=== PATIENT | male | born 1945 | race Caucasian/White ===

== ENCOUNTER 2017-04-23 20:57 | Inpatient (IN) | payer OTHER ==
[~2017-04-23] VITALS: Ht 177.8 cm; Wt 97.8 kg
[~2017-04-23 20:57] MED LIST: ASPI81TA28 PO; ATOR-26 PO; CALC500C70 PO; CITA40TA4 PO; CLOP1TAB15 PO; DILT240C48 PO; FERR1TAB23 PO; FRS/40 PO; GABA-113 PO; HYDR-4717 PO; ISOS60TA25 PO; LOSA1TAB PO; OXYC-57 PO; PANT40TA PO; TERB1CRE TD; TRIA0.1C20 TD
[2017-04-23] MEDS ORDERED: SODIUM CHLORIDE 0.9% 1000ML 1,000 ML IV STA (21:15)
[2017-04-23 21:44] LABS: BASO % 0.3 %; BASO ABS # 0.02 K/uL (0-0.2); EOS % 5.2 %; HEMATOCRIT 26.2 % (42-52); IG% 0.4 %; LYMPH % 6.5 %; LYMPH ABS # 0.47 K/uL (1.2-3.4); MEAN CELL VOLUME 89.7 fL (80-100); MEAN CORPUSCULAR HEMOGLOBIN 29.5 pg (25-34); MEAN CORPUSCULAR HGB CONC 32.8 g/dl (32-36); MEAN PLATELET VOLUME 8.7 fL (7.4-10.4); MONO % 8.1 %; NEUT % 79.5 %; PLATELET COUNT 332 K/uL (130-400); RED BLOOD COUNT 2.92 M/uL (4.7-6.1); WHITE BLOOD COUNT 7.26 K/uL (4.8-10.8)
--- NOTE | 2017-04-23 21:50 | DIAGNOSTIC IMAGING REPORT ---
CHEST ONE VIEW PORTABLE CLINICAL HISTORY: FATIGUE, DYSPNEA COMPARISON STUDY: No previous studies for comparison. FINDINGS: Lung volumes are at the lower limits of normal. There is right infrahilar fullness. Cardiac size is normal. There is no evidence of pulmonary edema. No pneumothorax or pleural effusion is present. IMPRESSION: Right hilar/infrahilar fullness. This is likely due to normal structures however PA and lateral chest radiographs are recommended to exclude airspace disease or a nodule. Electronically signed by: Virgil Pinzon M.D. 04/23/2017 9:49 PM Dictated Date/Time: 04/23/2017 9:47 PM
[2017-04-23] MEDS ORDERED: CHOL1TAB12 PO (21:59)
[2017-04-23 22:02] LABS: INR 1.1 (0.9-1.1); PARTIAL THROMBOPLASTIN RATIO 1.5; PROTHROMBIN TIME (PATIENT) 11.4 SECONDS (9.0-12.0)
[2017-04-23 22:05] LABS: BUN/CREATININE RATIO 14.7 (10-20); CALCIUM 8.4 mg/dl (8.5-10.1); CREATININE 3.7 mg/dl (0.60-1.40); MAGNESIUM 2.2 mg/dl (1.8-2.4)
--- NOTE | 2017-04-23 22:07 | EMERGENCY ROOM VISIT NOTE ---
History First contact with patient: 21:06 Chief Complaint: REFERRED BY DOCTOR Stated Complaint: KIDNEY FAILURE, TIREDNESS,ANEMIC History of Present Illness The patient is a 72 year old male who presents to the Emergency Room via private vehicle accompanied by family with complaints of "kidney failure, tiredness, anemic-referred by ". The patient states that For the past 2 weeks he has felt very tired, easily fatigued, easily winded with simple exercises, and shortness of breath. His family notes that he isn't falling asleep a lot. He also feels as though his legs are very heavy. There is decreased appetite. He denies any bleeding from orifices. He denies any chest pain. He is on Plavix. Patient also states that his family doctor states his heart was not beating right, and was to follow-up with Dr. Osullivan in the near future. He states that he also has a history of kidney failure. Review of Systems A complete 10-point Review of Systems was discussed with the patient, with pertinent positives and negatives listed in the History of Present Illness. All remaining Review of Systems questions can be considered negative unless otherwise specified. Past Medical/Surgical History Medical Problems: (1) Anemia (2) ARF (acute renal failure) Heart disease, high blood pressure, kidney disease, skin problems, ulcers, spine surgery, heart stent placement. Family History High blood pressure, cancer, lung disease, kidney disease or stones. Social History Smoking Status: Never Smoker Social History: Patient was at home with . Admits to tobacco use and denies alcohol use. Current/Historical Medications Scheduled Aspirin (Aspirin Ec), 81 MG PO NOON Atorvastatin (Lipitor), 80 MG PO HS Calcium/Vitamin D (Os-Naseem 500 Plus D), 1 TAB PO QAM Cholecalciferol (Vitamin D3), 3,000 UNITS PO DAILY Citalopram (Citalopram Hydrobromide), 40 MG PO QAM Clopidogrel (Plavix), 75 MG PO EVENING MEAL Diltiazem Hcl Coated Beads (Cartia Xt), 240 MG PO QAM Ferrous Sulfate (Iron), 325 MG PO QAM Furosemide (Lasix), 40 MG PO QAM Gabapentin (Neurontin), 300 MG PO BID Hydralazine Hcl (Apresoline), 50 MG PO TID Isosorbide Mononitrate Ext Rel (Imdur Ext Rel), 60 MG PO QAM Scheduled PRN Oxycodone/Acetaminophen 5MG/325MG (Percocet 5MG/325MG), 1-2 TABLETS PO Q4H PRN for Pain Pantoprazole (Protonix), 40 MG PO DAILY PRN for GI Upset Terbinafine Hcl (Topical) (Terbinafine Hcl), TD DAILY PRN for Itching Triamcinolone Acet 0.1% (Aristocort 0.1%), TD DAILY PRN for Itching Allergies Coded Allergies: No Known Drug Allergy (Verified Allergy, Unknown, NKDA, 12/13/16) Black Pepper (Verified Adverse Reaction, Unknown, SNEEZING, 12/13/16) Physical Exam Vital Signs Date Time Temp Pulse Resp B/P (MAP) Pulse Ox O2 Delivery O2 Flow Rate FiO2 04/24/17 00:35 78 20 143/76 97 Room Air 04/24/17 00:06 143/76 04/23/17 22:45 81 96 04/23/17 22:40 81 97 04/23/17 22:10 85 19 96 04/23/17 22:01 131/65 04/23/17 21:40 84 26 95 04/23/17 21:35 141/65 04/23/17 21:27 90 25 95 04/23/17 21:26 90 04/23/17 21:23 95 Room Air 04/23/17 21:00 36.9 99 22 138/77 95 Room Air Physical Exam VITAL SIGNS - Vital signs and nursing notes were reviewed. Patient is afebrile , blood pressure 138/77, heart rate of 99, and is saturating well on room air 95 %. GENERAL -72-year-old male appearing his stated age who is in no acute distress. Communicates well with provider and answers questions appropriately. SKIN - Without rashes. No petechial rashes. HEAD - NC/AT. EYES - PERRL with EOMI bilaterally. Sclera anicteric. Palpebral conjunctiva pink and moist with no injection noted. EARS - No deformities of external structures noted on gross examination bilaterally. No pain elicited with palpation of the tragus bilaterally. External auditory canals without discharge or otorrhea. Tympanic membranes pearly manzanares without retraction or bulging. No fluid or purulent material visualized behind the TM. Handle of malleus, umbo, cone of light, pars tensa/ flaccid all easily visualized. NOSE - Midline and without cyanosis. No epistaxis or purulent drainage noted. Septum midline without deviation or septal hematoma noted. MOUTH/OROPHARYNX - Without perioral cyanosis. Buccal mucosa pink and moist and without leukoplakia. Tongue midline with equal elevation of palate bilaterally. No tonsillar hypertrophy, erythema, or exudates noted. [] dentition noted. LUNGS - Chest wall symmetric without accessory muscle use, intercostals retractions, or central cyanosis. Normal vesicular breath sounds CTA B/L. No wheezes, rales, or rhonchi appreciated. CARDIAC - RRR with S1/S2. No murmur, rubs, or gallops appreciated. ABDOMEN - Abdominal contour without pulsations or visible masses. No tenderness , palpable masses, hepatosplenomegaly, or ascites noted. EXTREMITIES - No clubbing or peripheral cyanosis. No pretibial edema present. +5 /5 strength noted in UE/LE bilaterally. NEUROLOGIC - Cranial nerves II through XII grossly intact. Sensory intact to light touch throughout. Rectal examination was performed with patient consent. Normal examination but was found to be heme positive. Medical Decision & Procedures ER Provider Diagnostic Interpretation: CHEST ONE VIEW PORTABLE CLINICAL HISTORY: FATIGUE, DYSPNEA COMPARISON STUDY: No previous studies for comparison. FINDINGS: Lung volumes are at the lower limits of normal. There is right infrahilar fullness. Cardiac size is normal. There is no evidence of pulmonary edema. No pneumothorax or pleural effusion is present. IMPRESSION: Right hilar/infrahilar fullness. This is likely due to normal structures however PA and lateral chest radiographs are recommended to exclude airspace disease or a nodule. Electronically signed by: Virgil Pinzon M.D. 04/23/2017 9:49 PM Dictated Date/Time: 04/23/2017 9:47 PM CHEST 2 VIEWS ROUTINE CLINICAL HISTORY: Anemia, shortness of breath. COMPARISON STUDY: Portable chest radiograph performed earlier today. FINDINGS: Lung volumes are at the lower limits of normal. There is no pneumothorax or pleural effusion. Lateral view demonstrates opacity projecting over the mid thoracic spine. There is slight asymmetric right perihilar opacity. Mild cardiomegaly is noted without evidence of pulmonary edema. IMPRESSION: 1. Equivocal asymmetric right perihilar opacity and possible opacity projecting over the thoracic spine on lateral projection. The findings are low suspicion but a follow-up chest CT is recommended. 2. Mild cardiomegaly without evidence of pulmonary edema. Electronically signed by: Virigl Pinzon M.D. 04/23/2017 10:42 PM Dictated Date/Time: 04/23/2017 10:39 PM Laboratory Results 04/23/17 21:20 Red Blood Count 2.92, Mean Corpuscular Volume 89.7, Mean Corpuscular Hemoglobin 29.5, Mean Corpuscular Hemoglobin Concent 32.8, Mean Platelet Volume 8.7, Neutrophils (%) (Auto) 79.5, Lymphocytes (%) (Auto) 6.5, Monocytes (%) (Auto) 8.1, Eosinophils (%) (Auto) 5.2, Basophils (%) (Auto) 0.3, Neutrophils # (Auto) 5.77, Lymphocytes # (Auto) 0.47, Monocytes # (Auto) 0.59, Eosinophils # (Auto) 0.38, Basophils # (Auto) 0.02 04/23/17 21:20 Test 04/23/17 21:20 04/23/17 21:28 04/23/17 23:30 White Blood Count 7.26 K/uL (4.8-10.8) Red Blood Count 2.92 M/uL (4.7-6.1) Hemoglobin 8.6 g/dL (14.0-18.0) Hematocrit 26.2 % (42-52) Mean Corpuscular Volume 89.7 fL (80-100) Mean Corpuscular Hemoglobin 29.5 pg (25-34) Mean Corpuscular Hemoglobin Concent 32.8 g/dl (32-36) Platelet Count 332 K/uL (130-400) Mean Platelet Volume 8.7 fL (7.4-10.4) Neutrophils (%) (Auto) 79.5 % Lymphocytes (%) (Auto) 6.5 % Monocytes (%) (Auto) 8.1 % Eosinophils (%) (Auto) 5.2 % Basophils (%) (Auto) 0.3 % Neutrophils # (Auto) 5.77 K/uL (1.4-6.5) Lymphocytes # (Auto) 0.47 K/uL (1.2-3.4) Monocytes # (Auto) 0.59 K/uL (0.11-0.59) Eosinophils # (Auto) 0.38 K/uL (0-0.5) Basophils # (Auto) 0.02 K/uL (0-0.2) RDW Standard Deviation 49.4 fL (36.4-46.3) RDW Coefficient of Variation 14.9 % (11.5-14.5) Immature Granulocyte % (Auto) 0.4 % Immature Granulocyte # (Auto) 0.03 K/uL (0.00-0.02) Red Blood Cell Morphology Unremarkable Prothrombin Time 11.4 SECONDS (9.0-12.0) Prothromb Time International Ratio 1.1 (0.9-1.1) Activated Partial Thromboplast Time 38.5 SECONDS (21.0-31.0) Partial Thromboplastin Ratio 1.5 Anion Gap 10.0 mmol/L (3-11) Est Creatinine Clear Calc Drug Dose 21.6 ml/min Estimated GFR () 17.8 Estimated GFR (Non- 15.4 BUN/Creatinine Ratio 14.7 (10-20) Calcium Level 8.4 mg/dl (8.5-10.1) Magnesium Level 2.2 mg/dl (1.8-2.4) Total Bilirubin 0.3 mg/dl (0.2-1) Aspartate Amino Transf (AST/SGOT) 44 U/L (15-37) Alanine Aminotransferase (ALT/SGPT) 84 U/L (12-78) Alkaline Phosphatase 56 U/L (45-117) Total Protein 6.8 gm/dl (6.4-8.2) Albumin 2.6 gm/dl (3.4-5.0) Globulin 4.2 gm/dl (2.5-4.0) Albumin/Globulin Ratio 0.6 (0.9-2) Thyroid Stimulating Hormone (TSH) 0.583 uIu/ml (0.300-4.500) Bedside Troponin I < 0.030 ng/ml (0-0.045) Urine Color YELLOW Urine Appearance CLEAR (CLEAR) Urine pH 6.5 (4.5-7.5) Urine Specific [place] 1.010 (1.000-1.030) Urine Protein 1+ (NEG) Urine Glucose (UA) NEG (NEG) Urine Ketones NEG (NEG) Urine Occult Blood NEG (NEG) Urine Nitrite NEG (NEG) Urine Bilirubin NEG (NEG) Urine Urobilinogen NEG (NEG) Urine Leukocyte Esterase NEG (NEG) Urine WBC (Auto) 1-5 /hpf (0-5) Urine RBC (Auto) 0-4 /hpf (0-4) Urine Hyaline Casts (Auto) 0 /lpf (0-5) Urine Epithelial Cells (Auto) 0-5 /lpf (0-5) Urine Bacteria (Auto) NEG (NEG) Medications Administered Medications (Trade) Dose Ordered Sig/Jess Route Start Time Stop Time Status Last Admin Dose Admin Sodium Chloride 1,000 ml @ 999 mls/hr Q1H1M STAT IV 04/23/17 21:15 04/23/17 22:15 DC 04/23/17 21:32 999 MLS/HR Medical Decision Patient was seen and evaluated as above. After obtaining a thorough history and physical examination IV access was initiated and the above workup was performed. Patient presents to us today referred by his family doctor regarding his worsening anemia, symptoms associated with this as well as his elevated kidney function. Baseline labs were obtained, and bedside EKG was also obtained and revealed normal sinus rhythm. CBC reveals no leukocytosis, but hemoglobin of 8.6 is noted. Previous was found to be 9.1. Coags reveal a PTT slightly elevated. BUN high at 54, creatinine high at 3.7. Potassium within normal limits. Calcium low at 8.4. AST and ALTs are elevated. Urine unremarkable. Chest 1 view portable shows concerning equivocal area of abnormality which was suggested to be followed up with a chest 2 view which then recommended a CT. I discussed this with Dr. Lee, who was also consult for further evaluation and management for inpatient admission. I believe the patient will be benefited by staying. The patient was educated upon today's findings. In the evaluation and treatment of this patient the following differential diagnoses were entertained: Acute kidney failure, anemia, among others. Impression Primary Impression: ARF (acute renal failure) Additional Impressions: Anemia Chest x-ray abnormality Elevated AST (SGOT) Elevated ALT measurement Departure Information Dispostion Admitted as an inpatient Condition FAIR Referrals Vinod Pang D.O. (PCP) Patient Instructions My [facility] Problem Qualifiers
[2017-04-23 22:09] LABS: COMPLETE YES
[2017-04-23 22:16] LABS: ALB/GLOB RATIO 0.6 (0.9-2); THYROID STIMULATING HORMONE 0.583 uIu/ml (0.300-4.500)
--- NOTE | 2017-04-23 22:44 | DIAGNOSTIC IMAGING REPORT ---
CHEST 2 VIEWS ROUTINE CLINICAL HISTORY: Anemia, shortness of breath. COMPARISON STUDY: Portable chest radiograph performed earlier today. FINDINGS: Lung volumes are at the lower limits of normal. There is no pneumothorax or pleural effusion. Lateral view demonstrates opacity projecting over the mid thoracic spine. There is slight asymmetric right perihilar opacity. Mild cardiomegaly is noted without evidence of pulmonary edema. IMPRESSION: 1. Equivocal asymmetric right perihilar opacity and possible opacity projecting over the thoracic spine on lateral projection. The findings are low suspicion but a follow-up chest CT is recommended. 2. Mild cardiomegaly without evidence of pulmonary edema. Electronically signed by: Virgil Pinzon M.D. 04/23/2017 10:42 PM Dictated Date/Time: 04/23/2017 10:39 PM
--- NOTE | 2017-04-23 23:24 | EMERGENCY ROOM VISIT NOTE ---
ED Visit Note First contact with patient: 21:06 Staff note: I have reviewed the Patients chart and have discussed this case with my PA. I generally agree with the ED note and findings.
[2017-04-23] MEDS ORDERED: ACETAMINOPHEN 325 MG TAB PO PRN (23:30)
[2017-04-23] MEDS ORDERED: POLYETHYLENE (MIRALAX) 17 GM PACK PO PRN (23:30)
[2017-04-23] MEDS ORDERED: PANTOprazole SOD 40 MG TAB PO PRN (23:30)
[2017-04-23] MEDS ORDERED: OXYCODONE/ACETAMINOPHEN 5-325 TAB PO PRN (23:30)
[2017-04-23] MEDS ORDERED: ONDANSETRON INJ 2 MG/ML 2 ML VIAL IV PRN (23:30)
[2017-04-23] MEDS ORDERED: ALUMINUM/MAGNESIUM/SIMETH (MAALOX MAX) 30 ML UDC PO PRN (23:30)
[2017-04-23] MEDS ORDERED: MAGNESIUM HYDROXIDE SUSP 30 ML UDC PO PRN (23:30)
[2017-04-23] MEDS ORDERED: ZOLPIDEM TARTRATE 5 MG TAB PO PRN (23:30)
[2017-04-23 23:42] LABS: URINE APPEARANCE CLEAR (CLEAR); URINE BILIRUBIN NEG (NEG); URINE COLOR YELLOW; URINE EPITHELIAL CELL AUTO 0-5 /lpf (0-5); URINE NITRITE NEG (NEG); URINE PH 6.5 (4.5-7.5); UROBILINOGEN NEG (NEG); ZZUR CULT IF INDIC CLEAN CATCH NO
[2017-04-23 23:43] LABS: MANUAL MICROSCOPIC REQUIRED? NO; REVIEW REQ? NO
--- NOTE | 2017-04-24 00:56 | History and Physical ---
History & Physical Date & Time of Service: Apr 24, 2017 at 00:15 Chief Complaint: Kidney Failure, Tiredness,Anemic Primary Care Physician: Vinod Pang D.O. History of Present Illness Source: patient 72 y/o M Hx CKD 3, HTN, CAD, iron-deficient anemia. Pt has been complaining of fatigue and exertional dyspnea for at least 2 weeks. He visited his MD who obtained labs and then instructed him to attend the hospital due to worsening renal function and worsening anemia. He denies CP, denies dyspnea at rest, denies nausea, diarrhea, dysuria or fevers. It is noted that he was started on Losartan approximately 4-5 months ago. A CXR incidentally, may reveal a hilar opacity. 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 Smoking Status: Former Smoker Alcohol Use: occasionally Allergies Coded Allergies: No Known Drug Allergy (Verified Allergy, Unknown, NKDA, 12/13/16) Black Pepper (Verified Adverse Reaction, Unknown, SNEEZING, 12/13/16) Home Medications Scheduled Aspirin (Aspirin Ec), 81 MG PO NOON Atorvastatin (Lipitor), 80 MG PO HS Calcium/Vitamin D (Os-Naseem 500 Plus D), 1 TAB PO QAM Cholecalciferol (Vitamin D3), 3,000 UNITS PO DAILY Citalopram (Citalopram Hydrobromide), 40 MG PO QAM Clopidogrel (Plavix), 75 MG PO EVENING MEAL Diltiazem Hcl Coated Beads (Cartia Xt), 240 MG PO QAM Ferrous Sulfate (Iron), 325 MG PO QAM Furosemide (Lasix), 40 MG PO QAM Gabapentin (Neurontin), 300 MG PO BID Hydralazine Hcl (Apresoline), 50 MG PO TID Isosorbide Mononitrate Ext Rel (Imdur Ext Rel), 60 MG PO QAM Scheduled PRN Oxycodone/Acetaminophen 5MG/325MG (Percocet 5MG/325MG), 1-2 TABLETS PO Q4H PRN for Pain Pantoprazole (Protonix), 40 MG PO DAILY PRN for GI Upset Terbinafine Hcl (Topical) (Terbinafine Hcl), TD DAILY PRN for Itching Triamcinolone Acet 0.1% (Aristocort 0.1%), TD DAILY PRN for Itching Review of Systems Constitutional: + weakness, + fatigue, No fever, No chills, No sweats Eyes: No worsening of vision ENT: No hearing loss, No unusual epistaxis, No nasal symptoms Respiratory: + shortness of breath, + dyspnea at rest, No cough, No sputum, No wheezing, No dyspnea on exertion Cardiovascular: No chest pain, No orthopnea, No PND Abdomen: No nausea, No vomiting Musculoskeletal: No joint pain, No muscle pain Genitourinary - Male: No hematuria, No dysuria Neurologic: No memory loss, No paralysis, No weakness Psychiatric: No depression symptoms Endocrine: + fatigue Hematologic / Lymphatic: No abnormal bleeding/bruising Integumentary: No rash Allergic / Immunologic: No environmental allergies Physical Exam Vital Signs Date Time Temp Pulse Resp B/P (MAP) Pulse Ox O2 Delivery O2 Flow Rate FiO2 04/23/17 22:40 81 97 04/23/17 22:10 85 19 96 04/23/17 22:01 131/65 04/23/17 21:40 84 26 95 04/23/17 21:35 141/65 04/23/17 21:27 90 25 95 04/23/17 21:26 90 04/23/17 21:23 95 Room Air 04/23/17 21:00 36.9 99 22 138/77 95 Room Air General Appearance: WD/WN, no apparent distress Head: normocephalic Eyes: normal inspection ENT: normal ENT inspection, hearing grossly normal, TMs normal Neck: supple, no JVD Respiratory/Chest: chest non-tender, lungs clear, normal breath sounds Cardiovascular: regular rate, rhythm, no edema, no gallop Abdomen/GI: normal bowel sounds, non tender, soft Back: normal inspection, no CVA tenderness, no muscle spasm, normal range of motion Extremities/Musculoskelatal: normal inspection, no calf tenderness, normal range of motion Neurologic/Psych: coffee blender II-XII nml as tested, no motor/sensory deficits, alert, oriented x 3 Skin: normal color, warm/dry, no rash Diagnostics Laboratory Results Results Past 24 Hours Test 04/23/17 21:20 04/23/17 21:28 04/23/17 23:30 Range/Units White Blood Count 7.26 4.8-10.8 K/uL Red Blood Count 2.92 4.7-6.1 M/uL Hemoglobin 8.6 14.0-18.0 g/dL Hematocrit 26.2 42-52 % Mean Corpuscular Volume 89.7 80-100 fL Mean Corpuscular Hemoglobin 29.5 25-34 pg Mean Corpuscular Hemoglobin Concent 32.8 32-36 g/dl Platelet Count 332 130-400 K/uL Mean Platelet Volume 8.7 7.4-10.4 fL Neutrophils (%) (Auto) 79.5 % Lymphocytes (%) (Auto) 6.5 % Monocytes (%) (Auto) 8.1 % Eosinophils (%) (Auto) 5.2 % Basophils (%) (Auto) 0.3 % Neutrophils # (Auto) 5.77 1.4-6.5 K/uL Lymphocytes # (Auto) 0.47 1.2-3.4 K/uL Monocytes # (Auto) 0.59 0.11-0.59 K/uL Eosinophils # (Auto) 0.38 0-0.5 K/uL Basophils # (Auto) 0.02 0-0.2 K/uL RDW Standard Deviation 49.4 36.4-46.3 fL RDW Coefficient of Variation 14.9 11.5-14.5 % Immature Granulocyte % (Auto) 0.4 % Immature Granulocyte # (Auto) 0.03 0.00-0.02 K/uL Red Blood Cell Morphology Unremarkable Prothrombin Time 11.4 9.0-12.0 SECONDS Prothromb Time International Ratio 1.1 0.9-1.1 Activated Partial Thromboplast Time 38.5 21.0-31.0 SECONDS Partial Thromboplastin Ratio 1.5 Sodium Level 138 136-145 mmol/L Potassium Level 4.0 3.5-5.1 mmol/L Chloride Level 106 98-107 mmol/L Carbon Dioxide Level 22 21-32 mmol/L Anion Gap 10.0 3-11 mmol/L Blood Urea Nitrogen 54 7-18 mg/dl Creatinine 3.70 0.60-1.40 mg/dl Est Creatinine Clear Calc Drug Dose 21.6 ml/min Estimated GFR () 17.8 Estimated GFR (Non- 15.4 BUN/Creatinine Ratio 14.7 10-20 Random Glucose 120 70-99 mg/dl Calcium Level 8.4 8.5-10.1 mg/dl Magnesium Level 2.2 1.8-2.4 mg/dl Total Bilirubin 0.3 0.2-1 mg/dl Aspartate Amino Transf (AST/SGOT) 44 15-37 U/L Alanine Aminotransferase (ALT/SGPT) 84 12-78 U/L Alkaline Phosphatase 56 45-117 U/L Total Protein 6.8 6.4-8.2 gm/dl Albumin 2.6 3.4-5.0 gm/dl Globulin 4.2 2.5-4.0 gm/dl Albumin/Globulin Ratio 0.6 0.9-2 Thyroid Stimulating Hormone (TSH) 0.583 0.300-4.500 uIu/ml Bedside Troponin I < 0.030 0-0.045 ng/ml Urine Color YELLOW Urine Appearance CLEAR CLEAR Urine pH 6.5 4.5-7.5 Urine Specific [place] 1.010 1.000-1.030 Urine Protein 1+ NEG Urine Glucose (UA) NEG NEG Urine Ketones NEG NEG Urine Occult Blood NEG NEG Urine Nitrite NEG NEG Urine Bilirubin NEG NEG Urine Urobilinogen NEG NEG Urine Leukocyte Esterase NEG NEG Urine WBC (Auto) 1-5 0-5 /hpf Urine RBC (Auto) 0-4 0-4 /hpf Urine Hyaline Casts (Auto) 0 0-5 /lpf Urine Epithelial Cells (Auto) 0-5 0-5 /lpf Urine Bacteria (Auto) NEG NEG Diagnostic Radiology CXR 1. Equivocal asymmetric right perihilar opacity and possible opacity projecting over the thoracic spine on lateral projection. The findings are low suspicion but a follow-up chest CT is recommended. 2. Mild cardiomegaly without evidence of pulmonary edema. EKG NSR Normal EKG Impression Assessment and Plan 72 y/o M Hx CKD 3, HTN, CAD, iron-deficient anemia. Pt has been complaining of fatigue and exertional dyspnea for at least 2 weeks. He visited his MD who obtained labs and then instructed him to attend the hospital due to worsening renal function and worsening anemia. He denies CP, denies dyspnea at rest, denies nausea, diarrhea, dysuria or fevers. It is noted that he was started on Losartan approximately 4-5 months ago. A CXR incidentally, may reveal a hilar opacity. 1) Progressive renal failure - May be progression of CKD - less likely acute as his K is WNL. May be related to Losartan use or possibly overdiuresis with Lasix as well. 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 BMP will be trended AM and we will obtain urine lytes to help determine if there is a prerenal element. 2) Worsening anemia - There has not rashmi a significant decline sine 06/23 - this was diagnosed as iron-deficiency anemia previously and he has required infusions in addition to oral supplementation. He may now be suffering the effects of worsening renal function and require EPO. We will repeat iron studies and trend his Hb. He is weakly guiac +, however, he takes Plavix and ASA daily - the anemia is normocytic and less likely due to blood loss. ASA and Plavix held pending AM labs. 3) Weakness - exertional dyspnea - may be the effect of progressive anemia. We will obtain an echo and if there is no evidence of a reduced EF, would consider a transfusion prior to DC. 4) Opacity on CXR - Although this is not likely to be related, it should probably be investigated further due to complaints of SOB. We will obtain a CT chest as recommended 5) CAD - EKG is WNL and he has not reported CP - ASA and Plavix should be restarted when possible - cont Imdur and a Statin 6) HTN - cont Norvasc, Hydralazine Full code - SCDs pending AM labs Total time for this admit including review of labs, meds, EKG - discussion with pt and ER attending - 39 min Level of Care Med/Surg Resuscitation Status FULL RESUSCITATION VTE Prophylaxis VTE Risk Assessment Done? Y/N: Yes Risk Level: Moderate Given or contraindicated: Unfractionated heparin SQ
[2017-04-24 01:00] VITALS: BP 160/76; PULSE 79; TEMP 36.8; O2SAT 95; Ht 177.8 cm; Wt 97.8 kg
[2017-04-24] MEDS: SODIUM CHLORIDE 0.9% 1000ML 1,000 ML IV SCH ×2 (01:44→10:29)
[2017-04-24 06:47] LABS: HEMATOCRIT 26.8 % (42-52); MEAN CELL VOLUME 90.5 fL (80-100); MEAN CORPUSCULAR HEMOGLOBIN 29.1 pg (25-34); MEAN CORPUSCULAR HGB CONC 32.1 g/dl (32-36); MEAN PLATELET VOLUME 8.2 fL (7.4-10.4); PLATELET COUNT 320 K/uL (130-400); RED BLOOD COUNT 2.96 M/uL (4.7-6.1); WHITE BLOOD COUNT 5.02 K/uL (4.8-10.8)
[2017-04-24 07:12] LABS: TOTAL IRON BINDING CAPACITY 165 mcg/dl (250-450)
[2017-04-24 07:13] LABS: BUN/CREATININE RATIO 15.4 (10-20); CALCIUM 8.1 mg/dl (8.5-10.1); CREATININE 3.2 mg/dl (0.60-1.40); MAGNESIUM 2.2 mg/dl (1.8-2.4); POTASSIUM 4.3 mmol/L (3.5-5.1)
[2017-04-24 07:14] LABS: PHOSPHORUS 4.1 mg/dl (2.5-4.9)
[2017-04-24 07:21] VITALS: BP 127/62; PULSE 63; TEMP 36.6; O2SAT 96
--- NOTE | 2017-04-24 07:35 | DIAGNOSTIC IMAGING REPORT ---
(CHEST) THORAX WITHOUT CLINICAL HISTORY: 72 years-old Male presenting with mass. TECHNIQUE: Multidetector CT angiography was performed without the use of intravenous contrast. IV contrast: None. COMPARISON: Chest x-ray from 04/23/2017. CT DOSE: The estimated cumulative dose is 769.58 mGy.cm. FINDINGS: [employer] topogram: Unremarkable. On soft tissue windows, normal thyroid and thoracic inlet. Numerous prominent subcentimeter axillary lymph nodes. Additionally, enlarged mediastinal lymph nodes measuring up to 12 mm in short axis in the precarinal and right paratracheal regions (series 2 image 21 and image 8) disease. Minimal aortic atherosclerosis. Mild multichamber enlargement of the heart. The intraventricular blood flow is slightly less dense than the adjacent myocardium suggesting anemia. Coronary artery and aortic valve calcification. No pericardial effusion. Trace right pleural effusion. Upper abdomen unremarkable. On lung windows, diffuse predominantly peripheral and dependent consolidation in the right lower lobe with associated bronchial wall thickening and scattered intervening groundglass opacity. Overall volume of the right lower lobe is preserved. Numerous scattered nodules predominantly in the left lower lobe. Limited tree-in-bud opacities noted in the lingula. Calcified lesion in the lingula, which may contain soft tissue or fat (series 4 image 164), either hamartoma or calcified granuloma. Mild bronchial wall thickening also noted in the right upper lobe. On bone windows, mild degenerative changes of the thoracic spine. Subacute rib fracture of the right anterior seventh rib. IMPRESSION: 1. Bronchopneumonia primarily affecting the right lower lobe. Endobronchial spread of infection is suspected in the left lower lobe and to a lesser degree the lingula. 2. Prominent mediastinal lymph nodes are likely reactive. 3. Trace parapneumonic right effusion. 4. Mild cardiomegaly. 5. Subacute fracture of the right anterior seventh rib. Electronically signed by: Vasiliy Perdomo M.D. 04/24/2017 7:33 AM Dictated Date/Time: 04/24/2017 7:23 AM
[2017-04-24] MEDS: GABAPENTIN 300 MG CAP PO SCH ×2 (08:25→20:57)
[2017-04-24] MEDS: DILTIAZEM HCL 240 MG CAPCR PO SCH (08:25)
[2017-04-24] MEDS: ISOSORBIDE MONONITRATE 60 MG TABCR PO SCH (08:25)
[2017-04-24] MEDS: CITALOPRAM 40 MG TAB PO SCH (08:25)
[2017-04-24] MEDS: AMPICILLIN/SULBACTAM SOD INJ 3,000 MG in SODIUM CHLORIDE 0.9% 100ML 100 ML IV SCH ×3 (10:29→21:32)
--- NOTE | 2017-04-24 11:48 | Nephrology Consultation ---
Nephrology Consultation Date & Providers Date of Consultation: Apr 24, 2017. Primary Care Provider: Vinod Pang D.O. Referring Provider: Reason for Consultation Evaluation management for acute kidney injury with history of chronic kidney disease. History of Present Illness Manuel is a 72-year-old gentlemen with past medical history significant for stage IIIB/4 chronic kidney disease, hypertension, coronary artery disease, chronic anemia admit to the hospital with acute kidney injury and anemia. Nephrologic consult was requested for further evaluation management. Electronic medical records were reviewed in detail during patient's visit. Manuel has stage IIIB/4 chronic kidney disease, secondary to microvascular disease and prior heavy NSAID use, baseline creatinine has been around 2.2-2.4, over the year had several episodes of acute kidney injury. Has low grade proteinuria. Last few days at home he has not been feeling well, was having fatigue, getting short of breath easy, difficulty sleeping, poor appetite and overall unwell. He went to see his primary care physician and referred to hospital for admission and further management. On admission his creatinine was 3.7, which improved this morning to 3.2. At home he was on Lasix 40 daily and losartan 50 milligram daily which has been on hold since admission. He has been getting IV fluid since admission, currently getting normal saline at 100 mL/hour. No significant hypotensive episode. CT chest was concerning for right sided bronchopneumonia and he was started on IV Unasyn this morning. His hemoglobin was 8.6 which remained stable. He has history of chronic anemia previously had workup including EGD and colonoscopy and found to have hiatus hernia however there was no active bleeding. Previously had iron deficiency anemia and received Venofer. there was plan to go to [facility] and get capsule endoscopy which was not done. Has history of peripheral vascular disease has been following with [facility] vascular team and previously had bypass surgery. Currently he is overall feeling better, denied any shortness of breath or chest pain. No fever or chills overnight. Allergies Coded Allergies: No Known Drug Allergy (Verified Allergy, Unknown, NKDA, 12/13/16) Black Pepper (Verified Adverse Reaction, Unknown, SNEEZING, 12/13/16) Inpatient Medications Current Inpatient Medications Medications (Trade) Dose Ordered Sig/Jess Route Start Time Stop Time Status Last Admin Dose Admin Atorvastatin Calcium (Lipitor Tab) 80 mg HS PO 04/24/17 21:00 8/17/17 20:59 Citalopram Hydrobromide (celeXA TAB) 40 mg QAM PO 04/24/17 09:00 05/24/17 08:59 04/24/17 08:25 40 MG Diltiazem HCl (Cardizem Cd Cap) 240 mg QAM PO 04/24/17 09:00 05/24/17 08:59 04/24/17 08:25 240 MG Gabapentin (Neurontin Cap) 300 mg BID PO 04/24/17 09:00 05/24/17 08:59 04/24/17 08:25 300 MG Hydralazine HCl (Apresoline Tab) 50 mg TID PO 04/24/17 09:00 05/24/17 08:59 04/24/17 08:25 50 MG Isosorbide Mononitrate (Imdur Ext Rel Tab) 60 mg QAM PO 04/24/17 09:00 05/24/17 08:59 04/24/17 08:25 60 MG Oxycodone/ Acetaminophen (Percocet 5-325mg Tab) 1 tab Q4H PRN PO 04/23/17 23:30 05/07/17 23:29 Pantoprazole Sodium (Protonix Tab) 40 mg DAILY PRN PO 04/23/17 23:30 05/23/17 23:29 Acetaminophen (Tylenol Tab) 650 mg Q4H PRN PO 04/23/17 23:30 05/23/17 23:29 Al Hydrox/Mg Hydrox/Simethicone (Maalox Max Susp) 15 ml Q4H PRN PO 04/23/17 23:30 05/23/17 23:29 Magnesium Hydroxide (Milk Of Magnesia Susp) 30 ml Q6H PRN PO 04/23/17 23:30 05/23/17 23:29 Polyethylene (Miralax Powder Packet) 17 gm DAILY PRN PO 04/23/17 23:30 05/23/17 23:29 Zolpidem Tartrate (Ambien Tab) 5 mg HSZ PRN PO 04/23/17 23:30 05/23/17 23:29 Ondansetron HCl (Zofran Inj) 4 mg Q6H PRN IV 04/23/17 23:30 05/23/17 23:29 Sodium Chloride 1,000 ml @ 100 mls/hr Q10H IV 04/24/17 00:15 04/24/17 20:14 04/24/17 01:44 100 MLS/HR Ampicillin Sodium/ Sulbactam Sodium 3000 mg/Sodium Chloride 108 ml @ 200 mls/hr Q6H IV 04/24/17 09:00 05/01/17 08:59 UNV Social History Smoking Status: Never Smoker Alcohol Use: occasionally Review of Systems A complete review of systems was performed. Pertinent positives are noted above. All other systems are negative. Physical Exam Date Time Temp Pulse Resp B/P (MAP) Pulse Ox O2 Delivery O2 Flow Rate FiO2 04/24/17 07:21 36.6 63 16 127/62 (83) 96 Room Air 04/24/17 01:00 36.8 79 20 160/76 95 Room Air 04/24/17 00:35 78 20 143/76 97 Room Air 04/24/17 00:06 143/76 04/23/17 22:45 81 96 04/23/17 22:40 81 97 04/23/17 22:10 85 19 96 04/23/17 22:01 131/65 04/23/17 21:40 84 26 95 04/23/17 21:35 141/65 04/23/17 21:27 90 25 95 04/23/17 21:26 90 04/23/17 21:23 95 Room Air 04/23/17 21:00 36.9 99 22 138/77 95 Room Air GENERAL: Elderly male AAA x 3, pleasant, pale-appearing, not in any distress. HEENT: Atraumatic, normocephalic. NECK: Supple, no JVD, no carotid bruit appreciated. ENT: No sinus tenderness MOUTH and THROAT: Moist oral mucosa, no oral ulcer or pharyngeal erythema RESPIRATORY: Normal breathing efforts, no accessory muscle use, clear to auscultation bilaterally, no wheezes or rales. CARDIOVASCULAR: S1, S2 normal, rate rhythm regular. ABDOMEN: Soft, nontender, positive bowel sound. MUSCULOSKELETAL: No CVA tenderness. No joint swelling, erythema or tenderness. Normal range of motion. SKIN: No skin rash EXTREMITY: trace bilateral lower extremity edema NEURO: No gross focal neurological deficit, speech fluent. PSYCHIATRY: Normal mood and judgment Laboratory Results Last 24 Hours Test 04/23/17 21:20 04/23/17 21:28 04/23/17 23:30 04/24/17 06:00 White Blood Count 7.26 K/uL Red Blood Count 2.92 M/uL Hemoglobin 8.6 g/dL Hematocrit 26.2 % Mean Corpuscular Volume 89.7 fL Mean Corpuscular Hemoglobin 29.5 pg Mean Corpuscular Hemoglobin Concent 32.8 g/dl Platelet Count 332 K/uL Mean Platelet Volume 8.7 fL Neutrophils (%) (Auto) 79.5 % Lymphocytes (%) (Auto) 6.5 % Monocytes (%) (Auto) 8.1 % Eosinophils (%) (Auto) 5.2 % Basophils (%) (Auto) 0.3 % Neutrophils # (Auto) 5.77 K/uL Lymphocytes # (Auto) 0.47 K/uL Monocytes # (Auto) 0.59 K/uL Eosinophils # (Auto) 0.38 K/uL Basophils # (Auto) 0.02 K/uL RDW Standard Deviation 49.4 fL RDW Coefficient of Variation 14.9 % Immature Granulocyte % (Auto) 0.4 % Immature Granulocyte # (Auto) 0.03 K/uL Red Blood Cell Morphology Unremarkable Prothrombin Time 11.4 SECONDS Prothromb Time International Ratio 1.1 Activated Partial Thromboplast Time 38.5 SECONDS Partial Thromboplastin Ratio 1.5 Sodium Level 138 mmol/L Potassium Level 4.0 mmol/L Chloride Level 106 mmol/L Carbon Dioxide Level 22 mmol/L Anion Gap 10.0 mmol/L Blood Urea Nitrogen 54 mg/dl Creatinine 3.70 mg/dl Est Creatinine Clear Calc Drug Dose 21.6 ml/min Estimated GFR () 17.8 Estimated GFR (Non- 15.4 BUN/Creatinine Ratio 14.7 Random Glucose 120 mg/dl Calcium Level 8.4 mg/dl Magnesium Level 2.2 mg/dl Total Bilirubin 0.3 mg/dl Aspartate Amino Transf (AST/SGOT) 44 U/L Alanine Aminotransferase (ALT/SGPT) 84 U/L Alkaline Phosphatase 56 U/L Total Protein 6.8 gm/dl Albumin 2.6 gm/dl Globulin 4.2 gm/dl Albumin/Globulin Ratio 0.6 Thyroid Stimulating Hormone (TSH) 0.583 uIu/ml Bedside Troponin I < 0.030 ng/ml Urine Color YELLOW Urine Appearance CLEAR Urine pH 6.5 Urine Specific [place] 1.010 Urine Protein 1+ Urine Glucose (UA) NEG Urine Ketones NEG Urine Occult Blood NEG Urine Nitrite NEG Urine Bilirubin NEG Urine Urobilinogen NEG Urine Leukocyte Esterase NEG Urine WBC (Auto) 1-5 /hpf Urine RBC (Auto) 0-4 /hpf Urine Hyaline Casts (Auto) 0 /lpf Urine Epithelial Cells (Auto) 0-5 /lpf Urine Bacteria (Auto) NEG Urine Random Creatinine 37.0 mg/dl Urine Random Sodium 62 mEq/L Test 04/24/17 06:27 White Blood Count 5.02 K/uL Red Blood Count 2.96 M/uL Hemoglobin 8.6 g/dL Hematocrit 26.8 % Mean Corpuscular Volume 90.5 fL Mean Corpuscular Hemoglobin 29.1 pg Mean Corpuscular Hemoglobin Concent 32.1 g/dl RDW Standard Deviation 50.7 fL RDW Coefficient of Variation 15.2 % Platelet Count 320 K/uL Mean Platelet Volume 8.2 fL Sodium Level 141 mmol/L Potassium Level 4.3 mmol/L Chloride Level 113 mmol/L Carbon Dioxide Level 21 mmol/L Anion Gap 7.0 mmol/L Blood Urea Nitrogen 49 mg/dl Creatinine 3.20 mg/dl Est Creatinine Clear Calc Drug Dose 25.0 ml/min Estimated GFR () 21.3 Estimated GFR (Non- 18.3 BUN/Creatinine Ratio 15.4 Random Glucose 96 mg/dl Calcium Level 8.1 mg/dl Phosphorus Level 4.1 mg/dl Magnesium Level 2.2 mg/dl Iron Level 27 mcg/dl Total Iron Binding Capacity 165 mcg/dl Impression (1) ARF (acute renal failure) (2) Metabolic acidosis (3) Anemia (4) Chronic renal disease, stage IV (5) Hypertension Manuel is a 72-year-old gentlemen with stage IIIB/4 chronic kidney disease, hypertension, coronary artery disease, chronic anemia admitted to the hospital with at acute kidney injury and worsening anemia and overall feeling unwell for few days. Acute kidney injury could be hemodynamically mediated, creatinine started to improve, on admission was 3.7 which improved to 3.2 this morning, other electrolyte stable. Baseline creatinine has been around 2.2-2.4, has history of low grade proteinuria. Has been on losartan 50 milligram daily which has been on hold. He was on Lasix 40 milligram daily which has been on hold since admission. Has history of chronic anemia previously had GI workup including EGD and colonoscopy, found to have hiatus hernia and has been on Protonix. Previously was treated with Venofer for iron deficiency. Fatigue, shortness of breath and overall feeling unwell could be secondary to progressive renal impairment, AK I and anemia. Recommendations --continue on normal saline for now however need to monitor volume status closely. --check ferritin, will give 1 dose of Venofer and Epogen [id number] units --Previously had EGD and colonoscopy in 2016 and there was plan to have capsule endoscopy at [place] however he did not have it done. May need GI evaluation if hemoglobin continues to be low --will monitor renal function with daily renal panel, expect renal function to slowly improve however with patient's underlying advanced CKD creatinine may settle somewhere around 3. Discussed in detail with the patient's about future renal replacement therapy options and preparation for dialysis as patient may need dialysis in next few months if not sooner. -- Will repeat bicarb and check phosphate in a.m., if bicarb less than 22, will start on sodium bicarb Thank you for allowing me to participate in your patient's care. It was a pleasure to see Manuel This chart was completed utilizing [employer] Speech and voice recognition software. Grammatical errors, random word insertions, pronoun errors and incomplete sentences are occasional consequences of this system. Any questions or concerns about the content, text or information contained within the body of this dictation should be addressed directly to the physician for clarification.
[2017-04-24] MEDS: IRON SUCROSE INJ 200 MG in SODIUM CHLORIDE 0.9% 100ML 100 ML IV SCH (12:19)
[2017-04-24 12:27] VITALS: BP 119/42; PULSE 71
[2017-04-24] MEDS ORDERED: EPOETIN ALFA 20,000 UNITS/ML VIAL SQ ONE (12:30)
[2017-04-24 15:14] VITALS: BP 143/69; PULSE 71; TEMP 37; O2SAT 95
--- NOTE | 2017-04-24 15:50 | ECHOCARDIOGRAM REPORT ---
*NOTICE TO RECEIVING [employer] This information is strictly Confidential and protected under [place] law. [place] law prohibits you from making any further disclosure of this information unless further disclosure is expressly permitted by the written consent of the person to whom it pertains or is authorized by law. A general authorization for the release of medical or other information is not sufficient for this purpose. Hospital accepts no responsibility if the information is made available to any other person, INCLUDING THE PATIENT. Interpretation Summary * Name: MEG FINK Study Date: 04/24/2017 07:10 AM BP: 160/76 mmHg * Patient Location: .[id number]\W255\S\2 HR: 78 * : 1945 (M/d/yyy) Gender: Male Height: 70 in * Age: 72 yrs Ethnicity: [place] Weight: 225 lb * Ordering Physician: Prudencio Lee * Referring Physician: Self, Referred * Performed By: Naya Steven RCS * * Reason For Study: Exertional Dyspnea * BSA: 2.2 m2 * -- Conclusions -- * The left ventricle is borderline dilated. * Left ventricular systolic function is low normal. * Grade I diastolic dysfunction, (abnormal relaxation pattern). * There are regional wall motion abnormalities as specified. * There is mild to moderate mitral regurgitation. Procedure Details * Left Ventricle The left ventricle is borderline dilated. There is normal left ventricular wall thickness. Ejection Fraction = 50-55%. Left ventricular systolic function is low normal. Grade I diastolic dysfunction, (abnormal relaxation pattern). The anterior apex appears mildly hypokinetic There are regional wall motion abnormalities as specified. * Right Ventricle The right ventricle is not well visualized. * Atria The left atrial size is normal. Right atrial size is normal. * Mitral Valve The mitral valve is grossly normal. There is mild to moderate mitral regurgitation. * Tricuspid Valve The tricuspid valve is not well visualized. Significant tricuspid regurgitation is absent. * Aortic Valve The aortic valve is not well visualized. No hemodynamically significant valvular aortic stenosis. No aortic regurgitation is present. * Great Vessels The aortic root is normal size. * Pericardium/Pleural There is no pericardial effusion. * * MMode 2D Measurements and Calculations * IVSd 0.82 cm * * LVIDd 5.5 cm * LVIDs 3.4 cm * LVPWd 1.0 cm * * IVS/LVPW 0.81 * FS 38.2 % * EDV(Teich) 150.2 ml * ESV(Teich) 48.4 ml * EF(Teich) 67.8 % * * EDV(cubed) 170.5 ml * ESV(cubed) 40.3 ml * EF(cubed) 76.4 % * * LV mass(C)d 193.1 grams * LV mass(C)dI 88.0 grams/m\S\2 * * SV(Teich) 101.8 ml * SI(Teich) 46.4 ml/m\S\2 * SV(cubed) 130.2 ml * SI(cubed) 59.3 ml/m\S\2 * * Ao root diam 3.3 cm * Ao root area 8.4 cm\S\2 * * LVOT diam 2.4 cm * LVOT area 4.6 cm\S\2 * * LVAd ap4 39.4 cm\S\2 * LVLd ap4 9.4 cm * EDV(MOD-sp4) 136.0 ml * LVAs ap4 23.0 cm\S\2 * LVLs ap4 7.5 cm * ESV(MOD-sp4) 60.3 ml * EF(MOD-sp4) 55.7 % * * LVAd ap2 35.4 cm\S\2 * LVLd ap2 9.1 cm * EDV(MOD-sp2) 116.0 ml * LVAs ap2 21.3 cm\S\2 * LVLs ap2 7.7 cm * ESV(MOD-sp2) 52.4 ml * EF(MOD-sp2) 54.8 % * * SV(MOD-sp4) 75.7 ml * SI(MOD-sp4) 34.5 ml/m\S\2 * * SV(MOD-sp2) 63.6 ml * SI(MOD-sp2) 29.0 ml/m\S\2 * * * Doppler Measurements and Calculations * Ao V2 max 167.6 cm/sec * Ao max PG 11.2 mmHg * Ao max PG (full) 8.2 mmHg * DEWAYNE(V,A) 2.4 cm\S\2 * DEWAYNE(V,D) 2.4 cm\S\2 * * LV V1 max PG 3.0 mmHg * * LV V1 max 86.8 cm/sec * * *
[2017-04-24 16:10] VITALS: O2SAT 95
[2017-04-24] MEDS: ATORVASTATIN 40 MG TAB PO SCH (20:58)
--- NOTE | 2017-04-24 22:31 | Hospitalist Progress Note ---
Hospitalist Progress Note Date of Service Apr 24, 2017. Subjective Pt evaluation today including: conversation w/ patient Patient feeling better still weak All Other Systems: Reviewed and Negative Medications Medications (Trade) Dose Ordered Sig/Jess Route Start Time Stop Time Status Last Admin Dose Admin Atorvastatin Calcium (Lipitor Tab) 80 mg HS PO 04/24/17 21:00 05/24/17 20:59 04/24/17 20:58 80 MG Citalopram Hydrobromide (celeXA TAB) 40 mg QAM PO 04/24/17 09:00 05/24/17 08:59 04/24/17 08:25 40 MG Diltiazem HCl (Cardizem Cd Cap) 240 mg QAM PO 04/24/17 09:00 05/24/17 08:59 04/24/17 08:25 240 MG Gabapentin (Neurontin Cap) 300 mg BID PO 04/24/17 09:00 05/24/17 08:59 04/24/17 20:57 300 MG Hydralazine HCl (Apresoline Tab) 50 mg TID PO 04/24/17 09:00 05/24/17 08:59 04/24/17 20:58 50 MG Isosorbide Mononitrate (Imdur Ext Rel Tab) 60 mg QAM PO 04/24/17 09:00 05/24/17 08:59 04/24/17 08:25 60 MG Sodium Chloride 1,000 ml @ 100 mls/hr Q10H IV 04/24/17 00:15 04/24/17 20:14 DC 04/24/17 10:29 100 MLS/HR Ampicillin Sodium/ Sulbactam Sodium 3000 mg/Sodium Chloride 108 ml @ 200 mls/hr Q6H IV 04/24/17 10:00 05/01/17 09:59 04/24/17 21:32 200 MLS/HR Iron Sucrose 200 mg/Sodium Chloride 110 ml @ 420 mls/hr Q48H IV 04/24/17 13:00 05/02/17 13:16 04/24/17 12:19 420 MLS/HR Epoetin Prakash (Procrit Inj) 20,000 units ONE ONCE SQ 04/24/17 12:30 04/24/17 12:31 DC 04/24/17 12:23 20,000 UNITS Objective Vital Signs Date Time Temp Pulse Resp B/P (MAP) Pulse Ox O2 Delivery O2 Flow Rate FiO2 04/24/17 16:10 95 Room Air 04/24/17 15:14 37.0 71 20 143/69 (93) 95 Room Air 04/24/17 12:27 71 119/42 (67) 04/24/17 11:44 Room Air 04/24/17 07:21 36.6 63 16 127/62 (83) 96 Room Air 04/24/17 01:00 36.8 79 20 160/76 95 Room Air 04/24/17 00:35 78 20 143/76 97 Room Air 04/24/17 00:06 143/76 04/23/17 22:45 81 96 04/23/17 22:40 81 97 Physical Exam General Appearance: no apparent distress Eyes: normal inspection Neck: supple Respiratory/Chest: lungs clear Cardiovascular: regular rate, rhythm Abdomen: normal bowel sounds, non tender Extremities: normal range of motion Laboratory Results Last 24 Hours Test 04/23/17 23:30 04/24/17 06:00 04/24/17 06:27 Urine Color YELLOW Urine Appearance CLEAR Urine pH 6.5 Urine Specific [place] 1.010 Urine Protein 1+ Urine Glucose (UA) NEG Urine Ketones NEG Urine Occult Blood NEG Urine Nitrite NEG Urine Bilirubin NEG Urine Urobilinogen NEG Urine Leukocyte Esterase NEG Urine WBC (Auto) 1-5 /hpf Urine RBC (Auto) 0-4 /hpf Urine Hyaline Casts (Auto) 0 /lpf Urine Epithelial Cells (Auto) 0-5 /lpf Urine Bacteria (Auto) NEG Urine Random Creatinine 37.0 mg/dl Urine Random Sodium 62 mEq/L White Blood Count 5.02 K/uL Red Blood Count 2.96 M/uL Hemoglobin 8.6 g/dL Hematocrit 26.8 % Mean Corpuscular Volume 90.5 fL Mean Corpuscular Hemoglobin 29.1 pg Mean Corpuscular Hemoglobin Concent 32.1 g/dl RDW Standard Deviation 50.7 fL RDW Coefficient of Variation 15.2 % Platelet Count 320 K/uL Mean Platelet Volume 8.2 fL Sodium Level 141 mmol/L Potassium Level 4.3 mmol/L Chloride Level 113 mmol/L Carbon Dioxide Level 21 mmol/L Anion Gap 7.0 mmol/L Blood Urea Nitrogen 49 mg/dl Creatinine 3.20 mg/dl Est Creatinine Clear Calc Drug Dose 25.0 ml/min Estimated GFR () 21.3 Estimated GFR (Non- 18.3 BUN/Creatinine Ratio 15.4 Random Glucose 96 mg/dl Calcium Level 8.1 mg/dl Phosphorus Level 4.1 mg/dl Magnesium Level 2.2 mg/dl Iron Level 27 mcg/dl Total Iron Binding Capacity 165 mcg/dl Assessment and Plan (1) Anemia Assessment & Plan: Nephrology input appreciated IV iron started (2) Hypertension Assessment & Plan: Continue present medications (3) Chronic renal disease, stage IV Assessment & Plan: IV hydration
[2017-04-25 00:08] VITALS: BP 164/75; PULSE 89; TEMP 36.9; O2SAT 95
[2017-04-25] MEDS: AMPICILLIN/SULBACTAM SOD INJ 3,000 MG in SODIUM CHLORIDE 0.9% 100ML 100 ML IV SCH ×4 (03:37→21:47)
[2017-04-25 07:04] LABS: HEMATOCRIT 26.9 % (42-52); MEAN CORPUSCULAR HEMOGLOBIN 29.8 pg (25-34); MEAN CORPUSCULAR HGB CONC 33.1 g/dl (32-36); MEAN PLATELET VOLUME 8.2 fL (7.4-10.4); PLATELET COUNT 380 K/uL (130-400); RED BLOOD COUNT 2.99 M/uL (4.7-6.1)
[2017-04-25 07:35] LABS: BUN/CREATININE RATIO 16.8 (10-20); CALCIUM 8.5 mg/dl (8.5-10.1); CREATININE 2.6 mg/dl (0.60-1.40); POTASSIUM 4.3 mmol/L (3.5-5.1)
[2017-04-25 07:39] LABS: PHOSPHORUS 3.7 mg/dl (2.5-4.9)
[2017-04-25] MEDS: CITALOPRAM 40 MG TAB PO SCH (07:46)
[2017-04-25] MEDS: GABAPENTIN 300 MG CAP PO SCH ×2 (07:46→21:48)
[2017-04-25] MEDS: ISOSORBIDE MONONITRATE 60 MG TABCR PO SCH (07:46)
[2017-04-25] MEDS: DILTIAZEM HCL 240 MG CAPCR PO SCH (07:47)
[2017-04-25 07:50] VITALS: BP 150/72; PULSE 84; TEMP 36.5; O2SAT 94
--- NOTE | 2017-04-25 09:58 | Clinical Documentation Query ---
QUERY 1 OF [address] AZUL, In your clinical opinion is this patient being managed for: ( ) Bronchopneumonia ( ) Other explanation of clinical findings (Please Explain) ( ) Unable to determine (Please Define) ( ) Need to Discuss ( ) Not Agree The medical record reflects the following clinical findings, treatment, and risk factors. Clinical Indicators: 72 yo male presenting with feeling ill at home x several days. CXR showed Equivocal asymmetric right perihilar opacity and possible opacity projecting over the thoracic spine on lateral projection. CT chest showed Bronchopneumonia primarily affecting the right lower lobe. Endobronchial spread of infection is suspected in the left lower lobe and to a lesser degree the lingual, ST eval Treatment: IV fluids, IV unasyn, CT chest Risk Factors: age, CKD/KATHY QUERY 2 OF 2 In your clinical opinion is this patient being managed for: ( ) Acute kidney failure on CKD stage III-IV ( ) Other explanation of clinical findings (Please Explain) ( ) Unable to determine (Please Define) ( ) Need to Discuss ( ) Not Agree The medical record reflects the following clinical findings, treatment, and risk factors. Clinical Indicators: Pt presented with worsening kidney function. Documented as progressive renal failure which was attributed to progressive CKD, less likely acute. Nephrology consult indicates pt with Acute Kidney Injury. Initially BUN 54, Cr 3.70 which has trended down to BUN 44/Cr 2.60. Per nephrology baseline Cr for pt is 2-2.4. Treatment: IV fluids, serial renal profiles, nephrology consult Risk Factors: CAD, CKD, anemia, bronchopneumonia Please clarify and document your clinical opinion in the progress notes and discharge summary. Terms such as "probable", "suspected", "likely", "questionable", "possible", or "still to be ruled out" are acceptable. IF IN AGREEMENT, YOU MUST DOCUMENT ABOVE DIAGNOSTIC STATEMENT IN DAILY PROGRESS NOTES AND DISCHARGE SUMMARY. This document is not part of the patient's record. Thank You, Jess Pizarro, RN [phone]
--- NOTE | 2017-04-25 10:07 | Nephrology Progress Note ---
Nephrology Progress Note Date of Service Apr 25, 2017. Chief Complaint F/U for acute kidney injury with history of chronic kidney disease. Osman Jackson was seen and examined in his room this morning. He is overall feeling well denies any shortness of breath or chest pain. he has been walking around the hallway and tolerating well. Renal function improved to creatinine 2.6 this morning, pretty close to his baseline. Hemoglobin slightly improved to 8.9. Blood pressure has been stable. Has decent urine output. Review of Systems A complete review of systems was performed. Pertinent positives are noted above. All other systems are negative. Vital Signs Last 8 Hrs Date Time Temp Pulse Resp B/P (MAP) Pulse Ox O2 Delivery O2 Flow Rate FiO2 04/25/17 07:50 36.5 84 16 150/72 (98) 94 Room Air Last Recorded Weight Weight (Kilograms): 99.500 Physical Exam GENERAL: Elderly male, AAA x 3, pleasant, healthy-appearing, not in any distress. NECK: Supple, no JVD. RESPIRATORY: Normal breathing efforts, no accessory muscle use, clear to auscultation bilaterally, no wheezes or rales. CARDIOVASCULAR: S1, S2 normal, rate rhythm regular. EXTREMITY: trace B/L lower extremity edema NEURO: speech fluent. PSYCHIATRY: Normal mood and judgment Social History Alcohol Use: occasionally Laboratory Results Past 24 Hours 04/25/17 06:29 04/25/17 06:29 Test 04/25/17 06:29 Red Blood Count 2.99 M/uL (4.7-6.1) Mean Corpuscular Volume 90.0 fL (80-100) Mean Corpuscular Hemoglobin 29.8 pg (25-34) Mean Corpuscular Hemoglobin Concent 33.1 g/dl (32-36) RDW Standard Deviation 49.4 fL (36.4-46.3) RDW Coefficient of Variation 15.0 % (11.5-14.5) Mean Platelet Volume 8.2 fL (7.4-10.4) Anion Gap 7.0 mmol/L (3-11) Est Creatinine Clear Calc Drug Dose 30.4 ml/min Estimated GFR () 27.3 Estimated GFR (Non- 23.6 BUN/Creatinine Ratio 16.8 (10-20) Calcium Level 8.5 mg/dl (8.5-10.1) Phosphorus Level 3.7 mg/dl (2.5-4.9) Ferritin 689.0 ng/ml (8.0-388.0) Albumin 2.4 gm/dl (3.4-5.0) Allergies Coded Allergies: No Known Drug Allergy (Verified Allergy, Unknown, NKDA, 12/13/16) Medications Current Inpatient Medications Medications (Trade) Dose Ordered Sig/Jess Route Start Time Stop Time Status Last Admin Dose Admin Atorvastatin Calcium (Lipitor Tab) 80 mg HS PO 04/24/17 21:00 05/24/17 20:59 04/24/17 20:58 80 MG Citalopram Hydrobromide (celeXA TAB) 40 mg QAM PO 04/24/17 09:00 05/24/17 08:59 04/25/17 07:46 40 MG Diltiazem HCl (Cardizem Cd Cap) 240 mg QAM PO 04/24/17 09:00 05/24/17 08:59 04/25/17 07:47 240 MG Gabapentin (Neurontin Cap) 300 mg BID PO 04/24/17 09:00 05/24/17 08:59 04/25/17 07:46 300 MG Hydralazine HCl (Apresoline Tab) 50 mg TID PO 04/24/17 09:00 05/24/17 08:59 04/25/17 07:45 50 MG Isosorbide Mononitrate (Imdur Ext Rel Tab) 60 mg QAM PO 04/24/17 09:00 05/24/17 08:59 04/25/17 07:46 60 MG Oxycodone/ Acetaminophen (Percocet 5-325mg Tab) 1 tab Q4H PRN PO 04/23/17 23:30 05/07/17 23:29 Pantoprazole Sodium (Protonix Tab) 40 mg DAILY PRN PO 04/23/17 23:30 05/23/17 23:29 Acetaminophen (Tylenol Tab) 650 mg Q4H PRN PO 04/23/17 23:30 05/23/17 23:29 Al Hydrox/Mg Hydrox/Simethicone (Maalox Max Susp) 15 ml Q4H PRN PO 04/23/17 23:30 05/23/17 23:29 Magnesium Hydroxide (Milk Of Magnesia Susp) 30 ml Q6H PRN PO 04/23/17 23:30 05/23/17 23:29 Polyethylene (Miralax Powder Packet) 17 gm DAILY PRN PO 04/23/17 23:30 05/23/17 23:29 Zolpidem Tartrate (Ambien Tab) 5 mg HSZ PRN PO 04/23/17 23:30 05/23/17 23:29 Ondansetron HCl (Zofran Inj) 4 mg Q6H PRN IV 04/23/17 23:30 05/23/17 23:29 Ampicillin Sodium/ Sulbactam Sodium 3000 mg/Sodium Chloride 108 ml @ 200 mls/hr Q6H IV 04/24/17 10:00 05/01/17 09:59 04/25/17 03:37 200 MLS/HR Iron Sucrose 200 mg/Sodium Chloride 110 ml @ 420 mls/hr Q48H IV 04/24/17 13:00 05/02/17 13:16 04/24/17 12:19 420 MLS/HR Impression (1) ARF (acute renal failure) (2) Metabolic acidosis (3) Anemia (4) Chronic renal disease, stage IV (5) Hypertension Manuel is a 72-year-old gentlemen with stage IIIB/4 chronic kidney disease, hypertension, coronary artery disease, chronic anemia admitted to the hospital with acute kidney injury and worsening anemia and overall feeling unwell for few days. Acute kidney injury possibly hemodynamically mediated, creatinine started to improve, on admission was 3.7 which improved to 2.8 this morning, other electrolyte stable. Baseline creatinine has been around 2.2-2.4, has history of low grade proteinuria. Has been on losartan 50 milligram daily which has been on hold. He was on Lasix 40 milligram daily which has been on hold since admission. Has history of chronic anemia previously had GI workup including EGD and colonoscopy, found to have hiatus hernia and has been on Protonix. Previously was treated with Venofer for iron deficiency. Fatigue, shortness of breath and overall feeling unwell could be secondary to progressive renal impairment, AK I and anemia. Recommendations --renal function continues to improve, monitor renal function with daily renal panel. Hold further IV fluid, encourage po intake --phosphate normal. --continue to hold lasix and losartan --Okay to be discharged from Nephrology stand point. --pls schedule for F/U in 2 to 4 weeks --out pt lab in 2/3 days after discharge --Dose medications for GFR <30 Will follow This chart was completed utilizing [employer] Speech and voice recognition software. Grammatical errors, random word insertions, pronoun errors and incomplete sentences are occasional consequences of this system. Any questions or concerns about the content, text or information contained within the body of this dictation should be addressed directly to the physician for clarification.
[2017-04-25 16:10] VITALS: O2SAT 95
[2017-04-25 16:11] VITALS: BP 139/63; PULSE 80; TEMP 36.8; O2SAT 94
--- NOTE | 2017-04-25 18:42 | Hospitalist Progress Note ---
Hospitalist Progress Note Date of Service Apr 25, 2017. Subjective Pt evaluation today including: conversation w/ patient Voiding: no voiding problems Objective Vital Signs Date Time Temp Pulse Resp B/P (MAP) Pulse Ox O2 Delivery O2 Flow Rate FiO2 04/25/17 16:11 36.8 80 18 139/63 (88) 94 Room Air 04/25/17 10:04 Room Air 04/25/17 07:50 36.5 84 16 150/72 (98) 94 Room Air 04/25/17 00:08 36.9 89 20 164/75 (104) 95 Room Air 04/25/17 00:00 Room Air Physical Exam General Appearance: no apparent distress Neck: trachea midline Respiratory/Chest: lungs clear Cardiovascular: regular rate, rhythm Abdomen: normal bowel sounds Extremities: normal range of motion Neurologic/Psychiatric: alert Laboratory Results Last 24 Hours Test 04/25/17 06:29 White Blood Count 6.80 K/uL Red Blood Count 2.99 M/uL Hemoglobin 8.9 g/dL Hematocrit 26.9 % Mean Corpuscular Volume 90.0 fL Mean Corpuscular Hemoglobin 29.8 pg Mean Corpuscular Hemoglobin Concent 33.1 g/dl RDW Standard Deviation 49.4 fL RDW Coefficient of Variation 15.0 % Platelet Count 380 K/uL Mean Platelet Volume 8.2 fL Sodium Level 141 mmol/L Potassium Level 4.3 mmol/L Chloride Level 112 mmol/L Carbon Dioxide Level 22 mmol/L Anion Gap 7.0 mmol/L Blood Urea Nitrogen 44 mg/dl Creatinine 2.60 mg/dl Est Creatinine Clear Calc Drug Dose 30.4 ml/min Estimated GFR () 27.3 Estimated GFR (Non- 23.6 BUN/Creatinine Ratio 16.8 Random Glucose 105 mg/dl Calcium Level 8.5 mg/dl Phosphorus Level 3.7 mg/dl Ferritin 689.0 ng/ml Albumin 2.4 gm/dl Assessment and Plan (1) Pneumonia Assessment & Plan: Continue Unasyn changed to Augmentin tomorrow (2) Anemia Assessment & Plan: Nephrology input appreciated (3) Hypertension Assessment & Plan: Continue present antihypertensives hold off on arb (4) Chronic renal disease, stage IV
[2017-04-25] MEDS: ATORVASTATIN 40 MG TAB PO SCH (21:48)
[2017-04-26 00:02] VITALS: BP 149/77; PULSE 86; TEMP 36.8; O2SAT 95
[2017-04-26] MEDS: AMPICILLIN/SULBACTAM SOD INJ 3,000 MG in SODIUM CHLORIDE 0.9% 100ML 100 ML IV SCH ×2 (03:38→10:36)
[2017-04-26 07:11] LABS: CALCIUM 8.7 mg/dl (8.5-10.1); CREATININE 2.5 mg/dl (0.60-1.40); POTASSIUM 4.5 mmol/L (3.5-5.1)
[2017-04-26 07:12] LABS: PHOSPHORUS 4.2 mg/dl (2.5-4.9)
[2017-04-26 07:54] VITALS: BP 147/68; PULSE 82; TEMP 36.9; O2SAT 94
[2017-04-26] MEDS: DILTIAZEM HCL 240 MG CAPCR PO SCH (08:06)
[2017-04-26] MEDS: GABAPENTIN 300 MG CAP PO SCH (08:06)
[2017-04-26] MEDS: ISOSORBIDE MONONITRATE 60 MG TABCR PO SCH (08:06)
[2017-04-26] MEDS: CITALOPRAM 40 MG TAB PO SCH (08:06)
--- NOTE | 2017-04-26 09:57 | Discharge Instructions ---
Discharge Instructions Date of Service Apr 26, 2017. Admission Reason for Admission: Anemia, Arf Discharge Discharge Diagnosis / Problem: Pneumonia, ARF, Anemia Discharge Goals Goal(s): Improve function Activity Recommendations Activity Limitations: resume your previous activity . Instructions / Follow-Up Instructions / Follow-Up Primary Care Physician in [address] Pruitt in 2-4 weeks Current Hospital Diet Patient's current hospital diet: AHA Diet (Heart Healthy), Renal Diet Discharge Diet Recommended Diet: Low Sodium Diet (2gm Na), Renal Diet Pending Studies Studies pending at discharge: no Medical Emergencies . Who to Call and When: Medical Emergencies: If at any time you feel your situation is an emergency, please call 911 immediately. . Non-Emergent Contact Non-Emergency issues call your: Primary Care Provider . Past History Medical & Surgical History: (1) Anemia (2) Pneumonia (3) Hypertension (4) ARF (acute renal failure) (5) Chronic renal disease, stage IV . "Provider Documentation" section prepared by Julian Gonzalez. . VTE Core Measure Inpt VTE Proph given/why not?: Unfractionated heparin SQ
[2017-04-26] MEDS ORDERED: AMOX875T PO (09:59)
--- NOTE | 2017-04-26 10:41 | Nephrology Progress Note ---
Nephrology Progress Note Date of Service Apr 26, 2017. Chief Complaint F/U for acute kidney injury with history of chronic kidney disease. Osman Jackson was seen and examined in his room this morning. He is overall feeling well denies any shortness of breath or chest pain. he has been walking around the hallway and tolerating well. Renal function improved to creatinine 2.5 this morning, pretty close to his baseline. Blood pressure has been stable. Has decent urine output. Review of Systems A complete review of systems was performed. Pertinent positives are noted above. All other systems are negative. Vital Signs Last 8 Hrs Date Time Temp Pulse Resp B/P (MAP) Pulse Ox O2 Delivery O2 Flow Rate FiO2 04/26/17 07:54 36.9 82 16 147/68 (94) 94 Room Air Last Recorded Weight Weight (Kilograms): 97.800 Physical Exam GENERAL: Elderly male, AAA x 3, pleasant, healthy-appearing, not in any distress. NECK: Supple, no JVD. RESPIRATORY: Normal breathing efforts, no accessory muscle use, clear to auscultation bilaterally, no wheezes or rales. CARDIOVASCULAR: S1, S2 normal, rate rhythm regular. EXTREMITY: trace B/L lower extremity edema NEURO: speech fluent. PSYCHIATRY: Normal mood and judgment Social History Alcohol Use: occasionally Laboratory Results Past 24 Hours 04/26/17 06:16 Test 04/26/17 06:16 Anion Gap 7.0 mmol/L (3-11) Est Creatinine Clear Calc Drug Dose 31.3 ml/min Estimated GFR () 28.7 Estimated GFR (Non- 24.7 BUN/Creatinine Ratio 17.0 (10-20) Calcium Level 8.7 mg/dl (8.5-10.1) Phosphorus Level 4.2 mg/dl (2.5-4.9) Albumin 2.3 gm/dl (3.4-5.0) Allergies Coded Allergies: No Known Drug Allergy (Verified Allergy, Unknown, NKDA, 12/13/16) Medications Current Inpatient Medications Medications (Trade) Dose Ordered Sig/Jess Route Start Time Stop Time Status Last Admin Dose Admin Atorvastatin Calcium (Lipitor Tab) 80 mg HS PO 04/24/17 21:00 05/24/17 20:59 04/25/17 21:48 80 MG Citalopram Hydrobromide (celeXA TAB) 40 mg QAM PO 04/24/17 09:00 05/24/17 08:59 04/26/17 08:06 40 MG Diltiazem HCl (Cardizem Cd Cap) 240 mg QAM PO 04/24/17 09:00 05/24/17 08:59 04/26/17 08:06 240 MG Gabapentin (Neurontin Cap) 300 mg BID PO 04/24/17 09:00 05/24/17 08:59 04/26/17 08:06 300 MG Hydralazine HCl (Apresoline Tab) 50 mg TID PO 04/24/17 09:00 05/24/17 08:59 04/26/17 08:07 50 MG Isosorbide Mononitrate (Imdur Ext Rel Tab) 60 mg QAM PO 04/24/17 09:00 05/24/17 08:59 04/26/17 08:06 60 MG Oxycodone/ Acetaminophen (Percocet 5-325mg Tab) 1 tab Q4H PRN PO 04/23/17 23:30 05/07/17 23:29 Pantoprazole Sodium (Protonix Tab) 40 mg DAILY PRN PO 04/23/17 23:30 05/23/17 23:29 Acetaminophen (Tylenol Tab) 650 mg Q4H PRN PO 04/23/17 23:30 05/23/17 23:29 Al Hydrox/Mg Hydrox/Simethicone (Maalox Max Susp) 15 ml Q4H PRN PO 04/23/17 23:30 05/23/17 23:29 Magnesium Hydroxide (Milk Of Magnesia Susp) 30 ml Q6H PRN PO 04/23/17 23:30 05/23/17 23:29 Polyethylene (Miralax Powder Packet) 17 gm DAILY PRN PO 04/23/17 23:30 05/23/17 23:29 Zolpidem Tartrate (Ambien Tab) 5 mg HSZ PRN PO 04/23/17 23:30 05/23/17 23:29 Ondansetron HCl (Zofran Inj) 4 mg Q6H PRN IV 04/23/17 23:30 05/23/17 23:29 Ampicillin Sodium/ Sulbactam Sodium 3000 mg/Sodium Chloride 108 ml @ 200 mls/hr Q6H IV 04/24/17 10:00 05/01/17 09:59 04/26/17 03:38 200 MLS/HR Iron Sucrose 200 mg/Sodium Chloride 110 ml @ 420 mls/hr Q48H IV 04/24/17 13:00 05/02/17 13:16 04/24/17 12:19 420 MLS/HR Impression (1) ARF (acute renal failure) (2) Metabolic acidosis (3) Anemia (4) Chronic renal disease, stage IV (5) Hypertension Manuel is a 72-year-old gentlemen with stage IIIB/4 chronic kidney disease, hypertension, coronary artery disease, chronic anemia admitted to the hospital with acute kidney injury and worsening anemia and overall feeling unwell for few days. Acute kidney injury possibly hemodynamically mediated, creatinine started to improve, on admission was 3.7 which improved to 2.8 this morning, other electrolyte stable. Baseline creatinine has been around 2.2-2.4, has history of low grade proteinuria. Has been on losartan 50 milligram daily which has been on hold. He was on Lasix 40 milligram daily which has been on hold since admission. Has history of chronic anemia previously had GI workup including EGD and colonoscopy, found to have hiatus hernia and has been on Protonix. Previously was treated with Venofer for iron deficiency. Fatigue, shortness of breath and overall feeling unwell could be secondary to progressive renal impairment, AK I and anemia. Recommendations --renal function continues to improve, creatinine 2.5 this morning pretty close to baseline --phosphate normal. --continue to hold lasix and losartan on discharge --Okay to be discharged from Nephrology stand point. --pls schedule for F/U in 2 to 4 weeks --out pt lab in 2/3 days after discharge and before the visit. --Dose medications for GFR <30 -- discussed in detail with the hospitalist team, patient son-in-law Jamshid and patient regarding patient's current status of renal function and explained and answer all the questions. Will follow .
[2017-04-26] MEDS: IRON SUCROSE INJ 200 MG in SODIUM CHLORIDE 0.9% 100ML 100 ML IV SCH (12:42)
[2017-04-26 14:04] VITALS: BP 147/68; PULSE 82; TEMP 36.9; O2SAT 94
--- NOTE | 2017-05-10 05:41 | DISCHARGE SUMMARY ---
Please see dictated H and P for full details. HISTORY OF PRESENT ILLNESS: The patient is a 72-year-old with history of chronic kidney disease stage III, hypertension, coronary artery disease, and iron deficiency anemia who is complaining of fatigue and exertional dyspnea for the past 2 weeks. He saw his physician and was instructed to come to the hospital secondary to worsening renal functioning and worsening anemia. On admission, his hemoglobin was 8.6 and platelet count of 332, MCV was 89.7. Creatinine was 3.7. Chest x-ray showed an asymmetrical right hilar opacity and possible opacity projecting over the thoracic spine. EKG was normal sinus rhythm. He was admitted with progressive renal failure and nephrology was consulted. For his worsening anemia, aspirin and Plavix was held. The patient was seen by nephrology and Dr. Kearns, she recommended to continue normal saline and 1 dose of Venofer and Epogen. The patient had previously had an EGD and colonoscopy, capsule had been recommended at [facility]; however, the patient did not pursue his appointment there. The patient had a CT of the chest which revealed bronchopneumonia, primarily infecting the right lower lobe, endobronchial spasm infection is suspected in the left lower lobe to the lesser degree and the lingula, prominent mediastinal nodes are likely reactive, trace peripneumonic right effusion, subacute fracture of the right anterior 7th rib and mild cardiomegaly. The patient's anemia went from 8.6-8.9 and his creatinine went from 3.2 to 2.5. Based on his improvement and positive trends, he was deemed stable for discharge. His losartan was on hold and his Lasix was also on hold. The patient was instructed to follow up with his primary care doctor in 1 week. DISCHARGE MEDICATIONS: He was discharged on aspirin 81 mg daily, atorvastatin 80 at bedtime, calcium with vitamin D 1 tablet q.a.m., calcium with vitamin D3 3000 units daily, citalopram 40 mg daily, Plavix 75 mg daily, diltiazem 240 mg daily, iron sulfate 325 p.o. daily, Neurontin 300 mg twice a day, hydralazine 50 mg p.o. t.i.d., isosorbide mononitrate 60 mg daily, Percocet 1-2 tablets q. 4 p.r.n., Protonix 40 daily, terbinafine as needed for itching, Lasix has been discontinued as triamcinolone. CONDITION ON DISCHARGE: Discharged in stable condition on April 26. Follow up will be with Dr. Kearns in 2 to 4 weeks and if the patient chooses to pursue capsule endoscopy was also recommended.
== END 2017-04-26 16:10 | disposition home or self-care (01) | DRG 682 ==
LOC: C.EDB 20:58 → C.MS2W 23:34 → ENRESERV 23:46
PROVIDERS: ADMIT Internal Medicine; ATTEND Internal Medicine
DX: N17.9 Acute kidney failure, unspecified (principal); J18.0 Bronchopneumonia, unspecified organism; D50.9 Iron deficiency anemia, unspecified; R19.5 Other fecal abnormalities; R91.8 Other nonspecific abnormal finding of lung field; I12.9 Hypertensive chronic kidney disease with stage 1 through stage 4 chronic kidney disease, or unspecified chronic kidney disease; N18.4 Chronic kidney disease, stage 4 (severe); I25.10 Atherosclerotic heart disease of native coronary artery without angina pectoris; I73.9 Peripheral vascular disease, unspecified; K44.9 Diaphragmatic hernia without obstruction or gangrene; G47.33 Obstructive sleep apnea (adult) (pediatric); Z98.1 Arthrodesis status; Z91.19 Patient's noncompliance with other medical treatment and regimen; Z87.891 Personal history of nicotine dependence; Z95.5 Presence of coronary angioplasty implant and graft; Z79.02 Long term (current) use of antithrombotics/antiplatelets; Z79.82 Long term (current) use of aspirin; Z79.891 Long term (current) use of opiate analgesic; Z79.899 Other long term (current) drug therapy

== ENCOUNTER 2018-12-04 19:55 | Inpatient (IN) ==
[2018-12-04] MEDS ORDERED: MoRPHine SULFATE 4 MG/ML 1 ML CARP\\VIAL IV STA (20:43)
[2018-12-04] MEDS ORDERED: ONDANSETRON INJ 2 MG/ML 2 ML VIAL IV STA (20:43)
[2018-12-04 20:57] LABS: Basophils # (auto) 0.03 K/uL (0-0.2); Basophils % (auto) 0.3 %; Eosinophils # (auto) 0.56 K/uL (0-0.5); Eosinophils % (auto) 5.4 %; Hematocrit (blood only) 26.8 % (42-52); Hemoglobin 8.6 g/dL (14.0-18.0); Immature Granulocytes # (auto) 0.02 K/uL (0.00-0.02); Immature Granulocytes % (auto) 0.2 %; Lymphocytes # (auto) 0.71 K/uL (1.2-3.4); Lymphocytes % (auto) 6.8 %; Mean Corpuscular Hgb Conc 32.1 g/dL (32-36); Mean Corpuscular Volume 88.4 fL (80-100); Mean Platelet Volume 9.1 fL (7.4-10.4); Monocytes # (auto) 0.44 K/uL (0.11-0.59); Monocytes % (auto) 4.2 %; Neutrophils # (auto) 8.66 K/uL (1.4-6.5); Neutrophils % (auto) 83.1 %; Platelet Count 305 K/uL (130-400); RDW Coefficient of Variation 15.2 % (11.5-14.5); RDW Standard Deviation 49.4 fL (36.4-46.3); Red Blood Count 3.03 M/uL (4.7-6.1); White Blood Count 10.42 K/uL (4.8-10.8)
[2018-12-04 21:33] LABS: Acanthocytes 1+
[2018-12-04 21:36] LABS: Albumin Globulin Ratio 0.8 (0.9-2); BUN Creatinine Ratio 14.4 (10-20); Bilirubin,Total 0.3 mg/dl (0.2-1); Calcium 12.9 mg/dl (8.5-10.1); Creatinine Clr Calc Pharmacy 12.4 ml/min; Est GFR (Non-African American) 8.6; Globulin 3.8 gm/dl (2.5-4.0); Potassium 4.3 mmol/L (3.5-5.1); Total Protein 6.8 gm/dl (6.4-8.2)
--- NOTE | 2018-12-04 21:56 | Ultrasound Report ---
US gallbladder CLINICAL HISTORY: 73 years-old Male presenting with ruq pain eval for gallstones. TECHNIQUE: Real-time grayscale and limited color Doppler ultrasound imaging of the abdomen limited to the right upper quadrant was performed. COMPARISON: None. FINDINGS: Pancreas: Largely obscured due to overlying bowel gas. Liver: Mildly hyperechogenic parenchyma, although the right hemidiaphragm remains visible, likely ind icating mild steatosis. The liver measures 18.1 cm in maximal sagittal dimension. Heterogeneously hyp oechoic mass measuring 12.0 x 7.7 x 9.5 cm with internal vascular flow on color Doppler. An additiona l smaller similar-appearing 2.2 x 2.0 x 1.7 cm mass is also noted. Main portal vein patent with john l directional flow. Biliary: No intrahepatic biliary ductal dilatation. Common bile duct measures up to 3 mm in diameter. Gallbladder: Gallbladder sludge. No evidence of gallstones, gallbladder wall thickening, gallbladder distention, or pericholecystic fluid or inflammatory change. Sonographic Iyer's sign negative. Right kidney: Several simple and minimally complex cysts noted, the largest measuring 1.7 cm. No hydr onephrosis. Ascites: None. Other: None. IMPRESSION: 1. Indeterminant dominant 12 cm hepatic mass. Malignancy is not excluded. Additional similar-appeari ng 2.2 cm hepatic mass. Dedicated contrast-enhanced liver CT or MR is recommended for characterizatio n. 2. Gallbladder sludge. No cholelithiasis or evidence of cholecystitis. Electronically signed by: Vasiliy Perdomo M.D. 12/04/2018 9:54 PM
[2018-12-04] MEDS: SODIUM CHLORIDE 0.9% 1000ML 1,000 ML IV SCH (22:42)
--- NOTE | 2018-12-04 23:26 | History & Physical Report ---
Date of Service December 04, 2018 Assessment & Plan (1) Acute kidney injury: Mr. De La Cruz is a 73 year old male with a past medical history including chronic kidney disease stage IV, coronary artery disease s/p stent placement x1, hypertension, peripheral vascular disease s/p balloon angioplasty and stent placement, hypercholesterolemia, GERD, history of obstructive sleep apnea who presents to the emergency department with a 3-day history of right-sided abdominal pain. In the ED, patient found to have critical labs, including a creatinine level of 5.95 and a calcium level of 12.9. He was also found to have 12 cm and 2.2 cm hepatic masses. -admit to telemetry -creatinine level was 5.95 on admission - significantly worse than baseline (2.3) and from labs drawn in October (3.28) -Unsure of cause of sudden worsening in renal function. Patient was presumed to have chronic kidney disease related to microvascular disease, however unusual for this to progress so suddenly -Renal artery dopplers ordered -Nephrology consulted, patient will likely require dialysis in the near future. May require renal biopsy for further investigation Hypercalcemia -calcium level 12.9 on admission, asymptomatic -secondary to renal disease vs. paraneoplastic syndrome w/probable malignancy? -he was started on NS at 125 mls/hr in the ED, continue IVF -Calcitonin 4units/kg dose ordered SQ x1, will reassess BMP 6 hours from admission labs -parathyroid hormone related peptide ordered to further evaluate -home Vitamin D and calcium supplementation discontinued Liver Mass -more likely to be metastatic disease given 2 separate masses -MRI abdomen w/out contrast ordered to evaluate further -AFP and CEA ordered -heme/onc consulted Anemia -Hgb generally between 10 and 11, currently 8.6 on admission -Likely related to chronic kidney disease given slow progression (last Hgb in October was 9.4) and negative prior endoscopic workup. -continue home iron supplementation CAD/PVD -continue home aspirin and plavix Peripheral Neuropathy -hold home gabapentin in the setting of worsening kidney function Hypertension -continue home diltiazem, hydralazine and isosorbide mononitrate -hold home losartan given KATHY Hypercholesterolemia -continue home atorvastatin Depression -continue citalopram GERD -continue home protonix MAEGAN -CPAP ordered, however patient does not routinely wear it Code status: FULL DVT Prophylaxis: SCDs Disposition: admit to telemetry F/E/N: NPO for MRI abdomen tomorrow AM. Repeating BMP q6h to monitor creatinine and calcium. NS at 125 mls/hr. (2) Liver mass: (3) Hypercalcemia: (4) Anemia: (5) Hypertension: (6) Coronary artery disease: (7) Peripheral vascular disease: (8) Chronic renal disease, stage IV: (9) MAEGAN (obstructive sleep apnea): (10) Hypercholesteremia: History of Present Illness Primary Care Provider: Vinod Pang Mr. De La Cruz is a 73 year old male with a past medical history including chronic kidney disease stage IV, coronary artery disease s/p stent placement x1, hypertension, peripheral vascular disease s/p balloon angioplasty and stent placement, hypercholesterolemia, GERD, history of obstructive sleep apnea who presents to the emergency department with a 3-day history of right-sided abdominal pain. He states the pain is constant, however worse with taking a deep breath in or w/movement. He states the pain is unrelated to the consumption of food, however he has had decreased appetite of late. Currently, he rates his pain as a 2 out of 10. He states he has been moving his bowels normally, and denies diarrhea or the presence of blood in his stools. His family notes that his abdomen has been more bloated of late, and that he has also had a 24 pound unintentional weight loss. With regards to his chronic kidney disease, this is presumed to be secondary to microvascular disease and he follows with Dr. Kearns. His baseline creatinine is reportedly 2.3. He has had a renal ultrasound in the past which revealed normal-sized kidneys with small bilateral simple cysts. Of note, the family states that he has been more tired over the past 5-6 years. He has been persistently anemic, with his hemoglobin level ranging from 10-12, with a normal MCV. He has undergone extensive endoscopic evaluation to look for sources of GI bleeding, with none identified. He has been receiving iron injections and also saw Dr. Flores for his history of anemia, who felt that this was unrelated to low iron levels, but rather related to anemia of chronic kidney disease. Of note, Mr. Rojas is a prior smoker, and does chew tobacco. He denies use of alcohol or recreational drugs. Allergies Allergy/AdvReac Type Severity Reaction Status Date / Time No Known Drug Allergies Allergy Unknown NKDA Verified 12/04/18 23:30 Home Medications Home Medications Medication Instructions Recorded Confirmed Type aspirin 81 mg PO DAILY #0 12/21/14 12/04/18 History atorvastatin [Lipitor] 80 mg PO HS #0 tab 12/21/14 12/04/18 History calcium carbonate-vitamin D3 1 tab PO DAILY #0 tab 12/21/14 12/04/18 History [Os-Naseem 500 + D3] clopidogrel [Plavix] 75 mg PO DAILY #0 tab 12/21/14 12/04/18 History ferrous sulfate 325 mg PO DAILY #0 12/21/14 12/04/18 History pantoprazole [Protonix] 40 mg PO DAILY PRN #0 tab 12/21/14 12/04/18 History citalopram 20 mg PO DAILY #0 tab 07/12/16 12/04/18 History diltiazem HCl 240 mg PO DAILY #0 cap 07/12/16 12/04/18 History hydralazine 50 mg PO TID #0 tab 07/12/16 12/04/18 History isosorbide mononitrate 60 mg PO QAM #0 tab 07/12/16 12/04/18 History cholecalciferol (vitamin D3) 3,000 unit PO DAILY #0 04/23/17 12/04/18 History finasteride 5 mg PO DAILY 12/04/18 12/04/18 History gabapentin 300 mg PO BID 12/04/18 12/04/18 History losartan 50 mg PO DAILY 12/04/18 12/04/18 History Past Med/Surg History Medical History Anemia Metabolic acidosis ARF (acute renal failure) Chronic renal disease, stage IV Hypertension Surgical History History of lumbar discectomy (Acute) History of umbilical hernia repair (Acute) Social History Communication Ability: Effective 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 Beliefs That Will Affect Care: None Current Living Situation: Spouse Other Information That Helps Us Care for You: No Feels Safe at Home: Yes Safety Concerns: Feels Safe At This Time Smoking Status: Former smoker Hx Alcohol Use: Yes Hx Substance Use: No Review of Systems Constitutional: + chills, + fatigue, + anorexia and + weight loss; no fever Respiratory: no cough, no dyspnea and no wheezing Cardiovascular: no chest pain, no palpitations, no syncope, no edema and no calf pain Gastrointestinal: + abdominal pain and + bloating; no nausea, no vomiting, no change in bowel habits, no constipation and no blood in stools Genitourinary (Male): no dysuria and no urinary frequency Physical Exam Vital Signs (Past 24 Hours): Last Vital Signs Temp 36.4 C L 12/04/18 19:57 Pulse 69 12/04/18 23:19 Resp 20 12/04/18 23:19 BP 121/39 L 12/04/18 23:19 Pulse Ox 98 12/04/18 23:19 Constitutional: well developed, well nourished, + well hydrated, + obese, 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 Iyer's negative. ) and abdomen soft; no guarding and abdomen not rigid No flank tenderness Skin: no rashes, warm and dry Psychiatric: A+Ox3, euthymic affect Results & Data Laboratory Results Laboratory Results - last 24 hr 12/04/18 12/04/18 12/04/18 20:25 20:25 23:27 WBC 10.42 RBC 3.03 L Hgb 8.6 L Hct 26.8 L MCV 88.4 MCH 28.4 MCHC 32.1 RDW Std Deviation 49.4 H RDW Coeff of [place] 15.2 H Plt Count 305 MPV 9.1 Immature Gran % (Auto) 0.2 Neut % (Auto) 83.1 Lymph % (Auto) 6.8 [place] % (Auto) 4.2 Eos % (Auto) 5.4 Baso % (Auto) 0.3 Immature Gran # (Auto) 0.02 Neut # (Auto) 8.66 H Lymph # (Auto) 0.71 L [place] # (Auto) 0.44 Eos # (Auto) 0.56 H Baso # (Auto) 0.03 Acanthocytes (Spur) 1+ Sodium 137 Potassium 4.3 Chloride 103 Carbon Dioxide 24 Anion Gap 11.0 BUN 86 H Creatinine 5.95 H* Est Cr Clr Drug Dosing 12.4 Est GFR ( Amer) 10.0 Est GFR (Non-Af Amer) 8.6 BUN/Creatinine Ratio 14.4 Glucose 136 H Calcium 12.9 H* Total Bilirubin 0.3 AST 42 H ALT 28 Alkaline Phosphatase 87 Total Protein 6.8 Albumin 3.0 L Globulin 3.8 Albumin/Globulin Ratio 0.8 L Lipase 202 Urine Color Yellow Urine Appearance Clear Urine pH 6.5 Ur Specific [place] 1.015 Urine Protein Trace H Urine Glucose (UA) Negative Urine Ketones Negative Urine Blood Negative Urine Nitrite Negative Urine Bilirubin Negative Urine Urobilinogen Negative Ur Leukocyte Esterase Negative Urine WBC (Auto) 1-5 Urine RBC (Auto) 0-4 U Hyaline Cast (Auto) 1-5 U Epithel Cells (Auto) 5-10 H Urine Bacteria (Auto) Negative Medications Administered Current Inpatient Medications Sodium Chloride (Nss 1000ml) 1,000 mls @ 125 mls/hr IV .Q8H GAURI Stop: 01/03/19 22:44 Last Admin: 12/04/18 22:42 Dose: 125 mls/hr Documented by: Supervising Physician Co-Signing Physician Notes This interesting pt was seen and examined in the presence of resident MD Tyshawn Robledo. Orders and plan of admission were formulated with the resident. 73 y/o M Hx CKD IV - undetermined etiology - thought to be vascular, hypothyroidism, CAD, HTN, PVD, requiring angioplasty, HLD, GERD, MAEGAN. Pt is presenting with R sided abdominal/flank pain. Initial labs contained multiple abnormalities including RF which is more consistent with end-stage disease, worsening anemia and hypercalcemia which is new. An US of the abdomen revealed a 12cm hepatic mass. He is admitted primarily due to his lab abnormalities. He denies N/V diarrhea or constipation and in fact had detoured to [place] on route to the hospital to savor a [employer] Mac OE AAO x 3 S1.2 R CTAB Soft, distended abdomen without a Iyer's sign - tenderness seems more limited to the R flank No CCE - pulses are faint in the LEs P: Acutely, we need to lower the pt's calcium - as his RF is worsening and he does not display related symptoms, we would choose calcitonin and IVF at present. 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 doppler. His K has remained within normal limits - there is no evidence of dehydration so that he may be trending toward dialysis. Regarding his hepatic mass - we will obtain a noncontrast study due to his RF. What he would likely need is a biopsy although this is not likely to be urgent. Considering the finding of a mass, his hypercalcemia may be multifactorial owing to RF and a paraneoplastic contribution. We have ordered AFP and CEA for what they are worth. Resident Activity Tracking Resident Involvement: Resident Care Provided Care Provided: Adult [facility]
[2018-12-04 23:52] LABS: Appearance Urine Clear (Clear); Bacteria Urine Automated Negative (Negative); Bilirubin Urine Negative (Negative); Blood Urine Negative (Negative); Color Urine Yellow; Glucose Urine UA Negative (Negative); Ketones Urine Negative (Negative); Leukocyte Esterase Urine Negative (Negative); Nitrite Urine Negative (Negative); Protein Urine Trace (Negative); RBC Urine Automated 0-4 /hpf (0-4); Specific Gravity Urine 1.015 (1.000-1.030); Urobilinogen Urine Negative (Negative); pH Urine 6.5 (4.5-7.5)
[2018-12-05] MEDS ORDERED: CALCITONIN SALMON 400 UNITS/2 ML SQ ONE ×2 (00:15→13:30)
--- NOTE | 2018-12-05 00:17 | Emergency Department Note ---
Entered by Oralia Patterson acting as a scribe for Hari Naranjo MD History of Present Illness General Chief complaint: Abdominal Pain Stated complaint: ABDOMINAL PAIN, HURTS TO TAKE DEEP BREATHS Source: patient Mode of arrival: ambulatory Limitations: no limitations History of Present Illness Provider complaint: abdominal pain Onset (ago): day(s) 3 Location: abdomen and right Pain Consistency: + other (persistent) Maximum Pain Intensity: 10 Current Pain Intensity: 3 Quality: + sharp Exacerbated By: + movement and + other (coughing, deep breath) Associated symptoms: + denies other symptoms (diarrhea, melena, urinary symptoms); no fever/chills, no nausea/vomiting and no shortness of breath The patient is a 73 year old male who presents to the Emergency Room with complaints of a persistent abdominal pain that began 3 days ago. The patient reports that the pain is located on the right side of his abdomen and describes it as sharp. He states that moving, coughing and taking a deep breath worsens the pain, but not eating. He denies any fevers, vomiting, diarrhea, melena, urinary symptoms, or shortness of breath. He also denies ever having any abdominal surgeries. He notes that he was evaluated by his PCP earlier today and was referred him to the ER. The patient reports that he ate a Big Mac prior to arrival. Home Medications Home Medications Medication Instructions Recorded Confirmed Type aspirin 81 mg PO DAILY #0 12/21/14 12/04/18 History atorvastatin [Lipitor] 80 mg PO HS #0 tab 12/21/14 12/04/18 History calcium carbonate-vitamin D3 1 tab PO DAILY #0 tab 12/21/14 12/04/18 History [Os-Naseem 500 + D3] clopidogrel [Plavix] 75 mg PO DAILY #0 tab 12/21/14 12/04/18 History ferrous sulfate 325 mg PO DAILY #0 12/21/14 12/04/18 History pantoprazole [Protonix] 40 mg PO DAILY PRN #0 tab 12/21/14 12/04/18 History citalopram 20 mg PO DAILY #0 tab 07/12/16 12/04/18 History diltiazem HCl 240 mg PO DAILY #0 cap 07/12/16 12/04/18 History hydralazine 50 mg PO TID #0 tab 07/12/16 12/04/18 History isosorbide mononitrate 60 mg PO QAM #0 tab 07/12/16 12/04/18 History cholecalciferol (vitamin D3) 3,000 unit PO DAILY #0 04/23/17 12/04/18 History finasteride 5 mg PO DAILY 12/04/18 12/04/18 History gabapentin 300 mg PO BID 12/04/18 12/04/18 History losartan 50 mg PO DAILY 12/04/18 12/04/18 History Allergies Allergy/AdvReac Type Severity Reaction Status Date / Time No Known Drug Allergies Allergy Unknown NKDA Verified 12/04/18 23:30 Past Med/Surg History Medical History Anemia Metabolic acidosis ARF (acute renal failure) Chronic renal disease, stage IV Hypertension Surgical History History of lumbar discectomy (Acute) History of umbilical hernia repair (Acute) Social History Feels Safe at Home: Yes Smoking Status: Former smoker Review of Systems See HPI for pertinent positives & negatives. and A total of 10 systems reviewed and were otherwise negative Physical Exam Vital Signs Vital Signs - 24 hr 12/04/18 19:57 12/04/18 20:25 12/04/18 20:41 Temperature 36.4 C L Temperature Source Oral Sepsis Recent Fever Within 48 Hours No Sepsis Action Taken by Nursing No Action Required Pulse Rate 88 77 Pulse Rate [Left] Pulse Rate from SpO2 Sensor Respiratory Rate 18 Respiratory Effort / Characteristics Non-Labored Respiratory Depth Normal Blood Pressure 117/57 L Blood Pressure [Left Arm] Blood Pressure Mean 77 Blood Pressure Mean [Left Arm] Blood Pressure Position [Left Arm] Pulse Oximetry 92 94 Oxygen Delivery Method Room Air Room Air Room Air 12/04/18 20:42 12/04/18 22:43 12/04/18 23:19 Temperature Temperature Source Sepsis Recent Fever Within 48 Hours Sepsis Action Taken by Nursing Pulse Rate 65 Pulse Rate [Left] 76 69 Pulse Rate from SpO2 Sensor 66 Respiratory Rate 18 15 20 Respiratory Effort / Characteristics Non-Labored Spontaneous Respiratory Depth Normal Blood Pressure 120/53 L Blood Pressure [Left Arm] 114/48 L 121/39 L Blood Pressure Mean 75 Blood Pressure Mean [Left Arm] 70 66 Blood Pressure Position [Left Arm] Lying Pulse Oximetry 94 100 98 Oxygen Delivery Method Room Air Room Air Room Air Constitutional: Vital signs reviewed. Eyes: Pupils are equal round reactive to light. Conjunctiva are noninjected. ENT: Pharynx is clear without erythema or exudate. Mucous membranes are moist. Neck supple without meningeal signs. Respiratory: Clear to auscultation bilaterally. Breath sounds are equal bilaterally. Cardiovascular: Regular rate and rhythm. No rubs or gallops. GI: Soft, and nondistended. Epigastric right upper quadrant tenderness. No Iyer's sign. Bowel sounds are present. Musculoskeletal: No peripheral edema. No lower extremity tenderness. Integumentary: No cyanosis. Neurological: The patient is awake and alert. No focal deficits. Psychiatric: Normal affect. Course 2039: Past medical records reviewed. The patient was evaluated in room C10, and a complete history and physical examination were performed. 2227: I reviewed the patient's case with Dr. Rosa Avalos [facility] Hospitalist. He will evaluate the patient for further management. 2255: I reviewed the patient's case with Dr. José Luis Avalos [facility] Resident. She is evaluating the patient. Consultations Consultation #1: Dr. Rosa Avalos [facility] Hospitalist Time: 22:27 Time: 22:55 Consultation #3: Dr. José Luis Avalos [facility] Resident Administered Medications Sodium Chloride (Nss 1000ml) 1,000 mls @ 125 mls/hr IV .Q8H GAURI Stop: 01/03/19 22:44 Last Admin: 12/04/18 22:42 Dose: 125 mls/hr Documented by: [id number] Discontinued Medications Morphine Sulfate (Morphine Sulfate) 6 mg IV NOW STA Stop: 12/04/18 20:44 Last Admin: 12/04/18 21:07 Dose: 6 mg Documented by: [id number] Ondansetron HCl (Zofran) 4 mg IV NOW STA Stop: 12/04/18 20:44 Last Admin: 12/04/18 21:08 Dose: 4 mg Documented by: [id number] Medical Decision Making Differential Diagnosis Differential Diagnosis includes: cholelithiasis, cholecystitis, pancreatitis, PUD, kidney stone, and UTI. Medical Records Attestation: I reviewed the patient's medical records. Home Medications Current Medication List: was personally reviewed by me Laboratory Data Attestation: I reviewed the patient's lab results. Result diagrams: 12/04/18 20:25 12/04/18 20:25 Lab Results 12/04/18 12/04/18 12/04/18 Range/Units 20:25 20:25 23:27 WBC 10.42 (4.8-10.8) K/uL RBC 3.03 L (4.7-6.1) M/uL Hgb 8.6 L (14.0-18.0) g/dL Hct 26.8 L (42-52) % MCV 88.4 (80-100) fL MCH 28.4 (25-34) pg MCHC 32.1 (32-36) g/dL RDW Std Deviation 49.4 H (36.4-46.3) fL RDW Coeff of Xiomara 15.2 H (11.5-14.5) % Plt Count 305 (130-400) K/uL MPV 9.1 (7.4-10.4) fL Immature Gran % (Auto) 0.2 % Neut % (Auto) 83.1 % Lymph % (Auto) 6.8 % Shannon % (Auto) 4.2 % Eos % (Auto) 5.4 % Baso % (Auto) 0.3 % Immature Gran # (Auto) 0.02 (0.00-0.02) K/uL Neut # (Auto) 8.66 H (1.4-6.5) K/uL Lymph # (Auto) 0.71 L (1.2-3.4) K/uL Shannon # (Auto) 0.44 (0.11-0.59) K/uL Eos # (Auto) 0.56 H (0-0.5) K/uL Baso # (Auto) 0.03 (0-0.2) K/uL Acanthocytes (Spur) 1+ Sodium 137 (136-145) mmol/L Potassium 4.3 (3.5-5.1) mmol/L Chloride 103 (98-107) mmol/L Carbon Dioxide 24 (21-32) mmol/L Anion Gap 11.0 (3-11) BUN 86 H (7-18) mg/dl Creatinine 5.95 H* (0.6-1.4) mg/dl Est Cr Clr Drug Dosing 12.4 ml/min Est GFR ( Amer) 10.0 Est GFR (Non-Af Amer) 8.6 BUN/Creatinine Ratio 14.4 (10-20) Glucose 136 H (70-99) mg/dl Calcium 12.9 H* (8.5-10.1) mg/dl Total Bilirubin 0.3 (0.2-1) mg/dl AST 42 H (15-37) U/L ALT 28 (12-78) U/L Alkaline Phosphatase 87 (45-117) U/L Total Protein 6.8 (6.4-8.2) gm/dl Albumin 3.0 L (3.4-5.0) gm/dl Globulin 3.8 (2.5-4.0) gm/dl Albumin/Globulin Ratio 0.8 L (0.9-2) Lipase 202 (73-393) U/L Urine Color Yellow Urine Appearance Clear (Clear) Urine pH 6.5 (4.5-7.5) Ur Specific [place] 1.015 (1.000-1.030) Urine Protein Trace H (Negative) Urine Glucose (UA) Negative (Negative) Urine Ketones Negative (Negative) Urine Blood Negative (Negative) Urine Nitrite Negative (Negative) Urine Bilirubin Negative (Negative) Urine Urobilinogen Negative (Negative) Ur Leukocyte Esterase Negative (Negative) Urine WBC (Auto) 1-5 (0-5) /hpf Urine RBC (Auto) 0-4 (0-4) /hpf U Hyaline Cast (Auto) 1-5 (0-5) /lpf U Epithel Cells (Auto) 5-10 H (0-5) /lpf Urine Bacteria (Auto) Negative (Negative) Imaging Data Radiologist's Impression: Radiology results as stated below per my review and the radiologist's interpretation: US gallbladder CLINICAL HISTORY: 73 years-old Male presenting with ruq pain eval for gallstones. TECHNIQUE: Real-time grayscale and limited color Doppler ultrasound imaging of the abdomen limited to the right upper quadrant was performed. COMPARISON: None. FINDINGS: Pancreas: Largely obscured due to overlying bowel gas. Liver: Mildly hyperechogenic parenchyma, although the right hemidiaphragm remains visible, likely indicating mild steatosis. The liver measures 18.1 cm in maximal sagittal dimension. Heterogeneously hypoechoic mass measuring 12.0 x 7.7 x 9.5 cm with internal vascular flow on color Doppler. An additional smaller similar-appearing 2.2 x 2.0 x 1.7 cm mass is also noted. Main portal vein patent with normal directional flow. Biliary: No intrahepatic biliary ductal dilatation. Common bile duct measures up to 3 mm in diameter. Gallbladder: Gallbladder sludge. No evidence of gallstones, gallbladder wall thickening, gallbladder distention, or pericholecystic fluid or inflammatory change. Sonographic Iyer's sign negative. Right kidney: Several simple and minimally complex cysts noted, the largest measuring 1.7 cm. No hydronephrosis. Ascites: None. Other: None. IMPRESSION: 1. Indeterminant dominant 12 cm hepatic mass. Malignancy is not excluded. Additional similar-appearing 2.2 cm hepatic mass. Dedicated contrast-enhanced l iver CT or MR is recommended for characterization. 2. Gallbladder sludge. No cholelithiasis or evidence of cholecystitis. Electronically signed by: Vasiliy Perdomo M.D. 12/04/2018 9:54 PM ECG Data Attestation: I personally reviewed and interpreted this ECG as follows: Indication: abdominal pain Rate (beats per minute): 80 Rhythm: normal sinus Findings: + PVC; no ST elevation Blood Pressure Blood Pressure Findings: Normal blood pressure Blood Pressure Disposition: did not require urgent referral MDM Narrative I did perform a limited focused review of portions of the patient's old chart on the electronic medical record. The patient has had no prior visits to this hospital. I did evaluate the patient as noted above. Patient is presenting with 3 days of abdominal pain. He has no other associated symptoms. He does have tenderness in the right upper quadrant. IV access was established. The patient was placed on a continuous monitoring engineer. I did order and personally review the patient's 12-lead EKG as described above. There is no evidence of acute ischemia. I did order and review the patient's blood work as noted in the electronic medical record. He is anemic. His creatinine is elevated above his baseline. His potassium is normal. Calcium is almost 13. I did start him on IV fluids with normal saline. I did order an ultrasound of the right upper qu adrant. I did review the images myself as well as the radiology report as described above. He has a large hepatic mass and a smaller hepatic mass. I did discuss the test results with the patient. The case was discussed with the hospitalist service and senior case manager. Impression & Plan Acute kidney injury, Liver mass, Hypercalcemia Discharge Plan Visit Data Chief Complaint: Abdominal Pain Stated Complaint: ABDOMINAL PAIN, HURTS TO TAKE DEEP BREATHS ED Provider: Hari Naranjo Discharge Problem: Acute kidney injury, Liver mass, Hypercalcemia Patient Disposition: Being Evaluated by Hospitalist Discharge Instructions Interventions: ED Discharge Assessment Last Done: 12/05/18 00:10 Forms Stand Alone Forms: Call Back Authorization, [facility] Prescriptions Prescriptions: No Action atorvastatin [Lipitor] 80 mg Tablet 80 mg PO HS Qty: 0 RF: 0 aspirin 81 mg Tablet,Delayed Release (Dr/Ec) 81 mg PO DAILY Qty: 0 RF: 0 calcium carbonate-vitamin D3 [Os-Naseem 500 + D3] 500 mg(1,250mg) -200 unit Tablet 1 tab PO DAILY Qty: 0 RF: 0 ferrous sulfate 325 mg (65 mg iron) Tablet 325 mg PO DAILY Qty: 0 RF: 0 clopidogrel [Plavix] 75 mg Tablet 75 mg PO DAILY Qty: 0 RF: 0 pantoprazole [Protonix] 40 mg Tablet,Delayed Release (Dr/Ec) 40 mg PO DAILY PRN (Reason: Acid Reflux) Qty: 0 RF: 0 citalopram 40 mg Tablet 20 mg PO DAILY Qty: 0 RF: 3 isosorbide mononitrate 60 mg Tablet Extended Release 24 Hr 60 mg PO QAM Qty: 0 RF: 0 hydralazine 50 mg Tablet 50 mg PO TID Qty: 0 RF: 0 diltiazem HCl 240 mg Tablet Extended Release 24 Hr 240 mg PO DAILY Qty: 0 RF: 3 cholecalciferol (vitamin D3) 3,000 unit Tablet 3,000 unit PO DAILY Qty: 0 RF: 0 gabapentin 300 mg capsule 300 mg PO BID RF: 0 finasteride 5 mg tablet 5 mg PO DAILY RF: 0 losartan 50 mg tablet 50 mg PO DAILY RF: 0 Referrals Referrals: Vinod Pang [Primary Care Provider] - The scribe's documentation has been prepared under my direction and personally reviewed by me in its entirety. I confirm that the note above accurately reflects all work, treatment, procedures, and medical decision making performed by me.
[2018-12-05] MEDS ORDERED: PANTOprazole 40 MG TAB PO PRN (01:13)
[2018-12-05] MEDS: ATORVASTATIN 40 MG TAB PO SCH ×2 (01:44→20:52)
[2018-12-05] MEDS: FINASTERIDE 5 MG TAB PO SCH ×2 (01:44→08:03)
[2018-12-05 02:19] LABS: Basophils # (auto) 0.02 K/uL (0-0.2); Basophils % (auto) 0.3 %; Eosinophils # (auto) 0.66 K/uL (0-0.5); Eosinophils % (auto) 8.5 %; Hematocrit (blood only) 26.9 % (42-52); Hemoglobin 8.6 g/dL (14.0-18.0); Immature Granulocytes # (auto) 0.02 K/uL (0.00-0.02); Immature Granulocytes % (auto) 0.3 %; Lymphocytes % (auto) 6.4 %; Mean Corpuscular Volume 88.5 fL (80-100); Mean Platelet Volume 8.5 fL (7.4-10.4); Monocytes % (auto) 12.8 %; Neutrophils % (auto) 71.7 %; Platelet Count 277 K/uL (130-400); RDW Coefficient of Variation 15.4 % (11.5-14.5); RDW Standard Deviation 49.6 fL (36.4-46.3); Red Blood Count 3.04 M/uL (4.7-6.1)
[2018-12-05 02:42] LABS: Acanthocytes 1+
[2018-12-05 02:52] LABS: BUN Creatinine Ratio 13.7 (10-20); Creatinine Clr Calc Pharmacy 12.1 ml/min; Est GFR (African American) 9.8; Est GFR (Non-African American) 8.5; Potassium 4.6 mmol/L (3.5-5.1)
[2018-12-05 06:58] LABS: Basophils # (auto) 0.03 K/uL (0-0.2); Basophils % (auto) 0.4 %; Eosinophils # (auto) 0.54 K/uL (0-0.5); Eosinophils % (auto) 6.5 %; Hematocrit (blood only) 25.7 % (42-52); Hemoglobin 8.2 g/dL (14.0-18.0); Immature Granulocytes # (auto) 0.02 K/uL (0.00-0.02); Immature Granulocytes % (auto) 0.2 %; Lymphocytes # (auto) 0.61 K/uL (1.2-3.4); Lymphocytes % (auto) 7.4 %; Mean Corpuscular Hgb Conc 31.9 g/dL (32-36); Mean Corpuscular Volume 89.5 fL (80-100); Mean Platelet Volume 8.7 fL (7.4-10.4); Monocytes # (auto) 0.59 K/uL (0.11-0.59); Monocytes % (auto) 7.1 %; Neutrophils % (auto) 78.4 %; Platelet Count 253 K/uL (130-400); RDW Coefficient of Variation 15.4 % (11.5-14.5); RDW Standard Deviation 49.9 fL (36.4-46.3); Red Blood Count 2.87 M/uL (4.7-6.1); White Blood Count 8.29 K/uL (4.8-10.8)
[2018-12-05 07:24] LABS: Acanthocytes 1+; Ovalocytes 1+
[2018-12-05 07:37] LABS: BUN Creatinine Ratio 13.6 (10-20); Calcium 11.4 mg/dl (8.5-10.1); Creatinine Clr Calc Pharmacy 12.4 ml/min; Est GFR (African American) 10.1; Est GFR (Non-African American) 8.7; Potassium 4.9 mmol/L (3.5-5.1)
[2018-12-05] MEDS: CLOPIDOGREL BISULFATE 75 MG TAB PO SCH (08:10)
[2018-12-05] MEDS: ASPIRIN 81 MG ECTAB PO SCH (08:10)
[2018-12-05] MEDS: SODIUM CHLORIDE 0.9% 1000ML 1,000 ML IV SCH ×2 (08:10→16:23)
[2018-12-05] MEDS: FERROUS SULFATE 325 MG TAB PO SCH (08:10)
[2018-12-05] MEDS: CITALOPRAM 20 MG TAB PO SCH (08:10)
[2018-12-05] MEDS ORDERED: GABAPENTIN 300 MG CAP PO SCH (09:00)
--- NOTE | 2018-12-05 09:43 | Consultation Report ---
DATE OF CONSULTATION: 12/05/2018 REASON FOR CONSULTATION: 1. Chronic anemia. 2. Hepatic mass. HISTORY OF PRESENT ILLNESS: Mr. De La Cruz is a very pleasant 73-year-old gentleman with multiple comorbid issues admitted to [facility] yesterday with subacute onset right-sided flank pain. He states for approximately 3 days, he has experienced intermittent dull ache and sharp stabbing pain which worsens on inspiration. He believes pain is unrelated to consumption of food but notes a decrease in appetite. He presently denies diarrhea or constipation and relates no fevers, chills or sweats. Mr. De La Cruz was seen by Dr. Flores back in early October for normocytic normochromic anemia. At that time, Dr. Flores was not terribly impressed with his anemia profile and placed him on oral iron supplementation. There was no discussion of incorporation of Procrit. In the midst of his admission, ultrasound of the abdomen was performed revealing a relatively large heterogeneous hypoechoic mass measuring 12 x 7.7 x 9.5 with internal vascular flow on color Doppler. An additional smaller similar appearing lesion measuring 2.2 x 2.0 x 1.7 cm was also noted. According to Mr. De La Cruz, biopsy is currently planned. Current hemoglobin level 8.2 and creatinine 5.9. Primary service is asking for assistance regarding the patient's chronic anemia and possibly depending on biopsy results, evaluation for a newly discovered hepatic mass. PAST MEDICAL HISTORY: Positive for gastroesophageal reflux disease, obstructive sleep apnea, depression, hypercholesterolemia, hypertension, peripheral neuropathy, coronary artery disease, chronic normocytic normochromic anemia, hypercalcemia. He also suffers from peripheral vascular disease. PAST SURGICAL HISTORY: Includes lumbar discectomy and umbilical hernia repair. CURRENT HOME MEDICATIONS: Include aspirin 81 mg p.o. daily, Lipitor 80 mg p.o. at bedtime, calcium carbonate 1 tablet p.o. daily, Plavix 75 mg p.o. q. daily, ferrous sulfate 325 mg p.o. daily, Protonix 40 mg p.o. daily, citalopram 20 mg p.o. daily, diltiazem 240 mg p.o. daily, hydralazine 50 mg p.o. t.i.d., Imdur 60 mg p.o. daily, cholecalciferol 3000 units p.o. daily, finasteride 5 mg p.o. daily, gabapentin 300 mg p.o. b.i.d., losartan 50 mg p.o. daily. ALLERGIES: No known drug allergies. SOCIAL HISTORY: The patient is . He is retired. He is a reformed smoker, positive for social alcohol, negative for substance abuse. FAMILY HISTORY: Noncontributory. REVIEW OF SYSTEMS: As per HPI. GENERAL: The patient presents to our facility with right-sided flank pain, negative for fevers, chills or sweats. He has been a bit more anorexic, but no dramatic weight loss reported. SKIN: No rashes or lesions. No history of dermatoses. HEENT: Denies headaches, lightheadedness or dizziness. No acute visual or hearing deficits. No sinus symptoms, sore throat, or dysphagia. LYMPHATICS: No history of lymphoproliferative disease. CARDIAC: Negative for coronary artery disease. No angina or palpitations. PULMONARY: Negative for COPD. No shortness of breath, dyspnea or orthopnea. No cough or hemoptysis. GASTROINTESTINAL: Positive again for abdominal pain. Negative for nausea and vomiting. No diarrhea or constipation or hematochezia or melena stools reported. GENITOURINARY: No hematuria, dysuria, urinary incontinence. PSYCHIATRIC: Positive for depression. ENDOCRINE: Negative for diabetes mellitus or thyroid disease. NEUROLOGIC: Negative for seizure, stroke, or migraine headache. HEMATOLOGIC: Currently under Dr. Flores's care for normocytic normochromic anemia thought to be suggestive of chronic disease. PHYSICAL EXAMINATION: GENERAL: He is a very pleasant 73-year-old gentleman, awake, alert, and appropriate, in no acute distress at this time. VITAL SIGNS: Temperature 36.7, pulse 71, respiratory rate 16, blood pressure 111/61. SKIN: Warm, dry, noncyanotic without petechiae, rash or ecchymosis. HEENT: Head atraumatic, normocephalic. Eyes, PERRLA, EOMI. Sclerae nonicteric. No conjunctival injection. Nares are patent without rhinorrhea or discharge. Throat is clear. Tongue is midline. Mucous membranes are moist. NECK: Supple without JVD or thyromegaly. LYMPHATIC: No cervical, supraclavicular, axillary palpable nodes. HEART: Regular rate and rhythm. No clicks, rubs, murmurs, gallops. LUNGS: Clear to auscultation bilaterally. ABDOMEN: Obese, soft, nontender, nondistended, without palpable hepatosplenomegaly. EXTREMITIES: No clubbing, cyanosis, or edema. MUSCULOSKELETAL: Strength and pulses are equal in all 4 quadrants. NEUROLOGIC: He is awake, alert and oriented x3. Cranial nerves II-XII are grossly intact. LABORATORY DATA: Sodium 140, potassium 4.9, chloride 107, carbon dioxide 26, BUN 80, creatinine 5.9. WBC count 80-90, hemoglobin 8.2, platelet count 253,000. Alpha fetoprotein and CEA level is pending. IMPRESSION: 1. Large hepatic mass, suspect hepatocellular carcinoma. 2. Normocytic normochromic anemia consistent with chronic disease/renal insufficiency. 3. Right flank pain attributable to #1. PLAN: I was asked to see Mr. De La Cruz at bedside this morning. Reviewed his medical record and Dr. Flores's initial consultation, which took place back in early October 2018. First and foremost, agree with pursuing biopsy of the large hepatic mass. Alpha-fetoprotein may be revealing as well. Mass this large is definitely suspicious for underlying hepatocellular carcinoma. Will await confirmation before making further recommendations. In regards to this gentleman's anemia, I agree with Dr. Flores, I believe Mr. De La Cruz has a component of anemia of chronic disease as well as renal insufficiency. He is on supplemental iron. Perhaps the addition of Procrit 40,000 units subQ during his hospital stay and I will discuss further outpatient Procrit with Dr. Flores to be provided in our office. Agree with medical management otherwise and will continue to follow along with you. I will alert Dr. Flores to this gentleman's liver status. Thank you very much for allowing us to participate in his care.
--- NOTE | 2018-12-05 10:34 | Nephrology Consultation ---
Date of Consultation December 05, 2018 Assessment & Plan (1) Acute kidney injury: Manuel stage III/B 3B/4 chronic kidney disease with baseline creatinine 2.5 secondary to microvascular disease. Admitted to the hospital with 3 days history of right upper quadrant abdominal pain, found to have an hepatitic mass currently, getting further evaluation with MRI, ultrasound and plan for possible biopsy. On admission his was found to have acute kidney injury, creatinine was 6 with hypercalcemia. Acute kidney injury could be hemodynamically mediated in the setting of hypercalcemia , possibly causing hypercalcemia induced diuresis. He already received a dose of calcitonin, calcium started to improve. --conitnue on IV normal saline at 100 mL/hour , if pt become volume overloaded, give IV Lasix to improve volume status however continue IV fluid for hypercalcemia --discontinue calcium, vitamin-D and avoid all calcium and vitamin-D supplement --hold ACEI/ ARB --consider Zometa if calcium does not improve as expected while waiting for PTH and PTH RP. Check vitamin-D. --continue to monitor renal function closely, no indication for dialysis at this point however if renal function does not improve or patient develops critical electrolyte abnormality, may need to consider renal replacement therapy. With the new finding liver mass, we should wait for the MRI and biopsy for definitive diagnosis before we consider renal replacement therapy Will follow Thank you for allowing me to participate in your patient's care. It was a pleasure to see manuel (2) Hypercalcemia: (3) Liver mass: (4) Chronic renal disease, stage IV: (5) Hypertension: (6) Anemia: History of Present Illness Reason for Consultation: Acute kidney injury with history of CKD, hypercalcemia. Attending Physician: Eliseo Rivera, History of Present Illness Manuel Cardoso is a 73-year-old male with PMH of stage IIIB/4 kidney disease, hypertension diabetes, history of coronary artery disease admitted to the hospital with Acute kidney injury and hypercalcemia. Nephrology consult was requested to manage KATHY. EMR records werereviewed in detail during patient's visit. Manuel presented to the hospital yesterday with 3 days history of right upper quadrant abdominal pain, generalized weakness and weight loss. On admission he was found to acute kidney injury, creatinine was 6, hypercalcemia corrected calcium was above 13. GB USG showed large hepatic mass suspicious for questionable hepatocellular carcinoma versus metastatic disease. He reports almost 25 pound weight loss over last 6 months. Appetite has been poor. At home he was on calcium supplements, vitamin-D and multivitamin daily, which currently on hold. PTH, PTHrP pending. History of chronic anemia previously had extensive GI workup including EGD, colonoscopy and capsule endoscopy all has been unrevealing. Hemoglobin has been staying around 9.0. Previously received IV Venofer, has been on oral iron. He was evaluated by liquor store manager in October and continued on oral iron. Has history of stage IIIB/4 chronic kidney disease, secondary to microvascular disease, baseline creatinine has been around 2.5. Has been voiding normally. No history of significant proteinuria or hematuria. Was on losartan 50 milligram at home is currently on hold. Blood pressure has been relatively stable. Has been feeling lightheaded, however denies shortness breath or chest pain. Right upper quadrant abdominal pain slightly better. Allergies Allergy/AdvReac Type Severity Reaction Status Date / Time No Known Drug Allergies Allergy Unknown NKDA Verified 12/04/18 23:30 Home Medications Home Medications Medication Instructions Recorded Confirmed Type aspirin 81 mg PO DAILY #0 12/21/14 12/04/18 History atorvastatin [Lipitor] 80 mg PO HS #0 tab 12/21/14 12/04/18 History calcium carbonate-vitamin D3 1 tab PO DAILY #0 tab 12/21/14 12/04/18 History [Os-Naseem 500 + D3] clopidogrel [Plavix] 75 mg PO DAILY #0 tab 12/21/14 12/04/18 History ferrous sulfate 325 mg PO DAILY #0 12/21/14 12/04/18 History pantoprazole [Protonix] 40 mg PO DAILY PRN #0 tab 12/21/14 12/04/18 History citalopram 20 mg PO DAILY #0 tab 07/12/16 12/04/18 History diltiazem HCl 240 mg PO DAILY #0 cap 07/12/16 12/04/18 History hydralazine 50 mg PO TID #0 tab 07/12/16 12/04/18 History isosorbide mononitrate 60 mg PO QAM #0 tab 07/12/16 12/04/18 History cholecalciferol (vitamin D3) 3,000 unit PO DAILY #0 04/23/17 12/04/18 History finasteride 5 mg PO DAILY 12/04/18 12/04/18 History gabapentin 300 mg PO BID 12/04/18 12/04/18 History losartan 50 mg PO DAILY 12/04/18 12/04/18 History Patient History Medical History Anemia Metabolic acidosis ARF (acute renal failure) Chronic renal disease, stage IV Hypertension Surgical History History of lumbar discectomy (Acute) History of umbilical hernia repair (Acute) Social History Communication Ability: Effective 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 Physical Exam Vital Signs (Past 24 Hours): Last Vital Signs Temp 36.7 C 12/05/18 06:58 Pulse 71 12/05/18 06:58 Resp 16 12/05/18 06:58 BP 111/61 12/05/18 06:58 Pulse Ox 92 12/05/18 06:58 Physical Exam: GENERAL: elderly male, AAA x 3, not in any distress. pale HEENT: Atraumatic, normocephalic. NECK: Supple, no JVD, no carotid bruit appreciated. ENT: No sinus tenderness MOUTH and THROAT: Moist oral mucosa, RESPIRATORY: Normal breathing efforts, clear to auscultation bilaterally, no wheezes or rales. CARDIOVASCULAR: S1, S2 normal, rate rhythm regular. ABDOMEN: Soft, nontender, positive bowel sound. MUSCULOSKELETAL: No CVA tenderness. No joint swelling, erythema or tenderness. Normal range of motion. SKIN: No skin rash EXTREMITY: No lower extremity edema NEURO: No gross focal neurological deficit, speech fluent. PSYCHIATRY: Normal mood and judgment
--- NOTE | 2018-12-05 10:43 | Magnetic Resonance Report ---
MRI OF THE ABDOMEN WITHOUT CONTRAST CLINICAL HISTORY: Liver mass. Right-sided abdominal pain. Weight loss. TECHNIQUE: Utilizing a 1.5 Mena magnet and dedicated coil, multiplanar, multi echo imaging of the ab domen was performed. No intravenous contrast was administered given patient's renal insufficiency.. COMPARISON STUDY: Right upper quadrant ultrasound December 04, 2018. FINDINGS: The heart is moderately enlarged. There are trace bilateral pleural effusions. Liver morpho logy is normal. Fatty infiltration of the liver is noted with loss of signal on out of phase sequence . Note is made of an 11 x 8.4 x 9.2 cm segment 8/7 lobulated T2 hyperintense, T1 hypointense mass wit hin the liver which may extend through the liver capsule and is hyperintense on the diffusion-weighte d sequence. This corresponds to the lesion shown on ultrasound. This is suboptimally assessed on this unenhanced exam. Note is also made of a 2 cm inferior right hepatic lobe lesion and a 1.7 cm subcaps ular segment 7 lesion. These lesions are also hyperintense on the diffusion-weighted sequence for The re is no biliary or pancreatic ductal dilatation. No cholelithiasis or choledocholithiasis is noted. The course and caliber of the main pancreatic duct is normal. No abdominal lymphadenopathy is present . There may be trace perihepatic ascites. An indeterminate 1 cm hypodense focus within the spleen is noted. T2 hyperintense bilateral renal lesions are suboptimally assessed on this unenhanced exam but favor cysts. Adrenal glands are unremarkable. IMPRESSION: 1. 11 cm lobulated right hepatic lobe mass highly suggestive of malignancy. This mass favors a primar y liver tumor such as cholangiocarcinoma or less likely hepatocellular carcinoma. This would be osiel ble to ultrasound-guided fine-needle aspiration. 2. Two additional hepatic lesions which measure up to 2 cm which are suboptimally assessed on this un enhanced exam but worrisome for satellite lesions/metastases. 3. Fatty infiltration of the liver. 4. No abdominal lymphadenopathy. Electronically signed by: Virgil Pinzon M.D. 12/05/2018 10:42 AM
--- NOTE | 2018-12-05 11:35 | Ultrasound Report ---
DOPPLER ULTRASOUND RENAL ARTERIES CLINICAL HISTORY: Renal failure. COMPARISON STUDY: MRI of the abdomen November 27, 2018. Right upper quadrant ultrasound December 04, 2018. TECHNIQUE: Grayscale and color and duplex Doppler sonography of the abdominal aorta and renal arterie s was performed. FINDINGS: Right kidney measures 10.9 cm in maximal dimension and the left measures 11.7 cm. Both kidn eys are atrophic and echogenic. A few renal cysts are noted. Study is mildly compromised by suboptima l penetration. The peak systolic velocity within the abdominal aorta was 124 cm/s. Peak systolic [place] within visualized portions of the right renal artery was 83 cm/s. Peak systolic velocity within visualized portions of the left renal artery was 71 cm/s. Renal arteries were partially obscured. The bilateral renal arteries and veins were patent. Systolic up stroke within the segmental vessels of b oth kidneys were processed. IMPRESSION: 1. Portions of the bilateral renal arteries obscured. Therefore, this study is technically nondiagnos tic but no elevated velocities within visualized portions of the renal arteries. 2. Moderate bilateral renal atrophy and increased echogenicity. Electronically signed by: Virgil Pinzon M.D. 12/05/2018 11:34 AM
[2018-12-05 11:43] LABS: INR 1.1 (0.9-1.1); Prothrombin Time 10.9 Seconds (9.0-12.0)
--- NOTE | 2018-12-05 16:24 | Family Medicine Progress Note ---
Date of Service December 05, 2018 Assessment & Plan (1) Acute kidney injury: Mr. De La Cruz is a 73 year old male with a past medical history including chronic kidney disease stage IV, coronary artery disease s/p stent placement x1, hypertension, peripheral vascular disease s/p balloon angioplasty and stent placement, hypercholesterolemia, GERD, history of obstructive sleep apnea who presents to the emergency department with a 3-day history of right-sided abdominal pain. In the ED, patient found to have critical labs, including a creatinine level of 5.95 and a calcium level of 12.9. He was also found to have 12 cm and 2.2 cm hepatic masses. -admit to telemetry -creatinine level was 5.95 on admission - significantly worse than baseline (2.3) and from labs drawn in October (3.) -Today (12/05) 5.90 -Unsure of cause of sudden worsening in renal function. Patient was presumed to have chronic kidney disease related to microvascular disease -Renal artery dopplers = Portions of the bilateral renal arteries obscured. Therefore, this study is technically nondiagnostic but no elevated velocities within visualized portions of the renal arteries; Moderate bilateral renal atrophy and increased echogenicity -Nephrology consulted, and no indication for dialysis at this point. Will m onitor electrolyte for abnormalities. Hypercalcemia -calcium level 12.9 on admission -suspect secondary to possible underlying malignancy -he was started on NS at 125 mls/hr in the ED, continue IVF -Calcitonin 4units/kg dose ordered SQ x2, will follow with BMP -parathyroid hormone related peptide ordered to further evaluate -home Vitamin D and calcium supplementation discontinued -on 12/05 calcium trended down to 11.4 Liver Mass -suspicion is for hepatocellular carcinoma -MRI abdomen w/out contrast = 11 cm lobulated right hepatic lobe mass highly suggestive of malignancy; Two additional hepatic lesions which measure up to 2 cm which are suboptimally assessed on this unenhanced exam but worrisome for satellite lesions/metastases; Fatty infiltration of the liver; No abdominal lymphadenopathy. -AFP and CEA ordered; CEA negative, AFP pending -heme/onc consulted -PTH ordered and was normal -Radiology consulted for fine needle aspiration of mass for biopsy. -Morphine 6mg IV PRN ordered for right abdominal pain/flank pain. Anemia -Hgb generally between 10 and 11, currently 8.6 on admission; 12/05 8.2. -Likely related to chronic kidney disease given slow progression (last Hgb in October was 9.4) and negative prior endoscopic workup. -continue home iron supplementation CAD/PVD -continue home aspirin and plavix Peripheral Neuropathy -hold home gabapentin in the setting of worsening kidney function Hypertension -continue home diltiazem, hydralazine and isosorbide mononitrate -hold home losartan given KATHY Hypercholesterolemia -continue home atorvastatin Depression -continue citalopram GERD -continue home protonix MAEGAN -CPAP ordered, however patient does not routinely wear it Code status: FULL DVT Prophylaxis: SCDs Disposition: admit to telemetry F/E/N: NPO for MRI abdomen tomorrow AM. Repeating BMP q6h to monitor creatinine and calcium. NS at 125 mls/hr. (2) Liver mass: (3) Hypercalcemia: (4) Anemia: (5) Hypertension: (6) Coronary artery disease: (7) Peripheral vascular disease: (8) Chronic renal disease, stage IV: (9) MAEGAN (obstructive sleep apnea): (10) Hypercholesteremia: Supervising Physician Co-Signing Physician Notes I saw the patient with the resident physician and confirmed muniz portions of the history and physical exam. I agree with the impression and plan as noted in the resident documentation. IMPRESSION Acute on chronic renal failure Hypercalcemia, perhaps hypercalcemia malignancy Hepatic mass, suspect malignancy Anemia, chronic PLAN Nephrology and oncology consults Fine-needle aspiration with ultrasound guidance of hepatic mass Monitor calcium and renal function. Mechanical DVT prophylaxis in light of his anemia and pending fine-needle aspiration Subjective Mr. De La Cruz continues to have right flank/abdominal pain today. He denies chest pain, shortness of breath, black/bloody bowels, nausea, vomiting, diarrhea. He states last BM was yesterday and was normal. Physical Exam Vital Signs (Past 24 Hours): Last Vital Signs Temp 36.4 C L 12/05/18 15:50 Pulse 56 L 12/05/18 15:50 Resp 17 12/05/18 15:50 BP 144/57 H 12/05/18 15:50 Pulse Ox 96 12/05/18 15:50 Constitutional: WD/WN, vitals as above Eyes: + anicteric sclerae Neck: normal visual inspection and trachea midline Respiratory: normal respiratory effort, lungs clear to auscultation Cardiovascular: RRR, no murmur, no edema Gastrointestinal (Abdomen): Percussion/Palpation: + abdomen tender (right abdomen) and abdomen soft; no guarding Musculoskeletal: Head/Neck/Chest: normocephalic and head atraumatic Skin: no rashes, warm and dry Neurologic: moves all extremities and awake Psychiatric: A+Ox3, euthymic affect Results & Data Laboratory Results Laboratory Results - last 24 hr 12/04/18 12/04/18 12/04/18 20:25 20:25 23:27 WBC 10.42 RBC 3.03 L Hgb 8.6 L Hct 26.8 L MCV 88.4 MCH 28.4 MCHC 32.1 RDW Std Deviation 49.4 H RDW Coeff of Xiom[place] 15.2 H Plt Count 305 MPV 9.1 Immature Gran % (Auto) 0.2 Neut % (Auto) 83.1 Lymph % (Auto) 6.8 [place] % (Auto) 4.2 Eos % (Auto) 5.4 Baso % (Auto) 0.3 Immature Gran # (Auto) 0.02 Neut # (Auto) 8.66 H Lymph # (Auto) 0.71 L [place] # (Auto) 0.44 Eos # (Auto) 0.56 H Baso # (Auto) 0.03 Ovalocytes Acanthocytes (Spur) 1+ PT INR Sodium 137 Potassium 4.3 Chloride 103 Carbon Dioxide 24 Anion Gap 11.0 BUN 86 H Creatinine 5.95 H* Est Cr Clr Drug Dosing 12.4 Est GFR ( Amer) 10.0 Est GFR (Non-Af Amer) 8.6 BUN/Creatinine Ratio 14.4 Glucose 136 H Calcium 12.9 H* Phosphorus Total Bilirubin 0.3 AST 42 H ALT 28 Alkaline Phosphatase 87 Total Protein 6.8 Albumin 3.0 L Globulin 3.8 Albumin/Globulin Ratio 0.8 L Lipase 202 Carcinoembryonic Ag PTH Intact Urine Color Yellow Urine Appearance Clear Urine pH 6.5 Ur Specific [place] 1.015 Urine Protein Trace H Urine Glucose (UA) Negative Urine Ketones Negative Urine Blood Negative Urine Nitrite Negative Urine Bilirubin Negative Urine Urobilinogen Negative Ur Leukocyte Esterase Negative Urine WBC (Auto) 1-5 Urine RBC (Auto) 0-4 U Hyaline Cast (Auto) 1-5 U Epithel Cells (Auto) 5-10 H Urine Bacteria (Auto) Negative 12/05/18 12/05/18 12/05/18 02:07 02:07 06:36 WBC 7.80 8.29 RBC 3.04 L 2.87 L Hgb 8.6 L 8.2 L Hct 26.9 L 25.7 L MCV 88.5 89.5 MCH 28.3 28.6 MCHC 32.0 31.9 L RDW Std Deviation 49.6 H 49.9 H RDW Coeff of [place] 15.4 H 15.4 H Plt Count 277 253 MPV 8.5 8.7 Immature Gran % (Auto) 0.3 0.2 Neut % (Auto) 71.7 78.4 Lymph % (Auto) 6.4 7.4 [place] % (Auto) 12.8 7.1 Eos % (Auto) 8.5 6.5 Baso % (Auto) 0.3 0.4 Immature Gran # (Auto) 0.02 0.02 Neut # (Auto) 5.60 6.50 Lymph # (Auto) 0.50 L 0.61 L [place] # (Auto) 1.00 H 0.59 Eos # (Auto) 0.66 H 0.54 H Baso # (Auto) 0.02 0.03 Ovalocytes 1+ Acanthocytes (Spur) 1+ 1+ PT INR Sodium 138 Potassium 4.6 Chloride 104 Carbon Dioxide 26 Anion Gap 8.0 BUN 82 H Creatinine 6.03 H* Est Cr Clr Drug Dosing 12.1 Est GFR ( Amer) 9.8 Est GFR (Non-Af Amer) 8.5 BUN/Creatinine Ratio 13.7 Glucose 104 H Calcium 12.0 H Phosphorus Total Bilirubin AST ALT Alkaline Phosphatase Total Protein Albumin Globulin Albumin/Globulin Ratio Lipase Carcinoembryonic Ag PTH Intact Urine Color Urine Appearance Urine pH Ur Specific [place] Urine Protein Urine Glucose (UA) Urine Ketones Urine Blood Urine Nitrite Urine Bilirubin Urine Urobilinogen Ur Leukocyte Esterase Urine WBC (Auto) Urine RBC (Auto) U Hyaline Cast (Auto) U Epithel Cells (Auto) Urine Bacteria (Auto) 12/05/18 12/05/18 12/05/18 06:36 06:36 06:36 WBC RBC Hgb Hct MCV MCH MCHC RDW Std Deviation RDW Coeff of [place] Plt Count MPV Immature Gran % (Auto) Neut % (Auto) Lymph % (Auto) [place] % (Auto) Eos % (Auto) Baso % (Auto) Immature Gran # (Auto) Neut # (Auto) Lymph # (Auto) [place] # (Auto) Eos # (Auto) Baso # (Auto) Ovalocytes Acanthocytes (Spur) PT INR Sodium 140 Potassium 4.9 Chloride 107 Carbon Dioxide 26 Anion Gap 7.0 BUN 80 H Creatinine 5.90 H* Est Cr Clr Drug Dosing 12.4 Est GFR ( Amer) 10.1 Est GFR (Non-Af Amer) 8.7 BUN/Creatinine Ratio 13.6 Glucose 100 H Calcium 11.4 H Phosphorus 7.6 H Total Bilirubin AST ALT Alkaline Phosphatase Total Protein Albumin Globulin Albumin/Globulin Ratio Lipase Carcinoembryonic Ag < 0.5 PTH Intact Urine Color Urine Appearance Urine pH Ur Specific [place] Urine Protein Urine Glucose (UA) Urine Ketones Urine Blood Urine Nitrite Urine Bilirubin Urine Urobilinogen Ur Leukocyte Esterase Urine WBC (Auto) Urine RBC (Auto) U Hyaline Cast (Auto) U Epithel Cells (Auto) Urine Bacteria (Auto) 12/05/18 12/05/18 11:18 11:18 WBC RBC Hgb Hct MCV MCH MCHC RDW Std Deviation RDW Coeff of [place] Plt Count MPV Immature Gran % (Auto) Neut % (Auto) Lymph % (Auto) [place] % (Auto) Eos % (Auto) Baso % (Auto) Immature Gran # (Auto) Neut # (Auto) Lymph # (Auto) [place] # (Auto) Eos # (Auto) Baso # (Auto) Ovalocytes Acanthocytes (Spur) PT 10.9 INR 1.1 Sodium Potassium Chloride Carbon Dioxide Anion Gap BUN Creatinine Est Cr Clr Drug Dosing Est GFR ( Amer) Est GFR (Non-Af Amer) BUN/Creatinine Ratio Glucose Calcium Phosphorus Total Bilirubin AST ALT Alkaline Phosphatase Total Protein Albumin Globulin Albumin/Globulin Ratio Lipase Carcinoembryonic Ag PTH Intact 36.5 Urine Color Urine Appearance Urine pH Ur Specific [place] Urine Protein Urine Glucose (UA) Urine Ketones Urine Blood Urine Nitrite Urine Bilirubin Urine Urobilinogen Ur Leukocyte Esterase Urine WBC (Auto) Urine RBC (Auto) U Hyaline Cast (Auto) U Epithel Cells (Auto) Urine Bacteria (Auto) Medications Administered Aspirin (Ecotrin Ectab) 81 mg PO DAILY GAURI Stop: 01/04/19 08:59 Last Admin: 12/05/18 08:10 Dose: 81 mg Documented by: [id number] Atorvastatin Calcium (Lipitor) 80 mg PO HS [facility] Stop: 01/04/19 20:59 Last Admin: 12/05/18 01:44 Dose: 80 mg Documented by: [id number] Citalopram Hydrobromide (Celexa) 20 mg PO DAILY GAURI Stop: 01/04/19 08:59 Last Admin: 12/05/18 08:10 Dose: 20 mg Documented by: [id number] Clopidogrel Bisulfate (Plavix) 75 mg PO DAILY GAURI Stop: 01/04/19 08:59 Last Admin: 12/05/18 08:10 Dose: 75 mg Documented by: [id number] Ferrous Sulfate (Feosol) 325 mg PO DAILY GAURI Stop: 01/04/19 08:59 Last Admin: 12/05/18 08:10 Dose: 325 mg Documented by: [id number] Finasteride (Proscar) 5 mg PO DAILY GAURI Stop: 01/04/19 08:59 Last Admin: 12/05/18 08:03 Dose: Not Given Documented by: [id number] Admin: 12/05/18 01:44 Dose: 5 mg Documented by: [id number] Sodium Chloride (Nss 1000ml) 1,000 mls @ 125 mls/hr IV .Q8H GAURI Stop: 01/03/19 22:44 Last Admin: 12/05/18 16:23 Dose: 125 mls/hr Documented by: [id number] Infusion: 12/05/18 16:10 Dose: 125 mls/hr Documented by: [id number] Admin: 12/05/18 08:10 Dose: 125 mls/hr Documented by: [id number] Infusion: 12/05/18 06:42 Dose: 125 mls/hr Documented by: [id number] Admin: 12/04/18 22:42 Dose: 125 mls/hr Documented by: [id number]
[2018-12-05] MEDS ORDERED: MoRPHine SULFATE 4 MG/ML 1 ML CARP\\VIAL IV PRN (16:33)
[2018-12-05] MEDS ORDERED: ZOLEDRONIC ACID 4 MG in 0.9 % SODIUM CHLORIDE 100 ML IV ONE (18:45)
[2018-12-06] MEDS ORDERED: Nursing to Pharmacy Communication ONE (00:59)
[2018-12-06] MEDS: SODIUM CHLORIDE 0.9% 1000ML 1,000 ML IV SCH ×2 (05:11→16:07)
[2018-12-06 06:09] LABS: Basophils # (auto) 0.02 K/uL (0-0.2); Basophils % (auto) 0.3 %; Eosinophils # (auto) 0.41 K/uL (0-0.5); Eosinophils % (auto) 5.5 %; Hematocrit (blood only) 26.5 % (42-52); Hemoglobin 8.2 g/dL (14.0-18.0); Immature Granulocytes # (auto) 0.02 K/uL (0.00-0.02); Immature Granulocytes % (auto) 0.3 %; Lymphocytes # (auto) 0.25 K/uL (1.2-3.4); Lymphocytes % (auto) 3.4 %; Mean Corpuscular Hgb Conc 30.9 g/dL (32-36); Mean Corpuscular Volume 89.8 fL (80-100); Mean Platelet Volume 8.7 fL (7.4-10.4); Monocytes % (auto) 8.1 %; Neutrophils # (auto) 6.11 K/uL (1.4-6.5); Neutrophils % (auto) 82.4 %; Platelet Count 275 K/uL (130-400); RDW Standard Deviation 49.6 fL (36.4-46.3); Red Blood Count 2.95 M/uL (4.7-6.1); White Blood Count 7.41 K/uL (4.8-10.8)
[2018-12-06 06:41] LABS: RBC Morphology Unremarkable
[2018-12-06 06:46] LABS: Albumin Globulin Ratio 0.7 (0.9-2); Albumin Level 2.5 gm/dl (3.4-5.0); BUN Creatinine Ratio 13.3 (10-20); Bilirubin,Total 0.4 mg/dl (0.2-1); Creatinine Clr Calc Pharmacy 13.7 ml/min; Est GFR (African American) 11.3; Est GFR (Non-African American) 9.8; Globulin 3.7 gm/dl (2.5-4.0); Potassium 4.5 mmol/L (3.5-5.1); Total Protein 6.2 gm/dl (6.4-8.2)
--- NOTE | 2018-12-06 08:32 | Nephrology Progress Note ---
Date of Service December 06, 2018 Assessment & Plan (1) Acute kidney injury: Manuel stage III/B 3B/4 chronic kidney disease with baseline creatinine 2.5 secondary to microvascular disease. Admitted to the hospital with 3 days history of right upper quadrant abdominal pain, found to have an hepatitic mass currently, getting further evaluation with MRI, ultrasound and plan for possible biopsy. On admission his was found to have acute kidney injury, creatinine was 6 with hypercalcemia. Acute kidney injury could be hemodynamically mediated in the setting of hypercalcemia , possibly causing hypercalcemia induced diuresis. He already received a dose of calcitonin, calcium started to improve. Hypercalcemia improving, renal function better. K normal. Scheduled for IR guided biopsy of liver mass --conitnue on IV normal saline at 100 mL/hour , if pt become volume overloaded, give IV Lasix to improve volume status however continue IV fluid for now --continue to hold ACEI/ ARB, calcium, vitamin-D and avoid all calcium and vitamin-D supplement --consider Zometa if calcium does not improve as expected while waiting for PTH and PTH RP. Check vitamin-D. -- Testicular USG for further evaluation of scrotal swelling Will follow (2) Hypercalcemia: (3) Liver mass: (4) Chronic renal disease, stage IV: (5) Hypertension: (6) Anemia: Subjective Manuel was seen and examined in his room this am. Overall feelign about the same. has nausea and poor po intake and some RUQ abdominal pain. Noticed scrotal swelling for last 1 month Review of Systems Detail ROS negative. Physical Exam Vital Signs (Past 24 Hours): Last Vital Signs Temp 36.6 C 12/06/18 06:59 Pulse 78 12/06/18 06:59 Resp 18 12/06/18 06:59 BP 145/72 H 12/06/18 06:59 Pulse Ox 95 12/06/18 06:59 Constitutional: WD/WN, vitals as above + ill appearing pale Respiratory: normal respiratory effort, lungs clear to auscultation Cardiovascular: RRR, no murmur, no edema Neurologic: moves all extremities and awake Psychiatric: A+Ox3, euthymic affect Genitourinary: + scrotal swelling
[2018-12-06] MEDS: ASPIRIN 81 MG ECTAB PO SCH (08:45)
[2018-12-06] MEDS: CLOPIDOGREL BISULFATE 75 MG TAB PO SCH (08:45)
[2018-12-06] MEDS: CITALOPRAM 20 MG TAB PO SCH (08:45)
[2018-12-06] MEDS: FERROUS SULFATE 325 MG TAB PO SCH (08:45)
[2018-12-06] MEDS: FINASTERIDE 5 MG TAB PO SCH (08:45)
--- NOTE | 2018-12-06 09:50 | Ultrasound Report ---
US scrotum/testicle CLINICAL HISTORY: 73 years-old Male presenting with rt scrotal swelling, evaluate for testicular mass . TECHNIQUE: Real-time grayscale and color and spectral Doppler ultrasound imaging of the scrotum was p erformed. COMPARISON: None. FINDINGS: Right testis: Normal echogenicity and echotexture apart from ectasia of the rete testis. Testis measu res 5.4 x 2.3 x 2.5 cm. Normal color Doppler flow and arterial and venous waveforms in the testicular parenchyma. Epididymal head and compress by a complex largely anechoic collection with internal debr is measuring 9.3 x 7.1 x 4.9 cm (calculated volume 170 mL). Additional separate collection adjacent t o this measures 3.8 x 2.6 x 3.1 cm. No hydrocele. No varicocele. Left testis: Normal echogenicity and echotexture apart from a 0.9 x 0.8 x 0.6 cm complex partially cy stic partially solid lesion. The solid component measures 5 x 4 x 5 mm. No internal vascularity on co rubin Doppler is demonstrable. Testis measures 4.7 x 3.0 x 3.5 cm. Normal color Doppler flow and arteri al and venous waveforms in the testicular parenchyma. Epididymal head normal. Complex hydrocele prese nt. Varicocele present. Additionally, a 1 cm extratesticular cyst is noted posteriorly, possibly tuni ca albuginea cyst. This is avascular. Symmetric perfusion of the testes. Other: None. IMPRESSION: 1. Prominent collections in the right hemiscrotum, which are not consistent with hydroceles. Given t heir relation to the epididymal head and internal debris, these are suspected to represent spermatoce les. The larger of the two collections has a calculated volume of 170 mL. 2. Partially cystic partially solid subcentimeter lesion in the left testis. This is indeterminate. Neoplastic process is considered unlikely but difficult to exclude. Urologic consultation with follow -up ultrasound in one to 2 months recommended. 3. Left varicocele. 4. No testicular torsion. The report will be called/faxed according to standard departmental protocol. Electronically signed by: Vasiliy Perdomo M.D. 12/06/2018 9:49 AM
[2018-12-06] MEDS ORDERED: ONDANSETRON INJ 2 MG/ML 2 ML VIAL IV PRN (12:30)
[2018-12-06] MEDS ORDERED: OXYCODONE HCL IR 5 MG TAB (IMMEDIATE RELEASE) PO PRN (14:10)
[2018-12-06 14:27] LABS: Magnesium 2.3 mg/dl (1.8-2.4); Phosphorus 5.3 mg/dl (2.5-4.9)
--- NOTE | 2018-12-06 15:59 | Family Medicine Progress Note ---
Date of Service December 06, 2018 Assessment & Plan (1) Acute kidney injury: Mr. De La Cruz is a 73 year old male with a past medical history including chronic kidney disease stage IV, coronary artery disease s/p stent placement x1, hypertension, peripheral vascular disease s/p balloon angioplasty and stent placement, hypercholesterolemia, GERD, history of obstructive sleep apnea who presents to the emergency department with a 3-day history of right-sided abdominal pain. In the ED, patient found to have critical labs, including a creatinine level of 5.95 and a calcium level of 12.9. He was also found to have 12 cm and 2.2 cm hepatic masses. 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 -admit to telemetry -creatinine level was 5.95 on admission - significantly worse than baseline (2.3) and from labs drawn in October (3.) -Today 5.35, yesterday (12/05) 5.90 -Renal artery dopplers = Portions of the bilateral renal arteries obscured. Therefore, this study is technically nondiagnostic but no elevated velocities within visualized portions of the renal arteries; Moderate bilateral renal atrophy and increased echogenicity -Nephrology consulted, and no indication for dialysis at this point. Will monitor electrolyte for abnormalities. -repeat phos and mag ordered Code status: FULL DVT Prophylaxis: SCDs Disposition: admit to telemetry (2) Liver mass: -Likely hepatocellular carcinoma. MRI abdomen w/out contrast = 11 cm lobulated right hepatic lobe mass highly suggestive of malignancy; Two additional hepatic lesions which measure up to 2 cm which are suboptimally assessed on this unenh anced exam but worrisome for satellite lesions/metastases; Fatty infiltration of the liver; No abdominal lymphadenopathy. -CEA negative, AFP pending - liver biopsy will have to wait--needs to be off ASA and plavix x 5 days prior to biopsy; can be scheduled as an outpatient -heme/onc consulted -PTH normal - Pain control: oxycodone 5mg q4h prn (did not tolerate morphine) (3) Hypercalcemia: -calcium level 12.9 on admission -suspect secondary to possible underlying malignancy -Ca 12.9 on admission-->trending down. -on NS at 100 mls/hr -Calcitonin 4units/kg dose SQ x2 night of admission, and Zoledronic Acid 4mg IV x1 given last night -parathyroid hormone related peptide pending -home Vitamin D and calcium supplementation discontinued (4) Anemia: -Likely related to chronic kidney disease given slow progression (last Hgb in October was 9.4) and negative prior endoscopic workup. -Hgb baseline = 10 and 11 - 8.6 on admission-->8.7 today -continue home iron supplementation (5) Hypertension: -holding home losartan given KATHY and low diastolics (6) Coronary artery disease: -continue home aspirin and plavix (7) Peripheral vascular disease: -continue home aspirin and plavix (8) Chronic renal disease, stage IV: (9) MAEGAN (obstructive sleep apnea): -CPAP ordered, however patient does not routinely wear it (10) Hypercholesteremia: -continue home atorvastatin (11) Neuropathy: -hold home gabapentin in the setting of worsening kidney function (12) GERD (gastroesophageal reflux disease): Scheduled Protonix 40mg PO qday ordered (13) Nausea and vomiting: Zofran 4mg IV q6hr ordered No signs of acute abdomen or crepitus on exam Unsure of dark colored emesis Repeat Hgb 8.7--stable (14) Depression: -continue citalopram (15) Scrotal swelling: patient states is non-acute, maybe been present for 1 month, asymptomatic. U/S scroum this morning IMPRESSION: 1. Prominent collections in the right hemiscrotum, not consistent with hydroceles, suspected to represent spermatoceles. The larger of the two collections has a calculated volume of 170 mL. 2. Partially cystic partially solid subcentimeter lesion in the left testis. This is indeterminate. Neoplastic process is considered unlikely but difficult to exclude. Urologic consultation with follow-up ultrasound in one to 2 months recommended. 3. Left varicocele. 4. No testicular torsion. Nurse Navigator contacted for outpatient Urology follow up. Briefs for support, discuss not to wear boxers as lack of scrotal support could cause pain. Unsure of etiology Supervising Physician Co-Signing Physician Notes Patient seen and examined with Dr. Cornejo this morning. Agree with history, physical exam findings, assessment and plan of care as outlined. In brief, Mr. De La Cruz is a 73 year old male with hx of CKD, CAD and PVD, MAEGAN, admitted with KATHY on CKD and new hepatic mass. He is doing well. Did have some dark colored emesis today, but denies abdominal pain. VS reviewed. labs reviewed. Well appearing. Large abdominal mass on the right consistent with hepatic mass. Nontender. 1. KATHY on CKD. Cr slowly improving. appreciate nephrology recommendations. 2. hepatic mass, likely HCC. needs bx to confirm path, but needs to be off ASA and plavix x 5 days first. Can do this as an outpatient. Pain control with oxy 5mg. 3. hypercalcemia. IVFs s/p calcitonin and bisphos. normalized. monitor. 4. anemia. chronic and stable. 5. emesis. daily PPI. 6. protein calorie malnutrition. liberalize diet. nutrition consult. Dispo: awaiting improvement in renal function. Subjective Mr. De La Cruz had nausea and vomiting overnight. During afternoon, nursing staff reported dark colored emesis, patient states chocolate appearance. He states last BM two days ago and was normal without dark/black/bloody stool. He denies any new pain this morning. He states he is passing gas per rectum. Physical Exam Vital Signs (Past 24 Hours): Last Vital Signs Temp 37.0 C 12/06/18 15:15 Pulse 92 H 12/06/18 15:15 Resp 17 12/06/18 15:15 BP 152/71 H 12/06/18 15:15 Pulse Ox 94 12/06/18 15:15 Constitutional: WD/WN, vitals as above Eyes: + anicteric sclerae Neck: normal visual inspection and trachea midline Respiratory: normal respiratory effort, lungs clear to auscultation Cardiovascular: RRR, no murmur, no edema Gastrointestinal (Abdomen): Inspection/Auscultation: + abdomen distended Percussion/Palpation: + abdomen tender (right abdomen) and abdomen soft; no guarding and abdomen not rigid no rebound Musculoskeletal: Head/Neck/Chest: normocephalic and head atraumatic Skin: no rashes, warm and dry Neurologic: moves all extremities and awake Psychiatric: A+Ox3, euthymic affect Results & Data Laboratory Results Laboratory Results - last 24 hr 12/06/18 12/06/18 12/06/18 05:52 05:52 05:52 WBC 7.41 RBC 2.95 L Hgb 8.2 L Hct 26.5 L MCV 89.8 MCH 27.8 MCHC 30.9 L RDW Std Deviation 49.6 H RDW Coeff of [place] 15.0 H Plt Count 275 MPV 8.7 Immature Gran % (Auto) 0.3 Neut % (Auto) 82.4 Lymph % (Auto) 3.4 [place] % (Auto) 8.1 Eos % (Auto) 5.5 Baso % (Auto) 0.3 Immature Gran # (Auto) 0.02 Neut # (Auto) 6.11 Lymph # (Auto) 0.25 L [place] # (Auto) 0.60 H Eos # (Auto) 0.41 Baso # (Auto) 0.02 RBC Morphology Unremarkable Sodium 140 Potassium 4.5 Chloride 110 H Carbon Dioxide 22 Anion Gap 8.0 BUN 71 H Creatinine 5.35 H* D Est Cr Clr Drug Dosing 13.7 Est GFR ( Amer) 11.3 Est GFR (Non-Af Amer) 9.8 BUN/Creatinine Ratio 13.3 Glucose 90 Calcium 10.0 Phosphorus Magnesium Total Bilirubin 0.4 AST 40 H ALT 21 Alkaline Phosphatase 76 Total Protein 6.2 L Albumin 2.5 L Globulin 3.7 Albumin/Globulin Ratio 0.7 L 25-OH Vitamin D Total 21.2 L 12/06/18 12/06/18 13:45 13:45 WBC RBC Hgb 8.7 L Hct MCV MCH MCHC RDW Std Deviation RDW Coeff of [place] Plt Count MPV Immature Gran % (Auto) Neut % (Auto) Lymph % (Auto) [place] % (Auto) Eos % (Auto) Baso % (Auto) Immature Gran # (Auto) Neut # (Auto) Lymph # (Auto) [place] # (Auto) Eos # (Auto) Baso # (Auto) RBC Morphology Sodium Potassium Chloride Carbon Dioxide Anion Gap BUN Creatinine Est Cr Clr Drug Dosing Est GFR ( Amer) Est GFR (Non-Af Amer) BUN/Creatinine Ratio Glucose Calcium Phosphorus 5.3 H D Magnesium 2.3 Total Bilirubin AST ALT Alkaline Phosphatase Total Protein Albumin Globulin Albumin/Globulin Ratio 25-OH Vitamin D Total Medications Administered Aspirin (Ecotrin Ectab) 81 mg PO DAILY GAURI Stop: 01/04/19 08:59 Last Admin: 12/06/18 08:45 Dose: 81 mg Documented by: [id number] Admin: 12/05/18 08:10 Dose: 81 mg Documented by: [id number] Atorvastatin Calcium (Lipitor) 80 mg PO HS GAURI Stop: 01/04/19 20:59 Last Admin: 12/05/18 20:52 Dose: 80 mg Documented by: [id number] Admin: 12/05/18 01:44 Dose: 80 mg Documented by: [id number] Citalopram Hydrobromide (Celexa) 20 mg PO DAILY GAURI Stop: 01/04/19 08:59 Last Admin: 12/06/18 08:45 Dose: 20 mg Documented by: [id number] Admin: 12/05/18 08:10 Dose: 20 mg Documented by: [id number] Clopidogrel Bisulfate (Plavix) 75 mg PO DAILY GAURI Stop: 01/04/19 08:59 Last Admin: 12/06/18 08:45 Dose: 75 mg Documented by: [id number] Admin: 12/05/18 08:10 Dose: 75 mg Documented by: [id number] Ferrous Sulfate (Feosol) 325 mg PO DAILY GAURI Stop: 01/04/19 08:59 Last Admin: 12/06/18 08:45 Dose: 325 mg Documented by: [id number] Admin: 12/05/18 08:10 Dose: 325 mg Documented by: [id number] Finasteride (Proscar) 5 mg PO DAILY GAURI Stop: 01/04/19 08:59 Last Admin: 12/06/18 08:45 Dose: 5 mg Documented by: [id number] Admin: 12/05/18 08:03 Dose: Not Given Documented by: [id number] Admin: 12/05/18 01:44 Dose: 5 mg Documented by: [id number] Sodium Chloride (Nss 1000ml) 1,000 mls @ 100 mls/hr IV .Q10H GAURI Stop: 01/03/19 22:44 Last Infusion: 12/06/18 15:26 Dose: 0 mls/hr Documented by: [id number] Admin: 12/06/18 05:11 Dose: 100 mls/hr Documented by: [id number] Infusion: 12/06/18 00:23 Dose: 125 mls/hr Documented by: [id number] Admin: 12/05/18 16:23 Dose: 125 mls/hr Documented by: [id number] Infusion: 12/05/18 16:10 Dose: 125 mls/hr Documented by: [id number] Admin: 12/05/18 08:10 Dose: 125 mls/hr Documented by: [id number] Infusion: 12/05/18 06:42 Dose: 125 mls/hr Documented by: [id number] Admin: 12/04/18 22:42 Dose: 125 mls/hr Documented by: [id number] Ondansetron HCl (Zofran) 4 mg IV Q6H PRN PRN Reason: Nausea Stop: 12/11/18 12:29 Last Admin: 12/06/18 13:01 Dose: 4 mg Documented by: [id number]
[2018-12-06] MEDS: PANTOprazole 40 MG TAB PO SCH (16:07)
[2018-12-06] MEDS: ATORVASTATIN 40 MG TAB PO SCH (20:04)
[2018-12-07] MEDS: SODIUM CHLORIDE 0.9% 1000ML 1,000 ML IV SCH ×3 (02:23→21:22)
[2018-12-07 07:16] LABS: Basophils # (auto) 0.02 K/uL (0-0.2); Basophils % (auto) 0.2 %; Eosinophils % (auto) 1.1 %; Hematocrit (blood only) 25.7 % (42-52); Hemoglobin 8.2 g/dL (14.0-18.0); Immature Granulocytes # (auto) 0.02 K/uL (0.00-0.02); Immature Granulocytes % (auto) 0.2 %; Lymphocytes # (auto) 0.39 K/uL (1.2-3.4); Lymphocytes % (auto) 4.1 %; Mean Corpuscular Hgb Conc 31.9 g/dL (32-36); Mean Corpuscular Volume 89.9 fL (80-100); Mean Platelet Volume 8.7 fL (7.4-10.4); Monocytes # (auto) 0.35 K/uL (0.11-0.59); Monocytes % (auto) 3.7 %; Neutrophils # (auto) 8.53 K/uL (1.4-6.5); Neutrophils % (auto) 90.7 %; Platelet Count 250 K/uL (130-400); RDW Coefficient of Variation 15.3 % (11.5-14.5); RDW Standard Deviation 50.2 fL (36.4-46.3); Red Blood Count 2.86 M/uL (4.7-6.1); White Blood Count 9.41 K/uL (4.8-10.8)
[2018-12-07 07:40] LABS: Echinocytes 1+; Spherocytes 1+
[2018-12-07] MEDS: CLOPIDOGREL BISULFATE 75 MG TAB PO SCH (07:59)
[2018-12-07] MEDS: ASPIRIN 81 MG ECTAB PO SCH (07:59)
[2018-12-07] MEDS: PANTOprazole 40 MG TAB PO SCH (07:59)
[2018-12-07] MEDS: FERROUS SULFATE 325 MG TAB PO SCH (07:59)
[2018-12-07] MEDS: FINASTERIDE 5 MG TAB PO SCH (07:59)
[2018-12-07 08:10] LABS: Albumin Globulin Ratio 0.7 (0.9-2); Albumin Level 2.4 gm/dl (3.4-5.0); BUN Creatinine Ratio 14.1 (10-20); Bilirubin,Total 0.3 mg/dl (0.2-1); Calcium 9.6 mg/dl (8.5-10.1); Creatinine Clr Calc Pharmacy 14.8 ml/min; Est GFR (African American) 12.4; Est GFR (Non-African American) 10.7; Globulin 3.6 gm/dl (2.5-4.0); Magnesium 2.1 mg/dl (1.8-2.4); Phosphorus 4.6 mg/dl (2.5-4.9); Potassium 3.9 mmol/L (3.5-5.1)
[2018-12-07] MEDS ORDERED: POLYETHYLENE (MIRALAX) 17 GM PACK PO PRN (08:59)
--- NOTE | 2018-12-07 10:41 | Nephrology Progress Note ---
Date of Service December 07, 2018 Assessment & Plan (1) Acute kidney injury: Manuel stage III/B 3B/4 chronic kidney disease with baseline creatinine 2.5 secondary to microvascular disease. Admitted to the hospital with 3 days history of right upper quadrant abdominal pain, found to have an hepatitic mass currently, getting further evaluation with MRI, ultrasound and plan for possible biopsy. On admission his was found to have acute kidney injury, creatinine was 6 with hypercalcemia. Acute kidney injury could be hemodynamically mediated in the setting of hypercalcemia , possibly causing hypercalcemia induced diuresis. He already received a dose of calcitonin, calcium started to improve. Hypercalcemia resolved, renal function improving from recent AK I but very slowly. K normal. --conitnue on IV normal saline at 100 mL/hour , encourage p.o. intake, if p.o. intake improved, IV fluids can be discontinued --continue to hold ACEI/ ARB, calcium, vitamin-D and avoid all calcium and vitamin-D supplement --patient will be evaluated by Urology as an outpatient for scrotal swelling. --suggest holding aspirin for now as patient still seemed to be very weak and renal function improving very slowly. In case patient stays here for next few days, biopsy of the liver mass can be done inpatient in that case Will follow (2) Hypercalcemia: (3) Liver mass: (4) Chronic renal disease, stage IV: (5) Hypertension: (6) Anemia: Subjective Manuel was seen and examined in his room this am. Overall feeling about the same, feels tired and low energy. Continues to have occasional nausea and poor po intake and some RUQ abdominal pain. Denies shortness of breath. Blood pressure stable. No sign of volume overload. Physical Exam Vital Signs (Past 24 Hours): Last Vital Signs Temp 37.2 C 12/07/18 07:08 Pulse 91 H 12/07/18 07:08 Resp 16 12/07/18 07:08 BP 149/73 H 12/07/18 07:08 Pulse Ox 92 12/07/18 07:08 Constitutional: WD/WN, vitals as above + ill appearing Respiratory: normal respiratory effort, lungs clear to auscultation Cardiovascular: RRR, no murmur, no edema Neurologic: moves all extremities and awake Psychiatric: A+Ox3, euthymic affect Genitourinary: + scrotal swelling
[2018-12-07] MEDS: CITALOPRAM 20 MG TAB PO SCH (10:52)
[2018-12-07] MEDS ORDERED: EPOETIN ALFA 40,000 UNITS/ML VIAL IV SCH (11:00)
--- NOTE | 2018-12-07 15:22 | Family Medicine Progress Note ---
Date of Service December 07, 2018 Assessment & Plan (1) Acute kidney injury: Mr. De La Cruz is a 73 year old male with a past medical history including chronic kidney disease stage IV, coronary artery disease s/p stent placement x1, hypertension, peripheral vascular disease s/p balloon angioplasty and stent placement, hypercholesterolemia, GERD, history of obstructive sleep apnea who presents to the emergency department with a 3-day history of right-sided abdominal pain. In the ED, patient found to have critical labs, including a creatinine level of 5.95 and a calcium level of 12.9. He was also found to have 12 cm and 2.2 cm hepatic masses. 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 Therefore, this study is technically nondiagnostic but no elevated velocities within visualized portions of the renal arteries; Moderate bilateral renal atrophy and increased echogenicity -Nephrology consulted, and no indication for dialysis at this point. Monitor electrolytes--daily BMP, Mg, Phos --continue IV normal saline at 100 mL/hour , encourage p.o. intake, if p.o. intake improved, IV fluids can be discontinued --continue to hold ACEI/ ARB, calcium, vitamin-D and avoid all calcium and vitamin-D supplement Code status: FULL DVT Prophylaxis: SCDs Disposition: admit to telemetry (2) Liver mass: -Dc'd asprin/plavix day 10/12 -suspicion is for hepatocellular carcinoma -MRI abdomen w/out contrast = 11 cm lobulated right hepatic lobe mass highly suggestive of malignancy; Two additional hepatic lesions which measure up to 2 cm which are suboptimally assessed on this unenhanced exam but worrisome for satellite lesions/metastases; Fatty infiltration of the liver; No abdominal lymphadenopathy. -CEA negative, AFP pending -heme/onc consulted -PTH ordered and was normal -Pain control with oxy 5mg q4h PRN (3) Hypercalcemia: -calcium level 12.9 on admission-->9.6 today -suspect secondary to possible underlying malignancy -on NS at 100 mls/hr -Calcitonin 4units/kg dose SQ x2 night of admission, and Zoledronic Acid 4mg IV x1 given last night -parathyroid hormone related peptide pending (4) Anemia: -Hgb baseline: 10 and 11, - 8.6 on admission-->stable 8.2 today - monitor -Likely related to chronic kidney disease given slow progression (last Hgb in October was 9.4) and negative prior endoscopic workup. -continue home iron supplementation (5) Hypertension: -holding because of some low diastolic values -hold home losartan given KATHY (6) Coronary artery disease: -dc'd asprin and plavix for upcoming bx (7) Peripheral vascular disease: -dc'd asprin plavix for upcoming bx (8) Chronic renal disease, stage IV: (9) MAEGAN (obstructive sleep apnea): -CPAP ordered, however patient does not routinely wear it (10) Hypercholesteremia: -continue home atorvastatin (11) Neuropathy: -hold home gabapentin in the setting of worsening kidney function (12) GERD (gastroesophageal reflux disease): Scheduled Protonix 40mg PO qday ordered (13) Nausea and vomiting: Zofran 4mg IV q6hr ordered (14) Depression: -continue citalopram (15) Scrotal swelling: patient states is non-acute, maybe been present for 1 month, asymptomatic. U/S scroum this morning IMPRESSION: 1. Prominent collections in the right hemiscrotum, not consistent with hydroceles, suspected to represent spermatoceles. The larger of the two collections has a calculated volume of 170 mL. 2. Partially cystic partially solid subcentimeter lesion in the left testis. This is indeterminate. Neoplastic process is considered unlikely but difficult to exclude. Urologic consultation with follow-up ultrasound in one to 2 months recommended. 3. Left varicocele. 4. No testicular torsion. Nurse Navigator contacted for outpatient Urology follow up. Briefs for support, discuss not to wear boxers as lack of scrotal support could cause pain. Unsure of etiology Supervising Physician Co-Signing Physician Notes Patient seen and examined with Dr. Cornejo this morning. Agree with history, physical exam findings, assessment and plan of care as outlined. In brief, Mr. De La Cruz is a 73 year old male with hx of CKD, CAD and PVD, MAEGAN, admitted with KATHY on CKD and new hepatic mass. He is doing well. Did have some dark colored emesis today, but denies abdominal pain. VS reviewed. labs reviewed. Well appearing. Large abdominal mass on the right consistent with hepatic mass. Nontender. 1. KATHY on CKD. Cr slowly improving. appreciate nephrology recommendations. monitoring lytes. daily BMP, Mg, Phos. 2. hepatic mass, likely HCC. needs bx to confirm path, holding ASA and plavix x 5 days--if he is still in house at that time, can schedule IR to do needle bx. 3. hypercalcemia. IVFs s/p calcitonin and bisphos. normalized. monitor. 4. anemia. chronic and stable. 5. nausea/vomiting--improved. daily PPI. 6. protein calorie malnutrition. liberalize diet. nutrition consult. Dispo: awaiting improvement in renal function. Subjective Pt sleeping in bed this morning in no acute distress. He did well overnight, had episodes of asyx sinus tach, EKG demonstrated Qtc of 542, held zofran and celexa. AM ekg Yad=814 resumed meds. Pt reports voiding, and tolerating diet. Pt is concerned about his hepatic mass and inquired about it. Unfortunately we really need results of a bx for diagnosis and prognosis. Constitutional: + chills, + fatigue, + anorexia and + weight loss; no fever Gastrointestinal: + abdominal pain and + bloating; no nausea, no vomiting, no change in bowel habits, no constipation and no blood in stools Physical Exam Vital Signs (Past 24 Hours): Last Vital Signs Temp 36.9 C 12/07/18 11:59 Pulse 88 12/07/18 11:59 Resp 16 12/07/18 11:59 BP 162/69 H 12/07/18 11:59 Pulse Ox 97 12/07/18 11:59 Constitutional: WD/WN, vitals as above well developed, well nourished, + we ll hydrated, + obese, cooperative and comfortable Eyes: PERRL, conjunctivae normal, anicteric sclerae sclerae not anicteric Neck: normal visual inspection and trachea midline Respiratory: normal respiratory effort, lungs clear to auscultation Cardiovascular: RRR, no murmur, no edema Vessels: radial pulses present Extremities: normal capillary refill; no calf tenderness and no pedal edema Gastrointestinal (Abdomen): Inspection/Auscultation: + abdomen distended Percussion/Palpation: + abdomen tender (right abdomen) and abdomen soft; no guarding and abdomen not rigid Musculoskeletal: Head/Neck/Chest: normocephalic and head atraumatic Skin: no rashes, warm and dry Neurologic: moves all extremities and awake Psychiatric: A+Ox3, euthymic affect Results & Data Laboratory Results 12/07/18 12/07/18 Range/Units 06:51 06:51 WBC 9.41 (4.8-10.8) K/uL RBC 2.86 L (4.7-6.1) M/uL Hgb 8.2 L (14.0-18.0) g/dL Hct 25.7 L (42-52) % MCV 89.9 (80-100) fL MCH 28.7 (25-34) pg MCHC 31.9 L (32-36) g/dL RDW Std Deviation 50.2 H (36.4-46.3) fL RDW Coeff of Xiomara 15.3 H (11.5-14.5) % Plt Count 250 (130-400) K/uL MPV 8.7 (7.4-10.4) fL Immature Gran % (Auto) 0.2 % Neut % (Auto) 90.7 % Lymph % (Auto) 4.1 % [place] % (Auto) 3.7 % Eos % (Auto) 1.1 % Baso % (Auto) 0.2 % Immature Gran # (Auto) 0.02 (0.00-0.02) K/uL Neut # (Auto) 8.53 H (1.4-6.5) K/uL Lymph # (Auto) 0.39 L (1.2-3.4) K/uL [place] # (Auto) 0.35 (0.11-0.59) K/uL Eos # (Auto) 0.10 (0-0.5) K/uL Baso # (Auto) 0.02 (0-0.2) K/uL Spherocytes 1+ Echinocytes 1+ Sodium 141 (136-145) mmol/L Potassium 3.9 (3.5-5.1) mmol/L Chloride 113 H (98-107) mmol/L Carbon Dioxide 20 L (21-32) mmol/L Anion Gap 8.0 (3-11) BUN 70 H (7-18) mg/dl Creatinine 4.96 H* D (0.6-1.4) mg/dl Est Cr Clr Drug Dosing 14.8 ml/min Est GFR ( Amer) 12.4 Est GFR (Non-Af Amer) 10.7 BUN/Creatinine Ratio 14.1 (10-20) Glucose 99 (70-99) mg/dl Calcium 9.6 (8.5-10.1) mg/dl Phosphorus 4.6 (2.5-4.9) mg/dl Magnesium 2.1 (1.8-2.4) mg/dl Total Bilirubin 0.3 (0.2-1) mg/dl AST 37 (15-37) U/L ALT 18 (12-78) U/L Alkaline Phosphatase 74 (45-117) U/L Total Protein 6.0 L (6.4-8.2) gm/dl Albumin 2.4 L (3.4-5.0) gm/dl Globulin 3.6 (2.5-4.0) gm/dl Albumin/Globulin Ratio 0.7 L (0.9-2) Medications Administered Current Inpatient Medications Atorvastatin Calcium (Lipitor) 80 mg PO HS GAURI Stop: 01/04/19 20:59 Last Admin: 12/06/18 20:04 Dose: 80 mg Documented by: Citalopram Hydrobromide (Celexa) 20 mg PO DAILY GAURI Stop: 01/04/19 08:59 Last Admin: 12/07/18 10:52 Dose: 20 mg Documented by: Epoetin Prakash (Procrit) 40,000 units IV 1100 GAURI Stop: 12/07/18 16:00 Last Admin: 12/07/18 13:19 Dose: 40,000 units Documented by: Ferrous Sulfate (Feosol) 325 mg PO DAILY GAURI Stop: 01/04/19 08:59 Last Admin: 12/07/18 07:59 Dose: 325 mg Documented by: Finasteride (Proscar) 5 mg PO DAILY GAURI Stop: 01/04/19 08:59 Last Admin: 12/07/18 07:59 Dose: 5 mg Documented by: Sodium Chloride (Nss 1000ml) 1,000 mls @ 100 mls/hr IV .Q10H GAURI Stop: 01/03/19 22:44 Last Admin: 12/07/18 12:56 Dose: 100 mls/hr Documented by: Ondansetron HCl (Zofran) 4 mg IV Q6H PRN PRN Reason: Nausea Stop: 12/11/18 12:29 Last Admin: 12/06/18 13:01 Dose: 4 mg Documented by: Oxycodone HCl (Roxicodone Immediate Rel) 5 mg PO Q4H PRN PRN Reason: Pain Stop: 12/20/18 14:09 Last Admin: 12/06/18 19:59 Dose: 5 mg Documented by: Pantoprazole Sodium (Protonix) 40 mg PO DAILY PRN PRN Reason: Acid Reflux Stop: 01/04/19 01:12 Pantoprazole Sodium (Protonix) 40 mg PO QAM GAURI Stop: 01/05/19 13:29 Last Admin: 12/07/18 07:59 Dose: 40 mg Documented by: Polyethylene Glycol (Miralax Powder Packet) 17 gm PO BID PRN PRN Reason: Constipation Stop: 01/06/19 08:58 Resident Activity Tracking Resident Involvement: Resident Care Provided Care Provided: Adult Hospital Medicine
[2018-12-07] MEDS: ATORVASTATIN 40 MG TAB PO SCH (21:22)
[2018-12-08 07:08] LABS: Basophils # (auto) 0.02 K/uL (0-0.2); Basophils % (auto) 0.3 %; Eosinophils # (auto) 0.37 K/uL (0-0.5); Eosinophils % (auto) 5.6 %; Hematocrit (blood only) 25.3 % (42-52); Hemoglobin 7.9 g/dL (14.0-18.0); Immature Granulocytes # (auto) 0.02 K/uL (0.00-0.02); Immature Granulocytes % (auto) 0.3 %; Lymphocytes # (auto) 0.31 K/uL (1.2-3.4); Lymphocytes % (auto) 4.7 %; Mean Corpuscular Hgb Conc 31.2 g/dL (32-36); Mean Corpuscular Volume 89.7 fL (80-100); Mean Platelet Volume 8.6 fL (7.4-10.4); Monocytes # (auto) 0.25 K/uL (0.11-0.59); Monocytes % (auto) 3.8 %; Neutrophils # (auto) 5.59 K/uL (1.4-6.5); Neutrophils % (auto) 85.3 %; Platelet Count 227 K/uL (130-400); RDW Coefficient of Variation 15.5 % (11.5-14.5); RDW Standard Deviation 50.9 fL (36.4-46.3); Red Blood Count 2.82 M/uL (4.7-6.1); White Blood Count 6.56 K/uL (4.8-10.8)
--- NOTE | 2018-12-08 07:38 | Family Medicine Progress Note ---
Date of Service December 08, 2018 Assessment & Plan (1) Acute kidney injury: Mr. De La Cruz is a 73 year old male with a past medical history including chronic kidney disease stage IV, coronary artery disease s/p stent placement x1, hypertension, peripheral vascular disease s/p balloon angioplasty and stent placement, hypercholesterolemia, GERD, history of obstructive sleep apnea who presents to the emergency department with a 3-day history of right-sided abdominal pain. In the ED, patient found to have critical labs, including a creatinine level of 5.95 and a calcium level of 12.9. He was also found to have 12 cm and 2.2 cm hepatic masses. -on telemetry -creatinine level was 5.95 on admission - significantly worse than baseline (2.3) and from labs drawn in October (3.28) -5.95->5.90->5.35->4.96->4.64 today -Patient was presumed to have chronic kidney disease related to microvascular disease -Renal artery dopplers = Portions of the bilateral renal arteries obscured. Therefore, this study is technically nondiagnostic but no elevated velocities within visualized portions of the renal arteries; Moderate bilateral renal atrophy and increased echogenicity -Nephrology consulted, and no indication for dialysis at this point. Will monitor electrolyte for abnormalities. --conitnue on IV normal saline at 100 mL/hour , encourage p.o. intake, if p.o. intake improved, IV fluids can be discontinued --continue to hold ACEI/ ARB, calcium, vitamin-D and avoid all calcium and vitamin-D supplement -repeat phos and mag ordered Code status: FULL DVT Prophylaxis: SCDs Disposition: admit to telemetry (2) Liver mass: -Dc'd asprin/plavix day 2/5 -suspicion is for hepatocellular carcinoma -MRI abdomen w/out contrast = 11 cm lobulated right hepatic lobe mass highly suggestive of malignancy; Two additional hepatic lesions which measure up to 2 cm which are suboptimally assessed on this unenhanced exam but worrisome for satellite lesions/metastases; Fatty infiltration of the liver; No abdominal lymphadenopathy. -CEA negative, AFP pending -heme/onc consulted -PTH ordered and was normal -Did not tolerate Morphine, discontinued Morphine and ordered Oxycodone 5mg q4h PRN. (3) Hypercalcemia: -calcium level 12.9 on admission -suspect secondary to possible underlying malignancy -on NS at 100 mls/hr -Calcitonin 4units/kg dose SQ x2 night of admission, and Zoledronic Acid 4mg IV x1 given last night -parathyroid hormone related peptide pending -this morning calcium 9.6 corrected 11.0 (4) Anemia: -Hgb generally between 10 and 11, 8.6 on admission;7.9 today continue to trend -Likely related to chronic kidney disease given slow progression (last Hgb in October was 9.4) and negative prior endoscopic workup. -continue home iron supplementation (5) Hypertension: -holding because of some low diastolic values -hold home losartan given KATYH (6) Coronary artery disease: -dc'd asprin plavix for upcoming bx (7) Peripheral vascular disease: -dc'd asprin plavix for upcoming bx (8) Chronic renal disease, stage IV: (9) MAEGAN (obstructive sleep apnea): -CPAP ordered, however patient does not routinely wear it (10) Hypercholesteremia: -continue home atorvastatin (11) Neuropathy: -hold home gabapentin in the setting of worsening kidney function (12) GERD (gastroesophageal reflux disease): Scheduled Protonix 40mg PO qday ordered (13) Nausea and vomiting: Zofran 4mg IV q6hr ordered (14) Depression: -continue citalopram (15) Scrotal swelling: patient states is non-acute, maybe been present for 1 month, asymptomatic. U/S scroum this morning IMPRESSION: 1. Prominent collections in the right hemiscrotum, not consistent with hydroceles, suspected to represent spermatoceles. The larger of the two collections has a calculated volume of 170 mL. 2. Partially cystic partially solid subcentimeter lesion in the left testis. This is indeterminate. Neoplastic process is considered unlikely but difficult to exclude. Urologic consultation with follow-up ultrasound in one to 2 months recommended. 3. Left varicocele. 4. No testicular torsion. Nurse Navigator contacted for outpatient Urology follow up. Briefs for support, discuss not to wear boxers as lack of scrotal support could cause pain. Unsure of etiology Supervising Physician Co-Signing Physician Notes Patient seen and examined with Dr. Coon this morning. Agree with history, physical exam findings, assessment and plan of care as outlined. In brief, Mr. De La Cruz is a 73 year old male with hx of CKD, CAD and PVD, MAEGAN, admitted with KATHY on CKD and new hepatic mass. He is doing well. Yesterday had hard stool with lots of straining on the toilet. VS reviewed. labs reviewed. Well appearing. Large abdominal mass on the right consistent with hepatic mass. Nontender. 1. KATHY on CKD. Cr slowly improving. Encouraging PO intake. Stop IVFs now that PO intake is improving. appreciate nephrology recommendations. monitoring lytes. daily BMP, Mg, Phos. start bicarb. 2. hepatic mass, likely HCC. needs bx to confirm path, holding ASA and plavix x 5 days--if he is still in house at that time, can schedule IR to do needle bx. oxycodone for pain. 3. hypercalcemia. IVFs s/p calcitonin and bisphos. normalized. monitor. 4. anemia. chronic and stable. received epo yesterday. Starting venofer as well. 5. nausea/vomiting--improved. daily PPI. 6. protein calorie malnutrition. liberalize diet. nutrition consult. 7. constipation, secondary to opioid use. Start bowel regimen. Dispo: awaiting improvement in renal function. Subjective Pt sleeping in bed this morning in no acute distress. He did well overnight, still having episode of asyx sinus tach with pvc. Likely 2/2 to not using cpap plan to reorder for this evening. Pt reports voiding, stooling and tolerating diet. Has been off ASA/plavix in prep for upcoming BX. Physical Exam Vital Signs (Past 24 Hours): Last Vital Signs Temp 37 C 12/08/18 04:55 Pulse 84 12/08/18 04:55 Resp 20 12/08/18 04:55 BP 132/67 12/08/18 04:55 Pulse Ox 92 12/08/18 04:55 Constitutional: WD/WN, vitals as above well developed, well nourished, + well hydrated, + obese, cooperative and comfortable Eyes: PERRL, conjunctivae normal, anicteric sclerae sclerae not anicteric Neck: normal visual inspection and trachea midline Respiratory: normal respiratory effort, lungs clear to auscultation Cardiovascular: RRR, no murmur, no edema Vessels: radial pulses present Extremities: normal capillary refill; no calf tenderness and no pedal edema Gastrointestinal (Abdomen): Inspection/Auscultation: + abdomen distended Percussion/Palpation: + abdomen tender (right abdomen) and abdomen soft; no guarding and abdomen not rigid Musculoskeletal: Head/Neck/Chest: normocephalic and head atraumatic Skin: no rashes, warm and dry Neurologic: moves all extremities and awake Psychiatric: A+Ox3, euthymic affect Results & Data Laboratory Results 12/08/18 12/08/18 Range/Units 06:57 06:57 WBC 6.56 (4.8-10.8) K/uL RBC 2.82 L (4.7-6.1) M/uL Hgb 7.9 L (14.0-18.0) g/dL Hct 25.3 L (42-52) % MCV 89.7 (80-100) fL MCH 28.0 (25-34) pg MCHC 31.2 L (32-36) g/dL RDW Std Deviation 50.9 H (36.4-46.3) fL RDW Coeff of [place]om[place] 15.5 H (11.5-14.5) % Plt Count 227 (130-400) K/uL MPV 8.6 (7.4-10.4) fL Immature Gran % (Auto) 0.3 % Neut % (Auto) 85.3 % Lymph % (Auto) 4.7 % [place] % (Auto) 3.8 % Eos % (Auto) 5.6 % Baso % (Auto) 0.3 % Immature Gran # (Auto) 0.02 (0.00-0.02) K/uL Neut # (Auto) 5.59 (1.4-6.5) K/uL Lymph # (Auto) 0.31 L (1.2-3.4) K/uL [place] # (Auto) 0.25 (0.11-0.59) K/uL Eos # (Auto) 0.37 (0-0.5) K/uL Baso # (Auto) 0.02 (0-0.2) K/uL Echinocytes 1+ Sodium 140 (136-145) mmol/L Potassium 4.0 (3.5-5.1) mmol/L Chloride 112 H (98-107) mmol/L Carbon Dioxide 18 L (21-32) mmol/L Anion Gap 9.0 (3-11) BUN 64 H (7-18) mg/dl Creatinine 4.69 H* (0.6-1.4) mg/dl Est Cr Clr Drug Dosing 15.7 ml/min Est GFR ( Amer) 13.3 Est GFR (Non-Af Amer) 11.5 BUN/Creatinine Ratio 13.7 (10-20) Glucose 91 (70-99) mg/dl Calcium 9.6 (8.5-10.1) mg/dl Phosphorus 4.2 (2.5-4.9) mg/dl Magnesium 2.0 (1.8-2.4) mg/dl Total Bilirubin 0.3 (0.2-1) mg/dl AST 34 (15-37) U/L ALT 20 (12-78) U/L Alkaline Phosphatase 72 (45-117) U/L Total Protein 6.0 L (6.4-8.2) gm/dl Albumin 2.3 L (3.4-5.0) gm/dl Globulin 3.7 (2.5-4.0) gm/dl Albumin/Globulin Ratio 0.6 L (0.9-2) Medications Administered Current Inpatient Medications Atorvastatin Calcium (Lipitor) 80 mg PO HS GAURI Stop: 01/04/19 20:59 Last Admin: 12/07/18 21:22 Dose: 80 mg Documented by: Citalopram Hydrobromide (Celexa) 20 mg PO DAILY GAURI Stop: 01/04/19 08:59 Last Admin: 12/08/18 09:12 Dose: 20 mg Documented by: Ferrous Sulfate (Feosol) 325 mg PO DAILY GAURI Stop: 01/04/19 08:59 Last Admin: 12/08/18 09:12 Dose: 325 mg Documented by: Finasteride (Proscar) 5 mg PO DAILY GAURI Stop: 01/04/19 08:59 Last Admin: 12/08/18 09:12 Dose: 5 mg Documented by: Sodium Chloride (Nss 1000ml) 1,000 mls @ 100 mls/hr IV .Q10H GAURI Stop: 01/03/19 22:44 Last Admin: 12/08/18 09:11 Dose: 100 mls/hr Documented by: Iron Sucrose 200 mg/ Sodium (Chloride) 110 mls @ 220 mls/hr IV Q2D@1100 GAURI Stop: 12/16/18 11:29 Last Infusion: 12/08/18 11:53 Dose: Infused Documented by: Ondansetron HCl (Zofran) 4 mg IV Q6H PRN PRN Reason: Nausea Stop: 12/11/18 12:29 Last Admin: 12/06/18 13:01 Dose: 4 mg Documented by: Oxycodone HCl (Roxicodone Immediate Rel) 5 mg PO Q4H PRN PRN Reason: Pain Stop: 12/20/18 14:09 Last Admin: 12/06/18 19:59 Dose: 5 mg Documented by: Pantoprazole Sodium (Protonix) 40 mg PO DAILY PRN PRN Reason: Acid Reflux Stop: 01/04/19 01:12 Pantoprazole Sodium (Protonix) 40 mg PO QAM GAURI Stop: 01/05/19 13:29 Last Admin: 12/08/18 09:13 Dose: 40 mg Documented by: Polyethylene Glycol (Miralax Powder Packet) 17 gm PO BID PRN PRN Reason: Constipation Stop: 01/06/19 08:58 Sodium Bicarbonate (Sodium Bicarbonate) 650 mg PO BID GAURI Stop: 01/07/19 09:14 Last Admin: 12/08/18 11:53 Dose: 650 mg Documented by: Resident Activity Tracking Resident Involvement: Resident Care Provided Care Provided: Adult Hospital Medicine
[2018-12-08 07:40] LABS: Echinocytes 1+
[2018-12-08 07:48] LABS: Albumin Globulin Ratio 0.6 (0.9-2); Albumin Level 2.3 gm/dl (3.4-5.0); BUN Creatinine Ratio 13.7 (10-20); Bilirubin,Total 0.3 mg/dl (0.2-1); Calcium 9.6 mg/dl (8.5-10.1); Creatinine Clr Calc Pharmacy 15.7 ml/min; Est GFR (African American) 13.3; Est GFR (Non-African American) 11.5; Globulin 3.7 gm/dl (2.5-4.0); Phosphorus 4.2 mg/dl (2.5-4.9)
[2018-12-08] MEDS: SODIUM CHLORIDE 0.9% 1000ML 1,000 ML IV SCH (09:11)
[2018-12-08] MEDS: CITALOPRAM 20 MG TAB PO SCH (09:12)
[2018-12-08] MEDS: FERROUS SULFATE 325 MG TAB PO SCH (09:12)
[2018-12-08] MEDS: FINASTERIDE 5 MG TAB PO SCH (09:12)
[2018-12-08] MEDS: PANTOprazole 40 MG TAB PO SCH (09:13)
[2018-12-08] MEDS ORDERED: IRON SUCROSE (VENOFER) 100 MG/5 ML VIAL IV SCH (09:15)
--- NOTE | 2018-12-08 09:31 | Nephrology Progress Note ---
Date of Service December 08, 2018 Assessment & Plan (1) Acute kidney injury: Manuel stage III/B 3B/4 chronic kidney disease with baseline creatinine 2.5 secondary to microvascular disease. Admitted to the hospital with 3 days history of right upper quadrant abdominal pain, found to have an hepatitic mass, MRI is concerning for possible cholangiocarcinoma. Initially planned for biopsy however patient was on aspirin. Aspirin has been on hold for last 2 days then biopsy in near future as an inpatient or outpatient if renal function improve significantly for patient to be discharged in next few days.. On admission his was found to have acute kidney injury, creatinine was 6 with hypercalcemia. Acute kidney injury could be hemodynamically mediated in the setting of hypercalcemia and poor p.o. intake. Calcium improved with IV fluid and Calcitonin. PTH, PTH RP normal. Carcinoembryonic antigen was negative, alpha fetoprotein is currently pending. Has history iron deficiency anemia, previous GI workup including capsule endoscopy was negative. He also has scrotal swelling for last 1 month, ultrasound showed spina to say and recommended outpatient Urology follow-up in a month. Hypercalcemia resolved, renal function improving from recent AK I but very slowly. K normal. Hemoglobin the remained low but stable. Received Epogen 66714 units on 12/07/2018. --discontinue IV fluid as p.o. intake improved --continue to hold ACEI/ ARB, calcium, vitamin-D and avoid all calcium and v itamin-D supplement --start on Venofer --start NaBicarb at 650 BID --patient will be evaluated by Urology as an outpatient for scrotal swelling. -- In case patient stays here for next few days, biopsy of the liver mass can be done before DC Will follow (2) Hypercalcemia: (3) Liver mass: (4) Chronic renal disease, stage IV: (5) Hypertension: (6) Anemia: Subjective aMnuel was seen and examined in his room this am. Overall feeling about the same, feels tired and low energy. Continues to have occasional nausea, but no abdominal pain and po intake seems oK. Denies shortness of breath. Blood pressure stable. No sign of volume overload. Renal function improving very slowly. Has decent urine output Physical Exam Vital Signs (Past 24 Hours): Last Vital Signs Temp 36.8 C 12/08/18 08:34 Pulse 58 L 03/03/19 08:34 Resp 16 12/08/18 08:34 BP 126/71 12/08/18 08:34 Pulse Ox 95 12/08/18 08:34 Constitutional: WD/WN, vitals as above + ill appearing Respiratory: normal respiratory effort, lungs clear to auscultation Cardiovascular: RRR, no murmur, no edema Neurologic: moves all extremities and awake Psychiatric: A+Ox3, euthymic affect Genitourinary: + scrotal swelling
[2018-12-08] MEDS: IRON SUCROSE 200 MG in 0.9 % SODIUM CHLORIDE 100 ML IV SCH (11:12)
[2018-12-08] MEDS: SODIUM BICARBONATE 650 MG TAB PO SCH ×2 (11:53→21:23)
[2018-12-08] MEDS: DOCUSATE SODIUM/SENNA 50/8.6MG TAB PO SCH (17:18)
[2018-12-08] MEDS: ATORVASTATIN 40 MG TAB PO SCH (21:23)
[2018-12-09 05:45] LABS: Basophils # (auto) 0.01 K/uL (0-0.2); Basophils % (auto) 0.2 %; Eosinophils # (auto) 0.53 K/uL (0-0.5); Hematocrit (blood only) 25.2 % (42-52); Hemoglobin 7.9 g/dL (14.0-18.0); Immature Granulocytes # (auto) 0.03 K/uL (0.00-0.02); Immature Granulocytes % (auto) 0.5 %; Lymphocytes % (auto) 7.6 %; Mean Corpuscular Hgb Conc 31.3 g/dL (32-36); Mean Corpuscular Volume 88.1 fL (80-100); Mean Platelet Volume 9.1 fL (7.4-10.4); Monocytes # (auto) 0.42 K/uL (0.11-0.59); Monocytes % (auto) 6.4 %; Neutrophils # (auto) 5.11 K/uL (1.4-6.5); Neutrophils % (auto) 77.3 %; Platelet Count 234 K/uL (130-400); RDW Coefficient of Variation 15.5 % (11.5-14.5); RDW Standard Deviation 49.6 fL (36.4-46.3); Red Blood Count 2.86 M/uL (4.7-6.1)
[2018-12-09 06:14] LABS: Echinocytes 1+; Ovalocytes 1+
[2018-12-09 06:29] LABS: Albumin Globulin Ratio 0.6 (0.9-2); Albumin Level 2.3 gm/dl (3.4-5.0); BUN Creatinine Ratio 13.3 (10-20); Bilirubin,Total 0.4 mg/dl (0.2-1); Calcium 9.6 mg/dl (8.5-10.1); Creatinine Clr Calc Pharmacy 15.2 ml/min; Est GFR (Non-African American) 11.2; Globulin 3.6 gm/dl (2.5-4.0); Magnesium 1.9 mg/dl (1.8-2.4); Phosphorus 3.8 mg/dl (2.5-4.9); Potassium 4.1 mmol/L (3.5-5.1); Total Protein 5.9 gm/dl (6.4-8.2)
[2018-12-09] MEDS: FINASTERIDE 5 MG TAB PO SCH (08:45)
[2018-12-09] MEDS: CITALOPRAM 20 MG TAB PO SCH (08:45)
[2018-12-09] MEDS: SODIUM BICARBONATE 650 MG TAB PO SCH ×2 (08:45→20:25)
[2018-12-09] MEDS: DOCUSATE SODIUM/SENNA 50/8.6MG TAB PO SCH (08:45)
[2018-12-09] MEDS: PANTOprazole 40 MG TAB PO SCH (08:45)
[2018-12-09] MEDS: FERROUS SULFATE 325 MG TAB PO SCH (08:45)
[2018-12-09] MEDS ORDERED: TRAMADOL HCL 50 MG TABLET PO PRN ×2 (09:20→10:39)
--- NOTE | 2018-12-09 09:50 | Nephrology Progress Note ---
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 Admitted with 3 days history of right upper quadrant abdominal pain. Evaluation revealed a hepatic mass. MRI is concerning for possible cholangiocarcinoma. On admission, creatinine was 6 with hypercalcemia. KATHY hemodynamically mediated in the setting of hypercalcemia and poor p.o. intake. Calcium improved with IV fluid and Calcitonin. PTH, PTH RP normal. Carcinoembryonic antigen was negative, alpha fetoprotein is currently pending. Medical history includes iron deficiency anemia. Previous GI workup including capsule endoscopy was negative. Received Epogen 06542 units on 12/07/2018. Is currently receiving treatment with venofer. He also has scrotal swelling for last 1 month, ultrasound showed hydroceles as well as cystic lesion in testicle. Outpatient Urology follow-up in a month is suggested. Hypercalcemia resolved. KATHY improving. Creatinine plateaued. Suggest that we continue to hold IVF. Continue to hold ACEI/ ARB, calcium, vitamin-D and avoid all calcium and vitamin-D supplement Continue venofer as Rx. Increase NaHCO3 to 1300 mg BID. Suggest repeat metabolic profile tomorrow AM as inpatient. (2) Hypercalcemia: (3) Liver mass: (4) Chronic renal disease, stage IV: (5) Hypertension: (6) Anemia: Subjective No acute events overnight. Manuel was seen and examined in his room this AM with his son-in-law present. Manuel continues to experience intermittent right upper quadrant abdominal pain. Appetite is fair. He denies fevers or chills. He does not have any urinary symptoms. Denies shortness of breath. Blood pressure stable. No sign of volume overload. Review of Systems All systems reviewed & are unremarkable except as noted in HPI & below Physical Exam Vital Signs (Past 24 Hours): Last Vital Signs Temp 36.9 C 12/09/18 08:03 Pulse 81 12/09/18 08:03 Resp 18 12/09/18 08:03 BP 178/61 H 12/09/18 08:03 Pulse Ox 98 12/09/18 08:03 Constitutional: well developed; no acute distress and not edematous Eyes: no conjunctival abnormality and no scleral abnormality ENMT: Mouth: no oral mucosal abnormality and oral mucous membranes not dry Neck: normal visual inspection Thyroid: normal thyroid Respiratory: normal respiratory effort; no respiratory distress and no labored breathing Auscultation: lungs clear to auscultation bilaterally Cardiovascular: Rate/Rhythm: regular rate and regular rhythm Gastrointestinal (Abdomen): Inspection/Auscultation: + abdomen distended; no abdominal edema Percussion/Palpation: abdomen soft; abdomen nontender Musculoskeletal: Extremities: no cyanosis and no clubbing Skin: no rashes, warm and dry Neurologic: Motor/Sensory: no tremor and no asterixis Psychiatric: Orientation: alert Eye Contact: good eye contact Mood: no depressed mood Results & Data Laboratory Results Laboratory Results - last 24 hr 12/09/18 12/09/18 05:20 05:20 WBC 6.60 RBC 2.86 L Hgb 7.9 L Hct 25.2 L MCV 88.1 MCH 27.6 MCHC 31.3 L RDW Std Deviation 49.6 H RDW Coeff of Xiomara 15.5 H Plt Count 234 MPV 9.1 Immature Gran % (Auto) 0.5 Neut % (Auto) 77.3 Lymph % (Auto) 7.6 [place] % (Auto) 6.4 Eos % (Auto) 8.0 Baso % (Auto) 0.2 Immature Gran # (Auto) 0.03 H Neut # (Auto) 5.11 Lymph # (Auto) 0.50 L [place] # (Auto) 0.42 Eos # (Auto) 0.53 H Baso # (Auto) 0.01 Ovalocytes 1+ Echinocytes 1+ Sodium 139 Potassium 4.1 Chloride 111 H Carbon Dioxide 18 L Anion Gap 10.0 BUN 64 H Creatinine 4.78 H* Est Cr Clr Drug Dosing 15.2 Est GFR ( Amer) 13.0 Est GFR (Non-Af Amer) 11.2 BUN/Creatinine Ratio 13.3 Glucose 87 Calcium 9.6 Phosphorus 3.8 Magnesium 1.9 Total Bilirubin 0.4 AST 35 ALT 20 Alkaline Phosphatase 77 Total Protein 5.9 L Albumin 2.3 L Globulin 3.6 Albumin/Globulin Ratio 0.6 L
--- NOTE | 2018-12-09 14:34 | Family Medicine Progress Note ---
Date of Service December 09, 2018 Assessment & Plan (1) Acute kidney injury: Mr. De La Cruz is a 73 year old male with a past medical history including chronic kidney disease stage IV, coronary artery disease s/p stent placement x1, hypertension, peripheral vascular disease s/p balloon angioplasty and stent placement, hypercholesterolemia, GERD, history of obstructive sleep apnea who presents to the emergency department with a 3-day history of right-sided abdominal pain. In the ED, patient found to have critical labs, including a creatinine level of 5.95 and a calcium level of 12.9. He was also found to have 12 cm and 2.2 cm hepatic masses. -on telemetry -creatinine level was 5.95 on admission - significantly worse than baseline (2.3) and from labs drawn in October (3.28) -5.95->5.90->5.35->4.96->4.64 -> 4.78 today trended up. -Patient with history of chronic kidney disease stage IV presumed related to microvascular disease -KATHY felt to be pre-renal from diuretic effect from hypercalcemia. -Renal artery dopplers = Portions of the bilateral renal arteries obscured. Therefore, this study is technically nondiagnostic but no elevated velocities within visualized portions of the renal arteries; Moderate bilateral renal atrophy and increased echogenicity -Nephrology consulted, and no indication for dialysis. Will monitor electrolyte for abnormalities. - IV fluids discontinued. - continue to hold ACEI/ ARB, calcium, vitamin-D and avoid all calcium and vitamin-D supplement - Phos was elevated at admit 7.6 -> 5.3 -> 4.6 -> 4.2 -> 3.8 today - Mag 2.3 (12/06/18) -> 2.1 -> 2.0 -> 1.9 today, will continue to monitor - Nephro recs reviewed including holding IVF, ACEI/ARB, calcium and Vit D supplements. Continue venofer. Increase NaHCO3 to 1300mg BID. Code status: FULL DVT Prophylaxis: SCDs Disposition: admit to telemetry (2) Liver mass: -Dc'd asprin/plavix day 3 -suspicion is for hepatocellular carcinoma -MRI abdomen w/out contrast = 11 cm lobulated right hepatic lobe mass highly suggestive of malignancy; Two additional hepatic lesions which measure up to 2 cm which are suboptimally assessed on this unenhanced exam but worrisome for satellite lesions/metastases; Fatty infiltration of the liver; No abdominal lymphadenopathy. -CEA negative, AFP pending -heme/onc consulted previously -PTH ordered and was normal -Did not tolerate Morphine, discontinued Morphine and ordered Oxycodone 5mg q4h PRN which patient did not tolerate. Will order Tramadol but will need renal dosing of drug, Tramadol 50mg q12 ordered. (3) Hypercalcemia: -calcium level 12.9 on admission -suspect secondary to possible underlying malignancy -Calcitonin 4units/kg dose SQ x2 night of admission, and Zoledronic Acid 4mg IV x1 given 12/05 -parathyroid hormone related peptide pending - On admit 12.9 -> 12.0 -> 11.4 -> 10.0 -> 9.6 -> 9.6 -> 9.6 today. Stable. - Continue to monitor (4) Anemia: -Hgb generally between 10 and 11, 8.6 on admission -Likely related to chronic kidney disease given slow progression (last Hgb in October was 9.4) and negative prior endoscopic workup. -Currently on Venofir IV iron with plan for 5 total bags of treatment. -Also received Epogen 4000 units on 12/07 (2 days ago) - On admit 8.6 -> 8.6 -> 8.2-> 8.2 -> 8.7 -> 8.2 -> 7.9 -> 7.9 today. Stable without signs of acute bleed. Will continue to monitor. (5) Hypertension: -Has had some elevated systolic values with 24-hour range 126-178/53-72. -hold home losartan given KATHY (6) Coronary artery disease: -dc'd asprin plavix for upcoming bx (7) Peripheral vascular disease: -dc'd asprin plavix for upcoming bx (8) Chronic renal disease, stage IV: (9) MAEGAN (obstructive sleep apnea): -continue with CPAP, however patient does not routinely wear it (10) Hypercholesteremia: -continue home atorvastatin (11) Neuropathy: -hold home gabapentin in the setting of worsening kidney function (12) GERD (gastroesophageal reflux disease): Scheduled Protonix 40mg PO qAM (13) Nausea and vomiting: Zofran 4mg IV q6hr ordered (14) Depression: -continue citalopram (15) Scrotal swelling: patient states is non-acute, maybe been present for 1 month, asymptomatic. U/S scroum this morning IMPRESSION: 1. Prominent collections in the right hemiscrotum, not consistent with hydroceles, suspected to represent spermatoceles. The larger of the two collections has a calculated volume of 170 mL. 2. Partially cystic partially solid subcentimeter lesion in the left testis. This is indeterminate. Neoplastic process is considered unlikely but difficult to exclude. Urologic consultation with follow-up ultrasound in one to 2 months recommended. 3. Left varicocele. 4. No testicular torsion. Nurse Navigator contacted for outpatient Urology follow up. Briefs for support, discuss not to wear boxers as lack of scrotal support could cause pain. Unsure of etiology Supervising Physician Co-Signing Physician Notes Patient seen and examined with the resident. Agree with history, physical exam, assessment and plan with the following updates/corrections: 73yo with hx of CKD, CAD and PVD, MAEGAN who was admitted with KATHY on CKD and new hepatic mass. Today, he is stable. Still have pain in the right flank, with some improvement from the pain medication. 1) KATHY on CKD - - Cr slowly improving. - Encouraging PO intake. Stopped IVFs. - Increased BiCarb today per nephrology. - Trend Cr 2) Hepatic mass - Likely HCC. - Holding ASA/Plavix - Will need to discuss with radiology if they will do it in-house. - Oxy for pain 3) Anemia - Chronic and stable. Seen by oncology with thought that is is anemia of chronic disease and renal disease. - Received epo this admission. - On IV iron daily x 5 doses - Continue oral iron supplement - Trend hgb 4) Hypercalcemia - S/p calcitonin and bisphos. Normalized. Monitor. Subjective Mr. De La Cruz reports no acute events overnight. He does mention that he does not tolerate oxycodone and that it makes him "feel goofy." Last week he did not tolerate Morphine for same reasons. He reports that he still has right sided abdominal pain that is made better with laying still. He denies constipation and does not report recent BM, black/bloody stools. He denies current nausea or vomiting, fever or chills. Physical Exam Vital Signs (Past 24 Hours): Last Vital Signs Temp 37.1 C 12/09/18 11:33 Pulse 72 12/09/18 11:33 Resp 16 12/09/18 11:33 BP 143/72 H 12/09/18 11:33 Pulse Ox 96 12/09/18 11:33 Constitutional: WD/WN, vitals as above Eyes: + anicteric sclerae Neck: normal visual inspection and trachea midline Respiratory: normal respiratory effort, lungs clear to auscultation Cardiovascular: RRR, no murmur, no edema Gastrointestinal (Abdomen): Percussion/Palpation: + abdomen tender (right abdomen) and + abdominal mass (right abdomen); no guarding and abdomen not rigid Musculoskeletal: Head/Neck/Chest: normocephalic and head atraumatic Skin: no rashes, warm and dry Neurologic: moves all extremities and awake Psychiatric: A+Ox3, euthymic affect Results & Data Laboratory Results Laboratory Results - last 24 hr 12/09/18 12/09/18 05:20 05:20 WBC 6.60 RBC 2.86 L Hgb 7.9 L Hct 25.2 L MCV 88.1 MCH 27.6 MCHC 31.3 L RDW Std Deviation 49.6 H RDW Coeff of [place]om[place] 15.5 H Plt Count 234 MPV 9.1 Immature Gran % (Auto) 0.5 Neut % (Auto) 77.3 Lymph % (Auto) 7.6 [place] % (Auto) 6.4 Eos % (Auto) 8.0 Baso % (Auto) 0.2 Immature Gran # (Auto) 0.03 H Neut # (Auto) 5.11 Lymph # (Auto) 0.50 L [place] # (Auto) 0.42 Eos # (Auto) 0.53 H Baso # (Auto) 0.01 Ovalocytes 1+ Echinocytes 1+ Sodium 139 Potassium 4.1 Chloride 111 H Carbon Dioxide 18 L Anion Gap 10.0 BUN 64 H Creatinine 4.78 H* Est Cr Clr Drug Dosing 15.2 Est GFR ( Amer) 13.0 Est GFR (Non-Af Amer) 11.2 BUN/Creatinine Ratio 13.3 Glucose 87 Calcium 9.6 Phosphorus 3.8 Magnesium 1.9 Total Bilirubin 0.4 AST 35 ALT 20 Alkaline Phosphatase 77 Total Protein 5.9 L Albumin 2.3 L Globulin 3.6 Albumin/Globulin Ratio 0.6 L Medications Administered Atorvastatin Calcium (Lipitor) 80 mg PO HS GAURI Stop: 01/04/19 20:59 Last Admin: 12/08/18 21:23 Dose: 80 mg Documented by: [id number] Admin: 12/07/18 21:22 Dose: 80 mg Documented by: [id number] Admin: 12/06/18 20:04 Dose: 80 mg Documented by: [id number] Admin: 12/05/18 20:52 Dose: 80 mg Documented by: [id number] Admin: 12/05/18 01:44 Dose: 80 mg Documented by: [id number] Citalopram Hydrobromide (Celexa) 20 mg PO DAILY GAURI Stop: 01/04/19 08:59 Last Admin: 12/09/18 08:45 Dose: 20 mg Documented by: [id number] Admin: 12/08/18 09:12 Dose: 20 mg Documented by: [id number] Admin: 12/07/18 10:52 Dose: 20 mg Documented by: [id number] Admin: 12/06/18 08:45 Dose: 20 mg Documented by: [id number] Admin: 12/05/18 08:10 Dose: 20 mg Documented by: [id number] Ferrous Sulfate (Feosol) 325 mg PO DAILY GAURI Stop: 01/04/19 08:59 Last Admin: 12/09/18 08:45 Dose: 325 mg Documented by: [id number] Admin: 12/08/18 09:12 Dose: 325 mg Documented by: [id number] Admin: 12/07/18 07:59 Dose: 325 mg Documented by: [id number] Admin: 12/06/18 08:45 Dose: 325 mg Documented by: [id number] Admin: 12/05/18 08:10 Dose: 325 mg Documented by: [id number] Finasteride (Proscar) 5 mg PO DAILY GAURI Stop: 01/04/19 08:59 Last Admin: 12/09/18 08:45 Dose: 5 mg Documented by: [id number] Admin: 12/08/18 09:12 Dose: 5 mg Documented by: [id number] Admin: 12/07/18 07:59 Dose: 5 mg Documented by: [id number] Admin: 12/06/18 08:45 Dose: 5 mg Documented by: [id number] Admin: 12/05/18 08:03 Dose: Not Given Documented by: [id number] Admin: 12/05/18 01:44 Dose: 5 mg Documented by: [id number] Iron Sucrose 200 mg/ Sodium (Chloride) 110 mls @ 220 mls/hr IV Q2D@1100 [facility] Stop: 12/16/18 11:29 Last Infusion: 12/08/18 11:53 Dose: 0 mls/hr Documented by: [id number] Admin: 12/08/18 11:12 Dose: 220 mls/hr Documented by: [id number] Ondansetron HCl (Zofran) 4 mg IV Q6H PRN PRN Reason: Nausea Stop: 12/11/18 12:29 Last Admin: 12/06/18 13:01 Dose: 4 mg Documented by: [id number] [facility]oprazole S[facility]ix) [facility] [place] Stop: 01/05/19 13:29 Last Admin: 12/09/18 08:45 Dose: 40 mg Documented by: [id number] Admin: 12/08/18 09:13 Dose: 40 mg Documented by: [id number] Admin: 12/07/18 07:59 Dose: 40 mg Documented by: [id number] Admin: 12/06/18 16:07 Dose: 40 mg Documented by: [id number] Senna/Docusate Sodium (Senokot S) 1 tab PO [facility] Stop: 01/07/19 14:59 Last Admin: 12/09/18 08:45 Dose: 1 tab Documented by: [id number] Admin: 12/08/18 17:18 Dose: 1 tab Documented by: [id number]
[2018-12-09] MEDS: ATORVASTATIN 40 MG TAB PO SCH (20:24)
[2018-12-10 06:05] LABS: Basophils # (auto) 0.01 K/uL (0-0.2); Basophils % (auto) 0.1 %; Eosinophils # (auto) 0.55 K/uL (0-0.5); Eosinophils % (auto) 7.6 %; Hematocrit (blood only) 26.1 % (42-52); Hemoglobin 8.4 g/dL (14.0-18.0); Immature Granulocytes # (auto) 0.03 K/uL (0.00-0.02); Immature Granulocytes % (auto) 0.4 %; Lymphocytes # (auto) 0.58 K/uL (1.2-3.4); Mean Corpuscular Hgb Conc 32.2 g/dL (32-36); Mean Corpuscular Volume 87.3 fL (80-100); Monocytes # (auto) 0.46 K/uL (0.11-0.59); Monocytes % (auto) 6.4 %; Neutrophils # (auto) 5.61 K/uL (1.4-6.5); Neutrophils % (auto) 77.5 %; Platelet Count 253 K/uL (130-400); RDW Coefficient of Variation 15.4 % (11.5-14.5); RDW Standard Deviation 49.3 fL (36.4-46.3); Red Blood Count 2.99 M/uL (4.7-6.1); White Blood Count 7.24 K/uL (4.8-10.8)
[2018-12-10 06:28] LABS: Echinocytes 1+; Ovalocytes 1+
[2018-12-10 06:53] LABS: Albumin Globulin Ratio 0.6 (0.9-2); Albumin Level 2.4 gm/dl (3.4-5.0); BUN Creatinine Ratio 13.7 (10-20); Bilirubin,Total 0.4 mg/dl (0.2-1); Calcium 9.5 mg/dl (8.5-10.1); Creatinine Clr Calc Pharmacy 14.2 ml/min; Est GFR (African American) 11.9; Est GFR (Non-African American) 10.3; Globulin 3.7 gm/dl (2.5-4.0); Magnesium 1.8 mg/dl (1.8-2.4); Phosphorus 3.6 mg/dl (2.5-4.9); Potassium 3.9 mmol/L (3.5-5.1); Total Protein 6.1 gm/dl (6.4-8.2)
[2018-12-10] MEDS: CITALOPRAM 20 MG TAB PO SCH (08:09)
[2018-12-10] MEDS: SODIUM BICARBONATE 650 MG TAB PO SCH ×2 (08:09→20:33)
[2018-12-10] MEDS: DOCUSATE SODIUM/SENNA 50/8.6MG TAB PO SCH (08:09)
[2018-12-10] MEDS: PANTOprazole 40 MG TAB PO SCH (08:09)
[2018-12-10] MEDS: FINASTERIDE 5 MG TAB PO SCH (08:10)
[2018-12-10] MEDS: FERROUS SULFATE 325 MG TAB PO SCH (08:10)
--- NOTE | 2018-12-10 10:26 | Nephrology Progress Note ---
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 Admitted with 3 days history of right upper quadrant abdominal pain. Evaluation revealed a hepatic mass. MRI is concerning for possible cholangiocarcinoma. On admission, creatinine was 6 mg/dL with hypercalcemia. KATHY hemodynamically mediated in the setting of hypercalcemia and poor p.o. intake. Calcium improved with IV fluid and Calcitonin. PTH, PTH RP normal. Carcinoembryonic antigen was negative, alpha fetoprotein is currently pending. Medical history includes iron deficiency anemia. Previous GI workup including capsule endoscopy was negative. Received Epogen 58534 units on 12/07/2018. Is currently receiving treatment with venofer. He also has scrotal swelling for last 1 month, ultrasound showed hydroceles as well as cystic lesion in testicle. Outpatient Urology follow-up in a month is suggested. Hypercalcemia resolved. KATHY improving. Creatinine rising. Unclear the etiology of persistent KATHY. Repeat UA/micro has been requested. Medications appear appropriate for kidney function. This was discussed with Dr. Gallagher this morning. Consider possible spontaneous TLS. Will check UA and electrolytes with repeat BUN/creatinine. Suggest maintaining a slightly positive fluid balance. IV normosol or neurtral IVF when NPO. Continue to hold ACEI/ ARB, calcium, vitamin-D and avoid all calcium and vitamin-D supplement Continue venofer as Rx. Continue NaHCO3 to 1300 mg BID. (2) Hypercalcemia: (3) Liver mass: (4) Chronic renal disease, stage IV: (5) Hypertension: (6) Anemia: Subjective No acute events overnight. Manuel was seen and examined in his room this AM. He continues to experience intermittent right upper quadrant abdominal pain. Appetite is fair. He denies fevers or chills. He does not have any urinary symptoms. Denies shortness of breath. Blood pressure stable. No edema. Review of Systems All systems reviewed & are unremarkable except as noted in HPI & below Physical Exam Vital Signs (Past 24 Hours): Last Vital Signs Temp 36.4 C L 12/10/18 10:02 Pulse 41 L 12/10/18 10:02 Resp 18 12/10/18 10:02 BP 168/52 H 12/10/18 10:02 Pulse Ox 97 12/10/18 10:02 Constitutional: well developed; no acute distress and not edematous Eyes: no conjunctival abnormality and no scleral abnormality ENMT: Mouth: no oral mucosal abnormality and oral mucous membranes not dry Neck: normal visual inspection Thyroid: normal thyroid Respiratory: normal respiratory effort; no respiratory distress and no labored breathing Auscultation: lungs clear to auscultation bilaterally Cardiovascular: Rate/Rhythm: regular rate and regular rhythm Gastrointestinal (Abdomen): Inspection/Auscultation: + abdomen distended; no abdominal edema Percussion/Palpation: abdomen soft; abdomen nontender Musculoskeletal: Extremities: no cyanosis and no clubbing Skin: no rashes, warm and dry Neurologic: Motor/Sensory: no tremor and no asterixis Psychiatric: Orientation: alert Eye Contact: good eye contact Mood: no depressed mood Results & Data Laboratory Results Laboratory Results - last 24 hr 12/10/18 12/10/18 05:49 05:49 WBC 7.24 RBC 2.99 L Hgb 8.4 L Hct 26.1 L MCV 87.3 MCH 28.1 MCHC 32.2 RDW Std Deviation 49.3 H RDW Coeff of [place]om[place] 15.4 H Plt Count 253 MPV 9.0 Immature Gran % (Auto) 0.4 Neut % (Auto) 77.5 Lymph % (Auto) 8.0 [place] % (Auto) 6.4 Eos % (Auto) 7.6 Baso % (Auto) 0.1 Immature Gran # (Auto) 0.03 H Neut # (Auto) 5.61 Lymph # (Auto) 0.58 L [place] # (Auto) 0.46 Eos # (Auto) 0.55 H Baso # (Auto) 0.01 Ovalocytes 1+ Echinocytes 1+ Sodium 140 Potassium 3.9 Chloride 111 H Carbon Dioxide 19 L Anion Gap 10.0 BUN 70 H Creatinine 5.13 H* D Est Cr Clr Drug Dosing 14.2 Est GFR ( Amer) 11.9 Est GFR (Non-Af Amer) 10.3 BUN/Creatinine Ratio 13.7 Glucose 93 Calcium 9.5 Phosphorus 3.6 Magnesium 1.8 Total Bilirubin 0.4 AST 32 ALT 22 Alkaline Phosphatase 79 Total Protein 6.1 L Albumin 2.4 L Globulin 3.7 Albumin/Globulin Ratio 0.6 L
[2018-12-10] MEDS: IRON SUCROSE 200 MG in 0.9 % SODIUM CHLORIDE 100 ML IV SCH (11:35)
[2018-12-10 13:21] LABS: Appearance Urine Clear (Clear); Bacteria Urine Automated Negative (Negative); Bilirubin Urine Negative (Negative); Blood Urine Trace (Negative); Cast Urine Automated 0 /lpf (0-5); Color Urine Yellow; Epithelial Cell Urine Auto 0-5 /lpf (0-5); Glucose Urine UA Negative (Negative); Ketones Urine Negative (Negative); Leukocyte Esterase Urine Negative (Negative); Nitrite Urine Negative (Negative); Protein Urine 1+ (Negative); RBC Urine Automated 0-4 /hpf (0-4); Specific Gravity Urine 1.013 (1.000-1.030); Urobilinogen Urine Negative (Negative); pH Urine 5.5 (4.5-7.5)
[2018-12-10 13:33] LABS: BUN Creatinine Ratio 14.8 (10-20); Calcium 9.8 mg/dl (8.5-10.1); Creatinine Clr Calc Pharmacy 14.7 ml/min; Est GFR (African American) 12.4; Est GFR (Non-African American) 10.7; Magnesium 1.9 mg/dl (1.8-2.4); Potassium 3.7 mmol/L (3.5-5.1); Uric Acid 5.3 mg/dl (2.6-7.2)
--- NOTE | 2018-12-10 14:05 | Family Medicine Progress Note ---
Date of Service December 10, 2018 Assessment & Plan (1) Acute kidney injury: Mr. De La Cruz is a 73 year old male with a past medical history including chronic kidney disease stage IV, coronary artery disease s/p stent placement x1, hypertension, peripheral vascular disease s/p balloon angioplasty and stent placement, hypercholesterolemia, GERD, history of obstructive sleep apnea who presents to the emergency department with a 3-day history of right-sided abdominal pain. In the ED, patient found to have critical labs, including a creatinine level of 5.95 and a calcium level of 12.9. He was also found to have 12 cm and 2.2 cm hepatic masses. -on telemetry -creatinine level was 5.95 on admission - significantly worse than baseline (2.3) and from labs drawn in October (3.28) -5.95->5.90->5.35->4.96->4.64 -> 4.78 --> 5.13 today trended up. -Patient with history of chronic kidney disease stage IV presumed related to microvascular disease -KATHY felt to be pre-renal from diuretic effect from hypercalcemia. -Renal artery dopplers = Portions of the bilateral renal arteries obscured. The refore, this study is technically nondiagnostic but no elevated velocities within visualized portions of the renal arteries; Moderate bilateral renal atrophy and increased echogenicity -Nephrology consulted, and no indication for dialysis. Will monitor electrolyte for abnormalities. - IV fluids discontinued. - continue to hold ACEI/ ARB, calcium, vitamin-D and avoid all calcium and vitamin-D supplement - Phos was elevated at admit 7.6 -> 5.3 -> 4.6 -> 4.2 -> 3.8 -> 3.6today - Mag 2.3 (12/06/18) -> 2.1 -> 2.0 -> 1.9 -> 1.8 today, will continue to monitor - Nephro recs reviewed including holding IVF, ACEI/ARB, calcium and Vit D supplements. Continue venofer. Increase NaHCO3 to 1300mg BID. - Unsure of etiology of elevated Creatinine today to 5.13. His potassium is normal and he is urinating. Will check repeat BMP this afternoon with Uric acid to rule out Tumor Lysis Syndrome. Code status: FULL DVT Prophylaxis: SCDs Disposition: admit to telemetry (2) Liver mass: -Dc'd asprin/plavix day 4/ -suspicion is for hepatocellular carcinoma vs. choleangiocarcinoma -MRI abdomen w/out contrast = 11 cm lobulated right hepatic lobe mass highly sug gestive of malignancy; Two additional hepatic lesions which measure up to 2 cm which are suboptimally assessed on this unenhanced exam but worrisome for satellite lesions/metastases; Fatty infiltration of the liver; No abdominal lymphadenopathy. -CEA negative, AFP pending -heme/onc consulted previously -PTH ordered and was normal -Did not tolerate Morphine, discontinued Morphine and ordered Oxycodone 5mg q4h PRN which patient did not tolerate. Will order Tramadol but will need renal dosing of drug, Tramadol 50mg q12 ordered and tolerating it well. -Will contact Radiology today about setting up U/S guided liver biopsy. (3) Hypercalcemia: -calcium level 12.9 on admission -suspect secondary to possible underlying malignancy -Calcitonin 4units/kg dose SQ x2 night of admission, and Zoledronic Acid 4mg IV x1 given 12/05 -parathyroid hormone related peptide pending - On admit 12.9 -> 12.0 -> 11.4 -> 10.0 -> 9.6 -> 9.6 -> 9.5 today. Stable. - Continue to monitor (4) Anemia: -Hgb generally between 10 and 11, 8.6 on admission -Likely related to chronic kidney disease given slow progression (last Hgb in October was 9.4) and negative prior endoscopic workup. -Currently on Venofir IV iron with plan for 5 total bags of treatment. -Also received Epogen 4000 units on 12/07 (3 days ago) - On admit 8.6 -> 8.6 -> 8.2-> 8.2 -> 8.7 -> 8.2 -> 7.9 -> 7.9 -> 8.4(improved) today. Stable without signs of acute bleed. Will continue to monitor. (5) Hypertension: -Has had some elevated systolic values 133/58 this morning -hold home losartan given KATHY (6) Coronary artery disease: -dc'd asprin plavix for upcoming bx (day 4/5) (7) Peripheral vascular disease: -dc'd asprin plavix for upcoming bx (day 4/5) (8) Chronic renal disease, stage IV: (9) MAEGAN (obstructive sleep apnea): -continue with CPAP, however patient does not routinely wear it (10) Hypercholesteremia: -continue home atorvastatin (11) Neuropathy: -hold home gabapentin in the setting of worsening kidney function (12) GERD (gastroesophageal reflux disease): Scheduled Protonix 40mg PO qAM (13) Nausea and vomiting: Zofran 4mg IV q6hr ordered (14) Depression: -continue citalopram (15) Scrotal swelling: patient states is non-acute, maybe been present for 1 month, asymptomatic. U/S scroum this morning IMPRESSION: 1. Prominent collections in the right hemiscrotum, not consistent with hydroceles, suspected to represent spermatoceles. The larger of the two collections has a calculated volume of 170 mL. 2. Partially cystic partially solid subcentimeter lesion in the left testis. This is indeterminate. Neoplastic process is considered unlikely but difficult to exclude. Urologic consultation with follow-up ultrasound in one to 2 months recommended. 3. Left varicocele. 4. No testicular torsion. Nurse Navigator contacted for outpatient Urology follow up. Briefs for support, discuss not to wear boxers as lack of scrotal support could cause pain. Unsure of etiology Supervising Physician Co-Signing Physician Notes Patient seen and examined with the resident. Agree with history, physical exam, assessment and plan with the following updates/corrections: 73yo with hx of CKD, CAD and PVD, MAEGAN who was admitted with KATHY on CKD and new hepatic mass. Today, he is stable. Still have pain in the right flank, though the tramadol helps. No other major issues. 1) KATHY on CKD - - Cr not really improving today, back up to 5. - Encouraging PO intake. Stopped IVFs. - Discussed with nephrology on 12/10. Will check uric acid and repeat BMP, Mg, Phos in the afternoon. - Trend Cr 2) Hepatic mass - Likely HCC vs. cholangiocarcinoma. - Holding ASA/Plavix - Discussing with radiology if they will do it in-house. - Tramadol for pain 3) Anemia - Chronic and stable. Seen by oncology with thought that is is anemia of chronic disease and renal disease. - Received epo this admission. - On IV iron daily x 5 doses - Continue oral iron supplement - Trend hgb - As of 12/10 was 8.4 which is stable. 4) Hypercalcemia - S/p calcitonin and bisphos. Normalized. Monitor. Subjective No acute events overnight for Mr. De La Cruz. He states he had a BM this morning without bloody stools but it was dark. He notes tolerating Tramadol well. He states he is urinating without difficulty. He notes no more episodes of nausea or vomiting. Physical Exam Vital Signs (Past 24 Hours): Last Vital Signs Temp 36.7 C 12/10/18 11:27 Pulse 64 12/10/18 11:27 Resp 22 12/10/18 11:27 BP 113/60 12/10/18 11:27 Pulse Ox 98 12/10/18 11:27 Constitutional: WD/WN, vitals as above Eyes: + anicteric sclerae Neck: normal visual inspection and trachea midline Respiratory: normal respiratory effort, lungs clear to auscultation Cardiovascular: RRR, no murmur, no edema Gastrointestinal (Abdomen): Percussion/Palpation: + abdomen tender (right abdomen), abdomen soft and + abdominal mass (right abdomen); no guarding and abdomen not rigid Musculoskeletal: Head/Neck/Chest: normocephalic and head atraumatic Skin: no rashes, warm and dry Neurologic: moves all extremities and awake Psychiatric: A+Ox3, euthymic affect Results & Data Laboratory Results Laboratory Results - last 24 hr 12/10/18 12/10/18 12/10/18 05:49 05:49 12:30 WBC 7.24 RBC 2.99 L Hgb 8.4 L Hct 26.1 L MCV 87.3 MCH 28.1 MCHC 32.2 RDW Std Deviation 49.3 H RDW Coeff of [place]om[place] 15.4 H Plt Count 253 MPV 9.0 Immature Gran % (Auto) 0.4 Neut % (Auto) 77.5 Lymph % (Auto) 8.0 [place] % (Auto) 6.4 Eos % (Auto) 7.6 Baso % (Auto) 0.1 Immature Gran # (Auto) 0.03 H Neut # (Auto) 5.61 Lymph # (Auto) 0.58 L [place] # (Auto) 0.46 Eos # (Auto) 0.55 H Baso # (Auto) 0.01 Ovalocytes 1+ Echinocytes 1+ Sodium 140 Potassium 3.9 Chloride 111 H Carbon Dioxide 19 L Anion Gap 10.0 BUN 70 H Creatinine 5.13 H* D Est Cr Clr Drug Dosing 14.2 Est GFR ( Amer) 11.9 Est GFR (Non-Af Amer) 10.3 BUN/Creatinine Ratio 13.7 Glucose 93 Uric Acid Calcium 9.5 Phosphorus 3.6 Magnesium 1.8 Total Bilirubin 0.4 AST 32 ALT 22 Alkaline Phosphatase 79 Total Protein 6.1 L Albumin 2.4 L Globulin 3.7 Albumin/Globulin Ratio 0.6 L Urine Color Yellow Urine Appearance Clear Urine pH 5.5 Ur Specific [place] 1.013 Urine Protein 1+ H Urine Glucose (UA) Negative Urine Ketones Negative Urine Blood Trace H Urine Nitrite Negative Urine Bilirubin Negative Urine Urobilinogen Negative Ur Leukocyte Esterase Negative Urine WBC (Auto) 1-5 Urine RBC (Auto) 0-4 U Hyaline Cast (Auto) 0 U Epithel Cells (Auto) 0-5 Urine Bacteria (Auto) Negative 12/10/18 12:52 WBC RBC Hgb Hct MCV MCH MCHC RDW Std Deviation RDW Coeff of [place] Plt Count MPV Immature Gran % (Auto) Neut % (Auto) Lymph % (Auto) [place] % (Auto) Eos % (Auto) Baso % (Auto) Immature Gran # (Auto) Neut # (Auto) Lymph # (Auto) [place] # (Auto) Eos # (Auto) Baso # (Auto) Ovalocytes Echinocytes Sodium 139 Potassium 3.7 Chloride 109 H Carbon Dioxide 19 L Anion Gap 11.0 BUN 73 H Creatinine 4.97 H* Est Cr Clr Drug Dosing 14.7 Est GFR ( Amer) 12.4 Est GFR (Non-Af Amer) 10.7 BUN/Creatinine Ratio 14.8 Glucose 125 H Uric Acid 5.3 Calcium 9.8 Phosphorus Magnesium 1.9 Total Bilirubin AST ALT Alkaline Phosphatase Total Protein Albumin Globulin Albumin/Globulin Ratio Urine Color Urine Appearance Urine pH Ur Specific [place] Urine Protein Urine Glucose (UA) Urine Ketones Urine Blood Urine Nitrite Urine Bilirubin Urine Urobilinogen Ur Leukocyte Esterase Urine WBC (Auto) Urine RBC (Auto) U Hyaline Cast (Auto) U Epithel Cells (Auto) Urine Bacteria (Auto) Medications Administered Atorvastatin Calcium (Lipitor) 80 mg PO [facility] Stop: 01/04/19 20:59 Last Admin: 12/09/18 20:24 Dose: 80 mg Documented by: [id number] Admin: 12/08/18 21:23 Dose: 80 mg Documented by: [id number] Admin: 12/07/18 21:22 Dose: 80 mg Documented by: [id number] Admin: 12/06/18 20:04 Dose: 80 mg Documented by: [id number] Admin: 12/05/18 20:52 Dose: 80 mg Documented by: [id number] Admin: 12/05/18 01:44 Dose: 80 mg Documented by: [id number] Citalopram Hydrobromide (Celexa) 20 mg PO DAILY [facility] Stop: 01/04/19 08:59 Last Admin: 12/10/18 08:09 Dose: 20 mg Documented by: [id number] Admin: 12/09/18 08:45 Dose: 20 mg Documented by: [id number] Admin: 12/08/18 09:12 Dose: 20 mg Documented by: [id number] Admin: 12/07/18 10:52 Dose: 20 mg Documented by: [id number] Admin: 12/06/18 08:45 Dose: 20 mg Documented by: [id number] Admin: 12/05/18 08:10 Dose: 20 mg Documented by: [id number] Ferrous Sulfate (Feosol) 325 mg PO DAILY [facility] Stop: 01/04/19 08:59 Last Admin: 12/10/18 08:10 Dose: 325 mg Documented by: [id number] Admin: 12/09/18 08:45 Dose: 325 mg Documented by: [id number] Admin: 12/08/18 09:12 Dose: 325 mg Documented by: [id number] Admin: 12/07/18 07:59 Dose: 325 mg Documented by: [id number] Admin: 12/06/18 08:45 Dose: 325 mg Documented by: [id number] Admin: 12/05/18 08:10 Dose: 325 mg Documented by: [id number] Finasteride (Proscar) 5 mg PO DAILY [facility] Stop: 01/04/19 08:59 Last Admin: 12/10/18 08:10 Dose: 5 mg Documented by: [id number] Admin: 12/09/18 08:45 Dose: 5 mg Documented by: [id number] Admin: 12/08/18 09:12 Dose: 5 mg Documented by: [id number] Admin: 12/07/18 07:59 Dose: 5 mg Documented by: [id number] Admin: 12/06/18 08:45 Dose: 5 mg Documented by: [id number] Admin: 12/05/18 08:03 Dose: Not Given Documented by: [id number] Admin: 12/05/18 01:44 Dose: 5 mg Documented by: [id number] Iron Sucrose 200 mg/ Sodium (Chloride) 110 mls @ 220 mls/hr IV Q2D@1100 [facility] Stop: 12/16/18 11:29 Last Infusion: 12/10/18 12:19 Dose: 0 mls/hr Documented by: [id number] Admin: 12/10/18 11:35 Dose: 220 mls/hr Documented by: [id number] Infusion: 12/08/18 11:53 Dose: 0 mls/hr Documented by: [id number] Admin: 12/08/18 11:12 Dose: 220 mls/hr Documented by: [id number] Ondansetron HCl (Zofran) 4 mg IV Q6H PRN PRN Reason: Nausea Stop: 12/11/18 12:29 Last Admin: 12/06/18 13:01 Dose: 4 mg Documented by: [id number] [facility]oprazole S[facility]ix) [facility] [place] Stop: 01/05/19 13:29 Last Admin: 12/10/18 08:09 Dose: 40 mg Documented by: [id number] Admin: 12/09/18 08:45 Dose: 40 mg Documented by: [id number] Admin: 12/08/18 09:13 Dose: 40 mg Documented by: [id number] Admin: 12/07/18 07:59 Dose: 40 mg Documented by: [id number] Admin: 12/06/18 16:07 Dose: 40 mg Documented by: [id number] Polyethylene Glycol (Miralax Powder Packet) 17 gm PO BID PRN PRN Reason: Constipation Stop: 01/06/19 08:58 Last Admin: 12/09/18 19:15 Dose: 17 gm Documented by: [id number] Senna/Docusate Sodium (Senokot S) 1 [facility] [place] Stop: 01/07/19 14:59 Last Admin: 12/10/18 08:09 Dose: 1 tab Documented by: [id number] Admin: 12/09/18 08:45 Dose: 1 tab Documented by: [id number] Admin: 12/08/18 17:18 Dose: 1 tab Documented by: [id number] Sodium Bicarbonate (Sodium Bicarbonate) 1,300 mg PO BID [facility] Stop: 01/08/19 20:59 Last Admin: 12/10/18 08:09 Dose: 1,300 mg Documented by: [id number] Admin: 12/09/18 20:25 Dose: 1,300 mg Documented by: [id number] Tramadol HCl (Ultram) 50 mg PO Q12H PRN PRN Reason: Pain Stop: 01/08/19 09:19 Last Admin: 12/10/18 07:14 Dose: 50 mg Documented by: [id number]
[2018-12-10 18:16] LABS: AFP Tumor Marker Serum 1.7 NG/ML (<6.1)
[2018-12-10] MEDS: ATORVASTATIN 40 MG TAB PO SCH (20:32)
[2018-12-11 06:48] LABS: Basophils # (auto) 0.03 K/uL (0-0.2); Basophils % (auto) 0.4 %; Eosinophils # (auto) 0.49 K/uL (0-0.5); Eosinophils % (auto) 5.8 %; Hematocrit (blood only) 28.2 % (42-52); Hemoglobin 9.1 g/dL (14.0-18.0); Immature Granulocytes # (auto) 0.06 K/uL (0.00-0.02); Immature Granulocytes % (auto) 0.7 %; Lymphocytes # (auto) 0.42 K/uL (1.2-3.4); Lymphocytes % (auto) 4.9 %; Mean Corpuscular Hgb Conc 32.3 g/dL (32-36); Mean Platelet Volume 9.1 fL (7.4-10.4); Monocytes # (auto) 1.02 K/uL (0.11-0.59); Neutrophils % (auto) 76.2 %; Platelet Count 288 K/uL (130-400); RDW Coefficient of Variation 15.4 % (11.5-14.5); RDW Standard Deviation 49.1 fL (36.4-46.3); Red Blood Count 3.24 M/uL (4.7-6.1); White Blood Count 8.52 K/uL (4.8-10.8)
[2018-12-11 07:03] LABS: INR 1.1 (0.9-1.1); Prothrombin Time 11.3 Seconds (9.0-12.0)
[2018-12-11 07:33] LABS: Albumin Globulin Ratio 0.7 (0.9-2); Albumin Level 2.7 gm/dl (3.4-5.0); BUN Creatinine Ratio 13.7 (10-20); Bilirubin,Total 0.5 mg/dl (0.2-1); Calcium 9.7 mg/dl (8.5-10.1); Creatinine Clr Calc Pharmacy 14.8 ml/min; Est GFR (African American) 12.7; Est GFR (Non-African American) 10.9; Globulin 3.9 gm/dl (2.5-4.0); Magnesium 2.1 mg/dl (1.8-2.4); Total Protein 6.6 gm/dl (6.4-8.2)
--- NOTE | 2018-12-11 09:15 | Nephrology Progress Note ---
Date of Service December 11, 2018 Assessment & Plan (1) Acute kidney injury: Baseline stage IIIb-IV CKD (Cr ~2.5) attributed to microvascular disease. Admitted with 3 days history of right upper quadrant abdominal pain. Evaluation revealed a hepatic mass. MRI is concerning for possible cholangiocarcinoma. On admission, creatinine was 6 mg/dL with hypercalcemia. KATHY hemodynamically mediated in the setting of hypercalcemia and poor p.o. intake. Calcium improved with IV fluid and Calcitonin. PTH, PTH RP normal. Carcinoembryonic antigen was negative, alpha fetoprotein also negative. Medical history includes iron deficiency anemia. Previous GI workup including capsule endoscopy was negative. Received Epogen 05939 units on 12/07/2018. Is currently receiving treatment with venofer. He also has scrotal swelling for last 1 month, ultrasound showed hydroceles as well as cystic lesion in testicle. Outpatient Urology follow-up in a month is suggested. Hypercalcemia resolved. Creatinine stablized at 4.7-5.0 mg/dL. Repeat UA/micro remains acellular and unremarkable. Medications appear appropriate for kidney function. Serum UA and CPK not elevated. Electrolytes acceptable. Volume status appropriate. Good PO intake. Continue to hold ACEI/ ARB, calcium, vitamin-D and avoid all calcium and vitamin-D supplement Continue venofer as Rx. Continue NaHCO3 to 1300 mg BID. No emergent indication for [employer] at this time. The potential future need for dialysis was discussed in detain with Manuel and his family. (2) Hypercalcemia: (3) Liver mass: (4) Chronic renal disease, stage IV: (5) Hypertension: (6) Anemia: Subjective No acute events overnight. Manuel was taken for needle aspiration this morning. He remains afebrile. Appetite is good. He is drinking plenty of fluids. Review of Systems All systems reviewed & are unremarkable except as noted in HPI & below Physical Exam Vital Signs (Past 24 Hours): Last Vital Signs Temp 36.5 C 12/11/18 07:52 Pulse 57 L 12/11/18 07:52 Resp 18 12/11/18 07:52 BP 123/72 12/11/18 07:52 Pulse Ox 97 12/11/18 07:52 Constitutional: well developed; no acute distress and not edematous Eyes: no conjunctival abnormality and no scleral abnormality ENMT: Mouth: no oral mucosal abnormality and oral mucous membranes not dry Neck: normal visual inspection Thyroid: normal thyroid Respiratory: normal respiratory effort; no respiratory distress and no labored breathing Auscultation: lungs clear to auscultation bilaterally Cardiovascular: Rate/Rhythm: regular rate and regular rhythm Gastrointestinal (Abdomen): Inspection/Auscultation: + abdomen distended; no abdominal edema Percussion/Palpation: abdomen soft; abdomen nontender Musculoskeletal: Extremities: no cyanosis and no clubbing Skin: no rashes, warm and dry Neurologic: Motor/Sensory: no tremor and no asterixis Psychiatric: Orientation: alert Eye Contact: good eye contact Mood: no depressed mood Results & Data Laboratory Results Laboratory Results - last 24 hr 12/05/18 12/10/18 12/10/18 02:07 12:30 12:52 WBC RBC Hgb Hct MCV MCH MCHC RDW Std Deviation RDW Coeff of Xiomara Plt Count MPV Immature Gran % (Auto) Neut % (Auto) Lymph % (Auto) [place] % (Auto) Eos % (Auto) Baso % (Auto) Immature Gran # (Auto) Neut # (Auto) Lymph # (Auto) [place] # (Auto) Eos # (Auto) Baso # (Auto) PT INR Sodium 139 Potassium 3.7 Chloride 109 H Carbon Dioxide 19 L Anion Gap 11.0 BUN 73 H Creatinine 4.97 H* Est Cr Clr Drug Dosing 14.7 Est GFR ( Amer) 12.4 Est GFR (Non-Af Amer) 10.7 BUN/Creatinine Ratio 14.8 Glucose 125 H Uric Acid 5.3 Calcium 9.8 Phosphorus Magnesium 1.9 Total Bilirubin AST ALT Alkaline Phosphatase Total Creatine Kinase Total Protein Albumin Globulin Albumin/Globulin Ratio Tumor Marker AFP 1.7 PTH Related Protein 41 H Urine Color Yellow Urine Appearance Clear Urine pH 5.5 Ur Specific [place] 1.013 Urine Protein 1+ H Urine Glucose (UA) Negative Urine Ketones Negative Urine Blood Trace H Urine Nitrite Negative Urine Bilirubin Negative Urine Urobilinogen Negative Ur Leukocyte Esterase Negative Urine WBC (Auto) 1-5 Urine RBC (Auto) 0-4 U Hyaline Cast (Auto) 0 U Epithel Cells (Auto) 0-5 Urine Bacteria (Auto) Negative 12/11/18 12/11/18 12/11/18 06:32 06:32 06:32 WBC 8.52 RBC 3.24 L Hgb 9.1 L Hct 28.2 L MCV 87.0 MCH 28.1 MCHC 32.3 RDW Std Deviation 49.1 H RDW Coeff of [place]om[place] 15.4 H Plt Count 288 MPV 9.1 Immature Gran % (Auto) 0.7 Neut % (Auto) 76.2 Lymph % (Auto) 4.9 [place] % (Auto) 12.0 Eos % (Auto) 5.8 Baso % (Auto) 0.4 Immature Gran # (Auto) 0.06 H Neut # (Auto) 6.50 Lymph # (Auto) 0.42 L [place] # (Auto) 1.02 H Eos # (Auto) 0.49 Baso # (Auto) 0.03 PT 11.3 INR 1.1 Sodium 139 Potassium 4.0 Chloride 110 H Carbon Dioxide 19 L Anion Gap 10.0 BUN 67 H Creatinine 4.88 H* Est Cr Clr Drug Dosing 14.8 Est GFR ( Amer) 12.7 Est GFR (Non-Af Amer) 10.9 BUN/Creatinine Ratio 13.7 Glucose 95 Uric Acid Calcium 9.7 Phosphorus 4.0 Magnesium 2.1 Total Bilirubin 0.5 AST 40 H ALT 26 Alkaline Phosphatase 103 Total Creatine Kinase 69 Total Protein 6.6 Albumin 2.7 L Globulin 3.9 Albumin/Globulin Ratio 0.7 L Tumor Marker AFP PTH Related Protein Urine Color Urine Appearance Urine pH Ur Specific [place] Urine Protein Urine Glucose (UA) Urine Ketones Urine Blood Urine Nitrite Urine Bilirubin Urine Urobilinogen Ur Leukocyte Esterase Urine WBC (Auto) Urine RBC (Auto) U Hyaline Cast (Auto) U Epithel Cells (Auto) Urine Bacteria (Auto) 12/11/18 06:32 WBC RBC Hgb Hct MCV MCH MCHC RDW Std Deviation RDW Coeff of [place] Plt Count MPV Immature Gran % (Auto) Neut % (Auto) Lymph % (Auto) [place] % (Auto) Eos % (Auto) Baso % (Auto) Immature Gran # (Auto) Neut # (Auto) Lymph # (Auto) [place] # (Auto) Eos # (Auto) Baso # (Auto) PT INR Sodium Potassium Chloride Carbon Dioxide Anion Gap BUN Creatinine Est Cr Clr Drug Dosing Est GFR ( Amer) Est GFR (Non-Af Amer) BUN/Creatinine Ratio Glucose Uric Acid Calcium Phosphorus Magnesium Total Bilirubin AST ALT Alkaline Phosphatase Total Creatine Kinase Cancelled Total Protein Albumin Globulin Albumin/Globulin Ratio Tumor Marker AFP PTH Related Protein Urine Color Urine Appearance Urine pH Ur Specific [place] Urine Protein Urine Glucose (UA) Urine Ketones Urine Blood Urine Nitrite Urine Bilirubin Urine Urobilinogen Ur Leukocyte Esterase Urine WBC (Auto) Urine RBC (Auto) U Hyaline Cast (Auto) U Epithel Cells (Auto) Urine Bacteria (Auto)
[2018-12-11] MEDS ORDERED: ACETAMINOPHEN 500 MG TAB PO PRN (10:26)
--- NOTE | 2018-12-11 10:27 | Ultrasound Report ---
US FNA w/img 1st lesion CLINICAL HISTORY: 73 years-old Male presenting with LIVER MASS. TECHNIQUE: Real-time grayscale and limited color Doppler ultrasound imaging of the liver was performe d for targeted ultrasound-guided fine-needle aspiration and core needle biopsy. COMPARISON: MR from 12/05/2018. PROCEDURE: The risks, benefits, and alternatives of the procedure were discussed with the patient. Written infor med consent was obtained. A timeout was performed to confirm patient identity. The patient was placed right anterior oblique on the ultrasound table, and the 11 cm lesion in the ri ght lobe of the liver was localized by ultrasound and selected for biopsy. The right upper quadrant w as prepped and draped in the usual aseptic fashion. The lesion was first aspirated under ultrasound g uidance with 1 pass utilizing a 20-gauge spinal needle. Additionally, 1 pass through the lesion using an 18-gauge core needle was performed. Specimens were reviewed by the pathologist at the time of biopsy and were deemed adequate for diagnos is. The patient tolerated the procedure well. IMPRESSION: Successful fine-needle aspiration of the dominant right hepatic lobe lesion. Electronically signed by: Vasiliy Perdomo M.D. 12/11/2018 10:26 AM
--- NOTE | 2018-12-11 11:34 | Family Medicine Progress Note ---
Date of Service December 11, 2018 Assessment & Plan (1) Acute kidney injury: Mr. De La Cruz is a 73 year old male with a past medical history including chronic kidney disease stage IV, coronary artery disease s/p stent placement x1, hypertension, peripheral vascular disease s/p balloon angioplasty and stent placement, hypercholesterolemia, GERD, history of obstructive sleep apnea who presents to the emergency department with a 3-day history of right-sided abdominal pain. In the ED, patient found to have critical labs, including a creatinine level of 5.95 and a calcium level of 12.9. He was also found to have 12 cm and 2.2 cm hepatic masses. -on telemetry -creatinine level was 5.95 on admission - significantly worse than baseline (2.3) and from labs drawn in October (3.28) -5.95->5.90->5.35->4.96->4.64 -> 4.78 --> 5.13 --> 4.97 --> 4.889 today trended down. -Patient with history of chronic kidney disease stage IV presumed related to microvascular disease -KATHY felt to be pre-renal from diuretic effect from hypercalcemia. -Renal artery dopplers = Portions of the bilateral renal arteries obscured. Therefore, this study is technically nondiagnostic but no elevated velocities within visualized portions of the renal arteries; Moderate bilateral renal atrophy and increased echogenicity -Nephrology consulted, and no indication for dialysis. Will monitor electrolyte for abnormalities. - IV fluids discontinued. - continue to hold ACEI/ ARB, calcium, vitamin-D and avoid all calcium and vitamin-D supplement - Phos was elevated at admit 7.6 -> 5.3 -> 4.6 -> 4.2 -> 3.8 -> 3.6 --> 4.0 today - Mag 2.3 (12/06/18) -> 2.1 -> 2.0 -> 1.9 -> 1.8 -> 2.1 today, will continue to monitor - Nephro recs reviewed including holding IVF, ACEI/ARB, calcium and Vit D supplements. Continue venofer. Increase NaHCO3 to 1300mg BID. - Unsure of etiology of sustained elevated Creatinine from baseline. His potassium is normal and he is urinating. Yesterday checked repeat BMP this afternoon with Uric acid to rule out Tumor Lysis Syndrome, which was normal. - A U/A performed yesterday was positive for Protein +1 and Trace Blood - CK ordered this morning to rule out rhabdomyolysis from potential underlying cancer as urine had trace blood but no RBCs was normal. Code status: FULL DVT Prophylaxis: SCDs Disposition: admit to telemetry (2) Liver mass: -Dc'd asprin/plavix day 02/09 -suspicion is for hepatocellular carcinoma vs. choleangiocarcinoma - alpha protein resulted and was within normal limits 1.7, marker for Hepatolcellular carcinoma. -MRI abdomen w/out contrast = 11 cm lobulated right hepatic lobe mass highly suggestive of malignancy; Two additional hepatic lesions which measure up to 2 cm which are suboptimally assessed on this unenhanced exam but worrisome for satellite lesions/metastases; Fatty infiltration of the liver; No abdominal lymphadenopathy. -CEA negative -heme/onc consulted previously -PTH ordered and was normal -Did not tolerate Morphine, discontinued Morphine and ordered Oxycodone 5mg q4h PRN which patient did not tolerate. Currently on Tramadol but will need renal dosing of drug, Tramadol 50mg q12 ordered and tolerating it well. Radiology performed U/S guided liver biopsy this morning. Was NPO last night at midnight. - case discussed with nephro, and if tolerates lunch, can discharge home. Low risk for complications s/p biopsy and if there are complications, usually seen within first couple hours. (3) Hypercalcemia: -calcium level 12.9 on admission -suspect secondary to possible underlying malignancy -Calcitonin 4units/kg dose SQ x2 night of admission, and Zoledronic Acid 4mg IV x1 given 12/05 -parathyroid hormone related peptide pending - On admit 12.9 -> 12.0 -> 11.4 -> 10.0 -> 9.6 -> 9.6 -> 9.5 --> 9.7 today. Stable. - Continue to monitor (4) Anemia: -Hgb generally between 10 and 11, 8.6 on admission -Likely related to chronic kidney disease given slow progression (last Hgb in October was 9.4) and negative prior endoscopic workup. -Currently on Venofir IV iron with plan for 5 total bags of treatment. -Also received Epogen 4000 units on 12/07 (3 days ago) - On admit 8.6 -> 8.6 -> 8.2-> 8.2 -> 8.7 -> 8.2 -> 7.9 -> 7.9 -> 8.4 --> 8.52 (improved) today. Stable without signs of acute bleed. Will continue to monitor. (5) Hypertension: -Has had some elevated systolic values 137/65 this morning -hold home losartan given KATHY (6) Coronary artery disease: -dc'd asprin plavix for upcoming bx (day 02/09) (7) Peripheral vascular disease: -dc'd asprin plavix for bx (day 5) (8) Chronic renal disease, stage IV: (9) MAEGAN (obstructive sleep apnea): -continue with CPAP, however patient does not routinely wear it (10) Hypercholesteremia: -continue home atorvastatin (11) Neuropathy: -hold home gabapentin in the setting of worsening kidney function (12) GERD (gastroesophageal reflux disease): Scheduled Protonix 40mg PO qAM (13) Nausea and vomiting: Zofran 4mg IV q6hr ordered (14) Depression: -continue citalopram (15) Scrotal swelling: patient states is non-acute, maybe been present for 1 month, asymptomatic. U/S scroum this morning IMPRESSION: 1. Prominent collections in the right hemiscrotum, not consistent with hydroceles, suspected to represent spermatoceles. The larger of the two collections has a calculated volume of 170 mL. 2. Partially cystic partially solid subcentimeter lesion in the left testis. This is indeterminate. Neoplastic process is considered unlikely but difficult to exclude. Urologic consultation with follow-up ultrasound in one to 2 months recommended. 3. Left varicocele. 4. No testicular torsion. Nurse Navigator contacted for outpatient Urology follow up. Briefs for support, discuss not to wear boxers as lack of scrotal support could cause pain. Unsure of etiology (16) Runny nose: influenza swab ordered this morning and is pending. Supervising Physician Co-Signing Physician Notes Patient seen and examined with the resident. Agree with history, physical exam, assessment and plan with the following updates/corrections: 73yo with hx of CKD, CAD and PVD, MAEGAN who was admitted with KATHY on CKD and new hepatic mass. Today, he is stable. Mild pain in the right flank, though the tramadol helps. No other major issues. Seen after liver biopsy with no pain at the site. 1) KATHY on CKD - - Cr not really improving - Remained around 4.8-5.0. Checked uric acid yesterday which was normal, so tumor lysis syndrome doesn't fit. Discussed with nephrology who feel this might be his new baseline after hypercalcemia and dehydration. - Will follow up outpatient next week with nephrology. 2) Hepatic mass - Likely HCC vs. cholangiocarcinoma. - Holding ASA/Plavix until he is seen by a physician next week to avoid bleeding from biopsy site - Tramadol for pain 3) Anemia - Chronic and stable. Seen by oncology with thought that is is anemia of chronic disease and renal disease. - Received epo this admission. - On IV iron daily x 5 doses - Continue oral iron supplement - Hgb stable/increasing on discharge. Was 9.1 on discharge. 4) Hypercalcemia - S/p calcitonin and bisphos. Normalized. Monitor. Subjective No acute events overnight for Mr. De La Cruz. He states he is urinating without difficulty but had question if was urinating adequate amount. He notes no more episodes of nausea or vomiting. He did have upper respiratory complaints this morning of runny nose. No fevers, no chills. Physical Exam Vital Signs (Past 24 Hours): Last Vital Signs Temp 36.7 C 12/11/18 10:27 Pulse 74 12/11/18 10:27 Resp 18 12/11/18 10:27 BP 141/67 H 12/11/18 10:27 Pulse Ox 99 12/11/18 10:27 Constitutional: WD/WN, vitals as above Eyes: + anicteric sclerae Neck: normal visual inspection and trachea midline Respiratory: normal respiratory effort, lungs clear to auscultation Cardiovascular: RRR, no murmur, no edema Gastrointestinal (Abdomen): Percussion/Palpation: + abdomen tender (right abdomen), abdomen soft and + abdominal mass (right abdomen); no guarding and abdomen not rigid Musculoskeletal: Head/Neck/Chest: normocephalic and head atraumatic Skin: no rashes, warm and dry Neurologic: moves all extremities and awake Psychiatric: A+Ox3, euthymic affect Results & Data Laboratory Results Laboratory Results - last 24 hr 12/05/18 12/10/18 12/10/18 02:07 12:30 12:52 WBC RBC Hgb Hct MCV MCH MCHC RDW Std Deviation RDW Coeff of Xiomara Plt Count MPV Immature Gran % (Auto) Neut % (Auto) Lymph % (Auto) [place] % (Auto) Eos % (Auto) Baso % (Auto) Immature Gran # (Auto) Neut # (Auto) Lymph # (Auto) [place] # (Auto) Eos # (Auto) Baso # (Auto) PT INR Sodium 139 Potassium 3.7 Chloride 109 H Carbon Dioxide 19 L Anion Gap 11.0 BUN 73 H Creatinine 4.97 H* Est Cr Clr Drug Dosing 14.7 Est GFR ( Amer) 12.4 Est GFR (Non-Af Amer) 10.7 BUN/Creatinine Ratio 14.8 Glucose 125 H Uric Acid 5.3 Calcium 9.8 Phosphorus Magnesium 1.9 Total Bilirubin AST ALT Alkaline Phosphatase Total Creatine Kinase Total Protein Albumin Globulin Albumin/Globulin Ratio Tumor Marker AFP 1.7 PTH Related Protein 41 H Urine Color Yellow Urine Appearance Clear Urine pH 5.5 Ur Specific [place] 1.013 Urine Protein 1+ H Urine Glucose (UA) Negative Urine Ketones Negative Urine Blood Trace H Urine Nitrite Negative Urine Bilirubin Negative Urine Urobilinogen Negative Ur Leukocyte Esterase Negative Urine WBC (Auto) 1-5 Urine RBC (Auto) 0-4 U Hyaline Cast (Auto) 0 U Epithel Cells (Auto) 0-5 Urine Bacteria (Auto) Negative 12/11/18 12/11/18 12/11/18 06:32 06:32 06:32 WBC 8.52 RBC 3.24 L Hgb 9.1 L Hct 28.2 L MCV 87.0 MCH 28.1 MCHC 32.3 RDW Std Deviation 49.1 H RDW Coeff of [place] 15.4 H Plt Count 288 MPV 9.1 Immature Gran % (Auto) 0.7 Neut % (Auto) 76.2 Lymph % (Auto) 4.9 [place] % (Auto) 12.0 Eos % (Auto) 5.8 Baso % (Auto) 0.4 Immature Gran # (Auto) 0.06 H Neut # (Auto) 6.50 Lymph # (Auto) 0.42 L [place] # (Auto) 1.02 H Eos # (Auto) 0.49 Baso # (Auto) 0.03 PT 11.3 INR 1.1 Sodium 139 Potassium 4.0 Chloride 110 H Carbon Dioxide 19 L Anion Gap 10.0 BUN 67 H Creatinine 4.88 H* Est Cr Clr Drug Dosing 14.8 Est GFR ( Amer) 12.7 Est GFR (Non-Af Amer) 10.9 BUN/Creatinine Ratio 13.7 Glucose 95 Uric Acid Calcium 9.7 Phosphorus 4.0 Magnesium 2.1 Total Bilirubin 0.5 AST 40 H ALT 26 Alkaline Phosphatase 103 Total Creatine Kinase 69 Total Protein 6.6 Albumin 2.7 L Globulin 3.9 Albumin/Globulin Ratio 0.7 L Tumor Marker AFP PTH Related Protein Urine Color Urine Appearance Urine pH Ur Specific [place] Urine Protein Urine Glucose (UA) Urine Ketones Urine Blood Urine Nitrite Urine Bilirubin Urine Urobilinogen Ur Leukocyte Esterase Urine WBC (Auto) Urine RBC (Auto) U Hyaline Cast (Auto) U Epithel Cells (Auto) Urine Bacteria (Auto) 12/11/18 06:32 WBC RBC Hgb Hct MCV MCH MCHC RDW Std Deviation RDW Coeff of [place] Plt Count MPV Immature Gran % (Auto) Neut % (Auto) Lymph % (Auto) [place] % (Auto) Eos % (Auto) Baso % (Auto) Immature Gran # (Auto) Neut # (Auto) Lymph # (Auto) [place] # (Auto) Eos # (Auto) Baso # (Auto) PT INR Sodium Potassium Chloride Carbon Dioxide Anion Gap BUN Creatinine Est Cr Clr Drug Dosing Est GFR ( Amer) Est GFR (Non-Af Amer) BUN/Creatinine Ratio Glucose Uric Acid Calcium Phosphorus Magnesium Total Bilirubin AST ALT Alkaline Phosphatase Total Creatine Kinase Cancelled Total Protein Albumin Globulin Albumin/Globulin Ratio Tumor Marker AFP PTH Related Protein Urine Color Urine Appearance Urine pH Ur Specific [place] Urine Protein Urine Glucose (UA) Urine Ketones Urine Blood Urine Nitrite Urine Bilirubin Urine Urobilinogen Ur Leukocyte Esterase Urine WBC (Auto) Urine RBC (Auto) U Hyaline Cast (Auto) U Epithel Cells (Auto) Urine Bacteria (Auto) Medications Administered Atorvastatin Calcium (Lipitor) 80 mg PO HS [facility] Stop: 01/04/19 20:59 Last Admin: 12/10/18 20:32 Dose: 80 mg Documented by: [id number] Admin: 12/09/18 20:24 Dose: 80 mg Documented by: [id number] Admin: 12/08/18 21:23 Dose: 80 mg Documented by: [id number] Admin: 12/07/18 21:22 Dose: 80 mg Documented by: [id number] Admin: 12/06/18 20:04 Dose: 80 mg Documented by: [id number] Admin: 12/05/18 20:52 Dose: 80 mg Documented by: [id number] Admin: 12/05/18 01:44 Dose: 80 mg Documented by: [id number] Citalopram Hydrobromide (Celexa) 20 mg PO DAILY [facility] Stop: 01/04/19 08:59 Last Admin: 12/10/18 08:09 Dose: 20 mg Documented by: [id number] Admin: 12/09/18 08:45 Dose: 20 mg Documented by: [id number] Admin: 12/08/18 09:12 Dose: 20 mg Documented by: [id number] Admin: 12/07/18 10:52 Dose: 20 mg Documented by: [id number] Admin: 12/06/18 08:45 Dose: 20 mg Documented by: [id number] Admin: 12/05/18 08:10 Dose: 20 mg Documented by: [id number] Ferrous Sulfate (Feosol) 325 mg PO DAILY [facility] Stop: 01/04/19 08:59 Last Admin: 12/10/18 08:10 Dose: 325 mg Documented by: [id number] Admin: 12/09/18 08:45 Dose: 325 mg Documented by: [id number] Admin: 12/08/18 09:12 Dose: 325 mg Documented by: [id number] Admin: 12/07/18 07:59 Dose: 325 mg Documented by: [id number] Admin: 12/06/18 08:45 Dose: 325 mg Documented by: [id number] Admin: 12/05/18 08:10 Dose: 325 mg Documented by: [id number] Finasteride (Proscar) 5 mg PO DAILY [facility] Stop: 01/04/19 08:59 Last Admin: 12/10/18 08:10 Dose: 5 mg Documented by: [id number] Admin: 12/09/18 08:45 Dose: 5 mg Documented by: [id number] Admin: 12/08/18 09:12 Dose: 5 mg Documented by: [id number] Admin: 12/07/18 07:59 Dose: 5 mg Documented by: [id number] Admin: 12/06/18 08:45 Dose: 5 mg Documented by: [id number] Admin: 12/05/18 08:03 Dose: Not Given Documented by: [id number] Admin: 12/05/18 01:44 Dose: 5 mg Documented by: [id number] Iron Sucrose 200 mg/ Sodium (Chloride) 110 mls @ 220 mls/hr IV Q2D@1100 [facility] Stop: 12/16/18 11:29 Last Infusion: 12/10/18 12:19 Dose: 0 mls/hr Documented by: [id number] Admin: 12/10/18 11:35 Dose: 220 mls/hr Documented by: [id number] Infusion: 12/08/18 11:53 Dose: 0 mls/hr Documented by: [id number] Admin: 12/08/18 11:12 Dose: 220 mls/hr Documented by: [id number] Ondansetron HCl (Zofran) 4 mg IV Q6H PRN PRN Reason: Nausea Stop: 12/11/18 12:29 Last Admin: 12/06/18 13:01 Dose: 4 mg Documented by: [id number] Pantoprazole Sodium (Protonix) 40 mg PO QAM [facility] Stop: 01/05/19 13:29 Last Admin: 12/10/18 08:09 Dose: 40 mg Documented by: [id number] Admin: 12/09/18 08:45 Dose: 40 mg Documented by: [id number] Admin: 12/08/18 09:13 Dose: 40 mg Documented by: [id number] Admin: 12/07/18 07:59 Dose: 40 mg Documented by: [id number] Admin: 12/06/18 16:07 Dose: 40 mg Documented by: [id number] Polyethylene Glycol (Miralax Powder Packet) 17 gm PO BID PRN PRN Reason: Constipation Stop: 01/06/19 08:58 Last Admin: 12/09/18 19:15 Dose: 17 gm Documented by: [id number] Senna/Docusate Sodium ([facility]okot S) [facility] [place] Stop: 01/07/19 14:59 Last Admin: 12/10/18 08:09 Dose: 1 tab Documented by: [id number] Admin: 12/09/18 08:45 Dose: 1 tab Documented by: [id number] Admin: 12/08/18 17:18 Dose: 1 tab Documented by: [id number] Sodium Bicarbonate (Sodium Bicarbonate) 1,300 mg PO BID [facility] Stop: 01/08/19 20:59 Last Admin: 12/10/18 20:33 Dose: 1,300 mg Documented by: [id number] Admin: 12/10/18 08:09 Dose: 1,300 mg Documented by: [id number] Admin: 12/09/18 20:25 Dose: 1,300 mg Documented by: [id number] Tramadol HCl (Ultram) 50 mg PO Q12H PRN PRN Reason: Pain Stop: 01/08/19 09:19 Last Admin: 12/10/18 07:14 Dose: 50 mg Documented by: [id number]
[2018-12-11] MEDS: DOCUSATE SODIUM/SENNA 50/8.6MG TAB PO SCH (11:35)
[2018-12-11] MEDS: FERROUS SULFATE 325 MG TAB PO SCH (11:35)
[2018-12-11] MEDS: PANTOprazole 40 MG TAB PO SCH (11:35)
[2018-12-11] MEDS: SODIUM BICARBONATE 650 MG TAB PO SCH (11:35)
[2018-12-11] MEDS: CITALOPRAM 20 MG TAB PO SCH (11:35)
[2018-12-11] MEDS: FINASTERIDE 5 MG TAB PO SCH (11:36)
--- NOTE | 2018-12-12 16:15 | Discharge Summary ---
Date of Service December 11, 2018 Admission HPI Per Admitting Provider Mr. De La Cruz is a 73 year old male with a past medical history including chronic kidney disease stage IV, coronary artery disease s/p stent placement x1, hypertension, peripheral vascular disease s/p balloon angioplasty and stent placement, hypercholesterolemia, GERD, history of obstructive sleep apnea who presents to the emergency department with a 3-day history of right-sided abdominal pain. He states the pain is constant, however worse with taking a deep breath in or w/movement. He states the pain is unrelated to the consumption of food, however he has had decreased appetite of late. Currently, he rates his pain as a 2 out of 10. He states he has been moving his bowels normally, and denies diarrhea or the presence of blood in his stools. His family notes that his abdomen has been more bloated of late, and that he has also had a 24 pound unintentional weight loss. With regards to his chronic kidney disease, this is presumed to be secondary to microvascular disease and he follows with Dr. Kearns. His baseline creatinine is reportedly 2.3. He has had a renal ultrasound in the past which revealed normal-sized kidneys with small bilateral simple cysts. Of note, the family states that he has been more tired over the past 5-6 years. He has been persistently anemic, with his hemoglobin level ranging from 10-12, with a normal MCV. He has undergone extensive endoscopic evaluation to look for sources of GI bleeding, with none identified. He has been receiving iron injections and also saw Dr. Flores for his history of anemia, who felt that this was unrelated to low iron levels, but rather related to anemia of chronic kidney disease. Of note, Mr. Rojas is a prior smoker, and does chew tobacco. He denies use of alcohol or recreational drugs. Admission Exam Per Admitting Provider Constitutional: well developed, well nourished, + well hydrated, + obese, cooperative and comfortable Eyes: PERRL, conjunctivae normal, anicteric sclerae Respiratory: normal respiratory effort, lungs clear to auscultation Cardiovascular: RRR, no murmur, no edema Vessels: radial pulses present Extremities: normal capillary refill; no calf tenderness and no pedal edema longitudinal scar over medial aspect of right calf Gastrointestinal (Abdomen): Inspection/Auscultation: + abdomen distended Percussion/Palpation: + abdomen tender (tender over right side of abdomen. Iyer's negative. ) and abdomen soft; no guarding and abdomen not rigid No flank tenderness Skin: no rashes, warm and dry Psychiatric: A+Ox3, euthymic affect Principal Diagnosis Kidney injury; liver masses Discharge Exam Constitutional WD/WN, vitals as above Eyes + anicteric sclerae Neck normal visual inspection and trachea midline Respiratory normal respiratory effort, lungs clear to auscultation Cardiovascular RRR, no murmur, no edema Gastrointestinal (Abdomen) Percussion/Palpation: + abdomen tender (right abdomen), abdomen soft and + abdominal mass (right abdomen); no guarding and abdomen not rigid Musculoskeletal Head/Neck/Chest: normocephalic and head atraumatic Skin no rashes, warm and dry Neurologic moves all extremities and awake Psychiatric A+Ox3, euthymic affect Discharge Data Allergies Allergy/AdvReac Type Severity Reaction Status Date / Time No Known Drug Allergies Allergy Unknown NKDA Verified 12/04/18 23:30 Consultations 12/04/18 22:22 ED Decision to Admit Stat 12/05/18 01:13 Consult Hematology Routine Consult Nephrology Routine 12/10/18 14:26 Consult Radiology Routine Ordered Studies 12/04/18 20:43 US gallbladder Stat 12/05/18 01:13 MR abdomen wo con Routine US duplex renal artery Routine 12/06/18 08:32 US scrotum/testicle Routine 12/11/18 07:00 US FNA w/img 1st lesion Routine 12/11/18 10:18 US biopsy liver Routine US guide needle placement Routine Hospital Course (1) Acute kidney injury: Mr. De La Cruz is a 73 year old male with a past medical history including chronic kidney disease stage IV, coronary artery disease s/p stent placement x1, hypertension, peripheral vascular disease s/p balloon angioplasty and stent placement, hypercholesterolemia, GERD, history of obstructive sleep apnea who presents to the emergency department with a 3-day history of right-sided abdominal pain. In the ED, patient found to have critical labs, including a creatinine level of 5.95 and a calcium level of 12.9. He was also found to have 12 cm and 2.2 cm hepatic masses. -on med/surg from previous tele -creatinine level was 5.95 on admission - significantly worse than baseline (2.3) and from labs drawn in October (3.28) -5.95->5.90->5.35->4.96->4.64 -> 4.78 --> 5.13 --> 4.97 --> 4.89 today trended down. -Patient with history of chronic kidney disease stage IV presumed related to microvascular disease -KATHY felt to be pre-renal from diuretic effect from hypercalcemia. -Renal artery dopplers = Portions of the bilateral renal arteries obscured. Therefore, this study is technically nondiagnostic but no elevated velocities within visualized portions of the renal arteries; Moderate bilateral renal atrophy and increased echogenicity -Nephrology consulted, and no indication for dialysis. Will monitor electrolyte for abnormalities. - IV fluids discontinued. - continue to hold ACEI/ ARB, calcium, vitamin-D and avoid all calcium and vitamin-D supplement - Phos was elevated at admit 7.6 -> 5.3 -> 4.6 -> 4.2 -> 3.8 -> 3.6 --> 4.0 today - Mag 2.3 (12/06/18) -> 2.1 -> 2.0 -> 1.9 -> 1.8 -> 2.1 today, will continue to monitor - Nephro recs reviewed including holding IVF, ACEI/ARB, calcium and Vit D supplements. Continue venofer. Increase NaHCO3 to 1300mg BID. - Unsure of etiology of sustained elevated Creatinine from baseline. His potassium is normal and he is urinating. Yesterday checked repeat BMP this afternoon with Uric acid to rule out Tumor Lysis Syndrome, which was normal. - A U/A performed yesterday was positive for Protein +1 and Trace Blood - CK ordered this morning to rule out rhabdomyolysis from potential underlying cancer as urine had trace blood but no RBCs was normal. - resulted and was negative by time of discharge. Code status: FULL DVT Prophylaxis: SCDs Disposition: admit to telemetry (2) Liver mass: -Dc'd asprin/plavix day 02/09 -suspicion is for hepatocellular carcinoma vs. choleangiocarcinoma - alpha protein resulted and was within normal limits 1.7, marker for Hepatolcellular carcinoma. -MRI abdomen w/out contrast = 11 cm lobulated right hepatic lobe mass highly suggestive of malignancy; Two additional hepatic lesions which measure up to 2 cm which are suboptimally assessed on this unenhanced exam but worrisome for satellite lesions/metastases; Fatty infiltration of the liver; No abdominal lymphadenopathy. -CEA negative -heme/onc consulted previously -PTH ordered and was normal -Did not tolerate Morphine, discontinued Morphine and ordered Oxycodone 5mg q4h PRN which patient did not tolerate. Currently on Tramadol but will need renal dosing of drug, Tramadol 50mg q12 ordered and tolerating it well. Radiology performed U/S guided liver biopsy this morning. Was NPO last night at midnight. - case discussed with nephro, and if tolerates lunch, can discharge home. Low risk for complications s/p biopsy and if there are complications, usually seen within first couple hours. (3) Hypercalcemia: -calcium level 12.9 on admission -suspect secondary to possible underlying malignancy -Calcitonin 4units/kg dose SQ x2 night of admission, and Zoledronic Acid 4mg IV x1 given 12/05 -parathyroid hormone related peptide pending - On admit 12.9 -> 12.0 -> 11.4 -> 10.0 -> 9.6 -> 9.6 -> 9.5 --> 9.7 today. Stable. - will need outpatient monitoring (4) Anemia: -Hgb generally between 10 and 11, 8.6 on admission -Likely related to chronic kidney disease given slow progression (last Hgb in October was 9.4) and negative prior endoscopic workup. -Currently on Venofir IV iron with plan for 5 total bags of treatment. -Also received Epogen 4000 units on 12/07 (3 days ago) - On admit 8.6 -> 8.6 -> 8.2-> 8.2 -> 8.7 -> 8.2 -> 7.9 -> 7.9 -> 8.4 --> 8.52 (improved) today. Stable without signs of acute bleed. Will need outpatient monitoring (5) Hypertension: -Has had some elevated systolic values 137/65 this morning -held home losartan given KATHY (6) Coronary artery disease: -dc'd asprin plavix for bx (day 5/5) (7) Peripheral vascular disease: -dc'd asprin plavix for bx (day 5) (8) Chronic renal disease, stage IV: (9) MAEGAN (obstructive sleep apnea): -continue with CPAP, however patient does not routinely wear it (10) Hypercholesteremia: -continue home atorvastatin (11) Neuropathy: -hold home gabapentin in the setting of worsening kidney function (12) GERD (gastroesophageal reflux disease): Scheduled Protonix 40mg PO qAM (13) Nausea and vomiting: Zofran 4mg IV q6hr ordered. Has resolved by time of discharge. (14) Depression: -continue citalopram (15) Scrotal swelling: patient states is non-acute, maybe been present for 1 month, asymptomatic. U/S scroum this morning IMPRESSION: 1. Prominent collections in the right hemiscrotum, not consistent with hydroceles, suspected to represent spermatoceles. The larger of the two collections has a calculated volume of 170 mL. 2. Partially cystic partially solid subcentimeter lesion in the left testis. This is indeterminate. Neoplastic process is considered unlikely but difficult to exclude. Urologic consultation with follow-up ultrasound in one to 2 months recommended. 3. Left varicocele. 4. No testicular torsion. Nurse Navigator contacted for outpatient Urology follow up. Briefs for support, discuss not to wear boxers as lack of scrotal support could cause pain. Unsure of etiology (16) Runny nose: influenza swab ordered this morning and is pending. Total Time Total Time Spent Total Time Spent (In Minutes): 35 Total Time Includes: Examination of the Patient, Discharge Planning, Medication Reconciliation and Communication With Other Providers Discharge Plan Discharge Items Patient Disposition: Home - Self-Care Reason For Visit: RENAL FAILURE, HYPERCALCEMIA, LIVER MASS Discharge Diagnosis: Kidney injury, Liver masses Discharge Goals: Diagnostic testing Activity: Resume your previous activity Lifting: No more than 10 pounds Bathing: No limitations Exercise/Sports: Rest today Driving/Machine Use: No limitations Non-emergency contact: Primary Care Provider Call non-emergency contact if: your pain is concerning for you Follow-up/Referrals: Jasper Cox MD [Physician] - 01/15/19 10:30 am (Please, follow up at [facility] Office with Dr. Cox on SundayJanuary 15 at 10:30 am. *This office is located at [address] [place] [address] in [place]. If you need to change this appointment, call the office at [phone].) Ry Osullivan Jr, MD, FACC [Physician] - 12/20/18 11:45 am (Please, follow up with Dr. Osullivan (spray unit feeder) in the [facility] on SundayDecember 20 at 11:45 am. *If you need to change this appointment, call the office at [phone].) Reanna Kearns MD [Physician] - 12/20/18 12:30 pm (Please, follow up with Dr. Redmond (director outcomes) in the [facility] on SundayDecember 20 at 12:30 pm. *If you need to change this appointment, call the office at [phone].) Alireza Brunner DO [Physician] - (Please call Dr. Brunner's office next week for a follow up on the results of the liver biopsy that was done on 12/11/2018.) Chris Flores [Physician] - (Please, follow up with Dr. Chris Flores at [facility]. His nurse will call you with the appointment details. *This office is located at the rear of this [facility] in the [facility]. You will park behind the hospital in [address]. If you have any questions, call the office at [phone].) Vinod Pang [Primary Care Provider] - (Please, follow up with Dr. Vinod Pang. The nurse from this office will call you schedule this appointment. *If you have any questions, call the office at [phone].) Diet: Dialysis Renal Addtl Provider Instructions: Mr. De La Cruz, you were admitted for kidney problems and right-sided pain due to the liver mass. Your kidney function improved, but still has a ways to go before it would be back to baseline. Please follow up with the kidney doctors next week to have the kidney function checked and to determine what the next steps might be for your kidney care. Please hold your aspirin and Plavix until next week. Restart both medications on Sunday which should be plenty of time after your biopsy to avoid any bleeding issues. For your diet, please eat foods low in potassium. Avoid: * Melons such as cantaloupe and honeydew (watermelon is okay) * Bananas * Oranges and orange juice * Grapefruit juice * Prune juice * Tomatoes, tomato sauce, tomato juice * Dried beans all kinds * Pumpkin * Winter squash * Cooked greens, spinach, kale, collards, [place] Chard Dairy foods are the major source of phosphorus in the diet, so limit milk to 1 cup per day. If you use yogurt or cheese instead of liquid milk only one container OR 1 ounce a day! Please come back to the hospital with any increasing pain, shortness of breath, issues with urination, or other concerning symptoms. LIVER BIOPSY ACTIVITY RECOMMENDATIONS: * Rest today. * Resume regular activity in one day. MEDICATIONS: * May take Tylenol or Ibuprofen as needed for pain. DIET: * Resume previous diet. SPECIAL CARE INSTRUCTIONS: Call your doctor if: * Temperature above 101 degrees F. * Pain not relieved by pain medicine ordered. * Increased drainage or redness from incision. * Notify your doctor with any questions or concerns. Call your doctor or go to the nearest Emergency Department if you experience: * Increased chest pain or shortness of breath. FOLLOW UP VISIT: Follow-up with Referring Physician as scheduled. Prescriptions: New tramadol 50 mg Tablet 50 mg PO Q12H PRN (Reason: pain) Qty: 30 RF: 0 sodium bicarbonate 650 mg Tablet 1,300 mg PO BID Qty: 120 RF: 0 Continued atorvastatin [Lipitor] 80 mg Tablet 80 mg PO HS Qty: 0 RF: 0 ferrous sulfate 325 mg (65 mg iron) Tablet 325 mg PO DAILY Qty: 0 RF: 0 pantoprazole [Protonix] 40 mg Tablet,Delayed Release (Dr/Ec) 40 mg PO DAILY PRN (Reason: Acid Reflux) Qty: 0 RF: 0 citalopram 40 mg Tablet 20 mg PO DAILY Qty: 0 RF: 3 isosorbide mononitrate 60 mg Tablet Extended Release 24 Hr 60 mg PO QAM Qty: 0 RF: 0 diltiazem HCl 240 mg Tablet Extended Release 24 Hr 240 mg PO DAILY Qty: 0 RF: 3 gabapentin 300 mg capsule 300 mg PO BID RF: 0 finasteride 5 mg tablet 5 mg PO DAILY RF: 0 losartan 50 mg tablet 50 mg PO DAILY RF: 0 Discontinued aspirin 81 mg Tablet,Delayed Release (Dr/Ec) 81 mg PO DAILY Qty: 0 RF: 0 calcium carbonate-vitamin D3 [Os-Naseem 500 + D3] 500 mg(1,250mg) -200 unit Tablet 1 tab PO DAILY Qty: 0 RF: 0 clopidogrel [Plavix] 75 mg Tablet 75 mg PO DAILY Qty: 0 RF: 0 hydralazine 50 mg Tablet 50 mg PO TID Qty: 0 RF: 0 cholecalciferol (vitamin D3) 3,000 unit Tablet 3,000 unit PO DAILY Qty: 0 RF: 0 Stand-Alone Forms: Call Back Authorization, [facility] Discharge Orders: Discharge Order (Routine); Ordered 12/11/18 Ordered By: Vasiliy Perdomo Admission Data Admit Date/Time: 12/04/18 23:55 Attending Provider: Quique Gallagher Admit Provider: Aubrie Robledo Primary Care Provider: Vinod Pang Other Providers: Quique Gallagher ; Prudencio Lee ; Alireza Brunner V ; Fermín Quick ; Venkat Menjivar ; Nini Stone ; Reanna Kearns Kevin C. ; Debra Bautista ; Fely Espinoza ; Virgil Pinzon ; Usama Villarreal ; Hari Vance ; Ken Barney ; Parish Zelaya ; Nickolas Reid ; Vasiliy Perdomo ; Funmilayo James ; Cheo Bullard ; Martin Ibarra ; Lester Mathews ; Suleiman Adams ; Parish Kimbrough ; Dionte Rodriguez ; Marcel Falcon ; Andres Melvin ; Sam Gomez ; Parker Escudero ; Ant Hart ; Rob Siddiqi Service: Medical Other Interventions: Discharge Summary Assessment (RN) Last Done: 12/11/18 12:36 DC Date/Time DO NOT enter until pt leaves facility: 12/11/18 16:24 Supervising Physician Co-Signing Physician Notes Patient seen and examined with the resident. Agree with history, physical exam, assessment and plan with the following updates/corrections: 73yo with hx of CKD, CAD and PVD, MAEGAN who was admitted with KATHY on CKD and new hepatic mass. 1) KATHY on CKD - - Cr remained around 4.8-5.0. Checked uric acid which was normal, so tumor lysis syndrome doesn't fit. Discussed with nephrology who feel this might be his new baseline after hypercalcemia and dehydration. - Will follow up outpatient next week with nephrology and do dialysis training. 2) Hepatic mass - Likely HCC vs. cholangiocarcinoma. - Holding ASA/Plavix until he is seen by a physician next week to avoid bleeding from biopsy site - Tramadol for pain - Outpatient follow up with oncology 3) Anemia - Chronic and stable. Seen by oncology with thought that is is anemia of chronic disease and renal disease. - Received epo this admission. - On IV iron daily x 5 doses - Continued oral iron supplement - Hgb stable/increasing on discharge. Was 9.1 on discharge. 4) Hypercalcemia - S/p calcitonin and bisphos. Normalized. Monitor.
== END 2018-12-11 16:24 | disposition home or self-care (01) | DRG 674 ==
LOC: ED 19:55 → 2S 23:55 → SUATTDRO 23:55 → 2S 12-05 00:10 → 4E 12-10 09:57

== ENCOUNTER 2021-02-13 10:50 | Inpatient (IN) ==
[2021-02-13] MEDS ORDERED: SODIUM CHLORIDE 0.9% 500 ML IV ONE (11:24)
[2021-02-13] MEDS ORDERED: dexAMETHasone**PF** 10 MG/ML VIAL IV ONE (11:24)
[2021-02-13] MEDS ORDERED: IPRATROPIUM BROMIDE/ALBUTEROL respimat INH INH STA (11:27)
[2021-02-13] MEDS ORDERED: guaiFENesin 600 MG TABCR PO STA (11:28)
[2021-02-13] MEDS ORDERED: ACETAMINOPHEN 1,000 MG/100 ML VIAL IV STA (11:28)
--- NOTE | 2021-02-13 11:41 | Emergency Department Note ---
Impression & Plan Pneumonia due to COVID-19 virus, Hypoxia, CKD (chronic kidney disease), Gastroenteritis due to 2019-nCoV ED Provider Note NAME: MEG FINK AGE: 76 SEX: M ARRIVES VIA: Walk-In INFORMANT: Patient, ED PROVIDER(S): Guy Poon MD CHIEF COMPLAINT: Cough, sob, fever, diarrha PLAN: Disposition: Admit MEDICAL DECISION MAKING: The patient is a pleasant 76-year-old gentleman with a past medical history of sleep apnea, CKD, B-cell lymphoma in remission, hypertension who presents to the emergency department with cough, congestion, shortness of breath with minimal exertion with persistent diarrhea evolving over the past 4 days with fevers. The patient denies any known COVID-19 exposures. He has not been vaccinated. He denies chest pain or vomiting. On arrival the patient is uncomfortable, fatigued appearing but no acute di stress, afebrile, HR 100s and otherwise with stable vital signs. O2 saturation will go down to 89% on room air and so he was placed on 2 L nasal cannula. He appears clinically dry. He is mildly dyspneic but without significant work of breathing. Lungs with scant intermittent wheeze and is diminished at the bases. EKG without overt acute ischemia. CXR with bibasilar airspace opacities which likely represents Covd-19 PNA given Covid-19 PCR was positive. WBC with lymphopenia to 0.39. Platelets wnl. H/H improved from prior. Chemistry without acidosis. Cr. 2.98 similar to prior range of values in the setting of CKD. BUN/Cr > 20 c/w prerenal component. Electrolytes without significant abnormal ity. LFTs without significant abnormality. Troponin 0.029, wnl. BNP 4700 without prior for comparison in the setting of CKD. UA without convincing evidence of infection. Influenza and RSV PCR negative. Upon re-evaluation the patient did report mild improvement after gentle IVF hydration, apap, guaifenesin, dexamethasone, combivent. However, given hypoxia in the setting of comorbidities, agrees with plan for admission. Case was d/w Dr. Gagnon, [facility] [place] who will evaluate the patient for admission. Triage Nursing notes reviewed and agree them. Prior medical records reviewed Vital Signs: reviewed and remarkable for Hypoxia and tachycardia. Differential diagnosis: Reactive airway disease, pneumonia, pneumothorax, COPD, CHF, infections, cardiac ischemia, pulmonary embolism, musculoskeletal, gastrointestinal, as well as other pathologies. ER treatment provided: See below. Diagnostics interpreted by me: ECG: NSR, 91 bpm, no ectopy, nonspecific TWA, no overt ST elevation or depression. Cardiac Monitoring: An order for continuous cardiac monitoring was placed and demonstrated NSR, 91 bpm, no ectopy. Laboratory studies: See below Imaging studies: See below Consultation(s): Case was d/w Dr. Gagnon, [facility] [place] who will evaluate the patient for admission. HPI: The patient is a pleasant 76-year-old gentleman with a past medical history of sleep apnea, CKD, B-cell lymphoma in remission, hypertension who presents to the emergency department with cough, congestion, shortness of breath with minimal exertion with persistent diarrhea evolving over the past 4 days with fevers. The patient denies any known COVID-19 exposures. He has not been vaccinated. He denies chest pain or vomiting. ROS: See above HPI for pertinent positives & negatives. A total of 10 systems reviewed and were otherwise negative. PAST MEDICAL HISTORY:See Below PAST SURGICAL HISTORY:See Below FAMILY HISTORY:See Below SOCIAL HISTORY:See Below HOME MEDICATIONS:See Below ALLERGIES:See Below VITALS:See Below PHYSICAL EXAMINATION: GENERAL: Awake, alert, fatigued-appearing, in no distress HENT: Normocephalic, atraumatic. Oropharynx with dry mucous membranes and otherwise unremarkable. . EYES: Normal conjunctiva. Sclera non-icteric. NECK: Supple. No nuchal rigidity. FROM. No JVD. RESPIRATORY: Scant intermittent wheeze and is diminished at the bases. Mildly dyspneic but without significant work of breathing. CARDIAC: Regular rate, normal rhythm. Extremities warm and well perfused. Pulses equal. ABDOMEN: Soft, non-distended. No tenderness to palpation. No rebound or guarding. No masses. RECTAL: Deferred. MUSCULOSKELETAL: Chest examination reveals no tenderness. The back is symmetrical on inspection without obvious abnormality. There is no CVA tenderness to palpation. No joint edema. LOWER EXTREMITIES: Calves are equal size bilaterally and non-tender. No edema. No discoloration. NEURO: Normal sensorium. No sensory or motor deficits noted. SKIN: No rash or jaundice noted. 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 Chronic back pain Chronic renal disease, stage IV Coronary artery disease Deep vein thrombosis Deep vein thrombosis ~ Depression Hearing deficit Hemodialysis patient LAST DIAYLSIS FEBRUARY 11, 2019. NEPHROLOGY HAS STOPPED DIAYLSIS FOR THE TIME. Hyperkalemia Hypertension Liver mass Metabolic acidosis On anticoagulant therapy Osteoarthritis Peripheral neuropathy Peripheral vascular disease Pneumonia 3 YRS AGO Secondary hyperparathyroidism of renal origin Sleep apnea NON-COMPLIANT Surgical History H/O vascular surgery REMOVAL OF DVT History of cardiac cath X1. 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 And Media Required: No Beliefs That Will Affect Care: None Current Living Situation: Spouse Other Information That Helps Us Care for You: No Feels Safe at Home: Yes Safety Concerns: Feels Safe At This Time Assistive Devices: Glasses and Hearing Aid - Left Allergies Allergies Allergy/AdvReac Type Severity Reaction Status Date / Time No Known Drug Allergies Allergy Unknown NKDA Verified 02/13/21 13:06 Home Meds Home Medications Medication Instructions Recorded Confirmed atorvastatin [Lipitor] 80 mg PO HS #0 tab 12/21/14 02/13/21 finasteride 5 mg PO QAM 12/04/18 02/13/21 aspirin [Aspir-81] 81 mg PO QPM 12/26/18 02/13/21 clopidogrel 75 mg PO QPM 12/26/18 02/13/21 diltiazem HCl 180 mg capsule,24 180 mg PO DAILY 11/13/19 02/13/21 hr,extended release Previous Rx's Medication Instructions Recorded ferrous sulfate 325 mg (65 mg 325 mg PO BID #180 tab 03/18/20 iron) tablet calcitriol 0.5 mcg capsule 0.5 mcg PO UD #45 cap 07/22/20 epoetin neptali 20,000 unit/mL 20,000 unit SUBCUT MONTHLY #1 ml 01/21/21 injection solution Results & Data (ED) Vital Signs Vital Signs - 24 hr 02/13/21 10:57 02/13/21 11:08 02/13/21 11:10 Temperature 36.5 C Temperature Source Temporal Artery Scan Pulse Rate 102 H 95 H 91 H Pulse Rate from SpO2 Sensor 95 H 94 H Respiratory Rate 20 19 16 Blood Pressure 106/56 L Blood Pressure Mean 72 Pulse Oximetry 93 92 93 Oxygen Delivery Method Room Air Nasal Cannula Nasal Cannula Oxygen Flow Rate 2 2 Sepsis Recent Fever Within 48 Hours No Sepsis New/Unexplained Change in Mental Status N/A Sepsis Action Taken by Nursing No Action Required 02/13/21 11:20 02/13/21 11:30 02/13/21 11:32 Temperature Temperature Source Pulse Rate 91 H 91 H Pulse Rate from SpO2 Sensor 91 H 91 H Respiratory Rate 27 H 22 Blood Pressure Blood Pressure Mean Pulse Oximetry 91 96 Oxygen Delivery Method Nasal Cannula Nasal Cannula Nasal Cannula Oxygen Flow Rate 2 2 2 Sepsis Recent Fever Within 48 Hours Sepsis New/Unexplained Change in Mental Status Sepsis Action Taken by Nursing 02/13/21 11:33 02/13/21 11:40 02/13/21 11:50 Temperature Temperature Source Pulse Rate 92 H 89 Pulse Rate from SpO2 Sensor 91 H 89 Respiratory Rate 26 H 31 H Blood Pressure Blood Pressure Mean Pulse Oximetry 96 93 Oxygen Delivery Method Nasal Cannula Nasal Cannula Nasal Cannula Oxygen Flow Rate 2 2 2 Sepsis Recent Fever Within 48 Hours Sepsis New/Unexplained Change in Mental Status Sepsis Action Taken by Nursing 02/13/21 12:00 02/13/21 12:10 02/13/21 12:20 Temperature Temperature Source Pulse Rate 90 83 90 Pulse Rate from SpO2 Sensor 90 83 88 Respiratory Rate 29 H 18 20 Blood Pressure Blood Pressure Mean Pulse Oximetry 94 93 95 Oxygen Delivery Method Nasal Cannula Nasal Cannula Nasal Cannula Oxygen Flow Rate 2 2 2 Sepsis Recent Fever Within 48 Hours Sepsis New/Unexplained Change in Mental Status Sepsis Action Taken by Nursing 02/13/21 12:30 02/13/21 12:40 02/13/21 12:50 Temperature Temperature Source Pulse Rate 93 H 90 92 H Pulse Rate from SpO2 Sensor 93 H 91 H 84 Respiratory Rate 29 H 23 22 Blood Pressure Blood Pressure Mean Pulse Oximetry 90 93 94 Oxygen Delivery Method Nasal Cannula Nasal Cannula Nasal Cannula Oxygen Flow Rate 2 2 2 Sepsis Recent Fever Within 48 Hours Sepsis New/Unexplained Change in Mental Status Sepsis Action Taken by Nursing 02/13/21 13:00 02/13/21 13:10 02/13/21 13:26 Temperature Temperature Source Pulse Rate 92 H 88 91 H Pulse Rate from SpO2 Sensor 91 H 85 85 Respiratory Rate 30 H 30 H 32 H Blood Pressure 121/61 Blood Pressure Mean 81 Pulse Oximetry 93 92 Oxygen Delivery Method Nasal Cannula Nasal Cannula Nasal Cannula Oxygen Flow Rate 2 2 2 Sepsis Recent Fever Within 48 Hours Sepsis New/Unexplained Change in Mental Status Sepsis Action Taken by Nursing 02/13/21 13:30 02/13/21 13:40 02/13/21 13:50 Temperature Temperature Source Pulse Rate 86 94 H 99 H Pulse Rate from SpO2 Sensor 81 92 H 84 Respiratory Rate 34 H 21 19 Blood Pressure 123/64 Blood Pressure Mean 83 Pulse Oximetry 93 92 94 Oxygen Delivery Method Nasal Cannula Nasal Cannula Nasal Cannula Oxygen Flow Rate 2 2 2 Sepsis Recent Fever Within 48 Hours Sepsis New/Unexplained Change in Mental Status Sepsis Action Taken by Nursing 02/13/21 14:00 02/13/21 14:01 02/13/21 14:10 Temperature Temperature Source Pulse Rate 87 87 85 Pulse Rate from SpO2 Sensor 85 90 86 Respiratory Rate 25 H 23 28 H Blood Pressure 115/53 L Blood Pressure Mean 73 Pulse Oximetry 96 94 96 Oxygen Delivery Method Nasal Cannula Nasal Cannula Nasal Cannula Oxygen Flow Rate 2 2 2 Sepsis Recent Fever Within 48 Hours Sepsis New/Unexplained Change in Mental Status Sepsis Action Taken by Nursing 02/13/21 14:20 02/13/21 14:30 02/13/21 14:31 Temperature Temperature Source Pulse Rate 81 82 80 Pulse Rate from SpO2 Sensor 79 82 82 Respiratory Rate 27 H 24 25 H Blood Pressure 131/63 Blood Pressure Mean 85 Pulse Oximetry 95 94 92 Oxygen Delivery Method Nasal Cannula Nasal Cannula Nasal Cannula Oxygen Flow Rate 2 2 2 Sepsis Recent Fever Within 48 Hours Sepsis New/Unexplained Change in Mental Status Sepsis Action Taken by Nursing Laboratory Data Attestation: I reviewed the patient's lab results. Result diagrams: 02/13/21 12:04 02/13/21 12:04 Lab Results 02/13/21 02/13/21 02/13/21 Range/Units 11:33 11:33 12:04 WBC (4.8-10.8) K/uL RBC (4.7-6.1) M/uL Hgb (14.0-18.0) g/dL Hct (42-52) % MCV (80-100) fL MCH (25-34) pg MCHC (32-36) g/dL RDW Std Deviation (36.4-46.3) fL RDW Coeff of [place] (11.5-14.5) % Plt Count (130-400) K/uL MPV (7.4-10.4) fL Immature Gran % (Auto) % Neut % (Auto) % Lymph % (Auto) % [place] % (Auto) % Eos % (Auto) % Baso % (Auto) % Neut # (Auto) (1.4-6.5) K/uL Lymph # (Auto) (1.2-3.4) K/uL [place] # (Auto) (0.11-0.59) K/uL Eos # (Auto) (0-0.5) K/uL Baso # (Auto) (0-0.2) K/uL Immature Gran # (Auto) (0.00-0.02) K/uL PT 10.1 (9.0-12.0) Seconds INR 1.0 (0.9-1.1) Sodium (136-145) mmol/L Potassium (3.5-5.1) mmol/L Chloride (98-107) mmol/L Carbon Dioxide (21-32) mmol/L Anion Gap (3-11) BUN (7-18) mg/dl Creatinine (0.6-1.4) mg/dl Est Cr Clr Drug Dosing ml/min Est GFR ( Amer) Est GFR (Non-Af Amer) BUN/Creatinine Ratio (10-20) Glucose (70-99) mg/dl Calcium (8.5-10.1) mg/dl Phosphorus (2.5-4.9) mg/dl Magnesium (1.8-2.4) mg/dl Total Bilirubin (0.2-1) mg/dl Direct Bilirubin (0-0.2) mg/dl AST (15-37) U/L ALT (12-78) U/L Alkaline Phosphatase (45-117) U/L Troponin I (0-0.045) ng/ml NT-Pro-B Natriuret Pep (0-1800) pg/ml Total Protein (6.4-8.2) gm/dl Albumin (3.4-5.0) gm/dl Globulin (2.5-4.0) gm/dl Albumin/Globulin Ratio (0.9-2) Lipase (73-393) U/L TSH (0.300-4.500) uIu/ml Urine Color Urine Appearance (Clear) Urine pH (4.5-7.5) Ur Specific [place] (1.000-1.030) Urine Protein (Negative) Urine Glucose (UA) (Negative) Urine Ketones (Negative) Urine Blood (Negative) Urine Nitrite (Negative) Urine Bilirubin (Negative) Urine Urobilinogen (Negative) Ur Leukocyte Esterase (Negative) Urine WBC (Auto) (0-5) /hpf Urine RBC (Auto) (0-4) /hpf U Hyaline Cast (Auto) (0-5) /lpf U Epithel Cells (Auto) (0-5) /lpf Urine Bacteria (Auto) (Negative) COVID-19 Eval Order CovFluRsv at [facility] SARS-CoV-2 (PCR) POSITIVE A* (Negative) Influenza Type A (PCR) Negative (Neg) Influenza Type B (PCR) Negative (Neg) RSV (RT-PCR) Negative (Neg) 02/13/21 02/13/21 02/13/21 Range/Units 12:04 12:04 12:54 WBC 5.53 (4.8-10.8) K/uL RBC 3.95 L (4.7-6.1) M/uL Hgb 12.1 L (14.0-18.0) g/dL Hct 36.6 L (42-52) % MCV 92.7 (80-100) fL MCH 30.6 (25-34) pg MCHC 33.1 (32-36) g/dL RDW Std Deviation 51.5 H (36.4-46.3) fL RDW Coeff of [place] 15.1 H (11.5-14.5) % Plt Count 215 (130-400) K/uL MPV 9.2 (7.4-10.4) fL Immature Gran % (Auto) 0.4 % Neut % (Auto) 84.4 % Lymph % (Auto) 7.1 % [place] % (Auto) 7.2 % Eos % (Auto) 0.9 % Baso % (Auto) 0.0 % Neut # (Auto) 4.67 (1.4-6.5) K/uL Lymph # (Auto) 0.39 L (1.2-3.4) K/uL [place] # (Auto) 0.40 (0.11-0.59) K/uL Eos # (Auto) 0.05 (0-0.5) K/uL Baso # (Auto) 0.00 (0-0.2) K/uL Immature Gran # (Auto) 0.02 (0.00-0.02) K/uL PT (9.0-12.0) Seconds INR (0.9-1.1) Sodium 137 (136-145) mmol/L Potassium 3.5 (3.5-5.1) mmol/L Chloride 104 (98-107) mmol/L Carbon Dioxide 23 (21-32) mmol/L Anion Gap 11.0 (3-11) BUN 63 H (7-18) mg/dl Creatinine 2.98 H (0.6-1.4) mg/dl Est Cr Clr Drug Dosing 23.1 ml/min Est GFR ( Amer) 22.5 Est GFR (Non-Af Amer) 19.4 BUN/Creatinine Ratio 21.2 H (10-20) Glucose 95 (70-99) mg/dl Calcium 8.9 (8.5-10.1) mg/dl Phosphorus 3.1 (2.5-4.9) mg/dl Magnesium 2.4 (1.8-2.4) mg/dl Total Bilirubin 0.3 (0.2-1) mg/dl Direct Bilirubin < 0.1 (0-0.2) mg/dl AST 28 (15-37) U/L ALT 30 (12-78) U/L Alkaline Phosphatase 49 (45-117) U/L Troponin I 0.029 (0-0.045) ng/ml NT-Pro-B Natriuret Pep 4740 H (0-1800) pg/ml Total Protein 6.7 (6.4-8.2) gm/dl Albumin 3.0 L (3.4-5.0) gm/dl Globulin 3.7 (2.5-4.0) gm/dl Albumin/Globulin Ratio 0.8 L (0.9-2) Lipase 361 (73-393) U/L TSH 0.873 (0.300-4.500) uIu/ml Urine Color Yellow Urine Appearance Clear (Clear) Urine pH 5.5 (4.5-7.5) Ur Specific [place] 1.014 (1.000-1.030) Urine Protein 1+ H (Negative) Urine Glucose (UA) Negative (Negative) Urine Ketones Negative (Negative) Urine Blood Trace H (Negative) Urine Nitrite Negative (Negative) Urine Bilirubin Negative (Negative) Urine Urobilinogen Negative (Negative) Ur Leukocyte Esterase Negative (Negative) Urine WBC (Auto) 1-5 (0-5) /hpf Urine RBC (Auto) 0-4 (0-4) /hpf U Hyaline Cast (Auto) 1-5 (0-5) /lpf U Epithel Cells (Auto) 10-20 H (0-5) /lpf Urine Bacteria (Auto) Negative (Negative) COVID-19 Eval Order SARS-CoV-2 (PCR) (Negative) Influenza Type A (PCR) (Neg) Influenza Type B (PCR) (Neg) RSV (RT-PCR) (Neg) Administered Medications Albuterol (Albuterol Hfa 8 Gm Inhaler) 2 puffs INH Q6R GAURI Stop: 02/14/21 13:01 Last Admin: 02/13/21 19:16 Dose: 2 puffs Documented by: [id number] Discontinued Medications Albuterol (Ipratropium [place]/Albuterol Respimat Inh) 2 puffs INH NOW STA Stop: 02/13/21 11:28 Last Admin: 02/13/21 11:56 Dose: 2 puffs Documented by: [id number] Dexamethasone Sodium Phosphate (DexamethasonePf 10 Mg/Ml Vial) 10 mg IV NOW ONE Stop: 02/13/21 11:25 Last Admin: 02/13/21 11:56 Dose: 10 mg Documented by: [id number] Guaifenesin (Guaifenesin 600 Mg Tabcr) 600 mg PO NOW STA Stop: 02/13/21 11:29 Last Admin: 02/13/21 11:56 Dose: 600 mg Documented by: [id number] Sodium Chloride (Nss) 500 mls @ 999 mls/hr IV .Q31M ONE Stop: 02/13/21 11:54 Last Infusion: 02/13/21 12:49 Dose: 0 mls/hr Documented by: [id number] Admin: 02/13/21 11:56 Dose: 999 mls/hr Documented by: [id number] Acetaminophen (Ofirmev) 1,000 mg in 100 mls @ 400 mls/hr IV NOW STA Stop: 02/13/21 11:42 Last Infusion: 02/13/21 12:16 Dose: 0 mls/hr Documented by: [id number] Admin: 02/13/21 11:56 Dose: 400 mls/hr Documented by: [id number] Pantoprazole Sodium (Pantoprazole 40 Mg Tab) 40 mg PO NOW GAURI Stop: 03/15/21 15:14 Last Admin: 02/13/21 15:45 Dose: 40 mg Documented by: [id number] Imaging Data Radiologist's Impression: Chest X-Ray 02/13/21 11:25 SINGLE VIEW CHEST CLINICAL HISTORY: Atypical chest pain. FINDINGS: An AP, portable, upright chest radiograph is compared to study dated 01/01/2019. Correlation is made with chest CT dated 12/21/2020. A left internal jugular central venous infusion port is unchanged in position. The heart is top normal for projection noting atherosclerotic calcification of the thoracic aorta. There is prominence of the pulmonary vasculature. Chronic interstitial thickening is similar to previous. There are bibasilar airspace opacities. No large pleural effusion or pneumothorax is seen. The skeletal structures are osteopenic. The bony thorax is grossly intact. IMPRESSION: 1. Bibasilar airspace opacities likely represent scarring/atelectasis. Clinical correlation will be required. 2. There is prominence of the pulmonary vasculature. Correlate clinically for evidence of fluid overload. ACT 112: Negative or not required by law. Electronically signed by: Cheo Bullard M.D. 02/13/2021 1:48 PM Discharge Plan Visit Data Chief Complaint: Shortness of Breath/Dyspnea Stated Complaint: SOB ED Provider: Guy Poon Discharge Problem: Pneumonia due to COVID-19 virus, Hypoxia, CKD (chronic kidney disease), Gastroenteritis due to 2019-nCoV Patient Disposition: Admitted As Inpatient Discharge Instructions Interventions: ED Discharge Assessment Last Done: 02/13/21 15:38 Discharge Problem: CKD (chronic kidney disease) Qualifiers: Chronic kidney disease stage: unspecified stage Qualified Code(s): N18.9 - Chronic kidney disease, unspecified
--- NOTE | 2021-02-13 11:59 | Electrocardiogram Report ---
Test Reason : Blood Pressure : / mmHG Vent. Rate : 091 BPM Atrial Rate : 091 BPM P-R Int : 172 ms QRS Dur : 086 ms QT Int : 378 ms P-R-T Axes : 040 017 084 degrees QTc Int : 464 ms Normal sinus rhythm Nonspecific T wave abnormality Abnormal ECG When compared with ECG of 01-JAN-2019 09:59, Vent. rate has increased BY 51 BPM Nonspecific T wave abnormality now evident in Lateral leads QT has lengthened Confirmed by Earl Manuel ([id number]) on 02/13/2021 11:59:01 AM Referred By: Confirmed By:Earl Manuel
[2021-02-13 12:29] LABS: Influenza A virus by PCR Negative (Neg); Influenza B virus by PCR Negative (Neg); RSV by PCR Negative (Neg)
[2021-02-13 12:49] LABS: Hematocrit (blood only) 36.6 % (42-52); Hemoglobin 12.1 g/dL (14.0-18.0); Mean Corpuscular Hemoglobin 30.6 pg (25-34); Mean Corpuscular Hgb Conc 33.1 g/dL (32-36); Mean Corpuscular Volume 92.7 fL (80-100); Mean Platelet Volume 9.2 fL (7.4-10.4); Platelet Count 215 K/uL (130-400); RDW Coefficient of Variation 15.1 % (11.5-14.5); RDW Standard Deviation 51.5 fL (36.4-46.3); Red Blood Count 3.95 M/uL (4.7-6.1); White Blood Count 5.53 K/uL (4.8-10.8)
[2021-02-13 13:05] LABS: Appearance Urine Clear (Clear); Bacteria Urine Automated Negative (Negative); Bilirubin Urine Negative (Negative); Blood Urine Trace (Negative); Color Urine Yellow; Glucose Urine UA Negative (Negative); Ketones Urine Negative (Negative); Leukocyte Esterase Urine Negative (Negative); Nitrite Urine Negative (Negative); Protein Urine 1+ (Negative); RBC Urine Automated 0-4 /hpf (0-4); Specific Gravity Urine 1.014 (1.000-1.030); Urobilinogen Urine Negative (Negative); pH Urine 5.5 (4.5-7.5)
[2021-02-13 13:12] LABS: Prothrombin Time 10.1 Seconds (9.0-12.0)
[2021-02-13 13:13] LABS: SARS CoV2 RNA(COVID-19) InHosp POSITIVE (Negative)
[2021-02-13 13:14] LABS: Alanine Aminotransferase 30 U/L (12-78); Aspartate Aminotransferase 28 U/L (15-37); BUN Creatinine Ratio 21.2 (10-20); Bilirubin Direct < 0.1 mg/dl (0-0.2); Blood Urea Nitrogen 63 mg/dl (7-18); Calcium 8.9 mg/dl (8.5-10.1); Carbon Dioxide 23 mmol/L (21-32); Chloride 104 mmol/L (98-107); Creatinine Clr Calc Pharmacy 23.1 ml/min; Eosinophils # (auto) 0.05 K/uL (0-0.5); Eosinophils % (auto) 0.9 %; Est GFR (African American) 22.5; Est GFR (Non-African American) 19.4; Glucose 95 mg/dl (70-99); Immature Granulocytes # (auto) 0.02 K/uL (0.00-0.02); Immature Granulocytes % (auto) 0.4 %; Lipase 361 U/L (73-393); Lymphocytes # (auto) 0.39 K/uL (1.2-3.4); Lymphocytes % (auto) 7.1 %; Magnesium 2.4 mg/dl (1.8-2.4); Monocytes % (auto) 7.2 %; Neutrophils # (auto) 4.67 K/uL (1.4-6.5); Neutrophils % (auto) 84.4 %; Potassium 3.5 mmol/L (3.5-5.1); Sodium 137 mmol/L (136-145)
[2021-02-13 13:22] LABS: Albumin Globulin Ratio 0.8 (0.9-2); Alkaline Phosphatase 49 U/L (45-117); Bilirubin,Total 0.3 mg/dl (0.2-1); Globulin 3.7 gm/dl (2.5-4.0); NT Pro B Type Natriuretic Pept 4740 pg/ml (0-1800); Phosphorus 3.1 mg/dl (2.5-4.9); Thyroid Stimulating Hormone 0.873 uIu/ml (0.300-4.500); Total Protein 6.7 gm/dl (6.4-8.2); Troponin I 0.029 ng/ml (0-0.045)
--- NOTE | 2021-02-13 13:50 | XRay Report ---
SINGLE VIEW CHEST CLINICAL HISTORY: Atypical chest pain. FINDINGS: An AP, portable, upright chest radiograph is compared to study dated 01/01/2019. Correlation is made with chest CT dated 12/21/2020. A left internal jugular central venous infusion port is uncha nged in position. The heart is top normal for projection noting atherosclerotic calcification of the thoracic aorta. There is prominence of the pulmonary vasculature. Chronic interstitial thickening is similar to previous. There are bibasilar airspace opacities. No large pleural effusion or pneumothora x is seen. The skeletal structures are osteopenic. The bony thorax is grossly intact. IMPRESSION: 1. Bibasilar airspace opacities likely represent scarring/atelectasis. Clinical correlation will be r equired. 2. There is prominence of the pulmonary vasculature. Correlate clinically for evidence of fluid overl oad. ACT 112: Negative or not required by law. Electronically signed by: Cheo Bullard M.D. 02/13/2021 1:48 PM
--- NOTE | 2021-02-13 15:04 | History & Physical Report ---
Date of Service February 13, 2021 Assessment & Plan (1) COVID-19: COVID-19 with hypoxia - Diarrhea- continue with oral hydration - Continue Decadron 6 mg IV - With his renal function, he is not a candidate for other therapy at this time - Heparin 5000 IV sub q TID- renal function limits options - Fibrinogen pending- can adjust therapeutics for risk - Oxygen titrate for work of breathing and hypoxia- NC, HFNC, NIPPV, Intubation - Patient with history of MAEGAN but reports he has never had CPAP - Self rotation therapy side, side, prone every 2 hours - Ambulate in room (2) CKD (chronic kidney disease) stage 4, GFR 15-29 ml/min: CKD-4 with KATHY type II- Baseline 2.3-2.5 - 500 ml bolus of 0.9% saline in the EMD- avoid further crystalloid as able - Encourage PO hydration to protect pulmonary status - Avoid nephrotoxic agents, if needed minimize exposure time. Renal dose all medicaitons - Receives Epogen monthly (3) HTN (hypertension): Patient reports he stopped his Cardizem because his blood pressure is never high - He currently is <110 MAP 72 - Evidence of some pulmonary congestion and increase BNP - Consider diuresing when Euvolemic - ECHO 2018 with hfPef- grade I diastolic dysfunction (4) Hypercholesteremia: Continue Atorvastatin 80 mg - No acute needs (5) Coronary artery disease: Unknown vessel - As above, BP control, statin - Continue aspirin and Plavix (6) PAD (peripheral artery disease): As above, patient was being worked of for evaluation of his right femoral to posterior tibial bypass graft for stenosis evaluation. - Cleared from nephrology in regards to his contrast need - Continue statin, ASA, Plavix as above - Continue with walking plan - Continues to dip tobacco, does not smoke (7) Anemia: Previously was on Iron supplementation and received Venofir before - Recent labs was with normal iron- and AOCD - Is normocytic and chromic today likely related to his CKD- He is unsure when his last dose of Epogen was. (8) B-cell lymphoma: Completed his R-CHOP and 6 cycles, with complete metabolic response per chart review. - He has not had a PECT/CT scan, was being followed with [address]- scans- (9) Pulmonary nodule: Screening CT scan done 12/21/20- 1. There is a single new 5 mm nodule within the base of the right lower lobe. The remaining scattered subcentimeter pulmonary nodules remain stable. This bears watching on future examinations. 2. Stable 1.5 cm branching tubular density within the left upper lobe which favors an impacted terminal bronchus. 3. No lymphadenopathy within the chest. (10) MAEGAN (obstructive sleep apnea): Not on therapy at home and no ABG or pulmonary studies to review - Consider CPAP if needed at night for hypoxia (11) GERD (gastroesophageal reflux disease): Was not on therapy in the past and discontinued - With his DAPT and now Steroids - will place back on PPI History of Present Illness Primary Care Provider: Vinod Pang 76 YOM with past medical history of B cell lymphoma treated with R-CHOP chemotherapy, liver mass with biopsy large malignant B cells (2019), anemia, CKD that worsened as well as developing hypercalcemia with his R-CHOP chemo and was on dialysis as well. He has a right forearm AV fistula in place. He has not needed recent dialysis, anemia of chronic disease as well as low iron. HTN (he has stopped taking his Cardizem), Right common fem-post tib bypass graft 2013, CAD with heart stent in 1989. Patient comes in today for not feeling well since . He originally started with low grade fevers and a headache, with increasing in fatigue. On Sunday he started to experience increase in cough as well as diarrhea. His diarrhea is brown to liquid semi formed, with no blood, and reported no association with food. This has also caused him to decrease oral intake because it would make him go to the bathroom. He was brought into the hospital by his and daughter to the [facility]. Patient is unsure where he may have contracted the virus at. However, he was out to the [place] on and his son and grandson visit to help him on the farm. His other grandson has COVID, but he reports not seeing him for a couple of week s. In the ER he was noted to have a low SPO2 on room air to 89% was placed on 2LNC and started on Decadron. He has a CXR performed with atelectasis and pulmonary congestion, routine blood with slight increase in renal indices. he received 500ml of 0.9% Saline in the ER. He will be admitted for COVID, follow his pulmonary function, BP, and renal function. Allergies Allergy/AdvReac Type Severity Reaction Status Date / Time No Known Drug Allergies Allergy Unknown NKDA Verified 02/13/21 13:06 Home Medications Medication Instructions Recorded Confirmed Type atorvastatin [Lipitor] 80 mg PO HS #0 tab 12/21/14 02/13/21 History finasteride 5 mg PO QAM 12/04/18 02/13/21 History aspirin [Aspir-81] 81 mg PO QPM 12/26/18 02/13/21 History clopidogrel 75 mg PO QPM 12/26/18 02/13/21 History diltiazem HCl 180 mg capsule,24 180 mg PO DAILY 11/13/19 02/13/21 History hr,extended release ferrous sulfate 325 mg (65 mg 325 mg PO BID #180 tab 03/18/20 02/13/21 Rx iron) tablet calcitriol 0.5 mcg capsule 0.5 mcg PO UD #45 cap 07/22/20 02/13/21 Rx epoetin neptali 20,000 unit/mL 20,000 unit SUBCUT MONTHLY #1 ml 01/21/21 02/13/21 Rx injection solution Past Med/Surg History Medical History Anemia ARF (acute renal failure) 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 Chronic back pain Chronic renal disease, stage IV Coronary artery disease Deep vein thrombosis Deep vein thrombosis ~ Depression Hearing deficit Hemodialysis patient LAST DIAYLSIS FEBRUARY 11, 2019. NEPHROLOGY HAS STOPPED DIAYLSIS FOR THE TIME. Hyperkalemia Hypertension Liver mass Metabolic acidosis On anticoagulant therapy Osteoarthritis Peripheral neuropathy Peripheral vascular disease Pneumonia 3 YRS AGO Secondary hyperparathyroidism of renal origin Sleep apnea NON-COMPLIANT Surgical History H/O vascular surgery REMOVAL OF DVT History of cardiac cath X1. FOLLOWS WITH DR JOYNER History of colonoscopy History of esophagogastroduodenoscopy (EGD) History of heart artery stent History of lumbar discectomy History of umbilical hernia repair S/P femoral-femoral bypass surgery RIGHT LEG Family History Mother FHx: lung cancer FHx: uterine cancer Social History Smoking Status: Former smoker Tobacco Type: Cigarettes Second Hand Exposure: No; Hx Alcohol Use: Yes Alcohol type: beer Hx Substance Use: No Preferred Language: Hebrew Communication Ability: Effective Greens Planter Required: No Beliefs That Will Affect Care: None Current Living Situation: Spouse Feels Safe at Home: Yes Assistive Devices: Glasses Review of Systems Review of Systems: REVIEW OF SYSTEMS: Constitutional: No fever, sweats or chills Eyes: No diplopia, no worsening or blurred vision ENT: (+) difficulty hearing, no trouble swallowing Respiratory: (+) cough, sputum, dyspnea on exertion, increase in fatigue Cardiovascular: No chest pain, tightness or palpitations Abdomen: (+) diarrhea, No pain, nausea, vomiting, or constipation Musculoskeletal: No joint pain, calf pain, swelling Neurologic: No weakness, numbness/tingling, or balance problems Psychiatric: No anxiety or depression Skin: No rash or itch Physical Exam Physical Exam: PHYSICAL EXAM: General: awake, alert, no apparent distress Head: Normocephalic, atraumatic ENT: PERRL, EOMI, no pharyngeal exudate, mucous membranes dry Neuro: AAO x 3, speech clear and appropriate, strength intact bilaterally 5/5, sensation intact and equal all extremities and dermatomes, no pronator drift Chest: equal rise and fall of the chest, no accessory muscle use, no heaves or thrills, fine crackles throughout, on 2lNC, Cardiac: Regular rate and rhythm, telemetry reviewed, S1S2, skin warm dry, cap refill <3 seconds, peripheral pulses +2 no JVD, no murmur, trace bilateral lower extremity edema, Right forearm AV fistula with weak thrill but good bruit and pulse. GI: NABS x 4 quadrants, soft, nontender to palpation, no rebound, guarding or tenderness : Spontaneously voiding dark valeriano urine, no pain, no CVA tenderness, Extremities: Normal inspection, no peripheral edema or erythema, calfs nontender to palpation Psych: Normal mood and affect Skin: no rash or erythema Results & Data Results & Data ([facility]) Vital Signs (Past 12 Hours) Vital Signs Temp Pulse Resp BP Pulse Ox 02/13/21 13:10 88 30 H 92 02/13/21 13:00 92 H 30 H 93 02/13/21 12:50 92 H 22 94 02/13/21 12:40 90 23 93 02/13/21 12:30 93 H 29 H 90 02/13/21 12:20 90 20 95 02/13/21 12:10 83 18 93 02/13/21 12:00 90 29 H 94 02/13/21 11:50 89 31 H 93 02/13/21 11:40 92 H 26 H 96 02/13/21 11:30 91 H 22 96 02/13/21 11:20 91 H 27 H 91 02/13/21 11:10 91 H 16 93 02/13/21 11:08 95 H 19 92 02/13/21 10:57 36.5 C 102 H 20 106/56 L 93 Laboratory Results Abnormal lab results 02/13/21 02/13/21 02/13/21 Range/Units 11:33 12:04 12:04 RBC 3.95 L (4.7-6.1) M/uL Hgb 12.1 L (14.0-18.0) g/dL Hct 36.6 L (42-52) % RDW Std Deviation 51.5 H (36.4-46.3) fL RDW Coeff of Xiomara 15.1 H (11.5-14.5) % Lymph # (Auto) 0.39 L (1.2-3.4) K/uL BUN 63 H (7-18) mg/dl Creatinine 2.98 H (0.6-1.4) mg/dl BUN/Creatinine Ratio 21.2 H (10-20) NT-Pro-B Natriuret Pep 4740 H (0-1800) pg/ml Albumin 3.0 L (3.4-5.0) gm/dl Albumin/Globulin Ratio 0.8 L (0.9-2) Urine Protein (Negative) Urine Blood (Negative) U Epithel Cells (Auto) (0-5) /lpf SARS-CoV-2 (PCR) POSITIVE A* (Negative) 02/13/21 Range/Units 12:54 RBC (4.7-6.1) M/uL Hgb (14.0-18.0) g/dL Hct (42-52) % RDW Std Deviation (36.4-46.3) fL RDW Coeff of Xiomara (11.5-14.5) % Lymph # (Auto) (1.2-3.4) K/uL BUN (7-18) mg/dl Creatinine (0.6-1.4) mg/dl BUN/Creatinine Ratio (10-20) NT-Pro-B Natriuret Pep (0-1800) pg/ml Albumin (3.4-5.0) gm/dl Albumin/Globulin Ratio (0.9-2) Urine Protein 1+ H (Negative) Urine Blood Trace H (Negative) U Epithel Cells (Auto) 10-20 H (0-5) /lpf SARS-CoV-2 (PCR) (Negative) Diagnostic Findings Chest X-Ray 02/13/21 11:25 SINGLE VIEW CHEST CLINICAL HISTORY: Atypical chest pain. FINDINGS: An AP, portable, upright chest radiograph is compared to study dated 01/01/2019. Correlation is made with chest CT dated 12/21/2020. A left internal jugular central venous infusion port is unchanged in position. The heart is top normal for projection noting atherosclerotic calcification of the thoracic aorta. There is prominence of the pulmonary vasculature. Chronic interstitial thickening is similar to previous. There are bibasilar airspace opacities. No large pleural effusion or pneumothorax is seen. The skeletal structures are osteopenic. The bony thorax is grossly intact. IMPRESSION: 1. Bibasilar airspace opacities likely represent scarring/atelectasis. Clinical correlation will be required. 2. There is prominence of the pulmonary vasculature. Correlate clinically for evidence of fluid overload. Medications Administered Discontinued Medications Albuterol (Ipratropium Gilbert/Albuterol Respimat Inh) 2 puffs INH NOW STA Stop: 02/13/21 11:28 Last Admin: 02/13/21 11:56 Dose: 2 puffs Documented by: [id number] Dexamethasone Sodium Phosphate (DexamethasonePf 10 Mg/Ml Vial) 10 mg IV NOW ONE Stop: 02/13/21 11:25 Last Admin: 02/13/21 11:56 Dose: 10 mg Documented by: [id number] Guaifenesin (Guaifenesin 600 Mg Tabcr) 600 mg PO NOW STA Stop: 02/13/21 11:29 Last Admin: 02/13/21 11:56 Dose: 600 mg Documented by: [id number] Sodium Chloride (Nss) 500 mls @ 999 mls/hr IV .Q31M ONE Stop: 02/13/21 11:54 Last Infusion: 02/13/21 12:49 Dose: 0 mls/hr Documented by: [id number] Admin: 02/13/21 11:56 Dose: 999 mls/hr Documented by: [id number] Acetaminophen (Ofirmev) 1,000 mg in 100 mls @ 400 mls/hr IV NOW STA Stop: 02/13/21 11:42 Last Infusion: 02/13/21 12:16 Dose: 0 mls/hr Documented by: [id number] Admin: 02/13/21 11:56 Dose: 400 mls/hr Documented by: [id number] Home Medications atorvastatin [Lipitor] 80 mg PO HS #0 tab 12/21/14 [History Confirmed 02/13/21] finasteride 5 mg PO QAM 12/04/18 [History Confirmed 02/13/21] aspirin [Aspir-81] 81 mg PO QPM 12/26/18 [History Confirmed 02/13/21] clopidogrel 75 mg PO QPM 12/26/18 [History Confirmed 02/13/21] diltiazem HCl 180 mg capsule,24 hr,extended release 180 mg PO DAILY 11/13/19 [History Confirmed 02/13/21] ferrous sulfate 325 mg (65 mg iron) tablet 325 mg PO BID #180 tab 03/18/20 [Rx Confirmed 02/13/21] calcitriol 0.5 mcg capsule 0.5 mcg PO UD #45 cap 07/22/20 [Rx Confirmed 02/13/21] epoetin neptali 20,000 unit/mL injection solution 20,000 unit SUBCUT MONTHLY #1 ml 01/21/21 [Rx Confirmed 02/13/21] ECG Additional Comments: Normal sinus rhythm Nonspecific T wave abnormality Abnormal ECG When compared with ECG of 01-JAN-2019 09:59, Vent. rate has increased BY 51 BPM Nonspecific T wave abnormality now evident in Lateral leads QT has lengthened Confirmed by Earl Manuel ([id number]) on 02/13/2021 11:59:01 AM Code Status & VTE Plan Code Status CODE: FULL VTE: SCD's, Heparin 5000 TID sub q VTE Prophylaxis Plan VTE Prophylaxis will be ordered: Yes Supervising Physician Co-Signing Physician Notes Patient not seen and examined to minimize Covid exposure. I did discuss the case with the nurse practitioner. Patient is now being admitted for Covid pneumonia. He is on Decadron, renal function limits of further therapy. O2 support as able. DVT prophylaxis with heparin. Continue airborne precautions. PG Care Time/CCT Total # of Minutes Spent Total Time Spent with Patient: Total time spent is greater than 50% in coordination of care (as documented) at patient's floor/unit and/or counseling patient: Coding Level of Care Code 24415 Initial Inpt Care Lvl 3 Diagnoses COVID-19 U07.1 CKD (chronic kidney disease) stage 4, GFR 15-29 ml/min N18.4 HTN (hypertension) I10 Hypertension type: essential hypertension Hypercholesteremia E78.00 Coronary artery disease I25.10 Associated angina: without angina Coronary Disease-Associated Artery/Lesion type: [place] artery [place] vs. transplanted heart: [place] heart PAD (peripheral artery disease) I73.9 Anemia N18.4; D63.1 Anemia type: due to chronic kidney disease Chronic kidney disease stage: stage 4 (severe) B-cell lymphoma C83.38 B-cell lymphoma type: diffuse large B-cell Lymphoma site: multiple regions Pulmonary nodule R91.1 MAEGAN (obstructive sleep apnea) G47.33 GERD (gastroesophageal reflux disease) K21.9 Esophagitis presence: without esophagitis (1) Coronary artery disease Associated angina: without angina Coronary Disease-Associated Artery/Lesion type: [place] artery [place] vs. transplanted heart: [place] heart Qualified Code(s): I25.10 - Atherosclerotic heart disease of [place] coronary artery without angina pectoris (2) B-cell lymphoma 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 (3) Anemia Anemia type: due to chronic kidney disease Chronic kidney disease stage: stage 4 (severe) Qualified Code(s): N18.4 - Chronic kidney disease, stage 4 (severe); D63.1 - Anemia in chronic kidney disease (4) GERD (gastroesophageal reflux disease) Esophagitis presence: without esophagitis Qualified Code(s): K21.9 - Gastro- esophageal reflux disease without esophagitis (5) HTN (hypertension) Hypertension type: essential hypertension Qualified Code(s): I10 - Essential (primary) hypertension
[2021-02-13] MEDS ORDERED: PANTOprazole 40 MG TAB PO SCH (15:15)
[2021-02-13] MEDS ORDERED: ONDANSETRON INJ 2 MG/ML 2 ML VIAL IV PRN (16:33)
[2021-02-13] MEDS ORDERED: ACETAMINOPHEN 325 MG TAB PO PRN (16:33)
[2021-02-13] MEDS ORDERED: POLYETHYLENE (MIRALAX) 17 GM PACK PO PRN (16:33)
[2021-02-13] MEDS: ALBUTEROL HFA 8 GM INHALER INH SCH (19:16)
[2021-02-13] MEDS: HEPARIN SOD 5,000 UNIT/0.5 ML VIAL SQ SCH (21:02)
[2021-02-13] MEDS: FERROUS SULFATE 325 MG TAB PO SCH (21:02)
[2021-02-13 21:03] LABS: Fibrinogen 664 mg/dl (184-400)
[2021-02-13] MEDS: ATORVASTATIN 40 MG TAB PO SCH (21:03)
[2021-02-13] MEDS: CLOPIDOGREL BISULFATE 75 MG TAB PO SCH (21:03)
[2021-02-13] MEDS: ASPIRIN 81 MG ECTAB PO SCH (21:03)
[2021-02-14] MEDS: ALBUTEROL HFA 8 GM INHALER INH SCH ×2 (01:05→07:29)
[2021-02-14] MEDS: HEPARIN SOD 5,000 UNIT/0.5 ML VIAL SQ SCH ×3 (06:29→22:48)
[2021-02-14 06:42] LABS: Hematocrit (blood only) 35.8 % (42-52); Hemoglobin 11.4 g/dL (14.0-18.0); Immature Granulocytes # (auto) 0.02 K/uL (0.00-0.02); Immature Granulocytes % (auto) 0.5 %; Lymphocytes # (auto) 0.28 K/uL (1.2-3.4); Lymphocytes % (auto) 7.7 %; Mean Corpuscular Hemoglobin 30.5 pg (25-34); Mean Corpuscular Hgb Conc 31.8 g/dL (32-36); Mean Corpuscular Volume 95.7 fL (80-100); Mean Platelet Volume 8.9 fL (7.4-10.4); Monocytes # (auto) 0.27 K/uL (0.11-0.59); Monocytes % (auto) 7.4 %; Neutrophils # (auto) 3.08 K/uL (1.4-6.5); Neutrophils % (auto) 84.4 %; Platelet Count 214 K/uL (130-400); RDW Coefficient of Variation 15.1 % (11.5-14.5); RDW Standard Deviation 52.8 fL (36.4-46.3); Red Blood Count 3.74 M/uL (4.7-6.1); White Blood Count 3.65 K/uL (4.8-10.8)
[2021-02-14 07:34] LABS: BUN Creatinine Ratio 20.4 (10-20); C Reactive Protein 7.33 mg/dl (0-0.29); Creatinine Clr Calc Pharmacy 19.9 ml/min; Est GFR (African American) 19.3; Est GFR (Non-African American) 16.7; Magnesium 2.5 mg/dl (1.8-2.4); Potassium 4.3 mmol/L (3.5-5.1)
[2021-02-14] MEDS: dexAMETHasone 6 MG in SYRINGE 0 ML IV SCH (08:10)
[2021-02-14] MEDS: FERROUS SULFATE 325 MG TAB PO SCH ×2 (08:10→20:10)
[2021-02-14] MEDS: CALCITRIOL 0.25 MCG CAPSULE PO SCH (08:10)
[2021-02-14] MEDS: FINASTERIDE 5 MG TAB PO SCH (08:10)
[2021-02-14] MEDS ORDERED: dilTIAZem ER 180 MG CAPCR PO SCH (09:00)
[2021-02-14] MEDS ORDERED: ALBUTEROL HFA 8 GM INHALER INH PRN (09:36)
--- NOTE | 2021-02-14 14:00 | Hospitalist Progress Note ---
Date of Service February 14, 2021 Assessment & Plan (1) Pneumonia due to COVID-19 virus: stable on 2L NC today continue dexamethasone 6mg IV daily no fever/chills, no increased work of breathing titrate off oxygen as tolerated add Codeine q6 PRN for cough (2) ARF (acute renal failure): KATHY on CKD stage IV Cr up further today at 3.3, likely still dry, BUN/Cr ratio is 20/1 will resume NSS at 80cc/hr, repeat BMP in AM, electrolytes stable making urine, this is non-oliguric (3) COVID-19: COVID-19 with hypoxia no further diarrhea but he remains dehydrated supportive care with NSS and dexamethasone (4) CKD (chronic kidney disease) stage 4, GFR 15-29 ml/min: CKD-4 with KATHY type II- Baseline 2.3-2.5 - Cr up to 3.3 despite fluid bolus in ED, add back NSS at 80cc/hr - Avoid nephrotoxic agents, if needed minimize exposure time. Renal dose all medicaitons - Receives Epogen monthly (5) HTN (hypertension): Patient reports he stopped his Cardizem because his blood pressure is never high - He currently is normotensive - ECHO 2018 with hfPef- grade I diastolic dysfunction (6) Hypercholesteremia: Continue Atorvastatin 80 mg - No acute needs (7) Coronary artery disease: Unknown vessel - As above, BP control, statin - Continue aspirin and Plavix (8) PAD (peripheral artery disease): As above, patient was being worked of for evaluation of his right femoral to posterior tibial bypass graft for stenosis evaluation. - Cleared from nephrology in regards to his contrast need - Continue statin, ASA, Plavix as above - Continue with walking plan - Continues to dip tobacco, does not smoke (9) Anemia: Previously was on Iron supplementation and received Venofir before - Recent labs was with normal iron- and AOCD - Is normocytic and chromic today likely related to his CKD- He is unsure when his last dose of Epogen was. (10) B-cell lymphoma: Completed his R-CHOP and 6 cycles, with complete metabolic response per chart review. - He has not had a PECT/CT scan, was being followed with [address]- scans- (11) Pulmonary nodule: Screening CT scan done 12/21/20- 1. There is a single new 5 mm nodule within the base of the right lower lobe. The remaining scattered subcentimeter pulmonary nodules remain stable. This bears watching on future examinations. 2. Stable 1.5 cm branching tubular density within the left upper lobe which favors an impacted terminal bronchus. 3. No lymphadenopathy within the chest. (12) MAEGAN (obstructive sleep apnea): Not on therapy at home and no ABG or pulmonary studies to review - Consider CPAP if needed at night for hypoxia (13) GERD (gastroesophageal reflux disease): Was not on therapy in the past and discontinued - With his DAPT and now Steroids - will place back on PPI Admission and Anticipated Discharge Date Admission Date: February 13, 2021 Subjective patient feeling better, main issue is that he has a harsh cough whenever he exerts himself or takes a deep breath will try some Codeine for the cough he is drinking a little better but still not eating well reviewed chart, reviewed labs, Cr ger to 3.3 despite some fluids yesterday his MM are dry, increased skin turgor, will give more fluids his breathing is stable on only 2L NC, no distress at all, no chest pain, no fever/chills no diarrhea Review of Systems Review of Systems: All systems reviewed & are unremarkable except as noted in Subjective Physical Exam Constitutional: WD/WN, vitals as above ENMT: Nose: + dry nasal mucous membranes; no epistaxis Mouth: + dry oral mucous membranes Neck: trachea midline, no thyromegaly Respiratory: normal respiratory effort and + cough; no labored breathing Auscultation: lungs clear to auscultation bilaterally Cardiovascular: RRR, no murmur, no edema Gastrointestinal (Abdomen): normal bowel sounds, soft, nontender, no hepatosplenomegaly Musculoskeletal: no cyanosis or clubbing, extremities motor strength 5/5 Skin: no rashes, warm and dry Neurologic: patellar DTR's 2+ bilat, sensation intact and PERRL, EOMI, accommodation nl, no face palsy, no dysarthria Psychiatric: A+Ox3, euthymic affect Lymphatic: no cervical or axillary lymphadenopathy Results & Data Results & Data ([facility]) Vital Signs (Past 12 Hours) Vital Signs Temp Pulse Pulse Resp BP Pulse Ox 02/14/21 11:20 36.6 C 83 19 142/75 H 91 02/14/21 07:44 36.6 C 69 19 130/62 95 02/14/21 07:29 71 18 96 02/14/21 07:09 76 02/14/21 04:46 36.6 C 68 17 134/72 94 Laboratory Results Laboratory Results - last 24 hr 02/13/21 02/14/21 02/14/21 16:54 05:51 05:51 WBC 3.65 L RBC 3.74 L Hgb 11.4 L Hct 35.8 L MCV 95.7 MCH 30.5 MCHC 31.8 L RDW Std Deviation 52.8 H RDW Coeff of [place] 15.1 H Plt Count 214 MPV 8.9 Immature Gran % (Auto) 0.5 Neut % (Auto) 84.4 Lymph % (Auto) 7.7 [place] % (Auto) 7.4 Eos % (Auto) 0.0 Baso % (Auto) 0.0 Neut # (Auto) 3.08 Lymph # (Auto) 0.28 L [place] # (Auto) 0.27 Eos # (Auto) 0.00 Baso # (Auto) 0.00 Immature Gran # (Auto) 0.02 ESR 55 H Fibrinogen 664 H Sodium Potassium Chloride Carbon Dioxide Anion Gap BUN Creatinine Est Cr Clr Drug Dosing Est GFR ( Amer) Est GFR (Non-Af Amer) BUN/Creatinine Ratio Glucose Calcium Magnesium Iron Transferrin Transferrin % Sat C-Reactive Protein 02/14/21 05:51 WBC RBC Hgb Hct MCV MCH MCHC RDW Std Deviation RDW Coeff of [place] Plt Count MPV Immature Gran % (Auto) Neut % (Auto) Lymph % (Auto) [place] % (Auto) Eos % (Auto) Baso % (Auto) Neut # (Auto) Lymph # (Auto) [place] # (Auto) Eos # (Auto) Baso # (Auto) Immature Gran # (Auto) ESR Fibrinogen Sodium 138 Potassium 4.3 D Chloride 107 Carbon Dioxide 22 Anion Gap 9.0 BUN 69 H Creatinine 3.38 H D Est Cr Clr Drug Dosing 19.9 Est GFR ( Amer) 19.3 Est GFR (Non-Af Amer) 16.7 BUN/Creatinine Ratio 20.4 H Glucose 125 H Calcium 9.0 Magnesium 2.5 H Iron 47 Transferrin 152 L Transferrin % Sat 22 C-Reactive Protein 7.33 H Medications Administered Current Inpatient Medications Acetaminophen (Acetaminophen 325 Mg Tab) 650 mg PO Q4H PRN PRN Reason: Pain or Fever Stop: 03/15/21 16:32 Albuterol (Albuterol Hfa 8 Gm Inhaler) 2 puffs INH Q6R PRN PRN Reason: Shortness Of Breath Or Wheezing Stop: 03/16/21 09:35 Aspirin (Aspirin 81 Mg Ectab) 81 mg PO QPM [facility] Stop: 03/15/21 20:59 Last Admin: 02/13/21 21:03 Dose: 81 mg Documented by: Atorvastatin Calcium (Atorvastatin 40 Mg Tab) 80 mg PO HS [facility] Stop: 03/15/21 20:59 Last Admin: 02/13/21 21:03 Dose: 80 mg Documented by: Calcitriol (Calcitriol 0.25 Mcg Capsule) 0.5 mcg PO MoWeFr@0900 [facility] Stop: 03/16/21 08:59 Last Admin: 02/14/21 08:10 Dose: 0.5 mcg Documented by: Clopidogrel Bisulfate (Clopidogrel Bisulfate 75 Mg Tab) 75 mg PO QPM [facility] Stop: 03/15/21 20:59 Last Admin: 02/13/21 21:03 Dose: 75 mg Documented by: Ferrous Sulfate (Ferrous Sulfate 325 Mg Tab) 325 mg PO BID [facility] Stop: 03/15/21 20:59 Last Admin: 02/14/21 08:10 Dose: 325 mg Documented by: Finasteride (Finasteride 5 Mg Tab) 5 mg PO QAM [facility] Stop: 03/16/21 08:59 Last Admin: 02/14/21 08:10 Dose: 5 mg Documented by: Guaifenesin/Codeine Phosphate (Guaifenesin/Codeine 200mg/20mg 10ml Udc) 10 ml PO Q6H PRN PRN Reason: Cough Stop: 03/16/21 13:56 Heparin Sodium (Porcine) (Heparin Sod 5,000 Unit/0.5 Ml Vial) 5,000 units SQ Q8 [facility] Stop: 03/15/21 21:59 Last Admin: 02/14/21 13:41 Dose: 5,000 units Documented by: Dexamethasone 6 mg/ Syringe 1.5 mls @ 1 mls/min IV DAILY [facility] Stop: 02/24/21 08:59 Last Admin: 02/14/21 08:10 Dose: 1 mls/min Documented by: Ondansetron HCl (Ondansetron Inj 2 Mg/Ml 2 Ml Vial) 4 mg IV Q6H PRN PRN Reason: Nausea Stop: 03/15/21 16:32 Polyethylene Glycol (Polyethylene (Miralax) 17 Gm Pack) 17 gm PO DAILY PRN PRN Reason: Constipation Stop: 03/15/21 16:32 PG Care Time/CCT Total # of Minutes Spent Total Time Spent with Patient: Total time spent is greater than 50% in coordination of care (as documented) at patient's floor/unit and/or counseling patient: Coding Level of Care Code 67567 Subseq Hosp Care Lvl 3 Diagnoses Pneumonia due to COVID-19 virus U07.1; J12.82 ARF (acute renal failure) N17.9 COVID-19 U07.1 CKD (chronic kidney disease) stage 4, GFR 15-29 ml/min N18.4 HTN (hypertension) I10 Hypertension type: essential hypertension Hypercholesteremia E78.00 Coronary artery disease I25.10 Associated angina: without angina Coronary Disease-Associated Artery/Lesion type: [place] artery [place] vs. transplanted heart: [place] heart PAD (peripheral artery disease) I73.9 Anemia N18.4; D63.1 Anemia type: due to chronic kidney disease Chronic kidney disease stage: stage 4 (severe) B-cell lymphoma C83.38 B-cell lymphoma type: diffuse large B-cell Lymphoma site: multiple regions Pulmonary nodule R91.1 MAEGAN (obstructive sleep apnea) G47.33 GERD (gastroesophageal reflux disease) K21.9 Esophagitis presence: without esophagitis (1) Coronary artery disease Associated angina: without angina Coronary Disease-Associated Artery/Lesion type: [place] artery [place] vs. transplanted heart: [place] heart Qualified Code(s): I25.10 - Atherosclerotic heart disease of [place] coronary artery without angina pectoris (2) B-cell lymphoma 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 (3) Anemia Anemia type: due to chronic kidney disease Chronic kidney disease stage: stage 4 (severe) Qualified Code(s): N18.4 - Chronic kidney disease, stage 4 (severe); D63.1 - Anemia in chronic kidney disease (4) GERD (gastroesophageal reflux disease) Esophagitis presence: without esophagitis Qualified Code(s): K21.9 - Gastro- esophageal reflux disease without esophagitis (5) HTN (hypertension) Hypertension type: essential hypertension Qualified Code(s): I10 - Essential (primary) hypertension
[2021-02-14] MEDS: SODIUM CHLORIDE 0.9% 1000ML 1,000 ML IV SCH (14:12)
[2021-02-14] MEDS: CLOPIDOGREL BISULFATE 75 MG TAB PO SCH (20:10)
[2021-02-14] MEDS: ATORVASTATIN 40 MG TAB PO SCH (20:10)
[2021-02-14] MEDS: ASPIRIN 81 MG ECTAB PO SCH (20:10)
[2021-02-15] MEDS: SODIUM CHLORIDE 0.9% 1000ML 1,000 ML IV SCH ×2 (02:58→15:52)
[2021-02-15] MEDS: HEPARIN SOD 5,000 UNIT/0.5 ML VIAL SQ SCH ×3 (05:47→21:12)
[2021-02-15 06:40] LABS: Hemoglobin 11.7 g/dL (14.0-18.0); Immature Granulocytes # (auto) 0.03 K/uL (0.00-0.02); Immature Granulocytes % (auto) 0.3 %; Lymphocytes # (auto) 0.55 K/uL (1.2-3.4); Lymphocytes % (auto) 5.1 %; Mean Corpuscular Hemoglobin 30.2 pg (25-34); Mean Corpuscular Hgb Conc 32.5 g/dL (32-36); Mean Platelet Volume 9.3 fL (7.4-10.4); Monocytes # (auto) 0.38 K/uL (0.11-0.59); Monocytes % (auto) 3.5 %; Neutrophils % (auto) 91.1 %; Platelet Count 234 K/uL (130-400); RDW Coefficient of Variation 15.1 % (11.5-14.5); RDW Standard Deviation 50.7 fL (36.4-46.3); Red Blood Count 3.87 M/uL (4.7-6.1); White Blood Count 10.76 K/uL (4.8-10.8)
[2021-02-15 07:24] LABS: BUN Creatinine Ratio 22.9 (10-20); Calcium 8.5 mg/dl (8.5-10.1); Creatinine Clr Calc Pharmacy 21.4 ml/min; Est GFR (African American) 21.2; Est GFR (Non-African American) 18.2; Magnesium 2.4 mg/dl (1.8-2.4); Potassium 3.6 mmol/L (3.5-5.1)
[2021-02-15] MEDS: FERROUS SULFATE 325 MG TAB PO SCH ×2 (08:19→19:57)
[2021-02-15] MEDS: FINASTERIDE 5 MG TAB PO SCH (08:19)
[2021-02-15] MEDS: dexAMETHasone 6 MG in SYRINGE 0 ML IV SCH (08:19)
--- NOTE | 2021-02-15 11:38 | Hospitalist Progress Note ---
Date of Service February 15, 2021 Assessment & Plan (1) Pneumonia due to COVID-19 virus: stable on 2L NC, 97%, removed oxygen late this morning, will try to keep on room air continue dexamethasone 6mg IV daily no fever/chills, no increased work of breathing add Codeine q6 PRN for cough, helping a little (2) ARF (acute renal failure): KATHY on CKD stage IV Cr improved to 3.1 from 3.3, BUN is 70 continue NSS at 80cc/hr until 5pm then stop fluids overnight, repeat BMP in AM making urine, this is non-oliguric (3) COVID-19: COVID-19 with hypoxia no further diarrhea but he remains dehydrated supportive care with NSS and dexamethasone (4) CKD (chronic kidney disease) stage 4, GFR 15-29 ml/min: CKD-4 with KATHY type II- Baseline 2.3-2.5 - Cr up at 3.1, continue gentle hydration - Avoid nephrotoxic agents, if needed minimize exposure time. Renal dose all medicaitons - Receives Epogen monthly (5) HTN (hypertension): Patient reports he stopped his Cardizem because his blood pressure is never high - He currently is normotensive - ECHO 2018 with hfPef- grade I diastolic dysfunction (6) Hypercholesteremia: Continue Atorvastatin 80 mg - No acute needs (7) Coronary artery disease: Unknown vessel - As above, BP control, statin - Continue aspirin and Plavix (8) PAD (peripheral artery disease): As above, patient was being worked of for evaluation of his right femoral to posterior tibial bypass graft for stenosis evaluation. - Cleared from nephrology in regards to his contrast need - Continue statin, ASA, Plavix as above - Continue with walking plan - Continues to dip tobacco, does not smoke (9) Anemia: Previously was on Iron supplementation and received Venofir before - Recent labs was with normal iron- and AOCD - Is normocytic and chromic today likely related to his CKD- He is unsure when his last dose of Epogen was. (10) B-cell lymphoma: Completed his R-CHOP and 6 cycles, with complete metabolic response per chart review. - He has not had a PECT/CT scan, was being followed with [address]- scans- (11) Pulmonary nodule: Screening CT scan done 12/21/20- 1. There is a single new 5 mm nodule within the base of the right lower lobe. The remaining scattered subcentimeter pulmonary nodules remain stable. This bears watching on future examinations. 2. Stable 1.5 cm branching tubular density within the left upper lobe which favors an impacted terminal bronchus. 3. No lymphadenopathy within the chest. (12) MAEGAN (obstructive sleep apnea): Not on therapy at home and no ABG or pulmonary studies to review - Consider CPAP if needed at night for hypoxia he desaturated last night, will order a nocturnal desat study (13) GERD (gastroesophageal reflux disease): Was not on therapy in the past and discontinued - With his DAPT and now Steroids - will place back on PPI Admission and Anticipated Discharge Date Admission Date: February 13, 2021 Subjective patient says he is making a lot of urine, does feel that he is emptying his bladder he is drinking more fluids today, does not appear dry no diarrhea, no vomiting, no dyspnea, no chest pain, no fever he has a cough, a little better with the Robitussin reviewed labs, Cr slightly better at 3.1 but BUN up at 70, K normal discussed plan, will stop fluids at 5pm, repeat BMP in the morning I removed his oxygen, he was 97% on 2L, was 94% on room air notified RN to watch and make sure we don't need to place back on oxygen she said he desaturated last night, likely has some MAEGAN Review of Systems Review of Systems: All systems reviewed & are unremarkable except as noted in Subjective Physical Exam Constitutional: WD/WN, vitals as above ENMT: Nose: + dry nasal mucous membranes; no epistaxis Mouth: + dry oral mucous membranes Neck: trachea midline, no thyromegaly Respiratory: normal respiratory effort and + cough; no labored breathing Auscultation: lungs clear to auscultation bilaterally Cardiovascular: RRR, no murmur, no edema Gastrointestinal (Abdomen): normal bowel sounds, soft, nontender, no hepatosplenomegaly Musculoskeletal: no cyanosis or clubbing, extremities motor strength 5/5 Skin: no rashes, warm and dry Neurologic: patellar DTR's 2+ bilat, sensation intact and PERRL, EOMI, accommodation nl, no face palsy, no dysarthria Psychiatric: A+Ox3, euthymic affect Lymphatic: no cervical or axillary lymphadenopathy Results & Data Results & Data ([facility]) Vital Signs (Past 12 Hours) Vital Signs Temp Pulse Pulse Pulse Resp BP Pulse Ox 02/15/21 11:22 36.6 C 95 H 18 148/86 H 97 02/15/21 07:44 37.1 C 84 17 147/80 H 94 02/15/21 07:00 86 02/15/21 03:00 37.0 C 83 20 157/88 H 95 Laboratory Results Laboratory Results - last 24 hr 02/15/21 02/15/21 05:39 05:39 WBC 10.76 RBC 3.87 L Hgb 11.7 L Hct 36.0 L MCV 93.0 MCH 30.2 MCHC 32.5 RDW Std Deviation 50.7 H RDW Coeff of [place] 15.1 H Plt Count 234 MPV 9.3 Immature Gran % (Auto) 0.3 Neut % (Auto) 91.1 Lymph % (Auto) 5.1 [place] % (Auto) 3.5 Eos % (Auto) 0.0 Baso % (Auto) 0.0 Neut # (Auto) 9.80 H Lymph # (Auto) 0.55 L [place] # (Auto) 0.38 Eos # (Auto) 0.00 Baso # (Auto) 0.00 Immature Gran # (Auto) 0.03 H Sodium 140 Potassium 3.6 D Chloride 109 H Carbon Dioxide 21 Anion Gap 10.0 BUN 72 H Creatinine 3.14 H Est Cr Clr Drug Dosing 21.4 Est GFR ( Amer) 21.2 Est GFR (Non-Af Amer) 18.2 BUN/Creatinine Ratio 22.9 H Glucose 86 Calcium 8.5 Magnesium 2.4 Medications Administered Current Inpatient Medications Acetaminophen (Acetaminophen 325 Mg Tab) 650 mg PO Q4H PRN PRN Reason: Pain or Fever Stop: 03/15/21 16:32 Albuterol (Albuterol Hfa 8 Gm Inhaler) 2 puffs INH Q6R PRN PRN Reason: Shortness Of Breath Or Wheezing Stop: 03/16/21 09:35 Aspirin (Aspirin 81 Mg Ectab) 81 mg PO QPM [facility] Stop: 03/15/21 20:59 Last Admin: 02/14/21 20:10 Dose: 81 mg Documented by: Atorvastatin Calcium (Atorvastatin 40 Mg Tab) 80 mg PO HS [facility] Stop: 03/15/21 20:59 Last Admin: 02/14/21 20:10 Dose: 80 mg Documented by: Calcitriol (Calcitriol 0.25 Mcg Capsule) 0.5 mcg PO MoWeFr@0900 [facility] Stop: 03/16/21 08:59 Last Admin: 02/14/21 08:10 Dose: 0.5 mcg Documented by: Clopidogrel Bisulfate (Clopidogrel Bisulfate 75 Mg Tab) 75 mg PO QPM [facility] Stop: 03/15/21 20:59 Last Admin: 02/14/21 20:10 Dose: 75 mg Documented by: Ferrous Sulfate (Ferrous Sulfate 325 Mg Tab) 325 mg PO BID [facility] Stop: 03/15/21 20:59 Last Admin: 02/15/21 08:19 Dose: 325 mg Documented by: Finasteride (Finasteride 5 Mg Tab) 5 mg PO QAM [facility] Stop: 03/16/21 08:59 Last Admin: 02/15/21 08:19 Dose: 5 mg Documented by: Guaifenesin/Codeine Phosphate (Guaifenesin/Codeine 200mg/20mg 10ml Udc) 10 ml PO Q6H PRN PRN Reason: Cough Stop: 03/16/21 13:56 Last Admin: 02/15/21 03:02 Dose: 10 ml Documented by: Heparin Sodium (Porcine) (Heparin Sod 5,000 Unit/0.5 Ml Vial) 5,000 units SQ Q8 [facility] Stop: 03/15/21 21:59 Last Admin: 02/15/21 05:47 Dose: 5,000 units Documented by: Dexamethasone 6 mg/ Syringe 1.5 mls @ 1 mls/min IV DAILY [facility] Stop: 02/24/21 08:59 Last Admin: 02/15/21 08:19 Dose: 1 mls/min Documented by: Sodium Chloride (Nss 1000ml) 1,000 mls @ 80 mls/hr IV .[id number] [facility] Stop: 03/16/21 14:14 Last Admin: 02/15/21 02:58 Dose: 80 mls/hr Documented by: Ondansetron HCl (Ondansetron Inj 2 Mg/Ml 2 Ml Vial) 4 mg IV Q6H PRN PRN Reason: Nausea Stop: 03/15/21 16:32 Polyethylene Glycol (Polyethylene (Miralax) 17 Gm Pack) 17 gm PO DAILY PRN PRN Reason: Constipation Stop: 03/15/21 16:32 PG Care Time/CCT Total # of Minutes Spent Total Time Spent with Patient: Total time spent is greater than 50% in coordination of care (as documented) at patient's floor/unit and/or counseling patient: Coding Level of Care Code 99905 Subseq Hosp Care Lvl 3 Diagnoses Pneumonia due to COVID-19 virus U07.1; J12.82 ARF (acute renal failure) N17.9 COVID-19 U07.1 CKD (chronic kidney disease) stage 4, GFR 15-29 ml/min N18.4 HTN (hypertension) I10 Hypertension type: essential hypertension Hypercholesteremia E78.00 Coronary artery disease I25.10 Coronary Disease-Associated Artery/Lesion type: [place] artery [place] vs. transplanted heart: [place] heart Associated angina: without angina PAD (peripheral artery disease) I73.9 Anemia N18.4; D63.1 Anemia type: due to chronic kidney disease Chronic kidney disease stage: stage 4 (severe) B-cell lymphoma C83.38 B-cell lymphoma type: diffuse large B-cell Lymphoma site: multiple regions Pulmonary nodule R91.1 MAEGAN (obstructive sleep apnea) G47.33 GERD (gastroesophageal reflux disease) K21.9 Esophagitis presence: without esophagitis (1) HTN (hypertension) Hypertension type: essential hypertension Qualified Code(s): I10 - Essential (primary) hypertension (2) Coronary artery disease Coronary Disease-Associated Artery/Lesion type: [place] artery [place] vs. transplanted heart: [place] heart Associated angina: without angina Qualified Code(s): I25.10 - Atherosclerotic heart disease of [place] coronary artery without angina pectoris (3) Anemia Anemia type: due to chronic kidney disease Chronic kidney disease stage: stage 4 (severe) Qualified Code(s): N18.4 - Chronic kidney disease, stage 4 (s evere); D63.1 - Anemia in chronic kidney disease (4) B-cell lymphoma B-cell lymphoma type: diffuse large B-cell Lymphoma site: multiple regions Qualified Code(s): C83.38 - Diffuse large B-cell lymphoma, lymph nodes of multi ple sites (5) GERD (gastroesophageal reflux disease) Esophagitis presence: without esophagitis Qualified Code(s): K21.9 - Gastro- esophageal reflux disease without esophagitis
[2021-02-15] MEDS: ASPIRIN 81 MG ECTAB PO SCH (19:56)
[2021-02-15] MEDS: CLOPIDOGREL BISULFATE 75 MG TAB PO SCH (19:56)
[2021-02-15] MEDS: ATORVASTATIN 40 MG TAB PO SCH (19:56)
[2021-02-16] MEDS: HEPARIN SOD 5,000 UNIT/0.5 ML VIAL SQ SCH ×3 (05:22→21:20)
[2021-02-16 06:18] LABS: Hematocrit (blood only) 33.7 % (42-52); Hemoglobin 10.9 g/dL (14.0-18.0); Immature Granulocytes # (auto) 0.06 K/uL (0.00-0.02); Immature Granulocytes % (auto) 0.5 %; Lymphocytes # (auto) 0.31 K/uL (1.2-3.4); Lymphocytes % (auto) 2.8 %; Mean Corpuscular Hgb Conc 32.3 g/dL (32-36); Mean Corpuscular Volume 92.8 fL (80-100); Mean Platelet Volume 8.5 fL (7.4-10.4); Monocytes # (auto) 0.42 K/uL (0.11-0.59); Monocytes % (auto) 3.8 %; Neutrophils # (auto) 10.17 K/uL (1.4-6.5); Neutrophils % (auto) 92.9 %; Platelet Count 205 K/uL (130-400); RDW Coefficient of Variation 15.2 % (11.5-14.5); Red Blood Count 3.63 M/uL (4.7-6.1); White Blood Count 10.96 K/uL (4.8-10.8)
[2021-02-16 07:11] LABS: BUN Creatinine Ratio 22.2 (10-20); Calcium 8.2 mg/dl (8.5-10.1); Creatinine Clr Calc Pharmacy 23.4 ml/min; Est GFR (African American) 22.8; Est GFR (Non-African American) 19.7; Magnesium 2.3 mg/dl (1.8-2.4); Potassium 4.2 mmol/L (3.5-5.1)
[2021-02-16] MEDS: FERROUS SULFATE 325 MG TAB PO SCH ×2 (08:14→21:20)
[2021-02-16] MEDS: CALCITRIOL 0.25 MCG CAPSULE PO SCH (08:14)
[2021-02-16] MEDS: FINASTERIDE 5 MG TAB PO SCH (08:14)
[2021-02-16] MEDS: dexAMETHasone 6 MG in SYRINGE 0 ML IV SCH ×2 (08:14→10:33)
--- NOTE | 2021-02-16 11:06 | Hospitalist Progress Note ---
Date of Service February 16, 2021 Assessment & Plan (1) Pneumonia due to COVID-19 virus: stable on room air today, 95%, no distress, less coughing continue dexamethasone 6mg IV daily no fever/chills, no increased work of breathing add Codeine q6 PRN for cough, helping a little had nocturnal desaturation study last night, dropped to 70's, needs 2L NC HS (2) ARF (acute renal failure): KATHY on CKD stage IV Cr improved to 2.9 from 3.1, BUN is 65 no further IV fluids needed, drinking better repeat BMP in the morning making urine, this is non-oliguric (3) COVID-19: COVID-19 with hypoxia no further diarrhea, no longer dehydrated supportive care with dexamethasone (4) CKD (chronic kidney disease) stage 4, GFR 15-29 ml/min: CKD-4 with KATHY type II- Baseline 2.3-2.5 - Cr up at 2.9 but getting better - Avoid nephrotoxic agents - Receives Epogen monthly repeat BMP in the morning (5) HTN (hypertension): Patient reports he stopped his Cardizem because his blood pressure is never high - He currently is 137/58 - ECHO 2019 with hfPef- grade I diastolic dysfunction (6) Hypercholesteremia: Continue Atorvastatin 80 mg - No acute needs (7) Coronary artery disease: Unknown vessel - As above, BP control, statin - Continue aspirin and Plavix (8) PAD (peripheral artery disease): As above, patient was being worked of for evaluation of his right femoral to posterior tibial bypass graft for stenosis evaluation. - Cleared from nephrology in regards to his contrast need - Continue statin, ASA, Plavix as above - Continue with walking plan - Continues to dip tobacco, does not smoke (9) Anemia: Previously was on Iron supplementation and received Venofir before - Recent labs was with normal iron- and AOCD - Hb 10.9 today (10) B-cell lymphoma: Completed his R-CHOP and 6 cycles, with complete metabolic response per chart review. - He has not had a PECT/CT scan, was being followed with [address]- scans- (11) Pulmonary nodule: Screening CT scan done 12/21/20- 1. There is a single new 5 mm nodule within the base of the right lower lobe. The remaining scattered subcentimeter pulmonary nodules remain stable. This bears watching on future examinations. 2. Stable 1.5 cm branching tubular density within the left upper lobe which favors an impacted terminal bronchus. 3. No lymphadenopathy within the chest. (12) MAEGAN (obstructive sleep apnea): Not on therapy at home and no ABG or pulmonary studies to review - Consider CPAP if needed at night for hypoxia he desaturated last night, will order a nocturnal desat study (13) GERD (gastroesophageal reflux disease): Was not on therapy in the past and discontinued - With his DAPT and now Steroids - will place back on PPI Admission and Anticipated Discharge Date Admission Date: February 13, 2021 Subjective patient doing well today, breathing comfortably without oxygen, sitting at the edge of the bed Cr is coming down to 2.9 from 3.1, making urine, electrolytes stable, no need for further IV fluids drinking and eating better, no diarrhea discussed plans to go home tomorrow, he agrees had nocturnal desaturation study last night, dropped to 70's on room air, definitely needs 2L HS will get a two step tomorrow, ask RN to walk him in hallway today Review of Systems Review of Systems: All systems reviewed & are unremarkable except as noted in Subjective Physical Exam Constitutional: WD/WN, vitals as above ENMT: Nose: no epistaxis Neck: trachea midline, no thyromegaly Respiratory: normal respiratory effort and + cough; no labored breathing Auscultation: lungs clear to auscultation bilaterally Cardiovascular: RRR, no murmur, no edema Gastrointestinal (Abdomen): normal bowel sounds, soft, nontender, no hepatosplenomegaly Musculoskeletal: no cyanosis or clubbing, extremities motor strength 5/5 Skin: no rashes, warm and dry Neurologic: patellar DTR's 2+ bilat, sensation intact and PERRL, EOMI, accommodation nl, no face palsy, no dysarthria Psychiatric: A+Ox3, euthymic affect Lymphatic: no cervical or axillary lymphadenopathy Results & Data Results & Data ([facility]) Vital Signs (Past 12 Hours) Vital Signs Temp Pulse Pulse Pulse Resp BP Pulse Ox 02/16/21 07:46 37.4 C 92 H 21 137/58 L 96 02/16/21 04:56 88 02/16/21 03:17 73 02/16/21 03:14 85 02/15/21 23:27 68 02/15/21 23:20 71 Pulse Ox 02/16/21 07:46 02/16/21 04:56 85 L 02/16/21 03:17 02/16/21 03:14 90 02/15/21 23:27 95 02/15/21 23:20 83 L Laboratory Results Laboratory Results - last 24 hr 02/16/21 02/16/21 05:55 05:55 WBC 10.96 H RBC 3.63 L Hgb 10.9 L Hct 33.7 L MCV 92.8 MCH 30.0 MCHC 32.3 RDW Std Deviation 52.0 H RDW Coeff of [place] 15.2 H Plt Count 205 MPV 8.5 Immature Gran % (Auto) 0.5 Neut % (Auto) 92.9 Lymph % (Auto) 2.8 [place] % (Auto) 3.8 Eos % (Auto) 0.0 Baso % (Auto) 0.0 Neut # (Auto) 10.17 H Lymph # (Auto) 0.[address] [place] # (Auto) 0.42 Eos # (Auto) 0.00 Baso # (Auto) 0.00 Immature Gran # (Auto) 0.06 H Sodium 139 Potassium 4.2 D Chloride 110 H Carbon Dioxide 21 Anion Gap 8.0 BUN 65 H Creatinine 2.95 H Est Cr Clr Drug Dosing 23.4 Est GFR ( Amer) 22.8 Est GFR (Non-Af Amer) 19.7 BUN/Creatinine Ratio 22.2 H Glucose 106 H Calcium 8.2 L Magnesium 2.3 Medications Administered Current Inpatient Medications Acetaminophen (Acetaminophen 325 Mg Tab) 650 mg PO Q4H PRN PRN Reason: Pain or Fever Stop: 03/15/21 16:32 Albuterol (Albuterol Hfa 8 Gm Inhaler) 2 puffs INH Q6R PRN PRN Reason: Shortness Of Breath Or Wheezing Stop: 03/16/21 09:35 Aspirin (Aspirin 81 Mg Ectab) 81 mg PO QPM [facility] Stop: 03/15/21 20:59 Last Admin: 02/15/21 19:56 Dose: 81 mg Documented by: Atorvastatin Calcium (Atorvastatin 40 Mg Tab) 80 mg PO HS [facility] Stop: 03/15/21 20:59 Last Admin: 02/15/21 19:56 Dose: 80 mg Documented by: Calcitriol (Calcitriol 0.25 Mcg Capsule) 0.5 mcg PO MoWeFr@0900 [facility] Stop: 03/16/21 08:59 Last Admin: 02/16/21 08:14 Dose: 0.5 mcg Documented by: Clopidogrel Bisulfate (Clopidogrel Bisulfate 75 Mg Tab) 75 mg PO QPM [facility] Stop: 03/15/21 20:59 Last Admin: 02/15/21 19:56 Dose: 75 mg Documented by: Ferrous Sulfate (Ferrous Sulfate 325 Mg Tab) 325 mg PO BID [facility] Stop: 03/15/21 20:59 Last Admin: 02/16/21 08:14 Dose: 325 mg Documented by: Finasteride (Finasteride 5 Mg Tab) 5 mg PO QAM [facility] Stop: 03/16/21 08:59 Last Admin: 02/16/21 08:14 Dose: 5 mg Documented by: Guaifenesin/Codeine Phosphate (Guaifenesin/Codeine 200mg/20mg 10ml Udc) 10 ml PO Q6H PRN PRN Reason: Cough Stop: 03/16/21 13:56 Last Admin: 02/16/21 05:32 Dose: 10 ml Documented by: Heparin Sodium (Porcine) (Heparin Sod 5,000 Unit/0.5 Ml Vial) 5,000 units SQ Q8 [facility] Stop: 03/15/21 21:59 Last Admin: 02/16/21 05:22 Dose: 5,000 units Documented by: Dexamethasone 6 mg/ Syringe 1.5 mls @ 1 mls/min IV DAILY [facility] Stop: 02/24/21 08:59 Last Admin: 02/16/21 10:33 Dose: 1 mls/min Documented by: Ondansetron HCl (Ondansetron Inj 2 Mg/Ml 2 Ml Vial) 4 mg IV Q6H PRN PRN Reason: Nausea Stop: 03/15/21 16:32 Polyethylene Glycol (Polyethylene (Miralax) 17 Gm Pack) 17 gm PO DAILY PRN PRN Reason: Constipation Stop: 03/15/21 16:32 PG Care Time/CCT Total # of Minutes Spent Total Time Spent with Patient: Total time spent is greater than 50% in coordination of care (as documented) at patient's floor/unit and/or counseling patient: Coding Level of Care Code 98756 Subseq Hosp Care Lvl 3 Diagnoses Pneumonia due to COVID-19 virus U07.1; J12.82 ARF (acute renal failure) N17.9 COVID-19 U07.1 CKD (chronic kidney disease) stage 4, GFR 15-29 ml/min N18.4 HTN (hypertension) I10 Hypertension type: essential hypertension Hypercholesteremia E78.00 Coronary artery disease I25.10 Coronary Disease-Associated Artery/Lesion type: [place] artery [place] vs. transplanted heart: [place] heart Associated angina: without angina PAD (peripheral artery disease) I73.9 Anemia N18.4; D63.1 Anemia type: due to chronic kidney disease Chronic kidney disease stage: stage 4 (severe) B-cell lymphoma C83.38 B-cell lymphoma type: diffuse large B-cell Lymphoma site: multiple regions Pulmonary nodule R91.1 MAEGAN (obstructive sleep apnea) G47.33 GERD (gastroesophageal reflux disease) K21.9 Esophagitis presence: without esophagitis (1) HTN (hypertension) Hypertension type: essential hypertension Qualified Code(s): I10 - Essential (primary) hypertension (2) Coronary artery disease Coronary Disease-Associated Artery/Lesion type: [place] artery [place] vs. transplanted heart: [place] heart Associated angina: without angina Qualified Code(s): I25.10 - Atherosclerotic heart disease of [place] coronary artery without angina pectoris (3) Anemia Anemia type: due to chronic kidney disease Chronic kidney disease stage: stage 4 (severe) Qualified Code(s): N18.4 - Chronic kidney disease, stage 4 (severe); D63.1 - Anemia in chronic kidney disease (4) B-cell lymphoma 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 (5) GERD (gastroesophageal reflux disease) Esophagitis presence: without esophagitis Qualified Code(s): K21.9 - Gastro- esophageal reflux disease without esophagitis
--- NOTE | 2021-02-16 13:08 | Fluoroscopy Report ---
FL a-port check CLINICAL HISTORY: left A port, swelling into neck, flushes COMPARISON STUDY: Chest radiograph February 13, 2021. FLUOROSCOPY TIME: 0.5 minutes. FLUOROSCOPIC IMAGES: 5. PROCEDURE AND FINDINGS: The left internal jugular Uimczc-q-Ghxe was accessed. A environmental designer fluoroscopic im age of the left upper chest and lower neck was obtained and demonstrated the tip within the left brac hiocephalic vein. At this time, 5 cc of Optiray 300 was injected through the Hroeut-n-Rbgk. Contrast extravasation along the proximal aspect of the catheter was noted. In addition, contrast extended sona ng the catheter raising the possibility of a fibrin sheath. No opacification of the more distal left brachiocephalic vein or SVC was identified. Therefore, this Ugwlgl-n-Imez is not functional. IMPRESSION: Nonfunctional left internal jugular [id number]-g-Txif, as described above. Contrast extravasa tion suggests catheter disruption. Possible fibrin sheath. ACT 112: Negative or not required by law. Electronically signed by: Virgil Pinzon M.D. 02/16/2021 1:07 PM
[2021-02-16] MEDS: ASPIRIN 81 MG ECTAB PO SCH (21:20)
[2021-02-16] MEDS: CLOPIDOGREL BISULFATE 75 MG TAB PO SCH (21:20)
[2021-02-16] MEDS: ATORVASTATIN 40 MG TAB PO SCH (21:20)
[2021-02-17] MEDS: HEPARIN SOD 5,000 UNIT/0.5 ML VIAL SQ SCH ×3 (05:48→22:03)
[2021-02-17 06:59] LABS: Calcium 8.4 mg/dl (8.5-10.1); Creatinine Clr Calc Pharmacy 23.6 ml/min; Est GFR (African American) 23.1 ml/min; Est GFR (Non-African American) 19.9 ml/min; Magnesium 2.5 mg/dl (1.8-2.4); Potassium 4.2 mmol/L (3.5-5.1)
[2021-02-17] MEDS: FINASTERIDE 5 MG TAB PO SCH (07:30)
[2021-02-17] MEDS: FERROUS SULFATE 325 MG TAB PO SCH ×2 (07:30→22:03)
[2021-02-17] MEDS: dexAMETHasone 6 MG in SYRINGE 0 ML IV SCH (07:30)
--- NOTE | 2021-02-17 07:44 | Hospitalist Progress Note ---
Date of Service February 17, 2021 Assessment & Plan (1) Hypoxemia: up to 4L today from room air yesterday slightly dyspneic, no distress CXR with some evidence of pulmonary edema, will give Bumex 1mg IV and watch for response try to titrate off oxygen as tolerated (2) Pneumonia due to COVID-19 virus: was stable on room air for two days, no distress, less coughing continue dexamethasone 6mg IV daily no fever/chills, no increased work of breathing add Codeine q6 PRN for cough, helping a little sats dropped to 79% on room air this morning, placed on 4L give Bumex 1mg IV to keep lungs dry, CXR suggests more pulmonary edema as opposed to worsening infiltrates (3) ARF (acute renal failure): KATHY on CKD stage IV Cr stable at 2.92 today, close to baseline no further IV fluids needed, drinking better repeat BMP in the morning making urine, this is non-oliguric give Bumex 1mg IV x 1 to see if his output improves (4) COVID-19: COVID-19 with hypoxia no further diarrhea, no longer dehydrated supportive care with dexamethasone (5) CKD (chronic kidney disease) stage 4, GFR 15-29 ml/min: CKD-4 with KATHY type II- Baseline 2.3-2.5 - Cr stable at 2.9 - Avoid nephrotoxic agents - Receives Epogen monthly repeat BMP in the morning, give Bumex 1mg IV today (6) HTN (hypertension): Patient reports he stopped his Cardizem because his blood pressure is never high - He currently is 133/62 - ECHO 2019 with hfPef- grade I diastolic dysfunction (7) Hypercholesteremia: Continue Atorvastatin 80 mg - No acute needs (8) Coronary artery disease: Unknown vessel - As above, BP control, statin - Continue aspirin and Plavix (9) PAD (peripheral artery disease): As above, patient was being worked of for evaluation of his right femoral to posterior tibial bypass graft for stenosis evaluation. - Cleared from nephrology in regards to his contrast need - Continue statin, ASA, Plavix as above - Continue with walking plan - Continues to dip tobacco, does not smoke (10) Anemia: Previously was on Iron supplementation and received Venofir before - Recent labs was with normal iron- and AOCD - Hb 10.9 today (11) B-cell lymphoma: Completed his R-CHOP and 6 cycles, with complete metabolic response per chart review. - He has not had a PECT/CT scan, was being followed with [address]- scans- PORT is not functioning anymore, confirmed on port study with extravasation of contrast, can get removed as outpatient (12) Pulmonary nodule: Screening CT scan done 12/21/20- 1. There is a single new 5 mm nodule within the base of the right lower lobe. The remaining scattered subcentimeter pulmonary nodules remain stable. This bears watching on future examinations. 2. Stable 1.5 cm branching tubular density within the left upper lobe which favors an impacted terminal bronchus. 3. No lymphadenopathy within the chest. (13) MAEGAN (obstructive sleep apnea): Not on therapy at home and no ABG or pulmonary studies to review - Consider CPAP if needed at night for hypoxia he desaturated last night, will order a nocturnal desat study (14) GERD (gastroesophageal reflux disease): Was not on therapy in the past and discontinued - With his DAPT and now Steroids - will place back on PPI Admission and Anticipated Discharge Date Admission Date: February 13, 2021 Subjective patient admits he feels a little more short of breath today, now up to 4L, no distress sitting at the sink getting himself cleaned up today RN found him this morning eating cereal without oxygen, saturations were only 79% CXR today shows some pulmonary edema Cr is 2.9 again today, will give a single dose of Bumex 1mg IV and see how he re sponds he asked about discharge, told him we will need to get him off oxygen, cannot guarantee tomorrow for discharge, he is frustrated spoke with RN about the plan no fever/chills, had a solid BM, minimal cough, no chest pain Review of Systems Review of Systems: All systems reviewed & are unremarkable except as noted in Subjective Physical Exam Constitutional: WD/WN, vitals as above ENMT: Nose: no epistaxis Mouth: + dry oral mucous membranes Neck: trachea midline, no thyromegaly Respiratory: normal respiratory effort and + cough; no labored breathing Auscultation: + rales (bases) Cardiovascular: RRR, no murmur, no edema Gastrointestinal (Abdomen): normal bowel sounds, soft, nontender, no hepatosplenomegaly Musculoskeletal: no cyanosis or clubbing, extremities motor strength 5/5 Skin: no rashes, warm and dry Neurologic: patellar DTR's 2+ bilat, sensation intact and PERRL, EOMI, accommodation nl, no face palsy, no dysarthria Psychiatric: A+Ox3, euthymic affect Lymphatic: no cervical or axillary lymphadenopathy Results & Data Results & Data ([facility]) Vital Signs (Past 12 Hours) Vital Signs Temp Pulse Resp BP Pulse Ox 02/17/21 07:19 36.7 C 94 H 18 133/62 92 02/16/21 22:42 37.0 C 71 22 145/72 H 94 Laboratory Results Laboratory Results - last 24 hr 02/17/21 05:36 Sodium 140 Potassium 4.2 Chloride 112 H Carbon Dioxide 19 L Anion Gap 9.0 BUN 67 H Creatinine 2.92 H Est Cr Clr Drug Dosing 23.6 Est GFR ( Amer) 23.1 Est GFR (Non-Af Amer) 19.9 BUN/Creatinine Ratio 23.0 H Glucose 103 H Calcium 8.4 L Magnesium 2.5 H Medications Administered Current Inpatient Medications Acetaminophen (Acetaminophen 325 Mg Tab) 650 mg PO Q4H PRN PRN Reason: Pain or Fever Stop: 03/15/21 16:32 Albuterol (Albuterol Hfa 8 Gm Inhaler) 2 puffs INH Q6R PRN PRN Reason: Shortness Of Breath Or Wheezing Stop: 03/16/21 09:35 Aspirin (Aspirin 81 Mg Ectab) 81 mg PO QPM [facility] Stop: 03/15/21 20:59 Last Admin: 02/16/21 21:20 Dose: 81 mg Documented by: Atorvastatin Calcium (Atorvastatin 40 Mg Tab) 80 mg PO [facility] Stop: 03/15/21 20:59 Last Admin: 02/16/21 21:20 Dose: 80 mg Documented by: Calcitriol (Calcitriol 0.25 Mcg Capsule) 0.5 mcg PO MoWeFr@0900 [facility] Stop: 03/16/21 08:59 Last Admin: 02/16/21 08:14 Dose: 0.5 mcg Documented by: Clopidogrel Bisulfate (Clopidogrel Bisulfate 75 Mg Tab) 75 mg PO QPM [facility] Stop: 03/15/21 20:59 Last Admin: 02/16/21 21:20 Dose: 75 mg Documented by: Ferrous Sulfate (Ferrous Sulfate 325 Mg Tab) 325 mg PO BID [facility] Stop: 03/15/21 20:59 Last Admin: 02/17/21 07:30 Dose: 325 mg Documented by: Finasteride (Finasteride 5 Mg Tab) 5 mg PO QAM [facility] Stop: 03/16/21 08:59 Last Admin: 02/17/21 07:30 Dose: 5 mg Documented by: Guaifenesin/Codeine Phosphate (Guaifenesin/Codeine 200mg/20mg 10ml Udc) 10 ml PO Q6H PRN PRN Reason: Cough Stop: 03/16/21 13:56 Last Admin: 02/16/21 05:32 Dose: 10 ml Documented by: Heparin Sodium (Porcine) (Heparin Sod 5,000 Unit/0.5 Ml Vial) 5,000 units SQ Q8 [facility] Stop: 03/15/21 21:59 Last Admin: 02/17/21 05:48 Dose: 5,000 units Documented by: Dexamethasone 6 mg/ Syringe 1.5 mls @ 1 mls/min IV DAILY [facility] Stop: 02/24/21 08:59 Last Admin: 02/17/21 07:30 Dose: 1 mls/min Documented by: Ondansetron HCl (Ondansetron Inj 2 Mg/Ml 2 Ml Vial) 4 mg IV Q6H PRN PRN Reason: Nausea Stop: 03/15/21 16:32 Polyethylene Glycol (Polyethylene (Miralax) 17 Gm Pack) 17 gm PO DAILY PRN PRN Reason: Constipation Stop: 03/15/21 16:32 PG Care Time/CCT Total # of Minutes Spent Total Time Spent with Patient: Total time spent is greater than 50% in coordination of care (as documented) at patient's floor/unit and/or counseling patient: Coding Level of Care Code 30349 Subseq Hosp Care Lvl 3 Diagnoses Hypoxemia R09.02 Pneumonia due to COVID-19 virus U07.1; J12.82 ARF (acute renal failure) N17.9 COVID-19 U07.1 CKD (chronic kidney disease) stage 4, GFR 15-29 ml/min N18.4 HTN (hypertension) I10 Hypertension type: essential hypertension Hypercholesteremia E78.00 Coronary artery disease I25.10 Associated angina: without angina Coronary Disease-Associated Artery/Lesion type: [place] artery [place] vs. transplanted heart: [place] heart PAD (peripheral artery disease) I73.9 Anemia N18.4; D63.1 Anemia type: due to chronic kidney disease Chronic kidney disease stage: stage 4 (severe) B-cell lymphoma C83.38 B-cell lymphoma type: diffuse large B-cell Lymphoma site: multiple regions Pulmonary nodule R91.1 MAEGAN (obstructive sleep apnea) G47.33 GERD (gastroesophageal reflux disease) K21.9 Esophagitis presence: without esophagitis (1) Coronary artery disease Associated angina: without angina Coronary Disease-Associated Artery/Lesion type: [place] artery [place] vs. transplanted heart: [place] heart Qualified Code(s): I25.10 - Atherosclerotic heart disease of [place] coronary artery without angina pectoris (2) B-cell lymphoma 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 (3) Anemia Anemia type: due to chronic kidney disease Chronic kidney disease stage: stage 4 (severe) Qualified Code(s): N18.4 - Chronic kidney disease, stage 4 (severe); D63.1 - Anemia in chronic kidney disease (4) GERD (gastroesophageal reflux disease) Esophagitis presence: without esophagitis Qualified Code(s): K21.9 - Gastro- esophageal reflux disease without esophagitis (5) HTN (hypertension) Hypertension type: essential hypertension Qualified Code(s): I10 - Essential (primary) hypertension
--- NOTE | 2021-02-17 10:38 | XRay Report ---
XR chest 1V portable CLINICAL HISTORY: hypoxemia COMPARISON STUDY: Chest radiograph February 13, 2021. Chest CT December 21, 2020. FINDINGS: Left internal jugular Fmiwbf-s-Aqto is in place. There is no pneumothorax or pleural effusi on. Lung volumes are diminished. This is unchanged. Mild cardiomegaly is unchanged. Bilateral opaciti es and interstitial thickening have increased. IMPRESSION: Increase in bilateral opacities and interstitial thickening. The findings could reflect an infectious process or pulmonary edema. ACT 112: Negative or not required by law. Electronically signed by: Virgil Pinzon M.D. 02/17/2021 10:37 AM
[2021-02-17] MEDS ORDERED: BUMETANIDE 1 MG in SYRINGE 0 ML IV ONE (12:00)
[2021-02-17] MEDS: CLOPIDOGREL BISULFATE 75 MG TAB PO SCH (22:02)
[2021-02-17] MEDS: ASPIRIN 81 MG ECTAB PO SCH (22:03)
[2021-02-17] MEDS: ATORVASTATIN 40 MG TAB PO SCH (22:03)
[2021-02-18] MEDS: HEPARIN SOD 5,000 UNIT/0.5 ML VIAL SQ SCH ×3 (06:14→21:58)
[2021-02-18] MEDS: CALCIUM CARBONATE 500 MG CHEWABLE TAB PO PRN (06:14)
[2021-02-18 06:38] LABS: BUN Creatinine Ratio 21.7 (10-20); Calcium 9.1 mg/dl (8.5-10.1); Creatinine Clr Calc Pharmacy 19.7 ml/min; Est GFR (African American) 19.3 ml/min; Est GFR (Non-African American) 16.7 ml/min; Magnesium 2.6 mg/dl (1.8-2.4); Potassium 4.6 mmol/L (3.5-5.1)
[2021-02-18 06:48] LABS: C Reactive Protein 19.4 mg/dl (0-0.29)
[2021-02-18] MEDS: CALCITRIOL 0.25 MCG CAPSULE PO SCH (07:56)
[2021-02-18] MEDS: dexAMETHasone 6 MG in SYRINGE 0 ML IV SCH (07:56)
[2021-02-18] MEDS: FERROUS SULFATE 325 MG TAB PO SCH ×2 (07:56→21:58)
[2021-02-18] MEDS: FINASTERIDE 5 MG TAB PO SCH (07:57)
--- NOTE | 2021-02-18 09:42 | XRay Report ---
XR chest 1V portable HISTORY: 76 years-old Male hypoxia, COVID acute hypoxia. COVID Positive. COMPARISON: Chest radiograph 02/17/2021 TECHNIQUE: Portable AP view of the chest FINDINGS: Left IJ Zifkxz-j-Rddr catheter appears unchanged. The cardiac silhouette is enlarged. No pneumothorax or large pleural effusion. Bilateral mixed interstitial and alveolar opacities have slightly progres sed from comparison. Bones appear grossly intact. IMPRESSION: Slightly progressed mixed interstitial and alveolar opacities suggestive of multifocal pn eumonia. Pulmonary edema could appear similarly. ACT 112: Negative or not required by law. The above report was generated using voice recognition software. It may contain grammatical, syntax o r spelling errors. Electronically signed by: Usama Villarreal M.D. 02/18/2021 9:40 AM
--- NOTE | 2021-02-18 10:07 | Hospitalist Progress Note ---
Date of Service February 18, 2021 Assessment & Plan (1) Hypoxemia: rapid decline the past 48 hours, went from room air to 4L on 02/17 and now on 10L wall high flow last night he took off oxygen and ambulated to toilet, dropped to 70's saturations and needed 15L high flow to recover, told him to keep oxygen off and ring armendariz CXR today shows worsening infiltrates he responded well to Bumex 1mg IV yesterday but no improvement in oxygenation, feel that changes are all due to worsening COVID pneumonia CRP is up to 19 today I feel he is at high risk of further decline, BIPAP and possible intubation will ask pharmacy and pulmonology to consider Tocilizumab, unsure if it is safe with CKD stage IV and h/o B cell lymphoma (2) Pneumonia due to COVID-19 virus: was stable on room air for two days, no distress, less coughing, now he has gone to 10L wall high flow in past 48 hours continue dexamethasone 6mg IV daily, day 6 not a candidate for Remdesivir due to CKD stage IV, Cr is 3.3 today continue Codeine q6 PRN for cough, helping a little CXR 02/18 with worsening infiltrates bilaterally, CRP has jumped to 19 today as above, will ask pharmacy/pulm to assess for Tocilizumab guarded prognosis, he is at high risk of further decline (3) ARF (acute renal failure): KATHY on CKD stage IV Cr was down to 2.9 on 02/17 based on CXR with possible pulm edema and worsening hypoxia, gave Bumex 1mg IV on 02/17 good response with diuresis but made his Cr rise to 3.38 today hold on further Bumex fluid restric to 1800cc examines euvolemic at this time, K is stable repeat BMP in the morning (4) COVID-19: initially presented with primarily GI symptoms, had diarrhea and was dehydrated fluctuated between room air and 2L over past 48 hours he is up to 10L wall high flow and worsening infiltrates on CXR today continue dexamethasone diarrhea has completely resolved (5) CKD (chronic kidney disease) stage 4, GFR 15-29 ml/min: CKD-4 with KATHY type II- Baseline 2.3-2.5 - Cr ger to 3.3 from 2.9 after Bumex 1mg IV on 02/17, hold on further diuretics - Avoid nephrotoxic agents - Receives Epogen monthly repeat BMP in the morning (6) HTN (hypertension): Patient reports he stopped his Cardizem because his blood pressure is never high - He currently is 138/76 - ECHO 2019 with hfPef- grade I diastolic dysfunction (7) Hypercholesteremia: Continue Atorvastatin 80 mg - No acute needs (8) Coronary artery disease: Unknown vessel - As above, BP control, statin - Continue aspirin and Plavix (9) PAD (peripheral artery disease): As above, patient was being worked of for evaluation of his right femoral to posterior tibial bypass graft for stenosis evaluation. - Cleared from nephrology in regards to his contrast need - Continue statin, ASA, Plavix as above - Continue with walking plan - Continues to dip tobacco, does not smoke (10) Anemia: Previously was on Iron supplementation and received Venofir before - Recent labs was with normal iron- and AOCD - Hb 10.9 on 02/17 (11) B-cell lymphoma: Completed his R-CHOP and 6 cycles, with complete metabolic response per art review. - He has not had a PECT/CT scan, was being followed with [address]- scans- PORT is not functioning anymore, confirmed on port study with extravasation of contrast, can get removed as outpatient (12) Pulmonary nodule: Screening CT scan done 12/21/20- 1. There is a single new 5 mm nodule within the base of the right lower lobe. The remaining scattered subcentimeter pulmonary nodules remain stable. This bears watching on future examinations. 2. Stable 1.5 cm branching tubular density within the left upper lobe which favo rs an impacted terminal bronchus. 3. No lymphadenopathy within the chest. (13) MAEGAN (obstructive sleep apnea): Not on therapy at home and no ABG or pulmonary studies to review - Consider CPAP if needed at night for hypoxia he dropped to 70's with nocturnal desaturation study on 02/16, likely has MAEGAN (14) GERD (gastroesophageal reflux disease): Was not on therapy in the past and discontinued - With his DAPT and now Steroids - will place back on PPI Admission and Anticipated Discharge Date Admission Date: February 13, 2021 Subjective patient requiring more oxygen this morning, up to 10L wall high flow, using his belly a little but he says he feels fine he is not listening to nurses, last night he took off his oxygen to walk to the bathroom, dropped to 70's, required 15L NC repeated CXR this morning, worsening bilateral infiltrates Cr is up to 3.3 after a dose of Bumex 1mg IV yesterday, no further diuretics planned, although he admits he made a lot of urine after the Bumex CRP has jumped to 19 will ask pharmacy and pulmonology to consider Tocilizumab on him not sure with his CKD stage IV and Cr of 3.3 and his history of B cell lymphoma Review of Systems Review of Systems: All systems reviewed & are unremarkable except as noted in Subjective Constitutional: + fatigue and + weakness; no fever and no chills Respiratory: + cough, + dyspnea, + dyspnea on exertion and + sputum production; no hemoptysis, no pain with cough and no wheezing Cardiovascular: no chest pain, no palpitations and no edema Gastrointestinal: no abdominal pain, no nausea, no vomiting, no constipation and no diarrhea/loose stools Physical Exam Constitutional: WD/WN, vitals as above ENMT: Nose: no epistaxis Mouth: + dry oral mucous membranes Neck: trachea midline, no thyromegaly Respiratory: + uses accessory muscles (slight belly breathing), + cough and + tachypneic Auscultation: lungs clear to auscultation bilaterally and + diminished lung sounds Cardiovascular: RRR, no murmur, no edema Gastrointestinal (Abdomen): normal bowel sounds, soft, nontender, no hepatosplenomegaly Musculoskeletal: no cyanosis or clubbing, extremities motor strength 5/5 Skin: no rashes, warm and dry Neurologic: patellar DTR's 2+ bilat, sensation intact and PERRL, EOMI, accommodation nl, no face palsy, no dysarthria Psychiatric: A+Ox3, euthymic affect Lymphatic: no cervical or axillary lymphadenopathy Results & Data Results & [facility] Vital Signs (Past 12 Hours) Vital Signs Temp Pulse Resp BP Pulse Ox 02/18/21 07:30 36.8 C 85 20 138/76 95 02/17/21 23:38 37.2 C 67 24 140/73 88 L Laboratory Results Laboratory Results - last 24 hr 02/18/21 05:43 Sodium 139 Potassium 4.6 Chloride 111 H Carbon Dioxide 19 L Anion Gap 9.0 BUN 73 H Creatinine 3.38 H D Est Cr Clr Drug Dosing 19.7 Est GFR ( Amer) 19.3 Est GFR (Non-Af Amer) 16.7 BUN/Creatinine Ratio 21.7 H Glucose 119 H Calcium 9.1 Magnesium 2.6 H C-Reactive Protein 19.40 H Medications Administered Current Inpatient Medications Acetaminophen (Acetaminophen 325 Mg Tab) 650 mg PO Q4H PRN PRN Reason: Pain or Fever Stop: 03/15/21 16:32 Albuterol (Albuterol Hfa 8 Gm Inhaler) 2 puffs INH Q6R PRN PRN Reason: Shortness Of Breath Or Wheezing Stop: 03/16/21 09:35 Aspirin (Aspirin 81 Mg Ectab) 81 mg PO QPM [facility] Stop: 03/15/21 20:59 Last Admin: 02/17/21 22:03 Dose: 81 mg Documented by: Atorvastatin Calcium (Atorvastatin 40 Mg Tab) 80 mg PO HS [facility] Stop: 03/15/21 20:59 Last Admin: 02/17/21 22:03 Dose: 80 mg Documented by: Calcitriol (Calcitriol 0.25 Mcg Capsule) 0.5 mcg PO MoWeFr@0900 [facility] Stop: 03/16/21 08:59 Last Admin: 02/18/21 07:56 Dose: 0.5 mcg Documented by: Calcium Carbonate (Calcium Carbonate 500 Mg Chewable Tab) 500 mg PO Q8 PRN PRN Reason: Indigestion Stop: 03/20/21 03:44 Last Admin: 02/18/21 06:14 Dose: 500 mg Documented by: Clopidogrel Bisulfate (Clopidogrel Bisulfate 75 Mg Tab) 75 mg PO QPM [facility] Stop: 03/15/21 20:59 Last Admin: 02/17/21 22:02 Dose: 75 mg Documented by: Ferrous Sulfate (Ferrous Sulfate 325 Mg Tab) 325 mg PO BID [facility] Stop: 03/15/21 20:59 Last Admin: 02/18/21 07:56 Dose: 325 mg Documented by: Finasteride (Finasteride 5 Mg Tab) 5 mg PO QAM [facility] Stop: 03/16/21 08:59 Last Admin: 02/18/21 07:57 Dose: 5 mg Documented by: Guaifenesin/Codeine Phosphate (Guaifenesin/Codeine 200mg/20mg 10ml Udc) 10 ml PO Q6H PRN PRN Reason: Cough Stop: 03/16/21 13:56 Last Admin: 02/18/21 07:56 Dose: 10 ml Documented by: Heparin Sodium (Porcine) (Heparin Sod 5,000 Unit/0.5 Ml Vial) 5,000 units SQ Q8 [facility] Stop: 03/15/21 21:59 Last Admin: 02/18/21 06:14 Dose: 5,000 units Documented by: Dexamethasone 6 mg/ Syringe 1.5 mls @ 1 mls/min IV DAILY [facility] Stop: 02/24/21 08:59 Last Admin: 02/18/21 07:56 Dose: 1 mls/min Documented by: Ondansetron HCl (Ondansetron Inj 2 Mg/Ml 2 Ml Vial) 4 mg IV Q6H PRN PRN Reason: Nausea Stop: 03/15/21 16:32 Polyethylene Glycol (Polyethylene (Miralax) 17 Gm Pack) 17 gm PO DAILY PRN PRN Reason: Constipation Stop: 03/15/21 16:32 PG Care Time/CCT Total # of Minutes Spent Total Time Spent with Patient: Total time spent is greater than 50% in coordination of care (as documented) at patient's floor/unit and/or counseling patient: Coding Level of Care Code 57769 Subseq Hosp Care Lvl 3 Diagnoses Hypoxemia R09.02 Pneumonia due to COVID-19 virus U07.1; J12.82 ARF (acute renal failure) N17.9 COVID-19 U07.1 CKD (chronic kidney disease) stage 4, GFR 15-29 ml/min N18.4 HTN (hypertension) I10 Hypertension type: essential hypertension Hypercholesteremia E78.00 Coronary artery disease I25.10 Coronary Disease-Associated Artery/Lesion type: [place] artery [place] vs. 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 transplanted heart: [place] heart Associated angina: without angina Qualified Code(s): I25.10 - Atherosclerotic heart disease of [place] coronary artery without angina pectoris (3) Anemia Anemia type: due to chronic kidney disease Chronic kidney disease stage: stage 4 (severe) Qualified Code(s): N18.4 - Chronic kidney disease, stage 4 (severe); D63.1 - Anemia in chronic kidney disease (4) B-cell lymphoma 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 (5) GERD (gastroesophageal reflux disease) Esophagitis presence: without esophagitis Qualified Code(s): K21.9 - Gastro- esophageal reflux disease without esophagitis
[2021-02-18] MEDS ORDERED: DEXAMETHASONE SOD INJ 4 MG/ML VIAL IV STA (12:08)
[2021-02-18] MEDS ORDERED: dexAMETHasone 4 MG in SYRINGE 0 ML IV STA (12:13)
[2021-02-18] MEDS: ASPIRIN 81 MG ECTAB PO SCH (21:57)
[2021-02-18] MEDS: CLOPIDOGREL BISULFATE 75 MG TAB PO SCH (21:58)
[2021-02-18] MEDS: ATORVASTATIN 40 MG TAB PO SCH (21:58)
[2021-02-19] MEDS: HEPARIN SOD 5,000 UNIT/0.5 ML VIAL SQ SCH ×3 (05:50→21:02)
[2021-02-19 06:53] LABS: BUN Creatinine Ratio 24.5 (10-20); C Reactive Protein 16.6 mg/dl (0-0.29); Creatinine Clr Calc Pharmacy 20.2 ml/min; Est GFR (African American) 20.1 ml/min; Est GFR (Non-African American) 17.4 ml/min; Potassium 4.7 mmol/L (3.5-5.1)
[2021-02-19] MEDS: FERROUS SULFATE 325 MG TAB PO SCH ×2 (09:02→20:52)
[2021-02-19] MEDS: dexAMETHasone 10 MG in SYRINGE 0 ML IV SCH (09:02)
[2021-02-19] MEDS: FINASTERIDE 5 MG TAB PO SCH (09:02)
--- NOTE | 2021-02-19 18:55 | Hospitalist Progress Note ---
Date of Service February 19, 2021 Assessment & Plan (1) Acute respiratory failure with hypoxia: 2nd COVID-19 pneumonia. No known PE or complicating CHF. See below. (2) Pneumonia due to COVID-19 virus: Patient's first day of symptoms was about 10 days ago (~02/10/2021). He is day #7 of 10 of IV dexamethasone. Dexamethasone was increased to 10mg/day yesterdaydue to worsening respiratory status. He was felt NOT to be a candidate for Remdesivir at time of admission due to renal function. Was not given Convalescent plasma earlier this stay. Although his respiratory status worsened in the last few days he was not a Tocilizumab candidate based on current guidelines. Continue IV steroids. Continue aggressive pulmonary toilet and NC O2. Nursing performing chest PT. CXR yesterday with alveolar & interstitial opacities - most of which likely COVID rather than CHF. (3) ARF (acute renal failure): KATHY on CKD stage IV baseline Cr 2.4 to 2.8 peak 3.38 Cr today 3.2 repeat BMP in the morning (4) CKD (chronic kidney disease) stage 4, GFR 15-29 ml/min: CKD-4 at baseline repeat BMP in the morning (5) HTN (hypertension): BPs mildly high - due to steroid effect? follow for now (6) Hypercholesteremia: Continue Atorvastatin 80 mg Recheck ast/alt in light of COVID illness (7) Coronary artery disease: No ischemic symptoms at this time Continue statin, aspirin and Plavix (8) PAD (peripheral artery disease): right femoral to posterior tibial bypass graft, by report, has re-stenosis he denied any right leg pain today continue statin, ASA, Plavix (9) Anemia: H/H acceptable at this time (10) B-cell lymphoma: Completed his R-CHOP protocol for such in the past No evidence of any chest lymphadenopathy on CT chest earlier this spring (11) Pulmonary nodule: Screening CT scan done 12/21/20- 1. There is a single new 5 mm nodule within the base of the right lower lobe. The remaining scattered subcentimeter pulmonary nodules remain stable. This bears watching on future examinations. 2. Stable 1.5 cm branching tubular density within the left upper lobe which fav ors an impacted terminal bronchus. 3. No lymphadenopathy within the chest. would refer to [facility] Pulmonary nodule program post-d/c (12) MAEGAN (obstructive sleep apnea): not on NIPPV for such (13) GERD (gastroesophageal reflux disease): PPI especially in light of high-dose steroids (14) DVT prophylaxis: heparin 5000 TID updated pt's by phone updated pt's daughter by phone PT, OT Admission and Anticipated Discharge Date Admission Date: February 13, 2021 Subjective patient w/ ongoing fatigue, cough, feeling a little down/sad has COVID - he is worried about her status appetite fair at best no GI symptoms no loss of taste or smell cough is largely dry Review of Systems Constitutional: + fatigue, + weakness and + anorexia; no fever, no chills and no body aches Ear, Nose, Mouth, Throat: no nasal congestion and no sore throat Respiratory: + cough and + dyspnea on exertion Cardiovascular: no chest pain, no dyspnea at rest and no edema Gastrointestinal: no abdominal pain, no nausea and no vomiting Physical Exam Constitutional: no acute distress and no altered mental status ENMT: external ear and nose normal, oropharynx normal Respiratory: + cough; no respiratory distress Auscultation: + diminished lung sounds (bases) and + crackles (scattered b/l ) Cardiovascular: Rate/Rhythm: regular rate and regular rhythm Heart Sounds: normal S1 and normal S2; no murmur Vessels: posterior tibial pulses present and dorsalis pedis pulses present; no JVD Extremities: + edema (trace b/l ) Gastrointestinal (Abdomen): normal bowel sounds, soft, nontender, no hepatosplenomegaly Psychiatric: Orientation: alert and oriented x 3 Affect: + flat affect Results & Data Results & Data ([facility]) Vital Signs (Past 12 Hours) Vital Signs Temp Pulse Resp BP Pulse Ox Pulse Ox 02/19/21 18:00 92 02/19/21 16:45 94 02/19/21 15:48 92 02/19/21 15:30 36.7 C 71 20 142/76 H 95 02/19/21 13:35 95 02/19/21 11:47 36.5 C 77 22 144/76 H 93 02/19/21 07:47 36.6 C 72 24 124/70 95 Cr 3.27 procal 0.33 crp 16.6, down from 19 PG Care Time/CCT Total # of Minutes Spent Total Time Spent with Patient: Total time spent is greater than 50% in coordination of care (as documented) at patient's floor/unit and/or counseling patient: Coding Level of Care Code 18225 Subseq Hosp Care Lvl 3 Diagnoses Acute respiratory failure with hypoxia J96.01 Pneumonia due to COVID-19 virus U07.1; J12.82 ARF (acute renal failure) N17.9 Acute renal failure type: unspecified CKD (chronic kidney disease) stage 4, GFR 15-29 ml/min N18.4 HTN (hypertension) I10 Hypertension type: essential hypertension Hypercholesteremia E78.00 Coronary artery disease I25.10 Associated angina: without angina Coronary Disease-Associated Artery/Lesion type: [place] artery [place] vs. transplanted heart: [place] heart PAD (peripheral artery disease) I73.9 Anemia N18.4; D63.1 Anemia type: due to chronic kidney disease Chronic kidney disease stage: stage 4 (severe) B-cell lymphoma C83.38 B-cell lymphoma type: diffuse large B-cell Lymphoma site: multiple regions Pulmonary nodule R91.1 MAEGAN (obstructive sleep apnea) G47.33 GERD (gastroesophageal reflux disease) K21.9 Esophagitis presence: without esophagitis DVT prophylaxis Z29.9 (1) ARF (acute renal failure) Acute renal failure type: unspecified Qualified Code(s): N17.9 - Acute kidney failure, unspecified (2) Coronary artery disease Associated angina: without angina Coronary Disease-Associated Artery/Lesion type: [place] artery [place] vs. transplanted heart: [place] heart Qualified Code(s): I25.10 - Atherosclerotic heart disease of [place] coronary artery without angina pectoris (3) B-cell lymphoma 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 (4) Anemia Anemia type: due to chronic kidney disease Chronic kidney disease stage: stage 4 (severe) Qualified Code(s): N18.4 - Chronic kidney disease, stage 4 (severe); D63.1 - Anemia in chronic kidney disease (5) GERD (gastroesophageal reflux disease) Esophagitis presence: without esophagitis Qualified Code(s): K21.9 - Gastro- esophageal reflux disease without esophagitis (6) HTN (hypertension) Hypertension type: essential hypertension Qualified Code(s): I10 - Essential (primary) hypertension
[2021-02-19] MEDS: CLOPIDOGREL BISULFATE 75 MG TAB PO SCH (20:51)
[2021-02-19] MEDS: ASPIRIN 81 MG ECTAB PO SCH (20:51)
[2021-02-19] MEDS: ATORVASTATIN 40 MG TAB PO SCH (20:51)
[2021-02-19] MEDS: CALCIUM CARBONATE 500 MG CHEWABLE TAB PO PRN (22:48)
[2021-02-20] MEDS: HEPARIN SOD 5,000 UNIT/0.5 ML VIAL SQ SCH ×3 (06:05→22:09)
[2021-02-20 06:46] LABS: BUN Creatinine Ratio 26.2 (10-20); Calcium 9.7 mg/dl (8.5-10.1); Creatinine Clr Calc Pharmacy 20.7 ml/min; Est GFR (African American) 20.8 ml/min; Potassium 4.9 mmol/L (3.5-5.1)
[2021-02-20 06:50] LABS: Basophils # (auto) 0.02 K/uL (0-0.2); Basophils % (auto) 0.2 %; Hematocrit (blood only) 37.8 % (42-52); Hemoglobin 12.3 g/dL (14.0-18.0); Immature Granulocytes # (auto) 0.17 K/uL (0.00-0.02); Immature Granulocytes % (auto) 1.4 %; Lymphocytes % (auto) 7.4 %; Mean Corpuscular Hemoglobin 30.4 pg (25-34); Mean Corpuscular Hgb Conc 32.5 g/dL (32-36); Mean Corpuscular Volume 93.3 fL (80-100); Mean Platelet Volume 9.5 fL (7.4-10.4); Monocytes # (auto) 0.29 K/uL (0.11-0.59); Monocytes % (auto) 2.4 %; Neutrophils # (auto) 10.72 K/uL (1.4-6.5); Neutrophils % (auto) 88.6 %; Platelet Count 312 K/uL (130-400); RDW Coefficient of Variation 15.1 % (11.5-14.5); RDW Standard Deviation 51.1 fL (36.4-46.3); Red Blood Count 4.05 M/uL (4.7-6.1)
[2021-02-20] MEDS: FINASTERIDE 5 MG TAB PO SCH (08:04)
[2021-02-20] MEDS: FERROUS SULFATE 325 MG TAB PO SCH ×2 (08:04→20:36)
[2021-02-20] MEDS: dexAMETHasone 10 MG in SYRINGE 0 ML IV SCH (08:04)
[2021-02-20] MEDS ORDERED: BUMETANIDE 1 MG TAB PO ONE (17:48)
[2021-02-20] MEDS: CLOPIDOGREL BISULFATE 75 MG TAB PO SCH (20:36)
[2021-02-20] MEDS: ATORVASTATIN 40 MG TAB PO SCH (20:37)
[2021-02-20] MEDS: ASPIRIN 81 MG ECTAB PO SCH (20:37)
--- NOTE | 2021-02-20 22:52 | Hospitalist Progress Note ---
Date of Service February 20, 2021 Assessment & Plan (1) Acute respiratory failure with hypoxia: 2nd COVID-19 pneumonia. No known PE. No evidence of complicating bacterial superinfection. See below. (2) Pneumonia due to COVID-19 virus: Patient's first day of symptoms was about 11 days ago (~02/10/2021). He is day #8 of 10 of IV dexamethasone. Dexamethasone was increased to 10mg/day on Sunday due to worsening respiratory status. He was NOT to be a candidate for Remdesivir at time of admission due to renal function. Was not given Convalescent plasma earlier this stay. Although his respiratory status worsened in the last few days he was not a Tocilizumab candidate based on current guidelines. Continue IV steroids. Continue aggressive pulmonary toilet and NC O2. Nursing performing chest PT. Will give a dose of bumex orally to keep net negative fluid balance. (3) ARF (acute renal failure): KATHY on CKD stage IV baseline Cr 2.4 to 2.8 peak 3.38 Cr today 3.18 repeat BMP in the morning (4) CKD (chronic kidney disease) stage 4, GFR 15-29 ml/min: CKD-4 at baseline repeat BMP in the morning (5) HTN (hypertension): BPs were mildly high but now improved follow (6) Hypercholesteremia: Continue Atorvastatin 80 mg Recheck ast/alt in am in light of COVID illness (7) Coronary artery disease: No ischemic symptoms at this time Continue statin, aspirin and Plavix (8) PAD (peripheral artery disease): right femoral to posterior tibial bypass graft, by report, has re-stenosis no recent leg pains continue statin, ASA, Plavix (9) Anemia: H/H acceptable at this time (10) B-cell lymphoma: Completed his R-CHOP protocol for such in the past No evidence of any chest lymphadenopathy on CT chest earlier this spring (11) Pulmonary nodule: Screening CT scan done 12/21/20- 1. There is a single new 5 mm nodule within the base of the right lower lobe. The remaining scattered subcentimeter pulmonary nodules remain stable. This bears watching on future examinations. 2. Stable 1.5 cm branching tubular density within the left upper lobe which favors an impacted terminal bronchus. 3. No lymphadenopathy within the chest. would refer to [facility] Pulmonary nodule program post-d/c (12) MAEGAN (obstructive sleep apnea): not on NIPPV for such (13) GERD (gastroesophageal reflux disease): add PPI (14) Weight loss: 8-9kg of weight loss since admission I do not believe this represents fluid weight loss he is eating poorly due to COVID infection add nephrocaps add boost consider remeron steroids may help liberalize diet - he is not diabetic - d/c DM diet d/c fluid restriction change diet to LOW K since K is upper limits of normal in setting of CKD (15) DVT prophylaxis: heparin 5000 TID updated pt's and daughter by phone on 02/19/21 cont PT, OT Admission and Anticipated Discharge Date Admission Date: February 13, 2021 Subjective patient feeling about the same as yesterday - no better but not any worse. still with cough - dry. still with fatigue. spirits are "ok." he is worried about - she has COVID. apparently she helped deliver a cow last night [place] their [place] farm. he is uncertain if family got a pulse ox to check her sats at home. no new complaints. nursing continues with chest PT. Review of Systems Constitutional: + fatigue, + weakness and + anorexia; no body aches Respiratory: no hemoptysis and no wheezing Cardiovascular: no chest pain Gastrointestinal: no abdominal pain, no nausea and no vomiting Physical Exam Constitutional: no acute distress and no altered mental status ENMT: external ear and nose normal, oropharynx normal Respiratory: + cough; no respiratory distress Auscultation: + diminished lung sounds (bases) and + crackles (scattered b/l ) Cardiovascular: Rate/Rhythm: regular rate and regular rhythm Heart Sounds: normal S1 and normal S2; no murmur Vessels: posterior tibial pulses present a nd dorsalis pedis pulses present; no JVD Extremities: + edema (trace b/l ) Gastrointestinal (Abdomen): normal bowel sounds, soft, nontender, no hepatosplenomegaly Psychiatric: Orientation: alert and oriented x 3 Affect: + flat affect Results & Data Results & Data ([facility]) Vital Signs (Past 12 Hours) Vital Signs Temp Pulse Resp BP Pulse Ox 02/20/21 19:45 36.6 C 72 20 156/68 H 93 02/20/21 17:24 92 02/20/21 16:55 94 02/20/21 15:26 36.3 C L 88 26 H 152/85 H 94 02/20/21 15:17 69 21 93 02/20/21 12:27 36.7 C 68 22 161/85 H 91 Laboratory Results Laboratory Results - last 24 hr 02/20/21 02/20/21 06:00 06:01 WBC 12.10 H RBC 4.05 L Hgb 12.3 L Hct 37.8 L MCV 93.3 MCH 30.4 MCHC 32.5 RDW Std Deviation 51.1 H RDW Coeff of [place] 15.1 H Plt Count 312 MPV 9.5 Immature Gran % (Auto) 1.4 Neut % (Auto) 88.6 Lymph % (Auto) 7.4 [place] % (Auto) 2.4 Eos % (Auto) 0.0 Baso % (Auto) 0.2 Neut # (Auto) 10.72 H Lymph # (Auto) 0.90 L [place] # (Auto) 0.29 Eos # (Auto) 0.00 Baso # (Auto) 0.02 Immature Gran # (Auto) 0.17 H Sodium 141 Potassium 4.9 Chloride 111 H Carbon Dioxide 21 Anion Gap 9.0 BUN 83 H Creatinine 3.18 H Est Cr Clr Drug Dosing 20.7 Est GFR ( Amer) 20.8 Est GFR (Non-Af Amer) 18.0 BUN/Creatinine Ratio 26.2 H Glucose 103 H Calcium 9.7 PG Care Time/CCT Total # of Minutes Spent Total Time Spent with Patient: Total time spent is greater than 50% in cooling pipe inspector rdination of care (as documented) at patient's floor/unit and/or counseling patient: Coding Level of Care Code 43554 Subseq Hosp Care Lvl 2 Diagnoses Acute respiratory failure with hypoxia J96.01 Pneumonia due to COVID-19 virus U07.1; J12.82 ARF (acute renal failure) N17.9 Acute renal failure type: unspecified CKD (chronic kidney disease) stage 4, GFR 15-29 ml/min N18.4 HTN (hypertension) I10 Hypertension type: essential hypertension Hypercholesteremia E78.00 Coronary artery disease I25.10 Associated angina: without angina Coronary Disease-Associated Artery/Lesion type: [place] artery [place] vs. transplanted heart: [place] heart PAD (peripheral artery disease) I73.9 Anemia N18.4; D63.1 Anemia type: due to chronic kidney disease Chronic kidney disease stage: stage 4 (severe) B-cell lymphoma C83.38 B-cell lymphoma type: diffuse large B-cell Lymphoma site: multiple regions Pulmonary nodule R91.1 MAEGAN (obstructive sleep apnea) G47.33 GERD (gastroesophageal reflux disease) K21.9 Esophagitis presence: without esophagitis Weight loss R63.4 DVT prophylaxis Z29.9 (1) ARF (acute renal failure) Acute renal failure type: unspecified Qualified Code(s): N17.9 - Acute kidney failure, unspecified (2) Coronary artery disease Associated angina: without angina Coronary Disease-Associated Artery/Lesion type: [place] artery [place] vs. transplanted heart: [place] heart Qualified Code(s): I25.10 - Atherosclerotic heart disease of [place] coronary artery without angina pectoris (3) B-cell lymphoma 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 (4) Anemia Anemia type: due to chronic kidney disease Chronic kidney disease stage: stage 4 (severe) Qualified Code(s): N18.4 - Chronic kidney disease, stage 4 (s evere); D63.1 - Anemia in chronic kidney disease (5) GERD (gastroesophageal reflux disease) Esophagitis presence: without esophagitis Qualified Code(s): K21.9 - Gastro- esophageal reflux disease without esophagitis (6) HTN (hypertension) Hypertension type: essential hypertension Qualified Code(s): I10 - Essential (primary) hypertension
[2021-02-21] MEDS: HEPARIN SOD 5,000 UNIT/0.5 ML VIAL SQ SCH ×3 (06:10→21:53)
[2021-02-21] MEDS: FINASTERIDE 5 MG TAB PO SCH (07:48)
[2021-02-21] MEDS: CALCITRIOL 0.25 MCG CAPSULE PO SCH (07:48)
[2021-02-21] MEDS: dexAMETHasone 10 MG in SYRINGE 0 ML IV SCH (07:48)
[2021-02-21] MEDS: FERROUS SULFATE 325 MG TAB PO SCH ×2 (07:49→21:52)
[2021-02-21 08:19] LABS: D Dimer 1750 ug/L FEU (0-500)
[2021-02-21 08:32] LABS: BUN Creatinine Ratio 28.5 (10-20); Calcium 10.1 mg/dl (8.5-10.1); Est GFR (African American) 20.3 ml/min; Est GFR (Non-African American) 17.5 ml/min; Potassium 4.6 mmol/L (3.5-5.1)
[2021-02-21] MEDS: ZINC SULFATE 220 MG CAPSULE PO SCH (08:47)
[2021-02-21] MEDS: NEPHROCAPS PO SCH (08:47)
[2021-02-21] MEDS: PANTOprazole 40 MG TAB PO SCH (08:47)
--- NOTE | 2021-02-21 20:07 | Hospitalist Progress Note ---
Date of Service February 21, 2021 Assessment & Plan (1) Anorexia: 2nd to COVID. can't rule out other underlying issue contributing. has flat affect but denies depression. regardless could consider remeron at HS. added boost, nephrocaps, zinc to help with nutrition/appetite. told his family they could bring in outside food that he enjoys. impaired taste/smell likely contributing to this issue. can't leave hospital until this problem improves. (2) Acute respiratory failure with hypoxia: 2nd COVID-19 pneumonia. improved. down to 5 L NC O2. cont wean as tolerated. No known PE. No evidence of complicating bacterial superinfection. No complicating CHF at this time. See below. (3) Pneumonia due to COVID-19 virus: Patient's first day of symptoms was about 11 days ago (~02/10/2021). He is day 9 of 10 of IV dexamethasone. Dexamethasone was increased to 10mg/day on Sunday due to worsening respiratory status. Leave as is until 10-day course is complete. He was NOT a candidate for Remdesivir at time of admission due to renal function. Was not given Convalescent plasma earlier this stay. Although his respiratory status worsened in the last few days he was not a Tocilizumab candidate based on current guidelines. Continue IV steroids. Continue aggressive pulmonary toilet and NC O2. Nursing performing chest PT. Attempts at diuresis have not led to clinical improvement. He is not overtly volume overloaded. (4) ARF (acute renal failure): KATHY on CKD stage IV baseline Cr 2.4 to 2.8 peak 3.38 Cr today 3.2 repeat BMP in the morning may need touch of IV fluids due to very poor oral intake and he is starting to look volume contracted (5) CKD (chronic kidney disease) stage 4, GFR 15-29 ml/min: CKD-4 at baseline repeat BMP in the morning (6) HTN (hypertension): BPs were mildly high but now improved follow (7) Hypercholesteremia: Continue Atorvastatin 80 mg Ast/alt wnl (8) Coronary artery disease: No ischemic symptoms at this time Continue statin, aspirin and Plavix (9) PAD (peripheral artery disease): right femoral to posterior tibial bypass graft, by report, has re-stenosis no recent leg pains continue statin, ASA, Plavix (10) Anemia: H/H acceptable (11) B-cell lymphoma: Completed his R-CHOP protocol for such in the past No evidence of any chest lymphadenopathy on CT chest earlier this spring (12) Pulmonary nodule: Screening CT scan done 12/21/20- 1. There is a single new 5 mm nodule within the base of the right lower lobe. The remaining scattered subcentimeter pulmonary nodules remain stable. This bears watching on future examinations. 2. Stable 1.5 cm branching tubular density within the left upper lobe which favors an impacted terminal bronchus. 3. No lymphadenopathy within the chest. would refer to [facility] Pulmonary nodule program post-d/c (13) MAEGAN (obstructive sleep apnea): not on NIPPV for such (14) GERD (gastroesophageal reflux disease): PPI (15) Weight loss: 8-9kg of weight loss since admission I do not believe this represents fluid weight loss he is eating poorly due to COVID infection added nephrocaps added boost consider remeron steroids thus far not helping liberalize diet allow outside food (16) DVT prophylaxis: heparin 5000 TID updated pt's and daughter by phone on 02/19/21 and 02/21/21 cont PT, OT Admission and Anticipated Discharge Date Admission Date: February 13, 2021 Subjective patient still with severe anorexia also with impaired smell/taste no cp or abd pain mild cough mild TREVINO denies depression; just sick of being alone in hospital bored as well no new complaints Review of Systems Constitutional: + fatigue and + anorexia; no fever, no chills and no body aches Respiratory: no hemoptysis, no sputum production and no wheezing Cardiovascular: no chest pain Gastrointestinal: no abdominal pain, no nausea, no vomiting and no diarrhea/loose stools Physical Exam Constitutional: no acute distress and no altered mental status ENMT: Mouth: + dry oral mucous membranes; no oral mucosal abnormality (no thrush ) Respiratory: + cough; no respiratory distress Auscultation: + diminished lung sounds (bases) and + crackles (scattered b/l ) Cardiovascular: Rate/Rhythm: regular rate and regular rhythm Heart Sounds: normal S1 and normal S2; no murmur Vessels: posterior tibial pulses present and dorsalis pedis pulses present; no JVD Extremities: no edema Gastrointestinal (Abdomen): normal bowel sounds, soft, nontender, no hepatosplenomegaly Psychiatric: Orientation: alert and oriented x 3 Affect: + flat affect Results & Data Results & Data ([facility]) Vital Signs (Past 12 Hours) Vital Signs Temp Pulse Resp BP Pulse Ox 02/21/21 16:50 36.4 C L 88 22 145/83 H 95 02/21/21 11:52 36.3 C L 93 H 21 148/74 H 91 Laboratory Results Laboratory Results - last 24 hr 02/21/21 02/21/21 07:33 07:33 D-Dimer 1750 H* Sodium 139 Potassium 4.6 Chloride 109 H Carbon Dioxide 20 L Anion Gap 10.0 BUN 93 H Creatinine 3.25 H Est Cr Clr Drug Dosing 20.0 Est GFR ( Amer) 20.3 Est GFR (Non-Af Amer) 17.5 BUN/Creatinine Ratio 28.5 H Glucose 92 Calcium 10.1 AST 17 ALT 38 PG Care Time/CCT Total # of Minutes Spent Total Time Spent with Patient: Total time spent is greater than 50% in coordination of care (as documented) at patient's floor/unit and/or counseling patient: Coding Level of Care Code 48287 Subseq Hosp Care Lvl 3 Diagnoses Anorexia R63.0 Acute respiratory failure with hypoxia J96.01 Pneumonia due to COVID-19 virus U07.1; J12.82 ARF (acute renal failure) N17.9 Acute renal failure type: unspecified CKD (chronic kidney disease) stage 4, GFR 15-29 ml/min N18.4 HTN (hypertension) I10 Hypertension type: essential hypertension Hypercholesteremia E78.00 Coronary artery disease I25.10 Associated angina: without angina Coronary Disease-Associated Artery/Lesion type: [place] artery [place] vs. transplanted heart: [place] heart PAD (peripheral artery disease) I73.9 Anemia N18.4; D63.1 Anemia type: due to chronic kidney disease Chronic kidney disease stage: stage 4 (severe) B-cell lymphoma C83.38 B-cell lymphoma type: diffuse large B-cell Lymphoma site: multiple regions Pulmonary nodule R91.1 MAEGAN (obstructive sleep apnea) G47.33 GERD (gastroesophageal reflux disease) K21.9 Esophagitis presence: without esophagitis Weight loss R63.4 DVT prophylaxis Z29.9 (1) ARF (acute renal failure) Acute renal failure type: unspecified Qualified Code(s): N17.9 - Acute kidney failure, unspecified (2) Coronary artery disease Associated angina: without angina Coronary Disease-Associated Artery/Lesion type: [place] artery [place] vs. transplanted heart: [place] heart Qualified Code(s): I25.10 - Atherosclerotic heart disease of [place] coronary artery without angina pectoris (3) B-cell lymphoma 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 (4) Anemia Anemia type: due to chronic kidney disease Chronic kidney disease stage: stage 4 (severe) Qualified Code(s): N18.4 - Chronic kidney disease, stage 4 (s evere); D63.1 - Anemia in chronic kidney disease (5) GERD (gastroesophageal reflux disease) Esophagitis presence: without esophagitis Qualified Code(s): K21.9 - Gastro- esophageal reflux disease without esophagitis (6) HTN (hypertension) Hypertension type: essential hypertension Qualified Code(s): I10 - Essential (primary) hypertension
[2021-02-21] MEDS: ATORVASTATIN 40 MG TAB PO SCH (21:52)
[2021-02-21] MEDS: CLOPIDOGREL BISULFATE 75 MG TAB PO SCH (21:53)
[2021-02-21] MEDS: ASPIRIN 81 MG ECTAB PO SCH (21:53)
[2021-02-22 06:22] LABS: Creatinine Clr Calc Pharmacy 19.6 ml/min; Est GFR (African American) 19.8 ml/min; Est GFR (Non-African American) 17.1 ml/min; Potassium 4.7 mmol/L (3.5-5.1)
[2021-02-22] MEDS: HEPARIN SOD 5,000 UNIT/0.5 ML VIAL SQ SCH ×3 (06:25→22:20)
[2021-02-22] MEDS ORDERED: SODIUM CHLORIDE 0.9% 1000ML 1,000 ML IV SCH (08:00)
[2021-02-22] MEDS: dexAMETHasone 10 MG in SYRINGE 0 ML IV SCH (08:39)
[2021-02-22] MEDS: PANTOprazole 40 MG TAB PO SCH (08:39)
[2021-02-22] MEDS: FINASTERIDE 5 MG TAB PO SCH (08:39)
[2021-02-22] MEDS: ZINC SULFATE 220 MG CAPSULE PO SCH (08:39)
[2021-02-22] MEDS: NEPHROCAPS PO SCH (08:39)
[2021-02-22] MEDS: FERROUS SULFATE 325 MG TAB PO SCH ×2 (08:40→21:19)
[2021-02-22] MEDS: ATORVASTATIN 40 MG TAB PO SCH (21:19)
[2021-02-22] MEDS: ASPIRIN 81 MG ECTAB PO SCH (21:19)
[2021-02-22] MEDS: CLOPIDOGREL BISULFATE 75 MG TAB PO SCH (21:19)
--- NOTE | 2021-02-22 21:22 | Hospitalist Progress Note ---
Date of Service February 22, 2021 Assessment & Plan (1) Anorexia: Likely 2nd to COVID. can't rule out other underlying issue contributing. has flat affect but denies depression. added boost, nephrocaps, zinc to help with nutrition/appetite. impaired taste/smell likely contributing to this issue. He reports these are slowly improving. (2) Acute respiratory failure with hypoxia: 2nd COVID-19 pneumonia. improving slowly. Currently on 5 L NC O2 - cont to wean as tolerated. No known PE. No evidence of complicating bacterial superinfection. No complicating CHF at this time. See below. (3) Pneumonia due to COVID-19 virus: Patient's first day of symptoms was about 11 days ago (~02/10/2021). He is day 10 of 10 of IV dexamethasone. Can stop steroids today. Dexamethasone was increased to 10mg/day last Sunday due to worsening respiratory status. He was NOT a candidate for Remdesivir at time of admission due to renal function. Was not given Convalescent plasma earlier this stay. Was not a Tocilizumab candidate based on current guidelines. Continue aggressive pulmonary toilet and NC O2. Nursing performing chest PT. Appreciate their efforts on this. Previous attempts at diuresis have not led to clinical improvement and simply worsened his BUN & Cr. He is not overtly volume overloaded. (4) ARF (acute renal failure): KATHY on CKD stage IV baseline Cr 2.4 to 2.8 peak 3.3 Cr today 3.3 BUN markedly elevated - now >100 his oral intake since admission has been poor will cautiously given NS x 1 liter today repeat bmp in am (5) CKD (chronic kidney disease) stage 4, GFR 15-29 ml/min: CKD-4 at baseline repeat BMP in the morning (6) HTN (hypertension): controlled (7) Hypercholesteremia: Continue Atorvastatin 80 mg Ast/alt wnl (8) Coronary artery disease: No ischemic symptoms at this time Continue statin, aspirin and Plavix (9) PAD (peripheral artery disease): right femoral to posterior tibial bypass graft, by report, has re-stenosis no issues; no pain or symptoms continue statin, ASA, Plavix (10) Anemia: H/H acceptable (11) B-cell lymphoma: Completed his R-CHOP protocol for such in the past No evidence of any chest lymphadenopathy on CT chest earlier this spring (12) Pulmonary nodule: Screening CT scan done 12/21/20- 1. There is a single new 5 mm nodule within the base of the right lower lobe. The remaining scattered subcentimeter pulmonary nodules remain stable. This bears watching on future examinations. 2. Stable 1.5 cm branching tubular density within the left upper lobe which favors an impacted terminal bronchus. 3. No lymphadenopathy within the chest. would refer to [facility] Pulmonary nodule program post-d/c (13) MAEGAN (obstructive sleep apnea): not on NIPPV for such (14) GERD (gastroesophageal reflux disease): PPI (15) Weight loss: 8-9kg of weight loss since admission I do not believe this represents fluid weight loss he has eaten poorly since admission due to COVID infection continue nephrocaps and boost consider remeron liberalize diet allow outside food (16) DVT prophylaxis: heparin 5000 TID updated pt's and daughter by phone on 02/19/21, 02/21, and 02/23 cont PT, OT - needs rehab per their notes Admission and Anticipated Discharge Date Admission Date: February 13, 2021 Subjective patient ate 2 small slices of pizza brought by his son-in-law today appetite improved relative to yesterday he was in better spirits today he reported improved taste, smell, fatigue, and overall constitution scant cough mild TREVINO - no change ambulating to the bathroom to void asks about "when am I going home?" Review of Systems Constitutional: + fatigue; no fever and no chills Ear, Nose, Mouth, Throat: no nasal congestion and no sore throat Respiratory: + cough; no change in sputum and no sputum production Cardiovascular: no chest pain, no orthopnea and no edema Gastrointestinal: no abdominal pain, no nausea and no vomiting Physical Exam Constitutional: no acute distress and no altered mental status ENMT: external ear and nose normal, oropharynx normal Respiratory: no respiratory distress Auscultation: + diminished lung sounds (bases) and + crackles (scant b/l bases); no wheezes Cardiovascular: Rate/Rhythm: regular rate and regular rhythm Heart Sounds: normal S1 and normal S2; no murmur Vessels: posterior tibial pulses present and dorsalis pedis pulses present; no JVD Extremities: no edema Gastrointestinal (Abdomen): normal bowel sounds, soft, nontender, no hepatosplenomegaly Psychiatric: Orientation: alert and oriented x 3 Results & Data Results & Data ([facility]) Vital Signs (Past 12 Hours) Vital Signs Temp Pulse Resp BP Pulse Ox 02/22/21 15:22 36.3 C L 71 20 120/65 91 02/22/21 11:30 36.5 C 83 22 137/69 94 Laboratory Results Laboratory Results - last 24 hr 02/22/21 05:30 Sodium 141 Potassium 4.7 Chloride 111 H Carbon Dioxide 21 Anion Gap 9.0 BUN 106 H Creatinine 3.32 H Est Cr Clr Drug Dosing 19.6 Est GFR ( Amer) 19.8 Est GFR (Non-Af Amer) 17.1 BUN/Creatinine Ratio 32.0 H Glucose 93 Calcium 9.0 PG Care Time/CCT Total # of Minutes Spent Total Time Spent with Patient: Total time spent is greater than 50% in coordination of care (as documented) at patient's floor/unit and/or counseling patient: Coding Level of Care Code 90310 Subseq Hosp Care Lvl 2 Diagnoses Anorexia R63.0 Acute respiratory failure with hypoxia J96.01 Pneumonia due to COVID-19 virus U07.1; J12.82 ARF (acute renal failure) N17.9 Acute renal failure type: unspecified CKD (chronic kidney disease) stage 4, GFR 15-29 ml/min N18.4 HTN (hypertension) I10 Hypertension type: essential hypertension Hypercholesteremia E78.00 Coronary artery disease I25.10 Associated angina: without angina Coronary Disease-Associated Artery/Lesion type: [place] artery [place] vs. transplanted heart: [place] heart PAD (peripheral artery disease) I73.9 Anemia N18.4; D63.1 Anemia type: due to chronic kidney disease Chronic kidney disease stage: stage 4 (severe) B-cell lymphoma C83.38 B-cell lymphoma type: diffuse large B-cell Lymphoma site: multiple regions Pulmonary nodule R91.1 MAEGAN (obstructive sleep apnea) G47.33 GERD (gastroesophageal reflux disease) K21.9 Esophagitis presence: without esophagitis Weight loss R63.4 DVT prophylaxis Z29.9 (1) ARF (acute renal failure) Acute renal failure type: unspecified Qualified Code(s): N17.9 - Acute kidney failure, unspecified (2) Coronary artery disease Associated angina: without angina Coronary Disease-Associated Artery/Lesion type: [place] artery [place] vs. transplanted heart: [place] heart Qualified Code(s): I25.10 - Atherosclerotic heart disease of [place] coronary artery w ithout angina pectoris (3) B-cell lymphoma 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 (4) Anemia Anemia type: due to chronic kidney disease Chronic kidney disease stage: stage 4 (severe) Qualified Code(s): N18.4 - Chronic kidney disease, stage 4 (severe); D63.1 - Anemia in chronic kidney disease (5) GERD (gastroesophageal reflux disease) Esophagitis presence: without esophagitis Qualified Code(s): K21.9 - Gastro- esophageal reflux disease without esophagitis (6) HTN (hypertension) Hypertension type: essential hypertension Qualified Code(s): I10 - Essential (primary) hypertension
[2021-02-23] MEDS: HEPARIN SOD 5,000 UNIT/0.5 ML VIAL SQ SCH ×2 (06:21→17:09)
[2021-02-23 07:12] LABS: BUN Creatinine Ratio 30.6 (10-20); Calcium 8.8 mg/dl (8.5-10.1); Creatinine Clr Calc Pharmacy 20.2 ml/min; Est GFR (African American) 20.4 ml/min; Est GFR (Non-African American) 17.6 ml/min; Potassium 4.7 mmol/L (3.5-5.1)
[2021-02-23] MEDS: PANTOprazole 40 MG TAB PO SCH (08:24)
[2021-02-23] MEDS: FINASTERIDE 5 MG TAB PO SCH (08:24)
[2021-02-23] MEDS: CALCITRIOL 0.25 MCG CAPSULE PO SCH (08:24)
[2021-02-23] MEDS: FERROUS SULFATE 325 MG TAB PO SCH ×2 (08:24→21:19)
[2021-02-23] MEDS: NEPHROCAPS PO SCH (08:24)
[2021-02-23] MEDS: ZINC SULFATE 220 MG CAPSULE PO SCH (08:24)
[2021-02-23] MEDS: dexAMETHasone 10 MG in SYRINGE 0 ML IV SCH (08:24)
--- NOTE | 2021-02-23 13:30 | Ultrasound Report ---
BILATERAL LOWER EXTREMITY VENOUS DOPPLER CLINICAL HISTORY: elevated dimer, COVID, worsening hypoxia, eval DVT COMPARISON STUDY: No previous studies for comparison. TECHNIQUE: Sonography of the deep venous system of the bilateral lower extremities was performed. Co mpression and augmentation were evaluated. FINDINGS: There is no deep venous thrombus within the right lower extremity. The left common femoral, superficial femoral and popliteal veins are patent. Note is made of deep venous thrombus within the left posterior tibial and peroneal veins. IMPRESSION: 1. Deep venous thrombus within the left posterior tibial and peroneal veins. 2. No deep venous thrombus within the right lower extremity. ACT 112: Negative or not required by law. Electronically signed by: Virgil Pinzon M.D. 02/23/2021 1:28 PM
--- NOTE | 2021-02-23 14:02 | Hospitalist Progress Note ---
Date of Service February 23, 2021 Assessment & Plan (1) Left leg DVT: Acute LLE DVT. I suspect he likely has PEs and this may be the reason for escalating O2 requirements. He has no change in symptoms and no change in exam findings today. unfortunately heparin 5000 TID we were using for DVT prevention was not successful. stop SC heparin; change to standard heparin infusion with bolus. consider DOAC (eliquis) for oral therapy tomorrow. with respect to ruling in/out PEs - cannot obtain CTA chest due to renal function; would not perform VQ scan given his needing airborne isolation and the VQ scan is a long study. Additionally, trying to rule in/out PEs would not change our ultimate management. Thus, will simply assume he has PEs. plan 6 months of Rx. (2) Anorexia: Likely 2nd to COVID. can't rule out other underlying issue contributing. has flat affect - today he did openly admit he is falling into depression. start zoloft 25mg HS. added boost, nephrocaps, zinc to help with nutrition/appetite. impaired taste/smell likely contributing to this issue. He reports these are slowly improving. (3) Acute respiratory failure with hypoxia: 2nd COVID-19 pneumonia. Suspicion for PEs as well. Continue HFNC wall-mounted; maintain sats 90% or more. Still no evidence of complicating bacterial superinfection or CHF/pulm edema. Pulm toilet, etc. (4) Pneumonia due to COVID-19 virus: Patient's first day of symptoms was about 12 days ago (~02/10/2021). Has completed 10-day course of IV decadron. He was NOT a candidate for Remdesivir at time of admission due to renal function. Was not given Convalescent plasma earlier this stay. Was not a Tocilizumab candidate based on current guidelines. Continue aggressive pulmonary toilet and NC O2. Nursing performing chest PT. Appreciate their efforts on this. Previous attempts at diuresis have not led to clinical improvement and simply worsened his BUN & Cr. He is not overtly volume overloaded. Treat suspected PEs as above. (5) ARF (acute renal failure): KATHY on CKD stage IV baseline Cr 2.4 to 2.8 peak 3.3 Cr today 3.2 following gentle fluids yesterday BUN modestly improved with gentle fluids as well repeat bmp in am (6) CKD (chronic kidney disease) stage 4, GFR 15-29 ml/min: CKD-4 at baseline repeat BMP in the morning (7) HTN (hypertension): controlled (8) Hypercholesteremia: Continue Atorvastatin 80 mg Ast/alt wnl (9) Coronary artery disease: No ischemic symptoms at this time Continue statin, aspirin and Plavix (10) PAD (peripheral artery disease): right femoral to posterior tibial bypass graft, by report, has re-stenosis no issues; no pain or symptoms continue statin, ASA, Plavix (11) Anemia: H/H acceptable (12) B-cell lymphoma: Completed his R-CHOP protocol for such in the past No evidence of any chest lymphadenopathy on CT chest earlier this spring (13) Pulmonary nodule: Screening CT scan done 12/21/20- 1. There is a single new 5 mm nodule within the base of the right lower lobe. The remaining scattered subcentimeter pulmonary nodules remain stable. This bears watching on future examinations. 2. Stable 1.5 cm branching tubular density within the left upper lobe which favors an impacted terminal bronchus. 3. No lymphadenopathy within the chest. would refer to [facility] Pulmonary nodule program post-d/c (14) MAEGAN (obstructive sleep apnea): not on NIPPV for such (15) GERD (gastroesophageal reflux disease): PPI (16) Weight loss: significant weight loss since admission from COVID-induced anorexia -- 8- 9kg I do not believe this represents fluid weight loss he has eaten poorly since admission due to COVID infection continue nephrocaps and boost consider remeron diet liberalized allow outside food treat depression w/ zoloft (17) Severe protein-calorie malnutrition: as above in "weight loss" (18) Situational depression: start zoloft 25mg daily for about 1 week, then increase to 50mg (19) DVT prophylaxis: heparin infusion updated pt's and daughter by phone on 02/19/21, 02/21, 02/23 cont PT, OT - needs rehab per their notes family thinks he will not be agreeable Admission and Anticipated Discharge Date Admission Date: February 13, 2021 Subjective patient admits he is feeling depressed. he is a [employer], and he states "I'm not used to sitting around and not being able to do things." he is anxious to get home to his . he is ambulating to bathroom. despite change in O2 requirement overnight (increase from 5 to 13 liters) he denies any change in cough, dyspnea or TREVINO. no orthopnea. no pleuritic pain. denies any leg pain. I made him aware of DVT in left leg. eating modestly improved - family brought him [employer] pizza - ate 2-3 slices of it last pm. Review of Systems Constitutional: + fatigue and + anorexia; no fever, no chills and no body aches Ear, Nose, Mouth, Throat: no nasal congestion and no sore throat taste/smell gradually coming back Respiratory: + dyspnea on exertion; no hemoptysis and no pain on inspiration Cardiovascular: no chest pain, no dyspnea at rest and no edema Gastrointestinal: no abdominal pain, no nausea and no vomiting Physical Exam Constitutional: no acute distress and no altered mental status ENMT: external ear and nose normal, oropharynx normal Respiratory: no respiratory distress Auscultation: + diminished lung sounds (bases); no crackles and no wheezes Cardiovascular: Rate/Rhythm: regular rate and regular rhythm Heart Sounds: normal S1 and normal S2; no murmur Vessels: posterior tibial pulses present and dorsalis pedis pulses present; no JVD Extremities: no edema Gastrointestinal (Abdomen): normal bowel sounds, soft, nontender, no hepatosplenomegaly Psychiatric: Orientation: alert and oriented x 3 Affect: + flat affect Results & Data Results & Data ([facility]) Vital Signs (Past 12 Hours) Vital Signs Temp Pulse Resp BP Pulse Ox Pulse Ox 02/23/21 08:00 93 02/23/21 07:48 36.4 C L 76 113/54 L 98 02/23/21 03:00 37.0 C 60 16 144/73 H 98 98 Laboratory Results Laboratory Results - last 24 hr 02/23/21 06:38 Sodium 141 Potassium 4.7 Chloride 112 H Carbon Dioxide 22 Anion Gap 7.0 BUN 99 H Creatinine 3.24 H Est Cr Clr Drug Dosing 20.2 Est GFR ( Amer) 20.4 Est GFR (Non-Af Amer) 17.6 BUN/Creatinine Ratio 30.6 H Glucose 89 Calcium 8.8 Diagnostic Findings Venous Doppler Study 02/23/21 13:00 BILATERAL LOWER EXTREMITY VENOUS DOPPLER CLINICAL HISTORY: elevated dimer, COVID, worsening hypoxia, eval DVT COMPARISON STUDY: No previous studies for comparison. TECHNIQUE: Sonography of the deep venous system of the bilateral lower extremities was performed. Compression and augmentation were evaluated. FINDINGS: There is no deep venous thrombus within the right lower extremity. The left common femoral, superficial femoral and popliteal veins are patent. Note is made of deep venous thrombus within the left posterior tibial and peroneal veins. IMPRESSION: 1. Deep venous thrombus within the left posterior tibial and peroneal veins. 2. No deep venous thrombus within the right lower extremity. ACT 112: Negative or not required by law. Electronically signed by: Virgil Pinzon M.D. 02/23/2021 1:28 PM PG Care Time/CCT Total # of Minutes Spent Total Time Spent with Patient: Total time spent is greater than 50% in coordination of care (as documented) at patient's floor/unit and/or counseling patient: Coding Level of Care Code 38987 Subseq Hosp Care Lvl 3 Diagnoses Left leg DVT I82.402 Affected thrombotic vein of extremity: unspecified vein of extremity Chronicity: acute Anorexia R63.0 Acute respiratory failure with hypoxia J96.01 Pneumonia due to COVID-19 virus U07.1; J12.82 ARF (acute renal failure) N17.9 Acute renal failure type: unspecified CKD (chronic kidney disease) stage 4, GFR 15-29 ml/min N18.4 HTN (hypertension) I10 Hypertension type: essential hypertension Hypercholesteremia E78.00 Coronary artery disease I25.10 Associated angina: without angina Coronary Disease-Associated Artery/Lesion type: [place] artery [place] vs. transplanted heart: [place] heart PAD (peripheral artery disease) I73.9 Anemia N18.4; D63.1 Anemia type: due to chronic kidney disease Chronic kidney disease stage: stage 4 (severe) B-cell lymphoma C83.38 B-cell lymphoma type: diffuse large B-cell Lymphoma site: multiple regions Pulmonary nodule R91.1 MAEGAN (obstructive sleep apnea) G47.33 GERD (gastroesophageal reflux disease) K21.9 Esophagitis presence: without esophagitis Weight loss R63.4 Severe protein-calorie malnutrition E43 Situational depression F43.21 DVT prophylaxis Z29.9 (1) ARF (acute renal failure) Acute renal failure type: unspecified Qualified Code(s): N17.9 - Acute kidney failure, unspecified (2) Coronary artery disease Associated angina: without angina Coronary Disease-Associated Artery/Lesion type: [place] artery [place] vs. transplanted heart: [place] heart Qualified Code(s): I25.10 - Atherosclerotic heart disease of [place] coronary artery without angina pectoris (3) B-cell lymphoma 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 (4) Anemia Anemia type: due to chronic kidney disease Chronic kidney disease stage: stage 4 (severe) Qualified Code(s): N18.4 - Chronic kidney disease, stage 4 (severe); D63.1 - Anemia in chronic kidney disease (5) GERD (gastroesophageal reflux disease) Esophagitis presence: without esophagitis Qualified Code(s): K21.9 - Gastro- esophageal reflux disease without esophagitis (6) HTN (hypertension) Hypertension type: essential hypertension Qualified Code(s): I10 - Essential (primary) hypertension (7) Left leg DVT Affected thrombotic vein of extremity: unspecified vein of extremity Chronicity: acute Qualified Code(s): I82.402 - Acute embolism and thrombosis of unspecified deep veins of left lower extremity
[2021-02-23] MEDS ORDERED: Heparin IV Adult Wt-Based Standard WITH Bolus Protocol IV SCH (14:03)
[2021-02-23] MEDS ORDERED: HEPARIN SOD (PORCINE) 1000 UNIT/ML IV ONE (14:16)
[2021-02-23 16:23] LABS: Partial Thromboplastin Time 27.1 Seconds (21.0-31.0)
[2021-02-23] MEDS: HEPARIN SODIUM/DEXTROSE 25,000 UNITS/500 ML BAG IV SCH (16:47)
[2021-02-23] MEDS: SERTRALINE HCL 50 MG TABLET PO SCH (21:19)
[2021-02-23] MEDS: CLOPIDOGREL BISULFATE 75 MG TAB PO SCH (21:19)
[2021-02-23] MEDS: ATORVASTATIN 40 MG TAB PO SCH (21:19)
[2021-02-23] MEDS: ASPIRIN 81 MG ECTAB PO SCH (23:41)
[2021-02-23 23:46] LABS: Partial Thromboplastin Ratio > 5.3
[2021-02-23 23:57] LABS: Partial Thromboplastin Time > 139.0 Seconds (21.0-31.0)
[2021-02-24 02:31] LABS: Partial Thromboplastin Ratio 3.5
[2021-02-24 02:45] LABS: Partial Thromboplastin Time 91.1 Seconds (21.0-31.0)
[2021-02-24] MEDS: NEPHROCAPS PO SCH (08:43)
[2021-02-24] MEDS: FINASTERIDE 5 MG TAB PO SCH (08:43)
[2021-02-24] MEDS: FERROUS SULFATE 325 MG TAB PO SCH ×2 (08:43→21:02)
[2021-02-24] MEDS: PANTOprazole 40 MG TAB PO SCH (08:43)
[2021-02-24] MEDS: ZINC SULFATE 220 MG CAPSULE PO SCH (08:44)
[2021-02-24 09:16] LABS: Hemoglobin 11.1 g/dL (14.0-18.0); Mean Corpuscular Hemoglobin 30.2 pg (25-34); Mean Corpuscular Hgb Conc 32.6 g/dL (32-36); Mean Corpuscular Volume 92.4 fL (80-100); Mean Platelet Volume 9.2 fL (7.4-10.4); Platelet Count 332 K/uL (130-400); RDW Coefficient of Variation 15.1 % (11.5-14.5); RDW Standard Deviation 51.3 fL (36.4-46.3); Red Blood Count 3.68 M/uL (4.7-6.1); White Blood Count 17.49 K/uL (4.8-10.8)
[2021-02-24 09:29] LABS: D Dimer 1760 ug/L FEU (0-500)
[2021-02-24 09:41] LABS: BUN Creatinine Ratio 29.8 (10-20); C Reactive Protein 7.58 mg/dl (0-0.29); Calcium 8.1 mg/dl (8.5-10.1); Creatinine Clr Calc Pharmacy 20.9 ml/min; Est GFR (African American) 21.3 ml/min; Est GFR (Non-African American) 18.4 ml/min; Potassium 4.2 mmol/L (3.5-5.1)
[2021-02-24 10:27] LABS: Partial Thromboplastin Ratio 3.6
[2021-02-24 10:30] LABS: Partial Thromboplastin Time 95.6 Seconds (21.0-31.0)
[2021-02-24 18:33] LABS: Partial Thromboplastin Ratio 2.8
[2021-02-24 19:44] LABS: Partial Thromboplastin Time 72.8 Seconds (21.0-31.0)
--- NOTE | 2021-02-24 20:14 | XRay Report ---
XR chest 1V portable HISTORY: 76 years-old Male covid-19 pneumonia, worsening hypoxia acute hypoxia with shortness of gadiel ath COMPARISON: Chest radiograph 02/18/2021 TECHNIQUE: Portable AP view the chest FINDINGS: Left IJ Dlqpuu-m-[id number] catheter is unchanged. Cardiomegaly. Mixed interstitial and alveolar opacities are generally stable from comparison. No pneumothorax or large pleural effusion. Bones appear grossly intact. IMPRESSION: 1. Mixed interstitial and alveolar opacities appear generally stable from comparison. 2. Cardiomegaly. ACT 112: Negative or not required by law. The above report was generated using voice recognition software. It may contain grammatical, syntax o r spelling errors. Electronically signed by: Usama Villarreal M.D. 02/24/2021 8:13 PM
[2021-02-24] MEDS: SERTRALINE HCL 50 MG TABLET PO SCH (20:51)
[2021-02-24] MEDS: HEPARIN SODIUM/DEXTROSE 25,000 UNITS/500 ML BAG IV SCH (20:56)
[2021-02-24] MEDS: CLOPIDOGREL BISULFATE 75 MG TAB PO SCH (21:02)
[2021-02-24] MEDS: ASPIRIN 81 MG ECTAB PO SCH (21:02)
[2021-02-24] MEDS: ATORVASTATIN 40 MG TAB PO SCH (21:02)
--- NOTE | 2021-02-24 21:03 | Hospitalist Progress Note ---
Date of Service February 24, 2021 Assessment & Plan (1) Left leg DVT: Acute LLE DVT. I suspect he likely has PEs and this may be the reason for escalating O2 requirements over the last 48 hours despite no change in lung exam or his cxr unfortunately heparin 5000 TID we were using for DVT prevention was not successful. continue standard dose heparin infusion. consider DOAC (eliquis) for oral therapy. will need to investigate cost. dose would be 10mg BID x 1 week, then 5mg BID thereafter. with respect to ruling in/out PEs - cannot obtain CTA chest due to renal function; would not perform VQ scan given his needing airborne isolation and the VQ scan is a long study. Additionally, trying to rule in/out PEs would not change our ultimate management. Thus, will simply assume he has PEs. plan 6 months of Rx. (2) Anorexia: Likely 2nd to COVID. can't rule out other underlying issue contributing. depression suspected. added boost, nephrocaps, zinc to help with nutrition/appetite. impaired taste/smell likely contributing to this issue. He reports these are slowly improving. family bringing in food from home to help perk his appetite. (3) Acute respiratory failure with hypoxia: 2nd COVID-19 pneumonia. Suspicion for PEs as well. Continue HFNC wall-mounted; maintain sats 90% or more. Still no evidence of complicating bacterial superinfection or CHF/pulm edema. Repeat cxr today unchanged from prior imaging. Pulm toilet, etc. Patient states he cannot prone due to back pain. (4) Pneumonia due to COVID-19 virus: Patient's first day of symptoms was about 13 days ago (~02/10/2021). Has completed 10-day course of IV decadron. He was NOT a candidate for Remdesivir at time of admission due to renal function. Was not given Convalescent plasma earlier this stay. Was not a Tocilizumab candidate based on current guidelines. Continue aggressive pulmonary toilet and NC O2. Previous attempts at diuresis have not led to clinical improvement and simply worsened his BUN & Cr. He is not overtly volume overloaded. Treat suspected PEs as above. CXR today noted (no change from prior cxr). (5) ARF (acute renal failure): KATHY on CKD stage IV baseline Cr 2.4 to 2.8 peak 3.3 Cr today 3.1; BUN trending down as well repeat bmp in am (6) CKD (chronic kidney disease) stage 4, GFR 15-29 ml/min: CKD-4 at baseline repeat BMP in the morning (7) HTN (hypertension): controlled (8) Hypercholesteremia: Continue Atorvastatin 80 mg Ast/alt wnl (9) Coronary artery disease: No ischemic symptoms at this time Continue statin, aspirin and Plavix (10) PAD (peripheral artery disease): right femoral to posterior tibial bypass graft, by report, has re-stenosis no issues; no pain or symptoms continue statin, ASA, Plavix (11) Anemia: H/H acceptable (12) B-cell lymphoma: Completed his R-CHOP protocol for such in the past No evidence of any chest lymphadenopathy on CT chest earlier this spring (13) Pulmonary nodule: Screening CT scan done 12/21/20- 1. There is a single new 5 mm nodule within the base of the right lower lobe. The remaining scattered subcentimeter pulmonary nodules remain stable. This bears watching on future examinations. 2. Stable 1.5 cm branching tubular density within the left upper lobe which favors an impacted terminal bronchus. 3. No lymphadenopathy within the chest. would refer to [facility] Pulmonary nodule program post-d/c (14) MAEGAN (obstructive sleep apnea): not on NIPPV for such he has refused using BIPAP while here family reports he has CPAP (or BIPAP) at home but DOES NOT USE IT (15) GERD (gastroesophageal reflux disease): PPI (16) Weight loss: significant weight loss since admission from COVID-induced anorexia -- 8- 9kg if not more I do not believe this represents fluid weight loss he has eaten poorly since admission due to COVID infection continue nephrocaps and boost diet liberalized allow outside food treat depression w/ zoloft (17) Severe protein-calorie malnutrition: as above in "weight loss" (18) Situational depression: zoloft 25mg daily for about 1 week, then increase to 50mg initiated on 02/23/21 (19) DVT prophylaxis: heparin infusion updated pt's daughter by phone multiple times this week including tonight cont PT, OT - needs rehab per their notes family thinks he will not be agreeable Admission and Anticipated Discharge Date Admission Date: February 13, 2021 Subjective patient felt poorly this am when he tried to elaborate he couldn't really give me specifics however, the rest of the day has been uneventful during the visit his O2 sats were high 90s on 13 L wall-mounted HFNC I initially took him down to 10 L and his O2 sats stayed mid-90s at conclusion of my visit I took him down to 7 liters and sats stayed about 92/93% he denied any change in respiratory symptoms - TREVINO remains unchanged. minimal cough. no orthopnea. no pleuritic chest pain. appetite fair at best - no real change. spirits still down. no other new complaints Review of Systems Constitutional: + fatigue and + anorexia; no fever and no chills Ear, Nose, Mouth, Throat: taste/smell still impaired Respiratory: + cough; no sputum production and no wheezing Cardiovascular: no chest pain Gastrointestinal: no abdominal pain Physical Exam Constitutional: no acute distress and no altered mental status ENMT: external ear and nose normal, oropharynx normal Respiratory: no respiratory distress Auscultation: + diminished lung sounds (bases) and + crackles (Bases, scattered ); no wheezes Cardiovascular: Rate/Rhythm: regular rate and regular rhythm Heart Sounds: normal S1 and normal S2; no murmur Vessels: posterior tibial pulses present and dorsalis pedis pulses present; no JVD Extremities: + edema (1+ b/l ) Gastrointestinal (Abdomen): normal bowel sounds, soft, nontender, no hepatosp lenomegaly Psychiatric: Orientation: alert and oriented x 3 Affect: + flat affect Results & Data Results & Data ([facility]) Vital Signs (Past 12 Hours) Vital Signs Temp Pulse Resp BP Pulse Ox Pulse Ox 02/24/21 20:49 36.8 C 73 20 129/63 93 02/24/21 18:00 95 02/24/21 10:00 90 Laboratory Results Laboratory Results - last 24 hr 02/23/21 02/24/21 02/24/21 23:00 01:50 08:44 WBC RBC Hgb Hct MCV MCH MCHC RDW Std Deviation RDW Coeff of [place] Plt Count MPV APTT > 139.0 H* 91.1 H* 95.6 H* PTT Ratio > 5.3 3.5 3.6 D-Dimer Sodium Potassium Chloride Carbon Dioxide Anion Gap BUN Creatinine Est Cr Clr Drug Dosing Est GFR ( Amer) Est GFR (Non-Af Amer) BUN/Creatinine Ratio Glucose Calcium C-Reactive Protein 02/24/21 02/24/21 02/24/21 08:44 08:44 08:44 WBC 17.49 H RBC 3.68 L Hgb 11.1 L Hct 34.0 L MCV 92.4 MCH 30.2 MCHC 32.6 RDW Std Deviation 51.3 H RDW Coeff of [place] 15.1 H Plt Count 332 MPV 9.2 APTT PTT Ratio D-Dimer 1760 H* Sodium 139 Potassium 4.2 Chloride 110 H Carbon Dioxide 19 L Anion Gap 10.0 BUN 93 H Creatinine 3.12 H Est Cr Clr Drug Dosing 20.9 Est GFR ( Amer) 21.3 Est GFR (Non-Af Amer) 18.4 BUN/Creatinine Ratio 29.8 H Glucose 105 H Calcium 8.1 L C-Reactive Protein 7.58 H 02/24/21 18:03 WBC RBC Hgb Hct MCV MCH MCHC RDW Std Deviation RDW Coeff of [place] Plt Count MPV APTT 72.8 H* PTT Ratio 2.8 D-Dimer Sodium Potassium Chloride Carbon Dioxide Anion Gap BUN Creatinine Est Cr Clr Drug Dosing Est GFR ( Amer) Est GFR (Non-Af Amer) BUN/Creatinine Ratio Glucose Calcium C-Reactive Protein Diagnostic Findings Chest X-Ray 02/24/21 16:40 XR chest 1V portable HISTORY: 76 years-old Male covid-19 pneumonia, worsening hypoxia acute hypoxia with shortness of breath COMPARISON: Chest radiograph 02/18/2021 TECHNIQUE: Portable AP view the chest FINDINGS: Left IJ Iqfcup-y-Hxjg catheter is unchanged. Cardiomegaly. Mixed interstitial and alveolar opacities are generally stable from comparison. No pneumothorax or large pleural effusion. Bones appear grossly intact. IMPRESSION: 1. Mixed interstitial and alveolar opacities appear generally stable from comparison. 2. Cardiomegaly. ACT 112: Negative or not required by law. The above report was generated using voice recognition software. It may contain grammatical, syntax or spelling errors. Electronically signed by: Usama Villarreal M.D. 02/24/2021 8:13 PM PG Care Time/CCT Total # of Minutes Spent Total Time Spent with Patient: Total time spent is greater than 50% in coordination of care (as documented) at patient's floor/unit and/or counseling patient: Coding Level of Care Code 61090 Subseq Hosp Care Lvl 3 Diagnoses Left leg DVT I82.402 Affected thrombotic vein of extremity: unspecified vein of extremity Chronicity: acute Anorexia R63.0 Acute respiratory failure with hypoxia J96.01 Pneumonia due to COVID-19 virus U07.1; J12.82 ARF (acute renal failure) N17.9 Acute renal failure type: unspecified CKD (chronic kidney disease) stage 4, GFR 15-29 ml/min N18.4 HTN (hypertension) I10 Hypertension type: essential hypertension Hypercholesteremia E78.00 Coronary artery disease I25.10 Associated angina: without angina Coronary Disease-Associated Artery/Lesion type: [place] artery [place] vs. transplanted heart: [place] heart PAD (peripheral artery disease) I73.9 Anemia N18.4; D63.1 Anemia type: due to chronic kidney disease Chronic kidney disease stage: stage 4 (severe) B-cell lymphoma C83.38 B-cell lymphoma type: diffuse large B-cell Lymphoma site: multiple regions Pulmonary nodule R91.1 MAEGAN (obstructive sleep apnea) G47.33 GERD (gastroesophageal reflux disease) K21.9 Esophagitis presence: without esophagitis Weight loss R63.4 Severe protein-calorie malnutrition E43 Situational depression F43.21 DVT prophylaxis Z29.9 (1) ARF (acute renal failure) Acute renal failure type: unspecified Qualified Code(s): N17.9 - Acute kidney failure, unspecified (2) Coronary artery disease Associated angina: without angina Coronary Disease-Associated Artery/Lesion type: [place] artery [place] vs. transplanted heart: [place] heart Qualified Code(s): I25.10 - Atherosclerotic heart disease of [place] coronary artery without angina pectoris (3) B-cell lymphoma 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 (4) Anemia Anemia type: due to chronic kidney disease Chronic kidney disease stage: stage 4 (severe) Qualified Code(s): N18.4 - Chronic kidney disease, stage 4 (severe); D63.1 - Anemia in chronic kidney disease (5) Left leg DVT Affected thrombotic vein of extremity: unspecified vein of extremity Chronicity: acute Qualified Code(s): I82.402 - Acute embolism and thrombosis of unspecified deep veins of left lower extremity (6) GERD (gastroesophageal reflux disease) Esophagitis presence: without esophagitis Qualified Code(s): K21.9 - Gastro- esophageal reflux disease without esophagitis (7) HTN (hypertension) Hypertension type: essential hypertension Qualified Code(s): I10 - Essential (primary) hypertension
[2021-02-25 03:59] LABS: Partial Thromboplastin Ratio 2.4
[2021-02-25 04:26] LABS: Partial Thromboplastin Time 64.3 Seconds (21.0-31.0)
[2021-02-25 07:05] LABS: BUN Creatinine Ratio 28.2 (10-20); Calcium 8.6 mg/dl (8.5-10.1); Creatinine Clr Calc Pharmacy 21.6 ml/min; Est GFR (African American) 22.2 ml/min; Est GFR (Non-African American) 19.1 ml/min; Potassium 4.3 mmol/L (3.5-5.1)
[2021-02-25] MEDS: NEPHROCAPS PO SCH (08:02)
[2021-02-25] MEDS: ZINC SULFATE 220 MG CAPSULE PO SCH (08:02)
[2021-02-25] MEDS: FERROUS SULFATE 325 MG TAB PO SCH ×2 (08:02→20:49)
[2021-02-25] MEDS: PANTOprazole 40 MG TAB PO SCH (08:02)
[2021-02-25] MEDS: CALCITRIOL 0.25 MCG CAPSULE PO SCH (08:02)
[2021-02-25] MEDS: FINASTERIDE 5 MG TAB PO SCH (08:02)
[2021-02-25] MEDS: BUMETANIDE 1 MG TAB PO SCH (10:49)
--- NOTE | 2021-02-25 20:33 | Hospitalist Progress Note ---
Date of Service February 25, 2021 Assessment & Plan (1) Left leg DVT: Acute LLE DVT. I suspect he likely has PEs and this may been the reason for escalating O2 requirements he had in the middle of this week (was on 5 L, then suddenly was requiring 12-13 liters). unfortunately heparin 5000 TID we were using for DVT prevention was not successful. continue standard dose heparin infusion. consider DOAC (eliquis) for oral therapy. will need to investigate cost. dose would be 10mg BID x 1 week, then 5mg BID thereafter. would start tomorrow on Sunday. with respect to ruling in/out PEs - cannot obtain CTA chest due to renal function; would not perform VQ scan. Additionally, trying to rule in/out PEs would not change our ultimate management. Thus, will simply assume he has PEs. plan 6 months of Rx. (2) Anorexia: Likely 2nd to COVID. FINALLY improving. added boost, nephrocaps, zinc to help with nutrition/appetite. impaired taste/smell likely contributed to this issue. He reports these are slowly improving. (3) Acute respiratory failure with hypoxia: 2nd COVID-19 pneumonia. Suspicion for PEs as well - see above. IMPROVING. Continue HFNC wall-mounted; maintain sats 90% or more. I weaned him to 4 liters during the visit w/o difficulty. Still no evidence of complicating bacterial superinfection or CHF/pulm edema. Pulm toilet, etc. Patient states he cannot prone due to back pain. (4) Pneumonia due to COVID-19 virus: IMPROVING. Patient's first day of symptoms was about 14-15 days ago (~02/10/2021). Has completed 10-day course of IV decadron. He was NOT a candidate for Remdesivir at time of admission due to renal function. Was not given Convalescent plasma earlier this stay. Was not a Tocilizumab candidate based on current guidelines. Continue aggressive pulmonary toilet and NC O2; wean as tolerated. Treat suspected PEs as above. CXR yesterday noted (no change from prior cxr). Resume bumex 1mg po daily. BMP in am. (5) ARF (acute renal failure): KATHY on CKD stage IV baseline Cr 2.4 to 2.8 peak 3.3 Cr today 3.0; BUN trending down as well repeat bmp in am resume bumex 1mg po daily (6) CKD (chronic kidney disease) stage 4, GFR 15-29 ml/min: CKD-4 at baseline repeat BMP in the morning (7) HTN (hypertension): controlled (8) Hypercholesteremia: Continue Atorvastatin 80 mg Ast/alt wnl (9) Coronary artery disease: No ischemic symptoms at this time Continue statin, aspirin and Plavix (10) PAD (peripheral artery disease): right femoral to posterior tibial bypass graft, by report, has re-stenosis no issues; no pain or symptoms continue statin, ASA, Plavix (11) Anemia: H/H acceptable (12) B-cell lymphoma: Completed his R-CHOP protocol for such in the past No evidence of any chest lymphadenopathy on CT chest earlier this spring (13) Pulmonary nodule: Screening CT scan done 12/21/20- 1. There is a single new 5 mm nodule within the base of the right lower lobe. The remaining scattered subcentimeter pulmonary nodules remain stable. This bears watching on future examinations. 2. Stable 1.5 cm branching tubular density within the left upper lobe which favors an impacted terminal bronchus. 3. No lymphadenopathy within the chest. would refer to [facility] Pulmonary nodule program post-d/c (14) MAEGAN (obstructive sleep apnea): not on NIPPV for such he has refused using BIPAP while here family reports he has CPAP (or BIPAP) at home but DOES NOT USE IT (15) GERD (gastroesophageal reflux disease): PPI (16) Weight loss: significant weight loss since admission from COVID-induced anorexia -- 8- 9kg if not more I do not believe this represents fluid weight loss he has eaten poorly since admission due to COVID infection anorexia FINALLY resolved continue nephrocaps and boost continue liberalized hospital diet and outside food treat depression w/ zoloft (17) Severe protein-calorie malnutrition: as above in "weight loss" (18) Situational depression: zoloft 25mg daily for about 1 week, then increase to 50mg initiated on 02/23/21 tolerating thus far (19) DVT prophylaxis: heparin infusion; then eliquis therapeutic updated pt's daughter by phone multiple times this week left message for pt's this evening on voicemail cont PT, OT home w/ HH vs rehab?? spoke with infection fire control technician - can remove airborne isolation tomorrow on Sat Admission and Anticipated Discharge Date Admission Date: February 13, 2021 Subjective patient having a very good day today O2 requirement has been 5 liters; I took him down to 4 liters while in the room and 10 min later o2 sats stayed 92/93% he feels better his energy and appetite have improved he is ambulating to the bathroom without any assistance his cough is scant his TREVINO is improved staff report he has had "good pep" today asks about when he might discharge Review of Systems Constitutional: + fatigue; no fever, no chills and no anorexia Ear, Nose, Mouth, Throat: no nasal congestion and no sore throat Respiratory: + cough and + dyspnea on exertion; no sputum production Cardiovascular: no chest pain Gastrointestinal: no abdominal pain Physical Exam Constitutional: + well hydrated; no acute distress and no altered mental status best he has looked all week ENMT: external ear and nose normal, oropharynx normal Respiratory: no respiratory distress Auscultation: + diminished lung sounds (bases) and + crackles (Bases, scattered ); no wheezes Cardiovascular: Rate/Rhythm: regular rate and regular rhythm Heart Sounds: normal S1 and normal S2; no murmur Vessels: posterior tibial pulses present and dorsalis pedis pulses present; no JVD Extremities: no edema Gastrointestinal (Abdomen): normal bowel sounds, soft, nontender, no hepatosplenomegaly Psychiatric: Orientation: alert and oriented x 3 Results & Data Results & Data ([facility]) Vital Signs (Past 12 Hours) Vital Signs Vital Signs Temp Pulse Resp BP Pulse Ox Pulse Ox 02/25/21 14:00 95 02/25/21 08:00 36.6 C 78 22 134/64 93 02/25/21 07:46 93 02/25/21 04:00 36.6 C 76 20 109/56 L 97 02/25/21 00:19 36.6 C 69 18 121/52 L 97 02/24/21 20:49 36.8 C 73 20 129/63 93 Intake and Output 02/25/21 02/25/21 02/25/21 06:59 14:59 22:59 Intake Total 164 / 1610.05 400 / 500 100 / 500 Output Total 601 600 / 601 Balance 164 / 1309.05 399 / -101 -500 / -101 Intake: IV 114 / 410.05 Heparin Sodium/Dextrose 25,000 114 / 410.05 units In 500 ml @ 750 UNITS/HR 15 mls/hr IV .Q24H GAURI Rx#: [id number] Oral 50 / 1200 400 / 500 100 / 500 Output: Urine 600 / 600 # Bowel Movements Other: # Unmeasured Voids 4 Laboratory Results Laboratory Results - last 24 hr 02/25/21 02/25/21 03:15 06:11 APTT 64.3 H* PTT Ratio 2.4 Sodium 139 Potassium 4.3 Chloride 112 H Carbon Dioxide 19 L Anion Gap 8.0 BUN 85 H Creatinine 3.02 H Est Cr Clr Drug Dosing 21.6 Est GFR ( Amer) 22.2 Est GFR (Non-Af Amer) 19.1 BUN/Creatinine Ratio 28.2 H Glucose 108 H Calcium 8.6 PG Care Time/CCT Total # of Minutes Spent Total Time Spent with Patient: Total time spent is greater than 50% in coordination of care (as documented) at patient's floor/unit and/or counseling patient: Coding Level of Care Code 62080 Subseq Hosp Care Lvl 3 Diagnoses Left leg DVT I82.402 Affected thrombotic vein of extremity: unspecified vein of extremity Chronicity: acute Anorexia R63.0 Acute respiratory failure with hypoxia J96.01 Pneumonia due to COVID-19 virus U07.1; J12.82 ARF (acute renal failure) N17.9 Acute renal failure type: unspecified CKD (chronic kidney disease) stage 4, GFR 15-29 ml/min N18.4 HTN (hypertension) I10 Hypertension type: essential hypertension Hypercholesteremia E78.00 Coronary artery disease I25.10 Associated angina: without angina Coronary Disease-Associated Artery/Lesion type: [place] artery [place] vs. transplanted heart: [place] heart PAD (peripheral artery disease) I73.9 Anemia N18.4; D63.1 Anemia type: due to chronic kidney disease Chronic kidney disease stage: stage 4 (severe) B-cell lymphoma C83.38 B-cell lymphoma type: diffuse large B-cell Lymphoma site: multiple regions Pulmonary nodule R91.1 MAEGAN (obstructive sleep apnea) G47.33 GERD (gastroesophageal reflux disease) K21.9 Esophagitis presence: without esophagitis Weight loss R63.4 Severe protein-calorie malnutrition E43 Situational depression F43.21 DVT prophylaxis Z29.9 (1) ARF (acute renal failure) Acute renal failure type: unspecified Qualified Code(s): N17.9 - Acute kidney failure, unspecified (2) Coronary artery disease Associated angina: without angina Coronary Disease-Associated Artery/Lesion type: [place] artery [place] vs. transplanted heart: [place] heart Qualified Code(s): I25.10 - Atherosclerotic heart disease of [place] coronary artery without angina pectoris (3) B-cell lymphoma 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 (4) Anemia Anemia type: due to chronic kidney disease Chronic kidney disease stage: stage 4 (severe) Qualified Code(s): N18.4 - Chronic kidney disease, stage 4 (severe); D63.1 - Anemia in chronic kidney disease (5) Left leg DVT Affected thrombotic vein of extremity: unspecified vein of extremity Chronicity: acute Qualified Code(s): I82.402 - Acute embolism and thrombosis of unspecified deep veins of left lower extremity (6) GERD (gastroesophageal reflux disease) Esophagitis presence: without esophagitis Qualified Code(s): K21.9 - Gastro- esophageal reflux disease without esophagitis (7) HTN (hypertension) Hypertension type: essential hypertension Qualified Code(s): I10 - Essential (primary) hypertension
[2021-02-25] MEDS: CLOPIDOGREL BISULFATE 75 MG TAB PO SCH (20:49)
[2021-02-25] MEDS: SERTRALINE HCL 50 MG TABLET PO SCH (20:49)
[2021-02-25] MEDS: ATORVASTATIN 40 MG TAB PO SCH (20:49)
[2021-02-25] MEDS: ASPIRIN 81 MG ECTAB PO SCH (20:49)
[2021-02-26 06:19] LABS: BUN Creatinine Ratio 23.7 (10-20); Calcium 8.6 mg/dl (8.5-10.1); Creatinine Clr Calc Pharmacy 20.4 ml/min; Est GFR (African American) 20.7 ml/min; Est GFR (Non-African American) 17.8 ml/min; Potassium 4.3 mmol/L (3.5-5.1)
[2021-02-26 06:28] LABS: Partial Thromboplastin Ratio 1.7; Partial Thromboplastin Time 44.8 Seconds (21.0-31.0)
[2021-02-26] MEDS: HEPARIN SODIUM/DEXTROSE 25,000 UNITS/500 ML BAG IV SCH ×2 (07:14→17:15)
[2021-02-26] MEDS: PANTOprazole 40 MG TAB PO SCH (08:34)
[2021-02-26] MEDS: FERROUS SULFATE 325 MG TAB PO SCH ×2 (08:34→21:43)
[2021-02-26] MEDS: ZINC SULFATE 220 MG CAPSULE PO SCH (08:35)
[2021-02-26] MEDS: NEPHROCAPS PO SCH (08:35)
[2021-02-26] MEDS: BUMETANIDE 1 MG TAB PO SCH (08:35)
[2021-02-26] MEDS: FINASTERIDE 5 MG TAB PO SCH (08:35)
[2021-02-26 13:53] LABS: Partial Thromboplastin Ratio 1.8
[2021-02-26 14:27] LABS: Partial Thromboplastin Time 47.1 Seconds (21.0-31.0)
[2021-02-26] MEDS: APIXABAN 5 MG TABLET PO SCH (19:49)
[2021-02-26] MEDS: SERTRALINE HCL 50 MG TABLET PO SCH (19:50)
[2021-02-26] MEDS: ATORVASTATIN 40 MG TAB PO SCH (21:43)
[2021-02-26] MEDS: CLOPIDOGREL BISULFATE 75 MG TAB PO SCH (21:44)
--- NOTE | 2021-02-26 23:24 | Hospitalist Progress Note ---
Date of Service February 26, 2021 Assessment & Plan (1) Left leg DVT: Acute LLE DVT. I suspect he likely has PEs and this may have been the reason for escalating O2 requirements he had in the middle of this week (was on 5 L, then suddenly was requiring 12-13 liters). unfortunately heparin 5000 TID we were using for DVT prevention was not successful. pharmacy check for eliquis cost -- $47/month discussed this with patient - he can pay this doesn't want coumadin STOP heparin infusion start eliquis 10mg BID x 1 week, then 5mg BID thereafter. despite renal function he does not need dose adjustment per pharmacy with respect to ruling in/out PEs - cannot obtain CTA chest due to renal funct ion; would not perform VQ scan. Additionally, trying to rule in/out PEs would not change our ultimate management. Thus, will simply assume he has PEs. plan 6 months of Rx. (2) Anorexia: 2nd to COVID. finally resolved. taste/smell also resolved. cont boost, nephrocaps, zinc to help with nutrition/appetite. (3) Acute respiratory failure with hypoxia: 2nd COVID-19 pneumonia. Suspicion for PEs as well - see above. RESOLVED. Today he is satting low 90s in room air. Will need formal 2-step O2 test day of discharge (tomorrow hopefully). Still no evidence of complicating bacterial superinfection or CHF/pulm edema. (4) Pneumonia due to COVID-19 virus: IMPROVING/resolving. Patient's first day of symptoms was about 15 days ago (~02/10/2021). Has completed 10-day course of IV decadron. He was NOT a candidate for Remdesivir at time of admission due to renal function. Was not given Convalescent plasma earlier this stay. Was not a Tocilizumab candidate based on current guidelines. Treat suspected PEs as noted in "LLE DVT." Cont po bumex 1mg daily until discharge. Formal 2-step ambulatory O2 test on day of discharge. BMP in am. (5) ARF (acute renal failure): KATHY on CKD stage IV baseline Cr 2.4 to 2.8 peak 3.3 Cr today 3.2 BUN trending down albeit slowly repeat bmp in am (6) CKD (chronic kidney disease) stage 4, GFR 15-29 ml/min: CKD-4 at baseline repeat BMP in the morning (7) HTN (hypertension): controlled (8) Hypercholesteremia: Continue Atorvastatin 80 mg Ast/alt wnl (9) Coronary artery disease: No ischemic symptoms at this time Continue statin, aspirin and Plavix (10) PAD (peripheral artery disease): right femoral to posterior tibial bypass graft, by report, has re-stenosis no issues; no pain or symptoms continue statin, ASA, Plavix (11) Anemia: H/H acceptable (12) B-cell lymphoma: Completed his R-CHOP protocol for such in the past No evidence of any chest lymphadenopathy on CT chest earlier this spring (13) Pulmonary nodule: Screening CT scan done 12/21/20- 1. There is a single new 5 mm nodule within the base of the right lower lobe. The remaining scattered subcentimeter pulmonary nodules remain stable. This bears watching on future examinations. 2. Stable 1.5 cm branching tubular density within the left upper lobe which favo rs an impacted terminal bronchus. 3. No lymphadenopathy within the chest. would refer to [facility] Pulmonary nodule program post-d/c (14) MAEGAN (obstructive sleep apnea): not on NIPPV for such he has refused using BIPAP while here family reports he has CPAP (or BIPAP) at home but DOES NOT USE IT (15) GERD (gastroesophageal reflux disease): PPI (16) Weight loss: significant weight loss since admission from COVID-induced anorexia -- 8- 9kg if not more I do not believe this represents fluid weight loss anorexia FINALLY resolved continue nephrocaps and boost continue liberalized hospital diet and outside food treat depression w/ zoloft (17) Severe protein-calorie malnutrition: as above in "weight loss" (18) Situational depression: zoloft 25mg daily for about 1 week, then increase to 50mg initiated on 02/23/21 tolerating thus far spirits better last 1-2 days - simply from getting better on grand scale (19) DVT prophylaxis: transition to full-strength eliquis today updated pt's daughter by phone multiple times this week spoke with Mrs De La Cruz today - updated her, explained he potentially may be able to d/c home on SUNDAY she herself has COVID but is recovering well at home needs PT, OT on Sunday if does well then home w/ HH if he does not do well then rehab?? spoke with infection repairer controller tester yesterday -- we can remove airborne isolation today Admission and Anticipated Discharge Date Admission Date: February 13, 2021 Subjective patient voices he is "ready to get out of here" remains off of NC O2 he has minimal cough minimal TREVINO with walking to commode airborne isolation was d/c as of this am he is in good spirits he is eating much better taste/smell are back ! no new complaints explained to him that if he does well with PT/OT tomorrow he could get a 2-step O2 test and hopefully d/c home if cleared by therapy Review of Systems Constitutional: + fatigue; no fever, no chills, no body aches, no weakness and no anorexia Ear, Nose, Mouth, Throat: taste/smell have returned Respiratory: + cough and + dyspnea on exertion (Minimal ); no chest congestion and no sputum production Cardiovascular: no chest pain, no orthopnea and no edema Gastrointestinal: no nausea, no vomiting and no diarrhea/loose stools Physical Exam Constitutional: + well hydrated; no acute distress and no altered mental status ENMT: external ear and nose normal, oropharynx normal Respiratory: no respiratory distress Auscultation: + diminished lung sounds (bases - minimal) and + crackles (Bases, scattered ); no wheezes Cardiovascular: Rate/Rhythm: regular rate and regular rhythm Heart Sounds: normal S1 and normal S2; no murmur Vessels: posterior tibial pulses present and dorsalis pedis pulses present; no JVD Extremities: no edema Gastrointestinal (Abdomen): normal bowel sounds, soft, nontender, no hepatosplenomegaly Psychiatric: Orientation: alert and oriented x 3 Affect: + flat affect Results & Data Results & Data ([facility]) Vital Signs (Past 12 Hours) Vital Signs Temp Pulse Resp BP Pulse Ox Pulse Ox 02/26/21 22:41 37.0 C 79 18 106/65 90 02/26/21 21:51 36.6 C 90 16 133/72 90 02/26/21 15:03 36.4 C L 81 18 126/64 99 02/26/21 14:00 96 Laboratory Results Laboratory Results - last 24 hr 02/26/21 02/26/21 02/26/21 05:36 05:36 13:23 APTT 44.8 H 47.1 H* PTT Ratio 1.7 1.8 Sodium 141 Potassium 4.3 Chloride 112 H Carbon Dioxide 20 L Anion Gap 9.0 BUN 76 H Creatinine 3.20 H Est Cr Clr Drug Dosing 20.4 Est GFR ( Amer) 20.7 Est GFR (Non-Af Amer) 17.8 BUN/Creatinine Ratio 23.7 H Glucose 155 H POC Glucose Calcium 8.6 02/26/21 20:30 APTT PTT Ratio Sodium Potassium Chloride Carbon Dioxide Anion Gap BUN Creatinine Est Cr Clr Drug Dosing Est GFR ( Amer) Est GFR (Non-Af Amer) BUN/Creatinine Ratio Glucose POC Glucose 107 H Calcium PG Care Time/CCT Total # of Minutes Spent Total Time Spent with Patient: Total time spent is greater than 50% in coordination of care (as documented) at patient's floor/unit and/or counseling patient: Coding Level of Care Code 62494 Subseq Hosp Care Lvl 3 Diagnoses Left leg DVT I82.402 Affected thrombotic vein of extremity: unspecified vein of extremity Chronicity: acute Anorexia R63.0 Acute respiratory failure with hypoxia J96.01 Pneumonia due to COVID-19 virus U07.1; J12.82 ARF (acute renal failure) N17.9 Acute renal failure type: unspecified CKD (chronic kidney disease) stage 4, GFR 15-29 ml/min N18.4 HTN (hypertension) I10 Hypertension type: essential hypertension Hypercholesteremia E78.00 Coronary artery disease I25.10 Associated angina: without angina Coronary Disease-Associated Artery/Lesion type: [place] artery [place] vs. transplanted heart: [place] heart PAD (peripheral artery disease) I73.9 Anemia N18.4; D63.1 Anemia type: due to chronic kidney disease Chronic kidney disease stage: stage 4 (severe) B-cell lymphoma C83.38 B-cell lymphoma type: diffuse large B-cell Lymphoma site: multiple regions Pulmonary nodule R91.1 MAEGAN (obstructive sleep apnea) G47.33 GERD (gastroesophageal reflux disease) K21.9 Esophagitis presence: without esophagitis Weight loss R63.4 Severe protein-calorie malnutrition E43 Situational depression F43.21 DVT prophylaxis Z29.9 (1) ARF (acute renal failure) Acute renal failure type: unspecified Qualified Code(s): N17.9 - Acute kidney failure, unspecified (2) Coronary artery disease Associated angina: without angina Coronary Disease-Associated Artery/Lesion type: [place] artery [place] vs. transplanted heart: [place] heart Qualified Code(s): I25.10 - Atherosclerotic heart disease of [place] coronary artery without angina pectoris (3) B-cell lymphoma 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 (4) Anemia Anemia type: due to chronic kidney disease Chronic kidney disease stage: stage 4 (severe) Qualified Code(s): N18.4 - Chronic kidney disease, stage 4 (severe); D63.1 - Anemia in chronic kidney disease (5) Left leg DVT Affected thrombotic vein of extremity: unspecified vein of extremity Chronicity: acute Qualified Code(s): I82.402 - Acute embolism and thrombosis of unspecified deep veins of left lower extremity (6) GERD (gastroesophageal reflux disease) Esophagitis presence: without esophagitis Qualified Code(s): K21.9 - Gastro- esophageal reflux disease without esophagitis (7) HTN (hypertension) Hypertension type: essential hypertension Qualified Code(s): I10 - Essential (primary) hypertension
[2021-02-27 08:01] LABS: BUN Creatinine Ratio 24.7 (10-20); Calcium 8.3 mg/dl (8.5-10.1); Creatinine Clr Calc Pharmacy 21.1 ml/min; Est GFR (African American) 21.5 ml/min; Est GFR (Non-African American) 18.5 ml/min; Potassium 4.4 mmol/L (3.5-5.1)
[2021-02-27 08:33] LABS: Hematocrit (blood only) 34.7 % (42-52); Hemoglobin 11.4 g/dL (14.0-18.0); Mean Corpuscular Hemoglobin 30.1 pg (25-34); Mean Corpuscular Hgb Conc 32.9 g/dL (32-36); Mean Corpuscular Volume 91.6 fL (80-100); Mean Platelet Volume 9.7 fL (7.4-10.4); Platelet Count 310 K/uL (130-400); RDW Standard Deviation 50.8 fL (36.4-46.3); Red Blood Count 3.79 M/uL (4.7-6.1); White Blood Count 11.52 K/uL (4.8-10.8)
[2021-02-27 08:44] LABS: Albumin Globulin Ratio 0.5 (0.9-2); Albumin Level 2.1 gm/dl (3.4-5.0); Bilirubin,Total 0.4 mg/dl (0.2-1); Globulin 4.2 gm/dl (2.5-4.0); Magnesium 2.1 mg/dl (1.8-2.4); Total Protein 6.3 gm/dl (6.4-8.2)
[2021-02-27] MEDS: FINASTERIDE 5 MG TAB PO SCH (08:46)
[2021-02-27] MEDS: PANTOprazole 40 MG TAB PO SCH (08:46)
[2021-02-27] MEDS: ZINC SULFATE 220 MG CAPSULE PO SCH (08:47)
[2021-02-27] MEDS: NEPHROCAPS PO SCH (08:47)
[2021-02-27] MEDS: APIXABAN 5 MG TABLET PO SCH (08:47)
[2021-02-27] MEDS: FERROUS SULFATE 325 MG TAB PO SCH (08:48)
[2021-02-27] MEDS: BUMETANIDE 1 MG TAB PO SCH (08:48)
--- NOTE | 2021-02-27 17:54 | Discharge Summary ---
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 He has a right forearm AV fistula in place. He has not needed recent dialysis, anemia of chronic disease as well as low iron. HTN (he has stopped taking his Cardizem), Right common fem-post tib bypass graft 2013, CAD with heart stent in 1989. Patient comes in today for not feeling well since . He originally started with low grade fevers and a headache, with increasing in fatigue. On Sunday he started to experience increase in cough as well as diarrhea. His diarrhea is brown to liquid semi formed, with no blood, and reported no association with food. This has also caused him to decrease oral intake because it would make him go to the bathroom. He was brought into the hospital by his and daughter to the [facility]. Patient is unsure where he may have contracted the virus at. However, he was out to the [employer] on and his son and grandson visit to help [place] on the farm. His other grandson has COVID, but he reports not seeing him for a couple of weeks. In the ER he was noted to have a low SPO2 on room air to 89% was placed on 2LNC and started on Decadron. He has a CXR performed with atelectasis and pulmonary congestion, routine blood with slight increase in renal indices. he received 500ml of 0.9% Saline in the ER. He will be admitted for COVID, follow his pulmonary function, BP, and renal function. Principal Diagnosis Covid-19 Discharge Exam Constitutional WD/WN, vitals as above Eyes EOM intact bilaterally; no conjunctival abnormality ENMT external ear and nose normal, oropharynx normal Neck trachea midline, no thyromegaly normal visual inspection Respiratory normal respiratory effort, lungs clear to auscultation no respiratory distress Cardiovascular RRR, no murmur, no edema Gastrointestinal (Abdomen) Inspection/Auscultation: abdomen normal to inspection; abdomen not distended Musculoskeletal no cyanosis or clubbing, extremities motor strength 5/5 Skin no rashes, warm and dry Neurologic moves all extremities and awake Psychiatric Orientation: alert, oriented to person and cooperative Discharge Data Allergies Allergy/AdvReac Type Severity Reaction Status Date / Time No Known Drug Allergies Allergy Unknown NKDA Verified 02/13/21 13:06 Consultations 02/13/21 13:18 ED Decision to Admit Stat Ordered Studies 02/16/21 11:13 FL a-port check Routine 02/23/21 13:00 US venous doppler LE BI Routine Hospital Course (1) Left leg DVT: Acute LLE DVT. I suspect he likely has PEs and this may have been the reason for escalating O2 requirements he had in the middle of this week (was on 5 L, then suddenly was requiring 12-13 liters). pharmacy check for eliquis cost -- $47/month with respect to ruling in/out PEs - cannot obtain CTA chest due to renal function; would not perform VQ scan. Additionally, trying to rule in/out PEs would not change our ultimate management. Thus, will simply assume he has PEs. plan 6 months of Rx. (2) Anorexia: 2nd to COVID. finally resolved. taste/smell also resolved. cont boost, nephrocaps, zinc to help with nutrition/appetite. (3) Acute respiratory failure with hypoxia: 2nd COVID-19 pneumonia. Suspicion for PEs as well - see above. RESOLVED. Today he is satting low 90s in room air. Will need formal 2-step O2 test day of discharge (tomorrow hopefully). Still no evidence of complicating bacterial superinfection or CHF/pulm edema. (4) Pneumonia due to COVID-19 virus: IMPROVING/resolving. Patient's first day of symptoms was about 15 days ago (~02/10/2021). Has completed 10-day course of IV decadron. He was NOT a candidate for Remdesivir at time of admission due to renal function. Was not given Convalescent plasma earlier this stay. Was not a Tocilizumab candidate based on current guidelines. Treat suspected PEs as noted in "LLE DVT." Cont po bumex 1mg daily until discharge. Formal 2-step ambulatory O2 test on day of discharge. -> Went home with home O2. (5) ARF (acute renal failure): KATHY on CKD stage IV baseline Cr 2.4 to 2.8 peak 3.3 Cr today 3.1 (6) CKD (chronic kidney disease) stage 4, GFR 15-29 ml/min: CKD-4 at baseline repeat BMP in the morning (7) HTN (hypertension): controlled (8) Hypercholesteremia: Continue Atorvastatin 80 mg Ast/alt wnl (9) Coronary artery disease: No ischemic symptoms at this time Continue statin, aspirin - STOPPED Plavix to avoid triple therapy with Eliquis. (10) PAD (peripheral artery disease): right femoral to posterior tibial bypass graft, by report, has re-stenosis no issues; no pain or symptoms continue statin, ASA - STOPPED Plavix to avoid triple therapy with Eliquis. (11) Anemia: H/H acceptable (12) B-cell lymphoma: Completed his R-CHOP protocol for such in the past No evidence of any chest lymphadenopathy on CT chest earlier this spring (13) Pulmonary nodule: Screening CT scan done 12/21/20- 1. There is a single new 5 mm nodule within the base of the right lower lobe. The remaining scattered subcentimeter pulmonary nodules remain stable. This bears watching on future examinations. 2. Stable 1.5 cm branching tubular density within the left upper lobe which favors an impacted terminal bronchus. 3. No lymphadenopathy within the chest. would refer to [facility] Pulmonary nodule program post-d/c (14) MAEGAN (obstructive sleep apnea): not on NIPPV for such he has refused using BIPAP while here family reports he has CPAP (or BIPAP) at home but DOES NOT USE IT (15) GERD (gastroesophageal reflux disease): PPI (16) Weight loss: significant weight loss since admission from COVID-induced anorexia -- 8- 9kg if not more I do not believe this represents fluid weight loss anorexia FINALLY resolved continue nephrocaps and boost continue liberalized hospital diet and outside food treat depression w/ zoloft (17) Severe protein-calorie malnutrition: as above in "weight loss" (18) Situational depression: zoloft 25mg daily for about 1 week, then increase to 50mg initiated on 02/23/21 tolerating thus far I think this was probably not needed on discharge. His spirits were good as he was returning home. (19) DVT prophylaxis: transition to full-strength eliquis today Total Time Total Time Spent Total Time Spent (In Minutes): 35 Discharge Plan Discharge Items Patient Disposition: Home - Self-Care Reason For Visit: COVID Discharge Diagnosis: Covid-19 pneumonia Activity: Resume your previous activity Activity Comment: Gradually increase as tolerated Non-emergency contact: Primary Care Provider Call non-emergency contact if: your symptoms worsen Follow-up/Referrals: Reanna Kearns MD [Physician] - (Please see Dr. Kearns for a kidney check in 1-2 weeks.) Vinod Pang [Primary Care Provider] - Diet: Dialysis Renal and Heart Healthy Addtl Attending Provider Instructions: You were admitted to the hospital with Covid-19. You were quite ill and were awfully close to needing a breathing tube, but this was avoided. This is great news that you are recovering and breathing better! Covid can cause blood clots, and we found a blood clot in your leg. We are giving you a blood thinner called Eliquis to help dissolve this clot. You will probably need this blood thinner for at least 3 months, and possibly longer. For the Eliquis (apixaban) take two (2) tablets twice a day for 4 more days, then take one (1) tablet twice a day after that. You will switch to one tablet twice a day on Sunday, March 04. You are already on aspirin and Plavix (also called clopidogrel) for your heart health and health of the blood vessels in your legs. We are going to stop the Plavix because we wouldn't want your blood to be too thin. Finally, we stopped your diltiazem (also called Cardizem) because with everything you've been through in the hospital, your blood pressure and heart rate are stable without it. Your PCP may restart this eventually as you feel better and get back to normal. Please see Dr. Kearns for a kidney check in 1-2 weeks. Please see your PCP this week just to be sure you're doing well once you get home. Pending Studies at Discharge: No Stand-Alone Forms: My [employer], Smoking Cessation Medications and DC Order Prescriptions: New Eliquis 5 mg Tablet 10 mg PO BID Qty: 68 RF: 0 Continued atorvastatin [Lipitor] 80 mg Tablet 80 mg PO HS Qty: 0 RF: 0 Procrit 20,000 unit/mL solution 20,000 unit subcut MONTHLY Qty: 1 RF: 11 calcitriol 0.5 mcg capsule 0.5 mcg PO UD Qty: 45 RF: 3 ferrous sulfate 325 mg (65 mg iron) tablet 325 mg PO BID Qty: 180 RF: 3 finasteride 5 mg tablet 5 mg PO QAM RF: 0 aspirin [Aspir-81] 81 mg Tablet,Delayed Release (Dr/Ec) 81 mg PO QPM RF: 0 Discontinued diltiazem HCl 180 mg capsule,extended release 24 hr 180 mg PO DAILY RF: 0 clopidogrel 75 mg tablet 75 mg PO QPM RF: 0 Discharge Orders: Discharge Order (Routine); Ordered 02/27/21 Ordered By: Quique Lynn/Other Patient Handouts: COVID-19 Home Care, Low Potassium Diet Dc Admission Data Admit Date/Time: 02/13/21 14:34 Attending Provider: Quique Gallagher Admit Provider: Vinod Gagnon Primary Care Provider: Vinod Pang Other Providers: Quique Gallagher Other Interventions: Discharge Summary Assessment (RN) Last Done: 02/27/21 13:26 Coding Level of Care Code D/C Day Management >30 mins Diagnoses Left leg DVT I82.402 Affected thrombotic vein of extremity: unspecified vein of extremity Chronicity: acute Anorexia R63.0 Acute respiratory failure with hypoxia J96.01 Pneumonia due to COVID-19 virus U07.1; J12.82 ARF (acute renal failure) N17.9 Acute renal failure type: unspecified CKD (chronic kidney disease) stage 4, GFR 15-29 ml/min N18.4 HTN (hypertension) I10 Hypertension type: essential hypertension Hypercholesteremia E78.00 Coronary artery disease I25.10 Coronary Disease-Associated Artery/Lesion type: [place] artery [place] vs. transplanted heart: [place] heart Associated angina: without angina PAD (peripheral artery disease) I73.9 Anemia N18.4; D63.1 Anemia type: due to chronic kidney disease Chronic kidney disease stage: stage 4 (severe) B-cell lymphoma C83.38 B-cell lymphoma type: diffuse large B-cell Lymphoma site: multiple regions Pulmonary nodule R91.1 MAEGAN (obstructive sleep apnea) G47.33 GERD (gastroesophageal reflux disease) K21.9 Esophagitis presence: without esophagitis Weight loss R63.4 Severe protein-calorie malnutrition E43 Situational depression F43.21 DVT prophylaxis Z29.9
== END 2021-02-27 15:48 | disposition home or self-care (01) | DRG 177 ==
LOC: ED 10:50 → 2E 14:34 → SUATTDRO 14:34 → 2E 15:38 → 3N 02-26 18:57

== ENCOUNTER 2022-08-06 09:13 | Inpatient (IN) ==
--- NOTE | 2022-08-06 09:38 | Emergency Department Note ---
Impression & Plan Hypoxia DC ED Provider Note HPI: The patient is a 77-year-old male with history of interstitial lung disease, COPD, on home oxygen, presents emergency department with worsening shortness of breath over the past several days. Patient states he is also had a cough. Geraldo woodward is at the bedside, states that the patient has had severe shortness of breath that worsens with exertion. On arrival here to the ED the patient was noted to have hypoxia 78% with ambulation back to the room, he was placed on nasal cannula oxygen at rest with good improvement to oxygen saturations in the high 90s. Patient denies any chest pain. He states he does have some baseline shortness of breath. Denies any recent fever but he has had a slight cough. Patient is otherwise with stable blood pressure and heart rate within normal limits on arrival. ROS: -Pulmonary: Shortness of breath *10 point review systems was conducted and is otherwise negative unless stated above *Outpatient medications and allergy history reviewed PE: General: Alert HEENT: Normocephalic, trachea midline Eyes: Extraocular eye movement is intact, no scleral erythema Pulmonary: Clear to auscultation bilaterally, no wheezing Cardio: Regular rate and rhythm GI: Abdomen is soft, nontender : No suprapubic tenderness MSK: No evidence of trauma or malformation of the extremities, no edema Skin: No evidence of rash Neuro: Alert, no focal deficits Psychiatric: Cooperative conveyor monitor: - An order was placed for continuous cardiac monitoring - Patient was noted to be in normal sinus rhythm with a rate of 75 EKG: Rate: 76 Rhythm: Normal sinus rhythm Intervals: Within normal limits ST changes: No ST elevation Time: 0940 Interventions provided in ED: -IV Solu-Medrol, DuoNeb breathing treatment Medical Decision Making: Patient presented to the emergency department with worsening shortness of breath on exertion. Shortly after arrival IV was established, lab work obtained, latisha thurman was placed on conveyor monitor, maintained on nasal cannula oxygen with good improvement in his initially hypoxic oxygen saturations. Chest x-ray shows some interstitial thickening without evidence of pneumonia, lab work shows slight high-sensitivity troponin level at 30.4, worsening renal failure 3.54 (baseline around 2.8-2.9). EKG does not show any acute ischemic changes. Patient denies any active chest pain. Doubt ACS at this time BNP is mildly elevated at 259, chest x-ray does not show any obvious evidence of pulmonary edema, I am favoring interstitial lung disease at this time as the source of the patient's hypoxia as opposed to CHF exacerbation, this is consistent with his previous presentations for outpatient visit note to cardiology. Patient was given IV steroids and a DuoNeb breathing treatment here in the ED with good improvement in his symptoms. He remained stable on nasal cannula oxygen. I discussed all the above findings with the patient and his family members at the bedside, at this time I feel that he is appropriate for admission given his hypoxia with supplemental oxygen requirement and lab abnormalities. Case was discussed with the on-call midlevel provider for Chasidy LAY and the patient was admitted in stable condition for further care. -Critical care time: 33 minutes Stabilization of hypoxia with oxygen saturations less than 90% on room air requiring supplemental oxygen for improvement, time spent at the bedside, interpretation of EKG and diagnostic studies, discussion with family, discussion with other healthcare providers and arrangement of admission Diagnosis: 1. Hypoxia 2. COPD exacerbation with hypoxia, moderate 3. Elevated high-sensitivity troponin level 4. Acute on chronic kidney injury Disposition: Admission Nickolas Kirby DO Emergency Medicine Past Med/Surg History Medical History Anemia ARF (acute renal failure) 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 Chronic back pain Chronic renal disease, stage IV Coronary artery disease Deep vein thrombosis Deep vein thrombosis ~ Depression Hearing deficit Hemodialysis patient LAST DIAYLSIS FEBRUARY 11, 2019. NEPHROLOGY HAS STOPPED DIAYLSIS FOR THE TIME. Hyperkalemia Hypertension Liver mass Metabolic acidosis On anticoagulant therapy Osteoarthritis Peripheral neuropathy Peripheral vascular disease Pneumonia 3 YRS AGO Secondary hyperparathyroidism of renal origin Sleep apnea NON-COMPLIANT Vitamin D deficiency Surgical History H/O vascular surgery REMOVAL OF DVT History of cardiac cath X1. FOLLOWS WITH DR JOYNER History of colonoscopy History of esophagogastroduodenoscopy (EGD) History of heart artery stent History of lumbar discectomy History of umbilical hernia repair S/P femoral-femoral bypass surgery RIGHT LEG Family History Mother FHx: lung cancer FHx: uterine cancer Other Allergy Cancer Diabetes Heart disease Lung cancer Lung disease Denies family history of Tuberculosis Emphysema of lung Asthma Social History Smoking Status: Former smoker Tobacco Type: Cigarettes packs per day: 1; Number of Years Since Quit: 25; Second Hand Exposure: No; Hx Alcohol Use: No Hx Substance Use: No Preferred Language: Estonian Communication Ability: Effective Tile Classifier Required: No Beliefs That Will Affect Care: None Current Living Situation: Spouse Feels Safe at Home: Yes Assistive Devices: Glasses Allergies Allergies Allergy/AdvReac Type Severity Reaction Status Date / Time No Known Drug Allergies Allergy Unknown NKDA Verified 06/21/22 13:59 Home Meds Home Medications Medication Instructions Recorded Confirmed atorvastatin 80 mg tablet (Lipitor) 80 mg PO HS #0 tabs 12/21/14 08/06/22 finasteride 5 mg tablet 5 mg PO QAM 12/04/18 08/06/22 aspirin 81 mg tablet,delayed 81 mg PO QPM 12/26/18 08/06/22 release (Aspir-) clopidogrel 75 mg tablet 75 mg PO DAILY 09/15/21 08/06/22 ferrous sulfate 325 mg (65 mg 650 mg PO .COMPLEX 12/20/21 08/06/22 iron) tablet citalopram 20 mg tablet 20 mg PO DAILY 08/06/22 08/06/22 Previous Rx's Medication Instructions Recorded albuterol sulfate 90 mcg/actuation 2 puff inhalation Q6H PRN 06/21/22 aerosol inhaler Shortness Of Breath Or Wheezing #18 grams epoetin neptali 20,000 unit/mL 20,000 unit subcut MONTHLY #1 mL 06/29/22 injection solution (Procrit) fluticasone fur. 100 mcg-umeclid 1 inh inhalation DAILY #60 ea 07/10/22 62.5 mcg-vilant 25 mcg inhalat.powder (Trelegy Ellipta) Results & Data (ED) Vital Signs Vital Signs - 24 hr 08/06/22 09:34 08/06/22 09:34 08/06/22 09:34 Temperature 36.9 C Temperature Source Oral Pulse Rate 76 Pulse Rate [Apical] Pulse Rhythm Regular Pulse Strength Normal Respiratory Rate 20 Respiratory Effort / Characteristics Non-Labored Spontaneous Non-Labored Spontaneous Respiratory Depth Normal Normal Respiratory Pattern Regular Blood Pressure 134/71 Blood Pressure [Right Arm] Blood Pressure Mean 92 Blood Pressure Mean [Right Arm] Blood Pressure Position Sitting Pulse Oximetry 78 L 78 L Oxygen Delivery Method Room Air Room Air Oxygen Flow Rate Sepsis Recent Fever Within 48 Hours No Sepsis New/Unexplained Change in Mental Status N/A Sepsis Action Taken by Nursing No Action Required 08/06/22 09:40 08/06/22 11:26 Temperature Temperature Source Pulse Rate 76 Pulse Rate [Apical] 76 Pulse Rhythm Regular Pulse Strength Respiratory Rate 20 20 Respiratory Effort / Characteristics Respiratory Depth Respiratory Pattern Blood Pressure Blood Pressure [Right Arm] 144/69 H Blood Pressure Mean Blood Pressure Mean [Right Arm] 94 Blood Pressure Position Pulse Oximetry 96 97 Oxygen Delivery Method Nasal Cannula Nasal Cannula Oxygen Flow Rate 3 3 Sepsis Recent Fever Within 48 Hours Sepsis New/Unexplained Change in Mental Status Sepsis Action Taken by Nursing Laboratory Data Result diagrams: 08/06/22 09:40 08/06/22 09:40 Lab Results 08/06/22 08/06/22 08/06/22 Range/Units 09:40 09:40 09:40 WBC 9.69 (4.8-10.8) K/ul RBC 3.71 L (4.63-6.08) M/uL Hgb 11.6 L (14.0-18.0) g/dl Hct 35.7 L (40.1-51.0) % MCV 96.2 (80.0-100.0) fL MCH 31.3 (25.0-34.0) pg MCHC 32.5 (32.0-36.0) g/dL RDW Std Deviation 52.1 H (36.4-46.3) fL RDW Coeff of [place] 14.9 H (11.5-14.5) % Plt Count 239 (130-400) K/uL MPV 9.0 L (9.4-12.4) fL Immature Gran % (Auto) 0.5 % Neut % (Auto) 80.7 % Lymph % (Auto) 4.4 % [place] % (Auto) 11.0 % Eos % (Auto) 2.8 % Baso % (Auto) 0.6 % Neut # (Auto) 7.81 H (1.4-6.5) K/uL Lymph # (Auto) 0.43 L (1.2-3.4) K/uL [place] # (Auto) 1.07 H (0.24-0.82) K/uL Eos # (Auto) 0.27 (0-0.50) K/uL Baso # (Auto) 0.06 (0-0.2) K/uL Immature Gran # (Auto) 0.05 H (0.00-0.02) K/uL PT 11.2 (9.0-12.0) Seconds INR 1.1 (0.9-1.1) APTT 31.9 H (21.0-31.0) Seconds PTT Ratio 1.2 VBG pH (7.36-7.41) VBG pCO2 (38-50) mmHg VBG pO2 mmHg VBG HCO3 mmol/L VBG O2 Saturation % VBG Base Excess mEq/L Sodium 139 (136-145) mmol/L Potassium 4.2 (3.5-5.1) mmol/L Chloride 106 (98-107) mmol/L Carbon Dioxide 26 (21-32) mmol/L Anion Gap 7 (3-11) BUN 54 H (6-23) mg/dl Creatinine 3.54 H (0.6-1.4) mg/dl Est Cr Clr Drug Dosing 19.2 ml/min Est GFR ( Amer) 18.2 ml/min Est GFR (Non-Af Amer) 15.7 ml/min BUN/Creatinine Ratio 15.3 (10-20) Glucose 105 H (70-99(Fasting)) mg/dl Calcium 10.0 (8.5-10.1) mg/dl Total Bilirubin 0.6 (0.2-1.0) mg/dl AST 14 (13-39) U/L ALT 16 (7-52) U/L Alkaline Phosphatase 51 (34-104) U/L Troponin I High Sens 30.4 H (0-20) pg/ml B-Natriuretic Peptide (0-100) pg/ml Total Protein 6.5 (6.0-8.3) gm/dl Albumin 3.7 (3.4-5.0) gm/dl Globulin 2.8 (2.5-4.0) gm/dl Albumin/Globulin Ratio 1.3 (0.9-2) SARS-CoV-2 (PCR) (Negative) Influenza Type A (PCR) (Neg) Influenza Type B (PCR) (Neg) RSV (RT-PCR) (Neg) 08/06/22 08/06/22 08/06/22 Range/Units 09:40 09:46 12:08 WBC (4.8-10.8) K/ul RBC (4.63-6.08) M/uL Hgb (14.0-18.0) g/dl Hct (40.1-51.0) % MCV (80.0-100.0) fL MCH (25.0-34.0) pg MCHC (32.0-36.0) g/dL RDW Std Deviation (36.4-46.3) fL RDW Coeff of [place] (11.5-14.5) % Plt Count (130-400) K/uL MPV (9.4-12.4) fL Immature Gran % (Auto) % Neut % (Auto) % Lymph % (Auto) % [place] % (Auto) % Eos % (Auto) % Baso % (Auto) % Neut # (Auto) (1.4-6.5) K/uL Lymph # (Auto) (1.2-3.4) K/uL [place] # (Auto) (0.24-0.82) K/uL Eos # (Auto) (0-0.50) K/uL Baso # (Auto) (0-0.2) K/uL Immature Gran # (Auto) (0.00-0.02) K/uL PT (9.0-12.0) Seconds INR (0.9-1.1) APTT (21.0-31.0) Seconds PTT Ratio VBG pH 7.36 (7.36-7.41) VBG pCO2 47 (38-50) mmHg VBG pO2 26 mmHg VBG HCO3 27 mmol/L VBG O2 Saturation < 60.0 % VBG Base Excess 0.6 mEq/L Sodium (136-145) mmol/L Potassium (3.5-5.1) mmol/L Chloride (98-107) mmol/L Carbon Dioxide (21-32) mmol/L Anion Gap (3-11) BUN (6-23) mg/dl Creatinine (0.6-1.4) mg/dl Est Cr Clr Drug Dosing ml/min Est GFR ( Amer) ml/min Est GFR (Non-Af Amer) ml/min BUN/Creatinine Ratio (10-20) Glucose (70-99(Fasting)) mg/dl Calcium (8.5-10.1) mg/dl Total Bilirubin (0.2-1.0) mg/dl AST (13-39) U/L ALT (7-52) U/L Alkaline Phosphatase (34-104) U/L Troponin I High Sens (0-20) pg/ml B-Natriuretic Peptide 259 H (0-100) pg/ml Total Protein (6.0-8.3) gm/dl Albumin (3.4-5.0) gm/dl Globulin (2.5-4.0) gm/dl Albumin/Globulin Ratio (0.9-2) SARS-CoV-2 (PCR) NEGATIVE (Negative) Influenza Type A (PCR) Negative (Neg) Influenza Type B (PCR) Negative (Neg) RSV (RT-PCR) Negative (Neg) Administered Medications Discontinued Medications Albuterol (Albut/Ipratrop 3mg/0.5mg Neb 3 Ml Vial) 3 ml NEB NOW STA; Protocol Stop: 08/06/22 11:39 Last Admin: 08/06/22 12:01 Dose: 3 ml Documented By: ES Azithromycin 500 mg/ Dextrose 255 mls @ 127.5 mls/hr IV NOW STA Stop: 08/06/22 14:14 Last Admin: 08/06/22 12:43 Dose: 127.5 mls/hr Documented By: ES Methylprednisolone (Methylprednisolone 125 Mg/2 Ml Vial) 80 mg IV NOW STA Stop: 08/06/22 11:39 Last Admin: 08/06/22 12:01 Dose: 80 mg Documented By: ES Imaging Data Radiologist's Impression: Chest X-Ray 08/06/22 09:32 XR chest 1V portable CLINICAL HISTORY: Dyspnea. COMPARISON STUDY: Chest CT November 28, 2021. FINDINGS: Left internal jugular [id number] remains in place. Tip is unchanged in position, within the left brachiocephalic vein. There is no pneumothorax or pleural effusion. No consolidation is identified. Cardiomegaly is unchanged. Mild interstitial thickening is noted. Suspected slight increased since prior CT. IMPRESSION: Increase in mild nonspecific interstitial thickening. No consolidation. ACT 112: Negative or not required by law. Electronically signed by: Virgil Pinzon M.D. 08/06/2022 9:55 AM Discharge Plan Visit Data Chief Complaint: Shortness of Breath/Dyspnea Stated Complaint: SOB ED Provider: Nickolas Kirby Discharge Problem: Hypoxia Patient Disposition: Admitted As Inpatient Discharge Instructions Interventions: ED Discharge Assessment Last Done: 08/06/22 13:35
[2022-08-06 09:50] LABS: Base Excess VBG 0.6 mEq/L; HCO3 VBG 27 mmol/L; Oxygen Saturation VBG < 60.0 %; PCO2 VBG 47 mmHg (38-50); PO2 VBG 26 mmHg; pH VBG 7.36 (7.36-7.41)
[2022-08-06 09:51] LABS: Basophils # (auto) 0.06 K/uL (0-0.2); Basophils % (auto) 0.6 %; Eosinophils # (auto) 0.27 K/uL (0-0.50); Eosinophils % (auto) 2.8 %; Hematocrit (blood only) 35.7 % (40.1-51.0); Hemoglobin 11.6 g/dl (14.0-18.0); Immature Granulocytes # (auto) 0.05 K/uL (0.00-0.02); Immature Granulocytes % (auto) 0.5 %; Lymphocytes # (auto) 0.43 K/uL (1.2-3.4); Lymphocytes % (auto) 4.4 %; Mean Corpuscular Hemoglobin 31.3 pg (25.0-34.0); Mean Corpuscular Hgb Conc 32.5 g/dL (32.0-36.0); Mean Corpuscular Volume 96.2 fL (80.0-100.0); Monocytes # (auto) 1.07 K/uL (0.24-0.82); Neutrophils # (auto) 7.81 K/uL (1.4-6.5); Neutrophils % (auto) 80.7 %; Platelet Count 239 K/uL (130-400); RDW Coefficient of Variation 14.9 % (11.5-14.5); RDW Standard Deviation 52.1 fL (36.4-46.3); Red Blood Count 3.71 M/uL (4.63-6.08); White Blood Count 9.69 K/ul (4.8-10.8)
--- NOTE | 2022-08-06 09:57 | XRay Report ---
XR chest 1V portable CLINICAL HISTORY: Dyspnea. COMPARISON STUDY: Chest CT November 28, 2021. FINDINGS: Left internal jugular [id number]-[id number] remains in place. Tip is unchanged in position, within the left brachiocephalic vein. There is no pneumothorax or pleural effusion. No consolidation is iden tified. Cardiomegaly is unchanged. Mild interstitial thickening is noted. Suspected slight increased since prior CT. IMPRESSION: Increase in mild nonspecific interstitial thickening. No consolidation. ACT 112: Negative or not required by law. Electronically signed by: Virgil Pinzon M.D. 08/06/2022 9:55 AM
[2022-08-06 10:02] LABS: INR 1.1 (0.9-1.1); Partial Thromboplastin Ratio 1.2; Partial Thromboplastin Time 31.9 Seconds (21.0-31.0); Prothrombin Time 11.2 Seconds (9.0-12.0)
[2022-08-06 10:14] LABS: Albumin Globulin Ratio 1.3 (0.9-2); Albumin Level 3.7 gm/dl (3.4-5.0); BUN Creatinine Ratio 15.3 (10-20); Bilirubin,Total 0.6 mg/dl (0.2-1.0); Creatinine Clr Calc Pharmacy 19.2 ml/min; Est GFR (African American) 18.2 ml/min; Est GFR (Non-African American) 15.7 ml/min; Globulin 2.8 gm/dl (2.5-4.0); Potassium 4.2 mmol/L (3.5-5.1); Total Protein 6.5 gm/dl (6.0-8.3)
[2022-08-06 10:20] LABS: Troponin I High Sensitivity 30.4 pg/ml (0-20)
[2022-08-06 10:37] LABS: Influenza A virus by PCR Negative (Neg); Influenza B virus by PCR Negative (Neg); RSV by PCR Negative (Neg); SARS CoV2 RNA(COVID-19)Cepheid NEGATIVE (Negative)
[2022-08-06] MEDS ORDERED: methylPREDNISolone 125 MG/2 ML VIAL IV STA (11:38)
[2022-08-06] MEDS ORDERED: ALBUT/IPRATROP 3MG/0.5MG NEB 3 ML VIAL NEB STA (11:38)
--- NOTE | 2022-08-06 12:05 | History & Physical Report ---
Date of Service August 06, 2022 Assessment & Plan (1) Acute and chronic respiratory failure with hypoxia: Plan: - Patient with several days of shortness of breath, cough, 70% on room air, CO2 on VBG. - Now on 3 L nasal cannula with O2 saturations > 88% - CXR: Increase in mild nonspecific interstitial thickening. No consolidation. 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 - Also has history of B-cell lymphoma with R-CHOP, now in remission, may be contributing. - PFT 09/29/2021: Nonspecific spirometry, significant bronchodilator response, normal TLC, severe decrease in DLCO which does not correct for VA FVC 1.9 L 54%, FEV1 1.72 L 61%, FEV1/FVC 87%, ERV 18%, RV 89%, TLC 85%, RV/TLC 86%, DLCO 36%, DLCO/VA 56% - DuoNebs scheduled every 6 hours and every 2 hours as needed. - Flutter valve, incentive spirometry - Solu-Medrol 40 mg IV every 8 hours. - Mucinex twice daily - Azithromycin daily. - Inhalers, Trelegy daily and albuterol rescue inhaler as needed. - We will consult pulmonary see patient while he is admitted per patient request. (2) Coroi-eq-xlkepil kidney injury: Plan: - Baseline creatinine is around 3, today is 3.54. - He is not normally on a diuretic and does not appear volume overloaded, therefore seems appropriate to give gentle IV hydration. - Previously had dialysis after lymphoma diagnosis in 2019, however has not had dialysis since then. - Mature right radiocephalic AV fistula intact. - Continue oral iron supplementation for anemia of chronic disease. - Avoid NSAIDs/renal toxins, renally dose as able. (3) Elevated troponin: Plan: - Troponin mildly elevated at 30, EKG shows NSR with LVH, unchanged from previous EKGs. - He is short of breath and with a cough, however without any chest pain. - Suspect it is mildly, chronically elevated in the setting of CKD, acute on chronic respiratory failure, acute on chronic kidney injury, known CAD. - We will trend this while he is admitted and obtain echo. 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 - Has upcoming vascular procedure at [facility] next Tuesday 08/14. - Continue aspirin, Plavix, statin. (5) Coronary artery disease: Plan: - s/p PCI (details unknown) peripheral arterial disease s/p right femoral pop bypass and angioplasty. -Continue DAPT with aspirin and Plavix, statin. Previously on lisinopril and calcium channel ruby, however not on any antihypertensives now. Reasonable control BP without. (6) GERD (gastroesophageal reflux disease): Plan: - Previously on a PPI, no history of GI bleeds, however given he is on dual antiplatelet therapy and will be on steroids for COPD exacerbation, will resume Protonix daily. (7) Anemia: Plan: - Secondary to CKD, continue oral iron supplementation. Trend. (8) B-cell lymphoma: Plan: - In remission, still has a port in place. - S/p R-CHOP. (9) MAEGAN (obstructive sleep apnea): Plan: - Wears 5L NC at night. (10) Hypercholesteremia: Plan: - Continue atorvastatin. (11) Depression: Plan: - Continue citalopram. Plan - Admitted to PCU. - SCDs, Heparin for VTE ppx. - Full Code. 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 Actually been progressively getting worse over the last 3 weeks, however the past couple days his shortness of breath is so severe that he is not able to do usual household activities without becoming severely short of breath and coughing up thick yellow sputum. He has not had any fevers, chills, chest pain, palpitations, nausea, vomiting. He denies any lower extremity swelling or weight gain. His ability to lie flat is somewhat limited due to back pain, however he has been laying horizontally on his side without worsening shortness of breath, has not been waking up in the middle the night gasping for air. He has been using his home inhalers without significant relief. On presentation, he is 78% on room air, now 96% on 3 L nasal cannula. Mildly hypertensive, otherwise vital signs within normal limits and stable since arrival. Labs largely unrevealing, he has a chronic anemia, at baseline. VB.36/47/. BUN 54, creatinine slightly increased from prior labs in May, 3.54 today, was less than 3 then. His troponin is slightly elevated at 30.4. COVID/flu/RSV negative. CXR shows increase in mild nonspecific interstitial thickening without consolidation. ED course: Albuterol nebulized treatment, 80 mg IV Solu-Medrol. Allergies Allergy/AdvReac Type Severity Reaction Status Date / Time No Known Drug Allergies Allergy Unknown NKDA Verified 06/21/22 13:59 Home Medications Medication Instructions Recorded Confirmed Type atorvastatin 80 mg tablet (Lipitor) 80 mg PO HS #0 tabs 12/21/14 08/06/22 History finasteride 5 mg tablet 5 mg PO QAM 12/04/18 08/06/22 History aspirin 81 mg tablet,delayed 81 mg PO QPM 12/26/18 08/06/22 History release (Aspir-) clopidogrel 75 mg tablet 75 mg PO DAILY 09/15/21 08/06/22 History ferrous sulfate 325 mg (65 mg 650 mg PO .COMPLEX 12/20/21 08/06/22 History iron) tablet albuterol sulfate 90 mcg/actuation 2 puff inhalation Q6H PRN 06/21/22 08/06/22 Rx aerosol inhaler Shortness Of Breath Or Wheezing #18 grams epoetin neptali 20,000 unit/mL 20,000 unit subcut MONTHLY #1 mL 06/29/22 08/06/22 Rx injection solution (Procrit) fluticasone fur. 100 mcg-umeclid 1 inh inhalation DAILY #60 ea 07/10/22 08/06/22 Rx 62.5 mcg-vilant 25 mcg inhalat.powder (Trelegy Ellipta) citalopram 20 mg tablet 20 mg PO DAILY 08/06/22 08/06/22 History Past Med/Surg History Medical History Anemia ARF (acute renal failure) 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 Chronic back pain Chronic renal disease, stage IV Coronary artery disease Deep vein thrombosis Deep vein thrombosis ~ Depression Hearing deficit Hemodialysis patient LAST DIAYLSIS FEBRUARY 11, 2019. NEPHROLOGY HAS STOPPED DIAYLSIS FOR THE TIME. Hyperkalemia Hypertension Liver mass Metabolic acidosis On anticoagulant therapy Osteoarthritis Peripheral neuropathy Peripheral vascular disease Pneumonia 3 YRS AGO Secondary hyperparathyroidism of renal origin Sleep apnea NON-COMPLIANT Vitamin D deficiency Surgical History H/O vascular surgery REMOVAL OF DVT History of cardiac cath X1. FOLLOWS WITH DR JOYNER History of colonoscopy History of esophagogastroduodenoscopy (EGD) History of heart artery stent History of lumbar discectomy History of umbilical hernia repair S/P femoral-femoral bypass surgery RIGHT LEG Family History Mother FHx: lung cancer FHx: uterine cancer Other Allergy Cancer Diabetes Heart disease Lung cancer Lung disease Denies family history of Tuberculosis Emphysema of lung Asthma Social History Smoking Status: Former smoker Tobacco Type: Cigarettes packs per day: 1; Number of Years Since Quit: 25; Second Hand Exposure: No; Hx Alcohol Use: No Hx Substance Use: No Preferred Language: Wolof Communication Ability: Effective Swing Tender Required: No Beliefs That Will Affect Care: None Current Living Situation: Spouse Feels Safe at Home: Yes Assistive Devices: Glasses Review of Systems Review of Systems: Constitutional: No fever/chills, weakness, fatigue, myalgias, anorexia, night sweats Eyes: No diplopia, no worsening or blurred vision ENT: normal hearing, no trouble swallowing Respiratory: 2 weeks of worsening shortness of breath and productive cough with yellow sputum, significantly worse over the past 2-3 days Cardiovascular: No chest pain, tightness or palpitations Abdomen: No pain, nausea, vomiting, diarrhea or constipation : Denies dysuria, hematuria, increased urgency/frequency, urinary retention Musculoskeletal: No joint pain, calf pain, swelling Neurologic: No weakness, numbness/tingling, or balance problems Psychiatric: No anxiety or depression Skin: No rash or itch Physical Exam Physical Exam: General: awake, alert, no apparent distress Head: Normocephalic, atraumatic ENT: PERRL, EOMI, no pharyngeal exudate, mucous membranes moist Chest: Some expiratory wheezing appreciated throughout lung broussard Cardiac: Regular rate and rhythm, no murmur, no JVD, normal peripheral pulses, good capillary refill Abdominal: NABS x 4 quadrants, soft, nontender to palpation, no rebound, guarding or tenderness Extremities: Normal inspection, no peripheral edema or erythema, calfs nontender to palpation Psych: Normal mood and affect Neuro: AAO x 3, strength intact bilaterally and rated 5/5, no motor deficits, speech is clear, no peripheral sensory deficits Skin: no rash or erythema Results & Data Results & Data ([facility]) Vital Signs (Past 12 Hours) Vital Signs Temp Pulse Pulse Resp BP BP Pulse Ox 08/06/22 11:26 76 20 144/69 H 97 08/06/22 09:40 76 20 96 08/06/22 09:34 78 L 08/06/22 09:34 36.9 C 76 20 134/71 78 L O2 Del Method O2 Flow Rate 08/06/22 11:26 Nasal Cannula 3 08/06/22 09:40 Nasal Cannula 3 08/06/22 09:34 Room Air 08/06/22 09:34 Room Air Laboratory Results Abnormal lab results 08/06/22 08/06/22 08/06/22 Range/Units 09:40 09:40 09:40 RBC 3.71 L (4.63-6.08) M/uL Hgb 11.6 L (14.0-18.0) g/dl Hct 35.7 L (40.1-51.0) % RDW Std Deviation 52.1 H (36.4-46.3) fL RDW Coeff of [place] 14.9 H (11.5-14.5) % MPV 9.0 L (9.4-12.4) fL Neut # (Auto) 7.81 H (1.4-6.5) K/uL Lymph # (Auto) 0.43 L (1.2-3.4) K/uL Morton # (Auto) 1.07 H (0.24-0.82) K/uL Immature Gran # (Auto) 0.05 H (0.00-0.02) K/uL APTT 31.9 H (21.0-31.0) Seconds BUN 54 H (6-23) mg/dl Creatinine 3.54 H (0.6-1.4) mg/dl Glucose 105 H (70-99(Fasting)) mg/dl Troponin I High Sens 30.4 H (0-20) pg/ml B-Natriuretic Peptide (0-100) pg/ml 08/06/22 Range/Units 12:08 RBC (4.63-6.08) M/uL Hgb (14.0-18.0) g/dl Hct (40.1-51.0) % RDW Std Deviation (36.4-46.3) fL RDW Coeff of [place] (11.5-14.5) % MPV (9.4-12.4) fL Neut # (Auto) (1.4-6.5) K/uL Lymph # (Auto) (1.2-3.4) K/uL Morton # (Auto) (0.24-0.82) K/uL Immature Gran # (Auto) (0.00-0.02) K/uL APTT (21.0-31.0) Seconds BUN (6-23) mg/dl Creatinine (0.6-1.4) mg/dl Glucose (70-99(Fasting)) mg/dl Troponin I High Sens (0-20) pg/ml B-Natriuretic Peptide 259 H (0-100) pg/ml Diagnostic Findings Chest X-Ray 08/06/22 09:32 XR chest 1V portable CLINICAL HISTORY: Dyspnea. COMPARISON STUDY: Chest CT November 28, 2021. FINDINGS: Left internal jugular [id number] remains in place. Tip is unchanged in position, within the left brachiocephalic vein. There is no pneumothorax or pleural effusion. No consolidation is identified. Cardiomegaly is unchanged. Mild interstitial thickening is noted. Suspected slight increased since prior CT. IMPRESSION: Increase in mild nonspecific interstitial thickening. No consolidation. ACT 112: Negative or not required by law. Electronically signed by: Virgil Pinzon M.D. 08/06/2022 9:55 AM ECG Additional Comments: Normal sinus rhythm Left ventricular hypertrophy with repolarization abnormality Abnormal ECG When compared with ECG of 13-FEB-2021 11:11, No significant change was found. Code Status & VTE Plan Code Status Full code. Supervising Physician Co-Signing Physician Notes Patient seen and examined, chart reviewed, case discussed with Ann Royal PA-C and I agree with the assessment and plan as above except as otherwise noted Labs and images reviewed 77-year-old male with past medical history of B-cell lymphoma with lymph node involvement, COPD and interstitial lung disease followed by pulmonology, MAEGAN, hypertension, hyperlipidemia, CKD, and anemia who presents with several days of worsening shortness of breath and cough which is much worse in the last few days after gradual progression of worsening over the last 3 weeks. Change in sputum production to thick yellow. No fever/chills/sweats. CXR shows nonspecific diffuse findings without consolidation. Pulmonary was consulted for review at patient/family request and is known to Dr. Grande. Clinically patient is with trace ankle edema, JVD at angle of the clavicle which increases to the mandible with hepatojugular reflex, and lungs are diffusely coarse but with increased crackles at the bases. with elevated BNP clinical assessment suspect patient is likely volume positive but given failure to improve previously on Lasix and underlying CKD 4 with elevated creatinine neurology consult has been placed. Reasonable to wait for this and CT results to better assess chronic disease vs edema Acute on chronic respiratory failure: Background of pneumonitis, COPD, interstitial lung disease, and B-cell lymphoma with history of R-CHOP. Continue Trelegy/formulary equivalent, COPD treatment as above. Incentive spirometry, flutter valve. No leukocytosis, COVID is negative, Pro-Naseem pending. Prerenal azotemia versus KATHY on CKD: Increasing creatinine from baseline 3 up to 3.54 on admission, suspect this may actually be from diastolic dysfunction we will complete work-up as above and try Lasix 20 mg IV daily Demand ischemia: Troponin mildly elevated at 30, no ischemic change on EKG. May be consistent with LVH versus demand. No chest pain clinically. Trend, echo pending. Does have history of PCI, continue antiplatelets. PG Care Time/CCT Total # of Minutes Spent Total Time Spent with Patient: Total time spent is greater than 50% in coordination of care (as documented) at patient's floor/unit and/or counseling patient: Coding Level of Care Code 96681 Initial Inpt Care Lvl 3 Diagnoses Acute and chronic respiratory failure with hypoxia J96.21 [id number] kidney injury N17.9; N18.9 Elevated troponin R77.8 PAD (peripheral artery disease) I73.9 Coronary artery disease I25.10 Associated angina: without angina Coronary Disease-Associated Artery/Lesion type: [place] artery [place] vs. transplanted heart: [place] heart GERD (gastroesophageal reflux disease) K21.9 Esophagitis presence: without esophagitis Anemia N18.4; D63.1 Anemia type: due to chronic kidney disease Chronic kidney disease stage: stage 4 (severe) B-cell lymphoma C83.38 B-cell lymphoma type: diffuse large B-cell Lymphoma site: multiple regions MAEGAN (obstructive sleep apnea) G47.33 Hypercholesteremia E78.00 Depression F32.9 (1) Coronary artery disease Associated angina: without angina Coronary Disease-Associated Artery/Lesion type: [place] artery [place] vs. transplanted heart: [place] heart Qualified Code(s): I25.10 - Atherosclerotic heart disease of [place] coronary artery without angina pectoris (2) B-cell lymphoma B-cell lymphoma type: diffuse large B-cell Lymphoma site: multiple regions Qualified Code(s): C83.38 - Diffuse large B-cell lymphoma, lymph nodes of multi ple sites (3) Anemia Anemia type: due to chronic kidney disease Chronic kidney disease stage: stage 4 (severe) Qualified Code(s): N18.4 - Chronic kidney disease, stage 4 (severe); D63.1 - Anemia in chronic kidney disease (4) GERD (gastroesophageal reflux disease) Esophagitis presence: without esophagitis Qualified Code(s): K21.9 - Gastro- esophageal reflux disease without esophagitis
[2022-08-06] MEDS ORDERED: AZITHROMYCIN 500 MG in DEXTROSE 5% 250 ML IV STA (12:15)
[2022-08-06] MEDS ORDERED: ACETAMINOPHEN 325 MG TAB PO PRN (14:04)
[2022-08-06] MEDS ORDERED: POLYETHYLENE (MIRALAX) 17 GM PACK PO PRN (14:04)
[2022-08-06] MEDS ORDERED: ALBUTEROL HFA 8 GM INHALER INH PRN (14:04)
[2022-08-06] MEDS ORDERED: ONDANSETRON INJ 2 MG/ML 2 ML VIAL IV PRN (14:04)
[2022-08-06] MEDS ORDERED: ALBUT/IPRATROP 3MG/0.5MG NEB 3 ML VIAL NEB PRN (14:04)
[2022-08-06] MEDS ORDERED: ALUMINUM/MAGNESIUM SUSP 30 ML UDC PO PRN (14:04)
[2022-08-06] MEDS: ALBUT/IPRATROP 3MG/0.5MG NEB 3 ML VIAL INH SCH ×2 (15:28→19:44)
[2022-08-06] MEDS: ATORVASTATIN 40 MG TAB PO SCH (20:10)
[2022-08-06] MEDS: ASPIRIN 81 MG ECTAB PO SCH (20:10)
[2022-08-06] MEDS: FERROUS SULFATE 325 MG TAB PO SCH (20:11)
[2022-08-06] MEDS: methylPREDNISolone 40 MG in SYRINGE 0 ML IV SCH (20:11)
[2022-08-06] MEDS: HEPARIN SOD 5,000 UNIT/0.5 ML VIAL SQ SCH (20:11)
[2022-08-06] MEDS: guaiFENesin 600 MG TABCR PO SCH (20:12)
[2022-08-06] MEDS ORDERED: INFLUENZA VACCINE HIGH DOSE PF 65+ 0.7 ML SYR IM ONE (20:30)
[2022-08-06 23:32] LABS: Appearance Urine Cloudy (Clear); Bacteria Urine Automated 4+ (Negative); Bilirubin Urine Negative (Negative); Blood Urine 1+ (Negative); Color Urine Yellow; Epithelial Cell Urine Auto 0-5 /lpf (0-5); Glucose Urine UA Trace (Negative); Ketones Urine Negative (Negative); Leukocyte Esterase Urine 1+ (Negative); Nitrite Urine Positive (Negative); RBC Urine Automated 0-4 /hpf (0-4); Specific Gravity Urine 1.015 (1.000-1.030); Urobilinogen Urine Negative (Negative); WBC Urine Automated >30 /hpf (0-5); pH Urine >= 9.0 (4.5-7.5)
[2022-08-06 23:35] LABS: Protein Urine 2+ (Negative)
[2022-08-07] MEDS: ALBUT/IPRATROP 3MG/0.5MG NEB 3 ML VIAL INH SCH ×2 (00:08→06:59)
[2022-08-07 02:13] LABS: Hematocrit (blood only) 34.4 % (40.1-51.0); Hemoglobin 11.3 g/dl (14.0-18.0); Mean Corpuscular Hgb Conc 32.8 g/dL (32.0-36.0); Mean Corpuscular Volume 94.2 fL (80.0-100.0); Mean Platelet Volume 9.1 fL (9.4-12.4); Platelet Count 227 K/uL (130-400); RDW Coefficient of Variation 14.7 % (11.5-14.5); RDW Standard Deviation 51.3 fL (36.4-46.3); Red Blood Count 3.65 M/uL (4.63-6.08); White Blood Count 6.34 K/ul (4.8-10.8)
[2022-08-07 02:35] LABS: BUN Creatinine Ratio 18.1 (10-20); Calcium 9.3 mg/dl (8.5-10.1); Creatinine Clr Calc Pharmacy 18.8 ml/min; Est GFR (African American) 17.8 ml/min; Est GFR (Non-African American) 15.4 ml/min; Magnesium 2.1 mg/dl (1.7-2.4); Potassium 4.2 mmol/L (3.5-5.1)
[2022-08-07 03:06] LABS: Basophils # (auto) 0.02 K/uL (0-0.2); Basophils % (auto) 0.3 %; Echinocytes 2+; Immature Granulocytes # (auto) 0.11 K/uL (0.00-0.02); Immature Granulocytes % (auto) 1.7 %; Lymphocytes # (auto) 0.26 K/uL (1.2-3.4); Lymphocytes % (auto) 4.1 %; Monocytes # (auto) 0.15 K/uL (0.24-0.82); Monocytes % (auto) 2.4 %; Neutrophils % (auto) 91.5 %
[2022-08-07] MEDS: methylPREDNISolone 40 MG in SYRINGE 0 ML IV SCH (04:13)
--- NOTE | 2022-08-07 05:21 | Electrocardiogram Report ---
Test Reason : Blood Pressure : / mmHG Vent. Rate : 076 BPM Atrial Rate : 076 BPM P-R Int : 170 ms QRS Dur : 096 ms QT Int : 420 ms P-R-T Axes : 034 006 084 degrees QTc Int : 472 ms Normal sinus rhythm Left ventricular hypertrophy with repolarization abnormality Abnormal ECG When compared with ECG of 13-FEB-2021 11:11, No significant change was found Confirmed by Jeromy Gonzalez ([id number]) on 08/07/2022 5:21:10 AM Referred By: REFERRED SELF Confirmed By:Jeromy Gonzalez
--- NOTE | 2022-08-07 08:11 | Pulmonary Consultation ---
Date of Consultation August 07, 2022 Assessment & Plan (1) Hypoxia: (2) Elevated troponin: (3) Dsafv-kf-qmqwdxe kidney injury: (4) Acute and chronic respiratory failure with hypoxia: (5) ILD (interstitial lung disease): (6) Abnormal chest CT: Plan Impression: 77-year-old male with history of chronic kidney disease, prior B- cell lymphoma status post R-CHOP therapy, potential hypersensitivity pneumonitis admitted with increasing work of breathing and hypoxemia which is a new finding compared to 6 or 8 weeks ago. Differential would include fluid overload (BNP mildly elevated), progression of interstitial lung disease, with atypical infection felt to be less likely. Recommendations: 1. Hypoxemia: Continue supplemental oxygen titrated to keep saturations at or above 88%. Patient may require oxygen on a more regular basis moving forward. We will likely need to repeat pulmonary function tests in an outpatient setting. Would not recommend repeating them now as they are not likely to be reliable. 2. Potential hypersensitivity pneumonitis: Serological evaluation was unrevealing in the past. 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 Steroids may be reasonable. Bronchiolitis obliterans may have a similar picture of air trapping although his PFTs are not entirely consistent. Typically this is not a steroid responsive process. Transition to prednisone 40 mg a day for now to see if it o ffers him a clinical benefit. Given the robust bronchodilator response on his outpatient PFTs, will continue Anoro/Arnuity for now. Can use the nebulized bronchodilators on an as-needed basis but these do not need to be scheduled. 3. Sleep disordered breathing: The patient has declined therapy for sleep apnea in the past. His family reiterates that he has a very significant sleep disordered breathing. Reassessing in the outpatient setting may be appropriate. 4. Questionable pneumonia. The patient was placed on azithromycin on presentation. Discontinue IV formulation and transition to oral. Check procalcitonin. If this is negative, I think antibiotics can be safely withheld. 5. Chronic kidney disease: Elevated BNP. Unclear if there may be a component of hydrostatic pulmonary edema contributing. Nephrology consultation pending. Withhold diuresis until nephrology input. We will continue to follow with you. Feel free to contact us with questions or concerns History of Present Illness Attending Physician: Red Matthew History of Present Illness Asked by hospitalist service to evaluate this patient with interstitial lung disease and acute on chronic hypoxemic respiratory failure. History is obtained from review electronic medical record as well as discussion with the patient and his son-in-law at bedside. Patient is a 77-year-old male who follows with Dr. Grande in the outpatient setting for interstitial lung disease, chronic hypoxemic respiratory failure, and untreated sleep disordered breathing. The patient was last seen June 21, 2022 and at that point time was ambulated in clinic and demonstrated no significant exertional hypoxemia. He has oxygen at home which he uses at night. He has had a high-resolution CT scan which has demonstrated some mosaicism/air trapping as well as subpleural increased interstitial markings. 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 The patient was felt to be high risk for invasive procedures such as biopsy so he was elected to be followe d clinically. The patient states that over the last 6 to 8 weeks he has had progressive dyspnea on exertion and exercise intolerance. Eventually his symptoms became bad enough that he presented to the emergency room. He was found to be hypoxemic with oxygen saturations dipping into the 70% range with exertion. He was placed on supplemental oxygen and treated with steroids. He does not report any coughing or wheezing. The patient had been placed on a variety of inhalers, mostly recently Trelegy in the outpatient setting. He states he used it for about 3 weeks but noted no significant benefit from this medication and subsequently was discontinued. He has been receiving nebulized bronchodilators while here in the hospital but again notes that these are not particularly beneficial. He denies fevers chills night sweats or other constitutional symptoms. His appetite is good and his weight is stable. Patient does have chronic lower extremity edema. He has chronic kidney disease and follows with nephrology. He denies any chest pain palpitations. Allergies Allergy/AdvReac Type Severity Reaction Status Date / Time No Known Drug Allergies Allergy Unknown NKDA Verified 06/21/22 13:59 Home Medications Medication Instructions Recorded Confirmed Type atorvastatin 80 mg tablet (Lipitor) 80 mg PO HS #0 tabs 12/21/14 08/06/22 History finasteride 5 mg tablet 5 mg PO QAM 12/04/18 08/06/22 History aspirin 81 mg tablet,delayed 81 mg PO QPM 12/26/18 08/06/22 History release (Aspir-) clopidogrel 75 mg tablet 75 mg PO DAILY 09/15/21 08/06/22 History ferrous sulfate 325 mg (65 mg 650 mg PO .COMPLEX 12/20/21 08/06/22 History iron) tablet albuterol sulfate 90 mcg/actuation 2 puff inhalation Q6H PRN 06/21/22 08/06/22 Rx aerosol inhaler Shortness Of Breath Or Wheezing #18 grams epoetin neptali 20,000 unit/mL 20,000 unit subcut MONTHLY #1 mL 06/29/22 08/06/22 Rx injection solution (Procrit) fluticasone fur. 100 mcg-umeclid 1 inh inhalation DAILY #60 ea 07/10/22 08/06/22 Rx 62.5 mcg-vilant 25 mcg inhalat.powder (Trelegy Ellipta) citalopram 20 mg tablet 20 mg PO DAILY 08/06/22 08/06/22 History Patient History Medical History Anemia ARF (acute renal failure) 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 Chronic back pain Chronic renal disease, stage IV Coronary artery disease Deep vein thrombosis Deep vein thrombosis ~ Depression Hearing deficit Hemodialysis patient LAST DIAYLSIS FEBRUARY 11, 2019. NEPHROLOGY HAS STOPPED DIAYLSIS FOR THE TIME. Hyperkalemia Hypertension Liver mass Metabolic acidosis On anticoagulant therapy Osteoarthritis Peripheral neuropathy Peripheral vascular disease Pneumonia 3 YRS AGO Secondary hyperparathyroidism of renal origin Sleep apnea NON-COMPLIANT Vitamin D deficiency Surgical History H/O vascular surgery REMOVAL OF DVT History of cardiac cath X1. FOLLOWS WITH DR JOYNER History of colonoscopy History of esophagogastroduodenoscopy (EGD) History of heart artery stent History of lumbar discectomy History of umbilical hernia repair S/P femoral-femoral bypass surgery RIGHT LEG Family History Mother FHx: lung cancer FHx: uterine cancer Other Allergy Cancer Diabetes Heart disease Lung cancer Lung disease Denies family history of Tuberculosis Emphysema of lung Asthma Social History Smoking Status: Former smoker Tobacco Type: Cigarettes packs per day: 1; Number of Years Since Quit: 25; Second Hand Exposure: No; Do You Dip or Chew Tobacco: No; Tobacco Cessation Education Requested by Patient: No Hx Alcohol Use: No Hx Substance Use: No Preferred Language: Comoran Communication Ability: Effective 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 Beliefs That Will Affect Care: None Current Living Situation: Spouse Other Information That Helps Us Care for You: No Feels Safe at Home: Yes Safety Concerns: Feels Safe At This Time Assistive Devices: Glasses and Oxygen - Continuous Assistive Devices Comment: O2 HS Review of Systems Review of Systems: All systems reviewed & are unremarkable except as noted in Subjective Physical Exam Constitutional: WD/WN, vitals as above Neck: trachea midline, no thyromegaly Respiratory: + labored breathing; no respiratory distress and not tachypneic Auscultation: + crackles and + rhonchi; no wheezes Cardiovascular: Rate/Rhythm: regular rate Heart Sounds: normal S1 and normal S2; no murmur Extremities: + edema Gastrointestinal (Abdomen): normal bowel sounds, soft, nontender, no hepatosplenomegaly Musculoskeletal: Extremities: extremities normal to inspection Skin: no rashes, warm and dry Neurologic: Nonfocal exam Lymphatic: no cervical lymphadenopathy Results & Data Results & Data ([facility]) Vital Signs (Past 12 Hours) Vital Signs Temp Pulse Pulse Resp BP Pulse Ox O2 Del Method 08/07/22 08:03 36.4 C L 93 H 20 128/63 93 Nasal Cannula 08/07/22 07:30 69 08/07/22 07:30 Nasal Cannula 08/07/22 06:59 81 18 90 Room Air 08/07/22 03:35 36.4 C L 65 18 116/61 96 Nasal Cannula 08/06/22 22:46 36.3 C L 78 18 127/68 95 Nasal Cannula 08/06/22 23:06 85 O2 Flow Rate 08/07/22 08:03 2 08/07/22 07:30 08/07/22 07:30 2.5 08/07/22 06:59 08/07/22 03:35 2.0 08/06/22 22:46 2.0 08/06/22 23:06 Diagnostic Findings Pulmonary function testing performed 09/29/2021 showed an FEV1 of 1.72 L or 61% predicted with an FVC of 1.98 L or 54% predicted and a ratio of 87. Bronchodilators were administered with a 28% improvement in the FEV1 and a 32% improvement in the FVC. Lung volumes show total lung capacity of 85% predicted, FRC of 69% predicted and RV of 89% predicted. Diffusion capacity severely reduced at 36% predicted. High resolution CT of the chest from May 2022 was independently reviewed. It demonstrates some subpleural increased interstitial markings with significant evidence of mosaicism/air trapping. Critical Care Results & Data Vital Signs (Past 12 Hours) Vital Signs Temp Pulse Pulse Resp BP Pulse Ox O2 Del Method 08/07/22 08:03 36.4 C L 93 H 20 128/63 93 Nasal Cannula 08/07/22 07:30 69 08/07/22 07:30 Nasal Cannula 08/07/22 06:59 81 18 90 Room Air 08/07/22 03:35 36.4 C L 65 18 116/61 96 Nasal Cannula 08/06/22 22:46 36.3 C L 78 18 127/68 95 Nasal Cannula 08/06/22 23:06 85 O2 Flow Rate 08/07/22 08:03 2 08/07/22 07:30 08/07/22 07:30 2.5 08/07/22 06:59 08/07/22 03:35 2.0 08/06/22 22:46 2.0 08/06/22 23:06 Lab & Micro Results (Past 24 Hours) RBC 3.65 M/uL (4.63-6.08) L 08/07/22 WBC 6.34 K/ul (4.8-10.8) 08/07/22 Hgb 11.3 g/dl (14.0-18.0) L 08/07/22 Hct 34.4 % (40.1-51.0) L 08/07/22 MCV 94.2 fL (80.0-100.0) 08/07/22 MCH 31.0 pg (25.0-34.0) 08/07/22 MCHC 32.8 g/dL (32.0-36.0) 08/07/22 RDW Standard Deviation 51.3 fL (36.4-46.3) H 08/07/22 RDW Coefficient of Variation 14.7 % (11.5-14.5) H 08/07/22 Plt Count 227 K/uL (130-400) 08/07/22 MPV 9.1 fL (9.4-12.4) L 08/07/22 Neutrophils (%) (Auto) 91.5 % 08/07/22 Lymphocytes (%) (Auto) 4.1 % 08/07/22 Monocytes # (Auto) 0.15 K/uL (0.24-0.82) L 08/07/22 Eosinophils # (Auto) 0.00 K/uL (0-0.50) 08/07/22 Immature Granulocyte % (Auto) 1.7 % 08/07/22 Neutrophils # (Auto) 5.80 K/uL (1.4-6.5) 08/07/22 Lymphocytes # (Auto) 0.26 K/uL (1.2-3.4) L 08/07/22 Monocytes # (Auto) 0.15 K/uL (0.24-0.82) L 08/07/22 Eosinophils # (Auto) 0.00 K/uL (0-0.50) 08/07/22 Basophils # (Auto) 0.02 K/uL (0-0.2) 08/07/22 Immature Granulocyte # (Auto) 0.11 K/uL (0.00-0.02) H 08/07 Echinocytes 2+ 08/07/22 Na 138 mmol/L (136-145) 08/07/22 K 4.2 mmol/L (3.5-5.1) 08/07/22 Cl 105 mmol/L (98-107) 08/07/22 CO2 23 mmol/L (21-32) 08/07/22 Anion Gap 10 (3-11) 08/07/22 BUN 65 mg/dl (6-23) H 08/07/22 Creatinine 3.60 mg/dl (0.6-1.4) H 08/07/22 Estimated GFR ( Amer) 17.8 ml/min 08/07/22 Estimated GFR (Non-Af Amer) 15.4 ml/min 08/07/22 BUN/Creatinine Ratio 18.1 (10-20) 08/07/22 Glu 168 mg/dl (70-99(Fasting)) H 08/07/22 Ca 9.3 mg/dl (8.5-10.1) 08/07/22 Total Bilirubin 0.6 mg/dl (0.2-1.0) 08/06/22 AST 14 U/L (13-39) 08/06/22 ALT 16 U/L (7-52) 08/06/22 Alkaline Phosphatase 51 U/L (34-104) 08/06/22 TP 6.5 gm/dl (6.0-8.3) 08/06/22 Albumin 3.7 gm/dl (3.4-5.0) 08/06/22 Globulin 2.8 gm/dl (2.5-4.0) 08/06/22 Albumin/Globulin Ratio 1.3 (0.9-2) 08/06/22 Mg 2.1 mg/dl (1.7-2.4) 08/07/22 02:00 Calcium Level 9.3 mg/dl (8.5-10.1) 08/07/22 02:00 Prothromb Time International Ratio 1.1 (0.9-1.1) 08/06/22 09:4 0 Venous Blood pH 7.36 (7.36-7.41) 08/06/22 09:40 Venous Blood Partial Pressure CO2 47 mmHg (38-50) 08/06/22 09:4 0 Venous Blood Partial Pressure O2 26 mmHg 08/06/22 09:40 Venous Blood HCO3 27 mmol/L 08/06/22 09:40 Venous Blood Base Excess 0.6 mEq/L 08/06/22 09:40 Venous Blood Oxygen Saturation < 60.0 % 08/06/22 09:40 Diagnostic Findings (Past 24 Hours) Chest X-Ray 08/06/22 09:32 XR chest 1V portable CLINICAL HISTORY: Dyspnea. COMPARISON STUDY: Chest CT November 28, 2021. FINDINGS: Left internal jugular [place]emvfg-[place] remains in place. Tip is unchanged in position, within the left brachiocephalic vein. There is no pneumothorax or pleural effusion. No consolidation is identified. Cardiomegaly is unchanged. Mild interstitial thickening is noted. Suspected slight increased since prior CT. IMPRESSION: Increase in mild nonspecific interstitial thickening. No consolidation. ACT 112: Negative or not required by law. Electronically signed by: Virgil Pinzon M.D. 08/06/2022 9:55 AM I & O Totals 24 Hours 08/06/22 08/07/22 08/08/22 06:59 06:59 06:59 Intake Total 255 / 255 Output Total 100 / 100 Balance 155 / 155 Cumulative 08/06/22 09:13 thru 08/07/22 06:16 Intake Total 255 Output Total 100 Balance 155 RT Ventilator Mngmt (Last Documented) Ventilator Ordered Settings Respiratory Rate 20 08/07/22 08:03 Ventilator - PT Measurements Respiratory Rate 20 PG Care Time/CCT Total # of Minutes Spent Total Time Spent with Patient: Total time spent is greater than 50% in coordination of care (as documented) at patient's floor/unit and/or counseling patient: Coding Level of Care Code 32849 Initial Inpt Care Lvl 3 Diagnoses Hypoxia R09.02 Elevated troponin R77.8 Akjpm-fm-vutmcjb kidney injury N17.9; N18.9 Acute and chronic respiratory failure with hypoxia J96.21 ILD (interstitial lung disease) J84.[address] R93.89
[2022-08-07] MEDS: FINASTERIDE 5 MG TAB PO SCH ×3 (08:45→19:57)
[2022-08-07] MEDS: guaiFENesin 600 MG TABCR PO SCH ×2 (08:45→19:59)
[2022-08-07] MEDS: CITALOPRAM 20 MG TAB PO SCH ×3 (08:45→19:58)
[2022-08-07] MEDS: CLOPIDOGREL BISULFATE 75 MG TAB PO SCH ×3 (08:46→19:59)
[2022-08-07] MEDS: HEPARIN SOD 5,000 UNIT/0.5 ML VIAL SQ SCH ×2 (08:46→19:58)
[2022-08-07] MEDS: PANTOprazole 40 MG TAB PO SCH (08:46)
[2022-08-07] MEDS: FLUTICASONE FUROATE 100MCG 14 PUFFS/INHALER INH SCH (08:47)
[2022-08-07] MEDS: UMECLIDINIUM/VILANTEROL 62.5/25MCG 7 PUFFS/INHALER INH SCH ×2 (08:47→10:01)
[2022-08-07] MEDS ORDERED: NON-FORMULARY MEDICATION (Fluticasone-Umeclidin-Vilanter [Trelegy Ellipta] 100-62.5-25 mcg INH SCH (09:00)
--- NOTE | 2022-08-07 09:37 | Nephrology Consultation ---
Date of Consultation August 07, 2022 Assessment & Plan (1) Uwzmq-fo-khlhbmm kidney injury: (2) Acute and chronic respiratory failure with hypoxia: (3) Anemia: (4) HTN (hypertension): Plan 77-year-old gentlemen with stage IV CKD secondary to microvascular disease and prior dialysis requiring dense KATHY, history of B-cell lymphoma treated with R- CHOP, history of smoking, COPD with emphysema and interstitial lung disease, admitted with progressive worsening of shortness of breath and noted to be hypoxic on admission. Started on steroid, azithromycin and nebulizer without significant improvement in respiratory distress. Although clinically does not seem volume overloaded, exam and chest x-ray suggestive of some mild pulmonary vascular congestion and echo showed significant drop in EF to 30-35% compared to prior. Baseline creatinine has been around 3 with some variability, since admission creatinine has been 3.5-3.6, electrolyte acceptable. Has UTI with 4+ bacteria and recent repeated episodes of dysuria. Although there is slight worsening of renal function, has been voiding normally and electrolyte has been acceptable. Blood pressure well controlled. -- as no significant improvement in respiratory status with steroid, will give a trial of diuretic specially in the setting of mild pulmonary vascular congestion and decrease in UF. Measure accurate intake and output. Monitor electrolyte and renal function closely. -- recommend treating for UTI as he has been symptomatic recently, suggest Bactrim SS , 1 tab daily for 3 days -- NICOLASA for hemoglobin less than 10 -- dose medications for eGFR less than 15 Will follow Thank you for allowing me to participate in your patient's care. It was a pleasure to see Manuel. History of Present Illness Reason for Consultation: acute kidney injury with advanced CKD. Attending Physician: Red Matthew History of Present Illness Mr. Manuel De La Cruz is a 77-year-old gentlemen with past medical history significant for stage IV CKD with history of prior dialysis requiring AK I, COPD and interstitial lung disease admitted with progressive shortness of breath and hypoxia. Nephrology consult requested to manage AK I with underlying advanced CKD. EMR records are reviewed in detail during patient's visit. Manuel was admitted to hospital yesterday after he presented with progressive shortness of breath with minimum exertion over last few days. On admission he was noted to be hypoxic with oxygen saturation 78% on room air, has been on nasal cannula oxygen since then. Chest x-ray showed some pulmonary vascular congestion bt no significant pleural effusion. He was started on IV steroid, Azithromycin, continued on nebulizer. Blood pressure has been well controlled. He reports a few days of dysuria but voiding normally. No fever or chills. On admission lab showed creatinine 3.5-3.6 with baseline creatinine around 3. Electrolyte acceptable. Urinalysis with 4+ bacteria. He has been non- oliguric. BNP was to slightly elevated. Troponin was not significantly elevated, No acute EKG changes. 2D echo showed significant decrease in EF to 30-35% with global hypokinesis. Ex smoker, Zacarias. Stage IV CKD secondary to microvascular disease and prior dialysis requiring KATHY in December and January 2019 in the setting of new diagnosis of B-cell lymphoma, fall off has been off of dialysis since then and b/l cr has been around 3.0 with some variability. Has low grade proteinuria. Renal ultrasound revealed normal size kidneys with small bilateral simple cysts and stable b/l nephrolithiasis. Has mature right radiocephalic AV fistula. He has COPD, emphysema and interstitial lung disease, obstructive sleep apnea, refused CPAP, has been following with Pulmonary. Long-standing HTN, well controlled, off of ACEI/ARB. Has h/o CAD single artery angioplasty w/stenting previously, on Plavix and aspirin therapy. Has PVD, underwent right lower extremity bypass surgery by Dr. Pollard at [facility]. No history of diabetes, denies chronic NSAID use. Chronic right lower extremity with previous history of multiple surgery in right lower extremity and venous and arterial insufficiency requiring angioplasty and stent. 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 Now in remission.Has anemia of chronic disease, received IV Venofer, currently on oral iron, previously EGD, colonoscopy and capsule endoscopy was unremarkable except hiatus hernia, now on NICOLASA. Had COVID pneumonia in February requiring hospitalization for more than 10 days, recovered without needing intubation. He denied any specific symptoms this morning however no significant improvement in the shortness of breath and he was getting short of breath while just talking. Appetite decent. Has been voiding normally. Allergies Allergy/AdvReac Type Severity Reaction Status Date / Time No Known Drug Allergies Allergy Unknown NKDA Verified 06/21/22 13:59 Home Medications Medication Instructions Recorded Confirmed Type atorvastatin 80 mg tablet (Lipitor) 80 mg PO HS #0 tabs 12/21/14 08/06/22 History finasteride 5 mg tablet 5 mg PO QAM 12/04/18 08/06/22 History aspirin 81 mg tablet,delayed 81 mg PO QPM 12/26/18 08/06/22 History release (Aspir-) clopidogrel 75 mg tablet 75 mg PO DAILY 09/15/21 08/06/22 History ferrous sulfate 325 mg (65 mg 650 mg PO .COMPLEX 12/20/21 08/06/22 History iron) tablet albuterol sulfate 90 mcg/actuation 2 puff inhalation Q6H PRN 06/21/22 08/06/22 Rx aerosol inhaler Shortness Of Breath Or Wheezing #18 grams epoetin neptali 20,000 unit/mL 20,000 unit subcut MONTHLY #1 mL 06/29/22 08/06/22 Rx injection solution (Procrit) fluticasone fur. 100 mcg-umeclid 1 inh inhalation DAILY #60 ea 07/10/22 08/06/22 Rx 62.5 mcg-vilant 25 mcg inhalat.powder (Trelegy Ellipta) citalopram 20 mg tablet 20 mg PO DAILY 08/06/22 08/06/22 History Patient History Medical History Anemia ARF (acute renal failure) 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 Chronic back pain Chronic renal disease, stage IV Coronary artery disease Deep vein thrombosis Deep vein thrombosis ~ Depression Hearing deficit Hemodialysis patient LAST DIAYLSIS FEBRUARY 11, 2019. NEPHROLOGY HAS STOPPED DIAYLSIS FOR THE TIME. Hyperkalemia Hypertension Liver mass Metabolic acidosis On anticoagulant therapy Osteoarthritis Peripheral neuropathy Peripheral vascular disease Pneumonia 3 YRS AGO Secondary hyperparathyroidism of renal origin Sleep apnea NON-COMPLIANT Vitamin D deficiency Surgical History H/O vascular surgery REMOVAL OF DVT History of cardiac cath X1. FOLLOWS WITH DR JOYNER History of colonoscopy History of esophagogastroduodenoscopy (EGD) History of heart artery stent History of lumbar discectomy History of umbilical hernia repair S/P femoral-femoral bypass surgery RIGHT LEG Family History Mother FHx: lung cancer FHx: uterine cancer Other Allergy Cancer Diabetes Heart disease Lung cancer Lung disease Denies family history of Tuberculosis Emphysema of lung Asthma Social History Smoking Status: Former smoker Tobacco Type: Cigarettes packs per day: 1; Number of Years Since Quit: 25; Second Hand Exposure: No; Do You Dip or Chew Tobacco: No; Tobacco Cessation Education Requested by Patient: No Hx Alcohol Use: No Hx Substance Use: No Preferred Language: Turkish 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 Beliefs That Will Affect Care: None Current Living Situation: Spouse Other Information That Helps Us Care for You: No Feels Safe at Home: Yes Safety Concerns: Feels Safe At This Time Assistive Devices: Glasses and Oxygen - Continuous Assistive Devices Comment: O2 HS Review of Systems Review of Systems: All systems reviewed & are unremarkable except as noted in Subjective Physical Exam Constitutional: WD/WN, vitals as above Eyes: + anicteric sclerae Neck: normal visual inspection Respiratory: + respiratory distress Auscultation: + diminished lung sounds, + crackles and + rhonchi Cardiovascular: Rate/Rhythm: regular rate and regular rhythm Heart Sounds: normal S1 and normal S2 Extremities: + AV fistula (rt RC A allvf with thrill and brit.); no edema Gastrointestinal (Abdomen): Inspection/Auscultation: abdomen normal to inspection Percussion/Palpation: abdomen soft; abdomen nontender Musculoskeletal: Extremities: extremities normal to inspection Skin: no rashes Neurologic: no focal motor deficits and not confused Psychiatric: Orientation: alert and oriented x 3 Affect: euthymic affect Results & Data ([facility]) Vital Signs (Past 12 Hours) Vital Signs Temp Pulse Pulse Resp BP Pulse Ox O2 Del Method 08/07/22 08:03 36.4 C L 93 H 20 128/63 93 Nasal Cannula 08/07/22 07:30 69 08/07/22 07:30 Nasal Cannula 08/07/22 06:59 81 18 90 Room Air 08/07/22 03:35 36.4 C L 65 18 116/61 96 Nasal Cannula 08/06/22 22:46 36.3 C L 78 18 127/68 95 Nasal Cannula 08/06/22 23:06 85 O2 Flow Rate 08/07/22 08:03 2 08/07/22 07:30 08/07/22 07:30 2.5 08/07/22 06:59 08/07/22 03:35 2.0 08/06/22 22:46 2.0 08/06/22 23:06 PG Care Time/CCT Total # of Minutes Spent Total Time Spent with Patient: Total time spent is greater than 50% in coordination of care (as documented) at patient's floor/unit and/or counseling patient: Coding Level of Care Code 07668 Initial Inpt Care Lvl 3 Diagnoses Bavpx-tk-boxhwpl kidney injury N17.9; N18.9 Acute and chronic respiratory failure with hypoxia J96.21 Anemia N18.4; D63.1 Anemia type: due to chronic kidney disease Chronic kidney disease stage: stage 4 (severe) HTN (hypertension) I10 Hypertension type: essential hypertension (1) Anemia Anemia type: due to chronic kidney disease Chronic kidney disease stage: stage 4 (severe) Qualified Code(s): N18.4 - Chronic kidney disease, stage 4 (severe); D63.1 - Anemia in chronic kidney disease (2) HTN (hypertension) Hypertension type: essential hypertension Qualified Code(s): I10 - Essential (primary) hypertension
--- NOTE | 2022-08-07 09:52 | XCELERA ---
[id number]
[2022-08-07] MEDS: AZITHROMYCIN 250 MG TAB PO SCH (10:04)
[2022-08-07] MEDS: predniSONE 20 MG TAB PO SCH ×2 (10:05→19:57)
[2022-08-07] MEDS ORDERED: Nursing to Pharmacy Communication SCH (10:15)
[2022-08-07] MEDS ORDERED: FUROSEMIDE 40 MG/4 ML VIAL IV ONE (10:30)
[2022-08-07] MEDS ORDERED: cefTRIAXone SODIUM 2,000 MG in DEXTROSE 5% 50 ML IV SCH (11:30)
[2022-08-07] MEDS ORDERED: AZITHROMYCIN 500 MG in DEXTROSE 5% 250 ML IV SCH (12:00)
[2022-08-07] MEDS: FERROUS SULFATE 325 MG TAB PO SCH (19:56)
[2022-08-07] MEDS: ATORVASTATIN 40 MG TAB PO SCH (19:58)
[2022-08-07] MEDS: ASPIRIN 81 MG ECTAB PO SCH (19:59)
--- NOTE | 2022-08-08 05:55 | Hospitalist Progress Note ---
Date of Service August 07, 2022 Assessment & Plan (1) Acute respiratory failure with hypoxia: Plan: Presented with RR in the mid 20s and pulse ox readings in the 70s. Corrected with NC O2 - 2-3 L. Appreciate pulmonary evaluation by Dr Perdomo. 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 H/o COPD. Current clinical picture could be infectious vs inflammatory vs cardiac/renal (ie pulmonary edema) vs other. Echo findings noted with depressed EF. Renal function is worse relative to baseline. Check sed rate/crp in am. Agree with Dr Perdomo that pulmonary infection is unlikely cause of presentation but reasonable to complete 5-day course of azithromycin. Of note - QTc on EKG is top-normal. Agree with diuresis as provided by Dr Kearns from nephrology. Dr Perdomo has weaned steroids to PO prednisone in the event that hypoxia is due to hypersensitivity pneumonitis. Re-eval in am. (2) Vstay-ds-slmbwdu kidney injury: Plan: Baseline creatinine is around 3, today is 3.6. Baseline CrCl 20s c/w CKD stage 4. Follows with Dr Kearns in nephrology clinic. Previously had dialysis after lymphoma diagnosis in 2019, however has not had dialysis since then. Mature right radiocephalic AV fistula intact. I agree with Dr Kearns's plan to provide gentle diuresis and re-eval tomorrow. Between systolic CHF and poor renal function some of his hypoxia and lung findi ngs may be edema. BMP in am. 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 Has upcoming vascular procedure at [facility] next Tuesday 08/14 by report. Continue aspirin, Plavix, statin. 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 Stent was done in [place]. He has not had obvious ischemic symptoms recently. Continue DAPT with aspirin and Plavix Cont statin Of note - with newly discovered cardiomyopathy ideally he should have an ischemic evaluation with cardiac cath but this would likely lead to needing hemodialysis Consider consulting cardiology but hold off for now (7) GERD (gastroesophageal reflux disease): Plan: PPI while here (8) Anemia: Plan: Secondary to CKD stage 4 (9) B-cell lymphoma: Plan: In remission, still has a port in place. S/p R-CHOP in 2019. Did chemo lead to his cardiomyopathy?? (10) MAEGAN (obstructive sleep apnea): Plan: Wears 5L NC at night at baseline (11) Hypercholesteremia: Plan: Continue atorvastatin. (12) Depression: Plan: Continue citalopram. (13) Cardiomyopathy: Plan: echo with EF 30-35% echo in 2019 with preserved EF global hypokinesis seen on today's echo 2nd to prior chemo for lymphoma? ischemic due to established CAD? 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 #1 above Admission and Anticipated Discharge Date Admission Date: August 06, 2022 Subjective patient sitting in chair by window only complaint is a nagging cough that is worsened by moving and walking mild TREVINO as well cough is productive of white, milky sputum no hemoptysis no dyspnea at rest no chest pain fair appetite no fevers or chills confirms that Rx for NHL was in 2019 (R-CHOP) Review of Systems Review of Systems: gen - no recent weight loss cv - no chest pain, some orthopnea; no LE edema pulm - no wheezing GI - no nausea/emesis Physical Exam Physical Exam: gen - comfortable, pleasant, NAD neck - no obvious JVD sitting upright mouth - no thrush, MMM heart - RRR, s1 s2, 2/6 systolic murmur LSB lungs - fine bibasilar rales about 1[address] up back, no wheezes, no increased work of breathing abd - soft NT ND BS+; no hepatomegaly ext - no edema, pulses 2+ b/l psych - a/o x 3 Results & Data Results & Data ([facility]) Vital Signs (Past 12 Hours) Vital Signs Temp Pulse Pulse Resp BP Pulse Ox O2 Del Method 08/08/22 03:55 36.6 C 66 18 135/69 95 Nasal Cannula 08/07/22 23:47 80 08/07/22 23:34 36.4 C L 84 14 137/78 94 Nasal Cannula 08/07/22 20:50 36.7 C 82 16 143/76 H 94 Nasal Cannula 08/07/22 19:22 Nasal Cannula O2 Flow Rate 08/08/22 03:55 2.0 08/07/22 23:47 08/07/22 23:34 2.5 08/07/22 20:50 2.5 08/07/22 19:22 2.5 Laboratory Results Laboratory Results - last 24 hr 08/07/22 08/07/22 08/07/22 07:58 08:04 08:04 Troponin I High Sens 16.4 Procalcitonin 0.27 Hepatitis C Ab (EIA) Pending Hep C Ab Signal/Cutoff Pending Cr 3.6 this am procal normal Diagnostic Findings Chest X-Ray 08/06/22 09:32 XR chest 1V portable CLINICAL HISTORY: Dyspnea. COMPARISON STUDY: Chest CT November 28, 2021. FINDINGS: Left internal jugular Xpwufl-y-Kuih remains in place. Tip is unchanged in position, within the left brachiocephalic vein. There is no pneumothorax or pleural effusion. No consolidation is identified. Cardiomegaly is unchanged. Mild interstitial thickening is noted. Suspected slight increased since prior CT. IMPRESSION: Increase in mild nonspecific interstitial thickening. No consolidation. ACT 112: Negative or not required by law. Electronically signed by: Virgil Pinzon M.D. 08/06/2022 9:55 AM Echo - EF 30-35%; global hypokinesis PG Care Time/CCT Total # of Minutes Spent Total Time Spent with Patient: Total time spent is greater than 50% in coordination of care (as documented) at patient's floor/unit and/or counseling patient: Coding Level of Care Code 35304 Subseq Hosp Care Lvl 3 Diagnoses Acute respiratory failure with hypoxia J96.01 Yxbig-qi-ykjhxpu kidney injury N17.9; N18.9 Chronic kidney disease, stage IV (severe) N18.4 Elevated troponin R77.8 PAD (peripheral artery disease) I73.9 Coronary artery disease I25.10 Coronary Disease-Associated Artery/Lesion type: [place] artery [place] vs. transplanted heart: [place] heart Associated angina: without angina GERD (gastroesophageal reflux disease) K21.9 Esophagitis presence: without esophagitis Anemia N18.4; D63.1 Anemia type: due to chronic kidney disease Chronic kidney disease stage: stage 4 (severe) B-cell lymphoma C83.38 B-cell lymphoma type: diffuse large B-cell Lymphoma site: multiple regions MAEGAN (obstructive sleep apnea) G47.33 Hypercholesteremia E78.00 Depression F32.9 Cardiomyopathy I42.9 UTI (urinary tract infection) N39.0 Hypersensitivity pneumonitis J67.9 (1) Coronary artery disease Coronary Disease-Associated Artery/Lesion type: [place] artery [place] vs. transplanted heart: [place] heart Associated angina: without angina Qualified Code(s): I25.10 - Atherosclerotic heart disease of [place] coronary artery without angina pectoris (2) GERD (gastroesophageal reflux disease) Esophagitis presence: without esophagitis Qualified Code(s): K21.9 - Gastro- esophageal reflux disease without esophagitis (3) Anemia Anemia type: due to chronic kidney disease Chronic kidney disease stage: stage 4 (severe) Qualified Code(s): N18.4 - Chronic kidney disease, stage 4 (severe); D63.1 - Anemia in chronic kidney disease (4) B-cell lymphoma 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
[2022-08-08 06:32] LABS: Albumin Level 3.6 gm/dl (3.4-5.0); BUN Creatinine Ratio 22.9 (10-20); C Reactive Protein 5.4 mg/dl (0-0.5); Calcium 8.8 mg/dl (8.5-10.1); Creatinine Clr Calc Pharmacy 17.3 ml/min; Est GFR (African American) 16.3 ml/min; Phosphorus 5.4 mg/dl (2.5-4.9); Potassium 4.3 mmol/L (3.5-5.1)
[2022-08-08] MEDS: guaiFENesin 600 MG TABCR PO SCH ×2 (08:46→21:09)
[2022-08-08] MEDS: PANTOprazole 40 MG TAB PO SCH (08:46)
[2022-08-08] MEDS: FLUTICASONE FUROATE 100MCG 14 PUFFS/INHALER INH SCH (08:46)
[2022-08-08] MEDS: HEPARIN SOD 5,000 UNIT/0.5 ML VIAL SQ SCH ×2 (08:46→21:08)
[2022-08-08] MEDS: UMECLIDINIUM/VILANTEROL 62.5/25MCG 7 PUFFS/INHALER INH SCH (08:47)
[2022-08-08] MEDS: predniSONE 20 MG TAB PO SCH ×2 (08:47→21:07)
[2022-08-08] MEDS: AZITHROMYCIN 250 MG TAB PO SCH (08:47)
--- NOTE | 2022-08-08 09:20 | Pulmonology Progress Note ---
Date of Service August 08, 2022 Assessment & Plan (1) Hypoxia: (2) Elevated troponin: (3) Syifa-ih-kjajkxo kidney injury: (4) Acute and chronic respiratory failure with hypoxia: (5) ILD (interstitial lung disease): (6) Abnormal chest CT: Plan Impression: 77-year-old male with history of chronic kidney disease, prior B- cell lymphoma status post R-CHOP therapy, potential hypersensitivity pneumonitis admitted with increasing work of breathing and hypoxemia which is a new finding compared to 6 or 8 weeks ago. Differential would include fluid overload (BNP mildly elevated), progression of interstitial lung disease, with atypical infection felt to be less likely. He is markedly better this morning and its unclear if this is related to steroids or potentially the diuretic dose that he received yesterday. I would favor the latter. Recommendations: 1. Hypoxemia: Continue supplemental oxygen titrated to keep saturations at or above 88%. Recommend performing formal two-step prior to dismissal from the hospital. We will likely need to repeat pulmonary function tests in an outpatient setting. Patient can follow-up with Dr. Grande in pulmonary clinic 2. Potential hypersensitivity pneumonitis: Serological evaluation was unrevealing in the past. 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 Recommend prednisone 40 mg a day and taper over next 4 weeks. Given the robust bronchodilator response on his outpatient PFTs, will continue Anoro/Arnuity for now. Can use the nebulized bronchodilators on an as-needed basis but these do not need to be scheduled. 3. Sleep disordered breathing: The patient has declined therapy for sleep apnea in the past. His family reiterates that he has a very significant sleep disordered breathing. Reassessing in the outpatient setting may be appropriate. 4. Questionable pneumonia. The patient was placed on azithromycin on presentation. Procal negative, discontinue abx. 5. Chronic kidney disease: Diuretics per nephrology. This may be the result of the patient's improved clinical status Patient appears significantly better at this point time and is asking about potential discharge home. From a pulmonary standpoint, he appears to have achieved benefit from inpatient hospitalization and is appropriate for transition to the outpatient setting. Again he can follow-up as noted above. Pulmonary will sign off at this point time. Feel free to contact us with additional questions or concerns Admission and Anticipated Discharge Date Admission Date: August 06, 2022 Subjective Patient seen and examined. EMR reviewed. Patient is sitting up to chair. His breathing appears much less labored than yesterday. He states he has been walking the halls without oxygen and feels that his breathing is improved significantly from presentation. He was seen by nephrology and given a dose of diuretics yesterday. He is not coughing or expectorating any phlegm. No wheezing. Review of Systems Review of Systems: All systems reviewed & are unremarkable except as noted in Subjective Physical Exam Constitutional: WD/WN, vitals as above Neck: trachea midline, no thyromegaly Respiratory: no respiratory distress, no labored breathing and not tachypneic Auscultation: + crackles; no wheezes Cardiovascular: Rate/Rhythm: regular rate Heart Sounds: normal S1, normal S2 and + murmur Extremities: + edema Gastrointestinal (Abdomen): normal bowel sounds, soft, nontender, no hepatosplenomegaly Musculoskeletal: Extremities: extremities normal to inspection Skin: no rashes, warm and dry Lymphatic: no cervical lymphadenopathy Results & Data Results & Data ([facility]) Vital Signs (Past 12 Hours) Vital Signs Temp Pulse Pulse Resp BP Pulse Ox O2 Del Method 08/08/22 09:02 75 08/08/22 09:02 Room Air, Nasal Cannula 08/08/22 07:30 36.4 C L 74 18 144/62 H 94 Nasal Cannula 08/08/22 03:55 36.6 C 66 18 135/69 95 Nasal Cannula 08/07/22 23:47 80 08/07/22 23:34 36.4 C L 84 14 137/78 94 Nasal Cannula O2 Flow Rate 08/08/22 09:02 08/08/22 09:02 08/08/22 07:30 2 08/08/22 03:55 2.0 08/07/22 23:47 08/07/22 23:34 2.5 I/O: -490 Laboratory Results 08/07/22 02:00 08/08/22 05:49 PG Care Time/CCT Total # of Minutes Spent Total Time Spent with Patient: Total time spent is greater than 50% in coordination of care (as documented) at patient's floor/unit and/or counseling patient: Coding Level of Care Code 59678 Subseq Hosp Care Lvl 2 Diagnoses Hypoxia R09.02 Elevated troponin R77.8 Mphsk-kc-qbbpudq kidney injury N17.9; N18.9 Acute and chronic respiratory failure with hypoxia J96.21 ILD (interstitial lung disease) J84.[address] R93.89
--- NOTE | 2022-08-08 09:26 | Nephrology Progress Note ---
Date of Service August 08, 2022 Assessment & Plan (1) Xlxco-jy-pwoaybp kidney injury: (2) Acute and chronic respiratory failure with hypoxia: (3) Anemia: (4) HTN (hypertension): Plan 77-year-old gentlemen with stage IV CKD secondary to microvascular disease and prior dialysis requiring dense KATHY, history of B-cell lymphoma treated with R- CHOP, history of smoking, COPD with emphysema and interstitial lung disease, admitted with progressive worsening of shortness of breath and noted to be hypoxic on admission. Started on steroid, azithromycin and nebulizer without significant improvement in respiratory distress. Although clinically does not seem volume overloaded, exam and chest x-ray suggestive of some mild pulmonary vascular congestion and echo showed significant drop in EF to 30-35% compared to prior. Baseline creatinine has been around 3 with some variability, since admission creatinine has been 3.5-3.6, electrolyte acceptable. Has UTI with 4+ bacteria and recent repeated episodes of dysuria. Further worsening of renal function but has been voiding normally and electrolyte has been acceptable. Blood pressure well controlled. -- monitor intake and output, hold diuretics today and use as needed. -- repeat phos in am and check PTH, if remains elevated, consider binder -- dose medications for eGFR less than 15 Will follow. Admission and Anticipated Discharge Date Admission Date: August 06, 2022 Osman Jackson was seen and examined this morning. Overall he is feeling better, SOB improved and he was walking the hallway without significant SOB. Vital signs are otherwise stable. Received 1 dose of Lasix yesterday, had decent UO but BUN/cr worsened. Review of Systems Review of Systems: Detail ROS was otherwise unremarkable except mentioned above. Physical Exam Constitutional: WD/WN, vitals as above Eyes: + anicteric sclerae Neck: normal visual inspection Respiratory: Auscultation: + diminished lung sounds and + crackles Cardiovascular: Rate/Rhythm: regular rate and regular rhythm Heart Sounds: normal S1 and normal S2 Extremities: + AV fistula (rt RC A allvf with thrill and brit.); no edema Musculoskeletal: Extremities: extremities normal to inspection Skin: no rashes Neurologic: no focal motor deficits Psychiatric: Orientation: alert and oriented x 3 Affect: euthymic affect Results & Data ([facility]) Vital Signs (Past 12 Hours) Vital Signs Temp Pulse Pulse Resp BP Pulse Ox O2 Del Method 08/08/22 09:02 75 08/08/22 09:02 Room Air, Nasal Cannula 08/08/22 07:30 36.4 C L 74 18 144/62 H 94 Nasal Cannula 08/08/22 03:55 36.6 C 66 18 135/69 95 Nasal Cannula 08/07/22 23:47 80 08/07/22 23:34 36.4 C L 84 14 137/78 94 Nasal Cannula O2 Flow Rate 08/08/22 09:02 08/08/22 09:02 08/08/22 07:30 2 08/08/22 03:55 2.0 08/07/22 23:47 08/07/22 23:34 2.5 PG Care Time/CCT Total # of Minutes Spent Total Time Spent with Patient: Total time spent is greater than 50% in coordination of care (as documented) at patient's floor/unit and/or counseling patient: Coding Level of Care Code 49550 Subseq Hosp Care Lvl 3 Diagnoses Cqrwo-zo-pbonwis kidney injury N17.9; N18.9 Acute and chronic respiratory failure with hypoxia J96.21 Anemia N18.4; D63.1 Anemia type: due to chronic kidney disease Chronic kidney disease stage: stage 4 (severe) HTN (hypertension) I10 Hypertension type: essential hypertension (1) Anemia Anemia type: due to chronic kidney disease Chronic kidney disease stage: stage 4 (severe) Qualified Code(s): N18.4 - Chronic kidney disease, stage 4 (severe); D63.1 - Anemia in chronic kidney disease (2) HTN (hypertension) Hypertension type: essential hypertension Qualified Code(s): I10 - Essential (primary) hypertension
[2022-08-08] MEDS: CLOPIDOGREL BISULFATE 75 MG TAB PO SCH (21:08)
[2022-08-08] MEDS: FINASTERIDE 5 MG TAB PO SCH (21:08)
[2022-08-08] MEDS: CITALOPRAM 20 MG TAB PO SCH (21:09)
[2022-08-08] MEDS: ASPIRIN 81 MG ECTAB PO SCH (21:09)
[2022-08-08] MEDS: FERROUS SULFATE 325 MG TAB PO SCH (21:09)
[2022-08-08] MEDS: ATORVASTATIN 40 MG TAB PO SCH (21:10)
--- NOTE | 2022-08-08 21:13 | Hospitalist Progress Note ---
Date of Service August 08, 2022 Assessment & Plan (1) Acute respiratory failure with hypoxia: Plan: Presented with RR in the mid 20s and pulse ox readings in the 70s. Corrected with NC O2 - 2-3 L. Appreciate pulmonary evaluation by Dr Perdomo. 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 H/o COPD. Current clinical picture could be infectious vs inflammatory vs cardiac/renal (ie pulmonary edema) vs other. Echo findings noted with depressed EF. Renal function is worse relative to baseline. Now much improved with steroids and also received IV lasix x [address] Perdomo that pulmonary infection is unlikely cause of presentation- stopped all abx as per PULM -continue prednisone 20mg po bid on discharge and taper over 4 weeks and f/u with PULM for repeat PFTs -continue Anoro/Arnuity inhaler -2 step walk test in AM to see if needs O2 on discharge (2) Dlpsy-pc-puwwyil kidney injury: Plan: Baseline creatinine is around 3, today up further to 3.88 after receiving IV lasix Baseline CrCl 20s c/w CKD stage 4. Follows with Dr Kearns in nephrology clinic. Previously had dialysis after lymphoma diagnosis in 2019, however has not had dialysis since then. Mature right radiocephalic AV fistula intact. Between systolic CHF and poor renal function some of his hypoxia and lung findings may be edema. hold any further lasix at this time BMP, phos, Fe studies, iPTH in am. (3) Chronic kidney disease, stage IV (severe): Plan: baseline Cr about 3 baseline CrCl low 20s (4) Elevated troponin: Plan: no evidence of ACS likely myocardial demand ischemia in setting of #1 (5) PAD (peripheral artery disease): Plan: S/p [employer] of distal stenosis right femoral posterior tibial bypass graft in January 2021. Has upcoming vascular procedure at [facility] next Tuesday 08/14 by report which has now been pushed back Continue aspirin, Plavix, statin. -pt requests I call down to speak to Dr. 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 Stent was done in [place]. He has not had obvious ischemic symptoms recently. Continue DAPT with aspirin and Plavix Cont statin Of note - with newly discovered cardiomyopathy ideally he should have an ischemic evaluation with cardiac cath but this would likely lead to needing hemodialysis Consider consulting cardiology but hold off for now-f/u as outpt (7) GERD (gastroesophageal reflux disease): Plan: PPI while here (8) Anemia: Plan: Secondary to CKD stage 4 check Fe studies in AM (9) B-cell lymphoma: Plan: In remission, still has a port in place. S/p R-CHOP in 2019. Did chemo lead to his cardiomyopathy?? (10) MAEGAN (obstructive sleep apnea): Plan: Wears 5L NC at night at baseline declines CPAP (11) Hypercholesteremia: Plan: Continue atorvastatin. (12) Depression: Plan: Continue citalopram. (13) Cardiomyopathy: Plan: echo with EF 30-35% echo in 2019 with preserved EF global hypokinesis seen on echo here 2nd to prior chemo for lymphoma? ischemic due to established CAD? 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 Ambulated the halls several times today. Is down to 1LNC at rest but walked without O2 today also. Making urine. Tele with NSR rates 70-80s Review of Systems Review of Systems: All systems reviewed & are unremarkable except as noted in HPI & below Physical Exam Physical Exam: gen - comfortable, pleasant, NAD heart - RRR, s1 s2,no mgr lungs - fine bibasilar rales bilat,no wheezes, no increased work of breathing abd - soft NT ND BS+; no hepatomegaly ext - no edema, pulses 2+ b/l psych - a/o x 3 Results & Data Results & Data ([facility]) Vital Signs (Past 12 Hours) Vital Signs Temp Pulse Resp BP BP Pulse Ox Pulse Ox 08/08/22 19:32 36.3 C L 77 18 144/72 H 97 08/08/22 15:58 36.4 C L 75 20 145/79 H 97 08/08/22 14:00 95 08/08/22 11:02 36.5 C 77 18 155/77 H 95 O2 Del Method O2 Del Method O2 Flow Rate O2 Flow Rate 08/08/22 19:32 Nasal Cannula 1 08/08/22 15:58 Nasal Cannula 1 08/08/22 14:00 Nasal Cannula 1 08/08/22 11:02 Nasal Cannula 1 Laboratory Results 08/08/22 08/08/22 08/07/22 Range/Units 05:49 05:49 08:04 ESR 42 H (0-20) mm/hr Sodium 137 (136-145) mmol/L Potassium 4.3 (3.5-5.1) mmol/L Chloride 104 (98-107) mmol/L Carbon Dioxide 21 (21-32) mmol/L Anion Gap 12 H (3-11) BUN 89 H D (6-23) mg/dl Creatinine 3.88 H (0.6-1.4) mg/dl Est Cr Clr Drug Dosing 17.3 ml/min Est GFR ( Amer) 16.3 ml/min Est GFR (Non-Af Amer) 14.0 ml/min BUN/Creatinine Ratio 22.9 H (10-20) Glucose 121 H (70-99(Fasting)) mg/dl Calcium 8.8 (8.5-10.1) mg/dl Phosphorus 5.4 H (2.5-4.9) mg/dl C-Reactive Protein 5.40 H (0-0.5) mg/dl Albumin 3.6 (3.4-5.0) gm/dl Hepatitis C Ab (EIA) NON-REACTIVE (NON-REACTIVE) Hep C Ab Signal/Cutoff 0.03 (<1.00) PG Care Time/CCT Total # of Minutes Spent Total Time Spent with Patient: Total time spent is greater than 50% in coordination of care (as documented) at patient's floor/unit and/or counseling patient: Coding Level of Care Code 82442 Subseq Hosp Care Lvl 2 Diagnoses Acute respiratory failure with hypoxia J96.01 Xnlmq-pz-eliuwua kidney injury N17.9; N18.9 Chronic kidney disease, stage IV (severe) N18.4 Elevated troponin R77.8 PAD (peripheral artery disease) I73.9 Coronary artery disease I25.10 Coronary Disease-Associated Artery/Lesion type: [place] artery [place] vs. transplanted heart: [place] heart Associated angina: without angina GERD (gastroesophageal reflux disease) K21.9 Esophagitis presence: without esophagitis Anemia N18.4; D63.1 Anemia type: due to chronic kidney disease Chronic kidney disease stage: stage 4 (severe) B-cell lymphoma C83.38 B-cell lymphoma type: diffuse large B-cell Lymphoma site: multiple regions MAEGAN (obstructive sleep apnea) G47.33 Hypercholesteremia E78.00 Depression F32.9 Cardiomyopathy I42.9 UTI (urinary tract infection) N39.0 Hypersensitivity pneumonitis J67.9 (1) Coronary artery disease Coronary Disease-Associated Artery/Lesion type: [place] artery [place] vs. transplanted heart: [place] heart Associated angina: without angina Qualified Code(s): I25.10 - Atherosclerotic heart disease of [place] coronary artery without angina pectoris (2) GERD (gastroesophageal reflux disease) Esophagitis presence: without esophagitis Qualified Code(s): K21.9 - Gastro- esophageal reflux disease without esophagitis (3) Anemia Anemia type: due to chronic kidney disease Chronic kidney disease stage: stage 4 (severe) Qualified Code(s): N18.4 - Chronic kidney disease, stage 4 (severe); D63.1 - Anemia in chronic kidney disease (4) B-cell lymphoma 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
[2022-08-09] MEDS: predniSONE 20 MG TAB PO SCH ×2 (08:20→20:30)
[2022-08-09] MEDS: guaiFENesin 600 MG TABCR PO SCH ×2 (08:20→20:29)
[2022-08-09] MEDS: carvediloL 3.125 MG TAB PO SCH ×2 (08:20→20:30)
[2022-08-09] MEDS: PANTOprazole 40 MG TAB PO SCH (08:20)
[2022-08-09] MEDS: HEPARIN SOD 5,000 UNIT/0.5 ML VIAL SQ SCH ×2 (08:21→20:31)
[2022-08-09] MEDS: FLUTICASONE FUROATE 100MCG 14 PUFFS/INHALER INH SCH (08:21)
[2022-08-09] MEDS: UMECLIDINIUM/VILANTEROL 62.5/25MCG 7 PUFFS/INHALER INH SCH (08:21)
[2022-08-09 09:18] LABS: Hematocrit (blood only) 36.9 % (40.1-51.0); Hemoglobin 12.2 g/dl (14.0-18.0); Mean Corpuscular Hemoglobin 31.3 pg (25.0-34.0); Mean Corpuscular Hgb Conc 33.1 g/dL (32.0-36.0); Mean Corpuscular Volume 94.6 fL (80.0-100.0); Mean Platelet Volume 9.2 fL (9.4-12.4); Platelet Count 314 K/uL (130-400); RDW Coefficient of Variation 14.6 % (11.5-14.5); RDW Standard Deviation 50.6 fL (36.4-46.3); White Blood Count 11.36 K/ul (4.8-10.8)
[2022-08-09 10:23] LABS: Albumin Level 3.8 gm/dl (3.4-5.0); BUN Creatinine Ratio 24.7 (10-20); Calcium 9.4 mg/dl (8.5-10.1); Creatinine Clr Calc Pharmacy 17.4 ml/min; Est GFR (African American) 16.5 ml/min; Est GFR (Non-African American) 14.2 ml/min; Phosphorus 5.1 mg/dl (2.5-4.9); Potassium 4.3 mmol/L (3.5-5.1)
--- NOTE | 2022-08-09 10:40 | Nephrology Progress Note ---
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 Started on steroid, azithromycin and nebulizer without significant improvement in respiratory distress. Although clinically does not seem volume overloaded, exam and chest x-ray suggestive of some mild pulmonary vascular congestion and echo showed significant drop in EF to 30-35% compared to prior. Baseline creatinine has been around 3 with some variability, since admission creatinine has been 3.5-3.6, electrolyte acceptable. Has UTI with 4+ bacteria and recent repeated episodes of dysuria. Overall clinically doing better but no improvement in renal function. Blood pressure well controlled, volume status acceptable.. -- monitor intake and output, continue to hold diuretics -- dose medications for eGFR less than 15 -- Hold discharge until improvement in kidney function electrolyte Will follow. Admission and Anticipated Discharge Date Admission Date: August 06, 2022 Osman Jackson was seen and examined this morning. No overnight events, feeling better, SOB improved,walking the hallway without significant SOB. Vital signs are otherwise stable. Decent UO off of diuretics, BP acceptable but no improvement in renal function. Review of Systems Review of Systems: Detail ROS was otherwise unremarkable except mentioned above. Physical Exam 2 Constitutional: WD/WN, vitals as above Eyes: + anicteric sclerae Neck: normal visual inspection Respiratory: Auscultation: + diminished lung sounds; no crackles Cardiovascular: Rate/Rhythm: regular rate and regular rhythm Heart Sounds: normal S1 and normal S2 Extremities: + AV fistula (rt RC A allvf with thrill and brit.); no edema Musculoskeletal: Extremities: extremities normal to inspection Skin: no rashes Neurologic: no focal motor deficits Psychiatric: Orientation: alert and oriented x 3 Affect: euthymic affect Results & Data ([facility]) Vital Signs (Past 12 Hours) Vital Signs Temp Pulse Pulse Pulse Pulse Pulse Resp 08/09/22 08:31 36.6 C 85 14 08/09/22 07:28 82 90 79 08/09/22 03:20 36.3 C L 81 18 08/08/22 23:16 36.4 C L 77 18 08/08/22 22:49 78 Resp Resp Resp BP Pulse Ox Pulse Ox Pulse Ox 08/09/22 08:31 141/85 H 95 08/09/22 07:28 20 19 18 94 93 08/09/22 03:20 139/76 96 08/08/22 23:16 142/82 H 93 08/08/22 22:49 Pulse Ox O2 Del Method 08/09/22 08:31 Room Air 08/09/22 07:28 95 08/09/22 03:20 Room Air 08/08/22 23:16 Room Air 08/08/22 22:49 PG Care Time/CCT Total # of Minutes Spent Total Time Spent with Patient: Total time spent is greater than 50% in coordination of care (as documented) at patient's floor/unit and/or counseling patient: Coding Level of Care Code 03283 Subseq Hosp Care Lvl 3 Diagnoses Nfwzy-eu-voxnqgo kidney injury N17.9; N18.9 Acute and chronic respiratory failure with hypoxia J96.21 Anemia N18.4; D63.1 Anemia type: due to chronic kidney disease Chronic kidney disease stage: stage 4 (severe) HTN (hypertension) I10 Hypertension type: essential hypertension Metabolic acidosis E87.20 (1) Anemia Anemia type: due to chronic kidney disease Chronic kidney disease stage: stage 4 (severe) Qualified Code(s): N18.4 - Chronic kidney disease, stage 4 (severe); D63.1 - Anemia in chronic kidney disease (2) HTN (hypertension) Hypertension type: essential hypertension Qualified Code(s): I10 - Essential (primary) hypertension
[2022-08-09] MEDS ORDERED: CEFDINIR 300 MG CAP PO SCH (10:45)
--- NOTE | 2022-08-09 16:06 | Cardiology Consultation ---
Date of Consultation August 09, 2022 Assessment & Plan (1) Cardiomyopathy: (2) Acute respiratory failure with hypoxia: (3) Elevated troponin: (4) Coronary artery disease: Plan 1. Cardiomyopathy: This was not previously documented. He has severe global hypokinesis. He did not present with symptoms of angina. No significant elevation in the cardiac biomarkers suggested recent acute coronary event. It is very likely this represents a nonischemic cardiomyopathy. It is also unclear duration. Very possibly related to his chemotherapy which did include doxorubicin. Certainly the most likely etiology for the cardiomyopathy in his demographic would be coronary disease. It is possible to perform noninvasive imaging, but a definitive diagnosis or treatment of any coronary disease would involve angiography. This is relatively contraindicated given his severe renal dysfunction. At this point I think we could initiate medical therapy with metoprolol succinate 25 mg daily. Entresto and Harley/ARB seems relatively contraindicated given his renal dysfunction. I think spironolactone would also be an unattractive option currently. Unfortunately, he appears to be a poor candidate for Jardiance or Farxiga is unlikely to derive benefit given his degree of renal dysfunction. We did not discuss device therapy such as a prophylactic ICD at this is a new diagnosis he will need to monitor his response to treatment over time before recommending any device. 2. Dyspnea: He may have had an element of pulmonary vascular congestion at the time of admission. However, his lung exam seems fairly benign currently. BNP was only mildly elevated at the time of admission. I suspect his LV dysfunction is more chronic. He likely has been well compensated until recently. No think he requires a daily diuretic. I think he requires any additional diuretic, and efforts have been made not to give diuretics recently. 3. Elevated troponin: Very mild elevation. Likely related to his renal dysfunction and cardiomyopathy. No evidence of a recent acute coronary syndrome. 4. Coronary disease: Remote history of PCI to an unknown vessel. He has not recall any chest pain or symptoms leading up to that event. According to the patient he was simply being screened for an exposure event and eventually underwent angiography with the aforementioned findings and procedure. Maintained on Plavix, aspirin and high-dose atorvastatin History of Present Illness Reason for Consultation: Cardiomyopathy Requesting Physician: Aiden Attending Physician: Roslyn Wolfe MD History of Present Illness The patient is a 77-year-old gentleman with a history of coronary artery disease having previously undergone percutaneous intervention to an unknown vessel, peripheral vascular disease, renal insufficiency, COPD and non-Hodgkin's lymphoma status post chemotherapy. The patient reported progressively worsening dyspnea on exertion over several days prompting admission. He is noted to be hypoxic at the time of presentation. He was treated for COPD exacerbation and possible mild pulmonary vascular congestion. Routine echocardiogram was performed during his hospitalization in his left ventricular function was noted to be severely reduced. This is in contrast to a study performed in 2019. The patient states that normally he is very active individual. 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 He denies limiting dyspnea usually. He has not had recent symptoms of exertional chest pain or chest pain at rest. He generally sleeps well and did not report orthopnea although he has been sleeping in a chair for many years since a back surgery. He has not noticed any worsening lower extremity edema. Does have some chronic lower extremity edema primarily in the right lower extremity. He denies dizziness or lightheadedness. He has not been aware of any palpitations. He states that his breathing is improved since admission. Allergies Allergy/AdvReac Type Severity Reaction Status Date / Time No Known Drug Allergies Allergy Unknown NKDA Verified 06/21/22 13:59 Home Medications Medication Instructions Recorded Confirmed Type atorvastatin 80 mg tablet (Lipitor) 80 mg PO HS #0 tabs 12/21/14 08/06/22 History finasteride 5 mg tablet 5 mg PO QAM 12/04/18 08/06/22 History aspirin 81 mg tablet,delayed 81 mg PO QPM 12/26/18 08/06/22 History release (Aspir-) clopidogrel 75 mg tablet 75 mg PO DAILY 09/15/21 08/06/22 History ferrous sulfate 325 mg (65 mg 650 mg PO .COMPLEX 12/20/21 08/06/22 History iron) tablet albuterol sulfate 90 mcg/actuation 2 puff inhalation Q6H PRN 06/21/22 08/06/22 Rx aerosol inhaler Shortness Of Breath Or Wheezing #18 grams epoetin neptali 20,000 unit/mL 20,000 unit subcut MONTHLY #1 mL 06/29/22 08/06/22 Rx injection solution (Procrit) fluticasone fur. 100 mcg-umeclid 1 inh inhalation DAILY #60 ea 07/10/22 08/06/22 Rx 62.5 mcg-vilant 25 mcg inhalat.powder (Trelegy Ellipta) citalopram 20 mg tablet 20 mg PO DAILY 08/06/22 08/06/22 History Patient History Medical History (Updated 08/09/22 @ 16:02 by Kyree Davis MD) Anemia ARF (acute renal failure) 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 Chronic back pain Chronic renal disease, stage IV Coronary artery disease Deep vein thrombosis Deep vein thrombosis ~ Depression Hearing deficit Hemodialysis patient LAST DIAYLSIS FEBRUARY 11, 2019. NEPHROLOGY HAS STOPPED DIAYLSIS FOR THE TIME. Hyperkalemia Hypertension Liver mass Metabolic acidosis Metabolic acidosis On anticoagulant therapy Osteoarthritis Peripheral neuropathy Peripheral vascular disease Pneumonia 3 YRS AGO Secondary hyperparathyroidism of renal origin Sleep apnea NON-COMPLIANT Vitamin D deficiency Surgical History H/O vascular surgery REMOVAL OF DVT History of cardiac cath X1. FOLLOWS WITH DR JOYNER History of colonoscopy History of esophagogastroduodenoscopy (EGD) History of heart artery stent History of lumbar discectomy History of umbilical hernia repair S/P femoral-femoral bypass surgery RIGHT LEG Family History Mother FHx: lung cancer FHx: uterine cancer Other Allergy Cancer Diabetes Heart disease Lung cancer Lung disease Denies family history of Tuberculosis Emphysema of lung Asthma Social History Smoking Status: Former smoker Tobacco Type: Cigarettes packs per day: 1; Number of Years Since Quit: 25; Second Hand Exposure: No; Hx Alcohol Use: No Hx Substance Use: No Preferred Language: Lithuanian Communication Ability: Effective Psychological Tests Sales Agent Required: No Beliefs That Will Affect Care: None Current Living Situation: Spouse Feels Safe at Home: Yes Assistive Devices: None Review of Systems Review of Systems: Per HPI Physical Exam Physical Exam: The patient is alert and oriented. Mood and affect appeared normal. He answered all questions appropriately. HEENT: Pupils are equal and reactive to light and accommodation. Extraocular movements are intact. The sclerae are anicteric. Neuro: Cranial nerves intact Lungs: Clear to auscultation bilaterally. He has good air movement without use of accessory muscles. No rales wheezes or rhonchi. Cardiac: Heart demonstrates a regular rate and rhythm. Normal S1 and S2. No murmurs on examination. Pulses: The patient has palpable radial pulses bilaterally that are equal in intensity Extremities: There was no evidence of hypoperfusion. There is no cyanosis or clubbing. Mild lower extremity edema, right worse than left. Scar in the right tibial area Skin: I did not appreciate any rashes on examination today. Results & Data ([facility]) Vital Signs (Past 12 Hours) Vital Signs Temp Pulse Pulse Pulse Pulse Pulse Resp 08/09/22 15:34 80 08/09/22 15:28 36.7 C 78 95 H 08/09/22 11:51 36.4 C L 75 16 08/09/22 08:00 88 08/09/22 08:31 36.6 C 85 14 08/09/22 07:28 82 90 79 Resp Resp Resp BP Pulse Ox Pulse Ox Pulse Ox 08/09/22 15:34 08/09/22 15:28 131/72 95 08/09/22 11:51 149/79 H 96 08/09/22 08:00 08/09/22 08:31 141/85 H 95 08/09/22 07:28 20 19 18 94 93 Pulse Ox O2 Del Method 08/09/22 15:34 08/09/22 15:28 Room Air 08/09/22 11:51 Room Air 08/09/22 08:00 08/09/22 08:31 Room Air 08/09/22 07:28 95 Laboratory Results Abnormal Lab Results 08/09/22 08/09/22 08/09/22 08:50 08:50 08:50 WBC 11.36 H RBC 3.90 L Hgb 12.2 L Hct 36.9 L MCV 94.6 MCH 31.3 MCHC 33.1 RDW Std Deviation 50.6 H RDW Coeff of [place] 14.6 H Plt Count 314 MPV 9.2 L Sodium 137 Potassium 4.3 Chloride 106 Carbon Dioxide 18 L Anion Gap 13 H BUN 95 H Creatinine 3.84 H Est Cr Clr Drug Dosing 17.4 Est GFR ( Amer) 16.5 Est GFR (Non-Af Amer) 14.2 BUN/Creatinine Ratio 24.7 H Glucose 125 H Calcium 9.4 Phosphorus 5.1 H Iron 117 TIBC 275 Unsaturated IBC 158 Transferrin % Sat 43 Ferritin Albumin 3.8 PTH Intact 101.2 H 08/09/22 08:50 WBC RBC Hgb Hct MCV MCH MCHC RDW Std Deviation RDW Coeff of [place] Plt Count MPV Sodium Potassium Chloride Carbon Dioxide Anion Gap BUN Creatinine Est Cr Clr Drug Dosing Est GFR ( Amer) Est GFR (Non-Af Amer) BUN/Creatinine Ratio Glucose Calcium Phosphorus Iron Cancelled TIBC Cancelled Unsaturated IBC Cancelled Transferrin % Sat Cancelled Ferritin 522.1 H Albumin PTH Intact Diagnostic Findings Chest x-ray obtained the time admission revealed only nonspecific interstitial thickening. No consolidation. Echocardiogram dated 08/07/2022 revealed moderate to severely reduced LV systolic function with an ejection fraction of 30 35%. There is global hypokinesis. Mild LVH. Mild mitral regurgitation. PG Care Time/CCT Total # of Minutes Spent Total Time Spent with Patient: Total time spent is greater than 50% in coordination of care (as documented) at patient's floor/unit and/or counseling patient: Coding Level of Care Code 01844 Initial Inpt Care Lvl 3 Diagnoses Cardiomyopathy I42.9 Acute respiratory failure with hypoxia J96.01 Elevated troponin R77.8 Coronary artery disease I25.10 Associated angina: without angina Coronary Disease-Associated Artery/Lesion type: [place] artery [place] vs. transplanted heart: [place] heart (1) Coronary artery disease Associated angina: without angina Coronary Disease-Associated Artery/Lesion type: [place] artery [place] vs. transplanted heart: [place] heart Qualified Code(s): I25.10 - Atherosclerotic heart disease of [place] coronary artery without angina pectoris
--- NOTE | 2022-08-09 20:14 | Hospitalist Progress Note ---
Date of Service August 09, 2022 Assessment & Plan (1) Acute respiratory failure with hypoxia: Plan: Presented with RR in the mid 20s and pulse ox readings in the 70s. Corrected with NC O2 - 2-3 L. Appreciate pulmonary evaluation by Dr Perdomo. 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 H/o COPD. Current clinical picture could be infectious vs inflammatory vs cardiac/renal (ie pulmonary edema) vs other. Echo findings noted with depressed EF. Renal function is worse relative to baseline. Now much improved with steroids and also received IV lasix x [address] Perdomo that pulmonary infection is unlikely cause of presentation- stopped all abx as per PULM -continue prednisone 20mg po bid on discharge and taper over 4 weeks and f/u with PULM for repeat PFTs -continue Anoro/Arnuity inhaler -2 step walk test 08/09 shows no need for O2 but should continue his usual nocturnal O2 (2) Tzmrr-gc-xuxyttq kidney injury: Plan: Baseline creatinine is around 3, was up to 3.88 after receiving IV lasix on 08/07--? wireless watcher stable today but needs improvement Baseline CrCl 20s c/w CKD stage 4. Follows with Dr Kearns in nephrology clinic. Previously had dialysis after lymphoma diagnosis in 2019, however has not had dialysis since then. Mature right radiocephalic AV fistula intact. Between systolic CHF and poor renal function some of his hypoxia and lung findings may be edema. hold any further lasix at this time Is not oliguric, BPs controlled With metabolic acidosis -follow BMP -may need NaHCO3 tabs tomorrow if acidosis not improving -Appreciate Nephro consult (3) Chronic kidney disease, stage IV (severe): Plan: baseline Cr about 3 baseline CrCl low 20s (4) Cardiomyopathy: Plan: echo with EF 30-35% echo in 2019 with preserved EF global hypokinesis seen on echo here 2nd to prior chemo for lymphoma? ischemic due to established CAD? depressed EF in setting of CKD stage 4 certainly could be causing pulmonary e khurram and contributing to his clinical presentation as noted above Appreciate cardiology consult - ideally would have ischemic eval via L heart cath - but very, very poor candidate for such given his advanced kidney disease during this admission -started coreg 3.125mg po bid and will titrate up -cannot have ACEi/ARB, SGTL-2 due to renal failure -no diuretics at this time -may need ICD in future -f/u with Cardio after discharge (5) Elevated troponin: Plan: no evidence of ACS likely myocardial demand ischemia in setting of #1 (6) PAD (peripheral artery disease): Plan: S/p CHEMICAL DEPENDENCY NURSE of distal stenosis right femoral posterior tibial bypass graft in January 2021. Has upcoming vascular procedure at [facility] next Tuesday 08/14 by report which has now been pushed back Continue aspirin, Plavix, statin. Our nurse navigator contacted Dr. Nixon Aden;christina nurse (his Vascular Surgeon at [email or web address]) to see if he needs any vascular studies completed while hospitalized here and they said none needed. 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 Stent was done in [place]. He has not had obvious ischemic symptoms recently. Continue DAPT with aspirin and Plavix Cont statin Of note - with newly discovered cardiomyopathy ideally he should have an ischemic evaluation with cardiac cath but this would likely lead to needing hemodialysis Appreciate cardiology consult for new onset CM (8) B-cell lymphoma: Plan: In remission, still has a port in place. S/p R-CHOP in 2019. chemo may have lead to his cardiomyopathy (9) MAEGAN (obstructive sleep apnea): Plan: Wears 5L NC at night at baseline declines CPAP (10) Hypercholesteremia: Plan: Continue atorvastatin. (11) Depression: Plan: Continue citalopram. 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 Not SOB. Is ambulating the halls multiple times today. Discussed his care with Nephrology and Cardiology Tele with NSR , PVCs, rates 60-70s Review of Systems Review of Systems: All systems reviewed & are unremarkable except as noted in HPI & below Physical Exam Physical Exam: gen - comfortable, pleasant, NAD heart - RRR, s1 s2,no mgr lungs - fine bibasilar rales bilat,no wheezes, no increased work of breathing abd - soft NT ND BS+; no hepatomegaly ext - no edema, pulses 2+ b/l psych - a/o x 3 Results & Data Results & Data ([facility]) Vital Signs (Past 12 Hours) Vital Signs Temp Pulse Pulse Resp BP Pulse Ox O2 Del Method 08/09/22 20:00 Nasal Cannula 08/09/22 17:41 Nasal Cannula 08/09/22 15:34 80 08/09/22 15:28 36.7 C 78 95 H 131/72 95 Room Air 08/09/22 11:51 36.4 C L 75 16 149/79 H 96 Room Air 08/09/22 08:31 36.6 C 85 14 141/85 H 95 Room Air O2 Flow Rate 08/09/22 20:00 1 08/09/22 17:41 1 08/09/22 15:34 08/09/22 15:28 08/09/22 11:51 08/09/22 08:31 Laboratory Results 08/09/22 08:50 08/09/22 08:50 PG Care Time/CCT Total # of Minutes Spent Total Time Spent with Patient: Total time spent is greater than 50% in coordination of care (as documented) at patient's floor/unit and/or counseling patient: Coding Level of Care Code 70166 Subseq Hosp Care Lvl 3 Diagnoses Acute respiratory failure with hypoxia J96.01 Ynxer-ag-itveksy kidney injury N17.9; N18.9 Chronic kidney disease, stage IV (severe) N18.4 Cardiomyopathy I42.9 Elevated troponin R77.8 PAD (peripheral artery disease) I73.9 Coronary artery disease I25.10 Associated angina: without angina Coronary Disease-Associated Artery/Lesion type: [place] artery [place] vs. transplanted heart: [place] heart B-cell lymphoma C83.38 B-cell lymphoma type: diffuse large B-cell Lymphoma site: multiple regions MAEGAN (obstructive sleep apnea) G47.33 Hypercholesteremia E78.00 Depression F32.9 Anemia N18.4; D63.1 Anemia type: due to chronic kidney disease Chronic kidney disease stage: stage 4 (severe) UTI (urinary tract infection) N39.0 Hypersensitivity pneumonitis J67.9 GERD (gastroesophageal reflux disease) K21.9 Esophagitis presence: without esophagitis (1) Coronary artery disease Associated angina: without angina Coronary Disease-Associated Artery/Lesion type: [place] artery [place] vs. transplanted heart: [place] heart Qualified Code(s): I25.10 - Atherosclerotic heart disease of [place] coronary artery without angina pectoris (2) B-cell lymphoma 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 (3) Anemia Anemia type: due to chronic kidney disease Chronic kidney disease stage: stage 4 (severe) Qualified Code(s): N18.4 - Chronic kidney disease, stage 4 (severe); D63.1 - Anemia in chronic kidney disease (4) GERD (gastroesophageal reflux disease) Esophagitis presence: without esophagitis Qualified Code(s): K21.9 - Gastro-esophageal reflux disease without esophagitis
[2022-08-09] MEDS: ASPIRIN 81 MG ECTAB PO SCH (20:29)
[2022-08-09] MEDS: ATORVASTATIN 40 MG TAB PO SCH (20:30)
[2022-08-09] MEDS: CITALOPRAM 20 MG TAB PO SCH (20:31)
[2022-08-09] MEDS: FERROUS SULFATE 325 MG TAB PO SCH (20:31)
[2022-08-09] MEDS: CLOPIDOGREL BISULFATE 75 MG TAB PO SCH (20:31)
[2022-08-09] MEDS: FINASTERIDE 5 MG TAB PO SCH (20:32)
[2022-08-10 08:00] LABS: Albumin Level 3.7 gm/dl (3.4-5.0); BUN Creatinine Ratio 28.6 (10-20); Calcium 8.9 mg/dl (8.5-10.1); Creatinine Clr Calc Pharmacy 19.4 ml/min; Est GFR (African American) 18.7 ml/min; Est GFR (Non-African American) 16.1 ml/min; Phosphorus 5.7 mg/dl (2.5-4.9); Potassium 4.4 mmol/L (3.5-5.1)
[2022-08-10] MEDS ORDERED: CEFDINIR 300 MG CAP PO SCH (09:00)
[2022-08-10] MEDS ORDERED: SODIUM BICARBONATE 650 MG TAB PO SCH (09:00)
[2022-08-10] MEDS: carvediloL 3.125 MG TAB PO SCH (09:54)
[2022-08-10] MEDS: guaiFENesin 600 MG TABCR PO SCH (09:58)
[2022-08-10] MEDS: FLUTICASONE FUROATE 100MCG 14 PUFFS/INHALER INH SCH (09:58)
[2022-08-10] MEDS: HEPARIN SOD 5,000 UNIT/0.5 ML VIAL SQ SCH (09:59)
[2022-08-10] MEDS: PANTOprazole 40 MG TAB PO SCH (10:00)
[2022-08-10] MEDS: predniSONE 20 MG TAB PO SCH (10:00)
[2022-08-10] MEDS: UMECLIDINIUM/VILANTEROL 62.5/25MCG 7 PUFFS/INHALER INH SCH (10:01)
--- NOTE | 2022-08-10 10:30 | Nephrology Progress Note ---
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 Started on steroid, azithromycin and nebulizer without significant improvement in respiratory distress. Although clinically does not seem volume overloaded, exam and chest x-ray suggestive of some mild pulmonary vascular congestion and echo showed significant drop in EF to 30-35% compared to prior. Baseline creatinine has been around 3 with some variability, since admission creatinine has been 3.5-3.6. Has UTI with 4+ bacteria and recent repeated episodes of dysuria. Overall clinically doing better but no improvement in renal function. Blood pressure well controlled, volume status acceptable.. -- start on NaBicarb 650 mg bid -- monitor intake and output, continue to hold diuretics -- dose medications for eGFR less than 15 --out pt f/u in 2/3 weeks -- Ok to be discharged with close outpt lab monitoring , lab next Sunday and then in a week. If not improvement in renal function over next few weeks, may need to set up dialysis as an outpatient, he has mature AV fistula. Continue to avoid NSAIDs, keep well hydrated. Will follow. Admission and Anticipated Discharge Date Admission Date: August 06, 2022 Osman Jackson was seen and examined this morning, discussed with Son in Law Breen at bedside. No overnight events, feeling better, SOB improved,walking the hallway without significant SOB. Vital signs are otherwise stable. Decent UO off of diuretics, BP acceptable but no improvement in renal function. Review of Systems Review of Systems: Detail ROS was otherwise unremarkable except mentioned above. Physical Exam Constitutional: WD/WN, vitals as above Eyes: + anicteric sclerae Neck: normal visual inspection Respiratory: Auscultation: lungs clear to auscultation bilaterally; no crackles Cardiovascular: Rate/Rhythm: regular rate and regular rhythm Heart Sounds: normal S1 and normal S2 Extremities: + AV fistula (rt RC A allvf with thrill and brit.); no edema Musculoskeletal: Extremities: extremities normal to inspection Skin: no rashes Neurologic: no focal motor deficits Psychiatric: Orientation: alert and oriented x 3 Affect: euthymic affect Results & Data ([facility]) Vital Signs (Past 12 Hours) Vital Signs Temp Pulse Pulse Resp BP Pulse Ox O2 Del Method 08/10/22 09:13 81 150/70 H 08/10/22 07:26 36.4 C L 70 15 143/91 H 99 Nasal Cannula 08/10/22 04:22 36.3 C L 77 18 124/64 96 Room Air 08/09/22 23:59 36.5 C 73 18 133/71 96 Room Air 08/09/22 23:59 80 O2 Flow Rate 08/10/22 09:13 08/10/22 07:26 1 08/10/22 04:22 08/09/22 23:59 08/09/22 23:59 PG Care Time/CCT Total # of Minutes Spent Total Time Spent with Patient: Total time spent is greater than 50% in coordination of care (as documented) at patient's floor/unit and/or counseling patient: Coding Level of Care Code 64446 Subseq Hosp Care Lvl 3 Diagnoses Phfkz-jz-lwbhqbf kidney injury N17.9; N18.9 Acute and chronic respiratory failure with hypoxia J96.21 Anemia N18.4; D63.1 Anemia type: due to chronic kidney disease Chronic kidney disease stage: stage 4 (severe) HTN (hypertension) I10 Hypertension type: essential hypertension Metabolic acidosis E87.20 (1) Anemia Anemia type: due to chronic kidney disease Chronic kidney disease stage: stage 4 (severe) Qualified Code(s): N18.4 - Chronic kidney disease, stage 4 (severe); D63.1 - Anemia in chronic kidney disease (2) HTN (hypertension) Hypertension type: essential hypertension Qualified Code(s): I10 - Essential (primary) hypertension
--- NOTE | 2022-08-10 11:59 | Discharge Summary ---
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 Actually been progressively getting worse over the last 3 weeks, however the past couple days his shortness of breath is so severe that he is not able to do usual household activities without becoming severely short of breath and coughing up thick yellow sputum. He has not had any fevers, chills, chest pain, palpitations, nausea, vomiting. He denies any lower extremity swelling or weight gain. His ability to lie flat is somewhat limited due to back pain, however he has been laying horizontally on his side without worsening shortness of breath, has not been waking up in the middle the night gasping for air. He has been using his home inhalers without significant relief. On presentation, he is 78% on room air, now 96% on 3 L nasal cannula. Mildly hypertensive, otherwise vital signs within normal limits and stable since arrival. Labs largely unrevealing, he has a chronic anemia, at baseline. VB.36/47//. BUN 54, creatinine slightly increased from prior labs in May, 3.54 today, was less than 3 then. His troponin is slightly elevated at 30.4. COVID/flu/RSV negative. CXR shows increase in mild nonspecific interstitial thickening without consolidation. ED course: Albuterol nebulized treatment, 80 mg IV Solu-Medrol. Principal Diagnosis KATHY on CKD stage 4, Acute respiratory failure on chronic with hypoxia, suspected hypersensitivity pneumonitis, UTI Discharge Exam gen - comfortable, pleasant, NAD heart - RRR, s1 s2,no mgr lungs - fine bibasilar rales bilat,no wheezes, no increased work of breathing abd - soft NT ND BS+; no hepatomegaly ext - no edema, pulses 2+ b/l psych - a/o x 3 Discharge Data Allergies Allergy/AdvReac Type Severity Reaction Status Date / Time No Known Drug Allergies Allergy Unknown NKDA Verified 06/21/22 13:59 Consultations 08/06/22 12:01 ED Decision to Admit Stat 08/06/22 14:04 Consult Nephrology Routine Consult Pulmonology Routine 08/09/22 10:45 Consult Cardiology Routine Hospital Course (1) Acute respiratory failure with hypoxia: Presented with RR in the mid 20s and pulse ox readings in the 70s. Corrected with NC O2 - 2-3 L. Appreciate pulmonary evaluation by Dr Perdomo. 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 H/o COPD. Current clinical picture could be infectious vs inflammatory vs cardiac/renal (ie pulmonary edema) vs other. Echo findings noted with depressed EF. Renal function is worse relative to baseline. Now much improved with steroids and also received IV lasix x [address] Perdomo that pulmonary infection is unlikely cause of presentation- stopped all abx as per PULM -continue prednisone 40mg po daily on discharge and taper over 4 weeks and f/u with PULM for repeat PFTs--> go down by 10mg q1 week -continue Trelegy inhaler -2 step walk test 08/09 shows no need for O2 but should continue his usual nocturnal O2 (2) Qmezo-mn-axekpcn kidney injury: Baseline creatinine is around 3, was up to 3.88 after receiving IV lasix on 08/07--? 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 Follows with Dr Kearns in nephrology clinic. Previously had dialysis after lymphoma diagnosis in 2019, however has not had dialysis since then. Mature right radiocephalic AV fistula intact. Between systolic CHF and poor renal function some of his hypoxia and lung findings may be edema. hold any further lasix at this time Is not oliguric, BPs controlled With metabolic acidosis-started sodium bicarb bid tabs -follow BMP on Sunday and then again 1 week after that with results to Nephrology and f/u with Nephro in 2-3 weeks -Appreciate Nephro consult (3) Chronic kidney disease, stage IV (severe): baseline Cr about 3 baseline CrCl low 20s (4) Cardiomyopathy: echo with EF 30-35% echo in 2019 with preserved EF global hypokinesis seen on echo here 2nd to prior chemo for lymphoma? ischemic due to established CAD? depressed EF in setting of CKD stage 4 certainly could be causing pulmonary edema and contributing to his clinical presentation as noted above Appreciate cardiology consult - ideally would have ischemic eval via L heart cath - but very, very poor candidate for such given his advanced kidney disease during this admission -started coreg 3.125mg po bid and will titrate up to 6.25mg po bid on discharge -cannot have ACEi/ARB, SGTL-2 due to renal failure -no diuretics at this time -may need ICD in future -f/u with Cardio after discharge (5) Elevated troponin: no evidence of ACS likely myocardial demand ischemia in setting of #1 (6) PAD (peripheral artery disease): S/p CLOTH FINISHING RANGE BACK TENDER of distal stenosis right femoral posterior tibial bypass graft in January 2021. Has upcoming vascular procedure at [facility] next Tuesday 08/14 by report which has now been pushed back Continue aspirin, Plavix, statin. Our nurse navigator contacted Dr. Nixon Aden;christina nurse (his Vascular Surgeon at [facility]) to see if he needs any vascular studies completed while hospitalized here and they said none needed. Needs angiography with possible intervention but with renal function poor, will hold off for now pulse in right foot intact (7) Coronary artery disease: Unknown stenting procedure in the per documentation from Dr Osullivan, his primary agriculture science teacher. Stent was done in [place]. He has not had obvious ischemic symptoms recently. Continue DAPT with aspirin and Plavix Cont statin Of note - with newly discovered cardiomyopathy ideally he should have an ischemic evaluation with cardiac cath but this would likely lead to needing hemodialysis Appreciate cardiology consult for new onset CM (8) B-cell lymphoma: In remission, still has a port in place. S/p R-CHOP in 2019. chemo may have lead to his cardiomyopathy (9) MAEGAN (obstructive sleep apnea): Wears 5L NC at night at baseline declines CPAP (10) Hypercholesteremia: Continue atorvastatin. (11) Depression: Continue citalopram. 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 see #1 above (15) GERD (gastroesophageal reflux disease): PPI especially while on steroids Plan DVT proph- SQ heparin Dispo-possible dc to home today Total Time Total Time Spent Total Time Spent (In Minutes): 40 min Discharge Plan Discharge Items Patient Disposition: Home - Self-Care Reason For Visit: SOB Discharge Diagnosis: Suspected hypersensitivity pneumonitis, Hypoxia, Acute kidney injury in setting of CKD stage 4, Cardiomyopathy/Congestive Heart failure Activity: As commented below Bathing: No limitations Exercise/Sports: Gradually increase as tolerated Driving/Machine Use: No limitations Non-emergency contact: Primary Care Provider, Oracle Adf Developer, Probation Counselor and [employer] Follow-up/Referrals: Reanna Kearns MD [Physician] - (Follow up within 2-3 weeks.) Kyree Davis MD [Physician] - (Follow up within 2-3 weeks.) Frank Grande MD, [facility] [Physician] - 08/28/22 8:30 am (Follow up Pulmonology appointment is August 28 at 8:[address] Grande. Please arrive 15 minutes early, If this appointment needs rescheduled please call the office at [phone].) Vinod Pang [Primary Care Provider] - (Follow up within 1-2 weeks) Diet: Dialysis Renal and Low Sodium (2gm) Fluids: 1800ml (7 cups) Ambulatory Orders: Basic Metabolic Panel (Routine) Timeframe: 11 Day Location: Determined by Patient Ordered By: Roslyn Wolfe Basic Metabolic Panel (Routine) Timeframe: 4 Days Location: Determined by Patient Ordered By: Roslyn Wolfe Complete Blood Count with Diff (Routine) Timeframe: 4 Days Location: Determined by Patient Ordered By: Roslyn Wolfe Complete Blood Count with Diff (Routine) Timeframe: 11 Day Location: Determined by Patient Ordered By: Roslyn Wolfe Addtl Attending Provider Instructions: Please continue taking the prednisone 40mg daily for 4 more days, then decrease to 30mg daily x 1 week, then 20mg daily x 1 week, then 10mg daily. The [employer] will determine when you can stop taking the steroids. You do not need oxygen during the daytime, but should continue wearing it at nighttime. For your kidney failure, you need to get blood work done on SundayAug 14 and again on SundayAug 21 and the results should be sent to Dr. Kearns. You may end up needing kidney dialysis in the next month if your kidneys don't improve. You were started on sodium bicarbonate tablets to keep the pH of your blood at a good level due to your kidney failure. You were also found to have a reduced pumping function of the heart called cardiomyopathy or congestive heart failure. You were started on a medication for this called carvedilol and should follow up with the Oracle Adf Developer within the next few weeks. Addtl Data Recovery Planner Provider Instructions: Call your Primary Care doctor if any of the following symptoms or problems start or get worse: * Shortness of breath or difficulty breathing * Wake up at night short of breath * Chest pain * Cough * Swelling of your hands, feet, or legs * More fatigued or tired with your normal activity * Palpitations - sudden fast heart beats WEIGHT * Weigh yourself every morning after using the bathroom. * Use the same scale. * Wear the same amount of clothing. * Write your weight down on a chart. * Call your Primary Care doctor if you gain more than 2-3 pounds in 1-2 days. MEDICATIONS * Use this discharge instruction sheet for medication instructions. * Take your medications at the time your doctor ordered. * Do not skip a dose of your medicines. * If you miss a dose of medicine, take it as soon as possible, but DO NOT DOUBLE A DOSE. * Read your medicine information when you get home. * Know all of the side effects of your medicine. If in doubt, ask your pharmacist * Call your Primary Care doctor's office if you have any side effects. * Be sure all of your doctors know what medicine and herbs you take (including cold, flu, and herbal medicine). Take the following with you to your follow-up doctor appointments: * Weight Chart * Medication List * List of questions Do not drink excessive alcohol, beer or wine. Pending Studies at Discharge: No Stand-Alone Forms: [facility] Medications and DC Order Prescriptions: New cefdinir 300 mg Capsule 300 mg PO Q24H Qty: 4 0RF carvedilol 6.25 mg tablet 6.25 mg PO BID Qty: 60 0RF Rx Instructions: must administer with a meal/food pantoprazole 40 mg Tablet,Delayed Release (Dr/Ec) 40 mg PO DAILY Qty: 30 0RF sodium bicarbonate 650 mg Tablet 650 mg PO BID Qty: 60 0RF prednisone 10 mg tablet 40 mg PO DAILY Qty: 54 0RF Rx Instructions: x 4 days then decrease by 10mg every 7 days until 10mg daily and remain on that dose Continued atorvastatin [Lipitor] 80 mg Tablet 80 mg PO HS Qty: 0 Procrit 20,000 unit/mL solution 20,000 unit subcut MONTHLY Qty: 1 11RF Rx Instructions: Okay to hold for Hbg greater than 11. Approved till 10/19/2022. Approved as buy and bill. [place] Ellipta 100-62.5-25 mcg blister with device 1 inh inhalation DAILY Qty: 60 2RF ferrous sulfate 325 mg (65 mg iron) tablet 650 mg PO .COMPLEX Rx Instructions: 650 mg PO take 2 tablets in the evening.; clopidogrel 75 mg tablet 75 mg PO DAILY albuterol sulfate 90 mcg/actuation HFA aerosol inhaler 2 puff inhalation Q6H PRN (Reason: Shortness Of Breath Or Wheezing) Qty: 18 3RF finasteride 5 mg tablet 5 mg PO QAM aspirin [Aspir-81] 81 mg Tablet,Delayed Release (Dr/Ec) 81 mg PO QPM citalopram 20 mg tablet 20 mg PO DAILY Discharge Orders: Discharge Order (Routine); Ordered 08/10/22 Ordered By: Roslyn Wolfe Admission Data Admit Date/Time: 08/06/22 12:12 Attending Provider: Roslyn Wolfe Admit Provider: Ann Royal Primary Care Provider: Vinod Pang Other Providers: Vasiliy Chatman ; Fermín Quick ; Frank Grande ; Kyree Davis Coding Level of Care Code D/C DAY MANAGEMENT >30 MINS Diagnoses Acute respiratory failure with hypoxia J96.01 Opjyj-[id number]-geognqa kidney injury N17.9; N18.9 Chronic kidney disease, stage IV (severe) N18.4 Cardiomyopathy I42.9 Elevated troponin R77.8 PAD (peripheral artery disease) I73.9 Coronary artery disease I25.10 Coronary Disease-Associated Artery/Lesion type: [place] artery [place] vs. transplanted heart: [place] heart Associated angina: without angina B-cell lymphoma C83.38 B-cell lymphoma type: diffuse large B-cell Lymphoma site: multiple regions MAEGAN (obstructive sleep apnea) G47.33 Hypercholesteremia E78.00 Depression F32.9 Anemia N18.4; D63.1 Anemia type: due to chronic kidney disease Chronic kidney disease stage: stage 4 (severe) UTI (urinary tract infection) N39.0 Hypersensitivity pneumonitis J67.9 GERD (gastroesophageal reflux disease) K21.9 Esophagitis presence: without esophagitis
== END 2022-08-10 13:27 | disposition home or self-care (01) | DRG 196 ==
LOC: ED 09:13 → 2S 12:12 → SUATTDRO 12:12 → 2S 13:35
DX: C83.30 Diffuse large B-cell lymphoma, unspecified site; I50.22 Chronic systolic (congestive) heart failure; J44.1 Chronic obstructive pulmonary disease with (acute) exacerbation; Z79.02 Long term (current) use of antithrombotics/antiplatelets; N39.0 Urinary tract infection, site not specified; J96.21 Acute and chronic respiratory failure with hypoxia; I42.7 Cardiomyopathy due to drug and external agent; J84.9 Interstitial pulmonary disease, unspecified; I25.10 Atherosclerotic heart disease of native coronary artery without angina pectoris; N18.4 Chronic kidney disease, stage 4 (severe); G62.9 Polyneuropathy, unspecified; G47.33 Obstructive sleep apnea (adult) (pediatric); I24.8 Other forms of acute ischemic heart disease; J67.9 Hypersensitivity pneumonitis due to unspecified organic dust; D64.9 Anemia, unspecified; E87.20 Acidosis, unspecified; Z87.891 Personal history of nicotine dependence; Z99.81 Dependence on supplemental oxygen; N17.9 Acute kidney failure, unspecified

== ENCOUNTER 2023-01-08 09:14 | Inpatient (IN) ==
--- NOTE | 2023-01-08 09:54 | Emergency Department Note ---
Impression & Plan Acute left-sided back pain, Hematuria, CKD (chronic kidney disease) ED Provider Note ED Provider Note NAME: MEG FINK AGE:77 SEX: Male : 1945 ARRIVES VIA: Private vehicle INFORMANT: Patient and daughter ED PROVIDER(s): Yessica Ruiz DO CHIEF COMPLAINT: Hematuria, chills, left low back pain HPI: This is a 77-year-old male presents emergency department complaining of hematuria, chills, left low back pain. Patient states last night he had an episode approximately half an hour of significant chills where he could not get warm. He states he noticed small amount of blood with urination. He states thi s morning he had left low back pain which seem to wax and wane, although no change with position, and again had gross hematuria. Patient does have a history of chronic kidney disease and does follow with Dr. Valencia. Patient does use aspirin and Plavix daily. He denies any history of kidney stones or prostate problems. PAST MEDICAL HISTORY:See Below PAST SURGICAL HISTORY:See Below FAMILY HISTORY:See Below SOCIAL HISTORY:See Below HOME MEDICATIONS:See Below ALLERGIES:See Below VITALS:See Below PHYSICAL EXAMINATION: GENERAL: alert, well appearing, well nourished, no distress, non-toxic EYE EXAM: normal conjunctiva, PERRL and EOM's grossly intact OROPHARYNX: no exudate, no erythema, lips, buccal mucosa, and tongue normal and mucous membranes are moist NECK: supple, no nuchal rigidity, no adenopathy, non-tender LUNGS: Clear to auscultation. Normal chest wall mechanics, no w/r/r HEART: no murmurs, S1 normal and S2 normal ABDOMEN: abdomen soft, non-tender, normo-active bowel sounds, no masses, no rebound or guarding. BACK: Back is symmetrical on inspection and there is no deformity, no midline tenderness, no CVA tenderness. SKIN: no rashes, petechiae, orbruising UPPER EXTREMITIES: upper extremities are grossly normal. FROM, nml pulses b/l. LOWER EXTREMITIES: b/l LE 2+ pitting edema R>L. FROM, nml pulses b/l. Several well-healed surgical scars noted to distal left lower extremity. NEURO EXAM: Normal sensorium, cranial nerves II-XII grossly intact, normal speech, no facial droop,nogross weakness of arms, no gross weakness of legs. Gross sensation intact. No ataxia. Vital Signs: reviewed and remarkable Differential Diagnosis: Differential: UTI, Urethritis, Pyelonephritis, Renal colic, prostatitis, renal cell carcinoma, urothelial cancer, bladder tumor, Hyperglycemia, Hemorrhagic Cystitis, amongst other pathologies entertained. MEDICAL DECISION MAKING: This is a 77-year-old male presents emergency room due to concern for left low back pain and hematuria. Patient does have a history of CKD and follows with nephrology accurately. Labs drawn and sent, IV established, EKG and chest x-ray performed and reviewed by me at bedside, patient monitored on telemetry. Labs reassuring, UA did have blood and was also suggestive of possible infection, patient given IV antibiotics as a precaution. CT revealed dry nephrosis on the left as well as bilateral nephrolithiasis. Cultures, lactic acid, and procalcitonin had been added initially after patient described having chills at home last night. Due to concern for possible infection given elevated procalcit onin, as well as possible obstructive uropathy on top of his history of significant CKD, case discussed with hospitalist for additional evaluation and management. Due to patient's history of heart failure and CKD, he was only given a small amount of IV fluids in the emergency room. He was not given 30 mL/KG due to this concern. He did appear euvolemic at bedside. Patient's lactic acid reassuring however procalcitonin elevated. Consultation(s): 1225: Discussed with Dr. Chatman. ER Treatment Provided: See below Diagnostics Interpreted By Me: -ECG: Sinus bradycardia at 56, normal axis, normal intervals, nonspecific ST/T wave changes noted -Cardiac Monitoring: An order was placed for continuous cardiac monitoring. The monitor shows a rate of 58 with sinus bradycardia rhythm. -Laboratory studies: As stated above and show below. -Imaging studies: X-ray Chest: A single view study of the chest was reviewed and was negative for cardiomegaly, focal infiltrate, effusion, pulmonary edema, or wide mediastinum. 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 Chronic back pain Coronary artery disease COVID-19 Deep vein thrombosis Deep vein thrombosis ~1989' Depression Gastroenteritis due to 2019-nCoV Hearing deficit Hemodialysis patient LAST DIAYLSIS FEBRUARY 11, 2019. NEPHROLOGY HAS STOPPED DIAYLSIS FOR THE TIME. Hyperkalemia Hypersensitivity pneumonitis Left leg DVT Liver mass Metabolic acidosis Metabolic acidosis On anticoagulant therapy Osteoarthritis Peripheral neuropathy Peripheral vascular disease Pneumonia Pneumonia 3 YRS AGO Pneumonia due to COVID-19 virus Scrotal swelling Secondary hyperparathyroidism of renal origin Severe protein-calorie malnutrition Situational depression Sleep apnea NON-COMPLIANT UTI (urinary tract infection) Vitamin D deficiency Weight loss Surgical History H/O vascular surgery REMOVAL OF DVT History of cardiac cath X1. FOLLOWS WITH DR JOYNER History of colonoscopy History of esophagogastroduodenoscopy (EGD) History of heart artery stent History of lumbar discectomy History of umbilical hernia repair S/P femoral-femoral bypass surgery RIGHT LEG Family History Mother FHx: lung cancer FHx: uterine cancer Other Allergy Cancer Diabetes Heart disease Lung cancer Lung disease Denies family history of Tuberculosis Emphysema of lung Asthma Social History Smoking Status: Former smoker Tobacco Type: Cigarettes packs per day: 1; Second Hand Exposure: No; Hx Alcohol Use: No Hx Substance Use: No Preferred Language: Micronesian Communication Ability: Effective Lead Net Software Developer Required: No Beliefs That Will Affect Care: None Current Living Situation: Spouse Feels Safe at Home: Yes Assistive Devices: Oxygen - Continuous Allergies Allergies Allergy/AdvReac Type Severity Reaction Status Date / Time No Known Allergies Allergy Verified 01/08/23 11:52 Home Meds Home Medications Medication Instructions Recorded Confirmed atorvastatin 80 mg tablet (Lipitor) 80 mg PO HS #0 tabs 12/21/14 01/08/23 finasteride 5 mg tablet 5 mg PO QAM 12/04/18 01/08/23 clopidogrel 75 mg tablet 75 mg PO DAILY 09/15/21 01/08/23 citalopram 20 mg tablet 20 mg PO DAILY 08/06/22 01/08/23 aspirin 81 mg tablet,delayed 81 mg PO QPM 01/08/23 01/08/23 release carvedilol 12.5 mg tablet 25 mg PO BID 01/08/23 01/08/23 Previous Rx's Medication Instructions Recorded pantoprazole 40 mg tablet,delayed 40 mg PO DAILY #30 tabs 08/10/22 release Portable Oxygen #1 ea 08/28/22 fluticasone fur. 100 mcg-umeclid 1 inh inhalation DAILY #60 ea 08/28/22 62.5 mcg-vilant 25 mcg inhalat.powder (Trelegy Ellipta) epoetin neptali 20,000 unit/mL 20,000 unit subcut MONTHLY #1 mL 10/23/22 injection solution (Procrit) albuterol sulfate 90 mcg/actuation 2 puff inhalation Q6H PRN 01/01/23 aerosol inhaler Shortness Of Breath Or Wheezing #18 grams Results & Data (ED) Vital Signs Vital Signs - 24 hr 01/08/23 09:15 01/08/23 09:36 01/08/23 09:36 Temperature 36.3 C L Temperature Source Temporal Artery Scan Pulse Rate 65 Pulse Rate from SpO2 Sensor Respiratory Rate 18 Respiratory Depth Normal Blood Pressure 127/69 Blood Pressure Mean 88 Blood Pressure Position Sitting Pulse Oximetry 100 Oxygen Delivery Method Nasal Cannula Nasal Cannula Nasal Cannula Oxygen Flow Rate 4 4 4 Sepsis Recent Fever Within 48 Hours No Sepsis New/Unexplained Change in Mental Status No Sepsis Action Taken by Nursing No Action Required 01/08/23 10:01 01/08/23 09:58 01/08/23 10:00 Temperature Temperature Source Pulse Rate 62 62 61 Pulse Rate from SpO2 Sensor 61 62 Respiratory Rate 20 26 H Respiratory Depth Blood Pressure 125/55 L Blood Pressure Mean 78 Blood Pressure Position Pulse Oximetry 100 100 Oxygen Delivery Method Nasal Cannula Oxygen Flow Rate 3 Sepsis Recent Fever Within 48 Hours Sepsis New/Unexplained Change in Mental Status Sepsis Action Taken by Nursing 01/08/23 10:45 01/08/23 11:15 01/08/23 11:25 Temperature Temperature Source Pulse Rate 62 57 L 61 Pulse Rate from SpO2 Sensor 61 59 L Respiratory Rate 20 20 24 Respiratory Depth Blood Pressure 134/58 L Blood Pressure Mean 83 Blood Pressure Position Pulse Oximetry 97 88 L 100 Oxygen Delivery Method Oxygen Flow Rate 3 3 3 Sepsis Recent Fever Within 48 Hours Sepsis New/Unexplained Change in Mental Status Sepsis Action Taken by Nursing 01/08/23 12:19 Temperature Temperature Source Pulse Rate 63 Pulse Rate from SpO2 Sensor 65 Respiratory Rate 24 Respiratory Depth Blood Pressure 123/63 Blood Pressure Mean 83 Blood Pressure Position Pulse Oximetry 100 Oxygen Delivery Method Oxygen Flow Rate Sepsis Recent Fever Within 48 Hours Sepsis New/Unexplained Change in Mental Status Sepsis Action Taken by Nursing Laboratory Data 01/08/23 09:45 01/08/23 09:45 Lab Results 01/08/23 01/08/23 01/08/23 Range/Units 09:30 09:45 09:45 WBC 9.49 (4.8-10.8) K/ul RBC 3.21 L (4.70-6.10) M/uL Hgb 9.6 L (14.0-18.0) g/dl Hct 31.2 L (42.0-52.0) % MCV 97.2 (80.0-100.0) fL MCH 29.9 (25.0-34.0) pg MCHC 30.8 L (32.0-36.0) g/dL RDW Std Deviation 54.3 H (36.4-46.3) fL RDW Coeff of Xiomara 15.1 H (11.5-14.5) % Plt Count 187 (130-400) K/uL MPV 10.1 (9.4-12.4) fL Immature Gran % (Auto) 0.2 % Neut % (Auto) 82.5 % Lymph % (Auto) 2.5 % Brantley % (Auto) 11.3 % Eos % (Auto) 3.3 % Baso % (Auto) 0.2 % Neut # (Auto) 7.83 H (1.40-6.50) K/uL Lymph # (Auto) 0.24 L (1.2-3.4) K/uL Br[place]ley # (Auto) 1.07 H (0.11-0.59) K/uL Eos # (Auto) 0.31 (0-0.50) K/uL Baso # (Auto) 0.02 (0-0.2) K/uL Immature Gran # (Auto) 0.02 (0.01-0.20) K/uL Sodium 141 (136-145) mmol/L Potassium 4.5 (3.5-5.1) mmol/L Chloride 110 H (98-107) mmol/L Carbon Dioxide 26 (21-32) mmol/L Anion Gap 5 (3-11) BUN 62 H (6-23) mg/dl Creatinine 3.02 H (0.6-1.4) mg/dl Est Cr Clr Drug Dosing 22.8 ml/min Est GFR ( Amer) 22.0 ml/min Est GFR (Non-Af Amer) 19.0 ml/min BUN/Creatinine Ratio 20.5 H (10-20) Glucose 117 H (70-99(Fasting)) mg/dl Lactate (0.4-2.0) mmol/L Calcium 8.4 L (8.6-10.3) mg/dl Magnesium 2.3 (1.7-2.4) mg/dl Total Bilirubin 0.5 (0.2-1.0) mg/dl Direct Bilirubin 0.1 (0-0.2) mg/dl AST 9 L (13-39) U/L ALT 12 (7-52) U/L Alkaline Phosphatase 43 (34-104) U/L Troponin I High Sens 22.7 H (0-20) pg/ml Total Protein 6.1 (6.0-8.3) gm/dl Albumin 3.7 (3.4-5.0) gm/dl Procalcitonin (0-0.5) ng/ml Urine Color Red Urine Appearance Turbid A (Clear) Urine pH 5.5 (4.5-7.5) Ur Specific [place] 1.010 (1.000-1.030) Urine Protein 2+ H (Negative) Urine Glucose (UA) Negative (Negative) Urine Ketones Negative (Negative) Urine Blood 3+ H (Negative) Urine Nitrite Negative (Negative) Urine Bilirubin Negative (Negative) Urine Urobilinogen Negative (Negative) Ur Leukocyte Esterase 2+ H (Negative) Urine WBC (Auto) >30 H (0-5) /hpf Urine RBC (Auto) >30 H (0-4) /hpf U Hyaline Cast (Auto) 1-5 (0-5) /lpf U Epithel Cells (Auto) 0-5 (0-5) /lpf Urine Bacteria (Auto) 4+ H (Negative) Urine Yeast Not Reportable SARS-CoV-2, RNA, NAAT (NEGATIVE) 01/08/23 01/08/23 01/08/23 Range/Units 09:45 09:45 12:18 WBC (4.8-10.8) K/ul RBC (4.70-6.10) M/uL Hgb (14.0-18.0) g/dl Hct (42.0-52.0) % MCV (80.0-100.0) fL MCH (25.0-34.0) pg MCHC (32.0-36.0) g/dL RDW Std Deviation (36.4-46.3) fL RDW Coeff of Xiomara (11.5-14.5) % Plt Count (130-400) K/uL MPV (9.4-12.4) fL Immature Gran % (Auto) % Neut % (Auto) % Lymph % (Auto) % Br[place]ley % (Auto) % Eos % (Auto) % Baso % (Auto) % Neut # (Auto) (1.40-6.50) K/uL Lymph # (Auto) (1.2-3.4) K/uL [place]ley # (Auto) (0.11-0.59) K/uL Eos # (Auto) (0-0.50) K/uL Baso # (Auto) (0-0.2) K/uL Immature Gran # (Auto) (0.01-0.20) K/uL Sodium (136-145) mmol/L Potassium (3.5-5.1) mmol/L Chloride (98-107) mmol/L Carbon Dioxide (21-32) mmol/L Anion Gap (3-11) BUN (6-23) mg/dl Creatinine (0.6-1.4) mg/dl Est Cr Clr Drug Dosing ml/min Est GFR ( Amer) ml/min Est GFR (Non-Af Amer) ml/min BUN/Creatinine Ratio (10-20) Glucose (70-99(Fasting)) mg/dl Lactate 0.8 (0.4-2.0) mmol/L Calcium (8.6-10.3) mg/dl Magnesium (1.7-2.4) mg/dl Total Bilirubin (0.2-1.0) mg/dl Direct Bilirubin (0-0.2) mg/dl AST (13-39) U/L ALT (7-52) U/L Alkaline Phosphatase (34-104) U/L Troponin I High Sens (0-20) pg/ml Total Protein (6.0-8.3) gm/dl Albumin (3.4-5.0) gm/dl Procalcitonin 4.21 H (0-0.5) ng/ml Urine Color Urine Appearance (Clear) Urine pH (4.5-7.5) Ur Specific [place] (1.000-1.030) Urine Protein (Negative) Urine Glucose (UA) (Negative) Urine Ketones (Negative) Urine Blood (Negative) Urine Nitrite (Negative) Urine Bilirubin (Negative) Urine Urobilinogen (Negative) Ur Leukocyte Esterase (Negative) Urine WBC (Auto) (0-5) /hpf Urine RBC (Auto) (0-4) /hpf U Hyaline Cast (Auto) (0-5) /lpf U Epithel Cells (Auto) (0-5) /lpf Urine Bacteria (Auto) (Negative) Urine Yeast SARS-CoV-2, RNA, NAAT NEGATIVE (NEGATIVE) Administered Medications Parenteral Electrolytes (Normosol-R) 1,000 mls @ 80 mls/hr IV .[id number] GAURI Stop: 01/09/23 04:16 Last Admin: 01/08/23 16:08 Dose: 80 mls/hr Documented By: MG Discontinued Medications Ceftriaxone Sodium (Rocephin) 2,000 mg in 70 mls @ 140 mls/hr IV NOW STA Stop: 01/08/23 11:16 Last Infusion: 01/08/23 14:23 Dose: 0 mls/hr Documented By: Admin: 01/08/23 11:23 Dose: 140 mls/hr Documented By: MT Sodium Chloride (Nss) 250 mls @ 999 mls/hr IV .Q16M ONE Stop: 01/08/23 12:32 Last Infusion: 01/08/23 14:23 Dose: 0 mls/hr Documented By: Admin: 01/08/23 13:19 Dose: 999 mls/hr Documented By: KV Imaging Data Radiologist's Impression: Abdomen/Pelvis CT 01/08/23 09:45 CT SCAN OF THE ABDOMEN AND PELVIS WITHOUT IV CONTRAST CLINICAL HISTORY: Hematuria. Left-sided back pain. COMPARISON STUDY: Abdominal CT dated 04/26/2021. TECHNIQUE: CT scan of the abdomen and pelvis is performed from the lung bases to the proximal femora. Images are reviewed in the axial, sagittal, and coronal planes. IV contrast was not administered for this examination. A dose lowering technique was utilized adhering to the principles of ALARA. The examination is degraded by motion artifact. CT DOSE: 908.68 mGy.cm FINDINGS: Lung bases: The heart is enlarged and without pericardial effusion. The coronary arteries are densely calcified. There is diminished attenuation of the cardiac blood pool as compared to the myocardium suggesting anemia. There are trace pleural effusions with dependent atelectasis. Intralobular septal thickening could represent acute versus chronic congestive change. There is no airspace con solidation typical for pneumonia. A tiny hiatal hernia is observed. Liver: The unenhanced liver is normal in size, contour, and attenuation. There is no intrahepatic biliary ductal dilatation. A 4.5 cm subcapsular calcification of the right lobe is unchanged, as are additional calcified hepatic granulomas. Gallbladder: Unremarkable. Spleen: Normal in size and attenuation. Pancreas: Unremarkable. Adrenal glands: Unremarkable. Kidneys: The unenhanced kidneys demonstrate cortical atrophy. There is minimal left hydroureteronephrosis, with left-sided perinephric stranding and trace fluid. No obstructing stone or lesion is identified. There are at least 5 punctate nonobstructing left renal calculi. At least 2 punctate nonobstructing stones are seen in the right kidney. There is no right-sided hydronephrosis. Scattered subcentimeter simple and complex cortical hypodensities likely represent cysts. Abdominal vasculature: There is advanced atherosclerotic calcification and mild ectasia of the abdominal aorta. A right femoral artery stent is partially visualized. Bowel: There is moderate to advanced colonic diverticulosis. There is mild infiltration identified around a sigmoid diverticulum seen on image #[id number]. Minimal acute diverticulitis is not excluded. No bowel obstruction is seen. Mild fecal retention is noted throughout the colon. The appendix is well-visualized and normal. Peritoneum: There is no intraperitoneal free air or abdominal ascites. Lymphadenopathy: None. Pelvic viscera: The prostate gland is enlarged and heterogeneous noting median lobe hypertrophy. The bladder wall is thickened/trabeculated indicating chronic outlet obstruction. There are bilateral fat-containing groin hernias. Surgical changes noted in the right groin. Skeletal structures: The skeletal structures are osteopenic. There is moderate to advanced lumbosacral spondylosis and scoliosis. No lytic or blastic lesions are seen. There are subacute/healing left anterior rib fractures. IMPRESSION: 1. There is minimal left hydroureteronephrosis with asymmetric left-sided perinephric stranding. No obstructing stone or lesion is identified at this time. This is nonspecific and could represent the sequelae of a recently passed kidney stone. Correlate clinically. 2. Punctate nonobstructing calculi are noted in both kidneys. 3. Moderate to advanced colonic diverticulosis. Faint infiltration is seen around a sigmoid diverticulum and minimal acute diverticulitis is not excluded. Correlate clinically. 4. No intraperitoneal free air is identified and no abscess is seen. 5. There are subacute/healing left anterior rib fractures. 6. Cardiomegaly and trace pleural effusions. Mild intralobular septal thickening could represent acute versus chronic congestive change and clinical correlation will be required. 7. Additional findings as above. ACT 112: Negative or not required by law. Electronically signed by: Cheo Bullard M.D. 01/08/2023 11:20 AM Chest X-Ray 01/08/23 09:46 XR chest 1V portable CLINICAL HISTORY: Sepsis. COMPARISON STUDY: Chest CT December 01, 2021 and chest radiograph August 06, 2022 FINDINGS: Left subclavian [id number]-g-Mazo is unchanged in position. Tip is within the left brachiocephalic vein. No pneumothorax or pleural effusion is noted. Cardiomegaly is unchanged. Interstitial thickening is unchanged. There is no consolidation. IMPRESSION: No change in appearance of the chest. Stable nonspecific interstitial thickening. ACT 112: Negative or not required by law. Electronically signed by: Virgil Pinzon M.D. 01/08/2023 10:14 AM Discharge Plan Visit Data Chief Complaint: Flank Pain Stated Complaint: Agustina REARDON FLANK PAIN. PEEING BLOOD ED Provider: Yessica Ruiz Discharge Problem: Acute left-sided back pain, Hematuria, CKD (chronic kidney disease) Patient Disposition: Admitted As Inpatient Discharge Instructions Interventions: ED Discharge Assessment Last Done: 01/08/23 14:36
--- NOTE | 2023-01-08 10:16 | XRay Report ---
XR chest 1V portable CLINICAL HISTORY: Sepsis. COMPARISON STUDY: Chest CT December 01, 2021 and chest radiograph August 06, 2022 FINDINGS: Left subclavian [id number]-[id number] is unchanged in position. Tip is within the left brachiocepha lic vein. No pneumothorax or pleural effusion is noted. Cardiomegaly is unchanged. Interstitial thick ening is unchanged. There is no consolidation. IMPRESSION: No change in appearance of the chest. Stable nonspecific interstitial thickening. ACT 112: Negative or not required by law. Electronically signed by: Virgil Pinzon M.D. 01/08/2023 10:14 AM
[2023-01-08 10:29] LABS: Appearance Urine Turbid (Clear); Bilirubin Urine Negative (Negative); Blood Urine 3+ (Negative); Color Urine Red; Epithelial Cell Urine Auto 0-5 /lpf (0-5); Glucose Urine UA Negative (Negative); Ketones Urine Negative (Negative); Leukocyte Esterase Urine 2+ (Negative); Nitrite Urine Negative (Negative); Protein Urine 2+ (Negative); Urobilinogen Urine Negative (Negative); WBC Urine Automated >30 /hpf (0-5); pH Urine 5.5 (4.5-7.5)
[2023-01-08 10:32] LABS: Basophils # (auto) 0.02 K/uL (0-0.2); Basophils % (auto) 0.2 %; Eosinophils # (auto) 0.31 K/uL (0-0.50); Eosinophils % (auto) 3.3 %; Hematocrit (blood only) 31.2 % (42.0-52.0); Hemoglobin 9.6 g/dl (14.0-18.0); Immature Granulocytes # (auto) 0.02 K/uL (0.01-0.20); Immature Granulocytes % (auto) 0.2 %; Lymphocytes # (auto) 0.24 K/uL (1.2-3.4); Lymphocytes % (auto) 2.5 %; Mean Corpuscular Hemoglobin 29.9 pg (25.0-34.0); Mean Corpuscular Hgb Conc 30.8 g/dL (32.0-36.0); Mean Corpuscular Volume 97.2 fL (80.0-100.0); Mean Platelet Volume 10.1 fL (9.4-12.4); Monocytes # (auto) 1.07 K/uL (0.11-0.59); Monocytes % (auto) 11.3 %; Neutrophils # (auto) 7.83 K/uL (1.40-6.50); Neutrophils % (auto) 82.5 %; Platelet Count 187 K/uL (130-400); RDW Coefficient of Variation 15.1 % (11.5-14.5); RDW Standard Deviation 54.3 fL (36.4-46.3); Red Blood Count 3.21 M/uL (4.70-6.10); White Blood Count 9.49 K/ul (4.8-10.8)
[2023-01-08 10:44] LABS: Bacteria Urine Automated 4+ (Negative); RBC Urine Automated >30 /hpf (0-4)
[2023-01-08 10:46] LABS: Albumin Level 3.7 gm/dl (3.4-5.0); BUN Creatinine Ratio 20.5 (10-20); Bilirubin Direct 0.1 mg/dl (0-0.2); Bilirubin,Total 0.5 mg/dl (0.2-1.0); Calcium 8.4 mg/dl (8.6-10.3); Creatinine Clr Calc Pharmacy 22.8 ml/min; Magnesium 2.3 mg/dl (1.7-2.4); Potassium 4.5 mmol/L (3.5-5.1); Total Protein 6.1 gm/dl (6.0-8.3)
[2023-01-08] MEDS ORDERED: cefTRIAXone SODIUM 2,000 MG/70 ML BAG IV STA (10:47)
[2023-01-08 10:53] LABS: Troponin I High Sensitivity 22.7 pg/ml (0-20)
--- NOTE | 2023-01-08 11:22 | CT Scan Report ---
CT SCAN OF THE ABDOMEN AND PELVIS WITHOUT IV CONTRAST CLINICAL HISTORY: Hematuria. Left-sided back pain. COMPARISON STUDY: Abdominal CT dated 04/26/2021. TECHNIQUE: CT scan of the abdomen and pelvis is performed from the lung bases to the proximal femora. Images are reviewed in the axial, sagittal, and coronal planes. IV contrast was not administered for this examination. A dose lowering technique was utilized adhering to the principles of ALARA. The ex amination is degraded by motion artifact. CT DOSE: 908.68 mGy.cm FINDINGS: Lung bases: The heart is enlarged and without pericardial effusion. The coronary arteries are densely calcified. There is diminished attenuation of the cardiac blood pool as compared to the myocardium s uggesting anemia. There are trace pleural effusions with dependent atelectasis. Intralobular septal t hickening could represent acute versus chronic congestive change. There is no airspace consolidation typical for pneumonia. A tiny hiatal hernia is observed. Liver: The unenhanced liver is normal in size, contour, and attenuation. There is no intrahepatic hussain iary ductal dilatation. A 4.5 cm subcapsular calcification of the right lobe is unchanged, as are add itional calcified hepatic granulomas. Gallbladder: Unremarkable. Spleen: Normal in size and attenuation. Pancreas: Unremarkable. Adrenal glands: Unremarkable. Kidneys: The unenhanced kidneys demonstrate cortical atrophy. There is minimal left hydroureteronephr osis, with left-sided perinephric stranding and trace fluid. No obstructing stone or lesion is identi fied. There are at least 5 punctate nonobstructing left renal calculi. At least 2 punctate nonobstruc ting stones are seen in the right kidney. There is no right-sided hydronephrosis. Scattered subcentim eter simple and complex cortical hypodensities likely represent cysts. Abdominal vasculature: There is advanced atherosclerotic calcification and mild ectasia of the abdomi nal aorta. A right femoral artery stent is partially visualized. Bowel: There is moderate to advanced colonic diverticulosis. There is mild infiltration identified ar ound a sigmoid diverticulum seen on image #3-30. Minimal acute diverticulitis is not excluded. No bow el obstruction is seen. Mild fecal retention is noted throughout the colon. The appendix is well-vis ualized and normal. Peritoneum: There is no intraperitoneal free air or abdominal ascites. Lymphadenopathy: None. Pelvic viscera: The prostate gland is enlarged and heterogeneous noting median lobe hypertrophy. The bladder wall is thickened/trabeculated indicating chronic outlet obstruction. There are bilateral fat -containing groin hernias. Surgical changes noted in the right groin. Skeletal structures: The skeletal structures are osteopenic. There is moderate to advanced lumbosacra l spondylosis and scoliosis. No lytic or blastic lesions are seen. There are subacute/healing left an terior rib fractures. IMPRESSION: 1. There is minimal left hydroureteronephrosis with asymmetric left-sided perinephric stranding. No o bstructing stone or lesion is identified at this time. This is nonspecific and could represent the se quelae of a recently passed kidney stone. Correlate clinically. 2. Punctate nonobstructing calculi are noted in both kidneys. 3. Moderate to advanced colonic diverticulosis. Faint infiltration is seen around a sigmoid diverticu lum and minimal acute diverticulitis is not excluded. Correlate clinically. 4. No intraperitoneal free air is identified and no abscess is seen. 5. There are subacute/healing left anterior rib fractures. 6. Cardiomegaly and trace pleural effusions. Mild intralobular septal thickening could represent acut e versus chronic congestive change and clinical correlation will be required. 7. Additional findings as above. ACT 112: Negative or not required by law. Electronically signed by: Cheo Bullard M.D. 01/08/2023 11:20 AM
[2023-01-08] MEDS ORDERED: SODIUM CHLORIDE 0.9% 250 ML IV ONE (12:17)
--- NOTE | 2023-01-08 12:20 | History & Physical Report ---
Date of Service January 08, 2023 Assessment & Plan (1) Complicated UTI (urinary tract infection): Plan: Urosepsis,? passed left nephrolithiasis. Gross hematuria and left lower quadrant pain yesterday and today. Patient with chills, rigors, feeling fever the evening prior. Suspect infected stone which may have passed with transient gram-negative bacteremia. Blood cultures pending. Pro-Naseem is elevated. Patient is hemodynamically stable at hospitalist assessment, n.p.o. in case urology needs to see in-house and IV fluids with antibiotics for now. Bladder scan every shift. We will place for full admissions as patient history and clinical presentation is consistent with rigors from complicated UTI, was slightly hypotensive on admission, and has a significantly elevated Pro-Naseem suggesting he was likely bacteremic and is at increased risk of complications due to his borderline ESRD expected to but not yet requiring dialysis. Is on aspirin/Plavix DAPT Patient denies prostate problems, has had concerns on prior outpatient visits for BPH/LUTS Hemoglobin 9.6 with MCV 97, prior hemoglobin baseline approximately 10.812 Procalcitonin 4.21 Troponin mildly elevated suspicious for demand, trended with limited echo for wall motion as noted UA 4+ bacteria and 3+ blood, UC pending CTA/P: Unenhanced image due to CKD with recently elevated creatinine. left hydroureteronephrosis with asymmetric stranding, nonspecific code records sent to recently passed stone. Nonobstructing punctate calculi bilaterally. Faint infiltration around sigmoid diverticuli appreciated, minimal acute diverticulitis not excluded by imaging. No abscess, no intraperitoneal free air. Subacute/healing left rib fractures. Cardiomegaly with trace pleural effusions. On CT prostate and is noted to be enlarged with heterogenous/median lobe hypertrophy. Bladder wall is thickened indicative of chronic outlet obstruction which has been suspected based on renal function in the past. Flomax started, recommend urology follow-up. (2) Restrictive lung disease: Plan: Pulmonary fibrosis, ILD PFTs 12/30/2022: FVC 1.74 (52% predicted), FEV1 1.39 (58% predicted), FEV1/FVC 79.88 (110% predicted), DLCO 12.78 (60% predicted). Moderate restrictive lung disease, no obstructive physiology appreciated, mild decrease in DLCO which corrects for alveolar volume. ? Underlying cause. 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 Gold class C Continue Trelegy/formulary equivalent. 01/01/2023 patient trialed BrezTri and finds much better benefit from this. Convert to formulary equivalent, and resume as outpt with pulm followup. Home oxygen at night and 3 L with exertion. Titrate O2 to maintain SPO2 90- 94%. Do not hyperoxygenate. Former cigarette use, [id number] history in remission for approximately 25 years. Continues to history of tobacco, cessation encouraged (4) MAEGAN (obstructive sleep apnea): Plan: MAEGAN CPAP nightly with oxygen bleed as needed Noncompliant with CPAP at home (5) HFrEF (heart failure with reduced ejection fraction): Plan: Heart failure with reduced ejection fraction Echo 07/2022: EF 30-35%, moderate to severe global hypokinesis, mild LVH, normal LV size, mild tricuspid regurg, normal estimated right-sided pressures Follows with cardiology. No symptoms of angina/ACS Entresto/ARB/Aldactone contraindicated due to renal function Continue statin Carvedilol recently increased to 18.75 mg twice daily with instructions to decrease to 12.5 mg twice daily for hypotensive symptoms Repeat echo pending 01/16 for interval LV assessment Troponin 22.7,? Demand on admission. Troponins trended, limited wall motion Echo pending CXR: No acute change. [id number] present. Nonspecific stable interstitial thickening. No consolidation. Admitting EKG: Sinus bradycardia, borderline nonspecific T wave change in lead III/aVL. No ST segment changes. QTc 432. (6) Chronic kidney disease, stage IV (severe): Plan: CKD 4 Patient has right radiocephalic AV fistula, mature. Has not been used At last follow-up tolerating Cardizem/Imdur. Lisinopril/spironolactone/Entresto contraindicated as otherwise noted Not on diuretics at baseline Baseline creatinine around 2.83.0, admitting creatinine 3.0. Did have recent increase to 3.4 with consideration of urinary obstruction? BPH. Flomax started Admitting potassium 4.5, sodium normal, no volume overload History of Present Illness Primary Care Provider: Vinod Pang Manuel Rojas is a 77-year-old male with a past medical history of CKD 4/ESRD, COPD with emphysema and chronic respiratory failure on oxygen, permanent central venous catheter, obstructive sleep apnea, B-cell lymphoma, liver mass Last night fever, and shaking chills and couldn't get warm. PUt on blankets and heater but kept shaking and couldn't keep warm for 30 minutes. Wwent ot the bathroom last night and was having blood in the urine. Was having pain in his L lower back 'not real sharp but enough to get my attention' which improved by the time he got in the ER. No chest pain or chest pressure No shortness of breath, feels his breathing is normal. BrezTri works better than Trelegy per pt Denies difficulty voiding. No urinary frequency or hestinancy. Normally gets up 1-2 times at night. No change in frequency lately. No burning Has CPAP at home, but doesn't tolerate. Only uses nighttime oxygen at home. Medical History: Reviewed Medications: Reviewed Surgical History: Reviewed Family history: Reviewed Allergies: Reviewed Social History: Current chew 1 pouch lasts a few days. Rare social etoh. Code Status: DNI/DNR. Allergies Allergy/AdvReac Type Severity Reaction Status Date / Time No Known Allergies Allergy Verified 01/08/23 11:52 Home Medications Medication Instructions Recorded Confirmed Type atorvastatin 80 mg tablet (Lipitor) 80 mg PO HS #0 tabs 12/21/14 01/08/23 History finasteride 5 mg tablet 5 mg PO QAM 12/04/18 01/08/23 History clopidogrel 75 mg tablet 75 mg PO DAILY 09/15/21 01/08/23 History citalopram 20 mg tablet 20 mg PO DAILY 08/06/22 01/08/23 History pantoprazole 40 mg tablet,delayed 40 mg PO DAILY #30 tabs 08/10/22 01/08/23 Rx release Portable Oxygen #1 ea 08/28/22 12/19/22 Rx fluticasone fur. 100 mcg-umeclid 1 inh inhalation DAILY #60 ea 08/28/22 01/08/23 Rx 62.5 mcg-vilant 25 mcg inhalat.powder (Trelegy Ellipta) epoetin neptali 20,000 unit/mL 20,000 unit subcut MONTHLY #1 mL 10/23/22 01/08/23 Rx injection solution (Procrit) albuterol sulfate 90 mcg/actuation 2 puff inhalation Q6H PRN 01/01/23 01/08/23 Rx aerosol inhaler Shortness Of Breath Or Wheezing #18 grams aspirin 81 mg tablet,delayed 81 mg PO QPM 01/08/23 01/08/23 History release carvedilol 12.5 mg tablet 25 mg PO BID 01/08/23 01/08/23 History Past Med/Surg History Medical History Acute kidney injury Acute kidney injury Acute respiratory failure with hypoxia [id number] kidney injury Anorexia ARF (acute renal failure) 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 Chronic back pain Coronary artery disease COVID-19 Deep vein thrombosis Deep vein thrombosis ~ Depression Gastroenteritis due to 2019-nCoV Hearing deficit Hemodialysis patient LAST DIAYLSIS FEBRUARY 11, 2019. NEPHROLOGY HAS STOPPED DIAYLSIS FOR THE TIME. Hyperkalemia Hypersensitivity pneumonitis Left leg DVT Liver mass Metabolic acidosis Metabolic acidosis On anticoagulant therapy Osteoarthritis Peripheral neuropathy Peripheral vascular disease Pneumonia Pneumonia 3 YRS AGO Pneumonia due to COVID-19 virus Scrotal swelling Secondary hyperparathyroidism of renal origin Severe protein-calorie malnutrition Situational depression Sleep apnea NON-COMPLIANT UTI (urinary tract infection) Vitamin D deficiency Weight loss Surgical History H/O vascular surgery REMOVAL OF DVT History of cardiac cath X1. FOLLOWS WITH DR JOYNER History of colonoscopy History of esophagogastroduodenoscopy (EGD) History of heart artery stent History of lumbar discectomy History of umbilical hernia repair S/P femoral-femoral bypass surgery RIGHT LEG Family History Mother FHx: lung cancer FHx: uterine cancer Other Allergy Cancer Diabetes Heart disease Lung cancer Lung disease Denies family history of Tuberculosis Emphysema of lung Asthma Social History Smoking Status: Former smoker Tobacco Type: Cigarettes packs per day: 1; Second Hand Exposure: No; Hx Alcohol Use: No Hx Substance Use: No Preferred Language: Taiwanese Communication Ability: Effective Parts Salesman Required: No Beliefs That Will Affect Care: None Current Living Situation: Spouse Feels Safe at Home: Yes Assistive Devices: None Review of Systems Review of Systems: All systems reviewed & are unremarkable except as noted in HPI & below Physical Exam Physical Exam: General: A&Ox3. NAD. Cooperative. HEENT: Atraumatic, normocephalic. Vision and hearing grossly intact, slightly hard of hearing Pulm: CTAB A&P. -wheezes, -rales, -rhonchi. Symmetrical chest rise. No increased work of breathing. No respiratory distress. Cardiac: RRR, -mrg. Radial pulses intact and symmetrical. Abdominal: Nontender, nondistended, soft. BS present. No CVA tenderness at admitting exam Extremities: Warm, dry. Moves all extremities equally. No pedal edema. Right radiocephalic fistula in place with good thrill and no overlying pain/warmth/tenderness. Results & Data Results & Data Vital Signs (Past 12 Hours) Vital Signs Temp Pulse Resp BP Pulse Ox O2 Del Method O2 Flow Rate 01/08/23 11:25 61 24 134/58 L 100 3 01/08/23 11:15 57 L 20 88 L 3 01/08/23 10:45 62 20 97 3 01/08/23 10:00 61 26 H 100 01/08/23 09:58 62 20 125/55 L 100 Nasal Cannula 3 01/08/23 10:01 62 01/08/23 09:36 Nasal Cannula 4 01/08/23 09:36 Nasal Cannula 4 01/08/23 09:15 36.3 C L 65 18 127/69 100 Nasal Cannula 4 PG Care Time/CCT Total # of Minutes Spent Total Time Spent with Patient: Total time spent is greater than 50% in coordination of care (as documented) at patient's floor/unit and/or counseling patient: Coding Level of Care Code 99761 INT INP/OBS CARE 75MIN Diagnoses Complicated UTI (urinary tract infection) N39.0 Restrictive lung disease J98.4 COPD with emphysema J43.9 MAEGAN (obstructive sleep apnea) G47.33 HFrEF (heart failure with reduced ejection fraction) I50.20 Chronic kidney disease, stage IV (severe) N18.4
--- NOTE | 2023-01-08 13:39 | Electrocardiogram Report ---
Test Reason : Blood Pressure : / mmHG Vent. Rate : 056 BPM Atrial Rate : 056 BPM P-R Int : 184 ms QRS Dur : 086 ms QT Int : 448 ms P-R-T Axes : 045 011 072 degrees QTc Int : 432 ms Poor data quality, interpretation may be adversely affected Sinus bradycardia with Premature supraventricular complexes Left ventricular hypertrophy with repolarization abnormality Abnormal ECG When compared with ECG of 06-AUG-2022 09:40, Premature supraventricular complexes are now Present Confirmed by Ramón Shelby ([id number]) on 01/08/2023 1:39:34 PM Referred By: REFERRED SELF Confirmed By:Ramón Shelby
[2023-01-08] MEDS ORDERED: ALBUTEROL HFA 8 GM INHALER INH PRN (15:47)
[2023-01-08] MEDS ORDERED: ACETAMINOPHEN 325 MG TAB PO PRN (15:47)
[2023-01-08] MEDS ORDERED: PLASMA-LYTE A 1,000 ML IV SCH (15:47)
[2023-01-08] MEDS: TAMSULOSIN HCL 0.4 MG CAP PO SCH (16:30)
[2023-01-08] MEDS: carvediloL 25 MG TAB PO SCH (16:30)
[2023-01-08] MEDS: ATORVASTATIN 40 MG TAB PO SCH (21:16)
[2023-01-08] MEDS: ASPIRIN 81 MG ECTAB PO SCH (21:16)
[2023-01-09 02:10] LABS: A calco-baum cmplx NotReported Not Detected (NotDetected); Bact fragilis Not Reported Not Detected (NotDetected); C auris Not Reported Not Detected (NotDetected); CTX-M Resistant Gene Not Detected (NotDetected); Calbicans Not Reported Not Detected (NotDetected); Candida glabrata Not Reported Not Detected (NotDetected); Candida krusei Not Reported Not Detected (NotDetected); Cneoformans/gatti Not Reported Not Detected (NotDetected); Cparapsilosis Not Reported Not Detected (NotDetected); Ctropicalis Not Reported Not Detected (NotDetected); E cloacae compx Not Reported Not Detected (NotDetected); Efaecalis Not Reported Not Detected (NotDetected); Efaecium Not Reported Not Detected (NotDetected); Enterobacterales DETECTED (NotDetected); Enterobacterales Not Reported DETECTED (NotDetected); Escherichia coli Not Reported DETECTED (NotDetected); H influenzae Not Reported Not Detected (NotDetected); IMP Resistant Gene Not Detected (NotDetected); K aerogenes Not Reported Not Detected (NotDetected); KPC Resistant Gene Not Detected (NotDetected); Koxytoca Not Reported Not Detected (NotDetected); Kpneumoniae grp Not Reported Not Detected (NotDetected); Lmonocyt Not Reported Not Detected (NotDetected); N meningitidis Not Reported Not Detected (NotDetected); NDM Resistant Gene Not Detected (NotDetected); OXA 48 Like Resistant Gene Not Detected (NotDetected); P aeruginosa Not Reported Not Detected (NotDetected); Proteus spp Not Reported Not Detected (NotDetected); Salmonella spp Not Reported Not Detected (NotDetected); Smarcescens Not Reported Not Detected (NotDetected); Staph lugdunensis Not Reported Not Detected (NotDetected); Staph spp. Not Reported Not Detected (NotDetected); Staphaureus Not Reported Not Detected (NotDetected); Staphepi Not Reported Not Detected (NotDetected); Stenmaltophilia Not Reported Not Detected (NotDetected); Strep agal(GrpB) Not Reported Not Detected (NotDetected); Strep pneum Not Reported Not Detected (NotDetected); Strep pyog (GrpA) Not Reported Not Detected (NotDetected); Strep spp Not Reported Not Detected (NotDetected); VIM Resistant Gene Not Detected (NotDetected); mcr-1 Colistin Resistant Gene Not Detected (NotDetected)
[2023-01-09 07:18] LABS: Basophils # (auto) 0.03 K/uL (0-0.2); Basophils % (auto) 0.5 %; Eosinophils # (auto) 0.28 K/uL (0-0.50); Eosinophils % (auto) 4.4 %; Hematocrit (blood only) 27.8 % (42.0-52.0); Hemoglobin 8.6 g/dl (14.0-18.0); Immature Granulocytes # (auto) 0.02 K/uL (0.01-0.20); Immature Granulocytes % (auto) 0.3 %; Lymphocytes # (auto) 0.35 K/uL (1.2-3.4); Lymphocytes % (auto) 5.5 %; Mean Corpuscular Hgb Conc 30.9 g/dL (32.0-36.0); Mean Corpuscular Volume 96.9 fL (80.0-100.0); Mean Platelet Volume 10.1 fL (9.4-12.4); Monocytes # (auto) 0.91 K/uL (0.11-0.59); Monocytes % (auto) 14.3 %; Neutrophils # (auto) 4.77 K/uL (1.40-6.50); Platelet Count 146 K/uL (130-400); RDW Coefficient of Variation 15.3 % (11.5-14.5); RDW Standard Deviation 54.4 fL (36.4-46.3); Red Blood Count 2.87 M/uL (4.70-6.10); White Blood Count 6.36 K/ul (4.8-10.8)
[2023-01-09 07:47] LABS: BUN Creatinine Ratio 18.1 (10-20); Calcium 8.1 mg/dl (8.6-10.3); Creatinine Clr Calc Pharmacy 18.9 ml/min; Est GFR (African American) 19.6 ml/min; Est GFR (Non-African American) 16.9 ml/min
[2023-01-09] MEDS: UMECLIDINIUM BROMIDE 62.5MCG/BLISTER 7 PUFFS/INHALER INH SCH (08:19)
[2023-01-09] MEDS: PANTOprazole 40 MG TAB PO SCH (08:20)
[2023-01-09] MEDS: carvediloL 25 MG TAB PO SCH ×2 (08:20→17:06)
[2023-01-09] MEDS: CLOPIDOGREL BISULFATE 75 MG TAB PO SCH (08:20)
[2023-01-09] MEDS: CITALOPRAM 20 MG TAB PO SCH (08:20)
[2023-01-09] MEDS: FLUTICASONE/VILANTEROL 100/25MCG 14 PUFFS/INHALER INH SCH (08:20)
[2023-01-09] MEDS: FINASTERIDE 5 MG TAB PO SCH (08:21)
[2023-01-09] MEDS: TAMSULOSIN HCL 0.4 MG CAP PO SCH (08:21)
--- NOTE | 2023-01-09 08:36 | Hospitalist Progress Note ---
Date of Service January 09, 2023 Assessment & Plan (1) Complicated UTI (urinary tract infection): Plan: acute sepsis from urinary source, possible passed left nephrolithiasis. Consider acute prostatitis high risk Blood cultures show gram-negative bacilli urine culture also shows gram- negative bacilli.. Pro-Naseem is elevated 4.21 With gram-negative bacteremia would likely need 2 weeks of antibiotics. Concern for prostatitis also would at least require this duration of treatment ESRD expected to but not yet requiring dialysis. on proscar flomax for bph acute blood loss anemia from hematuria, acute moderate risk treat infection and follow we will check iron studies in the morning nephrology recommends additional dose of EPO Troponin elevated suspicious for demand ischemia from lower blood pressure CTA/P: 01/08/23 . left hydroureteronephrosis with asymmetric stranding, prostate and is noted to be enlarged with heterogenous/median lobe hypertrophy. (2) HFrEF (heart failure with reduced ejection fraction): Plan: chronic Heart failure with reduced ejection fraction, unclear if stable in setting of phsiologic stressors -DAPT, carvedilol, atorvastatin follow for volume status . 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 Former cigarette use, [id number] history in remission for approximately 25 years. Continues to history of tobacco, cessation encouraged (4) MAEGAN (obstructive sleep apnea): Plan: MAEGAN chronic, unclear if stable due to non compliance CPAP nightly with oxygen bleed as needed Noncompliant with CPAP at home (5) Chronic kidney disease, stage IV (severe): Plan: CKD 4 chronic and stable Patient has right radiocephalic AV fistula, mature. Has not been used Not on diuretics at baseline Plan dvt prevention is scd due to worsened anemia making chemoprophylaxis contraindic ated Admission and Anticipated Discharge Date Admission Date: January 08, 2023 Subjective Patient is stable feels back to his baseline with exception of continuing having hematuria, patient is a finding of gram-negative bacilli in his blood and gram- negative bacilli in his urine previous culture of Morganella morganii in July 2022 Physical Exam Physical Exam: Patient awake alert no distress return to 4 L baseline oxygen Lungs are clear with good air movement Heart exam is regular with a systolic murmur Abdomen NABS soft nontender Remedies are with trace edema Results & Data Results & Data Vital Signs (Past 12 Hours) Vital Signs Temp Pulse Pulse Resp BP Pulse Ox O2 Del Method 01/09/23 07:50 97.3 F L 61 18 121/57 L 98 Nasal Cannula 01/09/23 06:05 81 01/09/23 03:54 98.1 F 63 18 96/60 L 98 Nasal Cannula 01/08/23 21:59 70 01/09/23 00:16 97.9 F 96 H 20 120/58 L 94 Nasal Cannula 01/08/23 22:00 Nasal Cannula O2 Flow Rate 01/09/23 07:50 4 01/09/23 06:05 01/09/23 03:54 3 01/08/23 21:59 01/09/23 00:16 2 01/08/23 22:00 4 Laboratory Results Reviewed urine and blood culture showing gram-negative bacilli Reviewed CBC Reviewed chemistry PG Care Time/CCT Total # of Minutes Spent Total Time Spent with Patient: Total time spent is greater than 50% in coordination of care (as documented) at patient's floor/unit and/or counseling patient: Coding Level of Care Code 74323 SUB INP/OBS CARE 3/50MIN Diagnoses Complicated UTI (urinary tract infection) N39.0 HFrEF (heart failure with reduced ejection fraction) I50.20 Chronic respiratory failure J96.10 MAEGAN (obstructive sleep apnea) G47.33 Chronic kidney disease, stage IV (severe) N18.4
[2023-01-09] MEDS: cefTRIAXone SODIUM 2,000 MG in DEXTROSE 5% 50 ML IV SCH (09:13)
[2023-01-09] MEDS: NICOTINE 14 MG/24 HR PATCH TD SCH (13:11)
[2023-01-09] MEDS ORDERED: EPOETIN ALFA 40,000 UNITS/ML VIAL SQ ONE (15:56)
[2023-01-09] MEDS: ASPIRIN 81 MG ECTAB PO SCH (21:05)
[2023-01-09] MEDS: ATORVASTATIN 40 MG TAB PO SCH (21:06)
[2023-01-10] MEDS: UMECLIDINIUM BROMIDE 62.5MCG/BLISTER 7 PUFFS/INHALER INH SCH (08:20)
[2023-01-10] MEDS: FLUTICASONE/VILANTEROL 100/25MCG 14 PUFFS/INHALER INH SCH (08:20)
[2023-01-10] MEDS: TAMSULOSIN HCL 0.4 MG CAP PO SCH (08:21)
[2023-01-10] MEDS: CITALOPRAM 20 MG TAB PO SCH (08:21)
[2023-01-10] MEDS: carvediloL 25 MG TAB PO SCH (08:21)
[2023-01-10] MEDS: PANTOprazole 40 MG TAB PO SCH (08:21)
[2023-01-10] MEDS: CLOPIDOGREL BISULFATE 75 MG TAB PO SCH (08:21)
[2023-01-10] MEDS: FINASTERIDE 5 MG TAB PO SCH (08:22)
[2023-01-10 08:42] LABS: Iron 21 mcg/dl (35-175); Unsaturated Iron Binding Cap 249 mcg/dl (155-355)
[2023-01-10] MEDS: NICOTINE 14 MG/24 HR PATCH TD SCH (08:57)
[2023-01-10] MEDS: cefTRIAXone SODIUM 2,000 MG in DEXTROSE 5% 50 ML IV SCH (09:48)
[2023-01-10 11:45] LABS: BUN Creatinine Ratio 17.3 (10-20); Calcium 8.1 mg/dl (8.6-10.3); Creatinine Clr Calc Pharmacy 19.1 ml/min; Est GFR (African American) 19.4 ml/min; Est GFR (Non-African American) 16.8 ml/min; Potassium 4.5 mmol/L (3.5-5.1)
[2023-01-10] MEDS ORDERED: IRON SUCROSE 200 MG in 0.9 % SODIUM CHLORIDE 100 ML IV ONE (11:45)
[2023-01-10 11:59] LABS: Hematocrit (blood only) 29.1 % (42.0-52.0); Hemoglobin 9.1 g/dl (14.0-18.0); Mean Corpuscular Hemoglobin 29.4 pg (25.0-34.0); Mean Corpuscular Hgb Conc 31.3 g/dL (32.0-36.0); Mean Corpuscular Volume 94.2 fL (80.0-100.0); Mean Platelet Volume 10.6 fL (9.4-12.4); Platelet Count 166 K/uL (130-400); RDW Coefficient of Variation 14.8 % (11.5-14.5); RDW Standard Deviation 51.6 fL (36.4-46.3); Red Blood Count 3.09 M/uL (4.70-6.10); White Blood Count 4.88 K/ul (4.8-10.8)
--- NOTE | 2023-01-10 15:24 | Discharge Summary ---
Date of Service January 10, 2023 Admission HPI Per Admitting Provider Manuel Rojas is a 77-year-old male with a past medical history of CKD 4/ESRD, COPD with emphysema and chronic respiratory failure on oxygen, permanent central venous catheter, obstructive sleep apnea, B-cell lymphoma, liver mass Last night fever, and shaking chills and couldn't get warm. PUt on blankets and heater but kept shaking and couldn't keep warm for 30 minutes. Wwent ot the bathroom last night and was having blood in the urine. Was having pain in his L lower back 'not real sharp but enough to get my attention' which improved by the time he got in the ER. No chest pain or chest pressure No shortness of breath, feels his breathing is normal. BrezTri works better than Trelegy per pt Denies difficulty voiding. No urinary frequency or hestinancy. Normally gets up 1-2 times at night. No change in frequency lately. No burning Has CPAP at home, but doesn't tolerate. Only uses nighttime oxygen at home. Medical History: Reviewed Medications: Reviewed Surgical History: Reviewed Family history: Reviewed Allergies: Reviewed Social History: Current chew 1 pouch lasts a few days. Rare social etoh. Code Status: DNI/DNR. Principal Diagnosis E COLI bacteremia from urinary source possible prostatis ckd 4 Discharge Exam Patient awake alert and stable he is chronically on oxygen is back to his baseline. However does not wear his oxygen all the time and was winded when coming back from the bathroom without having it on. Otherwise he states that his normal self his heart is regular with a systolic mu rmur his lungs are clear Discharge Data Allergies Allergy/AdvReac Type Severity Reaction Status Date / Time No Known Allergies Allergy Verified 01/08/23 11:52 Consultations 01/08/23 12:25 ED Decision to Admit Stat Ordered Studies 01/08/23 09:45 CT abd pelvis wo con Stat Hospital Course (1) Complicated UTI (urinary tract infection): acute sepsis from urinary source, possible passed left nephrolithiasis. Consider acute prostatitis high risk Blood cultures show gram-negative bacilli urine culture also shows gram-negative bacilli.. Pro-Naseem is elevated 4.21 With gram-negative bacteremia would likely need 2 weeks of antibiotics. Concern for prostatitis also would at least require this duration of treatment that may be extended ESRD expected to but not yet requiring dialysis. on proscar flomax for bph Spoke to the patient's son-in-law who was updated on his case acute blood loss anemia from hematuria, acute moderate risk treat infection and with lower iron level dose of Nate airfare was given, nephrology recommends additional dose of EPO ministered 01/09/2023 Troponin elevated suspicious for demand ischemia from lower blood pressure CTA/P: 01/08/23 . left hydroureteronephrosis with asymmetric stranding, prostate and is noted to be enlarged with heterogenous/median lobe hypertrophy. (2) HFrEF (heart failure with reduced ejection fraction): chronic Heart failure with reduced ejection fraction, unclear if stable in setting of physiologic stressors -DAPT, carvedilol, atorvastatin Patient euvolemic while in hospital . 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 Former cigarette use, [id number] history in remission for approximately 25 years. Continues to history of tobacco, cessation encouraged (4) MAEGAN (obstructive sleep apnea): MAEGAN chronic, unclear if stable due to non compliance CPAP nightly with oxygen bleed as needed Noncompliant with CPAP at home (5) Chronic kidney disease, stage IV (severe): CKD 4 chronic and stable Patient has right radiocephalic AV fistula, mature. Has not been used Not on diuretics at baseline Total Time Total Time Spent Total Time Spent (In Minutes): It required greater than 30 minutes to prepare this patient for discharge Discharge Plan Discharge Items Patient Disposition: Home - Self-Care Reason For Visit: COMPLICATED UTI, RIGORS Discharge Diagnosis: bacteria in blood stream urinary infection possible prostate infection Activity: Resume your previous activity Non-emergency contact: Primary Care Provider and Urologist Call non-emergency contact if: your symptoms worsen Follow-up/Referrals: Vinod Pang [Primary Care Provider] - (Dr. Pang's office will call you and arrange a hospital follow up appointment) Diet: Regular Ambulatory Orders: Basic Metabolic Panel (Routine) Timeframe: 2 Days Location: Determined by Patient Ordered By: Hari Hamilton Attending Provider Instructions: You may have a prostate infection but at the least did have bacteria in your blood stream you will need to be on an antibiotic for 2-4 weeks and have follow up with urology as an outpt please drink plenty of liquids and also follow up with your family doctor Pending Studies at Discharge: Yes Studies:: additional blood testing will be monitored after discharge Stand-Alone Forms: My [facility] [employer], Smoking Cessation Medications and DC Order Prescriptions: New cephalexin 250 mg capsule 250 mg PO BID 14 Days Qty: 28 0RF Continued atorvastatin [Lipitor] 80 mg Tablet 80 mg PO HS Qty: 0 Procrit 20,000 unit/mL solution 20,000 unit subcut MONTHLY Qty: 1 11RF Rx Instructions: Okay to hold for Hbg greater than 11. Approved till 02/09/2023. Approved as buy and bill. [place] Ellipta 100-62.5-25 mcg blister with device 1 inh inhalation DAILY Qty: 60 4RF (DME) Portable Oxygen Misc See Rx Instructions .MEDSUPPLY Qty: 1 0RF Rx Instructions: Oxygen 3 liters continuous via nasal cannula on exertion with portable concentrator. ZENOBIA 99 clopidogrel 75 mg tablet 75 mg PO DAILY albuterol sulfate 90 mcg/actuation HFA aerosol inhaler 2 puff inhalation Q6H PRN (Reason: Shortness Of Breath Or Wheezing) Qty: 18 3RF finasteride 5 mg tablet 5 mg PO QAM citalopram 20 mg tablet 20 mg PO DAILY pantoprazole 40 mg Tablet,Delayed Release (Dr/Ec) 40 mg PO DAILY Qty: 30 0RF aspirin 81 mg Tablet,Delayed Release (Dr/Ec) 81 mg PO QPM carvedilol 12.5 mg tablet 25 mg PO BID Rx Instructions: PER PT "INCREASED TO 25 MG BID, TODAY, 01/08/23. must administer with a meal/food Discharge Orders: Discharge Order (Routine); Ordered 01/10/23 Ordered By: Hari Hanson Admission Data Admit Date/Time: 01/08/23 13:02 Attending Provider: Hari Hanson Admit Provider: Vasiliy Chatman Primary Care Provider: Vinod Pang Other Providers: Vasiliy Chatman Other Interventions: Discharge Summary Assessment (RN) Last Done: 01/10/23 12:51 Coding Level of Care Code 63486 INP/OBS DISCH >30 MIN Diagnoses Complicated UTI (urinary tract infection) N39.0 HFrEF (heart failure with reduced ejection fraction) I50.20 Chronic respiratory failure J96.10 MAEGAN (obstructive sleep apnea) G47.33 Chronic kidney disease, stage IV (severe) N18.4
== END 2023-01-10 15:52 | disposition home or self-care (01) | DRG 872 ==
LOC: ED 09:14 → SUATTDRO 13:02 → 2N 13:02

== ENCOUNTER 2023-02-05 15:52 | Inpatient (IN) ==
[2023-02-05] MEDS ORDERED: ALBUT/IPRATROP 3MG/0.5MG NEB 3 ML VIAL INH STA (16:33)
--- NOTE | 2023-02-05 16:41 | Emergency Department Note ---
Impression & Plan SOB (shortness of breath), Anemia, CHF (congestive heart failure), Pedal edema, Renal failure ED Provider Note NAME: MEG FINK AGE: 77 SEX: M : 1945 ARRIVES VIA: Walk-In INFORMANT: [Patient][family] ED PROVIDER(S): [Cheo Benoit MD] CHIEF COMPLAINT: Short of breath HISTORY OF PRESENT ILLNESS: The patient is a 77-year-old male presents with about 3 weeks of increasing dyspnea. He typically wears anywhere from 4 to 6 L of oxygen depending on his activity level. He has been turning his oxygen level up to maintain his O2 saturation. Any exertion makes him very short of breath. He has noticed increasing leg edema. No chest pain. No increased cough, no congestion. No nausea vomiting or diarrhea. The patient does have a nebulizer to use at home although he has not taken a treatment today. He does not know if he takes any type of diuretic. The patient was in the hospital last month, he was discharged on 10 January, just under a month ago. He was in for bacteremia. PMHx/PSHx: See Below SOCIAL HISTORY: See Below. PHYSICAL EXAM: GENERAL: Patient is in no acute distress. HEENT: No acute trauma, normocephalic atraumatic, mucous membranes moist, no nasal congestion. NECK: No stridor, no adenopathy, no meningismus, trachea is midline. LUNGS: Markedly diminished breath sounds bilaterally, crackles bilaterally. No respiratory distress HEART: Heart tones are distant, no obvious murmurs, rhythm seems regular. ABDOMEN: Soft, nontender, bowel sounds positive, no peritonitis. EXTREMITIES: No cyanosis, significant bilateral pedal edema, full range of motion of all the joints without pain or difficulty, no signs for acute trauma. NEUROLOGIC: Oriented x 3, no acute motor or sensory deficits, no focal weakness. SKIN: No rash, no jaundice, no diaphoresis. DIFFERENTIAL DIAGNOSIS: CHF, fluid overload, pleural effusion, viral bronchitis, pneumonia, cardiac ischemia, anemia, renal failure, DVT or PE, among others. EMERGENCY DEPARTMENT COURSE/PROCEDURES: Prior/Outside records reviewed: Recent discharge summary. ECG per my interpretation: Indication was shortness of breath. The ECG shows significant baseline artifact. The rhythm appears to be sinus with PVCs. There is some nonspecific ST change. There is no ST elevation, QTc is 438. Continuous Cardiac Monitoring per my interpretation: An order was placed for continuous cardiac monitoring. The monitor shows a rate of 70 with normal sinus rhythm. Critical Care Note: I have personally spent 42 minutes of critical care time in the direct management of this patient. This includes bedside care, interpretation of diagnostic studies, and testing, discussion with consultants, patient, and family members, and other required patient management activities. This 42 minutes is in excess of all separately billable procedures. MEDICAL DECISION MAKING: There is leukocytosis. Patient is anemic but this is baseline looking back at previous testing. There is a normal platelet count. Creatinine is elevated however, the patient does have a history of renal failure. His creatinine values today are improved compared to recent testing. There is no worrisome liver enzyme elevation. ECG shows a sinus rhythm, no ischemia. Cardiac enzyme testing x1 is not consistent with acute cardiac injury. BNP is elevated consistent with CHF and fluid overload. Chest x-ray per my review does show CHF. No pneumonia or pneumothorax. Urinalysis is pending, bilateral lower extremity ultrasound is pending. The patient appears to be fluid overloaded. The excess fluid was noted by exam as well as laboratory testing. The patient was given IV Lasix 40 mg. He was given a DuoNeb, he was given 1 inch of nitroglycerin paste. The patient is currently resting comfortably. Given his past history and current findings, I do think he requires a hospital stay for diuresis. I spoke with the patient and his family, I spoke with case management, the on- call hospitalist was consulted. DISPOSITION: Patient's presentation and findings warrant a hospital stay. 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 Chronic back pain Coronary artery disease COVID-19 Deep vein thrombosis Deep vein thrombosis ~1989'S Depression Gastroenteritis due to 2019-nCoV Hearing deficit Hemodialysis patient LAST DIAYLSIS FEBRUARY 11, 2019. NEPHROLOGY HAS STOPPED DIAYLSIS FOR THE TIME. Hyperkalemia Hypersensitivity pneumonitis Left leg DVT Liver mass Metabolic acidosis Metabolic acidosis On anticoagulant therapy Osteoarthritis Peripheral neuropathy Peripheral vascular disease Pneumonia Pneumonia 3 YRS AGO Pneumonia due to COVID-19 virus Scrotal swelling Secondary hyperparathyroidism of renal origin Severe protein-calorie malnutrition Situational depression Sleep apnea NON-COMPLIANT UTI (urinary tract infection) Vitamin D deficiency Weight loss Surgical History H/O vascular surgery REMOVAL OF DVT History of cardiac cath X1. FOLLOWS WITH DR JOYNER History of colonoscopy History of esophagogastroduodenoscopy (EGD) History of heart artery stent History of lumbar discectomy History of umbilical hernia repair S/P femoral-femoral bypass surgery RIGHT LEG Family History Mother FHx: lung cancer FHx: uterine cancer Other Allergy Cancer Diabetes Heart disease Lung cancer Lung disease Denies family history of Tuberculosis Emphysema of lung Asthma Social History Smoking Status: Never smoker Tobacco Type: Cigarettes packs per day: 1; Second Hand Exposure: No; Do You Dip or Chew Tobacco: No; Hx Alcohol Use: No Hx Substance Use: No Preferred Language: Armenian Communication Ability: Effective Enterprise Application 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 Required: No Beliefs That Will Affect Care: None Current Living Situation: Spouse Feels Safe at Home: Yes Assistive Devices: Glasses and Oxygen - Continuous Allergies Allergies Allergy/AdvReac Type Severity Reaction Status Date / Time No Known Allergies Allergy Verified 01/16/23 10:17 Home Meds Home Medications Medication Instructions Recorded Confirmed atorvastatin 80 mg tablet (Lipitor) 80 mg PO HS #0 tabs 12/21/14 01/16/23 finasteride 5 mg tablet 5 mg PO QAM 12/04/18 01/16/23 clopidogrel 75 mg tablet 75 mg PO DAILY 09/15/21 01/16/23 citalopram 20 mg tablet 20 mg PO DAILY 08/06/22 01/16/23 aspirin 81 mg tablet,delayed 81 mg PO QPM 01/08/23 01/16/23 release Portable Oxygen 01/16/23 Previous Rx's Medication Instructions Recorded pantoprazole 40 mg tablet,delayed 40 mg PO DAILY #30 tabs 08/10/22 release epoetin neptali 20,000 unit/mL 20,000 unit subcut MONTHLY #1 mL 10/23/22 injection solution (Procrit) albuterol sulfate 90 mcg/actuation 2 puff inhalation Q6H PRN 01/01/23 aerosol inhaler Shortness Of Breath Or Wheezing #18 grams carvedilol 25 mg tablet 25 mg PO BID #180 tabs 01/16/23 Results & Data (ED) Vital Signs Vital Signs - 24 hr 02/05/23 15:59 02/05/23 16:37 02/05/23 17:07 Temperature 36.6 C Temperature Source Temporal Artery Scan Pulse Rate 70 64 Respiratory Rate 16 Respiratory Effort / Characteristics Non-Labored Short of Breath SOB on Exertion Respiratory Depth Normal Normal Respiratory Pattern Regular Blood Pressure 169/78 H Blood Pressure [Left Arm] Blood Pressure Mean 108 Blood Pressure Mean [Left Arm] Blood Pressure Position [Left Arm] Pulse Oximetry 99 Oxygen Delivery Method Room Air Room Air Oxygen Flow Rate Sepsis Recent Fever Within 48 Hours No Sepsis New/Unexplained Change in Mental Status No Sepsis Action Taken by Nursing No Action Required 02/05/23 17:14 02/05/23 17:16 Temperature Temperature Source Pulse Rate 63 Respiratory Rate 21 Respiratory Effort / Characteristics Respiratory Depth Respiratory Pattern Blood Pressure Blood Pressure [Left Arm] 160/72 H Blood Pressure Mean Blood Pressure Mean [Left Arm] 101 Blood Pressure Position [Left Arm] Lying Pulse Oximetry 100 Oxygen Delivery Method Nasal Cannula Oxygen Flow Rate 6 Sepsis Recent Fever Within 48 Hours Sepsis New/Unexplained Change in Mental Status Sepsis Action Taken by [facility] Medications Current Medication List: was personally reviewed by me Laboratory Data Attestation: I reviewed the patient's lab results. 02/05/23 16:12 02/05/23 16:12 Lab Results 02/05/23 02/05/23 02/05/23 Range/Units 16:12 16:12 16:12 WBC 4.79 L (4.8-10.8) K/ul RBC 3.13 L (4.70-6.10) M/uL Hgb 9.2 L (14.0-18.0) g/dl Hct 31.3 L (42.0-52.0) % MCV 100.0 (80.0-100.0) fL MCH 29.4 (25.0-34.0) pg MCHC 29.4 L (32.0-36.0) g/dL RDW Std Deviation 59.4 H (36.4-46.3) fL RDW Coeff of Xiomara 16.3 H (11.5-14.5) % Plt Count 198 (130-400) K/uL MPV 9.8 (9.4-12.4) fL Immature Gran % (Auto) 0.4 % Neut % (Auto) 66.9 % Lymph % (Auto) 7.9 % [place] % (Auto) 12.5 % Eos % (Auto) 11.7 % Baso % (Auto) 0.6 % Neut # (Auto) 3.20 (1.40-6.50) K/uL Lymph # (Auto) 0.38 L (1.2-3.4) K/uL [place] # (Auto) 0.60 H (0.11-0.59) K/uL Eos # (Auto) 0.56 H (0-0.50) K/uL Baso # (Auto) 0.03 (0-0.2) K/uL Immature Gran # (Auto) 0.02 (0.01-0.20) K/uL PT Cancelled INR Cancelled APTT Cancelled PTT Ratio Cancelled Sodium 144 (136-145) mmol/L Potassium 4.1 (3.5-5.1) mmol/L Chloride 113 H (98-107) mmol/L Carbon Dioxide 27 (21-32) mmol/L Anion Gap 4 (3-11) BUN 42 H (6-23) mg/dl Creatinine 2.92 H (0.6-1.4) mg/dl Est Cr Clr Drug Dosing Not Reportable Est GFR ( Amer) 22.9 ml/min Est GFR (Non-Af Amer) 19.8 ml/min BUN/Creatinine Ratio 14.4 (10-20) Glucose 89 (70-99(Fasting)) mg/dl Calcium 8.4 L (8.6-10.3) mg/dl Magnesium 2.1 (1.7-2.4) mg/dl Total Bilirubin 0.4 (0.2-1.0) mg/dl AST 13 (13-39) U/L ALT 15 (7-52) U/L Alkaline Phosphatase 54 (34-104) U/L Troponin I High Sens 16.7 (0-20) pg/ml B-Natriuretic Peptide (0-100) pg/ml Total Protein 5.8 L (6.0-8.3) gm/dl Albumin 3.8 (3.4-5.0) gm/dl Globulin 2.0 L (2.5-4.0) gm/dl Albumin/Globulin Ratio 1.9 (0.9-2) 02/05/23 Range/Units 16:12 WBC (4.8-10.8) K/ul RBC (4.70-6.10) M/uL Hgb (14.0-18.0) g/dl Hct (42.0-52.0) % MCV (80.0-100.0) fL MCH (25.0-34.0) pg MCHC (32.0-36.0) g/dL RDW Std Deviation (36.4-46.3) fL RDW Coeff of Xiomara (11.5-14.5) % Plt Count (130-400) K/uL MPV (9.4-12.4) fL Immature Gran % (Auto) % Neut % (Auto) % Lymph % (Auto) % [place] % (Auto) % Eos % (Auto) % Baso % (Auto) % Neut # (Auto) (1.40-6.50) K/uL Lymph # (Auto) (1.2-3.4) K/uL [place] # (Auto) (0.11-0.59) K/uL Eos # (Auto) (0-0.50) K/uL Baso # (Auto) (0-0.2) K/uL Immature Gran # (Auto) (0.01-0.20) K/uL PT INR APTT PTT Ratio Sodium (136-145) mmol/L Potassium (3.5-5.1) mmol/L Chloride (98-107) mmol/L Carbon Dioxide (21-32) mmol/L Anion Gap (3-11) BUN (6-23) mg/dl Creatinine (0.6-1.4) mg/dl Est Cr Clr Drug Dosing Est GFR ( Amer) ml/min Est GFR (Non-Af Amer) ml/min BUN/Creatinine Ratio (10-20) Glucose (70-99(Fasting)) mg/dl Calcium (8.6-10.3) mg/dl Magnesium (1.7-2.4) mg/dl Total Bilirubin (0.2-1.0) mg/dl AST (13-39) U/L ALT (7-52) U/L Alkaline Phosphatase (34-104) U/L Troponin I High Sens (0-20) pg/ml B-Natriuretic Peptide 986 H (0-100) pg/ml Total Protein (6.0-8.3) gm/dl Albumin (3.4-5.0) gm/dl Globulin (2.5-4.0) gm/dl Albumin/Globulin Ratio (0.9-2) Administered Medications Discontinued Medications Albuterol (Albut/Ipratrop 3mg/0.5mg Neb 3 Ml Vial) 3 ml INH NOW STA Stop: 02/05/23 16:34 Last Admin: 02/05/23 16:43 Dose: 3 ml Documented By: FATOUMATA Furosemide (Furosemide 40 Mg/4 Ml Vial) 40 mg IV ONE ONE Stop: 02/05/23 16:45 Last Admin: 02/05/23 16:57 Dose: 40 mg Documented By: FATOUMATA Nitroglycerin (Nitroglycerin 2% Ointment 30gm Tube) 1 inch EXT NOW STA Stop: 02/05/23 16:46 Last Admin: 02/05/23 16:56 Dose: 1 inch Documented By: FATOUMATA Imaging Data Radiologist's Impression: Chest X-Ray 02/05/23 16:33 XR chest 1V portable HISTORY: 77 years-old Male Dyspnea acute shortness of breath COMPARISON: Chest radiograph 01/08/2023 TECHNIQUE: AP view the chest FINDINGS: Cardiac silhouette is enlarged. Unchanged positioning of the left IJ Xkzglk-o-Xraz catheter. No pneumothorax or large pleural effusion. Pulmonary vascular congestion with interstitial coarsening, right greater than left. Degenerative changes of the shoulders and spine. IMPRESSION: Cardiomegaly with pulmonary vascular congestion and progressive interstitial coarsening which may represent mild developing pulmonary edema. ACT 112: Negative or not required by law. The above report was generated using voice recognition software. It may contain grammatical, syntax or spelling errors. Electronically signed by: Usama Villarreal M.D. 02/05/2023 5:02 PM Discharge Plan Visit Data Chief Complaint: Respiratory Problems Stated Complaint: LEGS SWELLING,JOINT PAIN 6,DIFFICULT BREATHING ED Provider: Cheo Benoit Discharge Problem: SOB (shortness of breath), Anemia, CHF (congestive heart failure), Pedal edema, Renal failure Patient Disposition: Admitted As Inpatient Condition: Fair Forms Stand Alone Forms: [facility] Prescriptions Prescriptions: No Action atorvastatin [Lipitor] 80 mg Tablet 80 mg PO HS Qty: 0 Procrit 20,000 unit/mL solution 20,000 unit subcut MONTHLY Qty: 1 11RF Rx Instructions: Okay to hold for Hbg greater than 11. Approved till 02/09/2023. Approved as buy and bill. clopidogrel 75 mg tablet 75 mg PO DAILY albuterol sulfate 90 mcg/actuation HFA aerosol inhaler 2 puff inhalation Q6H PRN (Reason: Shortness Of Breath Or Wheezing) Qty: 18 3RF (DME) Portable Oxygen Misc See Rx Instructions .MEDSUPPLY Rx Instructions: Oxygen 3 liters continuous via nasal cannula on exertion with portable concentrator. ZENOBIA 99 Qpm and on exertion. carvedilol 25 mg tablet 25 mg PO BID Qty: 180 3RF Rx Instructions: must administer with a meal/food finasteride 5 mg tablet 5 mg PO QAM citalopram 20 mg tablet 20 mg PO DAILY pantoprazole 40 mg Tablet,Delayed Release (Dr/Ec) 40 mg PO DAILY Qty: 30 0RF aspirin 81 mg Tablet,Delayed Release (Dr/Ec) 81 mg PO QPM Referrals Referrals: Vinod Pang [Primary Care Provider] -
[2023-02-05] MEDS ORDERED: FUROSEMIDE 40 MG/4 ML VIAL IV ONE (16:44)
[2023-02-05] MEDS ORDERED: NITROGLYCERIN 2% OINTMENT 30GM TUBE EXT STA (16:45)
[2023-02-05 16:53] LABS: Basophils # (auto) 0.03 K/uL (0-0.2); Basophils % (auto) 0.6 %; Eosinophils # (auto) 0.56 K/uL (0-0.50); Eosinophils % (auto) 11.7 %; Hematocrit (blood only) 31.3 % (42.0-52.0); Hemoglobin 9.2 g/dl (14.0-18.0); Immature Granulocytes # (auto) 0.02 K/uL (0.01-0.20); Immature Granulocytes % (auto) 0.4 %; Lymphocytes # (auto) 0.38 K/uL (1.2-3.4); Lymphocytes % (auto) 7.9 %; Mean Corpuscular Hemoglobin 29.4 pg (25.0-34.0); Mean Corpuscular Hgb Conc 29.4 g/dL (32.0-36.0); Mean Platelet Volume 9.8 fL (9.4-12.4); Monocytes % (auto) 12.5 %; Neutrophils % (auto) 66.9 %; Platelet Count 198 K/uL (130-400); RDW Coefficient of Variation 16.3 % (11.5-14.5); RDW Standard Deviation 59.4 fL (36.4-46.3); Red Blood Count 3.13 M/uL (4.70-6.10); White Blood Count 4.79 K/ul (4.8-10.8)
--- NOTE | 2023-02-05 17:03 | XRay Report ---
XR chest 1V portable HISTORY: 77 years-old Male Dyspnea acute shortness of breath COMPARISON: Chest radiograph 01/08/2023 TECHNIQUE: AP view the chest FINDINGS: Cardiac silhouette is enlarged. Unchanged positioning of the left IJ Mcrjap-y-Vfcc catheter. No pneum othorax or large pleural effusion. Pulmonary vascular congestion with interstitial coarsening, right greater than left. Degenerative changes of the shoulders and spine. IMPRESSION: Cardiomegaly with pulmonary vascular congestion and progressive interstitial coarsening w hich may represent mild developing pulmonary edema. ACT 112: Negative or not required by law. The above report was generated using voice recognition software. It may contain grammatical, syntax o r spelling errors. Electronically signed by: Usama Villarreal M.D. 02/05/2023 5:02 PM
[2023-02-05 17:10] LABS: Alanine Aminotransferase 15 U/L (7-52); Albumin Globulin Ratio 1.9 (0.9-2); Albumin Level 3.8 gm/dl (3.4-5.0); Alkaline Phosphatase 54 U/L (34-104); Anion Gap 4 (3-11); Aspartate Aminotransferase 13 U/L (13-39); BUN Creatinine Ratio 14.4 (10-20); Bilirubin,Total 0.4 mg/dl (0.2-1.0); Blood Urea Nitrogen 42 mg/dl (6-23); Calcium 8.4 mg/dl (8.6-10.3); Carbon Dioxide 27 mmol/L (21-32); Chloride 113 mmol/L (98-107); Est GFR (African American) 22.9 ml/min; Est GFR (Non-African American) 19.8 ml/min; Glucose 89 mg/dl (70-99(Fasting)); Magnesium 2.1 mg/dl (1.7-2.4); Potassium 4.1 mmol/L (3.5-5.1); Sodium 144 mmol/L (136-145); Total Protein 5.8 gm/dl (6.0-8.3)
[2023-02-05 17:16] LABS: Troponin I High Sensitivity 16.7 pg/ml (0-20)
--- NOTE | 2023-02-05 17:41 | History & Physical Report ---
Date of Service February 05, 2023 Assessment & Plan (1) HFrEF (heart failure with reduced ejection fraction): Plan: [facility] HFrEF, acute, unstable - BNP elevated - CXR consistent with HF - Symptomatic improvement with nitro paste and lasix - Baseline creatinine around 33 0.5, admitting creatinine 2.92 BNP 986 CXR: Pulmonary vascular congestion, progressive interstitial coarsening consistent with developing pulmonary edema Clinically with bilateral increased lower extremity edema Echo 01/2023: Moderate to severe LV dysfunction, mild , mild to moderate MR, mild MN, EF 30-35% Patient is not on Entresto/ARB/Aldactone due to renal function No chest pain prior to admission or at admission. High-sensitivity troponin is normal We will treat clinically as acute on chronic CHF, continue Lasix twice daily Target net output around 1 L/day Had a cardiology follow-up 01/16/2023, at that time carvedilol was increased to 25 mg p.o. twice daily DDx does include COVID/viral illness, COVID is pending at time of admission MAEGAN CPAP nightly with oxygen bleed as needed DDx suspected to include PE at ER presentation, CTA deferred due to CKD and clinical presentation consistent with acute on chronic heart failure Dopplers are pending CKD Right mature AV fistula, has not needed dialysis Continue to follow UOP Admitting potassium 4.1 Restrictive lung disease With history of pulmonary fibrosis/ILD PFTs 12/30/2022: FVC 1.74 (52% predicted), FEV1 1.39 (58% predicted), FEV1/FVC 79.88 (110% predicted), DLCO 12.78 (60% predicted). Moderate restrictive lung disease, no obstructive physiology appreciated, mild decrease in DLCO which corrects for alveolar volume. Noted, unclear underlying cause for this. 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 COPD with emphysema PFTs as noted Continue inhalers Continue oxygen to maintain sat greater than 90%, do not hyper oxygenate due to COPD physiology DVT prophylaxis: Heparin Diet: Low-salt Disposition: Medical telemetry for acute CHF CODE STATUS: DNR/DNI (2) CKD (chronic kidney disease): (3) Chronic respiratory failure: (4) Restrictive lung disease: (5) Chronic kidney disease, stage IV (severe): (6) Cardiomyopathy: (7) ILD (interstitial lung disease): (8) COPD with emphysema: (9) GERD (gastroesophageal reflux disease): History of Present Illness Primary Care Provider: Vinod Poly Jackson is a 77-year-old male with a past medical history of heart failure with reduced ejection fraction, CKD, cardiomyopathy, ILD, COPD with emphysema on chronic 4 to 6 L oxygen, MAEGAN, B-cell lymphoma who was recently admitted from 01/08/2023/02/27 for an episode of complicated UTI who presents with worsening shortness of breath, hypoxia on exertion and increased hypoxia at rest, and evidence of acute on chronic heart failure recently discharged after episode of bacteremia. On 4-6L chronic O2 requirement. Requirements increased at home and cannot maintain >90%. Patient increasing shortness of breath over the last several day joints seem to hurt, neck, knees, legs. Seems genearlly fatigued and achy with nowhere in particular. No redness or joint pain to palpation +bilatearl leg swelling L>R, L is often more swollen than the R due to a prior injury but both sides are worsened No chest pain or chest pressure . Initially denies salty food/salt loads, some discrepancy between patient and family. Says he is having a very strict diet, but does note Some ritz crackers and some sea salt use, per daughter strict diet 2-3 weeks. Minimal sugar. Speltz flower used to try to be held Sleeps in a recliner, often does not sleep flat so not sure if he has orthopnea. He he has no leg pain or calf pain No fever, chills, sweats. No lightheadedness or dizziness. Has a dry cough, no sputum production Medical History: Reviewed Medications: Reviewed Surgical History: Reviewed Family history: Reviewed Allergies: Reviewed Social History: Former cigarette, current chew use. Cessation recommended. Code Status:. DNR/DNI confirmed with Allergies Allergy/AdvReac Type Severity Reaction Status Date / Time No Known Allergies Allergy Verified 01/16/23 10:17 Home Medications Medication Instructions Recorded Confirmed Type atorvastatin 80 mg tablet (Lipitor) 80 mg PO HS #0 tabs 12/21/14 01/16/23 History finasteride 5 mg tablet 5 mg PO QAM 12/04/18 01/16/23 History clopidogrel 75 mg tablet 75 mg PO DAILY 09/15/21 01/16/23 History citalopram 20 mg tablet 20 mg PO DAILY 08/06/22 01/16/23 History pantoprazole 40 mg tablet,delayed 40 mg PO DAILY #30 tabs 08/10/22 01/16/23 Rx release epoetin neptali 20,000 unit/mL 20,000 unit subcut MONTHLY #1 mL 10/23/22 01/16/23 Rx injection solution (Procrit) albuterol sulfate 90 mcg/actuation 2 puff inhalation Q6H PRN 01/01/23 01/16/23 Rx aerosol inhaler Shortness Of Breath Or Wheezing #18 grams aspirin 81 mg tablet,delayed 81 mg PO QPM 01/08/23 01/16/23 History release Portable Oxygen 01/16/23 History carvedilol 25 mg tablet 25 mg PO BID #180 tabs 01/16/23 01/16/23 Rx Past Med/Surg History Medical History Acute kidney injury Acute kidney injury Acute respiratory failure with hypoxia Uclxl-[id number]-kfyvbel kidney injury Anorexia ARF (acute renal failure) 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 Chronic back pain Coronary artery disease COVID-19 Deep vein thrombosis Deep vein thrombosis ~ Depression Gastroenteritis due to 2019-nCoV Hearing deficit Hemodialysis patient LAST DIAYLSIS FEBRUARY 11, 2019. NEPHROLOGY HAS STOPPED DIAYLSIS FOR THE TIME. Hyperkalemia Hypersensitivity pneumonitis Left leg DVT Liver mass Metabolic acidosis Metabolic acidosis On anticoagulant therapy Osteoarthritis Peripheral neuropathy Peripheral vascular disease Pneumonia Pneumonia 3 YRS AGO Pneumonia due to COVID-19 virus Scrotal swelling Secondary hyperparathyroidism of renal origin Severe protein-calorie malnutrition Situational depression Sleep apnea NON-COMPLIANT UTI (urinary tract infection) Vitamin D deficiency Weight loss Surgical History H/O vascular surgery REMOVAL OF DVT History of cardiac cath X1. FOLLOWS WITH DR JOYNER History of colonoscopy History of esophagogastroduodenoscopy (EGD) History of heart artery stent History of lumbar discectomy History of umbilical hernia repair S/P femoral-femoral bypass surgery RIGHT LEG Family History Mother FHx: lung cancer FHx: uterine cancer Other Allergy Cancer Diabetes Heart disease Lung cancer Lung disease Denies family history of Tuberculosis Emphysema of lung Asthma Social History Smoking Status: Never smoker Tobacco Type: Cigarettes packs per day: 1; Second Hand Exposure: No; Do You Dip or Chew Tobacco: No; Hx Alcohol Use: No Hx Substance Use: No Preferred Language: Frisian Communication Ability: Effective Nursing Unit Coordinator Required: No Beliefs That Will Affect Care: None Current Living Situation: Spouse Feels Safe at Home: Yes Assistive Devices: Glasses and Oxygen - Continuous Results & Data Results & Data Vital Signs (Past 12 Hours) Vital Signs Temp Pulse Resp BP BP Pulse Ox O2 Del Method 02/05/23 17:16 160/72 H 02/05/23 17:14 63 21 100 Nasal Cannula 02/05/23 17:07 64 02/05/23 16:37 Room Air 02/05/23 15:59 36.6 C 70 16 169/78 H 99 Room Air O2 Flow Rate 02/05/23 17:16 02/05/23 17:14 6 02/05/23 17:07 02/05/23 16:37 02/05/23 15:59 PG Care Time/CCT Total # of Minutes Spent Total Time Spent with Patient: Total time spent is greater than 50% in coordination of care (as documented) at patient's floor/unit and/or counseling patient: Coding Level of Care Code 10641 INT INP/OBS CARE 3/75MIN Diagnoses HFrEF (heart failure with reduced ejection fraction) I50.20 CKD (chronic kidney disease) N18.9 Chronic respiratory failure J96.10 Restrictive lung disease J98.4 Chronic kidney disease, stage IV (severe) N18.4 Cardiomyopathy I42.9 ILD (interstitial lung disease) J84.9 COPD with emphysema J43.9 GERD (gastroesophageal reflux disease) K21.9 Esophagitis presence: without esophagitis (9) GERD (gastroesophageal reflux disease) Esophagitis presence: without esophagitis Qualified Code(s): K21.9 - Gastro- esophageal reflux disease without esophagitis
[2023-02-05 17:46] LABS: Partial Thromboplastin Ratio 1.1; Partial Thromboplastin Time 29.8 Seconds (21.0-31.0); Prothrombin Time 11.2 Seconds (9.0-12.0)
[2023-02-05 18:07] LABS: Appearance Urine Cloudy (Clear); Bacteria Urine Automated 2+ (Negative); Bilirubin Urine Negative (Negative); Blood Urine 1+ (Negative); Cast Urine Automated 0 /lpf (0-5); Color Urine Yellow; Epithelial Cell Urine Auto 0-5 /lpf (0-5); Glucose Urine UA Negative (Negative); Ketones Urine Negative (Negative); Leukocyte Esterase Urine 3+ (Negative); Nitrite Urine Negative (Negative); Protein Urine Trace (Negative); RBC Urine Automated 0-4 /hpf (0-4); Specific Gravity Urine 1.009 (1.000-1.030); Urobilinogen Urine Negative (Negative); WBC Urine Automated >30 /hpf (0-5)
[2023-02-05] MEDS ORDERED: ALBUTEROL HFA 8 GM INHALER INH PRN (21:58)
[2023-02-05] MEDS ORDERED: ACETAMINOPHEN 325 MG TAB PO PRN (21:58)
--- NOTE | 2023-02-05 22:16 | Ultrasound Report ---
Exam(s): US VENOUS BILATERAL LOWER EXTREMITIES EXAM: US Duplex Bilateral Lower Extremities Veins CLINICAL HISTORY: Reason for exam: Dyspnea. TECHNIQUE: Real-time duplex ultrasound scan of the bilateral lower extremity veins integrating B-mode two-dimensional vascular structure, Doppler spectral analysis, color flow Doppler imaging and compression. COMPARISON: No relevant prior studies available. FINDINGS: Right deep veins: Unremarkable. No DVT in the right common femoral, femoral, proximal deep femoral or popliteal veins. The veins demonstrate normal color flow, are normally compressible, with normal phasic flow and/or augmentation response. Right superficial veins: Unremarkable. No thrombus in the visualized right great saphenous vein. Left deep veins: Unremarkable. No DVT in the left common femoral, femoral, proximal deep femoral or popliteal veins. The veins demonstrate normal color flow, are normally compressible, with normal phasic flow and/or augmentation response. Left superficial veins: Unremarkable. No thrombus in the visualized left great saphenous vein. Soft tissues: Soft tissue edema. IMPRESSION: 1. Bilateral soft tissue edema. No evidence of acute DVT. Electronically signed by: Lester Mathews M.D. 02/05/23 22:14 PM
[2023-02-05] MEDS: HEPARIN SOD 5,000 UNIT/0.5 ML VIAL SQ SCH (22:41)
[2023-02-05] MEDS: ASPIRIN 81 MG ECTAB PO SCH (22:42)
[2023-02-05] MEDS: carvediloL 25 MG TAB PO SCH (22:43)
[2023-02-05] MEDS: ATORVASTATIN 40 MG TAB PO SCH (22:43)
[2023-02-06] MEDS: HEPARIN SOD 5,000 UNIT/0.5 ML VIAL SQ SCH ×3 (05:45→20:45)
[2023-02-06 06:42] LABS: Basophils # (auto) 0.03 K/uL (0-0.2); Basophils % (auto) 0.6 %; Eosinophils # (auto) 0.61 K/uL (0-0.50); Eosinophils % (auto) 12.5 %; Hematocrit (blood only) 30.8 % (42.0-52.0); Hemoglobin 9.3 g/dl (14.0-18.0); Immature Granulocytes # (auto) 0.02 K/uL (0.01-0.20); Immature Granulocytes % (auto) 0.4 %; Lymphocytes % (auto) 8.2 %; Mean Corpuscular Hemoglobin 29.5 pg (25.0-34.0); Mean Corpuscular Hgb Conc 30.2 g/dL (32.0-36.0); Mean Corpuscular Volume 97.8 fL (80.0-100.0); Mean Platelet Volume 10.1 fL (9.4-12.4); Monocytes # (auto) 0.67 K/uL (0.11-0.59); Monocytes % (auto) 13.8 %; Neutrophils # (auto) 3.14 K/uL (1.40-6.50); Neutrophils % (auto) 64.5 %; Platelet Count 185 K/uL (130-400); RDW Coefficient of Variation 16.1 % (11.5-14.5); RDW Standard Deviation 57.3 fL (36.4-46.3); Red Blood Count 3.15 M/uL (4.70-6.10); White Blood Count 4.87 K/ul (4.8-10.8)
[2023-02-06 06:54] LABS: BUN Creatinine Ratio 14.7 (10-20); Calcium 8.2 mg/dl (8.6-10.3); Creatinine Clr Calc Pharmacy 23.9 ml/min; Est GFR (African American) 23.4 ml/min; Est GFR (Non-African American) 20.2 ml/min; Potassium 4.4 mmol/L (3.5-5.1)
[2023-02-06] MEDS: CITALOPRAM 20 MG TAB PO SCH (09:27)
[2023-02-06] MEDS: PANTOprazole 40 MG TAB PO SCH (09:27)
[2023-02-06] MEDS: carvediloL 25 MG TAB PO SCH ×2 (09:27→20:46)
[2023-02-06] MEDS: CLOPIDOGREL BISULFATE 75 MG TAB PO SCH (09:28)
[2023-02-06] MEDS: FINASTERIDE 5 MG TAB PO SCH (09:28)
[2023-02-06] MEDS: FUROSEMIDE 40 MG/4 ML VIAL IV SCH ×2 (09:28→16:57)
--- NOTE | 2023-02-06 19:06 | Electrocardiogram Report ---
Test Reason : Blood Pressure : / mmHG Vent. Rate : 072 BPM Atrial Rate : 000 BPM P-R Int : 000 ms QRS Dur : 092 ms QT Int : 400 ms P-R-T Axes : 000 018 119 degrees QTc Int : 438 ms Sinus rhythm with occasional Premature ventricular complexes Nonspecific ST and T wave abnormality Abnormal ECG When compared with ECG of 08-JAN-2023 10:10, No significant change Confirmed by Jasper Zavala ([id number]) on 02/06/2023 7:05:48 PM Referred By: REFERRED SELF Confirmed By:Jasper Zavala
[2023-02-06] MEDS: ASPIRIN 81 MG ECTAB PO SCH (20:46)
[2023-02-06] MEDS: ATORVASTATIN 40 MG TAB PO SCH (20:46)
--- NOTE | 2023-02-06 20:47 | Urology Consultation ---
Date of Consultation February 06, 2023 Assessment & Plan (1) Complicated UTI (urinary tract infection): The patient has currently been admitted to the hospital service and is being treated for exacerbation of congestive heart failure. From a urologic perspective we recommend the following: The patient is currently receiving antibiotics in the form of Bactrim. Review of patient's past cultures show the E. coli that grew in his blood cultures and urine culture are sensitive this to this antibiotic so we will continue this for the present time. The patient has had a repeat urine culture obtained this admission which grew gram-negative bacilli. We will follow for the results of this culture and once further bacteria identification is available a determination can be made if patient's antibiotic should be switched. I discussed with the nursing staff that a postvoid residual via bladder scan should be checked after the patient's next void to ensure that he is adequately draining his bladder in the setting of a urinary tract infection. If the patient has significant postvoid residual straight catheterization or Mccall catheter placement may need to be considered. Additional recommendations will be forthcoming based on the patient's clinical course as it unfolds History of Present Illness Reason for Consultation: Urinary tract infection with concern for prostatitis Attending Physician: Hakeem Navarro History of Present Illness This is a 78-year-old male who was admitted to [facility] from 01/08/2023 through 01/10/2023. During this admission the patient was noted to have a complicated urinary tract infection and was admitted secondary to acute sepsis from urinary source and concern for prostatitis. During this admission the patient had blood cultures sent on 01/08/2023. 1 blood culture came back positive for E. coli which was pansensitive. Patient also had a urine culture on the same day which also grew E. coli that was pansensitive the patient did have repeat blood cultures drawn on 01/10/2023 which were negative for growth. Imaging performed during this admission included a CT scan of the abdomen pelvis. On this study the patient was noted to have minimal left hydroureteronephrosis with some left-sided perinephric stranding. There were no obstructing stones or lesions identified on this study. The interpreting radiologist did raise the possibility that this finding could represent the sequelae of a recently passed kidney stone. The patient was noted to have punctate nonobstructing calculi in both kidneys. Also on this study the patient was noted to have an enlarged and heterogeneous prostate gland. The bladder was noted to be thickened which was suggestive of a chronic outlet obstruction. Patient was treated with antibiotics and ultimately discharged home on Bactrim. The patient notes that he has been taking his Bactrim as prescribed since discharge home. The patient was instructed that he would likely need to follow-up with urology but this has not yet been undertaken. The patient has been readmitted to [facility] on 02/05/2023. Prior to admission the patient noted that he has been having worsening shortness of breath and hypoxia and dyspnea on exertion. Since the patient has been admitted he has had imaging and labs which I independent reviewed. He did have a lower extremity venous Doppler which was negative for DVT and he had a chest x-ray that showed concern for pulmonary edema. Labs include a CBC were white blood cell count was 4.7. His hemoglobin and hematocrit were 9.2 and 31.3. His platelet count was noted to be normal. Chemistry profile showed sodium and potassium are both normal. The patient's BUN and creatinine were 42 and 2.9 (this level of creatinine was near the patient's baseline). The patient had an elevated BNP at 986. A urinalysis was performed this admission that showed cloudy urine. The specimen was negative for nitrites but did have 3+ leukocyte Estrace and greater than 30 white blood cells per high-power field. 2+ bacteria were noted on the study. There is no yeast noted on the study. The patient has had a repeat urine culture obtained which did grow out gram-negative bacilli with further identification pending. I question the patient about urologic symptoms and he specifically denies any fevers, shakes, or chills. He denies any back or flank pain. The patient denies any hematuria. He denies any dysuria. The patient notes that because of his shortness of breath and pulmonary edema he has been given Lasix so he does report urinary frequency but he does feel as though he can empty his bladder completely and feels his urine stream is strong. He denies any pain in his perineal area. I did discuss with the nursing staff and the patient has been voiding without difficulty and his urine has been clear. At the time of my interview he was resting comfortably in bed and he was in no distress. Allergies Allergy/AdvReac Type Severity Reaction Status Date / Time No Known Allergies Allergy Verified 02/05/23 20:23 Home Medications Medication Instructions Recorded Confirmed Type atorvastatin 80 mg tablet (Lipitor) 80 mg PO HS #0 tabs 12/21/14 02/05/23 History finasteride 5 mg tablet 5 mg PO QAM 12/04/18 02/05/23 History clopidogrel 75 mg tablet 75 mg PO DAILY 09/15/21 02/05/23 History citalopram 20 mg tablet 20 mg PO DAILY 08/06/22 02/05/23 History pantoprazole 40 mg tablet,delayed 40 mg PO DAILY #30 tabs 08/10/22 02/05/23 Rx release epoetin neptali 20,000 unit/mL 20,000 unit subcut MONTHLY #1 mL 10/23/22 02/05/23 Rx injection solution (Procrit) albuterol sulfate 90 mcg/actuation 2 puff inhalation Q6H PRN 01/01/23 02/05/23 Rx aerosol inhaler Shortness Of Breath Or Wheezing #18 grams aspirin 81 mg tablet,delayed 81 mg PO QPM 01/08/23 02/05/23 History release Portable Oxygen 01/16/23 History carvedilol 25 mg tablet 25 mg PO BID #180 tabs 01/16/23 02/05/23 Rx Patient History Medical History Acute kidney injury Acute kidney injury Acute respiratory failure with hypoxia [id number] kidney injury Anorexia ARF (acute renal failure) 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 Chronic back pain Coronary artery disease COVID-19 Deep vein thrombosis Deep vein thrombosis ~1989' Depression Gastroenteritis due to 2019-nCoV Hearing deficit Hemodialysis patient LAST DIAYLSIS FEBRUARY 11, 2019. NEPHROLOGY HAS STOPPED DIAYLSIS FOR THE TIME. Hyperkalemia Hypersensitivity pneumonitis Left leg DVT Liver mass Metabolic acidosis Metabolic acidosis On anticoagulant therapy Osteoarthritis Peripheral neuropathy Peripheral vascular disease Pneumonia Pneumonia 3 YRS AGO Pneumonia due to COVID-19 virus Scrotal swelling Secondary hyperparathyroidism of renal origin Severe protein-calorie malnutrition Situational depression Sleep apnea NON-COMPLIANT UTI (urinary tract infection) Vitamin D deficiency Weight loss Surgical History H/O vascular surgery REMOVAL OF DVT History of cardiac cath X1. FOLLOWS WITH DR JOYNER History of colonoscopy History of esophagogastroduodenoscopy (EGD) History of heart artery stent History of lumbar discectomy History of umbilical hernia repair S/P femoral-femoral bypass surgery RIGHT LEG Family History Mother FHx: lung cancer FHx: uterine cancer Other Allergy Cancer Diabetes Heart disease Lung cancer Lung disease Denies family history of Tuberculosis Emphysema of lung Asthma Social History Smoking Status: Never smoker Tobacco Type: Cigarettes packs per day: 1; Second Hand Exposure: No; Do You Dip or Chew Tobacco: No; Tobacco Cessation Education Requested by Patient: No Hx Alcohol Use: Yes Alcohol type: beer Hx Substance Use: No Preferred Language: Hebrew Communication Ability: Effective Administrative Services Assistant Required: No Beliefs That Will Affect Care: None Current Living Situation: Spouse Other Information That Helps Us Care for You: No Feels Safe at Home: Yes Safety Concerns: Feels Safe At This Time Assistive Devices: Oxygen - Continuous Review of Systems Constitutional: no fever and no chills Eyes: + corrective lenses Ear, Nose, Mouth, Throat: + hearing loss Respiratory: + dyspnea on exertion (Improved since admission) Cardiovascular: no chest pain Gastrointestinal: no abdominal pain, no nausea and no vomiting Genitourinary: + as per Subjective / HPI Musculoskeletal: no back pain Integumentary: no rash Neurologic: no localized weakness Physical Exam Constitutional: WD/WN, vitals as above Eyes: Wears glasses ENMT: Ears: + hearing impairment (Patient can hear adequately when spoken to with loud phonation); no external ear abnormality Mouth: no oropharynx abnormality Neck: trachea midline Respiratory: normal respiratory effort; no respiratory distress and no labored breathing Cardiovascular: Rate/Rhythm: regular rate and regular rhythm Gastrointestinal (Abdomen): Abdomen is soft, nonrigid, nondistended, and nontender to palpation Musculoskeletal: Bilateral lower extremity edema noted Skin: no rashes Neurologic: moves all extremities Psychiatric: A+Ox3, euthymic affect Genitourinary: no CVA tenderness Results & Data Vital Signs (Past 12 Hours) Vital Signs Temp Pulse Pulse Resp BP Pulse Ox O2 Del Method 02/06/23 19:00 36.9 C 60 20 145/65 H 100 Nasal Cannula 05/02/23 15:25 36.9 C 57 L 18 126/69 100 Nasal Cannula 02/06/23 14:55 57 L 02/06/23 12:00 36.5 C 61 18 120/66 100 Nasal Cannula 02/06/23 09:15 64 02/06/23 11:17 Nasal Cannula O2 Flow Rate 02/06/23 19:00 2 02/06/23 15:25 4 02/06/23 14:55 02/06/23 12:00 6 02/06/23 09:15 02/06/23 11:17 6 PG Care Time/CCT Total # of Minutes Spent Total Time Spent with Patient: Total time spent is greater than 50% in coordination of care (as documented) at patient's floor/unit and/or counseling patient: Coding Level of Care Code 12136 INT INP/OBS CARE MIN Diagnoses Complicated UTI (urinary tract infection) N39.0
[2023-02-06] MEDS ORDERED: SULFAMETHOXAZOLE/TRIMETHOPRIM DS 800/160MG TAB PO SCH (21:00)
--- NOTE | 2023-02-06 22:49 | Hospitalist Progress Note ---
Date of Service February 06, 2023 Assessment & Plan (1) HFrEF (heart failure with reduced ejection fraction): Plan: C HFrEF, acute, unstable - BNP elevated - CXR consistent with HF - Symptomatic improvement with nitro paste and lasix - Baseline creatinine around 33 0.5, admitting creatinine 2.92 BNP 986 CXR: Pulmonary vascular congestion, progressive interstitial coarsening consistent with developing pulmonary edema Clinically with bilateral increased lower extremity edema Echo 01/2023: Moderate to severe LV dysfunction, mild , mild to moderate MR, mild CO, EF 30-35% Patient is not on Entresto/ARB/Aldactone due to renal function No chest pain prior to admission or at admission. High-sensitivity troponin is normal We will treat clinically as acute on chronic CHF, continue Lasix twice daily Target net output around 1 L/day Had a cardiology follow-up 01/16/2023, at that time carvedilol was increased to 25 mg p.o. twice daily DDx does include COVID/viral illness, COVID is pending at time of admission -will continue IV diuretics BID -creatinine is stable, family requesting cardiology and nephrology consult. reviewed blood work: PRP MAEGAN CPAP nightly with oxygen bleed as needed DDx suspected to include PE at ER presentation, CTA deferred due to CKD and clinical presentation consistent with acute on chronic heart failure Dopplers are pending (2) Complicated UTI (urinary tract infection): Plan: Given that patient was treated for 2 weeks with correct antibiotic, had hematuria in last visit, as well as bactermeia. There was a strong suspicion that this was acute prostatitis. Given the failed treratment with cephalexin, seems doubtful a male had a recurrent uti, more likely original infection was not fully treated. Will obtain blood cultures, urine cultures pending, will place on bactrim to treat acute prostatitis as this penetrates prostate capsule. will likely need at least 4 weeks of treatment. currently placed on renal dosing. (3) CKD (chronic kidney disease): (4) Chronic respiratory failure: Plan: COPD with emphysema PFTs as noted Continue inhalers Continue oxygen to maintain sat greater than 90%, do not hyper oxygenate due to COPD physiology (5) Restrictive lung disease: Plan: Restrictive lung disease With history of pulmonary fibrosis/ILD PFTs 12/30/2022: FVC 1.74 (52% predicted), FEV1 1.39 (58% predicted), FEV1/FVC 79.88 (110% predicted), DLCO 12.78 (60% predicted). Moderate restrictive lung disease, no obstructive physiology appreciated, mild decrease in DLCO which corrects for alveolar volume. Noted, unclear underlying cause for this. 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 (6) Chronic kidney disease, stage IV (severe): Plan: CKD Right mature AV fistula, has not needed dialysis Continue to follow UOP Admitting potassium 4.1 (7) Cardiomyopathy: Plan: as above. (8) ILD (interstitial lung disease): (9) COPD with emphysema: (10) GERD (gastroesophageal reflux disease): Plan DVT prophylaxis: Heparin Diet: Low-salt Disposition: Medical telemetry for acute CHF CODE STATUS: DNR/DNI Admission and Anticipated Discharge Date Admission Date: February 05, 2023 Subjective 78 yo male is hard of hearing. Family is at bedside He reports he had dysuria a day prior to coming to the hospital. He was treated about 1 month ago for a complicated UTI with cephalexin. Concern that patient may have prostatitis. He states he has been SOB as of late, and did not see Cardiology as an outpatient. Review of Systems Review of Systems: All systems reviewed & are unremarkable except as noted in HPI & below Physical Exam Constitutional: WD/WN, vitals as above Eyes: PERRL, conjunctivae normal, anicteric sclerae ENMT: external ear and nose normal, oropharynx normal Neck: trachea midline, no thyromegaly Respiratory: does not use accessory muscles Auscultation: + rales Cardiovascular: RRR, no murmur, no edema Gastrointestinal (Abdomen): normal bowel sounds, soft, nontender, no hepatosplenomegaly Musculoskeletal: no cyanosis or clubbing, extremities motor strength 5/5 Neurologic: PERRL, EOMI, accommodation nl, no face palsy, no dysarthria Psychiatric: A+Ox3, euthymic affect Lymphatic: no cervical or axillary lymphadenopathy Results & Data Results & Data Vital Signs (Past 12 Hours) Vital Signs Temp Pulse Pulse Resp BP Pulse Ox O2 Del Method 02/06/23 19:00 36.9 C 60 20 145/65 H 100 Nasal Cannula 02/06/23 15:25 36.9 C 57 L 18 126/69 100 Nasal Cannula 02/06/23 14:55 57 L 02/06/23 12:00 36.5 C 61 18 120/66 100 Nasal Cannula 02/06/23 11:17 Nasal Cannula O2 Flow Rate 02/06/23 19:00 2 02/06/23 15:25 4 02/06/23 14:55 02/06/23 12:00 6 02/06/23 11:17 6 PG Care Time/CCT Total # of Minutes Spent Total Time Spent with Patient: Total time spent is greater than 50% in coordination of care (as documented) at patient's floor/unit and/or counseling patient: Coding Level of Care Code 65429 SUB INP/OBS CARE 350MIN Diagnoses HFrEF (heart failure with reduced ejection fraction) I50.20 Complicated UTI (urinary tract infection) N39.0 CKD (chronic kidney disease) N18.9 Chronic respiratory failure J96.10 Restrictive lung disease J98.4 Chronic kidney disease, stage IV (severe) N18.4 Cardiomyopathy I42.9 ILD (interstitial lung disease) J84.9 COPD with emphysema J43.9 GERD (gastroesophageal reflux disease) K21.9 Esophagitis presence: without esophagitis (10) GERD (gastroesophageal reflux disease) Esophagitis presence: without esophagitis Qualified Code(s): K21.9 - Gastro- esophageal reflux disease without esophagitis
[2023-02-07] MEDS: HEPARIN SOD 5,000 UNIT/0.5 ML VIAL SQ SCH ×2 (05:19→13:12)
[2023-02-07 06:13] LABS: Hematocrit (blood only) 31.9 % (42.0-52.0); Mean Corpuscular Hgb Conc 31.3 g/dL (32.0-36.0); Mean Corpuscular Volume 95.8 fL (80.0-100.0); Platelet Count 208 K/uL (130-400); RDW Standard Deviation 56.5 fL (36.4-46.3); Red Blood Count 3.33 M/uL (4.70-6.10); White Blood Count 5.14 K/ul (4.8-10.8)
[2023-02-07 06:31] LABS: BUN Creatinine Ratio 15.1 (10-20); C Reactive Protein 1.03 mg/dl (0-0.5); Calcium 8.7 mg/dl (8.6-10.3); Creatinine Clr Calc Pharmacy 20.7 ml/min; Est GFR (Non-African American) 17.3 ml/min; Potassium 4.3 mmol/L (3.5-5.1)
[2023-02-07] MEDS: PANTOprazole 40 MG TAB PO SCH (09:22)
[2023-02-07] MEDS: CLOPIDOGREL BISULFATE 75 MG TAB PO SCH (09:22)
[2023-02-07] MEDS: FINASTERIDE 5 MG TAB PO SCH (09:22)
[2023-02-07] MEDS: carvediloL 25 MG TAB PO SCH ×3 (09:22→22:35)
[2023-02-07] MEDS: CITALOPRAM 20 MG TAB PO SCH (09:22)
[2023-02-07] MEDS: FUROSEMIDE 40 MG/4 ML VIAL IV SCH (09:23)
--- NOTE | 2023-02-07 09:26 | XRay Report ---
TWO VIEW CHEST CLINICAL HISTORY: Hypoxia. Congestive heart failure. FINDINGS: PA and lateral chest radiograph are compared to study dated 02/05/2023. Correlation is made w [facility] chest CT dated 11/28/2021. A left internal jugular central venous infusion port is unchanged in po sition. The heart is enlarged noting atherosclerotic calcification of the thoracic aorta. Pulmonary v ascular congestion has significantly improved from previous. Chronic interstitial thickening is uncha nged. There is bibasilar scarring/atelectasis. No airspace consolidation or pleural effusion is ident ified. The left upper lobe nodule seen on the 11/28/[address] is not visualized on chest x-ray. No pneumothorax is seen. The skeletal structures are osteopenic. The bony thorax is grossly intact. A c ompression deformity is noted in the lumbar spine. A large calcification is again seen in the liver. IMPRESSION: 1. Cardiomegaly with mild pulmonary vascular congestion. This has significantly improved as compared to 02/05/2023. 2. No airspace consolidation or pleural effusion is identified. ACT 112: Negative or not required by law. Electronically signed by: Cheo Bullard M.D. 02/07/2023 9:25 AM
--- NOTE | 2023-02-07 09:27 | Nephrology Consultation ---
Date of Consultation February 07, 2023 Assessment & Plan (1) Congestive heart failure: * Was not on diuretic as outpatient * Responding well to IV Furosemide - net 2300 cc UO since admission, breathing and LE swelling subjectively improved. CXR improved * Consider transitioning to Bumex 0.5 mg po daily in am * Needs low Na diet at home (2) CKD (chronic kidney disease): * CKD stage G4/A3 (advanced renal impairment). Baseline Cr ~ 3.0 w/ EGFR 19 cc/min * Kidney function is stable at this time. Monitor PRP * Venous limb of AVF does not appear to have matured. Will need outpatient vascular surgery follow up (3) Anemia: * Mild anemia. Hgb 10.0. Will order iron saturation and ferritin (4) Complicated UTI (urinary tract infection): * Urology has evaluated patient and will arrange outpatient follow up History of Present Illness Reason for Consultation: CKD, CHF Attending Physician: Roslyn Wolfe MD History of Present Illness Mr. De La Cruz is a 78 year old white male who is seen at the request of Dr. Navarro for evaluation of CKD, CHF. Medical records in the EMR were reviewed today and are summarized as follows: Mr. De La Cruz has CKD stage G4/A3 (advanced renal impairment). Baseline Cr ~ 3.0 w/ EGFR 19 cc/min. His primary Nephrolo gist is Dr. Kearns. He underwent R RC AVF creation by Dr. Sadler 04/02/19. Outpatient Nephrology evaluation revealed acellular urine sediment, UPCR 0.2. 11/26 renal US - R 10.9cm, L 11.7cm. Cortical atrophy noted. No hydronephrosis. His renal insufficiency is attributed to microvasular disease. Mr. De La Cruz's medical history is also significant for B-cell lymphoma diagnosed 11/26 s/p CHOP, KATHY requiring brief course of HD via TCC 11/26, HTN, MAEGAN, COPD requiring O2 at 4 L/min, PVD s/[place] [facility] [place], COVID pneumonia. Mr. De La Cruz presented to [facility] last evening for evaluation of progressive dyspnea and leg edema. Evaluation revealed preserved kidney function w/ Cr 3.2, BNP 986, normal troponin, ECG - NSR without ischemic change, CXR c/w CHF (Note - 01/28 echocardiogram LVEF 30-35%, mild to moderate MR). IV Furosemide has been started. Patient has diuresed 2100 cc since admission. His breathing is already subjectively improved. Allergies Allergy/AdvReac Type Severity Reaction Status Date / Time No Known Allergies Allergy Verified 02/05/23 20: Home Medications Medication Instructions Recorded Confirmed Type atorvastatin 80 mg tablet (Lipitor) 80 mg PO HS #0 tabs 12/21/14 02/05/23 History finasteride 5 mg tablet 5 mg PO QAM 12/04/18 02/05/23 History clopidogrel 75 mg tablet 75 mg PO DAILY 09/15/21 02/05/23 History citalopram 20 mg tablet 20 mg PO DAILY 08/06/22 02/05/23 History pantoprazole 40 mg tablet,delayed 40 mg PO DAILY #30 tabs 08/10/22 02/05/23 Rx release epoetin neptali 20,000 unit/mL 20,000 unit subcut MONTHLY #1 mL 10/23/22 02/05/23 Rx injection solution (Procrit) albuterol sulfate 90 mcg/actuation 2 puff inhalation Q6H PRN 01/01/23 02/05/23 Rx aerosol inhaler Shortness Of Breath Or Wheezing #18 grams aspirin 81 mg tablet,delayed 81 mg PO QPM 01/08/23 02/05/23 History release Portable Oxygen 01/16/23 History carvedilol 25 mg tablet 25 mg PO BID #180 tabs 01/16/23 02/05/23 Rx Patient History Medical History Acute kidney injury Acute kidney injury Acute respiratory failure with hypoxia Aipqp-ks-sucxtlv kidney injury Anorexia ARF (acute renal failure) 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 Chronic back pain Coronary artery disease COVID-19 Deep vein thrombosis Deep vein thrombosis ~1989'S Depression Gastroenteritis due to 2019-nCoV Hearing deficit Hemodialysis patient LAST DIAYLSIS FEBRUARY 11, 2019. NEPHROLOGY HAS STOPPED DIAYLSIS FOR THE TIME. Hyperkalemia Hypersensitivity pneumonitis Left leg DVT Liver mass Metabolic acidosis Metabolic acidosis On anticoagulant therapy Osteoarthritis Peripheral neuropathy Peripheral vascular disease Pneumonia Pneumonia 3 YRS AGO Pneumonia due to COVID-19 virus Scrotal swelling Secondary hyperparathyroidism of renal origin Severe protein-calorie malnutrition Situational depression Sleep apnea NON-COMPLIANT UTI (urinary tract infection) Vitamin D deficiency Weight loss Surgical History H/O vascular surgery REMOVAL OF DVT History of cardiac cath X1. FOLLOWS WITH DR JOYNER History of colonoscopy History of esophagogastroduodenoscopy (EGD) History of heart artery stent History of lumbar discectomy History of umbilical hernia repair S/P femoral-femoral bypass surgery RIGHT LEG Family History Mother FHx: lung cancer FHx: uterine cancer Other Allergy Cancer Diabetes Heart disease Lung cancer Lung disease Denies family history of Tuberculosis Emphysema of lung Asthma Social History Smoking Status: Never smoker Tobacco Type: Cigarettes packs per day: 1; Second Hand Exposure: No; Do You Dip or Chew Tobacco: No; Hx Alcohol Use: Yes Alcohol type: beer Hx Substance Use: No Preferred Language: Portuguese Communication Ability: Effective Rn Clinical Documentation Required: No Beliefs That Will Affect Care: None Current Living Situation: Spouse Feels Safe at Home: Yes Assistive Devices: Oxygen - Continuous Review of Systems Constitutional: no fever Eyes: no problem reported Ear, Nose, Mouth, Throat: no problem reported Respiratory: + dyspnea Cardiovascular: no chest pain Gastrointestinal: no abdominal pain, no nausea, no vomiting and no diarrhea/loose stools Genitourinary: no dysuria or no hematuria Physical Exam Constitutional: + frail appearing; not in distress Eyes: PERRL, conjunctivae normal, anicteric sclerae ENMT: external ear and nose normal, oropharynx normal Neck: trachea midline, no thyromegaly Respiratory: Auscultation: + rales Cardiovascular: Rate/Rhythm: regular rate and regular rhythm Extremities: + edema (1+ pretibial pitting edema) and + AV fistula (+ bruit but venous limb has not developed) Gastrointestinal (Abdomen): normal bowel sounds, soft, nontender, no hepatosplenomegaly Neurologic: Speech / Cognition: normal speech and normal cognition Results & Data Vital Signs (Past 12 Hours) Vital Signs Temp Pulse Pulse Resp BP Pulse Ox O2 Del Method 02/07/23 08:26 36.7 C 58 L 16 145/68 H 90 Room Air 02/07/23 07:12 63 02/07/23 03:00 36.4 C L 65 20 131/64 99 Nasal Cannula 02/07/23 03:00 36.4 C L 65 20 131/64 99 Nasal Cannula 02/07/23 01:27 81 02/06/23 23:05 Room Air 02/06/23 22:00 Room Air 02/06/23 22:00 36.9 C 59 L 20 143/69 H 98 Nasal Cannula O2 Flow Rate 02/07/23 08:26 02/07/23 07:12 02/07/23 03:00 2 02/07/23 03:00 2 02/07/23 01:27 02/06/23 23:05 02/06/23 22:00 02/06/23 22:00 2 Laboratory Results Laboratory Tests 11/23/20 02/05/23 02/05/23 11:41 16:12 16:12 WBC Hgb Hct Plt Count Sodium Potassium Chloride Carbon Dioxide BUN Creatinine B-Natriuretic Peptide 986 H Albumin 3.8 Ur Specific [place] Urine Protein Urine Blood Urine WBC (Auto) Urine RBC (Auto) Protein/Creatinin Ratio 0.5 H 02/05/23 02/07/23 02/07/23 17:32 05:47 05:47 WBC 5.14 Hgb 10.0 L Hct 31.9 L Plt Count 208 Sodium 142 Potassium 4.3 Chloride 104 Carbon Dioxide 31 BUN 49 H Creatinine 3.25 H D B-Natriuretic Peptide Albumin Ur Specific [place] 1.009 Urine Protein Trace H Urine Blood 1+ H Urine WBC (Auto) >30 H Urine RBC (Auto) 0-4 Protein/Creatinin Ratio Diagnostic Findings 02/05/23 CXR: Cardiomegaly with pulmonary vascular congestion and progressive interstitial coarsening which may represent mild developing pulmonary edema. 02/07/23 CXR: Cardiomegaly with mild pulmonary vascular congestion. This has significantly improved as compared to 02/05/2023. No airspace consolidation or pleural effusion is identified. PG Care Time/CCT Total # of Minutes Spent Total Time Spent with Patient: Total time spent is greater than 50% in coordination of care (as documented) at patient's floor/unit and/or counseling patient: Coding Level of Care Code 07600 IN/OBS CONSULT LVL 5,80M Diagnoses Congestive heart failure I50.9 CKD (chronic kidney disease) N18.9 Anemia N18.4; D63.1 Anemia type: due to chronic kidney disease Chronic kidney disease stage: stage 4 (severe) Complicated UTI (urinary tract infection) N39.0 (3) Anemia Anemia type: due to chronic kidney disease Chronic kidney disease stage: stage 4 (severe) Qualified Code(s): N18.4 - Chronic kidney disease, stage 4 (severe); D63.1 - Anemia in chronic kidney disease
--- NOTE | 2023-02-07 10:51 | Urology Progress Note ---
Date of Service February 07, 2023 Assessment & Plan (1) Complicated UTI (urinary tract infection): Plan 78-year-old male who was treated about 1 month ago for a complicated UTI with cephalexin now admitted with acute on chronic heart failure, UTI, possible prostatitis. - Afebrile. - Labs reviewed-no leukocytosis and creatinine 3.25. Hx CKD, Nephrology following. - Urine culture prelim with proteus vulgaris, blood cultures pending. On PO Bactrim. - Voiding spontaneously, output appears adequate. Continue to monitor, bladder scan prn. - Discussed with patient/family recommendation for outpatient cystoscopy for further evaluation of anatomy. They are agreeable. - We will arrange outpatient follow-up with our service for cystoscopy and continued care. - Continue finasteride, can consider addition of tamsulosin. - Continue supportive care and antibiotics, likely 10-14 day course of Bactrim or Cipro. - Urology will sign-off. Please contact us with any further questions, concerns, or changes in patient status. Admission and Anticipated Discharge Date Admission Date: February 05, 2023 Supervising Physician Co-Signing Physician Notes Discussed patient with YOUNG. Agree with plan. Subjective Patient examined at bedside this AM. Awake, resting in bed on arrival. No acute distress. Family at bedside. He denies abdominal and flank pain. No fevers. Voiding without issue. Denies hematuria and dysuria. Feels he is emptying his bladder well. He does report dysuria prior to coming into the hospital. Review of Systems Constitutional: as per Subjective / HPI Gastrointestinal: as per Subjective / HPI Genitourinary: + as per Subjective / HPI Physical Exam Constitutional: no acute distress ENMT: Ears: + hearing impairment Respiratory: no respiratory distress and no labored breathing Gastrointestinal (Abdomen): Percussion/Palpation: abdomen soft; abdomen nontender Skin: No visible rashes or lesions to exposed skin areas Neurologic: awake Psychiatric: A+Ox3, euthymic affect Results & Data Vital Signs (Past 12 Hours) Vital Signs Temp Pulse Pulse Resp BP Pulse Ox O2 Del Method 02/07/23 08:26 36.7 C 58 L 16 145/68 H 90 Room Air 02/07/23 07:12 63 02/07/23 03:00 36.4 C L 65 20 131/64 99 Nasal Cannula 02/07/23 03:00 36.4 C L 65 20 131/64 99 Nasal Cannula 02/07/23 01:27 81 02/06/23 23:05 Room Air 02/06/23 22:00 Room Air 02/06/23 22:00 36.9 C 59 L 20 143/69 H 98 Nasal Cannula O2 Flow Rate 02/07/23 08:26 02/07/23 07:12 02/07/23 03:00 2 02/07/23 03:00 2 02/07/23 01:27 02/06/23 23:05 02/06/23 22:00 02/06/23 22:00 2 PG Care Time/CCT Total # of Minutes Spent Total Time Spent with Patient: Total time spent is greater than 50% in coordination of care (as documented) at patient's floor/unit and/or counseling patient: Coding Level of Care Code 13875 SUB INP/OBS CARE 2MIN Diagnoses Complicated UTI (urinary tract infection) N39.0
[2023-02-07] MEDS: TAMSULOSIN HCL 0.4 MG CAP PO SCH (11:23)
--- NOTE | 2023-02-07 11:59 | Cardiology Consultation ---
Date of Consultation February 07, 2023 Assessment & Plan (1) HFrEF (heart failure with reduced ejection fraction): (2) Valvular heart disease: (3) Cardiomyopathy: (4) PAD (peripheral artery disease): (5) Coronary artery disease: Plan 1. Decompensated systolic heart failure: His presentation is consistent with pulmonary edema. He had some notable peripheral edema as well. He appears to have responded well to diuretics. Renal function appears stable. He may need to be discharged on a low dose of diuretic in order prevent additional problems. Perhaps 20 mg daily with monitoring his renal function electrolytes. No clear etiology for his decompensation. Perhaps some dietary indiscretion. At this point I would simply continue his b.i.d. diuretics. For evidence of worsening renal function this could be reduced. Symptoms appear to be improving. 2. Cardiomyopathy: Unclear etiology. Likely ischemic given his known peripheral and coronary disease. However, no evaluation has been performed due to his renal dysfunction. He was on dialysis previously, and repeat catheterization would likely result in significant renal injury. He has been maintained on beta-blockade. Other agents appear relatively contraindicated. 3. Valvular heart disease: He has an element of mitral regurgitation and aortic stenosis. Not causing symptoms. 4. coronary artery disease: He has a history of a very remote intervention to an unspecified artery. It is very likely has significant coronary disease based on his other risk factors. No symptoms of angina. Again, continued on beta- blockade. Also on high-dose atorvastatin and aspirin. 5. Bradycardia: He has a element of mild bradycardia. No symptoms. I do not think there is an indication for pacemaker. He was evaluated previously for an ICD as primary prevention against sudden cardiac in the setting of his reduced LV systolic function. Unclear if he is a good candidate based on the remainder of his comorbidities. This can be addressed in the outpatient setting. History of Present Illness Reason for Consultation: Congestive heart failure Requesting Physician: Ramon Attending Physician: Roslyn Wolfe MD History of Present Illness the patient is a 78-year-old gentleman with an extensive past medical history to include peripheral vascular disease, coronary artery disease, oxygen- dependent COPD, restrictive lung disease with pulmonary fibrosis, history of B- cell lymphoma, chronic renal failure and more recently reduced LV systolic function. Patient was recently admitted to the hospital with a urinary tract infection. He states that at the time of discharge she was feeling relatively well. Overall his activities are limited by his chronic medical problems but he is able to perform routine work around the house with supplemental oxygen. Patient states that for few days leading up to his admission his breathing was more troublesome, his oxygen saturations were worse, he required more supplemental oxygen and was very fatigued. He also noted some increasing lower extremity edema. He did not report orthopnea or paroxysmal nocturnal dyspnea, but does sleep in a recliner primarily for orthopedic reasons. He denies dizziness or lightheadedness. He has not been aware of any palpitations. He has not had chest pains. His hospital evaluations suggested an element of pulmonary vascular congestion. He has undergone diuresis over the past 2 days with improvement in his symptoms. Patient states that today he was ambulatory to the bathroom with minimal shortness of breath. He did not report orthostatic type symptoms. He is anxious to do more walking. He thinks the lower extremity edema has also improved. Allergies Allergy/AdvReac Type Severity Reaction Status Date / Time No Known Allergies Allergy Verified 02/05/23 20:23 Home Medications Medication Instructions Recorded Confirmed Type atorvastatin 80 mg tablet (Lipitor) 80 mg PO HS #0 tabs 12/21/14 02/05/23 History finasteride 5 mg tablet 5 mg PO QAM 12/04/18 02/05/23 History clopidogrel 75 mg tablet 75 mg PO DAILY 09/15/21 02/05/23 History citalopram 20 mg tablet 20 mg PO DAILY 08/06/22 02/05/23 History pantoprazole 40 mg tablet,delayed 40 mg PO DAILY #30 tabs 08/10/22 02/05/23 Rx release epoetin neptali 20,000 unit/mL 20,000 unit subcut MONTHLY #1 mL 10/23/22 02/05/23 Rx injection solution (Procrit) albuterol sulfate 90 mcg/actuation 2 puff inhalation Q6H PRN 01/01/23 02/05/23 Rx aerosol inhaler Shortness Of Breath Or Wheezing #18 grams aspirin 81 mg tablet,delayed 81 mg PO QPM 01/08/23 02/05/23 History release Portable Oxygen 01/16/23 History carvedilol 25 mg tablet 25 mg PO BID #180 tabs 01/16/23 02/05/23 Rx apixaban 5 mg tablet (Eliquis) 5 mg PO BID #60 tabs 02/08/23 Rx bumetanide 0.5 mg tablet 0.5 mg PO DAILY PRN weight gain or 02/08/23 Rx leg swelling #30 tabs ciprofloxacin HCl 500 mg tablet 500 mg PO QPM #9 tabs 02/08/23 Rx tamsulosin 0.4 mg capsule 0.4 mg PO QAM #30 caps 02/08/23 Rx Patient History Medical History (Updated 02/07/23 @ 18:12 by Roslyn Wolfe MD) Acute kidney injury Acute kidney injury Acute respiratory failure with hypoxia [id number] kidney injury Anorexia ARF (acute renal failure) 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 Chronic back pain Coronary artery disease COVID-19 Deep vein thrombosis Deep vein thrombosis ~ Depression Gastroenteritis due to 2019-nCoV Hearing deficit Hemodialysis patient LAST DIAYLSIS FEBRUARY 11, 2019. NEPHROLOGY HAS STOPPED DIAYLSIS FOR THE TIME. Hyperkalemia Hypersensitivity pneumonitis Left leg DVT Liver mass Metabolic acidosis Metabolic acidosis On anticoagulant therapy Osteoarthritis Paroxysmal atrial fibrillation Peripheral neuropathy Peripheral vascular disease Pneumonia Pneumonia 3 YRS AGO Pneumonia due to COVID-19 virus Scrotal swelling Secondary hyperparathyroidism of renal origin Severe protein-calorie malnutrition Situational depression Sleep apnea NON-COMPLIANT UTI (urinary tract infection) Vitamin D deficiency Weight loss Surgical History H/O vascular surgery REMOVAL OF DVT History of cardiac cath X1. FOLLOWS WITH DR JOYNER History of colonoscopy History of esophagogastroduodenoscopy (EGD) History of heart artery stent History of lumbar discectomy History of umbilical hernia repair S/P femoral-femoral bypass surgery RIGHT LEG Family History Mother FHx: lung cancer FHx: uterine cancer Other Allergy Cancer Diabetes Heart disease Lung cancer Lung disease Denies family history of Tuberculosis Emphysema of lung Asthma Social History Smoking Status: Never smoker Tobacco Type: Cigarettes packs per day: 1; Second Hand Exposure: No; Do You Dip or Chew Tobacco: No; Hx Alcohol Use: Yes Alcohol type: beer Hx Substance Use: No Preferred Language: Khmer Communication Ability: Effective Salvage Engineer Required: No Beliefs That Will Affect Care: None Current Living Situation: Spouse Feels Safe at Home: Yes Assistive Devices: Oxygen - Continuous Review of Systems Review of Systems: Per HPI. No recent fevers or chills. Physical Exam Physical Exam: The patient is alert and oriented. Mood and affect appeared normal. He answered all questions appropriately. HEENT: Pupils are equal and reactive to light and accommodation. Extraocular movements are intact. The sclerae are anicteric. Neuro: Cranial nerves intact Chest: Left pectoral infusion port. Lungs: Clear to auscultation bilaterally. He has good air movement without use of accessory muscles. No rales wheezes or rhonchi. Cardiac: Heart demonstrates a regular rate and rhythm. Normal S1 and S2. Holosystolic murmur of variable intensity. Pulses: The patient has palpable radial pulses bilaterally that are equal in intensity Extremities: There was no evidence of hypoperfusion. History of fasciotomy involving the right lower extremity. Scars noted. Moderate edema. Mild left lower extremity edema trophic changes. Skin: I did not appreciate any rashes on examination today. Results & Data Vital Signs (Past 12 Hours) Vital Signs Temp Pulse Pulse Resp BP Pulse Ox O2 Del Method 02/07/23 11:27 37.0 C 114 H 16 132/66 100 Room Air 02/07/23 10:28 Nasal Cannula 02/07/23 08:26 36.7 C 58 L 16 145/68 H 90 Room Air 02/07/23 07:12 63 02/07/23 03:00 36.4 C L 65 20 131/64 99 Nasal Cannula 02/07/23 03:00 36.4 C L 65 20 131/64 99 Nasal Cannula 02/07/23 01:27 81 O2 Flow Rate 02/07/23 11:27 02/07/23 10:28 4 02/07/23 08:26 02/07/23 07:12 02/07/23 03:00 2 02/07/23 03:00 2 02/07/23 01:27 Laboratory Results Abnormal Lab Results 02/07/23 02/07/23 02/07/23 05:47 05:47 05:47 WBC 5.14 RBC 3.33 L Hgb 10.0 L Hct 31.9 L MCV 95.8 MCH 30.0 MCHC 31.3 L RDW Std Deviation 56.5 H RDW Coeff of [place] 16.0 H Plt Count 208 MPV 10.0 Sodium 142 Potassium 4.3 Chloride 104 Carbon Dioxide 31 Anion Gap 7 BUN 49 H Creatinine 3.25 H D Est Cr Clr Drug Dosing 20.7 Est GFR ( Amer) 20.0 Est GFR (Non-Af Amer) 17.3 BUN/Creatinine Ratio 15.1 Glucose 97 Calcium 8.7 C-Reactive Protein 1.03 H Prostate Specific Ag 0.077 Diagnostic Findings Echocardiogram dated 01/16/2023: Ejection fraction 30 35%. Mild LVH. Mild left atrial dilation. Mild aortic stenosis. Mild to moderate mitral regurgitation. PG Care Time/CCT Total # of Minutes Spent Total Time Spent with Patient: Total time spent is greater than 50% in coordination of care (as documented) at patient's floor/unit and/or counseling patient: Coding Level of Care Code 17495 INT INP/OBS CARE 3/75MIN Diagnoses HFrEF (heart failure with reduced ejection fraction) I50.20 Valvular heart disease I38 Cardiomyopathy I42.9 PAD (peripheral artery disease) I73.9 Coronary artery disease I25.10 Associated angina: without angina Coronary Disease-Associated Artery/Lesion type: [place] artery [place] vs. transplanted heart: [place] heart (5) Coronary artery disease Associated angina: without angina Coronary Disease-Associated Artery/Lesion type: [place] artery [place] vs. transplanted heart: [place] heart Qualified Code(s): I25.10 - Atherosclerotic heart disease of [place] coronary artery without angina pectoris
--- NOTE | 2023-02-07 17:46 | Hospitalist Progress Note ---
Date of Service February 07, 2023 Assessment & Plan (1) HFrEF (heart failure with reduced ejection fraction): Plan: P/w acute on chronic HFrEF - BNP elevated, CXR consistent with HF, Clinically with bilateral increased lower extremity edema Echo 01/2023: Moderate to severe LV dysfunction, mild , mild to moderate MR, mild FL, EF 30-35% Patient is not on ACEi/Entresto/ARB/Aldactone due to renal function No chest pain prior to admission or at admission. High-sensitivity troponin is normal -diuresing nicely with IV lasix--> comptometer operator bumped--> convert to bumex 0.5mg po qAM tomorrow as per Nephrology recommendation Had a cardiology follow-up 01/16/2023, at that time carvedilol was increased to 25 mg p.o. twice daily -low Na+ diet, daily weights, I/Os (2) Paroxysmal atrial fibrillation: Plan: developed new onset rate controlled Afib that is asymptomatic on 02/07 continue Coreg continue tele monitoring add Eliquis 5mg po bid dc ASA to avoid DAPT with Eliquis Discussed with Cardiology and patient who is agreeable to anticoagulation (3) Complicated UTI (urinary tract infection): Plan: Recently treated for 2 weeks with keflex for previous prostatitis/UTI and bacteremia (E. coli) Ur cx now here with Proteus vulgaris with CKD stage 4, dc Bactrim and start po Cipro 500mg daily x 10 day course Urology recommends outpt cystoscopy BCxs remain NGTD (4) CKD (chronic kidney disease): Plan: Appreciate Nephrology consult comptometer operator baseline 3.0 today slightly uo to 3.2 given IV lasix has non mature AVF in place dc IV lasix and convert to po bumex -Avoid nephrotoxins -renally dose meds when appropriate -follow BMP (5) Chronic respiratory failure: Plan: COPD with emphysema, on 4-6LNC at home PFTs as noted Continue inhalers Continue oxygen to maintain sat greater than 90% (6) Restrictive lung disease: Plan: Restrictive lung disease With history of pulmonary fibrosis/ILD PFTs 12/30/2022: FVC 1.74 (52% predicted), FEV1 1.39 (58% predicted), FEV1/FVC 79.88 (110% predicted), DLCO 12.78 (60% predicted). Moderate restrictive lung disease, no obstructive physiology appreciated, mild decrease in DLCO which corrects for alveolar volume. Noted, unclear underlying cause for this. 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 (7) GERD (gastroesophageal reflux disease): Plan: continue PPI (8) PAD (peripheral artery disease): Plan: with h/o RLE bypass graft and revision continue Plavix and adding Eliquis for Afib, dc ASA continue statin Plan Dispo-continued stay on tele, likely dc to home tomorrow if renal function stable Admission and Anticipated Discharge Date Admission Date: February 05, 2023 Subjective Pt feels better, less SOB, is ambulating around the room. No other complaints. As I was speaking to him, he went into rate controlled afib. Denies feeling any different, no palpitations, no CP. Discussed his care with Cardiology Physical Exam Constitutional: WD/WN, vitals as above Respiratory: normal respiratory effort; no cough and not tachypneic Auscultation: + crackles (mild at bases); no rhonchi and no wheezes Cardiovascular: Rate/Rhythm: regular rate and + irregularly irregular Heart Sounds: no murmur Extremities: + edema (2+ edema right leg,1+ left leg) Gastrointestinal (Abdomen): normal bowel sounds, soft, nontender, no hepatosplenomegaly Psychiatric: A+Ox3, euthymic affect Results & Data Results & Data Vital Signs (Past 12 Hours) Vital Signs Temp Pulse Pulse Resp BP Pulse Ox O2 Del Method 02/07/23 15:38 59 L 02/07/23 15:04 37.1 C 62 16 126/66 94 Nasal Cannula 02/07/23 11:27 37.0 C 114 H 16 132/66 100 Room Air 02/07/23 10:28 Nasal Cannula 02/07/23 08:26 36.7 C 58 L 16 145/68 H 90 Room Air 02/07/23 07:12 63 O2 Flow Rate 02/07/23 15:38 02/07/23 15:04 4 02/07/23 11:27 02/07/23 10:28 4 02/07/23 08:26 02/07/23 07:12 Laboratory Results CBC, BMP reviewed PG Care Time/CCT Total # of Minutes Spent Total Time Spent with Patient: Total time spent is greater than 50% in coordination of care (as documented) at patient's floor/unit and/or counseling patient: Coding Level of Care Code 01073 SUB INP/OBS CARE 3/50MIN Diagnoses HFrEF (heart failure with reduced ejection fraction) I50.20 Paroxysmal atrial fibrillation I48.0 Complicated UTI (urinary tract infection) N39.0 CKD (chronic kidney disease) N18.9 Chronic respiratory failure J96.10 Restrictive lung disease J98.4 GERD (gastroesophageal reflux disease) K21.9 Esophagitis presence: without esophagitis PAD (peripheral artery disease) I73.9 (7) GERD (gastroesophageal reflux disease) Esophagitis presence: without esophagitis Qualified Code(s): K21.9 - Gastro- esophageal reflux disease without esophagitis
[2023-02-07] MEDS ORDERED: CIPROFLOXACIN 500 MG TAB PO SCH (21:00)
[2023-02-07] MEDS: ATORVASTATIN 40 MG TAB PO SCH (22:34)
[2023-02-07] MEDS: APIXABAN 5 MG TABLET PO SCH (22:34)
[2023-02-08 07:15] LABS: Basophils # (auto) 0.04 K/uL (0-0.2); Basophils % (auto) 0.8 %; Eosinophils % (auto) 11.9 %; Hematocrit (blood only) 31.8 % (42.0-52.0); Hemoglobin 9.7 g/dl (14.0-18.0); Immature Granulocytes # (auto) 0.01 K/uL (0.01-0.20); Immature Granulocytes % (auto) 0.2 %; Lymphocytes # (auto) 0.54 K/uL (1.2-3.4); Lymphocytes % (auto) 10.7 %; Mean Corpuscular Hemoglobin 29.1 pg (25.0-34.0); Mean Corpuscular Hgb Conc 30.5 g/dL (32.0-36.0); Mean Corpuscular Volume 95.5 fL (80.0-100.0); Mean Platelet Volume 10.3 fL (9.4-12.4); Monocytes # (auto) 0.65 K/uL (0.11-0.59); Monocytes % (auto) 12.8 %; Neutrophils # (auto) 3.22 K/uL (1.40-6.50); Neutrophils % (auto) 63.6 %; Platelet Count 200 K/uL (130-400); RDW Coefficient of Variation 15.9 % (11.5-14.5); RDW Standard Deviation 56.1 fL (36.4-46.3); Red Blood Count 3.33 M/uL (4.70-6.10); White Blood Count 5.06 K/ul (4.8-10.8)
[2023-02-08 07:32] LABS: BUN Creatinine Ratio 14.4 (10-20); Calcium 8.5 mg/dl (8.6-10.3); Creatinine Clr Calc Pharmacy 17.3 ml/min; Est GFR (African American) 16.8 ml/min; Est GFR (Non-African American) 14.5 ml/min; Magnesium 1.9 mg/dl (1.7-2.4); Potassium 4.2 mmol/L (3.5-5.1)
[2023-02-08 07:52] LABS: Ferritin 48.6 ng/ml (8-388)
[2023-02-08] MEDS: APIXABAN 5 MG TABLET PO SCH (08:52)
[2023-02-08] MEDS: carvediloL 25 MG TAB PO SCH (08:53)
[2023-02-08] MEDS: FINASTERIDE 5 MG TAB PO SCH (08:53)
[2023-02-08] MEDS: TAMSULOSIN HCL 0.4 MG CAP PO SCH (08:53)
[2023-02-08] MEDS: PANTOprazole 40 MG TAB PO SCH (08:53)
[2023-02-08] MEDS: CITALOPRAM 20 MG TAB PO SCH (08:53)
[2023-02-08] MEDS: CLOPIDOGREL BISULFATE 75 MG TAB PO SCH (08:54)
[2023-02-08] MEDS ORDERED: BUMETANIDE 1 MG TAB PO SCH (09:00)
--- NOTE | 2023-02-08 10:32 | Electrocardiogram Report ---
Test Reason : Blood Pressure : / mmHG Vent. Rate : 079 BPM Atrial Rate : 087 BPM P-R Int : 000 ms QRS Dur : 108 ms QT Int : 384 ms P-R-T Axes : 000 009 147 degrees QTc Int : 440 ms Atrial fibrillation Minimal voltage criteria for LVH, may be normal variant Abnormal ECG When compared with ECG of 05-FEB-2023 16:12, Atrial fibrillation has replaced Sinus rhythm Confirmed by Jasper Zavala ([id number]) on 02/08/2023 10:31:59 AM Referred By: REFERRED SELF Confirmed By:Jasper Zavala
--- NOTE | 2023-02-08 11:37 | Nephrology Progress Note ---
Date of Service February 08, 2023 Assessment & Plan (1) Congestive heart failure: Plan: * Was not on diuretic as outpatient * Responded well to IV diuretic therapy. Net 3.6 L diuresis since admission * Now on Bumex 0.5 mg po daily in am * Recommend changing to Bumex 0.5 mg po daily PRN dyspnea/LE swelling at the time of discharge * Recommend 1500 mg NaCl restricted diet at the time of discharge (2) CKD (chronic kidney disease): Plan: * CKD stage G4/A3 (advanced renal impairment). Baseline Cr ~ 3.0 w/ EGFR 19 cc/min * Creatinine has risen to 3.7 following IV diuretic therapy. May need to accept Cr 3.7 w/ EGFR 15 cc/min in order to correct CHF * Electrolyte balance is acceptable. Patient has no uremic symptoms. No acute indication for HD at this time * Venous limb of AVF does not appear to have matured. Will need outpatient vascular surgery follow up * If discharge is anticipated, please have patient follow up w/ Dr. Kearns within 7-14 days (3) Anemia: Plan: * Iron saturation 17% w/ ferritin 48 * Patient likely will not tolerate oral iron due to constipation. Will prescribe IV Venofer 300 mg daily (4) Complicated UTI (urinary tract infection): Plan: * Urology has evaluated patient and will arrange outpatient follow up Admission and Anticipated Discharge Date Admission Date: February 05, 2023 Subjective Mr. De La Cruz was evaluated in his hospital room this morning. He reports brisk UO and notes that his breathing and LE swelling are subjectively improved Review of Systems Constitutional: no fever Eyes: no problem reported Ear, Nose, Mouth, Throat: no problem reported Respiratory: no dyspnea Cardiovascular: no chest pain Gastrointestinal: no abdominal pain, no nausea, no vomiting and no diarrhea/loose stools Genitourinary: no dysuria or no hematuria Physical Exam Constitutional: + frail appearing; not in distress Eyes: PERRL, conjunctivae normal, anicteric sclerae ENMT: external ear and nose normal, oropharynx normal Neck: trachea midline, no thyromegaly Respiratory: Auscultation: + rales Cardiovascular: Rate/Rhythm: regular rate and regular rhythm Extremities: + edema (trace edema) and + AV fistula (+ bruit but venous limb has not developed) Gastrointestinal (Abdomen): normal bowel sounds, soft, nontender, no hepatosplenomegaly Neurologic: Speech / Cognition: normal speech and normal cognition Results & Data Vital Signs (Past 12 Hours) Vital Signs Temp Pulse Pulse Resp BP Pulse Ox O2 Del Method 02/08/23 11:12 37.0 C 67 18 130/64 100 Nasal Cannula 02/08/23 08:00 37.0 C 66 20 120/63 92 Nasal Cannula 02/08/23 07:59 56 L 02/08/23 04:00 36.3 C L 62 18 126/71 Room Air 02/08/23 01:00 66 02/08/23 01:00 Nasal Cannula O2 Flow Rate 02/08/23 11:12 02/08/23 08:00 02/08/23 07:59 02/08/23 04:00 02/08/23 01:00 02/08/23 01:00 4 Laboratory Results Laboratory Tests 02/08/23 02/08/23 06:10 06:10 WBC 5.06 Hgb 9.7 L Hct 31.8 L Plt Count 200 Sodium 140 Potassium 4.2 Chloride 103 Carbon Dioxide 30 BUN 54 H Creatinine 3.75 H D Glucose 93 PG Care Time/CCT Total # of Minutes Spent Total Time Spent with Patient: Total time spent is greater than 50% in coordination of care (as documented) at patient's floor/unit and/or counseling patient: Coding Level of Care Code 52457 SUB INP/OBS CARE 3/50MIN Diagnoses Congestive heart failure I50.9 CKD (chronic kidney disease) N18.9 Anemia N18.4; D63.1 Anemia type: due to chronic kidney disease Chronic kidney disease stage: stage 4 (severe) Complicated UTI (urinary tract infection) N39.0 (3) Anemia Anemia type: due to chronic kidney disease Chronic kidney disease stage: stage 4 (severe) Qualified Code(s): N18.4 - Chronic kidney disease, stage 4 (severe); D63.1 - Anemia in chronic kidney disease
[2023-02-08] MEDS ORDERED: IRON SUCROSE 300 MG in SODIUM CHLORIDE 0.9% 250 ML IV SCH (11:45)
--- NOTE | 2023-02-08 15:58 | Discharge Summary ---
Date of Service February 08, 2023 Admission HPI Per Admitting Provider Manuel is a 77-year-old male with a past medical history of heart failure with reduced ejection fraction, CKD, cardiomyopathy, ILD, COPD with emphysema on chronic 4 to 6 L oxygen, MAEGAN, B-cell lymphoma who was recently admitted from 01/08/2023/02/27 for an episode of complicated UTI who presents with worsening shortness of breath, hypoxia on exertion and increased hypoxia at rest, and evidence of acute on chronic heart failure recently discharged after episode of bacteremia. On 4-6L chronic O2 requirement. Requirements increased at home and cannot maintain >90%. Patient increasing shortness of breath over the last several day joints seem to hurt, neck, knees, legs. Seems genearlly fatigued and achy with nowhere in particular. No redness or joint pain to palpation +bilatearl leg swelling L>R, L is often more swollen than the R due to a prior injury but both sides are worsened No chest pain or chest pressure . Initially denies salty food/salt loads, some discrepancy between patient and family. Says he is having a very strict diet, but does note Some ritz crackers and some sea salt use, per daughter strict diet 2-3 weeks. Minimal sugar. Speltz flower used to try to be held Sleeps in a recliner, often does not sleep flat so not sure if he has orthopnea. He he has no leg pain or calf pain No fever, chills, sweats. No lightheadedness or dizziness. Has a dry cough, no sputum production Medical History: Reviewed Medications: Reviewed Surgical History: Reviewed Family history: Reviewed Allergies: Reviewed Social History: Former cigarette, current chew use. Cessation recommended. Code Status:. DNR/DNI confirmed with Principal Diagnosis Acute on chronic HFrEF Acute on chronic respiratory failure with hypoxia New onset atrial fibrillation Complicated UTI Discharge Exam Constitutional WD/WN, vitals as above Eyes + scleral abnormality (OD with significant subconj hemorrhage), PERRL and EOM intact bilaterally; no anisocoria and no nystagmus Respiratory normal respiratory effort; no cough and not tachypneic Auscultation: + crackles (mild at bases); no rhonchi and no wheezes Cardiovascular Rate/Rhythm: regular rate and regular rhythm Heart Sounds: no murmur Extremities: + edema (2+ edema right leg,trace+ left leg) Gastrointestinal (Abdomen) normal bowel sounds, soft, nontender, no hepatosplenomegaly Psychiatric A+Ox3, euthymic affect Discharge Data Allergies Allergy/AdvReac Type Severity Reaction Status Date / Time No Known Allergies Allergy Verified 02/05/23 20:23 Consultations 02/05/23 17:22 ED Decision to Admit Stat 02/06/23 19:49 Consult Nephrology Routine 02/06/23 19:50 Consult Cardiology Routine 02/06/23 20:17 Consult Urology Routine 02/08/23 15:55 [facility] CHF Program Referral Routine Ordered Studies 02/05/23 16:33 US venous doppler LE Stat Hospital Course (1) HFrEF (heart failure with reduced ejection fraction): P/w acute on chronic HFrEF - BNP elevated, CXR consistent with HF, Clinically with bilateral increased lower extremity edema Echo 01/2023: Moderate to severe LV dysfunction, mild , mild to moderate MR, mild MI, EF 30-35% Patient is not on ACEi/Entresto/ARB/Aldactone due to renal function being poor No chest pain prior to admission or at admission. High-sensitivity troponin is normal -diuresed nicely with IV lasix--> lens cementer bumped--> converted to bumex 0.5mg po qAM prn leg swelling or weight gain as per Nephrology recommendation-have to accpet increased lens cementer to keep volume status in check Had a cardiology follow-up 01/16/2023, at that time carvedilol was increased to 25 mg p.o. twice daily -low Na+ diet, daily weights, I/Os on discharge -f/u with CHF clinic, Cardiology, Nephrology after discharge (2) Paroxysmal atrial fibrillation: developed new onset rate controlled Afib that is asymptomatic on 02/07-lasted ab out 10 hours and then converted to NSR continue Coreg added Eliquis 5mg po bid dc ASA to avoid DAPT with Eliquis Discussed with Cardiology and patient who is agreeable to anticoagulation f/u Cardiology as outpt (3) Complicated UTI (urinary tract infection): Recently treated for 2 weeks with keflex for previous prostatitis/UTI and bacteremia (E. coli) Ur cx now here with Proteus vulgaris with CKD stage 4, dc Bactrim and started po Cipro 500mg daily x 10 day course Urology recommends outpt cystoscopy planned for next week BCxs remain NGTD (4) CKD (chronic kidney disease): Appreciate Nephrology consult lens cementer baseline 3.0 today slightly uo to 3.7 after IV lasix has AVF in place that has not matured-needs f/u with Vascular Surgery as outpt continue prn po bumex on discharge -Avoid nephrotoxins -renally dose meds when appropriate -follow BMP with Nephro f/u Nephro in 1-2 weeks after discharge (5) Chronic respiratory failure: acute on chronic resp failure with hypoxia--Had increased work of breathing on admission, now improved COPD with emphysema, on 4-6LNC at home PFTs as noted Continue inhalers Continue oxygen to maintain sat greater than 90% (6) Restrictive lung disease: Restrictive lung disease With history of pulmonary fibrosis/ILD PFTs 12/30/2022: FVC 1.74 (52% predicted), FEV1 1.39 (58% predicted), FEV1/FVC 79.88 (110% predicted), DLCO 12.78 (60% predicted). Moderate restrictive lung disease, no obstructive physiology appreciated, mild decrease in DLCO which corrects for alveolar volume. Noted, unclear underlying cause for this. 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 (7) GERD (gastroesophageal reflux disease): continue PPI (8) PAD (peripheral artery disease): with h/o RLE bypass graft and revision continue Plavix and added Eliquis for Afib, dc ASA to avoid triple therapy continue statin Plan Dispo-dc to home today, discussed care with Cardiology Total Time Total Time Spent Total Time Spent (In Minutes): 40 min Discharge Plan Discharge Items Patient Disposition: Home - Self-Care Reason For Visit: AOC CHR, HYPOXIA Discharge Diagnosis: CHF, Acute on chronic respiratory failure with hypoxia UTI Atrial fibrillation Condition on Discharge: Fair Activity: Resume your previous activity Non-emergency contact: Primary Care Provider, Crib Tender and Bake Room Worker Call non-emergency contact if: you have any medication questions and your symptoms worsen Follow-up/Referrals: Reanna Kearns MD [Physician] - (Follow up within 1-2 weeks-please call to schedule your own appointment) Kyree Davis MD [Physician] - (Please follow up within 2 weeks.) Vinod Pang [Primary Care Provider] - (Follow up within 1-2 weeks.) Agustín Henley MD [Physician] - 02/15/23 2:30 pm Diet: Other - See Diet Comment Fluids: 1500ml (6 cups) Diet Comment: Low sodium < 1500mg daily Addtl Attending Provider Instructions: You were admitted with excessive fluid from heart failure. You were given diuretics through the IV and had improvement. Please take the water pill called Bumex (bumetanide) 0.5mg once daily as needed for leg swelling, weight gain > 2 lbs from one day to the next, or for increasing shortness of breath. You should follow up with the Crib Tender and with the Bake Room Worker within 1-2 weeks. You were also found to have another UTI with a different bacteria from the last one. Please continue taking the Cipro 500mg once daily for 9 more days and follow up with the Urologist as scheduled next week for the cystoscopy. You were started on a medication called Flomax (tamsulosin) for enlarged prostate as per Urology's recommendations. While you were here, your heart went into an abnormal heart rhythm called atrial fibrillation. Because of this, you were started on a blood thinner called Eliquis to help prevent you from having a stroke. If you have any problems with bleeding, please let your doctor know right away. If you have a fall and hit your head, you should also get checked out at the hospital as you could develop bleeding inside your head. Call your Primary Care doctor if any of the following symptoms or problems start or get worse: * Shortness of breath or difficulty breathing * Wake up at night short of breath * Chest pain * Cough * Swelling of your hands, feet, or legs * More fatigued or tired with your normal activity * Palpitations - sudden fast heart beats WEIGHT * Weigh yourself every morning after using the bathroom. * Use the same scale. * Wear the same amount of clothing. * Write your weight down on a chart. * Call your Primary Care doctor if you gain more than 2-3 pounds in 1-2 days. MEDICATIONS * Use this discharge instruction sheet for medication instructions. * Take your medications at the time your doctor ordered. * Do not skip a dose of your medicines. * If you miss a dose of medicine, take it as soon as possible, but DO NOT DOUBLE A DOSE. * Read your medicine information when you get home. * Know all of the side effects of your medicine. If in doubt, ask your pharmacist * Call your Primary Care doctor's office if you have any side effects. * Be sure all of your doctors know what medicine and herbs you take (including cold, flu, and herbal medicine). Take the following with you to your follow-up doctor appointments: * Weight Chart * Medication List * List of questions Do not drink excessive alcohol, beer or wine. Addtl Rn Obgyn Provider Instructions: You are scheduled for a cystoscopy with Dr. Henley in the Urology office on 02/15/23 at 2:30PM. Please call the urology office at [phone] with any questions, concerns or need to reschedule appointments for any reason. Pending Studies at Discharge: Yes (Blood cultures-no growth to date) Stand-Alone Forms: My [employer], Smoking Cessation Medications and DC Order Prescriptions: New ciprofloxacin HCl 500 mg Tablet 500 mg PO QPM Qty: 9 0RF tamsulosin 0.4 mg Capsule 0.4 mg PO QAM Qty: 30 0RF Eliquis 5 mg Tablet 5 mg PO BID Qty: 60 0RF bumetanide 0.5 mg tablet 0.5 mg PO DAILY PRN (Reason: weight gain or leg swelling) Qty: 30 0RF Continued atorvastatin [Lipitor] 80 mg Tablet 80 mg PO HS Qty: 0 Procrit 20,000 unit/mL solution 20,000 unit subcut MONTHLY Qty: 1 11RF Rx Instructions: Okay to hold for Hbg greater than 11. Approved till 02/09/2023. Approved as buy and bill. clopidogrel 75 mg tablet 75 mg PO DAILY albuterol sulfate 90 mcg/actuation HFA aerosol inhaler 2 puff inhalation Q6H PRN (Reason: Shortness Of Breath Or Wheezing) Qty: 18 3RF (DME) Portable Oxygen Misc See Rx Instructions .MEDSUPPLY Rx Instructions: Oxygen 3 liters continuous via nasal cannula on exertion with portable concentrator. ZENOBIA 99 Qpm and on exertion. carvedilol 25 mg tablet 25 mg PO BID Qty: 180 3RF Rx Instructions: must administer with a meal/food finasteride 5 mg tablet 5 mg PO QAM citalopram 20 mg tablet 20 mg PO DAILY pantoprazole 40 mg Tablet,Delayed Release (Dr/Ec) 40 mg PO DAILY Qty: 30 0RF Discontinued aspirin 81 mg Tablet,Delayed Release (Dr/Ec) 81 mg PO QPM Discharge Orders: Discharge Order- CHF (Routine); Ordered 02/08/23 Ordered By: Roslyn Wolfe Admission Data Admit Date/Time: 02/05/23 17:47 Attending Provider: Roslyn Wolfe Admit Provider: Vasiliy Chatman Primary Care Provider: Vinod Pang Other Providers: Vasiliy Chatman ; Fermín Quick ; Kyree Davis ; Jasper Cox ; Marcel Arenas ; Kyree Bautista ; Anu Peterson ; Fermín Jewell ; Debra Wagoner ; Radha Elaine ; Sergei Carr ; Mirta Louis ; Tracy Cobb ; Hari Tong ; Agustín Henley ; Litzy Baez Coding Level of Care Code 83237 INP/OBS DISCH >30 MIN Diagnoses HFrEF (heart failure with reduced ejection fraction) I50.20 Paroxysmal atrial fibrillation I48.0 Complicated UTI (urinary tract infection) N39.0 CKD (chronic kidney disease) N18.9 Chronic respiratory failure J96.10 Restrictive lung disease J98.4 GERD (gastroesophageal reflux disease) K21.9 Esophagitis presence: without esophagitis PAD (peripheral artery disease) I73.9
--- NOTE | 2023-02-08 16:04 | Cardiology Progress Note ---
Date of Service February 08, 2023 Assessment & Plan (1) HFrEF (heart failure with reduced ejection fraction): (2) Valvular heart disease: (3) Cardiomyopathy: (4) PAD (peripheral artery disease): (5) Coronary artery disease: Plan 1. Decompensated systolic heart failure: much improved. He affected a good diuresis. Renal function did suffer slightly. In attempt to prevent further decline in renal function would be reasonable to use p.r.n. diuretics as recommended by his transportation analyst. He does not have a history of decompensation leading up to this event. We discussed monitoring his weight and edema at home. I think he would benefit from an evaluation in our Heart failure Clinic in attempt to prevent additional admission. I will make these arrangements. 2. Cardiomyopathy: Unclear etiology. Likely ischemic given his known peripheral and coronary disease. However, no evaluation has been performed due to his renal dysfunction. He was on dialysis previously, and repeat catheterization would likely result in significant renal injury. He has been maintained on beta-blockade. Other agents appear relatively contraindicated. 3. Valvular heart disease: He has an element of mitral regurgitation and aortic stenosis. Not causing symptoms. 4. coronary artery disease: He has a history of a very remote intervention to an unspecified artery. It is very likely has significant coronary disease based on his other risk factors. No symptoms of angina. Again, continued on beta- blockade. Also on high-dose atorvastatin and aspirin. 5. Bradycardia: No symptoms. No indication for permanent pacing. 6. Atrial fibrillation: He developed atrial fibrillation yesterday evening. He spontaneously converted several hours later. No symptoms. Adequate rate control likely due to his baseline conduction disease. Also on carvedilol. I think at this point the only pertinent issue is systemic anticoagulation. Eliquis has been started. Aspirin has been stopped. He can continue Plavix. Admission and Anticipated Discharge Date Admission Date: February 05, 2023 Subjective this afternoon the patient claimed he feeling well. He reported ambulating around the [place] last night and again this morning. He states that while not quite back to his baseline this is much improved since admission. Lower extremity edema also improved. He did not report dizziness or lightheadedness. No sense of palpitation yesterday. Review of Systems Review of Systems: Per HPI Physical Exam Physical Exam: The patient is alert and oriented. Mood and affect appeared normal. He answered all questions appropriately. HEENT: Pupils are equal and reactive to light and accommodation. Extraocular movements are intact. The sclerae are anicteric. Neuro: Cranial nerves intact Chest: Left pectoral infusion port. Lungs: normal respiratory effort Cardiac: Heart demonstrates a regular rate and rhythm. Normal S1 and S2. Holosystolic murmur of variable intensity. Pulses: The patient has palpable radial pulses bilaterally that are equal in intensity Extremities: There was no evidence of hypoperfusion. History of fasciotomy involving the right lower extremity. Scars noted. minimal edema Mild left lower extremity edema trophic changes. Skin: I did not appreciate any rashes on examination today. Results & Data Vital Signs (Past 12 Hours) Vital Signs Temp Pulse Pulse Resp BP Pulse Ox O2 Del Method 02/08/23 14:24 36.8 C 66 20 146/75 H 96 Nasal Cannula 02/08/23 11:12 37.0 C 67 18 130/64 100 Nasal Cannula 02/08/23 08:00 37.0 C 66 20 120/63 92 Nasal Cannula 02/08/23 07:59 56 L Laboratory Results Abnormal Lab Results 02/08/23 02/08/23 02/08/23 06:10 06:10 06:10 WBC 5.06 RBC 3.33 L Hgb 9.7 L Hct 31.8 L MCV 95.5 MCH 29.1 MCHC 30.5 L RDW Std Deviation 56.1 H RDW Coeff of [place] 15.9 H Plt Count 200 MPV 10.3 Immature Gran % (Auto) 0.2 Neut % (Auto) 63.6 Lymph % (Auto) 10.7 [place] % (Auto) 12.8 Eos % (Auto) 11.9 Baso % (Auto) 0.8 Neut # (Auto) 3.22 Lymph # (Auto) 0.54 L [place] # (Auto) 0.65 H Eos # (Auto) 0.60 H Baso # (Auto) 0.04 Immature Gran # (Auto) 0.01 Sodium 140 Potassium 4.2 Chloride 103 Carbon Dioxide 30 Anion Gap 7 BUN 54 H Creatinine 3.75 H D Est Cr Clr Drug Dosing 17.3 Est GFR ( Amer) 16.8 Est GFR (Non-Af Amer) 14.5 BUN/Creatinine Ratio 14.4 Glucose 93 Calcium 8.5 L Magnesium 1.9 Iron 47 TIBC 270 Unsaturated IBC 223 Transferrin % Sat 17 L Ferritin 48.6 Vitamin B12 449 Folate 10.60 PG Care Time/CCT Total # of Minutes Spent Total Time Spent with Patient: Total time spent is greater than 50% in coordination of care (as documented) at patient's floor/unit and/or counseling patient: Coding Level of Care Code 39552 SUB INP/OBS CARE 2/35MIN Diagnoses HFrEF (heart failure with reduced ejection fraction) I50.20 Valvular heart disease I38 Cardiomyopathy I42.9 PAD (peripheral artery disease) I73.9 Coronary artery disease I25.10 Coronary Disease-Associated Artery/Lesion type: [place] artery [place] vs. transplanted heart: [place] heart Associated angina: without angina (5) Coronary artery disease Coronary Disease-Associated Artery/Lesion type: [place] artery [place] vs. transplanted heart: [place] heart Associated angina: without angina Qualified Code(s): I25.10 - Atherosclerotic heart disease of [place] coronary artery without angina pectoris
== END 2023-02-08 16:37 | disposition home or self-care (01) | DRG 291 ==
LOC: ED 15:52 → SUATTDRO 17:47 → 2N 17:47

== ENCOUNTER 2023-08-19 17:40 | Observation (INO) ==
[2023-08-19 18:22] LABS: Basophils # (auto) 0.04 K/uL (0.00-0.20); Basophils % (auto) 0.4 %; Eosinophils # (auto) 0.41 K/uL (0.00-0.50); Eosinophils % (auto) 4.4 %; Hematocrit (blood only) 37.4 % (42.0-52.0); Hemoglobin 11.6 g/dl (14.0-18.0); Immature Granulocytes # (auto) 0.05 K/uL (0.01-0.20); Immature Granulocytes % (auto) 0.5 %; Lymphocytes # (auto) 0.59 K/uL (1.20-3.40); Lymphocytes % (auto) 6.4 %; Monocytes # (auto) 1.03 K/uL (0.11-0.59); Monocytes % (auto) 11.2 %; Neutrophils % (auto) 77.1 %; Platelet Count 299 K/uL (130-400); RDW Coefficient of Variation 17.7 % (11.5-14.5); RDW Standard Deviation 65.5 fL (36.4-46.3); Red Blood Count 3.74 M/uL (4.70-6.10); White Blood Count 9.22 K/ul (4.8-10.8)
[2023-08-19 18:36] LABS: Alanine Aminotransferase 14 U/L (7-52); Albumin Globulin Ratio 1.2 (0.9-2); Albumin Level 3.7 gm/dl (3.4-5.0); Alkaline Phosphatase 49 U/L (34-104); Anion Gap 6 (3-11); Aspartate Aminotransferase 16 U/L (13-39); BUN Creatinine Ratio 16.7 (10-20); Bilirubin,Total 0.4 mg/dl (0.2-1.0); Blood Urea Nitrogen 56 mg/dl (6-23); Calcium 9.8 mg/dl (8.6-10.3); Carbon Dioxide 28 mmol/L (21-32); Chloride 106 mmol/L (98-107); Est GFR (African American) 19.2 ml/min; Est GFR (Non-African American) 16.6 ml/min; Glucose 101 mg/dl (70-99(Fasting)); Potassium 4.5 mmol/L (3.5-5.1); Sodium 140 mmol/L (136-145); Total Protein 6.7 gm/dl (6.0-8.3)
[2023-08-19 19:15] LABS: Adenovirus PCR Not Detected (NotDetected); Bordetella parapertussis PCR Not Detected (NotDetected); Bordetella pertussis PCR Not Detected (NotDetected); Chlamydia pneumoniae PCR Not Detected (NotDetected); Coronavirus 229E PCR Not Detected (NotDetected); Coronavirus CoV-2 (COVID19)PCR Not Detected (NotDetected); Coronavirus HKU1 PCR Not Detected (NotDetected); Coronavirus NL63 PCR Not Detected (NotDetected); Coronavirus OC43PCR Not Detected (NotDetected); Human Metapneumovirus PCR Not Detected (NotDetected); Influenza A PCR Not Detected (NotDetected); Influenza B PCR Not Detected (NotDetected); Mycoplasma pneumoniae PCR Not Detected (NotDetected); Parainfluenza Virus 1 PCR Not Detected (NotDetected); Parainfluenza Virus 2 PCR Not Detected (NotDetected); Parainfluenza Virus 3 PCR Not Detected (NotDetected); Parainfluenza Virus 4 PCR Not Detected (NotDetected); Respiratory Syncytial VirusPCR Not Detected (NotDetected)
[2023-08-19 19:20] LABS: Rhinovirus/Enterovirus PCR DETECTED (NotDetected)
[2023-08-19 19:35] LABS: Troponin I High Sensitivity 17.5 pg/ml (0-20)
--- NOTE | 2023-08-19 20:09 | XRay Report ---
XR chest 1V portable HISTORY: Dyspnea COMPARISON: Chest 02/07/2023. FINDINGS: No pneumothorax. No pleural effusions. The cardiac silhouette is mildly enlarged. There is progressive interstitial/vascular thickening consistent with mild pulmonary edema. A left jugular Por t-A-Cath is unchanged in position and likely terminates within the proximal left brachiocephalic vein . No acute fractures. IMPRESSION: Progressive interstitial/vascular thickening consistent with mild pulmonary edema. ACT 112: Negative or not required by law. Electronically signed by: Parish Zelaya M.D. 08/19/2023 8:08 PM
[2023-08-19] MEDS ORDERED: ACETAMINOPHEN 325 MG TAB PO STA (21:24)
[2023-08-19] MEDS ORDERED: ALBUT/IPRATROP 3MG/0.5MG NEB 3 ML VIAL NEB STA (22:16)
[2023-08-19] MEDS ORDERED: FUROSEMIDE 40 MG/4 ML VIAL IV ONE (23:50)
[2023-08-19] MEDS ORDERED: methylPREDNISolone 125 MG/2 ML VIAL IV STA (23:51)
--- NOTE | 2023-08-19 23:58 | History & Physical Report ---
Date of Service August 19, 2023 Assessment & Plan (1) Enterovirus infection: (2) CHF exacerbation: (3) Acute on chronic respiratory failure with hypoxia: (4) COPD exacerbation: (5) URI (upper respiratory infection): (6) Paroxysmal atrial fibrillation: (7) Cardiomyopathy: (8) B-cell lymphoma: (9) HTN (hypertension): (10) Coronary artery disease: (11) Chronic anticoagulation: Plan Acute on chronic respiratory failure with hypoxia/CHF exacerbation/COPD exacerbation/URI/enterovirus infection- Nasal cannula oxygen, titrate to keep pulse ox 92-94% Patient is on portable oxygen at home, but unknown amount Presently 96% on 6 L nasal cannula, taper downward as clinical condition improves CHF exacerbation/CAD/hypertension/mild aortic stenosis- The patient will be admitted to telemetry for serial cardiac enzymes, serial EKG's, cardiac rhythm monitoring Most recent echocardiogram on 07/23/2023 with ejection fraction 40-45% Give furosemide 40 mg IV x1 now, and then every morning Continue apixaban, carvedilol, clopidogrel. Follow serial CBC with differential, renal function panel and magnesium levels COPD exacerbation/URI/enterovirus infection- Duonebs every 4 hours while awake and every 2 hours when necessary. Ceftriaxone 2 g IV daily Azithromycin 500 mg IV daily Methylprednisolone 60 mg IV now, then 40 mg IV every 12 hours BioFire positive for enterovirus/rhinovirus CKD stage IV- Creatinine 3.36 on admission, with range 2.7-3.6 Follow serial laboratories while being actively diuresed History of Present Illness Chief Complaint: The patient presents to the emergency department with primary complaint of shortness of breath over the past few days. He had been undergoing treatment for a respiratory infection with a course of 10 days of antibiotics, which had somewhat improved breathing but has persisted and worsened since completion Primary Care Provider: Vinod Pang The patient is a 78-year-old male with a past medical history including moderate mitral regurgitation, mild aortic stenosis, paroxysmal atrial fibrillation, CHF, CKD stage IV, chronic respiratory failure, restrictive lung disease, depression, COPD, PAD, MAEGAN, CAD. The patient presents to the emergency department with history of having completed a 10-day course of antibiotics for respiratory infection, with progressive shortness of breath and lower extremity edema. Allergies Allergy/AdvReac Type Severity Reaction Status Date / Time No Known Allergies Allergy Verified 08/19/23 22:34 Home Medications Medication Instructions Recorded Confirmed Type atorvastatin 80 mg tablet (Lipitor) 80 mg PO HS #0 tabs 12/21/14 08/19/23 History finasteride 5 mg tablet 5 mg PO QAM 12/04/18 08/19/23 History clopidogrel 75 mg tablet 75 mg PO DAILY 09/15/21 08/19/23 History carvedilol 25 mg tablet 25 mg PO BID #180 tabs 01/16/23 08/19/23 Rx epoetin neptali 40,000 unit/mL 40,000 unit subcut .COMPLEX #1 mL 03/20/23 08/19/23 Rx injection solution (Procrit) apixaban 5 mg tablet (Eliquis) 5 mg PO BID #180 tabs 04/20/23 08/19/23 Rx Portable Oxygen 06/05/23 07/27/23 History bumetanide 0.5 mg tablet 0.5 mg PO DAILY PRN Edema or 07/11/23 08/19/23 Rx weight increase of 2 lbs. in 1 day #90 tabs citalopram 20 mg tablet 30 mg PO DAILY 07/27/23 08/19/23 History oxycodone 5 mg capsule 5 mg PO BID PRN Pain 07/27/23 08/19/23 History Past Med/Surg History Medical History Acute kidney injury Acute kidney injury Acute respiratory failure with hypoxia [id number] kidney injury Anorexia ARF (acute renal failure) B-cell lymphoma Chronic back pain Coronary artery disease COVID-19 Deep vein thrombosis Deep vein thrombosis Depression Gastroenteritis due to 2018-[place] Hearing deficit Hemodialysis patient Hyperkalemia Hypersensitivity pneumonitis Left leg DVT Liver mass Metabolic acidosis Metabolic acidosis On anticoagulant therapy Osteoarthritis Paroxysmal atrial fibrillation Peripheral neuropathy Peripheral vascular disease Pneumonia Pneumonia Pneumonia due to COVID-19 virus Scrotal swelling Secondary hyperparathyroidism of renal origin Severe protein-calorie malnutrition Situational depression Sleep apnea UTI (urinary tract infection) Vitamin D deficiency Weight loss Surgical History H/O vascular surgery History of cardiac cath History of colonoscopy History of esophagogastroduodenoscopy (EGD) History of heart artery stent History of lumbar discectomy History of umbilical hernia repair S/P femoral-femoral bypass surgery Family History Mother FHx: lung cancer FHx: uterine cancer Other Allergy Cancer Diabetes Heart disease Lung cancer Lung disease Denies family history of Tuberculosis Emphysema of lung Asthma Social History Smoking Status: Never smoker Tobacco Type: Cigarettes packs per day: 1; Second Hand Exposure: No; Do You Dip or Chew Tobacco: No; Hx Alcohol Use: Yes Alcohol type: beer Hx Substance Use: No Preferred Language: Croatian Communication Ability: Effective Ob Tech Required: No Beliefs That Will Affect Care: None Current Living Situation: Spouse Feels Safe at Home: Yes Assistive Devices: Oxygen - Continuous Review of Systems Review of Systems: The patient denies chest pain, palpitations, sore throat, fevers, chills, sweats, nausea, vomiting, diarrhea , constipation, abdominal pain, pelvic pain, blood in urine or stool, dysuria, urinary frequency or urgency, lightheadedness, dizziness, headache, loss of consciousness, rash, abnormal bruising or bleeding, focal weakness, numbness or tingling in arms or legs, generalized arthralgias or myalgias, back or neck pain, or night sweats. The review of systems is otherwise negative other than for that already noted above, and at least 10 systems have been reviewed. Physical Exam Physical Exam: The patient is awake, alert and oriented 3, well developed and well nourished, normocephalic and atraumatic, lying in bed and in no acute distress. HEENT--PERRL, EOMI, mucous membranes and oropharynx normal Neck--supple. No JVD. No bruits. Thyroid normal, trachea midline, no adenopathy. Heart--normal S1 and S2. No murmurs, rubs or gallops. Lungs--coarse breath sounds bilaterally. No respiratory distress, no accessory muscle use. Abdomen--normal bowel sounds and soft. Nontender. Nondistended Extremities--no cyanosis or clubbing. 1+ bilateral pretibial pitting edema. Dermatologic--normal skin turgor, normal color, no abnormal lymph nodes, no rash. Neurologic--cranial nerves II through XII grossly intact. Rheumatologic--limited exam Psychiatric--normal affect. Results & Data Results & Data Vital Signs (Past 12 Hours) Vital Signs Temp Pulse Pulse Resp BP BP Pulse Ox 08/19/23 22:21 105 H 18 96 08/19/23 22:14 38.0 C H 93 H 135/82 96 08/19/23 21:58 77 08/19/23 21:23 37.7 C H 76 20 173/73 H 98 08/19/23 17:52 94 08/19/23 17:52 36.6 C 74 18 164/68 H 94 O2 Del Method O2 Flow Rate 08/19/23 22:21 Nasal Cannula 6 08/19/23 22:14 Room Air 08/19/23 21:58 08/19/23 21:23 Room Air 08/19/23 17:52 Nasal Cannula 08/19/23 17:52 Nasal Cannula 6 Laboratory Results Laboratory Results WBC 9.22 K/ul (4.8-10.8) 08/19/23 18:06 RBC 3.74 M/uL (4.70-6.10) L 08/19/23 18:06 Hgb 11.6 g/dl (14.0-18.0) L 08/19/23 18:06 Hct 37.4 % (42.0-52.0) L 08/19/23 18:06 MCV 100.0 fL (80.0-100.0) 08/19/23 18:06 MCH 31.0 pg (25.0-34.0) 08/19/23 18:06 MCHC 31.0 g/dL (32.0-36.0) L 08/19/23 18:06 RDW Std Deviation 65.5 fL (36.4-46.3) H 08/19/23 18:06 RDW Coeff of [place] 17.7 % (11.5-14.5) H 08/19/23 18:06 Plt Count 299 K/uL (130-400) 08/19/23 18:06 MPV 9.0 fL (9.4-12.4) L 08/19/23 18:06 Immature Gran % (Auto) 0.5 % 08/19/23 18:06 Neut % (Auto) 77.1 % 08/19/23 18:06 Lymph % (Auto) 6.4 % 08/19/23 18:06 [place] % (Auto) 11.2 % 08/19/23 18:06 Eos % (Auto) 4.4 % 08/19/23 18:06 Baso % (Auto) 0.4 % 08/19/23 18:06 Neut # (Auto) 7.10 K/uL (1.40-6.50) H 08/19/23 18:06 Lymph # (Auto) 0.59 K/uL (1.20-3.40) L 08/19/23 18:06 [place] # (Auto) 1.03 K/uL (0.11-0.59) H 08/19/23 18:06 Eos # (Auto) 0.41 K/uL (0.00-0.50) 08/19/23 18:06 Baso # (Auto) 0.04 K/uL (0.00-0.20) 08/19/23 18:06 Immature Gran # (Auto) 0.05 K/uL (0.01-0.20) 08/19/23 18:06 Sodium 140 mmol/L (136-145) 08/19/23 18:06 Potassium 4.5 mmol/L (3.5-5.1) 08/19/23 18:06 Chloride 106 mmol/L (98-107) 08/19/23 18:06 Carbon Dioxide 28 mmol/L (21-32) 08/19/23 18:06 Anion Gap 6 (3-11) 08/19/23 18:06 BUN 56 mg/dl (6-23) H 08/19/23 18:06 Creatinine 3.36 mg/dl (0.6-1.4) H 08/19/23 18:06 Est Cr Clr Drug Dosing Not Reportable 08/19/23 18:06 Est GFR ( Amer) 19.2 ml/min 08/19/23 18:06 Est GFR (Non-Af Amer) 16.6 ml/min 08/19/23 18:06 BUN/Creatinine Ratio 16.7 (10-20) 08/19/23 18:06 Glucose 101 mg/dl (70-99(Fasting)) H 08/19/23 18:06 Calcium 9.8 mg/dl (8.6-10.3) 08/19/23 18:06 Total Bilirubin 0.4 mg/dl (0.2-1.0) 08/19/23 18:06 AST 16 U/L (13-39) 08/19/23 18:06 ALT 14 U/L (7-52) 08/19/23 18:06 Alkaline Phosphatase 49 U/L (34-104) 08/19/23 18:06 Troponin I High Sens 17.5 pg/ml (0-20) 08/19/23 18:06 B-Natriuretic Peptide 573 pg/ml (0-100) H 08/19/23 18:07 Total Protein 6.7 gm/dl (6.0-8.3) 08/19/23 18:06 Albumin 3.7 gm/dl (3.4-5.0) 08/19/23 18:06 Globulin 3.0 gm/dl (2.5-4.0) 08/19/23 18:06 Albumin/Globulin Ratio 1.2 (0.9-2) 08/19/23 18:06 Adenovirus (PCR) Not Detected (NotDetected) 08/19/23 18:07 B. pertussis DNA (PCR) Not Detected (NotDetected) 08/19/23 18:07 B.parapertussis DNA PCR Not Detected (NotDetected) 08/19/23 18:07 C. pneumoniae DNA (PCR) Not Detected (NotDetected) 08/19/23 18:07 Coronavirus OC43 (PCR) Not Detected (NotDetected) 08/19/23 18:07 Coronavirus HKU1 (PCR) Not Detected (NotDetected) 08/19/23 18:07 Coronavirus 229E (PCR) Not Detected (NotDetected) 08/19/23 18:07 SARS-CoV-2 (PCR) Not Detected (NotDetected) 08/19/23 18:07 Coronavirus NL63 (PCR) Not Detected (NotDetected) 08/19/23 18:07 Human Metapneumovir PCR Not Detected (NotDetected) 08/19/23 18:07 Influenza Type A (PCR) Not Detected (NotDetected) 08/19/23 18:07 Influenza Type B (PCR) Not Detected (NotDetected) 08/19/23 18:07 M. pneumoniae (PCR) Not Detected (NotDetected) 08/19/23 18:07 Parainfluenza 1 (PCR) Not Detected (NotDetected) 08/19/23 18:07 Parainfluenza 2 (PCR) Not Detected (NotDetected) 08/19/23 18:07 Parainfluenza 3 (PCR) Not Detected (NotDetected) 08/19/23 18:07 Parainfluenza 4 (PCR) Not Detected (NotDetected) 08/19/23 18:07 RSV (PCR) Not Detected (NotDetected) 08/19/23 18:07 Entero/Rhino (PCR) DETECTED (NotDetected) A* 08/19/23 18:07 Impressions Chest X-Ray 08/19/23 18:04 XR chest 1V portable HISTORY: Dyspnea COMPARISON: Chest 02/07/2023. FINDINGS: No pneumothorax. No pleural effusions. The cardiac silhouette is mildly enlarged. There is progressive interstitial/vascular thickening consistent with mild pulmonary edema. A left jugular Port-A-Cath is unchanged in position and likely terminates within the proximal left brachiocephalic vein. No acute fractures. IMPRESSION: Progressive interstitial/vascular thickening consistent with mild pulmonary edema. ACT 112: Negative or not required by law. Electronically signed by: Parish Zelaya M.D. 08/19/2023 8:08 PM Code Status & VTE Plan Code Status Full code VTE Prophylaxis Plan VTE Prophylaxis will be ordered: Yes PG Care Time/CCT Total # of Minutes Spent Total Time Spent with Patient: Total time spent is greater than 50% in coordination of care (as documented) at patient's floor/unit and/or counseling patient: Coding Level of Care Code 56390 INT INP/OBS CARE 375MIN Diagnoses Enterovirus infection B34.1 CHF exacerbation I50.9 Acute on chronic respiratory failure with hypoxia J96.21 COPD exacerbation J44.1 URI (upper respiratory infection) J06.9 Paroxysmal atrial fibrillation I48.0 Cardiomyopathy I42.9 Diffuse large B-cell lymphoma of lymph nodes of multiple regions C83.38 B-cell lymphoma type: diffuse large B-cell Lymphoma site: multiple regions Essential hypertension I10 Hypertension type: essential hypertension Coronary artery disease involving [place] coronary artery of [place] heart without angina pectoris I25.10 Coronary Disease-Associated Artery/Lesion type: [place] artery [place] vs. transplanted heart: [place] heart Associated angina: without angina Chronic anticoagulation Z79.01 (8) B-cell lymphoma 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 (9) HTN (hypertension) Hypertension type: essential hypertension Qualified Code(s): I10 - Essential (primary) hypertension (10) Coronary artery disease Coronary Disease-Associated Artery/Lesion type: [place] artery [place] vs. transplanted heart: [place] heart Associated angina: without angina Qualified Code(s): I25.10 - Atherosclerotic heart disease of [place] coronary artery without angina pectoris
[2023-08-20] MEDS ORDERED: cefTRIAXone SODIUM 2,000 MG in DEXTROSE 5 % MINI-B 50 ML IV STA (00:10)
[2023-08-20] MEDS ORDERED: AZITHROMYCIN 500 MG in DEXTROSE 5% 250 ML IV ONE (00:15)
--- NOTE | 2023-08-20 00:23 | Emergency Department Note ---
Impression & Plan Enterovirus infection, SOB (shortness of breath), Congestive heart failure ED Provider Note NAME: MEG FINK AGE: 78 SEX: Male INFORMANT: Patient and ED PROVIDER(S): Rory Fernandez MD CHIEF COMPLAINT: Shortness of breath PLAN: Disposition: Admitted Outpatient prescription management: none Referral: None MEDICAL DECISION MAKING: Patient presented because of shortness of breath. He was borderline febrile. Chest imaging was performed and revealed no evidence of pneumonia. He does have some mild congestive change. Patient does carry history of CHF. He does have some mild ankle swelling. The patient was given Tylenol here. Bio fire testing was performed and revealed presence of enterovirus/rhinovirus. Patient was given a nebulizer treatment. Patient does have a mildly elevated BNP but normal troponin. ECG did not reveal ischemia. He does have a mild anemia and chronic renal insufficiency and chemistry panel. Given the patient's current illness and inability to get around without significant dyspnea further management in the hospital was felt to be appropriate. Consultation was made with Dr. William Colunga of the [facility] service. Patient was evaluated in the ER for further management. Care/management discussed with: none Level of care consideration(s): After review of the information above and other included data, I feel the patient requires escalation of care to admission. Triage Nursing notes: reviewed and agree them. Vital Signs: reviewed and remarkable for fever Additional History obtained from: Patient's . Patient is doing poorly at home over the last 24 hours. Chronic Medical/Social Conditions affecting care: CHF Prior/ Outside/ External records reviewed: none Differential Diagnosis: Reactive airway disease, pneumonia, pneumothorax, COPD, CHF, infections, cardiac ischemia, pulmonary embolism, musculoskeletal, gastrointestinal, as well as other pathologies. Diagnostics, independently interpreted by me: ECG: Twelve-lead ECG reveals normal sinus rhythm at 70 bpm. Poor R wave progression nonspecific ST abnormality. No ST elevation. Cardiac Monitoring: Cardiac monitoring ordered by me: The patient was placed on continuous cardiac monitoring and observed. It revealed a normal sinus rhythm at 95 beats per minute without ectopy or evidence of dysrhythmia. Medical decision rules: none Imaging studies: Chest x-ray as above. Mild congestive change. No infiltrate HPI: 78 year old Male arrives for evaluation of patient presented because of shortness of breath. Patient has had symptoms for about a week and have been progressive. He also notes developing a fever. He has a mild cough. states he is not doing very well and had to increase his oxygen up to 6 L at home. He notes severe dyspnea with ambulating about 10 to 15 feet. Patient denies any increased peripheral edema. He does have a history of CHF. He has been taking his medications regularly. Patient denies any sick contacts. Pt denies LOC, headache, diaphoresis, visual changes, neck pain, chest pain, nausea, vomiting, abdominal pain, back pain, melena, hematochezia, urinary symptoms, numbness, lymphadenopathy, rash, or other complaints. PAST MEDICAL HISTORY: See Below, CHF, UTI PAST SURGICAL HISTORY: See Below, SOCIAL HISTORY: See Below, HOME MEDICATIONS: See Below ALLERGIES: See Below VITALS: See Below PHYSICAL EXAMINATION: GENERAL: Awake, alert, dyspneic-appearing, in no distress HENT: Normocephalic, atraumatic. Oropharynx unremarkable. EYES: Normal conjunctiva. Sclera non-icteric. NECK: Inspection normal. Non-tender. Supple. No nuchal rigidity. FROM. No masses. RESPIRATORY: Few scattered crackles. Mildly increased respiratory effort. CARDIAC: Normal rate. Normal rhythm. No murmurs. No rubs. Extremities warm and well perfused. Pulses equal. No JVD. GI: Soft, non-distended. No tenderness to palpation. No rebound or guarding. No masses. RECTAL: Deferred. MUSCULOSKELETAL: Atraumatic. Chest examination reveals no tenderness. The back is symmetrical on inspection without obvious abnormality. There is no CVA tenderness to palpation. No joint edema. LOWER EXTREMITIES: Calves are equal size bilaterally and non-tender. 1 to edema. No discoloration. NEURO: Normal sensorium. No sensory or motor deficits noted. SKIN: No rash or jaundice noted. PROCEDURES: none CRITICAL CARE: none OBSERVATION NOTE: none Past Med/Surg History Medical History Acute kidney injury Acute kidney injury Acute respiratory failure with hypoxia [id number] kidney injury Anorexia ARF (acute renal failure) B-cell lymphoma Chronic back pain Coronary artery disease COVID-19 Deep vein thrombosis Deep vein thrombosis Depression Gastroenteritis due to 2019-nCo Hearing deficit Hemodialysis patient Hyperkalemia Hypersensitivity pneumonitis Left leg DVT Liver mass Metabolic acidosis Metabolic acidosis On anticoagulant therapy Osteoarthritis Paroxysmal atrial fibrillation Peripheral neuropathy Peripheral vascular disease Pneumonia Pneumonia Pneumonia due to COVID-19 virus Scrotal swelling Secondary hyperparathyroidism of renal origin Severe protein-calorie malnutrition Situational depression Sleep apnea UTI (urinary tract infection) Vitamin D deficiency Weight loss Surgical History H/O vascular surgery History of cardiac cath History of colonoscopy History of esophagogastroduodenoscopy (EGD) History of heart artery stent History of lumbar discectomy History of umbilical hernia repair S/P femoral-femoral bypass surgery Family History Mother FHx: lung cancer FHx: uterine cancer Other Allergy Cancer Diabetes Heart disease Lung cancer Lung disease Denies family history of Tuberculosis Emphysema of lung Asthma Social History Smoking Status: Never smoker Tobacco Type: Cigarettes packs per day: 1; Second Hand Exposure: No; Do You Dip or Chew Tobacco: No; Hx Alcohol Use: Yes Alcohol type: beer Hx Substance Use: No Preferred Language: Malay Communication Ability: Effective Exercise Equipment Specialist Required: No Beliefs That Will Affect Care: None Current Living Situation: Spouse Feels Safe at Home: Yes Assistive Devices: Oxygen - Continuous Allergies Allergies Allergy/AdvReac Type Severity Reaction Status Date / Time No Known Allergies Allergy Verified 08/19/23 22:34 Home Meds Home Medications Medication Instructions Recorded Confirmed atorvastatin 80 mg tablet (Lipitor) 80 mg PO HS #0 tabs 12/21/14 08/19/23 finasteride 5 mg tablet 5 mg PO QAM 12/04/18 08/19/23 clopidogrel 75 mg tablet 75 mg PO DAILY 09/15/21 08/19/23 Portable Oxygen 06/05/23 07/27/23 citalopram 20 mg tablet 30 mg PO DAILY 07/27/23 08/19/23 oxycodone 5 mg capsule 5 mg PO BID PRN Pain 07/27/23 08/19/23 Previous Rx's Medication Instructions Recorded carvedilol 25 mg tablet 25 mg PO BID #180 tabs 01/16/23 epoetin neptali 40,000 unit/mL 40,000 unit subcut .COMPLEX #1 mL 03/20/23 injection solution (Procrit) apixaban 5 mg tablet (Eliquis) 5 mg PO BID #180 tabs 04/20/23 bumetanide 0.5 mg tablet 0.5 mg PO DAILY PRN Edema or 07/11/23 weight increase of 2 lbs. in 1 day #90 tabs Results & Data (ED) Vital Signs Vital Signs - 24 hr 08/19/23 17:52 08/19/23 17:52 08/19/23 21:23 Temperature 36.6 C 37.7 C H Temperature Source Temporal Artery Scan Temporal Artery Scan Pulse Rate 74 Pulse Rate [Finger] 76 Pulse Rhythm [Finger] Regular Pulse Strength [Finger] Normal Respiratory Rate 18 20 Respiratory Effort / Characteristics Non-Labored Spontaneous Respiratory Depth Normal Blood Pressure 164/68 H Blood Pressure [Left Arm] 173/73 H Blood Pressure Mean 100 Blood Pressure Mean [Left Arm] 106 Blood Pressure Position Sitting Blood Pressure Position [Left Arm] Sitting Pulse Oximetry 94 94 98 Oxygen Delivery Method Nasal Cannula Nasal Cannula Room Air Oxygen Flow Rate 6 Sepsis Recent Fever Within 48 Hours No Sepsis New/Unexplained Change in Mental Status N/A Sepsis Action Taken by Nursing No Action Required Oxygen Flow Rate - Titration 6 08/19/23 21:58 08/19/23 22:14 08/19/23 22:21 Temperature 38.0 C H Temperature Source Oral Pulse Rate 77 105 H Pulse Rate [Finger] 93 H Pulse Rhythm [Finger] Regular Pulse Strength [Finger] Normal Respiratory Rate 18 Respiratory Effort / Characteristics Respiratory Depth Blood Pressure Blood Pressure [Left Arm] 135/82 Blood Pressure Mean Blood Pressure Mean [Left Arm] 99 Blood Pressure Position Blood Pressure Position [Left Arm] Sitting Pulse Oximetry 96 96 Oxygen Delivery Method Room Air Nasal Cannula Oxygen Flow Rate 6 Sepsis Recent Fever Within 48 Hours Sepsis New/Unexplained Change in Mental Status Sepsis Action Taken by Nursing Oxygen Flow Rate - Titration Laboratory Data 08/19/23 18:06 08/19/23 18:06 Lab Results 08/19/23 08/19/23 Range/Units 18:06 18:07 WBC 9.22 (4.8-10.8) K/ul RBC 3.74 L (4.70-6.10) M/uL Hgb 11.6 L (14.0-18.0) g/dl Hct 37.4 L (42.0-52.0) % MCV 100.0 (80.0-100.0) fL MCH 31.0 (25.0-34.0) pg MCHC 31.0 L (32.0-36.0) g/dL RDW Std Deviation 65.5 H (36.4-46.3) fL RDW Coeff of [place] 17.7 H (11.5-14.5) % Plt Count 299 (130-400) K/uL MPV 9.0 L (9.4-12.4) fL Immature Gran % (Auto) 0.5 % Neut % (Auto) 77.1 % Lymph % (Auto) 6.4 % [place] % (Auto) 11.2 % Eos % (Auto) 4.4 % Baso % (Auto) 0.4 % Neut # (Auto) 7.10 H (1.40-6.50) K/uL Lymph # (Auto) 0.59 L (1.20-3.40) K/uL [place] # (Auto) 1.03 H (0.11-0.59) K/uL Eos # (Auto) 0.41 (0.00-0.50) K/uL Baso # (Auto) 0.04 (0.00-0.20) K/uL Immature Gran # (Auto) 0.05 (0.01-0.20) K/uL Sodium 140 (136-145) mmol/L Potassium 4.5 (3.5-5.1) mmol/L Chloride 106 (98-107) mmol/L Carbon Dioxide 28 (21-32) mmol/L Anion Gap 6 (3-11) BUN 56 H (6-23) mg/dl Creatinine 3.36 H (0.6-1.4) mg/dl Est Cr Clr Drug Dosing Not Reportable Est GFR ( Amer) 19.2 ml/min Est GFR (Non-Af Amer) 16.6 ml/min BUN/Creatinine Ratio 16.7 (10-20) Glucose 101 H (70-99(Fasting)) mg/dl Calcium 9.8 (8.6-10.3) mg/dl Total Bilirubin 0.4 (0.2-1.0) mg/dl AST 16 (13-39) U/L ALT 14 (7-52) U/L Alkaline Phosphatase 49 (34-104) U/L Troponin I High Sens 17.5 (0-20) pg/ml B-Natriuretic Peptide 573 H (0-100) pg/ml Total Protein 6.7 (6.0-8.3) gm/dl Albumin 3.7 (3.4-5.0) gm/dl Globulin 3.0 (2.5-4.0) gm/dl Albumin/Globulin Ratio 1.2 (0.9-2) Adenovirus (PCR) Not Detected (NotDetected) B. pertussis DNA (PCR) Not Detected (NotDetected) B.parapertussis DNA PCR Not Detected (NotDetected) C. pneumoniae DNA (PCR) Not Detected (NotDetected) Coronavirus OC43 (PCR) Not Detected (NotDetected) Coronavirus HKU1 (PCR) Not Detected (NotDetected) Coronavirus 229E (PCR) Not Detected (NotDetected) SARS-CoV-2 (PCR) Not Detected (NotDetected) Coronavirus NL63 (PCR) Not Detected (NotDetected) Human Metapneumovir PCR Not Detected (NotDetected) Influenza Type A (PCR) Not Detected (NotDetected) Influenza Type B (PCR) Not Detected (NotDetected) M. pneumoniae (PCR) Not Detected (NotDetected) Parainfluenza 1 (PCR) Not Detected (NotDetected) Parainfluenza 2 (PCR) Not Detected (NotDetected) Parainfluenza 3 (PCR) Not Detected (NotDetected) Parainfluenza 4 (PCR) Not Detected (NotDetected) RSV (PCR) Not Detected (NotDetected) Entero/Rhino (PCR) DETECTED A* (NotDetected) Administered Medications Discontinued Medications Acetaminophen (Acetaminophen 325 Mg Tab) 650 mg PO NOW STA Stop: 08/19/23 21:25 Last Admin: 08/19/23 21:30 Dose: 650 mg Documented By: JUN Albuterol (Albut/Ipratrop 3mg/0.5mg Neb 3 Ml Vial) 3 ml NEB NOW STA; Protocol Stop: 08/19/23 22:17 Last Admin: 08/19/23 22:39 Dose: 3 ml Documented By: CAPRI Imaging Data Radiologist's Impression: Chest X-Ray 08/19/23 18:04 XR chest 1V portable HISTORY: Dyspnea COMPARISON: Chest 02/07/2023. FINDINGS: No pneumothorax. No pleural effusions. The cardiac silhouette is mildly enlarged. There is progressive interstitial/vascular thickening consistent with mild pulmonary edema. A left jugular Port-A-Cath is unchanged in position and likely terminates within the proximal left brachiocephalic vein. No acute fractures. IMPRESSION: Progressive interstitial/vascular thickening consistent with mild pulmonary edema. ACT 112: Negative or not required by law. Electronically signed by: Parish Zelaya M.D. 08/19/2023 8:08 PM Discharge Plan Visit Data Chief Complaint: Shortness of Breath/Dyspnea Stated Complaint: SOB, DIFFICULTY BREATHING ED Provider: Rory Fernandez Discharge Problem: Enterovirus infection, SOB (shortness of breath), Congestive heart failure Forms Stand Alone Forms: [facility] Prescriptions Prescriptions: No Action atorvastatin [Lipitor] 80 mg Tablet 80 mg PO HS Qty: 0 Procrit 40,000 unit/mL solution 40,000 unit subcut .COMPLEX Qty: 1 0RF Rx Instructions: 40,000 units subcutaneously Monthly; bumetanide 0.5 mg tablet 0.5 mg PO DAILY PRN (Reason: Edema or weight increase of 2 lbs. in 1 day) Qty: 90 3RF clopidogrel 75 mg tablet 75 mg PO DAILY carvedilol 25 mg tablet 25 mg PO BID Qty: 180 3RF Rx Instructions: must administer with a meal/food (DME) Portable Oxygen Misc See Rx Instructions .MEDSUPPLY Rx Instructions: Oxygen 4 liters continuous via nasal cannula at bedtime with portable concentrator. ZENOBIA 99 oxycodone 5 mg capsule 5 mg PO BID PRN (Reason: Pain) Eliquis 5 mg tablet 5 mg PO BID Qty: 180 3RF finasteride 5 mg tablet 5 mg PO QAM citalopram 20 mg tablet 30 mg PO DAILY Referrals Referrals: Vinod Pang [Primary Care Provider] -
[2023-08-20 03:02] LABS: Appearance Urine Clear (Clear); Bacteria Urine Automated Negative (Negative); Bilirubin Urine Negative (Negative); Blood Urine Negative (Negative); Cast Urine Automated 0 /lpf (0-5); Color Urine Yellow; Epithelial Cell Urine Auto 0-5 /lpf (0-5); Glucose Urine UA Negative (Negative); Ketones Urine Negative (Negative); Leukocyte Esterase Urine Negative (Negative); Nitrite Urine Negative (Negative); Protein Urine Trace (Negative); RBC Urine Automated 0-4 /hpf (0-4); Urobilinogen Urine Negative (Negative); WBC Urine Automated 0 /hpf (0-5); pH Urine 5.5 (4.5-7.5)
[2023-08-20] MEDS ORDERED: ONDANSETRON INJ 2 MG/ML 2 ML VIAL IV PRN (06:02)
[2023-08-20] MEDS ORDERED: ACETAMINOPHEN 325 MG TAB PO PRN (06:02)
[2023-08-20] MEDS ORDERED: oxyCODONE HCL IR 5 MG TAB (IMMEDIATE RELEASE) PO PRN (06:08)
[2023-08-20] MEDS: ALBUT/IPRATROP 3MG/0.5MG NEB 3 ML VIAL NEB SCH ×4 (07:32→19:58)
[2023-08-20] MEDS: CITALOPRAM 20 MG TAB PO SCH (08:02)
[2023-08-20] MEDS: CLOPIDOGREL BISULFATE 75 MG TAB PO SCH (08:02)
[2023-08-20] MEDS: FINASTERIDE 5 MG TAB PO SCH (08:02)
[2023-08-20] MEDS: methylPREDNISolone 40 MG in SYRINGE 0 ML IV SCH ×2 (08:02→20:30)
[2023-08-20] MEDS: carvediloL 25 MG TAB PO SCH ×2 (08:02→20:31)
[2023-08-20] MEDS ORDERED: FUROSEMIDE INJ 20 MG/2 ML VIAL IV ONE (08:30)
--- NOTE | 2023-08-20 08:32 | Electrocardiogram Report ---
Test Reason : Blood Pressure : / mmHG Vent. Rate : 070 BPM Atrial Rate : 070 BPM P-R Int : 182 ms QRS Dur : 094 ms QT Int : 400 ms P-R-T Axes : 053 024 100 degrees QTc Int : 432 ms Poor data quality, interpretation may be adversely affected Normal sinus rhythm Left ventricular hypertrophy with repolarization abnormality Abnormal ECG When compared with ECG of 07-FEB-2023 17:58, Sinus rhythm has replaced Atrial fibrillation Confirmed by Ramón Shelby ([id number]) on 08/20/2023 8:32:00 AM Referred By: REFERRED SELF Confirmed By:Ramón Shelby
[2023-08-20] MEDS ORDERED: APIXABAN 2.5 MG TAB PO SCH (09:00)
[2023-08-20] MEDS ORDERED: FUROSEMIDE 40 MG/4 ML VIAL IV SCH ×2 (09:00)
[2023-08-20] MEDS ORDERED: APIXABAN 5 MG TABLET PO SCH (09:00)
--- NOTE | 2023-08-20 15:28 | Hospitalist Progress Note ---
Date of Service August 20, 2023 Assessment & Plan (1) Enterovirus infection: Plan: Positivity noted on bio fire. No symptoms of viral gastroenteritis at this time. (2) CHF exacerbation: Plan: Acute on chronic systolic CHF. Most recent cardiac echo reveals ejection fraction of 40%. Continue Lasix diuresis along with other medications. Repeat chest x-ray tomorrow, August 21 (3) Acute on chronic respiratory failure with hypoxia: Plan: Oxygen per nasal cannula to maintain saturation greater than 90%. Wean to his usual levels hopefully prior to discharge (4) COPD exacerbation: Plan: Improved. Continue to treat CHF (5) Paroxysmal atrial fibrillation: (6) B-cell lymphoma: Plan: Stable. Supportive care (7) HTN (hypertension): Plan: Stable. Continue current medical manage (8) Coronary artery disease: Plan: Stable. Continue current medical manage (9) Chronic anticoagulation: Plan: Continue Eliquis therapy. However, due to advanced age and chronic kidney disease, the dosage has been decreased Plan Hopefully home tomorrow, August 21 Admission and Anticipated Discharge Date Admission Date: August 19, 2023 Subjective Alert and oriented. No acute distress. This morning he was requiring more oxygen than his usual. He appears to have acute on chronic systolic CHF. Known ejection fraction 40%. Parenteral Lasix dosage increased. He has stage IV kidney disease and Eliquis dosage has been down titrated. We will repeat portable chest x-ray again tomorrow, August 21. Hopefully he can go home tomorrow. Review of Systems 2 Review of Systems: Constitutional-no fever or chills ENT-no blurred vision, no double vision, no epistaxis, no sore throat Respiratory-no cough, no wheezing. Dyspnea on exertion present on admission Cardiac-no palpitations, no chest pain, no syncope GI-no nausea, vomiting, diarrhea, melena, hematochezia -no urinary retention, no urinary incontinence, no dysuria, no hematuria Musculoskeletal-no joint pain, no muscle tenderness Skin-no bruising, no rashes, no pruritus Neuro-no isolated weakness, no paresthesia, no weakness Psych-no depression, no anxiety Physical Exam 2 Physical Exam: General-alert and oriented x3, no fevers, no chills HEENT-head atraumatic and normocephalic, pupils equal and reactive to light, extraocular muscles intact Neck-no lymphadenopathy or thyromegaly, trachea midline Chest-faint bibasilar inspiratory rales. No wheezing. No dullness to percussion. No rhonchi. Cardiac-regular rate and rhythm, normal S1 and S2 Abdomen-normal bowel sounds, nontender, no hepatosplenomegaly Extremities-no cyanosis, clubbing. 1+ pitting edema both feet noted Neuro-cranial nerves II through XII intact, motor and sensory function within normal limits, strength symmetrical , no focal deficits Psych-normal affect, normal mood Results & Data Results & Data Vital Signs (Past 12 Hours) Vital Signs Temp Pulse Pulse Resp BP BP Pulse Ox 08/20/23 15:02 68 18 98 08/20/23 11:08 36.6 C 62 18 119/54 L 93 08/20/23 10:39 57 L 22 92 08/20/23 09:28 96 08/20/23 08:00 08/20/23 08:00 64 08/20/23 07:32 63 18 98 08/20/23 07:00 36.5 C 62 18 127/69 100 08/20/23 06:32 08/20/23 05:38 36.4 C L 62 18 130/60 95 08/20/23 04:30 64 18 124/91 98 08/20/23 04:00 67 18 116/68 97 08/20/23 03:30 73 18 134/73 97 O2 Del Method O2 Flow Rate 08/20/23 15:02 Nasal Cannula 4 08/20/23 11:08 Nasal Cannula 4 08/20/23 10:39 Nasal Cannula 4 08/20/23 09:28 Nasal Cannula 5 08/20/23 08:00 Nasal Cannula 5 08/20/23 08:00 08/20/23 07:32 Nasal Cannula 6 08/20/23 07:00 Nasal Cannula 6 08/20/23 06:32 Nasal Cannula 6 08/20/23 05:38 Nasal Cannula 6 08/20/23 04:30 Nasal Cannula 6 08/20/23 04:00 Nasal Cannula 6 08/20/23 03:30 Nasal Cannula 6 Laboratory Results 08/19/23 18:06 08/19/23 18:06 PG Care Time/CCT Total # of Minutes Spent Total Time Spent with Patient: Total time spent is greater than 50% in coordination of care (as documented) at patient's floor/unit and/or counseling patient: Coding Level of Care Code 56994 SUB INP/OBS CARE 50MIN Diagnoses Enterovirus infection B34.1 CHF exacerbation I50.9 Acute on chronic respiratory failure with hypoxia J96.21 COPD exacerbation J44.1 Paroxysmal atrial fibrillation I48.0 Diffuse large B-cell lymphoma of lymph nodes of multiple regions 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 transplanted heart: [place] heart Associated angina: without angina Chronic anticoagulation Z79.01 (6) B-cell lymphoma 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 (7) HTN (hypertension) Hypertension type: essential hypertension Qualified Code(s): I10 - Essential (primary) hypertension (8) Coronary artery disease Coronary Disease-Associated Artery/Lesion type: [place] artery [place] vs. transplanted heart: [place] heart Associated angina: without angina Qualified Code(s): I25.10 - Atherosclerotic heart disease of [place] coronary artery without angina pectoris
[2023-08-20] MEDS ORDERED: AZITHROMYCIN 500 MG in DEXTROSE 5% 250 ML IV SCH (20:00)
[2023-08-20] MEDS: APIXABAN 2.5 MG TAB PO SCH (20:30)
[2023-08-20] MEDS: FUROSEMIDE 40 MG/4 ML VIAL IV SCH (20:32)
[2023-08-20] MEDS ORDERED: ATORVASTATIN 40 MG TAB PO SCH (21:00)
[2023-08-20] MEDS ORDERED: cefTRIAXone SODIUM 2,000 MG in DEXTROSE 5 % MINI-B 50 ML IV SCH (22:00)
[2023-08-21 06:46] LABS: Hematocrit (blood only) 36.8 % (42.0-52.0); Hemoglobin 11.8 g/dl (14.0-18.0); Mean Corpuscular Hemoglobin 31.2 pg (25.0-34.0); Mean Corpuscular Hgb Conc 32.1 g/dL (32.0-36.0); Mean Corpuscular Volume 97.4 fL (80.0-100.0); Mean Platelet Volume 9.8 fL (9.4-12.4); Platelet Count 293 K/uL (130-400); RDW Coefficient of Variation 17.1 % (11.5-14.5); RDW Standard Deviation 61.6 fL (36.4-46.3); Red Blood Count 3.78 M/uL (4.70-6.10); White Blood Count 11.42 K/ul (4.8-10.8)
[2023-08-21 07:03] LABS: BUN Creatinine Ratio 20.4 (10-20); Calcium 9.2 mg/dl (8.6-10.3); Creatinine Clr Calc Pharmacy 17.4 ml/min; Est GFR (African American) 17.9 ml/min; Est GFR (Non-African American) 15.4 ml/min
[2023-08-21] MEDS: ALBUT/IPRATROP 3MG/0.5MG NEB 3 ML VIAL NEB SCH ×3 (07:04→15:06)
--- NOTE | 2023-08-21 07:07 | XRay Report ---
XR chest 1V portable HISTORY: 78 years-old Male CHF acute shortness of breath COMPARISON: 08/19/2023 TECHNIQUE: AP view of the chest FINDINGS: Cardiac silhouette is enlarged. Pulmonary vascular congestion with mildly improved interstitial coars ening. No pneumothorax, pleural effusion or airspace consolidation. Unchanged left IJ [id number] c atheter. IMPRESSION: Cardiomegaly with mildly improved pulmonary edema. ACT 112: Negative or not required by law. The above report was generated using voice recognition software. It may contain grammatical, syntax o r spelling errors. Electronically signed by: Usama Villarreal M.D. 08/21/2023 7:05 AM
[2023-08-21 07:12] LABS: Basophils # (auto) 0.02 K/uL (0.00-0.20); Basophils % (auto) 0.2 %; Immature Granulocytes # (auto) 0.05 K/uL (0.01-0.20); Immature Granulocytes % (auto) 0.4 %; Lymphocytes # (auto) 0.42 K/uL (1.20-3.40); Lymphocytes % (auto) 3.7 %; Monocytes # (auto) 0.56 K/uL (0.11-0.59); Monocytes % (auto) 4.9 %; Neutrophils # (auto) 10.37 K/uL (1.40-6.50); Neutrophils % (auto) 90.8 %
[2023-08-21] MEDS: APIXABAN 2.5 MG TAB PO SCH (08:13)
[2023-08-21] MEDS: CLOPIDOGREL BISULFATE 75 MG TAB PO SCH (08:13)
[2023-08-21] MEDS: carvediloL 25 MG TAB PO SCH (08:13)
[2023-08-21] MEDS: FUROSEMIDE 40 MG/4 ML VIAL IV SCH (08:14)
[2023-08-21] MEDS: CITALOPRAM 20 MG TAB PO SCH (08:14)
[2023-08-21] MEDS: FINASTERIDE 5 MG TAB PO SCH (08:14)
[2023-08-21] MEDS: methylPREDNISolone 40 MG in SYRINGE 0 ML IV SCH (08:20)
[2023-08-21 08:32] VITALS: TEMP 97.7
--- NOTE | 2023-08-21 10:54 | Nephrology Consultation ---
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 Started on methylprednisolone, azithromycin and Rocephin empirically and overall clinically doing better. Started on Lasix 60 mg IV twice a day with significant drop in weight and improvement in pulmonary congestion. Slight change in creatinine noted although not clearly far from baseline, electrolyte acceptable. Hemoglobin above 11. -- Discontinue Lasix and resume home dose of Bumex 1 mg daily and continue to follow with heart failure clinic as scheduled as an outpatient. -- no need for NICOLASA at this time, hemoglobin >11 -- dose medications for eGFR less than 15 Will follow It was a pleasure to see Manuel. History of Present Illness Reason for Consultation: Stage 4 CKD, KATHY, respiratory distress. Attending Physician: Suleiman Juares MD History of Present Illness Mr. Manuel De La Cruz is a 78 year old Male with PMH of stage 4 CKD, HTN, COPD, ILD, chronic anemia admitted to hospital with progressive shortness of breath over last 1 week and positive for enterovirus. Nephrology consult was requested as per past family wish to see him from CKD standpoint. EMR records are reviewed in detail during patient's visit. Manuel presented to the hospital yesterday with progressive shortness of breath for about a week. She reports having some shortness of breath as an outpatient and a week ago when he was seen by his PCP he was given some injection and he felt better for few days. However over the last few days he became more short of breath to the point that he was not even able to walk 10 to 15 feet without oxygen. Generally he uses 4L NC oxygen at night but not during daytime. He has history of CHF, has been taking Bumex 1 mg daily and did not notice any significant change in his weight or worsening lower extremity edema. He was empirically started on ceftriaxone, azithromycin and methylprednisolone. since admission he has been on Lasix 60 mg IV twice a day. Initially chest x-ray showed mild pulmonary vascular congestion without overt pulmonary edema which seems to have improved slightly on chest x-ray this morning. Did not have any chest pain or EKG changes. Urine output is unmeasured but urine output is unmeasured but he reports voiding normally and his weight initially on admission was 87 kg which went down to 84 yesterday and 81kg today. On admission creatinine was 3.4 mg/dl, just his baseline which slightly worsened to 3.6 mg/dl today. Hemoglobin staying above 11. Stage IV/V CKD secondary to microvascular disease b/l cr has been around 3.0 to 3.5 with some variability, low grade proteinuria. Renal ultrasound revealed normal size kidneys with small bilateral simple cysts and stable b/l nephrolithiasis. Was on dialysis briefly in December and January 2019 after worsening of renal function in the setting of new diagnosis of B-cell lymphoma. Eventually kidney function improved and has been off of dialysis since. Has mature right radiocephalic AV fistula. Long-standing HTN, well controlled, on diltiazem 240, hydralazine 50 t.i.d. Imdur 60 mg and hydralazine 50 mg TID. h/o CAD single artery angioplasty w/stenting previously, on Plavix and aspirin therapy. Has peripheral vascular disease, underwent right lower extremity bypass surgery by Dr. Pollard [place] [facility] [place] No history of diabetes, denies chronic NSAID use. He has lower extremity edema mainly in right lower extremity with previous history of multiple surgery in right lower extremity and venous and arterial insufficiency requiring angioplasty and stent. Has been on Eliquis for P A fib. h/o anemia of chronic disease, iron deficiency on oral iron, previously EGD, colonoscopy and capsule endoscopy was unremarkable except hiatus hernia, on Protonix 40 milligrams p.o. daily. On NICOLASA as an outpt. h/o diffuse large B-cell lymphoma Dx in November 2018, he completed chemotherapy with R-CHOP. Now in remission. . Denies any active bleeding. Had COVID pneumonia in February 2022 requiring hospitalization for more than 10 days, recovered without needing intubation. Manuel is feeling better this morning, SOB improved. Reports decent UO. Allergies Allergy/AdvReac Type Severity Reaction Status Date / Time No Known Allergies Allergy Verified 08/19/23 22:34 Home Medications Medication Instructions Recorded Confirmed Type atorvastatin 80 mg tablet (Lipitor) 80 mg PO HS #0 tabs 12/21/14 08/19/23 History finasteride 5 mg tablet 5 mg PO QAM 12/04/18 08/19/23 History clopidogrel 75 mg tablet 75 mg PO DAILY 09/15/21 08/19/23 History carvedilol 25 mg tablet 25 mg PO BID #180 tabs 01/16/23 08/19/23 Rx epoetin neptali 40,000 unit/mL 40,000 unit subcut .COMPLEX #1 mL 03/20/23 08/19/23 Rx injection solution (Procrit) apixaban 5 mg tablet (Eliquis) 5 mg PO BID #180 tabs 04/20/23 08/19/23 Rx Portable Oxygen 06/05/23 07/27/23 History bumetanide 0.5 mg tablet 0.5 mg PO DAILY PRN Edema or 07/11/23 08/19/23 Rx weight increase of 2 lbs. in 1 day #90 tabs citalopram 20 mg tablet 30 mg PO DAILY 07/27/23 08/19/23 History oxycodone 5 mg capsule 5 mg PO BID PRN Pain 07/27/23 08/19/23 History Patient History Medical History Acute kidney injury Acute kidney injury Acute respiratory failure with hypoxia Uzdgl-gg-jwdsncc kidney injury Anorexia ARF (acute renal failure) B-cell lymphoma Chronic back pain Coronary artery disease COVID-19 Deep vein thrombosis Deep vein thrombosis Depression Gastroenteritis due to Hearing deficit Hemodialysis patient Hyperkalemia Hypersensitivity pneumonitis Left leg DVT Liver mass Metabolic acidosis Metabolic acidosis On anticoagulant therapy Osteoarthritis Paroxysmal atrial fibrillation Peripheral neuropathy Peripheral vascular disease Pneumonia Pneumonia Pneumonia due to COVID-19 virus Scrotal swelling Secondary hyperparathyroidism of renal origin Severe protein-calorie malnutrition Situational depression Sleep apnea UTI (urinary tract infection) Vitamin D deficiency Weight loss Surgical History H/O vascular surgery History of cardiac cath History of colonoscopy History of esophagogastroduodenoscopy (EGD) History of heart artery stent History of lumbar discectomy History of umbilical hernia repair S/P femoral-femoral bypass surgery Family History Mother FHx: lung cancer FHx: uterine cancer Other Allergy Cancer Diabetes Heart disease Lung cancer Lung disease Denies family history of Tuberculosis Emphysema of lung Asthma Social History Smoking Status: Never smoker Tobacco Type: Cigarettes packs per day: 1; Second Hand Exposure: No; Do You Dip or Chew Tobacco: No; Hx Alcohol Use: Yes Alcohol type: beer Hx Substance Use: No Preferred Language: Faroese Communication Ability: Effective Computer Security Coordinator Required: No Beliefs That Will Affect Care: None Current Living Situation: Spouse Current Living Situation Comment: -Sandra Feels Safe at Home: Yes Assistive Devices: Cane and Oxygen - Continuous Review of Systems Review of Systems: Detailed review of system was done and pertinent positives and negatives are mentioned above. Physical Exam Constitutional: WD/WN, vitals as above no acute distress Eyes: + anicteric sclerae Neck: normal visual inspection Respiratory: no respiratory distress and no cough Auscultation: lungs clear to auscultation bilaterally Cardiovascular: RRR, no murmur, no edema Gastrointestinal (Abdomen): Inspection/Auscultation: abdomen normal to inspection and normal bowel sounds Percussion/Palpation: abdomen soft; abdomen nontender Musculoskeletal: Extremities: extremities normal to inspection Skin: no rashes, warm and dry Neurologic: no focal motor deficits Psychiatric: Orientation: alert and oriented x 3 Affect: euthymic affect Results & Data Vital Signs (Past 12 Hours) Vital Signs Temp Pulse Pulse Resp BP Pulse Ox O2 Del Method 08/21/23 10:32 66 20 98 Nasal Cannula 08/21/23 08:00 Nasal Cannula 08/21/23 08:00 67 08/21/23 07:47 36.5 C 66 19 142/66 H 97 Nasal Cannula 08/21/23 07:11 64 20 96 Nasal Cannula 08/21/23 02:28 36.4 C L 92 H 18 123/70 93 Nasal Cannula 08/20/23 23:07 36.5 C 58 L 18 124/76 96 Nasal Cannula O2 Flow Rate 08/21/23 10:32 4 08/21/23 08:00 4 08/21/23 08:00 08/21/23 07:47 4 08/21/23 07:11 4 08/21/23 02:28 4 08/20/23 23:07 4 PG Care Time/CCT Total # of Minutes Spent Total Time Spent with Patient: Total time spent is greater than 50% in coordination of care (as documented) at patient's floor/unit and/or counseling patient: Coding Level of Care Code 75134 INT INP/OBS CARE 3/75MIN Diagnoses Yvpqx-vh-wnewojk kidney injury N17.9; N18.9 Acute and chronic respiratory failure with hypoxia J96.21 Anemia due to stage 4 chronic kidney disease N18.4; D63.1 Anemia type: due to chronic kidney disease Chronic kidney disease stage: stage 4 (severe) Essential hypertension I10 Hypertension type: essential hypertension (3) Anemia Anemia type: due to chronic kidney disease Chronic kidney disease stage: stage 4 (severe) Qualified Code(s): N18.4 - Chronic kidney disease, stage 4 (severe); D63.1 - Anemia in chronic kidney disease (4) HTN (hypertension) Hypertension type: essential hypertension Qualified Code(s): I10 - Essential (primary) hypertension
[2023-08-21 12:15] VITALS: BP 130/77
--- NOTE | 2023-08-21 12:54 | Discharge Summary ---
Date of Service August 21, 2023 Admission HPI Per Admitting Provider The patient is a 78-year-old male with a past medical history including moderate mitral regurgitation, mild aortic stenosis, paroxysmal atrial fibrillation, CHF, CKD stage IV, chronic respiratory failure, restrictive lung disease, depression, COPD, PAD, MAEGAN, CAD. The patient presents to the emergency department with history of having completed a 10-day course of antibiotics for respiratory infection, with progressive shortness of breath and lower extremity edema. Principal Diagnosis Acute on chronic systolic congestive heart failure, acute on chronic respiratory failure, acute exacerbation COPD Discharge Exam General-alert and oriented x3, no fevers, no chills HEENT-head atraumatic and normocephalic, pupils equal and reactive to light, extraocular muscles intact Neck-no lymphadenopathy or thyromegaly, trachea midline Chest-faint bibasilar inspiratory rales. No wheezing. No dullness to percussion. No rhonchi. Cardiac-regular rate and rhythm, normal S1 and S2 Abdomen-normal bowel sounds, nontender, no hepatosplenomegaly Extremities-no cyanosis, clubbing. 1+ pitting edema both feet noted Neuro-cranial nerves II through XII intact, motor and sensory function within normal limits, strength symmetrical , no focal deficits Psych-normal affect, normal mood Discharge Data Allergies Allergy/AdvReac Type Severity Reaction Status Date / Time No Known Allergies Allergy Verified 08/19/23 22:34 Consultations 08/19/23 22:17 ED Decision to Admit Stat 08/21/23 09:59 Consult Nephrology Routine Hospital Course (1) Enterovirus infection: Positivity noted on bio fire. No symptoms of viral gastroenteritis at this time. (2) CHF exacerbation: Acute on chronic systolic CHF. Most recent cardiac echo reveals ejection fraction of 40%. Treated while hospitalized with Lasix diuresis along with other medications. Repeat chest x-ray today, August 21, looks better. Oral Bumex dosage will be increased at discharge (3) Acute on chronic respiratory failure with hypoxia: He is now back to his usual oxygen usage. (4) COPD exacerbation: Resolved with resolution of CHF. (5) Paroxysmal atrial fibrillation: Stable. Continue current medical management (6) B-cell lymphoma: Stable. Supportive care (7) HTN (hypertension): Stable. Continue current medical manage (8) Coronary artery disease: Stable. Continue current medical manage (9) Chronic anticoagulation: Continue Eliquis therapy. However, due to advanced age and chronic kidney disease, the dosage has been decreased (10) Chronic kidney disease, stage IV (severe): Creatinine is elevated and has crept up slightly with diuresis. He has been seen by nephrology per family request. Oral Bumex dosage has been uptitrated at the time of discharge. Renal function will need to be monitored as an outpatient by the PCP or ear flap binder Plan Home today, August 21 Total Time Total Time Spent Total Time Spent (In Minutes): 45 minutes Discharge Plan Discharge Items Patient Disposition: Home - Self-Care Reason For Visit: CHF EXACERBATION, URI Discharge Diagnosis: Acute on chronic systolic congestive heart failure, acute on chronic respiratory failure, acute exacerbation COPD Activity: Resume your previous activity Non-emergency contact: Primary Care Provider and Drying Tumbler Operator Call non-emergency contact if: you have any medication questions and your symptoms worsen Follow-up/Referrals: Vinod Pang [Primary Care Provider] - Diet: Regular and Heart Healthy Addtl Attending Provider Instructions: Eliquis dosage has been decreased. Bumex dosage has been increased. Pending Studies at Discharge: No Stand-Alone Forms: My [facility] [place], Smoking Cessation Medications and DC Order Prescriptions: New Eliquis 2.5 mg Tablet 2.5 mg PO BID Qty: 60 0RF bumetanide 1 mg Tablet 1 mg PO QAM Qty: 30 0RF Continued atorvastatin [Lipitor] 80 mg Tablet 80 mg PO HS Qty: 0 Procrit 40,000 unit/mL solution 40,000 unit subcut .COMPLEX Qty: 1 0RF Rx Instructions: 40,000 units subcutaneously Monthly; clopidogrel 75 mg tablet 75 mg PO DAILY carvedilol 25 mg tablet 25 mg PO BID Qty: 180 3RF Rx Instructions: must administer with a meal/food (DME) Portable Oxygen Misc See Rx Instructions .MEDSUPPLY Rx Instructions: Oxygen 4 liters continuous via nasal cannula at bedtime with portable concentrator. ZENOBIA 99 oxycodone 5 mg capsule 5 mg PO BID PRN (Reason: Pain) finasteride 5 mg tablet 5 mg PO QAM citalopram 20 mg tablet 30 mg PO DAILY Discontinued bumetanide 0.5 mg tablet 0.5 mg PO DAILY PRN (Reason: Edema or weight increase of 2 lbs. in 1 day) Qty: 90 3RF Eliquis 5 mg tablet 5 mg PO BID Qty: 180 3RF Discharge Orders: Discharge Order- CHF (Routine); Ordered 08/21/23 Ordered By: Suleiman Juares Admission Data Admit Date/Time: 08/19/23 23:57 Attending Provider: Suleiman Juares Admit Provider: William Colunga Primary Care Provider: Vinod Pang Other Providers: William Colunga; Reanna Kearns Coding Level of Care Code 57555 INP/OBS DISCH >30 MIN Diagnoses Enterovirus infection B34.1 CHF exacerbation I50.9 Acute on chronic respiratory failure with hypoxia J96.21 COPD exacerbation J44.1 Paroxysmal atrial fibrillation I48.0 Diffuse large B-cell lymphoma of lymph nodes of multiple regions C83.38 B-cell lymphoma type: diffuse large B-cell Lymphoma site: multiple regions Essential hypertension I10 Hypertension type: essential hypertension Coronary artery disease involving seminole coronary artery of seminole heart without angina pectoris I25.10 Coronary Disease-Associated Artery/Lesion type: seminole artery [place] vs. transplanted heart: seminole heart Associated angina: without angina Chronic anticoagulation Z79.01 Chronic kidney disease, stage IV (severe) N18.4
[2023-08-21 15:16] VITALS: PULSE 74; RESP 20; O2SAT 92
--- OUTSIDE RECORDS SUMMARY | 2023-08-21 23:49 | External Medical Summary ---
Author Name Unknown Address Unknown Organization [facility]:[address] [place] [address] Laboratory Report Ordering Provider Test Date Status DEMETRIO GREY 07/11/2023 06:34 Final Observation Date Value Abnormality Reference (Units ) Status Glucose 07/11/2023 11:27 103 70-110 (MG/DL) Final BUN 07/11/2023 11:27 40 Above high normal 6-25 (MG/DL) Final Creatinine 07/11/2023 11:27 3.0 Above high normal 0.7-1.3 (MG/DL) Final Sodium 07/11/2023 11:27 144 135-145 (MEQ/L) Final Potassium 07/11/2023 11:27 4.9 3.5-5.0 (MEQ/L) Final Cl 07/11/2023 11:27 107 95-107 (MEQ/L) Final CO2 07/11/2023 11:27 27 24-31 (MEQ/L) Final Alk Phos 07/11/2023 11:27 48 43-122 (IU/L) Final ALT (Alanine aminotransferase) 07/11/2023 11:27 10 10-40 (IU/L) Final AST (Aspartate aminotransferase) 07/11/2023 11:27 9 3-42 (IU/L) Final Bilirubin, Total 07/11/2023 11:27 0.5 0.1-1.3 (MG/DL) Final Calcium 07/11/2023 11:27 8.9 8.5-10.6 (MG/DL) Final Protein 07/11/2023 11:27 6.1 5.8-8.0 (G/DL) Final Albumin 07/11/2023 11:27 3.5 3.0-5.2 (G/DL) Final GLOBULIN 07/11/2023 11:27 2.6 2.0-3.4 (G/DL) Final GFR (estimated) 07/11/2023 11:27 22 Below low normal >60 (ML/MIN/1.73 SQM) Final Performing Location [facility] [address] [place] [address]
--- OUTSIDE RECORDS SUMMARY | 2023-08-21 23:49 | External Medical Summary ---
Author Name Unknown Address Unknown Organization [id number] [address] [place] [id number] Laboratory Report Ordering Provider Test Date Status DEMETRIO GREY 07/11/2023 06:34 Final Observation Date Value Abnormality Reference (Units ) Status ANISO 07/11/2023 10:15 2+ Fin al OVALOCYTES 07/11/2023 10:15 1+ Fi nal Performing Location [facility] [address] [place] [id number]
--- OUTSIDE RECORDS SUMMARY | 2023-08-21 23:49 | External Medical Summary | Summary of Care ---
Author Name Unknown Organization [facility] Address [address] [place] [address] Phone [phone] Care Team Providers Care Engine Head Repairer Name Role Phone Poly Basilio DO, Kenneth Primary Care Provider [phone] Reason for Visit * Reason Onset Date Comments Appointment 05/19/2023 Encounter Details Date Type Department Care Team (Late st Contact Info) Description 05/19/2023 Telephone Access Center, [place] [address] [facility] *DO NOT REMOVE THIS DEPARTMENT* [place] [address] Services, Scheduling [address] [place] [address] Appointment Allergies No known active allergiesdocumented as of this encounter (statuses as of 08/18/2023) Medications Medication Sig Dispensed Refills Start Date End Date Status PLAVIX 75 MG PO TABS 1 tablet daily 0 Active Vitron-C 65-125 MG Oral Tablet (Iron-Vitamin C) Take 2 Tablets by mouth in the morning. 0 Active Bumetanide 1 MG Oral Tablet (Bumex) Take 1 Tablet by mouth in the morning. Do not start before May 03, 2023. 60 Tablet 3 05/03/2023 Active Apixaban 5 MG Oral Tablet (Eliquis) Take 1 Tablet by mouth in the morning and 1 Tablet before bedtime. 60 Tablet 3 05/02/2023 Active Atorvastatin Calcium 80 MG Oral Tablet (Lipitor) Take 1 Tablet by mouth in the morning. 30 Tablet 0 05/02/2023 Active Calcium Carbonate-Vitamin D 600-5 MG-MCG Oral Tablet Take 1 Tablet by mouth in the morning. 0 05/02/2023 Active Citalopram Hydrobromide 40 MG Oral Tablet (CeleXA) Take 1 Tablet by mouth in the morning. 0 05/02/2023 Active Finasteride 5 MG Oral Tablet (Proscar) Take 1 Tablet by mouth in the morning. 0 05/02/2023 Active documented as of this encounter (statuses as of 08/18/2023) Active Problems Problem Noted Date Diagnosed Date Acute on chronic respiratory failure with hypoxi a 04/29/2023 Pneumonia 04/29/2023 Heart failure with acute decompensation, type un known 04/29/2023 Cardiomyopathy 04/29/[address] venous catheter in place, permanent 04/08 HFrEF (heart failure with reduced ejection fract ion) 04/29/2023 COPD (chronic obstructive pulmonary disease) Interstitial lung disease 04/29/2023 Paroxysmal atrial fibrillation 04/29/2023 Anemia 06/20/2022 Type 2 diabetes mellitus 02/08/2022 Moderate malnutrition 04/11/2019 Febrile neutropenia 04/10/2019 Sepsis 04/10/2019 Atherosclerosis of coronary artery 04/10/2019 CKD (chronic kidney disease) 04/10/2019 Lymphoma 04/10/2019 PVD (peripheral vascular disease) 04/10/2019 HTN (hypertension) 04/10/2019 HLD (hyperlipidemia) 04/10/2019 ADVANCE DIRECTIVE INFORMATION 06/07/2009 Overview: No, Advance Directive brochure offered , patient declined. documented as of this encounter (statuses as of 08/18/2023) Immunizations Name Administration Dates Next Due Pneumococcal Polysaccharide PPV23 (Pneumovax) Seasonal Influenza, Split, IIV3, With Preserve, Inj 07/22/2008 documented as of this encounter Social History Tobacco Use Types Packs/Day Years Used Date Smoking Tobacco: Former Cigarettes 1 35 Smokeless Tobacco: Current Snuff Alcohol Use Standard Drinks/Week Comments Yes 0 (1 standard drink = 0.6 oz pur e alcohol) Infrequent Sex and Gender Information Value Date Recorded Sex Assigned at Not on file Gender Identity Not on file Sexual Orientation Not on file Job Start Date Occupation Industry Not on file Not on file Not on file documented as of this encounter Functional Status Functional Status Response Date of Assess ment Are you deaf or do you have serious difficulty h earing? Yes-[employer] 04/29/2023 Are you blind or do you have serious difficulty seeing, even when wearing glasses? No 04/29/2023 Do you have serious difficul ty walking or climbing stairs? (5 years old or older) No 04/29/2023 Do you have difficulty dress ing or bathing? (5 years old or older) No 04/29/2023 Because of a physical, menta l, or emotional condition, do you have difficulty doing errands alone such as visiting a doctor s office or shopping? (15 years old or older) No 04/29/20 Cognitive Status Response Date of Assessm ent Because of a physical, menta l, or emotional condition, do you have serious difficulty concentrating, remembering, or making decisions? (5 years old or older Yes 04/29/2023 documented as of this encounter Miscellaneous Notes * Telephone Encounter - Katie Lomas OSA - 05/22/2023 2:48 PM EDT Pt rescheduled for 05/23. Pt aware of date, time, & location. * Telephone Encounter - Abby Feliciano OSA - 05/19/2023 2:45 PM EDT Pt's has called to let us know that pt is unable to have his treatment. As she stated he has other appoitments he has to keep for Sunday. She has requested a call back to help him get rescheduled. Did feel comfortable cancelling the apptin case they changed their minds. @ [phone] ZRS documented in this encounter Plan of Treatment Health Maintenance Due Date Last Done Comments COVID-19 Vaccine (#1) 1950 Depression Screening 1957 Alpha-1 Antitrypsin 1963 Diabetic Foot Exam 1963 Hepatitis C Screening 1963 DTaP,Tdap,and Td Vaccines (1 - Tdap) 02/07/1964 Zoster Vaccines (1 of 2) 02/07/1964 Hepatitis B (1 of 3 - Risk 3-dose series) 2005 Pneumococcal Vaccine: 65+ Years (2 - PCV) 07/22/2005 07/22/2004 *COPD SEVERITY VERIFIED BY PFT 05/02/2023 Influenza Vaccine (FLU shot) (#1) 2023 10/04/2022, 07/11/2018, 10/02/2017, Additional history exists HbA1c 01/10/2024 07/11/2023, 100 01/2023, 04/29/2023, Additional history exists Albumin/Creatinine Ratio 04/11/2024 04/11/2023, 0 01/2022 Diabetic Eye Exam 04/11/2024 04/11/2023 O2 ASSESSMENT COMPLETED IN PAST YEAR FOR COPD 05/23/2024 05/23/2023 GFR 07/11/2024 07/11/2023, 0 12/2022, 05/02/2023, Additional history exists GARDASIL-HPV IMMUNIZATION SERIES Aged Out No longer eligible based on patient's age to complete this topic MENINGOCOCCAL (MENACTRA/MENVEO) Aged Out No longer eligible based on patient's age to complete this topic documented as of this encounter Medical Devices Not on filedocumented as of this encounter Advance Directives Latest Code Status on File Code Status Date Activated Date Inactivated Comments Full Code 04/30/2023 10:11 AM 05/02/2023 6:39 PM This order reflects the patients wishes and were consensually agreed upon. Question Answer Comments Discussion of Advance Directives occurred with: Patient Code Status History Code Status Date Activated Date Inactivated Comments Limited Code 04/29/2023 3:37 PM 04/30/2023 10:11 AM This order reflects the patients wishes and were consensually agreed upon. Question Answer Comments Discussion of Advance Directives occurred with: Patient Does the patient have a Living Will? No Does the patient have Health Care Power of Equine Science Instructor? No Bag Valve Device? No Intubation? No Cardiac Compressions? Yes Defibrillation? Yes Synchronized Cardioversion? Yes External Pacemaker? Yes Cardiac Drugs? Yes Full Code 04/10/2019 5:17 PM 04/12/2019 4:18 PM This or noemi reflects the patients wishes and were consensually agreed upon. Question Answer Comments Discussion of Advance Directives occurred with: Not Discussed Does the patient have a Living Will? No Does the patient have Health Care Power of Equine Science Instructor? No Care Teams Engine Head Repairer Relationship Specialty Start Date End Date Vinod Pang Jr., DO [address] [facility] [place] [address] PCP - General 04/26/09 documented as of this encounter
--- OUTSIDE RECORDS SUMMARY | 2023-08-21 23:49 | External Medical Summary ---
Author Name Unknown Address Unknown Organization K1C:[facility] [address] [place] [address] Laboratory Report Ordering Provider Test Date Status MATILDADEMETRIO 07/11/2023 06:34 Final Observation Date Value Abnormality Reference (Units ) Status HbA1C 07/11/2023 11:22 5.90 4.70-6.50 (%) Final MEAN GLUCOSE IN mg/dL/A1c%<b r/> POOR CONTROL FAIR CONTROL GOOD CONTROL EXCELLENT CONTROL
360-14 210-9 180-8 120-6
330-13 150-7 90-5
300-12
270-11
240-10 Performing Location [facility] [address] [place] [address]
--- OUTSIDE RECORDS SUMMARY | 2023-08-21 23:49 | External Medical Summary ---
Author Name Unknown Address Unknown Organization K1C:[facility] [address] [place] [address] Laboratory Report Ordering Provider Test Date Status DEMETRIO GREY 07/11/2023 06:34 Final Observation Date Value Abnormality Reference (Units ) Status HbA1C 07/11/2023 11:22 5.90 4.70-6.50 (%) Final MEAN GLUCOSE IN mg/dL/A1c%<b r/> POOR CONTROL FAIR CONTROL GOOD CONTROL EXCELLENT CONTROL
360-14 210-9 180-8 120-6
330-13 150-7 90-5
300-12
270-11
240-10 Performing Location [facility] [address] [place] [address]
--- OUTSIDE RECORDS SUMMARY | 2023-08-21 23:49 | External Medical Summary ---
Author Name Unknown Address Unknown Organization K1C:[facility] [address] [place] [address] Laboratory Report Ordering Provider Test Date Status DEMETRIO GREY 07/11/2023 06:34 Final Observation Date Value Abnormality Reference (Units ) Status T4, Free 07/11/2023 10:25 0.94 0.75-1.54 (ng /dL) Final Performing Location [facility] [address] [place] [address]
--- OUTSIDE RECORDS SUMMARY | 2023-08-21 23:49 | External Medical Summary ---
Author Name Unknown Address Unknown Organization K1C:[facility] [address] [place] [address] Laboratory Report Ordering Provider Test Date Status MATILDADEMETRIO 07/11/2023 06:34 Final Observation Date Value Abnormality Reference (Units ) Status HbA1C 07/11/2023 11:22 5.90 4.70-6.50 (%) Final MEAN GLUCOSE IN mg/dL/A1c%<b r/> POOR CONTROL FAIR CONTROL GOOD CONTROL EXCELLENT CONTROL
360-14 210-9 180-8 120-6
330-13 150-7 90-5
300-12
270-11
240-10 Performing Location [facility] [address] [place] [address]
--- OUTSIDE RECORDS SUMMARY | 2023-08-21 23:49 | External Medical Summary ---
Author Name Unknown Address Unknown Organization K1C:[facility] [address] [place] [address] Laboratory Report Ordering Provider Test Date Status DEMETRIO GREY 07/11/2023 06:34 Final Observation Date Value Abnormality Reference (Units ) Status TSH 07/11/2023 10:23 2.12 0.50-6.00 (uI U/mL) Final Performing Location [facility] [address] [place] [address]
--- OUTSIDE RECORDS SUMMARY | 2023-08-21 23:49 | External Medical Summary ---
Author Name Unknown Address Unknown Organization [facility]:[address] [place] [address] Laboratory Report Ordering Provider Test Date Status DEMETRIO GREY 07/11/2023 06:34 Final Observation Date Value Abnormality Reference (Units ) Status WBC 07/11/2023 09:51 5.5 3.1-9.2 (10^3/M3) Final RBC 07/11/2023 09:51 3.68 Below low normal 4.00-5.80 (10^6/M3) Final Hemoglobin 07/11/2023 09:51 11.1 Below low normal 12.5-17.5 (GR/DL) Final HCT 07/11/2023 09:51 33.6 Below low normal 37.5-52.5 (%) Final MCV 07/11/2023 09:51 91.4 82.6-95.8 (CU MICR) Final MCH 07/11/2023 09:51 30.2 27.9-32.9 (AJ GR) Final MCHC 07/11/2023 09:51 33.1 32.6-35.4 (%) Final RDW 07/11/2023 09:51 23.2 Above high normal 11.4-14.6 (%) Final PLT 07/11/2023 09:51 217 140-350 (10^3/M3) Final MPV 07/11/2023 09:51 7.5 7.0-10.6 (CU MICR) Final Neutrophils/100 leukocytes in Blood 07/11/2023 10:15 66.3 40.0-75.0 (%) Final Lymphs % 07/11/2023 10:15 9.6 Below low normal 17.0-45.0 (%) Final Monos 07/11/2023 10:15 14.6 Above high normal 1.0-11.0 (%) Final %EOS 07/11/2023 10:15 8.8 Above high normal 0.0-6.0 (%) Final Basos 07/11/2023 10:15 0.7 0.0-2.0 (%) Final Neutrophils [#/volume] in Semen by Manual count 07/11/2023 10:15 3.6 1.5-8.0 (10^3/M3) Final Lymphs % 07/11/2023 10:15 0.5 Below low normal 0.8-3.2 (10^3/M3) Final Monos 07/11/2023 10:15 0.8 0.0-0.8 (10^3/M3) Final #EOS 07/11/2023 10:15 0.5 Above high normal 0.0-0.4 (10^3/m3) Final #BASO 07/11/2023 10:15 0.0 0.0-0.2 (10^3/m3) Final Performing Location [facility] [address] [place] [address]
--- OUTSIDE RECORDS SUMMARY | 2023-08-21 23:49 | External Medical Summary ---
Author Name Unknown Address Unknown Organization [facility]:[address] [place] [address] Laboratory Report Ordering Provider Test Date Status DEMETRIO GREY 07/11/2023 06:34 Final Observation Date Value Abnormality Reference (Units ) Status Cholesterol 07/11/2023 11:27 123 0-200 (MG/D L) Final CHOLESTEROL
Less than 2 00mg/dl Low risk
201-239 mg/dl Borderline risk
Equal to or greater 240mg/dl High risk Triglyceride 07/11/2023 11:27 66 0-150 (MG/ DL) Final TRIGLYCERIDES
Less than 150mg/dl Normal
150-199mg/dl Borderline
200-499mg/dl High
Greater than 500mg/dl Very High HDL 07/11/2023 11:27 41 SEE COMMENT ( MG/DL) Final HDL
<40mg/dl Elevated R isk
41-59mg/dl Risk
>=60mg/dl Least Risk Cholesterol in LDL [Mass/vol ume] in Serum or Plasma 07/11/2023 11:27 66 0-130 (MG/DL) Final LDL
<100mg/dl Optimal<b r/> 100-129mg/dl Near Optimal
130-159mg/dl Borderline High
160-189mg/dl High
>=190 Very High Cholesterol in VLDL [Mass/vo lume] in Serum or Plasma 07/11/2023 11:27 13.2 SEE COMMENT (MG/DL ) Final VLDL
Less than 30mg/dl Normal HDL 07/11/2023 11:27 3.0 SEE COMMENT ( RATIO) Final CHOL/HDL
<4.0 Optimal<b r/> 4.0-5.0 Borderline
>6.0 High Risk NON-HDL 07/11/2023 11:27 82 SEE COMMENT ( MG/DL) Final NON-HDL
30mg/dl higher than LDL Target Performing Location [facility] [address] [place] [address]
--- OUTSIDE RECORDS SUMMARY | 2023-08-21 23:50 | External Medical Summary | Continuity of Care Document ---
Author Name [facility] Address [address] [place] [address] Phone [phone] Organization [facility], Address [address] [place] [address] Phone [phone] Care Team Providers Care Nutritionist Name Role Phone Gastroenterology - Gastroenterology Care Team In formation Professional Nursing Assistant Unavailable Fermín Quick MD Care Team Information Receiv er [phone] Rory Hodge Care Team Information Professional Nursing Assistant [phone] Nixon Aden MD Care Team Information Professional Nursing Assistant [phone] Abran Eugene JR - Interven tional Pain Medicine Care Team Information Professional Nursing Assistant [phone] Medardo Trinidad MD Care Team Information Receive r [phone] Sinan Marks MD Care Team Information Receive r [phone] Problems Active Problems Provider Date Chronic kidney disease stage 4 O nset: Note: Document: 02/14/19 - N ephrology Consult Essential hypertension Vinod Pang JR, DO Onset: 09/01/2015 Anemia Vinod Pang JR, DO Onset: 02/23/2009 Peripheral vascular disease Vinod Pang JR , DO Onset: 06/24/2009 Mixed hyperlipidemia Vinod Pang JR, DO On set: 09/01/2015 Pure hypercholesterolemia Vinod Pang JR DO Onset: 02/23/2009 Hypothyroidism Vinod Pang JR, DO Onset: 09/01/2015 Deep venous thrombosis of lower extremity Becki Pang JR, DO Onset: 09/01/2015 Metabolic syndrome X Vinod Pang JR DO On set: 06/03/2012 Osteoarthritis Vinod Pang JR DO Onset: 09/01/2015 Vitamin D deficiency Vinod Pang JR DO On set: 09/01/2015 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 Vinod Pang JR DO Onset: 02/23/2009 Moderate recurrent major depression Vinod william JR DO Onset: 08/16/2010 Obstructive sleep apnea syndrome Vinod hammond JR DO Onset: 09/17/2012 Liver mass Vinod Pang JR DO Onset: 12/06/2018 Lymphoma Onset: 0 Note: Large B Cell Lymphoma Document: 12/19/18 - Oncology Consultation Diffuse large B-cell lymphom a, extranodal and solid organ sites Vinod Pang JR DO Onset: 03/24/2020 History of SARS-CoV-2 Pierre Costa PA-C Onset: 03/04/2021 Type 2 diabetes mellitus Patel Reis JR O Onset: 02/08/2022 Peripheral vascular disorder due to diabetes mellitus Vinod Pang JR DO Onset: 04/11/2023 Peripheral angiopathy due to diabetes mellitus Vinod Pang JR DO Onset: 04/11/2023 Extrinsic allergic alveolitis Vinod Pang JR, DO Onset: 04/11/2023 Hyperparathyroidism due to r enal insufficiency Vinod Pang JR DO Onset: 04/11/2023 Social History Type Date Description Comments Sex Unknown Tobacco Use Reviewed: 05/10/23 Never Smoked Cigarette s Tobacco Use Reviewed: 05/10/23 Never Smoked Cigars Tobacco Use Reviewed: 05/10/23 Never Smoked A Pipe Smoking Status Reviewed: 05/10/23 Never Smoked A Pipe Smokeless Tobacco 05/10/2023 Current Smokel ess Tobacco User, Uses 9 Times Daily ETOH Use Denies alcohol use Recreational Drug Use Denies Drug Use Allergies and adverse reactions Description No Known Drug Allergies Medications Active Medications SIG Qnty Indications Ordering Provider Date Clopidogrel Dxnyjseqg02ek Tablets Take One (1) Tablet By Mouth Every Day 30tabs I73.9 Vinod Pang JR DO 08/24/2021 Citalopram Whgfotsdxydx47yo Tablets take one 1/2 tablets by mouth every day 135tabs F33.1 Vinod Pang JR, DO 06/23/2019 Vqxiutyltny3vb Tablets Take One Tablet By Mouth Once Daily 30tabs Vinod Pang JR, DO 11/12/2017 Oxycodone-Acetaminoph en7.5-325mg Tablets take one tablet every 6 h as needed pain--ongoing therapy 60tabs Vinod Pang JR, DO 01/22/2014 Atorvastatin Oqpwdyp22px Tablets Take One Tablet By Mouth AT Bedtime 90tabs E78.0 Vinod Pang JR, DO E78.00 Fagvka21514Ftsm/ML Solution 40,000 units monthly Unknown Mkeyxnqvco07da Tablets 1 by mouth twice a day 180tabs Unknown Pantoprazole Qpaeaz22go Tablets DR 1 by mouth every day Unknown Mvseogm9pi Tablets 1 by mouth twice a day Unknown Tamsulosin HCL0.4mg Capsules 1 by mouth every day Unknown Edjyknrtxf6dp Tablets 1 tab daily Unknow n History Medications Nitrofurantoin Monohyd Hssxc768lr Capsules take 1 capsule twice daily for 10 days 20caps Gisella Lisa MD, PhD 03/23/2023 - 04/10/2023 Swdugcerpf205fe Tablets take 1 tab by mouth twice a day x 14 days 28tabs Vinod Pang JR, DO 01/10/2023 - 01/29/2023 Medications Administered in Office Medication SIG Qnty Indications Ordering Provider Date Rocephin Inj 250 MGInjection E pilar Mcbride MD 09/01/2020 Injection Methylprednisolone Acetate 20 MGInjection Jordan Tao 11/16/2017 Rocephin Inj 250 MGInjection Vinod Pang JR, DO 02/15/2010 Influ A (H1N1) VaccineInjection Vinod Pang JR, DO 10/21/2009 Immunizations CPT Code Status Date Vaccine Lot # [id number] Given 10/04/2022 Influenza Vaccine High Do se 0.5ML Age 65 & > [id number] U-FLU Given 10/04/2022 Influenza,Unspecified 55064 Given 08/11/2020 Influenza Vacci ne-Administered at another facility U-FLU Given 08/11/2020 Influenza,Unspecified U-FLU Given 08/23/2019 Influenza,Unspecified 60532 Given 08/23/2019 Influenza Vacci ne-Administered at another facility 02565 Given 07/11/2018 Influenza Vac, Split, Preservative Free High Dose Age 65 & > [id number] 74455 Given 10/02/2017 Pneumococcal Conjugate-Pr evnar 13 34168 Given 10/02/2017 Influenza Vac, Split, Preservative Free High Dose Age 65 & > [id number] Given 08/14/2016 Influenza Virus Vaccine, Quadrivalent, Im Use [id number] 79782 Given 09/01/2015 Influenza Vac, Split, Preservative Free High Dose Age 65 & > [id number] 23047 Given 09/01/2015 Pneumococcal Conjugate-Pr evnar 13 [id number] 99858 Given 07/21/2014 Influenza Vac, Split, Preservative Free High Dose Age 65 & > [id number] U-FLU Given 07/21/2014 Influenza,Unspecified 18082 Given 01/31/2014 Pneumococcal Vaccine/Pneu movax 23 06827 Given 07/17/2013 Influenza Vac, Split, Preservative Free High Dose Age 65 & > [id number] 89793 Given 07/24/2012 Influenza Vac, Split, Preservative Free High Dose Age 65 & > [id number] 12172 Given 07/04/2011 Influenza Vac, Split, Preservative Free High Dose Age 65 & > [id number] 84607 Given 08/16/2010 Pneumococcal Vaccine/Pneu movax 23 [id number] 06075 Given 10/21/2009 Influenza Vac, Split 3 Yr s And Up [id number] 02031 Given 07/24/2008 Influenza Vac, Split 3 Yr s And Up U-FLU Given 07/22/2008 Influenza,Unspecified 60426 Given 10/27/2004 Influenza Vac, Split 3 Yr s And Up 87414 Given 07/22/2004 Pneumococcal Vaccine/Pneu movax 23 [id number] Refused 04/11/2023 Moderna Sars-Co v-2 (Cov-19) vacc,100 mcg/ 0.5 mL 12Y+EMR Doc Only [id number] Refused 04/11/2023 Shingrix 65718 Refused 07/26/2021 Moderna Sars-Co v-2 (Cov-19) vacc,100 mcg/ 0.5 mL 12Y+EMR Doc Only [id number] Refused 09/28/2020 Tdap (Tetanus, diphtheria & acel. pertussis) Adacel or Boostrix 88392 Refused 09/28/2020 Shingrix 97464 Refused 08/19/2020 Influenza Virus Vaccine, Quadrivalent, Im Use Refused 07/11/2016 Influenza Vac, Split, Preservative Free High Dose Age 65 & > Vital Signs Date Vital Result Comment 05/10/2023 9:06am BP Systolic 128 mmHg BP Diastolic 76 mmHg Heart Rate 60 /min Respiratory Rate 18 /min Weight 190.00 lb Weight 86.184 kg 04/16/2023 9:29am BP Systolic 130 mmHg BP Diastolic 68 mmHg Body Temperature 97.8 F Heart Rate 76 /min Respiratory Rate 20 /min Weight 196.00 lb Weight 88.906 kg O2 % BldC Oximetry 99 % Results Test Acquired Date Facility Test Result H/L Range N ote Laboratory test finding 07/06/2023 [facility] [address] [place] [address] [phone] HGB <pending> HCT <pending> CBC No Diff 05/10/2023 [facility] [address] [place], [place] [id number] [phone] WBC 9.1 10^3/M3 3.1-9.2 RBC 3.86 10^6/M3 Low 4.00-5.80 HGB 10.9 GR/DL Low 12.5-17.5 HCT 34.5 % Low 37.5-52.5 MCV 89.2 CUMICR 82.6-95.8 MCH 28.1 PICOGR 27.9-32.9 MCHC 31.6 % Low 32.6-35.4 RDW 18.8 % High 11.4-14.6 PLT 284 10^3/M3 140-350 MPV 7.7 CUMICR 7.0-10.6 BMP 05/10/2023 [facility] [address] [place], [place] [id number] [phone] Glucose 98 mg/dL 70-110 BUN 45 mg/dL High 6-25 Creatinine 3.0 mg/dL High 0.7-1.3 Sodium 141 mEq/L 135-145 Potassium 4.5 mEq/L 3.5-5.0 Chloride 105 mEq/L 95-107 Co-2 23 mEq/L Low 24-31 Calcium 8.5 mg/dL 8.5-10.6 GFR 22 ML/MIN/1.73SQM Low >60 CBC W/Diff 04/16/2023 [facility] [address] [place] [address] [phone] WBC 6.5 10^3/M3 3.1-9.2 RBC 3.57 10^6/M3 Low 4.00-5.80 HGB 10.0 GR/DL Low 12.5-17.5 HCT 31.3 % Low 37.5-52.5 MCV 87.7 CUMICR 82.6-95.8 MCH 27.9 PICOGR 27.9-32.9 MCHC 31.9 % Low 32.6-35.4 RDW 17.5 % High 11.4-14.6 PLT 263 10^3/M3 140-350 MPV 7.5 CUMICR 7.0-10.6 %Neut 71.5 % 40.0-75.0 %Lymph 6.1 % Low 17.0-45.0 %Beltrami 11.1 % High 1.0-11.0 %Eos 10.6 % High 0.0-6.0 %Baso 0.7 % 0.0-2.0 #Neut 4.7 10^3/M3 1.5-8.0 #Lymph 0.4 10^3/M3 Low 0.8-3.2 #Beltrami 0.7 10^3/M3 0.0-0.8 #Eos 0.7 10^3/m3 High 0.0-0.4 #Baso 0.0 10^3/m3 0.0-0.2 Laboratory test finding 04/16/2023 [facility] [address] [place] [address] [phone] Uric Acid 5.3 mg/dL 2.5-7.5 R.A. Factor <10.0 IU/mL 0.0-20.0 Raina NEGATIVE Sed Rate 37 High 0-15 Lyme Disease AB W/RFX To Blot (Igg,Igm) 04/16/[address] [place] [address] [phone] Lyme AB Screen <0.90 index Normal 1 Laboratory test finding 04/16/[address] [place] [address] [phone] Clinical PDF Report [id number] SEE IMAGE Microalbumin Urine 04/11/2023 [facility] [address] [place] [address] [phone] Urine Creat 74 mg/dL Comment Microalbumin 7.8 mg/dL High 0.0-1.8 2 ug/mgCREATININE 105 ug/mg High 0-29 CBC W/Diff 04/04/2023 [facility] [address] [place] [address] [phone] WBC 6.1 10^3/M3 3.1-9.2 RBC 3.34 10^6/M3 Low 4.00-5.80 HGB 9.4 GR/DL Low 12.5-17.5 HCT 29.3 % Low 37.5-52.5 MCV 88.0 CUMICR 82.6-95.8 MCH 28.3 PICOGR 27.9-32.9 MCHC 32.2 % Low 32.6-35.4 RDW 16.5 % High 11.4-14.6 PLT 285 10^3/M3 140-350 MPV 7.9 CUMICR 7.0-10.6 %Neut 68.7 % 40.0-75.0 %Lymph 7.8 % Low 17.0-45.0 %Beltrami 9.3 % 1.0-11.0 %Eos 13.1 % High 0.0-6.0 %Baso 1.1 % 0.0-2.0 #Neut 4.2 10^3/M3 1.5-8.0 #Lymph 0.5 10^3/M3 Low 0.8-3.2 #Beltrami 0.6 10^3/M3 0.0-0.8 #Eos 0.8 10^3/m3 High 0.0-0.4 #Baso 0.1 10^3/m3 0.0-0.2 Comp. Met 04/04/2023 [facility] [address] [place] [address] [phone] Glucose 116 mg/dL High 70-110 BUN 45 mg/dL High 6-25 Creatinine 2.7 mg/dL High 0.7-1.3 Sodium 144 mEq/L 135-145 Potassium 4.4 mEq/L 3.5-5.0 Chloride 109 mEq/L High 95-107 Co-2 24 mEq/L 24-31 Alk Phos 53 IU/L 43-122 Alt(SGPT) 9 IU/L Low 10-40 Ast(Sgot) 11 IU/L 3-42 T.Bilirubin 0.4 mg/dL 0.1-1.3 Calcium 8.8 mg/dL 8.5-10.6 Tot.Protein 5.8 g/dL 5.8-8.0 Albumin 3.7 g/dL 3.0-5.2 Globulin 2.1 g/dL 2.0-3.4 GFR 24 ML/MIN/1.73SQM Low >60 Hba1c 04/04/2023 [facility] [address] [place] [address] [phone] A1c 5.70 % 4.70-6.50 3 Laboratory test finding 04/04/2023 [facility] [address] [place], [place] [phone] Ferritin 50.30 ng/mL 22.00-415.0 Iron Panel([employer]) 04/04/2023 [facility] [address] [place] [address] [phone] Iron 33 g /dL Low 45-140 % Saturation 11 % Low 30-35 Lipid 04/04/2023 [facility] [address] [place] [address] [phone] Cholesterol 121 mg/dL 0-200 4 Triglyceride 71 mg/dL 0-150 5 HDLD 38 mg/dL See Comment 6 Measured LDL 70 mg/dL 0-130 7 Calc VLDL 14.2 mg/dL See Comment 8 Chol/HDL 3.2 RATIO See Comment 9 Non-HDL 83 mg/dL See Comment 10 Laboratory test finding 04/04/2023 [facility] [address] [place] [address] [phone] TSH 2.51 uIU/mL 0.50-6.00 FRT4 0.79 ng/dL 0.75-1.54 Tibc 04/04/2023 [facility] [address] [place] [address] [phone] Tibc 297 g /dL 260-400 Transferrin 212 mg/dL 200-400 Urine Isolate#1 03/19/2023 [facility] [address] [place] [address] [phone] Isolate #1 Enterococcus mar <SEE NOTE> 11 Ampicillin >8 R Ciprofloxacin >2 R Levofloxacin >4 R Linezolid <=2 S Nitrofurantoin <=32 S Penicillin >8 R Rifampim >2 R Tetracycline >8 R Vancomycin >16 R Urinalysis 03/19/2023 [facility] [address] [place] [address] [phone] Color LIGHT-YELLOW Appearance CLEAR Clear Spec.Grav. 1.010 1.005-1.025 Leukocytes LARGE Abnormal Negative Nitrite NEGATIVE Negative PH 6.0 6.0-7.5 Protein TRACE Abnormal Negative Urine Glucose NEGATIVE Negative Ketone NEGATIVE Negative Urobilinogen NORMAL E.U./DL Normal Bilirubin NEGATIVE Negative Blood NEGATIVE Negative WBC-U TNTC /HPF Abnormal 0-5/HPF RBC-U 3-5 /HPF 0-5/HPF Bacteria 1+ Abnormal None Seen Squamous 0-2 /HPF 0-5/HPF Laboratory test finding 03/19/2023 [facility] [address] [place] [address] [phone] BNP 904.0 pg/mL Critical high 0.0-100.0 BMP 03/19/2023 [facility] [address] [place], [place] [address] [phone] Glucose 132 mg/dL High 70-110 BUN 43 mg/dL High 6-25 Creatinine 3.1 mg/dL Critical high 0.7-1.3 12 Sodium 141 mEq/L 135-145 Potassium 4.0 mEq/L 3.5-5.0 Chloride 105 mEq/L 95-107 Co-2 22 mEq/L Low 24-31 Calcium 9.1 mg/dL 8.5-10.6 GFR 21 ML/MIN/1.73SQM Low >60 CBC W/Diff 03/19/2023 [facility] [address] [place], [place] [phone] WBC 6.3 10^3/M3 3.1-9.2 RBC 3.06 10^6/M3 Low 4.00-5.80 HGB 9.0 GR/DL Low 12.5-17.5 HCT 29.4 % Low 37.5-52.5 MCV 95.8 CUMICR 82.6-95.8 MCH 29.4 PICOGR 27.9-32.9 MCHC 30.7 % Low 32.6-35.4 RDW 17.6 % High 11.4-14.6 PLT 266 10^3/M3 140-350 MPV 8.2 CUMICR 7.0-10.6 %Neut 76.3 % High 40.0-75.0 %Lymph 7.3 % Low 17.0-45.0 %Beltrami 8.7 % 1.0-11.0 %Eos 7.0 % High 0.0-6.0 %Baso 0.7 % 0.0-2.0 #Neut 4.8 10^3/M3 1.5-8.0 #Lymph 0.5 10^3/M3 Low 0.8-3.2 #Beltrami 0.5 10^3/M3 0.0-0.8 #Eos 0.4 10^3/m3 0.0-0.4 #Baso 0.0 10^3/m3 0.0-0.2 Laboratory test finding 03/19/2023 [facility] ([facility] Test) Sars Rna QL PCR - In Office Not Detected. Urine Culture 03/19/2023 [facility] [address] [place], [place] [address] [phone] Urine Source URINE Total Col Count >100,000 COL/CC Renal Panel 02/28/2023 [facility] [address] [place], [place] [address] [phone] Glucose 96 mg/dL 70-110 13 BUN 56 mg/dL High 6-25 Creatinine 2.9 mg/dL High 0.7-1.3 Sodium 142 mEq/L 135-145 Potassium 4.4 mEq/L 3.5-5.0 Chloride 109 mEq/L High 95-107 Co-2 23 mEq/L Low 24-31 Calcium 8.4 mg/dL Low 8.5-10.6 Phosphorus 3.3 mg/dL 2.5-4.8 Albumin 3.5 g/dL 3.0-5.2 GFR 22 Low >60 CBC No Diff 02/28/2023 [facility] [address] [place] [address] [phone] WBC 5.9 10^3/M3 3.1-9.2 RBC 2.90 10^6/M3 Low 4.00-5.80 HGB 8.6 GR/DL Low 12.5-17.5 HCT 27.9 % Low 37.5-52.5 MCV 96.3 CUMICR High 82.6-95.8 MCH 29.6 PICOGR 27.9-32.9 MCHC 30.8 % Low 32.6-35.4 RDW 18.5 % High 11.4-14.6 PLT 238 10^3/M3 140-350 MPV 8.0 CUMICR 7.0-10.6 Laboratory test finding 02/28/2023 [facility] [address] [place] [address] [phone] Vitd-25Oh 46 ng/mL 30-100 Laboratory test finding 02/13/2023 [facility] [address] [place] [address] [phone] Magnesium 2.1 mg/dL 1.7-2.8 14 BMP 02/13/2023 [facility] [address] [place] [address] [phone] Glucose 99 mg/dL 70-110 15 BUN 59 mg/dL High 6-25 Creatinine 3.0 mg/dL High 0.7-1.3 Sodium 142 mEq/L 135-145 Potassium 3.8 mEq/L 3.5-5.0 Chloride 106 mEq/L 95-107 Co-2 27 mEq/L 24-31 Calcium 9.0 mg/dL 8.5-10.6 GFR 22 Low >60 Laboratory test finding 02/13/2023 [facility] [address] [place] [address] [phone] BNP 490.0 pg/mL Critical high 0.0-100.0 16 H & H 02/13/2023 [facility] [address] [place] [address] [phone] HGB 9.9 GR/DL Low 12.5-17.5 HCT 30.6 % Low 37.5-52.5 Renal Panel 02/05/2023 [facility] [address] [place] [address] [phone] Glucose 104 mg/dL 70-110 17 BUN 42 mg/dL High 6-25 Creatinine 3.0 mg/dL High 0.7-1.3 Sodium 150 mEq/L High 135-145 Potassium 4.9 mEq/L 3.5-5.0 Chloride 114 mEq/L High 95-107 Co-2 25 mEq/L 24-31 Calcium 8.9 mg/dL 8.5-10.6 Phosphorus 3.7 mg/dL 2.5-4.8 Albumin 3.8 g/dL 3.0-5.2 GFR 22 Low >60 CBC No Diff 02/05/2023 [facility] [address] [place] [address] [phone] WBC 5.1 10 3.1-9.2 RBC 3.28 10 Low 4.00-5.80 HGB 9.6 GR/DL Low 12.5-17.5 HCT 30.9 % Low 37.5-52.5 MCV 94.4 CUMICR 82.6-95.8 MCH 29.3 PICOGR 27.9-32.9 MCHC 31.1 % Low 32.6-35.4 RDW 17.8 % High 11.4-14.6 PLT 195 10 140-350 MPV 8.2 CUMICR 7.0-10.6 Laboratory test finding 02/05/2023 [facility] [address] [place] [address] [phone] Vitd-25Oh 38 ng/mL 30-100 1 Index Interpretation ----- < 0.90 Negative 0.90-1.09 Equivocal > 1.09 Positive As recommended by the Food and Drug Administration (FDA), all samples with positive or equivocal results in a Borrelia burgdorferi antibody screen will be tested using a blot method. Positive or equivocal screening test results should not be interpreted as truly positive until verified as such using a supplemental assay (e.g., B. burgdorferi blot). The screening test and/or blot for B. burgdorferi antibodies may be falsely negative in early stages of Lyme disease, including the period when erythema migrans is apparent. 2 *[facility] USES MICROALBUMIN/CREATINE RATIO : *<30 ug/mg CREATININE IS CLASSIFIED NORMAL *30-300 ug/mg CREATININE IS CLASSIFIED CLINICAL MICROALBUMINURIA *>300 ug/mg CREATININE IS CLASSIFIED CLINICAL ALBUMINURIA CLASSIFICATION OF A PATIENT SHOULD BE BASED ON TWO OF THREE ABNORMAL RESULTS COLLECTED WITHIN A 3 TO 6 MONTH TIME FRAME* 3 MEAN GLUCOSE IN mg/d L/A1c% POOR CONTROL FAIR CONTROL GOOD CONTROL EXCELLENT CONTROL 360-14 210-9 180-8 120-6 330-13 150-7 90-5 300-12 270-11 240-10 4 CHOLESTEROL Less than 200mg/dl Low risk 201-239 mg/dl Borderline risk Equal to or greater 240mg/dl High risk CHOLESTEROL COMMENTS REPORT FAXED TO DOCTOR, REQUESTED ON REQUISITION. 04.04.23 ESEQUIEL 5 TRIGLYCERIDES Less than 150mg/dl Normal 150-199mg/dl Borderline 200-499mg/dl High Greater than 500mg/dl Very High 6 HDL <40mg/dl Elevated Risk 41-59mg/dl Risk >=60mg/dl Least Risk 7 LDL <100mg/dl Optimal 100-129mg/dl Near Optimal 130-159mg/dl Borderline High 160-189mg/dl High >=190 Very High 8 VLDL Less than 30mg/dl Normal 9 CHOL/HDL <4.0 Optimal 4.0-5.0 Borderline >6.0 High Risk 10 NON-HDL 30mg/dl higher than LDL Target 11 Enterococcus faecium VRE 12 CRITICAL RESULTS LUCI IFIED, FAXED, AND CALLED TO TANK JACKSON @ 12:10. 03/20/23 13 REPORT FAXED TO DOCT OR, REQUESTED ON REQUISITION.5/25/23 LM 14 Please fax results t chandrika Baez PA-C [phone] F- [phone] 15 REPORT FAXED TO DOCT OR, REQUESTED ON REQUISITION.02/14/23 LM 16 CRITICAL RESULTS LUCI IFIED, FAXED, AND CALLED TO LASHON HENRY @ 4:09. 02/13/23 17 REPORT FAXED TO DOCT OR, REQUESTED ON REQUISITION. 02.06.23 ESEQUIEL Procedures Date Code Description Status 07/06/2023 82405 Venipuncture Routine Complet ed 05/10/2023 14757 Venipuncture Routine Complet ed 05/10/2023 1111F D/C Medications Reconciled W/Current Medications In Outpt MR Completed 05/04/2023 1111F D/C Medications Reconciled W/Current Medications In Outpt MR Completed 04/16/2023 63003 Pulse Oximetry Single Determ ination Completed 04/16/2023 44173 Venipuncture Routine Complet ed 04/11/2023 3078F PVRP Diastolic BP <80 mmHg C ompleted 04/11/2023 1100F PT Screened Futu re Fall Risk >/=2 Falls In Past Yr/1 W/Injury Completed 04/11/2023 3074F PVRP Systolic BP <130 mmHg C ompleted 04/11/2023 3288F Fall Risk Assessment Documen awais Completed 04/11/2023 3725F Screening Depression Perform ed Completed 04/11/2023 19601 Fundus Eye Exam Completed 04/04/2023 73682 Venipuncture Routine Complet ed 03/19/2023 30644 Venipuncture Routine Complet ed 02/28/2023 21362 Venipuncture Routine Complet ed 02/13/2023 72407 Venipuncture Routine Complet ed 01/15/2023 1111F D/C Medications Reconciled W/Current Medications In Outpt MR Completed 01/12/2023 1111F D/C Medications Reconciled W/Current Medications In Outpt MR Completed Medical Devices Description No Information Available Encounters Type Date Location Provider Dx Diagnosis Office Visit 05/10/2023 9:00a [place] Vinod Pang JR, DO J96.01 Acute respiratory failure with hypoxia J18.9 Pneumonia, unspecifi ed organism F33.1 Major depressive dis order, recurrent, moderate Office Visit 04/16/2023 9:15a [place] Vinod Pang JR, DO M15.9 Polyosteoarthritis, unspecified R05.9 Cough, unspecified Office Visit 04/11/2023 [place], DO Z00.01 Encounter for general adult medical exam w abnormal findings 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 E11.51 Type 2 diabetes w di abetic peripheral angiopath w/o gangrene E11.59 Type 2 diabetes guido itus with oth circulatory complications I73.9 Peripheral vascular disease, unspecified N18.4 Chronic kidney disea se, stage 4 (severe) I10 Essential (primary) hypertension E03.9 Hypothyroidism, unsp ecified E78.00 Pure hypercholestero lemia, unspecified J67.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 N25.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arat hyroidism of renal origin C83.39 Diffuse large B-cell lymphoma, extrnod and solid organ sites 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 Office Visit 03/19/2023 1:00p [place] Adam R Ohnm acht, DO R06.02 Shortness of breath Office Visit 01/15/2023 11:00a [place] Pierre Watkins op, PA-C N40.1 Benign prostatic hyperplasia with lower urinary tract symp A41.50 Gram-negative sepsis , unspecified Assessments Date Code Description Provider 07/06/2023 N18.9 Chronic kidney disease, unsp ecified Lab - [place] 05/10/2023 J96.01 Acute respiratory failure wi th hypoxia Vinod Pang JR, DO 05/10/2023 J18.9 Pneumonia, unspecified organ ism Vinod Pang JR, DO 05/10/2023 F33.1 Major depressive disorder, recurrent, moderate Vinod Pang JR, DO 04/16/2023 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 Vinod Pang JR, DO 04/16/2023 R05.9 Cough, unspecified Vinod Pang JR, DO 04/11/2023 Z00.01 Encounter for [facility] adult medical examination with abnormal findings Vinod Pang JR, DO 04/11/2023 E11.22 Type 2 diabetes mellitus with diabetic chronic kidney disease Vinod Pang JR, DO 04/11/2023 E11.51 Type 2 diabetes mellitus with diabetic peripheral angiopathy without gangrene Vinod Pang JR, DO 04/11/2023 E11.59 Type 2 diabetes mellitus with other circulatory complications Vinod Pang JR, DO 04/11/2023 I73.9 Peripheral vascular disease, unspecified Vinod Pang JR, DO 04/11/2023 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, stag e 4 (severe) Vinod Pang JR, DO 04/11/2023 I10 Essential (primary) hyperten lindy Vinod Pang JR, DO 04/11/2023 E03.9 Hypothyroidism, unspecified Vinod Pang JR, DO 04/11/2023 E78.00 Pure hypercholesterolemia, u nspecified Vinod Pang JR, DO 04/11/2023 J67.8 Hypersensitivity pneumonitis due to other organic dusts Vinod Pang JR, DO 04/11/2023 N25.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 arathyroidism of renal origin Vinod Pang JR, DO 04/11/2023 C83.39 Diffuse large B- cell lymphoma, extranodal and solid organ sites Vinod Pang JR, DO 04/11/2023 E11.21 Type 2 diabetes mellitus with diabetic nephropathy Vinod Pang JR, DO 04/04/2023 N25.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 arathyroidism of renal origin Vinod Pang JR, DO 04/04/2023 N25.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 arathyroidism of renal origin [facility] - [place] 04/04/2023 E78.00 Pure hypercholesterolemia, u nspecified Vinod Pang JR, DO 04/04/2023 E78.00 Pure hypercholesterolemia, u nspecified [facility] - [place] 04/04/2023 E88.81 Metabolic syndrome Vinod Pang JR, DO 04/04/2023 E88.81 Metabolic syndrome [facility] [place] 04/04/2023 D64.9 Anemia, unspecified Vinod Pang JR, DO 04/04/2023 E11.21 Type 2 diabetes mellitus with diabetic nephropathy Vinod Pang JR, DO 03/19/2023 R06.02 Shortness of breath Migel hagen, DO 02/28/2023 N17.9 Acute kidney failure, unspec ified Vinod Pang JR, DO 02/28/2023 N17.9 Acute kidney failure, unspec ified [facility] - [place] 02/28/2023 E55.9 Vitamin D deficiency, unspec ified Vinod Pang JR, DO 02/28/2023 E55.9 Vitamin D deficiency, unspec ified [facility] - [place] 02/28/2023 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, stag e 4 (severe) Vinod Pang JR, DO 02/28/2023 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, stag e 4 (severe) [facility] - [place] 02/13/2023 I50.9 Heart failure, unspecified K dusty Pang JR, DO 02/13/2023 I50.9 Heart failure, unspecified L [facility] - [place] 02/13/2023 E11.21 Type 2 diabetes mellitus with diabetic nephropathy Vinod Pang JR, DO 02/05/2023 N17.9 Acute kidney failure, unspec ified Vinod Pang JR, DO 02/05/2023 N17.9 Acute kidney failure, unspec ified [facility] - [place] 02/05/2023 E55.9 Vitamin D deficiency, unspec ified Vinod Pang JR, DO 02/05/2023 E55.9 Vitamin D deficiency, unspec ified [facility] - [place] 02/05/2023 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, stag e 4 (severe) Vinod Pang JR, DO 02/05/2023 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 Functional Status Description No Information Available Mental Status Description No Information Available Referrals Refer to Reason for Referral Status Appt Timothy e Rheumatology - [facility] Created [facility] [place] [address] [phone] Kenny Silva [address] [place] [address] Dr Hunter [phone]
--- OUTSIDE RECORDS SUMMARY | 2023-08-21 23:50 | External Medical Summary ---
Author Name Unknown Address Unknown Organization K1C:[facility] [address] [place] [id number] Laboratory Report Ordering Provider Test Date Status null,[facility] 07/06/2023 09:35 Final Observation Date Value Abnormality Reference (Units ) Status Hemoglobin 07/06/2023 15:22 11.1 Below low normal 12.5- 17.5 (GR/DL) Final Performing Location [facility] [address] [place] [id number]
--- OUTSIDE RECORDS SUMMARY | 2023-08-21 23:50 | External Medical Summary | Continuity of Care Document ---
Author Name MATILDA ATKINSON DO Address [address] [place] [address] [place] [address] Phone [phone] Organization [place] Address [address] [place] [address] RD, [place] [address] Phone [phone] Care Team Providers Care Field Sales Executive Name Role Phone GI - Gastroenterology Care Team Information Rece Fermín Harrell MD Care Team Information Receiv er [phone] Rory Hodge Care Team Information Vocational School Teacher + [phone] Nixon Aden MD Care Team Information Vocational School Teacher + [phone] Abran Eugene JR - Interven tional Pain Medicine Care Team Information Vocational School Teacher [phone] Medardo Trinidad MD Care Team Information Receive r [phone] Sinan Marks MD Care Team Information Receive r [phone] Problems Active Problems Provider Date Chronic kidney disease stage 4 O nset: Note: Document: 02/14/19 - N ephrology Consult Essential hypertension Matilda Atkinson JR, DO Onset: 09/01/2015 Anemia Matilda Atkinson JR, DO Onset: 02/23/2009 Peripheral vascular disease Matilda Atkinson JR , DO Onset: 06/24/2009 Mixed hyperlipidemia Matilda Atkinson JR, DO On set: 09/01/2015 Pure hypercholesterolemia Matilda Atkinson JR, DO Onset: 02/23/2009 Hypothyroidism Matilda Atkinson JR, DO Onset: 09/01/2015 Deep venous thrombosis of lower extremity Becki Atkinson JR, DO Onset: 09/01/2015 Metabolic syndrome X Matilda Atkinson JR, DO On set: 06/03/2012 Osteoarthritis Matilda Atkinson JR DO Onset: 09/01/2015 Vitamin D deficiency Matilda Atkinson JR, DO On set: 09/01/2015 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 Matilda Atkinson JR DO Onset: 02/23/2009 Moderate recurrent major depression Matilda william JR, DO Onset: 08/16/2010 Obstructive sleep apnea syndrome Matilda hammond JR DO Onset: 09/17/2012 Liver mass Matilda Atkinson JR, DO Onset: 12/06/2018 Lymphoma Onset: 0 Note: Large B Cell Lymphoma Document: 12/19/18 - Oncology Consultation Diffuse large B-cell lymphom a, extranodal and solid organ sites Matilda Atkinson JR, DO Onset: 03/24/2020 History of SARS-CoV-2 Pierre Costa PA-C Onset: 03/04/2021 Type 2 diabetes mellitus Patel Reis JR O Onset: 02/08/2022 Peripheral vascular disorder due to diabetes mellitus Matilda Atkinson JR DO Onset: 04/11/2023 Peripheral angiopathy due to diabetes mellitus Matilda Atkinson JR DO Onset: 04/11/2023 Extrinsic allergic alveolitis Matilda Atkinson JR DO Onset: 04/11/2023 Hyperparathyroidism due to r enal insufficiency Matilda Atkinson JR DO Onset: 04/11/2023 Social History Type [...] SIG Qnty Indications Ordering Provider Date Clopidogrel Smegiaryo03ry Tablets Take One (1) Tablet By Mouth Every Day 30tabs I73.9 Matilda L. Poly JR, DO 08/24/2021 Citalopram Umgqngbimbsb03jn Tablets take one 1/2 tablets by mouth every day 135tabs F33.1 Matilda Atkinson JR, DO 06/23/2019 Ijygxuzqqlc4dg Tablets Take One Tablet By Mouth Once Daily 30tabs Matilda Atkinson JR, DO 11/12/2017 Oxycodone-Acetaminoph en7.5-325mg Tablets take one tablet every 6 h as needed pain--ongoing therapy 60tabs Matilda Atkinson JR, DO 01/22/2014 Atorvastatin Wsdluhk55zc Tablets Take One Tablet By Mouth AT Bedtime 90tabs E78.0 Matilda Atkinson JR, DO E78.00 Nbfqmo69380Eqyp/ML Solution 40,000 units monthly Unknown Lxwkrhbfom76ig Tablets 1 by mouth twice a day 180tabs Unknown Pantoprazole Pzghqe54yo Tablets DR 1 by mouth every day Unknown Cclkynh2bt Tablets 1 by mouth twice a day Unknown Tamsulosin HCL0.4mg Capsules 1 by mouth every day Unknown Tazixmylfa0es Tablets 1 tab daily Unknow n History Medications Nitrofurantoin Monohyd Wpjsh627nt Capsules take 1 capsule twice daily for 10 days 20caps Gisella Lisa MD, PhD 03/23/2023 - 04/10/2023 Uqkexdhbfj457rr Tablets take 1 tab by mouth twice a day x 14 days 28tabs Matilda Atkinson JR, DO 01/10/2023 - 01/29/2023 Medications Administered in Office Medication SIG Qnty Indications Ordering Provider Date Rocephin Inj 250 MGInjection Chata Mcbride MD 09/01/2020 Injection Methylprednisolone Acetate 20 MGInjection Jordan Tao 11/16/2017 Rocephin Inj 250 MGInjection Matilda Atkinson JR, DO 02/15/2010 Influ A (H1N1) VaccineInjection Matilda Atkinson JR, DO 10/21/2009 Immunizations CPT Code Status Date Vaccine Lot # [id number] Given 10/04/2022 Influenza Vaccine High Do se 0.5ML [id number] U-FLU Given 10/04/2022 Influenza,Unspecified 74306 Given 08/11/2020 Influenza Vacci ne-Administered at another facility U-FLU Given 08/11/2020 Influenza,Unspecified U-FLU Given 08/23/2019 Influenza,Unspecified 87271 Given 08/23/2019 Influenza Vacci ne-Administered at another facility 22354 Given 07/11/2018 Influenza Vac, Split, Preservative Free High Dose Age 65 & > [id number] 49871 Given 10/02/2017 Pneumococcal Conjugate-Pr evnar 13 67038 Given 10/02/2017 Influenza Vac, Split, Preservative Free High Dose Age 65 & > [id number] Given 08/14/2016 Influenza Virus Vaccine, Quadrivalent, Im Use [id number] 29113 Given 09/01/2015 Influenza Vac, Split, Preservative Free High Dose Age 65 & > [id number] 56934 Given 09/01/2015 Pneumococcal Conjugate-Pr evnar 13 [id number] 88809 Given 07/21/2014 Influenza Vac, Split, Preservative Free High Dose Age 65 & > [id number] U-FLU Given 07/21/2014 Influenza,Unspecified 74492 Given 01/31/2014 Pneumococcal Vaccine/Pneu movax 23 61805 Given 07/17/2013 Influenza Vac, Split, Preservative Free High Dose Age 65 & > [id number] 08845 Given 07/24/2012 Influenza Vac, Split, Preservative Free High Dose Age 65 & > [id number] 83073 Given 07/04/2011 Influenza Vac, Split, Preservative Free High Dose Age 65 & > [id number] 63857 Given 08/16/2010 Pneumococcal Vaccine/Pneu movax 23 [id number] 34258 Given 10/21/2009 Influenza Vac, Split 3 Yr s And Up [id number] 20086 Given 07/24/2008 Influenza Vac, Split 3 Yr s And Up U-FLU Given 07/22/2008 Influenza,Unspecified 47945 Given 10/27/2004 Influenza Vac, Split 3 Yr s And Up 87106 Given 07/22/2004 Pneumococcal Vaccine/Pneu movax 23 44699 Refused 04/11/2023 Moderna Sars-Co v-2 (Covid-19) vaccine, 100 mcg/ 0.5 mL 12Y+ 39244 Refused 04/11/2023 Shingrix 85350 Refused 07/26/2021 Moderna Sars-Co v-2 (Covid-19) vaccine, 100 mcg/ 0.5 mL 12Y+ 18360 Refused 09/28/2020 Tdap (Tetanus, diphtheria & acel. pertussis) Adacel or Boostrix 48625 Refused 09/28/2020 Shingrix 80420 Refused 08/19/2020 Influenza Virus Vaccine, Quadrivalent, Im Use 36937 Refused 07/11/2016 Influenza Vac, Split, Preservative Free [...] Facility Test Result H/L Range N ote BMP 05/10/2023 [facility] [address] [place] [address] [phone] Glucose 98 mg/dL 70-110 BUN 45 mg/dL High 6-25 Creatinine 3.0 mg/dL High 0.7-1.3 Sodium 141 mEq/L 135-145 Potassium 4.5 mEq/L 3.5-5.0 Chloride 105 mEq/L 95-107 Co-2 23 mEq/L Low 24-31 Calcium 8.5 mg/dL 8.5-10.6 GFR 22 ML/MIN/1.73SQM Low >60 CBC No Diff 05/10/2023 [facility] 1 [place] [address] [phone] WBC 9.1 10^3/M3 3.1-9.2 RBC 3.86 10^6/M3 Low 4.00-5.80 HGB 10.9 GR/DL Low 12.5-17.5 HCT 34.5 % Low 37.5-52.5 MCV 89.2 CUMICR 82.6-95.8 MCH 28.1 PICOGR 27.9-32.9 MCHC 31.6 % Low 32.6-35.4 RDW 18.8 % High 11.4-14.6 PLT 284 10^3/M3 140-350 MPV 7.7 CUMICR 7.0-10.6 CBC W/Diff 04/16/2023 [facility] 1 [place] [address] [phone] WBC 6.5 10^3/M3 3.1-9.2 RBC 3.57 10^6/M3 Low 4.00-5.80 HGB 10.0 GR/DL Low 12.5-17.5 HCT 31.3 % Low 37.5-52.5 MCV 87.7 CUMICR 82.6-95.8 MCH 27.9 PICOGR 27.9-32.9 MCHC 31.9 % Low 32.6-35.4 RDW 17.5 % High 11.4-14.6 PLT 263 10^3/M3 140-350 MPV 7.5 CUMICR 7.0-10.6 %Neut 71.5 % 40.0-75.0 %Lymph 6.1 % Low 17.0-45.0 %Humphreys 11.1 % High 1.0-11.0 %Eos 10.6 % High 0.0-6.0 %Baso 0.7 % 0.0-2.0 #Neut 4.7 10^3/M3 1.5-8.0 #Lymph 0.4 10^3/M3 Low 0.8-3.2 #Humphreys 0.7 10^3/M3 0.0-0.8 #Eos 0.7 10^3/m3 High 0.0-0.4 #Baso 0.0 10^3/m3 0.0-0.2 Laboratory test finding 04/16/2023 [facility] [address] [place] [address] [phone] Uric Acid 5.3 mg/dL 2.5-7.5 R.A. Factor <10.0 IU/mL 0.0-20.0 Raina NEGATIVE Sed Rate 37 High 0-15 Lyme Disease AB W/RFX To Blot (Igg,Igm) 04/16/[address] [place] [address] [phone] Lyme AB Screen <0.90 index Normal 1 Laboratory test finding 04/16/2023 [facility] [address] [place] [address] [place] [address] [phone] Clinical PDF Report [id number] SEE IMAGE Microalbumin Urine 04/11/2023 [facility] [address] [place] [address] [phone] Urine Creat 74 mg/dL Comment Microalbumin 7.8 mg/dL High 0.0-1.8 2 ug/mgCREATININE 105 ug/mg High 0-29 CBC W/Diff 04/04/2023 [facility] [address] [place] [address] [phone] WBC 6.1 10^3/M3 3.1-9.2 RBC 3.34 10^6/M3 Low 4.00-5.80 HGB 9.4 GR/DL Low 12.5-17.5 HCT 29.3 % Low 37.5-52.5 MCV 88.0 CUMICR 82.6-95.8 MCH 28.3 PICOGR 27.9-32.9 MCHC 32.2 % Low 32.6-35.4 RDW 16.5 % High 11.4-14.6 PLT 285 10^3/M3 140-350 MPV 7.9 CUMICR 7.0-10.6 %Neut 68.7 % 40.0-75.0 %Lymph 7.8 % Low 17.0-45.0 %Humphreys 9.3 % 1.0-11.0 %Eos 13.1 % High 0.0-6.0 %Baso 1.1 % 0.0-2.0 #Neut 4.2 10^3/M3 1.5-8.0 #Lymph 0.5 10^3/M3 Low 0.8-3.2 #Humphreys 0.6 10^3/M3 0.0-0.8 #Eos 0.8 10^3/m3 High 0.0-0.4 #Baso 0.1 10^3/m3 0.0-0.2 Comp. Met 04/04/2023 [facility] [address] [place] [address] [phone] Glucose 116 mg/dL High 70-110 BUN 45 [...] GFR 24 ML/MIN/1.73SQM Low >60 Hba1c 04/04/2023 [facility] 1 [place], [place] [phone] A1c 5.70 % 4.70-6.50 3 Laboratory test finding 04/04/2023 [facility] [address] [place] [address] [phone] Ferritin 50.30 ng/mL 22.00-415.0 Iron Panel([facility]) 04/04/2023 [facility] 1 [place], [place] [phone] Iron 33 g /dL Low 45-140 % Saturation 11 % Low 30-35 Lipid 04/04/2023 [facility] [address] [place], [place] 9[address]88 [phone] Cholesterol 121 mg/dL 0-200 4 Triglyceride 71 mg/dL 0-150 5 HDLD 38 mg/dL See Comment 6 Measured LDL 70 mg/dL 0-130 7 Calc VLDL 14.2 mg/dL See Comment 8 Chol/HDL 3.2 RATIO See Comment 9 Non-HDL 83 mg/dL See Comment 10 Laboratory test finding 04/04/2023 [facility] [address] [place], [place] [phone] TSH 2.51 uIU/mL 0.50-6.00 FRT4 0.79 ng/dL 0.75-1.54 Tibc 04/04/2023 [facility] [address] [place] [address] [phone] Tibc 297 g /dL 260-400 Transferrin 212 mg/dL 200-400 Urine Isolate#1 03/19/2023 [facility] [address] [place] [address] [phone] Isolate #1 Enterococcus mar <SEE NOTE> 11 Ampicillin >8 R Ciprofloxacin >2 R Levofloxacin >4 R Linezolid <=2 S Nitrofurantoin <=32 S Penicillin >8 R Rifampim >2 R Tetracycline >8 R Vancomycin >16 R Urinalysis 03/19/2023 [facility] [address] [place] [address] [phone] Color LIGHT-YELLOW Appearance CLEAR Clear Spec.Grav. 1.010 1.005-1.025 Leukocytes LARGE Abnormal Negative Nitrite NEGATIVE Negative PH 6.0 6.0-7.5 Protein TRACE Abnormal Negative Urine Glucose NEGATIVE Negative Ketone NEGATIVE Negative Urobilinogen NORMAL E.U./DL Normal Bilirubin NEGATIVE Negative Blood NEGATIVE Negative WBC-U TNTC /HPF Abnormal 0-5/HPF RBC-U 3-5 /HPF 0-5/HPF Bacteria 1+ Abnormal None Seen Squamous 0-2 /HPF 0-5/HPF Laboratory test finding 03/19/2023 [facility] 1 [place], [place] 7[address]702 [phone] BNP 904.0 pg/mL Critical high 0.0-100.0 BMP 03/19/2023 [facility] [address] [place] [address] [phone] Glucose 132 mg/dL High 70-110 BUN 43 mg/dL High 6-25 Creatinine 3.1 mg/dL Critical high 0.7-1.3 12 Sodium 141 mEq/L 135-145 Potassium 4.0 mEq/L 3.5-5.0 Chloride 105 mEq/L 95-107 Co-2 22 mEq/L Low 24-31 Calcium 9.1 mg/dL 8.5-10.6 GFR 21 ML/MIN/1.73SQM Low >60 CBC W/Diff 03/19/2023 [facility] [address] [place] [address] [phone] WBC 6.3 10^3/M3 3.1-9.2 RBC 3.06 10^6/M3 Low 4.00-5.80 HGB 9.0 GR/DL Low 12.5-17.5 HCT 29.4 % Low 37.5-52.5 MCV 95.8 CUMICR 82.6-95.8 MCH 29.4 PICOGR 27.9-32.9 MCHC 30.7 % Low 32.6-35.4 RDW 17.6 % High 11.4-14.6 PLT 266 10^3/M3 140-350 MPV 8.2 CUMICR 7.0-10.6 %Neut 76.3 % High 40.0-75.0 %Lymph 7.3 % Low 17.0-45.0 %Humphreys 8.7 % 1.0-11.0 %Eos 7.0 % High 0.0-6.0 %Baso 0.7 % 0.0-2.0 #Neut 4.8 10^3/M3 1.5-8.0 #Lymph 0.5 10^3/M3 Low 0.8-3.2 #Humphreys 0.5 10^3/M3 0.0-0.8 #Eos 0.4 10^3/m3 0.0-0.4 #Baso 0.0 10^3/m3 0.0-0.2 Laboratory test finding 03/19/2023 [facility] (In Office Test) Sars Rna QL PCR - In Office Not Detected. Urine Culture 03/19/2023 [facility] [address] [place], [place] [address] [phone] Urine Source URINE Total Col Count >100,000 COL/CC Renal Panel 02/28/2023 [facility] [address] [place] [address] [phone] Glucose 96 mg/dL 70-110 13 BUN 56 mg/dL High 6-25 Creatinine 2.9 mg/dL High 0.7-1.3 Sodium 142 mEq/L 135-145 Potassium 4.4 mEq/L 3.5-5.0 Chloride 109 mEq/L High 95-107 Co-2 23 mEq/L Low 24-31 Calcium 8.4 mg/dL Low 8.5-10.6 Phosphorus 3.3 mg/dL 2.5-4.8 Albumin 3.5 g/dL 3.0-5.2 GFR 22 Low >60 CBC No Diff 02/28/2023 [facility] [address] [place] [address] [phone] WBC 5.9 10^3/M3 3.1-9.2 RBC 2.90 10^6/M3 Low 4.00-5.80 HGB 8.6 GR/DL Low 12.5-17.5 HCT 27.9 % Low 37.5-52.5 MCV 96.3 CUMICR High 82.6-95.8 MCH 29.6 PICOGR 27.9-32.9 MCHC 30.8 % Low 32.6-35.4 RDW 18.5 % High 11.4-14.6 PLT 238 10^3/M3 140-350 MPV 8.0 CUMICR 7.0-10.6 Laboratory test finding 02/28/2023 [facility] [address] [place] [address] [phone] Vitd-25Oh 46 ng/mL 30-100 Laboratory test finding 02/13/2023 [facility] [address] [place] [address] [phone] Magnesium 2.1 mg/dL 1.7-2.8 14 BMP 02/13/2023 [facility] [address] [place] [address] [phone] Glucose 99 mg/dL 70-110 15 BUN 59 mg/dL High 6-25 Creatinine 3.0 mg/dL High 0.7-1.3 Sodium 142 mEq/L 135-145 Potassium 3.8 mEq/L 3.5-5.0 Chloride 106 mEq/L 95-107 Co-2 27 mEq/L 24-31 Calcium 9.0 mg/dL 8.5-10.6 GFR 22 Low >60 Laboratory test finding 02/13/2023 [facility] [address] [place] [address] [phone] BNP 490.0 pg/mL Critical high 0.0-100.0 16 H & H 02/13/2023 [facility] [address] [place] [address] [phone] HGB 9.9 GR/DL Low 12.5-17.5 HCT 30.6 % Low 37.5-52.5 Renal Panel 02/05/2023 [facility] [address] [place] [address] [phone] Glucose 104 mg/dL 70-110 17 BUN 42 mg/dL High 6-25 Creatinine 3.0 mg/dL High 0.7-1.3 Sodium 150 mEq/L High 135-145 Potassium 4.9 mEq/L 3.5-5.0 Chloride 114 mEq/L High 95-107 Co-2 25 mEq/L 24-31 Calcium 8.9 mg/dL 8.5-10.6 Phosphorus 3.7 mg/dL 2.5-4.8 Albumin 3.8 g/dL 3.0-5.2 GFR 22 Low >60 CBC No Diff 02/05/2023 [facility] 1 [place], [place] 8[address]118 [phone] WBC 5.1 10 3.1-9.2 RBC 3.28 10 Low 4.00-5.80 HGB 9.6 GR/DL Low 12.5-17.5 HCT 30.9 % Low 37.5-52.5 MCV 94.4 CUMICR 82.6-95.8 MCH 29.3 PICOGR 27.9-32.9 MCHC 31.1 % Low 32.6-35.4 RDW 17.8 % High 11.4-14.6 PLT 195 10 140-350 MPV 8.2 CUMICR 7.0-10.6 Laboratory test finding 02/05/2023 [facility] [address] [place], [place] [address] [phone] Vitd-25Oh 38 ng/mL 30-100 1 Index Interpretation [...] when erythema migrans is apparent. 2 *[facility] USES MICROALBUMIN/CREATINE RATIO : [...] REPORT FAXED TO DOCTOR, REQUESTED ON REQUISITION. 23 ESEQUIEL 5 TRIGLYCERIDES Less than 150mg/dl Normal [...] REPORT FAXED TO DOCT OR, REQUESTED ON REQUISITION.03/01/23 LM 14 Please fax results agatha Baez PA-C [phone] F- [phone] 15 REPORT FAXED TO DOCT OR, REQUESTED ON REQUISITION.02/14/23 LM 16 CRITICAL RESULTS LUCI IFIED, FAXED, AND CALLED TO LASHON HENRY @ 4:09. 02/13/23 17 REPORT FAXED TO DOCT OR, REQUESTED ON REQUISITION. 02.06.23 ESEQUIEL Procedures Date Code Description Status 05/10/2023 1111F D/C Medications Reconciled W/Current Medications In Outpt MR Completed 05/10/2023 22055 Venipuncture Routine Complet ed 05/04/2023 1111F D/C Medications Reconciled W/Current Medications In Outpt MR Completed 04/16/2023 65770 Pulse Oximetry Single Determ ination Completed 04/16/2023 80336 Venipuncture Routine Complet ed 04/11/2023 3078F PVRP Diastolic BP <80 mmHg C ompleted 04/11/2023 1100F PT Screened Futu re Fall Risk >/=2 Falls In Past Yr/1 W/Injury Completed 04/11/2023 3074F PVRP Systolic BP <130 mmHg C ompleted 04/11/2023 3288F Fall Risk Assessment Documen awais Completed 04/11/2023 3725F Screening Depression Perform ed Completed 04/11/2023 93180 Fundus Eye Exam Completed 04/04/2023 38459 Venipuncture Routine Complet ed 03/19/2023 68707 Venipuncture Routine Complet ed 02/28/2023 68555 Venipuncture Routine Complet ed 02/13/2023 54398 Venipuncture Routine Complet ed 01/15/2023 1111F D/C Medications Reconciled W/Current Medications In Outpt MR Completed 01/12/2023 1111F D/C Medications Reconciled W/Current Medications In Outpt MR Completed Medical Devices Description No Information Available Encounters Type Date Location Provider Dx Diagnosis Office Visit 05/10/2023 9:00a Kylie Atkinson JR, DO J96.01 Acute respiratory failure with hypoxia J18.9 Pneumonia, unspecifi ed organism F33.1 Major depressive dis order, recurrent, moderate Office Visit 04/16/2023 9:15a Kylie Atkinson JR, DO M15.9 Polyosteoarthritis, unspecified R05.9 Cough, unspecified Office Visit 04/11/2023 9:00a [place] Matilda Atkinson JR, DO Z00.01 Encounter for general adult [...] with diabetic nephropathy Office Visit 03/19/2023 1:00p [place] Adam R Ohal acht, DO R06.02 Shortness of breath Office Visit 01/15/2023 11:00a [place]ren[place] cortes, PARobbieC N40.1 Benign prostatic hyperplasia with lower urinary tract symp A41.50 Gram-negative sepsis , unspecified Assessments Date Code Description Provider 05/10/2023 J96.01 Acute respiratory failure wi th hypoxia Matilda Atkinson JR, DO 05/10/2023 J18.9 Pneumonia, unspecified organ ism Matilda Atkinson JR, DO 05/10/2023 F33.1 Major depressive disorder, recurrent, moderate Matilda Atkinson JR, DO 04/16/2023 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 Matilda Atkinson JR, DO 04/16/2023 R05.9 Cough, unspecified Matilda Atkinson JR, DO 04/11/2023 Z00.01 [facility]counter for [facility] examination with abnormal findings Matilda Atkinson JR, DO 04/11/2023 E11.22 Type 2 diabetes mellitus with diabetic chronic kidney disease Matilda Atkinson JR, DO 04/11/2023 E11.51 Type 2 diabetes mellitus with diabetic peripheral angiopathy without gangrene Matilda Atkinson JR, DO 04/11/2023 E11.59 Type 2 diabetes mellitus with other circulatory complications Matilda Atkinson JR, DO 04/11/2023 I73.9 Peripheral vascular disease, unspecified Matlida Atkinson JR, DO 04/11/2023 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, stag e 4 (severe) Matilda Atkinson JR, DO 04/11/2023 I10 Essential (primary) hyperten lindy Matilda Atkinson JR, DO 04/11/2023 E03.9 Hypothyroidism, unspecified Matilda Atkinson JR, DO 04/11/2023 E78.00 Pure hypercholesterolemia, u nspecified Matilda Atkinson JR, DO 04/11/2023 J67.8 Hypersensitivity pneumonitis due to other organic dusts Matilda Atkinson JR, DO 04/11/2023 N25.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 arathyroidism of renal origin Matilda Atkinson JR, DO 04/11/2023 C83.39 Diffuse large B- cell lymphoma, extranodal and solid organ sites Matilda Atkinson JR, DO 04/11/2023 E11.21 Type 2 diabetes mellitus with diabetic nephropathy Matilda Atkinson JR, DO 04/04/2023 N25.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 arathyroidism of renal origin Matilda Atkinson JR, DO 04/04/2023 N25.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 arathyroidism of renal origin Lab - [place] 04/04/2023 E78.00 Pure hypercholesterolemia, u nspecified Matilda Atkinson JR, DO 04/04/2023 E78.00 Pure hypercholesterolemia, u nspecified Lab - [place] 04/04/2023 E88.81 Metabolic syndrome Matilda Atkinson JR, DO 04/04/2023 E88.81 Metabolic syndrome Lab - [place] 04/04/2023 D64.9 Anemia, unspecified Matilda Atkinson JR, DO 04/04/2023 E11.21 Type 2 diabetes mellitus with diabetic nephropathy Matilda Atkinson JR, DO 03/19/2023 R06.02 Shortness of breath Migel R O hnmacht, DO 02/28/2023 N17.9 Acute kidney failure, unspec ified Matildariya Atkinson JR, DO 02/28/2023 N17.9 Acute kidney failure, unspec ified Lab - [place] 02/28/2023 E55.9 Vitamin D deficiency, unspec ified Matilda Atkinson JR, DO 02/28/2023 E55.9 Vitamin D deficiency, unspec ified Lab - [place] 02/28/2023 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, stag e 4 (severe) Matilda Atkinson JR, DO 02/28/2023 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, stag e 4 (severe) Lab - [place] 02/13/2023 I50.9 Heart failure, unspecified K dusty Atkinson JR, DO 02/13/2023 I50.9 Heart failure, unspecified L ab - [place] 02/13/2023 E11.21 Type 2 diabetes mellitus with diabetic nephropathy Matilda Atkinson JR, DO 02/05/2023 N17.9 Acute kidney failure, unspec ified Matilda Atkinson JR, DO 02/05/2023 N17.9 Acute kidney failure, unspec ified Lab - [place] 02/05/2023 E55.9 Vitamin D deficiency, unspec ified Matilda Atkinson JR, DO 02/05/2023 E55.9 Vitamin D deficiency, unspec ified Lab - [place] 02/05/2023 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, stag e 4 (severe) Matilda Atkinson JR, DO 02/05/2023 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, stag e 4 (severe) Lab - [place] 01/15/2023 N40.1 Benign prostatic hyperplasia with lower urinary tract symptoms Pierre Costa PA-C 01/15/2023 A41.50 Gram-negative sepsis, unspec ified Pierre Costa PA-C Plan of Treatment Future Appointment(s):* 06/13/2023 11:15 am - Matilda Atkinson JR, DO at [place] * 07/11/2023 6:30 am - [facility] - [place] [facility] [place] * 07/17/2023 11:00 am - Matilda Atkinson JR, DO at [place] 05/10/2023 - Matilda Atkinson JR, DO* J96.01 Acute respiratory failure with hypoxia * J18.9 Pneumonia, unspecified organism * F33.1 Major depressive disorder, recurrent, moderate * All* Follow up:* Follow up in 1 month or sooner as needed. Functional Status Description No Information Available Mental Status Description No Information Available Referrals Refer to Reason for Referral Status Appt Didi Silva [address] [place] [address] Dr Hunter 4 [phone]
--- OUTSIDE RECORDS SUMMARY | 2023-08-21 23:50 | External Medical Summary | Continuity of Care Document ---
Author Name Unknown Organization [facility] [address] Address [address] [place], [place] [id number] Care Team Providers Care Banking Services Advisor Name Role Phone Vinod Pang Jr. Primary Care Physician [phone] [id number] Date(s): 05/21/23 - 05/21/23 [facility] [address], [address] [place] [address] [phone] Discharge Disposition: Home or Self Care Attending Physician: ANN Monterroso Lynn Referring Physician: ANN Monterroso Lynn Allergies, Adverse Reactions, Alerts No Known Allergies Immunizations Given and Recorded Vaccine Date Status Refusal Reason pneumococcal 23-valent vaccine 01/31/14 Given Medications atorvastatin Start: 01/11/21 15:59:00 EDT, 80 mg =, PO, Daily Start Date: 01/11/21 Status: Ordered bumetanide 1 mg oral tablet Start: 05/21/23 14:17:00 EDT, 1 tab, PO, Daily Start Date: 05/21/23 Status: Ordered citalopram 20 mg oral tablet Start: 01/03/21 12:32:00 EDT, 1 tab, PO, qhs Start Date: 01/03/21 Status: Ordered clopidogrel 75 mg oral tablet Start: 11/21/21 13:39:00 EST, 1 tab, PO, Daily Start Date: 11/21/21 Status: Ordered Eliquis 5 mg oral tablet Start: 05/21/23 14:17:00 EDT, 1 tab, PO, bid Start Date: 05/21/23 Status: Ordered ferrous sulfate Start: 07/11/21 14:24:00 EDT, See Instructions, infusions at [facility] Start Date: 07/11/21 Status: Ordered finasteride 5 mg oral tablet Start: 01/03/21 12:31:00 EDT, 1 tab, PO, Daily Start Date: 01/03/21 Status: Ordered Procrit 10,000 units/mL injectable solution Start: 05/21/23 13:06:00 EDT Start Date: 05/21/23 Status: Ordered Problem List Condition Confirmation Course Effective Dates Status Health St atus Informant Arthritis Confirmed Active DVT (deep venous thrombosis) Confirmed Active Depression Confirmed Active End stage renal disease Confirmed Active Stomach ulcer Confirmed Active Acid reflux Confirmed Active High cholesterol Confirmed Active Hypertension Confirmed Active Erectile dysfunction Confirmed Active Frequent urination Confirmed Active Intermittent claudication Confirmed Active Leg pain Confirmed Active Preop testing Confirmed Active Peripheral arterial disease Confirmed Active PAD (peripheral artery disease) Confirmed Active Retention of urine Confirmed Active Tobacco user Confirmed Active Weight disorder Confirmed Active Procedures Procedure Date Related Diagnosis Body Site Status Right wrist avf creation 04/02/19 Completed Removal of tunneled permcath 03/21/19 Completed Vascular Angioplasty 03/21/18 Comp leted Duplex scan of lower extremi ty arteries or arterial bypass grafts; complete bilateral study 05/25/15 Completed Abdominal aortogram 2013 Compl eted Bypass graft, with vein; femoral-anterior tibial, posterior tibial, peroneal artery or other distal vessels 2013 Completed Colonoscopy 2012 Completed Vascular surgery multiple 2012 Completed Cardiac Cath Cardiac Stented artery 2007 Completed Foot joint operations From A ccident @ Work 1994 Completed Procedure on back, L4 L5 Surgery 1991 Completed 1R Results Radiology Reports * Exam Date Time Procedure Performing Provider Status 05/21/23 11:29 AM VL AV Fistula or Dialysis Duplex Dalee Sindy smith; Final Notes: (VL AV Fistula or Dialysis Duplex) Reason For Exam: size, depth, flow VL AV Fistula or Dialysis Duplex [facility] FINAL REPORT Name: MEG FINK : 1945 Visit: [id number] Date: 21 May 2023 TYPE OF TEST: Dialysis Access Duplex REASON FOR TEST ESRD INTERPRETATION/FINDINGS Arterial duplex imaging performed of the RIGHT wrist radiocephalic dialysis access: 1. Patent subclavian, axillary and radial inflow arteries without stenosis or obstruction. 2. Patent arteriovenous fistula anastomosis without evidence of stenosis. 3. Antegrade flow in the radial artery distal to the AV fistula anastomosis; no evidence of steal phenomenon. 4. Patent venous outflow with no evidence of stenosis or thrombosis in the cephalic or subclavian veins. 5. Inadequate mean flow volume of 524 mL/min. 6. Cephalic vein diameter is 4.9 mm at the wrist, 6.0 mm in the distal forearm, 5.8 mm in the mid forearm, 6.6 mm in the proximal forearm, 6.0 mm at the antecubital fossa, 5.3 mm in the distal upper arm and 5.4 mm in the proximal upper arm. 7. Cephalic vein depth is 3.5 mm at the wrist, 3.3 mm in the distal forearm, 5.3 mm in the mid forearm, 4.7 mm in the proximal forearm and 3.0 mm at the antecubital fossa. Compared to the previous study performed 05/29/2019, the mean flow volume has increased slightly from 425 ml/min to 524 mL/min and cephalic vein diameter is larger throughout. IMPRESSION/COMMENTS I have personally reviewed the data relevant to the interpretation of this study. TECHNOLOGIST: Sindy MACHUCA, [facility], RVT PHYSICIAN: Willy Sadler M.D. Signed: 05/21/2023 12:27 PM Final Dictated by:MD Sadler Eugene J Dictated DT/TM:05/21/2023 12:27 Signed by:MD Sadler Eugene J Signed (Electronic Signature):05/21/2023 12:27 Transcribed by:SALVADOR Social History Social History Type Response Tobacco Former smoker Smoking Status Former Smoker, quit > 1 yr Sex Male Radiology * MD Sadler Eugene J: VERIFY, PERFORM, VERIFY, TRANSCRIBE Event Display: Report Authored Date: [id number] [facility] FINAL REPORT Name: MEG FINK : 1945 Visit: [id number] Date: 21 May 2023 TYPE OF TEST: Dialysis Access Duplex REASON FOR TEST ESRD INTERPRETATION/FINDINGS Arterial duplex imaging performed of the RIGHT wrist radiocephalic dialysis access: 1. Patent subclavian, axillary and radial inflow arteries without stenosis or obstruction. 2. Patent arteriovenous fistula anastomosis without evidence of stenosis. 3. Antegrade flow in the radial artery distal to the AV fistula anastomosis; no evidence of steal phenomenon. 4. Patent venous outflow with no evidence of stenosis or thrombosis in the cephalic or subclavian veins. 5. Inadequate mean flow volume of 524 mL/min. 6. Cephalic vein diameter is 4.9 mm at the wrist, 6.0 mm in the distal forearm, 5.8 mm in the mid forearm, 6.6 mm in the proximal forearm, 6.0 mm at the antecubital fossa, 5.3 mm in the distal upper arm and 5.4 mm in the proximal upper arm. 7. Cephalic vein depth is 3.5 mm at the wrist, 3.3 mm in the distal forearm, 5.3 mm in the mid forearm, 4.7 mm in the proximal forearm and 3.0 mm at the antecubital fossa. Compared to the previous study performed 05/29/2019, the mean flow volume has increased slightly from 425 ml/min to 524 mL/min and cephalic vein diameter is larger throughout. IMPRESSION/COMMENTS I have personally reviewed the data relevant to the interpretation of this study. TECHNOLOGIST: Sindy MACHUCA, RD, RVT PHYSICIAN: Willy Sadler M.D. Signed: 05/21/2023 12:27 PM Final Dictated by:MD Sadler Eugene J Dictated DT/TM:05/21/2023 12:27 Signed by:MD Sadler Eugene J Signed (Electronic Signature):05/21/2023 12:27 Transcribed by:Char Patient Care team information Care Team Personnel Name: MD Aden Faisal Position: Physician - Vascular Surg Member Role: Lifetime Relationship Address: Address: [address] [place] [address] [place] Name: SARA Dietz Terra L Position: Nurse Pract - Vascular Surg Member Role: Lifetime Relationship Address: Address: [address] [place] [address] [place] [address] [place] Name: Poly Basilio DO, Kenneth L Position: Referring DIRECT Member Role: Primary Care Provider Address: Address: [address] [address] [place] Name: ANN Epperson Bridget M Position: Physician Donor Technician - Vascular Surg Member Role: Lifetime Relationship Address: Address: [address] [place] [address] [place] Name: ANN Monterroso Lynn Position: Physician Donor Technician Exempt - Vasc Surg Member Role: Lifetime Relationship Address: Address: [address] [place] [address], [place] [address] Name: MD Ninfa, Casper Position: Physician - Anesthesiologist Member Role: Lifetime Relationship Address: Address: [address] [facility] [place] [address] Care Team Related Persons Name: MARLEY TAYLOR Name: MARLEY TAYLOR Address: [address] [place] [address] Name: MARLEY PRINCE Address: home [address] [place] Name: REGINA FINK Address: home [address] [facility], [id number]
--- OUTSIDE RECORDS SUMMARY | 2023-08-21 23:50 | External Medical Summary | Summary of Care ---
Author Name Unknown Organization [facility] Address [address] [place] [address] Phone [phone] Care Team Providers Care Synthetic Soil Blocks Pulper Name Role Phone Poly Basilio DO, Kenneth Primary Care Provider [phone] Reason for Visit * Reason Comments IV Therapy Venofer Encounter Details Date Type Department Care Team Description 05/23/2023 Hem/Onc Treatment Hematology/Oncology Treatment, [facility] [address] [place] [address] [facility], Chair1 Hem Onc [address] [place] [address] Anemia, unspecified type* Allergies No known active allergiesdocumented as of this encounter (statuses as of 05/23/2023) Medications Medication Sig Dispensed Refills Start Date [...] as of this encounter (statuses as of 05/23/2023) Active Problems Problem Noted Date Acute on chronic respiratory failure wit h hypoxia 04/29/2023 Pneumonia 04/29/2023 Heart failure with acute decompensation, type unknown 04/29/2023 Cardiomyopathy 04/29/2023 Central venous catheter in place, perman ent 04/29/2023 HFrEF (heart failure with reduced ejecti on fraction) 04/29/2023 COPD (chronic obstructive pulmonary dise ase) 04/29/2023 Interstitial lung disease 04/29/2023 Paroxysmal atrial fibrillation Anemia 06/20/2022 Type 2 diabetes mellitus 02/08/2022 Moderate malnutrition 04/11/2019 Febrile neutropenia 04/10/2019 Sepsis 04/10/2019 Atherosclerosis of coronary artery 04/10 CKD (chronic kidney disease) 04/10/2019 Lymphoma 04/10/2019 PVD (peripheral vascular disease) 2018 HTN (hypertension) 04/10/2019 HLD (hyperlipidemia) 04/10/2019 ADVANCE DIRECTIVE INFORMATION 06/07/2009 Overview: No, Advance Directive brochure offered , patient declined. documented as of this encounter (statuses as of 05/23/2023) Immunizations Name Administration Dates Next Due Pneumococcal Polysaccharide PPV23 (Pneumovax) Seasonal Influenza, Split, IIV3, With Preserve, Inj 07/22/2008 documented as of this encounter Social History Tobacco Use Types Packs/Day Years Used Date Smoking Tobacco: Former Cigarettes 1 35 Smokeless Tobacco: Current Snuff Alcohol Use Standard Drinks/Week Comments Yes 0 (1 standard drink = 0.6 oz pur e alcohol) Infrequent Sex Assigned at Date Recorded Not on file Job Start Date Occupation Industry Not on file Not on file Not on file documented as of this encounter Last Filed Vital Signs Vital Sign Reading Time Taken Comments Blood Pressure 127/53 05/23/2023 11:14 AM EDT Pulse 62 05/23/2023 11:14 AM EDT Temperature 36.1 C (97 F) 05/23/2023 8:56 AM EDT Respiratory Rate 16 05/23/2023 11:14 AM EDT Oxygen Saturation 98% 05/23/2023 8:56 AM EDT Inhaled Oxygen Concentration - - Weight - - Height - - Body Mass Index - - documented in this encounter Functional Status Functional Status Response Date of Assess ment Are you deaf or do you have serious difficulty h earing? Yes-[place] 04/29/2023 Are you blind or do you [...] Yes 04/29/2023 documented as of this encounter Nursing Notes * Belinda Juares LPN - 05/23/2023 11:35 AM EDT Patient left IVC by ambulating. Unaccompanied. Voiced no complaints. Belinda Juares LPN 05/23/2023 11:35 AM * Belinda Juares LPN - 05/23/2023 8:56 AM EDT Patient here in IV clinic in Chair 3 for Juan. documented in this encounter Plan of Treatment Health Maintenance Due Date Last Done Comments COVID-19 Vaccine (#1) 1950 Depression Screening, Annual for Pts 12 and Over 1957 Alpha-1 Antitrypsin 1963 DIABETES-EYE EXAM 1963 DIABETES-FOOT EXAM 1963 Hepatitis C Screening 1963 DTaP,Tdap,and Td Vaccines (1 - Tdap) 02/07/1964 Zoster Vaccines (1 of 2) 02/07/1964 Pneumococcal Vaccine: 65+ Years (2 - PCV) 07/22/2005 07/22/2004 *COPD SEVERITY VERIFIED BY PFT 05/02/2023 Influenza Vaccine (FLU shot) (#1) 2023 10/04/2022, 07/11/2018, 10/02/2017, Additional history exists HbA1c 10/30/2023 04/29/2023, 03/09, 10/03/2022, Additional history exists Albumin/Creatinine Ratio 04/11/2024 04/11/2023, 05/0 01/2022 GFR 05/10/2024 05/10/2023, 04/08, 05/01/2023, Additional history exists O2 ASSESSMENT COMPLETED IN PAST YEAR FOR COPD 05/14/2024 05/14/2023 GARDASIL-HPV IMMUNIZATION SERIES Aged Out No longer eligible based on patient's age to complete this topic Hepatitis B Aged Out No longer eligi ble based on patient's age to complete this topic MENINGOCOCCAL (MENACTRA/MENVEO) Aged Out No longer eligible based on patient's age to complete this topic documented as of this encounter Medical Devices Not on filedocumented as of this encounter Visit Diagnoses Diagnosis Anemia, unspecified type- Primary documented in this encounter Administered Medications Active Administered Medications - up to 3 most recent administrations Medication Order MAR Action Action Date Dose Rate Site diphenhydrAMINE (Benadryl) inj 50 mg 50 mg, IV Push, ONCE PRN Other, Hypersensitivity Reaction, Starting on Sun05/23/23 at 0857, Until Lora 05/24/23 at 0856, For 24 hours EPINEPHrine 1 MG/ML inj 0.3 mg 0.3 mg, Intramuscular, ONCE PRN Other, Hypersensitivity Reaction or Anaphylaxis, Starting on Sun05/23/23 at 0857, Until Lora 05/24/23 at 0856, For 24 hours hEParin 100 UNIT/ML Lock Flush inj 500 Units 500 Units (5 mL), IV Lock, PRN Other, IV Flush, Starting on Sun05/23/23 at 0857, Until Sun05/24/23 at 0856, For 24 hours, Do not flush if lock, PICC, or central line not in place; IV infusing or unable to flush. Hydrocortisone Sod Suc (PF) (Solu-Cortef) inj 100 mg 100 mg, IV Push, ONCE PRN Other, Hypersensitivity Reaction, Starting on Sun05/23/23 at 0857, Until Lora 05/24/23 at 0856, For 24 hours NSS infusion 500 mL, Intravenous, at 50 mL/hr, CONTINUOUS, Starting on Sun05/23/23 at 1000, Until Sun05/23/23 at 1959 Start Infusion 05/23/2023 9:06 AM EDT 500 mL 50 mL/hr sodium chloride 0.9 % flush central line 10 mL 10 mL, IV Push, PRN Other, IV Flush, Starting on Sun05/23/23 at 0857, Until Lora 05/24/23 at 0856, For 24 hours, Do not flush if lock, PICC, or central line not in place; IV infusing or unable to flush. Inactive Administered Medications - up to 3 most recent administrations Medication Order MAR Action Action Date Dose Rate Site Iron Sucrose (Venofer) 300 mg in NSS 250 mL ivpb 300 mg, IV Piggyback, ONCE, 1 dose, On Sun05/23/23 at 1030, Administer over 90 Minutes Start Infusion 05/23/2023 9:27 AM EDT 300 mg 166.67 mL/hr documented in this encounter Advance Directives Latest Code Status [...] the patient have Health Care Power of Plasma Specialist? No Bag Valve Device? No Intubation? No [...] the patient have Health Care Power of Plasma Specialist? No Care Teams Synthetic Soil Blocks Pulper Relationship Specialty Start Date End Date Vinod Pang Jr., DO [address] [facility] [place] [address] PCP - General 04/26/09 documented as of this encounter
--- OUTSIDE RECORDS SUMMARY | 2023-08-21 23:50 | External Medical Summary | Summary of Care ---
Author Name Unknown Organization [facility] Address [address] [place] [address] Phone [phone] Care Team Providers Care Limerock Tower Loader Name Role Phone Poly Basilio DO, Kenneth Primary Care Provider [phone] Encounter Details Date Type Department Care Team Description 07/06/2023 Orders Only Unspecified Department Allergies No known active allergiesdocumented as of this encounter (statuses as of 07/06/2023) Medications Medication Sig Dispensed Refills Start Date [...] as of this encounter (statuses as of 07/06/2023) Active Problems Problem Noted Date Acute on [...] as of this encounter (statuses as of 07/06/2023) Immunizations Name Administration Dates Next Due Pneumococcal [...] do you have serious difficulty h earing? Yes-[place] 04/29/2023 Are you blind or do you [...] Yes 04/29/2023 documented as of this encounter Plan of Treatment Health Maintenance Due Date Last Done Comments COVID-19 Vaccine (#1) 1950 Depression Screening 1957 Alpha-1 Antitrypsin 1963 DIABETES-EYE EXAM 1963 Diabetic Foot Exam 1963 Hepatitis C [...] IN PAST YEAR FOR COPD 05/23/2024 05/23/2023 GARDASIL-HPV IMMUNIZATION SERIES Aged Out No longer eligible based on patient's age to complete this topic Hepatitis B Aged Out No longer eligi ble based on patient's age to complete this topic MENINGOCOCCAL (MENACTRA/MENVEO) Aged Out No longer eligible based on patient's age to complete this topic documented as of this encounter Medical Devices Not on filedocumented as of this encounter Procedures Procedure Name Priority Date/Time Associated Diagnosis Comments HGB Routine 07/06/2023 9:35 AM EDT HCT Routine 07/06/2023 9:35 AM EDT documented in this encounter Results * (ABNORMAL) HGB (07/06/2023 9:35 AM EDT) HGB - OUTSIDE LAB 11.1(L) 12.5 - 17.5 GR/DL [facility] Comment:Document delivery by [place] on behalf of [facility] 07/06/2023 9:35 AM EDT No Physician Data Unknown LAB BLOOD ORDE MARY Performing Organization Address City/[facility]/ZIP Co de Phone Number [facility] 1 [facility] [address] [place] [phone] * (ABNORMAL) HCT (07/06/2023 9:35 AM EDT) HCT-OUTSIDE LAB 34.2(L) 37.5 - 52.5 % [facility] Comment:Document delivery by [place] on behalf of [facility] 07/06/2023 9:35 AM EDT No Physician Data Unknown LAB BLOOD ORDE MARY Performing Organization Address [facility] Co de Phone Number [facility] 1 [facility] [address] [place] [phone] documented in this encounter Advance Directives Latest [...] the patient have Health Care Power of Consulting Solution Manager? No Bag Valve Device? No Intubation? No [...] the patient have Health Care Power of Consulting Solution Manager? No Care Teams Limerock Tower Loader Relationship Specialty Start Date End Date Vinod Pang Jr., DO [address] [facility] [place] [address] PCP - General 04/26/09 documented as of this encounter
--- OUTSIDE RECORDS SUMMARY | 2023-08-21 23:50 | External Medical Summary | Summary of Care ---
Author Name Unknown Organization [facility] Address [address] [place] [place] [address] Phone [phone] Care Team Providers Care Order Takers Supervisor Name Role Phone Poly Basilio DO, Kenneth Primary Care Provider [phone] Reason for Visit * Reason Comments IV Therapy Venofer Encounter Details Date Type Department Care Team Description 04/25/2023 Hem/Onc Treatment Hematology/Oncology Treatment, [facility] [address] [place] [address] [facility], Chair5 Hem Onc [address] [place] [address] Anemia, unspecified type* Allergies No known active allergiesdocumented as of this encounter (statuses as of 06/21/2023) Medications Medication Sig Dispensed Refills Start Date End Date Status PLAVIX 75 MG PO TABS 1 tablet daily 0 Active Vitron-C 65-125 MG Oral Tablet (Iron-Vitamin C) Take 2 Tablets by mouth in the morning. 0 Active ASPIRIN 81 MG PO TABS 1 tablet daily 0 3 Discontinued CALCIUM + D 600-200 MG-UNIT PO TABS 1 tablet daily 0 3 Discontinued(Refi ll) NEURONTIN 300 MG PO CAPS 1 daily 0 3 Discontinued atorvaSTATin (LIPITOR) 80 MG Tablet 1 Tablet. 0 3 Discontinued(Refi ll) traMADol (ULTRAM) 50 MG Tablet 50 mg. 0 3 Discontinued sodium bicarbonate 650 MG Tablet 650 mg. 0 3 Discontinued Vitamin D, Ergocalciferol, 03558 units Capsule 50,000 Units. 0 3 Discontinued Ondansetron HCl 4 MG Oral Tablet 4 mg. 0 3 Discontinued finasteride (PROSCAR) 5 MG Tablet 1 Tablet. 0 3 Discontinued(Refi ll) citalopram (CELEXA) 40 MG Tablet 1 Tablet. 0 3 Discontinued(Refi ll) oxyCODONE-Acetami nophen 7.5-325 MG Oral Tablet 0 3 Discontinued pantoprazole (PROTONIX) 40 MG TBEC 40 mg. 0 3 Discontinued dilTIAZem CD (CARDIZEM CD) 180 MG CP24 extended release capsule Take 1 Cap by mouth daily. 30 Cap 0 04/12/2019 3 Discontinued documented as of this encounter (statuses as of 06/21/2023) Active Problems Problem Noted Date Anemia 06/20/2022 Type 2 diabetes mellitus 02/08/2022 Moderate malnutrition 04/11/2019 Febrile neutropenia 04/10/2019 Sepsis 04/10/2019 Atherosclerosis of coronary artery 04/10 CKD (chronic kidney disease) 04/10/2019 Lymphoma 04/10/2019 PVD (peripheral vascular disease) 2018 HTN (hypertension) 04/10/2019 HLD (hyperlipidemia) 04/10/2019 ADVANCE DIRECTIVE INFORMATION 06/07/2009 Overview: No, Advance Directive brochure offered , patient declined. documented as of this encounter (statuses as of 06/21/2023) Immunizations Name Administration Dates Next Due Pneumococcal [...] Sign Reading Time Taken Comments Blood Pressure 122/68 04/25/2023 11:44 AM EDT Pulse 67 04/25/2023 11:44 AM EDT Temperature 37.3 C (99.1 F) 04/25/2023 11:44 AM E DT Respiratory Rate 16 04/25/2023 11:44 AM EDT Oxygen Saturation - - Inhaled Oxygen Concentration - - Weight - - Height - - Body Mass Index - - documented in this encounter Functional Status Functional Status Response Date of Assess ment Are you deaf or do you have serious difficulty h earing? No 04/10/2019 Are you blind or do you have serious difficulty seeing, even when wearing glasses? No 04/10/2019 Do you have serious difficul ty walking or climbing stairs? (5 years old or older) No 04/10/2019 Do you have difficulty dress ing or bathing? (5 years old or older) No 04/10/2019 Because of a physical, menta l, or emotional condition, do you have difficulty doing errands alone such as visiting a doctor s office or shopping? (15 years old or older) No 04/10/20 Cognitive Status Response Date of Assessm ent Because of a physical, menta l, or emotional condition, do you have serious difficulty concentrating, remembering, or making decisions? (5 years old or older No 04/10/2019 documented as of this encounter Nursing Notes * Dede Anderson RN - 04/25/2023 1:51 PM EDT Patient left IVC by ambulating. Unaccompanied. Voiced no complaints. Dede Anderson RN 04/25/2023 1:51 PM * Belinda Juares LPN - 04/25/2023 11:44 AM EDT Patient here in IV clinic [...] Primary documented in this encounter Administered Medications Inactive Administered Medications - up to 3 most recent administrations Medication Order MAR Action Action Date Dose Rate Site Iron Sucrose (Venofer) 300 mg in NSS 250 mL ivpb 300 mg, IV Piggyback, ONCE, 1 dose, On Sun04/25/23 at 1330, Administer over 90 Minutes Start Infusion 04/25/2023 11:59 AM EDT 300 mg 166.67 mL/hr NSS infusion 500 mL, Intravenous, at 50 mL/hr, CONTINUOUS, Starting on Sun04/25/23 at 1300, Until Sun04/25/23 at 1751 Start Infusion 04/25/2023 11:57 AM EDT 500 mL 50 mL/hr documented in this encounter Advance Directives [...] the patient have Health Care Power of Dump Motor Operator? No Bag Valve Device? No Intubation? No [...] the patient have Health Care Power of Dump Motor Operator? No Care Teams Order Takers Supervisor Relationship Specialty Start Date End Date Vinod Pang Jr., DO [address] [facility] [place] [address] PCP - General 04/26/09 documented as of this encounter
--- OUTSIDE RECORDS SUMMARY | 2023-08-21 23:50 | External Medical Summary | Summary of Care ---
Author Name Unknown Organization [facility] Address [address] [facility] [address] Phone [phone] Care Team Providers Care Engineer Internship Name Role Phone Poly Basilio DO, Kenneth Primary Care Provider [phone] Reason for Visit * Reason Comments IV Therapy Venofer Encounter Details Date Type Department Care Team Description 05/14/2023 Hem/Onc Treatment Hematology/Oncology Treatment, [facility] [address] [place] [address] [facility], Chair8 Hem Onc [address] [place] [address] Anemia, unspecified type* Allergies No known active allergiesdocumented as of this encounter (statuses as of 05/14/2023) Medications Medication Sig Dispensed Refills Start Date [...] as of this encounter (statuses as of 05/14/2023) Active Problems Problem Noted Date Acute on [...] as of this encounter (statuses as of 05/14/2023) Immunizations Name Administration Dates Next Due Pneumococcal [...] Sign Reading Time Taken Comments Blood Pressure 128/50 05/14/2023 10:42 AM EDT Pulse 61 05/14/2023 10:42 AM EDT Temperature 36.1 C (97 F) 05/14/2023 8:42 AM EDT Respiratory Rate 16 05/14/2023 10:42 AM EDT Oxygen Saturation 97% 05/14/2023 10:42 AM EDT Inhaled Oxygen Concentration - - Weight - - Height - - Body Mass Index - - documented in this encounter Functional Status Functional Status Response Date of Assess ment Are you deaf or do you have serious difficulty h earing? Yes-[id number] 04/29/2023 Are you blind or do you [...] Nursing Notes * Belinda Juares LPN - 05/14/2023 10:50 AM EDT Patient left IVC by ambulating. Unaccompanied. Voiced no complaints. Belinda Juares LPN 05/14/2023 10:50 AM * Belinda Juares LPN - 05/14/2023 8:44 AM EDT Patient here in IV clinic in Chair 4 for Juan. documented in this encounter Plan of Treatment Upcoming Encounters Date Type Specialty Care Team Description 05/21/2023 Hem/Onc Treatment Hematology Oncology [facility], Chair3 Hem Onc [address] [place] [address] Health Maintenance Due Date Last Done Comments COVID-19 Vaccine (#1) 1950 Depression Screening, Annual for Pts 12 and Over 1957 Alpha-1 Antitrypsin 1963 Hepatitis C Screening 1963 DTaP,Tdap,and Td Vaccines (1 - Tdap) 02/07/1964 Zoster Vaccines (1 of 2) 02/07/1964 Pneumococcal Vaccine: 65+ Years (2 - PCV) 07/22/2005 07/22/2004 *COPD SEVERITY VERIFIED BY PFT 05/02/2023 Influenza Vaccine (FLU shot) (#1) 2023 10/04/2022, 07/11/2018, 10/02/2017, Additional history exists HbA1c 10/30/2023 04/29/2023, 03/09, 10/03/2022, Additional history exists Albumin/Creatinine Ratio 04/11/2024 04/11/2023, 05/0 01/2022 O2 ASSESSMENT COMPLETED IN PAST YEAR FOR COPD 05/02/2024 05/02/2023 GFR 05/10/2024 05/10/2023, 04/08, 05/01/2023, Additional history exists GARDASIL-HPV IMMUNIZATION SERIES Aged [...] ONCE PRN Other, Hypersensitivity Reaction, Starting on Sun05/14/23 at 0852, Until Sun05/15/23 at 0851, For 24 hours EPINEPHrine 1 MG/ML inj 0.3 mg 0.3 mg, Intramuscular, ONCE PRN Other, Hypersensitivity Reaction or Anaphylaxis, Starting on Sun05/14/23 at 0852, Until Sun05/15/23 at 0851, For 24 hours hEParin 100 UNIT/ML Lock Flush inj 500 Units 500 Units (5 mL), IV Lock, PRN Other, IV Flush, Starting on Sun05/14/23 at 0852, Until Sun05/15/23 at 08, For 24 hours, Do not flush if lock, PICC, or central line not in place; IV infusing or unable to flush. Hydrocortisone Sod Suc (PF) (Solu-Cortef) inj 100 mg 100 mg, IV Push, ONCE PRN Other, Hypersensitivity Reaction, Starting on Sun05/14/23 at 0852, Until Sun05/15/23 at 0851, For 24 hours NSS infusion 500 mL, Intravenous, at 50 mL/hr, CONTINUOUS, Starting on Sun05/14/23 at 1000, Until Sun05/14/23 at 1959 Start Infusion 05/14/2023 8:55 AM EDT 500 mL 50 mL/hr oxygen GAS Inhalation, OXYGEN, First dose on Sun05/14/23 at 0930, Until Discontinued, Device/Managed by: Low Flow Device, Goal SPO2 (%): 91-95, Starting Device: Nasal Cannula, Inital Flow Rate (LPM): 2, Lowest Support: Nasal Cannula: Flow 0-6 LPM. Titrate up/down by 1 LPM., Higher Support: Non-Rebreather (NRB) Mask: Minimum of 10 LPM. Titrate to maintain bag inflation., Titration Interval: Q2 minutes and as needed., Notify Provider: For sudden DECREASE in resting SPO2 to less than 85% and when escalating delivery device. sodium chloride 0.9 % flush central line 10 mL 10 mL, IV Push, PRN Other, IV Flush, Starting on Sun05/14/23 at 0852, Until Sun05/15/23 at 0851, For 24 hours, Do not flush if lock, PICC, or central line not in place; IV infusing or unable to flush. Inactive Administered Medications - up to 3 most recent administrations Medication Order MAR Action Action Date Dose Rate Site Iron Sucrose (Venofer) 300 mg in NSS 250 mL ivpb 300 mg, IV Piggyback, ONCE, 1 dose, On 05/14/23 at 1030, Administer over 90 Minutes Start Infusion 05/14/2023 8:57 AM EDT 300 mg 166.67 mL/hr documented [...] the patient have Health Care Power of Director Internal Control? No Bag Valve Device? No Intubation? No [...] the patient have Health Care Power of Director Internal Control? No Care Teams Engineer Internship Relationship Specialty Start Date End Date Vinod Pang Jr., DO [address] [facility] [place] [address] PCP - General 04/26/09 documented as of this encounter
--- OUTSIDE RECORDS SUMMARY | 2023-08-21 23:50 | External Medical Summary ---
Author Name Unknown Address Unknown Organization K1C:[facility] [address] [place] [address] Laboratory Report Ordering Provider Test Date Status null,[facility]QU[facility] TESTER 07/06/2023 09:35 Final Observation Date Value Abnormality Reference (Units ) Status HCT 07/06/2023 15:22 34.2 Below low normal 37.5-5 2.5 (%) Final Performing Location [facility] [address] [place] [address]
--- OUTSIDE RECORDS SUMMARY | 2023-08-21 23:50 | External Medical Summary | Continuity of Care Document ---
Author Name MATILDA ATKINSON DO Address [address] [place] [address] [place] [address] Phone [phone] Organization [place] Address [address] [place] [address] RD, [address] [place] [address] Phone [phone] Care Team Providers Care Four Slide Machine Operator Name Role Phone GI - Gastroenterology Care Team Information Rece Fermín Harrell MD Care Team Information Receiv er [phone] Rory Hodge Care Team Information Stringer Machine Tender [phone] Nixon Aden MD Care Team Information Stringer Machine Tender + [phone] Abran Eugene JR - Interven tional Pain Medicine Care Team Information Stringer Machine Tender [phone] Medardo Trinidad MD Care Team Information Receive r [phone] Sinan Marks MD Care Team Information Receive r [phone] Problems Active Problems Provider Date Chronic kidney [...] Atkinson JR, DO On set: 09/01/2015 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 Charge Operator (Cu rrent) Use Encounter Matilda Atkinson JR [...] SIG Qnty Indications Ordering Provider Date Clopidogrel Lkznhgidw18yu Tablets Take One (1) Tablet By Mouth Every Day 30tabs I73.9 Matilda L. Poly JR, DO 08/24/2021 Citalopram Gdchwlanosdd23id Tablets take one 1/2 tablets by mouth every day 135tabs F33.1 Matilda Atkinson JR, DO 06/23/2019 Qklvyuqstog3vo Tablets Take One Tablet By Mouth Once Daily 30tabs Matilda Atkinson JR, DO 11/12/2017 Oxycodone-Acetaminoph en7.5-325mg Tablets take one tablet every 6 h as needed pain--ongoing therapy 60tabs Matilda Atkinson JR, DO 01/22/2014 Atorvastatin Umfxrzr03am Tablets Take One Tablet By Mouth AT Bedtime 90tabs E78.0 Matilda Atkinson JR, DO E78.00 Jrwqqv66272Rsxc/ML Solution 40,000 units monthly Unknown Chjiechwaa90sp Tablets 1 by mouth twice a day 180tabs Unknown Pantoprazole Tqegkx69cs Tablets DR 1 by mouth every day Unknown Ggkpxpi0bm Tablets 1 by mouth twice a day Unknown Tamsulosin HCL0.4mg Capsules 1 by mouth every day Unknown Paalofffjv8fx Tablets 1 tab daily Unknow n History Medications Nitrofurantoin Monohyd Peyzk942zq Capsules take 1 capsule twice daily for 10 days 20caps Gisella Lisa MD, PhD 03/23/2023 - 04/10/2023 Rvmtzvwcfr609yz Tablets take 1 tab by mouth twice [...] CPT Code Status Date Vaccine Lot # [id number] Given 10/04/2022 Influenza Vaccine High Do se 0.5ML [id number] U-FLU Given 10/04/2022 Influenza,Unspecified 22450 Given 08/11/2020 Influenza Vacci ne-Administered at another facility U-FLU Given 08/11/2020 Influenza,Unspecified U-FLU Given 08/23/2019 Influenza,Unspecified 80981 Given 08/23/2019 Influenza Vacci ne-Administered at another facility 27121 Given 07/11/2018 Influenza Vac, Split, Preservative Free High Dose Age 65 & > [id number] 18219 Given 10/02/2017 Pneumococcal Conjugate-Pr evnar 13 85958 Given 10/02/2017 Influenza Vac, Split, Preservative Free High Dose Age 65 & > [id number] Given 08/14/2016 Influenza Virus Vaccine, Quadrivalent, Im Use [id number] 14588 Given 09/01/2015 Influenza Vac, Split, Preservative Free High Dose Age 65 & > [id number] 99017 Given 09/01/2015 Pneumococcal Conjugate-Pr evnar 13 [id number] 16588 Given 07/21/2014 Influenza Vac, Split, Preservative Free High Dose Age 65 & > [id number] U-FLU Given 07/21/2014 Influenza,Unspecified 27299 Given 01/31/2014 Pneumococcal Vaccine/Pneu movax 23 29854 Given 07/17/2013 Influenza Vac, Split, Preservative Free High Dose Age 65 & > [id number] 96359 Given 07/24/2012 Influenza Vac, Split, Preservative Free High Dose Age 65 & > [id number] 49631 Given 07/04/2011 Influenza Vac, Split, Preservative Free High Dose Age 65 & > [id number] 12057 Given 08/16/2010 Pneumococcal Vaccine/Pneu movax 23 [id number] 37872 Given 10/21/2009 Influenza Vac, Split 3 Yr s And Up [id number] 27894 Given 07/24/2008 Influenza Vac, Split 3 Yr s And Up U-FLU Given 07/22/2008 Influenza,Unspecified 21465 Given 10/27/2004 Influenza Vac, Split 3 Yr s And Up 94482 Given 07/22/2004 Pneumococcal Vaccine/Pneu movax 23 86605 Refused 04/11/2023 Moderna Sars-Co v-2 (Covid-19) vaccine, 100 mcg/ 0.5 mL 12Y+ 81177 Refused 04/11/2023 Shingrix 63983 Refused 07/26/2021 Moderna Sars-Co v-2 (Covid-19) vaccine, 100 mcg/ 0.5 mL 12Y+ 76925 Refused 09/28/2020 Tdap (Tetanus, diphtheria & acel. pertussis) Adacel or Boostrix 53086 Refused 09/28/2020 Shingrix 17066 Refused 08/19/2020 Influenza Virus Vaccine, Quadrivalent, Im Use 13747 Refused 07/11/2016 Influenza Vac, Split, Preservative Free [...] Result H/L Range N ote BMP 05/10/2023 [facility] [address] [place] [address] [phone] Glucose 98 mg/dL 70-110 BUN 45 mg/dL High 6-25 Creatinine 3.0 mg/dL High 0.7-1.3 Sodium 141 mEq/L 135-145 Potassium 4.5 mEq/L 3.5-5.0 Chloride 105 mEq/L 95-107 Co-2 23 mEq/L Low 24-31 Calcium 8.5 mg/dL 8.5-10.6 GFR 22 ML/MIN/1.73SQM Low >60 CBC No Diff 05/10/2023 [facility] [address] [place] [address] [phone] WBC 9.1 10^3/M3 3.1-9.2 RBC 3.86 10^6/M3 Low 4.00-5.80 HGB 10.9 GR/DL Low 12.5-17.5 HCT 34.5 % Low 37.5-52.5 MCV 89.2 CUMICR 82.6-95.8 MCH 28.1 PICOGR 27.9-32.9 MCHC 31.6 % Low 32.6-35.4 RDW 18.8 % High 11.4-14.6 PLT 284 10^3/M3 140-350 MPV 7.7 CUMICR 7.0-10.6 CBC W/Diff 04/16/2023 [facility] [address] [place] [address] [phone] WBC 6.5 10^3/M3 3.1-9.2 RBC 3.57 10^6/M3 Low 4.00-5.80 HGB 10.0 GR/DL Low 12.5-17.5 HCT 31.3 % Low 37.5-52.5 MCV 87.7 CUMICR 82.6-95.8 MCH 27.9 PICOGR 27.9-32.9 MCHC 31.9 % Low 32.6-35.4 RDW 17.5 % High 11.4-14.6 PLT 263 10^3/M3 140-350 MPV 7.5 CUMICR 7.0-10.6 %Neut 71.5 % 40.0-75.0 %Lymph 6.1 % Low 17.0-45.0 %Lynn 11.1 % High 1.0-11.0 %Eos 10.6 % High 0.0-6.0 %Baso 0.7 % 0.0-2.0 #Neut 4.7 10^3/M3 1.5-8.0 #Lymph 0.4 10^3/M3 Low 0.8-3.2 #Lynn 0.7 10^3/M3 0.0-0.8 #Eos 0.7 10^3/m3 High 0.0-0.4 #Baso 0.0 10^3/m3 0.0-0.2 Laboratory test finding 04/16/2023 [facility] [address] [place] [address] [phone] Uric Acid 5.3 mg/dL 2.5-7.5 R.A. Factor <10.0 IU/mL 0.0-20.0 Raina NEGATIVE Sed Rate 37 High 0-15 Lyme Disease AB W/RFX To Blot (Igg,Igm) 04/16/[address] [facility] [place] [address] [phone] Lyme AB Screen <0.90 index Normal 1 Laboratory test finding 04/16/2023 [facility] [address] [place] [address] [place] [address] [phone] Clinical PDF Report [id number] SEE IMAGE Microalbumin Urine 04/11/2023 [facility] [address] [place] [address] [phone] Urine Creat 74 mg/dL Comment Microalbumin 7.8 mg/dL High 0.0-1.8 2 ug/mgCREATININE 105 ug/mg High 0-29 CBC W/Diff 04/04/2023 [facility] [address] [place] [address] [phone] WBC 6.1 10^3/M3 3.1-9.2 RBC 3.34 10^6/M3 Low 4.00-5.80 HGB 9.4 GR/DL Low 12.5-17.5 HCT 29.3 % Low 37.5-52.5 MCV 88.0 CUMICR 82.6-95.8 MCH 28.3 PICOGR 27.9-32.9 MCHC 32.2 % Low 32.6-35.4 RDW 16.5 % High 11.4-14.6 PLT 285 10^3/M3 140-350 MPV 7.9 CUMICR 7.0-10.6 %Neut 68.7 % 40.0-75.0 %Lymph 7.8 % Low 17.0-45.0 %Lynn 9.3 % 1.0-11.0 %Eos 13.1 % High 0.0-6.0 %Baso 1.1 % 0.0-2.0 #Neut 4.2 10^3/M3 1.5-8.0 #Lymph 0.5 10^3/M3 Low 0.8-3.2 #Lynn 0.6 10^3/M3 0.0-0.8 #Eos 0.8 10^3/m3 High 0.0-0.4 #Baso 0.1 10^3/m3 0.0-0.2 Comp. Met 04/04/2023 [facility] [address] [place] [address] [phone] Glucose 116 mg/dL High 70-110 BUN 45 [...] GFR 24 ML/MIN/1.73SQM Low >60 Hba1c 04/04/2023 [facility] [address] [place], [place] [phone] A1c 5.70 % 4.70-6.50 3 Laboratory test finding 04/04/2023 [facility] [address] [place] [address] [phone] Ferritin 50.30 ng/mL 22.00-415.0 Iron Panel([facility]) 04/04/2023 [facility] [address] [place], [place] 6[address] [phone] Iron 33 g /dL Low 45-140 % Saturation 11 % Low 30-35 Lipid 04/04/2023 [facility] [address] [place], [place] 29[address]51 [phone] Cholesterol 121 mg/dL 0-200 4 Triglyceride 71 mg/dL 0-150 5 HDLD 38 mg/dL See Comment 6 Measured LDL 70 mg/dL 0-130 7 Calc VLDL 14.2 mg/dL See Comment 8 Chol/HDL 3.2 RATIO See Comment 9 Non-HDL 83 mg/dL See Comment 10 Laboratory test finding 04/04/2023 [facility] [address] [place], [place] 8[address]33 [phone] TSH 2.51 uIU/mL 0.50-6.00 FRT4 0.79 ng/dL 0.75-1.54 Tibc 04/04/2023 [facility] [address] [place] [address] [phone] Tibc 297 g /dL 260-400 Transferrin 212 mg/dL 200-400 Urine Isolate#1 03/19/2023 [facility] [address] [place] [address] [phone] Isolate #1 Enterococcus mar <SEE NOTE> 11 Ampicillin >8 R Ciprofloxacin >2 R Levofloxacin >4 R Linezolid <=2 S Nitrofurantoin <=32 S Penicillin >8 R Rifampim >2 R Tetracycline >8 R Vancomycin >16 R Urinalysis 03/19/2023 [facility] [address] [place] [address] [phone] Color LIGHT-YELLOW Appearance CLEAR Clear Spec.Grav. 1.010 1.005-1.025 Leukocytes LARGE Abnormal Negative Nitrite NEGATIVE Negative PH 6.0 6.0-7.5 Protein TRACE Abnormal Negative Urine Glucose NEGATIVE Negative Ketone NEGATIVE Negative Urobilinogen NORMAL E.U./DL Normal Bilirubin NEGATIVE Negative Blood NEGATIVE Negative WBC-U TNTC /HPF Abnormal 0-5/HPF RBC-U 3-5 /HPF 0-5/HPF Bacteria 1+ Abnormal None Seen Squamous 0-2 /HPF 0-5/HPF Laboratory test finding 03/19/2023 [facility] [address] [place], [place] [phone] BNP 904.0 pg/mL Critical high 0.0-100.0 BMP 03/19/2023 [facility] [address] [place] [address] [phone] Glucose 132 mg/dL High 70-110 BUN 43 mg/dL High 6-25 Creatinine 3.1 mg/dL Critical high 0.7-1.3 12 Sodium 141 mEq/L 135-145 Potassium 4.0 mEq/L 3.5-5.0 Chloride 105 mEq/L 95-107 Co-2 22 mEq/L Low 24-31 Calcium 9.1 mg/dL 8.5-10.6 GFR 21 ML/MIN/1.73SQM Low >60 CBC W/Diff 03/19/2023 [facility] [address] [place] [address] [phone] WBC 6.3 10^3/M3 3.1-9.2 RBC 3.06 10^6/M3 Low 4.00-5.80 HGB 9.0 GR/DL Low 12.5-17.5 HCT 29.4 % Low 37.5-52.5 MCV 95.8 CUMICR 82.6-95.8 MCH 29.4 PICOGR 27.9-32.9 MCHC 30.7 % Low 32.6-35.4 RDW 17.6 % High 11.4-14.6 PLT 266 10^3/M3 140-350 MPV 8.2 CUMICR 7.0-10.6 %Neut 76.3 % High 40.0-75.0 %Lymph 7.3 % Low 17.0-45.0 %Lynn 8.7 % 1.0-11.0 %Eos 7.0 % High 0.0-6.0 %Baso 0.7 % 0.0-2.0 #Neut 4.8 10^3/M3 1.5-8.0 #Lymph 0.5 10^3/M3 Low 0.8-3.2 #Lynn 0.5 10^3/M3 0.0-0.8 #Eos 0.4 10^3/m3 0.0-0.4 #Baso 0.0 10^3/m3 0.0-0.2 Laboratory test finding 03/19/2023 [facility] (In Office Test) Sars Rna QL PCR - In Office Not Detected. Urine Culture 03/19/2023 [facility] [address] [place], [place] [phone] Urine Source URINE Total Col Count >100,000 COL/CC Renal Panel 02/28/2023 [facility] [address] [place] [address] [phone] Glucose 96 mg/dL 70-110 13 BUN 56 mg/dL High 6-25 Creatinine 2.9 mg/dL High 0.7-1.3 Sodium 142 mEq/L 135-145 Potassium 4.4 mEq/L 3.5-5.0 Chloride 109 mEq/L High 95-107 Co-2 23 mEq/L Low 24-31 Calcium 8.4 mg/dL Low 8.5-10.6 Phosphorus 3.3 mg/dL 2.5-4.8 Albumin 3.5 g/dL 3.0-5.2 GFR 22 Low >60 CBC No Diff 02/28/2023 [facility] [address] [place] [address] [phone] WBC 5.9 10^3/M3 3.1-9.2 RBC 2.90 10^6/M3 Low 4.00-5.80 HGB 8.6 GR/DL Low 12.5-17.5 HCT 27.9 % Low 37.5-52.5 MCV 96.3 CUMICR High 82.6-95.8 MCH 29.6 PICOGR 27.9-32.9 MCHC 30.8 % Low 32.6-35.4 RDW 18.5 % High 11.4-14.6 PLT 238 10^3/M3 140-350 MPV 8.0 CUMICR 7.0-10.6 Laboratory test finding 02/28/2023 [facility] [address] [place] [address] [phone] Vitd-25Oh 46 ng/mL 30-100 Laboratory test finding 02/13/2023 [facility] [address] [place] [address] [phone] Magnesium 2.1 mg/dL 1.7-2.8 14 BMP 02/13/2023 [facility] [address] [place] [address] [phone] Glucose 99 mg/dL 70-110 15 BUN 59 mg/dL High 6-25 Creatinine 3.0 mg/dL High 0.7-1.3 Sodium 142 mEq/L 135-145 Potassium 3.8 mEq/L 3.5-5.0 Chloride 106 mEq/L 95-107 Co-2 27 mEq/L 24-31 Calcium 9.0 mg/dL 8.5-10.6 GFR 22 Low >60 Laboratory test finding 02/13/2023 [facility] [address] [place] [address] [phone] BNP 490.0 pg/mL Critical high 0.0-100.0 16 H & H 02/13/2023 [facility] [address] [place] [address] [phone] HGB 9.9 GR/DL Low 12.5-17.5 HCT 30.6 % Low 37.5-52.5 Renal Panel 02/05/2023 [facility] [address] [place] [address] [phone] Glucose 104 mg/dL 70-110 17 BUN 42 mg/dL High 6-25 Creatinine 3.0 mg/dL High 0.7-1.3 Sodium 150 mEq/L High 135-145 Potassium 4.9 mEq/L 3.5-5.0 Chloride 114 mEq/L High 95-107 Co-2 25 mEq/L 24-31 Calcium 8.9 mg/dL 8.5-10.6 Phosphorus 3.7 mg/dL 2.5-4.8 Albumin 3.8 g/dL 3.0-5.2 GFR 22 Low >60 CBC No Diff 02/05/2023 [facility] [address] [place], [place] 4625933 [phone] WBC 5.1 10 3.1-9.2 RBC 3.28 10 Low 4.00-5.80 HGB 9.6 GR/DL Low 12.5-17.5 HCT 30.9 % Low 37.5-52.5 MCV 94.4 CUMICR 82.6-95.8 MCH 29.3 PICOGR 27.9-32.9 MCHC 31.1 % Low 32.6-35.4 RDW 17.8 % High 11.4-14.6 PLT 195 10 140-350 MPV 8.2 CUMICR 7.0-10.6 Laboratory test finding 02/05/2023 [facility] [address] [place], [place] 7383577 [phone] Vitd-25Oh 38 ng/mL 30-100 1 Index Interpretation [...] when erythema migrans is apparent. 2 *[facility] USES MICROALBUMIN/CREATINE RATIO : [...] 14 Please fax results agatha Baez PA-C [phone] F- [phone] 15 REPORT FAXED TO [facility], REQUESTED ON REQUISITION.02/14/23 LM 16 CRITICAL RESULTS LUCI IFIED, FAXED, AND CALLED TO LASHON HENRY @ 4:09. 02/13/23 17 REPORT FAXED TO [facility], REQUESTED ON REQUISITION. 02.06.23 ESEQUIEL Procedures Date Code Description Status 05/10/2023 1111F D/C Medications Reconciled W/Current Medications In Outpt MR Completed 05/10/2023 49712 Venipuncture Routine Complet ed 05/04/2023 1111F D/C Medications Reconciled W/Current Medications In Outpt MR Completed 04/16/2023 84022 Pulse Oximetry Single Determ ination Completed 04/16/2023 97107 Venipuncture Routine Complet ed 04/11/2023 3078F PVRP Diastolic BP <80 mmHg C ompleted 04/11/2023 1100F PT Screened Futu re Fall Risk >/=2 Falls In Past Yr/1 W/Injury Completed 04/11/2023 3074F PVRP Systolic BP <130 mmHg C ompleted 04/11/2023 3288F Fall Risk Assessment Documen awais Completed 04/11/2023 3725F Screening Depression Perform ed Completed 04/11/2023 59555 Fundus Eye Exam Completed 04/04/2023 28608 Venipuncture Routine Complet ed 03/19/2023 97040 Venipuncture Routine Complet ed 02/28/2023 08547 Venipuncture Routine Complet ed 02/13/2023 04616 Venipuncture Routine Complet ed 01/15/2023 1111F D/C [...] R05.9 Cough, unspecified Office Visit 04/11/2023 9:00a [place] Matilda Atkinson JR, DO Z00.01 Encounter for [...] with diabetic nephropathy Office Visit 03/19/2023 1:00p [place] Adam R Ohwa acht, DO R06.02 Shortness of breath Office Visit 01/15/2023 11:00a [place] cortes, PARobbieC N40.1 Benign prostatic hyperplasia with [...] Atkinson JR, DO 04/11/2023 Z00.01 Encounter for [facility] adult medical examination with abnormal findings Matilda Atkinson JR, DO 04/11/2023 E11.22 Type 2 diabetes mellitus with diabetic chronic kidney disease Matilda Atkinson JR, DO 04/11/2023 E11.51 Type 2 diabetes mellitus with diabetic peripheral angiopathy without gangrene Matilda Atkinson JR, DO 04/11/2023 E11.59 Type 2 diabetes mellitus with other circulatory complications Matilda Atkinson JR, DO 04/11/2023 I73.9 Peripheral vascular disease, unspecified Matilda Atkinson JR, DO 04/11/2023 N18.4 Chronic kidney [...] hyperp arathyroidism of renal origin Lab - [place] 04/04/2023 E78.00 Pure hypercholesterolemia, u nspecified Matilda Atkinson JR, DO 04/04/2023 E78.00 Pure hypercholesterolemia, u nspecified Lab - [place] 04/04/2023 E88.81 Metabolic syndrome Matilda Atkinson JR, [...] Acute kidney failure, unspec ified Lab - [place] 02/28/2023 E55.9 Vitamin D deficiency, unspec ified Matilda Atkinson JR, DO 02/28/2023 E55.9 Vitamin D deficiency, unspec ified Lab - [place] 02/28/2023 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, stag e 4 (severe) Matilda Atkinson JR, DO 02/28/2023 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, stag e 4 (severe) Lab - [place] 02/13/2023 I50.9 Heart failure, unspecified K dusty Atkinson JR, DO 02/13/2023 I50.9 Heart failure, unspecified L ab - [place] 02/13/2023 E11.21 Type 2 diabetes mellitus with diabetic nephropathy Matilda Atkinson JR, DO 02/05/2023 N17.9 Acute kidney failure, unspec ified Matilda Atkinson JR, DO 02/05/2023 N17.9 Acute kidney failure, unspec ified Lab - [place] 02/05/2023 E55.9 Vitamin D deficiency, unspec ified Matilda Atkinson JR, DO 02/05/2023 E55.9 Vitamin D deficiency, unspec ified Lab - [place] 02/05/2023 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, stag e 4 (severe) Matilda Atkinson JR, DO 02/05/2023 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, stag e 4 (severe) Lab - [place] 01/15/2023 N40.1 Benign prostatic hyperplasia with lower urinary tract symptoms Pierre Costa PA-C 01/15/2023 A41.50 Gram-negative sepsis, unspec ified Pierre Costa PA-C Plan of Treatment Future Appointment(s):* 06/13/2023 11:15 am - Matilda Atkinson JR, DO at [place] * 07/11/2023 6:30 am - [facility] [place] * 07/17/2023 11:00 am - Matilda Atkinson JR, DO at [place] 05/10/2023 - Matilda Atkinson JR, DO* J96.01 Acute respiratory failure with hypoxia * J18.9 Pneumonia, unspecified organism * F33.1 Major depressive disorder, recurrent, moderate * All* Follow up:* Follow up in 1 month or sooner as needed. Functional Status Description No Information Available Mental Status Description No Information Available Referrals Refer to Reason for Referral Status Appt Didi Silva [address] [place] [address] Dr Hunter 1 [phone]
--- OUTSIDE RECORDS SUMMARY | 2023-08-21 23:50 | External Medical Summary | Continuity of Care Document ---
Author Name [facility] [place] Address [address] [place] [address] Phone [phone] Organization [facility] er, Address [address] [place] [address] Phone [phone] Care Team Providers Care Technical Instructor Course Developer Name Role Phone Gastroenterology - Gastroenterology Care Team In formation Director Medical Economics Unavailable Fermín Quick MD Care Team Information Receiv er [phone] Rory Hodge Care Team Information Director Medical Economics [phone] Nixon Aden MD Care Team Information Director Medical Economics + [phone] Abran Eugene JR - Interven tional Pain Medicine Care Team Information Director Medical Economics [phone] Medardo Trinidad MD Care Team Information Receive r [phone] Sinan Marks MD Care Team Information Receive r [phone] Problems Active Problems Provider Date Chronic kidney [...] Pang JR DO On set: 09/01/2015 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 Vinod Pang JR [...] SIG Qnty Indications Ordering Provider Date Clopidogrel Jyuoyhgwi36kf Tablets Take One (1) Tablet By Mouth Every Day 30tabs I73.9 Vinod Pang JR DO 08/24/2021 Citalopram Qznsfixlppeq25fq Tablets take one 1/2 tablets by mouth every day 135tabs F33.1 Vinod Pang JR, DO 06/23/2019 Kofxqafckgw6jb Tablets Take One Tablet By Mouth Once Daily 30tabs Vinod Pang JR, DO 11/12/2017 Oxycodone-Acetaminoph en7.5-325mg Tablets take one tablet every 6 h as needed pain--ongoing therapy 60tabs Vinod Pang JR, DO 01/22/2014 Atorvastatin Jwarroq65uo Tablets Take One Tablet By Mouth AT Bedtime 90tabs E78.0 Vinod Pang JR, DO E78.00 Erxpny10546Eivt/ML Solution 40,000 units monthly Unknown Sdmtxfumma71df Tablets 1 by mouth twice a day 180tabs Unknown Pantoprazole Dmjrqe24fa Tablets DR 1 by mouth every day Unknown Ksqwrsj7oh Tablets 1 by mouth twice a day Unknown Tamsulosin HCL0.4mg Capsules 1 by mouth every day Unknown Wpodijappu5xq Tablets 1 tab daily Unknow n History Medications Nitrofurantoin Monohyd Sykku793lm Capsules take 1 capsule twice daily for 10 days 20caps Gisella Lisa MD, PhD 03/23/2023 - 04/10/2023 Qofeymafbc175pm Tablets take 1 tab by mouth twice [...] CPT Code Status Date Vaccine Lot # 85031 Given 10/04/2022 Influenza Vaccine High Do se 0.5ML Age 65 & > [id number] U-FLU Given 10/04/2022 Influenza,Unspecified 11913 Given 08/11/2020 Influenza Vacci ne-Administered at another facility U-FLU Given 08/11/2020 Influenza,Unspecified U-FLU Given 08/23/2019 Influenza,Unspecified 99800 Given 08/23/2019 Influenza Vacci ne-Administered at another facility 03920 Given 07/11/2018 Influenza Vac, Split, Preservative Free High Dose Age 65 & > [id number] 01883 Given 10/02/2017 Pneumococcal Conjugate-Pr evnar 13 27785 Given 10/02/2017 Influenza Vac, Split, Preservative Free High Dose Age 65 & > 72036 Given 08/14/2016 Influenza Virus Vaccine, Quadrivalent, Im Use [id number] 05825 Given 09/01/2015 Influenza Vac, Split, Preservative Free High Dose Age 65 & > [id number] 38365 Given 09/01/2015 Pneumococcal Conjugate-Pr evnar 13 [id number] 45384 Given 07/21/2014 Influenza Vac, Split, Preservative Free High Dose Age 65 & > [id number] U-FLU Given 07/21/2014 Influenza,Unspecified 71258 Given 01/31/2014 Pneumococcal Vaccine/Pneu movax 23 08606 Given 07/17/2013 Influenza Vac, Split, Preservative Free High Dose Age 65 & > [id number] 40131 Given 07/24/2012 Influenza Vac, Split, Preservative Free High Dose Age 65 & > [id number] 41212 Given 07/04/2011 Influenza Vac, Split, Preservative Free High Dose Age 65 & > [id number] 17876 Given 08/16/2010 Pneumococcal Vaccine/Pneu movax 23 [id number] 23124 Given 10/21/2009 Influenza Vac, Split 3 Yr s And Up [id number] 53305 Given 07/24/2008 Influenza Vac, Split 3 Yr s And Up U-FLU Given 07/22/2008 Influenza,Unspecified 55320 Given 10/27/2004 Influenza Vac, Split 3 Yr s And Up 08959 Given 07/22/2004 Pneumococcal Vaccine/Pneu movax 23 24999 Refused 04/11/2023 Moderna Sars-Co v-2 (Cov-19) vacc,100 mcg/ 0.5 mL 12Y+EMR Doc Only [id number] Refused 04/11/2023 Shingrix 11976 Refused 07/26/2021 Moderna Sars-Co v-2 (Cov-19) vacc,100 mcg/ 0.5 mL 12Y+EMR Doc Only 53115 Refused 09/28/2020 Tdap (Tetanus, diphtheria & acel. pertussis) Adacel or Boostrix 05850 Refused 09/28/2020 Shingrix 90835 Refused 08/19/2020 Influenza Virus Vaccine, Quadrivalent, Im Use 74848 Refused 07/11/2016 Influenza Vac, Split, Preservative Free [...] Range N ote Laboratory test finding 07/06/2023 [facility] [address] [place] [address] [phone] HGB 11.1 GR/DL Low 12.5-17.5 1 HCT 34.2 % Low 37.5-52.5 CBC No Diff 05/10/2023 [facility] [address] [place], [place] [phone] WBC 9.1 10^3/M3 3.1-9.2 RBC 3.86 10^6/M3 Low 4.00-5.80 HGB 10.9 GR/DL Low 12.5-17.5 HCT 34.5 % Low 37.5-52.5 MCV 89.2 CUMICR 82.6-95.8 MCH 28.1 PICOGR 27.9-32.9 MCHC 31.6 % Low 32.6-35.4 RDW 18.8 % High 11.4-14.6 PLT 284 10^3/M3 140-350 MPV 7.7 CUMICR 7.0-10.6 BMP 05/10/2023 [facility] [address] [place] [address] [phone] Glucose 98 mg/dL 70-110 BUN 45 mg/dL High 6-25 Creatinine 3.0 mg/dL High 0.7-1.3 Sodium 141 mEq/L 135-145 Potassium 4.5 mEq/L 3.5-5.0 Chloride 105 mEq/L 95-107 Co-2 23 mEq/L Low 24-31 Calcium 8.5 mg/dL 8.5-10.6 GFR 22 ML/MIN/1.73SQM Low >60 CBC W/Diff 04/16/2023 [facility] [address] [place] [address] [phone] WBC 6.5 10^3/M3 3.1-9.2 RBC 3.57 10^6/M3 Low 4.00-5.80 HGB 10.0 GR/DL Low 12.5-17.5 HCT 31.3 % Low 37.5-52.5 MCV 87.7 CUMICR 82.6-95.8 MCH 27.9 PICOGR 27.9-32.9 MCHC 31.9 % Low 32.6-35.4 RDW 17.5 % High 11.4-14.6 PLT 263 10^3/M3 140-350 MPV 7.5 CUMICR 7.0-10.6 %Neut 71.5 % 40.0-75.0 %Lymph 6.1 % Low 17.0-45.0 %[place] 11.1 % High 1.0-11.0 %Eos 10.6 % High 0.0-6.0 %Baso 0.7 % 0.0-2.0 #Neut 4.7 10^3/M3 1.5-8.0 #Lymph 0.4 10^3/M3 Low 0.8-3.2 #[place] 0.7 10^3/M3 0.0-0.8 #Eos 0.7 10^3/m3 High 0.0-0.4 #Baso 0.0 10^3/m3 0.0-0.2 Laboratory test finding 04/16/2023 [facility] [address] [place], [place] [id number] [phone] Uric Acid 5.3 mg/dL 2.5-7.5 R.A. Factor <10.0 IU/mL 0.0-20.0 Raina NEGATIVE Sed Rate 37 High 0-15 Lyme Disease AB W/RFX To Blot (Igg,Igm) 04/16/[address] [place] [address] [phone] Lyme AB Screen <0.90 index Normal 2 Laboratory test finding 04/16/[address] [place] [address] [phone] Clinical PDF Report [id number] SEE IMAGE Microalbumin Urine 04/11/2023 [facility] [address] [place] [address] [phone] Urine Creat 74 mg/dL Comment Microalbumin 7.8 mg/dL High 0.0-1.8 3 ug/mgCREATININE 105 ug/mg High 0-29 CBC W/Diff 04/04/2023 [facility] [address] [place] [address] [phone] WBC 6.1 10^3/M3 3.1-9.2 RBC 3.34 10^6/M3 Low 4.00-5.80 HGB 9.4 GR/DL Low 12.5-17.5 HCT 29.3 % Low 37.5-52.5 MCV 88.0 CUMICR 82.6-95.8 MCH 28.3 PICOGR 27.9-32.9 MCHC 32.2 % Low 32.6-35.4 RDW 16.5 % High 11.4-14.6 PLT 285 10^3/M3 140-350 MPV 7.9 CUMICR 7.0-10.6 %Neut 68.7 % 40.0-75.0 %Lymph 7.8 % Low 17.0-45.0 %[place] 9.3 % 1.0-11.0 %Eos 13.1 % High 0.0-6.0 %Baso 1.1 % 0.0-2.0 #Neut 4.2 10^3/M3 1.5-8.0 #Lymph 0.5 10^3/M3 Low 0.8-3.2 #[place] 0.6 10^3/M3 0.0-0.8 #Eos 0.8 10^3/m3 High 0.0-0.4 #Baso 0.1 10^3/m3 0.0-0.2 Comp. Met 04/04/2023 [facility] [address] [place] [address] [phone] Glucose 116 mg/dL High 70-110 BUN 45 [...] GFR 24 ML/MIN/1.73SQM Low >60 Hba1c 04/04/2023 [facility] [address] [place], [place] [address] [phone] A1c 5.70 % 4.70-6.50 4 Laboratory test finding 04/04/2023 [facility] [address] [place] [address] [phone] Ferritin 50.30 ng/mL 22.00-415.0 Iron Panel([employer]) 04/04/2023 [facility] [address] [place], [place] [id number] [phone] Iron 33 g /dL Low 45-140 % Saturation 11 % Low 30-35 Lipid 04/04/2023 [facility] [address] [place] [address] [phone] Cholesterol 121 mg/dL 0-200 5 Triglyceride 71 mg/dL 0-150 6 HDLD 38 mg/dL See Comment 7 Measured LDL 70 mg/dL 0-130 8 Calc VLDL 14.2 mg/dL See Comment 9 Chol/HDL 3.2 RATIO See Comment 10 Non-HDL 83 mg/dL See Comment 11 Laboratory test finding 04/04/2023 [facility] [address] [place] [address] [phone] TSH 2.51 uIU/mL 0.50-6.00 FRT4 0.79 ng/dL 0.75-1.54 Tibc 04/04/2023 [facility] [address] [place] [address] [phone] Tibc 297 g /dL 260-400 Transferrin 212 mg/dL 200-400 Urine Isolate#1 03/19/2023 [facility] [address] [place] [address] [phone] Isolate #1 Enterococcus mar <SEE NOTE> 12 Ampicillin >8 R Ciprofloxacin >2 R Levofloxacin >4 R Linezolid <=2 S Nitrofurantoin <=32 S Penicillin >8 R Rifampim >2 R Tetracycline >8 R Vancomycin >16 R Urinalysis 03/19/2023 [facility] [address] [place], [place] [phone] Color LIGHT-YELLOW Appearance CLEAR Clear Spec.Grav. 1.010 1.005-1.025 Leukocytes LARGE Abnormal Negative Nitrite NEGATIVE Negative PH 6.0 6.0-7.5 Protein TRACE Abnormal Negative Urine Glucose NEGATIVE Negative Ketone NEGATIVE Negative Urobilinogen NORMAL E.U./DL Normal Bilirubin NEGATIVE Negative Blood NEGATIVE Negative WBC-U TNTC /HPF Abnormal 0-5/HPF RBC-U 3-5 /HPF 0-5/HPF Bacteria 1+ Abnormal None Seen Squamous 0-2 /HPF 0-5/HPF Laboratory test finding 03/19/2023 [facility] [address] [place] [address] [phone] BNP 904.0 pg/mL Critical high 0.0-100.0 BMP 03/19/2023 [facility] [address] [place], [place] [phone] Glucose 132 mg/dL High 70-110 BUN 43 mg/dL High 6-25 Creatinine 3.1 mg/dL Critical high 0.7-1.3 13 Sodium 141 mEq/L 135-145 Potassium 4.0 mEq/L 3.5-5.0 Chloride 105 mEq/L 95-107 Co-2 22 mEq/L Low 24-31 Calcium 9.1 mg/dL 8.5-10.6 GFR 21 ML/MIN/1.73SQM Low >60 CBC W/Diff 03/19/2023 [facility] [address] [place] [address] [phone] WBC 6.3 10^3/M3 3.1-9.2 RBC 3.06 10^6/M3 Low 4.00-5.80 HGB 9.0 GR/DL Low 12.5-17.5 HCT 29.4 % Low 37.5-52.5 MCV 95.8 CUMICR 82.6-95.8 MCH 29.4 PICOGR 27.9-32.9 MCHC 30.7 % Low 32.6-35.4 RDW 17.6 % High 11.4-14.6 PLT 266 10^3/M3 140-350 MPV 8.2 CUMICR 7.0-10.6 %Neut 76.3 % High 40.0-75.0 %Lymph 7.3 % Low 17.0-45.0 %[place] 8.7 % 1.0-11.0 %Eos 7.0 % High 0.0-6.0 %Baso 0.7 % 0.0-2.0 #Neut 4.8 10^3/M3 1.5-8.0 #Lymph 0.5 10^3/M3 Low 0.8-3.2 #[place] 0.5 10^3/M3 0.0-0.8 #Eos 0.4 10^3/m3 0.0-0.4 #Baso 0.0 10^3/m3 0.0-0.2 Laboratory test finding 03/19/2023 [facility] (In Office Test) Sars Rna QL PCR - In Office Not Detected. Urine Culture 03/19/2023 [facility] [address] [place], [place] [address] [phone] Urine Source URINE Total Col Count >100,000 COL/CC Renal Panel 02/28/2023 [facility] [address] [place], [place] 6[address] [phone] Glucose 96 mg/dL 70-110 14 BUN 56 mg/dL High 6-25 Creatinine 2.9 mg/dL High 0.7-1.3 Sodium 142 mEq/L 135-145 Potassium 4.4 mEq/L 3.5-5.0 Chloride 109 mEq/L High 95-107 Co-2 23 mEq/L Low 24-31 Calcium 8.4 mg/dL Low 8.5-10.6 Phosphorus 3.3 mg/dL 2.5-4.8 Albumin 3.5 g/dL 3.0-5.2 GFR 22 Low >60 CBC No Diff 02/28/2023 [facility] [address] [place] [address] [phone] WBC 5.9 10^3/M3 3.1-9.2 RBC 2.90 10^6/M3 Low 4.00-5.80 HGB 8.6 GR/DL Low 12.5-17.5 HCT 27.9 % Low 37.5-52.5 MCV 96.3 CUMICR High 82.6-95.8 MCH 29.6 PICOGR 27.9-32.9 MCHC 30.8 % Low 32.6-35.4 RDW 18.5 % High 11.4-14.6 PLT 238 10^3/M3 140-350 MPV 8.0 CUMICR 7.0-10.6 Laboratory test finding 02/28/2023 [facility] [address] [place] [address] [phone] Vitd-25Oh 46 ng/mL 30-100 Laboratory test finding 02/13/2023 [facility] [address] [place] [address] [phone] Magnesium 2.1 mg/dL 1.7-2.8 15 BMP 02/13/2023 [facility] [address] [place] [address] [phone] Glucose 99 mg/dL 70-110 16 BUN 59 mg/dL High 6-25 Creatinine 3.0 mg/dL High 0.7-1.3 Sodium 142 mEq/L 135-145 Potassium 3.8 mEq/L 3.5-5.0 Chloride 106 mEq/L 95-107 Co-2 27 mEq/L 24-31 Calcium 9.0 mg/dL 8.5-10.6 GFR 22 Low >60 Laboratory test finding 02/13/2023 [facility] [address] [place] [address] [phone] BNP 490.0 pg/mL Critical high 0.0-100.0 17 H & H 02/13/2023 [facility] [address] [place], [place] [address] [phone] HGB 9.9 GR/DL Low 12.5-17.5 HCT 30.6 % Low 37.5-52.5 Renal Panel 02/05/2023 [facility] [address] [place] [address] [phone] Glucose 104 mg/dL 70-110 18 BUN 42 mg/dL High 6-25 Creatinine 3.0 mg/dL High 0.7-1.3 Sodium 150 mEq/L High 135-145 Potassium 4.9 mEq/L 3.5-5.0 Chloride 114 mEq/L High 95-107 Co-2 25 mEq/L 24-31 Calcium 8.9 mg/dL 8.5-10.6 Phosphorus 3.7 mg/dL 2.5-4.8 Albumin 3.8 g/dL 3.0-5.2 GFR 22 Low >60 CBC No Diff 02/05/2023 [facility] [address] [place] [address] [phone] WBC 5.1 10 3.1-9.2 RBC 3.28 10 Low 4.00-5.80 HGB 9.6 GR/DL Low 12.5-17.5 HCT 30.9 % Low 37.5-52.5 MCV 94.4 CUMICR 82.6-95.8 MCH 29.3 PICOGR 27.9-32.9 MCHC 31.1 % Low 32.6-35.4 RDW 17.8 % High 11.4-14.6 PLT 195 10 140-350 MPV 8.2 CUMICR 7.0-10.6 Laboratory test finding 02/05/2023 [facility] [address] [place] [address] [phone] Vitd-25Oh 38 ng/mL 30-100 1 please fax results t o: Dr. Kearns number: [phone] 2 Index Interpretation ----- < 0.90 Negative 0.90-1.09 [...] the period when erythema migrans is apparent. 3 *[employer] USES MICROALBUMIN/CREATINE RATIO : *<30 ug/mg CREATININE IS CLASSIFIED NORMAL *30-300 ug/mg CREATININE IS CLASSIFIED CLINICAL MICROALBUMINURIA *>300 ug/mg CREATININE IS CLASSIFIED CLINICAL ALBUMINURIA CLASSIFICATION OF A PATIENT SHOULD BE BASED ON TWO OF THREE ABNORMAL RESULTS COLLECTED WITHIN A 3 TO 6 MONTH TIME FRAME* 4 MEAN GLUCOSE IN mg/d L/A1c% POOR CONTROL FAIR CONTROL GOOD CONTROL EXCELLENT CONTROL 360-14 210-9 180-8 120-6 330-13 150-7 90-5 300-12 270-11 240-10 5 CHOLESTEROL Less than 200mg/dl Low risk 201-239 mg/dl Borderline risk Equal to or greater 240mg/dl High risk CHOLESTEROL COMMENTS REPORT FAXED TO DOCTOR, REQUESTED ON REQUISITION. 6.28.23 ESEQUIEL 6 TRIGLYCERIDES Less than 150mg/dl Normal 150-199mg/dl Borderline 200-499mg/dl High Greater than 500mg/dl Very High 7 HDL <40mg/dl Elevated Risk 41-59mg/dl Risk >=60mg/dl Least Risk 8 LDL <100mg/dl Optimal 100-129mg/dl Near Optimal 130-159mg/dl Borderline High 160-189mg/dl High >=190 Very High 9 VLDL Less than 30mg/dl Normal 10 CHOL/HDL <4.0 Optimal 4.0-5.0 Borderline >6.0 High Risk 11 NON-HDL 30mg/dl higher than LDL Target 12 Enterococcus faecium VRE 13 CRITICAL RESULTS LUCI IFIED, FAXED, AND CALLED TO TANK JACKSON @ 12:1003/20/23 MH 14 REPORT FAXED TO DOCT OR, REQUESTED ON REQUISITION.03/01/23 LM 15 Please fax results t chandrika Baez PA-C [phone] 16 REPORT FAXED TO DOCT OR, REQUESTED ON REQUISITION.02/14/23 LM 17 CRITICAL RESULTS LUCI IFIED, FAXED, AND CALLED TO LASHON HENRY @ 4:09. 02/13/23 MH 18 REPORT FAXED TO DOCT OR, REQUESTED ON REQUISITION. 02.06.23 ESEQUIEL Procedures Date Code Description Status 07/06/2023 80326 Venipuncture Routine Complet ed 05/10/2023 95079 Venipuncture Routine Complet ed 05/10/2023 1111F D/C Medications Reconciled W/Current Medications In Outpt MR Completed 05/04/2023 1111F D/C Medications Reconciled W/Current Medications In Outpt MR Completed 04/16/2023 03698 Pulse Oximetry Single Determ ination Completed 04/16/2023 56593 Venipuncture Routine Complet ed 04/11/2023 3078F PVRP Diastolic BP <80 mmHg C ompleted 04/11/2023 1100F PT Screened Futu re Fall Risk >/=2 Falls In Past Yr/1 W/Injury Completed 04/11/2023 3074F PVRP Systolic BP <130 mmHg C ompleted 04/11/2023 3288F Fall Risk Assessment Documen awais Completed 04/11/2023 3725F Screening Depression Perform ed Completed 04/11/2023 08773 Fundus Eye Exam Completed 04/04/2023 35951 Venipuncture Routine Complet ed 03/19/2023 53683 Venipuncture Routine Complet ed 02/28/2023 79552 Venipuncture Routine Complet ed 02/13/2023 62520 Venipuncture Routine Complet ed 01/15/2023 1111F D/C Medications Reconciled W/Current Medications In Outpt MR Completed 01/12/2023 1111F D/C Medications Reconciled W/Current Medications In Outpt MR Completed Medical Devices Description No Information Available Encounters Type Date Location Provider Dx Diagnosis Office Visit 05/10/2023 9[facility] [place] [facility] [place], DO J96.01 Acute respiratory failure with hypoxia J18.9 Pneumonia, unspecifi ed organism F33.1 Major depressive dis order, recurrent, moderate Office Visit 04/16/2023 9[facility]a [place], DO M15.9 Polyosteoarthritis, unspecified R05.9 Cough, unspecified Office Visit 04/11/2023 9:00a [place] Vinod Pang JR, DO Z00.01 Encounter for general [...] with diabetic nephropathy Office Visit 03/19/2023 1:00p [place] Adam R Ohnm acht, DO R06.02 Shortness of breath Office Visit 01/15/2023 11:00a [place] Pierre cortes, PA-C N40.1 Benign prostatic hyperplasia with lower urinary tract symp A41.50 Gram-negative sepsis , unspecified Assessments Date Code Description Provider 07/06/2023 N18.9 Chronic kidney disease, unsp ecified [facility] - [place] 05/10/2023 J96.01 Acute respiratory failure wi th hypoxia Vinod Pang JR, DO 05/10/2023 J18.9 Pneumonia, unspecified organ ism Vinod Pang JR, DO 05/10/2023 F33.1 Major depressive disorder, recurrent, moderate Vinod Pang JR, DO 04/16/2023 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 Vinod Pang JR, DO 04/16/2023 R05.9 Cough, unspecified Vinod Pang JR, DO 04/11/2023 Z00.01 Encounter for [facility] adult medical examination with abnormal findings Vinod [...] hyperp arathyroidism of renal origin Lab - [place] 04/04/2023 E78.00 Pure hypercholesterolemia, u nspecified Vinod Pnag JR, DO 04/04/2023 E78.00 Pure hypercholesterolemia, u nspecified Lab - [place] 04/04/2023 E88.81 Metabolic syndrome Vinod Pang JR, DO 04/04/2023 E88.81 Metabolic syndrome Lab - [place] 04/04/2023 D64.9 Anemia, unspecified Vinod Pang JR, DO 04/04/2023 E11.21 Type 2 diabetes mellitus with diabetic nephropathy Vinod Pang JR, DO 03/19/2023 R06.02 Shortness of breath Migel menchacamacht, DO 02/28/2023 N17.9 Acute kidney failure, unspec ified Vinod Pang JR, DO 02/28/2023 N17.9 Acute kidney failure, unspec ified Lab - [place] 02/28/2023 E55.9 Vitamin D deficiency, unspec ified Vinod Pang JR, DO 02/28/2023 E55.9 Vitamin D deficiency, unspec ified Lab - [place] 02/28/2023 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, stag e 4 (severe) Vinod Pang JR, DO 02/28/2023 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, stag e 4 (severe) Lab - [place] 02/13/2023 I50.9 Heart failure, unspecified K dusty Pang JR, DO 02/13/2023 I50.9 Heart failure, unspecified L ab - [place] 02/13/2023 E11.21 Type 2 diabetes mellitus with diabetic nephropathy Vinod Pang JR, DO 02/05/2023 N17.9 Acute kidney failure, unspec ified Vinod Pang JR, DO 02/05/2023 N17.9 Acute kidney failure, unspec ified Lab - [place] 02/05/2023 E55.9 Vitamin D deficiency, unspec ified Vinod Pang JR, DO 02/05/2023 E55.9 Vitamin D deficiency, unspec ified Lab - [place] 02/05/2023 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, stag e 4 (severe) Vinod Pang JR, DO 02/05/2023 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, stag e 4 (severe) Lab - [place] 01/15/2023 N40.1 Benign prostatic hyperplasia with lower urinary tract symptoms Pierre Costa PA-C 01/15/2023 A41.50 Gram-negative sepsis, unspec ified Pierre Costa PA-C Plan of Treatment Future Appointment(s):* 07/11/2023 6:30 am - [facility] [place] [facility] [place] * 07/17/2023 11:00 am - Vinod Pang JR, DO at [place] 05/10/2023 - Vinod Pang JR, DO* J96.01 Acute respiratory failure with hypoxia * J18.9 Pneumonia, unspecified organism * F33.1 Major depressive disorder, recurrent, moderate * All* Follow up:* Follow up in 1 month or sooner as needed. Functional Status Description No Information Available Mental Status Description No Information Available Referrals Refer to Dr Reason for Referral Status Appt Timothy e Rheumatology - [facility] Created [address] [place] [phone] Kenny Silva [address] [place] [address] Dr Hunter 4 [phone]
--- OUTSIDE RECORDS SUMMARY | 2023-08-21 23:50 | External Medical Summary | Summary of Care ---
Author Name Unknown Organization [facility] Address [address] [place] [address] Phone [phone] Care Team Providers Care Hoop Puncher Name Role Phone Poly Basilio DO, Kenneth Primary Care Provider [phone] Reason for Visit * Reason Comments IV Therapy Venofer Encounter Details Date Type Department Care Team Description 05/23/2023 Hem/Onc Treatment Hematology/Oncology Treatment, [facility] [address] [place] [address] [facility], Chair1 Hem Onc [address] [place] [address] Anemia, unspecified type* Allergies No known active allergiesdocumented as of this encounter (statuses as of 07/01/2023) Medications Medication Sig Dispensed Refills Start Date [...] as of this encounter (statuses as of 07/01/2023) Active Problems Problem Noted Date Acute on [...] as of this encounter (statuses as of 07/01/2023) Immunizations Name Administration Dates Next Due Pneumococcal [...] do you have serious difficulty h earing? Yes-[place] 04/29/2023 Are you blind or do you [...] 9:27 AM EDT 300 mg 166.67 mL/hr NSS infusion 500 mL, Intravenous, at 50 mL/hr, CONTINUOUS, Starting on Sun05/23/23 at 1000, Until Sun05/23/23 at 1535 Start Infusion 05/23/2023 9:06 AM EDT 500 mL 50 mL/hr documented [...] the patient have Health Care Power of Box Sealing Inspector? No Bag Valve Device? No Intubation? No [...] the patient have Health Care Power of Box Sealing Inspector? No Care Teams Hoop Puncher Relationship Specialty Start Date End Date Vinod Pang Jr., DO [address] [facility] [place] [address] PCP - General 04/26/09 documented as of this encounter
--- OUTSIDE RECORDS SUMMARY | 2023-08-21 23:50 | External Medical Summary | Continuity of Care Document ---
Author Name Unknown Organization [facility] [address] [facility] Address [address] [place], [place] [id number] Care Team Providers Care Jewelry Facer Name Role Phone Vinod Pang Jr. Primary Care Physician [phone] Encounter [facility] ACEVERÓNICAR [id number] Date(s): 05/21/23 - 05/21/23 [facility] [address], [address] [place] [address] [phone] Encounter Diagnosis End stage renal disease(Discharge Diagnosis) - 05/21/23 PAD (peripheral artery disease)(Discharge Diagnosis) - 05/21/23 Discharge Disposition: Home or Self Care Attending Physician: MD Sadler Eugene J Referring Physician: MD Urmila, Reanna Allergies, Adverse Reactions, Alerts No Known Allergies Assessment and Plan Extracted from: Title:Clinical Document Author:ANN Monterroso Lynn Date:05/21/23 [facility] OUTPATIENT NOTE Name: MEG FINK Patient Number: [id number] : 1945 Date of Service: 05/21/2023 Chief Complaint: _Follow-up to discuss AV fistula HPI: _Mr. Rojas is an elderly male who presents to Dr. Sadler's vascular surgery clinic today to reevaluate his right radiocephalic AV fistula. This was initially placed by Dr. Sadler back in 2019 due to him likely needing to go on dialysis at some point in the future. He is not yet on hemodialysis, however, his rad technologist has asked that we reevaluate his fistula to see if it has reached appropriate maturity for dialysis use. Patient denies any pain problems related to his right arm or hand. In addition to his fistula, he is followed at [facility] vascular surgery department for a right leg femoral to distal posterior tibial artery nonreversed saphenous vein bypass which was performed in [address] Suleiman Pollard. [place] [facility] [place], and he had unfortunately no-show to his appointment since that time. He did undergo an ultrasound evaluation of his bypass and October 2022, which had demonstrated no significant changes compared to previous. Initially patient had undergone 2 failed prosthetic bypasses in the right leg at an outside facility, and required fasciotomies after his second bypass. He then presented [place] [facility] and underwent his successful vein bypass with Dr. Pollard. Patient admits some chronic tingling and foot discomfort bilaterally, worse in the right foot than the left. He states he does not walk as far as he used to, but denies significant claudication symptoms in the right leg. He denies any rest pain or nonhealing wounds or ulcerations or discoloration of the foot. He does state to having some chronic swelling in the right leg ever since having multiple surgeries in the leg including fasciotomies in the past. Imaging: Ultrasound of his right arm AV fistula done on 05/21/2023 demonstrates a patent fistula throughout without evidence of stenosis, but with an inadequate flow volume of 524 mL/min. This is a slight increase in the flow volume in comparison to his postop ultrasound from 3 years ago. Current Home Meds: (Last Updated 05/21 14:17) apixaban (Eliquis 5 mg oral tablet) 5 mg PO bid atorvastatin 80 mg PO Daily bumetanide (bumetanide 1 mg oral tablet) 1 mg PO Daily citalopram (citalopram 20 mg oral tablet) 20 mg PO qhs clopidogrel (clopidogrel 75 mg oral tablet) 75 mg PO Daily epoetin neptali (Procrit 10,000 units/mL injectable solution) ferrous sulfate infusions at [facility] finasteride (finasteride 5 mg oral tablet) 5 mg PO Daily Women of childbearing age should not touch or handle broken tablets. - Thania Lebron 01/03 12:32 Allergies and Sensitivities: NKA Past Medical History: Problems: PAD (peripheral artery disease) End stage renal disease Preop testing Weight disorder Peripheral arterial disease Retention of urine Tobacco user Intermittent claudication Frequent urination Erectile dysfunction Arthritis Depression Acid reflux Stomach ulcer Leg pain DVT (deep venous thrombosis) High cholesterol Hypertension OBJECTIVE Vitals: Last Updated 05/21/23 13:12 Date Temp BP Location Pulse RR SpO2 Pain 05/21/23 0 05/21/23 106/62 Left Arm 69 95 07/31/22 37.1 130/60 Left Arm 87 16 96 Vital Signs are the last 3 documented. No Orthostatic Data Available Height and Weight: Last Updated 07/31/22 08:39 Date BMI Wt(kg) Wt(lb) Method Ht(cm) (ft-in) Method 07/31/22 31.78 89.7 197 Standing Scale 168 5-6 Standing 04/25/22 31.75 89.6 197 Standing Scale 168 5-6 Standing 02/21/22 32.56 91.9 202 Standing Scale 168 5-6 Standing Heights and Weights are the last 3 documented. Physical Exam Constitutional: In general patient is a mildly chronically appearing elderly male no distress. Is alert and oriented without any focal deficits. His right forearm AV fistula demonstrates a thrill throughout, but this does appear to have some branches. His hand demonstrates brisk capillary refill and full strength. His bilateral lower extremities demonstrate palpable distal pulses and brisk capillary refill to the feet. He does have +3 pitting edema of the right lower leg and many old surgical scars in the right leg as well. ASSESSMENT: _ PLAN: _ 1 ) _end-stage renal disease Patient is not yet on hemodialysis, but may need to start in the near future according to his rad technologist. His fistula appears to be not yet matured for hemodialysis, despite having been placed over 3 years ago. At this point we recommended that the patient consider undergoing a fistulogram with balloon assisted maturation in order to ready his fistula for hemodialysis. The procedure, risks, benefits and alternatives were discussed with the patient by myself at Dr. Sadler's request. Patient expressed understanding and agreement to proceed. His was also present with him today as well. 2 ) _peripheral arterial disease Patient does have rather extensive history of revascularization of the right leg, and his most recent ultrasound in October did not demonstrate any significant changes in comparison to previous ultrasounds. He does not have any new concerning symptoms, and his foot appears well-perfused. We would like to reevaluate this after his fistulogram. We did offer to have the patient return here for follow-ups and as it is more convenient for him, and patient will consider this. He will call with any other questions. Thank you for letting us participate in the care of this patient. Immunizations Given and Recorded Vaccine Date Status Refusal Reason pneumococcal 23-valent vaccine 4/26/14 Given Medications atorvastatin Start: 01/11/21 15:59:00 EDT, [...] 07/11/21 14:24:00 EDT, See Instructions, infusions at [facility] Start Date: 07/11/21 Status: Ordered finasteride 5 mg oral tablet Start: 01/03/21 12:31:00 EDT, 1 tab, PO, Daily Start Date: 01/03/21 Status: Ordered Procrit 10,000 units/mL injectable solution Start: 05/21/23 13:06:00 EDT Start Date: 05/21/23 Status: Ordered Mental Status 05/21/23 Barriers to Learning one year Hearing de ficit Mandatory Health Literacy Documentation Yes Health Literacy Communication Barriers N ever Primary Language Sudanese Problem List Condition Confirmation Course Effective Dates [...] user Confirmed Active Weight disorder Confirmed Active Diagnosis Diagnosis Type Effective Dates Health Status Cl inical Service Informant PAD (peripheral artery disease) Discharge Diagnosis 05/21/23 End stage renal disease Discharge Diagnosis 05/21/23 Procedures Procedure Date Related Diagnosis Body Site Status Right wrist avf creation 04/02/19 Completed Removal of tunneled permcath 03/21/19 Completed Vascular Angioplasty 03/21/18 Comp leted Duplex scan of lower extremi ty arteries or arterial bypass grafts; complete bilateral study 05/25/15 Completed Abdominal aortogram 2013 Compl eted Bypass graft, with vein; femoral-anterior tibial, posterior tibial, peroneal artery or other distal vessels 1 2013 Completed Colonoscopy 2012 Completed Vascular surgery multiple 2013 Completed Cardiac Cath Cardiac Stented artery 2007 Completed Foot joint operations From A ccident @ Work 1994 Completed Procedure on back, L4 L5 Surgery 1991 Completed 1R Vital Signs Most recent to oldest [Reference Range]: 1 Heart Rate 69 bpm (05/21/23 1:10 PM) Blood Pressure 106/62mmHg (05/21/23 1:10 PM) Cuff Pulse Pressure 44 mmHg (05/21/23 1:10 PM) BP Location # 1 Left Arm (05/21/23 1:10 PM) Social History Social History Type Response Tobacco Former smoker Smoking Status Former Smoker, quit > 1 yr Sex Male HVI Outpt Note * ANN Monterroso, Tanja: PERFORM Event Display: HVI Outpt Note Authored Date: [id number] [facility] OUTPATIENT NOTE Name: MEG FINK Patient Number: [id number] : 1945 Date of Service: 05/21/2023 Chief Complaint: _Follow-up to discuss AV fistula HPI: _Mr. Rojas is an elderly male who presents to Dr. Sadler's vascular surgery clinic today to reevaluate his right radiocephalic AV fistula. This was initially placed by Dr. Sadler back in 2018 due to him likely needing to go on dialysis at some point in the future. He is not yet on hemodialysis, however, his rad technologist has asked that we reevaluate his fistula to see if it has reached appropriate maturity for dialysis use. Patient denies any pain problems related to his right arm or hand. In addition to his fistula, he is followed at [facility] vascular surgery department for a right leg femoral to distal posterior tibial artery nonreversed saphenous vein [facility] [address] [facility] [place] [facility] [place], and he had unfortunately no-show to his appointment since that time. He did undergo an ultrasound evaluation ofhis bypass and October 2022, which had demonstrated no significant changes compared to previous. Initially patient had undergone 2 failed prosthetic bypasses in the right leg at an outside facility, and required fasciotomies after his second bypass. He then presented [place] [facility] and underwent his successful vein bypass with Dr. Pollard. Patient admits some chronic tingling and foot discomfort bilaterally, worse in the right foot than the left. He states he does not walk as far as he used to, but denies significant claudication symptoms in the right leg. He denies any rest pain or nonhealing wounds or ulcerations or discoloration of the foot. He does state to having some chronic swelling in the right leg ever since having multiple surgeries in the leg including fasciotomies in the past. Imaging: Ultrasound of his right arm AV fistula done on 05/21/2023 demonstrates a patent fistula throughout without evidence of stenosis, but with an inadequate flow volume of 524 mL/min. This is a slight increase in the flow volume in comparison to his postop ultrasound from 3 years ago. Current Home Meds: (Last Updated 05/21 14:17) apixaban (Eliquis 5 mg oral tablet) 5 mg PO bid atorvastatin 80 mg PO Daily bumetanide (bumetanide 1 mg oral tablet) 1 mg PO Daily citalopram (citalopram 20 mg oral tablet) 20 mg PO qhs clopidogrel (clopidogrel 75 mg oral tablet) 75 mg PO Daily epoetin neptali (Procrit 10,000 units/mL injectable solution) ferrous sulfate infusions at [facility] finasteride (finasteride 5 mg oral tablet) 5 mg PO Daily Women of childbearing age should not touchor handle broken tablets. Robbie Lebron 01/03 12:32 Allergies and Sensitivities: NKA Past Medical History: Problems: PAD (peripheral artery disease) End stage renal disease Preop testing Weight disorder Peripheral arterial disease Retention of urine Tobacco user Intermittent claudication Frequent urination Erectile dysfunction Arthritis Depression Acid reflux Stomach ulcer Leg pain DVT (deep venous thrombosis) High cholesterol Hypertension OBJECTIVE Vitals: Last Updated 05/21/23 13:12 Date Temp BP Location Pulse RR SpO2 Pain 05/21/23 0 05/21/23 106/62 Left Arm 69 95 07/31/22 37.1 130/60 Left Arm 87 16 96 Vital Signs are the last 3 documented. No Orthostatic Data Available Height and Weight: Last Updated 07/31/22 08:39 Date BMI Wt(kg) Wt(lb) Method Ht(cm) (ft-in) Method 07/31/22 31.78 89.7 197 Standing Scale 168 5-6 Standing 04/25/22 31.75 89.6 197 Standing Scale 168 5-6 Standing 02/21/22 32.56 91.9 202 Standing Scale 168 5-6 Standing Heights and Weights are the last 3 documented. Physical Exam Constitutional: In general patient is a mildly chronically appearing elderly male no distress. Is alert and oriented without any focal deficits. His right forearm AV fistula demonstrates a thrill throughout, but this does appear to have some branches. His hand demonstrates brisk capillary refill and full strength. His bilateral lower extremities demonstrate palpable distal pulses and brisk capillary refill to the feet. He does have +3 pitting edema of the right lower leg and many old surgical scars in the right leg as well. ASSESSMENT: _ PLAN: _ 1 ) _end-stage renal disease Patient is not yet on hemodialysis, but may need to start in the near future according to his rad technologist. His fistula appears to be not yet matured for hemodialysis, despite having been placed over3 years ago. At this point we recommended that the patient consider undergoing a fistulogram with balloon assisted maturation in order to ready his fistula for hemodialysis. The procedure, risks, benefits and alternatives were discussed with the patient by myself at Dr. Sadler's request. Patient expressed understanding and agreement to proceed. His was also present with him today as well. 2 ) _peripheral arterial disease Patient does have rather extensive history of revascularization of the right leg, and his most recent ultrasound in October did not demonstrate any significant changes in comparison to previous ultrasounds. He does not have any new concerning symptoms, and his foot appears well-perfused. We would like to reevaluate this after his fistulogram. We did offer to have the patient return here for follow-ups and as it is more convenient for him, and patient will consider this. He will call with any other questions. Thank you for letting us participate in the care of this patient. Electronic Signature on File CC: Reanna Kearns MD [address] [facility] [address] [facility] [address] * CC: Ry Osullivan MD [address] [facility] [id number] * CC: Vinod Pang DO [place] [address] * Electronically Reviewed/Signed by: Tanja Monterroso PA-C Author Signature Dt/Tm:05/21/2023 03:50 PM [facility] [place] [address] [place] Patient Care team information Care Team Personnel Name: MD Aden Faisal Position: Physician - Vascular Surg Member Role: Lifetime Relationship Address: Address: [address] [place] [address] [place] Name: SARA Dietz Terra L Position: Nurse Pract - Vascular Surg Member Role: Lifetime Relationship Address: Address: [address] [place] [address] [place] Name: Poly Basilio DO, Kenneth L Position: Referring DIRECT Member Role: Primary Care Provider Address: Address: [place] [address] [place] Name: ANN Epperson Bridget M Position: Physician Paper Final Inspector - Vascular Surg Member Role: Lifetime Relationship Address: Address: [address] [place] [address] [place] Name: ANN Monterroso Lynn Position: Physician Paper Final Inspector Exempt - Vasc Surg Member Role: Lifetime Relationship Address: Address: [address] [place] [address] [place] Name: MD Ocasio Jansie Position: Physician - Anesthesiologist Member Role: Lifetime Relationship Address: Address: [address] [place] [address] [place] Care Team Related Persons Name: MARLEY TAYLOR Name: MARLEY TAYLOR Address: [address] [address] Name: MARLEY PRINCE Address: home [address] Name: REGINA FINK Address: [address] [facility], [id number]
--- OUTSIDE RECORDS SUMMARY | 2023-08-21 23:51 | External Medical Summary ---
Author Name Unknown Address Unknown Organization K1F:LABORATORY [facility] - [address] [place] [address] Laboratory Report Ordering Provider Test Date Status MEDARDO ADAMSON 05/02/2023 05:06:00 Final Observation Date Value Abnormality Reference (Units ) Status BUN 05/02/2023 05:06:00 65 Above high normal 6-20 (mg/dL) Final Creatinine 05/02/2023 05:06:00 3.6 Above high normal 0.6-1.2 (mg/dL) Final Glomerular filtration rate/1.73 sq M.predicted [Volume Rate/Area] in Serum, Plasma or Blood by Creatinine-based formula (CKD-EPI) 05/02/2023 05:06:00 17 Below low normal >=60 (mL/min) Final eGFR is calculated based on the CKD-EPI 2020 equation SODIUM 05/02/2023 05:06:00 142 135-146 (m mol/L) Final Potassium 05/02/2023 05:06:00 4.1 3.5-5.1 (m mol/L) Final Cl 05/02/2023 05:06:00 104 98-107 (mm ol/L) Final CO2 05/02/2023 05:06:00 27 22-32 (mmo l/L) Final Anion gap 05/02/2023 05:06:00 11 7-15 (mmol /L) Final Glucose 05/02/2023 05:06:00 99 70-120 (mg /dL) Final Calcium 05/02/2023 05:06:00 9.1 8.4-10.2 ( mg/dL) Final Performing Location [facility]ATORY [facility] - [address] [place] [address]
--- OUTSIDE RECORDS SUMMARY | 2023-08-21 23:51 | External Medical Summary | Continuity of Care Document ---
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 Name Role Phone GI - Gastroenterology Care Team Information Rece Fermín Harrell MD Care Team Information Receiv er [phone] Rory Hodge Care Team Information It Lead [phone] Nixon Aden MD Care Team Information It Lead [phone] Abran Eugene JR - Interven tional Pain Medicine Care Team Information It Lead [phone] Medardo Trinidad MD Care Team Information Receive r [phone] Sinan Marks MD Care Team Information Receive r [phone] Problems Active Problems Provider Date Chronic kidney [...] Atkinson JR, DO On set: 09/01/2015 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 Poly JR, DO 08/24/2021 Citalopram Wsysxegumbge42oe Tablets take one 1/2 tablets by mouth every day 135tabs F33.1 Matilda Atkinson JR, DO 06/23/2019 Gvphhsdohyx6sq Tablets Take One Tablet By Mouth Once Daily 30tabs Matilda Atkinson JR, DO 11/12/2017 Oxycodone-Acetaminoph en7.5-325mg Tablets take one tablet every 6 h as needed pain--ongoing therapy 60tabs Matilda Atkinson JR, DO 01/22/2014 Atorvastatin Achvrer47jr Tablets Take One Tablet By Mouth AT Bedtime 90tabs E78.0 Matilda Atkinson JR, DO E78.00 Yryyua06791Quzx/ML Solution 40,000 units monthly Unknown Vfejrrkkzn63dh Tablets 1 by mouth twice a day 180tabs Unknown Pantoprazole Bopmkv88ux Tablets DR 1 by mouth every day Unknown Ebffkfn5mr Tablets 1 by mouth twice a day Unknown Tamsulosin HCL0.4mg Capsules 1 by mouth every day Unknown Xxkacqnlui8ji Tablets 1 tab daily Unknow n History Medications Nitrofurantoin Monohyd Plonm820vk Capsules take 1 capsule twice daily for 10 days 20caps Gisella Lisa MD, PhD 03/23/2023 - 04/10/2023 Qotptwdshf019su Tablets take 1 tab by mouth twice [...] CPT Code Status Date Vaccine Lot # 09001 Given 10/04/2022 Influenza Vaccine High Do se 0.5ML [id number] U-FLU Given 10/04/2022 Influenza,Unspecified 26015 Given 08/11/2020 Influenza Vacci ne-Administered at another facility U-FLU Given 08/11/2020 Influenza,Unspecified U-FLU Given 08/23/2019 Influenza,Unspecified 93178 Given 08/23/2019 Influenza Vacci ne-Administered at another facility 88599 Given 07/11/2018 Influenza Vac, Split, Preservative Free High Dose Age 65 & > [id number] 36552 Given 10/02/2017 Pneumococcal Conjugate-Pr evnar 13 96744 Given 10/02/2017 Influenza Vac, Split, Preservative Free High Dose Age 65 & > 94340 Given 08/14/2016 Influenza Virus Vaccine, Quadrivalent, Im Use [id number] 77062 Given 09/01/2015 Influenza Vac, Split, Preservative Free High Dose Age 65 & > [id number] 28758 Given 09/01/2015 Pneumococcal Conjugate-Pr evnar 13 [id number] 68897 Given 07/21/2014 Influenza Vac, Split, Preservative Free High Dose Age 65 & > [id number] U-FLU Given 07/21/2014 Influenza,Unspecified 85297 Given 01/31/2014 Pneumococcal Vaccine/Pneu movax 23 90567 Given 07/17/2013 Influenza Vac, Split, Preservative Free High Dose Age 65 & > [id number] 15022 Given 07/24/2012 Influenza Vac, Split, Preservative Free High Dose Age 65 & > [id number] 79996 Given 07/04/2011 Influenza Vac, Split, Preservative Free High Dose Age 65 & > [id number] 08656 Given 08/16/2010 Pneumococcal Vaccine/Pneu movax 23 [id number] 12466 Given 10/21/2009 Influenza Vac, Split 3 Yr s And Up [id number] 69062 Given 07/24/2008 Influenza Vac, Split 3 Yr s And Up U-FLU Given 07/22/2008 Influenza,Unspecified 21541 Given 10/27/2004 Influenza Vac, Split 3 Yr s And Up 37566 Given 07/22/2004 Pneumococcal Vaccine/Pneu movax 23 [id number] Refused 04/11/2023 Moderna Sars-Co v-2 (Covid-19) vaccine, 100 mcg/ 0.5 mL 12Y+ 54516 Refused 04/11/2023 Shingrix 60011 Refused 07/26/2021 Moderna Sars-Co v-2 (Covid-19) vaccine, 100 mcg/ 0.5 mL 12Y+ 42480 Refused 09/28/2020 Tdap (Tetanus, diphtheria & acel. pertussis) Adacel or Boostrix 10102 Refused 09/28/2020 Shingrix 32430 Refused 08/19/2020 Influenza Virus Vaccine, Quadrivalent, Im Use 12481 Refused 07/11/2016 Influenza Vac, Split, Preservative Free [...] Facility Test Result H/L Range N ote CBC W/Diff 04/16/2023 [facility] [address] [place] [address] [phone] WBC 6.5 10^3/M3 3.1-9.2 RBC 3.57 10^6/M3 Low 4.00-5.80 HGB 10.0 GR/DL Low 12.5-17.5 HCT 31.3 % Low 37.5-52.5 MCV 87.7 CUMICR 82.6-95.8 MCH 27.9 PICOGR 27.9-32.9 MCHC 31.9 % Low 32.6-35.4 RDW 17.5 % High 11.4-14.6 PLT 263 10^3/M3 140-350 MPV 7.5 CUMICR 7.0-10.6 %Neut 71.5 % 40.0-75.0 %Lymph 6.1 % Low 17.0-45.0 %Bourbon 11.1 % High 1.0-11.0 %Eos 10.6 % High 0.0-6.0 %Baso 0.7 % 0.0-2.0 #Neut 4.7 10^3/M3 1.5-8.0 #Lymph 0.4 10^3/M3 Low 0.8-3.2 #Bourbon 0.7 10^3/M3 0.0-0.8 #Eos 0.7 10^3/m3 High 0.0-0.4 #Baso 0.0 10^3/m3 0.0-0.2 Laboratory test finding 04/16/2023 [facility] [address] [place], [place] [id number] [phone] Uric Acid 5.3 mg/dL 2.5-7.5 R.A. Factor <10.0 IU/mL 0.0-20.0 Raina NEGATIVE Sed Rate 37 High 0-15 Lyme Disease AB W/RFX To Blot (Igg,Igm) 04/16/[address] [email or web address] [place] [address] [phone] Lyme AB Screen <0.90 index Normal 1 Laboratory test finding 04/16/[address] [email or web address] [place] [address] [phone] Clinical PDF Report [id number] SEE IMAGE Microalbumin Urine 04/11/2023 [facility] [address] [place] [address] [phone] Urine Creat 74 mg/dL Comment Microalbumin 7.8 mg/dL High 0.0-1.8 2 ug/mgCREATININE 105 ug/mg High 0-29 CBC W/Diff 04/04/2023 [facility] [address] [place] [address] [phone] WBC 6.1 10^3/M3 3.1-9.2 RBC 3.34 10^6/M3 Low 4.00-5.80 HGB 9.4 GR/DL Low 12.5-17.5 HCT 29.3 % Low 37.5-52.5 MCV 88.0 CUMICR 82.6-95.8 MCH 28.3 PICOGR 27.9-32.9 MCHC 32.2 % Low 32.6-35.4 RDW 16.5 % High 11.4-14.6 PLT 285 10^3/M3 140-350 MPV 7.9 CUMICR 7.0-10.6 %Neut 68.7 % 40.0-75.0 %Lymph 7.8 % Low 17.0-45.0 %Bourbon 9.3 % 1.0-11.0 %Eos 13.1 % High 0.0-6.0 %Baso 1.1 % 0.0-2.0 #Neut 4.2 10^3/M3 1.5-8.0 #Lymph 0.5 10^3/M3 Low 0.8-3.2 #Bourbon 0.6 10^3/M3 0.0-0.8 #Eos 0.8 10^3/m3 High 0.0-0.4 #Baso 0.1 10^3/m3 0.0-0.2 Comp. Met 04/04/2023 [facility] [address] [place] [address] [phone] Glucose 116 mg/dL High 70-110 BUN 45 [...] GFR 24 ML/MIN/1.73SQM Low >60 Hba1c 04/04/2023 [facility] [address] [place] [address] [phone] A1c 5.70 % 4.70-6.50 3 Laboratory test finding 04/04/2023 [facility] [address] [place] [address] [phone] Ferritin 50.30 ng/mL 22.00-415.0 Iron Panel([employer]) 04/04/2023 [facility] [address] [place] [address] [phone] Iron 33 g /dL Low 45-140 % Saturation 11 % Low 30-35 Lipid 04/04/2023 [facility] [address] [place] [address] [phone] Cholesterol 121 mg/dL 0-200 4 Triglyceride 71 mg/dL 0-150 5 HDLD 38 mg/dL See Comment 6 Measured LDL 70 mg/dL 0-130 7 Calc VLDL 14.2 mg/dL See Comment 8 Chol/HDL 3.2 RATIO See Comment 9 Non-HDL 83 mg/dL See Comment 10 Laboratory test finding 04/04/2023 [facility] [address] [place] [address] [phone] TSH 2.51 uIU/mL 0.50-6.00 FRT4 0.79 ng/dL 0.75-1.54 Tibc 04/04/2023 [facility] [address] [place] [address] [phone] Tibc 297 g /dL 260-400 Transferrin 212 mg/dL 200-400 Urine Isolate#1 03/19/2023 [facility] [address] [place] [address] [phone] Isolate #1 Enterococcus mar <SEE NOTE> 11 Ampicillin >8 R Ciprofloxacin >2 R Levofloxacin >4 R Linezolid <=2 S Nitrofurantoin <=32 S Penicillin >8 R Rifampim >2 R Tetracycline >8 R Vancomycin >16 R Urinalysis 03/19/2023 [facility] [address] [place] [address] [phone] Color LIGHT-YELLOW Appearance CLEAR Clear Spec.Grav. 1.010 1.005-1.025 Leukocytes LARGE Abnormal Negative Nitrite NEGATIVE Negative PH 6.0 6.0-7.5 Protein TRACE Abnormal Negative Urine Glucose NEGATIVE Negative Ketone NEGATIVE Negative Urobilinogen NORMAL E.U./DL Normal Bilirubin NEGATIVE Negative Blood NEGATIVE Negative WBC-U TNTC /HPF Abnormal 0-5/HPF RBC-U 3-5 /HPF 0-5/HPF Bacteria 1+ Abnormal None Seen Squamous 0-2 /HPF 0-5/HPF Laboratory test finding 03/19/2023 [facility] [address] [place] [address] [phone] BNP 904.0 pg/mL Critical high 0.0-100.0 BMP 03/19/2023 [facility] [address] [place], [place] [address] [phone] Glucose 132 mg/dL High 70-110 BUN 43 mg/dL High 6-25 Creatinine 3.1 mg/dL Critical high 0.7-1.3 12 Sodium 141 mEq/L 135-145 Potassium 4.0 mEq/L 3.5-5.0 Chloride 105 mEq/L 95-107 Co-2 22 mEq/L Low 24-31 Calcium 9.1 mg/dL 8.5-10.6 GFR 21 ML/MIN/1.73SQM Low >60 CBC W/Diff 03/19/2023 [facility] [address] [place], [place] [phone] WBC 6.3 10^3/M3 3.1-9.2 RBC 3.06 10^6/M3 Low 4.00-5.80 HGB 9.0 GR/DL Low 12.5-17.5 HCT 29.4 % Low 37.5-52.5 MCV 95.8 CUMICR 82.6-95.8 MCH 29.4 PICOGR 27.9-32.9 MCHC 30.7 % Low 32.6-35.4 RDW 17.6 % High 11.4-14.6 PLT 266 10^3/M3 140-350 MPV 8.2 CUMICR 7.0-10.6 %Neut 76.3 % High 40.0-75.0 %Lymph 7.3 % Low 17.0-45.0 %Bourbon 8.7 % 1.0-11.0 %Eos 7.0 % High 0.0-6.0 %Baso 0.7 % 0.0-2.0 #Neut 4.8 10^3/M3 1.5-8.0 #Lymph 0.5 10^3/M3 Low 0.8-3.2 #Bourbon 0.5 10^3/M3 0.0-0.8 #Eos 0.4 10^3/m3 0.0-0.4 #Baso 0.0 10^3/m3 0.0-0.2 Laboratory test finding 03/19/2023 [facility] (In Office Test) Sars Rna QL PCR - In Office Not Detected. Urine Culture 03/19/2023 [facility] [address] [place] [address] [phone] Urine Source URINE Total Col Count >100,000 COL/CC Renal Panel 02/28/2023 [facility] [address] [place], [place] [phone] Glucose 96 mg/dL 70-110 13 BUN 56 mg/dL High 6-25 Creatinine 2.9 mg/dL High 0.7-1.3 Sodium 142 mEq/L 135-145 Potassium 4.4 mEq/L 3.5-5.0 Chloride 109 mEq/L High 95-107 Co-2 23 mEq/L Low 24-31 Calcium 8.4 mg/dL Low 8.5-10.6 Phosphorus 3.3 mg/dL 2.5-4.8 Albumin 3.5 g/dL 3.0-5.2 GFR 22 Low >60 CBC No Diff 02/28/2023 [facility] [address] [place], [place] [phone] [phone] WBC 5.9 10^3/M3 3.1-9.2 RBC 2.90 10^6/M3 Low 4.00-5.80 HGB 8.6 GR/DL Low 12.5-17.5 HCT 27.9 % Low 37.5-52.5 MCV 96.3 CUMICR High 82.6-95.8 MCH 29.6 PICOGR 27.9-32.9 MCHC 30.8 % Low 32.6-35.4 RDW 18.5 % High 11.4-14.6 PLT 238 10^3/M3 140-350 MPV 8.0 CUMICR 7.0-10.6 Laboratory test finding 02/28/2023 [facility] [address] [place] [address] [phone] Vitd-25Oh 46 ng/mL 30-100 Laboratory test finding 02/13/2023 [facility] [address] [place], [place] [phone] Magnesium 2.1 mg/dL 1.7-2.8 14 BMP 02/13/2023 [facility] [address] [place] [address] [phone] Glucose 99 mg/dL 70-110 15 BUN 59 mg/dL High 6-25 Creatinine 3.0 mg/dL High 0.7-1.3 Sodium 142 mEq/L 135-145 Potassium 3.8 mEq/L 3.5-5.0 Chloride 106 mEq/L 95-107 Co-2 27 mEq/L 24-31 Calcium 9.0 mg/dL 8.5-10.6 GFR 22 Low >60 Laboratory test finding 02/13/2023 [facility] [address] [place] [address] [phone] BNP 490.0 pg/mL Critical high 0.0-100.0 16 H & H 02/13/2023 [facility] [address] [place] [address] [phone] HGB 9.9 GR/DL Low 12.5-17.5 HCT 30.6 % Low 37.5-52.5 Renal Panel 02/05/2023 [facility] [address] [place] [address] [phone] Glucose 104 mg/dL 70-110 17 BUN 42 mg/dL High 6-25 Creatinine 3.0 mg/dL High 0.7-1.3 Sodium 150 mEq/L High 135-145 Potassium 4.9 mEq/L 3.5-5.0 Chloride 114 mEq/L High 95-107 Co-2 25 mEq/L 24-31 Calcium 8.9 mg/dL 8.5-10.6 Phosphorus 3.7 mg/dL 2.5-4.8 Albumin 3.8 g/dL 3.0-5.2 GFR 22 Low >60 CBC No Diff 02/05/2023 [facility] [address] [place], [place] [phone] WBC 5.1 10 3.1-9.2 RBC 3.28 10 Low 4.00-5.80 HGB 9.6 GR/DL Low 12.5-17.5 HCT 30.9 % Low 37.5-52.5 MCV 94.4 CUMICR 82.6-95.8 MCH 29.3 PICOGR 27.9-32.9 MCHC 31.1 % Low 32.6-35.4 RDW 17.8 % High 11.4-14.6 PLT 195 10 140-350 MPV 8.2 CUMICR 7.0-10.6 Laboratory test finding 02/05/2023 [facility] [address] [place] [address] [phone] Vitd-25Oh 38 ng/mL 30-100 1 Index Interpretation [...] when erythema migrans is apparent. 2 *[facility] [employer] [facility] [employer] USES MICROALBUMIN/CREATINE RATIO : [...] TO DOCTOR, REQUESTED ON REQUISITION. 6.28.23 ESEQUIEL 5 TRIGLYCERIDES Less than 150mg/dl Normal [...] ON REQUISITION.03/01/23 LM 14 Please fax results t o Litzy Baez PA-C [phone] F- [phone] REPORT FAXED TO DOCT [facility], REQUESTED ON REQUISITION.02/14/23 LM 16 CRITICAL RESULTS LUCI IFIED, FAXED, AND CALLED TO LASHON HENRY @ 4:09. 02/13/23 17 REPORT FAXED TO DOCT [facility], REQUESTED ON REQUISITION. 02.06.23 [facility] Procedures Date Code Description Status 05/10/2023 1111F D/C Medications Reconciled W/Current Medications In Outpt MR Completed 05/10/2023 23944 Venipuncture Routine Complet ed 05/04/2023 1111F D/C Medications Reconciled W/Current Medications In Outpt MR Completed 04/16/2023 50319 Pulse Oximetry Single Determ ination Completed 04/16/2023 30561 Venipuncture Routine Complet ed 04/11/2023 3078F PVRP Diastolic BP <80 mmHg C ompleted 04/11/2023 1100F PT Screened Futu re Fall Risk >/=2 Falls In Past Yr/1 W/Injury Completed 04/11/2023 3074F PVRP Systolic BP <130 mmHg C ompleted 04/11/2023 3288F Fall Risk Assessment Documen awais Completed 04/11/2023 3725F Screening Depression Perform ed Completed 04/11/2023 09732 Fundus Eye Exam Completed 04/04/2023 57811 Venipuncture Routine Complet ed 03/19/2023 87800 Venipuncture Routine Complet ed 02/28/2023 06698 Venipuncture Routine Complet ed 02/13/2023 51761 Venipuncture Routine Complet ed 01/15/2023 1111F D/C [...] moderate Office Visit 04/16/2023 9:15a Kylie Atkinson JR DO M15.9 Polyosteoarthritis, unspecified R05.9 Cough, unspecified Office Visit 04/11/2023 9:00a Kylie Atkinson JR, DO Z00.01 Encounter for general [...] with diabetic nephropathy Office Visit 03/19/2023 1:00p Kylie Ovalle Ohbere acht, DO R06.02 Shortness of breath Office Visit 01/15/2023 11:00a Kylie Watkins op, PA-C N40.1 Benign prostatic hyperplasia with lower urinary tract symp A41.50 Gram-negative sepsis , unspecified Assessments Date Code Description Provider 05/10/2023 J96.01 Acute respiratory failure wi th hypoxia Matilda Atkinson JR DO 05/10/2023 J18.9 Pneumonia, unspecified organ ism Matilda Atkinson JR, DO 05/10/2023 F33.1 Major depressive disorder, recurrent, moderate Matilda Atkinson JR, DO 04/16/2023 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 Matilda Atkinson JR, DO 04/16/2023 R05.9 Cough, unspecified Matilda Atkinson JR, DO 04/11/2023 Z00.01 Encounter for [facility] adult medical examination with abnormal findings [...] hyperp arathyroidism of renal origin Lab - [place] 04/04/2023 E78.00 Pure hypercholesterolemia, u nspecified Matilda Atkinson JR, DO 04/04/2023 E78.00 Pure hypercholesterolemia, u nspecified Lab - [place] 04/04/2023 E88.81 Metabolic syndrome Matilda Atkinson JR, DO 04/04/2023 E88.81 Metabolic syndrome Lab - [place] 04/04/2023 D64.9 Anemia, unspecified Matilda Atkinson JR, DO 04/04/2023 E11.21 Type 2 diabetes mellitus with diabetic nephropathy Matilda Atkinson JR, DO 03/19/2023 R06.02 Shortness of breath Migel hagen, DO 02/28/2023 N17.9 Acute kidney failure, unspec ified Matilda Atkinson JR, DO 02/28/2023 N17.9 Acute kidney failure, unspec ified Lab - [place] 02/28/2023 E55.9 Vitamin D deficiency, unspec ified Matilda Atkinson JR, DO 02/28/2023 E55.9 Vitamin D deficiency, unspec ified Lab - [place] 02/28/2023 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, stag e 4 (severe) Matilda Atkinson JR, DO 02/28/2023 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, stag e 4 (severe) Lab - [place] 02/13/2023 I50.9 Heart failure, unspecified K dusty Atkinson JR, DO 02/13/2023 I50.9 Heart failure, unspecified L ab - [place] 02/13/2023 E11.21 Type 2 diabetes mellitus with diabetic nephropathy Matilda Atkinson JR, DO 02/05/2023 N17.9 Acute kidney failure, unspec ified Matilda Atkinson JR, DO 02/05/2023 N17.9 Acute kidney failure, unspec ified Lab - [place] 02/05/2023 E55.9 Vitamin D deficiency, unspec ified Matilda Atkinson JR, DO 02/05/2023 E55.9 Vitamin D deficiency, unspec ified Lab - [place] 02/05/2023 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, stag e 4 (severe) Matilda Atkinson JR, DO 02/05/2023 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, stag e 4 (severe) Lab - [place] 01/15/2023 N40.1 Benign prostatic hyperplasia with lower urinary tract symptoms Pierre Costa PA-C 01/15/2023 A41.50 Gram-negative sepsis, unspec ified Pierre Costa PA-C Plan of Treatment Future Appointment(s):* 06/13/2023 11:15 am - Matilda Atkinson JR DO at [place] * 07/11/2023 6:30 am - [facility] [place] * 07/17/2023 11:00 am - Matilda Atkinson JR DO at [place] 05/10/2023 - Matilda Atkinson JR DO* J96.01 Acute respiratory failure with hypoxia * J18.9 Pneumonia, unspecified organism * F33.1 Major depressive disorder, recurrent, moderate * All* Follow up:* Follow up in 1 month or sooner as needed. Functional Status Description No Information Available Mental Status Description No Information Available Referrals Refer to Reason for Referral Status Appt Didi Silva [address] [place] [address] Dr Hunter 2 [phone]
--- OUTSIDE RECORDS SUMMARY | 2023-08-21 23:51 | External Medical Summary | Summary of Care ---
Author Name Unknown Organization [facility] Address [address] [place] [address] Phone [phone] Care Team Providers Care Wildfire Prevention Specialist Name Role Phone Poly Basilio DO, Kenneth Primary Care Provider [phone] Reason for Visit * Reason Comments Short of Breath * Auth/Cert Specialty Diagnoses / Procedures Referred By Contac t Referred To Contact Referral ID Status Reason Start Date Expiration Date Visits Re quested Visits Authorized [id number] Encounter Details Date Type Department Care Team Description 04/29/2023 - 05/02/2023 Hospital Encounter 4B [facility] 4th Floor [address] [place], [place] [id number] Thalia Silvestre MD [address] [place], [place] [id number] Maurice Andrews MD [address] [place] [id number] Ede Woodard MD [address] [place] [address] Ryan Gloria MD [address] [place] [address] [id number] Various: EKG,CDIQDC,KRAVS Allergies No known active allergiesdocumented as of this encounter (statuses as of 05/03/2023) Medications Medication Sig Dispensed Refills Start Date End Date Status PLAVIX 75 MG PO TABS 1 tablet daily 0 Active Vitron-C 65-125 MG Oral Tablet (Iron-Vitamin C) Take 2 Tablets by mouth in the morning. 0 Active Bumetanide 1 MG Oral Tablet (Bumex) Take 1 Tablet by mouth in the morning. Do not start before May 03, 2023. 60 Tablet 3 05/03/2023 Active Doxycycline Hyclate 100 MG Oral Tablet Take 1 Tablet by mouth in the morning and 1 Tablet before bedtime. Do all this for 3 days. 6 Tablet 0 05/02/2023 3 Active Apixaban 5 MG Oral Tablet (Eliquis) Take 1 Tablet by mouth in the morning and 1 Tablet before bedtime. 60 Tablet 3 05/02/2023 Active Cefdinir 300 MG Oral Capsule (Omnicef) Take 1 Capsule by mouth in the morning for 3 days. 3 Capsule 0 05/02/2023 3 Active Atorvastatin Calcium 80 MG Oral Tablet [...] mouth in the morning. 0 05/02/2023 Active ASPIRIN 81 MG PO TABS 1 [...] mg. 0 3 Discontinued Vitamin D, Ergocalciferol, 99020 units Capsule 50,000 Units. 0 3 Discontinued [...] as of this encounter (statuses as of 05/03/2023) Active Problems Problem Noted Date Acute on chronic respiratory failure wit h hypoxia 04/29/2023 Pneumonia 04/29/2023 Heart failure with acute decompensation, type unknown 04/29/2023 Cardiomyopathy 04/29/[address] Central venous catheter in place, perman ent 04/29/2023 HFrEF (heart failure with reduced ejecti on fraction) 04/29/2023 COPD (chronic obstructive pulmonary dise ase) 04/29/2023 Interstitial lung disease 04/29/2023 Paroxysmal atrial fibrillation 3 Anemia 06/20/2022 Type 2 diabetes mellitus 02/08/2022 Moderate malnutrition 04/11/2019 Febrile neutropenia 04/10/2019 Sepsis 04/10/2019 Atherosclerosis of coronary artery 04/10 CKD (chronic kidney disease) 04/10/2019 Lymphoma 04/10/2019 PVD (peripheral vascular disease) 2018 HTN (hypertension) 04/10/2019 HLD (hyperlipidemia) 04/10/2019 ADVANCE DIRECTIVE INFORMATION 06/07/2009 Overview: No, Advance Directive brochure offered , patient declined. documented as of this encounter (statuses as of 05/03/2023) Immunizations Name Administration Dates Next Due Pneumococcal [...] Sign Reading Time Taken Comments Blood Pressure 118/53 05/02/2023 7:38 AM EDT Pulse 73 05/02/2023 7:38 AM EDT Temperature 36.6 C (97.9 F) 05/02/2023 7:38 AM ED T Respiratory Rate 18 05/02/2023 7:38 AM EDT Oxygen Saturation 96% 05/02/2023 7:38 AM EDT Inhaled Oxygen Concentration - - Weight 82 kg (180 lb 12.4 oz) 05/02/2023 5:42 AM EDT Height 172.7 cm (5' 8") 04/29/2023 3:18 PM EDT Body Mass Index 27.49 04/29/2023 3:18 PM EDT documented in this encounter Functional Status Functional Status Response Date of Assess ment Are you deaf or do you have serious difficulty h earing? 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 RECOMMENDED TO DO FOR NEXT PROVIDER(S): BMP , CBC in 1 week REASON(S) FOR MEDICATION CHANGE(S): Pneumonia -Continue Cefdinir 300 mg twice a day and doxycycline 100 mg twice a day for 3 more days Paroxysmal atrial fibrillation , bradycardia Stop Cardizem Start Eliquis 5 mg bid Acute on chronic diastolic HF -bumex 1 mg daily DISPOSITION ON DISCHARGE: home Active Hospital Problems Diagnosis *Principal Diagnosis - Acute on chronic respiratory failure with hypoxia (HCC) Pneumonia Heart failure with acute decompensation, type unknown (HCC) Paroxysmal atrial fibrillation (HCC) Interstitial lung disease (HCC) HFrEF (heart failure with reduced ejection fraction) (HCC) Cardiomyopathy (HCC) COPD (chronic obstructive pulmonary disease) ([facility]) Central venous catheter in place, permanent Anemia Type 2 diabetes mellitus (HCC) Atherosclerosis of coronary artery CKD (chronic kidney disease) HTN (hypertension) HLD (hyperlipidemia) PVD (peripheral vascular disease) ([facility]) Resolved Hospital Problems No resolved problems to display. ADMISSION HISTORY & PHYSICAL EXAM (focused): HPI: 78-year-old with past medical history CAD, MAEGAN, chronic resp failure 4L at baseline, CKD, w/fistula but has not started HD, paroxysmal atrial fibrillation on Eliquis, COPD, interstitial lung disease, hypertension, hyperlipidemia, peripheral vascular disease, anemia on venofer and h/o lymphoma who presented to the ED for increasing shortness of breath. History limited Present and no family atbedside. Patient reports a fever with was at home that started around for today. He started getting more short of breath that started Sunday. He also reports wheezing as well. He reports that his right leg isat baseline edema. He is on chronic oxygen at home. Per chart review, patient reports chronic lung d ifficulties since COVID about 3 years ago. EMS was called due to severity of symptoms. Patient was placed on 6 L of oxygen but remained cyanotic. He was replaced on CPAP with rapid improvement. No other meds were given prior to arrival and patient was transported to the ED. his SpO2 was in the 90s prior to arrival. EMS reports 100 0.5 F temperature at home. Patient received acetaminophen, DuoNeb,60 mg Lasix, 125 mg Solu-Medrol, Zosyn and vanc while in the ED. sepsis dose fluids deferred due toconcerned about congestive heart failure. Patient's work of breathing improved when switched from CPAP to BiPAP. Patient has an AV fistula in his right forearm but has not started hemodialysis. Per chart review [facility] has recommended a defibrillator but this has not been placed due tofrequent infections. Patient reports that he is not currently on chemo for lymphoma. He reports that he is at baseline right lower extremity swelling due to prior leg surgeries. Prior echo in 2019 was unremarkable. I reviewed medications with pharmacy who had access to outpatient refill records. I updated the patient's medication list. He is not on maintenance inhalers nor is he on a beta-ruby. He is on Bumex and Eliquis. Outside med records report COPD, interstitial lung disease, cardiomyopathy and diabetes. ED workup significant for a BUN of 46 and creatinine of 2.9 and a potassium of 5.2. Lactate was normal. Troponin of 51. BNP 71839. ABG showed a normal pH with low CO2 of 28.3. PO2 was normal. INR 1.3. PT is 16.2. White blood cell count was normal with some mild anemia on hemoglobin hematocrit. Platelets were normal. LFTs are unremarkable. Chest x-ray showed increased bilateral interstitial infiltrates or edema. Resp pathogen negative. Blood cultures are pending. Patient referred to Hospital Medicine for acute on chronic respiratory failure with hypoxia due to pneumonia versus CHF exacerbation. Vitals on admission: BP: 128 mmHg/42 mmHg (04/29/23 1528) Pulse: 73 (04/29/23 1521) Temp: 36.72 C (04/29/23 1518) Resp: 24 (04/29/23 1518) SpO2: 97 % (04/29/23 1518) Physical Exam Vitals and nursing note reviewed. Exam conducted with a farm equipment engineer present. Constitutional: General: He is in acute distress. Appearance: Normal appearance. He is ill-appearing. HENT: Head: Normocephalic and atraumatic. Right Ear: Tympanic membrane, ear canal and external ear normal. Left Ear: Tympanic membrane, ear canal and external ear normal. Nose: Nose normal. Mouth/Throat: Pharynx: No oropharyngeal exudate or posterior oropharyngeal erythema. Eyes: Extraocular Movements: Extraocular movements intact. Conjunctiva/sclera: Conjunctivae normal. Pupils: Pupils are equal, round, and reactive to light. Cardiovascular: Rate and Rhythm: Normal rate and regular rhythm. Pulses: Normal pulses. Heart sounds: Normal heart sounds. No murmur heard. No friction rub. No gallop. Pulmonary: Effort: Tachypnea present. Breath sounds: No stridor. No wheezing, rhonchi or rales. Comments: Diffuse rales, distant breath sounds Abdominal: General: Abdomen is flat. Bowel sounds are normal. Palpations: Abdomen is soft. Musculoskeletal: Cervical back: No rigidity. Right lower le+ Pitting Edema present. Left lower le+ Pitting Edema present. Comments: AV fistula with bruit on rt forearm Skin: General: Skin is warm and dry. Capillary Refill: Capillary refill takes less than 2 seconds. Neurological: General: No focal deficit present. Mental Status: He is alert and oriented to person, place, and time. Psychiatric: Mood and Affect: Mood normal. Behavior: Behavior normal. HOSPITAL COURSE (focused): Manuel De La Cruz was admitted on 04/29 for acute hypoxic respiratory failure due to pneumonia with sepsis vs CHF exacerbation. At admission, labs were significant for acute kidney injury on chronic kidney disease 4, moderately elevated troponin and significantly elevated BNP, and bilateral lung infiltrates on chest X-ray. Pt reported using 4L nasal cannule at home at rest and 6L with activity, and came to the ED on BiPAP to reduce work of breathing. The first night of his stay, ventilation settings were changed to AVAPS to provide minimum respiratory rate and set inspiratory volume because of severe apnea. On suspicion of over-oxygenation, the team weaned his supplemental oxygen the next day. By the end of his third day he was breathing room air and able to maintain oxygen saturation in the 90s at rest, with ambulation, and while asleep. He was diuresed with IV furosemide and then transitioned to oral bumetanide at home dose. He is agreeable to continuing dailybumetanide at home. As of morning of discharge, he weighed about 12 pounds less than at admission. P t has remained afebrile with appropriate blood pressure and no evidence of sepsis. He will discharge on doxycycline + Cefdinir for empiric treatment of community-acquired pneumonia.His creatinines and electrolytes are stable .He had negative urine output. No indications for dialysis at this moment.For anemia, he was receiving iron in the outpatient setting. No need to give IV iron while the patient is being treated for possible infection. Operations & Procedures: none Complications: none applicable Significant Lab and Imaging Results: STUDIES: Labs and other studies reviewed with pertinent findings noted below: Imaging results XR CHEST 1 VIEW Result Date: 04/29/2023 IMPRESSION: Increased bilateral interstitial infiltrates or edema. THIS DOCUMENT HAS BEEN ELECTRONICALLY SIGNED BY VIDAL ESTES MD Results for orders placed or performed during the hospital encounter of 04/29/23 BLOOD GAS, ARTERIAL Result Value Ref Range Temperature 37.0 C pH, Arterial 7.431 7.350 - 7.450 units pCO2, Arterial 28.3 (L) 35.0 - 45.0 mmHg pO2, Arterial 90.6 75.0 - 100.0 mmHg Base Excess, Arterial -4.6 (L) -2.0 - 2.0 mmol/L Hemoglobin, Whole Blood 9.3 (L) 14.0 - 16.8 g/dL Oxyhemoglobin, Arterial 95.3 94.0 - 99.0 % total Hgb Carboxyhemoglobin, Whole Blood 1.8 (H) <=1.5 % total Hgb Methemoglobin, Whole Blood 0.6 <=1.5 % total Hgb Reduced Hemoglobin, Arterial 2.3 0.0 - 5.0 % total Hgb O2 Content, Arterial 12.5 (L) 15.0 - 24.0 %vol FiO2 35 % O2 Flow, Arterial Not Provided L/min Bicarbonate, Whole Blood 18.5 (L) 23.0 - 31.0 mmol/L RESPIRATORY PATHOGEN PANEL, PCR Result Value Ref Range Adenovirus by PCR Negative Negative Coronavirus 229E by PCR Negative Negative Coronavirus HKU1 by PCR Negative Negative Coronavirus NL63 by PCR Negative Negative Coronavirus OC43 by PCR Negative Negative Coronavirus SARS-CoV-2 by PCR Negative Negative Human Metapneumovirus by PCR Negative Negative Rhinovirus/Enterovirus by PCR Negative Negative Influenza A Virus by PCR Negative Negative Influenza B Virus by PCR Negative Negative Parainfluenza Virus 1 by PCR Negative Negative Parainfluenza Virus 2 by PCR Negative Negative Parainfluenza Virus 3 by PCR Negative Negative Parainfluenza Virus 4 by PCR Negative Negative Respiratory Syncytial Virus by PCR Negative Negative Bordetella pertussis by PCR Negative Negative Chlamydia pneumoniae by PCR Negative Negative Mycoplasma pneumoniae by PCR Negative Negative Bordetella parapertussis by PCR Negative Negative BASIC METABOLIC PANEL Result Value Ref Range BUN 46 (H) 6 - 20 mg/dL Creatinine 2.9 (H) 0.6 - 1.2 mg/dL Estimated Glomerular Filtration Rate 21 (L) >=60 mL/min Sodium 135 135 - 146 mmol/L Potassium 5.2 (H) 3.5 - 5.1 mmol/L Chloride 105 98 - 107 mmol/L CO2 19 (L) 22 - 32 mmol/L Anion Gap 11 7 - 15 mmol/L Glucose 163 (H) 70 - 120 mg/dL Calcium 8.6 8.4 - 10.2 mg/dL BNP, NT-PRO Result Value Ref Range BNP, NT-Pro 10,734 (H) <300 pg/mL HEPATIC FUNCTION PANEL Result Value Ref Range Albumin 3.1 (L) 3.8 - 5.0 g/dL AST 11 10 - 50 U/L Alkaline Phosphatase 54 35 - 130 U/L ALT 11 10 - 50 U/L Bilirubin, Total 0.5 <=1.2 mg/dL Bilirubin, Direct <0.2 0.0 - 0.3 mg/dL Protein 6.3 6.0 - 8.3 g/dL LACTATE WITH REFLEX IF ABNORMAL Result Value Ref Range Lactate 1.4 0.4 - 2.0 mmol/L MAGNESIUM Result Value Ref Range Magnesium 1.9 1.5 - 2.6 mg/dL PT INR Result Value Ref Range Prothrombin Time 16.2 (H) 11.6 - 15.2 seconds INR 1.3 (H) 0.8 - 1.2 TROPONIN T, HIGH SENSITIVITY Result Value Ref Range Troponin T, High Sensitivity 51 (H) <=22 ng/L CBC Result Value Ref Range WBC 9.56 4.00 - 10.80 K/uL RBC 3.46 4.50 - 5.25 M/uL HGB 9.8 (L) 14.0 - 16.8 g/dL HCT 31.4 (L) 40.0 - 48.4 % MCV 90.8 82.0 - 99.5 fL MCH 28.3 27.0 - 34.0 pg MCHC 31.2 32.0 - 36.0 g/dL RDW 16.3 11.5 - 15.5 % PLT 241 140 - 400 K/uL MPV 9.3 6.6 - 11.1 fL nRBCs 0 <=0 /100 WBCs DIFFERENTIAL, AUTOMATED Result Value Ref Range WBC 9.56 4.00 - 10.80 K/uL Neutrophils % 91.6 (H) 40.0 - 75.0 % Lymphocytes % 2.5 (L) 18.0 - 42.0 % Monocytes % 4.6 1.0 - 11.0 % Eosinophils % 0.6 0.0 - 6.0 % Basophils % 0.3 0.0 - 2.0 % Immature Granulocytes % 0.4 0.0 - 2.0 % Absolute Neutrophils 8.75 (H) 1.80 - 7.70 K/uL Absolute Lymphocytes 0.24 (L) 1.00 - 4.80 K/ul Absolute Monocytes 0.44 0.00 - 1.10 K/uL Absolute Eosinophils 0.06 0.00 - 0.70 K/uL Absolute Basophils 0.03 0.00 - 0.20 K/uL Absolute Immature Granulocytes 0.04 0.00 - 0.20 K/uL URINALYSIS, REFLEX TO MICROSCOPIC Result Value Ref Range Color, Urine Brown (A) Light Yellow, Yellow, Dark Yellow Clarity, Urine Slightly Cloudy (A) Clear Glucose, Urine Negative Negative mg/dL Bilirubin, Urine Negative Negative Ketone, Urine Negative Negative mg/dL Specific Spencer, Urine 1.008 1.003 - 1.030 Blood, Urine Large (A) Negative pH, Urine 5.5 5.0 - 7.5 Units Protein, Urine 100 (A) Negative mg/dL Urobilinogen, Urine 0.2 0.2, 1.0 mg/dL Nitrite, Urine Negative Negative Esterase, Urine Large (A) Negative PROCALCITONIN Result Value Ref Range Procalcitonin 0.75 (H) <0.10 ng/mL MICROSCOPIC EXAM, URINE Result Value Ref Range RBC, Urine 50+ (A) 0 - 2 /HPF WBC, Urine 50+ (A) 0 - 2 /HPF Bacteria, Urine >200 (A) 0 - 25 /HPF Results Pending at Discharge: Lab Results Pending at Discharge: CBC WITH WBC DIFFERENTIAL Routine BASIC METABOLIC PANEL Routine STREPTOCOCCUS PNEUMONIAE ANTIGENS, URINE Add-on MEDICATION UPDATES AT DISCHARGE START taking these medications INSTRUCTIONS Apixaban 5 MG Tablet Commonly known as: Eliquis Take 1 Tablet by mouth in the morning and 1 Tablet before bedtime. Bumetanide 1 MG Tablet Commonly known as: Bumex Start taking on: May 03, 2023 Take 1 Tablet by mouth in the morning. Do not start before May 03, 2023. Cefdinir 300 MG Capsule Commonly known as: Omnicef Take 1 Capsule by mouth in the morning for 3 days. doxycycline 100 MG Tablet Take 1 Tablet by mouth in the morning and 1 Tablet before bedtime. Do all this for 3 days. CHANGE how you take these medications INSTRUCTIONS atorvaSTATin 80 MG Tablet Commonly known as: Lipitor What changed: how to take this when to take this Take 1 Tablet by mouth in the morning. Calcium + D 600-5 MG-MCG Tabs Generic drug: Calcium Carbonate-Vitamin D What changed: medication strength Take 1 Tablet by mouth in the morning. citalopram 40 MG Tablet Commonly known as: CeleXA What changed: how to take this when to take this Take 1 Tablet by mouth in the morning. Finasteride 5 MG Tablet Commonly known as: Proscar What changed: how to take this when to take this Take 1 Tablet by mouth in the morning. CONTINUE taking these medications INSTRUCTIONS Plavix 75 MG Tablet Generic drug: clopidogrel 1 tablet daily Vitron-C 65-125 MG Tablet Generic drug: Iron-Vitamin C 65-125 mg per tab Take 2 Tablets by mouth in the morning. STOP taking these medications Aspirin 81 MG Tablet dilTIAZem CD 180 MG Cp24 extended release capsule Commonly known as: dilTIAZem CD Ergocalciferol (Vitamin D2) 1.25 MG (99176 UT) Capsule Commonly known as: Drisdol Neurontin 300 MG Capsule Generic drug: Gabapentin ondansetron 4 MG Tablet Commonly known as: Zofran oxyCODONE-Acetaminophen 7.5-325 MG per tablet pantoprazole 40 MG Tbec Commonly known as: Protonix sodium bicarbonate 650 MG Tablet traMADol 50 MG Tablet Commonly known as: Ultram SCHEDULED FOLLOW-UP: Future Appointments Appt Date/Time Provider Department 05/09/2023 11:00 AM Chair3 Hem Onc Gl Hematology/Oncology Treatment, [facility] 05/10/2023 1:00 PM SARA Molina Cardiology [facility] 07/10/2023 12:45 PM SARA Molina Outpatient Follow Up Basic Metabolic Panel Other Information Indwelling Devices: LINES ALL Duration Peripheral Line Anterior;Left;Upper Arm 22 Gauge 2 days Hemodialysis Arteriovenous Fistula Right Wrist 1 day Vital Signs (last recorded): Most Recent Systolic BP: 118 mmHg (05/02/23737) Most Recent Diastolic BP: 53 mmHg (05/02/23737) Pulse: 73 (05/02/23737) Resp: 18 (05/02/23737) Most Recent Temperature: 36.61 C (05/02/23737) Weight: 82 kg (180 lb 12.4 oz) (05/02/23 0542) SpO2: 96 % (05/02/23737) O2 flow rate: 2 L/MIN (05/01/23743) Allergies: Patient has no known allergies. Activity: as tolerated Diet: cardiac diet and diabetic diet Code status (this admission): Full Code Discussion of adv directives occurred with - adult: Patient Condition on Discharge: stable Isolation status: None Cognition: normal HOSPITAL CONSULTS ORDERED: CARDIOLOGY CONSULT IP NEPHROLOGY CONSULT IP CRITICAL CARE MEDICINE CONSULT IP THORACIC MEDICINE / PULMONOLOGY CONSULT IP REFERRING PHYSICIAN: Ref: SELF[[id number]] NO STREET ADDRESS AVAILABLE None (office) None (fax) PRIMARY CARE PROVIDER: PCP: Vinod Pang Jr, DO [address] [facility] / [facility] [address] (office) [phone] (fax) Note: To contact a physician responsible for this patients hospital care, please call [email or web address] [phone]. I spent a total of 45 minutes coordinating, documenting, and providing care for this patient excluding time spent in the performance of separately billed services. documented in this encounter Discharge Instructions * Discharge Instr - AVS* Ryan Gloria MD - 05/02/2023 1:07 PM EDT Discharge Date: 05/02/23 The information below provides you with the instructions and the list of medications you need to betaking following discharge from the hospital. If you have any questions, please ask before leaving. If you have questions after leaving, you can reach us at the numbers below. YOUR HOSPITAL PROVIDERS: Discharging Provider: Ryan Gloria MD Provider Department: Hospital Medicine To reach this Provider Sunday through Sunday (8:00 AM to 4:30 PM) for any questions or test results: Call [phone] For after-hours concerns: Call [phone] and have your provider paged, or the provider director content marketing for the Department of Hospital Medicine paged. Please note, the discharging provider will not be able to provide you with any medications refills.Please discuss these with your primary care provider. Worsening Symptoms: If you have new symptoms, or your symptoms get worse, please contact your Discharge Provider or Primary Care Provider (PCP). If these providers are not available, you can go to your local [facility] or [facility] Care Clinic during their business hours. In an EMERGENCY situation: Call [phone] or go to the nearest emergency room. A BRIEF SUMMARY OF YOUR HOSPITAL STAY: You came to the hospital with: complaint of shortness of breath Your main diagnosis at discharge was: Sepsis due to pneumonia Acute on chronic diastolic HF Paroxysmal atrial fibrillation, bradycardia Acute respiratory failure with hypoxia -resolved KATHY on CKD 4 Operations & Procedures performed: none Complications: none applicable Inpatient test results that are pending at discharge: none Advance Directive Documented: Advance Directive Does the Patient have an Advance Directive? Yes YOUR FOLLOW UP APPOINTMENTS: Primary Care Provider Information: PCP: Vinod Pang Jr, DO [address] [place] [address] / [facility] [address] (office) [phone] (fax) An appointment was requested with your PCP (Vinod Pang Jr, DO) within 7 days. Follow up iron infusion next week (Please take this form to this visit with your primary care physician.) You need the following studies in the future: BMP: date - in 1 week and CBC: date - in 1 week INSTRUCTIONS: Diet: Carbohydrate-controlled diet, Heart healthy diet Activity: As tolerated HEART FAILURE DISCHARGE INSTRUCTIONS Diagnosis: Congestive heart failure due to diastolic HF Fluid Restrictions: 2 L per day Weight Monitoring: Weigh yourself every morning before you eat, using the same scale, and write it in your weight diary. Pneumonia vaccine: defer to PCP Influenza vaccine: defer to PCP Last EF: 50-54% Follow Up: See your primary care provider regularly and keep all scheduled appointments. CALL YOUR DOCTOR IF YOU: ? Have a weight gain of 5 pounds ? Notice your feet, legs, or hands are swollen ? Notice a fast heart beat or palpitations ? Have increased cough especially at night ? Notice fullness in abdomen ? Have a loss of appetite ? Become easily dizzy or lightheaded ? Feel more short of breath than usual ? Have dry mouth (sign of dehydration) ? Have muscle cramps (sign of dehydration) Additional Instructions: - Call your primary care physician or seek medical attention if recurrent worsening shortness of breath. Discontinue Cardizem due to bradycardia Start Eliquis 5 mg twice a day for stroke prevention in view of paroxysmal atrial fibrillation Continue Bumex 1 mg daily for diuresis Increase atorvastatin to 80 mg daily Continue Cefdinir 300 mg twice a day and doxycycline 100 mg twice a day for 3 more days to cover pneumonia documented in this encounter Progress Notes * Daron Mayorga MD - 05/02/2023 12:31 PM EDT PROGRESS NOTE - Nephrology [facility] [address] Name: Manuel De La Cruz Location: [place] [id number]/W Date: 05/02/2023 SUBJECTIVE: Seen for CKD and CHF. He is diuresing well. He feels better today. No shortness of breath. Patient is off oxygen. Review of systems: All systems were reviewed and negative except as noted in above CURRENT HOSPITAL MEDICATIONS: Current Facility-Administered Medications Medication Dose Route Frequency Provider Bumetanide (Bumex) tab 1 mg 1 mg Oral Daily(AM) Daron Mayorga MD doxycycline tab 100 mg 100 mg Oral Q12H Ede Woodard MD piperacillin-tazobactam in D5W (Zosyn) (HALF hour infusion) ivpb 4.5 g 4.5 g IV Piggyback Q12H NOW Ede Woodard MD Acetaminophen (Tylenol) supp 650 mg 650 mg Rectal Q6H PRN Maurice Andrews MD Acetaminophen (Tylenol) tab 650 mg 650 mg Oral Q6H PRN Maurice Andrews MD Apixaban (Eliquis) tab 5 mg 5 mg Oral BID(AM/PM) Maurice Andrews MD atorvaSTATin (Lipitor) tab 80 mg 80 mg Oral Q 1700 Maurice Andrews MD calcium CARBonate (Tums E-X) tab CHEW 750 mg 750 mg Oral BID PRN Maurice Andrews MD Calcium Carbonate 500 mg + Vitamin D 5 mcg (200 units) per tab 1 Tablet Oral Daily Noon Yuli Andrews MD citalopram (CeleXA) tab 40 mg 40 mg Oral Daily(AM) Maurice Andrews MD clopidogrel (pLAVix) tab 75 mg 75 mg Oral Daily(AM) Maurice Andrews MD Docusate Sodium (Colace) cap 100 mg 100 mg Oral Daily PRN Maurice Andrews MD Finasteride (Proscar) tab 5 mg 5 mg Oral Daily(AM) Maurice Andrews MD guaiFENesin-dm (Robitussin DM) oral syrup 10 mL 10 mL Oral Q4H PRN Maurice Andrews MD house antacid (Mi-Acid II) oral susp 15 mL 15 mL Oral Q4H PRN Maurice Andrews MD melatonin tab 3 mg 3 mg Oral HS PRN Maurice Andrews MD Menthol (Lane) cough drop 1 Lozenge 1 Lozenge Oral Q2H PRN Maurice Andrews MD ondansetron (Zofran) inj 4 mg 4 mg IV Push Q6H PRN Maurice Andrews MD oxyCODONE (Oxy IR) tab 5 mg 5 mg Oral Q4H PRN Maurice Andrews MD oxygen GAS Inhalation Oxygen Thalia Silvestre MD Polyethylene Glycol 3350 (Miralax) oral powder 17 g 1 Packet Oral Daily PRN Maurice Andrews MD senna (Senokot) 1 Tablet 1 Tablet Oral Daily PRN Maurice Andrews MD sodium chloride 0.9 % flush peripheral ishmael 3 mL 3 mL IV Push Q Shift Maurice Andrews MD sodium chloride 0.9 % flush/inj 3 mL 3 mL IV Push PRN Maurice Andrews MD OBJECTIVE: Most Recent Vital Signs: Intake/Output Summary (Last 24 hours) at 05/02/2023 1231 Last data filed at 05/02/2023 1041 Gross per 24 hour Intake 816.64 ml Output 3675 ml Net -2858.36 ml Vital Signs last 24 Hours: Systolic BP: Most Recent Systolic BP Av.3 mmHg Min: 118 mmHg Max: 152 mmHg Temperature: Most Recent Temperature Av.5 C Min: 36 C Max: 36.78 C Pulse: Pulse Av Min: 50 Max: 109 Respirations: Resp Av.3 Min: 16 Max: 18 SpO2: SpO2 Av.7 % Min: 94 % Max: 100 % PHYSICAL EXAM: GENERAL: Alert, in no acute distress. EYES: PERRL, conjunctivae anicteric. ENT: Mucous membranes moist, oropharynx clear. NECK: Supple, no JVD. LYMPH: No cervical or supraclavicular lymphadenopathy. LUNGS: Clear to auscultation bilaterally, no respiratory distress. CARDIAC: Regular rate and rhythm, normal S1/S2, no murmurs, rubs, or gallops. ABDOMEN: Soft, non-tender, non-distended, bowel sounds present. EXT/MSK: No clubbing, cyanosis, or edema. SKIN: No rash, no jaundice. NEURO: No tremor, no asterixis. LABS: Lab Results Component Value Date/Time BUN - [facility] 65 (H) 05/02/2023 05:06 AM BUN - [facility] 65 (H) 05/01/2023 05:51 PM BUN - [facility] 64 (H) 05/01/2023 05:29 AM BUN - [facility] 62 (H) 04/30/2023 05:33 PM BUN - [facility] 55 (H) 04/30/2023 07:02 AM BUN - [facility] 29 (H) 04/12/2019 06:29 AM BUN - [facility] 31 (H) 04/11/2019 06:06 AM BUN - [facility] 30 (H) 04/10/2019 07:05 PM BUN - [facility] 30 (H) 04/10/2019 03:07 PM BUN - [facility] 30 (H) 05/05/2009 10:43 AM BUN-OUTSIDE LAB 45 (H) 04/04/2023 06:46 AM BUN-OUTSIDE LAB 43 (H) 03/19/2023 01:39 PM BUN-OUTSIDE LAB 56 (H) 02/28/2023 01:08 PM BUN-OUTSIDE LAB 59 (H) 02/13/2023 10:32 AM BUN-OUTSIDE LAB 42 (H) 02/05/2023 11:57 AM Lab Results Component Value Date/Time CREATININE - [facility] 3.6 (H) 05/02/2023 05:06 AM CREATININE - [facility] 3.5 (H) 05/01/2023 05:51 PM CREATININE - [facility] 3.6 (H) 05/01/2023 05:29 AM CREATININE - [facility] 3.5 (H) 04/30/2023 05:33 PM CREATININE - [facility] 3.4 (H) 04/30/2023 07:02 AM CREATININE - [facility] 2.3 (H) 04/12/2019 06:29 AM CREATININE - [facility] 2.4 (H) 04/11/2019 06:06 AM CREATININE - [facility] 2.3 (H) 04/10/2019 07:05 PM CREATININE - [facility] 2.4 (H) 04/10/2019 03:07 PM CREATININE - [facility] 2.2 (H) 01/29/2017 07:41 AM CREATININE - [facility] 1.4 05/05/2009 10:43 AM CREATININE CLEARANCE - [facility] 39 (L) 01/29/2017 07:41 AM CREATININE, 24 HOUR URINE - [facility] 1.542 01/29/2017 07:41 AM CREATININE, RANDOM URINE - [facility] 59 01/29/2017 07:41 AM CREATININE, RANDOM URINE - [facility] 89 05/11/2009 01:10 PM CREATININE-OUTSIDE LAB 2.7 (H) 04/04/2023 06:46 AM CREATININE-OUTSIDE LAB 3.1 (HH) 03/19/2023 01:39 PM CREATININE-OUTSIDE LAB 2.9 (H) 02/28/2023 01:08 PM CREATININE-OUTSIDE LAB 3.0 (H) 02/13/2023 10:32 AM CREATININE-OUTSIDE LAB 3.0 (H) 02/05/2023 11:57 AM No components found for: E GLOM FILT RATE Lab Results Component Value Date/Time POTASSIUM - [facility] 4.1 05/02/2023 05:06 AM POTASSIUM - [facility] 4.1 05/01/2023 05:51 PM POTASSIUM - [facility] 4.2 05/01/2023 05:29 AM POTASSIUM - [facility] 4.2 04/12/2019 06:29 AM POTASSIUM - [facility] 4.2 04/11/2019 06:06 AM POTASSIUM - [facility] 4.4 04/10/2019 07:05 PM POTASSIUM-OUTSIDE LAB 4.4 04/04/2023 06:46 AM POTASSIUM-OUTSIDE LAB 4.0 03/19/2023 01:39 PM POTASSIUM-OUTSIDE LAB 4.4 02/28/2023 01:08 PM Lab Results Component Value Date/Time HGB - [facility] 10.7 (L) 05/02/2023 05:06 AM HGB - [facility] 8.9 (L) 05/01/2023 05:29 AM HGB - [facility] 9.2 (L) 04/30/2023 07:02 AM HGB - [facility] 9.8 (L) 04/29/2023 11:56 AM HGB - [facility] 10.4 (L) 09/01/2020 04:53 PM HGB - [facility] 8.4 (L) 04/14/2019 01:39 PM HGB - [facility] 8.2 (L) 04/12/2019 06:29 AM HGB - [facility] 8.2 (L) 04/11/2019 06:20 PM HGB - [facility] 7.8 (L) 04/11/2019 06:06 AM HGB - OUTSIDE LAB 10.0 (L) 04/16/2023 09:52 AM HGB - OUT[facility]IDE LAB 9.4 (L) 04/04/2023 06:46 AM HGB - OUTSIDE LAB 9.0 (L) 03/19/2023 01:39 PM HGB - OUTSIDE LAB 8.6 (L) 02/28/2023 01:08 PM HGB - OUTSIDE LAB 9.9 (L) 02/13/2023 10:32 AM MICROALBUMIN - OUTSIDE LAB Date/Time Value Ref Range Status 04/11/2023 09:59 AM 7.8 (H) 0.0 - 1.8 MG/DL Final Comment: Document delivery by [place] on behalf of [facility] *[employer] USES MICROALBUMIN/CREATINE RATIO : *<30 ug/mg CREATININE IS CLASSIFIED NORMAL *30-300 ug/mg CREATININE IS CLASSIFIED CLINICAL MICROALBUMINURIA *>300 ug/mg CREATININE IS CLASSIFIED CLINICAL ALBUMINURIA CLASSIFICATION OF A PATIENT SHOULD BE BASED ON TWO OF THREE ABNORMAL RESULTS COLLECTED WITHIN A 3 TO 6 MONTH TIME FRAME* 02/08/2022 10:42 AM 15.3 (H) 0.0 - 1.8 MG/DL Final Comment: Document delivery by [place] on behalf of [facility] *[employer] USES MICROALBUMIN/CREATINE RATIO : *<30 ug/mg CREATININE IS CLASSIFIED NORMAL *30-300 ug/mg CREATININE IS CLASSIFIED CLINICAL MICROALBUMINURIA *>300 ug/mg CREATININE IS CLASSIFIED CLINICAL ALBUMINURIA CLASSIFICATION OF A PATIENT SHOULD BE BASED ON TWO OF THREE ABNORMAL RESULTS COLLECTED WITHIN A 3 TO 6 MONTH TIME FRAME* MICROALBUMIN RATIO-OUTSIDE LAB Date/Time Value Ref Range Status 04/11/2023 09:59 AM 105 (H) 0 - 29 ug/mg Final Comment: Document delivery by [place] on behalf of [facility] 02/08/2022 10:42 AM 255 (H) 0 - 29 ug/mg Final Comment: Document delivery by [place] on behalf of [facility] No components found for: PROTCREATRAT Lab Results Component Value Date/Time PTH - [facility] 55 05/05/2009 10:43 AM Lab Results Component Value Date/Time PHOSPHORUS - [facility] 3.4 05/05/2009 10:43 AM PHOSPHORUS-OUTSIDE LAB 3.3 02/28/2023 01:08 PM IMPRESSION: This 78-year-old male with history of CKD stage [place] [facility] [place],CAD,MAEGAN,chronic resp failureon [id number] at baseline,right forearm AV fistula placed about 3 years ago, paroxysmal atrial fibrillation on Eliquis, COPD, interstitial lung disease,hypertension, hyperlipidemia, peripheral vascular diseaseand anemia on venoferwho was admitted with shortness of breath found have CHF exacerbation and possible pneumonia. Plan: 1. Acute kidney injury on CKD: Etiology likely ischemic ATN in setting of pneumonia. Creatinineis 3.6 today. Unclear baseline but likely in the 2s. Electrolytes are stable. Volume status has improved with diuresis. -from renal standpoint patient can be discharged. He will need a BMP early next week and follow-up with his outpatient watch train assembler from [facility] 2. Acute CHF exacerbation: This is the likely due to recent decrease in his diuretics. -continue bumex 1mg daily. Can be discharged today on that dose -daily standing weight at home and notify his outpatient PCP if weight gain over 4 lb in 2 days 3. Anemia: Due to renal disease. Patient was receiving iron in the outpatient setting. No need to give IV iron while patient is the being treated for possible infection. The iron can be givenafter discharge. Appreciate consult; will follow with you. This note was generated with the help of voice recognition software. Please excuse for errors. * Tre Love RP - 05/02/2023 10:19 AM EDT PHARMACY DISCHARGE MEDICATION RECONCILIATION REVIEW [address] [address] Name: Manuel De La Cruz Location: [address] Date: 05/02/2023 Time: 10:19 AM This discharge medication reconciliation was reviewed by a pharmacist and no corrections or interventions were required. * Tamica Jean-Baptiste RN - 05/02/2023 12:40 AM EDT Nursing Critical Care Response Note [address] [address] Name: Manuel De La Cruz Date: 05/02/2023 Time: 12:40 AM Event Location: [facility], Unit Area: 4B In the role of the Critical Response Nurse I was involved in the care of this patient. Method of notification to the critical care response nurse: Rounding on this unit Reason for notification or follow up: Chart Review Observations/Interventions/Assessment: Discussed pt. w/ charge master coordinator and primary RN. Pt. had previously been in respiratory distress. Got significantly better throughout last two days. Today pt. passed ambulatory pulse ox on RA. Outcome/Plan Will discontinue follow ups at this time. Please contact us if any concerns arise. * Daron Mayorga MD - 05/01/2023 3:57 PM EDT PROGRESS NOTE - Nephrology [address] [address] Name: Manuel De La Cruz Location: [facility]/W Date: 05/01/2023 SUBJECTIVE: Seen for KATHY and CHF. No sob. Cr up to 3.6 Review of systems: All systems were reviewed and negative except as noted in above CURRENT HOSPITAL MEDICATIONS: Current Facility-Administered Medications Medication Dose Route Frequency Provider [START ON 05/02/2023] Bumetanide (Bumex) tab 1 mg 1 mg Oral Daily(AM) Daron Mayorga MD doxycycline tab 100 mg 100 mg Oral Q12H Ede Woodard MD piperacillin-tazobactam in D5W (Zosyn) (HALF hour infusion) ivpb 4.5 g 4.5 g IV Piggyback Q12H NOW Ede Woodard MD Acetaminophen (Tylenol) supp 650 mg 650 mg Rectal Q6H PRN Maurice Andrews MD Acetaminophen (Tylenol) tab 650 mg 650 mg Oral Q6H PRN Maurice Andrews MD Apixaban (Eliquis) tab 5 mg 5 mg Oral BID(AM/PM) Maurice Andrews MD atorvaSTATin (Lipitor) tab 80 mg 80 mg Oral Q 1700 Maurice Andrews MD calcium CARBonate (Tums E-X) tab CHEW 750 mg 750 mg Oral BID PRN Maurice Andrews MD Calcium Carbonate 500 mg + Vitamin D 5 mcg (200 units) per tab 1 Tablet Oral Daily Noon Yuli Andrews MD citalopram (CeleXA) tab 40 mg 40 mg Oral Daily(AM) Maurice Andrews MD clopidogrel (pLAVix) tab 75 mg 75 mg Oral Daily(AM) Maurice Andrews MD Docusate Sodium (Colace) cap 100 mg 100 mg Oral Daily PRN Maurice Andrews MD Finasteride (Proscar) tab 5 mg 5 mg Oral Daily(AM) Maurice Andrews MD guaiFENesin-dm (Robitussin DM) oral syrup 10 mL 10 mL Oral Q4H PRN Maurice Andrews MD house antacid (Mi-Acid II) oral susp 15 mL 15 mL Oral Q4H PRN Maurice Andrews MD melatonin tab 3 mg 3 mg Oral HS PRN Maurice Andrews MD Menthol (Lane) cough drop 1 Lozenge 1 Lozenge Oral Q2H PRN Maurice Andrews MD ondansetron (Zofran) inj 4 mg 4 mg IV Push Q6H PRN Maurice Andrews MD oxyCODONE (Oxy IR) tab 5 mg 5 mg Oral Q4H PRN Maurice Andrews MD oxygen GAS Inhalation Oxygen Thalia Silvestre MD Polyethylene Glycol 3350 (Miralax) oral powder 17 g 1 Packet Oral Daily PRN Maurice Andrews MD senna (Senokot) 1 Tablet 1 Tablet Oral Daily PRN Maurice Andrews MD sodium chloride 0.9 % flush peripheral ishmael 3 mL 3 mL IV Push Q Shift Maurice Andrews MD sodium chloride 0.9 % flush/inj 3 mL 3 mL IV Push PRN Maurice Andrews MD OBJECTIVE: Most Recent Vital Signs: Intake/Output Summary (Last 24 hours) at 05/01/2023 1557 Last data filed at 05/01/2023 1245 Gross per 24 hour Intake 659.7 ml Output 2700 ml Net -2040.3 ml Vital Signs last 24 Hours: Systolic BP: Most Recent Systolic BP Av.5 mmHg Min: 111 mmHg Max: 152 mmHg Temperature: Most Recent Temperature Av.2 C Min: 35.83 C Max: 36.78 C Pulse: Pulse Av.2 Min: 60 Max: 68 Respirations: Resp Av Min: 16 Max: 16 SpO2: SpO2 Av % Min: 96 % Max: 100 % PHYSICAL EXAM: GENERAL: Alert, in no acute distress. EYES: PERRL, conjunctivae anicteric. ENT: Mucous membranes moist, oropharynx clear. NECK: Supple, no JVD. LYMPH: No cervical or supraclavicular lymphadenopathy. LUNGS: Clear to auscultation bilaterally, no respiratory distress. CARDIAC: Regular rate and rhythm, normal S1/S2, no murmurs, rubs, or gallops. ABDOMEN: Soft, non-tender, non-distended, bowel sounds present. EXT/MSK: No clubbing, cyanosis, or edema. SKIN: No rash, no jaundice. NEURO: No tremor, no asterixis. LABS: Lab Results Component Value Date/Time BUN - [facility] 64 (H) 05/01/2023 05:29 AM BUN - [facility] 62 (H) 04/30/2023 05:33 PM BUN - [facility] 55 (H) 04/30/2023 07:02 AM BUN - [facility] 46 (H) 04/29/2023 05:27 PM BUN - [facility] 46 (H) 04/29/2023 11:56 AM BUN - [facility] 29 (H) 04/12/2019 06:29 AM BUN - [facility] 31 (H) 04/11/2019 06:06 AM BUN - [facility] 30 (H) 04/10/2019 07:05 PM BUN - [facility] 30 (H) 04/10/2019 03:07 PM BUN - [facility] 30 (H) 05/05/2009 10:43 AM BUN-OUTSIDE LAB 45 (H) 04/04/2023 06:46 AM BUN-OUTSIDE LAB 43 (H) 03/19/2023 01:39 PM BUN-OUTSIDE LAB 56 (H) 02/28/2023 01:08 PM BUN-OUTSIDE LAB 59 (H) 02/13/2023 10:32 AM BUN-OUTSIDE LAB 42 (H) 02/05/2023 11:57 AM Lab Results Component Value Date/Time CREATININE - [facility] 3.6 (H) 05/01/2023 05:29 AM CREATININE - [facility] 3.5 (H) 04/30/2023 05:33 PM CREATININE - [facility] 3.4 (H) 04/30/2023 07:02 AM CREATININE - [facility] 3.1 (H) 04/29/2023 05:27 PM CREATININE - [facility] 2.9 (H) 04/29/2023 11:56 AM CREATININE - [facility] 2.3 (H) 04/12/2019 06:29 AM CREATININE - [facility] 2.4 (H) 04/11/2019 06:06 AM CREATININE - [facility] 2.3 (H) 04/10/2019 07:05 PM CREATININE - [facility] 2.4 (H) 04/10/2019 03:07 PM CREATININE - [facility] 2.2 (H) 01/29/2017 07:41 AM CREATININE - [facility] 1.4 05/05/2009 10:43 AM CREATININE CLEARANCE - [facility] 39 (L) 01/29/2017 07:41 AM CREATININE, 24 HOUR URINE - [facility] 1.542 01/29/2017 07:41 AM CREATININE, RANDOM URINE - [facility] 59 01/29/2017 07:41 AM CREATININE, RANDOM URINE - [facility] 89 05/11/2009 01:10 PM CREATININE-OUTSIDE LAB 2.7 (H) 04/04/2023 06:46 AM CREATININE-OUTSIDE LAB 3.1 (HH) 03/19/2023 01:39 PM CREATININE-OUTSIDE LAB 2.9 (H) 02/28/2023 01:08 PM CREATININE-OUTSIDE LAB 3.0 (H) 02/13/2023 10:32 AM CREATININE-OUTSIDE LAB 3.0 (H) 02/05/2023 11:57 AM No components found for: E GLOM FILT RATE Lab Results Component Value Date/Time POTASSIUM - [facility] 4.2 05/01/2023 05:29 AM POTASSIUM - [facility] 4.3 04/30/2023 05:33 PM POTASSIUM - [facility] 4.6 04/30/2023 07:02 AM POTASSIUM - [facility] 4.2 04/12/2019 06:29 AM POTASSIUM - [facility] 4.2 04/11/2019 06:06 AM POTASSIUM - [facility] 4.4 04/10/2019 07:05 PM POTASSIUM-OUTSIDE LAB 4.4 04/04/2023 06:46 AM POTASSIUM-OUTSIDE LAB 4.0 03/19/2023 01:39 PM POTASSIUM-OUTSIDE LAB 4.4 02/28/2023 01:08 PM Lab Results Component Value Date/Time HGB - [facility] 8.9 (L) 05/01/2023 05:29 AM HGB - [facility] 9.2 (L) 04/30/2023 07:02 AM HGB - [facility] 9.8 (L) 04/29/2023 11:56 AM HGB - [facility] 10.4 (L) 09/01/2020 04:53 PM HGB - [facility] 8.4 (L) 04/14/2019 01:39 PM HGB - [facility] 8.2 (L) 04/12/2019 06:29 AM HGB - [facility] 8.2 (L) 04/11/2019 06:20 PM HGB - [facility] 7.8 (L) 04/11/2019 06:06 AM HGB - OUTSIDE LAB 10.0 (L) 04/16/2023 09:52 AM HGB - OUTSIDE LAB 9.4 (L) 04/04/2023 06:46 AM HGB - OUTSIDE LAB 9.0 (L) 03/19/2023 01:39 PM HGB - OUTSIDE LAB 8.6 (L) 02/28/2023 01:08 PM HGB - OUTSIDE LAB 9.9 (L) 02/13/2023 10:32 AM MICROALBUMIN - OUTSIDE LAB Date/Time Value Ref Range Status 04/11/2023 09:59 AM 7.8 (H) 0.0 - 1.8 MG/DL Final Comment: Document delivery by [place] on behalf of [facility] *[employer] USES MICROALBUMIN/CREATINE RATIO : *<30 ug/mg CREATININE IS CLASSIFIED NORMAL *30-300 ug/mg CREATININE IS CLASSIFIED CLINICAL MICROALBUMINURIA *>300 ug/mg CREATININE IS CLASSIFIED CLINICAL ALBUMINURIA CLASSIFICATION OF A PATIENT SHOULD BE BASED ON TWO OF THREE ABNORMAL RESULTS COLLECTED WITHIN A 3 TO 6 MONTH TIME FRAME* 02/08/2022 10:42 AM 15.3 (H) 0.0 - 1.8 MG/DL Final Comment: Document delivery by [place] on behalf of [facility] *[employer] USES MICROALBUMIN/CREATINE RATIO : *<30 ug/mg CREATININE IS CLASSIFIED NORMAL *30-300 ug/mg CREATININE IS CLASSIFIED CLINICAL MICROALBUMINURIA *>300 ug/mg CREATININE IS CLASSIFIED CLINICAL ALBUMINURIA CLASSIFICATION OF A PATIENT SHOULD BE BASED ON TWO OF THREE ABNORMAL RESULTS COLLECTED WITHIN A 3 TO 6 MONTH TIME FRAME* MICROALBUMIN RATIO-OUTSIDE LAB Date/Time Value Ref Range Status 04/11/2023 09:59 AM 105 (H) 0 - 29 ug/mg Final Comment: Document delivery by [place] on behalf of [facility] 02/08/2022 10:42 AM 255 (H) 0 - 29 ug/mg Final Comment: Document delivery by [place] on behalf of [facility] No components found for: PROTCREATRAT Lab Results Component Value Date/Time PTH - [facility] 55 05/05/2009 10:43 AM Lab Results Component Value Date/Time PHOSPHORUS - [facility] 3.4 05/05/2009 10:43 AM PHOSPHORUS-OUTSIDE LAB 3.3 02/28/2023 01:08 PM IMPRESSION: This 78-year-old male with history of CKD stage IV followed by [facility], CAD,MAEGAN,chronic resp failure on oxygen 4L at baseline, right forearm AV fistula placed about 3 years ago, paroxysmal atrial fibrillation on Eliquis, COPD, interstitial lung disease,hypertension, hyperlipidemia, peripheral vascular disease and anemia on venoferwho was admitted with shortness of breath found have CHF exacerbation and possible pneumonia. Plan: 1. Acute kidney injury on CKD: Etiology likely ischemic ATN in setting of pneumonia. Creatinine is 3.6 today. Unclear baseline but likely in the 2s. Electrolytes are stable. Patient has volume overload. No indication for dialysis at the moment. -daily BMP -avoid vancomycin levels above 25 which can be nephrotoxic -input output 2. Acute CHF exacerbation: This is the likely due to recent decrease in his diuretics. -Stop iv Lasix -Start bumex 1mg daily in AM. Can be discharged on that dose -daily standing weight if able 3. Anemia: Due to renal disease. Patient was receiving iron in the outpatient setting. No need to give IV iron while patient is the being treated for possible infection. The iron can be given after discharge. Appreciate consult; will follow with you. This note was generated with the help of voice recognition software. Please excuse for errors. * Nadine Char Álvarez, Medical Student - 05/01/2023 11:01 AM EDT Images from the original note were not included. [facility] 4B-[id number]/W Unless the attending has added an attestation supporting use of this note to document a billable service, the signature of the Licensed Professional on this note only acknowledges the presence of thestudent's note within the patient record and the Licensed Professional's note should be referred tofor clinical information and recommendations. INTERVAL HISTORY: Pt's minimum HR recorded overnight was 52. He has been afebrile and has mild leukocytosis on morning labs. He maintained high spO2 on NC last night with highest O2 flow rate of 4L, lowest 2L. This isless than what he uses at home (4L at rest and 6L with exertion.) We would like to decrease his supplemental O2 going forward. Pt feels well this morning and asks to go home. He is aware of Nephro's recommendation to go back on a daily water pill and agreeable to this. His leg swelling and work of breathing have both significantly improved. Creatinine is slowly increasing on labs, which may be due to the IV diuresis and/or antibiotics. Per Nephro, he does not need dialysis at this time. Objective Physical Exam Most Recent Vital Signs: BP: 111 mmHg/53 mmHg (05/01/23743) Pulse: 60 (05/01/23743) Temp: 36.11 C (05/01/23743) Resp: 16 (05/01/23743) SpO2: 99 % (05/01/23743) Weight change since admission: -3.2 kg (6 lbs) Intake/Output Summary (Last 24 hours) at 05/01/2023 1318 Last data filed at 05/01/2023 1245 Gross per 24 hour Intake 709.7 ml Output 3600 ml Net -2890.3 ml Net IO Since Admission: -5,120.48 mL [05/01/23 1318] Constitutional: elderly male appearing stated age in no distress, resting comfortably in bed, able to sit up unassisted CV: heart sounds distant with RRR, no murmurs or gallops appreciated Chest: scattered crackles throughout both lungs, greatly improved from yesterday's exam Abdomen: soft, nondistended, nontender, bowel sounds heard Extremities: 1+ pitting edema in RLE, minimal pitting in LLE. Skin less shiny than yesterday. Skin: warm, dry, intact, well-healed scars on right leg as noted previously Neuro: awake, alert, conversational and fluent, mildly hard of hearing Psych: pleasant, cooperative, normal mood and affect Urethral Catheter Coude (Active) Number of days: 2 Peripheral Line Anterior;Left;Upper Arm 22 Gauge (Active) Number of days: 1 Hemodialysis Arteriovenous Fistula Right Wrist (Active) Number of days: 0 STUDIES: Labs and other studies reviewed with pertinent findings noted below: Chemistry 04/30/23 07:02 04/30/23 17:33 05/01/23 05:29 Sodium 141 141 141 Potassium 4.6 4.3 4.2 Chloride 107 106 106 CO2 22 24 25 BUN 55 (H) 62 (H) 64 (H) Creatinine 3.4 (H) 3.5 (H) 3.6 (H) Anion Gap 12 11 10 Glucose 160 (H) 153 (H) 103 Calcium 8.5 8.7 8.6 CBC 04/29/23 11:56 04/30/23 07:02 05/01/23 05:29 WBC 9.56 14.28 (H) 12.66 (H) HGB 9.8 (L) 9.2 (L) 8.9 (L) HCT 31.4 (L) 30.8 (L) 29.8 (L) MCV 90.8 92.2 90.0 PLT 241 204 231 Infectious Disease Studies: - Blood culture x2 in process, day 3 - Urine culture finalized with no growth - Legionella and S pneumoniae antigen tests in process - MRSA PCR negative CT Chest without contrast 04/30/23 IMPRESSION: Pulmonary nodules as described including a 10 mm spiculated nodule in the anterior aspect of the left upper lobe for which PET-CT is recommended to further assess based on Fleischner society guidelines. 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 * DIFFERENTIAL AND PLAN: 78yo male with PMH significant for parox a-fib on Eliquis, systolic CHF, CAD, PAD, chronic respiratory failure on 4L, CKD4 with fistula not yet doing HD, COPD, ILD, recurrent infections precluding defibrillator implantation, who was admitted with acute respiratory failure now resolved. Pt receivingempiric antibiotics for sepsis secondary to pneumonia. He subjectively feels close to his baseline as of this morning. Sepsis secondary to pneumonia - Continue empiric Zosyn - Vanco discontinued because MRSA neg - Doxycycline added to cover atypicals - Follow blood cultures (day 3) and antigen tests - Urine culture negative Acute on chronic respiratory failure with hypoxia - Resolved. Pt currently on less supplemental oxygen than at home. - Ambulatory pulse ox to determine minimum O2 need Chronic systolic heart failure (HFrEF) - IV Lasix 60 mg BID for this admission - Transition to old home dose of bumetanide (0.5 mg daily) - Echocardiogram showed normal LVEF. New left ventricular wall hypokinesis since 2019. - Sodium-restricted diet - Telemetry - Trend I/Os and daily weights Paroxysmal atrial fibrillation - On telemetry - IMPORT EXPORT COORDINATOR apixaban Severe CKD, stage 4 - Trend creatinine - No HD at this time Other - IMPORT EXPORT COORDINATOR atorvastatin, citalopram, clopidogrel, finasteride, calcium supplements continued PHARMACOLOGIC VTE PROPHYLAXIS: Apixaban CODE STATUS: Full Code EXPECTED DISCHARGE DATE: 05/02/2023 Nadine Álvarez, Medical Student Associated attestation - Ede Woodard MD - 05/01/2023 4:32 PM EDT I attest that I have reviewed the student note and that the components of the history, the physicalexam, and the assessment and plan documented were performed in my presence with the student where Iverified the documentation and performed (or re-performed) the exam and medical decision making. I spent a total of 50 minutes coordinating, documenting, and providing care for this patient excluding time spent in the performance of separately billed services. * Nadine Álvarez, Medical Student - 04/30/2023 11:09 AM EDT Images from the original note were not included. [facility] [id number] Unless the attending has added an attestation supporting use of this note to document a billable service, the signature of the Licensed Professional on this note only acknowledges the presence of thestudent's note within the patient record and the Licensed Professional's note should be referred tofor clinical information and recommendations. PATIENT DESCRIPTION: 78yo male with hx of chronic systolic HF, CAD & PAD, MAEGAN, chronic respiratory failure on 4L at home, CKD stage 4 w fistula but hasn't yet started HD, parox a-fib on Eliquis, COPD on no maintenance inhalers, ILD, HTN, HLD, anemia on Venofer, hx lymphoma, and recurrent UTIs. Pt presented for wheezing & increased SOB since Sunday and fever on day of admission. Required CP AP in ambulance (still blue on 6L NC.) Fever to 100.5 en route. In the ED he was put on BiPAP and work of breathing improved further. ED labs: creatinine 2.9 (baseline ~3 per recent outpatient records) High-sensitivity troponin 51, BNP 10,734. CXR showed b/l infiltrates. Pt received acetaminophen, DuoNeb, 60 mg Lasix, 125 mg Solu-Medrol, empiric Zosyn and vancomycin. Of note, pt has been recommended to get a defibrillator, but this has been delayed because of recurrent infections. INTERVAL HISTORY: Pt was off BiPAP for a while after coming to the floor, but became lethargic. ABG showed pH droppedto 7.255. He was put back on BiPAP. Later in the evening, the machine alarmed for apnea. Settings were changed to AVAPS and pt was made NPO for somnolence. Overnight, telemetry showed sinus bradycardia to the 30s with 1st deg AV block & PVCs. Ventilator still on AVAPS setting. This morning, pt is awake and spontaneously taking breaths again. He reports feeling like there is mucus in his mouth. He would prefer not to wear the mask, but is willing to keep it on for now. He is currently afebrile. Morning labs show new leukocytosis. Pt expresses that he would want CPR and intubation but not be on life support more than 2 weeks. Objective Physical Exam Most Recent Vital Signs: BP: 113 mmHg/66 mmHg (04/30/23 0758) Pulse: 56 (04/30/23 0916) Temp: 35.22 C (04/30/23 0758) Resp: 18 (04/30/23 0758) SpO2: 98 % (04/30/23 1028) Weight change since admission: -2.4 kg Intake/Output Summary (Last 24 hours) at 04/30/2023 1219 Last data filed at 04/30/2023 1059 Gross per 24 hour Intake 299.82 ml Output 2530 ml Net -2230.18 ml Net IO Since Admission: -2,230.18 mL [04/30/23 1219] Constitutional: elderly male appearing stated age, wearing ventilator mask, in no acute distress. CV: heart sounds distant with RRR, no murmurs or gallops appreciated Chest: diffuse crackles and rhonchi on auscultation of both lungs Abdomen: soft, nondistended, nontender, few bowel sounds Extremities: 2+ pitting edema on right, old well-healed scar on right lateral lower leg, 1+ pittingedema on left Skin: warm, dry, intact Neuro: awake, alert, conversational and fluent, mildly hard of hearing Psych: pleasant, cooperative, normal mood and range of affect Urethral Catheter Coude (Active) Number of days: 1 Peripheral Line Anterior;Left 22 Gauge (Active) Number of days: 0 STUDIES: Labs and other studies reviewed with pertinent findings noted below: Arterial Blood Gas 04/29/23 11:56 04/29/23 17:05 04/30/23 11:14 pH, Arterial 7.431 7.255 (L) 7.468 (H) pCO2, Arterial 28.3 (L) 46.4 (H) 26.0 (L) pO2, Arterial 90.6 124.0 (H) 151.0 (H) O2 Content, Arterial 12.5 (L) 13.3 (L) 12.9 (L) Base Excess, Arterial -4.6 (L) -6.5 (L) -3.8 (L) Reduced Hemoglobin, Arterial 2.3 1.8 0.3 Temperature 37.0 37.0 37.0 Oxyhemoglobin, Arterial 95.3 96.0 97.4 FiO2 35 30 30% Carboxyhemoglobin, Whole Blood 1.8 (H) 1.6 (H) 1.8 (H) Methemoglobin, Whole Blood 0.6 0.6 0.5 Cardiac Biomarkers 04/29/23 11:56 Troponin T, High Sensitivity 51 (H) BNP, NT-Pro 10,734 (H) Chemistry 04/29/23 11:56 04/29/23 17:27 04/30/23 07:02 Sodium 135 137 141 Potassium 5.2 (H) 4.9 4.6 Chloride 105 106 107 CO2 19 (L) 19 (L) 22 BUN 46 (H) 46 (H) 55 (H) Creatinine 2.9 (H) 3.1 (H) 3.4 (H) Anion Gap 11 12 12 Glucose 163 (H) 175 (H) 160 (H) Calcium 8.6 8.5 8.5 Calcium, Ionized Magnesium 1.9 Lactate: 1.4 CBC 04/29/23 11:56 04/29/23 17:05 04/30/23 07:02 WBC 9.56 14.28 (H) HGB 9.8 (L) 9.2 (L) HCT 31.4 (L) 30.8 (L) MCV 90.8 92.2 PLT 241 204 Coagulation 04/29/23 12:20 INR 1.3 (H) Prothrombin Time 16.2 (H) Infectious Disease Studies - Blood culture x2 in process, day 2 - Urine culture in process, day 2 - Respiratory viral panel and COVID negative - Legionella, S pneumoniae antigen tests in process CXR 04/29/23 FINDINGS: Tubes, catheters and devices: Left IJ [id number]. Catheter tip just above the aortic arch unchanged. Lungs: Lungs show slightly increased prominence of interstitial markings bilaterally compared to previous exam. No focal airspace consolidation. Pleural spaces: Unremarkable. No pleural effusion. No pneumothorax. Heart/Mediastinum: Cardiomediastinal silhouette is normal. Bones/joints: Unremarkable. EKG 04/29/23 11:45 - Suggestive of left ventricular hypertrophy. Sinus rhythm with PVCs. 04/29/23 16:38 - Atrial fibrillation 04/30/23 04:14 - "Marked sinus bradycardia with 1st degree AV block with PVCs" HR 43 bpm Echocardiogram 04/30/23 Interpretation Summary The left ventricular endocardium is adequately assessed using ultrasonic contrast. The qualitative LV ejection fraction is 50-54% (normal). The left ventricular cavity size is normal. The LV wall thickness is normal. There is no left ventricular mural thrombus. Distal inferolateral hypokinesis. The left atrium is mildly enlarged. Assessment and Plan IMPRESSION : Principal Problem: Acute on chronic respiratory failure with hypoxia (HCC) Active Problems: Atherosclerosis of coronary artery CKD (chronic kidney disease) PVD (peripheral vascular disease) ([facility]) HTN (hypertension) HLD (hyperlipidemia) Anemia Pneumonia Heart failure with acute decompensation, type unknown ([facility]) Cardiomyopathy ([facility]) Central venous catheter in place, permanent HFrEF (heart failure with reduced ejection fraction) ([facility]) COPD (chronic obstructive pulmonary disease) ([facility]) Interstitial lung disease ([facility]) Paroxysmal atrial fibrillation ([facility]) Type 2 diabetes mellitus ([facility]) Resolved Problems: * No resolved hospital problems. * DIFFERENTIAL AND PLAN: 78yo male with PMH significant for parox a-fib on Eliquis, systolic CHF, CAD, PAD, chronic respiratory failure on 4L, CKD4 with fistula not yet doing HD, COPD, ILD, recurrent infections precluding defibrillator implantation, who is admitted with acute respiratory failure with nocturnal apnea requiring AVAPS for ventilatory support. Pt undergoing workup for sepsis secondary to pneumonia. Sepsis fluids were deferred for concern about heart failure. Cardiology and Pulmonology consulted. Sepsis secondary to pneumonia - Follow cultures (day 2) and antigen tests - Empiric vancomycin and Zosyn Acute on chronic respiratory failure with hypoxia - Ventilator support to be adjusted as needed. Currently on AVAPS because BiPAP insufficient overnight. - Pt okay with intubation if he deteriorates Chronic systolic heart failure (HFrEF) - Diuresis with IV Lasix 60 mg BID per Cardio recs - Echocardiogram showed normal LVEF. New left ventricular wall hypokinesis noted compared to the last available report in 2019. - Pt currently NPO. When able to eat again, order sodium-restricted diet - Telemetry - Trend I/Os and daily weights Paroxysmal atrial fibrillation - On telemetry - IMPORT EXPORT COORDINATOR apixaban ordered, not given while NPO Severe CKD, stage 4 - Arrange hemodialysis in hospital Other - IMPORT EXPORT COORDINATOR atorvastatin, citalopram, clopidogrel, finasteride, calcium supplements continued (oral meds held while NPO) Current medications: Furosemide (Lasix) inj 60 mg piperacillin-tazobactam in D5W (Zosyn) (HALF hour infusion) ivpb 4.5 g Acetaminophen (Tylenol) supp 650 mg Acetaminophen (Tylenol) tab 650 mg Apixaban (Eliquis) tab 5 mg atorvaSTATin (Lipitor) tab 80 mg calcium CARBonate (Tums E-X) tab CHEW 750 mg Calcium Carbonate 500 mg + Vitamin D 5 mcg (200 units) per tab citalopram (CeleXA) tab 40 mg clopidogrel (pLAVix) tab 75 mg Docusate Sodium (Colace) cap 100 mg [START ON 05/01/2023] Drug Level Check - Vancomycin Random Finasteride (Proscar) tab 5 mg guaiFENesin-dm (Robitussin DM) oral syrup 10 mL house antacid (Mi-Acid II) oral susp 15 mL melatonin tab 3 mg Menthol (Lane) cough drop 1 Lozenge ondansetron (Zofran) inj 4 mg oxyCODONE (Oxy IR) tab 5 mg Ventilation Method: Acute Non-Invasive --- PEEP/EPAP/CPAP: 5 --- Changes Per Adult Protocol: Yes AND oxygen GAS Polyethylene Glycol 3350 (Miralax) oral powder 17 g senna (Senokot) 1 Tablet sodium chloride 0.9 % flush peripheral ishmael 3 mL sodium chloride 0.9 % flush/inj 3 mL vancomycin (Vancocin) 500 mg in NSS 100 mL ivpb vancomycin per pharmacy order PHARMACOLOGIC VTE PROPHYLAXIS: Apixaban CODE STATUS: Full Code EXPECTED DISCHARGE DATE: No information available Nadine Álvarez, Medical Student Associated attestation - Ede Woodard MD - 04/30/2023 5:26 PM EDT I attest that I have reviewed the student note and that the components of the history, the physicalexam, and the assessment and plan documented were performed in my presence with the student where Iverified the documentation and performed (or re-performed) the exam and medical decision making. I spent a total of 50 minutes coordinating, documenting, and providing care for this patient excluding time spent in the performance of separately billed services. * Annette Beard RN - 04/30/2023 10:33 AM EDT Nursing Critical Care Response Note [address] [id number] Name: Manuel De La Cruz Date: 04/30/2023 Time: 10:33 AM Event Location: [facility], Unit Area: [facility] In the role of the Critical Response Nurse I was involved in the care of this patient. Method of notification to the critical care response nurse: Follow up previous notification Rounding on this unit Reason for notification or follow up: Chart Review Observations/Interventions/Assessment: Pt alert and answering questions appropriately. Pt states SOB is improving while on the bipap machine. Edema noted to BLE. Lungs diminished hussain. Pt on vanc, zosyn, and lasix. Vitals stable at this time. Outcome/Plan Pulm to see pt today. Continue abx and lasix. Will continue to follow pt d/t acuity. Please reach out with any questions or concerns. * Diandra Gandhi RN - 04/29/2023 6:07 PM EDT Nursing Critical Care Response Note [address] [id number] Name: Manuel De La Cruz Date: 04/29/2023 Time: 6:08 PM Event Location: [facility], Unit Area: 4B In the role of the Critical Response Nurse I was involved in the care of this patient. Method of notification to the critical care response nurse: Other: RT contacted CRN to assess due to increased lethargy Reason for notification or follow up: Change in Mental Status Observations/Interventions/Assessment: answers questions appropriately and follows commands. MARGARITO. Bipap in place. Ph decreased. Poor resp effort. Labs obtained. CXR shows increased infiltrates. IV antibiotics and fluids given. Outcome/Plan Will continue to monitor by CRN documented in this encounter H&P Notes * Maurice Andrews MD - 04/29/2023 2:30 PM EDT Images from the original note were not included. [facility] 4B-4010/W PRESENTING PROBLEM: Shortness of breath HPI: 78-year-old with past medical history CAD, MAEGAN, chronic resp failure 4L at baseline, CKD, w/fistula but has not started HD, paroxysmal atrial fibrillation on Eliquis, COPD, interstitial lung disease, hypertension, hyperlipidemia, peripheral vascular disease, anemia on venofer and h/o lymphoma who presented to the ED for increasing shortness of breath. History limited Present and no family atbedside. Patient reports a fever with was at home that started around for today. He started getting more short of breath that started Sunday. He also reports wheezing as well. He reports that his right leg isat baseline edema. He is on chronic oxygen at home. Per chart review, patient reports chronic lung d ifficulties since COVID about 3 years ago. EMS was called due to severity of symptoms. Patient was placed on 6 L of oxygen but remained cyanotic. He was replaced on CPAP with rapid improvement. No other meds were given prior to arrival and patient was transported to the ED. his SpO2 was in the 90s prior to arrival. EMS reports 100 0.5 F temperature at home. Patient received acetaminophen, DuoNeb,60 mg Lasix, 125 mg Solu-Medrol, Zosyn and vanc while in the ED. sepsis dose fluids deferred due toconcerned about congestive heart failure. Patient's work of breathing improved when switched from CPAP to BiPAP. Patient has an AV fistula in his right forearm but has not started hemodialysis. Per chart review [facility] has recommended a defibrillator but this has not been placed due tofrequent infections. Patient reports that he is not currently on chemo for lymphoma. He reports that he is at baseline right lower extremity swelling due to prior leg surgeries. Prior echo in 2019 was unremarkable. I reviewed medications with pharmacy who had access to outpatient refill records. I updated the patient's medication list. He is not on maintenance inhalers nor is he on a beta-ruby. He is on Bumex and Eliquis. Outside med records report COPD, interstitial lung disease, cardiomyopathy and diabetes. ED workup significant for a BUN of 46 and creatinine of 2.9 and a potassium of 5.2. Lactate was normal. Troponin of 51. BNP 69356. ABG showed a normal pH with low CO2 of 28.3. PO2 was normal. INR 1.3. PT is 16.2. White blood cell count was normal with some mild anemia on hemoglobin hematocrit. Platelets were normal. LFTs are unremarkable. Chest x-ray showed increased bilateral interstitial infiltrates or edema. Resp pathogen negative. Blood cultures are pending. Patient referred to Hospital Medicine for acute on chronic respiratory failure with hypoxia due to pneumonia versus CHF exacerbation. Subjective Past Medical History: Diagnosis Date BPH without obstruction/lower urinary tract symptoms Coronary atherosclerosis Dyslipidemia, goal to be determined HTN, goal to be determined Peripheral vascular disease (HCC) Venous thrombosis Past Surgical History: Procedure Laterality Date DECOMPRESSION OF LEG FASCIA No family history on file. As above otherwise non-contributory Social History Tobacco Use Smoking status: Former Packs/day: 1.00 Years: 35.00 Pack years: 35.00 Types: Cigarettes Smokeless tobacco: Current Types: Snuff Substance Use Topics Alcohol use: Yes Alcohol/week: 0.0 standard drinks Comment: Infrequent Drug use: Not on file MEDICATIONS: Prior to admission medications have been reviewed. ALLERGIES: Patient has no known allergies. ROS: Review of Systems Unable to perform ROS: Acuity of condition Objective Physical Exam Most Recent Vital Signs: BP: 128 mmHg/42 mmHg (04/29/23 1528) Pulse: 73 (04/29/23 1521) Temp: 36.72 C (04/29/23 1518) Resp: 24 (04/29/23 151) SpO2: 97 % (04/29/23 151) Physical Exam Vitals and nursing note reviewed. Exam conducted with a farm equipment engineer present. Constitutional: General: He is in acute distress. Appearance: Normal appearance. He is ill-appearing. HENT: Head: Normocephalic and atraumatic. Right Ear: Tympanic membrane, ear canal and external ear normal. Left Ear: Tympanic membrane, ear canal and external ear normal. Nose: Nose normal. Mouth/Throat: Pharynx: No oropharyngeal exudate or posterior oropharyngeal erythema. Eyes: Extraocular Movements: Extraocular movements intact. Conjunctiva/sclera: Conjunctivae normal. Pupils: Pupils are equal, round, and reactive to light. Cardiovascular: Rate and Rhythm: Normal rate and regular rhythm. Pulses: Normal pulses. Heart sounds: Normal heart sounds. No murmur heard. No friction rub. No gallop. Pulmonary: Effort: Tachypnea present. Breath sounds: No stridor. No wheezing, rhonchi or rales. Comments: Diffuse rales, distant breath sounds Abdominal: General: Abdomen is flat. Bowel sounds are normal. Palpations: Abdomen is soft. Musculoskeletal: Cervical back: No rigidity. Right lower le+ Pitting Edema present. Left lower le+ Pitting Edema present. Comments: AV fistula with bruit on rt forearm Skin: General: Skin is warm and dry. Capillary Refill: Capillary refill takes less than 2 seconds. Neurological: General: No focal deficit present. Mental Status: He is alert and oriented to person, place, and time. Psychiatric: Mood and Affect: Mood normal. Behavior: Behavior normal. Peripheral Line Left;Lower 20 Gauge (Active) Number of days: 0 Peripheral Line Left Antecubital 20 Gauge (Active) Number of days: 0 STUDIES: Labs and other studies reviewed with pertinent findings noted below: XR CHEST 1 VIEW Result Date: 04/29/2023 IMPRESSION: Increased bilateral interstitial infiltrates or edema. THIS DOCUMENT HAS BEEN ELECTRONICALLY SIGNED BY VIDAL ESTES MD Results for orders placed or performed during the hospital encounter of 04/29/23 BLOOD GAS, ARTERIAL Result Value Ref Range Temperature 37.0 C pH, Arterial 7.431 7.350 - 7.450 units pCO2, Arterial 28.3 (L) 35.0 - 45.0 mmHg pO2, Arterial 90.6 75.0 - 100.0 mmHg Base Excess, Arterial -4.6 (L) -2.0 - 2.0 mmol/L Hemoglobin, Whole Blood 9.3 (L) 14.0 - 16.8 g/dL Oxyhemoglobin, Arterial 95.3 94.0 - 99.0 % total Hgb Carboxyhemoglobin, Whole Blood 1.8 (H) <=1.5 % total Hgb Methemoglobin, Whole Blood 0.6 <=1.5 % total Hgb Reduced Hemoglobin, Arterial 2.3 0.0 - 5.0 % total Hgb O2 Content, Arterial 12.5 (L) 15.0 - 24.0 %vol FiO2 35 % O2 Flow, Arterial Not Provided L/min Bicarbonate, Whole Blood 18.5 (L) 23.0 - 31.0 mmol/L RESPIRATORY PATHOGEN PANEL, PCR Result Value Ref Range Adenovirus by PCR Negative Negative Coronavirus 229E by PCR Negative Negative Coronavirus HKU1 by PCR Negative Negative Coronavirus NL63 by PCR Negative Negative Coronavirus OC43 by PCR Negative Negative Coronavirus SARS-CoV-2 by PCR Negative Negative Human Metapneumovirus by PCR Negative Negative Rhinovirus/Enterovirus by PCR Negative Negative Influenza A Virus by PCR Negative Negative Influenza B Virus by PCR Negative Negative Parainfluenza Virus 1 by PCR Negative Negative Parainfluenza Virus 2 by PCR Negative Negative Parainfluenza Virus 3 by PCR Negative Negative Parainfluenza Virus 4 by PCR Negative Negative Respiratory Syncytial Virus by PCR Negative Negative Bordetella pertussis by PCR Negative Negative Chlamydia pneumoniae by PCR Negative Negative Mycoplasma pneumoniae by PCR Negative Negative Bordetella parapertussis by PCR Negative Negative BASIC METABOLIC PANEL Result Value Ref Range BUN 46 (H) 6 - 20 mg/dL Creatinine 2.9 (H) 0.6 - 1.2 mg/dL Estimated Glomerular Filtration Rate 21 (L) >=60 mL/min Sodium 135 135 - 146 mmol/L Potassium 5.2 (H) 3.5 - 5.1 mmol/L Chloride 105 98 - 107 mmol/L CO2 19 (L) 22 - 32 mmol/L Anion Gap 11 7 - 15 mmol/L Glucose 163 (H) 70 - 120 mg/dL Calcium 8.6 8.4 - 10.2 mg/dL BNP, NT-PRO Result Value Ref Range BNP, NT-Pro 10,734 (H) <300 pg/mL HEPATIC FUNCTION PANEL Result Value Ref Range Albumin 3.1 (L) 3.8 - 5.0 g/dL AST 11 10 - 50 U/L Alkaline Phosphatase 54 35 - 130 U/L ALT 11 10 - 50 U/L Bilirubin, Total 0.5 <=1.2 mg/dL Bilirubin, Direct <0.2 0.0 - 0.3 mg/dL Protein 6.3 6.0 - 8.3 g/dL LACTATE WITH REFLEX IF ABNORMAL Result Value Ref Range Lactate 1.4 0.4 - 2.0 mmol/L MAGNESIUM Result Value Ref Range Magnesium 1.9 1.5 - 2.6 mg/dL PT INR Result Value Ref Range Prothrombin Time 16.2 (H) 11.6 - 15.2 seconds INR 1.3 (H) 0.8 - 1.2 TROPONIN T, HIGH SENSITIVITY Result Value Ref Range Troponin T, High Sensitivity 51 (H) <=22 ng/L CBC Result Value Ref Range WBC 9.56 4.00 - 10.80 K/uL RBC 3.46 4.50 - 5.25 M/uL HGB 9.8 (L) 14.0 - 16.8 g/dL HCT 31.4 (L) 40.0 - 48.4 % MCV 90.8 82.0 - 99.5 fL MCH 28.3 27.0 - 34.0 pg MCHC 31.2 32.0 - 36.0 g/dL RDW 16.3 11.5 - 15.5 % PLT 241 140 - 400 K/uL MPV 9.3 6.6 - 11.1 fL nRBCs 0 <=0 /100 WBCs DIFFERENTIAL, AUTOMATED Result Value Ref Range WBC 9.56 4.00 - 10.80 K/uL Neutrophils % 91.6 (H) 40.0 - 75.0 % Lymphocytes % 2.5 (L) 18.0 - 42.0 % Monocytes % 4.6 1.0 - 11.0 % Eosinophils % 0.6 0.0 - 6.0 % Basophils % 0.3 0.0 - 2.0 % Immature Granulocytes % 0.4 0.0 - 2.0 % Absolute Neutrophils 8.75 (H) 1.80 - 7.70 K/uL Absolute Lymphocytes 0.24 (L) 1.00 - 4.80 K/ul Absolute Monocytes 0.44 0.00 - 1.10 K/uL Absolute Eosinophils 0.06 0.00 - 0.70 K/uL Absolute Basophils 0.03 0.00 - 0.20 K/uL Absolute Immature Granulocytes 0.04 0.00 - 0.20 K/uL URINALYSIS, REFLEX TO MICROSCOPIC Result Value Ref Range Color, Urine Brown (A) Light Yellow, Yellow, Dark Yellow Clarity, Urine Slightly Cloudy (A) Clear Glucose, Urine Negative Negative mg/dL Bilirubin, Urine Negative Negative Ketone, Urine Negative Negative mg/dL Specific Spencer, Urine 1.008 1.003 - 1.030 Blood, Urine Large (A) Negative pH, Urine 5.5 5.0 - 7.5 Units Protein, Urine 100 (A) Negative mg/dL Urobilinogen, Urine 0.2 0.2, 1.0 mg/dL Nitrite, Urine Negative Negative Esterase, Urine Large (A) Negative PROCALCITONIN Result Value Ref Range Procalcitonin 0.75 (H) <0.10 ng/mL MICROSCOPIC EXAM, URINE Result Value Ref Range RBC, Urine 50+ (A) 0 - 2 /HPF WBC, Urine 50+ (A) 0 - 2 /HPF Bacteria, Urine >200 (A) 0 - 25 /HPF Assessment and Plan IMPRESSION: Principal Problem: Acute on chronic respiratory failure with hypoxia (HCC) Active Problems: Atherosclerosis of coronary artery CKD (chronic kidney disease) PVD (peripheral vascular disease) (HCC) HTN (hypertension) HLD (hyperlipidemia) Anemia Pneumonia Heart failure with acute decompensation, type unknown (HCC) Cardiomyopathy (HCC) Central venous catheter in place, permanent HFrEF (heart failure with reduced ejection fraction) (HCC) COPD (chronic obstructive pulmonary disease) (HCC) Interstitial lung disease (HCC) Paroxysmal atrial fibrillation (HCC) Type 2 diabetes mellitus (HCC) Resolved Problems: * No resolved hospital problems. * DIFFERENTIAL AND PLAN: 78-year-old with past medical history CAD, MAEGAN, chronic resp failure 4L at baseline, CKD w/fistula but has not started HD, hypertension, hyperlipidemia, peripheral vascular disease, anemia on venoferand h/o lymphoma admitted for acute on chronic respiratory failure with hypoxia due to pneumonia versus acute CHF exacerbation admit tele Cont bipap pulm evaluation. Case discussed with dr long. He is aware of consult Mrsa screen Strep/legionella antigen Cards evaluation nephro eval Check echo Cont vanc and zosyn Bid IV lasix Check a1c prior to starting correctional insulin IMPORT EXPORT COORDINATOR meds reviewed with pharmacy and ordered. We discussed code status. Patient adamantly refuses mechanical intubation. PHARMACOLOGIC VTE PROPHYLAXIS: Apixaban CODE STATUS: Limited Code EXPECTED DISCHARGE DATE: No information available A total of 80 minutes was spent providing care for this patient on the unit/floor. More than half of the time was spent counseling and coordinating care for the patient. Maya elements of the counseling and coordination of care included medical management and coordination of care. This patient has sepsis and likely source of infection is respiratory. Clinical exam of the patient after fluid resuscitation showed: improvement This assessment was based on the following exam: Mental Status: alert, oriented to person, place, and time Cardiovascular: regular rate and rhythm Pulmonary: rales Capillary Refill: normal Peripheral Pulses: normal Skin: pale Vitals after Crystalloids Focused Exam documented in this encounter Procedure Notes * Jesse Ernandez DO - 04/30/2023 4:14 AM EDTAssociated Order(s): EKG REASON FOR STUDY: low HR CONCLUSIONS: Marked sinus bradycardia with 1st degree AV block with Premature supraventricular complexes Abnormal ECG When compared with ECG of 29-APR-2023 16:38, Sinus rhythm has replaced Atrial fibrillation Vent. rate has decreased BY 53 BPM Ventricular Rate: 43 Atrial Rate: 43 MT Interval: 240 QRS Duration: 106 QT/QTc: 520/439 ms P-R-T [place]: 46 : 16 : 54 degrees * Jesse Ernandez DO - 04/29/2023 4:38 PM EDTAssociated Order(s): EKG REASON FOR STUDY: afib CONCLUSIONS: Atrial fibrillation Nonspecific ST and T wave abnormality Left ventricular hypertrophy Abnormal ECG When compared with ECG of 29-APR-2023 11:45, Atrial fibrillation has replaced Normal sinus rhythm Ventricular Rate: 96 QRS Duration: 98 QT/QTc: 398/502 ms P-R-T [place]: 0 : 8 : 131 degrees * Jesse Ernandez DO - 04/29/2023 11:45 AM EDTAssociated Order(s): EKG REASON FOR STUDY: SOB CONCLUSIONS: Artifact Normal sinus rhythm Left ventricular hypertrophy Premature ventricular complexes ST & T wave abnormality, consider lateral ischemia Abnormal ECG When compared with ECG of 12-APR-2019 07:43, Lateral T-wave inversion is now present PVC's now present Ventricular Rate: 97 Atrial Rate: 98 QRS Duration: 82 QT/QTc: 316/401 ms P-R-T [place]: 0 : 10 : 153 degrees documented in this encounter Consult Notes * Daron Mayorga MD - 04/30/2023 2:47 PM EDTAssociated Order(s): NEPHROLOGY CONSULT IP Reason for Consult: CKD and CHF History of Present Illness: This 78-year-old male with history of CKD stage IV followed by [facility], CAD,MAEGAN,chronic resp failure on oxygen 4L at baseline, right forearm AV fistula placed about 3 years ago, paroxysmal atrial fibrillation on Eliquis, COPD, interstitial lung disease,hypertension, hyperlipidemia, peripheral vascular disease and anemia on venoferwho was admitted with shortness of breath found have CHF exacerbation and possible pneumonia. He is getting Zosyn and vancomycin. He is also getting Lasix 60 mg IV twice daily. Patient is the normal on Bumex 0.5 mg p.r.n.. Patient used take the Bumex on a daily basis but this was the stopped about 2 weeks ago and changed to p.r.n. basis. Patient has not taken Bumex for about 4 days prior toadmission. Spoke with the daughters and the will give additional history. Patient feels bettertoday. Breathing has improved. He has chronic right leg swelling. He is making urine and net negative about 2 L since admission. Review of Systems General ROS: negative for - chills or fever Psychological ROS: negative for - mood swings ENT ROS: negative for - nasal congestion or nasal discharge Endocrine ROS: negative Respiratory ROS: no cough, shortness of breath, or wheezing Cardiovascular ROS: no chest pain or dyspnea on exertion Gastrointestinal ROS: no abdominal pain, change in bowel habits, or black or bloody stools Genito-Urinary ROS: no dysuria, trouble voiding, or hematuria Musculoskeletal ROS: negative for - muscle pain Neurological ROS: no TIA or stroke symptoms Dermatological ROS: negative for rash Past Medical History Past Medical History: Diagnosis Date BPH without obstruction/lower urinary tract symptoms Cardiomyopathy (HCC) COPD (chronic obstructive pulmonary disease) (HCC) Coronary atherosclerosis Dyslipidemia, goal to be determined HTN, goal to be determined Interstitial lung disease (HCC) Lymphoma (HCC) Paroxysmal atrial fibrillation (HCC) Peripheral vascular disease (HCC) Type 2 diabetes mellitus (HCC) Venous thrombosis Past Surgical History Past Surgical History: Procedure Laterality Date DECOMPRESSION OF LEG FASCIA Current Medications Current Facility-Administered Medications Medication Dose Route Frequency Provider Furosemide (Lasix) inj 60 mg 60 mg IV Push BID (0900,1600) Florinda Mobley PA-C piperacillin-tazobactam in D5W (Zosyn) (HALF hour infusion) ivpb 4.5 g 4.5 g IV Piggyback Q12H NOW Ede Woodard MD Acetaminophen (Tylenol) supp 650 mg 650 mg Rectal Q6H PRN Maurice Andrews MD Acetaminophen (Tylenol) tab 650 mg 650 mg Oral Q6H PRN Maurice Andrews MD Apixaban (Eliquis) tab 5 mg 5 mg Oral BID(AM/PM) Maurice Andrews MD atorvaSTATin (Lipitor) tab 80 mg 80 mg Oral Q 1700 Maurice Andrews MD calcium CARBonate (Tums E-X) tab CHEW 750 mg 750 mg Oral BID PRN Maurice Andrews MD Calcium Carbonate 500 mg + Vitamin D 5 mcg (200 units) per tab 1 Tablet Oral Daily Noon Yuli Andrews MD citalopram (CeleXA) tab 40 mg 40 mg Oral Daily(AM) Maurice Andrews MD clopidogrel (pLAVix) tab 75 mg 75 mg Oral Daily(AM) Maurice Andrews MD Docusate Sodium (Colace) cap 100 mg 100 mg Oral Daily PRN Mauriec Andrews MD [START ON 05/01/2023] Drug Level Check - Vancomycin Random Does Not Apply Once Timed Lab 2hrs Maurice Andrews MD Finasteride (Proscar) tab 5 mg 5 mg Oral Daily(AM) Maurice Andrews MD guaiFENesin-dm (Robitussin DM) oral syrup 10 mL 10 mL Oral Q4H PRN Maurice Andrews MD house antacid (Mi-Acid II) oral susp 15 mL 15 mL Oral Q4H PRN Maurice Andrews MD melatonin tab 3 mg 3 mg Oral HS PRN Maurice Andrews MD Menthol (Lane) cough drop 1 Lozenge 1 Lozenge Oral Q2H PRN Maurice Andrews MD ondansetron (Zofran) inj 4 mg 4 mg IV Push Q6H PRN Maurice Andrews MD oxyCODONE (Oxy IR) tab 5 mg 5 mg Oral Q4H PRN Maurice Andrews MD oxygen GAS Inhalation Oxygen Thalia Silvestre MD Polyethylene Glycol 3350 (Miralax) oral powder 17 g 1 Packet Oral Daily PRN Maurice Andrews MD senna (Senokot) 1 Tablet 1 Tablet Oral Daily PRN Maurice Andrews MD sodium chloride 0.9 % flush peripheral ishmael 3 mL 3 mL IV Push Q Shift Maurice Andrews MD sodium chloride 0.9 % flush/inj 3 mL 3 mL IV Push PRN Maurice Andrews MD vancomycin (Vancocin) 500 mg in NSS 100 mL ivpb 500 mg IV Piggyback Q18 hours Maurice Andrews MD vancomycin per pharmacy order Does Not Apply Per Pharmacy Maurice Andrews MD Allergies Review of patient's allergies indicates: No Known Allergies Family History No family history on file. Social Hisotry Social History Socioeconomic History Marital status: Spouse name: Not on file Number of children: Not on file Years of education: Not on file Highest education level: Not on file Occupational History Not on file Tobacco Use Smoking status: Former Packs/day: 1.00 Years: 35.00 Pack years: 35.00 Types: Cigarettes Smokeless tobacco: Current Types: Snuff Substance and Sexual Activity Alcohol use: Yes Alcohol/week: 0.0 standard drinks Comment: Infrequent Drug use: Not on file Sexual activity: Not on file Other Topics Concern Not on file Social History Narrative Not on file Social Determinants of Health Financial Resource Strain: Not on file Food Insecurity: Not on file Transportation Needs: Not on file Physical Activity: Not on file Stress: Not on file Social Connections: Not on file Intimate Partner Violence: Not on file Housing Stability: Not on file PHYSICAL EXAM BP: 105 mmHg/43 mmHg (04/30/23 1150) Pulse: 77 (04/30/23 1150) Temp: 35.5 C (04/30/23 1150) Resp: 16 (04/30/23 1150) SpO2: 97 % (04/30/23 1300) GENERAL: Awake, alert, in no acute distress. EYES: PERRL, conjunctivae anicteric. ENT: Mucous membranes moist, oropharynx clear. NECK: Supple, no JVD. LYMPH: No cervical or supraclavicular lymphadenopathy. LUNGS: Clear to auscultation bilaterally, no respiratory distress. CARDIAC: Regular rate and rhythm, normal S1/S2, no murmurs, rubs, or gallops. ABDOMEN: Soft, non-tender, non-distended, bowel sounds present. EXT/MSK: No clubbing, cyanosis, or edema. SKIN: No rash, no jaundice. NEURO: Oriented x3, no tremor, no asterixis. Right forearm AV fistula with good bruit. Intake/Output Summary (Last 24 hours) at 04/30/2023 1447 Last data filed at 04/30/2023 1059 Gross per 24 hour Intake 200.08 ml Output 2530 ml Net -2329.92 ml LABS/STUDIES: Lab Results Component Value Date/Time BUN - [facility] 55 (H) 04/30/2023 07:02 AM BUN - [facility] 46 (H) 04/29/2023 05:27 PM BUN - [facility] 46 (H) 04/29/2023 11:56 AM BUN - [facility] 29 (H) 04/12/2019 06:29 AM BUN - [facility] 31 (H) 04/11/2019 06:06 AM BUN - [facility] 30 (H) 04/10/2019 07:05 PM BUN - [facility] 30 (H) 04/10/2019 03:07 PM BUN - [facility] 30 (H) 05/05/2009 10:43 AM BUN-[facility] 45 (H) 04/04/2023 06:46 AM BUN-[facility] 43 (H) 03/19/2023 01:39 PM BUN-[facility] 56 (H) 02/28/2023 01:08 PM BUN-[facility] 59 (H) 02/13/2023 10:32 AM BUN-OU[facility] LAB 42 (H) 02/05/2023 11:57 AM Lab Results Component Value Date/Time CREATININE - [facility] 3.4 (H) 04/30/2023 07:02 AM CREATININE - [facility] 3.1 (H) 04/29/2023 05:27 PM CREATININE - [facility] 2.9 (H) 04/29/2023 11:56 AM CREATININE - [facility] 2.3 (H) 04/12/2019 06:29 AM CREATININE - [facility] 2.4 (H) 04/11/2019 06:06 AM CREATININE - [facility] 2.3 (H) 04/10/2019 07:05 PM CREATININE - [facility] 2.4 (H) 04/10/2019 03:07 PM CREATININE - [facility] 2.2 (H) 01/29/2017 07:41 AM CREATININE - [facility] 1.4 05/05/2009 10:43 AM CREATININE CLEARANCE - [facility] 39 (L) 01/29/2017 07:41 AM CREATININE, 24 HOUR URINE - [facility] 1.542 01/29/2017 07:41 AM CREATININE, RANDOM URINE - [facility] 59 01/29/2017 07:41 AM CREATININE, RANDOM URINE - [facility] 89 05/11/2009 01:10 PM CREATININE-OUTSIDE LAB 2.7 (H) 04/04/2023 06:46 AM CREATININE-OU[facility] LAB 3.1 (HH) 03/19/2023 01:39 PM CREATININE-OUTSIDE LAB 2.9 (H) 02/28/2023 01:08 PM CREATININE-OUTSIDE LAB 3.0 (H) 02/13/2023 10:32 AM CREATININE-OUTSIDE LAB 3.0 (H) 02/05/2023 11:57 AM No components found for: E GLOM FILT RATE Lab Results Component Value Date/Time POTASSIUM - [facility] 4.6 04/30/2023 07:02 AM POTASSIUM - [facility] 4.9 04/29/2023 05:27 PM POTASSIUM - [facility] 5.2 (H) 04/29/2023 11:56 AM POTASSIUM - [facility] 4.2 04/12/2019 06:29 AM POTASSIUM - [facility] 4.2 04/11/2019 06:06 AM POTASSIUM - [facility] 4.4 04/10/2019 07:05 PM POTASSIUM-OUTSIDE LAB 4.4 04/04/2023 06:46 AM POTASSIUM-OUTSIDE LAB 4.0 03/19/2023 01:39 PM POTASSIUM-OUTSIDE LAB 4.4 02/28/2023 01:08 PM Lab Results Component Value Date/Time HGB - [facility] 9.2 (L) 04/30/2023 07:02 AM HGB - [facility] 9.8 (L) 04/29/2023 11:56 AM HGB - [facility] 10.4 (L) 09/01/2020 04:53 PM HGB - [facility] 8.4 (L) 04/14/2019 01:39 PM HGB - [facility] 8.2 (L) 04/12/2019 06:29 AM HGB - [facility] 8.2 (L) 04/11/2019 06:20 PM HGB - [facility] 7.8 (L) 04/11/2019 06:06 AM HGB - OUTSIDE LAB 10.0 (L) 04/16/2023 09:52 AM HGB - OUT[facility]IDE LAB 9.4 (L) 04/04/2023 06:46 AM HGB - OUTSIDE LAB 9.0 (L) 03/19/2023 01:39 PM HGB - OUTSIDE LAB 8.6 (L) 02/28/2023 01:08 PM HGB - OUTSIDE LAB 9.9 (L) 02/13/2023 10:32 AM MICROALBUMIN - OUTSIDE LAB Date/Time Value Ref Range Status 04/11/2023 09:59 AM 7.8 (H) 0.0 - 1.8 MG/DL Final Comment: Document delivery by [place] on behalf of [facility] *THE [employer] USES MICROALBUMIN/CREATINE RATIO : *<30 ug/mg CREATININE IS CLASSIFIED NORMAL *30-300 ug/mg CREATININE IS CLASSIFIED CLINICAL MICROALBUMINURIA *>300 ug/mg CREATININE IS CLASSIFIED CLINICAL ALBUMINURIA CLASSIFICATION OF A PATIENT SHOULD BE BASED ON TWO OF THREE ABNORMAL RESULTS COLLECTED WITHIN A 3 TO 6 MONTH TIME FRAME* 02/08/2022 10:42 AM 15.3 (H) 0.0 - 1.8 MG/DL Final Comment: Document delivery by [place] on behalf of [facility] *[employer] USES MICROALBUMIN/CREATINE RATIO : *<30 ug/mg CREATININE IS CLASSIFIED NORMAL *30-300 ug/mg CREATININE IS CLASSIFIED CLINICAL MICROALBUMINURIA *>300 ug/mg CREATININE IS CLASSIFIED CLINICAL ALBUMINURIA CLASSIFICATION OF A PATIENT SHOULD BE BASED ON TWO OF THREE ABNORMAL RESULTS COLLECTED WITHIN A 3 TO 6 MONTH TIME FRAME* MICROALBUMIN RATIO-OUTSIDE LAB Date/Time Value Ref Range Status 04/11/2023 09:59 AM 105 (H) 0 - 29 ug/mg Final Comment: Document delivery by [place] on behalf of [facility] 02/08/2022 10:42 AM 255 (H) 0 - 29 ug/mg Final Comment: Document delivery by [place] on behalf of [facility] No components found for: PROTCREATRAT Lab Results Component Value Date/Time PTH - [facility] 55 05/05/2009 10:43 AM Lab Results Component Value Date/Time PHOSPHORUS - [facility] 3.4 05/05/2009 10:43 AM PHOSPHORUS-OUTSIDE LAB 3.3 02/28/2023 01:08 PM ASSESSMENT/PLAN: This 78-year-old male with history of CKD stage IV followed by [facility], CAD,MAEGAN,chronic resp failure on oxygen 4L at baseline, right forearm AV fistula placed about 3 years ago, paroxysmal atrial fibrillation on Eliquis, COPD, interstitial lung disease,hypertension, hyperlipidemia, peripheral vascular disease and anemia on venoferwho was admitted with shortness of breath found have CHF exacerbation and possible pneumonia. Plan: 1. Acute kidney injury on CKD: Etiology likely ischemic ATN in setting of pneumonia. Creatinine is 3.4 today. Unclear baseline but likely in the 2s. Electrolytes are stable. Patient has the volume overload. No indication for dialysis at the moment. -daily BMP -avoid vancomycin levels above 25 which can be nephrotoxic -input output 2. Acute CHF exacerbation: This is the likely due to recent decrease in his diuretics. -continue Lasix 60 mg twice daily IV. -daily standing weight if able -patient will need daily oral diuretic on discharge 3. Anemia: Due to renal disease. Patient was receiving iron in the outpatient setting. No need to give IV iron while patient is the being treated for possible infection. The iron can be given after discharge. Daron Mayorga MD This note was generated with the help of voice recognition software. Please excuse for errors. * Red Umaña, JOSIE-Jordan - 04/30/2023 10:20 AM EDTAssociated Order(s): THORACIC MEDICINE / PULMONOLOGY CONSULT IP Images from the original note were not included. CONSULT - Thoracic / Pulmonary Medicine [facility] [id number] Name: Manuel De La Cruz Location: [facility] [id number] Date: 04/30/2023 Time: 10:20 AM REQUESTING SERVICE: Dr. Woodard Hospitalist REASON FOR CONSULT: AoC resp faliure(ILD), PNA HISTORY OF PRESENT ILLNESS: 78 year old WM with pmh significant for MAEGAN, CAD, chronic resp failure with hypoxia on 4L, CKD, paroxysmal afib on eliquis, here for "hypoxia and pna". The patient presents with increased SOB with wheezing and increased swelling in the RLE. He reportshx of COVID 3 years ago. He was placed on Bipap here int he ED. He was seen with attending when resp noted that he was having apnea like events on AVAPS with low tidal volumes when he was sleeping. When he was awake tidal volumes were fine and he was AOx 3. He is a poor historian, reports hx of OSAthough does not use CPAP QHS and uses O2 QHS daily. He reports that after he had covid his breathing has not been the same, he was hospitalized for 2 weeks with covid and was without vaccination for covid. He reports that he does not use O2 during the day. He denies any fever, chills, chest pain, palpitations, abd pain, NVD. He reports some swelling in the LE though not more then he is used to with swelling. PAST MEDICAL HISTORY: Past Medical History: Diagnosis Date BPH without obstruction/lower urinary tract symptoms Cardiomyopathy (HCC) COPD (chronic obstructive pulmonary disease) (HCC) Coronary atherosclerosis Dyslipidemia, goal to be determined HTN, goal to be determined Interstitial lung disease (HCC) Lymphoma (HCC) Paroxysmal atrial fibrillation (HCC) Peripheral vascular disease (HCC) Type 2 diabetes mellitus (HCC) Venous thrombosis PAST SURGICAL HISTORY: Past Surgical History: Procedure Laterality Date DECOMPRESSION OF LEG FASCIA FAMILY HISTORY: No family history on file. SOCIAL HISTORY: Social History Tobacco Use Smoking status: Former Packs/day: 1.00 Years: 35.00 Pack years: 35.00 Types: Cigarettes Smokeless tobacco: Current Types: Snuff Substance Use Topics Alcohol use: Yes Alcohol/week: 0.0 standard drinks Comment: Infrequent Drug use: Not on file ALLERGIES: Patient has no known allergies. ROS: Constitutional: (+) weakness and (+) fatigue ENT: (-) sinus trouble Cardiovascular: (+) lower extremity edema Pulmonary: (+) dyspnea with exertion Abdominal/GI: (-) abdominal pain Musculoskeletal: (+) joint pain Hematology/oncology: (-) night sweats Skin: (-) negative: no rash or new or changing moles PHYSICAL EXAMINATION: Most Recent Vital Signs: BP: 113 mmHg/66 mmHg (04/30/23 0758) Pulse: 56 (04/30/23 0916) Temp: 35.22 C (04/30/23 075) Resp: 18 (04/30/23 075) SpO2: 100 % (04/30/23 075) O2 Mode: O2 %: O2 %: 30 % (04/30/23 075) O2 Flow Rate: O2 flow rate: 4 L/MIN (04/29/23 1518) IPAP: IPAP: 16 cmH2O (04/30/23 0306) CPAP/EPAP: CPAP/EPAP Settings: 8 CMH2O (04/30/23 0700) Vital Signs Last 24 Hours: Systolic BP: Most Recent Systolic BP Av mmHg Min: 94 mmHg Max: 128 mmHg Temperature: Most Recent Temperature Av.7 C Min: 35.22 C Max: 39 C Pulse: Pulse Av.2 Min: 52 Max: 101 Respirations: Resp Av.5 Min: 14 Max: 33 SpO2: SpO2 Av.7 % Min: 92 % Max: 100 % Constitutional: no acute distress, (+) chronically ill HEENT: normal: normocephalic, atraumatic; no masses, tenderness, or adenopathy Neck: supple, normal range of motion CV: S1 and S2 noted. Chest: diminished bilaterally. Abdomen: soft, no rebound or guarding Musculoskeletal: (-) negative Extremities: +1 edema in the LE bilaterally. Skin: warm, dry, intact Neuro: alert, Glascow Coma Score 15 LABS: Labs reviewed as indicated below: Latest Reference Range & Units 04/29/23 11:56 04/29/23 17:05 pH, Arterial 7.350 - 7.450 units 7.431 7.255 (L) pCO2, Arterial 35.0 - 45.0 mmHg 28.3 (L) 46.4 (H) pO2, Arterial 75.0 - 100.0 mmHg 90.6 124.0 (H) O2 Content, Arterial 15.0 - 24.0 %vol 12.5 (L) 13.3 (L) O2 Flow, Arterial L/min Not Provided Not Provided Base Excess, Arterial -2.0 - 2.0 mmol/L -4.6 (L) -6.5 (L) Reduced Hemoglobin, Arterial 0.0 - 5.0 % total Hgb 2.3 1.8 Temperature C 37.0 37.0 Oxyhemoglobin, Arterial 94.0 - 99.0 % total Hgb 95.3 96.0 FiO2 % 35 30 Bicarbonate, Whole Blood 23.0 - 31.0 mmol/L 19.9Low Latest Reference Range & Units 04/29/23 11:56 Troponin T, High Sensitivity <=22 ng/L 51 (H) BNP, NT-Pro <300 pg/mL 10,734 (H) Latest Reference Range & Units 04/29/23 17:27 04/30/23 07:02 Sodium 135 - 146 mmol/L 137 141 Potassium 3.5 - 5.1 mmol/L 4.9 4.6 Chloride 98 - 107 mmol/L 106 107 CO2 22 - 32 mmol/L 19 (L) 22 BUN 6 - 20 mg/dL 46 (H) 55 (H) Creatinine 0.6 - 1.2 mg/dL 3.1 (H) 3.4 (H) Estimated Glomerular Filtration Rate >=60 mL/min 20 (L) 18 (L) Anion Gap 7 - 15 mmol/L 12 12 Glucose 70 - 120 mg/dL 175 (H) 160 (H) Calcium 8.4 - 10.2 mg/dL 8.5 8.5 Latest Reference Range & Units 04/29/23 11:56 04/29/23 17:05 04/30/23 07:02 WBC 4.00 - 10.80 K/uL 9.56 14.28 (H) HGB 14.0 - 16.8 g/dL 9.8 (L) 9.2 (L) Hemoglobin, Whole Blood 14.0 - 16.8 g/dL 9.3 (L) 9.7 (L) HCT 40.0 - 48.4 % 31.4 (L) 30.8 (L) MCV 82.0 - 99.5 fL 90.8 92.2 PLT 140 - 400 K/uL 241 204 Component Ref Range & Units 1 d ago Procalcitonin <0.10 ng/mL 0.75High Component Ref Range & Units Adenovirus by PCR Negative Negative Coronavirus 229E by PCR Negative Negative Coronavirus HKU1 by PCR Negative Negative Coronavirus NL63 by PCR Negative Negative Coronavirus OC43 by PCR Negative Negative Coronavirus SARS-CoV-2 by PCR Negative Negative Human Metapneumovirus by PCR Negative Negative Rhinovirus/Enterovirus by PCR Negative Negative Influenza A Virus by PCR Negative Negative Influenza B Virus by PCR Negative Negative Parainfluenza Virus 1 by PCR Negative Negative Parainfluenza Virus 2 by PCR Negative Negative Parainfluenza Virus 3 by PCR Negative Negative Parainfluenza Virus 4 by PCR Negative Negative Respiratory Syncytial Virus by PCR Negative Negative Bordetella pertussis by PCR Negative Negative Chlamydia pneumoniae by PCR Negative Negative Mycoplasma pneumoniae by PCR Negative Negative Bordetella parapertussis by PCR Negative Negative Per CXR: 04/29/23 Tubes, catheters and devices: Left IJ [id number]. Catheter tip just above the aortic arch unchanged. Lungs: Lungs show slightly increased prominence of interstitial markings bilaterally compared to previous exam. No focal airspace consolidation. Pleural spaces: Unremarkable. No pleural effusion. No pneumothorax. Heart/Mediastinum: Cardiomediastinal silhouette is normal. Bones/joints: Unremarkable. IMPRESSION IMPRESSION: Increased bilateral interstitial infiltrates or edema. IMPRESSION: 78 year old WM with pmh significant for MAEGAN, CAD, chronic resp failure with hypoxia on 4L, CKD, paroxysmal afib on eliquis, here for "hypoxia and pna". ABG shows PO2 of 124 on 30% FIO2, Bicarb of 19 and PCO2 of 46.4. BNP 10.7k, poor kidney function, WBC trending up, procal 0.75, RVP WNL, CXR read and reviewed by me via pacs which shows poor lung volumes, ekg strips intact, no blunting of costophrenic angle, port seen, opacities bilaterally. Pt is on 30% FIO2 and 100% SPO2. Pt was on inhalers in the past though taken off by [facility] who is following him. He reports that he normally just uses 4L O2 QHS daily and does not use O2 duringthe daytime. CT chest shows pulmonary nodules, largest being 1 cm in the KISHAN medially. Will need to have repeat CT chest OP to document resolution. Will need PFT as well. Pt followed by [facility] pulmonary Acute CHpEF Pulmonary edema Acute on chronic resp failure with hypoxia and hypercapnia Past use of tobacco MAEGAN Atelectasis Small Pulmonary nodules ILD Bilateral pleural effusions Patient was admitted for a primary diagnosis of COPD Exacerbation: no Patient has a diagnosis of COPD: no Does this patient have hypercarbic respiratory failure (pCO2 greater than 52)? No Patient is being followed by a New Business Clerk: yes, non-S PULMONARY CONSULTATION SUGGESTION(S): 1. Follow echo. 2. CT chest. 3. ABG. 4. Continue diuresis. 5. I and O. 6. Goals of care discussion. 7. Break off of Bipap. 8. OOB to chair as tolerated. 9. Continue O2, titrate down > 90% SPo2, < 96%. 10. Continue on 40 mg lasix BID daily. 11. Continue with Eliquis. 12. Abx per primary team. 13. F/U wit [facility] pulmonary. Patient seen and discussed with Dr. Wang, Pulmonary / Thoracic Medicine Attending. STAFF NOTE: Associated attestation - Ava Wang DO - 04/30/2023 3:37 PM EDT I have reviewed the advanced practitioner documentation and agree. I saw and evaluated the patient on date of service referenced in note and have performed the following medically appropriate historyand/or exam: 78 y/o obese (BMI 30) M with pmh MAEGAN non compliant with CPAP, CAD, chronic hypoxemic resp failure (4L at night), paroxysmal afib on eliquis, HFpEF, prior covid 19 pneumonia, CKD with fistula not yet on HD, ? COPD, HTN, HLD, chronic amenia, hx lymphoma admitted 04/29/23 with acute resp failure, BNP 10,734. procal 0.75, WBC 9.56. Cxr showed pulm edema. CT chest showed fiant mosaic attenuation, 10mm spiculated KISHAN nodule. Some mild dependent atelectasis TTE showed LVEF 50-54%, distal inferolat hypokinesis, LA mildly elarged. - no indication for transfer to ICU - needs to wear bipap WITH ALL SLEEP. F/u with sleep medicine as outpatient - needs outpatient f/u regarding lung nodule - rec continued goals of care discussions - deescalate antibiotics as appropriate - cont diuresis - he states he was taken off all inhalers. We do not have any PFTs for review - rest per ANN note * Jesse Ernandez, - 04/30/2023 9:05 AM EDTAssociated Order(s): Cardiology Consult IP Cardiology CONSULT [facility] [id number] Name: Manuel De La Cruz Location: [facility] [id number] Date: 04/30/2023 Time: 9:05 AM Cardiology Consult IP Consult performed by: Florinda Mobley PA-C Consult ordered by: Maurice Andrews MD REQUESTING SERVICE: Hospitalist REASON FOR CONSULT: CHF, bradycardia HPI: 78-year-old with past medical history CAD, MAEGAN, chronic resp failure 4L at baseline, CKD, w/fistula but has not started HD, paroxysmal atrial fibrillation on Eliquis, COPD, interstitial lung disease, hypertension, hyperlipidemia, peripheral vascular disease, anemia on venofer and h/o lymphoma who presented to the ED yesterday for increasing shortness of breath. Patient reports a fever with was at home that started around for today. He started getting more short of breath that started Sunday. He also reports wheezing as well. He reports that his right leg is at baseline edema. He is on chronic oxygen at home. Patient's work of breathing improved when switched from CPAP to BiPAP. Patient reports he has been following with cardiology at [facility]. Limited records per EMR. Patient is alimited historian and no family present at bedside. Patient reports breathing has improved. He remains on Bipap. PAST MEDICAL HISTORY: Past Medical History: Diagnosis Date BPH without obstruction/lower urinary tract symptoms Cardiomyopathy (HCC) COPD (chronic obstructive pulmonary disease) (HCC) Coronary atherosclerosis Dyslipidemia, goal to be determined HTN, goal to be determined Interstitial lung disease (HCC) Lymphoma (HCC) Paroxysmal atrial fibrillation (HCC) Peripheral vascular disease (HCC) Type 2 diabetes mellitus (HCC) Venous thrombosis PAST SURGICAL HISTORY: Past Surgical History: Procedure Laterality Date DECOMPRESSION OF LEG FASCIA FAMILY HISTORY: No family history on file. SOCIAL HISTORY: Social History Tobacco Use Smoking status: Former Packs/day: 1.00 Years: 35.00 Pack years: 35.00 Types: Cigarettes Smokeless tobacco: Current Types: Snuff Substance Use Topics Alcohol use: Yes Alcohol/week: 0.0 standard drinks Comment: Infrequent Drug use: Not on file ALLERGIES: Patient has no known allergies. ROS: Review of Systems Constitutional: Positive for activity change and fever. Negative for appetite change, fatigue and unexpected weight change. HENT: Negative for tinnitus, trouble swallowing and voice change. Eyes: Negative for visual disturbance. Respiratory: Positive for shortness of breath. Negative for cough. Cardiovascular: Positive for leg swelling. Negative for chest pain and palpitations. Gastrointestinal: Negative for abdominal distention and blood in stool. Genitourinary: Negative for difficulty urinating and hematuria. Musculoskeletal: Negative for myalgias. Skin: Negative for pallor. Neurological: Negative for dizziness, syncope, weakness, light-headedness, numbness and headaches. Psychiatric/Behavioral: Negative for confusion and sleep disturbance. PHYSICAL EXAMINATION: Most Recent Vital Signs: BP: 113 mmHg/66 mmHg (04/30/23757) Pulse: 52 (04/30/23757) Temp: 35.22 C (04/30/23757) Resp: 18 (04/30/23757) SpO2: 100 % (04/30/23757) Physical Exam Constitutional: General: He is not in acute distress. Appearance: Normal appearance. He is normal weight. He is not ill-appearing. HENT: Head: Normocephalic. Eyes: Pupils: Pupils are equal, round, and reactive to light. Cardiovascular: Rate and Rhythm: Normal rate and regular rhythm. Pulses: Normal pulses. Heart sounds: Normal heart sounds. No murmur heard. No friction rub. No gallop. Pulmonary: Effort: Pulmonary effort is normal. Breath sounds: Normal breath sounds. No wheezing, rhonchi or rales. Comments: On bipap Abdominal: General: Bowel sounds are normal. There is no distension. Palpations: Abdomen is soft. Musculoskeletal: General: Normal range of motion. Right lower leg: No edema. Left lower leg: No edema. Skin: General: Skin is warm and dry. Coloration: Skin is not pale. Neurological: General: No focal deficit present. Mental Status: He is alert and oriented to person, place, and time. Psychiatric: Mood and Affect: Mood normal. Judgment: Judgment normal. LABS: Labs reviewed as indicated below: IMAGING: EKG 04/30/2023 SB with first degree AV block 43bpm ECHO 2019 LV systolic function is at the lower limits of normal. Calculated LV ejection Fraction = 52% (bi-plane method of discs). The right ventricular systolic function is qualitatively normal. Mild aortic valve sclerosis is present. Mitral and tricuspid valves are unremarkable. Normal Doppler study. RV and PA systolic pressure cannot be estimated on the study. Mean right atrial pressure is estimated at 3 mm of mercury, which is normal. IMPRESSION and PLAN: 1. Acute on chronic respiratory failure -4L at baseline 2. HFrEF 3. Paroxysmal AFIB 4. ? Cardiomyopathy 5. T2 DM 6. CAD 7. 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 MAEGAN 9. COPD 10. Interstitial lung disease 11. HTN 12. HLD 13. PVD -right common femoral to mid posterior tibial artery bypass graft 14. ISAIAH -IV venofer 15. Hx of lymphoma 16. HX of DVT -Patient appears to be responding to IV diuresis with -2L out -Still appears volume overloaded -Baseline CKD with fistula, not yet received HD -Increase IV lasix to 60mg BID -Respiratory failure multifactorial with pneumonia and volume overload -Echocardiogram pending -CT chest pending -Continue to monitor on telemetry -Please record accurate I/O's and daily weights -CHF education reinforced Florinda Mobley PA-C Patient care discussed and coordinated with Dr. Ernandez. Please refer to Dr. Ernandez's notes for further recommendations. I have seen and evaluated this patient. He has chronic lung disease requires 4 L nasal cannula for oxygen at home. This morning when I entered the room he was on BiPAP. He states he has been having afever and a productive cough. He has been getting antibiotics, steroids, and IV diuretics. He states he is feeling somewhat improved. I agree with remainder the above history of present illness. I agree with the above past medical history, social history, family history, surgical history, and review of systems. Medications and allergies reviewed. General: Chronically ill-appearing man on BiPAP Eyes: conjunctiva are pink and non-injected, sclera clear Neck: normal jugular venous pulse, no hepatojugular reflux Chest: normal shape and normal respiratory effort Lungs: Scattered rales Cardiac Exam: - regular heart sounds, no murmurs, rubs, or gallops Abdomen: abdomen soft, non-tender, no abnormal masses and no hepatosplenomegaly Musculoskeletal: no gait disturbance, no weakness Extremities: 1 to 2+ right lower extremity edema, trace to +1 left lower extremity edema edema and no cyanosis Neuro: grossly normal exam Psych: appropriate affect and insight. 1. Acute on chronic diastolic heart failure: I suspect the reason for her shortness of breath is multifactorial. He has underlying lung disease requiring 4 L nasal cannula oxygen at home. He also washaving a fever and productive cough. He is getting intravenous diuretics which I think is very appropriate. 2. Presumed coronary artery disease: His echo had hypokinesis involving his distal inferolateral wall. 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 3. Paroxysmal atrial fibrillation: He is currently in sinus rhythm and has sinus bradycardia. Jesse Ernandez DO * Akanksha Kuo [facility] - 04/29/2023 3:54 PM EDT PHARMACY PHARMACOKINETIC CONSULT [address] [address] Name: Manuel De La Cruz Location: [facility] [id number] Date: 04/29/2023 Time: 3:54 PM Requesting service: Hospitalists Bacteria being treated: empiric Source of infection: Sepsis/respiratory Medication(s) being managed: Vancomycin Pharmacokinetic calculations will be performed utilizing [employer] software. Lab information: Lab Results Component Value Date/Time WBC 9.56 04/29/2023 11:56 AM WBC 6.5 04/16/2023 09:52 AM WBC 6.1 04/04/2023 06:46 AM WBC 6.3 03/19/2023 01:39 PM WBC 5.9 02/28/2023 01:08 PM WBC 5.1 02/05/2023 11:57 AM WBC 7.65 09/01/2020 04:53 PM WBC 4.44 04/14/2019 01:39 PM WBC 1.95 (L) 04/12/2019 06:29 AM WBC 1.68 (L) 04/11/2019 06:20 PM WBC 1.19 (L) 04/11/2019 06:06 AM Lab Results Component Value Date/Time BUN 46 (H) 04/29/2023 11:56 AM BUN 45 (H) 04/04/2023 06:46 AM BUN 43 (H) 03/19/2023 01:39 PM BUN 56 (H) 02/28/2023 01:08 PM BUN 59 (H) 02/13/2023 10:32 AM BUN 42 (H) 02/05/2023 11:57 AM BUN 29 (H) 04/12/2019 06:29 AM BUN 31 (H) 04/11/2019 06:06 AM BUN 30 (H) 04/10/2019 07:05 PM BUN 30 (H) 04/10/2019 03:07 PM BUN 30 (H) 05/05/2009 10:43 AM Lab Results Component Value Date/Time CREAT 2.9 (H) 04/29/2023 11:56 AM CREAT 2.7 (H) 04/04/2023 06:46 AM CREAT 3.1 (HH) 03/19/2023 01:39 PM CREAT 2.9 (H) 02/28/2023 01:08 PM CREAT 3.0 (H) 02/13/2023 10:32 AM CREAT 3.0 (H) 02/05/2023 11:57 AM CREAT 2.3 (H) 04/12/2019 06:29 AM CREAT 2.4 (H) 04/11/2019 06:06 AM CREAT 2.3 (H) 04/10/2019 07:05 PM CREAT 2.4 (H) 04/10/2019 03:07 PM CREAT 2.2 (H) 01/29/2017 07:41 AM CREAT 1.4 05/05/2009 10:43 AM ANTIMICROBIALS GIVEN (last 28 hours) Date/Time Action Medication Dose Rate 04/29/23 1333 New Bag Vancomycin (Vancocin) 2000 mg in NSS 500 mL ivpb 2,000 mg 275 mL/hr 04/29/23 1233 New Bag piperacillin-tazobactam in D5W (Zosyn) (HALF hour infusion) ivpb 4.5 g 4.5 g 200 mL/hr Wt Readings from Last 1 Encounters: 04/29/23 89.2 kg (196 lb 10.4 oz) Levels to date: Lab Results Component Value Date/Time VANCORANDOM 21.6 04/11/2019 06:06 AM Impression: Manuel De La Cruz is a/an 78 year old male receiving vancomycin therapy. The pharmacokinetic target for therapy is AUC24,SS (range) 400-600mg/L.hr Assessment and Plan: Recent measured serum creatinine values: 04/29/2023 11:56 2.9 mg/dL Assessment: Analysis using Rad gives the following patient-specific pharmacokinetic parameters: CL: 1.33 L/hr V: 74 L T1/2: 39.8 hours At this time we recommend a regimen of 500 mg IV every 18 hours, which is predicted to result in a steady-state trough of 18.1 mg/L and AUC24 of 493 mg/L.hr. Recommendations: - Vancomycin 500 mg IV every 18 hours - Obtain Vancomycin level 05/01 at 0600 - Continue to monitor serum creatinine Pharmacy will continue to follow and dose as appropriate by renal function, culture results, infectious disease input, and overall clinical status. Contact the Pharmacy at extension [phone] if there are any questions. Akanksha Kuo RPh documented in this encounter Nursing Notes * Delfina Hernandez RN - 05/02/2023 2:34 PM EDT VIRTUAL RN [address] [address] Name: Manuel De La Cruz Location: [address]/ Date: 05/02/2023 Time: 2:34 PM I completed the Discharge Navigator. The patient was in the hospital. I was in a private office space at a [facility] location. After connecting through [employer], the patient was identified by name and date of and / or wristband checked. Patient (or authorized legal delivery representative) was then in formed that this was a Virtual Nurse visit and was being conducted confidentially over secure lines. I used a headset and other methods to ensure confidentiality for the patient. Patient acknowledgedconsent and understanding of privacy and security of the Virtual Nurse visit. I presented the opportunity for the patient or authorized legal delivery representative to ask any questions regarding the visit today. The patient or authorized legal delivery representative agreed to participate. * Delfina Hernandez RN - 05/02/2023 2:31 PM EDT NURSING DISCHARGE PROGRESS NOTE [address] [address] Name: Manuel De La Cruz Location: [facility] 0/W Date: 05/02/2023 Time: 2:31 PM FUNCTIONAL INDEPENDENCE MEASURE (must be completed for all patients on discharge): Feedin = Complete independence Locomotion: 4 = Complete independence Expression: 4 = Complete independence Transfer Mobility: 4 = Complete independence Social Interaction: 4 = Complete independence Destination: Home OXYGENATION: Discharged with O2: No PATIENT DEVICES: None Reviewed discharge including meds START taking: Apixaban(Eliquis) Bumetanide(Bumex) Start taking on: May 03, 2023 Cefdinir(Omnicef) doxycycline Icon medications to change how you take CHANGE how you take: atorvaSTATin(Lipitor)-- how to take this, when to take this Calcium + D(Calcium Carbonate-Vitamin D)-- medication strength citalopram(CeleXA)-- how to take this, when to take this Finasteride(Proscar)-- how to take this, when to take this Icon medications to stop taking STOP taking: [id number] MG Tablet dilTIAZem CD180 MG Cp24 extended release capsule(dilTIAZem CD) Ergocalciferol (Vitamin D2)1.25 MG (62953 UT) Capsule(Drisdol) Pyfwyigpc688 MG Capsule(Gabapentin) ondansetron4 MG Tablet(Zofran) oxyCODONE-Acetaminophen7.5-325 MG per tablet fngctcizzdnd40 MG Tbec(Protonix) sodium lltdchouqtb296 MG Tablet jolBJPqn22 MG Tablet(Ultram) Review your ACTIVE MEDICATION LIST below for a complete list of your medications. Your Next Steps Icon do Do Icon Location Go DISCHARGE INSTRUCTIONS By Ryan Gloria MD at 05/02/23 7300 Discharge Date: 05/02/23 The information below provides you with the instructions and the list of medications you need to betaking following discharge from the hospital. If you have any questions, please ask before leaving. If you have questions after leaving, you can reach us at the numbers below. YOUR HOSPITAL PROVIDERS: Discharging Provider: Ryan Gloria MD Provider Department: Hospital Medicine To reach this Provider Sunday through Sunday (8:00 AM to 4:30 PM) for any questions or test results: Call [phone] For after-hours concerns: Call [phone] and have your provider paged, or the provider director content marketing for the Department of Hospital Medicine paged. Please note, the discharging provider will not be able to provide you with any medications refills.Please discuss these with your primary care provider. Worsening Symptoms: If you have new symptoms, or your symptoms get worse, please contact your Discharge Provider or Primary Care Provider (PCP). If these providers are not available, you can go to your local [facility] or Urgent Care Clinic during their business hours. In an EMERGENCY situation: Call [phone] or go to the nearest emergency room. A BRIEF SUMMARY OF YOUR HOSPITAL STAY: You came to the hospital with: complaint of shortness of breath Your main diagnosis at discharge was: Sepsis due to pneumonia Acute on chronic diastolic HF Paroxysmal atrial fibrillation, bradycardia Acute respiratory failure with hypoxia -resolved KATHY on CKD 4 Operations & Procedures performed: none Complications: none applicable Inpatient test results that are pending at discharge: none Advance Directive Documented: Advance Directive YOUR FOLLOW UP APPOINTMENTS: Primary Care Provider Information: PCP: Vinod Pang Jr, DO An appointment was requested with your PCP (Vinod Pang Jr, DO) within 7 days. Follow up iron infusion next week (Please take this form to this visit with your primary care physician.) You need the following studies in the future: BMP: date - in 1 week and CBC: date - in 1 week INSTRUCTIONS: Diet: Carbohydrate-controlled diet, Heart healthy diet Activity: As tolerated HEART FAILURE DISCHARGE INSTRUCTIONS Diagnosis: Congestive heart failure due to diastolic HF Fluid Restrictions: 2 L per day Weight Monitoring: Weigh yourself every morning before you eat, using the same scale, and write it in your weight diary. Pneumonia vaccine: defer to PCP Influenza vaccine: defer to PCP Last EF: 50-54% Follow Up: See your primary care provider regularly and keep all scheduled appointments. CALL YOUR DOCTOR IF YOU: ? Have a weight gain of 5 pounds ? Notice your feet, legs, or hands are swollen ? Notice a fast heart beat or palpitations ? Have increased cough especially at night ? Notice fullness in abdomen ? Have a loss of appetite ? Become easily dizzy or lightheaded ? Feel more short of breath than usual ? Have dry mouth (sign of dehydration) ? Have muscle cramps (sign of dehydration) * Yani Montgomery RN - 05/01/2023 4:10 PM EDT Assessment completed. AOX4. No c/o pain at this time. Call armendariz within reach Pt passed ambulatory pulse ox on RA. Pt remains on RA. SpO2 remains >95% * Marva Jackson RN - 04/30/2023 1:54 PM EDT 0800: Assessment completed by this RN. Pt is AOx4 laying in bed. Pt denies pain and nausea. Pt is using his abdominal muscles to breath, but stated that he "was feeling better compared to last night". Bipap on, mask adjusted for comfort. New IV site inserted by this RN. student life vice president at bedside. Pt's daughter, emergency contact #[phone], updated on the phone by this RN per her request. Call armendariz within reach. Bed at low level. 0900: This RN called pharmacy to clarify if pt should have another zosyn due to 0100 dose of zosyn just now finishing because of the previous IV site. Pharmacy confirmed to hold dose and they will adjust dosing scheduled. PO meds held due to NPO status. 1120: Pt's family notified by this RN due to a status change. Respiratory, Pulm, and Critical care at bedside evaluating pt. Pt's HR continuously drops into the 30s at times and pt is more lethargic.Pt has an increased WOB. Bipap remains on. See new orders. 1130: Pt transported to CT by this RN accompanied by the Respiratory Therapist. Bipap remains on. 1150: Pt transitioned from Bipap to 4L NC per critical care and Pulm's recommendations. Pt is AOx4 and denies feeling an increase in SOB while on 4L NC. 1300: Pt is AOx4 and denies feeling SOB. Pt is more awake and talkative at this time. Family at bedside. Mouth swabs provided to pt. Call armendariz within reach. Bed at low level. 1455: Provider Vance notified via TT to see if the pt would be able to have a diet order now that he is off continuous Bipap. Pt denies feeling SOB. No nausea. 1500: Bedside swallow passed. Provider made aware and replied that the pt can eat. * SN Aaron - 04/30/2023 8:30 AM EDT See the Licensed Professional's note for clinical information and recommendations. The signature ofthe Licensed Professional on this note acknowledges only the presence of the student's note within the patient record. By regulation, students' notes are for training and educational purposes only and play no part in the documentation of care or clinical treatment of patients. 0800: Patient is more alert and oriented this morning compared to yesterday according to primary RN. Patient switched from BiPAP to AVAP last evening. Lungs diminished bilaterally, pt breaths are deep but regular. Pt reporting no dyspnea at this time. Mask causing some breakdown on bridge of nose, Marva Raymundo RN., made aware. Pt has +3 edema noted in RLE and +2 edema noted in LLE. Pulses palpable and strong. Pt has no reports of pain, reports some discomfort from BiPAP causing very dry mouth. Patient left to rest in room with call armendariz within reach. 1200: Patient on a breathing trial per critical care physician recommendation to determine if patient will need upgraded to a higher level of care. Patient ABG's to be evaluated. Patient currently placed on 4 L/min via NC by respiratory. Will continue to monitor for SOB or decline. 1312: Patient states he feels no SOB or dyspnea. Patient still on NC oxygen delivery. Patient left to rest with call armendariz within reach, family present at bedside. 1402: Report given to Marva Raymundo RN. * Sulema Jackson RN - 04/29/2023 8:36 PM EDT 1919: this RN at bedside with KORIN MERCADO receiving report. Pt on BIPAP at this time. Machine alarming low respiratory rate and low tidal volume. Respiratory aware and at bedside. Respiratory placed pt from BIPAP to AVAPS. Pt tolerating. 1999: this RN spoke with Letty (daughter) and Sandra () over the phone to answer questions and update them on pt status. 2042: pt on continuous AVAPS with diet ordered. Per respiratory and Dr. Contreras pt changed to NPOand PO medications held at this time. 2100: when assessing pt's orientation status, pt is falling asleep in between questions. AAO x4 at this time. 0400: HR in the 30's BP 123/52. Dr. Contreras aware. Cardio consult placed, EKG resulted bradycardia w/ 1st degree AV block w/ PVCs, will continue to monitor via nuclear monitoring technician. * Donya Baptiste LPN - 04/29/2023 6:25 PM EDT 1530: Patient arrived to floor via wheelchair. BiPAP in place. Ambulated to bed with 1 assist. Vital signs obtained. Dual skin and assessment completed along side China Bonner RN. Admission questions completed. Care plan discussed and call armendariz placed within reach and reinforced use. 1611: Patient converted into A.Fib. EKG obtained. 1658: Patient more lethargic. Respiratory at bedside placing patient back on Bipap, poor resp effort noted. TT sent to Dr. Long and Dr. Andrews. Critical response nurse to bedside for assessment. Labsdrawn. Mccall placed at this time. IVP Lasix administered. IV antibiotics given. * Donya Baptiste LPN - 04/29/2023 6:16 PM EDT Dual Licensed Skin Assessment completed by China Bonner RN and Donya Baptiste LPN. The patient is/has a N/A Skin Breakdown (includes non blanchable erythema): No Scattered bruising and scratches with scabs Old scars on RLE from previous surgery. documented in this encounter ED Notes * Ruthie Ramírez RN - 04/29/2023 11:44 AM EDT Pt comes from home, chronic lung difficulty since COVID 3 years ago, chronically wears 4L at home, found to be 97% on 6L with cyanosis noted to nailbed. Placed on CPAP with rapid improvement. No medsPTA, 20G L forearm. * Thalia Silvestre MD - 04/29/2023 11:43 AM EDTAssociated Order(s): ECG Interpret HISTORY OF PRESENT ILLNESS Manuel De La Cruz is a 78 year old male who presents to the ED for evaluation of Short of Breath. The patient was seen at 04/29/23 1139. Shortness of breath. No chest pain. Nausea. Some coughing. His right leg always swells status post surgery on his leg x3. Symptoms started 2 days ago. Sleep apnea. Wears 4 L of oxygen at home at baseline. Per EMS the patient's pulse ox on 6 L of oxygen was 97% but he had central cyanosis including blue lips, had poor air movement, respiratory rate was up in the 30s, and he had rales 1 senior living up in both lung bases. He was placed on pre- hospital CPAP EN route. Per EMS the patient has had ongoing lungissues since COVID infection 3 years ago History provided by: patient and EMS History limited by: Speech difficult to understand as patient is wearing BiPAP which was placed on arrival. Review of Systems Unable to perform ROS: Acuity of condition (And difficulty understanding the patient's speech as heis currently on BiPAP) Respiratory: Positive for cough and shortness of breath. Cardiovascular: Positive for leg swelling. Negative for chest pain. Gastrointestinal: Positive for nausea. The patient's allergies, past history, and medications were reviewed. PHYSICAL EXAM Initial Vitals (see all): BP 116/74 | Pulse 101 | Resp 29 | Temp 102.2 | O2 95 %, Non-Invasive CPAP/BiPAP | Weight 89.2 kg | Height 172.7 cm | BMI 29.9 kg/m2 Initial Pain Assessment (see all): 0 (no pain)/10 ([facility] Adult Scale 0-10) Physical Exam Vitals and nursing note reviewed. Constitutional: General: He is in acute distress (Moderate. Somewhat dyspneic. Changed from pre- hospital CPAP to in-hospital BiPAP. Speech therefore a little difficult to understand). HENT: Head: Normocephalic and atraumatic. Eyes: Comments: Pale conjunctivae Neck: Thyroid: No thyromegaly. Trachea: No tracheal deviation. Cardiovascular: Rate and Rhythm: Normal rate and regular rhythm. Heart sounds: No murmur heard. No gallop. Pulmonary: Effort: Respiratory distress present. Breath sounds: Decreased air movement (Poor air movement) present. Examination of the left-lower field reveals rales. Rales present. Abdominal: General: Bowel sounds are normal. There is no distension. Palpations: Abdomen is soft. Tenderness: There is no abdominal tenderness. There is no guarding or rebound. Musculoskeletal: General: No swelling, tenderness or deformity. Normal range of motion. Cervical back: Normal range of motion and neck supple. No muscular tenderness. Right lower le+ Edema present. Left lower le+ Edema present. Lymphadenopathy: Cervical: No cervical adenopathy. Skin: General: Skin is warm and dry. Coloration: Skin is sallow. Skin is not cyanotic. Findings: No rash. Nails: There is no clubbing. Neurological: General: No focal deficit present. Mental Status: He is alert and oriented to person, place, and time. GCS: GCS eye subscore is 4. GCS verbal subscore is 5. GCS motor subscore is 6. Psychiatric: Mood and Affect: Mood normal. Behavior: Behavior normal. Behavior is cooperative. Comments: Speech somewhat difficult to understand due to BiPAP PROCEDURES AND TREATMENTS ED Orders | ED Results ECG Interpret Date/Time: 04/29/2023 12:02 PM Performed by: Thalia Silvestre MD Authorized by: Thalia Silvestre MD Previous ECG: Previous ECG: Compared to current Comments: Done at 11:45 shows baseline artifact. Appears to be normal sinus rhythm with frequent PVCs, rate 97. Normal axis. Inferior infarct. T inversions laterally. Nonspecific ST-T changes lateral precordial leads. Compared to prior EKG of 04/12/2019 done at 07:43, occasional premature supraventricular complexes are not currently evident. Frequent PVCs are not evident. T inversions laterally and nonspecific ST-T changes in the lateral precordial leads are new MEDICAL DECISION MAKING Nursing notes and vital signs were reviewed. ED consults were placed. ED Course as of 04/30/23 0039 Sun Apr 29, 2023 1200 Per ED nursing staff temperature is 39 C. Sepsis antibiotics ordered, deferring IV fluid bolus pending pro BNP results [DH] 1330 BP: 107/53 [DH] 1330 Pulse: 78 [DH] 1400 Marked elevation of proBNP, will therefore defer sepsis IV fluids at this time. [DH] 1401 No prior recent proBNP available for comparison. Patient did have a BNP of 900, which is an elevated BNP, in March of this year [DH] 1402 Chronic kidney disease but slight increase in creatinine, was 2.3 on prior results [DH] 1402 Somewhat elevated troponin but markedly improved compared to several years ago [DH] 1415 Reassessment: Patient appears comfortable. Family member at bedside says the patient is followed at [facility] by cardiology. Defibrillator was recommended but patient has frequently been getting infection so that has been deferred. ED nursing staff also notes the patient has a little bit of erythema proximal to left forearm IV where vancomycin is infusing. Patient without any other reaction including itching or dyspnea. ED nursing staff will monitor. Approximately 2 cm area of pink erythema proximal to left forearm IV is noted, no urticaria noted [DH] 1441 Per discussion with hospitalist Dr. Andrews, it is noted that the patient has been followed by Dr. Marks ED physician Will contact Dr. Marks [] ED Course User Index [DH] Thalia Silvestre MD Differential Diagnoses Based on my history, physical exam, and evaluation, the differential includes, but is not limited, to the following diagnoses: Congestive heart failure, pneumonia, doubt pulmonary embolism. Upper respiratory infection, viral syndrome. Clinical Impressions Acute on chronic respiratory failure with hypoxia (HCC) Congestive heart failure, unspecified HF chronicity, unspecified heart failure type (HCC) Acute febrile illness Disposition Admitted. I discussed the management of this patient with the admitting provider and I made a decision to admit the patient. Admission Order Ordered Status . 04/29/23 1453 Admit for Inpatient Services (incl ZPO) ONCE Completed Thalia Silvestre This chart was completed in part utilizing [employer] Voice Recognition Software. Grammatical errors, random word insertions, prounoun errors, and incomplete sentences are an occasional consequence of this system due to software limitations, ambient noise, and hardware issues. Any formal questions or concerns about the content, text, or information contained within the body of this dictation should be directly addressed to the provider for clarification. Thalia Silvestre MD 04/30/2023 12:39 AM documented in this encounter Miscellaneous Notes * Pt Handout (on AVS) - Dagmar Anderson RN - 05/02/2023 2:04 PM EDT Images from the original note were not included. [id number] Apixaban Oral Tablet Brands: Fabienne Uses This medicine is used for the following purposes: blood disorder prevent blood clots treatment of blood clots blood clot Instructions This medicine may be taken with or without food. This medicine will work best if you take it at about the same time every day. Store at room temperature away from heat, light, and moisture. Do not keep in the bathroom. It is important that you keep taking each dose of this medicine on time even if you are feeling well. If you forget to take a dose on time, take it as soon as you remember. If it is almost time for thenext dose, do not take the missed dose. Return to your normal schedule. Do not take 2 doses at one time. Drug interactions can change how medicines work or increase risk for side effects. Tell your healthcare providers about all medicines taken. Include prescription and pklh-map-gfwilqb medicines, vitamins, and herbal medicines. Speak with your doctor or pharmacist before starting or stopping any medicine. Talk to your doctor before taking other medicines, including aspirins and ibuprofen containing products. Speak to your doctor about which medicines are safe to use while you are on this medicine. It is very important that you follow your doctor's instructions for all blood tests. Cautions This medicine may cause serious bleeding problems in patients taking blood thinner medications. Follow your doctor's instructions carefully to monitor your blood lab tests if you are on blood thinners. Tell your doctor and pharmacist if you ever had an allergic reaction to a medicine. This medicine may cause serious bleeding from the stomach or bowels. Stop this medicine and call your doctor immediately if you see any signs of bleeding. Bleeding can cause pain in the stomach, vomiting up liquid that looks like coffee grounds, and red or dark tarry stools. There is an increased risk of bleeding while on this medicine, please tell your doctor or nurse if you notice any excessive bleeding or bruising. Do not use the medication any more than instructed. Please check with your doctor before drinking alcohol while on this medicine. Do not breastfeed while on this medicine. This medicine can hurt a new baby in the womb. If you become while on this medicine, tell your doctor immediately. Your doctor may switch you to a different medicine. Do not take Katya's wort while on this medicine. Do not share this medicine with anyone who has not been prescribed this medicine. Some patients have serious side effects from this medicine. Ask your pharmacist to show you the information from the Food and Drug Administration (FDA) and discuss it with you. Always refill this medicine before it runs out. Side Effects The following is a list of some common side effects from this medicine. Please speak with your doctor about what you should do if you experience these or other side effects. nosebleeds Call your doctor or get medical help right away if you notice any of these more serious side effects: bleeding or bruising coughing up blood or vomit that looks like coffee grounds fainting numbness or tingling in hands and feet severe or persistent headache sudden leg pain, swelling, warmth or redness loss of movement anywhere on the body shortness of breath bloody or dark, tarry stools symptoms of stroke (such as one-sided weakness, slurred speech, confusion) difficulty swallowing unusual or unexplained tiredness or weakness blood in urine blurring or changes of vision A few people may have an allergic reaction to this medicine. Symptoms can include difficulty breathing, skin rash, itching, swelling, or severe dizziness. If you notice any of these symptoms, seek medical help quickly. Extra Please speak with your doctor, nurse, or pharmacist if you have any questions about this medicine. [email or web address] IMPORTANT NOTE: This document tells you briefly how to take your medicine, but it does not tell youall there is to know about it. Your doctor or pharmacist may give you other documents about your medicine. Please talk to them if you have any questions. Always follow their advice. There is a more complete description of this medicine available in Beninese. Scan this code on your smartphone or tablet or use the web address below. You can also ask your pharmacist for a printout. If you have any questions, please ask your pharmacist. The display and use of this drug information is subject to Terms of Use. Copyright(c) 2022 [employer]. 9138-2123 [employer]. All rights reserved. This information is not intended as a substitute for professional medical care. Always follow your healthcare professional's instructions. * Pt Handout (on AVS) - Dagmar Anderson RN - 05/02/2023 2:04 PM EDT Images from the original note were not included. [id number] Bumetanide Oral Tablet Brands: Bumex Uses This medicine is used for the following purposes: high blood pressure swelling Instructions This medicine may be taken with or without food. This medicine will work best if you take it at about the same time every day. Keep the medicine at room temperature. Avoid heat and direct light. This medicine will make you urinate more. If you have difficulty passing urine, please tell your doctor. It is important that you keep taking each dose of this medicine on time even if you are feeling well. If you forget to take a dose on time, take it as soon as you remember. If it is almost time for thenext dose, do not take the missed dose. Return to your normal schedule. Do not take 2 doses at one time. Tell your doctor and pharmacist about all your medicines. Include prescription and gako-uhk-pasdeuitverbetpn, vitamins, and herbal medicines. Do not suddenly stop taking this medicine. Check with your doctor before stopping. This medicine may affect your blood sugar levels. If you have diabetes, talk to your doctor before changing the dose of your diabetes medicine. It is very important that you follow your doctor's instructions for all blood tests. Cautions Tell your doctor and pharmacist if you ever had an allergic reaction to a medicine. Do not use the medication any more than instructed. This medicine may cause dizziness or fainting, especially after exercising or in hot weather. Be very careful when standing or sitting up quickly. Your ability to stay alert or to react quickly may be impaired by this medicine. Do not drive or operate machinery until you know how this medicine will affect you. It is unknown if this medicine passes into breast milk. Ask your doctor before . During , this medicine should be used only when clearly needed. Talk to your doctor about the risks and benefits. Do not start or stop any other medicines without first speaking to your doctor or pharmacist. Do not share this medicine with anyone who has not been prescribed this medicine. Side Effects The following is a list of some common side effects from this medicine. Please speak with your doctor about what you should do if you experience these or other side effects. constipation dizziness headaches low blood pressure increased urinary frequency Call your doctor or get medical help right away if you notice any of these more serious side effects: confusion ear problems (ringing in the ears, hearing loss) fainting numbness or tingling in hands and feet fast or irregular heart beats muscle cramps or weakness nausea unusual or unexplained tiredness or weakness urinating less often A few people may have an allergic reaction to this medicine. Symptoms can include difficulty breathing, skin rash, itching, swelling, or severe dizziness. If you notice any of these symptoms, seek medical help quickly. Extra Please speak with your doctor, nurse, or pharmacist if you have any questions about this medicine. [email or web address] IMPORTANT NOTE: This document tells you briefly how to take your medicine, but it does not tell youall there is to know about it. Your doctor or pharmacist may give you other documents about your medicine. Please talk to them if you have any questions. Always follow their advice. There is a more complete description of this medicine available in Beninese. Scan this code on your smartphone or tablet or use the web address below. You can also ask your pharmacist for a printout. If you have any questions, please ask your pharmacist. The display and use of this drug information is subject to Terms of Use. Copyright(c) 2022 [employer] 5887-9509 [employer]. All rights reserved. This information is not intended as a substitute for professional medical care. Always follow your healthcare professional's instructions. * Pt Handout (on AVS) - Dagmar Anderson RN - 05/02/2023 2:04 PM EDT Images from the original note were not included. [id number] Cefdinir Oral Capsule Uses For treating bacterial infection. Instructions This medicine may be taken with or without food. Keep the medicine at room temperature. Avoid heat and direct light. Do not take this medicine with antacids. Do not take any antacid or vitamins with magnesium, calcium, aluminum, or iron for 2 hours before and 2 hours after taking this medicine. If you forget to take a dose on time, take it as soon as you remember. If it is almost time for thenext dose, do not take the missed dose. Return to your normal schedule. Do not take 2 doses at one time. Tell your doctor and pharmacist about all your medicines. Include prescription and nyko-hsa-xyzvtspzzzkauxbp, vitamins, and herbal medicines. Keep using this medicine for the full number of days that it is prescribed. Do not stop the medicine even if you start to feel better. If you have diabetes and use urine glucose tests, this medicine may cause incorrect results. Pleasecheck with your doctor before making any changes to your diabetes treatment plan. Keep all appointments for medical exams and tests while on this medicine. Cautions Tell your doctor and pharmacist if you ever had an allergic reaction to a medicine. Do not use the medication any more than instructed. Contact your doctor if you notice a change in the amount or darkening of your urine. Speak with your health care provider before receiving any vaccinations. Please tell your doctor if you have moderate to severe diarrhea while on this medicine. Do not treat the diarrhea with hseg-chs-temyvjw diarrhea medicine. Tell the doctor or pharmacist if you are , planning to be , or . Do not start or stop any other medicines without first speaking to your doctor or pharmacist. Do not share this medicine with anyone who has not been prescribed this medicine. Side Effects The following is a list of some common side effects from this medicine. Please speak with your doctor about what you should do if you experience these or other side effects. diarrhea changes in the color of the urine or stool headaches nausea and vomiting stomach upset or abdominal pain yeast infection of mouth vaginal itching or yeast infection Call your doctor or get medical help right away if you notice any of these more serious side effects: confusion severe, watery or bloody diarrhea signs of liver damage (such as yellowing of eye or skin, dark urine, or unusual tiredness) red, burning, or itchy skin increased urinary frequency urinating less often A few people may have an allergic reaction to this medicine. Symptoms can include difficulty breathing, skin rash, itching, swelling, or severe dizziness. If you notice any of these symptoms, seek medical help quickly. Extra Please speak with your doctor, nurse, or pharmacist if you have any questions about this medicine. [email or web address] IMPORTANT NOTE: This document tells you briefly how to take your medicine, but it does not tell youall there is to know about it. Your doctor or pharmacist may give you other documents about your medicine. Please talk to them if you have any questions. Always follow their advice. There is a more complete description of this medicine available in Beninese. Scan this code on your smartphone or tablet or use the web address below. You can also ask your pharmacist for a printout. If you have any questions, please ask your pharmacist. The display and use of this drug information is subject to Terms of Use. Copyright(c) 2022 [employer]. [employer]. All rights reserved. This information is not intended as a substitute for professional medical care. Always follow your healthcare professional's instructions. * Pt Handout (on AVS) - Dagmar Anderson RN - 05/02/2023 2:04 PM EDT Images from the original note were not included. [id number] Doxycycline Oral Tablet Brands: Acticlate, Adoxa, Avidoxy, Targadox Uses For treating bacterial infection. Instructions Take the medicine with 250 mL (1 cup) of water. Take on empty stomach - 1 hour before or 2 hours after eating. Sit or stand upright for 30 minutes after taking the medicine. Do not lie down. Keep the medicine at room temperature. Avoid heat and direct light. Do not take any antacid or vitamins with magnesium, calcium, aluminum, or iron for 2 hours before and 2 hours after taking this medicine. This medicine can make you sensitive to the sun. Use sunscreen or protective clothing when in sun. If you forget to take a dose on time, take it as soon as you remember. If it is almost time for thenext dose, do not take the missed dose. Return to your normal schedule. Do not take 2 doses at one time. Drug interactions can change how medicines work or increase risk for side effects. Tell your healthcare providers about all medicines taken. Include prescription and hrek-rri-njpvlsm medicines, vitamins, and herbal medicines. Speak with your doctor or pharmacist before starting or stopping any medicine. Keep using this medicine for the full number of days that it is prescribed. Do not stop the medicine even if you start to feel better. This medicine can cause permanent change in teeth color in children. Cautions Tell your doctor and pharmacist if you ever had an allergic reaction to a medicine. Do not use the medication any more than instructed. Contact your doctor if you notice a change in the amount or darkening of your urine. Please tell your doctor if you have moderate to severe diarrhea while on this medicine. Do not treat the diarrhea with estq-feb-obvoara diarrhea medicine. This medicine passes into breast milk. Ask your doctor before . This medicine can hurt a new baby in the womb. If you become while on this medicine, tell your doctor immediately. Your doctor may switch you to a different medicine. Do not share this medicine with anyone who has not been prescribed this medicine. Side Effects The following is a list of some common side effects from this medicine. Please speak with your doctor about what you should do if you experience these or other side effects. diarrhea nausea and vomiting stomach upset or abdominal pain yeast infection of mouth vaginal itching or yeast infection Call your doctor or get medical help right away if you notice any of these more serious side effects: swelling in the neck or throat difficulty swallowing blurring or changes of vision A few people may have an allergic reaction to this medicine. Symptoms can include difficulty breathing, skin rash, itching, swelling, or severe dizziness. If you notice any of these symptoms, seek medical help quickly. Extra Please speak with your doctor, nurse, or pharmacist if you have any questions about this medicine. [email or web address] IMPORTANT NOTE: This document tells you briefly how to take your medicine, but it does not tell youall there is to know about it. Your doctor or pharmacist may give you other documents about your medicine. Please talk to them if you have any questions. Always follow their advice. There is a more complete description of this medicine available in Beninese. Scan this code on your smartphone or tablet or use the web address below. You can also ask your pharmacist for a printout. If you have any questions, please ask your pharmacist. The display and use of this drug information is subject to Terms of Use. Copyright(c) 2022 [employer]. [employer]. All rights reserved. This information is not intended as a substitute for professional medical care. Always follow your healthcare professional's instructions. * Hospital Course - Nadine Álvarez, Medical Student - 05/02/2023 12:57 PM EDT Manuel De La Cruz was admitted on 04/29 for acute hypoxic respiratory failure, worked up for pneumonia with sepsis vs congestive heart failure exacerbation vs respiratory exacerbation in the context of underlying COPD and interstitial lung disease. At admission, labs were significant for acute kidney injury on chronic kidney disease, moderately elevated troponin and significantly elevated BNP, and bilateral lung infiltrates on chest X-ray. Pt reported using 4L nasal cannule at home at rest and 6L with activity, and came to the ED on BiPAP to reduce work of breathing. The first night of his stay, ventilation settings were changed to AVAPS to provide minimum respiratory rate and set inspiratory volume because of severe apnea. On suspicion of over-oxygenation, the team weaned his supplemental oxygen the next day. By the end of his third day he was breathing room air and able to maintain oxygensaturation in the 90s at rest, with ambulation, and while asleep. He was diuresed with IV furosemide and then transitioned to oral bumetanide at home dose. He is agreeable to continuing daily bumetanide at home. As of morning of discharge, he weighed about 16 pounds less than at admission. Pt has remained afebrile with appropriate blood pressure and no evidence of sepsis. He will discharge on for empiric treatment of community-acquired pneumonia. * Diagnostic Clarification - Ede Woodard MD - 05/01/2023 5:58 PM EDT After study, sepsis has been ruled out. * Ancillary Progress Note - Antoinette Perkins, PATIENT CARE - 05/01/2023 11:20 AM EDT HOME OXYGEN / EQUIPMENT QUALIFICATION- Respiratory Care Services [facility] [id number] Name: Manuel De La Cruz Location: [facility] [id number] Date: 05/01/2023 Time: 11:20 AM Date and Time performed: 05/01/2023 at 11:20 AM 1. Lab Results (On Room Air): Inpatient- Testing must be performed within 48 hours prior to discharge. Rest: SpO2 97 % Date: 05/01/23 2. Is SpO2 on room air at rest greater than 88%? yes If greater than 88% 3. Exercise Only: SpO2(Exercise-Room Air): 92 % Date: 05/01/23 * Ancillary Progress Note - Rosalinda Winters RRT - 04/29/2023 7:55 PM EDT Went to patient bedside after nurse asked if there is anything else to do with the patient having alow tidal volume and rate. When looking at the patient, I observed poor respiratory effort with periods of apnea. Patient was placed on AVAPS to help with poor respiratory effort. Little improvement noted with AVAPS. Nurse aware. * Medical Necessity - Clotilde Santos RN - 04/29/2023 3:35 PM EDT AdmissionCare Guideline: Respiratory Failure, Inpatient Based on the indications selected for the patient, the bed status of Admit to Inpatient was determined to be MET The following indications were selected as present at the time of evaluation of the patient: - New (acute) need for mechanical invasive or noninvasive (eg, bilevel positive airway pressure (BPAP), volume-assured pressure support (VAPS), or volume control) ventilation Severe respiratory distress, as indicated by 1 or more of the following: - - Severe tachypnea (respiratory rate greater than 30 breaths per minute, greater than 45 for child 6 months of age, greater than 60 for ) Additional Information: Acute on chronic respiratory failure with hypoxia SPO2 96 bipap (Wears 4 L of oxygen at home at baseline) RR 33, T 39, 38.4, Pulse 101 IV vanco, IV solumedrol, IV zosyn, duoneb, iv lasix AdmissionCare documentation entered by: Clotilde Santos [facility] [employer], 26th edition, Copyright 2021 [facility] [employer], [facility] [facility] All Rights Reserved. [id number] Solely for purpose of utilization review and payment; not a diagnostic tool. Associated attestation - Maurice Andrews MD - 04/29/2023 3:51 PM EDT Maurice Andrews MD * Communication - Katie Broderick RN - 04/29/2023 2:58 PM EDT Hand-Off - Nurse Communication Note Name: Manuel De La Cruz Location: Date: 04/29/2023 Time: 2:58 PM Sending to: [facility] Safety Concerns: Fall Risk Allergies: Patient has no known allergies. Code Status: No code status on file Isolation: None Isolation flowsheet: Special Needs: Special Needs comments: Attention to: 4B RN Report from: Katie Broderick RN Phone extension: [phone] Patient arriving via: Bed Reason for SBAR handoff: Admission Situation/Background Admission date: 04/29/2023 Patient Service: Hospitalists [[id number]] Attending Provider: Maurice Andrews MD Admitting diagnosis: Acute on chronic respiratory failure with hypoxia (HCC) Chief Complaint: Short of Breath Problem list: Active Problems: * No active hospital problems. * Resolved Problems: * No resolved hospital problems. * Level of Care: Med Surg [3] Assessment Vital Signs: BP: 119/58 (04/29/23 1430) Temp: (!) 38.4 C (101.2 F) (04/29/23 1330) Pulse: 70 (04/29/23 1430) Resp: 27 (04/29/23 1430) SpO2: 98 % (04/29/23 1430) Weight: 87.1 kg (192 lb) (04/29/23 1140) Height: 175.3 cm (5' 9") (04/29/23 1140) Fall Scale: Fall Score: 70 (04/29/23 1241) Fall Interventions: Bed at low level;Floor free of clutter;Walk path free of obstacles (04/29/23 1241) Neurological: [place] Coma Scale Eyes Open: Spontaneous (04/29/23 1142) Best Verbal Response: Verbally appropriate for age (04/29/23 1142) Best Motor Response: Obeys commands appropriate for age (04/29/23 1142) Coma Score: 15 (04/29/23 1142) Additional Neurological Information: Respiratory: Respiratory WNL: X- Exceptions to WNL (04/29/23 124) Cough: Occasional;Productive (04/29/23 124) Depth/Rhythm: Regular (04/29/23 124) Dyspnea Occurance: At Rest (04/29/23 124) Effort: Labored (04/29/23 124) Effort Characteristics: Abdominal Muscle Use;Accessory Muscle Use;Gasping (04/29/23 124) Oxygen therapy/ Mechanical vent O2 %: 30 % (04/29/23 1330) Supplemental O2 Delivery: Non-Invasive CPAP/BiPAP (04/29/23 1330) NIV/CPAP Mask/Prongs: Mask (04/29/23 1330) O2 Device Skin Integrity : Skin unaffected (04/29/23 1200) Additional Respiratory Information: Cardiac: Rhythm: Regular (04/29/23 124) Extremities: +Sensation;Right;Left;Lower;Upper;Warm (04/29/23 1242) Pulses Right: Radial +;Palpable;Dorsalis Pedis + (04/29/23 1242) Pulses Left: Dorsalis Pedis +;Palpable;Radial + (04/29/23 1242) Edema: Yes (04/29/23 124) Edema Location: Lower extremities;Both (04/29/23 124) Edema Assessment: +3 - Description (see note) (04/29/23 124) Additional Cardiac Information: HD fistula R wrist GI/: Abdomen: Non-distended;Rounded;Firm;Non-tender (04/29/23 124) Bowel Sounds: All Quadrants;Present;Regular (04/29/23 124) Additional GI/ Information: continent of bowel/bladder Integumentary: Skin Description: Dry;Warm (04/29/23 124) Skin Color: Flesh Tone;Mucus Membranes [place];Nail beds pink (04/29/23 124) Additional Integumentary Information: mild erythema L forearm proximal to forearm IV Restraints: No orders of the defined types were placed in this encounter. Lines: Peripheral Line Left;Lower 20 Gauge (Active) Status Flushes easily;Capped/Locked 04/29/23 1146 Tubing Changed N/A 04/29/23 114 Phlebitis Scale 0 04/29/23 114 Infiltration Scale 0 04/29/23 114 Site Description (Other) Without redness, swelling or drainage 04/29/23 114 Site Intervention Flushed 04/29/23 114 Dressing Assessment Dressing clean, dry, and intact;Transparent dressing 04/29/23 114 Dressing Intervention None required 04/29/231145 Number of days: 0 Peripheral Line Left Antecubital 20 Gauge (Active) Status Flushes easily;Positive blood return 04/29/23 115 Tubing Changed N/A 04/29/231155 Phlebitis Scale 0 04/29/23 1156 Infiltration Scale 0 04/29/23 115 Site Description (Other) Without redness, swelling or drainage 04/29/23 115 Site Intervention Flushed 04/29/231155 Dressing Assessment Dressing clean, dry, and intact;Transparent dressing 04/29/231155 Dressing Intervention Applied 04/29/23 115 Number of days: 0 Labs: Labs This Encounter BLOOD GAS, ARTERIAL - Abnormal; Notable for the following components: Result Value Ref Range pCO2, Arterial 28.3 35.0 - 45.0 mmHg Base Excess, Arterial -4.6 -2.0 - 2.0 mmol/L Hemoglobin, Whole Blood 9.3 14.0 - 16.8 g/dL Carboxyhemoglobin, Whole Blood 1.8 <=1.5 % total Hgb O2 Content, Arterial 12.5 15.0 - 24.0 %vol Bicarbonate, Whole Blood 18.5 23.0 - 31.0 mmol/L All other components within normal limits BASIC METABOLIC PANEL - Abnormal; Notable for the following components: BUN 46 6 - 20 mg/dL Creatinine 2.9 0.6 - 1.2 mg/dL Estimated Glomerular Filtration Rate 21 >=60 mL/min Potassium 5.2 3.5 - 5.1 mmol/L CO2 19 22 - 32 mmol/L Glucose 163 70 - 120 mg/dL All other components within normal limits BNP, NT-PRO - Abnormal; Notable for the following components: BNP, NT-Pro 10,734 <300 pg/mL All other components within normal limits Narrative: Exclude Heart Failure: <300 pg/mL Diagnose Heart Failure: Age <50 yr: >450 pg/mL 50-75 yr: >900 pg/mL >75 yr: >1800 pg/mL GFR is 30-59 mL/min: >1200 pg/mL or Age-adjusted values GFR <30 mL/min: do not use, not reliable Prognostic threshold: 1000 pg/mL HEPATIC FUNCTION PANEL - Abnormal; Notable for the following components: Albumin 3.1 3.8 - 5.0 g/dL All other components within normal limits PT INR - Abnormal; Notable for the following components: Prothrombin Time 16.2 11.6 - 15.2 seconds INR 1.3 0.8 - 1.2 All other components within normal limits Narrative: Warfarin Therapy INR: 2.0-3.0 conventional anticoagulation INR: 2.5-3.5 high intensity anticoagulation TROPONIN T, HIGH SENSITIVITY - Abnormal; Notable for the following components: Troponin T, High Sensitivity 51 <=22 ng/L All other components within normal limits CBC - Abnormal; Notable for the following components: HGB 9.8 14.0 - 16.8 g/dL HCT 31.4 40.0 - 48.4 % All other components within normal limits DIFFERENTIAL, AUTOMATED - Abnormal; Notable for the following components: Neutrophils % 91.6 40.0 - 75.0 % Lymphocytes % 2.5 18.0 - 42.0 % Absolute Neutrophils 8.75 1.80 - 7.70 K/uL Absolute Lymphocytes 0.24 1.00 - 4.80 K/ul All other components within normal limits RESPIRATORY PATHOGEN PANEL, PCR - Normal LACTATE WITH REFLEX IF ABNORMAL - Normal MAGNESIUM - Normal CBC WITH WBC DIFFERENTIAL Narrative: The following orders were created for panel order CBC WITH WBC DIFFERENTIAL. Procedure Abnormality Status --------- ------ CBC[[id number]] Abnormal Final result DIFFERENTIAL, AUTOMATED[[id number]] Abnormal Final result Please view results for these tests on the individual orders. CULTURE, BLOOD CULTURE, BLOOD URINALYSIS, REFLEX TO MICROSCOPIC PROCALCITONIN CULTURE, URINE, QUANTITATIVE Diet: No orders of the defined types were placed in this encounter. Additional Diet Information: Intake and Output: Intake/Output Summary (Last 24 hours) at 04/29/2023 1458 Last data filed at 04/29/2023 1332 Gross per 24 hour Intake 99.74 ml Output -- Net 99.74 ml Patient Belongings and Home Medications Patient Belongings at Bedside Belongings at Bedside: Clothing (04/29/23 1241) Clothing: Shirt;Footwear;Socks (04/29/23 1241) Patient Belongings Sent to Safe/Locker Belongings Sent to Safe: None (04/29/231240) Recommendations/Follow up Goals/Plan of Care: diuresis, monitor BNP Consults not completed: Anticipated tests/studies/procedures: Medication Reconcilliation completed for this Admission? Yes * ED Tube Station Attendant Note - Katie Broderick RN - 04/29/2023 12:35 PM EDT Pt here via ALS on CPAP for chief complaint SOB since Sunday. Reports he has been getting progressively worse. He reports temp 100.5F at home this AM. Pt has hx CA and has port to L chest for chemo. He has fistula to R wrist for HD which he has not yet started. +bruit, +thrill, with limb alert bracelet placed to RUE. Pt has tachypnea and occasionally grunting with expiration. Lungs clear and diminished upon auscultation to all lobes. Equal rise of chest bilaterally. Abd firm, rounded, and non-tender, with normoactive bowel sounds all quadrants. +5 strengths. +2RP and +2DP. +3 pitting edema RLE (he says this is baseline d/t hx surgery to RLE) and +2 pitting edema LLE. Pale. Febrile upon arrival. EMS reports he was cyanotic when they arrived to his house with SpO2 90s. Chronically on 4L/min viaNC. Arrives with 20G PIV L wrist. 2nd PIV access established per sepsis protocol. Pt on CCM and NiBP. EKG obtained. Medicated per eMAR prior to obtaining UA per Dr. Silvestre. Pt resting on stretcher with eyes closed and arouses easily to voice. Family at bedside and call armendariz within reach. 1415 Mild erythema noted proximal to IV connected to IV Vancomycin. He denies itching or pain to area. Pt aware that he should alert staff if area worsens or becomes uncomfortable. Dr. Silvestre aware.Medicated per eMAR. Pt resting on stretcher with eyes closed, arousing easily to voice. Aware of plan for admission. Education provided to daughter who verbalized understanding. She is leaving bedside at this time. documented in this encounter Plan of Treatment Upcoming Encounters Date Type Specialty Care Team Description 05/09/2023 Hem/Onc Treatment Hematology Oncology [facility], Chair3 Hem Onc [address] [phone] 05/10/2023 Office Visit Cardiology Elvira Deleon CRNP [address] [phone] Pending Results Name Type Priority Associated Diagnoses Date /Time CULTURE, BLOOD Lab STAT 04/29/2023 12:20 PM EDT CULTURE, BLOOD Lab STAT 04/29/2023 11:56 AM EDT STREPTOCOCCUS PNEUMONIAE ANTIGENS, URINE Lab Add-on 04/29/2023 3:27 PM EDT Scheduled Orders Name Type Priority Associated Diagnoses Orde r Schedule STREPTOCOCCUS PNEUMONIAE ANTIGENS, URINE Lab Add-on One Time for 1 Occurrences starting 04/29/2023 until 04/29/2023 BASIC METABOLIC PANEL Lab Routine Stage 3 chronic kidney disease, unspecified whether stage 3a or 3b CKD (HCC) Expected: 05/09/2023, Expires: 05/02/2024 Health Maintenance Due Date Last Done Comments [...] 10/02/2017, Additional history exists HbA1c 10/30/2023 04/29/2023, 06/2 05/2023, 10/03/2022, Additional history exists Albumin/Creatinine Ratio 04/11/2024 04/11/2023, 05/0 01/2022 O2 ASSESSMENT COMPLETED IN PAST YEAR FOR COPD 05/01/2024 05/02/2023 GFR 05/02/2024 05/02/2023, 04/08, 05/01/2023, Additional history exists GARDASIL-HPV IMMUNIZATION [...] Procedure Name Priority Date/Time Associated Diagnosis Comments BASIC METABOLIC PANEL Routine 05/02/2023 5:06 AM EDT CBC Routine 05/02/2023 5:06 AM EDT BASIC METABOLIC PANEL Routine 05/01/2023 5:51 PM EDT VANCOMYCIN RANDOM Timed 05/01/2023 5:2 9 AM EDT BASIC METABOLIC PANEL Routine 05/01/2023 5:29 AM EDT CBC Routine 05/01/2023 5:29 AM EDT BASIC METABOLIC PANEL Routine 04/30/2023 5:33 PM EDT BLOOD GAS, ARTERIAL Routine 04/30/2023 1 2:51 PM EDT MRSA SCREEN, PCR Routine 04/30/2023 12:2 1 PM EDT GLUCOSE METER, POINT OF CARE HORACIO 04/30/2023 11:[address] CHEST WO CONTRAST STAT 04/30/2023 11:39 AM EDT BLOOD GAS, ARTERIAL STAT 04/30/2023 1 1:14 AM EDT ECHO, COMPLETE (2D), TRANS-THORACIC Routine 04/30/2023 8:52 AM EDT Heart failure (HCC) GLUCOSE METER, POINT OF CARE HORACIO 04/30/2023 8:04 AM EDT BASIC METABOLIC PANEL Routine 04/30/2023 7:02 AM EDT CBC Routine 04/30/2023 7:02 AM EDT EXTRA LIGHT BLUE TOP Routine 04/30/2023 7:01 AM EDT EXTRA GOLD TOP Routine 04/30/2023 7:01 AM EDT EXTRA TUBES Routine 04/30/2023 7:01 AM EDT HC ECG TRACING ONLY STAT 04/30/2023 4 :14 AM EDT Chest pain EXTRA SYRINGE Routine 04/29/2023 5:28 PM EDT EXTRA LAVENDER TOP Routine 04/29/2023 5: 28 PM EDT EXTRA TUBES Routine 04/29/2023 5:28 PM EDT LACTATE STAT 04/29/2023 5:28 PM EDT CALCIUM, IONIZED STAT 04/29/2023 5:28 PM EDT MAGNESIUM STAT 04/29/2023 5:28 PM EDT BASIC METABOLIC PANEL Routine 04/29/2023 5:27 PM EDT BLOOD GAS, ARTERIAL Routine 04/29/2023 5 :05 PM EDT HC ECG TRACING ONLY STAT 04/29/2023 4 :38 PM EDT LEGIONELLA ANTIGEN, URINE Add-on 04/29/2023 3:27 PM EDT CULTURE, URINE, QUANTITATIVE Routine 04/29/2023 3:27 PM EDT MICROSCOPIC EXAM, URINE Routine 04/29/2023 3:27 PM EDT URINALYSIS, REFLEX TO MICROSCOPIC Routine 04/29/2023 3:27 PM EDT PT INR STAT 04/29/2023 12:20 PM EDT CULTURE, BLOOD STAT 04/29/2023 12:20 PM EDT ECG INTERPRET Routine 04/29/2023 12:02 PM EDT LACTATE WITH REFLEX IF ABNORMAL Routine 04/29/2023 11:56 AM EDT DIFFERENTIAL, AUTOMATED STAT 04/29/2023 11:56 AM EDT TROPONIN T, HIGH SENSITIVITY STAT 04/29/2023 11:56 AM EDT PROCALCITONIN Add-on 04/29/2023 11:56 AM EDT BLOOD GAS, ARTERIAL Routine 04/29/2023 1 1:56 AM EDT HEMOGLOBIN A1C Add-on 04/29/2023 11:56 AM EDT BNP (NT-PROBNP) STAT 04/29/2023 11:56 AM EDT HEPATIC FUNCTION PANEL STAT 11:56 AM EDT BASIC METABOLIC PANEL STAT 04/29/2023 11:56 AM EDT CBC WITH WBC DIFFERENTIAL STAT 04/29/2023 11:56 AM EDT CULTURE, BLOOD STAT 04/29/2023 11:56 AM EDT CBC STAT 04/29/2023 11:56 AM EDT MAGNESIUM STAT 04/29/2023 11:56 AM EDT XR CHEST 1 VIEW STAT 04/29/2023 11:55 AM EDT RESPIRATORY PATHOGEN PANEL, PCR STAT 04/29/2023 11:55 AM EDT HC ECG TRACING ONLY STAT 04/29/2023 1 1:45 AM EDT Chest pain documented in this encounter Results * (ABNORMAL) BASIC METABOLIC PANEL (05/02/2023 5:06 AM EDT) BUN 65(H) 6 - 20 mg/dL 05/02/2023 6:16 AM EDT LABORATORY [facility] Creatinine 3.6(H) 0.6 - 1.2 mg/dL 05/02/2023 6:16 AM EDT LAB[facility] Estimated Glomerular Filtration Rate 17(L) >=60 mL/min 05/02/2023 6:16 AM EDT [facility] Comment:eGFR is calculated b ased on the CKD-EPI 2020 equation Sodium 142 135 - 146 mmol/L 05/02/2023 6:16 AM EDT [facility] Potassium 4.1 3.5 - 5.1 mmol/L 05/02/2023 6:16 AM EDT [facility] Chloride 104 98 - 107 mmol/L 05/02/2023 6:16 AM EDT [facility] CO2 27 22 - 32 mmol/L 05/02/2023 6:16 AM EDT [facility] Anion Gap 11 7 - 15 mmol/L 05/02/2023 6:16 AM EDT LAB[facility] Glucose 99 70 - 120 mg/dL 05/02/2023 6:16 AM EDT LAB[facility] Calcium 9.1 8.4 - 10.2 mg/dL 05/02/2023 6:16 AM EDT LABORATORY [facility] Blood Venous blood specimen / Unknown Venipuncture / Unknown 05/02/2023 5:06 AM EDT 05/02/2023 5:51 AM EDT Maurice Andrews MD LAB BLOOD ORD ERABLES LABORATORY [address] [address] * (ABNORMAL) CBC (05/02/2023 5:06 AM EDT) Pathologist [facility] [place] WBC 7.21 4.00 - 10.80 K/uL 05/02/2023 5:54 AM EDT LABORATORY [facility] RBC 3.75 4.50 - 5.25 M/uL 05/02/2023 5:54 AM EDT LABORATORY [facility] HGB 10.7(L) 14.0 - 16.8 g/dL 05/02/2023 5:54 AM EDT LABORATORY [facility] HCT 33.9(L) 40.0 - 48.4 % 05/02/2023 5:54 AM EDT LABORATORY [facility] MCV 90.4 82.0 - 99.5 fL 05/02/2023 5:54 AM EDT LABORATORY [facility] MCH 28.5 27.0 - 34.0 pg 05/02/2023 5:54 AM EDT LABORATORY [facility] MCHC 31.6 32.0 - 36.0 g/dL 05/02/2023 5:54 AM EDT LABORATORY [facility] RDW 16.5 11.5 - 15.5 % 05/02/2023 5:54 AM EDT LABORATORY [facility] PLT 282 140 - 400 K/uL 05/02/2023 5:54 AM EDT LABORATORY [facility] MPV 10.0 6.6 - 11.1 fL 05/02/2023 5:54 AM EDT LABORATORY [facility] nRBCs 0 <=0 /100 WBCs 05/02/2023 5:54 AM EDT LABORATORY [facility] Blood Venous blood specimen / Unknown Venipuncture / Unknown 05/02/2023 5:06 AM EDT 05/02/2023 5:51 AM EDT Maurice Andrews MD LAB BLOOD ORD ERABLES LABORATORY [facility] [address] [place] [address] * (ABNORMAL) BASIC METABOLIC PANEL (05/01/2023 5:51 PM EDT) BUN 65(H) 6 - 20 mg/dL 05/01/2023 6:14 PM EDT LABORATORY [facility] Creatinine 3.5(H) 0.6 - 1.2 mg/dL 05/01/2023 6:14 PM EDT LAB[facility]ATORY [facility] Estimated Glomerular Filtration Rate 17(L) >=60 mL/min 05/01/2023 6:14 PM EDT LAB[facility] Comment:eGFR is calculated b ased on the CKD-EPI 2020 equation Sodium 142 135 - 146 mmol/L 05/01/2023 6:14 PM EDT LAB[facility] Potassium 4.1 3.5 - 5.1 mmol/L 05/01/2023 6:14 PM EDT [facility] Chloride 104 98 - 107 mmol/L 05/01/2023 6:14 PM EDT [facility] CO2 28 22 - 32 mmol/L 05/01/2023 6:14 PM EDT LAB[facility] Anion Gap 10 7 - 15 mmol/L 05/01/2023 6:14 PM EDT LAB[facility] Glucose 95 70 - 120 mg/dL 05/01/2023 6:14 PM EDT [facility] Calcium 9.2 8.4 - 10.2 mg/dL 05/01/2023 6:14 PM EDT [facility] Blood Venous blood specimen / Unknown Venipuncture / Unknown 05/01/2023 5:51 PM EDT 05/01/2023 5:58 PM EDT Maurice Andrews MD LAB BLOOD ORD ERABLES LABORATORY [address] [id number] * VANCOMYCIN RANDOM (05/01/2023 5:29 AM EDT) Vancomycin Random 31.1 10.0 - 40.0 ug/mL 05/01/2023 6:04 AM EDT LAB[facility] Blood Venous blood specimen / Unknown Venipuncture / Unknown 05/01/2023 5:29 AM EDT 05/01/2023 5:45 AM EDT Maurice Andrews MD LAB BLOOD ORD ERABLES LABORATORY [address] [address] * (ABNORMAL) BASIC METABOLIC PANEL (05/01/2023 5:29 AM EDT) BUN 64(H) 6 - 20 mg/dL 05/01/2023 6:04 AM EDT LAB[facility]ATORY [facility] Creatinine 3.6(H) 0.6 - 1.2 mg/dL 05/01/2023 6:04 AM EDT LAB[facility]ATORY [facility] Estimated Glomerular Filtration Rate 17(L) >=60 mL/min 05/01/2023 6:04 AM EDT LAB[facility] Comment:eGFR is calculated b ased on the CKD-EPI 2020 equation Sodium 141 135 - 146 mmol/L 05/01/2023 6:04 AM EDT LAB[facility] Potassium 4.2 3.5 - 5.1 mmol/L 05/01/2023 6:04 AM EDT LAB[facility] Chloride 106 98 - 107 mmol/L 05/01/2023 6:04 AM EDT [facility] CO2 25 22 - 32 mmol/L 05/01/2023 6:04 AM EDT [facility] Anion Gap 10 7 - 15 mmol/L 05/01/2023 6:04 AM EDT [facility] Glucose 103 70 - 120 mg/dL 05/01/2023 6:04 AM EDT LAB[facility] Calcium 8.6 8.4 - 10.2 mg/dL 05/01/2023 6:04 AM EDT [facility] Blood Venous blood specimen / Unknown Venipuncture / Unknown 05/01/2023 5:29 AM EDT 05/01/2023 5:45 AM EDT Maurice Andrews MD LAB BLOOD ORD ERABLES LABORATORY [address] [place] [address] * (ABNORMAL) CBC (05/01/2023 5:29 AM EDT) WBC 12.66(H) 4.00 - 10.80 K/uL 05/01/2023 5:51 AM EDT LABORATORY [facility] RBC 3.31 4.50 - 5.25 M/uL 05/01/2023 5:51 AM EDT LABORATORY [facility] HGB 8.9(L) 14.0 - 16.8 g/dL 05/01/2023 5:51 AM EDT LABORATORY [facility] HCT 29.8(L) 40.0 - 48.4 % 05/01/2023 5:51 AM EDT LABORATORY [facility] MCV 90.0 82.0 - 99.5 fL 05/01/2023 5:51 AM EDT LABORATORY [facility] MCH 26.9 27.0 - 34.0 pg 05/01/2023 5:51 AM EDT LABORATORY [facility] MCHC 29.9 32.0 - 36.0 g/dL 05/01/2023 5:51 AM EDT LABORATORY [facility] RDW 16.5 11.5 - 15.5 % 05/01/2023 5:51 AM EDT LABORATORY [facility] PLT 231 140 - 400 K/uL 05/01/2023 5:51 AM EDT LABORATORY [facility] MPV 9.6 6.6 - 11.1 fL 05/01/2023 5:51 AM EDT LABORATORY [facility] nRBCs 0 <=0 /100 WBCs 05/01/2023 5:51 AM EDT LABORATORY [facility] Blood Venous blood specimen / Unknown Venipuncture / Unknown 05/01/2023 5:29 AM EDT 05/01/2023 5:45 AM EDT Maurice Andrews MD LAB BLOOD ORD ERABLES LABORATORY [address] [place] [address] * (ABNORMAL) BASIC METABOLIC PANEL (04/30/2023 5:33 PM EDT) BUN 62(H) 6 - 20 mg/dL 04/30/2023 6:05 PM EDT LAB[facility]ORY [facility] Creatinine 3.5(H) 0.6 - 1.2 mg/dL 04/30/2023 6:05 PM EDT LAB[facility]ORY [facility] Estimated Glomerular Filtration Rate 17(L) >=60 mL/min 04/30/2023 6:05 PM EDT LAB[facility] Comment:eGFR is calculated b ased on the CKD-EPI 2020 equation Sodium 141 135 - 146 mmol/L 04/30/2023 6:05 PM EDT LAB[facility] Potassium 4.3 3.5 - 5.1 mmol/L 04/30/2023 6:05 PM EDT LAB[facility] Chloride 106 98 - 107 mmol/L 04/30/2023 6:05 PM EDT LAB[facility] CO2 24 22 - 32 mmol/L 04/30/2023 6:05 PM EDT LAB[facility] Anion Gap 11 7 - 15 mmol/L 04/30/2023 6:05 PM EDT LAB[facility] Glucose 153(H) 70 - 120 mg/dL 04/30/2023 6:05 PM EDT LAB[facility] Calcium 8.7 8.4 - 10.2 mg/dL 04/30/2023 6:05 PM EDT LABORATORY GL Blood Venous blood specimen / Unknown Venipuncture / Unknown 04/30/2023 5:33 PM EDT 04/30/2023 5:49 PM EDT Maurice Andrews MD LAB BLOOD ORD ERABLES LABORATORY [address] [place] [address] * (ABNORMAL) BLOOD GAS, ARTERIAL (04/30/2023 12:51 PM EDT) Temperature 37.0 C 04/30/2023 12:59 PM EDT LAB[facility]ATORY [facility] pH, Arterial 7.336(L) 7.350 - 7.450 units 04/30/2023 12:59 PM EDT LAB[facility] pCO2, Arterial 39.4 35.0 - 45.0 mmHg 04/30/2023 12:59 PM EDT LAB[facility] pO2, Arterial 93.1 75.0 - 100.0 mmHg 04/30/2023 12:59 PM EDT LAB[facility] Base Excess, Arterial -4.4(L) -2.0 - 2.0 mmol/L 04/30/2023 12:59 PM EDT LAB[facility] Hemoglobin, Whole Blood 9.0(L) 14.0 - 16.8 g/dL 04/30/2023 12:59 PM EDT LAB[facility] Oxyhemoglobin, Arterial 95.4 94.0 - 99.0 % total Hgb 04/30/2023 12:59 PM EDT LAB[facility] Carboxyhemoglob in, Whole Blood 1.5 <=1.5 % total Hgb 04/30/2023 12:59 PM EDT LAB[facility] Comment:Smokers: 0-9.0 % Methemoglobin, Whole Blood 0.5 <=1.5 % total Hgb 04/30/2023 12:59 PM EDT LAB[facility] Reduced Hemoglobin, Arterial 2.6 0.0 - 5.0 % total Hgb 04/30/2023 12:59 PM EDT LAB[facility] O2 Content, Arterial 12.2(L) 15.0 - 24.0 %vol 04/30/2023 12:59 PM EDT LAB[facility] FiO2 Not Provided % 04/30/2023 12:59 PM EDT LAB[facility] O2 Flow, Arterial 4 L/min 04/30/2023 12:59 PM EDT LAB[facility] Bicarbonate, Whole Blood 20.5(L) 23.0 - 31.0 mmol/L 04/30/2023 12:59 PM EDT LAB[facility] Blood Arterial blood specimen / Unknown Arterial Puncture / Unknown 04/30/2023 12:51 PM EDT 04/30/2023 12:55 PM EDT Ede Woodard MD LAB BLOOD ORDERABLES LABORATORY [facility] [address] [place] [address] * MRSA SCREEN, PCR (04/30/2023 12:21 PM EDT) MRSA PCR Result Negative Negative 8:28 PM EDT [facility]:No Methicillin resis tant Staphylococcus aureus detected by PCR (amplified probe). Upper Respiratory (Nares, Bilateral) Non-blood Collection / Unknown 04/30/2023 12:21 PM EDT 04/30/2023 12:25 PM EDT aMurice Andrews MD LAB MICRO - G ENERAL ORDERABLES [facility] [address] [place] [address] * GLUCOSE METER, POINT OF CARE (04/30/2023 11:50 AM EDT) [facility] Glucose Meter 114 70 - 120 mg/dL 04/30/2023 12:20 PM EDT [facility] Blood Whole blood specimen / Unknown 04/30/2023 11:50 AM EDT 04/30/2023 12:20 PM EDT Ede Woodard MD LAB POINT OF CARE TE ST DOCKED DEVICE UNSOLICITED RESULTS Performing Organization Address [facility] Co de Phone Number [facility] [address] [place] [address] * CT CHEST WO CONTRAST (04/30/2023 11:39 AM EDT) Anatomical Region Laterality Modality Chest, Body, Cardio Computed Issac ography 04/30/2023 11:3 4 AM EDT Impressions 04/30/2023 12:13 PM EDT IMPRESSION: Pulmonary nodules as described including a 10 mm spiculated nodule in the anterior aspect of the left upper lobe for which PET-CT is recommended to further assess based on Fleischner society guidelines. 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 Tiny bilateral pleural effusions. 4.7 cm calcified lesion in the right hepatic dome likely representing a granuloma. THIS DOCUMENT HAS BEEN ELECTRONICALLY SIGNED BY MD Yesica CÁRDENAS 04/30/2023 12:13 PM EDT PROCEDURE INFORMATION: Exam: CT Chest Without Contrast; Diagnostic Exam date and time: 04/30/2023 11:34 AM Age: 78 years old Clinical indication: Pain; Chest pressure; Additional info: Bilateral opacities resp failure TECHNIQUE: Imaging protocol: Diagnostic computed tomography of the chest without contrast. 3D rendering (Not supervised by radiologist): MIP and/or 3D reconstructed images were created by the technologist. Radiation optimization: All CT scans at this facility use at least one of these dose optimization techniques: automated exposure control; mA and/or kV adjustment per patient size (includes targeted exams where dose is matched to clinical indication); or iterative reconstruction. REPORTING DATA: Count of CT and Cardiac NM exams in prior 12 months: This patient has received 0 known CTs and 0 known cardiac nuclear medicine studies in the 12 months prior to the current study. COMPARISON: DX (CXR AP X-CARTWRIGHT GRID, CHEST, CXR AP GRID [facility]) 04/29/2023 11:46 AM FINDINGS: Tubes, catheters and devices: A Port-A-Cath is implanted in the subcutaneous tissues of the anterior left upper chest with the catheter tip in the proximal left brachiocephalic vein. Lungs: There is subpleural interstitial thickening which may be gravity dependent in the posterior aspect of the lower lobes. Subpleural interstitial thickening is noted along the upper convexities as well. Subpleural pulmonary nodules are noted including a 7 mm calcified granuloma in the anterior aspect of the left upper lobe on series 3, image 113 a 4.5 mm subpleural nodule along the left lower lobe convexity on series 3, image 153 4 mm nodule in the posterior aspect of the left lower lobe on series 3, image 156, a 3 mm subpleural nodule in the left lower lobe on series 3, image 163, 4-5 mm nodules in the right lower lobe on series 3, images 160, 162 and 170. In the anteromedial aspect of the left upper lobe there is a 9 x 10 mm spiculated subpleural nodule. Recommend PET-CT to further assess. Pleural spaces: There are tiny bilateral pleural effusions. Heart: Unremarkable. No cardiomegaly. No pericardial effusion. Coronary arteries: Coronary artery calcification is present. Lymph nodes: Unremarkable. No enlarged lymph nodes. Vasculature: Unremarkable. No aortic aneurysm. Liver: There is a calcified subcapsular mass of the left hepatic dome measuring 4.7 x 3.4 cm. Bones/joints: Degenerative changes are noted in the spine. Soft tissues: Unremarkable. Procedure Note Spike Brewster MD - 04/30/2023 PROCEDURE INFORMATION: Exam: CT Chest Without Contrast; Diagnostic Exam date and time: 04/30/2023 11:34 AM Age: 78 years old Clinical indication: Pain; Chest pressure; Additional info: Bilateralopacities resp failure TECHNIQUE: Imaging protocol: Diagnostic computed tomography of the chest withoutcontrast. 3D rendering (Not supervised by radiologist): MIP and/or 3D reconstructed images were created by the technologist. Radiation optimization: All CT scans at this facility use at least one ofthese dose optimization techniques: automated exposure control; mA and/or kV adjustment per patient size (includes targeted exams where dose is matchedto clinical indication); or iterative reconstruction. REPORTING DATA: Count of CT and Cardiac NM exams in prior 12 months: This patient hasreceived 0 known CTs and 0 known cardiac nuclear medicine studies in the 12 monthsprior to the current study. COMPARISON: DX (CXR AP X-CARTWRIGHT GRID, CHEST, CXR AP GRID [facility]) 04/29/2023 11:46 AM FINDINGS: Tubes, catheters and devices: A Port-A-Cath is implanted in thesubcutaneous tissues of the anterior left upper chest with the catheter tip in theproximal left brachiocephalic vein. Lungs: There is subpleural interstitial thickening which may be gravity dependent in the posterior aspect of the lower lobes. Subpleuralinterstitial thickening is noted along the upper convexities as well. Subpleuralpulmonary nodules are noted including a 7 mm calcified granuloma in the anterioraspect of the left upper lobe on series 3, image 113 a 4.5 mm subpleural nodulealong the left lower lobe convexity on series 3, image 153 4 mm nodule in the posterior aspect of the left lower lobe on series 3, image 156, a 3 mm subpleural nodule in the left lower lobe on series 3, image 163, 4-5 mmnodules in the right lower lobe on series 3, images 160, 162 and 170. In the anteromedial aspect of the left upper lobe there is a 9 x 10 mm spiculated subpleural nodule. Recommend PET-CT to further assess. Pleural spaces: There are tiny bilateral pleural effusions. Heart: Unremarkable. No cardiomegaly. No pericardial effusion. Coronary arteries: Coronary artery calcification is present. Lymph nodes: Unremarkable. No enlarged lymph nodes. Vasculature: Unremarkable. No aortic aneurysm. Liver: There is a calcified subcapsular mass of the left hepatic domemeasuring 4.7 x 3.4 cm. Bones/joints: Degenerative changes are noted in the spine. Soft tissues: Unremarkable. IMPRESSION IMPRESSION: Pulmonary nodules as described including a 10 mm spiculated nodule in the anterior aspect of the left upper lobe for which PET-CT is recommended to further assess based on Fleischner society guidelines. 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 Tiny bilateral pleural effusions. 4.7 cm calcified lesion in the right hepatic dome likely representing a granuloma. THIS DOCUMENT HAS BEEN ELECTRONICALLY SIGNED BY SPIKE BREWSTER MD Red Umaña PA-C RAD CT * (ABNORMAL) BLOOD GAS, ARTERIAL (04/30/2023 11:14 AM EDT) Temperature 37.0 C 04/30/2023 11:20 AM EDT LABORATORY [facility] pH, Arterial 7.468(H) 7.350 - 7.450 units 04/30/2023 11:20 AM EDT LAB[facility]ATORY [facility] pCO2, Arterial 26.0(L) 35.0 - 45.0 mmHg 04/30/2023 11:20 AM EDT LAB[facility]ORY [facility] pO2, Arterial 151.0(H) 75.0 - 100.0 mmHg 04/30/2023 11:20 AM EDT LAB[facility]ATORY [facility] Base Excess, Arterial -3.8(L) -2.0 - 2.0 mmol/L 04/30/2023 11:20 AM EDT LAB[facility]ATORY [facility] Hemoglobin, Whole Blood 9.2(L) 14.0 - 16.8 g/dL 04/30/2023 11:20 AM EDT LAB[facility]ATORY [facility] Oxyhemoglobin, Arterial 97.4 94.0 - 99.0 % total Hgb 04/30/2023 11:20 AM EDT LAB[facility]ATORY [facility] Carboxyhemoglob in, Whole Blood 1.8(H) <=1.5 % total Hgb 04/30/2023 11:20 AM EDT LAB[facility]ATORY [facility] Comment:Smokers: 0-9.0 % Methemoglobin, Whole Blood 0.5 <=1.5 % total Hgb 04/30/2023 11:20 AM EDT LAB[facility]ATORY [facility] Reduced Hemoglobin, Arterial 0.3 0.0 - 5.0 % total Hgb 04/30/2023 11:20 AM EDT LAB[facility]ATORY [facility] O2 Content, Arterial 12.9(L) 15.0 - 24.0 %vol 04/30/2023 11:20 AM EDT LAB[facility]ATORY [facility] FiO2 30% % 04/30/2023 11:20 AM EDT LAB[facility]ATORY [facility] Comment:avaps O2 Flow, Arterial Not Provided L/min 04/30/2023 11:20 AM EDT LAB[facility]ATORY [facility] Bicarbonate, Whole Blood 18.6(L) 23.0 - 31.0 mmol/L 04/30/2023 11:20 AM EDT LAB[facility]ATORY [facility] Blood Arterial blood specimen / Unknown Arterial Puncture / Unknown 04/30/2023 11:14 AM EDT 04/30/2023 11:17 AM EDT Ava Wang DO LAB BLOOD OR DERABLES LAB[facility]ATORY [facility] [address] [place] [address] * ECHO, COMPLETE (2D), TRANS-THORACIC (04/30/2023 8:52 AM EDT) Pathologist [facility] [place] LEFT VENTRICULAR EJECTION FRACTION 50 % [facility] 04/30/2023 8:17 AM EDT Maurice Andrews MD ECHOCARDIOLOG Y [facility] * (ABNORMAL) GLUCOSE METER, POINT OF CARE (04/30/2023 8:04 AM EDT) Glucose Meter 133(H) 70 - 120 mg/dL 04/30/2023 8:09 AM EDT [facility] Blood Whole blood specimen / Unknown 04/30/2023 8:04 AM EDT 04/30/2023 8:09 AM EDT Ede Woodard MD LAB POINT OF CARE TE ST DOCKED DEVICE UNSOLICITED RESULTS [facility] [address] [facility] [place] [address] * (ABNORMAL) BASIC METABOLIC PANEL (04/30/2023 7:02 AM EDT) BUN 55(H) 6 - 20 mg/dL 04/30/2023 8:07 AM EDT LABORATORY GL Creatinine 3.4(H) 0.6 - 1.2 mg/dL 04/30/2023 8:07 AM EDT LAB[facility]ATORY [facility] Estimated Glomerular Filtration Rate 18(L) >=60 mL/min 04/30/2023 8:07 AM EDT LAB[facility]ATORY [facility] Comment:eGFR is calculated b ased on the CKD-EPI 2020 equation Sodium 141 135 - 146 mmol/L 04/30/2023 8:07 AM EDT LABORATORY [facility] Potassium 4.6 3.5 - 5.1 mmol/L 04/30/2023 8:07 AM EDT LAB[facility]ATORY [facility] Chloride 107 98 - 107 mmol/L 04/30/2023 8:07 AM EDT LAB[facility]ORY [facility] CO2 22 22 - 32 mmol/L 04/30/2023 8:07 AM EDT LAB[facility]ATORY [facility] Anion Gap 12 7 - 15 mmol/L 04/30/2023 8:07 AM EDT LAB[facility]ATORY [facility] Glucose 160(H) 70 - 120 mg/dL 04/30/2023 8:07 AM EDT LAB[facility]ATORY [facility] Calcium 8.5 8.4 - 10.2 mg/dL 04/30/2023 8:07 AM EDT LABORATORY GL Blood Venous blood specimen / Unknown Venipuncture / Unknown 04/30/2023 7:02 AM EDT 04/30/2023 7:20 AM EDT Maurice Andrews MD LAB BLOOD ORD ERABLES LABORATORY [facility] [address] [place] [address] * (ABNORMAL) CBC (04/30/2023 7:02 AM EDT) WBC 14.28(H) 4.00 - 10.80 K/uL 04/30/2023 7:45 AM EDT LAB[facility]ATORY [facility] RBC 3.34 4.50 - 5.25 M/uL 04/30/2023 7:45 AM EDT LAB[facility]ATORY [facility] HGB 9.2(L) 14.0 - 16.8 g/dL 04/30/2023 7:45 AM EDT LAB[facility]ATORY [facility] HCT 30.8(L) 40.0 - 48.4 % 04/30/2023 7:45 AM EDT LAB[facility]ATORY [facility] MCV 92.2 82.0 - 99.5 fL 04/30/2023 7:45 AM EDT LAB[facility]ATORY [facility] MCH 27.5 27.0 - 34.0 pg 04/30/2023 7:45 AM EDT LABORATORY GL MCHC 29.9 32.0 - 36.0 g/dL 04/30/2023 7:45 AM EDT LABORATORY GL RDW 16.0 11.5 - 15.5 % 04/30/2023 7:45 AM EDT LABORATORY GL PLT 204 140 - 400 K/uL 04/30/2023 7:45 AM EDT LABORATORY [facility] MPV 10.1 6.6 - 11.1 fL 04/30/2023 7:45 AM EDT LABORATORY GL nRBCs 0 <=0 /100 WBCs 04/30/2023 7:45 AM EDT LABORATORY GL Blood Venous blood specimen / Unknown Venipuncture / Unknown 04/30/2023 7:02 AM EDT 04/30/2023 7:20 AM EDT Maurice Andrews MD LAB BLOOD ORD ERABLES Performing Organization Address City/[facility]/ZIP Co de Phone Number LABORATORY [address] [phone] * EXTRA GOLD TOP (04/30/2023 7:01 AM EDT) Blood Venous blood specimen / Unknown Venipuncture / Unknown 04/30/2023 7:01 AM EDT 04/30/2023 7:21 AM EDT Ede Woodard MD LAB BLOOD ORDERABLES LABORATORY [address] [address] * EXTRA LIGHT BLUE TOP (04/30/2023 7:01 AM EDT) Blood Venous blood specimen / Unknown Venipuncture / Unknown 04/30/2023 7:01 AM EDT 04/30/2023 7:21 AM EDT Ede Woodard MD LAB BLOOD ORDERABLES Performing Organization Address [facility] de Phone Number LABORATORY [address] [address] * EKG (04/30/2023 4:14 AM EDT) 04/30/2023 4:14 AM EDT Procedure Note Jesse Ernandez, DO - 04/30/2023 4:14 AM EDT REASON FOR STUDY: low HR CONCLUSIONS: Marked sinus bradycardia with 1st degree AV block with Prematuresupraventricular complexes Abnormal ECG When compared with ECG of 29-APR-2023 16:38, Sinus rhythm has replaced Atrial fibrillation Vent. rate has decreased BY 53 BPM Ventricular Rate: 43 Atrial Rate: 43 MT Interval: 240 QRS Duration: 106 QT/QTc: 520/439 ms P-R-T [place]: 46 : 16 : 54 degrees Maurice Andrews MD EKG Performing Organization Address [facility] de Phone Number [facility] * EXTRA SYRINGE (04/29/2023 5:28 PM EDT) Blood Blood specimen / Unknown Venipuncture / Unknown 04/29/2023 5:28 PM EDT 04/29/2023 5:35 PM EDT Maurice Andrews MD LAB BLOOD ORD ERABLES Performing Organization Address [facility] Co de Phone Number LABORATORY [address] [address] * EXTRA LAVENDER TOP (04/29/2023 5:28 PM EDT) Blood Venous blood specimen / Unknown Venipuncture / Unknown 04/29/2023 5:28 PM EDT 04/29/2023 5:35 PM EDT Maurice Andrews MD LAB BLOOD ORD ERABLES Performing Organization Address City/[facility]/ZIP Co de Phone Number LABORATORY [address] [address] * LACTATE (04/29/2023 5:28 PM EDT) Lactate 0.8 0.4 - 2.0 mmol/L 04/29/2023 5:50 PM EDT LABORATORY [facility] Blood Venous blood specimen / Unknown Venipuncture / Unknown 04/29/2023 5:28 PM EDT 04/29/2023 5:32 PM EDT Orville Long MD LAB BLOOD ORDERABLES Performing Organization Address [facility] de Phone Number LABORATORY [address] [address] * CALCIUM, IONIZED (04/29/2023 5:28 PM EDT) Calcium, Ionized 1.23 1.13 - 1.32 mmol/L 04/29/2023 6:24 PM EDT LABORATORY [facility] Comment:This test was develo ped and its performance characteristics dtermined by [employer]. It has not been cleared or approved by the [place] Food and Drug Administration Blood Venous blood specimen / Unknown Venipuncture / Unknown 04/29/2023 5:28 PM EDT 04/29/2023 5:32 PM EDT Orville Long MD LAB BLOOD ORDERABLES Performing Organization Address City/[facility] Co de Phone Number LABORATORY [address] [address] * MAGNESIUM (04/29/2023 5:28 PM EDT) Magnesium 2.1 1.5 - 2.6 mg/dL 04/29/2023 5:47 PM EDT LABORATORY [facility] Blood Venous blood specimen / Unknown Venipuncture / Unknown 04/29/2023 5:28 PM EDT 04/29/2023 5:32 PM EDT Orville Long MD LAB BLOOD ORDERABLES Performing Organization Address City/[facility]/ZIP Co de Phone Number LABORATORY [address] [address] * (ABNORMAL) BASIC METABOLIC PANEL (04/29/2023 5:27 PM EDT) BUN 46(H) 6 - 20 mg/dL 04/29/2023 5:52 PM EDT LABORATORY [facility] Creatinine 3.1(H) 0.6 - 1.2 mg/dL 04/29/2023 5:52 PM EDT LAB[facility]ATORY [facility] Estimated Glomerular Filtration Rate 20(L) >=60 mL/min 04/29/2023 5:52 PM EDT LAB[facility]ATORY [facility] Comment:eGFR is calculated b ased on the CKD-EPI 2020 equation Sodium 137 135 - 146 mmol/L 04/29/2023 5:52 PM EDT LAB[facility]ATORY [facility] Potassium 4.9 3.5 - 5.1 mmol/L 04/29/2023 5:52 PM EDT LAB[facility]ATORY [facility] Chloride 106 98 - 107 mmol/L 04/29/2023 5:52 PM EDT LAB[facility]ATORY [facility] CO2 19(L) 22 - 32 mmol/L 04/29/2023 5:52 PM EDT LAB[facility]ATORY [facility] Anion Gap 12 7 - 15 mmol/L 04/29/2023 5:52 PM EDT LAB[facility]ATORY [facility] Glucose 175(H) 70 - 120 mg/dL 04/29/2023 5:52 PM EDT LAB[facility]ATORY [facility] Calcium 8.5 8.4 - 10.2 mg/dL 04/29/2023 5:52 PM EDT LAB[facility]ATORY [facility] Blood Venous blood specimen / Unknown Venipuncture / Unknown 04/29/2023 5:27 PM EDT 04/29/2023 5:32 PM EDT Maurice Andrews MD LAB BLOOD ORD ERABLES LABORATORY [address] [address] * (ABNORMAL) BLOOD GAS, ARTERIAL (04/29/2023 5:05 PM EDT) Temperature 37.0 C 04/29/2023 5:10 PM EDT LAB[facility]ATORY [facility] pH, Arterial 7.255(L) 7.350 - 7.450 units 04/29/2023 5:10 PM EDT LAB[facility]ATORY [facility] pCO2, Arterial 46.4(H) 35.0 - 45.0 mmHg 04/29/2023 5:10 PM EDT LAB[facility]ORY [facility] pO2, Arterial 124.0(H) 75.0 - 100.0 mmHg 04/29/2023 5:10 PM EDT LAB[facility]ATORY [facility] Base Excess, Arterial -6.5(L) -2.0 - 2.0 mmol/L 04/29/2023 5:10 PM EDT LAB[facility]ATORY [facility] Hemoglobin, Whole Blood 9.7(L) 14.0 - 16.8 g/dL 04/29/2023 5:10 PM EDT LAB[facility]ATORY [facility] Oxyhemoglobin, Arterial 96.0 94.0 - 99.0 % total Hgb 04/29/2023 5:10 PM EDT LAB[facility]ATORY [facility] Carboxyhemoglob in, Whole Blood 1.6(H) <=1.5 % total Hgb 04/29/2023 5:10 PM EDT LAB[facility]ATORY [facility] Comment:Smokers: 0-9.0 % Methemoglobin, Whole Blood 0.6 <=1.5 % total Hgb 04/29/2023 5:10 PM EDT LAB[facility]ATORY [facility] Reduced Hemoglobin, Arterial 1.8 0.0 - 5.0 % total Hgb 04/29/2023 5:10 PM EDT LAB[facility]ATORY [facility] O2 Content, Arterial 13.3(L) 15.0 - 24.0 %vol 04/29/2023 5:10 PM EDT LABORATORY [facility] FiO2 30 % 04/29/2023 5:10 PM EDT LAB[facility]ATORY [facility] Comment:147 bipap O2 Flow, Arterial Not Provided L/min 04/29/2023 5:10 PM EDT LABORATORY [facility] Bicarbonate, Whole Blood 19.9(L) 23.0 - 31.0 mmol/L 04/29/2023 5:10 PM EDT LAB[facility]ATORY [facility] Blood Arterial blood specimen / Unknown Arterial Puncture / Unknown 04/29/2023 5:05 PM EDT 04/29/2023 5:05 PM EDT Maurice Andrews MD LAB BLOOD ORD ERABLES LABORATORY [facility] [address] [place] [address] * EKG (04/29/2023 4:38 PM EDT) 04/29/2023 4:38 PM EDT Procedure Note Jesse Pinzon Awais, DO - 04/29/2023 4:38 PM EDT REASON FOR STUDY: afib CONCLUSIONS: Atrial fibrillation Nonspecific ST and T wave abnormality Left ventricular hypertrophy Abnormal ECG When compared with ECG of 29-APR-2023 11:45, Atrial fibrillation has replaced Normal sinus rhythm Ventricular Rate: 96 QRS Duration: 98 QT/QTc: 398/502 ms P-R-T [place]: 0 : 8 : 131 degrees Thalia Silvestre MD EKG Performing Organization Address City/[facility] Co de Phone Number [facility] * LEGIONELLA ANTIGEN, URINE (04/29/2023 3:27 PM EDT) Pathologist [facility] [place] Legionella Antigen, Urine Negative Negative 05/01/2023 11:43 AM EDT [facility] Comment:Presumptive negative for L. pneumophila serogroup 1 antigens. A negative result does not rule out the possibility of Legionella infection due to other serogroups or species of Legionella. Urine Urine specimen obtained by clean catch procedure / Unknown Non-blood Collection / Unknown 04/29/2023 3:27 PM EDT 04/29/2023 3:32 PM EDT Maurice Andrews MD LAB URINE ORD ERABLES [facility] [address] [place] [address] * (ABNORMAL) MICROSCOPIC EXAM, URINE (04/29/2023 3:27 PM EDT) RBC, Urine 50+(A) 0 - 2 /HPF 04/29/2023 3:42 PM EDT LABORATORY [facility] WBC, Urine 50+(A) 0 - 2 /HPF 04/29/2023 3:42 PM EDT LABORATORY [facility] Bacteria, Urine >200(A) 0 - 25 /HPF 04/29/2023 3:42 PM EDT LABORATORY [facility] Urine Urine specimen obtained by clean catch procedure / Unknown Non-blood Collection / Unknown 04/29/2023 3:27 PM EDT 04/29/2023 3:32 PM EDT Thalia Silvestre MD LAB URINE ORDERAB LES LABORATORY [address] [phone] * CULTURE, URINE, QUANTITATIVE (04/29/2023 3:27 PM EDT) Culture Growth No significant growth 04/30/2023 5:05 PM EDT [facility] Urine Urine specimen obtained by clean catch procedure / Unknown Non-blood Collection / Unknown 04/29/2023 3:27 PM EDT 04/29/2023 3:32 PM EDT Maurice Andrews MD LAB MICRO - G ENERAL ORDERABLES [facility] [address] [place] [address] * (ABNORMAL) URINALYSIS, REFLEX TO MICROSCOPIC (04/29/2023 3:27 PM EDT) Color, Urine Brown(A) Light Yellow, Yellow, Dark Yellow 04/29/2023 3:37 PM EDT LABORATORY [facility] Clarity, Urine Slightly Cloudy(A) Clear 04/29/2023 3:37 PM EDT LABORATORY [facility] Glucose, Urine Negative Negative mg/dL 04/29/2023 3:37 PM EDT LABORATORY [facility] Bilirubin, Urine Negative Negative 04/29/2023 3:37 PM EDT LABORATORY [facility] Ketone, Urine Negative Negative mg/dL 04/29/2023 3:37 PM EDT LABORATORY GL Specific [place], Urine 1.008 1.003 - 1.030 04/29/2023 3:37 PM EDT LABORATORY GL Blood, Urine Large(A) Negative 04/29/2023 3:37 PM EDT LABORATORY GL pH, Urine 5.5 5.0 - 7.5 Units 04/29/2023 3:37 PM EDT LABORATORY GL Protein, Urine 100(A) Negative mg/dL 04/29/2023 3:37 PM EDT LABORATORY GL Urobilinogen, Urine 0.2 0.2, 1.0 mg/dL 04/29/2023 3:37 PM EDT LABORATORY GL Nitrite, Urine Negative Negative 04/29/2023 3:37 PM EDT LABORATORY GL Esterase, Urine Large(A) Negative 04/29/2023 3:37 PM EDT LABORATORY GL Urine Urine specimen obtained by clean catch procedure / Unknown Non-blood Collection / Unknown 04/29/2023 3:27 PM EDT 04/29/2023 3:32 PM EDT Thalia Silvestre MD LAB URINE ORDERAB LES Performing Organization Address City/State/[facility] Co de Phone Number LABORATORY [address] [address] * (ABNORMAL) PT INR (04/29/2023 12:20 PM EDT) Prothrombin Time 16.2(H) 11.6 - 15.2 seconds 04/29/2023 12:41 PM EDT LABORATORY [facility] INR 1.3(H) 0.8 - 1.2 04/29/2023 12:41 PM EDT LABORATORY [facility] Blood Venous blood specimen / Unknown Venipuncture / Unknown 04/29/2023 12:20 PM EDT 04/29/2023 12:24 PM EDT [facility] LABORATORY GL - 04/29/2023 12:41 PM EDT Warfarin Therapy INR: 2.0-3.0 conventional anticoagulation INR: 2.5-3.5 high intensity anticoagulation Thalia Silvestre MD LAB BLOOD ORDERAB LES LABORATORY [facility] [address] [place] [address] * ECG Interpret (04/29/2023 12:02 PM EDT) Thalia Wick MD - 04/29/2023 12:02 PM EDT Thalia Silvestre MD 04/30/2023 12:39 AM ECG Interpret Date/Time: 04/29/2023 12:02 PM Performed by: Thalia Silvestre MD Authorized by: Thalia Silvestre MD Previous ECG: Previous ECG: Compared to current Comments: Done at 11:45 shows baseline artifact. Appears to be normal sinus rhythm with frequent PVCs, rate 97. Normal axis. Inferior infarct. T inversions laterally. Nonspecific ST-T changes lateral precordial leads. Compared to prior EKG of 04/12/2019 done at 07:43, occasional premature supraventricular complexes are not currently evident. Frequent PVCs are not evident. T inversions laterally and nonspecific ST-T changes in the lateral precordial leads are new Thalia Silvestre MD PROCEDURE REPORT * (ABNORMAL) HEMOGLOBIN A1C (04/29/2023 11:56 AM EDT) Hemoglobin A1C 5.7(H) 4.0 - 5.6 % 04/29/2023 9:56 PM EDT [facility] Comment:The use of HbA1c to monitor glycemic status is based on normal hemoglobin and HbA composition. This test should not be used in patients with abnormal hemoglobin that affects the half life of the red blood cell or the in vivo glycation rates. Estimated Average Glucose 117 <126 mg/dL 04/29/2023 9:56 PM EDT [facility] Blood Venous blood specimen / Unknown Venipuncture / Unknown 04/29/2023 11:56 AM EDT 04/29/2023 12:02 PM EDT Maurice Andrews MD LAB BLOOD ORD ERABLES [facility] [address] [facility] [place] [address] * (ABNORMAL) PROCALCITONIN (04/29/2023 11:56 AM EDT) Procalcitonin 0.75(H) <0.10 ng/mL 04/29/2023 3:22 PM EDT LABORATORY [facility] Blood Venous blood specimen / Unknown Venipuncture / Unknown 04/29/2023 11:56 AM EDT 04/29/2023 12:02 PM EDT [facility] LABORATORY [facility] - 04/29/2023 3:22 PM EDT Less than 0.5 ng/mL: Low risk for progression to sepsis. Review patients condition for localized infections. 0.5 to 2.0 ng/mL: Intermediate risk for progresion to sepsis. Review underlying conditions. Recommend repeat PCT after 6 hours has elapsed. Greater than 2.0 ng/mL: high risk for progression to sepsis unless other causes are known. Maurice Andrews MD LAB BLOOD ORD ERABLES LABORATORY [address] [address] * (ABNORMAL) DIFFERENTIAL, AUTOMATED (04/29/2023 11:56 AM EDT) Pathologist [facility] [place] WBC 9.56 4.00 - 10.80 K/uL 04/29/2023 12:04 PM EDT LABORATORY [facility] Neutrophils % 91.6(H) 40.0 - 75.0 % 04/29/2023 12:04 PM EDT LABORATORY [facility] Lymphocytes % 2.5(L) 18.0 - 42.0 % 04/29/2023 12:04 PM EDT LABORATORY [facility] Monocytes % 4.6 1.0 - 11.0 % 04/29/2023 12:04 PM EDT LABORATORY [facility] Eosinophils % 0.6 0.0 - 6.0 % 04/29/2023 12:04 PM EDT LABORATORY [facility] Basophils % 0.3 0.0 - 2.0 % 04/29/2023 12:04 PM EDT LABORATORY [facility] Immature Granulocytes % 0.4 0.0 - 2.0 % 04/29/2023 12:04 PM EDT LABORATORY [facility] Absolute Neutrophils 8.75(H) 1.80 - 7.70 K/uL 04/29/2023 12:04 PM EDT LABORATORY [facility] Absolute Lymphocytes 0.24(L) 1.00 - 4.80 K/ul 04/29/2023 12:04 PM EDT LABORATORY [facility] Absolute Monocytes 0.44 0.00 - 1.10 K/uL 04/29/2023 12:04 PM EDT LABORATORY [facility] Absolute Eosinophils 0.06 0.00 - 0.70 K/uL 04/29/2023 12:04 PM EDT LABORATORY [facility] Absolute Basophils 0.03 0.00 - 0.20 K/uL 04/29/2023 12:04 PM EDT LABORATORY [facility] Absolute Immature Granulocytes 0.04 0.00 - 0.20 K/uL 04/29/2023 12:04 PM EDT LABORATORY [facility] Blood Venous blood specimen / Unknown Venipuncture / Unknown 04/29/2023 11:56 AM EDT 04/29/2023 12:02 PM EDT Thalia Silvestre MD LAB BLOOD ORDERAB LES LABORATORY [address] [address] * (ABNORMAL) CBC (04/29/2023 11:56 AM EDT) WBC 9.56 4.00 - 10.80 K/uL 04/29/2023 12:04 PM EDT LABORATORY [facility] RBC 3.46 4.50 - 5.25 M/uL 04/29/2023 12:04 PM EDT LABORATORY [facility] HGB 9.8(L) 14.0 - 16.8 g/dL 04/29/2023 12:04 PM EDT LABORATORY [facility] HCT 31.4(L) 40.0 - 48.4 % 04/29/2023 12:04 PM EDT LABORATORY [facility] MCV 90.8 82.0 - 99.5 fL 04/29/2023 12:04 PM EDT [facility] MCH 28.3 27.0 - 34.0 pg 04/29/2023 12:04 PM EDT [facility] MCHC 31.2 32.0 - 36.0 g/dL 04/29/2023 12:04 PM EDT [facility] RDW 16.3 11.5 - 15.5 % 04/29/2023 12:04 PM EDT [facility] PLT 241 140 - 400 K/uL 04/29/2023 12:04 PM EDT [facility] MPV 9.3 6.6 - 11.1 fL 04/29/2023 12:04 PM EDT [facility] nRBCs 0 <=0 /100 WBCs 04/29/2023 12:04 PM EDT [facility] Blood Venous blood specimen / Unknown Venipuncture / Unknown 04/29/2023 11:56 AM EDT 04/29/2023 12:02 PM EDT Thalia Silvestre MD LAB BLOOD [facility] [address] [address] [id number] * (ABNORMAL) TROPONIN T, HIGH SENSITIVITY (04/29/2023 11:56 AM EDT) Troponin T, High Sensitivity 51(H) <=22 ng/L 04/29/2023 12:23 PM EDT LABORATORY [facility] Blood Venous blood specimen / Unknown Venipuncture / Unknown 04/29/2023 11:56 AM EDT 04/29/2023 12:02 PM EDT Thalia Silvestre MD LAB BLOOD ORDERAB LES LABORATORY [address] [address] * MAGNESIUM (04/29/2023 11:56 AM EDT) Magnesium 1.9 1.5 - 2.6 mg/dL 04/29/2023 12:31 PM EDT LABORATORY [facility] Blood Venous blood specimen / Unknown Venipuncture / Unknown 04/29/2023 11:56 AM EDT 04/29/2023 12:02 PM EDT Thalia Silvestre MD LAB BLOOD ORDERAB LES LABORATORY [address] [id number] * LACTATE WITH REFLEX IF ABNORMAL (04/29/2023 11:56 AM EDT) Lactate 1.4 0.4 - 2.0 mmol/L 04/29/2023 12:20 PM EDT LABORATORY [facility] Blood Venous blood specimen / Unknown Venipuncture / Unknown 04/29/2023 11:56 AM EDT 04/29/2023 12:02 PM EDT Thalia Silvestre MD LAB BLOOD ORDERAB LES Performing Organization Address City/[facility] Co de Phone Number LABORATORY [address] [address] * (ABNORMAL) HEPATIC FUNCTION PANEL (04/29/2023 11:56 AM EDT) Albumin 3.1(L) 3.8 - 5.0 g/dL 04/29/2023 12:31 PM EDT LABORATORY [facility] AST 11 10 - 50 U/L 04/29/2023 12:31 PM EDT LABORATORY [facility] Alkaline Phosphatase 54 35 - 130 U/L 04/29/2023 12:31 PM EDT LABORATORY [facility] ALT 11 10 - 50 U/L 04/29/2023 12:31 PM EDT LABORATORY [facility] Bilirubin, Total 0.5 <=1.2 mg/dL 04/29/2023 12:31 PM EDT LABORATORY [facility] Bilirubin, Direct <0.2 0.0 - 0.3 mg/dL 04/29/2023 12:31 PM EDT LABORATORY [facility] Protein 6.3 6.0 - 8.3 g/dL 04/29/2023 12:31 PM EDT LABORATORY [facility] Blood Venous blood specimen / Unknown Venipuncture / Unknown 04/29/2023 11:56 AM EDT 04/29/2023 12:02 PM EDT Thalia Silvestre MD LAB BLOOD ORDERAB LES Performing Organization Address City/[facility] Co de Phone Number LABORATORY [facility] [address] [place], [place] [id number] * (ABNORMAL) BNP, NT-PRO (04/29/2023 11:56 AM EDT) BNP, NT-Pro 10,734(H) <300 pg/mL 04/29/2023 12:31 PM EDT LABORATORY [facility] Blood Venous blood specimen / Unknown Venipuncture / Unknown 04/29/2023 11:56 AM EDT 04/29/2023 12:02 PM EDT Narrative LABORATORY [facility] - 04/29/2023 12:31 PM EDT Exclude Heart Failure: <300 pg/mL Diagnose Heart Failure: Age <50 yr: >450 pg/mL 50-75 yr: >900 pg/mL >75 yr: >1800 pg/mL GFR is 30-59 mL/min: >1200 pg/mL or Age-adjusted values GFR <30 mL/min: do not use, not reliable Prognostic threshold: 1000 pg/mL Thalia Silvestre MD LAB BLOOD ORDERAB LES Performing Organization Address [facility] Co de Phone Number LABORATORY [address] [address] * (ABNORMAL) BASIC METABOLIC PANEL (04/29/2023 11:56 AM EDT) BUN 46(H) 6 - 20 mg/dL 04/29/2023 12:31 PM EDT LABORATORY GL Creatinine 2.9(H) 0.6 - 1.2 mg/dL 04/29/2023 12:31 PM EDT LABORATORY GL Estimated Glomerular Filtration Rate 21(L) >=60 mL/min 04/29/2023 12:31 PM EDT LABORATORY GL Comment:eGFR is calculated b ased on the CKD-EPI 2020 equation Sodium 135 135 - 146 mmol/L 04/29/2023 12:31 PM EDT LABORATORY [facility] Potassium 5.2(H) 3.5 - 5.1 mmol/L 04/29/2023 12:31 PM EDT LABORATORY [facility] Chloride 105 98 - 107 mmol/L 04/29/2023 12:31 PM EDT LABORATORY [facility] CO2 19(L) 22 - 32 mmol/L 04/29/2023 12:31 PM EDT LABORATORY [facility] Anion Gap 11 7 - 15 mmol/L 04/29/2023 12:31 PM EDT LABORATORY [facility] Glucose 163(H) 70 - 120 mg/dL 04/29/2023 12:31 PM EDT LABORATORY [facility] Calcium 8.6 8.4 - 10.2 mg/dL 04/29/2023 12:31 PM EDT LABORATORY [facility] Blood Venous blood specimen / Unknown Venipuncture / Unknown 04/29/2023 11:56 AM EDT 04/29/2023 12:02 PM EDT Thalia Silvestre MD LAB BLOOD ORDERAB LES LABORATORY [facility] [address] [place] [address] * (ABNORMAL) BLOOD GAS, ARTERIAL (04/29/2023 11:56 AM EDT) Temperature 37.0 C 04/29/2023 12:03 PM EDT LABORATORY [facility] pH, Arterial 7.431 7.350 - 7.450 units 04/29/2023 12:03 PM EDT LABORATORY [facility] pCO2, Arterial 28.3(L) 35.0 - 45.0 mmHg 04/29/2023 12:03 PM EDT LABORATORY [facility] pO2, Arterial 90.6 75.0 - 100.0 mmHg 04/29/2023 12:03 PM EDT LABORATORY [facility] Base Excess, Arterial -4.6(L) -2.0 - 2.0 mmol/L 04/29/2023 12:03 PM EDT LABORATORY [facility] Hemoglobin, Whole Blood 9.3(L) 14.0 - 16.8 g/dL 04/29/2023 12:03 PM EDT LABORATORY [facility] Oxyhemoglobin, Arterial 95.3 94.0 - 99.0 % total Hgb 04/29/2023 12:03 PM EDT LABORATORY [facility] Carboxyhemoglob in, Whole Blood 1.8(H) <=1.5 % total Hgb 04/29/2023 12:03 PM EDT LABORATORY [facility] Comment:Smokers: 0-9.0 % Methemoglobin, Whole Blood 0.6 <=1.5 % total Hgb 04/29/2023 12:03 PM EDT LABORATORY [facility] Reduced Hemoglobin, Arterial 2.3 0.0 - 5.0 % total Hgb 04/29/2023 12:03 PM EDT LABORATORY [facility] O2 Content, Arterial 12.5(L) 15.0 - 24.0 %vol 04/29/2023 12:03 PM EDT LABORATORY [facility] FiO2 35 % 04/29/2023 12:03 PM EDT LABORATORY [facility] Comment:20/04 bipap O2 Flow, Arterial Not Provided L/min 04/29/2023 12:03 PM EDT LABORATORY [facility] Bicarbonate, Whole Blood 18.5(L) 23.0 - 31.0 mmol/L 04/29/2023 12:03 PM EDT LABORATORY [facility] Blood Arterial blood specimen / Unknown Arterial Puncture / Unknown 04/29/2023 11:56 AM EDT 04/29/2023 11:59 AM EDT Thalia Silvestre MD LAB BLOOD ORDERAB LES Performing Organization Address City/State/[facility] Co de Phone Number LABORATORY [facility] [address] [place] [address] * XR CHEST 1 VIEW (04/29/2023 11:55 AM EDT) Anatomical Region Laterality Modality Chest Digital Radiogra phy 04/29/2023 11:4 6 AM EDT Impressions 04/29/2023 12:04 PM EDT IMPRESSION: Increased bilateral interstitial infiltrates or edema. THIS DOCUMENT HAS BEEN ELECTRONICALLY SIGNED BY VIDAL ESTES MD Narrative 04/29/2023 12:04 PM EDT PROCEDURE INFORMATION: Exam: XR Chest Exam date and time: 04/29/2023 11:46 AM Age: 78 years old Clinical indication: Other: Resp distress; Additional info: Shortness of breath TECHNIQUE: Imaging protocol: Radiologic exam of the chest. Views: 1 view. COMPARISON: DX XR CHEST 2 VIEWS 07/14/2023 10:46 FINDINGS: Tubes, catheters and devices: Left IJ [id number]. Catheter tip just above the aortic arch unchanged. Lungs: Lungs show slightly increased prominence of interstitial markings bilaterally compared to previous exam. No focal airspace consolidation. Pleural spaces: Unremarkable. No pleural effusion. No pneumothorax. Heart/Mediastinum: Cardiomediastinal silhouette is normal. Bones/joints: Unremarkable. Procedure Note Vidal Estes MD - 04/29/2023 PROCEDURE INFORMATION: Exam: XR Chest Exam date and time: 04/29/2023 11:46 AM Age: 78 years old Clinical indication: Other: Resp distress; Additional info: Shortness ofbreath TECHNIQUE: Imaging protocol: Radiologic exam of the chest. Views: 1 view. COMPARISON: DX XR CHEST 2 VIEWS 07/14/2023 10:46 FINDINGS: Tubes, catheters and devices: Left IJ [id number]. Catheter tip justabove the aortic arch unchanged. Lungs: Lungs show slightly increased prominence of interstitial markings bilaterally compared to previous exam. No focal airspace consolidation. Pleural spaces: Unremarkable. No pleural effusion. No pneumothorax. Heart/Mediastinum: Cardiomediastinal silhouette is normal. Bones/joints: Unremarkable. IMPRESSION IMPRESSION: Increased bilateral interstitial infiltrates or edema. THIS DOCUMENT HAS BEEN ELECTRONICALLY SIGNED BY VIDAL ESTES MD Thalia Silvestre MD RADIOLOGY (RAD GE NERAL) * RESPIRATORY PATHOGEN PANEL, PCR (04/29/2023 11:55 AM EDT) Adenovirus by PCR Negative Negative 023 12:53 PM EDT LABORATORY [facility] Coronavirus 229E by PCR Negative Negative 04/29/2023 12:53 PM EDT LABORATORY [facility] Coronavirus HKU1 by PCR Negative Negative 04/29/2023 12:53 PM EDT LABORATORY [facility] Coronavirus NL63 by PCR Negative Negative 04/29/2023 12:53 PM EDT LABORATORY [facility] Coronavirus OC43 by PCR Negative Negative 04/29/2023 12:53 PM EDT LABORATORY [facility] Coronavirus SARS-CoV-2 by PCR Negative Negative 04/29/2023 12:53 PM EDT LABORATORY [facility] Human Metapneumovirus by PCR Negative Negative 04/29/2023 12:53 PM EDT LABORATORY [facility] Rhinovirus/Enterovi abbi by PCR Negative Negative 04/29/2023 12:53 PM EDT LABORATORY [facility] Influenza A Virus by PCR Negative Negative 04/29/2023 12:53 PM EDT LABORATORY [facility] Influenza B Virus by PCR Negative Negative 04/29/2023 12:53 PM EDT LABORATORY [facility] Parainfluenza Virus 1 by PCR Negative Negative 04/29/2023 12:53 PM EDT LABORATORY [facility] Parainfluenza Virus 2 by PCR Negative Negative 04/29/2023 12:53 PM EDT LABORATORY [facility] Parainfluenza Virus 3 by PCR Negative Negative 04/29/2023 12:53 PM EDT LABORATORY [facility] Parainfluenza Virus 4 by PCR Negative Negative 04/29/2023 12:53 PM EDT LABORATORY [facility] Respiratory Syncytial Virus by PCR Negative Negative 04/29/2023 12:53 PM EDT LABORATORY [facility] Bordetella pertussis by PCR Negative Negative 04/29/2023 12:53 PM EDT LABORATORY [facility] Chlamydia pneumoniae by PCR Negative Negative 04/29/2023 12:53 PM EDT LABORATORY [facility] Mycoplasma pneumoniae by PCR Negative Negative 04/29/2023 12:53 PM EDT LABORATORY [facility] Bordetella parapertussis by PCR Negative Negative 04/29/2023 12:53 PM EDT LABORATORY [facility] Comment: The primers that detect Rhinovirus may cross react with some Enterorviruses. The validation of bronchial specimens, tracheal aspirates, and throats for this assay was developed and performance characteristics determined by [employer]. The validation of alternate specimen types has not been cleared or approved by the U.S. Food and Drug Administration (FDA). It has been determined that such clearance or approval is not necessary. Upper Respiratory Mid-turbinate nasal swab / Unknown Non-blood Collection / Unknown 04/29/2023 11:55 AM EDT 04/29/2023 12:03 PM EDT Thalia Silvestre MD LAB MICRO - GENER AL ORDERABLES LABORATORY [address] [address] * EKG (04/29/2023 11:45 AM EDT) 04/29/2023 11:4 5 AM EDT Procedure Note Jesse Pinzon Awais, DO - 04/29/2023 11:45 AM EDT REASON FOR STUDY: SOB CONCLUSIONS: Artifact Normal sinus rhythm Left ventricular hypertrophy Premature ventricular complexes ST & T wave abnormality, consider lateral ischemia Abnormal ECG When compared with ECG of 12-APR-2019 07:43, Lateral T-wave inversion is now present PVC's now present Ventricular Rate: 97 Atrial Rate: 98 QRS Duration: 82 QT/QTc: 316/401 ms P-R-T [place]: 0 : 10 : 153 degrees Maurice Andrews MD EKG [facility] documented in this encounter Visit Diagnoses Diagnosis Acute on chronic respiratory failure with hypoxia (HCC)- Primary Acute on chronic respiratory failure with hypoxia (HCC) Congestive heart failure, unspecified HF chronicity, unspecified heart failure type (HCC) Acute febrile illness Fever, unspecified Heart failure (HCC) Heart failure, unspecified Chest pain Chest pain, unspecified Stage 3 chronic kidney disease, unspecified whether stage 3a or 3b CKD (HCC) Atherosclerosis of coronary artery Coronary atherosclerosis of unspecified type of vessel, kalispel or graft CKD (chronic kidney disease) Chronic kidney disease, unspecified HTN (hypertension) Unspecified essential hypertension HLD (hyperlipidemia) Other and unspecified hyperlipidemia Anemia Anemia, unspecified Pneumonia Pneumonia, organism unspecified Heart failure with acute decompensation, type unknown (HCC) Congestive heart failure, unspecified Paroxysmal atrial fibrillation (HCC) Atrial fibrillation Interstitial lung disease (HCC) Postinflammatory pulmonary fibrosis HFrEF (heart failure with reduced ejection fraction) (HCC) PVD (peripheral vascular disease) (HCC) Peripheral vascular disease, unspecified Cardiomyopathy (HCC) Other primary cardiomyopathies COPD (chronic obstructive pulmonary disease) (HCC) Chronic airway obstruction, not elsewhere classified Type 2 diabetes mellitus (HCC) Type II or unspecified type diabetes mellitus without mention of complication, not stated as uncontrolled Central venous catheter in place, permanent Other postprocedural status documented in this encounter Administered Medications Inactive Administered Medications - up to 3 most recent administrations Medication Order MAR Action Action Date Dose Rate Site Acetaminophen (Tylenol) supp 650 mg 650 mg, Rectal, Q6H PRN Pain, Mild, Starting on Sun 23 at 1537, Until Sun05/02/23 at 1834, Maximum of 4 grams (4000mg) per day. Acetaminophen (Tylenol) tab 650 mg 650 mg, Oral, ONCE, On Sun04/29/23 at 1245, For 1 dose, Maximum of 4 grams (4000 mg) per day. Given 04/29/2023 12:03 PM EDT 650 mg Acetaminophen (Tylenol) tab 650 mg 650 mg, Oral, Q6H PRN Pain, Mild, Fever >38C(100.5F), Starting on Sun04/29/23 at 1537, Until Sun05/02/23 at 1834, Maximum of 4 grams (4000 mg) per day. albuterol-ipratropium (Duoneb) inhalation solution 3 mL 3 mL, Nebulizer, ONCE, On Sun04/29/23 at 1230, For 1 dose, 3 mL = 0.5 mg ipratropium/ 2.5 mg albuterol Given 04/29/2023 11:56 AM EDT 3 mL Apixaban (Eliquis) tab 5 mg 5 mg, Oral, BID(AM/PM), First dose on Sun04/29/23 at 2100, Until Discontinued Given 05/02/2023 9:05 AM EDT 5 mg Given 05/01/2023 9:02 PM EDT 5 mg Given 05/01/2023 8:52 AM EDT 5 mg atorvaSTATin (Lipitor) tab 80 mg 80 mg, Oral, Q1700, First dose on Sun04/29/23 at 1700, Until Discontinued Given 05/01/2023 4:02 PM EDT 80 mg Given 04/30/2023 4:16 PM EDT 80 mg Bumetanide (Bumex) tab 1 mg 1 mg, Oral, Daily(AM), First dose on Sun05/02/23 at 0900, Until Discontinued Given 05/02/2023 9:05 AM EDT 1 mg calcium CARBonate (Tums E-X) tab CHEW 750 mg 750 mg, Oral, BID PRN Indigestion, Starting on Sun04/29/23 at 1537, Until Sun05/02/23 at 1834 Calcium Carbonate 500 mg + Vitamin D 5 mcg (200 units) per tab 1 Tablet, Oral, DAILY NOON, First dose on Sun04/29/23 at 1600, Until Discontinued, Vitamin D 200 units = 5 mcg Given 05/02/2023 12:42 PM EDT 1 Tablet Given 05/01/2023 12:10 PM EDT 1 Tablet citalopram (CeleXA) tab 40 mg 40 mg, Oral, Daily(AM), First dose on Sun04/30/23 at 0900, Until Discontinued Given 05/02/2023 9:05 AM EDT 40 mg Given 05/01/2023 8:52 AM EDT 40 mg clopidogrel (pLAVix) tab 75 mg 75 mg, Oral, Daily(AM), First dose on Sun04/30/23 at 0900, Until Discontinued Given 05/02/2023 9:05 AM EDT 75 mg Given 05/01/2023 8:52 AM EDT 75 mg Docusate Sodium (Colace) cap 100 mg 100 mg, Oral, DAILY PRN Constipation, Starting on Sun04/29/23 at 1537, Until Sun05/02/23 at 1834, For oral administration ONLY, if route of administration is other than oral and alternative product must be ordered. doxycycline tab 100 mg 100 mg, Oral, Q12H, First dose on Sun05/01/23 at 1000, Last dose on Sun05/05/23 at 2100, For 5 days Given 05/02/2023 9:06 AM EDT 100 mg Given 05/01/2023 9:01 PM EDT 100 mg Given 05/01/2023 10:43 AM EDT 100 mg Finasteride (Proscar) tab 5 mg 5 mg, Oral, Daily(AM), First dose on Sun04/30/23 at 0900, Until Discontinued Given 05/02/2023 9:05 AM EDT 5 mg Given 05/01/2023 8:52 AM EDT 5 mg Furosemide (Lasix) inj 40 mg 40 mg, IV Push, BID (0900, 1600), First dose (after last reorder) on Sun04/29/23 at 1615, Until Discontinued Given 04/30/2023 9:16 AM EDT 40 mg Given 04/29/2023 5:01 PM EDT 40 mg Furosemide (Lasix) inj 60 mg 60 mg, IV Push, ONCE, On Sun04/29/23 at 1445, For 1 dose Given 04/29/2023 2:08 PM EDT 60 mg Furosemide (Lasix) inj 60 mg 60 mg, IV Push, BID (0900, 1600), First dose (after last modification) on Sun04/30/23 at 1600, Until Discontinued Given 05/01/2023 8:52 AM EDT 60 mg Given 04/30/2023 4:15 PM EDT 60 mg guaiFENesin-dm (Robitussin DM) oral syrup 10 mL 10 mL, Oral, Q4H PRN Cough, Starting on Sun04/29/23 at 1537, Until Sun05/02/23 at 1834 house antacid (Mi-Acid II) oral susp 15 mL 15 mL, Oral, Q4H PRN Indigestion, Starting on Sun04/29/23 at 1537, Until Sun05/02/23 at 1834, SHAKE WELL melatonin tab 3 mg 3 mg, Oral, HS PRN Insomnia, Starting on Sun04/29/23 at 1537, Until Sun05/02/23 at 1834 Menthol (Lane) cough drop 1 Lozenge 1 Lozenge, Oral, Q2H PRN Sore throat, Cough, Starting on Sun04/29/23 at 1537, Until Sun05/02/23 at 1834, methylPREDNISolone sodium succ (SOLU-Medrol) inj 125 mg 125 mg, IV Push, ONCE, On Sun04/29/23 at 1230, For 1 dose Given 04/29/2023 12:02 PM EDT 125 mg ondansetron (Zofran) inj 4 mg 4 mg, IV Push, Q6H PRN Nausea, Starting on Sun04/29/23 at 1537, Until Sun05/02/23 at 1834 oxyCODONE (Oxy IR) tab 5 mg 5 mg, Oral, Q4H PRN Pain, Moderate, Pain, Severe, Starting on Sun04/29/23 at 1537, Until Sun05/02/23 at 1834 oxygen GAS Inhalation, OXYGEN, First dose on Sun04/29/23 at 1600, Until Discontinued, Device/Managed by: NIV or Ventilator Device, Goal SPO2 (%): 91-95, Notify Provider: For sudden DECREASE in resting SPO2 to less than 85% and when escalating delivery device., Initial FiO2 (%): 40, Titration Interval: Q2 minutes and as needed. Oxygen On 05/01/2023 8:00 AM EDT Oxygen On 05/01/2023 12:00 AM EDT 4 L/min(Oxygen) Oxygen On 04/30/2023 4:00 PM EDT piperacillin-tazobactam (ZOSYN) 4.5 g in D5W 100 mL (FOUR hour infusion) IV Piggyback, 4.5 g, Q8HNOW, 15 doses, First dose on Sun04/29/23 at 1700, Last dose on Sun05/04/23 at 0900, Administer over 4 Hours, at 25 mL/hr Restarted 04/30/2023 8:43 AM EDT 1.125 g/hr 25 mL/hr Restarted 04/30/2023 7:55 AM EDT 1.125 g/hr 25 mL/hr Restarted 04/30/2023 7:18 AM EDT 1.125 g/hr 25 mL/hr piperacillin-tazobactam in D5W (Zosyn) (HALF hour infusion) ivpb 4.5 g IV Piggyback, 4.5 g, ONCE, 1 dose, On Sun04/29/23 at 1245, Administer over 30 Minutes New Bag 04/29/2023 12:33 PM EDT 4.5 g 200 mL/hr piperacillin-tazobactam in D5W (Zosyn) (HALF hour infusion) ivpb 4.5 g IV Piggyback, 4.5 g, [id number], 10 doses, First dose on Sun04/30/23 at 1800, Last dose on Sun05/05/23 at 0600, Administer over 30 Minutes New Bag 05/02/2023 6:45 AM EDT 4.5 g 200 mL/hr Rate Verify 05/01/2023 6:30 PM EDT 9 g/hr 200 mL/hr New Bag 05/01/2023 6:09 PM EDT 4.5 g 200 mL/hr Polyethylene Glycol 3350 (Miralax) oral powder 17 g 17 g (1 Packet), Oral, DAILY PRN Constipation, Starting on Sun04/29/23 at 1537, Until Sun05/02/23 at 1834, Mix in 8 oz of water, juice, soda, coffee, or tea. senna (Senokot) 1 Tablet 1 Tablet, Oral, DAILY PRN Constipation, Starting on Sun04/29/23 at 1537, Until Sun05/02/23 at 1834 sodium chloride 0.9 % flush peripheral ishmael 3 mL 3 mL, IV Push, QSHIFT, First dose on Sun04/29/23 at 1615, Until Discontinued, Do not flush if lock, PICC, or central line not in place; IV infusing or unable to flush. Given 05/02/2023 8:00 AM EDT 3 mL Given 05/02/2023 12:00 AM EDT 3 mL Given 05/01/2023 4:00 PM EDT 3 mL sodium chloride 0.9 % flush/inj 3 mL 3 mL, IV Push, PRN Other, Line Patency, Starting on Sun04/29/23 at 1535, Until Sun05/02/23 at 1834, Do not flush if lock, PICC, or central line not in place, IV infusing or unable to flush Vancomycin (Vancocin) 2000 mg in NSS 500 mL ivpb 2,000 mg, IV Piggyback, ONCE, 1 dose, On Sun04/29/23 at 1245 New Bag 04/29/2023 1:33 PM EDT 2,000 mg 27 5 mL/hr vancomycin (Vancocin) 500 mg in NSS 100 mL ivpb 500 mg, IV Piggyback, [id number], First dose on Sun04/30/23 at 0800, Until Discontinued New Bag 05/01/2023 2:46 AM EDT 500 mg 110 mL /hr New Bag 04/30/2023 9:29 AM EDT 500 mg 110 mL/hr documented in this encounter Active and Recently Administered Medications Times are shown in EDT. Scheduled Medication Order 04/30/2023 05/01/2023 05/02/2023 Apixaban (Eliquis) tab 5 mg 5 mg, Oral, BID(AM/PM), First dose on Sun04/29/23 at 2100, Until Discontinued 0900 (Not Given - Provider: SN Aaron - Reason: NPO)2049 (Given - Provider: Sulema Jackson RN) 08 (Given - Provider: Yani Montgomery RN)2101 (Given - Provider: Parris Roca RN) 09 (Given - Provider: Thien Ashton RN) atorvaSTATin (Lipitor) tab 80 mg 80 mg, Oral, Q1700, First dose on Sun04/29/23 at 1700, Until Discontinued 1616 (Given - Provider: Thien Ashton RN) 1602 (Given - Provider: Yani Montgomery RN) Bumetanide (Bumex) tab 1 mg 1 mg, Oral, Daily(AM), First dose on Sun05/02/23 at 0900, Until Discontinued 904 (Given - Provider: Thien Ashton RN) Calcium Carbonate 500 mg + Vitamin D 5 mcg (200 units) per tab 1 Tablet, Oral, DAILY NOON, First dose on Sun04/29/23 at 1600, Until Discontinued, Vitamin D 200 units = 5 mcg 1200 (Not Given - Provider: SN Aaron - Reason: NPO) 1210 (Given - Provider: Yani Montgomery RN) 1242 (Given - Provider: Liana Justin RN) citalopram (CeleXA) tab 40 mg 40 mg, Oral, Daily(AM), First dose on Sun04/30/23 at 0900, Until Discontinued 09 (Not Given - Provider: SN Aaron - Reason: NPO) 08 (Given - Provider: Yani Montgomery RN) 904 (Given - Provider: Thien Ashton RN) clopidogrel (pLAVix) tab 75 mg 75 mg, Oral, Daily(AM), First dose on Sun04/30/23 at 0900, Until Discontinued 899 (Not Given - Provider: SN Aaron - Reason: NPO) 0852 (Given - Provider: Yani Montgomery RN) 904 (Given - Provider: Thien Ashton RN) doxycycline tab 100 mg 100 mg, Oral, Q12H, First dose on Sun05/01/23 at 1000, Last dose on Sun05/05/23 at 2100, For 5 days 1043 (Given - Provider: Yani Montgomery RN)210 (Given - Provider: Parris Roca RN) 09 (Given - Provider: Thien Ashton RN) Finasteride (Proscar) tab 5 mg 5 mg, Oral, Daily(AM), First dose on Sun04/30/23 at 0900, Until Discontinued 0900 (Not Given - Provider: SN Aaron - Reason: NPO) 08 (Given - Provider: Yani Montgomery RN) 904 (Given - Provider: Thien Ashton, RN) Furosemide (Lasix) inj 40 mg (CANCELED) 40 mg, IV Push, BID (0900, 1600), First dose (after last reorder) on Sun04/29/23 at 1615, Until Discontinued 915 (Given - Provider: SN Aaron) Furosemide (Lasix) inj 60 mg (CANCELED) 60 mg, IV Push, BID (0900, 1600), First dose (after last modification) on Sun04/30/23 at 1600, Until Discontinued 161 (Given - Provider: Thien Ashton RN) 08 (Given - Provider: Yani Montgomery RN) oxygen GAS Inhalation, OXYGEN, First dose on Sun04/29/23 at 1600, Until Discontinued, Device/Managed by: NIV or Ventilator Device, Goal SPO2 (%): 91-95, Notify Provider: For sudden DECREASE in resting SPO2 to less than 85% and when escalating delivery device., Initial FiO2 (%): 40, Titration Interval: Q2 minutes and as needed. 0000 (Oxygen On - Provider: Sulema Jackson RN)0800 (Oxygen On - Provider: SN Aaron - Comment: Pt on BiPAP)1600 (Oxygen On - Provider: Marva Jackson RN) 0000 (Oxygen On - Provider: Sulema Jackson RN)0800 (Oxygen On - Provider: Yani Montgomery RN)1600 (Oxygen Off - Provider: Yani Montgomery RN) 0000 (Oxygen Off - Provider: Parris Roca RN)0800 (Oxygen Off - Provider: Thien Ashton RN) piperacillin-tazobactam (ZOSYN) 4.5 g in D5W 100 mL (FOUR hour infusion) (CANCELED) IV Piggyback, 4.5 g, Q8HNOW, 15 doses, First dose on Sun04/29/23 at 1700, Last dose on Sun05/04/23 at 0900, Administer over 4 Hours, at 25 mL/hr 0109 (New Bag - Provider: Sulema Jackson RN)0400 (Paused - Provider: Marva Jackson, MAEVE)0417 (Paused - Provider: Marva Jackson, RN)0427 (Restarted - Provider: Marva Jackson, MAEVE)0434 (Paused - Provider: Marva Jackson, RN)0441 (Restarted - Provider: Marva Jackson, RN)0442 (Paused - Provider: Marva Jackson, RN)0448 (Restarted - Provider: Marva Jackson, RN)0449 (Paused - Provider: Marva Jackson, RN)0452 (Restarted - Provider: Marva Jackson, RN)0511 (Paused - Provider: Marva Jackson, RN)0514 (Restarted - Provider: Marva Jackson, RN)0551 (Paused - Provider: Marva Jackson, MAEVE)0605 (Restarted - Provider: Marva Jackson, MAEVE)0646 (Paused - Provider: Marva Jackson, MAEVE)0658 (Restarted - Provider: Marva Jackson RN)0659 (Paused - Provider: Marva Jackson, MAEVE)0708 (Restarted - Provider: Marva Jackson, RN)0713 (Paused - Provider: Marva Jackson, RN)0718 (Restarted - Provider: Marva Jackson, MAEVE)0735 (Paused - Provider: Marva Jackson, MAEVE)0755 (Restarted - Provider: Marva Jackson, MAEVE)0836 (Paused - Provider: Marva Jackson, MAEVE)0843 (Restarted - Provider: Marva Jackson, MAEVE)0900 (Not Given - Provider: Marva Jackson RN - Reason: Order Clarified - Comment: called pharmacy to verify if zosyn should be given. 0100 dose just finsihed at 0900. See new order.)0906 (Stopped - Provider: Marva Jackson RN) piperacillin-tazobactam in D5W (Zosyn) (HALF hour infusion) ivpb 4.5 g IV Piggyback, 4.5 g, [id number], 10 doses, First dose on 04/30/23 at 1800, Last dose on Sun05/05/23 at 0600, Administer over 30 Minutes 1755 (New Bag - Provider: Marva Jackson RN)1826 (Stopped - Provider: Marva Jackson RN) 0626 (New Bag - Provider: Hari Pereira RN)0656 (Paused - Provider: Yani Montgomery RN)0727 (Restarted - Provider: Yani Montgomery, RN)0757 (Stopped - Provider: Yani Montgomery, RN)1809 (New Bag - Provider: Yani Montgomery, RN)1830 (Rate Verify - Provider: Yani Montgomery, RN)1838 (Stopped - Provider: Yani Montgomery, RN) 0645 (New Bag - Provider: Parris Roca RN) sodium chloride 0.9 % flush peripheral ishmael 3 mL 3 mL, IV Push, QSHIFT, First dose on Sun04/29/23 at 1615, Until Discontinued, Do not flush if lock, PICC, or central line not in place; IV infusing or unable to flush. 0000 (Not Given - Provider: Sulema Jackson RN - Reason: Parameter(s) Not Met)0915 (Given - Provider: SN Aaron)1600 (Given - Provider: Marva Jackson RN) 0000 (Not Given - Provider: Sulema Jackson RN - Reason: Parameter(s) Not Met)0800 (Given - Provider: Yani Montgomery RN)1600 (Given - Provider: Yani Montgomery RN) 0000 (Given - Provider: Parris Roca RN)0800 (Given - Provider: Thien Ashton RN) vancomycin (Vancocin) 500 mg in NSS 100 mL ivpb (CANCELED) 500 mg, IV Piggyback, [id number], First dose on Sun04/30/23 at 0800, Until Discontinued 0929 (New Bag - Provider: SN Aaron)1029 (Stopped - Provider: Marva Jackson RN) 0246 (New Bag - Provider: Sulema Jackson RN)0345 (Stopped - Provider: Yani Montgomery RN) PRN Medication Order 04/30/2023 05/01/2023 05/02/2023 Acetaminophen (Tylenol) supp 650 mg 650 mg, Rectal, Q6H PRN Pain, Mild, Starting on 04/29/23 at 1537, Until Sun05/02/23 at 1834, Maximum of 4 grams (4000mg) per day. Acetaminophen (Tylenol) tab 650 mg 650 mg, Oral, Q6H PRN Pain, Mild, Fever >38C(100.5F), Starting on 04/29/23 at 1537, Until Sun05/02/23 at 1834, Maximum of 4 grams (4000 mg) per day. calcium CARBonate (Tums E-X) tab CHEW 750 mg 750 mg, Oral, BID PRN Indigestion, Starting on 04/29/23 at 1537, Until Sun05/02/23 at 1834 1238 (Wasted - Provi noemi: Liana Justin RN) Docusate Sodium (Colace) cap 100 mg 100 mg, Oral, DAILY PRN Constipation, Starting on 04/29/23 at 1537, Until Sun05/02/23 at 1834, For oral administration ONLY, if route of administration is other than oral and alternative product must be ordered. guaiFENesin-dm (Robitussin DM) oral syrup 10 mL 10 mL, Oral, Q4H PRN Cough, Starting on 04/29/23 at 1537, Until Sun05/02/23 at 1834 house antacid (Mi-Acid II) oral susp 15 mL 15 mL, Oral, Q4H PRN Indigestion, Starting on 04/29/23 at 1537, Until Sun05/02/23 at 1834, SHAKE WELL melatonin tab 3 mg 3 mg, Oral, HS PRN Insomnia, Starting on 04/29/23 at 1537, Until Sun05/02/23 at 1834 Menthol (Lane) cough drop 1 Lozenge 1 Lozenge, Oral, Q2H PRN Sore throat, Cough, Starting on 04/29/23 at 1537, Until Sun05/02/23 at 1834, ondansetron (Zofran) inj 4 mg 4 mg, IV Push, Q6H PRN Nausea, Starting on 04/29/23 at 1537, Until Sun05/02/23 at 1834 oxyCODONE (Oxy IR) tab 5 mg 5 mg, Oral, Q4H PRN Pain, Moderate, Pain, Severe, Starting on 04/29/23 at 1537, Until Sun05/02/23 at 1834 Polyethylene Glycol 3350 (Miralax) oral powder 17 g 17 g (1 Packet), Oral, DAILY PRN Constipation, Starting on 04/29/23 at 1537, Until Sun05/02/23 at 1834, Mix in 8 oz of water, juice, soda, coffee, or tea. senna (Senokot) 1 Tablet 1 Tablet, Oral, DAILY PRN Constipation, Starting on 04/29/23 at 1537, Until Sun05/02/23 at 1834 sodium chloride 0.9 % flush/inj 3 mL 3 mL, IV Push, PRN Other, Line Patency, Starting on 04/29/23 at 1535, Until Sun05/02/23 at 1834, Do not flush if lock, PICC, or central line not in place, IV infusing or unable to flush documented in this encounter Additional Health Concerns Infection Onset Date Last Indicated Resolved Time Respiratory Rule-Out 04/29/2023 04/29/2023 023 12:53 PM EDT COVID-19 Rule-Out 04/29/2023 04/29/2023 04/29/2023 12:53 PM EDT documented as of this encounter Advance Directives Latest [...] the patient have Health Care Power of Rotary Driller Helper? No Bag Valve Device? No Intubation? No [...] the patient have Health Care Power of Rotary Driller Helper? No Care Teams Wildfire Prevention Specialist Relationship Specialty Start Date End Date Vinod Pang Jr., DO [address] [facility] [place] [address] PCP - General 04/26/09 documented as of this encounter
--- OUTSIDE RECORDS SUMMARY | 2023-08-21 23:51 | External Medical Summary | Summary of Care ---
Author Name Unknown Organization [facility] [address] [facility] [address] Phone [phone] Care Team Providers Care Braider Setter Name Role Phone Poly Basilio DO, Kenneth Primary Care Provider [phone] Encounter Details Date Type Department Care Team Description 05/10/2023 Orders Only Unspecified Department Vinod Pang Jr., DO [address] [facility] [phone] Allergies No known active allergiesdocumented as of this encounter (statuses as of 05/10/2023) Medications Medication Sig Dispensed Refills Start Date [...] as of this encounter (statuses as of 05/10/2023) Active Problems Problem Noted Date Acute on [...] as of this encounter (statuses as of 05/10/2023) Immunizations Name Administration Dates Next Due Pneumococcal [...] do you have serious difficulty h earing? Yes-[place] 04/29/2023 Are you blind or do you [...] as of this encounter Plan of Treatment Upcoming Encounters Date Type Specialty Care Team Description 05/14/2023 Hem/Onc Treatment Hematology Oncology [facility], Chair8 Hem Onc [address] [place] [phone] Health Maintenance Due Date Last Done Comments [...] Additional history exists Albumin/Creatinine Ratio 04/11/2024 04/11/2023, 0501/2022 O2 ASSESSMENT COMPLETED IN PAST YEAR FOR [...] Associated Diagnosis Comments BASIC METABOLIC PANEL Routine 05/10/2023 9:33 AM EDT CBC Routine 05/10/2023 9:33 AM EDT documented in this encounter Results * (ABNORMAL) BASIC METABOLIC PANEL (05/10/2023 9:33 AM EDT) GLUCOSE-OUTSID E LAB 98 70 - 110 MG/DL [facility] Comment:Document delivery by [place] on behalf of [facility] BUN-OUTSIDE LAB 45(H) 6 - 25 MG/DL [facility] Comment:Document delivery by [place] on behalf of [facility] CREATININE-OUT SIDE LAB 3.0(H) 0.7 - 1.3 MG/DL [facility] Comment:Document delivery by [place] on behalf of [facility] SODIUM-OUTSIDE LAB 141 135 - 145 MEQ/L [facility] Comment:Document delivery by [place] on behalf of [facility] POTASSIUM-OUTS BRIT LAB 4.5 3.5 - 5.0 MEQ/L [facility] Comment:Document delivery by [place] on behalf of [facility] CHLORIDE-OUTSI DE LAB 105 95 - 107 MEQ/L [facility] Comment:Document delivery by [place] on behalf of [facility] CO2-OUTSIDE LAB 23(L) 24 - 31 MEQ/L [facility] Comment:Document delivery by [place] on behalf of [facility] CALCIUM-OUTSID E LAB 8.5 8.5 - 10.6 MG/DL [facility] Comment:Document delivery by [place] on behalf of [facility] EGFR-OUTSIDE LAB 22(L) >60 ML/MIN/1.7 3 SQM [facility] Comment:Document delivery by [place] on behalf of [facility] 05/10/2023 9:33 AM EDT Vinod Pang Jr., DO LAB BLOOD ORDERAB LES [facility] [address] [place] [address] * (ABNORMAL) CBC (05/10/2023 9:33 AM EDT) WBC-OUTSIDE LAB 9.1 3.1 - 9.2 10^3/M3 [facility] Comment:Document delivery by [place] on behalf of [facility] RBC-OUTSIDE LAB 3.86(L) 4.00 - 5.80 10^6/M3 [facility] Comment:Document delivery by [place] on behalf of [facility] HGB - OUTSIDE LAB 10.9(L) 12.5 - 17.5 GR/DL [facility] Comment:Document delivery by [place] on behalf of [facility] HCT-OUTSIDE LAB 34.5(L) 37.5 - 52.5 % [facility] Comment:Document delivery by [place] on behalf of [facility] MCV-OUTSIDE LAB 89.2 82.6 - 95.8 CU MICR [facility] Comment:Document delivery by [place] on behalf of [facility] MCH-OUTSIDE LAB 28.1 27.9 - 32.9 AJ GR [facility] Comment:Document delivery by [place] on behalf of [facility] MCHC-OUTSIDE LAB 31.6(L) 32.6 - 35.4 % [facility] Comment:Document delivery by [place] on behalf of [facility] RDW-OUTSIDE LAB 18.8(H) 11.4 - 14.6 % [facility] Comment:Document delivery by [place] on behalf of [facility] PLT-OUTSIDE LAB 284 140 - 350 10^3/M3 [facility] Comment:Document delivery by [place] on behalf of [facility] MPV-OUTSIDE LAB 7.7 7.0 - 10.6 CU MICR [facility] Comment:Document delivery by [place] on behalf of [facility] 05/10/2023 9:33 AM EDT Vinod Pang Jr., DO LAB BLOOD ORDERAB LES [facility] [address] [place] [address] documented in this encounter Advance Directives Latest [...] the patient have Health Care Power of Revenue Collector? No Bag Valve Device? No Intubation? No [...] the patient have Health Care Power of Revenue Collector? No Care Teams Braider Setter Relationship Specialty Start Date End Date Vinod Pang Jr., DO [address] [facility] [address] PCP - General 04/26/09 documented as of this encounter
--- OUTSIDE RECORDS SUMMARY | 2023-08-21 23:51 | External Medical Summary | Continuity of Care Document ---
Author Name MATILDA ATKINSON DO Address [address] [place] [address] [place] [address] Phone [phone] Organization [facility] Address [address] [place] [address] RD, [address] [place] [address] Phone [phone] Care Team Providers Care Pharmaceutical Sales Specialist Name Role Phone GI - Gastroenterology Care Team Information Rece Fermín Harrell MD Care Team Information Receiv er [phone] Rory Hodge Care Team Information Head Of English [phone] Nixon Aden MD Care Team Information Head Of English [phone] Abran Eugene JR - Interven tional Pain Medicine Care Team Information Head Of English [phone] Medardo Trinidad MD Care Team Information Receive r [phone] Sinan Marks MD Care Team Information Receive r [phone] Problems Active Problems Provider Date Chronic kidney [...] Atkinson JR, DO On set: 09/01/2015 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 Maintenance Custodian (Cu rrent) Use Encounter Matilda Atkinson JR [...] SIG Qnty Indications Ordering Provider Date Clopidogrel Sfucyhbyy12hj Tablets Take One (1) Tablet By Mouth Every Day 30tabs I73.9 Matilda L. Poly JR, DO 08/24/2021 Citalopram Beylvumotemu05yb Tablets take one 1/2 tablets by mouth every day 135tabs F33.1 Matilda Atkinson JR, DO 06/23/2019 Nyjnzcrsdgt7du Tablets Take One Tablet By Mouth Once Daily 30tabs Matilda Atkinson JR, DO 11/12/2017 Oxycodone-Acetaminoph en7.5-325mg Tablets take one tablet every 6 h as needed pain--ongoing therapy 60tabs Matilda Atkinson JR, DO 01/22/2014 Atorvastatin Tzlhcix22fz Tablets Take One Tablet By Mouth AT Bedtime 90tabs E78.0 Matilda Atkinson JR, DO E78.00 Qptbkk04686Eckh/ML Solution 40,000 units monthly Unknown Eijmltbwfg70yk Tablets 1 by mouth twice a day 180tabs Unknown Pantoprazole Dtgsrh04kz Tablets DR 1 by mouth every day Unknown Hlcvdok1xp Tablets 1 by mouth twice a day Unknown Tamsulosin HCL0.4mg Capsules 1 by mouth every day Unknown Jdmtzehvvk3sy Tablets 1 tab daily Unknow n History Medications Nitrofurantoin Monohyd Gxgyd168ja Capsules take 1 capsule twice daily for 10 days 20caps Gisella Lisa MD, PhD 03/23/2023 - 04/10/2023 Kgacgcksou473ee Tablets take 1 tab by mouth twice [...] CPT Code Status Date Vaccine Lot # [id number] Given 10/04/2022 Influenza Vaccine High Do se 0.5ML [id number] U-FLU Given 10/04/2022 Influenza,Unspecified 45090 Given 08/11/2020 Influenza Vacci ne-Administered at another facility U-FLU Given 08/11/2020 Influenza,Unspecified U-FLU Given 08/23/2019 Influenza,Unspecified 75079 Given 08/23/2019 Influenza Vacci ne-Administered at another facility 46071 Given 07/11/2018 Influenza Vac, Split, Preservative Free High Dose Age 65 & > [id number] 71513 Given 10/02/2017 Pneumococcal Conjugate-Pr evnar 13 14364 Given 10/02/2017 Influenza Vac, Split, Preservative Free High Dose Age 65 & > 39528 Given 08/14/2016 Influenza Virus Vaccine, Quadrivalent, Im Use [id number] 23172 Given 09/01/2015 Influenza Vac, Split, Preservative Free High Dose Age 65 & > [id number] 31822 Given 09/01/2015 Pneumococcal Conjugate-Pr evnar 13 [id number] 45864 Given 07/21/2014 Influenza Vac, Split, Preservative Free High Dose Age 65 & > [id number] U-FLU Given 07/21/2014 Influenza,Unspecified 51115 Given 01/31/2014 Pneumococcal Vaccine/Pneu movax 23 36566 Given 07/17/2013 Influenza Vac, Split, Preservative Free High Dose Age 65 & > [id number] 27862 Given 07/24/2012 Influenza Vac, Split, Preservative Free High Dose Age 65 & > [id number] 54559 Given 07/04/2011 Influenza Vac, Split, Preservative Free High Dose Age 65 & > [id number] 66864 Given 08/16/2010 Pneumococcal Vaccine/Pneu movax 23 [id number] 58135 Given 10/21/2009 Influenza Vac, Split 3 Yr s And Up [id number] 86330 Given 07/24/2008 Influenza Vac, Split 3 Yr s And Up U-FLU Given 07/22/2008 Influenza,Unspecified 30569 Given 10/27/2004 Influenza Vac, Split 3 Yr s And Up 54011 Given 07/22/2004 Pneumococcal Vaccine/Pneu movax 23 98858 Refused 04/11/2023 Moderna Sars-Co v-2 (Covid-19) vaccine, 100 mcg/ 0.5 mL 12Y+ 39146 Refused 04/11/2023 Shingrix 49123 Refused 07/26/2021 Moderna Sars-Co v-2 (Covid-19) vaccine, 100 mcg/ 0.5 mL 12Y+ 98366 Refused 09/28/2020 Tdap (Tetanus, diphtheria & acel. pertussis) Adacel or Boostrix 11869 Refused 09/28/2020 Shingrix 34422 Refused 08/19/2020 Influenza Virus Vaccine, Quadrivalent, Im Use 02019 Refused 07/11/2016 Influenza Vac, Split, Preservative Free [...] H/L Range N ote CBC W/Diff 04/16/2023 [facility] [address] [place] [address] [phone] WBC 6.5 10^3/M3 3.1-9.2 RBC 3.57 10^6/M3 Low 4.00-5.80 HGB 10.0 GR/DL Low 12.5-17.5 HCT 31.3 % Low 37.5-52.5 MCV 87.7 CUMICR 82.6-95.8 MCH 27.9 PICOGR 27.9-32.9 MCHC 31.9 % Low 32.6-35.4 RDW 17.5 % High 11.4-14.6 PLT 263 10^3/M3 140-350 MPV 7.5 CUMICR 7.0-10.6 %Neut 71.5 % 40.0-75.0 %Lymph 6.1 % Low 17.0-45.0 %Labette 11.1 % High 1.0-11.0 %Eos 10.6 % High 0.0-6.0 %Baso 0.7 % 0.0-2.0 #Neut 4.7 10^3/M3 1.5-8.0 #Lymph 0.4 10^3/M3 Low 0.8-3.2 #Labette 0.7 10^3/M3 0.0-0.8 #Eos 0.7 10^3/m3 High 0.0-0.4 #Baso 0.0 10^3/m3 0.0-0.2 Laboratory test finding 04/16/2023 [facility] [address] [place], [place] [phone] Uric Acid 5.3 mg/dL 2.5-7.5 R.A. Factor <10.0 IU/mL 0.0-20.0 Raina NEGATIVE Sed Rate 37 High 0-15 Lyme Disease AB W/RFX To Blot (Igg,Igm) 04/16/[address] [facility] [place] [address] [phone] Lyme AB Screen <0.90 index Normal 1 Laboratory test finding 04/16/[address] [facility] [place] [address] [phone] Clinical PDF Report [id number] SEE IMAGE Microalbumin Urine 04/11/2023 [facility] [address] [place] [address] [phone] Urine Creat 74 mg/dL Comment Microalbumin 7.8 mg/dL High 0.0-1.8 2 ug/mgCREATININE 105 ug/mg High 0-29 CBC W/Diff 04/04/2023 [facility] [address] [place] [address] [phone] WBC 6.1 10^3/M3 3.1-9.2 RBC 3.34 10^6/M3 Low 4.00-5.80 HGB 9.4 GR/DL Low 12.5-17.5 HCT 29.3 % Low 37.5-52.5 MCV 88.0 CUMICR 82.6-95.8 MCH 28.3 PICOGR 27.9-32.9 MCHC 32.2 % Low 32.6-35.4 RDW 16.5 % High 11.4-14.6 PLT 285 10^3/M3 140-350 MPV 7.9 CUMICR 7.0-10.6 %Neut 68.7 % 40.0-75.0 %Lymph 7.8 % Low 17.0-45.0 %Labette 9.3 % 1.0-11.0 %Eos 13.1 % High 0.0-6.0 %Baso 1.1 % 0.0-2.0 #Neut 4.2 10^3/M3 1.5-8.0 #Lymph 0.5 10^3/M3 Low 0.8-3.2 #Labette 0.6 10^3/M3 0.0-0.8 #Eos 0.8 10^3/m3 High 0.0-0.4 #Baso 0.1 10^3/m3 0.0-0.2 Comp. Met 04/04/2023 [facility] [address] [place] [address] [phone] Glucose 116 mg/dL High 70-110 BUN 45 [...] GFR 24 ML/MIN/1.73SQM Low >60 Hba1c 04/04/2023 [facility] [address] [place] [address] [phone] A1c 5.70 % 4.70-6.50 3 Laboratory test finding 04/04/2023 [facility] [address] [place] [address] [phone] Ferritin 50.30 ng/mL 22.00-415.0 Iron Panel([employer]) 04/04/2023 [facility] [address] [place] [address] [phone] Iron 33 g /dL Low 45-140 % Saturation 11 % Low 30-35 Lipid 04/04/2023 [facility] [address] [place] [address] [phone] Cholesterol 121 mg/dL 0-200 4 Triglyceride 71 mg/dL 0-150 5 HDLD 38 mg/dL See Comment 6 Measured LDL 70 mg/dL 0-130 7 Calc VLDL 14.2 mg/dL See Comment 8 Chol/HDL 3.2 RATIO See Comment 9 Non-HDL 83 mg/dL See Comment 10 Laboratory test finding 04/04/2023 [facility] [address] [place] [address] [phone] TSH 2.51 uIU/mL 0.50-6.00 FRT4 0.79 ng/dL 0.75-1.54 Tibc 04/04/2023 [facility] [address] [place] [address] [phone] Tibc 297 g /dL 260-400 Transferrin 212 mg/dL 200-400 Urine Isolate#1 03/19/2023 [facility] [address] [place] [address] [phone] Isolate #1 Enterococcus mar <SEE NOTE> 11 Ampicillin >8 R Ciprofloxacin >2 R Levofloxacin >4 R Linezolid <=2 S Nitrofurantoin <=32 S Penicillin >8 R Rifampim >2 R Tetracycline >8 R Vancomycin >16 R Urinalysis 03/19/2023 [facility] [address] [place] [address] [phone] Color LIGHT-YELLOW Appearance CLEAR Clear Spec.Grav. 1.010 1.005-1.025 Leukocytes LARGE Abnormal Negative Nitrite NEGATIVE Negative PH 6.0 6.0-7.5 Protein TRACE Abnormal Negative Urine Glucose NEGATIVE Negative Ketone NEGATIVE Negative Urobilinogen NORMAL E.U./DL Normal Bilirubin NEGATIVE Negative Blood NEGATIVE Negative WBC-U TNTC /HPF Abnormal 0-5/HPF RBC-U 3-5 /HPF 0-5/HPF Bacteria 1+ Abnormal None Seen Squamous 0-2 /HPF 0-5/HPF Laboratory test finding 03/19/2023 [facility] [address] [place] [address] [phone] BNP 904.0 pg/mL Critical high 0.0-100.0 BMP 03/19/2023 [facility] [address] [place], [place] [phone] Glucose 132 mg/dL High 70-110 BUN 43 mg/dL High 6-25 Creatinine 3.1 mg/dL Critical high 0.7-1.3 12 Sodium 141 mEq/L 135-145 Potassium 4.0 mEq/L 3.5-5.0 Chloride 105 mEq/L 95-107 Co-2 22 mEq/L Low 24-31 Calcium 9.1 mg/dL 8.5-10.6 GFR 21 ML/MIN/1.73SQM Low >60 CBC W/Diff 03/19/2023 [facility] [address] [place], [place] [phone] WBC 6.3 10^3/M3 3.1-9.2 RBC 3.06 10^6/M3 Low 4.00-5.80 HGB 9.0 GR/DL Low 12.5-17.5 HCT 29.4 % Low 37.5-52.5 MCV 95.8 CUMICR 82.6-95.8 MCH 29.4 PICOGR 27.9-32.9 MCHC 30.7 % Low 32.6-35.4 RDW 17.6 % High 11.4-14.6 PLT 266 10^3/M3 140-350 MPV 8.2 CUMICR 7.0-10.6 %Neut 76.3 % High 40.0-75.0 %Lymph 7.3 % Low 17.0-45.0 %Labette 8.7 % 1.0-11.0 %Eos 7.0 % High 0.0-6.0 %Baso 0.7 % 0.0-2.0 #Neut 4.8 10^3/M3 1.5-8.0 #Lymph 0.5 10^3/M3 Low 0.8-3.2 #Labette 0.5 10^3/M3 0.0-0.8 #Eos 0.4 10^3/m3 0.0-0.4 #Baso 0.0 10^3/m3 0.0-0.2 Laboratory test finding 03/19/2023 [facility] (In Office Test) Sars Rna QL PCR - In Office Not Detected. Urine Culture 03/19/2023 [facility] [address] [place] [address] [phone] Urine Source URINE Total Col Count >100,000 COL/CC Renal Panel 02/28/2023 [facility] [address] [place], [place] [address] [phone] Glucose 96 mg/dL 70-110 13 BUN 56 mg/dL High 6-25 Creatinine 2.9 mg/dL High 0.7-1.3 Sodium 142 mEq/L 135-145 Potassium 4.4 mEq/L 3.5-5.0 Chloride 109 mEq/L High 95-107 Co-2 23 mEq/L Low 24-31 Calcium 8.4 mg/dL Low 8.5-10.6 Phosphorus 3.3 mg/dL 2.5-4.8 Albumin 3.5 g/dL 3.0-5.2 GFR 22 Low >60 CBC No Diff 02/28/2023 [facility] [address] [place], [place] [id number] [phone] WBC 5.9 10^3/M3 3.1-9.2 RBC 2.90 10^6/M3 Low 4.00-5.80 HGB 8.6 GR/DL Low 12.5-17.5 HCT 27.9 % Low 37.5-52.5 MCV 96.3 CUMICR High 82.6-95.8 MCH 29.6 PICOGR 27.9-32.9 MCHC 30.8 % Low 32.6-35.4 RDW 18.5 % High 11.4-14.6 PLT 238 10^3/M3 140-350 MPV 8.0 CUMICR 7.0-10.6 Laboratory test finding 02/28/2023 [facility] [address] [place] [address] [phone] Vitd-25Oh 46 ng/mL 30-100 Laboratory test finding 02/13/2023 [facility] [address] [place], [place] [phone] Magnesium 2.1 mg/dL 1.7-2.8 14 BMP 02/13/2023 [facility] [address] [place] [address] [phone] Glucose 99 mg/dL 70-110 15 BUN 59 mg/dL High 6-25 Creatinine 3.0 mg/dL High 0.7-1.3 Sodium 142 mEq/L 135-145 Potassium 3.8 mEq/L 3.5-5.0 Chloride 106 mEq/L 95-107 Co-2 27 mEq/L 24-31 Calcium 9.0 mg/dL 8.5-10.6 GFR 22 Low >60 Laboratory test finding 02/13/2023 [facility] [address] [place] [address] [phone] BNP 490.0 pg/mL Critical high 0.0-100.0 16 H & H 02/13/2023 [facility] [address] [place] [address] [phone] HGB 9.9 GR/DL Low 12.5-17.5 HCT 30.6 % Low 37.5-52.5 Renal Panel 02/05/2023 [facility] [address] [place] [address] [phone] Glucose 104 mg/dL 70-110 17 BUN 42 mg/dL High 6-25 Creatinine 3.0 mg/dL High 0.7-1.3 Sodium 150 mEq/L High 135-145 Potassium 4.9 mEq/L 3.5-5.0 Chloride 114 mEq/L High 95-107 Co-2 25 mEq/L 24-31 Calcium 8.9 mg/dL 8.5-10.6 Phosphorus 3.7 mg/dL 2.5-4.8 Albumin 3.8 g/dL 3.0-5.2 GFR 22 Low >60 CBC No Diff 02/05/2023 [facility] [address] [place], [place] [address] [phone] WBC 5.1 10 3.1-9.2 RBC 3.28 10 Low 4.00-5.80 HGB 9.6 GR/DL Low 12.5-17.5 HCT 30.9 % Low 37.5-52.5 MCV 94.4 CUMICR 82.6-95.8 MCH 29.3 PICOGR 27.9-32.9 MCHC 31.1 % Low 32.6-35.4 RDW 17.8 % High 11.4-14.6 PLT 195 10 140-350 MPV 8.2 CUMICR 7.0-10.6 Laboratory test finding 02/05/2023 [facility] [address] [place] [address] [phone] Vitd-25Oh 38 ng/mL 30-100 1 Index Interpretation [...] when erythema migrans is apparent. 2 *[facility] USES MICROALBUMIN/CREATINE RATIO : [...] fax results t o Litzy Baez PA-C B-[phone] F- [phone] 15 REPORT FAXED TO [facility], REQUESTED ON REQUISITION.02/14/23 LM 16 CRITICAL RESULTS LUCI IFIED, FAXED, AND CALLED TO LASHON HENRY @ 4:09. 02/13/23 17 REPORT FAXED TO [facility], REQUESTED ON REQUISITION. 02.06.23 [facility] Procedures Date Code Description Status 05/10/2023 1111F D/C Medications Reconciled W/Current Medications In Outpt MR Completed 05/10/2023 10213 Venipuncture Routine Complet ed 05/04/2023 1111F D/C Medications Reconciled W/Current Medications In Outpt MR Completed 04/16/2023 91759 Pulse Oximetry Single Determ ination Completed 04/16/2023 62188 Venipuncture Routine Complet ed 04/11/2023 3078F PVRP Diastolic BP <80 mmHg C ompleted 04/11/2023 1100F PT Screened Futu re Fall Risk >/=2 Falls In Past Yr/1 W/Injury Completed 04/11/2023 3074F PVRP Systolic BP <130 mmHg C ompleted 04/11/2023 3288F Fall Risk Assessment Documen awais Completed 04/11/2023 3725F Screening Depression Perform ed Completed 04/11/2023 33280 Fundus Eye Exam Completed 04/04/2023 44200 Venipuncture Routine Complet ed 03/19/2023 91920 Venipuncture Routine Complet ed 02/28/2023 91487 Venipuncture Routine Complet ed 02/13/2023 70538 Venipuncture Routine Complet ed 01/15/2023 1111F D/C [...] Atkinson JR, DO 04/11/2023 Z00.01 Encounter for [facility] adult medical examination with abnormal findings [...] hyperp arathyroidism of renal origin Lab - [place] 04/04/2023 E78.00 Pure hypercholesterolemia, u nspecified Matilda Atkinson JR, DO 04/04/2023 E78.00 Pure hypercholesterolemia, u nspecified Lab - [place] 04/04/2023 E88.81 Metabolic syndrome Matilda Atkinson JR, [...] Acute kidney failure, unspec ified Lab - [place] 02/28/2023 E55.9 Vitamin D deficiency, unspec ified Matilda Atkinson JR, DO 02/28/2023 E55.9 Vitamin D deficiency, unspec ified Lab - [place] 02/28/2023 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, stag e 4 (severe) Matilda Atkinson JR, DO 02/28/2023 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, stag e 4 (severe) Lab - [place] 02/13/2023 I50.9 Heart failure, unspecified K dusty Atkinson JR, DO 02/13/2023 I50.9 Heart failure, unspecified L ab - [place] 02/13/2023 E11.21 Type 2 diabetes mellitus with diabetic nephropathy Matilda Atkinson JR, DO 02/05/2023 N17.9 Acute kidney failure, unspec ified Matilda Atkinson JR, DO 02/05/2023 N17.9 Acute kidney failure, unspec ified Lab - [place] 02/05/2023 E55.9 Vitamin D deficiency, unspec ified Matilda Atkinson JR, DO 02/05/2023 E55.9 Vitamin D deficiency, unspec ified Lab - [place] 02/05/2023 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, stag e 4 (severe) Matilda Atkinson JR, DO 02/05/2023 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, stag e 4 (severe) Lab - [facility] 01/15/2023 N40.1 Benign prostatic hyperplasia with lower urinary tract symptoms Pierre Costa PA-C 01/15/2023 A41.50 Gram-negative sepsis, unspec ified Pierre Costa PA-C Plan of Treatment Future Appointment(s):* 06/13/2023 11:15 am - Matilda Atkinson JR DO at [facility] * 07/11/2023 6:30 am - [facility] [place] [facility] * 07/17/2023 11:00 am - Matilda Atkinson JR DO at [facility] 05/10/2023 - Matilda Atkinson JR DO* J96.01 Acute respiratory failure with hypoxia * J18.9 Pneumonia, unspecified organism * F33.1 Major depressive disorder, recurrent, moderate * All* Follow up:* Follow up in 1 month or sooner as needed. Functional Status Description No Information Available Mental Status Description No Information Available Referrals Refer to Reason for Referral Status Appt Didi Silva [address] [place] [address] Dr Hunter 4 [phone]
--- OUTSIDE RECORDS SUMMARY | 2023-08-21 23:51 | External Medical Summary | Continuity of Care Document ---
Author Name MATILDA ATKINSON DO Address [address] [place] [address] [place] [address] Phone [phone] Organization [place] Address [address] [place] [address] RD, [place] [address] Phone [phone] Care Team Providers Care Associate Designer Name Role Phone GI - Gastroenterology Care Team Information Rece Fermín Harrell MD Care Team Information Receiv er [phone] Rory Hodge Care Team Information Carpet Technician [phone] Nixon Aden MD Care Team Information Carpet Technician [phone] Abran Eugene JR - Interven tional Pain Medicine Care Team Information Carpet Technician [phone] Medardo Trinidad MD Care Team Information Receive r [phone] Sinan Marks MD Care Team Information Receive r [phone] Problems Active Problems Provider Date Chronic kidney [...] Atkinson JR, DO On set: 09/01/2015 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 Utilization Management Nurse (Cu rrent) Use Encounter Matilda Atkinson JR [...] Description Comments Sex Unknown Tobacco Use Reviewed: 04/11/23 Never Smoked Cigarette s Tobacco Use Reviewed: 04/11/23 Never Smoked Cigars Tobacco Use Reviewed: 04/11/23 Never Smoked A Pipe Smoking Status Reviewed: 04/16/23 Never Smoked A Pipe Smokeless Tobacco 04/11/2023 Current Smokel ess Tobacco User, Uses 9 Times Daily ETOH Use Denies alcohol use Recreational Drug Use Denies Drug Use Allergies and adverse reactions Description No Known Drug Allergies Medications Active Medications SIG Qnty Indications Ordering Provider Date Clopidogrel Ynvtmunks81rj Tablets Take One (1) Tablet By Mouth Every Day 30tabs I73.9 Matilda L. Poly JR, DO 08/24/2021 Citalopram Xubauhnhuloq53ko Tablets Take One (1) Tablet By Mouth Every Day 90tabs F33.1 Matilda Atkinson JR, DO 06/23/2019 Kxkiiiqglrx9iy Tablets Take One Tablet By Mouth Once Daily 30tabs Matilda Atkinson JR, DO 11/12/2017 Oxycodone-Acetaminophe n7.5-325mg Tablets take one tablet every 6 h as needed pain--ongoing therapy 60tabs Matilda Atkinson JR, DO 01/22/2014 Atorvastatin Nzlvdzd66dj Tablets Take One Tablet By Mouth AT Bedtime 90tabs E78.0 Matilda Atkinson JR, DO E78.00 Rinjcj62752Mfak/ML Solution 40,000 units monthly Unknown Tuatrfhhty12sc Tablets 1 by mouth twice a day 180tabs Unknown Pantoprazole Dndwiq12ht Tablets DR 1 by mouth every day Unknown Ombvghk1no Tablets 1 by mouth twice a day Unknown Tamsulosin HCL0.4mg Capsules 1 by mouth every day Unknown Doxycycline Vfpxvam810hc Tablets Ryan Gloria MD - 05/07/2023 Jnocofpj238im Capsules Ryan Armstrong MD - 05/07/2023 Nqxthywpns6if Tablets 1 tab daily Unknow n History Medications Nitrofurantoin Monohyd Dfton454xy Capsules take 1 capsule twice daily for 10 days 20caps Gisella Lisa MD, PhD 03/23/2023 - 04/10/2023 Dedhataqpf792of Tablets take 1 tab by mouth twice [...] CPT Code Status Date Vaccine Lot # [id number] Given 10/04/2022 Influenza Vaccine High Do se 0.5ML [id number] U-FLU Given 10/04/2022 Influenza,Unspecified 34748 Given 08/11/2020 Influenza Vacci ne-Administered at another facility U-FLU Given 08/11/2020 Influenza,Unspecified U-FLU Given 08/23/2019 Influenza,Unspecified 06351 Given 08/23/2019 Influenza Vacci ne-Administered at another facility 88115 Given 07/11/2018 Influenza Vac, Split, Preservative Free High Dose Age 65 & > [id number] 10730 Given 10/02/2017 Pneumococcal Conjugate-Pr evnar 13 62868 Given 10/02/2017 Influenza Vac, Split, Preservative Free High Dose Age 65 & > [id number] Given 08/14/2016 Influenza Virus Vaccine, Quadrivalent, Im Use [id number] 36853 Given 09/01/2015 Influenza Vac, Split, Preservative Free High Dose Age 65 & > [id number] 04026 Given 09/01/2015 Pneumococcal Conjugate-Pr evnar 13 [id number] 72118 Given 07/21/2014 Influenza Vac, Split, Preservative Free High Dose Age 65 & > [id number] U-FLU Given 07/21/2014 Influenza,Unspecified 79999 Given 01/31/2014 Pneumococcal Vaccine/Pneu movax 23 93243 Given 07/17/2013 Influenza Vac, Split, Preservative Free High Dose Age 65 & > [id number] 43476 Given 07/24/2012 Influenza Vac, Split, Preservative Free High Dose Age 65 & > [id number] 19507 Given 07/04/2011 Influenza Vac, Split, Preservative Free High Dose Age 65 & > [id number] 30796 Given 08/16/2010 Pneumococcal Vaccine/Pneu movax 23 [id number] 42800 Given 10/21/2009 Influenza Vac, Split 3 Yr s And Up [id number] 68224 Given 07/24/2008 Influenza Vac, Split 3 Yr s And Up U-FLU Given 07/22/2008 Influenza,Unspecified 11527 Given 10/27/2004 Influenza Vac, Split 3 Yr s And Up 27516 Given 07/22/2004 Pneumococcal Vaccine/Pneu movax 23 [id number] Refused 04/11/2023 Moderna Sars-Co v-2 (Covid-19) vaccine, 100 mcg/ 0.5 mL 12Y+ 29434 Refused 04/11/2023 Shingrix 69067 Refused 07/26/2021 Moderna Sars-Co v-2 (Covid-19) vaccine, 100 mcg/ 0.5 mL 12Y+ 92169 Refused 09/28/2020 Tdap (Tetanus, diphtheria & acel. pertussis) Adacel or Boostrix 36664 Refused 09/28/2020 Shingrix 69672 Refused 08/19/2020 Influenza Virus Vaccine, Quadrivalent, Im Use 03993 Refused 07/11/2016 Influenza Vac, Split, Preservative Free High Dose Age 65 & > Vital Signs Date Vital Result Comment 04/16/2023 9:29am BP Systolic 130 mmHg BP Diastolic 68 mmHg Body Temperature 97.8 F Heart Rate 76 /min Respiratory Rate 20 /min Weight 196.00 lb Weight 88.906 kg O2 % BldC Oximetry 99 % 04/11/2023 9:23am BP Systolic 128 mmHg BP Diastolic 66 mmHg Heart Rate 76 /min Respiratory Rate 18 /min Weight 202.00 lb Weight 91.627 kg Height 66 inches 5'6" BMI (Body Mass Index) 32.6 kg/m2 [place] Body Weight 142 lb Results Test Acquired Date Facility Test Result H/L Range N ote CBC W/Diff 04/16/2023 [facility]. [address] [place] [address] [phone] WBC 6.5 10^3/M3 3.1-9.2 RBC 3.57 10^6/M3 Low 4.00-5.80 HGB 10.0 GR/DL Low 12.5-17.5 HCT 31.3 % Low 37.5-52.5 MCV 87.7 CUMICR 82.6-95.8 MCH 27.9 PICOGR 27.9-32.9 MCHC 31.9 % Low 32.6-35.4 RDW 17.5 % High 11.4-14.6 PLT 263 10^3/M3 140-350 MPV 7.5 CUMICR 7.0-10.6 %Neut 71.5 % 40.0-75.0 %Lymph 6.1 % Low 17.0-45.0 %[place] 11.1 % High 1.0-11.0 %Eos 10.6 % High 0.0-6.0 %Baso 0.7 % 0.0-2.0 #Neut 4.7 10^3/M3 1.5-8.0 #Lymph 0.4 10^3/M3 Low 0.8-3.2 #[place] 0.7 10^3/M3 0.0-0.8 #Eos 0.7 10^3/m3 High 0.0-0.4 #[place] 0.0 10^3/m3 0.0-0.2 Laboratory test finding 04/16/2023 [facility]. [address] [place] [address] [phone] Uric Acid 5.3 mg/dL 2.5-7.5 R.A. Factor <10.0 IU/mL 0.0-20.0 Raina NEGATIVE Sed Rate 37 High 0-15 Lyme Disease AB W/RFX To Blot (Igg,Igm) 04/16/[address] [facility] [place] [address] [phone] Lyme AB Screen <0.90 index Normal 1 Laboratory test finding 04/16/[address] [facility] [place] [address] [phone] Clinical PDF Report [id number] SEE IMAGE Microalbumin Urine 04/11/2023 [facility]. [address] [place] [address] [phone] Urine Creat 74 mg/dL Comment Microalbumin 7.8 mg/dL High 0.0-1.8 2 ug/mgCREATININE 105 ug/mg High 0-29 CBC W/Diff 04/04/2023 [facility]. 1 [place] [address] [phone] WBC 6.1 10^3/M3 3.1-9.2 RBC 3.34 10^6/M3 Low 4.00-5.80 HGB 9.4 GR/DL Low 12.5-17.5 HCT 29.3 % Low 37.5-52.5 MCV 88.0 CUMICR 82.6-95.8 MCH 28.3 PICOGR 27.9-32.9 MCHC 32.2 % Low 32.6-35.4 RDW 16.5 % High 11.4-14.6 PLT 285 10^3/M3 140-350 MPV 7.9 CUMICR 7.0-10.6 %Neut 68.7 % 40.0-75.0 %Lymph 7.8 % Low 17.0-45.0 %[place] 9.3 % 1.0-11.0 %Eos 13.1 % High 0.0-6.0 %Baso 1.1 % 0.0-2.0 #Neut 4.2 10^3/M3 1.5-8.0 #Lymph 0.5 10^3/M3 Low 0.8-3.2 #[place] 0.6 10^3/M3 0.0-0.8 #Eos 0.8 10^3/m3 High 0.0-0.4 #Baso 0.1 10^3/m3 0.0-0.2 Comp. Met 04/04/2023 [facility]. 1 [place] [address] [phone] Glucose 116 mg/dL High 70-110 BUN 45 [...] GFR 24 ML/MIN/1.73SQM Low >60 Hba1c 04/04/2023 [facility] [address] [place] [address] [phone] A1c 5.70 % 4.70-6.50 3 Laboratory test finding 04/04/2023 [facility] [address] [place] [address] [phone] Ferritin 50.30 ng/mL 22.00-415.0 Iron Panel(Medcom) 04/04/2023 [facility] [address] [place] [address] [phone] Iron 33 g /dL Low 45-140 % Saturation 11 % Low 30-35 Lipid 04/04/2023 [facility] 1 [place], [place] [id number] [phone] Cholesterol 121 mg/dL 0-200 4 Triglyceride 71 mg/dL 0-150 5 HDLD 38 mg/dL See Comment 6 Measured LDL 70 mg/dL 0-130 7 Calc VLDL 14.2 mg/dL See Comment 8 Chol/HDL 3.2 RATIO See Comment 9 Non-HDL 83 mg/dL See Comment 10 Laboratory test finding 04/04/2023 [facility] [address] [place] [address] [phone] TSH 2.51 uIU/mL 0.50-6.00 FRT4 0.79 ng/dL 0.75-1.54 Tibc 04/04/2023 [facility] 1 [place], [place] [id number] [phone] Tibc 297 g /dL 260-400 Transferrin 212 mg/dL 200-400 Urine Isolate#1 03/19/2023 [facility] [address] [place] [address] [phone] Isolate #1 Enterococcus mar <SEE NOTE> 11 Ampicillin >8 R Ciprofloxacin >2 R Levofloxacin >4 R Linezolid <=2 S Nitrofurantoin <=32 S Penicillin >8 R Rifampim >2 R Tetracycline >8 R Vancomycin >16 R Urinalysis 03/19/2023 [facility] 1 [place], [place] [id number] [phone] Color LIGHT-YELLOW Appearance CLEAR Clear Spec.Grav. 1.010 1.005-1.025 Leukocytes LARGE Abnormal Negative Nitrite NEGATIVE Negative PH 6.0 6.0-7.5 Protein TRACE Abnormal Negative Urine Glucose NEGATIVE Negative Ketone NEGATIVE Negative Urobilinogen NORMAL E.U./DL Normal Bilirubin NEGATIVE Negative Blood NEGATIVE Negative WBC-U TNTC /HPF Abnormal 0-5/HPF RBC-U 3-5 /HPF 0-5/HPF Bacteria 1+ Abnormal None Seen Squamous 0-2 /HPF 0-5/HPF Laboratory test finding 03/19/2023 [facility] [address] [place] [address] [phone] BNP 904.0 pg/mL Critical high 0.0-100.0 BMP 03/19/2023 [facility] [address] [place] [address] [phone] Glucose 132 mg/dL High 70-110 BUN 43 mg/dL High 6-25 Creatinine 3.1 mg/dL Critical high 0.7-1.3 12 Sodium 141 mEq/L 135-145 Potassium 4.0 mEq/L 3.5-5.0 Chloride 105 mEq/L 95-107 Co-2 22 mEq/L Low 24-31 Calcium 9.1 mg/dL 8.5-10.6 GFR 21 ML/MIN/1.73SQM Low >60 Urine Culture 03/19/2023 [facility] [address] [place] [address] [phone] Urine Source URINE Total Col Count >100,000 COL/CC Laboratory test finding 03/19/2023 [facility] (In Office Test) Sars Rna QL PCR - In Office Not Detected. CBC W/Diff 03/19/2023 [facility] [address] [place] [address] [phone] WBC 6.3 10^3/M3 3.1-9.2 RBC 3.06 10^6/M3 Low 4.00-5.80 HGB 9.0 GR/DL Low 12.5-17.5 HCT 29.4 % Low 37.5-52.5 MCV 95.8 CUMICR 82.6-95.8 MCH 29.4 PICOGR 27.9-32.9 MCHC 30.7 % Low 32.6-35.4 RDW 17.6 % High 11.4-14.6 PLT 266 10^3/M3 140-350 MPV 8.2 CUMICR 7.0-10.6 %Neut 76.3 % High 40.0-75.0 %Lymph 7.3 % Low 17.0-45.0 %[place] 8.7 % 1.0-11.0 %Eos 7.0 % High 0.0-6.0 %Baso 0.7 % 0.0-2.0 #Neut 4.8 10^3/M3 1.5-8.0 #Lymph 0.5 10^3/M3 Low 0.8-3.2 #[place] 0.5 10^3/M3 0.0-0.8 #Eos 0.4 10^3/m3 0.0-0.4 #Baso 0.0 10^3/m3 0.0-0.2 Renal Panel 02/28/2023 [facility]. 1 [place], [place] [address] [phone] Glucose 96 mg/dL 70-110 13 BUN 56 mg/dL High 6-25 Creatinine 2.9 mg/dL High 0.7-1.3 Sodium 142 mEq/L 135-145 Potassium 4.4 mEq/L 3.5-5.0 Chloride 109 mEq/L High 95-107 Co-2 23 mEq/L Low 24-31 Calcium 8.4 mg/dL Low 8.5-10.6 Phosphorus 3.3 mg/dL 2.5-4.8 Albumin 3.5 g/dL 3.0-5.2 GFR 22 Low >60 Laboratory test finding 02/28/2023 [facility] 1 [place], [place] [address] [phone] Vitd-25Oh 46 ng/mL 30-100 CBC No Diff 02/28/2023 [facility]. 1 [place], [place] [address] [phone] WBC 5.9 10^3/M3 3.1-9.2 RBC 2.90 10^6/M3 Low 4.00-5.80 HGB 8.6 GR/DL Low 12.5-17.5 HCT 27.9 % Low 37.5-52.5 MCV 96.3 CUMICR High 82.6-95.8 MCH 29.6 PICOGR 27.9-32.9 MCHC 30.8 % Low 32.6-35.4 RDW 18.5 % High 11.4-14.6 PLT 238 10^3/M3 140-350 MPV 8.0 CUMICR 7.0-10.6 BMP 02/13/2023 [facility] [address] [place] [address] [phone] Glucose 99 mg/dL 70-110 14, 15 BUN 59 mg/dL High 6-25 Creatinine 3.0 mg/dL High 0.7-1.3 Sodium 142 mEq/L 135-145 Potassium 3.8 mEq/L 3.5-5.0 Chloride 106 mEq/L 95-107 Co-2 27 mEq/L 24-31 Calcium 9.0 mg/dL 8.5-10.6 GFR 22 Low >60 Laboratory test finding 02/13/2023 [facility] [address] [place] [address] [phone] BNP 490.0 pg/mL Critical high 0.0-100.0 16 H & H 02/13/2023 [facility] [address] [place] [address] [phone] HGB 9.9 GR/DL Low 12.5-17.5 HCT 30.6 % Low 37.5-52.5 Laboratory test finding 02/13/2023 [facility] [address] [place] [address] [phone] Magnesium 2.1 mg/dL 1.7-2.8 Renal Panel 02/05/2023 [facility] [address] [place] [address] [phone] Glucose 104 mg/dL 70-110 17 BUN 42 mg/dL High 6-25 Creatinine 3.0 mg/dL High 0.7-1.3 Sodium 150 mEq/L High 135-145 Potassium 4.9 mEq/L 3.5-5.0 Chloride 114 mEq/L High 95-107 Co-2 25 mEq/L 24-31 Calcium 8.9 mg/dL 8.5-10.6 Phosphorus 3.7 mg/dL 2.5-4.8 Albumin 3.8 g/dL 3.0-5.2 GFR 22 Low >60 CBC No Diff 02/05/2023 [facility] [address] [place] [address] [phone] WBC 5.1 10 3.1-9.2 RBC 3.28 10 Low 4.00-5.80 HGB 9.6 GR/DL Low 12.5-17.5 HCT 30.9 % Low 37.5-52.5 MCV 94.4 CUMICR 82.6-95.8 MCH 29.3 PICOGR 27.9-32.9 MCHC 31.1 % Low 32.6-35.4 RDW 17.8 % High 11.4-14.6 PLT 195 10 140-350 MPV 8.2 CUMICR 7.0-10.6 Laboratory test finding 02/05/2023 [facility] [address] [place] [address] [phone] Vitd-25Oh 38 ng/mL 30-100 Renal Panel 11/09/2022 [facility] [address] [place] [address] [phone] Glucose 96 mg/dL 70-110 18 BUN 50 mg/dL High 6-25 Creatinine 3.4 mg/dL Critical high 0.7-1.3 19 Sodium 141 mEq/L 135-145 Potassium 4.5 mEq/L 3.5-5.0 Chloride 108 mEq/L High 95-107 Co-2 21 mEq/L Low 24-31 Calcium 8.9 mg/dL 8.5-10.6 Phosphorus 4.3 mg/dL 2.5-4.8 Albumin 3.7 g/dL 3.0-5.2 GFR 19 Low >60 Laboratory test finding 11/09/2022 [facility] [address] [place] [address] [phone] Ferritin 64.20 ng/mL 22.00-415.0 CBC No Diff 11/09/2022 [facility] 1 [place], [place] [address] [phone] WBC 7.2 10 3.1-9.2 RBC 3.66 10 Low 4.00-5.80 HGB 11.3 GR/DL Low 12.5-17.5 HCT 35.1 % Low 37.5-52.5 MCV 96.0 CUMICR High 82.6-95.8 MCH 30.9 PICOGR 27.9-32.9 MCHC 32.2 % Low 32.6-35.4 RDW 16.7 % High 11.4-14.6 PLT 243 10 140-350 MPV 7.7 CUMICR 7.0-10.6 Iron Panel(Medcom) 11/09/2022 [facility]. [address] [place], [place] [address] [phone] Iron 80 g /dL 45-140 20 % Saturation 24 % Low 30-35 Tibc 11/09/2022 [facility]. 1 [place], [place] [address] [phone] Tibc 337 g /dL 260-400 Transferrin 241 mg/dL 200-400 1 Index Interpretation ----- < 0.90 Negative [...] when erythema migrans is apparent. 2 *[facility] [employer] [employer] USES MICROALBUMIN/CREATINE RATIO : [...] CALLED TO TANK JACKSON @ 12:10. 03/20/23 MH 13 REPORT FAXED TO DOCT OR, REQUESTED ON REQUISITION.03/01/23 LM 14 Please fax results t o Litzy Baez PA-C [phone] F- [phone] REPORT FAXED TO DOCT OR, REQUESTED ON REQUISITION.02/14/23 LM 16 CRITICAL RESULTS LUCI IFIED, FAXED, AND CALLED TO LASHON HENRY @ 4:09. 02/13/23 MH 17 REPORT FAXED TO DOCT OR, REQUESTED ON REQUISITION. 02.06.23 ESEQUIEL 18 Fax to [phone] [facility] P: [phone] 19 CRITICAL RESULTS LUCI IFIED, FAXED, AND CALLED TO AMANDA AT 4:50 PM ON 11/09/22 ALB 20 REPORT FAXED TO DOCT OR, REQUESTED ON REQUISITION.11/10/22 LM Procedures Date Code Description Status 05/04/2023 1111F D/C Medications Reconciled W/Current Medications In Outpt MR Completed 04/16/2023 56033 Pulse Oximetry Single Determ ination Completed 04/16/2023 55801 Venipuncture Routine Complet ed 04/11/2023 75479 Fundus Eye Exam Completed 04/11/2023 3725F Screening Depression Perform ed Completed 04/11/2023 3288F Fall Risk Assessment Documen awais Completed 04/11/2023 3078F PVRP Diastolic BP <80 mmHg C ompleted 04/11/2023 3074F PVRP Systolic BP <130 mmHg C ompleted 04/11/2023 1100F PT Screened Futu re Fall Risk >/=2 Falls In Past Yr/1 W/Injury Completed 04/04/2023 72086 Venipuncture Routine Complet ed 03/19/2023 86676 Venipuncture Routine Complet ed 02/28/2023 54224 Venipuncture Routine Complet ed 02/13/2023 96918 Venipuncture Routine Complet ed 01/15/2023 1111F D/C Medications Reconciled W/Current Medications In Outpt MR Completed 01/12/2023 1111F D/C Medications Reconciled W/Current Medications In Outpt MR Completed 11/09/2022 46152 Venipuncture Routine Complet ed Medical Devices Description No Information Available Encounters Type Date Location Provider Dx Diagnosis Office Visit 04/16/2023 9:15a Kylie Atkinson JR, [...] diabetic nephropathy Office Visit 03/19/2023 1:00p Kylie Brown acht, DO R06.02 Shortness of breath Office Visit 01/15/2023 11:00a Kylie Watkins op, PA-C N40.1 Benign prostatic hyperplasia with lower urinary tract symp A41.50 Gram-negative sepsis , unspecified Assessments Date Code Description Provider 04/16/2023 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 Matilda Atkinson JR, DO 04/16/2023 R05.9 Cough, unspecified Matilda Atkinson JR, DO 04/11/2023 Z00.01 Encounter for [facility] adult medical examination with abnormal findings Matilda [...] hyperp arathyroidism of renal origin Lab - [place] 04/04/2023 E78.00 Pure hypercholesterolemia, u nspecified Matilda Atkinson JR, DO 04/04/2023 E78.00 Pure hypercholesterolemia, u nspecified Lab - [place] 04/04/2023 E88.81 Metabolic syndrome Matilda Atkinson JR, [...] Acute kidney failure, unspec ified Lab - [place] 02/28/2023 E55.9 Vitamin D deficiency, unspec ified Matilda Atkinson JR, DO 02/28/2023 E55.9 Vitamin D deficiency, unspec ified Lab - [place] 02/28/2023 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, stag e 4 (severe) Matilda Atkinson JR, DO 02/28/2023 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, stag e 4 (severe) Lab - [place] 02/13/2023 I50.9 Heart failure, unspecified K dusty Atkinson JR, DO 02/13/2023 I50.9 Heart failure, unspecified L ab - [place] 02/13/2023 E11.21 Type 2 diabetes mellitus with diabetic nephropathy Matilda Atkinson JR, DO 02/05/2023 N17.9 Acute kidney failure, unspec ified Matilda Atkinson JR, DO 02/05/2023 N17.9 Acute kidney failure, unspec ified Lab - [place] 02/05/2023 E55.9 Vitamin D deficiency, unspec ified Matilda Atkinson JR, DO 02/05/2023 E55.9 Vitamin D deficiency, unspec ified Lab - [place] 02/05/2023 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, stag e 4 (severe) Matilda Atkinson JR, DO 02/05/2023 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, stag e 4 (severe) Lab - [place] 01/15/2023 N40.1 Benign prostatic hyperplasia with lower urinary tract symptoms Pierre Costa PA-C 01/15/2023 A41.50 Gram-negative sepsis, unspec ified RASHAWN Flood[facility] 11/09/2022 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, stag e 4 (severe) Matilda Atkinson JR, DO 11/09/2022 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, stag e 4 (severe) Lab - [place] 11/09/2022 D64.9 Anemia, unspecified Matilda Atkinson JR, DO 11/09/2022 D64.9 Anemia, unspecified [place] Plan of Treatment Future Appointment(s):* 05/10/2023 9:00 am - Matilda Atkinson JR DO at [place] * 07/11/2023 6:30 am - [facility] [place] [facility] [place] * 07/17/2023 11:00 am - Matilda Atkinson JR DO at [place] 04/16/2023 - Matilda Atkinson JR DO* 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
--- OUTSIDE RECORDS SUMMARY | 2023-08-21 23:51 | External Medical Summary ---
Author Name Unknown Address Unknown Organization K1C:[facility] [address] [place] [address] Laboratory Report Ordering Provider Test Date Status DEMETRIO GREY 05/10/2023 09:33 Final Observation Date Value Abnormality Reference (Units ) Status WBC 05/10/2023 15:21 9.1 3.1-9.2 (10^3 /M3) Final RBC 05/10/2023 15:21 3.86 Below low normal 4.00-5 .80 (10^6/M3) Final Hemoglobin 05/10/2023 15:21 10.9 Below low normal 12.5- 17.5 (GR/DL) Final HCT 05/10/2023 15:21 34.5 Below low normal 37.5-5 2.5 (%) Final MCV 05/10/2023 15:21 89.2 82.6-95.8 (CU MICR) Final MCH 05/10/2023 15:21 28.1 27.9-32.9 (PI CO GR) Final MCHC 05/10/2023 15:21 31.6 Below low normal 32.6-3 5.4 (%) Final RDW 05/10/2023 15:21 18.8 Above high normal 11.4- 14.6 (%) Final PLT 05/10/2023 15:21 284 140-350 (10^3 /M3) Final MPV 05/10/2023 15:21 7.7 7.0-10.6 (CU MICR) Final Performing Location [facility] [address] [place] [address]
--- OUTSIDE RECORDS SUMMARY | 2023-08-21 23:51 | External Medical Summary ---
Author Name Unknown Address Unknown Organization K1C:[facility] [address] [place] [address] Laboratory Report Ordering Provider Test Date Status DEMETRIO GREY 05/10/2023 09:33 Final Observation Date Value Abnormality Reference (Units ) Status Glucose 05/10/2023 16:00 98 70-110 (MG/DL ) Final BUN 05/10/2023 16:00 45 Above high normal 6-25 (MG/DL) Final Creatinine 05/10/2023 16:00 3.0 Above high normal 0.7- 1.3 (MG/DL) Final Sodium 05/10/2023 16:00 141 135-145 (MEQ/ L) Final Potassium 05/10/2023 16:00 4.5 3.5-5.0 (MEQ/ L) Final Cl 05/10/2023 16:00 105 95-107 (MEQ/L ) Final CO2 05/10/2023 16:00 23 Below low normal 24-31 (MEQ/L) Final Calcium 05/10/2023 16:00 8.5 8.5-10.6 (MG/ DL) Final GFR (estimated) 05/10/2023 16:00 22 Below low normal >60 (ML/MIN/1.73 SQM) Final Performing Location [facility] [address] [place] [address]
--- OUTSIDE RECORDS SUMMARY | 2023-08-21 23:52 | External Medical Summary ---
Author Name Unknown Address Unknown Organization K1F:[facility] - [address] [place] [address] Laboratory Report Ordering Provider Test Date Status DOUGLAS REYES 04/29/2023 11:56:19 Final Observation Date Value Abnormality Reference (Units ) Status Lactic Acid 04/29/2023 11:56:19 1.4 0.4-2.0 (mmol/L) Final Performing Location [facility] - [address] [place] [address]
--- OUTSIDE RECORDS SUMMARY | 2023-08-21 23:52 | External Medical Summary ---
Author Name Unknown Address Unknown Organization K1F:[facility] - [address] [place] [address] Laboratory Report Ordering Provider Test Date Status DOUGLAS REYES 04/29/2023 11:56:35 Final Observation Date Value Abnormality Reference (Units ) Status Body temperature 04/29/2023 11:56:35 37.0 (C) Final pH of Arterial blood 04/29/2023 11:56:35 7.431 7.350-7.450 (units) Final Carbon dioxide [Partial pressure] in Arterial blood 04/29/2023 11:56:35 28.3 Below low normal 35.0-45.0 (mmHg) Final Oxygen [Partial pressure] in Arterial blood 04/29/2023 11:56:35 90.6 75.0-100.0 (mmHg) Final Base excess, Arterial 04/29/2023 11:56:35 -4.6 Below low normal -2.0-2.0 (mmol/L) Final Hemoglobin [Mass/volume] in Blood by Oximetry 04/29/2023 11:56:35 9.3 Below low normal 14.0-16.8 (g/dL) Final Oxyhemoglobin, Arterial (FO2HB) 04/29/2023 11:56:35 95.3 94.0-99.0 (% total Hgb) Final Carboxyhemoglobin 04/29/2023 11:56:35 1.8 Above high normal <=1.5 (% total Hgb) Final Smokers: 0-9.0 % Methemoglobin 04/29/2023 11:56:35 0.6 <= 1.5 (% total Hgb) Final Deoxyhemoglobin/Hemoglo bin.total in Arterial blood 04/29/2023 11:56:35 2.3 0.0-5.0 (% total Hgb) Final Oxygen content in Arterial blood 04/29/2023 11:56:35 12.5 Below low normal 15.0-24.0 (%vol) Final Oxygen/Inspired gas setting [Volume Fraction] Ventilator 04/29/2023 11:56:35 35 (%) Final 14 bipap O2 FLOW, ARTERIAL - [facility] 04/29/2023 11:56:35 Not Provided (L/min) Final Bicarbonate, Venous, POC (i-STAT) 04/29/2023 11:56:35 18.5 Below low normal 23.0-31.0 (mmol/L) Final Performing Location [facility] - [address] [place], [place] [address] [address]
--- OUTSIDE RECORDS SUMMARY | 2023-08-21 23:52 | External Medical Summary | Continuity of Care Document ---
Author Name MATILDA ATKINSON DO Address [address] [place] [address] [place] [address] Phone [phone] Organization [place] Address [address] [place] [address] RD, [place] [address] Phone [phone] Care Team Providers Care Yarn Finisher Name Role Phone GI - Gastroenterology Care Team Information Rece Fermín Harrell MD Care Team Information Receiv er [phone] Rory Hodge Care Team Information Conservation Enforcement Officer [phone] Nixon Aden MD Care Team Information Conservation Enforcement Officer [phone] Abran Eugene JR - Interven tional Pain Medicine Care Team Information Conservation Enforcement Officer [phone] Medardo Trinidad MD Care Team Information Receive r [phone] Sinan Marks MD Care Team Information Receive r [phone] Problems Active Problems Provider Date Chronic kidney [...] Atkinson JR, DO On set: 09/01/2015 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 Extras 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 Poly JR, DO 08/24/2021 Citalopram Bpzkimupzkde68ir Tablets Take One (1) Tablet By Mouth Every Day 90tabs F33.1 Matilda Atkinson JR, DO 06/23/2019 Gnmszakebnk9be Tablets Take One Tablet By Mouth Once Daily 30tabs Matilda Atkinson JR, DO 11/12/2017 Oxycodone-Acetaminophe n7.5-325mg Tablets take one tablet every 6 h as needed pain--ongoing therapy 60tabs Matilda Atkinson JR, DO 01/22/2014 Atorvastatin Vbohutk03sv Tablets Take One Tablet By Mouth AT Bedtime 90tabs E78.0 Matilda Atkinson JR, DO E78.00 Rttdet08792Onul/ML Solution 40,000 units monthly Unknown Albuterol Sulfate SNO627(90B ase) mcg/Act Aerosol 2 puffs by mouth every 4-6 hours as needed wheezing Unknown Eipmvkfvjs33nr Tablets 1 by mouth twice a day 180tabs Unknown Pantoprazole Zvuqvl06jg Tabl ets DR 1 by mouth every day Unknown 000 Vtyrrur0lx Tablets 1 by mouth twice a day Unknown Bumetanide0.5mg Tablets 1 or 2 by mouth every day as needed Unknown Tamsulosin HCL0.4mg Capsules 1 by mouth every day Unknown History Medications Nitrofurantoin Monohyd Tyukh215bj Capsules take 1 capsule twice daily for 10 days 20caps Gisella Lisa MD, PhD 03/23/2023 - 04/10/2023 Wudwneqmou269db Tablets take 1 tab by mouth twice a day x 14 days 28tabs Matilda Atkinson JR, DO 01/10/2023 - 01/29/2023 Medications Administered in Office Medication SIG Qnty Indications Ordering Provider Date Rocephin Inj 250 MGInjection Chata Mcbride MD 09/01/2020 Injection Methylprednisolone Acetate 20 MGInjection Jordan Tao 11/16/2017 Rocephin Inj 250 MGInjection Matilda Atkinson JR, DO 02/15/2010 Influ A (H1N1) VaccineInjection Matilda BerriosJerardo Atkinson JR, DO 10/21/2009 Immunizations CPT Code Status Date Vaccine Lot # [id number] Given 10/04/2022 Influenza Vaccine High Do se 0.5ML [id number] U-FLU Given 10/04/2022 Influenza,Unspecified 06233 Given 08/11/2020 Influenza Vacci ne-Administered at another facility U-FLU Given 08/11/2020 Influenza,Unspecified U-FLU Given 08/23/2019 Influenza,Unspecified 04950 Given 08/23/2019 Influenza Vacci ne-Administered at another facility 85322 Given 07/11/2018 Influenza Vac, Split, Preservative Free High Dose Age 65 & > [id number] 08205 Given 10/02/2017 Pneumococcal Conjugate-Pr evnar 13 46318 Given 10/02/2017 Influenza Vac, Split, Preservative Free High Dose Age 65 & > 82992 Given 08/14/2016 Influenza Virus Vaccine, Quadrivalent, Im Use [id number] 24086 Given 09/01/2015 Influenza Vac, Split, Preservative Free High Dose Age 65 & > [id number] 72983 Given 09/01/2015 Pneumococcal Conjugate-Pr evnar 13 [id number] 13992 Given 07/21/2014 Influenza Vac, Split, Preservative Free High Dose Age 65 & > [id number] U-FLU Given 07/21/2014 Influenza,Unspecified 45436 Given 01/31/2014 Pneumococcal Vaccine/Pneu movax 23 45620 Given 07/17/2013 Influenza Vac, Split, Preservative Free High Dose Age 65 & > [id number] 11001 Given 07/24/2012 Influenza Vac, Split, Preservative Free High Dose Age 65 & > [id number] 53456 Given 07/04/2011 Influenza Vac, Split, Preservative Free High Dose Age 65 & > [id number] 10556 Given 08/16/2010 Pneumococcal Vaccine/Pneu movax 23 [id number] 84159 Given 10/21/2009 Influenza Vac, Split 3 Yr s And Up [id number] 55003 Given 07/24/2008 Influenza Vac, Split 3 Yr s And Up U-FLU Given 07/22/2008 Influenza,Unspecified 25512 Given 10/27/2004 Influenza Vac, Split 3 Yr s And Up 41673 Given 07/22/2004 Pneumococcal Vaccine/Pneu movax 23 60753 Refused 04/11/2023 Moderna Sars-Co v-2 (Covid-19) vaccine, 100 mcg/ 0.5 mL 12Y+ 22964 Refused 04/11/2023 Shingrix 41916 Refused 07/26/2021 Moderna Sars-Co v-2 (Covid-19) vaccine, 100 mcg/ 0.5 mL 12Y+ 78012 Refused 09/28/2020 Tdap (Tetanus, diphtheria & acel. pertussis) Adacel or Boostrix 73173 Refused 09/28/2020 Shingrix 00940 Refused 08/19/2020 Influenza Virus Vaccine, Quadrivalent, Im Use 65093 Refused 07/11/2016 Influenza Vac, Split, Preservative Free [...] 5'6" BMI (Body Mass Index) 32.6 kg/m2 [place] Body Weight 142 lb Results Test Acquired Date Facility Test Result H/L Range N ote CBC W/Diff 04/16/2023 [facility] [address] [place] [address] [phone] WBC 6.5 10^3/M3 3.1-9.2 RBC 3.57 10^6/M3 Low 4.00-5.80 HGB 10.0 GR/DL Low 12.5-17.5 HCT 31.3 % Low 37.5-52.5 MCV 87.7 CUMICR 82.6-95.8 MCH 27.9 PICOGR 27.9-32.9 MCHC 31.9 % Low 32.6-35.4 RDW 17.5 % High 11.4-14.6 PLT 263 10^3/M3 140-350 MPV 7.5 CUMICR 7.0-10.6 %Neut 71.5 % 40.0-75.0 %Lymph 6.1 % Low 17.0-45.0 %Ransom 11.1 % High 1.0-11.0 %Eos 10.6 % High 0.0-6.0 %Baso 0.7 % 0.0-2.0 #Neut 4.7 10^3/M3 1.5-8.0 #Lymph 0.4 10^3/M3 Low 0.8-3.2 #Ransom 0.7 10^3/M3 0.0-0.8 #Eos 0.7 10^3/m3 High 0.0-0.4 #Baso 0.0 10^3/m3 0.0-0.2 Laboratory test finding 04/16/2023 [facility] [address] [place] [address] [phone] Uric Acid 5.3 mg/dL 2.5-7.5 R.A. Factor <10.0 IU/mL 0.0-20.0 Raina NEGATIVE Sed Rate 37 High 0-15 Lyme Disease AB W/RFX To Blot (Igg,Igm) 04/16/[address] [facility] [place] [address] [phone] Lyme AB Screen <0.90 index Normal 1 Laboratory test finding 04/16/[address] [facility] [place] [address] [phone] Clinical PDF Report [id number] SEE IMAGE Microalbumin Urine 04/11/2023 [facility] [address] [place] [address] [phone] Urine Creat 74 mg/dL Comment Microalbumin 7.8 mg/dL High 0.0-1.8 2 ug/mgCREATININE 105 ug/mg High 0-29 CBC W/Diff 04/04/2023 [facility] [address] [place] [address] [phone] WBC 6.1 10^3/M3 3.1-9.2 RBC 3.34 10^6/M3 Low 4.00-5.80 HGB 9.4 GR/DL Low 12.5-17.5 HCT 29.3 % Low 37.5-52.5 MCV 88.0 CUMICR 82.6-95.8 MCH 28.3 PICOGR 27.9-32.9 MCHC 32.2 % Low 32.6-35.4 RDW 16.5 % High 11.4-14.6 PLT 285 10^3/M3 140-350 MPV 7.9 CUMICR 7.0-10.6 %Neut 68.7 % 40.0-75.0 %Lymph 7.8 % Low 17.0-45.0 %Ransom 9.3 % 1.0-11.0 %Eos 13.1 % High 0.0-6.0 %Baso 1.1 % 0.0-2.0 #Neut 4.2 10^3/M3 1.5-8.0 #Lymph 0.5 10^3/M3 Low 0.8-3.2 #Ransom 0.6 10^3/M3 0.0-0.8 #Eos 0.8 10^3/m3 High 0.0-0.4 #Baso 0.1 10^3/m3 0.0-0.2 Comp. Met 04/04/2023 [facility] [address] [place] [address] [phone] Glucose 116 mg/dL High 70-110 BUN 45 [...] 24 ML/MIN/1.73SQM Low >60 Hba1c 04/04/2023 [facility] [address] [place] [address] [phone] A1c 5.70 % 4.70-6.50 3 Laboratory test finding 04/04/2023 [facility] [address] [place] [address] [phone] Ferritin 50.30 ng/mL 22.00-415.0 Iron Panel([facility]) 04/04/2023 [facility] [address] [place] [address] [phone] Iron 33 g /dL Low 45-140 % Saturation 11 % Low 30-35 Lipid 04/04/2023 [facility] [address] [place] [address] [phone] Cholesterol 121 mg/dL 0-200 4 Triglyceride 71 mg/dL 0-150 5 HDLD 38 mg/dL See Comment 6 Measured LDL 70 mg/dL 0-130 7 Calc VLDL 14.2 mg/dL See Comment 8 Chol/HDL 3.2 RATIO See Comment 9 Non-HDL 83 mg/dL See Comment 10 Laboratory test finding 04/04/2023 [facility] [address] [place] [address] [phone] TSH 2.51 uIU/mL 0.50-6.00 FRT4 0.79 ng/dL 0.75-1.54 Tibc 04/04/2023 [facility] [address] [place], [place] [phone] Tibc 297 g /dL 260-400 Transferrin 212 mg/dL 200-400 Urine Isolate#1 03/19/2023 [facility] [address] [place] [address] [phone] Isolate #1 Enterococcus mar <SEE NOTE> 11 Ampicillin >8 R Ciprofloxacin >2 R Levofloxacin >4 R Linezolid <=2 S Nitrofurantoin <=32 S Penicillin >8 R Rifampim >2 R Tetracycline >8 R Vancomycin >16 R Urinalysis 03/19/2023 [facility] [address] [place] [address] [phone] Color LIGHT-YELLOW Appearance CLEAR Clear Spec.Grav. 1.010 1.005-1.025 Leukocytes LARGE Abnormal Negative Nitrite NEGATIVE Negative PH 6.0 6.0-7.5 Protein TRACE Abnormal Negative Urine Glucose NEGATIVE Negative Ketone NEGATIVE Negative Urobilinogen NORMAL E.U./DL Normal Bilirubin NEGATIVE Negative Blood NEGATIVE Negative WBC-U TNTC /HPF Abnormal 0-5/HPF RBC-U 3-5 /HPF 0-5/HPF Bacteria 1+ Abnormal None Seen Squamous 0-2 /HPF 0-5/HPF Laboratory test finding 03/19/2023 [facility] [address] [place] [address] [phone] BNP 904.0 pg/mL Critical high 0.0-100.0 BMP 03/19/2023 [facility] [address] [place] [address] [phone] Glucose 132 mg/dL High 70-110 BUN 43 mg/dL High 6-25 Creatinine 3.1 mg/dL Critical high 0.7-1.3 12 Sodium 141 mEq/L 135-145 Potassium 4.0 mEq/L 3.5-5.0 Chloride 105 mEq/L 95-107 Co-2 22 mEq/L Low 24-31 Calcium 9.1 mg/dL 8.5-10.6 GFR 21 ML/MIN/1.73SQM Low >60 Urine Culture 03/19/2023 [facility] [address] [place] [address] [phone] Urine Source URINE Total Col Count >100,000 COL/CC Laboratory test finding 03/19/2023 [facility] (In Office Test) Sars Rna QL PCR - In Office Not Detected. CBC W/Diff 03/19/2023 [facility] [address] [place], [place] [phone] WBC 6.3 10^3/M3 3.1-9.2 RBC 3.06 10^6/M3 Low 4.00-5.80 HGB 9.0 GR/DL Low 12.5-17.5 HCT 29.4 % Low 37.5-52.5 MCV 95.8 CUMICR 82.6-95.8 MCH 29.4 PICOGR 27.9-32.9 MCHC 30.7 % Low 32.6-35.4 RDW 17.6 % High 11.4-14.6 PLT 266 10^3/M3 140-350 MPV 8.2 CUMICR 7.0-10.6 %Neut 76.3 % High 40.0-75.0 %Lymph 7.3 % Low 17.0-45.0 %Ransom 8.7 % 1.0-11.0 %Eos 7.0 % High 0.0-6.0 %Baso 0.7 % 0.0-2.0 #Neut 4.8 10^3/M3 1.5-8.0 #Lymph 0.5 10^3/M3 Low 0.8-3.2 #Ransom 0.5 10^3/M3 0.0-0.8 #Eos 0.4 10^3/m3 0.0-0.4 #Baso 0.0 10^3/m3 0.0-0.2 Renal Panel 02/28/2023 [facility] [address] [place], [place] [phone] Glucose 96 mg/dL 70-110 13 BUN 56 mg/dL High 6-25 Creatinine 2.9 mg/dL High 0.7-1.3 Sodium 142 mEq/L 135-145 Potassium 4.4 mEq/L 3.5-5.0 Chloride 109 mEq/L High 95-107 Co-2 23 mEq/L Low 24-31 Calcium 8.4 mg/dL Low 8.5-10.6 Phosphorus 3.3 mg/dL 2.5-4.8 Albumin 3.5 g/dL 3.0-5.2 GFR 22 Low >60 Laboratory test finding 02/28/2023 [facility] [address] [place] [address] [phone] Vitd-25Oh 46 ng/mL 30-100 CBC No Diff 02/28/2023 [facility] [address] [place] [address] [phone] WBC 5.9 10^3/M3 3.1-9.2 RBC 2.90 10^6/M3 Low 4.00-5.80 HGB 8.6 GR/DL Low 12.5-17.5 HCT 27.9 % Low 37.5-52.5 MCV 96.3 CUMICR High 82.6-95.8 MCH 29.6 PICOGR 27.9-32.9 MCHC 30.8 % Low 32.6-35.4 RDW 18.5 % High 11.4-14.6 PLT 238 10^3/M3 140-350 MPV 8.0 CUMICR 7.0-10.6 BMP 02/13/2023 [facility] [address] [place] [address] [phone] Glucose 99 mg/dL 70-110 14, 15 BUN 59 mg/dL High 6-25 Creatinine 3.0 mg/dL High 0.7-1.3 Sodium 142 mEq/L 135-145 Potassium 3.8 mEq/L 3.5-5.0 Chloride 106 mEq/L 95-107 Co-2 27 mEq/L 24-31 Calcium 9.0 mg/dL 8.5-10.6 GFR 22 Low >60 Laboratory test finding 02/13/2023 [facility] [address] [place] [address] [phone] BNP 490.0 pg/mL Critical high 0.0-100.0 16 H & H 02/13/2023 [facility] [address] [place] [address] [phone] HGB 9.9 GR/DL Low 12.5-17.5 HCT 30.6 % Low 37.5-52.5 Laboratory test finding 02/13/2023 [facility] [address] [place] [address] [phone] Magnesium 2.1 mg/dL 1.7-2.8 Renal Panel 02/05/2023 [facility] [address] [place] [address] [phone] Glucose 104 mg/dL 70-110 17 BUN 42 mg/dL High 6-25 Creatinine 3.0 mg/dL High 0.7-1.3 Sodium 150 mEq/L High 135-145 Potassium 4.9 mEq/L 3.5-5.0 Chloride 114 mEq/L High 95-107 Co-2 25 mEq/L 24-31 Calcium 8.9 mg/dL 8.5-10.6 Phosphorus 3.7 mg/dL 2.5-4.8 Albumin 3.8 g/dL 3.0-5.2 GFR 22 Low >60 CBC No Diff 02/05/2023 [facility] [address] [place] [address] [phone] WBC 5.1 10 3.1-9.2 RBC 3.28 10 Low 4.00-5.80 HGB 9.6 GR/DL Low 12.5-17.5 HCT 30.9 % Low 37.5-52.5 MCV 94.4 CUMICR 82.6-95.8 MCH 29.3 PICOGR 27.9-32.9 MCHC 31.1 % Low 32.6-35.4 RDW 17.8 % High 11.4-14.6 PLT 195 10 140-350 MPV 8.2 CUMICR 7.0-10.6 Laboratory test finding 02/05/2023 [facility] [address] [place] [address] [phone] Vitd-25Oh 38 ng/mL 30-100 Renal Panel 11/09/2022 [facility] [address] [place] [address] [phone] Glucose 96 mg/dL 70-110 18 BUN 50 mg/dL High 6-25 Creatinine 3.4 mg/dL Critical high 0.7-1.3 19 Sodium 141 mEq/L 135-145 Potassium 4.5 mEq/L 3.5-5.0 Chloride 108 mEq/L High 95-107 Co-2 21 mEq/L Low 24-31 Calcium 8.9 mg/dL 8.5-10.6 Phosphorus 4.3 mg/dL 2.5-4.8 Albumin 3.7 g/dL 3.0-5.2 GFR 19 Low >60 Laboratory test finding 11/09/2022 [facility] [address] [place], [place] [address] [phone] Ferritin 64.20 ng/mL 22.00-415.0 CBC No Diff 11/09/2022 [facility] [address] [place] [address] [phone] WBC 7.2 10 3.1-9.2 RBC 3.66 10 Low 4.00-5.80 HGB 11.3 GR/DL Low 12.5-17.5 HCT 35.1 % Low 37.5-52.5 MCV 96.0 CUMICR High 82.6-95.8 MCH 30.9 PICOGR 27.9-32.9 MCHC 32.2 % Low 32.6-35.4 RDW 16.7 % High 11.4-14.6 PLT 243 10 140-350 MPV 7.7 CUMICR 7.0-10.6 Iron Panel([facility]) 11/09/2022 [facility] [address] [place], [place] [phone] Iron 80 g /dL 45-140 20 % Saturation 24 % Low 30-35 Tibc 11/09/2022 [facility] [address] [place], [place] [address] [phone] Tibc 337 g /dL 260-400 Transferrin 241 [...] when erythema migrans is apparent. [address] USES MICROALBUMIN/CREATINE RATIO : [...] fax results t o Litzy Baez PA-C [phone] F- [phone] REPORT FAXED TO DOCT OR, REQUESTED ON REQUISITION.02/14/23 LM 16 CRITICAL RESULTS LUCI IFIED, FAXED, AND CALLED TO LASHON HENRY @ 4:09. 02/13/23 MH 17 REPORT FAXED TO DOCT OR, REQUESTED ON REQUISITION. 02.06.23 ESEQUIEL 18 Fax to [phone] [facility] P: [phone] 19 CRITICAL RESULTS LUCI IFIED, FAXED, AND CALLED TO AMANDA AT 4:50 PM ON 11/09/22 ALB 20 REPORT FAXED TO DOCT OR, REQUESTED ON REQUISITION.11/10/22 LM Procedures Date Code Description Status 04/16/2023 10357 Pulse Oximetry Single Determ ination Completed 04/16/2023 36197 Venipuncture Routine Complet ed 04/11/2023 93223 Fundus Eye Exam Completed 04/11/2023 3725F Screening Depression Perform ed Completed 04/11/2023 3288F Fall Risk Assessment Documen awais Completed 04/11/2023 3078F PVRP Diastolic BP <80 mmHg C ompleted 04/11/2023 3074F PVRP Systolic BP <130 mmHg C ompleted 04/11/2023 1100F PT Screened Futu re Fall Risk >/=2 Falls In Past Yr/1 W/Injury Completed 04/04/2023 00393 Venipuncture Routine Complet ed 03/19/2023 98865 Venipuncture Routine Complet ed 02/28/2023 91376 Venipuncture Routine Complet ed 02/13/2023 16462 Venipuncture Routine Complet ed 01/15/2023 1111F D/C Medications Reconciled W/Current Medications In Outpt MR Completed 01/12/2023 1111F D/C Medications Reconciled W/Current Medications In Outpt MR Completed 11/09/2022 53990 Venipuncture Routine Complet ed Medical Devices Description [...] Atkinson JR, DO 04/11/2023 Z00.01 Encounter for [facility] adult medical examination with abnormal findings Matilda Atkinson JR, DO 04/11/2023 E11.22 Type 2 diabetes mellitus with diabetic chronic kidney disease Matilda Atknison JR, DO 04/11/2023 E11.51 Type 2 diabetes [...] pneumonitis due to other organic dusts Matilda Aktinson JR, DO 04/11/2023 N25.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 arathyroidism [...] hyperp arathyroidism of renal origin Lab - [place] 04/04/2023 E78.00 Pure hypercholesterolemia, u nspecified Matilda Atkinson JR, DO 04/04/2023 E78.00 Pure hypercholesterolemia, u nspecified Lab - [place] 04/04/2023 E88.81 Metabolic syndrome Matilda Atkinson JR, DO 04/04/2023 E88.81 Metabolic syndrome Lab - [place] 04/04/2023 D64.9 Anemia, unspecified Matilda Atkinson JR, DO 04/04/2023 E11.21 Type 2 diabetes mellitus with diabetic nephropathy Matilda Atkinson JR, DO 03/19/2023 R06.02 Shortness of breath Migel Ovalle Mariana menchacaerick, DO 02/28/2023 N17.9 Acute kidney failure, unspec ified Matilda Atkinson JR, DO 02/28/2023 N17.9 Acute kidney failure, unspec ified Lab - [place] 02/28/2023 E55.9 Vitamin D deficiency, unspec ified Matilda Atkinson JR, DO 02/28/2023 E55.9 Vitamin D deficiency, unspec ified Lab - [place] 02/28/2023 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, stag e 4 (severe) Matilda Atkinson JR, DO 02/28/2023 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, stag e 4 (severe) Lab - [place] 02/13/2023 I50.9 Heart failure, unspecified K dusty Atkinson JR, DO 02/13/2023 I50.9 Heart failure, unspecified L ab - [place] 02/13/2023 E11.21 Type 2 diabetes mellitus with diabetic nephropathy Matilda Atkinson JR, DO 02/05/2023 N17.9 Acute kidney failure, unspec ified Matilda Atkinson JR, DO 02/05/2023 N17.9 Acute kidney failure, unspec ified Lab - [place] 02/05/2023 E55.9 Vitamin D deficiency, unspec ified Matilda Atkinson JR, DO 02/05/2023 E55.9 Vitamin D deficiency, unspec ified Lab - [place] 02/05/2023 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, stag e 4 (severe) Matilda Atkinson JR, DO 02/05/2023 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, stag e 4 (severe) Lab - [place] 01/15/2023 N40.1 Benign prostatic hyperplasia with lower urinary tract symptoms Pierre Costa PA-C 01/15/2023 A41.50 Gram-negative sepsis, unspec ified Pierre Costa PA-C 11/09/2022 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, stag e 4 (severe) Matilda Atkinson JR, DO 11/09/2022 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, stag e 4 (severe) Lab - [place] 11/09/2022 D64.9 Anemia, unspecified Matilda Atkinson JR, DO 11/09/2022 D64.9 Anemia, unspecified Lab - [place] Plan of Treatment Future Appointment(s):* 07/11/2023 6:30 am - [facility] [place] [facility] [place] * 07/17/2023 11:00 am - Matilda Atkinson JR DO at [place] 04/16/2023 - Matilda Atkinson JR, DO* 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 * R05.9 Cough, unspecified Functional Status Description No Information Available Mental Status Description No Information Available Referrals Refer to Reason for Referral Status Appt Didi Silva [address] [place] [address] Dr Hunter 1 [phone]
--- OUTSIDE RECORDS SUMMARY | 2023-08-21 23:52 | External Medical Summary ---
Author Name Unknown Address Unknown Organization K1F:[facility] - [address] [place] [address] Laboratory Report Ordering Provider Test Date Status AMYDOUGLAS 04/29/2023 15:27:35 Final Observation Date Value Abnormality Reference (Units ) Status RBC, Urine 04/29/2023 15:27:35 50+ Abnormal 0-2 (/HPF) Final WBC, Urine 04/29/2023 15:27:35 50+ Abnormal 0-2 (/HPF) Final Bacteria [#/area] in Urine sediment by Microscopy high power field 04/29/2023 15:27:35 >200 Abnormal 0-25 (/HPF) Final Performing Location [facility] - [address] [place] [address]
--- OUTSIDE RECORDS SUMMARY | 2023-08-21 23:52 | External Medical Summary ---
Author Name Unknown Address Unknown Organization : Laboratory Report Ordering Provider Test Date Status MEDARDO ADAMSON 04/29/2023 15:27:35 Final Observation Date Value Abnormality Reference (Units ) Status Streptococcus pneumoniae Ag [Presence] in Urine 04/29/2023 15:27:35 Not Detected Not Detected Final
Test Performed at:
[facility]
[address] [facility]
[place] [address]
Parish Teresa M.D., Ph.D.,Director of Laboratories Performing Location
--- OUTSIDE RECORDS SUMMARY | 2023-08-21 23:52 | External Medical Summary ---
Author Name Unknown Address Unknown Organization K1F:[facility] - [address] [facility] [place] [address] Laboratory Report Ordering Provider Test Date Status DOUGLAS REYES 04/29/2023 11:55:42 Final ADMITTED patient Observation Date Value Abnormality Reference (Units ) Status Adenovirus DNA [Presence] in Nasopharynx by SUDHA with non-probe detection 04/29/2023 11:55:42 Negative Negative Final Human coronavirus 229E RNA [Presence] in Nasopharynx by SUDHA with non-probe detection 04/29/2023 11:55:42 Negative Negative Final Human coronavirus HKU1 RNA [Presence] in Nasopharynx by SUDHA with non-probe detection 04/29/2023 11:55:42 Negative Negative Final Human coronavirus NL63 RNA [Presence] in Nasopharynx by SUDHA with non-probe detection 04/29/2023 11:55:42 Negative Negative Final Human coronavirus OC43 RNA [Presence] in Nasopharynx by SUDHA with non-probe detection 04/29/2023 11:55:42 Negative Negative Final SARS-CoV-2 (COVID-19) RNA [Presence] in Nasopharynx by SUDHA with non-probe detection 04/29/2023 11:55:42 Negative Negative Final Human metapneumovirus RNA [Presence] in Nasopharynx by SUDHA with non-probe detection 04/29/2023 11:55:42 Negative Negative Final Rhinovirus+Enterovirus RNA [Presence] in Nasopharynx by SUDHA with non-probe detection 04/29/2023 11:55:42 Negative Negative Final Influenza virus A RNA [Presence] in Nasopharynx by SUDHA with non-probe detection 04/29/2023 11:55:42 Negative Negative Final Influenza virus B RNA [Presence] in Nasopharynx by SUDHA with non-probe detection 04/29/2023 11:55:42 Negative Negative Final Parainfluenza virus 1 RNA [Presence] in Nasopharynx by SUDHA with non-probe detection 04/29/2023 11:55:42 Negative Negative Final Parainfluenza virus 2 RNA [Presence] in Nasopharynx by SUDHA with non-probe detection 04/29/2023 11:55:42 Negative Negative Final Parainfluenza virus 3 RNA [Presence] in Nasopharynx by SUDHA with non-probe detection 04/29/2023 11:55:42 Negative Negative Final Parainfluenza virus 4 RNA [Presence] in Nasopharynx by SUDHA with non-probe detection 04/29/2023 11:55:42 Negative Negative Final Respiratory syncytial virus RNA [Presence] in Nasopharynx by [facility] with non-probe detection 04/29/2023 11:55:42 Negative Negative Final Bordetella pertussis.pertussis toxin promoter region [Presence] in Nasopharynx by [facility] with non-probe detection 04/29/2023 11:55:42 Negative Negative Final Chlamydophila pneumoniae DNA [Presence] in Nasopharynx by [facility] with non-probe detection 04/29/2023 11:55:42 Negative Negative Final Mycoplasma pneumoniae DNA [Presence] in Nasopharynx by [facility] with non-probe detection 04/29/2023 11:55:42 Negative Negative Final Bordetella parapertussis [id number] DNA [Presence] in Nasopharynx by [facility] with non-probe detection 04/29/2023 11:55:42 Negative Negative Final
The primers that detect Rhinovirus may cross react with some Enterorviruses. The validation of bronchial specimens, tracheal aspirates, and throats for this assay was developed and performance characteristics determined by [facility]. The validation of alternate specimen types has not been cleared or approved by the [place] Food and Drug Administration (FDA). It has been determined that such clearance or approval is not necessary. Performing Location [address] [place] [address]
--- OUTSIDE RECORDS SUMMARY | 2023-08-21 23:52 | External Medical Summary ---
Author Name Unknown Address Unknown Organization K1F:LABORATORY [facility] - [address] [place] [address] Laboratory Report Ordering Provider Test Date Status ROBBIE RONQUILLO 04/29/2023 17:28:00 Final Observation Date Value Abnormality Reference (Units ) Status Lactic Acid 04/29/2023 17:28:00 0.8 0.4-2.0 (mmol/L) Final Performing Location LABORATORY [facility] - [address] [place] [address]
--- OUTSIDE RECORDS SUMMARY | 2023-08-21 23:52 | External Medical Summary ---
Author Name Unknown Address Unknown Organization K1F:LABORATORY [facility] - [address] [place] [address] Laboratory Report Ordering Provider Test Date Status DOUGLAS REYES 04/29/2023 11:56:19 Final Observation Date Value Abnormality Reference (Units ) Status BUN 04/29/2023 11:56:19 46 Above high normal 6-20 (mg/dL) Final Creatinine 04/29/2023 11:56:19 2.9 Above high normal 0.6-1.2 (mg/dL) Final Glomerular filtration rate/1.73 sq M.predicted [Volume Rate/Area] in Serum, Plasma or Blood by Creatinine-based formula (CKD-EPI) 04/29/2023 11:56:19 21 Below low normal >=60 (mL/min) Final eGFR is calculated based on the CKD-EPI 2020 equation SODIUM 04/29/2023 11:56:19 135 135-146 (m mol/L) Final Potassium 04/29/2023 11:56:19 5.2 Above high normal 3. 5-5.1 (mmol/L) Final Cl 04/29/2023 11:56:19 105 98-107 (mm ol/L) Final CO2 04/29/2023 11:56:19 19 Below low normal 22- 32 (mmol/L) Final Anion gap 04/29/2023 11:56:19 11 7-15 (mmol /L) Final Glucose 04/29/2023 11:56:19 163 Above high normal 70 -120 (mg/dL) Final Calcium 04/29/2023 11:56:19 8.6 8.4-10.2 ( mg/dL) Final Performing Location LABORATORY [facility] - [address] [place] [address]
--- OUTSIDE RECORDS SUMMARY | 2023-08-21 23:52 | External Medical Summary | Summary of Care ---
Author Name Unknown Organization [facility] Address [address] [place] [address] Phone [phone] Care Team Providers Care Belt And Link Assembly Supervisor Name Role Phone Poly Basilio DO, Kenneth Primary Care Provider [phone] Reason for Visit * Reason Comments IV Therapy Venofer Encounter Details Date Type Department Care Team Description 04/25/2023 Hem/Onc Treatment Hematology/Oncology Treatment, [facility] [address] [place] [address] [facility], Chair5 Hem Onc [address] [place] [address] Anemia, unspecified type* Allergies No known active allergiesdocumented as of this encounter (statuses as of 04/25/2023) Medications Medication Sig Dispensed Refills Start Date End Date Status ASPIRIN 81 MG PO TABS 1 tablet daily 0 Active PLAVIX 75 MG PO TABS 1 tablet daily 0 Active CALCIUM + D 600-200 MG-UNIT PO TABS 1 tablet daily 0 Activ e NEURONTIN 300 MG PO CAPS 1 daily 0 Active atorvaSTATin (LIPITOR) 80 MG Tablet 1 Tablet. 0 Active traMADol (ULTRAM) 50 MG Tablet 50 mg. 0 Active sodium bicarbonate 650 MG Tablet 650 mg. 0 Active Vitamin D, Ergocalciferol, 53243 units Capsule 50,000 Units. 0 Active Ondansetron HCl 4 MG Oral Tablet 4 mg. 0 Active finasteride (PROSCAR) 5 MG Tablet 1 Tablet. 0 Active citalopram (CELEXA) 40 MG Tablet 1 Tablet. 0 Active oxyCODONE-Acetaminophe n 7.5-325 MG Oral Tablet 0 Active pantoprazole (PROTONIX) 40 MG TBEC 40 mg. 0 Act vicente dilTIAZem CD (CARDIZEM CD) 180 MG CP24 extended release capsule Take 1 Cap by mouth daily. 30 Cap 0 04/12/2019 Active Vitron-C 65-125 MG Oral Tablet (Iron-Vitamin C) Take 2 Tablets by mouth in the morning. 0 Active documented as of this encounter (statuses as of 04/25/2023) Active Problems Problem Noted Date Anemia 06/20/2022 Moderate malnutrition 04/11/2019 Febrile neutropenia 04/10/2019 Sepsis 04/10/2019 CAD (coronary artery disease) 04/10/2019 CKD (chronic kidney disease) 04/10/2019 Lymphoma 04/10/2019 PVD (peripheral vascular disease) 2018 HTN (hypertension) 04/10/2019 HLD (hyperlipidemia) 04/10/2019 ADVANCE DIRECTIVE INFORMATION 06/07/2009 Overview: No, Advance Directive brochure offered , patient declined. documented as of this encounter (statuses as of 04/25/2023) Immunizations Name Administration Dates Next Due Pneumococcal [...] Encounters Date Type Specialty Care Team Description 05/01/2023 Hem/Onc Treatment Hematology Oncology [facility], Chair6 Hem Onc [address] [address] 05/09/2023 Hem/Onc Treatment Hematology Oncology [facility], Chair3 Hem Onc [address] [address] Health Maintenance Due Date Last Done Comments COVID-19 Vaccine (#1) 1950 Depression Screening, Annual for Pts 12 and Over 1957 Hepatitis C Screening 1963 DTaP,Tdap,and Td Vaccines (1 - Tdap) 02/07/1964 Zoster Vaccines (1 of 2) 02/07/1964 Pneumococcal Vaccine: 65+ Years (2 - PCV) 07/22/2005 07/22/2004 Influenza Vaccine (FLU shot) (#1) 2023 10/04/2022, 07/11/2018, 10/02/2017, Additional history exists GFR 04/04/2024 04/04/2023, 03/08, 02/28/2023, Additional history exists Albumin/Creatinine Ratio 04/11/2026 04/11/2023, 01/2022 GARDASIL-HPV IMMUNIZATION SERIES Aged Out No longer [...] ONCE PRN Other, Hypersensitivity Reaction, Starting on Sun04/25/23 at 1156, Until Lora 04/26/23 at 1155, For 24 hours EPINEPHrine 1 MG/ML inj 0.3 mg 0.3 mg, Intramuscular, ONCE PRN Other, Hypersensitivity Reaction or Anaphylaxis, Starting on Sun04/25/23 at 1156, Until Lora 04/26/23 at 1155, For 24 hours hEParin 100 UNIT/ML Lock Flush inj 500 Units 500 Units (5 mL), IV Lock, PRN Other, IV Flush, Starting on Sun04/25/23 at 1156, Until Lora 04/26/23 at 1155, For 24 hours, Do not flush if lock, PICC, or central line not in place; IV infusing or unable to flush. Hydrocortisone Sod Suc (PF) (Solu-Cortef) inj 100 mg 100 mg, IV Push, ONCE PRN Other, Hypersensitivity Reaction, Starting on Sun04/25/23 at 1156, Until Lora 04/26/23 at 1155, For 24 hours NSS infusion 500 mL, Intravenous, at 50 mL/hr, CONTINUOUS, Starting on Sun04/25/23 at 1300, Until Sun04/25/23 at 2259 Start Infusion 04/25/2023 11:57 AM EDT 500 mL 50 mL/hr oxygen GAS Inhalation, OXYGEN, First dose on Sun04/25/23 at 1600, Until Discontinued, Device/Managed by: Low Flow Device, [...] Push, PRN Other, IV Flush, Starting on Sun04/25/23 at 1156, Until Sun04/26/23 at 1155, For 24 hours, Do not flush if [...] 11:59 AM EDT 300 mg 166.67 mL/hr documented in this encounter Advance Directives Latest Code Status on File Code Status Date Activated Date Inactivated Comments Full Code 04/10/2019 5:17 PM 04/12/2019 4:18 PM This or noemi reflects the patients wishes and were consensually agreed upon. Question Answer Comments Discussion of Advance Directives occurred with: Not Discussed Does the patient have a Living Will? No Does the patient have Health Care Power of Entry Specialist? No Care Teams Belt And Link Assembly Supervisor Relationship Specialty Start Date End Date Vinod Pang Jr., DO [address] [facility] [place] [address] PCP - General 04/26/09 documented as of this encounter
--- OUTSIDE RECORDS SUMMARY | 2023-08-21 23:52 | External Medical Summary ---
Author Name Unknown Address Unknown Organization K1F:LABORATORY [facility] - [address] [facility] [address] [place] [address] Laboratory Report Ordering Provider Test Date Status AJIT RESENDIZ 04/30/2023 11:14:02 Final Observation Date Value Abnormality Reference (Units ) Status Body temperature 04/30/2023 11:14:02 37.0 (C) Final pH of Arterial blood 04/30/2023 11:14:02 7.468 Above high normal 7.350-7.450 (units) Final Carbon dioxide [Partial pressure] in Arterial blood 04/30/2023 11:14:02 26.0 Below low normal 35.0-45.0 (mmHg) Final Oxygen [Partial pressure] in Arterial blood 04/30/2023 11:14:02 151.0 Above high normal 75.0-100.0 (mmHg) Final Base excess, Arterial 04/30/2023 11:14:02 -3.8 Below low normal -2.0-2.0 (mmol/L) Final Hemoglobin [Mass/volume] in Blood by Oximetry 04/30/2023 11:14:02 9.2 Below low normal 14.0-16.8 (g/dL) Final Oxyhemoglobin, Arterial (FO2HB) 04/30/2023 11:14:02 97.4 94.0-99.0 (% total Hgb) Final Carboxyhemoglobin 04/30/2023 11:14:02 1.8 Above high normal <=1.5 (% total Hgb) Final Smokers: 0-9.0 % Methemoglobin 04/30/2023 11:14:02 0.5 <= 1.5 (% total Hgb) Final Deoxyhemoglobin/Hemoglo bin.total in Arterial blood 04/30/2023 11:14:02 0.3 0.0-5.0 (% total Hgb) Final Oxygen content in Arterial blood 04/30/2023 11:14:02 12.9 Below low normal 15.0-24.0 (%vol) Final Oxygen/Inspired gas setting [Volume Fraction] Ventilator 04/30/2023 11:14:02 30% (%) Final avaps O2 FLOW, ARTERIAL - [facility] 04/30/2023 11:14:02 Not Provided (L/min) Final Bicarbonate, Venous, POC (i-STAT) 04/30/2023 11:14:02 18.6 Below low normal 23.0-31.0 (mmol/L) Final Performing Location LABORATORY [facility] - [address] [place], [place] [address] [address]
--- OUTSIDE RECORDS SUMMARY | 2023-08-21 23:52 | External Medical Summary ---
Author Name Unknown Address Unknown Organization K1F:LABORATORY [facility] - [address] [place] [address] Laboratory Report Ordering Provider Test Date Status DOUGLAS REYES 04/29/2023 15:27:35 Final Observation Date Value Abnormality Reference (Units ) Status Color of Urine by Auto 04/29/2023 15:27:35 Brown Abnormal Light Yellow, Yellow, Dark Yellow Final Clarity, Urine 04/29/2023 15:27:35 Slightly Cloudy Abnormal Clear Final Glucose [Mass/volume] in Urine by Automated test strip 04/29/2023 15:27:35 Negative Negative (mg/dL) Final Bilirubin.total [Presence] in Urine by Automated test strip 04/29/2023 15:27:35 Negative Negative Final Ketones [Mass/volume] in Urine by Automated test strip 04/29/2023 15:27:35 Negative Negative (mg/dL) Final Specific gravity, Urine 04/29/2023 15:27:35 1.008 1.003-1.030 Final Hemoglobin [Presence] in Urine by Automated test strip 04/29/2023 15:27:35 Large Abnormal Negative Final pH, Urine 04/29/2023 15:27:35 5.5 5.0-7.5 (Units) Final Protein [Mass/volume] in Urine by Automated test strip 04/29/2023 15:27:35 100 Abnormal Negative (mg/dL) Final Urobilinogen [Mass/volume] in Urine by Automated test strip 04/29/2023 15:27:35 0.2 0.2, 1.0 (mg/dL) Final Nitrite [Presence] in Urine by Automated test strip 04/29/2023 15:27:35 Negative Negative Final Leukocyte esterase [Presence] in Urine by Automated test strip 04/29/2023 15:27:35 Large Abnormal Negative Final Performing Location LABORATORY [facility] - [address] [facility] [place] [address]
--- OUTSIDE RECORDS SUMMARY | 2023-08-21 23:52 | External Medical Summary ---
Author Name Unknown Address Unknown Organization K1F:LABORATORY [facility] - [address] [place] [address] Laboratory Report Ordering Provider Test Date Status DOUGLAS REYES 04/29/2023 11:56:19 Final Exclude Heart Failure: <300 pg/mL
Diagnose Heart Failure:
Age <50 yr: >450 pg/mL
50-75 yr: >900 pg/mL
>75 yr: >1800 pg/mL
GFR is 30-59 mL/min: >1200 pg/mL or Age- adjusted values
GFR <30 mL/min: do not use, not reliable

Prognostic threshold: 1000 pg/mL Observation Date Value Abnormality Reference (Units ) Status BNP, Pro-hormone 04/29/2023 11:56:19 [address] Above high no rmal <300 (pg/mL) Final Performing Location LABORATORY [facility] - [address] [place] [address]
--- OUTSIDE RECORDS SUMMARY | 2023-08-21 23:52 | External Medical Summary ---
Author Name Unknown Address Unknown Organization K1F:LABORATORY [facility] - [address] [place] [address] Laboratory Report Ordering Provider Test Date Status MEDARDO ADAMSON 04/29/2023 11:56:19 Final Less than 0.5 ng/mL: Low ris k for progression to sepsis. Review patients condition for localized infections.

0.5 to 2.0 ng/mL: Intermediate risk for progresion to sepsis. Review underlying conditions. Recommend repeat PCT after 6 hours has elapsed.

Greater than 2.0 ng/mL: high risk for progression to sepsis unless other causes are known. Observation Date Value Abnormality Reference (Units ) Status Procalcitonin [Mass/volume] in Serum or Plasma by Immunoassay 04/29/2023 11:56:19 0.75 Above high normal <0.10 (ng/mL) Final Performing Location LABORATORY [facility] - [address] [place] [address]
--- OUTSIDE RECORDS SUMMARY | 2023-08-21 23:52 | External Medical Summary ---
Author Name Unknown Address Unknown Organization K1F:LABORATORY [facility] - [address] [place] [address] Laboratory Report Ordering Provider Test Date Status DOUGLAS REYES 04/29/2023 11:56:19 Final Observation Date Value Abnormality Reference (Units ) Status Albumin 04/29/2023 11:56:19 3.1 Below low normal 3.8-5.0 (g/dL) Final AST (Aspartate aminotransferase) 04/29/2023 11:56:19 11 10-50 (U/L) Final Alk Phos 04/29/2023 11:56:19 54 35-130 (U/L) Final ALT (Alanine aminotransferase) 04/29/2023 11:56:19 11 10-50 (U/L) Final Bilirubin, Total 04/29/2023 11:56:19 0.5 <=1.2 (mg/dL) Final Bilirubin, Direct 04/29/2023 11:56:19 <0.2 0.0-0.3 (mg/dL) Final Protein 04/29/2023 11:56:19 6.3 6.0-8.3 (g/dL) Final Performing Location LABORATORY [facility] - [address] [place] [address]
--- OUTSIDE RECORDS SUMMARY | 2023-08-21 23:52 | External Medical Summary ---
Author Name Unknown Address Unknown Organization K1F:LABORATORY [facility] - [address] [place] [address] Laboratory Report Ordering Provider Test Date Status MEDARDO ADAMSON 05/01/2023 17:51:00 Final Observation Date Value Abnormality Reference (Units ) Status BUN 05/01/2023 17:51:00 65 Above high normal 6-20 (mg/dL) Final Creatinine 05/01/2023 17:51:00 3.5 Above high normal 0.6-1.2 (mg/dL) Final Glomerular filtration rate/1.73 sq M.predicted [Volume Rate/Area] in Serum, Plasma or Blood by Creatinine-based formula (CKD-EPI) 05/01/2023 17:51:00 17 Below low normal >=60 (mL/min) Final eGFR is calculated based on the CKD-EPI 2020 equation SODIUM 05/01/2023 17:51:00 142 135-146 (m mol/L) Final Potassium 05/01/2023 17:51:00 4.1 3.5-5.1 (m mol/L) Final Cl 05/01/2023 17:51:00 104 98-107 (mm ol/L) Final CO2 05/01/2023 17:51:00 28 22-32 (mmo l/L) Final Anion gap 05/01/2023 17:51:00 10 7-15 (mmol /L) Final Glucose 05/01/2023 17:51:00 95 70-120 (mg /dL) Final Calcium 05/01/2023 17:51:00 9.2 8.4-10.2 ( mg/dL) Final Performing Location LABORATORY [facility] - [address] [place] [address]
--- OUTSIDE RECORDS SUMMARY | 2023-08-21 23:52 | External Medical Summary ---
Author Name Unknown Address Unknown Organization : Laboratory Report Ordering Provider Test Date Status ROSEMARIE RIVAS 04/30/2023 11:50:04 Final Observation Date Value Abnormality Reference (Units ) Status Glucose Point of Care 04/30/2023 11:50:04 114 70-120 (mg/dL) Final Performing Location
--- OUTSIDE RECORDS SUMMARY | 2023-08-21 23:52 | External Medical Summary ---
Author Name Unknown Address Unknown Organization : Laboratory Report Ordering Provider Test Date Status ROSEMARIE RIVAS 04/30/2023 08:04:33 Final Observation Date Value Abnormality Reference (Units ) Status Glucose Point of Care 04/30/2023 08:04:33 133 Above high normal 70-120 (mg/dL) Final Performing Location
--- OUTSIDE RECORDS SUMMARY | 2023-08-21 23:52 | External Medical Summary ---
Author Name Unknown Address Unknown Organization K1F:LABORATORY [facility] - [address] [place] [address] Laboratory Report Ordering Provider Test Date Status ROBBIE RONQUILLO 04/29/2023 17:28:00 Final Observation Date Value Abnormality Reference (Units ) Status Calcium.ionized [Moles/volume] in Serum or Plasma by Ion-selective membrane electrode (ISE) 04/29/2023 17:28:00 1.23 1.13-1.32 (mmol/L) Final This test was developed and its performance characteristics dtermined by [employer]. It has not been cleared or approved by the [place] Food and Drug Administration Performing Location LABORATORY [facility] - [address] [place] [address]
--- OUTSIDE RECORDS SUMMARY | 2023-08-21 23:52 | External Medical Summary ---
Author Name Unknown Address Unknown Organization K01:LABORATORY [facility] [place] - [address] [place] [address] Laboratory Report Ordering Provider Test Date Status MEDARDO ADAMSON 04/29/2023 11:56:19 Final Observation Date Value Abnormality Reference (Units ) Status HbA1C 04/29/2023 11:56:19 5.7 Above high normal 4. 0-5.6 (%) Final The use of HbA1c to monitor glycemic status is based on normal hemoglobin and HbA composition. This test should not be used in patients with abnormal hemoglobin that affects the half life of the red blood cell or the in vivo glycation rates. Glucose, estimated average 04/29/2023 11:56:19 117 <126 (mg/dL) Final Performing Location LABORATORY [facility] [place] - [address] [place] [address]
--- OUTSIDE RECORDS SUMMARY | 2023-08-21 23:52 | External Medical Summary ---
Author Name Unknown Address Unknown Organization K1F:LABORATORY [facility] - [facility] [place] [address] Laboratory Report Ordering Provider Test Date Status MEDARDO ADAMSON 05/02/2023 05:06:00 Final Observation Date Value Abnormality Reference (Units ) Status WBC, Total 05/02/2023 05:06:00 7.21 4.00-10.80 (K/uL) Final RBC 05/02/2023 05:06:00 3.75 4.50-5.25 (M/uL) Final Hemoglobin 05/02/2023 05:06:00 10.7 Below low normal 14.0-16.8 (g/dL) Final HCT 05/02/2023 05:06:00 33.9 Below low normal 40.0-48.4 (%) Final MCV 05/02/2023 05:06:00 90.4 82.0-99.5 (fL) Final MCH 05/02/2023 05:06:00 28.5 27.0-34.0 (pg) Final MCHC 05/02/2023 05:06:00 31.6 32.0-36.0 (g/dL) Final RDW 05/02/2023 05:06:00 16.5 11.5-15.5 (%) Final Platelets 05/02/2023 05:06:00 282 140-400 (K/uL) Final MPV 05/02/2023 05:06:00 10.0 6.6-11.1 (fL) Final Nucleated erythrocytes/100 leukocytes [Ratio] in Blood by Automated count 05/02/2023 05:06:00 0 <=0 (/100 WBCs) Final Performing Location LABORATORY [facility] - [address] [place] [address]
--- OUTSIDE RECORDS SUMMARY | 2023-08-21 23:52 | External Medical Summary ---
Author Name Unknown Address Unknown Organization K1F:LABORATORY [facility] - [address] [place] [address] Laboratory Report Ordering Provider Test Date Status MEDARDO ADAMSON 04/30/2023 07:02:00 Final Observation Date Value Abnormality Reference (Units ) Status BUN 04/30/2023 07:02:00 55 Above high normal 6-20 (mg/dL) Final Creatinine 04/30/2023 07:02:00 3.4 Above high normal 0.6-1.2 (mg/dL) Final Glomerular filtration rate/1.73 sq M.predicted [Volume Rate/Area] in Serum, Plasma or Blood by Creatinine-based formula (CKD-EPI) 04/30/2023 07:02:00 18 Below low normal >=60 (mL/min) Final eGFR is calculated based on the CKD-EPI 2020 equation SODIUM 04/30/2023 07:02:00 141 135-146 (m mol/L) Final Potassium 04/30/2023 07:02:00 4.6 3.5-5.1 (m mol/L) Final Cl 04/30/2023 07:02:00 107 98-107 (mm ol/L) Final CO2 04/30/2023 07:02:00 22 22-32 (mmo l/L) Final Anion gap 04/30/2023 07:02:00 12 7-15 (mmol /L) Final Glucose 04/30/2023 07:02:00 160 Above high normal 70 -120 (mg/dL) Final Calcium 04/30/2023 07:02:00 8.5 8.4-10.2 ( mg/dL) Final Performing Location LABORATORY [facility] - [address] [place] [address]
--- OUTSIDE RECORDS SUMMARY | 2023-08-21 23:52 | External Medical Summary ---
Author Name Unknown Address Unknown Organization K01:LABORATORY [facility] - [address] [place] [address] Laboratory Report Ordering Provider Test Date Status MEDARDO ADAMSON 04/29/2023 15:27:35 Final Observation Date Value Abnormality Reference (Units ) Status Legionella pneumophila 1 Ag [Presence] in Urine 04/29/2023 15:27:35 Negative Negative Final Presumptive negative for L. pneumophila serogroup 1 antigens. A negative result does not rule out the possibility of Legionella infection due to other serogroups or species of Legionella. Performing Location LABORATORY [facility] - [address] [place] [address]
--- OUTSIDE RECORDS SUMMARY | 2023-08-21 23:52 | External Medical Summary ---
Author Name Unknown Address Unknown Organization K1F:LABORATORY [facility] - [address] [place] [address] Laboratory Report Ordering Provider Test Date Status DOUGLAS REYES 04/29/2023 11:56:19 Final Observation Date Value Abnormality Reference (Units ) Status Troponin T 04/29/2023 11:56:19 51 Above high normal < =22 (ng/L) Final Performing Location LABORATORY [facility] - [address] [place] [address]
--- OUTSIDE RECORDS SUMMARY | 2023-08-21 23:52 | External Medical Summary ---
Author Name Unknown Address Unknown Organization K1F:LABORATORY [facility] - [address] [place] [address] Laboratory Report Ordering Provider Test Date Status DOUGLAS REYES 04/29/2023 11:56:19 Final Observation Date Value Abnormality Reference (Units ) Status SYNC LEUKOCYTES IN BLOOD BY AUTOMATED COUNT 04/29/2023 11:56:19 9.56 4.00-10.80 (K/uL) Final Segs 04/29/2023 11:56:19 91.6 Above high normal 40.0-75.0 (%) Final Lymphs % 04/29/2023 11:56:19 2.5 Below low normal 18.0-42.0 (%) Final Monos 04/29/2023 11:56:19 4.6 1.0-11.0 (%) Final Eosinophils 04/29/2023 11:56:19 0.6 0.0-6.0 (%) Final Basos 04/29/2023 11:56:19 0.3 0.0-2.0 (%) Final Immature Granulocyte, Percent 04/29/2023 11:56:19 0.4 0.0-2.0 (%) Final Absolute Segs 04/29/2023 11:56:19 8.75 Above high normal 1.80-7.70 (K/uL) Final Lymphs, absolute 04/29/2023 11:56:19 0.24 Below low normal 1.00-4.80 (K/ul) Final Monos, Abs 04/29/2023 11:56:19 0.44 0.00-1.10 (K/uL) Final Eos, Abs 04/29/2023 11:56:19 0.06 0.00-0.70 (K/uL) Final Basos, Abs 04/29/2023 11:56:19 0.03 0.00-0.20 (K/uL) Final Immature Granulocytes, Number 04/29/2023 11:56:19 0.04 0.00-0.20 (K/uL) Final Performing Location LABORATORY [place] [address] [place] [address]
--- OUTSIDE RECORDS SUMMARY | 2023-08-21 23:52 | External Medical Summary ---
Author Name Unknown Address Unknown Organization K01:LABORATORY [facility] - [address] [place] [address] Laboratory Report Ordering Provider Test Date Status MEDARDO ADAMSON 04/29/2023 15:27:35 Final Observation Date Value Abnormality Reference (Units) Status Bacteria identified in Unspecified specimen by Culture 04/29/2023 15:27:35 No significant growth Final Test: Culture, Urine, Quanti tative
Specimen Source: Urine, Clean Catch
Specimen Type: Urine
Specimen Date: 04/29/2023 3:27 PM
Result Date: 04/30/2023 5:05 PM
Result Status: Final result
Resulting Lab: LABORATORY [facility]
[address]
[place] [address]

CULTURE

No significant growth

null Performing Location LABORATORY [facility] - [address] [facility] [address]
--- OUTSIDE RECORDS SUMMARY | 2023-08-21 23:52 | External Medical Summary ---
Author Name Unknown Address Unknown Organization K1F:LABORATORY [facility] - [address] [place] [address] Laboratory Report Ordering Provider Test Date Status ROSEMARIE RIVAS 04/30/2023 12:51:52 Final Observation Date Value Abnormality Reference (Units ) Status Body temperature 04/30/2023 12:51:52 37.0 (C) Final pH of Arterial blood 04/30/2023 12:51:52 7.336 Below low normal 7.350-7.450 (units) Final Carbon dioxide [Partial pressure] in Arterial blood 04/30/2023 12:51:52 39.4 35.0-45.0 (mmHg) Final Oxygen [Partial pressure] in Arterial blood 04/30/2023 12:51:52 93.1 75.0-100.0 (mmHg) Final Base excess, Arterial 04/30/2023 12:51:52 -4.4 Below low normal -2.0-2.0 (mmol/L) Final Hemoglobin [Mass/volume] in Blood by Oximetry 04/30/2023 12:51:52 9.0 Below low normal 14.0-16.8 (g/dL) Final Oxyhemoglobin, Arterial (FO2HB) 04/30/2023 12:51:52 95.4 94.0-99.0 (% total Hgb) Final Carboxyhemoglobin 04/30/2023 12:51:52 1.5 <=1.5 (% total Hgb) Final Smokers: 0-9.0 % Methemoglobin 04/30/2023 12:51:52 0.5 <=1.5 (% total Hgb) Final Deoxyhemoglobin/Hemog lobin.total in Arterial blood 04/30/2023 12:51:52 2.6 0.0-5.0 (% total Hgb) Final Oxygen content in Arterial blood 04/30/2023 12:51:52 12.2 Below low normal 15.0-24.0 (%vol) Final Oxygen/Inspired gas setting [Volume Fraction] Ventilator 04/30/2023 12:51:52 Not Provided (%) Final O2 FLOW, ARTERIAL - [facility] 04/30/2023 12:51:52 4 (L/min) Final Bicarbonate, Venous, POC (i-STAT) 04/30/2023 12:51:52 20.5 Below low normal 23.0-31.0 (mmol/L) Final Performing Location LABORATORY [facility] - [address] [place] [address]
--- OUTSIDE RECORDS SUMMARY | 2023-08-21 23:52 | External Medical Summary ---
Author Name Unknown Address Unknown Organization K1F:LABORATORY [facility] - [address] [place] [address] Laboratory Report Ordering Provider Test Date Status MEDARDO ADAMSON 05/01/2023 05:29:00 Final Observation Date Value Abnormality Reference (Units ) Status Vancomycin, level 05/01/2023 05:29:00 31.1 10 .0-40.0 (ug/mL) Final Performing Location LABORATORY [facility] - [address] [place] [address]
--- OUTSIDE RECORDS SUMMARY | 2023-08-21 23:52 | External Medical Summary ---
Author Name Unknown Address Unknown Organization K1F:LABORATORY [address] [place] [address] Laboratory Report Ordering Provider Test Date Status DOUGLAS REYES 04/29/2023 11:56:19 Final Observation Date Value Abnormality Reference (Units ) Status Bacteria identified in Unspecified specimen by Culture 04/29/2023 11:56:19 No growth Final Test: Culture, Blood (Site 2 )
Specimen Source: Blood, Venous
Specimen Type: Blood
Specimen Date: 04/29/2023 11:56 AM
Result Date: 05/04/2023 1:01 PM
Result Status: Final result
Resulting Lab: LABORATORY [facility]
[address] [place] [address]
[place] [address]

CULTURE

No growth

null Performing Location LABORATORY [facility] - [address] [place] [address] [address] [place] [address]
--- OUTSIDE RECORDS SUMMARY | 2023-08-21 23:52 | External Medical Summary ---
Author Name Unknown Address Unknown Organization K1F:LABORATORY [facility] - [address] [place] [address] Laboratory Report Ordering Provider Test Date Status MEDARDO ADAMSON 05/01/2023 05:29:00 Final Observation Date Value Abnormality Reference (Units ) Status BUN 05/01/2023 05:29:00 64 Above high normal 6-20 (mg/dL) Final Creatinine 05/01/2023 05:29:00 3.6 Above high normal 0.6-1.2 (mg/dL) Final Glomerular filtration rate/1.73 sq M.predicted [Volume Rate/Area] in Serum, Plasma or Blood by Creatinine-based formula (CKD-EPI) 05/01/2023 05:29:00 17 Below low normal >=60 (mL/min) Final eGFR is calculated based on the CKD-EPI 2020 equation SODIUM 05/01/2023 05:29:00 141 135-146 (m mol/L) Final Potassium 05/01/2023 05:29:00 4.2 3.5-5.1 (m mol/L) Final Cl 05/01/2023 05:29:00 106 98-107 (mm ol/L) Final CO2 05/01/2023 05:29:00 25 22-32 (mmo l/L) Final Anion gap 05/01/2023 05:29:00 10 7-15 (mmol /L) Final Glucose 05/01/2023 05:29:00 103 70-120 (mg /dL) Final Calcium 05/01/2023 05:29:00 8.6 8.4-10.2 ( mg/dL) Final Performing Location LABORATORY [facility] - [address] [place] [address]
--- OUTSIDE RECORDS SUMMARY | 2023-08-21 23:52 | External Medical Summary ---
Author Name Unknown Address Unknown Organization K1F:LABORATORY [facility] - [facility] [place] [address] Laboratory Report Ordering Provider Test Date Status DOUGLAS REYES 04/29/2023 11:56:19 Final Observation Date Value Abnormality Reference (Units ) Status WBC, Total 04/29/2023 11:56:19 9.56 4.00-10.80 (K/uL) Final RBC 04/29/2023 11:56:19 3.46 4.50-5.25 (M/uL) Final Hemoglobin 04/29/2023 11:56:19 9.8 Below low normal 14.0-16.8 (g/dL) Final HCT 04/29/2023 11:56:19 31.4 Below low normal 40.0-48.4 (%) Final MCV 04/29/2023 11:56:19 90.8 82.0-99.5 (fL) Final MCH 04/29/2023 11:56:19 28.3 27.0-34.0 (pg) Final MCHC 04/29/2023 11:56:19 31.2 32.0-36.0 (g/dL) Final RDW 04/29/2023 11:56:19 16.3 11.5-15.5 (%) Final Platelets 04/29/2023 11:56:19 241 140-400 (K/uL) Final MPV 04/29/2023 11:56:19 9.3 6.6-11.1 (fL) Final Nucleated erythrocytes/100 leukocytes [Ratio] in Blood by Automated count 04/29/2023 11:56:19 0 <=0 (/100 WBCs) Final Performing Location LABORATORY [facility] - [address] [place] [address]
--- OUTSIDE RECORDS SUMMARY | 2023-08-21 23:52 | External Medical Summary ---
Author Name Unknown Address Unknown Organization K1F:LABORATORY [facility] - [address] [place] [address] Laboratory Report Ordering Provider Test Date Status MEDARDO ADAMSON 04/29/2023 17:05:00 Final Observation Date Value Abnormality Reference (Units ) Status Body temperature 04/29/2023 17:05:00 37.0 (C) Final pH of Arterial blood 04/29/2023 17:05:00 7.255 Below low normal 7.350-7.450 (units) Final Carbon dioxide [Partial pressure] in Arterial blood 04/29/2023 17:05:00 46.4 Above high normal 35.0-45.0 (mmHg) Final Oxygen [Partial pressure] in Arterial blood 04/29/2023 17:05:00 124.0 Above high normal 75.0-100.0 (mmHg) Final Base excess, Arterial 04/29/2023 17:05:00 -6.5 Below low normal -2.0-2.0 (mmol/L) Final Hemoglobin [Mass/volume] in Blood by Oximetry 04/29/2023 17:05:00 9.7 Below low normal 14.0-16.8 (g/dL) Final Oxyhemoglobin, Arterial (FO2HB) 04/29/2023 17:05:00 96.0 94.0-99.0 (% total Hgb) Final Carboxyhemoglobin 04/29/2023 17:05:00 1.6 Above high normal <=1.5 (% total Hgb) Final Smokers: 0-9.0 % Methemoglobin 04/29/2023 17:05:00 0.6 <= 1.5 (% total Hgb) Final Deoxyhemoglobin/Hemoglo bin.total in Arterial blood 04/29/2023 17:05:00 1.8 0.0-5.0 (% total Hgb) Final Oxygen content in Arterial blood 04/29/2023 17:05:00 13.3 Below low normal 15.0-24.0 (%vol) Final Oxygen/Inspired gas setting [Volume Fraction] Ventilator 04/29/2023 17:05:00 30 (%) Final 14 bipap O2 FLOW, [facility] - [facility] 04/29/2023 17:05:00 Not Provided (L/min) Final Bicarbonate, Venous, POC (i-STAT) 04/29/2023 17:05:00 19.9 Below low normal 23.0-31.0 (mmol/L) Final Performing Location LABORATORY [facility] - [address] [place], [place] [address] [address]
--- OUTSIDE RECORDS SUMMARY | 2023-08-21 23:52 | External Medical Summary ---
Author Name Unknown Address Unknown Organization K1F:LABORATORY [facility] - [address] [place] [address] Laboratory Report Ordering Provider Test Date Status MEDARDO ADAMSON 04/29/2023 17:27:00 Final Observation Date Value Abnormality Reference (Units ) Status BUN 04/29/2023 17:27:00 46 Above high normal 6-20 (mg/dL) Final Creatinine 04/29/2023 17:27:00 3.1 Above high normal 0.6-1.2 (mg/dL) Final Glomerular filtration rate/1.73 sq M.predicted [Volume Rate/Area] in Serum, Plasma or Blood by Creatinine-based formula (CKD-EPI) 04/29/2023 17:27:00 20 Below low normal >=60 (mL/min) Final eGFR is calculated based on the CKD-EPI 2020 equation SODIUM 04/29/2023 17:27:00 137 135-146 (m mol/L) Final Potassium 04/29/2023 17:27:00 4.9 3.5-5.1 (m mol/L) Final Cl 04/29/2023 17:27:00 106 98-107 (mm ol/L) Final CO2 04/29/2023 17:27:00 19 Below low normal 22- 32 (mmol/L) Final Anion gap 04/29/2023 17:27:00 12 7-15 (mmol /L) Final Glucose 04/29/2023 17:27:00 175 Above high normal 70 -120 (mg/dL) Final Calcium 04/29/2023 17:27:00 8.5 8.4-10.2 ( mg/dL) Final Performing Location LABORATORY [facility] - [address] [place] [address]
--- OUTSIDE RECORDS SUMMARY | 2023-08-21 23:52 | External Medical Summary ---
Author Name Unknown Address Unknown Organization K1F:LABORATORY [facility] - [address] [place] [address] Laboratory Report Ordering Provider Test Date Status ROBBIE RONQUILLO 04/29/2023 17:28:00 Final Observation Date Value Abnormality Reference (Units ) Status Magnesium 04/29/2023 17:28:00 2.1 1.5-2.6 (m g/dL) Final Performing Location LABORATORY [facility] - [address] [place] [address]
--- OUTSIDE RECORDS SUMMARY | 2023-08-21 23:52 | External Medical Summary ---
Author Name Unknown Address Unknown Organization K1F:LABORATORY [facility] - [facility] [address] [place] [address] Laboratory Report Ordering Provider Test Date Status MEDARDO ADAMSON 04/30/2023 07:02:00 Final Observation Date Value Abnormality Reference (Units ) Status WBC, Total 04/30/2023 07:02:00 14.28 Above high normal 4.00-10.80 (K/uL) Final RBC 04/30/2023 07:02:00 3.34 4.50-5.25 (M/uL) Final Hemoglobin 04/30/2023 07:02:00 9.2 Below low normal 14.0-16.8 (g/dL) Final HCT 04/30/2023 07:02:00 30.8 Below low normal 40.0-48.4 (%) Final MCV 04/30/2023 07:02:00 92.2 82.0-99.5 (fL) Final MCH 04/30/2023 07:02:00 27.5 27.0-34.0 (pg) Final MCHC 04/30/2023 07:02:00 29.9 32.0-36.0 (g/dL) Final RDW 04/30/2023 07:02:00 16.0 11.5-15.5 (%) Final Platelets 04/30/2023 07:02:00 204 140-400 (K/uL) Final MPV 04/30/2023 07:02:00 10.1 6.6-11.1 (fL) Final Nucleated erythrocytes/100 leukocytes [Ratio] in Blood by Automated count 04/30/2023 07:02:00 0 <=0 (/100 WBCs) Final Performing Location LABORATORY [facility] - [address] [place] [address]
--- OUTSIDE RECORDS SUMMARY | 2023-08-21 23:52 | External Medical Summary ---
Author Name Unknown Address Unknown Organization K1F:LABORATORY [facility] - [facility] [address] [place] [address] Laboratory Report Ordering Provider Test Date Status MEDARDO ADAMSON 05/01/2023 05:29:00 Final Observation Date Value Abnormality Reference (Units ) Status WBC, Total 05/01/2023 05:29:00 12.66 Above high normal 4.00-10.80 (K/uL) Final RBC 05/01/2023 05:29:00 3.31 4.50-5.25 (M/uL) Final Hemoglobin 05/01/2023 05:29:00 8.9 Below low normal 14.0-16.8 (g/dL) Final HCT 05/01/2023 05:29:00 29.8 Below low normal 40.0-48.4 (%) Final MCV 05/01/2023 05:29:00 90.0 82.0-99.5 (fL) Final MCH 05/01/2023 05:29:00 26.9 27.0-34.0 (pg) Final MCHC 05/01/2023 05:29:00 29.9 32.0-36.0 (g/dL) Final RDW 05/01/2023 05:29:00 16.5 11.5-15.5 (%) Final Platelets 05/01/2023 05:29:00 231 140-400 (K/uL) Final MPV 05/01/2023 05:29:00 9.6 6.6-11.1 (fL) Final Nucleated erythrocytes/100 leukocytes [Ratio] in Blood by Automated count 05/01/2023 05:29:00 0 <=0 (/100 WBCs) Final Performing Location LABORATORY [facility] - [address] [place] [address]
--- OUTSIDE RECORDS SUMMARY | 2023-08-21 23:52 | External Medical Summary ---
Author Name Unknown Address Unknown Organization K1F:LABORATORY [facility] - [address] [place] [address] Laboratory Report Ordering Provider Test Date Status DOUGLAS REYES 04/29/2023 11:56:19 Final Observation Date Value Abnormality Reference (Units ) Status Magnesium 04/29/2023 11:56:19 1.9 1.5-2.6 (m g/dL) Final Performing Location LABORATORY [facility] - [address] [place] [address]
--- OUTSIDE RECORDS SUMMARY | 2023-08-21 23:52 | External Medical Summary | Summary of Care ---
Author Name Unknown Organization [facility] Address [address] [place] [address] Phone [phone] Care Team Providers Care Occ Therapy Asst Name Role Phone Poly Basilio DO, Kenneth Primary Care Provider [phone] Reason for Visit * Auth/Cert Specialty Diagnoses / Procedures Referred By Ramin snider Referred To Contact Referral ID Status Reason Start Date Expiration Date Visits Re quested Visits Authorized [id number] Encounter Details Date Type Department Care Team Description 04/30/2023 Hospital Encounter Cardiac Studies, [facility] [address] [place] [address] Allergies No known active allergiesdocumented as of this encounter (statuses as of 05/01/2023) Medications Medication Sig Dispensed Refills Start Date End Date Status ASPIRIN 81 MG PO TABS 1 tablet daily 0 Suspended PLAVIX 75 MG PO TABS 1 tablet daily 0 Suspended CALCIUM + D 600-200 MG-UNIT PO TABS 1 tablet daily 0 Suspe nded NEURONTIN 300 MG PO CAPS 1 daily 0 Suspended atorvaSTATin (LIPITOR) 80 MG Tablet 1 Tablet. 0 Suspended traMADol (ULTRAM) 50 MG Tablet 50 mg. 0 Suspended sodium bicarbonate 650 MG Tablet 650 mg. 0 Suspended Vitamin D, Ergocalciferol, 53692 units Capsule 50,000 Units. 0 Otero spended Ondansetron HCl 4 MG Oral Tablet 4 mg. 0 Suspended finasteride (PROSCAR) 5 MG Tablet 1 Tablet. 0 Suspended citalopram (CELEXA) 40 MG Tablet 1 Tablet. 0 Suspended oxyCODONE-Acetamino phen 7.5-325 MG Oral Tablet 0 Suspended pantoprazole (PROTONIX) 40 MG TBEC 40 mg. 0 Suspended dilTIAZem CD (CARDIZEM CD) 180 MG CP24 extended release capsule Take 1 Cap by mouth daily. 30 Cap 0 04/12/2019 Suspended Additional Information Vitron-C 65-125 MG Oral Tablet (Iron-Vitamin C) Take 2 Tablets by mouth in the morning. 0 Suspended documented as of this encounter (statuses as of 05/01/2023) Active Problems Problem Noted Date Acute on [...] as of this encounter (statuses as of 05/01/2023) Immunizations Name Administration Dates Next Due Pneumococcal [...] do you have serious difficulty h earing? Yes-[place] 04/29/2023 Are you blind or do you [...] as of this encounter Miscellaneous Notes * Ancillary Progress Note - DERICK Orlando - 04/30/2023 8:15 AM EDT Echo completed at bedside. documented in this encounter Plan of Treatment Upcoming Encounters Date Type Specialty Care Team Description 05/09/2023 Hem/Onc Treatment Hematology Oncology [facility], Chair3 Hem Onc [address] [place] [address] [place] [id number] Health Maintenance Due Date Last Done Comments [...] Additional history exists Albumin/Creatinine Ratio 04/11/2024 04/11/2023, 05/01/2022 O2 ASSESSMENT COMPLETED IN PAST YEAR FOR COPD 04/30/2024 05/01/2023 GFR 05/01/2024 05/01/2023, 04/08, 04/30/2023, Additional history exists GARDASIL-HPV IMMUNIZATION SERIES Aged [...] Procedure Name Priority Date/Time Associated Diagnosis Comments ECHO, COMPLETE (2D), TRANS-THORACIC Routine 04/30/2023 8:52 AM EDT Heart failure (HCC) documented in this encounter Visit Diagnoses Diagnosis HFrEF (heart failure with reduced ejection fraction) ([facility])- Primary documented in this encounter Administered Medications Inactive Administered Medications - up to 3 most recent administrations Medication Order MAR Action Action Date Dose Rate Site perflutren lipid microsphere inj SUSP 1.956 mg 1.956 mg, Intravenous, ONCE PRN Other, For Echo Only - Suboptimal Echo Images, Starting on Sun04/30/23 at 0835, Until Sun04/30/23 at 1034, For 2 hours, Administer IVP over 45 seconds, Cardiac Studies_HODHOV Given 04/30/2023 8:44 AM EDT 1.956 mg documented in this encounter Advance Directives Latest Code Status on File Code Status Date Activated Date Inactivated Comments Full Code 04/30/2023 10:11 AM This orde r reflects the patients wishes and were consensually [...] the patient have Health Care Power of Natural Resources Technician? No Bag Valve Device? No Intubation? No [...] the patient have Health Care Power of Natural Resources Technician? No Care Teams Occ Therapy Asst Relationship Specialty Start Date End Date Vinod Pang Jr., DO [address] [facility] [place] [address] PCP - General 04/26/09 documented as of this encounter
--- OUTSIDE RECORDS SUMMARY | 2023-08-21 23:52 | External Medical Summary ---
Author Name Unknown Address Unknown Organization K1F:LABORATORY [facility] - [address] [place] [address] Laboratory Report Ordering Provider Test Date Status MEDARDO ADAMSON 04/30/2023 17:33:00 Final Observation Date Value Abnormality Reference (Units ) Status BUN 04/30/2023 17:33:00 62 Above high normal 6-20 (mg/dL) Final Creatinine 04/30/2023 17:33:00 3.5 Above high normal 0.6-1.2 (mg/dL) Final Glomerular filtration rate/1.73 sq M.predicted [Volume Rate/Area] in Serum, Plasma or Blood by Creatinine-based formula (CKD-EPI) 04/30/2023 17:33:00 17 Below low normal >=60 (mL/min) Final eGFR is calculated based on the CKD-EPI 2020 equation SODIUM 04/30/2023 17:33:00 141 135-146 (m mol/L) Final Potassium 04/30/2023 17:33:00 4.3 3.5-5.1 (m mol/L) Final Cl 04/30/2023 17:33:00 106 98-107 (mm ol/L) Final CO2 04/30/2023 17:33:00 24 22-32 (mmo l/L) Final Anion gap 04/30/2023 17:33:00 11 7-15 (mmol /L) Final Glucose 04/30/2023 17:33:00 153 Above high normal 70 -120 (mg/dL) Final Calcium 04/30/2023 17:33:00 8.7 8.4-10.2 ( mg/dL) Final Performing Location LABORATORY [facility] - [address] [place] [address]
--- OUTSIDE RECORDS SUMMARY | 2023-08-21 23:52 | External Medical Summary | Summary of Care ---
Author Name Unknown Organization [facility] Address [address] [place] [address] Phone [phone] Care Team Providers Care Hydrodynamics Teacher Name Role Phone Poly Basilio DO, Kenneth Primary Care Provider [phone] [phone] Reason for Visit * Reason Onset Date Comments Scheduling 04/12/2023 Juan Encounter Details Date Type Department Care Team Description 04/12/2023 Telephone Hematology/Oncology, [facility] [address] [place] [address] Reanna Kearns MD [address] [address] Scheduling (Juan) Allergies No known active allergiesdocumented as of [...] 650 mg. 0 Active Vitamin D, Ergocalciferol, 37845 units Capsule 50,000 Units. 0 Active Ondansetron [...] (15 years old or older) No 04/10/20 19 Cognitive Status Response Date of Assessm ent Because of a physical, menta l, or emotional condition, do you have serious difficulty concentrating, remembering, or making decisions? (5 years old or older No 04/10/2019 documented as of this encounter Miscellaneous Notes * Telephone Encounter - MAEGAN Rocha - 04/24/2023 2:43 PM EDT Pt scheduled for weekly Venofer Infusion x 3 starting on 04/25. Pt aware. * Telephone Encounter - MAEGAN Rocha - 04/23/2023 9:12 AM EDT LMOM for pt to call back to schedule weekly venofer infusion x 3. * Telephone Encounter - MAEGAN Rocha - 04/20/2023 3:27 PM EDT Attempted to call and am getting a busy signal. * Telephone Encounter - Juliana Perez LPN - 04/20/2023 9:45 AM EDT Signed tx plan received Please schedule venofer - 2 hour Weekly x [address] Kearns * Telephone Encounter - MAEGAN Azevedo - 04/17/2023 2:[address] Kearns's office called and asked for tx plan to be refaxed. Re faxed to [phone] * Telephone Encounter - Juliana Perez LPN - 04/12/2023 10:08 AM EDT Borisalyce tx plan received Plan built and faxed to Dr Kearns for signature documented in this encounter Plan of Treatment Upcoming Encounters Date Type Specialty Care Team Description 05/01/2023 Hem/Onc Treatment Hematology Oncology [facility], Chair6 Hem Onc [address] [place], [place] [address]J[place] Perez [id number] 05/09/2023 Hem/Onc Treatment Hematology Oncology [facility], Chair3 Hem Onc [facility] [place] [address] Health Maintenance Due Date Last Done Comments [...] Additional history exists Albumin/Creatinine Ratio 04/11/2026 04/11/2023, 0501/2022 GARDASIL-HPV IMMUNIZATION SERIES Aged Out No longer [...] the patient have Health Care Power of Network Planner? No Care Teams Hydrodynamics Teacher Relationship Specialty Start Date End Date Vinod Pang Jr., DO [address] [facility] [place] [address] PCP - General 04/26/09 documented as of this encounter
--- OUTSIDE RECORDS SUMMARY | 2023-08-21 23:52 | External Medical Summary ---
Author Name Unknown Address Unknown Organization K1F:LABORATORY [address] [place] [address] Laboratory Report Ordering Provider Test Date Status DOUGLAS REYES 04/29/2023 12:20:00 Final No anaerobic bottle received . Observation Date Value Abnormality Reference (Units ) Status Bacteria identified in Unspecified specimen by Culture 04/29/2023 12:20:00 No growth Final Test: Culture, Blood
Belén mendez Source: Blood, Venous
Specimen Type: Blood
Specimen Date: 04/29/2023 12:20 PM
Result Date: 05/04/2023 1:01 PM
Result Status: Final result
Resulting Lab: LABORATORY [facility]
[address] [place] [address]
[place] [address]

CULTURE

No growth

No anaerobic bottle received.

null Performing Location LABORATORY [address] [place] [address]
--- OUTSIDE RECORDS SUMMARY | 2023-08-21 23:52 | External Medical Summary ---
Author Name Unknown Address Unknown Organization K1F:LABORATORY [facility] - [place] [address] Laboratory Report Ordering Provider Test Date Status DOUGLAS REYES 04/29/2023 12:20:00 Final Warfarin Therapy
INR: 2 .0-3.0 conventional anticoagulation
INR: 2.5- 3.5 high intensity anticoagulation Observation Date Value Abnormality Reference (Units ) Status PT 04/29/2023 12:20:00 16.2 Above high normal 11 .6-15.2 (seconds) Final INR 04/29/2023 12:20:00 1.3 Above high normal 0. 8-1.2 Final Performing Location LABORATORY [facility] - [address] [place] [address]
--- OUTSIDE RECORDS SUMMARY | 2023-08-21 23:53 | External Medical Summary ---
Author Name Unknown Address Unknown Organization K1C:[facility] [address] [place] [address] Laboratory Report Ordering Provider Test Date Status DEMETRIO GREY 04/16/2023 09:52 Final Observation Date Value Abnormality Reference (Units ) Status URIC ACID 04/16/2023 15:16 5.3 2.5-7.5 (MG/D L) Final Performing Location [facility] [address] [place] [address]
--- OUTSIDE RECORDS SUMMARY | 2023-08-21 23:53 | External Medical Summary ---
Author Name Unknown Address Unknown Organization K1C:[facility] [address] [place] [address] Laboratory Report Ordering Provider Test Date Status DEMETRIO GREY 04/16/2023 09:52 Final Observation Date Value Abnormality Reference (Units ) Status ESR 04/16/2023 15:26 37 Above high normal 0-[address] [facility] [address] [place] [address]
--- OUTSIDE RECORDS SUMMARY | 2023-08-21 23:53 | External Medical Summary | Summary of Care ---
Author Name Unknown Organization [facility] Address [address] [place] [address] Phone [phone] Care Team Providers Care Global Director Air And Climate Change Name Role Phone Poly Basilio DO, Kenneth Primary Care Provider [phone] Encounter Details Date Type Department Care Team Description 04/16/2023 Hospital Encounter Radiology, [address] [place] [address] Arrived Allergies No known active allergiesdocumented as of this encounter (statuses as of 04/17/2023) Medications Medication Sig Dispensed Refills Start Date End Date Status ASPIRIN 81 MG PO TABS 1 tablet daily 0 Active PLAVIX 75 MG PO TABS 1 tablet daily 0 Active CALCIUM + D 600-200 MG-UNIT PO TABS 1 tablet daily 0 Activ e NEURONTIN 300 MG PO CAPS 1 daily 0 Active atorvaSTATin (LIPITOR) 80 MG Tablet 80 mg. 0 Active traMADol (ULTRAM) 50 MG Tablet 50 mg. 0 Active sodium bicarbonate 650 MG Tablet 650 mg. 0 Active Vitamin D, Ergocalciferol, 88594 units Capsule 50,000 Units. 0 Active ondansetron (ZOFRAN) 4 MG Tablet 4 mg. 0 Active finasteride (PROSCAR) 5 MG Tablet 5 mg. 0 Active citalopram (CELEXA) 40 MG Tablet 40 mg. 0 Active oxyCODONE-Acetaminophe n (PERCOCET) 7.5-325 MG per tablet 0 Active pantoprazole (PROTONIX) 40 MG TBEC 40 mg. 0 Act vicente dilTIAZem CD (CARDIZEM CD) 180 MG CP24 extended release capsule Take 1 Cap by mouth daily. 30 Cap 0 04/12/2019 Active Vitron-C 65-125 MG Oral Tablet (Iron-Vitamin C) Take by mouth 2 Tablets daily . 0 Active documented as of this encounter (statuses as of 04/17/2023) Active Problems Problem Noted Date Anemia 06/20/2022 Moderate malnutrition 04/11/2019 Febrile neutropenia 04/10/2019 Sepsis 04/10/2019 CAD (coronary artery disease) 04/10/2019 CKD (chronic kidney disease) 04/10/2019 Lymphoma 04/10/2019 PVD (peripheral vascular disease) 2018 HTN (hypertension) 04/10/2019 HLD (hyperlipidemia) 04/10/2019 ADVANCE DIRECTIVE INFORMATION 06/07/2009 Overview: No, Advance Directive brochure offered , patient declined. documented as of this encounter (statuses as of 04/17/2023) Immunizations Name Administration Dates Next Due Pneumococcal [...] No 04/10/2019 documented as of this encounter Plan of Treatment Health Maintenance Due Date Last Done Comments COVID-19 Vaccine (#1) 1945 Depression Screening, Annual for Pts 12 and [...] Procedure Name Priority Date/Time Associated Diagnosis Comments XR CHEST 2 VIEWS STAT 04/16/2023 10:5 6 AM EDT Cough, unspecified documented in this encounter Results * XR CHEST 2 VIEWS (04/16/2023 10:56 AM EDT) Anatomical Region Laterality Modality Chest Digital Radiogra phy 04/16/2023 11:1 2 AM EDT Impressions 04/16/2023 11:09 AM EDT IMPRESSION No acute cardiopulmonary abnormality. Underinflation. Narrative 04/16/2023 11:09 AM EDT EXAM XR CHEST 2 VIEWS - 04/16/2023 10:56 am HISTORY Cough TECHNIQUE PA and lateral views of the chest COMPARISON 03/19/2023. 04/10/2019 FINDINGS Venous port in the left chest enters the left internal jugular vein and terminates in the left brachiocephalic vein. Heart is normal size. Mediastinal contours are normal. Lungs are underinflated. No alveolar consolidation is seen. No pleural effusion. No pleural effusion. Procedure Note Danielle Alireza ManpreetwaleskaDO - 04/16/2023 EXAM XR CHEST 2 VIEWS - 04/16/2023 10:56 am HISTORY Cough TECHNIQUE PA and lateral views of the chest COMPARISON 03/19/2023. 04/10/2019 FINDINGS Venous port in the left chest enters the left internal jugular vein andterminates in the left brachiocephalic vein. Heart is normal size. Mediastinal contours are normal. Lungs areunderinflated. No alveolar consolidation is seen. No pleural effusion.No pleural effusion. IMPRESSION IMPRESSION No acute cardiopulmonary abnormality. Underinflation. Vinod Pang Jr., DO RADIOLOGY (RAD GE NERAL) documented in this encounter Advance Directives Latest [...] the patient have Health Care Power of Manager Banquet? No Care Teams Global Director Air And Climate Change Relationship Specialty Start Date End Date Vinod Pang Jr., DO [address] [facility] [place] [address] PCP - General 04/26/09 documented as of this encounter
--- OUTSIDE RECORDS SUMMARY | 2023-08-21 23:53 | External Medical Summary | Continuity of Care Document ---
Author Name MATILDA ATKINSON DO Address [address] [place] [address] [place] [address] Phone [phone] Organization [place] Address [address] [place] [address] RD, [address] [place] [address] Phone [phone] Care Team Providers Care Wrapper Off Name Role Phone GI - Gastroenterology Care Team Information Rece Fermín Harrell MD Care Team Information Receiv er [phone] Rory Hodge Care Team Information Flavor Tank Tender [phone] Nixon Aden MD Care Team Information Flavor Tank Tender [phone] Abran Eugene JR - Interven tional Pain Medicine Care Team Information Flavor Tank Tender [phone] Medardo Trinidad MD Care Team Information Receive r [phone] Sinan Marks MD Care Team Information Receive r [phone] Problems Active Problems Provider Date Chronic kidney [...] Atkinson JR, DO On set: 09/01/2015 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 Gas Leak Inspector (Cu rrent) Use Encounter Matilda Atkinson JR [...] SIG Qnty Indications Ordering Provider Date Clopidogrel Lszffperj54vu Tablets Take One (1) Tablet By Mouth Every Day 30tabs I73.9 Matilda L. Poly JR, DO 08/24/2021 Citalopram Qywqgiujcxpd77zu Tablets Take One (1) Tablet By Mouth Every Day 90tabs F33.1 Matilda Atkinson JR, DO 06/23/2019 Dkyzcfyedwo7qc Tablets Take One Tablet By Mouth Once Daily 30tabs Matilda Atkinson JR, DO 11/12/2017 Oxycodone-Acetaminophe n7.5-325mg Tablets take one tablet every 6 h as needed pain--ongoing therapy 60tabs Matilda Atkinson JR, DO 01/22/2014 Atorvastatin Jwugdgz39ft Tablets Take One Tablet By Mouth AT Bedtime 90tabs E78.0 Matilda Atkinson JR, DO E78.00 Eokucg07964Qpyk/ML Solution 40,000 units monthly Unknown Albuterol Sulfate OJU785(90B ase) mcg/Act Aerosol 2 puffs by mouth every 4-6 hours as needed wheezing Unknown Jdtcgqxmah10mk Tablets 1 by mouth twice a day 180tabs Unknown Pantoprazole Voaaad34oq Tabl ets DR 1 by mouth every day Unknown 000 Pznrlaj0nf Tablets 1 by mouth twice a day Unknown Bumetanide0.5mg Tablets 1 or 2 by mouth every day as needed Unknown Tamsulosin HCL0.4mg Capsules 1 by mouth every day Unknown History Medications Nitrofurantoin Monohyd Ceukz054qf Capsules take 1 capsule twice daily for 10 days 20caps Gisella Lisa MD, PhD 03/23/2023 - 04/10/2023 Cuzslyykmi734ff Tablets take 1 tab by mouth twice [...] CPT Code Status Date Vaccine Lot # [id number] Given 10/04/2022 Influenza Vaccine High Do se 0.5ML [id number] U-FLU Given 10/04/2022 Influenza,Unspecified 17476 Given 08/11/2020 Influenza Vacci ne-Administered at another facility U-FLU Given 08/11/2020 Influenza,Unspecified U-FLU Given 08/23/2019 Influenza,Unspecified 43450 Given 08/23/2019 Influenza Vacci ne-Administered at another facility 62564 Given 07/11/2018 Influenza Vac, Split, Preservative Free High Dose Age 65 & > [id number] 35818 Given 10/02/2017 Pneumococcal Conjugate-Pr evnar 13 44129 Given 10/02/2017 Influenza Vac, Split, Preservative Free High Dose Age 65 & > 52502 Given 08/14/2016 Influenza Virus Vaccine, Quadrivalent, Im Use [id number] 26090 Given 09/01/2015 Influenza Vac, Split, Preservative Free High Dose Age 65 & > [id number] 66774 Given 09/01/2015 Pneumococcal Conjugate-Pr evnar 13 [id number] 58789 Given 07/21/2014 Influenza Vac, Split, Preservative Free High Dose Age 65 & > [id number] U-FLU Given 07/21/2014 Influenza,Unspecified 72223 Given 01/31/2014 Pneumococcal Vaccine/Pneu movax 23 10912 Given 07/17/2013 Influenza Vac, Split, Preservative Free High Dose Age 65 & > [id number] 87097 Given 07/24/2012 Influenza Vac, Split, Preservative Free High Dose Age 65 & > [id number] 77079 Given 07/04/2011 Influenza Vac, Split, Preservative Free High Dose Age 65 & > [id number] 50731 Given 08/16/2010 Pneumococcal Vaccine/Pneu movax 23 [id number] 23847 Given 10/21/2009 Influenza Vac, Split 3 Yr s And Up [id number] 33265 Given 07/24/2008 Influenza Vac, Split 3 Yr s And Up U-FLU Given 07/22/2008 Influenza,Unspecified 21386 Given 10/27/2004 Influenza Vac, Split 3 Yr s And Up 25821 Given 07/22/2004 Pneumococcal Vaccine/Pneu movax 23 92193 Refused 04/11/2023 Moderna Sars-Co v-2 (Covid-19) vaccine, 100 mcg/ 0.5 mL 12Y+ 72137 Refused 04/11/2023 Shingrix 99034 Refused 07/26/2021 Moderna Sars-Co v-2 (Covid-19) vaccine, 100 mcg/ 0.5 mL 12Y+ 98800 Refused 09/28/2020 Tdap (Tetanus, diphtheria & acel. pertussis) Adacel or Boostrix 60822 Refused 09/28/2020 Shingrix 23837 Refused 08/19/2020 Influenza Virus Vaccine, Quadrivalent, Im Use 35430 Refused 07/11/2016 Influenza Vac, Split, Preservative Free [...] 5'6" BMI (Body Mass Index) 32.6 kg/m2 [place] Body Weight 142 lb Results Test Acquired Date Facility Test Result H/L Range N ote Microalbumin Urine 04/11/2023 [facility]. [address] [place] [address] [phone] Urine Creat 74 mg/dL Comment Microalbumin 7.8 mg/dL High 0.0-1.8 1 ug/mgCREATININE 105 ug/mg High 0-29 CBC W/Diff 04/04/2023 [facility]. [address] [place] [address] [phone] WBC 6.1 10^3/M3 3.1-9.2 RBC 3.34 10^6/M3 Low 4.00-5.80 HGB 9.4 GR/DL Low 12.5-17.5 HCT 29.3 % Low 37.5-52.5 MCV 88.0 CUMICR 82.6-95.8 MCH 28.3 PICOGR 27.9-32.9 MCHC 32.2 % Low 32.6-35.4 RDW 16.5 % High 11.4-14.6 PLT 285 10^3/M3 140-350 MPV 7.9 CUMICR 7.0-10.6 %Neut 68.7 % 40.0-75.0 %Lymph 7.8 % Low 17.0-45.0 %Swift 9.3 % 1.0-11.0 %Eos 13.1 % High 0.0-6.0 %Baso 1.1 % 0.0-2.0 #Neut 4.2 10^3/M3 1.5-8.0 #Lymph 0.5 10^3/M3 Low 0.8-3.2 #Swift 0.6 10^3/M3 0.0-0.8 #Eos 0.8 10^3/m3 High 0.0-0.4 #Baso 0.1 10^3/m3 0.0-0.2 Comp. Met 04/04/2023 [facility]. [address] [place] [address] [phone] Glucose 116 mg/dL High 70-110 BUN 45 [...] GFR 24 ML/MIN/1.73SQM Low >60 Hba1c 04/04/2023 [facility]. [address] [place] [address] [phone] A1c 5.70 % 4.70-6.50 2 Laboratory test finding 04/04/2023 [facility]. [address] [place] [address] [phone] Ferritin 50.30 ng/mL 22.00-415.0 Iron Panel(Medcom) 04/04/2023 [facility]. [address] [place] [address] [phone] Iron 33 g /dL Low 45-140 % Saturation 11 % Low 30-35 Lipid 04/04/2023 [facility]. [address] [place] [address] [phone] Cholesterol 121 mg/dL 0-200 3 Triglyceride 71 mg/dL 0-150 4 HDLD 38 mg/dL See Comment 5 Measured LDL 70 mg/dL 0-130 6 Calc VLDL 14.2 mg/dL See Comment 7 Chol/HDL 3.2 RATIO See Comment 8 Non-HDL 83 mg/dL See Comment 9 Laboratory test finding 04/04/2023 [facility]. [address] [place] [address] [phone] TSH 2.51 uIU/mL 0.50-6.00 FRT4 0.79 ng/dL 0.75-1.54 Tibc 04/04/2023 [facility]. [address] [place], [place] [address] [phone] Tibc 297 g /dL 260-400 Transferrin 212 mg/dL 200-400 Urine Isolate#1 03/19/2023 [facility]. [address] [place] [address] [phone] Isolate #1 Enterococcus mar <SEE NOTE> 10 Ampicillin >8 R Ciprofloxacin >2 R Levofloxacin >4 R Linezolid <=2 S Nitrofurantoin <=32 S Penicillin >8 R Rifampim >2 R Tetracycline >8 R Vancomycin >16 R Urinalysis 03/19/2023 [facility]. [address] [place], [place] [address] [phone] Color LIGHT-YELLOW Appearance CLEAR Clear Spec.Grav. 1.010 1.005-1.025 Leukocytes LARGE Abnormal Negative Nitrite NEGATIVE Negative PH 6.0 6.0-7.5 Protein TRACE Abnormal Negative Urine Glucose NEGATIVE Negative Ketone NEGATIVE Negative Urobilinogen NORMAL E.U./DL Normal Bilirubin NEGATIVE Negative Blood NEGATIVE Negative WBC-U TNTC /HPF Abnormal 0-5/HPF RBC-U 3-5 /HPF 0-5/HPF Bacteria 1+ Abnormal None Seen Squamous 0-2 /HPF 0-5/HPF Laboratory test finding 03/19/2023 [facility]. [address] [place] [address] [phone] BNP 904.0 pg/mL Critical high 0.0-100.0 BMP 03/19/2023 [facility] [address] [place] [address] [phone] Glucose 132 mg/dL High 70-110 BUN 43 mg/dL High 6-25 Creatinine 3.1 mg/dL Critical high 0.7-1.3 11 Sodium 141 mEq/L 135-145 Potassium 4.0 mEq/L 3.5-5.0 Chloride 105 mEq/L 95-107 Co-2 22 mEq/L Low 24-31 Calcium 9.1 mg/dL 8.5-10.6 GFR 21 ML/MIN/1.73SQM Low >60 Urine Culture 03/19/2023 [facility] [address] [place] [address] [phone] Urine Source URINE Total Col Count >100,000 COL/CC Laboratory test finding 03/19/2023 [facility] (In Office Test) Sars Rna QL PCR - In Office Not Detected. CBC W/Diff 03/19/2023 [facility]. [address] [place] [address] [phone] WBC 6.3 10^3/M3 3.1-9.2 RBC 3.06 10^6/M3 Low 4.00-5.80 HGB 9.0 GR/DL Low 12.5-17.5 HCT 29.4 % Low 37.5-52.5 MCV 95.8 CUMICR 82.6-95.8 MCH 29.4 PICOGR 27.9-32.9 MCHC 30.7 % Low 32.6-35.4 RDW 17.6 % High 11.4-14.6 PLT 266 10^3/M3 140-350 MPV 8.2 CUMICR 7.0-10.6 %Neut 76.3 % High 40.0-75.0 %Lymph 7.3 % Low 17.0-45.0 %Swift 8.7 % 1.0-11.0 %Eos 7.0 % High 0.0-6.0 %Baso 0.7 % 0.0-2.0 #Neut 4.8 10^3/M3 1.5-8.0 #Lymph 0.5 10^3/M3 Low 0.8-3.2 #Swift 0.5 10^3/M3 0.0-0.8 #Eos 0.4 10^3/m3 0.0-0.4 #Baso 0.0 10^3/m3 0.0-0.2 Renal Panel 02/28/2023 [facility]. [address] [place] [address] [phone] Glucose 96 mg/dL 70-110 12 BUN 56 mg/dL High 6-25 Creatinine 2.9 mg/dL High 0.7-1.3 Sodium 142 mEq/L 135-145 Potassium 4.4 mEq/L 3.5-5.0 Chloride 109 mEq/L High 95-107 Co-2 23 mEq/L Low 24-31 Calcium 8.4 mg/dL Low 8.5-10.6 Phosphorus 3.3 mg/dL 2.5-4.8 Albumin 3.5 g/dL 3.0-5.2 GFR 22 Low >60 Laboratory test finding 02/28/2023 [facility]. [address] [place] [address] [phone] Vitd-25Oh 46 ng/mL 30-100 CBC No Diff 02/28/2023 [facility]. [address] [place] [address] [phone] WBC 5.9 10^3/M3 3.1-9.2 RBC 2.90 10^6/M3 Low 4.00-5.80 HGB 8.6 GR/DL Low 12.5-17.5 HCT 27.9 % Low 37.5-52.5 MCV 96.3 CUMICR High 82.6-95.8 MCH 29.6 PICOGR 27.9-32.9 MCHC 30.8 % Low 32.6-35.4 RDW 18.5 % High 11.4-14.6 PLT 238 10^3/M3 140-350 MPV 8.0 CUMICR 7.0-10.6 BMP 02/13/2023 [facility] [address] [place] [address] [phone] Glucose 99 mg/dL 70-110 13, 14 BUN 59 mg/dL High 6-25 Creatinine 3.0 mg/dL High 0.7-1.3 Sodium 142 mEq/L 135-145 Potassium 3.8 mEq/L 3.5-5.0 Chloride 106 mEq/L 95-107 Co-2 27 mEq/L 24-31 Calcium 9.0 mg/dL 8.5-10.6 GFR 22 Low >60 Laboratory test finding 02/13/2023 [facility] [address] [place] [address] [phone] BNP 490.0 pg/mL Critical high 0.0-100.0 15 H & H 02/13/2023 [facility]. [address] [place] [address] [phone] HGB 9.9 GR/DL Low 12.5-17.5 HCT 30.6 % Low 37.5-52.5 Laboratory test finding 02/13/2023 [facility] [address] [place] [address] [phone] Magnesium 2.1 mg/dL 1.7-2.8 Renal Panel 02/05/2023 [facility]. [address] [place] [address] [phone] Glucose 104 mg/dL 70-110 16 BUN 42 mg/dL High 6-25 Creatinine 3.0 mg/dL High 0.7-1.3 Sodium 150 mEq/L High 135-145 Potassium 4.9 mEq/L 3.5-5.0 Chloride 114 mEq/L High 95-107 Co-2 25 mEq/L 24-31 Calcium 8.9 mg/dL 8.5-10.6 Phosphorus 3.7 mg/dL 2.5-4.8 Albumin 3.8 g/dL 3.0-5.2 GFR 22 Low >60 CBC No Diff 02/05/2023 [facility]. [address] [place] [address] [phone] WBC 5.1 10 3.1-9.2 RBC 3.28 10 Low 4.00-5.80 HGB 9.6 GR/DL Low 12.5-17.5 HCT 30.9 % Low 37.5-52.5 MCV 94.4 CUMICR 82.6-95.8 MCH 29.3 PICOGR 27.9-32.9 MCHC 31.1 % Low 32.6-35.4 RDW 17.8 % High 11.4-14.6 PLT 195 10 140-350 MPV 8.2 CUMICR 7.0-10.6 Laboratory test finding 02/05/2023 [facility]. [address] [place] [address] [phone] Vitd-25Oh 38 ng/mL 30-100 Renal Panel 11/09/2022 [facility]. [address] [place] [address] [phone] Glucose 96 mg/dL 70-110 17 BUN 50 mg/dL High 6-25 Creatinine 3.4 mg/dL Critical high 0.7-1.3 18 Sodium 141 mEq/L 135-145 Potassium 4.5 mEq/L 3.5-5.0 Chloride 108 mEq/L High 95-107 Co-2 21 mEq/L Low 24-31 Calcium 8.9 mg/dL 8.5-10.6 Phosphorus 4.3 mg/dL 2.5-4.8 Albumin 3.7 g/dL 3.0-5.2 GFR 19 Low >60 Laboratory test finding 11/09/2022 [facility] [address] [place], [place] [address] [phone] Ferritin 64.20 ng/mL 22.00-415.0 CBC No Diff 11/09/2022 [facility]. [address] [place], [place] [address] [phone] WBC 7.2 10 3.1-9.2 RBC 3.66 10 Low 4.00-5.80 HGB 11.3 GR/DL Low 12.5-17.5 HCT 35.1 % Low 37.5-52.5 MCV 96.0 CUMICR High 82.6-95.8 MCH 30.9 PICOGR 27.9-32.9 MCHC 32.2 % Low 32.6-35.4 RDW 16.7 % High 11.4-14.6 PLT 243 10 140-350 MPV 7.7 CUMICR 7.0-10.6 Iron Panel(Medcom) 11/09/2022 [facility]. [address] [place], [place] [address] [phone] Iron 80 g /dL 45-140 19 % Saturation 24 % Low 30-35 Tibc 11/09/2022 [facility]. [address] [place], [place] [address] [phone] Tibc 337 g /dL 260-400 Transferrin 241 mg/dL 200-400 1 *[facility] [employer] USES MICROALBUMIN/CREATINE RATIO : *<30 ug/mg CREATININE IS CLASSIFIED NORMAL *30-300 ug/mg CREATININE IS CLASSIFIED CLINICAL MICROALBUMINURIA *>300 ug/mg CREATININE IS CLASSIFIED CLINICAL ALBUMINURIA CLASSIFICATION OF A PATIENT SHOULD BE BASED ON TWO OF THREE ABNORMAL RESULTS COLLECTED WITHIN A 3 TO 6 MONTH TIME FRAME* 2 MEAN GLUCOSE IN mg/d L/A1c% POOR CONTROL FAIR CONTROL GOOD CONTROL EXCELLENT CONTROL 360-14 210-9 180-8 120-6 330-13 150-7 90-5 300-12 270-11 240-10 3 CHOLESTEROL Less than 200mg/dl Low risk 201-239 mg/dl Borderline risk Equal to or greater 240mg/dl High risk CHOLESTEROL COMMENTS REPORT FAXED TO DOCTOR, REQUESTED ON REQUISITION. 6.28.23 ESEQUIEL 4 TRIGLYCERIDES Less than 150mg/dl Normal 150-199mg/dl Borderline 200-499mg/dl High Greater than 500mg/dl Very High 5 HDL <40mg/dl Elevated Risk 41-59mg/dl Risk >=60mg/dl Least Risk 6 LDL <100mg/dl Optimal 100-129mg/dl Near Optimal 130-159mg/dl Borderline High 160-189mg/dl High >=190 Very High 7 VLDL Less than 30mg/dl Normal 8 CHOL/HDL <4.0 Optimal 4.0-5.0 Borderline >6.0 High Risk 9 NON-HDL 30mg/dl higher than LDL Target 10 Enterococcus faecium VRE 11 CRITICAL RESULTS LUCI IFIED, FAXED, AND CALLED TO TANK JACKSON @ 12:10. 03/20/23 MH 12 REPORT FAXED TO DOCT OR, REQUESTED ON REQUISITION.03/01/23 LM 13 Please fax results t o Litzy Baez PA-C [phone] F- [phone] 14 REPORT FAXED TO DOCT OR, REQUESTED ON REQUISITION.02/14/23 LM 15 CRITICAL RESULTS LUCI IFIED, FAXED, AND CALLED TO LASHON KOENIGDARIUS @ 4:09. 02/13/23 MH 16 REPORT FAXED TO DOCT OR, REQUESTED ON REQUISITION. 02.06.23 ESEQUIEL 17 Fax to [phone] [facility] P: [phone] 18 CRITICAL RESULTS LUCI IFIED, FAXED, AND CALLED TO AMANDA AT 4:50 PM ON 11/09/22 ALB 19 REPORT FAXED TO DOCT OR, REQUESTED ON REQUISITION.11/10/22 LM Procedures Date Code Description Status 04/16/2023 11327 Pulse Oximetry Single Determ ination Completed 04/16/2023 89020 Venipuncture Routine Complet ed 04/11/2023 44050 Fundus Eye Exam Completed 04/11/2023 3725F Screening Depression Perform ed Completed 04/11/2023 3288F Fall Risk Assessment Documen awais Completed 04/11/2023 3078F PVRP Diastolic BP <80 mmHg C ompleted 04/11/2023 3074F PVRP Systolic BP <130 mmHg C ompleted 04/11/2023 1100F PT Screened Futu re Fall Risk >/=2 Falls In Past Yr/1 W/Injury Completed 04/04/2023 53044 Venipuncture Routine Complet ed 03/19/2023 57275 Venipuncture Routine Complet ed 02/28/2023 08732 Venipuncture Routine Complet ed 02/13/2023 40930 Venipuncture Routine Complet ed 01/15/2023 1111F D/C Medications Reconciled W/Current Medications In Outpt MR Completed 01/12/2023 1111F D/C Medications Reconciled W/Current Medications In Outpt MR Completed 11/09/2022 14532 Venipuncture Routine Complet ed Medical Devices Description No Information Available Encounters Type Date Location Provider Dx Diagnosis Office Visit 04/16/2023 9:15a Kylie Atkinson JR, DO M15.9 Polyosteoarthritis, unspecified R05.9 Cough, unspecified Office Visit 04/11/2023 9:[place]a [place] Z00.01 Encounter for general [...] with diabetic nephropathy Office Visit 03/19/2023 1:[place]p [place] Ovalle Ohnm acht, DO R06.02 Shortness of breath Office Visit 01/15/2023 11:00a Kylie cortes, ANN N40.1 Benign prostatic hyperplasia with lower urinary tract symp A41.50 Gram-negative sepsis , unspecified Assessments Date Code Description Provider 04/16/2023 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 Matilda Atkinson JR, DO 04/16/2023 R05.9 Cough, unspecified Matilda Atkinson JR, DO 04/11/2023 Z00.01 Encounter for ge neral adult medical examination with abnormal findings Matilda Atkinson JR, DO 04/11/2023 E11.22 Type 2 diabetes mellitus with diabetic chronic kidney disease Matilda Atkinson JR, DO 04/11/2023 E11.51 Type 2 diabetes mellitus with diabetic peripheral angiopathy without gangrene Matilda Atkinson JR, DO 04/11/2023 E11.59 Type 2 diabetes mellitus with other circulatory complications Matilda L. Poly JR, DO 04/11/2023 I73.9 Peripheral vascular disease, [...] hyperp arathyroidism of renal origin Lab - [place] 04/04/2023 E78.00 Pure hypercholesterolemia, u nspecified Matilda Atkinson JR, DO 04/04/2023 E78.00 Pure hypercholesterolemia, u nspecified Lab - [place] 04/04/2023 E88.81 Metabolic syndrome Matilda Atkinson JR, [...] Acute kidney failure, unspec ified Lab - [place] 02/28/2023 E55.9 Vitamin D deficiency, unspec ified Matilda Atkinson JR, DO 02/28/2023 E55.9 Vitamin D deficiency, unspec ified Lab - [place] 02/28/2023 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, stag e 4 (severe) Matilda Atkinson JR, DO 02/28/2023 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, stag e 4 (severe) Lab - [place] 02/13/2023 I50.9 Heart failure, unspecified K dusty Atkinson JR, DO 02/13/2023 I50.9 Heart failure, unspecified L ab - [place] 02/13/2023 E11.21 Type 2 diabetes mellitus with diabetic nephropathy Matilda Atkinson JR, DO 02/05/2023 N17.9 Acute kidney failure, unspec ified Matilda Atkinson JR, DO 02/05/2023 N17.9 Acute kidney failure, unspec ified Lab - [place] 02/05/2023 E55.9 Vitamin D deficiency, unspec ified Matilda Atkinson JR, DO 02/05/2023 E55.9 Vitamin D deficiency, unspec ified Lab - [place] 02/05/2023 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, stag e 4 (severe) Matilda Atkinson JR, DO 02/05/2023 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, stag e 4 (severe) Lab - [place] 01/15/2023 N40.1 Benign prostatic hyperplasia with lower urinary tract symptoms Pierre Costa PA-C 01/15/2023 A41.50 Gram-negative sepsis, unspec ified Pierre Costa PA-C 11/09/2022 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, stag e 4 (severe) Matilda Atkinson JR, DO 11/09/2022 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, stag e 4 (severe) Lab - [place] 11/09/2022 D64.9 Anemia, unspecified Matilda Atkinson JR, DO 11/09/2022 D64.9 Anemia, unspecified Lab [place] [facility] Plan of Treatment Future Appointment(s):* 07/11/2023 6:30 am - [facility] [place] [facility] [place] * 07/17/2023 11:00 am - Matilda Atkinson JR, DO at [place] 04/16/2023 - Matilda Atkinson JR, DO* 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 * R05.9 Cough, unspecified Functional Status Description No Information Available Mental Status Description No Information Available Referrals Refer to Dr Reason for Referral Status Appt Didi Silva [address] [place] [address] Dr Hunter 3 [phone]
--- OUTSIDE RECORDS SUMMARY | 2023-08-21 23:53 | External Medical Summary ---
Author Name Unknown Address Unknown Organization K1[facility] [address] [place] [id number] Laboratory Report Ordering Provider Test Date Status DEMETRIO GREY 04/16/2023 09:52 Final Observation Date Value Abnormality Reference (Units ) Status Nuclear IgG Ab [Units/volume] in Serum by Flow cytometry (FC) 04/17/2023 11:08 NEGATIVE F inal Performing Location [facility] [address] [place] [id number]
--- OUTSIDE RECORDS SUMMARY | 2023-08-21 23:53 | External Medical Summary | Continuity of Care Document ---
Author Name MATILDA ATKINSON DO Address [address] [place] [address] [place] [address] Phone [phone] Organization [place] Address [address] [place] [address] RD, [address] [place] [address] Phone [phone] Care Team Providers Care Vice President Name Role Phone GI - Gastroenterology Care Team Information Rece Fermín Harrell MD Care Team Information Receiv er [phone] Rory Hodge Care Team Information Director Digital + [phone] Nixon Aden MD Care Team Information Director Digital + [phone] Abran Eugene JR - Interven tional Pain Medicine Care Team Information Director Digital [phone] Medardo Trinidad MD Care Team Information Receive r [phone] Sinan Marks MD Care Team Information Receive r [phone] Problems Active Problems Provider Date Chronic kidney [...] Atkinson JR, DO On set: 09/01/2015 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 Case Folder (Cu rrent) Use Encounter Matilda Atkinson JR [...] SIG Qnty Indications Ordering Provider Date Clopidogrel Srynbfxmy19ap Tablets Take One (1) Tablet By Mouth Every Day 30tabs I73.9 Matilda L. Poly JR, DO 08/24/2021 Citalopram Ktgidvnvjvmt43ou Tablets Take One (1) Tablet By Mouth Every Day 90tabs F33.1 Matilda Atkinson JR, DO 06/23/2019 Kkaplcumarr8rt Tablets Take One Tablet By Mouth Once Daily 30tabs Matilda Atkinson JR, DO 11/12/2017 Oxycodone-Acetaminophe n7.5-325mg Tablets take one tablet every 6 h as needed pain--ongoing therapy 60tabs Matilda Atkinson JR, DO 01/22/2014 Atorvastatin Qvlisul56oc Tablets Take One Tablet By Mouth AT Bedtime 90tabs E78.0 Matilda Atkinson JR, DO E78.00 Swyfyl37315Vqor/ML Solution 40,000 units monthly Unknown Albuterol Sulfate DNO243(90B ase) mcg/Act Aerosol 2 puffs by mouth every 4-6 hours as needed wheezing Unknown Jftnmjyfcz07kv Tablets 1 by mouth twice a day 180tabs Unknown Pantoprazole Fvlege74qc Tabl ets DR 1 by mouth every day Unknown 000 Uolinti2sw Tablets 1 by mouth twice a day Unknown Bumetanide0.5mg Tablets 1 or 2 by mouth every day as needed Unknown Tamsulosin HCL0.4mg Capsules 1 by mouth every day Unknown History Medications Nitrofurantoin Monohyd Sutca959ce Capsules take 1 capsule twice daily for 10 days 20caps Gisella Lisa MD, PhD 03/23/2023 - 04/10/2023 Txvlvxxmpo728kw Tablets take 1 tab by mouth twice [...] CPT Code Status Date Vaccine Lot # [id number] Given 10/04/2022 Influenza Vaccine High Do se 0.5ML [id number] U-FLU Given 10/04/2022 Influenza,Unspecified 55753 Given 08/11/2020 Influenza Vacci ne-Administered at another facility U-FLU Given 08/11/2020 Influenza,Unspecified U-FLU Given 08/23/2019 Influenza,Unspecified 81376 Given 08/23/2019 Influenza Vacci ne-Administered at another facility 30312 Given 07/11/2018 Influenza Vac, Split, Preservative Free High Dose Age 65 & > [id number] 33558 Given 10/02/2017 Pneumococcal Conjugate-Pr evnar 13 34985 Given 10/02/2017 Influenza Vac, Split, Preservative Free High Dose Age 65 & > [id number] Given 08/14/2016 Influenza Virus Vaccine, Quadrivalent, Im Use [id number] 47054 Given 09/01/2015 Influenza Vac, Split, Preservative Free High Dose Age 65 & > [id number] 35901 Given 09/01/2015 Pneumococcal Conjugate-Pr evnar 13 [id number] 50909 Given 07/21/2014 Influenza Vac, Split, Preservative Free High Dose Age 65 & > [id number] U-FLU Given 07/21/2014 Influenza,Unspecified 40613 Given 01/31/2014 Pneumococcal Vaccine/Pneu movax 23 82152 Given 07/17/2013 Influenza Vac, Split, Preservative Free High Dose Age 65 & > [id number] 61665 Given 07/24/2012 Influenza Vac, Split, Preservative Free High Dose Age 65 & > [id number] 12767 Given 07/04/2011 Influenza Vac, Split, Preservative Free High Dose Age 65 & > [id number] 35333 Given 08/16/2010 Pneumococcal Vaccine/Pneu movax 23 [id number] 90307 Given 10/21/2009 Influenza Vac, Split 3 Yr s And Up [id number] 39988 Given 07/24/2008 Influenza Vac, Split 3 Yr s And Up U-FLU Given 07/22/2008 Influenza,Unspecified 02990 Given 10/27/2004 Influenza Vac, Split 3 Yr s And Up 98958 Given 07/22/2004 Pneumococcal Vaccine/Pneu movax 23 [id number] Refused 04/11/2023 Moderna Sars-Co v-2 (Covid-19) vaccine, 100 mcg/ 0.5 mL 12Y+ 63287 Refused 04/11/2023 Shingrix 89593 Refused 07/26/2021 Moderna Sars-Co v-2 (Covid-19) vaccine, 100 mcg/ 0.5 mL 12Y+ 37866 Refused 09/28/2020 Tdap (Tetanus, diphtheria & acel. pertussis) Adacel or Boostrix 22937 Refused 09/28/2020 Shingrix 60618 Refused 08/19/2020 Influenza Virus Vaccine, Quadrivalent, Im Use 01826 Refused 07/11/2016 Influenza Vac, Split, Preservative Free [...] 5'6" BMI (Body Mass Index) 32.6 kg/m2 [place] Body Weight 142 lb Results Test Acquired Date Facility Test Result H/L Range N ote Microalbumin Urine 04/11/2023 [facility] [address] [place] [address] [phone] Urine Creat 74 mg/dL Comment Microalbumin 7.8 mg/dL High 0.0-1.8 1 ug/mgCREATININE 105 ug/mg High 0-29 CBC W/Diff 04/04/2023 [facility]. [address] [place] [address] [phone] WBC 6.1 10^3/M3 3.1-9.2 RBC 3.34 10^6/M3 Low 4.00-5.80 HGB 9.4 GR/DL Low 12.5-17.5 HCT 29.3 % Low 37.5-52.5 MCV 88.0 CUMICR 82.6-95.8 MCH 28.3 PICOGR 27.9-32.9 MCHC 32.2 % Low 32.6-35.4 RDW 16.5 % High 11.4-14.6 PLT 285 10^3/M3 140-350 MPV 7.9 CUMICR 7.0-10.6 %Neut 68.7 % 40.0-75.0 %Lymph 7.8 % Low 17.0-45.0 %Scioto 9.3 % 1.0-11.0 %Eos 13.1 % High 0.0-6.0 %Baso 1.1 % 0.0-2.0 #Neut 4.2 10^3/M3 1.5-8.0 #Lymph 0.5 10^3/M3 Low 0.8-3.2 #Scioto 0.6 10^3/M3 0.0-0.8 #Eos 0.8 10^3/m3 High 0.0-0.4 #Baso 0.1 10^3/m3 0.0-0.2 Comp. Met 04/04/2023 [facility]. [address] [place] [address] [phone] Glucose 116 mg/dL High 70-110 BUN 45 [...] GFR 24 ML/MIN/1.73SQM Low >60 Hba1c 04/04/2023 [facility]. [address] [place] [address] [phone] A1c 5.70 % 4.70-6.50 2 Laboratory test finding 04/04/2023 [facility]. [address] [place] [address] [phone] Ferritin 50.30 ng/mL 22.00-415.0 Iron Panel([facility]) 04/04/2023 [facility]. [address] [place] [address] [phone] Iron 33 g /dL Low 45-140 % Saturation 11 % Low 30-35 Lipid 04/04/2023 [facility]. [address] [place] [address] [phone] Cholesterol 121 mg/dL 0-200 3 Triglyceride 71 mg/dL 0-150 4 HDLD 38 mg/dL See Comment 5 Measured LDL 70 mg/dL 0-130 6 Calc VLDL 14.2 mg/dL See Comment 7 Chol/HDL 3.2 RATIO See Comment 8 Non-HDL 83 mg/dL See Comment 9 Laboratory test finding 04/04/2023 [facility]. [address] [place] [address] [phone] TSH 2.51 uIU/mL 0.50-6.00 FRT4 0.79 ng/dL 0.75-1.54 Tibc 04/04/2023 [facility]. [address] [place], [place] [address] [phone] Tibc 297 g /dL 260-400 Transferrin 212 mg/dL 200-400 Urine Isolate#1 03/19/2023 [facility]. [address] [place] [address] [phone] Isolate #1 Enterococcus mar <SEE NOTE> 10 Ampicillin >8 R Ciprofloxacin >2 R Levofloxacin >4 R Linezolid <=2 S Nitrofurantoin <=32 S Penicillin >8 R Rifampim >2 R Tetracycline >8 R Vancomycin >16 R Urinalysis 03/19/2023 [facility]. [address] [place], [place] [id number] [phone] Color LIGHT-YELLOW Appearance CLEAR Clear Spec.Grav. 1.010 1.005-1.025 Leukocytes LARGE Abnormal Negative Nitrite NEGATIVE Negative PH 6.0 6.0-7.5 Protein TRACE Abnormal Negative Urine Glucose NEGATIVE Negative Ketone NEGATIVE Negative Urobilinogen NORMAL E.U./DL Normal Bilirubin NEGATIVE Negative Blood NEGATIVE Negative WBC-U TNTC /HPF Abnormal 0-5/HPF RBC-U 3-5 /HPF 0-5/HPF Bacteria 1+ Abnormal None Seen Squamous 0-2 /HPF 0-5/HPF Laboratory test finding 03/19/2023 [facility]. [address] [place] [address] [phone] BNP 904.0 pg/mL Critical high 0.0-100.0 BMP 03/19/2023 [facility]. [address] [place] [address] [phone] Glucose 132 mg/dL High 70-110 BUN 43 mg/dL High 6-25 Creatinine 3.1 mg/dL Critical high 0.7-1.3 11 Sodium 141 mEq/L 135-145 Potassium 4.0 mEq/L 3.5-5.0 Chloride 105 mEq/L 95-107 Co-2 22 mEq/L Low 24-31 Calcium 9.1 mg/dL 8.5-10.6 GFR 21 ML/MIN/1.73SQM Low >60 Urine Culture 03/19/2023 [facility] [address] [place] [address] [phone] Urine Source URINE Total Col Count >100,000 COL/CC Laboratory test finding 03/19/2023 [facility] (In Office Test) Sars Rna QL PCR - In Office Not Detected. CBC W/Diff 03/19/2023 [facility]. [address] [place] [address] [phone] WBC 6.3 10^3/M3 3.1-9.2 RBC 3.06 10^6/M3 Low 4.00-5.80 HGB 9.0 GR/DL Low 12.5-17.5 HCT 29.4 % Low 37.5-52.5 MCV 95.8 CUMICR 82.6-95.8 MCH 29.4 PICOGR 27.9-32.9 MCHC 30.7 % Low 32.6-35.4 RDW 17.6 % High 11.4-14.6 PLT 266 10^3/M3 140-350 MPV 8.2 CUMICR 7.0-10.6 %Neut 76.3 % High 40.0-75.0 %Lymph 7.3 % Low 17.0-45.0 %Scioto 8.7 % 1.0-11.0 %Eos 7.0 % High 0.0-6.0 %Baso 0.7 % 0.0-2.0 #Neut 4.8 10^3/M3 1.5-8.0 #Lymph 0.5 10^3/M3 Low 0.8-3.2 #Scioto 0.5 10^3/M3 0.0-0.8 #Eos 0.4 10^3/m3 0.0-0.4 #Baso 0.0 10^3/m3 0.0-0.2 Renal Panel 02/28/2023 [facility]. [address] [place] [address] [phone] Glucose 96 mg/dL 70-110 12 BUN 56 mg/dL High 6-25 Creatinine 2.9 mg/dL High 0.7-1.3 Sodium 142 mEq/L 135-145 Potassium 4.4 mEq/L 3.5-5.0 Chloride 109 mEq/L High 95-107 Co-2 23 mEq/L Low 24-31 Calcium 8.4 mg/dL Low 8.5-10.6 Phosphorus 3.3 mg/dL 2.5-4.8 Albumin 3.5 g/dL 3.0-5.2 GFR 22 Low >60 Laboratory test finding 02/28/2023 [facility]. [address] [place] [address] [phone] Vitd-25Oh 46 ng/mL 30-100 CBC No Diff 02/28/2023 [facility]. [address] [place] [address] [phone] WBC 5.9 10^3/M3 3.1-9.2 RBC 2.90 10^6/M3 Low 4.00-5.80 HGB 8.6 GR/DL Low 12.5-17.5 HCT 27.9 % Low 37.5-52.5 MCV 96.3 CUMICR High 82.6-95.8 MCH 29.6 PICOGR 27.9-32.9 MCHC 30.8 % Low 32.6-35.4 RDW 18.5 % High 11.4-14.6 PLT 238 10^3/M3 140-350 MPV 8.0 CUMICR 7.0-10.6 BMP 02/13/2023 [facility]. [address] [place] [address] [phone] Glucose 99 mg/dL 70-110 13, 14 BUN 59 mg/dL High 6-25 Creatinine 3.0 mg/dL High 0.7-1.3 Sodium 142 mEq/L 135-145 Potassium 3.8 mEq/L 3.5-5.0 Chloride 106 mEq/L 95-107 Co-2 27 mEq/L 24-31 Calcium 9.0 mg/dL 8.5-10.6 GFR 22 Low >60 Laboratory test finding 02/13/2023 [facility]. [address] [place] [address] [phone] BNP 490.0 pg/mL Critical high 0.0-100.0 15 H & H 02/13/2023 [facility]. [address] [place] [address] [phone] HGB 9.9 GR/DL Low 12.5-17.5 HCT 30.6 % Low 37.5-52.5 Laboratory test finding 02/13/2023 [facility] [address] [place] [address] [phone] Magnesium 2.1 mg/dL 1.7-2.8 Renal Panel 02/05/2023 [facility] [address] [place] [address] [phone] Glucose 104 mg/dL 70-110 16 BUN 42 mg/dL High 6-25 Creatinine 3.0 mg/dL High 0.7-1.3 Sodium 150 mEq/L High 135-145 Potassium 4.9 mEq/L 3.5-5.0 Chloride 114 mEq/L High 95-107 Co-2 25 mEq/L 24-31 Calcium 8.9 mg/dL 8.5-10.6 Phosphorus 3.7 mg/dL 2.5-4.8 Albumin 3.8 g/dL 3.0-5.2 GFR 22 Low >60 CBC No Diff 02/05/2023 [facility]. [address] [place] [address] [phone] WBC 5.1 10 3.1-9.2 RBC 3.28 10 Low 4.00-5.80 HGB 9.6 GR/DL Low 12.5-17.5 HCT 30.9 % Low 37.5-52.5 MCV 94.4 CUMICR 82.6-95.8 MCH 29.3 PICOGR 27.9-32.9 MCHC 31.1 % Low 32.6-35.4 RDW 17.8 % High 11.4-14.6 PLT 195 10 140-350 MPV 8.2 CUMICR 7.0-10.6 Laboratory test finding 02/05/2023 [facility]. [address] [place] [address] [phone] Vitd-25Oh 38 ng/mL 30-100 Renal Panel 11/09/2022 [facility]. [address] [place] [address] [phone] Glucose 96 mg/dL 70-110 17 BUN 50 mg/dL High 6-25 Creatinine 3.4 mg/dL Critical high 0.7-1.3 18 Sodium 141 mEq/L 135-145 Potassium 4.5 mEq/L 3.5-5.0 Chloride 108 mEq/L High 95-107 Co-2 21 mEq/L Low 24-31 Calcium 8.9 mg/dL 8.5-10.6 Phosphorus 4.3 mg/dL 2.5-4.8 Albumin 3.7 g/dL 3.0-5.2 GFR 19 Low >60 Laboratory test finding 11/09/2022 [facility]. [address] [place], [place] [address]83 [phone] Ferritin 64.20 ng/mL 22.00-415.0 CBC No Diff 11/09/2022 [facility]. [address] [place], [place] [address] [phone] WBC 7.2 10 3.1-9.2 RBC 3.66 10 Low 4.00-5.80 HGB 11.3 GR/DL Low 12.5-17.5 HCT 35.1 % Low 37.5-52.5 MCV 96.0 CUMICR High 82.6-95.8 MCH 30.9 PICOGR 27.9-32.9 MCHC 32.2 % Low 32.6-35.4 RDW 16.7 % High 11.4-14.6 PLT 243 10 140-350 MPV 7.7 CUMICR 7.0-10.6 Iron Panel([facility]) 11/09/2022 [facility] [address] [place], [place] [address] [phone] Iron 80 g /dL 45-140 19 % Saturation 24 % Low 30-35 Tibc 11/09/2022 [facility]. [address] [place], [place] [address] [phone] Tibc 337 g /dL 260-400 Transferrin 241 mg/dL 200-400 1 *[facility] USES MICROALBUMIN/CREATINE RATIO : [...] fax results t o Litzy Baez PA-C [phone] F- [phone] REPORT FAXED TO DOCT OR, REQUESTED ON REQUISITION.02/14/23 LM 15 CRITICAL RESULTS LUCI IFIED, FAXED, AND CALLED TO LASHON KOENIGDARIUS @ 4:09. 02/13/23 MH 16 REPORT FAXED TO DOCT OR, REQUESTED ON REQUISITION. 02.06.23 ESEQUIEL 17 Fax to [phone] [facility] P: [phone] 18 CRITICAL RESULTS LUCI IFIED, FAXED, AND CALLED TO AMANDA AT 4:50 PM ON 11/09/22 ALB 19 REPORT FAXED TO DOCT OR, REQUESTED ON REQUISITION.11/10/22 LM Procedures Date Code Description Status 04/16/2023 31870 Pulse Oximetry Single Determ ination Completed 04/16/2023 07409 Venipuncture Routine Complet ed 04/11/2023 50348 Fundus Eye Exam Completed 04/11/2023 3725F Screening Depression Perform ed Completed 04/11/2023 3288F Fall Risk Assessment Documen awais Completed 04/11/2023 3078F PVRP Diastolic BP <80 mmHg C ompleted 04/11/2023 3074F PVRP Systolic BP <130 mmHg C ompleted 04/11/2023 1100F PT Screened Futu re Fall Risk >/=2 Falls In Past Yr/1 W/Injury Completed 04/04/2023 05762 Venipuncture Routine Complet ed 03/19/2023 36863 Venipuncture Routine Complet ed 02/28/2023 97664 Venipuncture Routine Complet ed 02/13/2023 93928 Venipuncture Routine Complet ed 01/15/2023 1111F D/C Medications Reconciled W/Current Medications In Outpt MR Completed 01/12/2023 1111F D/C Medications Reconciled W/Current Medications In Outpt MR Completed 11/09/2022 42839 Venipuncture Routine Complet ed Medical Devices Description No Information Available Encounters Type Date Location Provider Dx Diagnosis Office Visit 04/16/2023 9:15a Kylie Atkinson JR, DO M15.9 Polyosteoarthritis, unspecified R05.9 Cough, unspecified Office Visit 04/11/2023 9:00a [place] JR, DO Z00.01 Encounter for general [...] with diabetic nephropathy Office Visit 03/19/2023 1:00p [place] Ovalel Ohnm acht, DO R06.02 Shortness of breath [...] hyperp arathyroidism of renal origin Lab - [place] 04/04/2023 E78.00 Pure hypercholesterolemia, u nspecified Matilda Atkinson JR, DO 04/04/2023 E78.00 Pure hypercholesterolemia, u nspecified Lab - [place] 04/04/2023 E88.81 Metabolic syndrome Matilda Atkinson JR, [...] Acute kidney failure, unspec ified Lab - [place] 02/28/2023 E55.9 Vitamin D deficiency, unspec ified Matilda Atkinson JR, DO 02/28/2023 E55.9 Vitamin D deficiency, unspec ified Lab - [place] 02/28/2023 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, stag e 4 (severe) Matilda Atkinson JR, DO 02/28/2023 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, stag e 4 (severe) Lab - [place] 02/13/2023 I50.9 Heart failure, unspecified K dusty Atkinson JR, DO 02/13/2023 I50.9 Heart failure, unspecified L ab - [place] 02/13/2023 E11.21 Type 2 diabetes mellitus with diabetic nephropathy Matilda Atkinson JR, DO 02/05/2023 N17.9 Acute kidney failure, unspec ified Matilda Atkinson JR, DO 02/05/2023 N17.9 Acute kidney failure, unspec ified Lab - [place] 02/05/2023 E55.9 Vitamin D deficiency, unspec ified Matilda Atkinson JR, DO 02/05/2023 E55.9 Vitamin D deficiency, unspec ified Lab - [place] 02/05/2023 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, stag e 4 (severe) Matilda Atkinson JR, DO 02/05/2023 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, stag e 4 (severe) Lab - [place] 01/15/2023 N40.1 Benign prostatic hyperplasia with lower urinary tract symptoms Pierre Costa PA-C 01/15/2023 A41.50 Gram-negative sepsis, unspec ified Pierre Costa PA-C 11/09/2022 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, stag e 4 (severe) Matilda Atkinson JR, DO 11/09/2022 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, stag e 4 (severe) Lab - [place] 11/09/2022 D64.9 Anemia, unspecified Matilda Atkinson JR, DO 11/09/2022 D64.9 Anemia, unspecified Lab - [place] [email or web address] Plan of Treatment Future Appointment(s):* 07/11/2023 6:30 am - [facility] [place] [facility] [place] * 07/17/2023 11:00 am - Matilda Atkinson JR, DO at [place] 04/16/2023 - Matilda Atkinson JR, DO* 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 * R05.9 Cough, unspecified Functional Status Description No Information Available Mental Status Description No Information Available Referrals Refer to Dr Reason for Referral Status Appt Didi Silva [address] [place] [address] Dr Hunter 8 [phone]
--- OUTSIDE RECORDS SUMMARY | 2023-08-21 23:53 | External Medical Summary ---
Author Name Unknown Address Unknown Organization [facility]:[address] [place] [address] Laboratory Report Ordering Provider Test Date Status DEMETRIO GREY 04/16/2023 09:52 Final Observation Date Value Abnormality Reference (Units ) Status WBC 04/16/2023 14:51 6.5 3.1-9.2 (10^3/M3) Final RBC 04/16/2023 14:51 3.57 Below low normal 4.00-5.80 (10^6/M3) Final Hemoglobin 04/16/2023 14:51 10.0 Below low normal 12.5-17.5 (GR/DL) Final HCT 04/16/2023 14:51 31.3 Below low normal 37.5-52.5 (%) Final MCV 04/16/2023 14:51 87.7 82.6-95.8 (CU MICR) Final MCH 04/16/2023 14:51 27.9 27.9-32.9 (AJ GR) Final MCHC 04/16/2023 14:51 31.9 Below low normal 32.6-35.4 (%) Final RDW 04/16/2023 14:51 17.5 Above high normal 11.4-14.6 (%) Final PLT 04/16/2023 14:51 263 140-350 (10^3/M3) Final MPV 04/16/2023 14:51 7.5 7.0-10.6 (CU MICR) Final Neutrophils/100 leukocytes in Blood 04/16/2023 14:51 71.5 40.0-75.0 (%) Final Lymphs % 04/16/2023 14:51 6.1 Below low normal 17.0-45.0 (%) Final Monos 04/16/2023 14:51 11.1 Above high normal 1.0-11.0 (%) Final %EOS 04/16/2023 14:51 10.6 Above high normal 0.0-6.0 (%) Final Basos 04/16/2023 14:51 0.7 0.0-2.0 (%) Final Neutrophils [#/volume] in Semen by Manual count 04/16/2023 14:51 4.7 1.5-8.0 (10^3/M3) Final Lymphs % 04/16/2023 14:51 0.4 Below low normal 0.8-3.2 (10^3/M3) Final Monos 04/16/2023 14:51 0.7 0.0-0.8 (10^3/M3) Final #EOS 04/16/2023 14:51 0.7 Above high normal 0.0-0.4 (10^3/m3) Final #BASO 04/16/2023 14:51 0.0 0.0-0.2 (10^3/m3) Final Performing Location [facility] [address] [place] [address]
--- OUTSIDE RECORDS SUMMARY | 2023-08-21 23:53 | External Medical Summary ---
Author Name Unknown Address Unknown Organization [facility] [address] [place] [id number] Laboratory Report Ordering Provider Test Date Status DEMETRIO GREY 04/16/2023 09:52 Final Observation Date Value Abnormality Reference (Units ) Status Rheumatoid Factor 04/16/2023 15:16 <10.0 0.0-2 0.0 (IU/mL) Final Performing Location [facility] [address] [place] [id number]
--- OUTSIDE RECORDS SUMMARY | 2023-08-21 23:53 | External Medical Summary | Continuity of Care Document ---
Author Name MATILDA ATKINSON DO Address [address] [place] [address] [place] [address] Phone [phone] Organization [place] Address [address] [place] [address] RD, [address] [place] [address] Phone [phone] Care Team Providers Care Coal Miner Name Role Phone GI - Gastroenterology Care Team Information Rece Fermín Harrell MD Care Team Information Receiv er [phone] Rory Hodge Care Team Information Windows Architect [phone] Nixon Aden MD Care Team Information Windows Architect [phone] Abran Eugene JR - Interven tional Pain Medicine Care Team Information Windows Architect [phone] Medardo Trinidad MD Care Team Information Receive r [phone] Sinan Marks MD Care Team Information Receive r [phone] Problems Active Problems Provider Date Chronic kidney [...] Atkinson JR, DO On set: 09/01/2015 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 Director Of Officiating (Cu rrent) Use Encounter Matilda Atkinson JR [...] SIG Qnty Indications Ordering Provider Date Clopidogrel Uvopntggs05ka Tablets Take One (1) Tablet By Mouth Every Day 30tabs I73.9 Matilda L. Poly JR, DO 08/24/2021 Citalopram Edyglqluvqjg63fg Tablets Take One (1) Tablet By Mouth Every Day 90tabs F33.1 Matilda Atkinson JR, DO 06/23/2019 Pikqyrlvjxx7mv Tablets Take One Tablet By Mouth Once Daily 30tabs Matilda Atkinson JR, DO 11/12/2017 Oxycodone-Acetaminophe n7.5-325mg Tablets take one tablet every 6 h as needed pain--ongoing therapy 60tabs Matilda Atkinson JR, DO 01/22/2014 Atorvastatin Yrxyitr84hx Tablets Take One Tablet By Mouth AT Bedtime 90tabs E78.0 Matilda Atkinson JR, DO E78.00 Bmtxqx80384Rvhw/ML Solution 40,000 units monthly Unknown Albuterol Sulfate QFO780(90B ase) mcg/Act Aerosol 2 puffs by mouth every 4-6 hours as needed wheezing Unknown Jdgpkuhpkq80lw Tablets 1 by mouth twice a day 180tabs Unknown Pantoprazole Uexmlt67rd Tabl ets DR 1 by mouth every day Unknown 000 Hvbdkoo0jo Tablets 1 by mouth twice a day Unknown Bumetanide0.5mg Tablets 1 or 2 by mouth every day as needed Unknown Tamsulosin HCL0.4mg Capsules 1 by mouth every day Unknown History Medications Nitrofurantoin Monohyd Ilycr448sp Capsules take 1 capsule twice daily for 10 days 20caps Gisella Lisa MD, PhD 03/23/2023 - 04/10/2023 Qebylkzgim066fj Tablets take 1 tab by mouth twice [...] CPT Code Status Date Vaccine Lot # 53374 Given 10/04/2022 Influenza Vaccine High Do se 0.5ML [id number] U-FLU Given 10/04/2022 Influenza,Unspecified 94546 Given 08/11/2020 Influenza Vacci ne-Administered at another facility U-FLU Given 08/11/2020 Influenza,Unspecified U-FLU Given 08/23/2019 Influenza,Unspecified 81434 Given 08/23/2019 Influenza Vacci ne-Administered at another facility 79670 Given 07/11/2018 Influenza Vac, Split, Preservative Free High Dose Age 65 & > [id number] 14050 Given 10/02/2017 Pneumococcal Conjugate-Pr evnar 13 64574 Given 10/02/2017 Influenza Vac, Split, Preservative Free High Dose Age 65 & > 29070 Given 08/14/2016 Influenza Virus Vaccine, Quadrivalent, Im Use [id number] 47676 Given 09/01/2015 Influenza Vac, Split, Preservative Free High Dose Age 65 & > [id number] 42559 Given 09/01/2015 Pneumococcal Conjugate-Pr evnar 13 [id number] 19467 Given 07/21/2014 Influenza Vac, Split, Preservative Free High Dose Age 65 & > [id number] U-FLU Given 07/21/2014 Influenza,Unspecified 33808 Given 01/31/2014 Pneumococcal Vaccine/Pneu movax 23 52095 Given 07/17/2013 Influenza Vac, Split, Preservative Free High Dose Age 65 & > [id number] 87810 Given 07/24/2012 Influenza Vac, Split, Preservative Free High Dose Age 65 & > [id number] 22345 Given 07/04/2011 Influenza Vac, Split, Preservative Free High Dose Age 65 & > [id number] 12001 Given 08/16/2010 Pneumococcal Vaccine/Pneu movax 23 [id number] 95007 Given 10/21/2009 Influenza Vac, Split 3 Yr s And Up [id number] 20280 Given 07/24/2008 Influenza Vac, Split 3 Yr s And Up U-FLU Given 07/22/2008 Influenza,Unspecified 69071 Given 10/27/2004 Influenza Vac, Split 3 Yr s And Up 78206 Given 07/22/2004 Pneumococcal Vaccine/Pneu movax 23 05242 Refused 04/11/2023 Moderna Sars-Co v-2 (Covid-19) vaccine, 100 mcg/ 0.5 mL 12Y+ 48283 Refused 04/11/2023 Shingrix 76452 Refused 07/26/2021 Moderna Sars-Co v-2 (Covid-19) vaccine, 100 mcg/ 0.5 mL 12Y+ 78487 Refused 09/28/2020 Tdap (Tetanus, diphtheria & acel. pertussis) Adacel or Boostrix 18316 Refused 09/28/2020 Shingrix 64011 Refused 08/19/2020 Influenza Virus Vaccine, Quadrivalent, Im Use 06828 Refused 07/11/2016 Influenza Vac, Split, Preservative Free [...] 5'6" BMI (Body Mass Index) 32.6 kg/m2 [place] Body Weight 142 lb Results Test Acquired Date Facility Test Result H/L Range N ote Lyme Disease AB W/RFX To Blot (Igg,Igm) 04/16/[address] [facility] [place] [address] Lyme AB Screen <0.90 index Normal 1 Laboratory test finding 04/16/[address] [facility] [place] [address] Clinical PDF Report [id number] SEE IMAGE Microalbumin Urine 04/11/2023 [facility] [address] [place], [place] [id number] Urine Creat 74 mg/dL Comment Microalbumin 7.8 mg/dL High 0.0-1.8 2 ug/mgCREATININE 105 ug/mg High 0-29 CBC W/Diff 04/04/2023 [facility] [address] [place] [address] [phone] WBC 6.1 10^3/M3 3.1-9.2 RBC 3.34 10^6/M3 Low 4.00-5.80 HGB 9.4 GR/DL Low 12.5-17.5 HCT 29.3 % Low 37.5-52.5 MCV 88.0 CUMICR 82.6-95.8 MCH 28.3 PICOGR 27.9-32.9 MCHC 32.2 % Low 32.6-35.4 RDW 16.5 % High 11.4-14.6 PLT 285 10^3/M3 140-350 MPV 7.9 CUMICR 7.0-10.6 %Neut 68.7 % 40.0-75.0 %Lymph 7.8 % Low 17.0-45.0 %[place] 9.3 % 1.0-11.0 %Eos 13.1 % High 0.0-6.0 %Baso 1.1 % 0.0-2.0 #Neut 4.2 10^3/M3 1.5-8.0 #Lymph 0.5 10^3/M3 Low 0.8-3.2 #[place] 0.6 10^3/M3 0.0-0.8 #Eos 0.8 10^3/m3 High 0.0-0.4 #Baso 0.1 10^3/m3 0.0-0.2 Comp. Met 04/04/2023 [facility] [place], [place] [id number] [phone] Glucose 116 mg/dL High 70-110 BUN 45 [...] GFR 24 ML/MIN/1.73SQM Low >60 Hba1c 04/04/2023 [facility] [address] [place] [address] [phone] A1c 5.70 % 4.70-6.50 3 Laboratory test finding 04/04/2023 [facility] [address] [place] [address] [phone] Ferritin 50.30 ng/mL 22.00-415.0 Iron Panel([facility]) 04/04/2023 [facility] [address] [place] [id number] [phone] Iron 33 g /dL Low 45-140 % Saturation 11 % Low 30-35 Lipid 04/04/2023 [facility] [address] [place] [address] [phone] Cholesterol 121 mg/dL 0-200 4 Triglyceride 71 mg/dL 0-150 5 HDLD 38 mg/dL See Comment 6 Measured LDL 70 mg/dL 0-130 7 Calc VLDL 14.2 mg/dL See Comment 8 Chol/HDL 3.2 RATIO See Comment 9 Non-HDL 83 mg/dL See Comment 10 Laboratory test finding 04/04/2023 [facility] [address] [place] [address] [phone] TSH 2.51 uIU/mL 0.50-6.00 FRT4 0.79 ng/dL 0.75-1.54 Tibc 04/04/2023 [facility] [address] [place] [address] [phone] Tibc 297 g /dL 260-400 Transferrin 212 mg/dL 200-400 Urine Isolate#1 03/19/2023 [facility] [address] [place] [address] [phone] Isolate #1 Enterococcus mar <SEE NOTE> 11 Ampicillin >8 R Ciprofloxacin >2 R Levofloxacin >4 R Linezolid <=2 S Nitrofurantoin <=32 S Penicillin >8 R Rifampim >2 R Tetracycline >8 R Vancomycin >16 R Urinalysis 03/19/2023 [facility] [address] [place] [address] [phone] Color LIGHT-YELLOW Appearance CLEAR Clear Spec.Grav. 1.010 1.005-1.025 Leukocytes LARGE Abnormal Negative Nitrite NEGATIVE Negative PH 6.0 6.0-7.5 Protein TRACE Abnormal Negative Urine Glucose NEGATIVE Negative Ketone NEGATIVE Negative Urobilinogen NORMAL E.U./DL Normal Bilirubin NEGATIVE Negative Blood NEGATIVE Negative WBC-U TNTC /HPF Abnormal 0-5/HPF RBC-U 3-5 /HPF 0-5/HPF Bacteria 1+ Abnormal None Seen Squamous 0-2 /HPF 0-5/HPF Laboratory test finding 03/19/2023 [facility] [address] [place] [address] [phone] BNP 904.0 pg/mL Critical high 0.0-100.0 BMP 03/19/2023 [facility] [address] [place] [address] [phone] Glucose 132 mg/dL High 70-110 BUN 43 mg/dL High 6-25 Creatinine 3.1 mg/dL Critical high 0.7-1.3 12 Sodium 141 mEq/L 135-145 Potassium 4.0 mEq/L 3.5-5.0 Chloride 105 mEq/L 95-107 Co-2 22 mEq/L Low 24-31 Calcium 9.1 mg/dL 8.5-10.6 GFR 21 ML/MIN/1.73SQM Low >60 Urine Culture 03/19/2023 [facility] [address] [place], [place] [id number] [phone] Urine Source URINE Total Col Count >100,000 COL/CC Laboratory test finding 03/19/2023 [facility] (In Office Test) Sars Rna QL PCR - In Office Not Detected. CBC W/Diff 03/19/2023 [facility] [address] [place], [place] [phone] [phone] WBC 6.3 10^3/M3 3.1-9.2 RBC 3.06 10^6/M3 Low 4.00-5.80 HGB 9.0 GR/DL Low 12.5-17.5 HCT 29.4 % Low 37.5-52.5 MCV 95.8 CUMICR 82.6-95.8 MCH 29.4 PICOGR 27.9-32.9 MCHC 30.7 % Low 32.6-35.4 RDW 17.6 % High 11.4-14.6 PLT 266 10^3/M3 140-350 MPV 8.2 CUMICR 7.0-10.6 %Neut 76.3 % High 40.0-75.0 %Lymph 7.3 % Low 17.0-45.0 %[place] 8.7 % 1.0-11.0 %Eos 7.0 % High 0.0-6.0 %Baso 0.7 % 0.0-2.0 #Neut 4.8 10^3/M3 1.5-8.0 #Lymph 0.5 10^3/M3 Low 0.8-3.2 #[place] 0.5 10^3/M3 0.0-0.8 #Eos 0.4 10^3/m3 0.0-0.4 #Baso 0.0 10^3/m3 0.0-0.2 Renal Panel 02/28/2023 [facility] [address] [place] [address] [phone] Glucose 96 mg/dL 70-110 13 BUN 56 mg/dL High 6-25 Creatinine 2.9 mg/dL High 0.7-1.3 Sodium 142 mEq/L 135-145 Potassium 4.4 mEq/L 3.5-5.0 Chloride 109 mEq/L High 95-107 Co-2 23 mEq/L Low 24-31 Calcium 8.4 mg/dL Low 8.5-10.6 Phosphorus 3.3 mg/dL 2.5-4.8 Albumin 3.5 g/dL 3.0-5.2 GFR 22 Low >60 Laboratory test finding 02/28/2023 [facility] [address] [place] [address] [phone] Vitd-25Oh 46 ng/mL 30-100 CBC No Diff 02/28/2023 [facility] [address] [place] [address] [phone] WBC 5.9 10^3/M3 3.1-9.2 RBC 2.90 10^6/M3 Low 4.00-5.80 HGB 8.6 GR/DL Low 12.5-17.5 HCT 27.9 % Low 37.5-52.5 MCV 96.3 CUMICR High 82.6-95.8 MCH 29.6 PICOGR 27.9-32.9 MCHC 30.8 % Low 32.6-35.4 RDW 18.5 % High 11.4-14.6 PLT 238 10^3/M3 140-350 MPV 8.0 CUMICR 7.0-10.6 BMP 02/13/2023 [facility] 1 [place] [address] [phone] Glucose 99 mg/dL 70-110 14, 15 BUN 59 mg/dL High 6-25 Creatinine 3.0 mg/dL High 0.7-1.3 Sodium 142 mEq/L 135-145 Potassium 3.8 mEq/L 3.5-5.0 Chloride 106 mEq/L 95-107 Co-2 27 mEq/L 24-31 Calcium 9.0 mg/dL 8.5-10.6 GFR 22 Low >60 Laboratory test finding 02/13/2023 [facility] [address] [place] [address] [phone] BNP 490.0 pg/mL Critical high 0.0-100.0 16 H & H 02/13/2023 [facility] [address] [place] [address] [phone] HGB 9.9 GR/DL Low 12.5-17.5 HCT 30.6 % Low 37.5-52.5 Laboratory test finding 02/13/2023 [facility] [address] [place] [address] [phone] Magnesium 2.1 mg/dL 1.7-2.8 Renal Panel 02/05/2023 [facility] [address] [place] [address] [phone] Glucose 104 mg/dL 70-110 17 BUN 42 mg/dL High 6-25 Creatinine 3.0 mg/dL High 0.7-1.3 Sodium 150 mEq/L High 135-145 Potassium 4.9 mEq/L 3.5-5.0 Chloride 114 mEq/L High 95-107 Co-2 25 mEq/L 24-31 Calcium 8.9 mg/dL 8.5-10.6 Phosphorus 3.7 mg/dL 2.5-4.8 Albumin 3.8 g/dL 3.0-5.2 GFR 22 Low >60 CBC No Diff 02/05/2023 [facility] [address] [place] [address] [phone] WBC 5.1 10 3.1-9.2 RBC 3.28 10 Low 4.00-5.80 HGB 9.6 GR/DL Low 12.5-17.5 HCT 30.9 % Low 37.5-52.5 MCV 94.4 CUMICR 82.6-95.8 MCH 29.3 PICOGR 27.9-32.9 MCHC 31.1 % Low 32.6-35.4 RDW 17.8 % High 11.4-14.6 PLT 195 10 140-350 MPV 8.2 CUMICR 7.0-10.6 Laboratory test finding 02/05/2023 [facility] [address] [place] [address] [phone] Vitd-25Oh 38 ng/mL 30-100 Renal Panel 11/09/2022 [facility] [address] [place] [address] [phone] Glucose 96 mg/dL 70-110 18 BUN 50 mg/dL High 6-25 Creatinine 3.4 mg/dL Critical high 0.7-1.3 19 Sodium 141 mEq/L 135-145 Potassium 4.5 mEq/L 3.5-5.0 Chloride 108 mEq/L High 95-107 Co-2 21 mEq/L Low 24-31 Calcium 8.9 mg/dL 8.5-10.6 Phosphorus 4.3 mg/dL 2.5-4.8 Albumin 3.7 g/dL 3.0-5.2 GFR 19 Low >60 Laboratory test finding 11/09/2022 [facility] [address] [place] [address] [phone] Ferritin 64.20 ng/mL 22.00-415.0 CBC No Diff 11/09/2022 [facility] 1 [place], [place] [address] [phone] WBC 7.2 10 3.1-9.2 RBC 3.66 10 Low 4.00-5.80 HGB 11.3 GR/DL Low 12.5-17.5 HCT 35.1 % Low 37.5-52.5 MCV 96.0 CUMICR High 82.6-95.8 MCH 30.9 PICOGR 27.9-32.9 MCHC 32.2 % Low 32.6-35.4 RDW 16.7 % High 11.4-14.6 PLT 243 10 140-350 MPV 7.7 CUMICR 7.0-10.6 Iron Panel([facility]) 11/09/2022 [facility] 1 [place], [place] [phone] Iron 80 g /dL 45-140 20 % Saturation 24 % Low 30-35 Tibc 11/09/2022 [facility] 1 [place], [place] [address] [phone] Tibc 337 g /dL 260-400 Transferrin 241 [...] when erythema migrans is apparent. 2 *[facility] USES MICROALBUMIN/CREATINE RATIO : [...] 14 Please fax results agatha Baez PA-C [phone] F- [phone] 15 REPORT FAXED TO DOCT OR, REQUESTED ON REQUISITION.02/14/23 LM 16 CRITICAL RESULTS LUCI IFIED, FAXED, AND CALLED TO LASHON HENRY @ 4:09. 02/13/23 MH 17 REPORT FAXED TO DOCT OR, REQUESTED ON REQUISITION. 02.06.23 ESEQUIEL 18 Fax to [phone] [facility] P: [phone] 19 CRITICAL RESULTS LUCI IFIED, FAXED, AND CALLED TO AMANDA AT 4:50 PM ON 11/09/22 ALB 20 REPORT FAXED TO DOCT OR, REQUESTED ON REQUISITION.11/10/22 LM Procedures Date Code Description Status 04/16/2023 26017 Pulse Oximetry Single Determ ination Completed 04/16/2023 45970 Venipuncture Routine Complet ed 04/11/2023 98067 Fundus Eye Exam Completed 04/11/2023 3725F Screening Depression Perform ed Completed 04/11/2023 3288F Fall Risk Assessment Documen awais Completed 04/11/2023 3078F PVRP Diastolic BP <80 mmHg C ompleted 04/11/2023 3074F PVRP Systolic BP <130 mmHg C ompleted 04/11/2023 1100F PT Screened Futu re Fall Risk >/=2 Falls In Past Yr/1 W/Injury Completed 04/04/2023 62025 Venipuncture Routine Complet ed 03/19/2023 99188 Venipuncture Routine Complet ed 02/28/2023 00389 Venipuncture Routine Complet ed 02/13/2023 51155 Venipuncture Routine Complet ed 01/15/2023 1111F D/C Medications Reconciled W/Current Medications In Outpt MR Completed 01/12/2023 1111F D/C Medications Reconciled W/Current Medications In Outpt MR Completed 11/09/2022 13596 Venipuncture Routine Complet ed Medical Devices Description No Information Available Encounters Type Date Location Provider Dx Diagnosis Office Visit 04/16/2023 9:15a Kylie Atkinson JR, DO M15.9 Polyosteoarthritis, unspecified R05.9 Cough, unspecified Office Visit 04/11/2023 9:00a Kylie Atkinson JR, DO Z00.01 Encounter for general adult medical exam w abnormal findings 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 acht, DO R06.02 Shortness of breath Office Visit 01/15/2023 11:00a Kylie cortes, PARobbieC N40.1 Benign prostatic hyperplasia with lower urinary tract symp A41.50 Gram-negative sepsis , unspecified Assessments Date Code Description Provider 04/16/2023 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 Matilda Atkinson JR, DO 04/16/2023 R05.9 Cough, unspecified Matilda Atkinson JR, DO 04/11/2023 Z00.01 Encounter for [facility] adult medical examination with abnormal [...] DO 04/11/2023 I10 Essential (primary) hyperten lindy Matidla Atkinson JR, DO 04/11/2023 E03.9 Hypothyroidism, unspecified [...] arathyroidism of renal origin Lab - [place] 04/04/2023 E78.00 Pure hypercholesterolemia, u nspecified Matilda Atkinson JR, DO 04/04/2023 E78.00 Pure hypercholesterolemia, u nspecified Lab - [place] 04/04/2023 E88.81 Metabolic syndrome Matilda Atkinson JR, [...] kidney failure, unspec ified Lab - [place] 02/28/2023 E55.9 Vitamin D deficiency, unspec ified Matilda Atkinson JR, DO 02/28/2023 E55.9 Vitamin D deficiency, unspec ified Lab - [place] 02/28/2023 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, stag e 4 (severe) Matilda Atkinson JR, DO 02/28/2023 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, stag e 4 (severe) Lab - [place] 02/13/2023 I50.9 Heart failure, unspecified K dusty Atkinson JR, DO 02/13/2023 I50.9 Heart failure, unspecified L ab - [place] 02/13/2023 E11.21 Type 2 diabetes mellitus with diabetic nephropathy Matilda Atkinson JR, DO 02/05/2023 N17.9 Acute kidney failure, unspec ified Matilda Atkinson JR, DO 02/05/2023 N17.9 Acute kidney failure, unspec ified Lab - [place] 02/05/2023 E55.9 Vitamin D deficiency, unspec ified Matilda Atkinson JR, DO 02/05/2023 E55.9 Vitamin D deficiency, unspec ified Lab - [place] 02/05/2023 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, stag e 4 (severe) Matilda Atkinson JR, DO 02/05/2023 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, stag e 4 (severe) Lab - [place] 01/15/2023 N40.1 Benign prostatic hyperplasia with lower urinary tract symptoms Pierre Costa PA-C 01/15/2023 A41.50 Gram-negative sepsis, unspec ified Pierre Costa PA-C 11/09/2022 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, stag e 4 (severe) Matilda Atkinson JR, DO 11/09/2022 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, stag e 4 (severe) Lab - [place] 11/09/2022 D64.9 Anemia, unspecified Matilda Atkinson JR, DO 11/09/2022 D64.9 Anemia, unspecified [facility] - [place] Plan of Treatment Future Appointment(s):* 07/11/2023 6:30 am - [facility] [place] * 07/17/2023 11:00 am - Matilda Atkinson JR DO at [place] 04/16/2023 - Matilda Atkinson JR, DO* 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 * R05.9 Cough, unspecified Functional Status Description No Information Available Mental Status Description No Information Available Referrals Refer to Reason for Referral Status Appt Timothy Zi Silva [address] [place] [address] Dr Hunter 7 [phone]
--- OUTSIDE RECORDS SUMMARY | 2023-08-21 23:54 | External Medical Summary | Continuity of Care Document ---
Author Name MATILDA ATKINSON DO Address [address] [place] [address] [place] [address] Phone [phone] Organization [place] Address [address] [place] [address] RD, [place] [address] Phone [phone] Care Team Providers Care Etl Bi Developer Name Role Phone GI - Gastroenterology Care Team Information Rece Fermín Harrell MD Care Team Information Receiv er [phone] Rory Hodge Care Team Information [employer] + [phone] Nixon Aden MD Care Team Information [employer] + [phone] Abran Eugene JR - Interven tional Pain Medicine Care Team Information [employer] [phone] Medardo Trinidad MD Care Team Information Receive r [phone] Sinan Marks MD Care Team Information Receive r [phone] Problems Active Problems Provider Date Chronic kidney [...] Atkinson JR, DO On set: 09/01/2015 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 Veget[employer] Work[employer] (Cu rrent) Use Encounter Matilda Atkinson JR [...] Never Smoked A Pipe Smoking Status Reviewed: 04/11/23 Never Smoked A Pipe Smokeless Tobacco 04/11/2023 Current Smokel ess Tobacco User, Uses 9 Times Daily ETOH Use Denies alcohol use Recreational Drug Use Denies Drug Use Allergies and adverse reactions Description No Known Drug Allergies Medications Active Medications SIG Qnty Indications Ordering Provider Date Clopidogrel Kwkhtrado05zf Tablets Take One (1) Tablet By Mouth Every Day 30tabs I73.9 Matilda L. Poly JR, DO 08/24/2021 Citalopram Mrawqpxalgxa26ph Tablets Take One (1) Tablet By Mouth Every Day 90tabs F33.1 Matilda Atkinson JR, DO 06/23/2019 Akulyrlfszp8jd Tablets Take One Tablet By Mouth Once Daily 30tabs Matilda Atkinson JR, DO 11/12/2017 Oxycodone-Acetaminophe n7.5-325mg Tablets take one tablet every 6 h as needed pain--ongoing therapy 60tabs Matilda Atkinson JR, DO 01/22/2014 Atorvastatin Tozvwtj15lm Tablets Take One Tablet By Mouth AT Bedtime 90tabs E78.0 Matilda Atkinson JR, DO E78.00 Pguenj92868Ynyt/ML Solution 40,000 units monthly Unknown Albuterol Sulfate VHO545(90B ase) mcg/Act Aerosol 2 puffs by mouth every 4-6 hours as needed wheezing Unknown Uhjdubhfyo77yi Tablets 1 by mouth twice a day 180tabs Unknown Pantoprazole Brpzws38oc Tabl ets DR 1 by mouth every day Unknown 000 Pteediw8sp Tablets 1 by mouth twice a day Unknown Bumetanide0.5mg Tablets 1 or 2 by mouth every day as needed Unknown Tamsulosin HCL0.4mg Capsules 1 by mouth every day Unknown History Medications Nitrofurantoin Monohyd Jpyeg771le Capsules take 1 capsule twice daily for 10 days 20caps Gisella Lisa MD, PhD 03/23/2023 - 04/10/2023 Rpwighuyzf363pp Tablets take 1 tab by mouth twice [...] CPT Code Status Date Vaccine Lot # [id number] Given 10/04/2022 Influenza Vaccine High Do se 0.5ML [id number] U-FLU Given 10/04/2022 Influenza,Unspecified 39688 Given 08/11/2020 Influenza Vacci ne-Administered at another facility U-FLU Given 08/11/2020 Influenza,Unspecified U-FLU Given 08/23/2019 Influenza,Unspecified 29367 Given 08/23/2019 Influenza Vacci ne-Administered at another facility 44793 Given 07/11/2018 Influenza Vac, Split, Preservative Free High Dose Age 65 & > [id number] 45473 Given 10/02/2017 Pneumococcal Conjugate-Pr evnar 13 47855 Given 10/02/2017 Influenza Vac, Split, Preservative Free High Dose Age 65 & > 65417 Given 08/14/2016 Influenza Virus Vaccine, Quadrivalent, Im Use [id number] 91261 Given 09/01/2015 Influenza Vac, Split, Preservative Free High Dose Age 65 & > [id number] 46763 Given 09/01/2015 Pneumococcal Conjugate-Pr evnar 13 [id number] 58267 Given 07/21/2014 Influenza Vac, Split, Preservative Free High Dose Age 65 & > [id number] U-FLU Given 07/21/2014 Influenza,Unspecified 06873 Given 01/31/2014 Pneumococcal Vaccine/Pneu movax 23 40274 Given 07/17/2013 Influenza Vac, Split, Preservative Free High Dose Age 65 & > [id number] 81266 Given 07/24/2012 Influenza Vac, Split, Preservative Free High Dose Age 65 & > [id number] 94484 Given 07/04/2011 Influenza Vac, Split, Preservative Free High Dose Age 65 & > [id number] 76649 Given 08/16/2010 Pneumococcal Vaccine/Pneu movax 23 [id number] 90883 Given 10/21/2009 Influenza Vac, Split 3 Yr s And Up [id number] 37311 Given 07/24/2008 Influenza Vac, Split 3 Yr s And Up U-FLU Given 07/22/2008 Influenza,Unspecified 01766 Given 10/27/2004 Influenza Vac, Split 3 Yr s And Up 70818 Given 07/22/2004 Pneumococcal Vaccine/Pneu movax 23 07443 Refused 04/11/2023 Moderna Sars-Co v-2 (Covid-19) vaccine, 100 mcg/ 0.5 mL 12Y+ 58115 Refused 04/11/2023 Shingrix 33227 Refused 07/26/2021 Moderna Sars-Co v-2 (Covid-19) vaccine, 100 mcg/ 0.5 mL 12Y+ 86158 Refused 09/28/2020 Tdap (Tetanus, diphtheria & acel. pertussis) Adacel or Boostrix 68848 Refused 09/28/2020 Shingrix 72779 Refused 08/19/2020 Influenza Virus Vaccine, Quadrivalent, Im Use 74734 Refused 07/11/2016 Influenza Vac, Split, Preservative Free High Dose Age 65 & > Vital Signs Date Vital Result Comment 04/11/2023 9:23am BP Systolic 128 mmHg BP Diastolic 66 mmHg Heart Rate 76 /min Respiratory Rate 18 /min Weight 202.00 lb Weight 91.627 kg Height 66 inches 5'6" BMI (Body Mass Index) 32.6 kg/m2 [place] Body Weight 142 lb 03/19/2023 1:08pm BP Systolic 100 mmHg BP Diastolic 40 mmHg Body Temperature 97.7 F Heart Rate 72 /min Respiratory Rate 16 /min Weight 201.12 lb Weight 91.230 kg O2 % BldC Oximetry 96 % Results Test Acquired Date Facility Test Result H/L Range N ote Order 04/11/2023 [facility] [phone] Fundus Photography For Diabetic Retinopathy <pending> Comp. Met 04/04/2023 [facility] [address] [place], [place] [id number] [phone] Glucose 116 mg/dL High 70-110 BUN 45 [...] GFR 24 ML/MIN/1.73SQM Low >60 Hba1c 04/04/2023 [facility] [address] [place] [address] [phone] A1c 5.70 % 4.70-6.50 1 Laboratory test finding 04/04/2023 [facility] [address] [place] [address] [phone] Ferritin 50.30 ng/mL 22.00-415.0 Tibc 04/04/2023 [facility] [address] [place] [address] [phone] Tibc 297 g /dL 260-400 Transferrin 212 mg/dL 200-400 Laboratory test finding 04/04/2023 [facility] [address] [place], [place] [address] [phone] TSH 2.51 uIU/mL 0.50-6.00 FRT4 0.79 ng/dL 0.75-1.54 Lipid 04/04/2023 [facility] [address] [place] [address] [phone] Cholesterol 121 mg/dL 0-200 2 Triglyceride 71 mg/dL 0-150 3 HDLD 38 mg/dL See Comment 4 Measured LDL 70 mg/dL 0-130 5 Calc VLDL 14.2 mg/dL See Comment 6 Chol/HDL 3.2 RATIO See Comment 7 Non-HDL 83 mg/dL See Comment 8 CBC W/Diff 04/04/2023 [facility] [address] [place] [address] [phone] WBC 6.1 10^3/M3 3.1-9.2 RBC 3.34 10^6/M3 Low 4.00-5.80 HGB 9.4 GR/DL Low 12.5-17.5 HCT 29.3 % Low 37.5-52.5 MCV 88.0 CUMICR 82.6-95.8 MCH 28.3 PICOGR 27.9-32.9 MCHC 32.2 % Low 32.6-35.4 RDW 16.5 % High 11.4-14.6 PLT 285 10^3/M3 140-350 MPV 7.9 CUMICR 7.0-10.6 %Neut 68.7 % 40.0-75.0 %Lymph 7.8 % Low 17.0-45.0 %Rapides 9.3 % 1.0-11.0 %Eos 13.1 % High 0.0-6.0 %Baso 1.1 % 0.0-2.0 #Neut 4.2 10^3/M3 1.5-8.0 #Lymph 0.5 10^3/M3 Low 0.8-3.2 #Rapides 0.6 10^3/M3 0.0-0.8 #Eos 0.8 10^3/m3 High 0.0-0.4 #Baso 0.1 10^3/m3 0.0-0.2 Iron Panel([facility]) 04/04/2023 [facility] [address] [place], [place] [id number] [phone] Iron 33 g /dL Low 45-140 % Saturation 11 % Low 30-35 Urinalysis 03/19/2023 [facility] [address] [place] [address] [phone] Color LIGHT-YELLOW Appearance CLEAR Clear Spec.Grav. 1.010 1.005-1.025 Leukocytes LARGE Abnormal Negative Nitrite NEGATIVE Negative PH 6.0 6.0-7.5 Protein TRACE Abnormal Negative Urine Glucose NEGATIVE Negative Ketone NEGATIVE Negative Urobilinogen NORMAL E.U./DL Normal Bilirubin NEGATIVE Negative Blood NEGATIVE Negative WBC-U TNTC /HPF Abnormal 0-5/HPF RBC-U 3-5 /HPF 0-5/HPF Bacteria 1+ Abnormal None Seen Squamous 0-2 /HPF 0-5/HPF Laboratory test finding 03/19/2023 [facility] [address] [place] [address] [phone] BNP 904.0 pg/mL Critical high 0.0-100.0 BMP 03/19/2023 [facility] [address] [place] [address] [phone] Glucose 132 mg/dL High 70-110 BUN 43 mg/dL High 6-25 Creatinine 3.1 mg/dL Critical high 0.7-1.3 9 Sodium 141 mEq/L 135-145 Potassium 4.0 mEq/L 3.5-5.0 Chloride 105 mEq/L 95-107 Co-2 22 mEq/L Low 24-31 Calcium 9.1 mg/dL 8.5-10.6 GFR 21 ML/MIN/1.73SQM Low >60 Laboratory test finding 03/19/2023 [facility] (In Office Test) Sars Rna QL PCR - In Office Not Detected. Urine Culture 03/19/2023 [facility] [address] [place] [address] [phone] Urine Source URINE Total Col Count >100,000 COL/CC Urine Isolate#1 03/19/2023 [facility] [address] [place] [address] [phone] Isolate #1 Enterococcus mar <SEE NOTE> 10 Ampicillin >8 R Ciprofloxacin >2 R Levofloxacin >4 R Linezolid <=2 S Nitrofurantoin <=32 S Penicillin >8 R Rifampim >2 R Tetracycline >8 R Vancomycin >16 R CBC W/Diff 03/19/2023 [facility] [address] [place] [address] [phone] WBC 6.3 10^3/M3 3.1-9.2 RBC 3.06 10^6/M3 Low 4.00-5.80 HGB 9.0 GR/DL Low 12.5-17.5 HCT 29.4 % Low 37.5-52.5 MCV 95.8 CUMICR 82.6-95.8 MCH 29.4 PICOGR 27.9-32.9 MCHC 30.7 % Low 32.6-35.4 RDW 17.6 % High 11.4-14.6 PLT 266 10^3/M3 140-350 MPV 8.2 CUMICR 7.0-10.6 %Neut 76.3 % High 40.0-75.0 %Lymph 7.3 % Low 17.0-45.0 %Rapides 8.7 % 1.0-11.0 %Eos 7.0 % High 0.0-6.0 %Baso 0.7 % 0.0-2.0 #Neut 4.8 10^3/M3 1.5-8.0 #Lymph 0.5 10^3/M3 Low 0.8-3.2 #Rapides 0.5 10^3/M3 0.0-0.8 #Eos 0.4 10^3/m3 0.0-0.4 #Baso 0.0 10^3/m3 0.0-0.2 Laboratory test finding 02/28/2023 [facility] [address] [place], [place] [id number] [phone] Vitd-25Oh 46 ng/mL 30-100 Renal Panel 02/28/2023 [facility] [address] [place] [address] [phone] Glucose 96 mg/dL 70-110 11 BUN 56 mg/dL High 6-25 Creatinine 2.9 mg/dL High 0.7-1.3 Sodium 142 mEq/L 135-145 Potassium 4.4 mEq/L 3.5-5.0 Chloride 109 mEq/L High 95-107 Co-2 23 mEq/L Low 24-31 Calcium 8.4 mg/dL Low 8.5-10.6 Phosphorus 3.3 mg/dL 2.5-4.8 Albumin 3.5 g/dL 3.0-5.2 GFR 22 Low >60 CBC No Diff 02/28/2023 [facility] [address] [place] [address] [phone] WBC 5.9 10^3/M3 3.1-9.2 RBC 2.90 10^6/M3 Low 4.00-5.80 HGB 8.6 GR/DL Low 12.5-17.5 HCT 27.9 % Low 37.5-52.5 MCV 96.3 CUMICR High 82.6-95.8 MCH 29.6 PICOGR 27.9-32.9 MCHC 30.8 % Low 32.6-35.4 RDW 18.5 % High 11.4-14.6 PLT 238 10^3/M3 140-350 MPV 8.0 CUMICR 7.0-10.6 BMP 02/13/2023 [facility] [address] [place] [address] [phone] Glucose 99 mg/dL 70-110 12, 13 BUN 59 mg/dL High 6-25 Creatinine 3.0 mg/dL High 0.7-1.3 Sodium 142 mEq/L 135-145 Potassium 3.8 mEq/L 3.5-5.0 Chloride 106 mEq/L 95-107 Co-2 27 mEq/L 24-31 Calcium 9.0 mg/dL 8.5-10.6 GFR 22 Low >60 Laboratory test finding 02/13/2023 [facility] [address] [place] [address] [phone] BNP 490.0 pg/mL Critical high 0.0-100.0 14 H & H 02/13/2023 [facility] [address] [place] [address] [phone] HGB 9.9 GR/DL Low 12.5-17.5 HCT 30.6 % Low 37.5-52.5 Laboratory test finding 02/13/2023 [facility] [address] [place] [address] [phone] Magnesium 2.1 mg/dL 1.7-2.8 Renal Panel 02/05/2023 [facility] [address] [place] [address] [phone] Glucose 104 mg/dL 70-110 15 BUN 42 mg/dL High 6-25 Creatinine 3.0 mg/dL High 0.7-1.3 Sodium 150 mEq/L High 135-145 Potassium 4.9 mEq/L 3.5-5.0 Chloride 114 mEq/L High 95-107 Co-2 25 mEq/L 24-31 Calcium 8.9 mg/dL 8.5-10.6 Phosphorus 3.7 mg/dL 2.5-4.8 Albumin 3.8 g/dL 3.0-5.2 GFR 22 Low >60 CBC No Diff 02/05/2023 [facility] [address] [place] [address] [phone] WBC 5.1 10 3.1-9.2 RBC 3.28 10 Low 4.00-5.80 HGB 9.6 GR/DL Low 12.5-17.5 HCT 30.9 % Low 37.5-52.5 MCV 94.4 CUMICR 82.6-95.8 MCH 29.3 PICOGR 27.9-32.9 MCHC 31.1 % Low 32.6-35.4 RDW 17.8 % High 11.4-14.6 PLT 195 10 140-350 MPV 8.2 CUMICR 7.0-10.6 Laboratory test finding 02/05/2023 [facility] [address] [place] [address] [phone] Vitd-25Oh 38 ng/mL 30-100 Renal Panel 11/09/2022 [facility] [address] [place], [place] [address] [phone] Glucose 96 mg/dL 70-110 16 BUN 50 mg/dL High 6-25 Creatinine 3.4 mg/dL Critical high 0.7-1.3 17 Sodium 141 mEq/L 135-145 Potassium 4.5 mEq/L 3.5-5.0 Chloride 108 mEq/L High 95-107 Co-2 21 mEq/L Low 24-31 Calcium 8.9 mg/dL 8.5-10.6 Phosphorus 4.3 mg/dL 2.5-4.8 Albumin 3.7 g/dL 3.0-5.2 GFR 19 Low >60 Laboratory test finding 11/09/2022 [facility] [address] [place], [place] [address] [phone] Ferritin 64.20 ng/mL 22.00-415.0 CBC No Diff 11/09/2022 [facility] [address] [place], [place] [address] [phone] WBC 7.2 10 3.1-9.2 RBC 3.66 10 Low 4.00-5.80 HGB 11.3 GR/DL Low 12.5-17.5 HCT 35.1 % Low 37.5-52.5 MCV 96.0 CUMICR High 82.6-95.8 MCH 30.9 PICOGR 27.9-32.9 MCHC 32.2 % Low 32.6-35.4 RDW 16.7 % High 11.4-14.6 PLT 243 10 140-350 MPV 7.7 CUMICR 7.0-10.6 Iron Panel([facility]) 11/09/2022 [facility] [address] [place] [address] [phone] Iron 80 g /dL 45-140 18 % Saturation 24 % Low 30-35 Tibc 11/09/2022 [facility] [address] [place] [address] [phone] Tibc 337 g /dL 260-400 Transferrin 241 mg/dL 200-400 1 MEAN GLUCOSE IN mg/d L/A1c% POOR CONTROL FAIR CONTROL GOOD CONTROL EXCELLENT CONTROL 360-14 210-9 180-8 120-6 330-13 150-7 90-5 300-12 270-11 240-10 2 CHOLESTEROL Less than 200mg/dl Low risk 201-239 mg/dl Borderline risk Equal to or greater 240mg/dl High risk CHOLESTEROL COMMENTS REPORT FAXED TO DOCTOR, REQUESTED ON REQUISITION. 6.28.23 ESEQUIEL 3 TRIGLYCERIDES Less than 150mg/dl Normal 150-199mg/dl Borderline 200-499mg/dl High Greater than 500mg/dl Very High 4 HDL <40mg/dl Elevated Risk 41-59mg/dl Risk >=60mg/dl Least Risk 5 LDL <100mg/dl Optimal 100-129mg/dl Near Optimal 130-159mg/dl Borderline High 160-189mg/dl High >=190 Very High 6 VLDL Less than 30mg/dl Normal 7 CHOL/HDL <4.0 Optimal 4.0-5.0 Borderline >6.0 High Risk 8 NON-HDL 30mg/dl higher than LDL Target 9 CRITICAL RESULTS LUCI IFIED, FAXED, AND CALLED TO TANK JACKSON @ 12:10. 03/20/23 MH 10 Enterococcus faecium VRE 11 REPORT FAXED TO DOCT OR, REQUESTED ON REQUISITION.03/01/23 LM 12 Please fax results t o Litzy Baez PA-C [phone] F- [phone] 13 REPORT FAXED TO DOCT OR, REQUESTED ON REQUISITION.02/14/23 LM 14 CRITICAL RESULTS LUCI IFIED, FAXED, AND CALLED TO LASHON HENRY @ 4:09. 02/13/23 MH 15 REPORT FAXED TO DOCT OR, REQUESTED ON REQUISITION. 02.06.23 ESEQUIEL 16 Fax to [phone] [facility] P: [phone] 17 CRITICAL RESULTS LUCI IFIED, FAXED, AND CALLED TO AMANDA AT 4:50 PM ON 11/09/22 ALB 18 REPORT FAXED TO DOCT OR, REQUESTED ON REQUISITION.11/10/22 LM Procedures Date Code Description Status 04/11/2023 46746 Fundus Eye Exam Completed 04/11/2023 3725F Screening Depression Perform ed Completed 04/11/2023 3288F Fall Risk Assessment Documen awais Completed 04/11/2023 3078F PVRP Diastolic BP <80 mmHg C ompleted 04/11/2023 3074F PVRP Systolic BP <130 mmHg C ompleted 04/11/2023 1100F PT Screened Futu re Fall Risk >/=2 Falls In Past Yr/1 W/Injury Completed 04/04/2023 71061 Venipuncture Routine Complet ed 03/19/2023 09685 Venipuncture Routine Complet ed 02/28/2023 86092 Venipuncture Routine Complet ed 02/13/2023 33053 Venipuncture Routine Complet ed 01/15/2023 1111F D/C Medications Reconciled W/Current Medications In Outpt MR Completed 01/12/2023 1111F D/C Medications Reconciled W/Current Medications In Outpt MR Completed 11/09/2022 23689 Venipuncture Routine Complet ed Medical Devices Description No Information Available Encounters Type Date Location Provider Dx Diagnosis Office Visit 04/11/2023 9:00a Kylie Atkinson JR, [...] with diabetic nephropathy Office Visit 03/19/2023 1:00p [place] Migel Ovalle Ohnm acht, DO R06.02 Shortness of breath Office Visit 01/15/2023 11:[place] op[place] PA-C N40.1 Benign prostatic hyperplasia with lower urinary tract symp A41.50 Gram-negative sepsis , unspecified Assessments Date Code Description Provider 04/11/[address]00[address] [facility] adult medical examination with abnormal findings Matilda [...] hyperp arathyroidism of renal origin Lab - [place] 04/04/2023 E78.00 Pure hypercholesterolemia, u nspecified Matilda Atkinson JR, DO 04/04/2023 E78.00 Pure hypercholesterolemia, u nspecified Lab - [place] 04/04/2023 E88.81 Metabolic syndrome Matilda Atkinson JR, DO 04/04/2023 E88.81 Metabolic syndrome Lab - [facility] [place] 04/04/2023 D64.9 Anemia, unspecified Matilda Atkinson JR, DO 04/04/2023 E11.21 Type 2 diabetes mellitus with diabetic nephropathy Matilda Atkinson JR, DO 03/19/2023 R06.02 Shortness of breath Migel hagen, DO 02/28/2023 N17.9 Acute kidney failure, unspec ified Matilda Atkinson JR, DO 02/28/2023 N17.9 Acute kidney failure, unspec ified Lab - [place] 02/28/2023 E55.9 Vitamin D deficiency, unspec ified Matilda Atkinson JR, DO 02/28/2023 E55.9 Vitamin D deficiency, unspec ified Lab - [place] 02/28/2023 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, stag e 4 (severe) Matilda Atkinson JR, DO 02/28/2023 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, stag e 4 (severe) Lab - [place] 02/13/2023 I50.9 Heart failure, unspecified K dusty Atkinson JR, DO 02/13/2023 I50.9 Heart failure, unspecified L ab - [place] 02/13/2023 E11.21 Type 2 diabetes mellitus with diabetic nephropathy Matlida Atkinson JR, DO 02/05/2023 N17.9 Acute kidney failure, unspec ified Matilda Atkinson JR, DO 02/05/2023 N17.9 Acute kidney failure, unspec ified Lab - [place] 02/05/2023 E55.9 Vitamin D deficiency, unspec ified Matilda Atkinson JR, DO 02/05/2023 E55.9 Vitamin D deficiency, unspec ified Lab - [place] 02/05/2023 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, stag e 4 (severe) Matilda Atkinson JR, DO 02/05/2023 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, stag e 4 (severe) Lab - [place] 01/15/2023 N40.1 Benign prostatic hyperplasia with lower urinary tract symptoms Pierre Costa PA-C 01/15/2023 A41.50 Gram-negative sepsis, unspec ified Pierre Costa PA-C 11/09/2022 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, stag e 4 (severe) Matilda Atkinson JR, DO 11/09/2022 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, stag e 4 (severe) Lab - [place] 11/09/2022 D64.9 Anemia, unspecified Matilda Atkinson JR, DO 11/09/2022 D64.9 [facility] Future Appointment(s):* 07/11/2023 6:30 am - [place] * 07/17/2023 11:00 am - Matilda Atkinson JR, DO at [place] 04/11/2023 - Matilda Atkinson JR, DO* Z00.01 Encounter for general adult medical examination with abnormal findings * E11.22 Type 2 diabetes mellitus with diabetic chronic kidney disease * E11.51 Type 2 diabetes mellitus with diabetic peripheral angiopathy without gangrene * E11.59 Type 2 diabetes mellitus with other circulatory complications * I73.9 Peripheral vascular disease, unspecified * 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, stage 4 (severe) * I10 Essential (primary) hypertension * E03.9 Hypothyroidism, unspecified * E78.00 Pure hypercholesterolemia, unspecified * 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 Functional Status Description No Information Available Mental Status Description No Information Available Referrals Refer to Reason for Referral Status Appt Didi Silva [address] [place] [address] Dr Hunter 6 [phone]
--- OUTSIDE RECORDS SUMMARY | 2023-08-21 23:54 | External Medical Summary | Continuity of Care Document ---
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 Name Role Phone GI - Gastroenterology Care Team Information Rece Fermín Harrell MD Care Team Information Receiv er [phone] Rory Hodge Care Team Information Baker Doughnut [phone] Nixon Aden MD Care Team Information Baker Doughnut [phone] Abran Eugene JR - Interven tional Pain Medicine Care Team Information Baker Doughnut [phone] Medardo Trinidad MD Care Team Information Receive r [phone] Sinan Marks MD Care Team Information Receive r [phone] Problems Active Problems Provider Date Chronic kidney disease stage 4 O nset: Note: Document: 02/14/19 - N ephrology Consult Essential hypertension Matidla Atkinson JR, DO Onset: 09/01/2015 Anemia Matilda [...] Atkinson JR, DO On set: 09/01/2015 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 Manager Lvn (Cu rrent) Use Encounter Matilda Atkinson JR DO Onset: 02/23/2009 Moderate recurrent major depression Matilda william JR, DO Onset: 08/16/2010 Obstructive sleep apnea syndrome Matilda hammond JR DO Onset: 09/17/2012 Liver mass Matilda Atknison JR, DO Onset: 12/06/2018 Lymphoma Onset: 0 [...] SIG Qnty Indications Ordering Provider Date Clopidogrel Equqcmema37iu Tablets Take One (1) Tablet By Mouth Every Day 30tabs I73.9 Matilda L. Poly JR, DO 08/24/2021 Citalopram Dbppxtljford92xm Tablets Take One (1) Tablet By Mouth Every Day 90tabs F33.1 Matilda Atkinson JR, DO 06/23/2019 Sreisrfjvvm6oy Tablets Take One Tablet By Mouth Once Daily 30tabs Matilda Atkinson JR, DO 11/12/2017 Oxycodone-Acetaminophe n7.5-325mg Tablets take one tablet every 6 h as needed pain--ongoing therapy 60tabs Matilda Atkinson JR, DO 01/22/2014 Atorvastatin Rclwhun34fu Tablets Take One Tablet By Mouth AT Bedtime 90tabs E78.0 Matilda Atkinson JR, DO E78.00 Dtnche71636Nnth/ML Solution 40,000 units monthly Unknown Albuterol Sulfate UET155(90B ase) mcg/Act Aerosol 2 puffs by mouth every 4-6 hours as needed wheezing Unknown Wfjvtybmuj36wg Tablets 1 by mouth twice a day 180tabs Unknown Pantoprazole Qushwd74ek Tabl ets DR 1 by mouth every day Unknown 000 Ldusucq9iw Tablets 1 by mouth twice a day Unknown Bumetanide0.5mg Tablets 1 or 2 by mouth every day as needed Unknown Tamsulosin HCL0.4mg Capsules 1 by mouth every day Unknown History Medications Nitrofurantoin Monohyd Ksxrg861on Capsules take 1 capsule twice daily for 10 days 20caps Gisella Lisa MD, PhD 03/23/2023 - 04/10/2023 Nrfarjkmzg854mb Tablets take 1 tab by mouth twice [...] CPT Code Status Date Vaccine Lot # [id number] Given 10/04/2022 Influenza Vaccine High Do se 0.5ML [id number] U-FLU Given 10/04/2022 Influenza,Unspecified 74009 Given 08/11/2020 Influenza Vacci ne-Administered at another facility U-FLU Given 08/11/2020 Influenza,Unspecified U-FLU Given 08/23/2019 Influenza,Unspecified 75639 Given 08/23/2019 Influenza Vacci ne-Administered at another facility 32284 Given 07/11/2018 Influenza Vac, Split, Preservative Free High Dose Age 65 & > [id number] 52650 Given 10/02/2017 Pneumococcal Conjugate-Pr evnar 13 31760 Given 10/02/2017 Influenza Vac, Split, Preservative Free High Dose Age 65 & > 07187 Given 08/14/2016 Influenza Virus Vaccine, Quadrivalent, Im Use [id number] 03370 Given 09/01/2015 Influenza Vac, Split, Preservative Free High Dose Age 65 & > [id number] 18519 Given 09/01/2015 Pneumococcal Conjugate-Pr evnar 13 [id number] 79387 Given 07/21/2014 Influenza Vac, Split, Preservative Free High Dose Age 65 & > [id number] U-FLU Given 07/21/2014 Influenza,Unspecified 35901 Given 01/31/2014 Pneumococcal Vaccine/Pneu movax 23 54552 Given 07/17/2013 Influenza Vac, Split, Preservative Free High Dose Age 65 & > [id number] 52143 Given 07/24/2012 Influenza Vac, Split, Preservative Free High Dose Age 65 & > [id number] 22032 Given 07/04/2011 Influenza Vac, Split, Preservative Free High Dose Age 65 & > [id number] 60488 Given 08/16/2010 Pneumococcal Vaccine/Pneu movax 23 [id number] 88291 Given 10/21/2009 Influenza Vac, Split 3 Yr s And Up [id number] 66701 Given 07/24/2008 Influenza Vac, Split 3 Yr s And Up U-FLU Given 07/22/2008 Influenza,Unspecified 18632 Given 10/27/2004 Influenza Vac, Split 3 Yr s And Up 99885 Given 07/22/2004 Pneumococcal Vaccine/Pneu movax 23 24505 Refused 04/11/2023 Moderna Sars-Co v-2 (Covid-19) vaccine, 100 mcg/ 0.5 mL 12Y+ 18564 Refused 04/11/2023 Shingrix 17888 Refused 07/26/2021 Moderna Sars-Co v-2 (Covid-19) vaccine, 100 mcg/ 0.5 mL 12Y+ 27968 Refused 09/28/2020 Tdap (Tetanus, diphtheria & acel. pertussis) Adacel or Boostrix 15047 Refused 09/28/2020 Shingrix 52839 Refused 08/19/2020 Influenza Virus Vaccine, Quadrivalent, Im Use 99807 Refused 07/11/2016 Influenza Vac, Split, Preservative Free High Dose Age 65 & > Vital Signs Date Vital Result Comment 04/11/2023 9:23am BP Systolic 128 mmHg BP Diastolic 66 mmHg Heart Rate 76 /min Respiratory Rate 18 /min Weight 202.00 lb Weight 91.627 kg Height 66 inches 5'6" BMI (Body Mass Index) 32.6 kg/m2 [place] Body Weight 142 lb 03/19/2023 1:08pm BP Systolic 100 mmHg BP Diastolic 40 mmHg Body Temperature 97.7 F Heart Rate 72 /min Respiratory Rate 16 /min Weight 201.12 lb Weight 91.230 kg O2 % BldC Oximetry 96 % Results Test Acquired Date Facility Test Result H/L Range N ote Microalbumin Urine 04/11/2023 [facility]. [address] [place] [address] [phone] Urine Creat 74 mg/dL Comment Microalbumin 7.8 mg/dL High 0.0-1.8 1 ug/mgCREATININE 105 ug/mg High 0-29 Comp. Met 04/04/2023 [facility]. [address] [place] [address] [phone] Glucose 116 mg/dL High 70-110 BUN 45 [...] GFR 24 ML/MIN/1.73SQM Low >60 Hba1c 04/04/2023 [facility]. [address] [place] [address] [phone] A1c 5.70 % 4.70-6.50 2 Laboratory test finding 04/04/2023 [facility]. [address] [place] [address] [phone] Ferritin 50.30 ng/mL 22.00-415.0 Tibc 04/04/2023 [facility]. [address] [place] [address] [phone] Tibc 297 g /dL 260-400 Transferrin 212 mg/dL 200-400 Laboratory test finding 04/04/2023 [facility]. [address] [place] [address] [phone] TSH 2.51 uIU/mL 0.50-6.00 FRT4 0.79 ng/dL 0.75-1.54 Lipid 04/04/2023 [facility]. [address] [place] [address] [phone] Cholesterol 121 mg/dL 0-200 3 Triglyceride 71 mg/dL 0-150 4 HDLD 38 mg/dL See Comment 5 Measured LDL 70 mg/dL 0-130 6 Calc VLDL 14.2 mg/dL See Comment 7 Chol/HDL 3.2 RATIO See Comment 8 Non-HDL 83 mg/dL See Comment 9 CBC W/Diff 04/04/2023 [facility]. [address] [place] [address] [phone] WBC 6.1 10^3/M3 3.1-9.2 RBC 3.34 10^6/M3 Low 4.00-5.80 HGB 9.4 GR/DL Low 12.5-17.5 HCT 29.3 % Low 37.5-52.5 MCV 88.0 CUMICR 82.6-95.8 MCH 28.3 PICOGR 27.9-32.9 MCHC 32.2 % Low 32.6-35.4 RDW 16.5 % High 11.4-14.6 PLT 285 10^3/M3 140-350 MPV 7.9 CUMICR 7.0-10.6 %Neut 68.7 % 40.0-75.0 %Lymph 7.8 % Low 17.0-45.0 %[place] 9.3 % 1.0-11.0 %Eos 13.1 % High 0.0-6.0 %Baso 1.1 % 0.0-2.0 #Neut 4.2 10^3/M3 1.5-8.0 #Lymph 0.5 10^3/M3 Low 0.8-3.2 #[place] 0.6 10^3/M3 0.0-0.8 #Eos 0.8 10^3/m3 High 0.0-0.4 #Baso 0.1 10^3/m3 0.0-0.2 Iron Panel([facility]) 04/04/2023 [facility]. [address] [place], [place] [id number] [phone] Iron 33 g /dL Low 45-140 % Saturation 11 % Low 30-35 Urinalysis 03/19/2023 [facility]. [address] [place], [place] [phone] Color LIGHT-YELLOW Appearance CLEAR Clear Spec.Grav. 1.010 1.005-1.025 Leukocytes LARGE Abnormal Negative Nitrite NEGATIVE Negative PH 6.0 6.0-7.5 Protein TRACE Abnormal Negative Urine Glucose NEGATIVE Negative Ketone NEGATIVE Negative Urobilinogen NORMAL E.U./DL Normal Bilirubin NEGATIVE Negative Blood NEGATIVE Negative WBC-U TNTC /HPF Abnormal 0-5/HPF RBC-U 3-5 /HPF 0-5/HPF Bacteria 1+ Abnormal None Seen Squamous 0-2 /HPF 0-5/HPF Laboratory test finding 03/19/2023 [facility]. [address] [place] [address] [phone] BNP 904.0 pg/mL Critical high 0.0-100.0 BMP 03/19/2023 [facility]. [address] [place], [place] [address] [phone] Glucose 132 mg/dL High 70-110 BUN 43 mg/dL High 6-25 Creatinine 3.1 mg/dL Critical high 0.7-1.3 10 Sodium 141 mEq/L 135-145 Potassium 4.0 mEq/L 3.5-5.0 Chloride 105 mEq/L 95-107 Co-2 22 mEq/L Low 24-31 Calcium 9.1 mg/dL 8.5-10.6 GFR 21 ML/MIN/1.73SQM Low >60 Laboratory test finding 03/19/2023 [facility] (In Office Test) Sars Rna QL PCR - In Office Not Detected. Urine Culture 03/19/2023 [facility] [address] [place] [address] [phone] Urine Source URINE Total Col Count >100,000 COL/CC Urine Isolate#1 03/19/2023 [facility]. [address] [place] [address] [phone] Isolate #1 Enterococcus mar <SEE NOTE> 11 Ampicillin >8 R Ciprofloxacin >2 R Levofloxacin >4 R Linezolid <=2 S Nitrofurantoin <=32 S Penicillin >8 R Rifampim >2 R Tetracycline >8 R Vancomycin >16 R CBC W/Diff 03/19/2023 [facility]. [address] [place] [address] [phone] WBC 6.3 10^3/M3 3.1-9.2 RBC 3.06 10^6/M3 Low 4.00-5.80 HGB 9.0 GR/DL Low 12.5-17.5 HCT 29.4 % Low 37.5-52.5 MCV 95.8 CUMICR 82.6-95.8 MCH 29.4 PICOGR 27.9-32.9 MCHC 30.7 % Low 32.6-35.4 RDW 17.6 % High 11.4-14.6 PLT 266 10^3/M3 140-350 MPV 8.2 CUMICR 7.0-10.6 %Neut 76.3 % High 40.0-75.0 %Lymph 7.3 % Low 17.0-45.0 %[place] 8.7 % 1.0-11.0 %Eos 7.0 % High 0.0-6.0 %Baso 0.7 % 0.0-2.0 #Neut 4.8 10^3/M3 1.5-8.0 #Lymph 0.5 10^3/M3 Low 0.8-3.2 #[place] 0.5 10^3/M3 0.0-0.8 #Eos 0.4 10^3/m3 0.0-0.4 #Baso 0.0 10^3/m3 0.0-0.2 Laboratory test finding 02/28/2023 [facility]. [address] [place] [address] [phone] Vitd-25Oh 46 ng/mL 30-100 Renal Panel 02/28/2023 [facility]. [address] [place] [address] [phone] Glucose 96 mg/dL 70-110 12 BUN 56 mg/dL High 6-25 Creatinine 2.9 mg/dL High 0.7-1.3 Sodium 142 mEq/L 135-145 Potassium 4.4 mEq/L 3.5-5.0 Chloride 109 mEq/L High 95-107 Co-2 23 mEq/L Low 24-31 Calcium 8.4 mg/dL Low 8.5-10.6 Phosphorus 3.3 mg/dL 2.5-4.8 Albumin 3.5 g/dL 3.0-5.2 GFR 22 Low >60 CBC No Diff 02/28/2023 [facility] [address] [place] [address] [phone] WBC 5.9 10^3/M3 3.1-9.2 RBC 2.90 10^6/M3 Low 4.00-5.80 HGB 8.6 GR/DL Low 12.5-17.5 HCT 27.9 % Low 37.5-52.5 MCV 96.3 CUMICR High 82.6-95.8 MCH 29.6 PICOGR 27.9-32.9 MCHC 30.8 % Low 32.6-35.4 RDW 18.5 % High 11.4-14.6 PLT 238 10^3/M3 140-350 MPV 8.0 CUMICR 7.0-10.6 BMP 02/13/2023 [facility]. [address] [place] [address] [phone] Glucose 99 mg/dL 70-110 13, 14 BUN 59 mg/dL High 6-25 Creatinine 3.0 mg/dL High 0.7-1.3 Sodium 142 mEq/L 135-145 Potassium 3.8 mEq/L 3.5-5.0 Chloride 106 mEq/L 95-107 Co-2 27 mEq/L 24-31 Calcium 9.0 mg/dL 8.5-10.6 GFR 22 Low >60 Laboratory test finding 02/13/2023 [facility]. [address] [place] [address] [phone] BNP 490.0 pg/mL Critical high 0.0-100.0 15 H & H 02/13/2023 [facility]. [address] [place] [address] [phone] HGB 9.9 GR/DL Low 12.5-17.5 HCT 30.6 % Low 37.5-52.5 Laboratory test finding 02/13/2023 [facility]. [address] [place] [address] [phone] Magnesium 2.1 mg/dL 1.7-2.8 Renal Panel 02/05/2023 [facility]. [address] [place] [address] [phone] Glucose 104 mg/dL 70-110 16 BUN 42 mg/dL High 6-25 Creatinine 3.0 mg/dL High 0.7-1.3 Sodium 150 mEq/L High 135-145 Potassium 4.9 mEq/L 3.5-5.0 Chloride 114 mEq/L High 95-107 Co-2 25 mEq/L 24-31 Calcium 8.9 mg/dL 8.5-10.6 Phosphorus 3.7 mg/dL 2.5-4.8 Albumin 3.8 g/dL 3.0-5.2 GFR 22 Low >60 CBC No Diff 02/05/2023 [facility]. [address] [place] [address] [phone] WBC 5.1 10 3.1-9.2 RBC 3.28 10 Low 4.00-5.80 HGB 9.6 GR/DL Low 12.5-17.5 HCT 30.9 % Low 37.5-52.5 MCV 94.4 CUMICR 82.6-95.8 MCH 29.3 PICOGR 27.9-32.9 MCHC 31.1 % Low 32.6-35.4 RDW 17.8 % High 11.4-14.6 PLT 195 10 140-350 MPV 8.2 CUMICR 7.0-10.6 Laboratory test finding 02/05/2023 [facility]. [address] [place] [address] [phone] Vitd-25Oh 38 ng/mL 30-100 Renal Panel 11/09/2022 [facility]. [address] [place] [address] [phone] Glucose 96 mg/dL 70-110 17 BUN 50 mg/dL High 6-25 Creatinine 3.4 mg/dL Critical high 0.7-1.3 18 Sodium 141 mEq/L 135-145 Potassium 4.5 mEq/L 3.5-5.0 Chloride 108 mEq/L High 95-107 Co-2 21 mEq/L Low 24-31 Calcium 8.9 mg/dL 8.5-10.6 Phosphorus 4.3 mg/dL 2.5-4.8 Albumin 3.7 g/dL 3.0-5.2 GFR 19 Low >60 Laboratory test finding 11/09/2022 [facility]. [address] [place], [place] [id number] [phone] Ferritin 64.20 ng/mL 22.00-415.0 CBC No Diff 11/09/2022 [facility]. [address] [place], [place] [address] [phone] WBC 7.2 10 3.1-9.2 RBC 3.66 10 Low 4.00-5.80 HGB 11.3 GR/DL Low 12.5-17.5 HCT 35.1 % Low 37.5-52.5 MCV 96.0 CUMICR High 82.6-95.8 MCH 30.9 PICOGR 27.9-32.9 MCHC 32.2 % Low 32.6-35.4 RDW 16.7 % High 11.4-14.6 PLT 243 10 140-350 MPV 7.7 CUMICR 7.0-10.6 Iron Panel([facility]) 11/09/2022 [facility]. [address] [place], [place] [phone] Iron 80 g /dL 45-140 19 % Saturation 24 % Low 30-35 Tibc 11/09/2022 [facility]. [address] [place], [place] [id number] [phone] Tibc 337 g /dL 260-400 Transferrin 241 mg/dL 200-400 1 *[facility] [employer] USES MICROALBUMIN/CREATINE RATIO : [...] NON-HDL 30mg/dl higher than LDL Target 10 CRITICAL RESULTS LUCI IFIED, FAXED, AND CALLED TO TANK JACKSON @ 12:10. 03/20/23 MH 11 Enterococcus faecium VRE 12 REPORT FAXED TO DOCT OR, REQUESTED ON REQUISITION.03/01/23 LM 13 Please fax results t o Litzy Baez PA-C [phone] F- [phone] 14 REPORT FAXED TO DOCT OR, REQUESTED ON REQUISITION.02/14/23 LM 15 CRITICAL RESULTS LUCI IFIED, FAXED, AND CALLED TO LASHON KOENIGDARIUS @ 4:09. 02/13/23 MH 16 REPORT FAXED TO DOCT OR, REQUESTED ON REQUISITION. 02.06.23 ESEQUIEL 17 Fax to [phone] [facility] P: [phone] 18 CRITICAL RESULTS LUCI IFIED, FAXED, AND CALLED TO AMANDA AT 4:50 PM ON 11/09/22 ALB 19 REPORT FAXED TO DOCT OR, REQUESTED ON REQUISITION.11/10/22 LM Procedures Date Code Description Status 04/11/2023 21460 Fundus Eye Exam Completed 04/11/2023 3725F Screening Depression Perform ed Completed 04/11/2023 3288F Fall Risk Assessment Documen awais Completed 04/11/2023 3078F PVRP Diastolic BP <80 mmHg C ompleted 04/11/2023 3074F PVRP Systolic BP <130 mmHg C ompleted 04/11/2023 1100F PT Screened Futu re Fall Risk >/=2 Falls In Past Yr/1 W/Injury Completed 04/04/2023 00426 Venipuncture Routine Complet ed 03/19/2023 59328 Venipuncture Routine Complet ed 02/28/2023 13283 Venipuncture Routine Complet ed 02/13/2023 19542 Venipuncture Routine Complet ed 01/15/2023 1111F D/C Medications Reconciled W/Current Medications In Outpt MR Completed 01/12/2023 1111F D/C Medications Reconciled W/Current Medications In Outpt MR Completed 11/09/2022 10602 Venipuncture Routine Complet ed Medical Devices Description No Information Available Encounters Type Date Location Provider Dx Diagnosis Office Visit 04/11/2023 9:00a [place] Matilda Atkinson JR, DO Z00.01 Encounter for [...] with diabetic nephropathy Office Visit 03/19/2023 1:00p [place] Adam R Ohnm acht, DO R06.02 Shortness of breath Office Visit 01/15/2023 11:00a [place] Pierre Watkins op, PA-C N40.1 Benign prostatic hyperplasia with lower urinary tract symp A41.50 Gram-negative sepsis , unspecified Assessments Date Code Description Provider 04/11/2023 Z00.01 Encounter for [facility] adult medical examination with abnormal findings [...] lymphoma, extranodal and solid organ sites Matilda Atknison JR, DO 04/11/2023 E11.21 Type 2 diabetes mellitus with diabetic nephropathy Matilda Atkinson JR, DO 04/04/2023 N25.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 arathyroidism of renal origin Matilda Atkinson JR, DO 04/04/2023 N25.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 arathyroidism of renal origin Lab - [place] 04/04/2023 E78.00 Pure hypercholesterolemia, u nspecified Matilda Atkinson JR, DO 04/04/2023 E78.00 Pure hypercholesterolemia, u nspecified Lab - [place] 04/04/2023 E88.81 Metabolic syndrome Matilda Atkinson JR, [...] Acute kidney failure, unspec ified Lab - [place] 02/28/2023 E55.9 Vitamin D deficiency, unspec ified Matilda Atkinson JR, DO 02/28/2023 E55.9 Vitamin D deficiency, unspec ified Lab - [place] 02/28/2023 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, stag e 4 (severe) Matilda Atkinson JR, DO 02/28/2023 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, stag e 4 (severe) Lab - [place] 02/13/2023 I50.9 Heart failure, unspecified K dusty Atkinson JR, DO 02/13/2023 I50.9 Heart failure, unspecified L ab - [place] 02/13/2023 E11.21 Type 2 diabetes mellitus with diabetic nephropathy Matilda Atkinson JR, DO 02/05/2023 N17.9 Acute kidney failure, unspec ified Matilda Atkinson JR, DO 02/05/2023 N17.9 Acute kidney failure, unspec ified Lab - [place] 02/05/2023 E55.9 Vitamin D deficiency, unspec ified Matilda Atkinson JR, DO 02/05/2023 E55.9 Vitamin D deficiency, unspec ified Lab - [place] 02/05/2023 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, stag e 4 (severe) Matilda Atkinson JR, DO 02/05/2023 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, stag e 4 (severe) Lab - [place] 01/15/2023 N40.1 Benign prostatic hyperplasia with lower urinary tract symptoms Pierre Costa PA-C 01/15/2023 A41.50 Gram-negative sepsis, unspec ified Pierre Costa PA-C 11/09/2022 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, stag e 4 (severe) Matilda Atkinson JR, DO 11/09/2022 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, stag e 4 (severe) Lab - [place] 11/09/2022 D64.9 Anemia, unspecified Matilda Atkinson JR, DO 11/09/2022 D64.9 Anemia, unspecified [facility] [place] Plan of Treatment Future Appointment(s):* 07/11/2023 6:30 am - [facility] [place] * 07/17/2023 11:00 am - Matilda Atkinson JR, DO at [place] 04/11/2023 - Matilda Atkinson JR, DO* Z00.01 [...] Referral Status Appt Timothy Zi Silva [address] [place] [address] Dr Hunter 0 [phone]
--- OUTSIDE RECORDS SUMMARY | 2023-08-21 23:54 | External Medical Summary | Continuity of Care Document ---
Author Name [facility] - [facility] Address [address] [place] [address] Phone [phone] Organization [facility], Address [address] [place] [address] Phone [phone] Care Team Providers Care Diamond Merchant Name Role Phone GI - Gastroenterology Care Team Information Rece Fermín Harrell MD Care Team Information Receiv er [phone] Rory Hodge Care Team Information Bill Of Materials Clerk [phone] Nixon Aden MD Care Team Information Bill Of Materials Clerk + [phone] Abran Eugene JR - Interven tional Pain Medicine Care Team Information Bill Of Materials Clerk [phone] Medardo Trinidad MD Care Team Information Receive r [phone] Sinan Marks MD Care Team Information Receive r [phone] Problems Active Problems Provider Date Chronic kidney [...] Onset: 09/01/2015 Metabolic syndrome X Vinod Pang JR, DO On set: 06/03/2012 Osteoarthritis Vinod Pang JR DO Onset: 09/01/2015 Vitamin D deficiency Vinod Pang JR, DO On set: 09/01/2015 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 [facility] (Cu rrent) Use Encounter Vinod Pang JR DO Onset: 02/23/2009 Moderate recurrent major depression Vinod william JR DO Onset: 08/16/2010 Obstructive sleep apnea syndrome Vinod hammond JR, DO Onset: 09/17/2012 Liver mass Vinod Pang JR DO Onset: 12/06/2018 Lymphoma Onset: 0 Note: Large B Cell Lymphoma Document: 12/19/18 - Oncology Consultation Diffuse large B-cell lymphom a, extranodal and solid organ sites Vinod Pang JR DO Onset: 03/24/2020 History of SARS-CoV-2 Pierre Costa PA-C Onset: 03/04/2021 Type 2 diabetes mellitus Patel Reis JR O Onset: 02/08/2022 Social History Type Date Description Comments Sex Unknown Tobacco Use Reviewed: 03/19/23 Never Smoked Cigarette s Tobacco Use Reviewed: 03/19/23 Never Smoked Cigars Tobacco Use Reviewed: 03/19/23 Never Smoked A Pipe Smoking Status Reviewed: 03/19/23 Never Smoked A Pipe Smokeless Tobacco 03/19/2023 Current Smokel ess Tobacco User, Uses 9 Times Daily ETOH Use Denies alcohol use Recreational Drug Use Denies Drug Use Allergies and adverse reactions Description No Known Drug Allergies Medications Active Medications SIG Qnty Indications Order ing Provider Date Nitrofurantoin Monohyd Omnva702oc Capsules take 1 capsule twice daily for 10 days 20caps Gisella Lisa MD, PhD 03/23/2023 Clopidogrel Ibcyojzlz12wg Tablets Take One (1) Tablet By Mouth Every Day 30tabs I73.9 Vinod Pang JR, DO 08/24/2021 Citalopram Mzqhushrevso77cd Tablets Take One (1) Tablet By Mouth Every Day 90tabs F33.1 Vinod Pang JR, DO 06/23/2019 Yialelgmrzw7bm Tablets Take One Tablet By Mouth Once Daily 30tabs Vinod Pang JR, DO 11/12/2017 Oxycodone-Acetaminophen 7.5-325mg Tablets take one tablet every 6 h as needed pain--ongoing therapy 60tabs Vinod Pang JR, DO 01/22/2014 Atorvastatin Eamuptw27ly Tablets Take One Tablet By Mouth AT Bedtime 90tabs E78.0 Vinod Pang JR, DO E78.00 Oaxopl89174Jlfk/ML Solution 40,000 units monthly Unknown Albuterol Sulfate QAZ188(90B ase) mcg/Act Aerosol 2 puffs by mouth every 4-6 hours as needed wheezing Unknown Qquqxspkoi45im Tablets 1 by mouth twice a day 180tabs Unknown Pantoprazole Bozwhv67dy Tabl ets DR 1 by mouth every day Unknown 000 Jjlqtpg1cw Tablets 1 by mouth twice a day Unknown Bumetanide0.5mg Tablets 1 or 2 by mouth every day as needed Unknown Tamsulosin HCL0.4mg Capsules 1 by mouth every day Unknown History Medications Fkoipuxfrl855yf Tablets take 1 tab by mouth twice [...] CPT Code Status Date Vaccine Lot # [id number] Given 10/04/2022 Influenza Vaccine High Do se 0.5ML [id number] U-FLU Given 10/04/2022 Influenza,Unspecified U-FLU Given 08/11/2020 Influenza,Unspecified 66369 Given 08/11/2020 Influenza Vacci ne-Administered at another facility U-FLU Given 08/23/2019 Influenza,Unspecified 36840 Given 08/23/2019 Influenza Vacci ne-Administered at another facility 83138 Given 07/11/2018 Influenza Vac, Split, Preservative Free High Dose Age 65 & > [id number] 07984 Given 10/02/2017 Pneumococcal Conjugate-Pr evnar 13 22184 Given 10/02/2017 Influenza Vac, Split, Preservative Free High Dose Age 65 & > [id number] Given 08/14/2016 Influenza Virus Vaccine, Quadrivalent, Im Use [id number] 35675 Given 09/01/2015 Influenza Vac, Split, Preservative Free High Dose Age 65 & > [id number] 73449 Given 09/01/2015 Pneumococcal Conjugate-Pr evnar 13 [id number] 23158 Given 07/21/2014 Influenza Vac, Split, Preservative Free High Dose Age 65 & > [id number] U-FLU Given 07/21/2014 Influenza,Unspecified 50330 Given 01/31/2014 Pneumococcal Vaccine/Pneu movax 23 92839 Given 07/17/2013 Influenza Vac, Split, Preservative Free High Dose Age 65 & > [id number] 09924 Given 07/24/2012 Influenza Vac, Split, Preservative Free High Dose Age 65 & > [id number] 77273 Given 07/04/2011 Influenza Vac, Split, Preservative Free High Dose Age 65 & > [id number] 64120 Given 08/16/2010 Pneumococcal Vaccine/Pneu movax 23 [id number] 37018 Given 10/21/2009 Influenza Vac, Split 3 Yr s And Up [id number] 78051 Given 07/24/2008 Influenza Vac, Split 3 Yr s And Up U-FLU Given 07/22/2008 Influenza,Unspecified 22699 Given 10/27/2004 Influenza Vac, Split 3 Yr s And Up 77416 Given 07/22/2004 Pneumococcal Vaccine/Pneu movax 23 [id number] Refused 07/26/2021 Moderna Sars-Co v-2 (Covid-19) vaccine, 100 mcg/ 0.5 mL 12Y+ 22091 Refused 09/28/2020 Tdap (Tetanus, diphtheria & acel. pertussis) Adacel or Boostrix 15864 Refused 09/28/2020 Shingrix 77502 Refused 08/19/2020 Influenza Virus Vaccine, Quadrivalent, Im Use 38791 Refused 07/11/2016 Influenza Vac, Split, Preservative Free High Dose Age 65 & > Vital Signs Date Vital Result Comment 03/19/2023 1:08pm BP Systolic 100 mmHg BP Diastolic 40 mmHg Body Temperature 97.7 F Heart Rate 72 /min Respiratory Rate 16 /min Weight 201.12 lb Weight 91.230 kg O2 % BldC Oximetry 96 % 01/15/2023 11:04am BP Systolic 120 mmHg BP Diastolic 60 mmHg Body Temperature 97.7 F Heart Rate 78 /min Respiratory Rate 16 /min Weight 211.12 lb Weight 95.766 kg Results Test Acquired Date Facility Test Result H/L Range N ote Lipid 04/04/2023 [facility]. [address] [place], [place] [id number] [phone] Cholesterol 121 mg/dL 0-200 1 Triglyceride 71 mg/dL 0-150 2 HDLD 38 mg/dL See Comment 3 Measured LDL 70 mg/dL 0-130 4 Calc VLDL 14.2 mg/dL See Comment 5 Chol/HDL 3.2 RATIO See Comment 6 Non-HDL 83 mg/dL See Comment 7 CBC W/Diff 04/04/2023 [facility]. [address] [place], [place] [address] [phone] WBC 6.1 10^3/M3 3.1-9.2 RBC 3.34 10^6/M3 Low 4.00-5.80 HGB 9.4 GR/DL Low 12.5-17.5 HCT 29.3 % Low 37.5-52.5 MCV 88.0 CUMICR 82.6-95.8 MCH 28.3 PICOGR 27.9-32.9 MCHC 32.2 % Low 32.6-35.4 RDW 16.5 % High 11.4-14.6 PLT 285 10^3/M3 140-350 MPV 7.9 CUMICR 7.0-10.6 %Neut 68.7 % 40.0-75.0 %Lymph 7.8 % Low 17.0-45.0 %Dimmit 9.3 % 1.0-11.0 %Eos 13.1 % High 0.0-6.0 %Baso 1.1 % 0.0-2.0 #Neut 4.2 10^3/M3 1.5-8.0 #Lymph 0.5 10^3/M3 Low 0.8-3.2 #Dimmit 0.6 10^3/M3 0.0-0.8 #Eos 0.8 10^3/m3 High 0.0-0.4 #Baso 0.1 10^3/m3 0.0-0.2 Laboratory test finding 04/04/2023 [facility]. [address] [place] [address] [phone] TSH 2.51 uIU/mL 0.50-6.00 FRT4 0.79 ng/dL 0.75-1.54 Iron Panel([facility]) 04/04/2023 [facility]. [address] [place] [address] [phone] Iron 33 g /dL Low 45-140 % Saturation 11 % Low 30-35 Tibc 04/04/2023 [facility]. [address] [place] [address] [phone] Tibc 297 g /dL 260-400 Transferrin 212 mg/dL 200-400 Laboratory test finding 04/04/2023 [facility]. [address] [place] [address] [phone] Ferritin 50.30 ng/mL 22.00-415.0 Hba1c 04/04/2023 [facility]. [address] [place], [place] [address] [phone] A1c 5.70 % 4.70-6.50 8 Comp. Met 04/04/2023 [facility]. [address] [place] [address] [phone] Glucose 116 mg/dL High 70-110 BUN 45 [...] g/dL 2.0-3.4 GFR 24 ML/MIN/1.73SQM Low >60 Urine Isolate#1 03/19/2023 [facility]. [address] [place] [address] [phone] Isolate #1 Enterococcus mar <SEE NOTE> 9 Ampicillin >8 R Ciprofloxacin >2 R Levofloxacin >4 R Linezolid <=2 S Nitrofurantoin <=32 S Penicillin >8 R Rifampim >2 R Tetracycline >8 R Vancomycin >16 R Urinalysis 03/19/2023 [facility]. [address] [place] [address] [phone] Color LIGHT-YELLOW Appearance CLEAR Clear Spec.Grav. 1.010 1.005-1.025 Leukocytes LARGE Abnormal Negative Nitrite NEGATIVE Negative PH 6.0 6.0-7.5 Protein TRACE Abnormal Negative Urine Glucose NEGATIVE Negative Ketone NEGATIVE Negative Urobilinogen NORMAL E.U./DL Normal Bilirubin NEGATIVE Negative Blood NEGATIVE Negative WBC-U TNTC /HPF Abnormal 0-5/HPF RBC-U 3-5 /HPF 0-5/HPF Bacteria 1+ Abnormal None Seen Squamous 0-2 /HPF 0-5/HPF Laboratory test finding 03/19/2023 [facility]. [address] [place], [place] [id number] [phone] BNP 904.0 pg/mL Critical high 0.0-100.0 BMP 03/19/2023 [facility] [address] [place] [address] [phone] Glucose 132 mg/dL High 70-110 BUN 43 mg/dL High 6-25 Creatinine 3.1 mg/dL Critical high 0.7-1.3 10 Sodium 141 mEq/L 135-145 Potassium 4.0 mEq/L 3.5-5.0 Chloride 105 mEq/L 95-107 Co-2 22 mEq/L Low 24-31 Calcium 9.1 mg/dL 8.5-10.6 GFR 21 ML/MIN/1.73SQM Low >60 Laboratory test finding 03/19/2023 [facility] (In Office Test) Sars Rna QL PCR - In Office Not Detected. Urine Culture 03/19/2023 [facility] [address] [place] [address] [phone] Urine Source URINE Total Col Count >100,000 COL/CC CBC W/Diff 03/19/2023 [facility]. [address] [place], [place] [address] [phone] WBC 6.3 10^3/M3 3.1-9.2 RBC 3.06 10^6/M3 Low 4.00-5.80 HGB 9.0 GR/DL Low 12.5-17.5 HCT 29.4 % Low 37.5-52.5 MCV 95.8 CUMICR 82.6-95.8 MCH 29.4 PICOGR 27.9-32.9 MCHC 30.7 % Low 32.6-35.4 RDW 17.6 % High 11.4-14.6 PLT 266 10^3/M3 140-350 MPV 8.2 CUMICR 7.0-10.6 %Neut 76.3 % High 40.0-75.0 %Lymph 7.3 % Low 17.0-45.0 %Dimmit 8.7 % 1.0-11.0 %Eos 7.0 % High 0.0-6.0 %Baso 0.7 % 0.0-2.0 #Neut 4.8 10^3/M3 1.5-8.0 #Lymph 0.5 10^3/M3 Low 0.8-3.2 #Dimmit 0.5 10^3/M3 0.0-0.8 #Eos 0.4 10^3/m3 0.0-0.4 #Baso 0.0 10^3/m3 0.0-0.2 CBC No Diff 02/28/2023 [facility]. [address] [place] [address] [phone] WBC 5.9 10^3/M3 3.1-9.2 RBC 2.90 10^6/M3 Low 4.00-5.80 HGB 8.6 GR/DL Low 12.5-17.5 HCT 27.9 % Low 37.5-52.5 MCV 96.3 CUMICR High 82.6-95.8 MCH 29.6 PICOGR 27.9-32.9 MCHC 30.8 % Low 32.6-35.4 RDW 18.5 % High 11.4-14.6 PLT 238 10^3/M3 140-350 MPV 8.0 CUMICR 7.0-10.6 Laboratory test finding 02/28/2023 [facility]. [address] [place] [address] [phone] Vitd-25Oh 46 ng/mL 30-100 Renal Panel 02/28/2023 [facility]. [address] [place] [address] [phone] Glucose 96 mg/dL 70-110 11 BUN 56 mg/dL High 6-25 Creatinine 2.9 mg/dL High 0.7-1.3 Sodium 142 mEq/L 135-145 Potassium 4.4 mEq/L 3.5-5.0 Chloride 109 mEq/L High 95-107 Co-2 23 mEq/L Low 24-31 Calcium 8.4 mg/dL Low 8.5-10.6 Phosphorus 3.3 mg/dL 2.5-4.8 Albumin 3.5 g/dL 3.0-5.2 GFR 22 Low >60 Laboratory test finding 02/13/2023 [facility]. [address] [place] [address] [phone] Magnesium 2.1 mg/dL 1.7-2.8 12 BMP 02/13/2023 [facility]. [address] [place] [address] [phone] Glucose 99 mg/dL 70-110 13 BUN 59 mg/dL High 6-25 Creatinine 3.0 mg/dL High 0.7-1.3 Sodium 142 mEq/L 135-145 Potassium 3.8 mEq/L 3.5-5.0 Chloride 106 mEq/L 95-107 Co-2 27 mEq/L 24-31 Calcium 9.0 mg/dL 8.5-10.6 GFR 22 Low >60 Laboratory test finding 02/13/2023 [facility]. [address] [place] [address] [phone] BNP 490.0 pg/mL Critical high 0.0-100.0 14 H & H 02/13/2023 [facility]. [address] [place] [address] [phone] HGB 9.9 GR/DL Low 12.5-17.5 HCT 30.6 % Low 37.5-52.5 Renal Panel 02/05/2023 [facility]. [address] [place] [address] [phone] Glucose 104 mg/dL 70-110 15 BUN 42 mg/dL High 6-25 Creatinine 3.0 mg/dL High 0.7-1.3 Sodium 150 mEq/L High 135-145 Potassium 4.9 mEq/L 3.5-5.0 Chloride 114 mEq/L High 95-107 Co-2 25 mEq/L 24-31 Calcium 8.9 mg/dL 8.5-10.6 Phosphorus 3.7 mg/dL 2.5-4.8 Albumin 3.8 g/dL 3.0-5.2 GFR 22 Low >60 CBC No Diff 02/05/2023 [facility]. [address] [place] [address] [phone] WBC 5.1 10 3.1-9.2 RBC 3.28 10 Low 4.00-5.80 HGB 9.6 GR/DL Low 12.5-17.5 HCT 30.9 % Low 37.5-52.5 MCV 94.4 CUMICR 82.6-95.8 MCH 29.3 PICOGR 27.9-32.9 MCHC 31.1 % Low 32.6-35.4 RDW 17.8 % High 11.4-14.6 PLT 195 10 140-350 MPV 8.2 CUMICR 7.0-10.6 Laboratory test finding 02/05/2023 [facility]. [address] [place] [address] [phone] Vitd-25Oh 38 ng/mL 30-100 Renal Panel 11/09/2022 [facility]. [address] [place], [place] [address] [phone] Glucose 96 mg/dL 70-110 16 BUN 50 mg/dL High 6-25 Creatinine 3.4 mg/dL Critical high 0.7-1.3 17 Sodium 141 mEq/L 135-145 Potassium 4.5 mEq/L 3.5-5.0 Chloride 108 mEq/L High 95-107 Co-2 21 mEq/L Low 24-31 Calcium 8.9 mg/dL 8.5-10.6 Phosphorus 4.3 mg/dL 2.5-4.8 Albumin 3.7 g/dL 3.0-5.2 GFR 19 Low >60 Laboratory test finding 11/09/2022 [facility]. [address] [place] [address] [phone] Ferritin 64.20 ng/mL 22.00-415.0 CBC No Diff 11/09/2022 [facility]. [address] [place] [address] [phone] WBC 7.2 10 3.1-9.2 RBC 3.66 10 Low 4.00-5.80 HGB 11.3 GR/DL Low 12.5-17.5 HCT 35.1 % Low 37.5-52.5 MCV 96.0 CUMICR High 82.6-95.8 MCH 30.9 PICOGR 27.9-32.9 MCHC 32.2 % Low 32.6-35.4 RDW 16.7 % High 11.4-14.6 PLT 243 10 140-350 MPV 7.7 CUMICR 7.0-10.6 Iron Panel([facility]) 11/09/2022 [facility]. [address] [place], [place] [id number] [phone] Iron 80 g /dL 45-140 18 % Saturation 24 % Low 30-35 Tibc 11/09/2022 [facility]. [address] [place], [place] [id number] [phone] Tibc 337 g /dL 260-400 Transferrin 241 mg/dL 200-400 1 CHOLESTEROL Less than 200mg/dl Low risk 201-239 mg/dl Borderline risk Equal to or greater 240mg/dl High risk CHOLESTEROL COMMENTS REPORT FAXED TO DOCTOR, REQUESTED ON REQUISITION. 6.28.23 ESEQUIEL 2 TRIGLYCERIDES Less than 150mg/dl Normal 150-199mg/dl Borderline 200-499mg/dl High Greater than 500mg/dl Very High 3 HDL <40mg/dl Elevated Risk 41-59mg/dl Risk >=60mg/dl Least Risk 4 LDL <100mg/dl Optimal 100-129mg/dl Near Optimal 130-159mg/dl Borderline High 160-189mg/dl High >=190 Very High 5 VLDL Less than 30mg/dl Normal 6 CHOL/HDL <4.0 Optimal 4.0-5.0 Borderline >6.0 High Risk 7 NON-HDL 30mg/dl higher than LDL Target 8 MEAN GLUCOSE IN mg/d L/A1c% POOR CONTROL FAIR CONTROL GOOD CONTROL EXCELLENT CONTROL 360-14 210-9 180-8 120-6 330-13 150-7 90-5 300-12 270-11 240-10 9 Enterococcus faecium VRE 10 CRITICAL RESULTS LUCI IFIED, FAXED, AND CALLED TO TANK JACKSON @ 12:10. 03/20/23 MH 11 REPORT FAXED TO DOCT OR, REQUESTED ON REQUISITION.03/01/23 LM 12 Please fax results t chandrika Baez PA-C [phone] F- [phone] 13 REPORT FAXED TO DOCT OR, REQUESTED ON REQUISITION.02/14/23 LM 14 CRITICAL RESULTS LUCI IFIED, FAXED, AND CALLED TO LASHON HENRY @ 4:09. 02/13/23 MH 15 REPORT FAXED TO DOCT OR, REQUESTED ON REQUISITION. 02.06.23 ESEQUIEL 16 Fax to [phone] [facility] P: [phone] 17 CRITICAL RESULTS LUCI IFIED, FAXED, AND CALLED TO AMANDA AT 4:50 PM ON 11/09/22 ALB 18 REPORT FAXED TO DOCT OR, REQUESTED ON REQUISITION.11/10/22 LM Procedures Date Code Description Status 04/04/2023 88492 Venipuncture Routine Complet ed 03/19/2023 40400 Venipuncture Routine Complet ed 02/28/2023 61264 Venipuncture Routine Complet ed 02/13/2023 70409 Venipuncture Routine Complet ed 01/15/2023 1111F D/C Medications Reconciled W/Current Medications In Outpt MR Completed 01/12/2023 1111F D/C Medications Reconciled W/Current Medications In Outpt MR Completed 11/09/2022 57005 Venipuncture Routine Complet ed Medical Devices Description No Information Available Encounters Type Date Location Provider Dx Diagnosis Office Visit 03/19/2023 1:00p [facility] Ovalle Stephanieagatha, DO R06.02 Shortness of breath Office Visit 01/15/2023 11:00a [facility] Pierre Costa PA-C N40.1 Benign prosta tic hyperplasia with lower urinary tract symp A41.50 Gram-negative sepsis , unspecified Assessments Date Code Description Provider 04/04/2023 N25.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 arathyroidism of renal origin Vinod Pang JR, DO 04/04/2023 N25.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 arathyroidism of renal origin [facility] 04/04/2023 E78.00 Pure hypercholesterolemia, u nspecified Vinod Pang JR, DO 04/04/2023 E78.00 Pure hypercholesterolemia, u nspecified [facility] 04/04/2023 E88.81 Metabolic syndrome Vinod Pang JR, DO 04/04/2023 E88.81 Metabolic syndrome Lab - [facility] [place] 04/04/2023 D64.9 Anemia, unspecified Vinod Pang JR, DO 04/04/2023 E11.21 Type 2 diabetes mellitus with diabetic nephropathy Vinod Pang JR, DO 03/19/2023 R06.02 Shortness of breath Migel hagen, DO 02/28/2023 N17.9 Acute kidney failure, unspec ified Vinod Pang JR, DO 02/28/2023 N17.9 Acute kidney failure, unspec ified [facility] 02/28/2023 E55.9 Vitamin D deficiency, unspec ified Vinod Pang JR, DO 02/28/2023 E55.9 Vitamin D deficiency, unspec ified [facility] 02/28/2023 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, stag e 4 (severe) Vinod Pang JR, DO 02/28/2023 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, stag e 4 (severe) [facility] 02/13/2023 I50.9 Heart failure, unspecified K felixriya Pang JR, DO 02/13/2023 I50.9 Heart failure, unspecified L ab - [facility] 02/13/2023 E11.21 Type 2 diabetes mellitus with diabetic nephropathy Vinod Pang JR, DO 02/05/2023 N17.9 Acute kidney failure, unspec ified Vinod Pang JR, DO 02/05/2023 N17.9 Acute kidney failure, unspec ified [facility] 02/05/2023 E55.9 Vitamin D deficiency, unspec ified Vinod Pang JR, DO 02/05/2023 E55.9 Vitamin D deficiency, unspec ified [facility] 02/05/2023 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, stag e 4 (severe) Vinod Pang JR, DO 02/05/2023 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, stag e 4 (severe) [facility] 01/15/2023 N40.1 Benign prostatic hyperplasia with lower urinary tract symptoms Pierre Costa PA-C 01/15/2023 A41.50 Gram-negative sepsis, unspec ified Pierre Costa PA-C 11/09/2022 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, stag e 4 (severe) Vinod Pang JR, DO 11/09/2022 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, stag e 4 (severe) [facility] 11/09/2022 D64.9 Anemia, unspecified Vinod Pang JR, DO 11/09/2022 D64.9 Anemia, unspecified Lab [facility] Plan of Treatment Future Appointment(s):* 04/11/2023 9:00 am - Vinod Pang JR, DO at [facility] 03/19/2023 - Migel Austin, DO* R06.02 Shortness of breath* Comments:* Patient with increasing fatigue and SOB in setting of numerous chronic medical conditions includingHF, CKD, DM, and Pneumonitis. History of anemia as well. Will check CBC, BMP, and BNP today to assess for worsening of chronic conditions. CXR ordered to assess for possible pleural effusion vs. pneumonia. COVID swab completed in office, will call if positive. Urine dip also completed which showed leuks and blood, sending for UA and Culture. * Follow up:* Followup if worsening or if no improvement in seven to ten days. * Recommendations:* Daily weights. Functional Status Description No Information Available Mental Status Description No Information Available Referrals Refer to Dr Reason for Referral Status Appt Didi Silva [address] [place] [address] Dr Hunter 1 [phone]
--- OUTSIDE RECORDS SUMMARY | 2023-08-21 23:54 | External Medical Summary | Continuity of Care Document ---
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 Name Role Phone GI - Gastroenterology Care Team Information Rece Fermín Harrell MD Care Team Information Receiv er [phone] Rory Hodge Care Team Information Crm Technical Lead [phone] Nixon Aden MD Care Team Information Crm Technical Lead [phone] Abran Eugene JR - Interven tional Pain Medicine Care Team Information Crm Technical Lead [phone] Medardo Trinidad MD Care Team Information Receive r [phone] Sinan Marks MD Care Team Information Receive r [phone] Problems Active Problems Provider Date Chronic kidney [...] Atkinson JR, DO On set: 09/01/2015 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 Poly JR, DO 08/24/2021 Citalopram Uqerdtprxkto28lo Tablets Take One (1) Tablet By Mouth Every Day 90tabs F33.1 Matilda Atkinson JR, DO 06/23/2019 Auktvxytvoc1lo Tablets Take One Tablet By Mouth Once Daily 30tabs Matilda Atkinson JR, DO 11/12/2017 Oxycodone-Acetaminophe n7.5-325mg Tablets take one tablet every 6 h as needed pain--ongoing therapy 60tabs Matilda Atkinson JR, DO 01/22/2014 Atorvastatin Kczmspg57jb Tablets Take One Tablet By Mouth AT Bedtime 90tabs E78.0 Matilda Atkinson JR, DO E78.00 Bokngu93997Tftb/ML Solution 40,000 units monthly Unknown Albuterol Sulfate YSW653(90B ase) mcg/Act Aerosol 2 puffs by mouth every 4-6 hours as needed wheezing Unknown Khogudobrf06jc Tablets 1 by mouth twice a day 180tabs Unknown Pantoprazole Ncjpya02hi Tabl ets DR 1 by mouth every day Unknown 000 Wbycrhj4kp Tablets 1 by mouth twice a day Unknown Bumetanide0.5mg Tablets 1 or 2 by mouth every day as needed Unknown Tamsulosin HCL0.4mg Capsules 1 by mouth every day Unknown History Medications Nitrofurantoin Monohyd Rdxky289ez Capsules take 1 capsule twice daily for 10 days 20caps Gisella Lisa MD, PhD 03/23/2023 - 04/10/2023 Zctiesjjon155mj Tablets take 1 tab by mouth twice [...] CPT Code Status Date Vaccine Lot # [id number] Given 10/04/2022 Influenza Vaccine High Do se 0.5ML 298136 U-FLU Given 10/04/2022 Influenza,Unspecified 31613 Given 08/11/2020 Influenza Vacci ne-Administered at another facility U-FLU Given 08/11/2020 Influenza,Unspecified U-FLU Given 08/23/2019 Influenza,Unspecified 33506 Given 08/23/2019 Influenza Vacci ne-Administered at another facility 84392 Given 07/11/2018 Influenza Vac, Split, Preservative Free High Dose Age 65 & > [id number] 63633 Given 10/02/2017 Pneumococcal Conjugate-Pr evnar 13 88580 Given 10/02/2017 Influenza Vac, Split, Preservative Free High Dose Age 65 & > 45436 Given 08/14/2016 Influenza Virus Vaccine, Quadrivalent, Im Use [id number] 56588 Given 09/01/2015 Influenza Vac, Split, Preservative Free High Dose Age 65 & > [id number] 47167 Given 09/01/2015 Pneumococcal Conjugate-Pr evnar 13 [id number] 48087 Given 07/21/2014 Influenza Vac, Split, Preservative Free High Dose Age 65 & > [id number] U-FLU Given 07/21/2014 Influenza,Unspecified 76148 Given 01/31/2014 Pneumococcal Vaccine/Pneu movax 23 32268 Given 07/17/2013 Influenza Vac, Split, Preservative Free High Dose Age 65 & > [id number] 29734 Given 07/24/2012 Influenza Vac, Split, Preservative Free High Dose Age 65 & > [id number] 69607 Given 07/04/2011 Influenza Vac, Split, Preservative Free High Dose Age 65 & > [id number] 26189 Given 08/16/2010 Pneumococcal Vaccine/Pneu movax 23 [id number] 00080 Given 10/21/2009 Influenza Vac, Split 3 Yr s And Up [id number] 00454 Given 07/24/2008 Influenza Vac, Split 3 Yr s And Up U-FLU Given 07/22/2008 Influenza,Unspecified 59674 Given 10/27/2004 Influenza Vac, Split 3 Yr s And Up 04689 Given 07/22/2004 Pneumococcal Vaccine/Pneu movax 23 54944 Refused 04/11/2023 Moderna Sars-Co v-2 (Covid-19) vaccine, 100 mcg/ 0.5 mL 12Y+ 49054 Refused 04/11/2023 Shingrix 62411 Refused 07/26/2021 Moderna Sars-Co v-2 (Covid-19) vaccine, 100 mcg/ 0.5 mL 12Y+ 47886 Refused 09/28/2020 Tdap (Tetanus, diphtheria & acel. pertussis) Adacel or Boostrix 48692 Refused 09/28/2020 Shingrix 50202 Refused 08/19/2020 Influenza Virus Vaccine, Quadrivalent, Im Use 44134 Refused 07/11/2016 Influenza Vac, Split, Preservative Free High Dose Age 65 & > Vital Signs Date Vital Result Comment 04/11/2023 9:23am BP Systolic 128 mmHg BP Diastolic 66 mmHg Heart Rate 76 /min Respiratory Rate 18 /min Weight 202.00 lb Weight 91.627 kg Height 66 inches 5'6" BMI (Body Mass Index) 32.6 kg/m2 Saxon Body Weight 142 lb 03/19/2023 1:08pm BP Systolic 100 mmHg BP Diastolic 40 mmHg Body Temperature 97.7 F Heart Rate 72 /min Respiratory Rate 16 /min Weight 201.12 lb Weight 91.230 kg O2 % BldC Oximetry 96 % Results Test Acquired Date Facility Test Result H/L Range N ote Microalbumin Urine 04/11/2023 [facility] [address] [place] [address] [phone] Urine Creat 74 mg/dL Comment Microalbumin 7.8 mg/dL High 0.0-1.8 1 ug/mgCREATININE 105 ug/mg High 0-29 Comp. Met 04/04/2023 [facility] [address] [place] [address] [phone] Glucose 116 mg/dL High 70-110 BUN 45 [...] GFR 24 ML/MIN/1.73SQM Low >60 Hba1c 04/04/2023 [facility] [address] [place] [address] [phone] A1c 5.70 % 4.70-6.50 2 Laboratory test finding 04/04/2023 [facility] [address] [place] [address] [phone] Ferritin 50.30 ng/mL 22.00-415.0 Tibc 04/04/2023 [facility] [address] [place] [address] [phone] Tibc 297 g /dL 260-400 Transferrin 212 mg/dL 200-400 Laboratory test finding 04/04/2023 [facility] [address] [place] [address] [phone] TSH 2.51 uIU/mL 0.50-6.00 FRT4 0.79 ng/dL 0.75-1.54 Lipid 04/04/2023 [facility] [address] [place] [address] [phone] Cholesterol 121 mg/dL 0-200 3 Triglyceride 71 mg/dL 0-150 4 HDLD 38 mg/dL See Comment 5 Measured LDL 70 mg/dL 0-130 6 Calc VLDL 14.2 mg/dL See Comment 7 Chol/HDL 3.2 RATIO See Comment 8 Non-HDL 83 mg/dL See Comment 9 CBC W/Diff 04/04/2023 [facility] [address] [place] [address] [phone] WBC 6.1 10^3/M3 3.1-9.2 RBC 3.34 10^6/M3 Low 4.00-5.80 HGB 9.4 GR/DL Low 12.5-17.5 HCT 29.3 % Low 37.5-52.5 MCV 88.0 CUMICR 82.6-95.8 MCH 28.3 PICOGR 27.9-32.9 MCHC 32.2 % Low 32.6-35.4 RDW 16.5 % High 11.4-14.6 PLT 285 10^3/M3 140-350 MPV 7.9 CUMICR 7.0-10.6 %Neut 68.7 % 40.0-75.0 %Lymph 7.8 % Low 17.0-45.0 %Robertson 9.3 % 1.0-11.0 %Eos 13.1 % High 0.0-6.0 %Baso 1.1 % 0.0-2.0 #Neut 4.2 10^3/M3 1.5-8.0 #Lymph 0.5 10^3/M3 Low 0.8-3.2 #Robertson 0.6 10^3/M3 0.0-0.8 #Eos 0.8 10^3/m3 High 0.0-0.4 #Baso 0.1 10^3/m3 0.0-0.2 Iron Panel(Medcom) 04/04/2023 [facility] [address] [place], [place] [id number] [phone] Iron 33 g /dL Low 45-140 % Saturation 11 % Low 30-35 Urinalysis 03/19/2023 [facility] [address] [place], [place] [id number] [phone] Color LIGHT-YELLOW Appearance CLEAR Clear Spec.Grav. 1.010 1.005-1.025 Leukocytes LARGE Abnormal Negative Nitrite NEGATIVE Negative PH 6.0 6.0-7.5 Protein TRACE Abnormal Negative Urine Glucose NEGATIVE Negative Ketone NEGATIVE Negative Urobilinogen NORMAL E.U./DL Normal Bilirubin NEGATIVE Negative Blood NEGATIVE Negative WBC-U TNTC /HPF Abnormal 0-5/HPF RBC-U 3-5 /HPF 0-5/HPF Bacteria 1+ Abnormal None Seen Squamous 0-2 /HPF 0-5/HPF Laboratory test finding 03/19/2023 [facility] [address] [place] [address] [phone] BNP 904.0 pg/mL Critical high 0.0-100.0 BMP 03/19/2023 [facility] [address] [place], [place] [address]27 [phone] Glucose 132 mg/dL High 70-110 BUN 43 mg/dL High 6-25 Creatinine 3.1 mg/dL Critical high 0.7-1.3 10 Sodium 141 mEq/L 135-145 Potassium 4.0 mEq/L 3.5-5.0 Chloride 105 mEq/L 95-107 Co-2 22 mEq/L Low 24-31 Calcium 9.1 mg/dL 8.5-10.6 GFR 21 ML/MIN/1.73SQM Low >60 Laboratory test finding 03/19/2023 [facility] (In Office Test) Sars Rna QL PCR - In Office Not Detected. Urine Culture 03/19/2023 [facility] [address] [place] [address] [phone] Urine Source URINE Total Col Count >100,000 COL/CC Urine Isolate#1 03/19/2023 [facility] [address] [place] [address] [phone] Isolate #1 Enterococcus mar <SEE NOTE> 11 Ampicillin >8 R Ciprofloxacin >2 R Levofloxacin >4 R Linezolid <=2 S Nitrofurantoin <=32 S Penicillin >8 R Rifampim >2 R Tetracycline >8 R Vancomycin >16 R CBC W/Diff 03/19/2023 [facility] [address] [place] [address] [phone] WBC 6.3 10^3/M3 3.1-9.2 RBC 3.06 10^6/M3 Low 4.00-5.80 HGB 9.0 GR/DL Low 12.5-17.5 HCT 29.4 % Low 37.5-52.5 MCV 95.8 CUMICR 82.6-95.8 MCH 29.4 PICOGR 27.9-32.9 MCHC 30.7 % Low 32.6-35.4 RDW 17.6 % High 11.4-14.6 PLT 266 10^3/M3 140-350 MPV 8.2 CUMICR 7.0-10.6 %Neut 76.3 % High 40.0-75.0 %Lymph 7.3 % Low 17.0-45.0 %Robertson 8.7 % 1.0-11.0 %Eos 7.0 % High 0.0-6.0 %Baso 0.7 % 0.0-2.0 #Neut 4.8 10^3/M3 1.5-8.0 #Lymph 0.5 10^3/M3 Low 0.8-3.2 #Robertson 0.5 10^3/M3 0.0-0.8 #Eos 0.4 10^3/m3 0.0-0.4 #Baso 0.0 10^3/m3 0.0-0.2 Laboratory test finding 02/28/2023 [facility] [address] [place] [address] [phone] Vitd-25Oh 46 ng/mL 30-100 Renal Panel 02/28/2023 [facility] [address] [place] [address] [phone] Glucose 96 mg/dL 70-110 12 BUN 56 mg/dL High 6-25 Creatinine 2.9 mg/dL High 0.7-1.3 Sodium 142 mEq/L 135-145 Potassium 4.4 mEq/L 3.5-5.0 Chloride 109 mEq/L High 95-107 Co-2 23 mEq/L Low 24-31 Calcium 8.4 mg/dL Low 8.5-10.6 Phosphorus 3.3 mg/dL 2.5-4.8 Albumin 3.5 g/dL 3.0-5.2 GFR 22 Low >60 CBC No Diff 02/28/2023 [facility] [address] [place] [address] [phone] WBC 5.9 10^3/M3 3.1-9.2 RBC 2.90 10^6/M3 Low 4.00-5.80 HGB 8.6 GR/DL Low 12.5-17.5 HCT 27.9 % Low 37.5-52.5 MCV 96.3 CUMICR High 82.6-95.8 MCH 29.6 PICOGR 27.9-32.9 MCHC 30.8 % Low 32.6-35.4 RDW 18.5 % High 11.4-14.6 PLT 238 10^3/M3 140-350 MPV 8.0 CUMICR 7.0-10.6 BMP 02/13/2023 [facility] [address] [place] [address] [phone] Glucose 99 mg/dL 70-110 13, 14 BUN 59 mg/dL High 6-25 Creatinine 3.0 mg/dL High 0.7-1.3 Sodium 142 mEq/L 135-145 Potassium 3.8 mEq/L 3.5-5.0 Chloride 106 mEq/L 95-107 Co-2 27 mEq/L 24-31 Calcium 9.0 mg/dL 8.5-10.6 GFR 22 Low >60 Laboratory test finding 02/13/2023 [facility] [address] [place] [address] [phone] BNP 490.0 pg/mL Critical high 0.0-100.0 15 H & H 02/13/2023 [facility] [address] [place] [address] [phone] HGB 9.9 GR/DL Low 12.5-17.5 HCT 30.6 % Low 37.5-52.5 Laboratory test finding 02/13/2023 [facility] [address] [place] [address] [phone] Magnesium 2.1 mg/dL 1.7-2.8 Renal Panel 02/05/2023 [facility] [address] [place] [address] [phone] Glucose 104 mg/dL 70-110 16 BUN 42 mg/dL High 6-25 Creatinine 3.0 mg/dL High 0.7-1.3 Sodium 150 mEq/L High 135-145 Potassium 4.9 mEq/L 3.5-5.0 Chloride 114 mEq/L High 95-107 Co-2 25 mEq/L 24-31 Calcium 8.9 mg/dL 8.5-10.6 Phosphorus 3.7 mg/dL 2.5-4.8 Albumin 3.8 g/dL 3.0-5.2 GFR 22 Low >60 CBC No Diff 02/05/2023 [facility] [address] [place] [address] [phone] WBC 5.1 10 3.1-9.2 RBC 3.28 10 Low 4.00-5.80 HGB 9.6 GR/DL Low 12.5-17.5 HCT 30.9 % Low 37.5-52.5 MCV 94.4 CUMICR 82.6-95.8 MCH 29.3 PICOGR 27.9-32.9 MCHC 31.1 % Low 32.6-35.4 RDW 17.8 % High 11.4-14.6 PLT 195 10 140-350 MPV 8.2 CUMICR 7.0-10.6 Laboratory test finding 02/05/2023 [facility] [address] [place] [address] [phone] Vitd-25Oh 38 ng/mL 30-100 Renal Panel 11/09/2022 [facility] [address] [place] [address] [phone] Glucose 96 mg/dL 70-110 17 BUN 50 mg/dL High 6-25 Creatinine 3.4 mg/dL Critical high 0.7-1.3 18 Sodium 141 mEq/L 135-145 Potassium 4.5 mEq/L 3.5-5.0 Chloride 108 mEq/L High 95-107 Co-2 21 mEq/L Low 24-31 Calcium 8.9 mg/dL 8.5-10.6 Phosphorus 4.3 mg/dL 2.5-4.8 Albumin 3.7 g/dL 3.0-5.2 GFR 19 Low >60 Laboratory test finding 11/09/2022 [facility] [address] [place], [place] [address]30 [phone] Ferritin 64.20 ng/mL 22.00-415.0 CBC No Diff 11/09/2022 [facility] [address] [place], [place] [address]85 [phone] WBC 7.2 10 3.1-9.2 RBC 3.66 10 Low 4.00-5.80 HGB 11.3 GR/DL Low 12.5-17.5 HCT 35.1 % Low 37.5-52.5 MCV 96.0 CUMICR High 82.6-95.8 MCH 30.9 PICOGR 27.9-32.9 MCHC 32.2 % Low 32.6-35.4 RDW 16.7 % High 11.4-14.6 PLT 243 10 140-350 MPV 7.7 CUMICR 7.0-10.6 Iron Panel(Medcom) 11/09/2022 [facility] [address] [place], [place] [address] [phone] Iron 80 g /dL 45-140 19 % Saturation 24 % Low 30-35 Tibc 11/09/2022 [facility]. [address] [place], [place] [address] [phone] Tibc 337 g /dL 260-400 Transferrin 241 mg/dL 200-400 1 *[facility] USES MICROALBUMIN/CREATINE RATIO : [...] fax results t o Litzy Baez PA-C [phone] F- [phone] REPORT FAXED TO DOCT OR, REQUESTED ON REQUISITION.02/14/23 LM 15 CRITICAL RESULTS LUCI IFIED, FAXED, AND CALLED TO LASHON KOENIGDARIUS @ 4:09. 02/13/23 MH 16 REPORT FAXED TO DOCT OR, REQUESTED ON REQUISITION. 02.06.23 ESEQUIEL 17 Fax to [phone] [facility] P: [phone] 18 CRITICAL RESULTS LUCI IFIED, FAXED, AND CALLED TO AMANDA AT 4:50 PM ON 11/09/22 ALB 19 REPORT FAXED TO DOCT OR, REQUESTED ON REQUISITION.11/10/22 LM Procedures Date Code Description Status 04/11/2023 48100 Fundus Eye Exam Completed 04/11/2023 3725F Screening Depression Perform ed Completed 04/11/2023 3288F Fall Risk Assessment Documen awais Completed 04/11/2023 3078F PVRP Diastolic BP <80 mmHg C ompleted 04/11/2023 3074F PVRP Systolic BP <130 mmHg C ompleted 04/11/2023 1100F PT Screened Futu re Fall Risk >/=2 Falls In Past Yr/1 W/Injury Completed 04/04/2023 04428 Venipuncture Routine Complet ed 03/19/2023 68007 Venipuncture Routine Complet ed 02/28/2023 73043 Venipuncture Routine Complet ed 02/13/2023 33180 Venipuncture Routine Complet ed 01/15/2023 1111F D/C Medications Reconciled W/Current Medications In Outpt MR Completed 01/12/2023 1111F D/C Medications Reconciled W/Current Medications In Outpt MR Completed 11/09/2022 90513 Venipuncture Routine Complet ed Medical Devices Description No Information Available Encounters Type Date Location Provider Dx Diagnosis Office Visit 04/11/2023 9:00a [place] Matilda Atkinson JR, DO Z00.01 Encounter for [...] with diabetic nephropathy Office Visit 03/19/2023 1:00p [place] Adam R Ohnm acht, DO R06.02 Shortness of breath Office Visit 01/15/2023 11:00a [place] Pierre Watkins op, PA-C N40.1 Benign prostatic hyperplasia with lower urinary tract symp A41.50 Gram-negative sepsis , unspecified Assessments Date Code Description Provider 04/11/2023 Z00.01 Encounter for [facility] adult medical examination with abnormal findings [...] hyperp arathyroidism of renal origin Lab - [place] 04/04/2023 E78.00 Pure hypercholesterolemia, u nspecified Matilda Atkinson JR, DO 04/04/2023 E78.00 Pure hypercholesterolemia, u nspecified Lab - [place] 04/04/2023 E88.81 Metabolic syndrome Matilda Atkinson JR, [...] Acute kidney failure, unspec ified Lab - [place] 02/28/2023 E55.9 Vitamin D deficiency, unspec ified Matilda Atkinson JR, DO 02/28/2023 E55.9 Vitamin D deficiency, unspec ified Lab - [place] 02/28/2023 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, stag e 4 (severe) Matilda Atkinson JR, DO 02/28/2023 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, stag e 4 (severe) Lab - [place] 02/13/2023 I50.9 Heart failure, unspecified K dusty Atkinson JR, DO 02/13/2023 I50.9 Heart failure, unspecified L ab - [place] 02/13/2023 E11.21 Type 2 diabetes mellitus with diabetic nephropathy Matilda Atkinson JR, DO 02/05/2023 N17.9 Acute kidney failure, unspec ified Matilda Atkinson JR, DO 02/05/2023 N17.9 Acute kidney failure, unspec ified Lab - [place] 02/05/2023 E55.9 Vitamin D deficiency, unspec ified Matilda Atkinson JR, DO 02/05/2023 E55.9 Vitamin D deficiency, unspec ified Lab - [place] 02/05/2023 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, stag e 4 (severe) Matilda Atkinson JR, DO 02/05/2023 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, stag e 4 (severe) Lab - [place] 01/15/2023 N40.1 Benign prostatic hyperplasia with lower urinary tract symptoms Pierre Costa PA-C 01/15/2023 A41.50 Gram-negative sepsis, unspec ified Pierre Costa PA-C 11/09/2022 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, stag e 4 (severe) Matilda Atkinson JR, DO 11/09/2022 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, stag e 4 (severe) Lab - [place] 11/09/2022 D64.9 Anemia, unspecified Matilda Atkinson JR, DO 11/09/2022 D64.9 Anemia, unspecified Lab [place] Plan of Treatment Future Appointment(s):* 07/11/2023 6:30 am - [place] * 07/17/2023 11:00 am - Matilda Atkinson JR, DO at [place] 04/11/2023 - Matilda Atkinson JR, DO* Z00.01 [...] Referral Status Appt Timothy Zi Silva [address] [place] [address] Dr Hunter 1 [phone]
--- OUTSIDE RECORDS SUMMARY | 2023-08-21 23:54 | External Medical Summary | Summary of Care ---
Author Name Unknown Organization [facility] Address [address] [place] [address] Phone [phone] Care Team Providers Care Electrical Parts Reconditioner Name Role Phone Poly Basilio DO, Kenneth Primary Care Provider [phone] Encounter Details Date Type Department Care Team Description 04/06/2023 Hospital Encounter Radiology, [address] [place] [address] Arrived Allergies No known active allergiesdocumented as of this encounter (statuses as of 04/07/2023) Medications Medication Sig Dispensed Refills Start Date [...] 650 mg. 0 Active Vitamin D, Ergocalciferol, 98453 units Capsule 50,000 Units. 0 Active ondansetron [...] as of this encounter (statuses as of 04/07/2023) Active Problems Problem Noted Date Anemia 06/20/2022 Moderate malnutrition 04/11/2019 Febrile neutropenia 04/10/2019 Sepsis 04/10/2019 CAD (coronary artery disease) 04/10/2019 CKD (chronic kidney disease) 04/10/2019 Lymphoma 04/10/2019 PVD (peripheral vascular disease) 2018 HTN (hypertension) 04/10/2019 HLD (hyperlipidemia) 04/10/2019 ADVANCE DIRECTIVE INFORMATION 06/07/2009 Overview: No, Advance Directive brochure offered , patient declined. documented as of this encounter (statuses as of 04/07/2023) Immunizations Name Administration Dates Next Due Pneumococcal [...] as of this encounter Plan of Treatment Pending Results Name Type Priority Associated Diagnoses Date /Time US SCROTUM/TESTES Medical Imaging Routine Hydrocele 04/06/2023 9:06 AM EDT Scheduled Orders Name Type Priority Associated Diagnoses Orde r Schedule US SCROTUM/TESTES Medical Imaging Routine Hydrocele 1 Occurrences starting 04/06/2023 until 04/06/2023 Health Maintenance Due Date Last Done Comments COVID-19 Vaccine (#1) 1945 Depression Screening, Annual for Pts 12 and Over 1957 Hepatitis C Screening 1963 DTaP,Tdap,and Td Vaccines (1 - Tdap) 02/07/1964 Zoster Vaccines (1 of 2) 02/07/1964 Pneumococcal Vaccine: 65+ Years (2 - PCV) 07/22/2005 07/22/2004 GFR 04/04/2024 04/04/2023, 03/08, 02/28/2023, Additional history exists Albumin/Creatinine Ratio 02/08/2025 02/08/2022 Influenza Vaccine (FLU shot) Completed , 07/11/2018, 10/02/2017, Additional history exists GARDASIL-HPV IMMUNIZATION SERIES Aged [...] as of this encounter Visit Diagnoses Diagnosis Hydrocele Hydrocele, unspecified documented in this encounter Advance Directives Latest [...] the patient have Health Care Power of Inbound Sales Consultant? No Care Teams Electrical Parts Reconditioner Relationship Specialty Start Date End Date Vinod Pang Jr., DO [address] [place] [address] PCP - General 04/26/09 documented as of this encounter
--- OUTSIDE RECORDS SUMMARY | 2023-08-21 23:54 | External Medical Summary | Continuity of Care Document ---
Author Name MATILDA ATKINSON DO Address [address] [place] [address] [place] [address] Phone [phone] Organization [place] Address [address] [place] [address] RD, [place] [address] Phone [phone] Care Team Providers Care Supervisor Sheet Manufacturing Name Role Phone GI - Gastroenterology Care Team Information Rece Fermín Harrell MD Care Team Information Receiv er [phone] Rory Hodge Care Team Information Playground Attendant [phone] Nixon Aden MD Care Team Information Playground Attendant [phone] Abran Eugene JR - Interven tional Pain Medicine Care Team Information Playground Attendant [phone] Medardo Trinidad MD Care Team Information Receive r [phone] Sinan Marks MD Care Team Information Receive r [phone] Problems Active Problems Provider Date Chronic kidney [...] Atkinson JR, DO On set: 09/01/2015 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 Ocean Import Representative (Cu rrent) Use Encounter Matilda Atkinson JR [...] SIG Qnty Indications Ordering Provider Date Clopidogrel Czgnnyqil69bp Tablets Take One (1) Tablet By Mouth Every Day 30tabs I73.9 Matilda L. Poly JR, DO 08/24/2021 Citalopram Etbogynabodb69ow Tablets Take One (1) Tablet By Mouth Every Day 90tabs F33.1 Matilda Atkinson JR, DO 06/23/2019 Cjcfuczzkgn1hr Tablets Take One Tablet By Mouth Once Daily 30tabs Matilda Atkinson JR, DO 11/12/2017 Oxycodone-Acetaminophe n7.5-325mg Tablets take one tablet every 6 h as needed pain--ongoing therapy 60tabs Matilda Atkinson JR, DO 01/22/2014 Atorvastatin Mhrsage76xj Tablets Take One Tablet By Mouth AT Bedtime 90tabs E78.0 Matilda Atkinson JR, DO E78.00 Sikdyo28407Gfnh/ML Solution 40,000 units monthly Unknown Albuterol Sulfate ERI048(90B ase) mcg/Act Aerosol 2 puffs by mouth every 4-6 hours as needed wheezing Unknown Yqfximawqs26vx Tablets 1 by mouth twice a day 180tabs Unknown Pantoprazole Eemfwf49qr Tabl ets DR 1 by mouth every day Unknown 000 Ewifpzf7an Tablets 1 by mouth twice a day Unknown Bumetanide0.5mg Tablets 1 or 2 by mouth every day as needed Unknown Tamsulosin HCL0.4mg Capsules 1 by mouth every day Unknown History Medications Nitrofurantoin Monohyd Ljcqh394ly Capsules take 1 capsule twice daily for 10 days 20caps Gisella Lisa MD, PhD 03/23/2023 - 04/10/2023 Jqwkudoqxl154ei Tablets take 1 tab by mouth twice [...] CPT Code Status Date Vaccine Lot # 21814 Given 10/04/2022 Influenza Vaccine High Do se 0.5ML [id number] U-FLU Given 10/04/2022 Influenza,Unspecified 08043 Given 08/11/2020 Influenza Vacci ne-Administered at another facility U-FLU Given 08/11/2020 Influenza,Unspecified U-FLU Given 08/23/2019 Influenza,Unspecified 51268 Given 08/23/2019 Influenza Vacci ne-Administered at another facility 49511 Given 07/11/2018 Influenza Vac, Split, Preservative Free High Dose Age 65 & > [id number] 84473 Given 10/02/2017 Pneumococcal Conjugate-Pr evnar 13 28578 Given 10/02/2017 Influenza Vac, Split, Preservative Free High Dose Age 65 & > 23442 Given 08/14/2016 Influenza Virus Vaccine, Quadrivalent, Im Use [id number] 16391 Given 09/01/2015 Influenza Vac, Split, Preservative Free High Dose Age 65 & > [id number] 05362 Given 09/01/2015 Pneumococcal Conjugate-Pr evnar 13 [id number] 93994 Given 07/21/2014 Influenza Vac, Split, Preservative Free High Dose Age 65 & > [id number] U-FLU Given 07/21/2014 Influenza,Unspecified 26086 Given 01/31/2014 Pneumococcal Vaccine/Pneu movax 23 10521 Given 07/17/2013 Influenza Vac, Split, Preservative Free High Dose Age 65 & > [id number] 89767 Given 07/24/2012 Influenza Vac, Split, Preservative Free High Dose Age 65 & > [id number] 75583 Given 07/04/2011 Influenza Vac, Split, Preservative Free High Dose Age 65 & > [id number] 15246 Given 08/16/2010 Pneumococcal Vaccine/Pneu movax 23 [id number] 61661 Given 10/21/2009 Influenza Vac, Split 3 Yr s And Up [id number] 10462 Given 07/24/2008 Influenza Vac, Split 3 Yr s And Up U-FLU Given 07/22/2008 Influenza,Unspecified 52035 Given 10/27/2004 Influenza Vac, Split 3 Yr s And Up 59913 Given 07/22/2004 Pneumococcal Vaccine/Pneu movax 23 90539 Refused 04/11/2023 Moderna Sars-Co v-2 (Covid-19) vaccine, 100 mcg/ 0.5 mL 12Y+ 61341 Refused 04/11/2023 Shingrix 35881 Refused 07/26/2021 Moderna Sars-Co v-2 (Covid-19) vaccine, 100 mcg/ 0.5 mL 12Y+ 08375 Refused 09/28/2020 Tdap (Tetanus, diphtheria & acel. pertussis) Adacel or Boostrix 47157 Refused 09/28/2020 Shingrix 81466 Refused 08/19/2020 Influenza Virus Vaccine, Quadrivalent, Im Use 23620 Refused 07/11/2016 Influenza Vac, Split, Preservative Free High Dose Age 65 & > Vital Signs Date Vital Result Comment 04/11/2023 9:23am BP Systolic 128 mmHg BP Diastolic 66 mmHg Heart Rate 76 /min Respiratory Rate 18 /min Weight 202.00 lb Weight 91.627 kg Height 66 inches 5'6" BMI (Body Mass Index) 32.6 kg/m2 [place] Body Weight 142 lb 03/19/2023 1:08pm BP Systolic 100 mmHg BP Diastolic 40 mmHg Body Temperature 97.7 F Heart Rate 72 /min Respiratory Rate 16 /min Weight 201.12 lb Weight 91.230 kg O2 % BldC Oximetry 96 % Results Test Acquired Date Facility Test Result H/L Range N ote Order 04/11/2023 [facility] [phone] [facility] For Diabetic Retinopathy <pending> Comp. Met 04/04/2023 [facility] [address] [place], [place] [address] [phone] Glucose 116 mg/dL High 70-110 BUN 45 [...] GFR 24 ML/MIN/1.73SQM Low >60 Hba1c 04/04/2023 [facility] [address] [place] [address] [phone] A1c 5.70 % 4.70-6.50 1 Laboratory test finding 04/04/2023 [facility] [address] [place] [address] [phone] Ferritin 50.30 ng/mL 22.00-415.0 Tibc 04/04/2023 [facility] [address] [place] [address] [phone] Tibc 297 g /dL 260-400 Transferrin 212 mg/dL 200-400 Laboratory test finding 04/04/2023 [facility] [address] [place], [place] [address] [phone] TSH 2.51 uIU/mL 0.50-6.00 FRT4 0.79 ng/dL 0.75-1.54 Lipid 04/04/2023 [facility] [address] [place] [address] [phone] Cholesterol 121 mg/dL 0-200 2 Triglyceride 71 mg/dL 0-150 3 HDLD 38 mg/dL See Comment 4 Measured LDL 70 mg/dL 0-130 5 Calc VLDL 14.2 mg/dL See Comment 6 Chol/HDL 3.2 RATIO See Comment 7 Non-HDL 83 mg/dL See Comment 8 CBC W/Diff 04/04/2023 [facility] [address] [place] [address] [phone] WBC 6.1 10^3/M3 3.1-9.2 RBC 3.34 10^6/M3 Low 4.00-5.80 HGB 9.4 GR/DL Low 12.5-17.5 HCT 29.3 % Low 37.5-52.5 MCV 88.0 CUMICR 82.6-95.8 MCH 28.3 PICOGR 27.9-32.9 MCHC 32.2 % Low 32.6-35.4 RDW 16.5 % High 11.4-14.6 PLT 285 10^3/M3 140-350 MPV 7.9 CUMICR 7.0-10.6 %Neut 68.7 % 40.0-75.0 %Lymph 7.8 % Low 17.0-45.0 %Bremer 9.3 % 1.0-11.0 %Eos 13.1 % High 0.0-6.0 %Baso 1.1 % 0.0-2.0 #Neut 4.2 10^3/M3 1.5-8.0 #Lymph 0.5 10^3/M3 Low 0.8-3.2 #Bremer 0.6 10^3/M3 0.0-0.8 #Eos 0.8 10^3/m3 High 0.0-0.4 #Baso 0.1 10^3/m3 0.0-0.2 Iron Panel([facility]) 04/04/2023 [facility]. [address] [place], [place] [id number] [phone] Iron 33 g /dL Low 45-140 % Saturation 11 % Low 30-35 Urinalysis 03/19/2023 [facility] [address] [place] [address] [phone] Color LIGHT-YELLOW Appearance CLEAR Clear Spec.Grav. 1.010 1.005-1.025 Leukocytes LARGE Abnormal Negative Nitrite NEGATIVE Negative PH 6.0 6.0-7.5 Protein TRACE Abnormal Negative Urine Glucose NEGATIVE Negative Ketone NEGATIVE Negative Urobilinogen NORMAL E.U./DL Normal Bilirubin NEGATIVE Negative Blood NEGATIVE Negative WBC-U TNTC /HPF Abnormal 0-5/HPF RBC-U 3-5 /HPF 0-5/HPF Bacteria 1+ Abnormal None Seen Squamous 0-2 /HPF 0-5/HPF Laboratory test finding 03/19/2023 [facility] [address] [place] [address] [phone] BNP 904.0 pg/mL Critical high 0.0-100.0 BMP 03/19/2023 [facility] [address] [place] [address] [phone] Glucose 132 mg/dL High 70-110 BUN 43 mg/dL High 6-25 Creatinine 3.1 mg/dL Critical high 0.7-1.3 9 Sodium 141 mEq/L 135-145 Potassium 4.0 mEq/L 3.5-5.0 Chloride 105 mEq/L 95-107 Co-2 22 mEq/L Low 24-31 Calcium 9.1 mg/dL 8.5-10.6 GFR 21 ML/MIN/1.73SQM Low >60 Laboratory test finding 03/19/2023 [facility] (In Office Test) Sars Rna QL PCR - In Office Not Detected. Urine Culture 03/19/2023 [facility] [address] [place] [address] [phone] Urine Source URINE Total Col Count >100,000 COL/CC Urine Isolate#1 03/19/2023 [facility] [address] [place] [address] [phone] Isolate #1 Enterococcus mar <SEE NOTE> 10 Ampicillin >8 R Ciprofloxacin >2 R Levofloxacin >4 R Linezolid <=2 S Nitrofurantoin <=32 S Penicillin >8 R Rifampim >2 R Tetracycline >8 R Vancomycin >16 R CBC W/Diff 03/19/2023 [facility] [address] [place] [address] [phone] WBC 6.3 10^3/M3 3.1-9.2 RBC 3.06 10^6/M3 Low 4.00-5.80 HGB 9.0 GR/DL Low 12.5-17.5 HCT 29.4 % Low 37.5-52.5 MCV 95.8 CUMICR 82.6-95.8 MCH 29.4 PICOGR 27.9-32.9 MCHC 30.7 % Low 32.6-35.4 RDW 17.6 % High 11.4-14.6 PLT 266 10^3/M3 140-350 MPV 8.2 CUMICR 7.0-10.6 %Neut 76.3 % High 40.0-75.0 %Lymph 7.3 % Low 17.0-45.0 %Bremer 8.7 % 1.0-11.0 %Eos 7.0 % High 0.0-6.0 %Baso 0.7 % 0.0-2.0 #Neut 4.8 10^3/M3 1.5-8.0 #Lymph 0.5 10^3/M3 Low 0.8-3.2 #Bremer 0.5 10^3/M3 0.0-0.8 #Eos 0.4 10^3/m3 0.0-0.4 #Baso 0.0 10^3/m3 0.0-0.2 Laboratory test finding 02/28/2023 [facility] [address] [place], [place] [id number] [phone] Vitd-25Oh 46 ng/mL 30-100 Renal Panel 02/28/2023 [facility] [address] [place] [address] [phone] Glucose 96 mg/dL 70-110 11 BUN 56 mg/dL High 6-25 Creatinine 2.9 mg/dL High 0.7-1.3 Sodium 142 mEq/L 135-145 Potassium 4.4 mEq/L 3.5-5.0 Chloride 109 mEq/L High 95-107 Co-2 23 mEq/L Low 24-31 Calcium 8.4 mg/dL Low 8.5-10.6 Phosphorus 3.3 mg/dL 2.5-4.8 Albumin 3.5 g/dL 3.0-5.2 GFR 22 Low >60 CBC No Diff 02/28/2023 [facility] [address] [place] [address] [phone] WBC 5.9 10^3/M3 3.1-9.2 RBC 2.90 10^6/M3 Low 4.00-5.80 HGB 8.6 GR/DL Low 12.5-17.5 HCT 27.9 % Low 37.5-52.5 MCV 96.3 CUMICR High 82.6-95.8 MCH 29.6 PICOGR 27.9-32.9 MCHC 30.8 % Low 32.6-35.4 RDW 18.5 % High 11.4-14.6 PLT 238 10^3/M3 140-350 MPV 8.0 CUMICR 7.0-10.6 BMP 02/13/2023 [facility] [address] [place] [address] [phone] Glucose 99 mg/dL 70-110 12, 13 BUN 59 mg/dL High 6-25 Creatinine 3.0 mg/dL High 0.7-1.3 Sodium 142 mEq/L 135-145 Potassium 3.8 mEq/L 3.5-5.0 Chloride 106 mEq/L 95-107 Co-2 27 mEq/L 24-31 Calcium 9.0 mg/dL 8.5-10.6 GFR 22 Low >60 Laboratory test finding 02/13/2023 [facility] [address] [place] [address] [phone] BNP 490.0 pg/mL Critical high 0.0-100.0 14 H & H 02/13/2023 [facility] [address] [place] [address] [phone] HGB 9.9 GR/DL Low 12.5-17.5 HCT 30.6 % Low 37.5-52.5 Laboratory test finding 02/13/2023 [facility] [address] [place] [address] [phone] Magnesium 2.1 mg/dL 1.7-2.8 Renal Panel 02/05/2023 [facility] [address] [place] [address] [phone] Glucose 104 mg/dL 70-110 15 BUN 42 mg/dL High 6-25 Creatinine 3.0 mg/dL High 0.7-1.3 Sodium 150 mEq/L High 135-145 Potassium 4.9 mEq/L 3.5-5.0 Chloride 114 mEq/L High 95-107 Co-2 25 mEq/L 24-31 Calcium 8.9 mg/dL 8.5-10.6 Phosphorus 3.7 mg/dL 2.5-4.8 Albumin 3.8 g/dL 3.0-5.2 GFR 22 Low >60 CBC No Diff 02/05/2023 [facility] [address] [place] [address] [phone] WBC 5.1 10 3.1-9.2 RBC 3.28 10 Low 4.00-5.80 HGB 9.6 GR/DL Low 12.5-17.5 HCT 30.9 % Low 37.5-52.5 MCV 94.4 CUMICR 82.6-95.8 MCH 29.3 PICOGR 27.9-32.9 MCHC 31.1 % Low 32.6-35.4 RDW 17.8 % High 11.4-14.6 PLT 195 10 140-350 MPV 8.2 CUMICR 7.0-10.6 Laboratory test finding 02/05/2023 [facility] [address] [place] [address] [phone] Vitd-25Oh 38 ng/mL 30-100 Renal Panel 11/09/2022 [facility] [address] [place], [place] [address] [phone] Glucose 96 mg/dL 70-110 16 BUN 50 mg/dL High 6-25 Creatinine 3.4 mg/dL Critical high 0.7-1.3 17 Sodium 141 mEq/L 135-145 Potassium 4.5 mEq/L 3.5-5.0 Chloride 108 mEq/L High 95-107 Co-2 21 mEq/L Low 24-31 Calcium 8.9 mg/dL 8.5-10.6 Phosphorus 4.3 mg/dL 2.5-4.8 Albumin 3.7 g/dL 3.0-5.2 GFR 19 Low >60 Laboratory test finding 11/09/2022 [facility] [address] [place], [place] [address] [phone] Ferritin 64.20 ng/mL 22.00-415.0 CBC No Diff 11/09/2022 [facility] [address] [place], [place] [address] [phone] WBC 7.2 10 3.1-9.2 RBC 3.66 10 Low 4.00-5.80 HGB 11.3 GR/DL Low 12.5-17.5 HCT 35.1 % Low 37.5-52.5 MCV 96.0 CUMICR High 82.6-95.8 MCH 30.9 PICOGR 27.9-32.9 MCHC 32.2 % Low 32.6-35.4 RDW 16.7 % High 11.4-14.6 PLT 243 10 140-350 MPV 7.7 CUMICR 7.0-10.6 Iron Panel(Med[facility]) 11/09/2022 [facility]. [address] [place] [address] [phone] Iron 80 g /dL 45-140 18 % Saturation 24 % Low 30-35 Tibc 11/09/2022 [facility]. [address] [place] [address] [phone] Tibc 337 g /dL 260-400 Transferrin 241 [...] fax results t o Litzy Baez PA-C [phone] F- [phone] REPORT FAXED TO DOCT OR, REQUESTED ON REQUISITION.02/14/23 LM 14 CRITICAL RESULTS LUCI IFIED, FAXED, AND CALLED TO LASHON HENRY @ 4:09. 02/13/23 MH 15 REPORT FAXED TO DOCT OR, REQUESTED ON REQUISITION. 02.06.23 ESEQUIEL 16 Fax to [phone] [facility] P: [phone] CRITICAL RESULTS LUCI IFIED, FAXED, AND CALLED TO AMANDA AT 4:50 PM ON 11/09/22 ALB 18 REPORT FAXED TO DOCT OR, REQUESTED ON REQUISITION.11/10/22 LM Procedures Date Code Description Status 04/11/2023 31841 Fundus Eye Exam Completed 04/11/2023 3725F Screening Depression Perform ed Completed 04/11/2023 3288F Fall Risk Assessment Documen awais Completed 04/11/2023 3078F PVRP Diastolic BP <80 mmHg C ompleted 04/11/2023 3074F PVRP Systolic BP <130 mmHg C ompleted 04/11/2023 1100F PT Screened Futu re Fall Risk >/=2 Falls In Past Yr/1 W/Injury Completed 04/04/2023 06839 Venipuncture Routine Complet ed 03/19/2023 28281 Venipuncture Routine Complet ed 02/28/2023 78522 Venipuncture Routine Complet ed 02/13/2023 91648 Venipuncture Routine Complet ed 01/15/2023 1111F D/C Medications Reconciled W/Current Medications In Outpt MR Completed 01/12/2023 1111F D/C Medications Reconciled W/Current Medications In Outpt MR Completed 11/09/2022 19066 Venipuncture Routine Complet ed Medical Devices Description [...] with diabetic nephropathy Office Visit 03/19/2023 1:00p [place] [facility]el Ovalle Ohnm acht, DO R06.02 Shortness of breath Office Visit 01/15/2023 11:00a [place] Watkins op, PA-C N40.1 Benign prostatic hyperplasia with lower urinary tract symp A41.50 Gram-negative sepsis , unspecified Assessments Date Code Description Provider 04/11/2023 Z00.01 Encounter for [facility] [...] hyperp arathyroidism of renal origin Lab - [place] 04/04/2023 E78.00 Pure hypercholesterolemia, u nspecified Matilda Atkinson JR, DO 04/04/2023 E78.00 Pure hypercholesterolemia, u nspecified Lab - [place] 04/04/2023 E88.81 Metabolic syndrome Matlida Atkinson JR, DO 04/04/2023 E88.81 Metabolic syndrome Lab - [facility] [place] 04/04/2023 D64.9 Anemia, unspecified Matilda Atkinson JR, DO 04/04/2023 E11.21 Type 2 diabetes mellitus with diabetic nephropathy Matilda Atkinson JR, DO 03/19/2023 R06.02 Shortness of breath Migel hagen, DO 02/28/2023 N17.9 Acute kidney failure, unspec ified Matilda Atkinson JR, DO 02/28/2023 N17.9 Acute kidney failure, unspec ified Lab - [place] 02/28/2023 E55.9 Vitamin D deficiency, unspec ified Matilda Atkinson JR, DO 02/28/2023 E55.9 Vitamin D deficiency, unspec ified Lab - [place] 02/28/2023 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, stag e 4 (severe) Matilda Atkinson JR, DO 02/28/2023 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, stag e 4 (severe) Lab - [place] 02/13/2023 I50.9 Heart failure, unspecified K dusty Atkinson JR, DO 02/13/2023 I50.9 Heart failure, unspecified L ab - [place] 02/13/2023 E11.21 Type 2 diabetes mellitus with diabetic nephropathy Matilda Atkinson JR, DO 02/05/2023 N17.9 Acute kidney failure, unspec ified Matilda Atkinson JR, DO 02/05/2023 N17.9 Acute kidney failure, unspec ified Lab - [place] 02/05/2023 E55.9 Vitamin D deficiency, unspec ified Matilda Atkinson JR, DO 02/05/2023 E55.9 Vitamin D deficiency, unspec ified Lab - [place] 02/05/2023 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, stag e 4 (severe) Matilda Atkinson JR, DO 02/05/2023 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, stag e 4 (severe) Lab - [place] 01/15/2023 N40.1 Benign prostatic hyperplasia with lower urinary tract symptoms Pierre Costa PA-C 01/15/2023 A41.50 Gram-negative sepsis, unspec ified Pierre Costa PA-C 11/09/2022 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, stag e 4 (severe) Matilda [place] JR, DO 11/09/2022 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, stag e 4 (severe) Lab - [place] 11/09/2022 D64.9 Anemia, unspecified Matilda Atkinson JR, DO 11/09/2022 D64.9 Anemia, unspecified [facility] Plan of Treatment Future Appointment(s):* 07/11/2023 6:30 am - [facility] [place] * 07/17/2023 11:00 am - Matilda Atkinson JR, DO at [place] 04/11/2023 - Matilda Atkinson JR, DO* Z00.01 [...] for Referral Status Appt Didi Silva [address] [place] [address] Dr Hunter 5 [phone]
--- OUTSIDE RECORDS SUMMARY | 2023-08-21 23:54 | External Medical Summary ---
Author Name Unknown Address Unknown Organization K1C:[facility] [address] [place] [address] Laboratory Report Ordering Provider Test Date Status DEMETRIO GREY 04/11/2023 09:59 Final Observation Date Value Abnormality Reference (Units ) Status Creatinine [Moles/volume] in Urine 04/11/2023 14:59 74 COMMENT (mg/dl) Final Albumin, Urine 04/11/2023 14:59 7.8 Above high normal 0.0-1.8 (MG/DL) Final *[facility] [employer] USES MICROALBUMIN/CREATINE RATIO :
*<30 ug/mg CREATININE IS CLASSIFIED NORMAL
*30-300 ug/mg CREATININE IS CLASSIFIED CLINICAL MICROALBUMINURIA
*>300 ug/mg CREATININE IS CLASSIFIED CLINICAL ALBUMINURIA
CLASSIFICATION OF A PATIENT SHOULD BE BASED ON TWO OF THREE ABNORMAL
RESULTS COLLECTED WITHIN A 3 TO 6 MONTH TIME FRAME*

null ug/mgCREATININE 04/11/2023 14:59 105 Above high normal 0-29 (ug/mg) Final Performing Location [facility] [address] [place] [address]
--- OUTSIDE RECORDS SUMMARY | 2023-08-21 23:55 | External Medical Summary ---
Lipid panel Created on: April 04, 2023 MEGANUSMANMEG External Reference #: [id number] : 1945 Sex: Male Author Name Unknown Address Unknown Organization [facility]:[address] [place] [address] Laboratory Report Ordering Provider Test Date Status DEMETRIO GREY 04/04/2023 06:46 Final Observation Date Value Abnormality Reference (Units ) Status Cholesterol 04/04/2023 09:52 121 0-200 (MG/D L) Final CHOLESTEROL
Less than 2 00mg/dl Low risk
201-239 mg/dl Borderline risk
Equal to or greater 240mg/dl High risk Triglyceride 04/04/2023 09:52 71 0-150 (MG/ DL) Final TRIGLYCERIDES
Less than 150mg/dl Normal
150-199mg/dl Borderline
200-499mg/dl High
Greater than 500mg/dl Very High HDL 04/04/2023 09:52 38 SEE COMMENT ( MG/DL) Final HDL
<40mg/dl Elevated R isk
41-59mg/dl Risk
>=60mg/dl Least Risk Cholesterol in LDL [Mass/vol ume] in Serum or Plasma 04/04/2023 09:52 70 0-130 (MG/DL) Final LDL
<100mg/dl Optimal<b r/> 100-129mg/dl Near Optimal
130-159mg/dl Borderline High
160-189mg/dl High
>=190 Very High Cholesterol in VLDL [Mass/vo lume] in Serum or Plasma 04/04/2023 09:52 14.2 SEE COMMENT (MG/DL ) Final VLDL
Less than 30mg/dl Normal HDL 04/04/2023 09:52 3.2 SEE COMMENT ( RATIO) Final CHOL/HDL
<4.0 Optimal<b r/> 4.0-5.0 Borderline
>6.0 High Risk NON-HDL 04/04/2023 09:52 83 SEE COMMENT ( MG/DL) Final NON-HDL
30mg/dl higher than LDL Target Performing Location [facility] [address] [place] [address]
--- OUTSIDE RECORDS SUMMARY | 2023-08-21 23:55 | External Medical Summary ---
Author Name Unknown Address Unknown Organization K1C:[facility] [address] [place] [address] Laboratory Report Ordering Provider Test Date Status DEMETRIO GREY 04/04/2023 06:46 Final Observation Date Value Abnormality Reference (Units ) Status Iron 04/04/2023 09:52 33 Below low normal 45-140 (ug/dL) Final Performing Location [facility] [address] [place] [address]
--- OUTSIDE RECORDS SUMMARY | 2023-08-21 23:55 | External Medical Summary ---
Author Name Unknown Address Unknown Organization K1C:[facility] [address] [place] [address] Laboratory Report Ordering Provider Test Date Status DEMETRIO GREY 04/04/2023 06:46 Final Observation Date Value Abnormality Reference (Units ) Status Ferritin 04/04/2023 10:02 50.30 22.00-415.0 ( ng/mL) Final Performing Location [facility] [address] [place] [address]
--- OUTSIDE RECORDS SUMMARY | 2023-08-21 23:55 | External Medical Summary ---
Author Name Unknown Address Unknown Organization K1C:[facility] [address] [place] [address] Laboratory Report Ordering Provider Test Date Status MATILDADEMETRIO 04/04/2023 06:46 Final Observation Date Value Abnormality Reference (Units ) Status % SATURATION 04/04/2023 13:57 11 Below low normal 30- 35 (%) Final Performing Location [facility] [address] [place] [address]
--- OUTSIDE RECORDS SUMMARY | 2023-08-21 23:55 | External Medical Summary | Summary of Care ---
Author Name Unknown Organization [facility] [address] [facility] [address] Phone [phone] Care Team Providers Care Supervisor Spring Up Name Role Phone Poly Basilio DO, Kenneth Primary Care Provider [phone] Encounter Details Date Type Department Care Team Description 04/04/2023 Orders Only Unspecified Department Vinod Pang Jr., DO [address] [facility] [address] Allergies No known active allergiesdocumented as of this encounter (statuses as of 04/04/2023) Medications Medication Sig Dispensed Refills Start Date [...] 650 mg. 0 Active Vitamin D, Ergocalciferol, 75482 units Capsule 50,000 Units. 0 Active ondansetron [...] as of this encounter (statuses as of 04/04/2023) Active Problems Problem Noted Date Anemia 06/20/2022 Moderate malnutrition 04/11/2019 Febrile neutropenia 04/10/2019 Sepsis 04/10/2019 CAD (coronary artery disease) 04/10/2019 CKD (chronic kidney disease) 04/10/2019 Lymphoma 04/10/2019 PVD (peripheral vascular disease) 2018 HTN (hypertension) 04/10/2019 HLD (hyperlipidemia) 04/10/2019 ADVANCE DIRECTIVE INFORMATION 06/07/2009 Overview: No, Advance Directive brochure offered , patient declined. documented as of this encounter (statuses as of 04/04/2023) Immunizations Name Administration Dates Next Due Pneumococcal [...] Encounters Date Type Specialty Care Team Description 04/06/2023 Appointment Radiology Health Maintenance Due Date Last Done Comments COVID-19 Vaccine (#1) 1945 Depression Screening, Annual for Pts 12 and Over 1957 Hepatitis C Screening 1963 DTaP,Tdap,and Td Vaccines (1 - Tdap) 02/07/1964 Zoster Vaccines (1 of 2) 02/07/1964 Pneumococcal Vaccine: 65+ Years (2 - PCV) 07/22/2005 07/22/2004 GFR 03/19/2024 04/04/2023, 03/08, 02/28/2023, Additional history exists Albumin/Creatinine [...] Procedure Name Priority Date/Time Associated Diagnosis Comments FRT4 - OUTSIDE LAB Routine 04/04/2023 6: 46 AM EDT % SATURATION - OUTSIDE LAB Routine 04/04/2023 6:46 AM EDT TIBC - OUTSIDE LAB Routine 04/04/2023 6: 46 AM EDT A1C - OUTSIDE LAB Routine 04/04/2023 6:4 6 AM EDT COMPREHENSIVE METABOLIC PANEL Routine 04/04/2023 6:46 AM EDT CBC WITH WBC DIFFERENTIAL Routine 04/04/2023 6:46 AM EDT TSH Routine 04/04/2023 6:46 AM EDT IRON Routine 04/04/2023 6:46 AM EDT FERRITIN Routine 04/04/2023 6:46 AM EDT LIPID PANEL WITHOUT DIRECT LDL Routine 04/04/2023 6:46 AM EDT documented in this encounter Results * TSH (04/04/2023 6:46 AM EDT) TSH REFLEX - OUTSIDE LAB 2.51 0.50 - 6.00 uIU/mL [facility] Comment:Document delivery by [place] on behalf of [facility] 04/04/2023 6:46 AM EDT Vinod Pang Jr., DO LAB BLOOD ORDERAB LES Performing Organization Address City/[facility]/ZIP Co de Phone Number [facility] [address] [facility] [address] [place] [phone] * (ABNORMAL) % SATURATION - OUTSIDE LAB (04/04/2023 6:46 AM EDT) %SAT-OUTSIDE LAB 11(L) 30 - 35 % [facility] Comment:Document delivery by [place] on behalf of [facility] 04/04/2023 6:46 AM EDT Vinod Pang Jr., DO LABORATORY Performing Organization Address City/[facility]/ZIP Co de Phone Number [facility] 1 [facility] [address] [place] [phone] * (ABNORMAL) CBC WITH WBC DIFFERENTIAL (04/04/2023 6:46 AM EDT) WBC-OUTSIDE LAB 6.1 3.1 - 9.2 10^3/M3 [facility] Comment:Document delivery by [place] on behalf of [facility] RBC-OUTSIDE LAB 3.34(L) 4.00 - 5.80 10^6/M3 [facility] Comment:Document delivery by [facility] on behalf of [facility] HGB - OUTSIDE LAB 9.4(L) 12.5 - 17.5 GR/DL [facility] Comment:Document delivery by [facility] on behalf of [facility] HCT-OUTSIDE LAB 29.3(L) 37.5 - 52.5 % [facility] Comment:Document delivery by [facility] on behalf of [facility] MCV-OUTSIDE LAB 88.0 82.6 - 95.8 CU MICR [facility] Comment:Document delivery by [facility] on behalf of [facility] MCH-OUTSIDE LAB 28.3 27.9 - 32.9 AJ GR [facility] Comment:Document delivery by [facility] on behalf of [facility] MCHC-OUTSIDE LAB 32.2(L) 32.6 - 35.4 % [facility] Comment:Document delivery by [facility] on behalf of [facility] RDW-OUTSIDE LAB 16.5(H) 11.4 - 14.6 % [facility] Comment:Document delivery by [facility] on behalf of [facility] PLT-OUTSIDE LAB 285 140 - 350 10^3/M3 [facility] Comment:Document delivery by [facility] on behalf of [facility] MPV-OUTSIDE LAB 7.9 7.0 - 10.6 CU MICR [facility] Comment:Document delivery by [facility] on behalf of [facility] %NEUT - OUTSIDE LAB 68.7 40.0 - 75.0 % [facility] Comment:Document delivery by [facility] on behalf of [facility] %LYMPH - OUTSIDE LAB 7.8(L) 17.0 - 45.0 % [facility] Comment:Document delivery by [facility] on behalf of [facility] %MONO - OUTSIDE LAB 9.3 1.0 - 11.0 % [facility] Comment:Document delivery by [facility] on behalf of [facility] EO%-OUTSIDE LAB 13.1(H) 0.0 - 6.0 % [facility] Comment:Document delivery by [facility] on behalf of [facility] BASOPHILS - OUTSIDE LAB 1.1 0.0 - 2.0 % [facility] Comment:Document delivery by [facility] on behalf of [facility] #NEUT - OUTSIDE LAB 4.2 1.5 - 8.0 10^3/M3 [facility] Comment:Document delivery by [facility] on behalf of [facility] %LYMPH - OUTSIDE LAB 0.5(L) 0.8 - 3.2 10^3/M3 [facility] Comment:Document delivery by [place] on behalf of [facility] %MONO - OUTSIDE LAB 0.6 0.0 - 0.8 10^3/M3 [facility] Comment:Document delivery by [place] on behalf of [facility] EO#-OUTSIDE LAB 0.8(H) 0.0 - 0.4 10^3/m3 [facility] Comment:Document delivery by [place] on behalf of [facility] Basophils Absolute-Outsi de Lab 0.1 0.0 - 0.2 10^3/m3 [facility] Comment:Document delivery by [place] on behalf of [facility] 04/04/2023 6:46 AM EDT Vinod Pang Jr., DO LAB BLOOD ORDERAB LES [facility] [address] [facility] [address] [place] [address] * (ABNORMAL) COMPREHENSIVE METABOLIC PANEL (04/04/2023 6:46 AM EDT) GLUCOSE-OUTSID E LAB 116(H) 70 - 110 MG/DL [facility] Comment:Document delivery by [place] on behalf of [facility] BUN-OUTSIDE LAB 45(H) 6 - 25 MG/DL [facility] Comment:Document delivery by [place] on behalf of [facility] CREATININE-OUT SIDE LAB 2.7(H) 0.7 - 1.3 MG/DL [facility] Comment:Document delivery by [place] on behalf of [facility] SODIUM-OUTSIDE LAB 144 135 - 145 MEQ/L [facility] Comment:Document delivery by [place] on behalf of [facility] POTASSIUM-OUTS BRIT LAB 4.4 3.5 - 5.0 MEQ/L [facility] Comment:Document delivery by [place] on behalf of [facility] CHLORIDE-OUTSI DE LAB 109(H) 95 - 107 MEQ/L [facility] Comment:Document delivery by [place] on behalf of [facility] CO2-OUTSIDE LAB 24 24 - 31 MEQ/L [facility] Comment:Document delivery by [place] on behalf of [facility] ALKALINE PHOSPHATASE-OU TSIDE LAB 53 43 - 122 IU/L [facility] Comment:Document delivery by [place] on behalf of [facility] ALT-OUTSIDE LAB 9(L) 10 - 40 IU/L [facility] Comment:Document delivery by [place] on behalf of [facility] AST-OUTSIDE LAB 11 3 - 42 IU/L [facility] Comment:Document delivery by [place] on behalf of [facility] TOTAL BILIRUBIN - OUTSIDE LAB 0.4 0.1 - 1.3 MG/DL [facility] Comment:Document delivery by [place] on behalf of [facility] CALCIUM-OUTSID E LAB 8.8 8.5 - 10.6 MG/DL [facility] Comment:Document delivery by [place] on behalf of [facility] TOTAL PROTEIN - OUTSIDE LAB 5.8 5.8 - 8.0 G/DL [facility] Comment:Document delivery by [place] on behalf of [facility] ALBUMIN - OUTSIDE LAB 3.7 3.0 - 5.2 G/DL [facility] Comment:Document delivery by [place] on behalf of [facility] GLOBULIN-OUTSI DE LAB 2.1 2.0 - 3.4 G/DL [facility] Comment:Document delivery by [place] on behalf of [facility] EGFR-OUTSIDE LAB 24(L) >60 ML/MIN/1.7 3 SQM [facility] Comment:Document delivery by [place] on behalf of [facility] 04/04/2023 6:46 AM EDT Vinod Pang Jr., DO LAB BLOOD ORDERAB LES [facility] [address] [facility] [address] [place] [address] * FERRITIN (04/04/2023 6:46 AM EDT) FERRITIN-OUTSI DE LAB 50.30 22.00 - 415.0 ng/mL [facility] Comment:Document delivery by [place] on behalf of [facility] 04/04/2023 6:46 AM EDT Vinod Pang Jr., LAB BLOOD ORDERAB LES [facility] 1 [facility] [address] [place] [phone] * A1C - OUTSIDE LAB (04/04/2023 6:46 AM EDT) A1C - OUTSIDE LAB 5.70 4.70 - 6.50 % [facility] Comment: Document delivery by [place] on behalf of [facility] MEAN GLUCOSE IN mg/dL/A1c% POOR CONTROL FAIR CONTROL GOOD CONTROL EXCELLENT CONTROL 360-14 210-9 180-8 120-6 330-13 150-7 90-5 300-12 270-11 240-10 04/04/2023 6:46 AM EDT Vinod Pang Jr., DO LABORATORY Performing Organization Address City/[facility]/ZIP Co de Phone Number [facility] 1 [facility] [address] [place] [phone] * TIBC - OUTSIDE LAB (04/04/2023 6:46 AM EDT) TIBC - OUTSIDE LAB 297 260 - 400 ug/dL [facility] Comment:Document delivery by [place] on behalf of [facility] TRANSFERRIN - OUTSIDE LAB 212 200 - 400 mg/dL [facility] Comment:Document delivery by [place] on behalf of [facility] 04/04/2023 6:46 AM EDT Vinod Pang Jr., DO LABORATORY [facility] 1 [facility] [address] [place] [phone] * FRT4 - OUTSIDE LAB (04/04/2023 6:46 AM EDT) FRT4 - OUTSIDE LAB 0.79 0.75 - 1.54 ng/dL [facility] Comment:Document delivery by [place] on behalf of [facility] 04/04/2023 6:46 AM EDT Vinod Pang Jr., LABORATORY [facility] [address] [facility] [address] [place] [address] * LIPID PANEL WITHOUT DIRECT LDL (04/04/2023 6:46 AM EDT) CHOLESTEROL-Out side Lab 121 0 - 200 MG/DL [facility] Comment: Document delivery by [place] on behalf of [facility] CHOLESTEROL Less than 200mg/dl Low risk 201-239 mg/dl Borderline risk Equal to or greater 240mg/dl High risk TRIGLYCERIDES-O UTSIDE LAB 71 0 - 150 MG/DL [facility] Comment: Document delivery by [place] on behalf of [facility] TRIGLYCERIDES Less than 150mg/dl Normal 150-199mg/dl Borderline 200-499mg/dl High Greater than 500mg/dl Very High HDLD - OUTSIDE LAB 38 SEE COMMENT MG/DL [facility] Comment: Document delivery by [place] on behalf of [facility] HDL <40mg/dl Elevated Risk 41-59mg/dl Risk >=60mg/dl Least Risk LDL (DIRECT MEASURE)-OUTSID E LAB 70 0 - 130 MG/DL [facility] Comment: Document delivery by [place] on behalf of [facility] LDL <100mg/dl Optimal 100-129mg/dl Near Optimal 130-159mg/dl Borderline High 160-189mg/dl High >=190 Very High CALCULATED VLDL - OUTSIDE LAB 14.2 SEE COMMENT MG/DL [facility] Comment: Document delivery by [place] on behalf of [facility] VLDL Less than 30mg/dl Normal HDLD - OUTSIDE LAB 3.2 SEE COMMENT RATIO [facility] Comment: Document delivery by [place] on behalf of [facility] CHOL/HDL <4.0 Optimal 4.0-5.0 Borderline >6.0 High Risk NON-HDL - OUTSIDE LAB 83 SEE COMMENT MG/DL [facility] Comment: Document delivery by [place] on behalf of [facility] NON-HDL 30mg/dl higher than LDL Target 04/04/2023 6:46 AM EDT Vinod Pang Jr. DO LAB BLOOD ORDERAB LES Performing Organization Address City/[facility]/ZIP Co de Phone Number [facility] 1 [facility] [address] [place] [phone] * (ABNORMAL) IRON (04/04/2023 6:46 AM EDT) IRON - OUTSIDE LAB 33(L) 45 - 140 ug/dL [facility] Comment:Document delivery by [place] on behalf of [facility] 04/04/2023 6:46 AM EDT Vinod Pang Jr., DO LAB BLOOD ORDERAB LES Performing Organization Address [facility]/ZIP Co de Phone Number [facility] 1 [facility] [address] [place] [phone] documented in this encounter Advance Directives Latest [...] the patient have Health Care Power of Pack Changer? No Care Teams Supervisor Spring Up Relationship Specialty Start Date End Date Vinod Pang Jr., DO [address] [facility] [address] PCP - General 04/26/09 documented as of this encounter
--- OUTSIDE RECORDS SUMMARY | 2023-08-21 23:55 | External Medical Summary | Continuity of Care Document ---
Author Name Lab - [place] Address [address] [place] [address] Phone [phone] Organization [facility] er, Address [address] [place] [address] Phone [phone] Care Team Providers Care Senior Consumer Insights Consultant Name Role Phone GI - Gastroenterology Care Team Information Rece Fermín Harrell MD Care Team Information Receiv er [phone] Rory Hodge Care Team Information [employer] Traffic [employer] Equipment Repairer + [phone] Nixon Aden MD Care Team Information [employer] Traffic Control Equipment Repairer + [phone] Abran Eugene JR - Interven tional Pain Medicine Care Team Information [employer] Traffic [employer] Equipment Repairer [phone] Medardo Trinidad MD Care Team Information Receive r [phone] Sinan Marks MD Care Team Information Receive r [phone] Problems Active Problems Provider Date Chronic kidney [...] Pang JR, DO On set: 09/01/2015 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 Mcc (Cu rrent) Use Encounter Vinod Pang JR [...] Indications Order ing Provider Date Nitrofurantoin Monohyd [id number] Capsules take 1 capsule twice daily for 10 days 20caps Gisella Lisa MD, PhD 03/23/2023 Clopidogrel Hihbewdpt32ty Tablets Take One (1) Tablet By Mouth Every Day 30tabs I73.9 Vinod Pang JR, DO 08/24/2021 Citalopram Dqpfbzyrkast11fa Tablets Take One (1) Tablet By Mouth Every Day 90tabs F33.1 Vinod Pang JR, DO 06/23/2019 Jkolvxmrnql0al Tablets Take One Tablet By Mouth Once Daily 30tabs Vinod Pang JR, DO 11/12/2017 Oxycodone-Acetaminophen 7.5-325mg Tablets take one tablet every 6 h as needed pain--ongoing therapy 60tabs Vinod Pang JR, DO 01/22/2014 Atorvastatin Xphsqew56pg Tablets Take One Tablet By Mouth AT Bedtime 90tabs E78.0 Vinod Pang JR, DO E78.00 Vduytc04536Qdim/ML Solution 40,000 units monthly Unknown Albuterol Sulfate [id number](90B ase) mcg/Act Aerosol 2 puffs by mouth every 4-6 hours as needed wheezing Unknown Kctswyddxb28hk Tablets 1 by mouth twice a day 180tabs Unknown Pantoprazole Yzqnuw47fu Tabl ets DR 1 by mouth every day Unknown 000 Agqlqkm0ev Tablets 1 by mouth twice a day Unknown Bumetanide0.5mg Tablets 1 or 2 by mouth every day as needed Unknown Tamsulosin HCL0.4mg Capsules 1 by mouth every day Unknown History Medications Zybujkksct437er Tablets take 1 tab by mouth twice [...] CPT Code Status Date Vaccine Lot # [id number] Given 10/04/2022 Influenza Vaccine High Do se 0.5ML [id number] U-FLU Given 10/04/2022 Influenza,Unspecified U-FLU Given 08/11/2020 Influenza,Unspecified 08817 Given 08/11/2020 Influenza Vacci ne-Administered at another facility U-FLU Given 08/23/2019 Influenza,Unspecified 83123 Given 08/23/2019 Influenza Vacci ne-Administered at another facility 79053 Given 07/11/2018 Influenza Vac, Split, Preservative Free High Dose Age 65 & > [id number] 48334 Given 10/02/2017 Pneumococcal Conjugate-Pr evnar 13 17695 Given 10/02/2017 Influenza Vac, Split, Preservative Free High Dose Age 65 & > 35524 Given 08/14/2016 Influenza Virus Vaccine, Quadrivalent, Im Use [id number] 32223 Given 09/01/2015 Influenza Vac, Split, Preservative Free High Dose Age 65 & > [id number] 99189 Given 09/01/2015 Pneumococcal Conjugate-Pr evnar 13 [id number] 71657 Given 07/21/2014 Influenza Vac, Split, Preservative Free High Dose Age 65 & > [id number] U-FLU Given 07/21/2014 Influenza,Unspecified 23763 Given 01/31/2014 Pneumococcal Vaccine/Pneu movax 23 51781 Given 07/17/2013 Influenza Vac, Split, Preservative Free High Dose Age 65 & > [id number] 59134 Given 07/24/2012 Influenza Vac, Split, Preservative Free High Dose Age 65 & > [id number] 91102 Given 07/04/2011 Influenza Vac, Split, Preservative Free High Dose Age 65 & > [id number] 69768 Given 08/16/2010 Pneumococcal Vaccine/Pneu movax 23 [id number] 75660 Given 10/21/2009 Influenza Vac, Split 3 Yr s And Up [id number] 75002 Given 07/24/2008 Influenza Vac, Split 3 Yr s And Up U-FLU Given 07/22/2008 Influenza,Unspecified 22377 Given 10/27/2004 Influenza Vac, Split 3 Yr s And Up 90569 Given 07/22/2004 Pneumococcal Vaccine/Pneu movax 23 83568 Refused 07/26/2021 Moderna Sars-Co v-2 (Covid-19) vaccine, 100 mcg/ 0.5 mL 12Y+ [id number] Refused 09/28/2020 Tdap (Tetanus, diphtheria & acel. pertussis) Adacel or Boostrix 94056 Refused 09/28/2020 Shingrix 81950 Refused 08/19/2020 Influenza Virus Vaccine, Quadrivalent, Im Use [id number] Refused 07/11/2016 Influenza Vac, Split, Preservative Free [...] H/L [place] Laboratory test finding 04/04/2023 [facility]. [address] [place] [address] [phone] TSH <pending> FRT4 <pending> Iron Panel([employer]) 04/04/2023 [facility]. [address] [place] [address] [phone] Iron <pending> Tibc <pending> % Saturation <pending> Laboratory test finding 04/04/2023 [facility]. [address] [place] [address] [phone] Ferritin <pending> Laboratory test finding 04/04/2023 [facility]. [address] [place], [place] [id number] [phone] Tibc <pending> Urine Isolate#1 03/19/2023 [facility]. [address] [place] [address] [phone] Isolate #1 Enterococcus mar <SEE NOTE> 1 Ampicillin >8 R Ciprofloxacin >2 R Levofloxacin >4 R Linezolid <=2 S Nitrofurantoin <=32 S Penicillin >8 R Rifampim >2 R Tetracycline >8 R Vancomycin >16 R Urinalysis 03/19/2023 [facility]. [address] [place], [place] [id number] [phone] Color LIGHT-YELLOW Appearance CLEAR Clear Spec.Grav. 1.010 1.005-1.025 Leukocytes LARGE Abnormal Negative Nitrite NEGATIVE Negative PH 6.0 6.0-7.5 Protein TRACE Abnormal Negative Urine Glucose NEGATIVE Negative Ketone NEGATIVE Negative Urobilinogen NORMAL E.U./DL Normal Bilirubin NEGATIVE Negative Blood NEGATIVE Negative WBC-U TNTC /HPF Abnormal 0-5/HPF RBC-U 3-5 /HPF 0-5/HPF Bacteria 1+ Abnormal None Seen Squamous 0-2 /HPF 0-5/HPF Laboratory test finding 03/19/2023 [facility]. [address] [place] [address] [phone] BNP 904.0 pg/mL Critical high 0.0-100.0 BMP 03/19/2023 [facility]. [address] [place], [place] [id number] [phone] Glucose 132 mg/dL High 70-110 BUN 43 mg/dL High 6-25 Creatinine 3.1 mg/dL Critical high 0.7-1.3 2 Sodium 141 mEq/L 135-145 Potassium 4.0 mEq/L 3.5-5.0 Chloride 105 mEq/L 95-107 Co-2 22 mEq/L Low 24-31 Calcium 9.1 mg/dL 8.5-10.6 GFR 21 ML/MIN/1.73SQM Low >60 Laboratory test finding 03/19/2023 [facility] (In Office Test) Sars Rna QL PCR - In Office Not Detected. Urine Culture 03/19/2023 [facility]. [address] [place] [address] [phone] Urine Source URINE Total Col Count >100,000 COL/CC CBC W/Diff 03/19/2023 [facility]. [address] [place], [place] [id number] [phone] WBC 6.3 10^3/M3 3.1-9.2 RBC 3.06 10^6/M3 Low 4.00-5.80 HGB 9.0 GR/DL Low 12.5-17.5 HCT 29.4 % Low 37.5-52.5 MCV 95.8 CUMICR 82.6-95.8 MCH 29.4 PICOGR 27.9-32.9 MCHC 30.7 % Low 32.6-35.4 RDW 17.6 % High 11.4-14.6 PLT 266 10^3/M3 140-350 MPV 8.2 CUMICR 7.0-10.6 %Neut 76.3 % High 40.0-75.0 %Lymph 7.3 % Low 17.0-45.0 %Coos 8.7 % 1.0-11.0 %Eos 7.0 % High 0.0-6.0 %Baso 0.7 % 0.0-2.0 #Neut 4.8 10^3/M3 1.5-8.0 #Lymph 0.5 10^3/M3 Low 0.8-3.2 #Coos 0.5 10^3/M3 0.0-0.8 #Eos 0.4 10^3/m3 0.0-0.4 #Baso 0.0 10^3/m3 0.0-0.2 CBC No Diff 02/28/2023 [facility]. [address] [place], [place] [phone] WBC 5.9 10^3/M3 3.1-9.2 RBC 2.90 10^6/M3 Low 4.00-5.80 HGB 8.6 GR/DL Low 12.5-17.5 HCT 27.9 % Low 37.5-52.5 MCV 96.3 CUMICR High 82.6-95.8 MCH 29.6 PICOGR 27.9-32.9 MCHC 30.8 % Low 32.6-35.4 RDW 18.5 % High 11.4-14.6 PLT 238 10^3/M3 140-350 MPV 8.0 CUMICR 7.0-10.6 Laboratory test finding 02/28/2023 [facility]. [address] [place], [place] [phone] Vitd-25Oh 46 ng/mL 30-100 Renal Panel 02/28/2023 [facility]. [address] [place] [address] [phone] Glucose 96 mg/dL 70-110 3 BUN 56 mg/dL High 6-25 Creatinine 2.9 mg/dL High 0.7-1.3 Sodium 142 mEq/L 135-145 Potassium 4.4 mEq/L 3.5-5.0 Chloride 109 mEq/L High 95-107 Co-2 23 mEq/L Low 24-31 Calcium 8.4 mg/dL Low 8.5-10.6 Phosphorus 3.3 mg/dL 2.5-4.8 Albumin 3.5 g/dL 3.0-5.2 GFR 22 Low >60 Laboratory test finding 02/13/2023 [facility]. [address] [place] [address] [phone] Magnesium 2.1 mg/dL 1.7-2.8 4 BMP 02/13/2023 [facility]. [address] [place] [address] [phone] Glucose 99 mg/dL 70-110 5 BUN 59 mg/dL High 6-25 Creatinine 3.0 mg/dL High 0.7-1.3 Sodium 142 mEq/L 135-145 Potassium 3.8 mEq/L 3.5-5.0 Chloride 106 mEq/L 95-107 Co-2 27 mEq/L 24-31 Calcium 9.0 mg/dL 8.5-10.6 GFR 22 Low >60 Laboratory test finding 02/13/2023 [facility]. [address] [place] [address] [phone] BNP 490.0 pg/mL Critical high 0.0-100.0 6 H & H 02/13/2023 [facility]. [address] [place] [address] [phone] HGB 9.9 GR/DL Low 12.5-17.5 HCT 30.6 % Low 37.5-52.5 Renal Panel 02/05/2023 [facility]. [address] [place] [address] [phone] Glucose 104 mg/dL 70-110 7 BUN 42 mg/dL High 6-25 Creatinine 3.0 mg/dL High 0.7-1.3 Sodium 150 mEq/L High 135-145 Potassium 4.9 mEq/L 3.5-5.0 Chloride 114 mEq/L High 95-107 Co-2 25 mEq/L 24-31 Calcium 8.9 mg/dL 8.5-10.6 Phosphorus 3.7 mg/dL 2.5-4.8 Albumin 3.8 g/dL 3.0-5.2 GFR 22 Low >60 CBC No Diff 02/05/2023 [facility]. [address] [place] [address] [phone] WBC 5.1 10 3.1-9.2 RBC 3.28 10 Low 4.00-5.80 HGB 9.6 GR/DL Low 12.5-17.5 HCT 30.9 % Low 37.5-52.5 MCV 94.4 CUMICR 82.6-95.8 MCH 29.3 PICOGR 27.9-32.9 MCHC 31.1 % Low 32.6-35.4 RDW 17.8 % High 11.4-14.6 PLT 195 10 140-350 MPV 8.2 CUMICR 7.0-10.6 Laboratory test finding 02/05/2023 [facility]. [address] [place] [address] [phone] Vitd-25Oh 38 ng/mL 30-100 Renal Panel 11/09/2022 [facility]. [address] [place] [address] [phone] Glucose 96 mg/dL 70-110 8 BUN 50 mg/dL High 6-25 Creatinine 3.4 mg/dL Critical high 0.7-1.3 9 Sodium 141 mEq/L 135-145 Potassium 4.5 mEq/L 3.5-5.0 Chloride 108 mEq/L High 95-107 Co-2 21 mEq/L Low 24-31 Calcium 8.9 mg/dL 8.5-10.6 Phosphorus 4.3 mg/dL 2.5-4.8 Albumin 3.7 g/dL 3.0-5.2 GFR 19 Low >60 Laboratory test finding 11/09/2022 [facility]. [address] [place] [address] [phone] Ferritin 64.20 ng/mL 22.00-415.0 CBC No Diff 11/09/2022 [facility]. [address] [place] [address] [phone] WBC 7.2 10 3.1-9.2 RBC 3.66 10 Low 4.00-5.80 HGB 11.3 GR/DL Low 12.5-17.5 HCT 35.1 % Low 37.5-52.5 MCV 96.0 CUMICR High 82.6-95.8 MCH 30.9 PICOGR 27.9-32.9 MCHC 32.2 % Low 32.6-35.4 RDW 16.7 % High 11.4-14.6 PLT 243 10 140-350 MPV 7.7 CUMICR 7.0-10.6 Iron Panel([facility]) 11/09/2022 [facility]. [address] [place], [place] [address] [phone] Iron 80 g /dL 45-140 10 % Saturation 24 % Low 30-35 Tibc 11/09/2022 [facility]. [address] [place] [address] [phone] Tibc 337 g /dL 260-400 Transferrin 241 mg/dL 200-400 1 Enterococcus faecium VRE 2 CRITICAL RESULTS LUCI IFIED, FAXED, AND CALLED TO TANK JACKSON @ 12:10. 03/20/23 MH 3 REPORT FAXED TO DOCT OR, REQUESTED ON REQUISITION.03/01/23 LM 4 Please fax results t chandrika Baez PA-C [phone] F- [phone] REPORT FAXED TO DOCT OR, REQUESTED ON REQUISITION.02/14/23 LM 6 CRITICAL RESULTS LUCI IFIED, FAXED, AND CALLED TO LASHON HENRY @ 4:09. 02/13/23 MH 7 REPORT FAXED TO DOCT OR, REQUESTED ON REQUISITION. 02.06.23 ESEQUIEL 8 Fax to [phone] [facility] P: [phone] CRITICAL RESULTS LUCI IFIED, FAXED, AND CALLED TO AMANDA AT 4:50 PM ON 11/09/22 ALB 10 REPORT FAXED TO DOCT OR, REQUESTED ON REQUISITION.11/10/22 LM Procedures Date Code Description Status 04/04/2023 10399 Venipuncture Routine Complet ed 03/19/2023 55700 Venipuncture Routine Complet ed 02/28/2023 81857 Venipuncture Routine Complet ed 02/13/2023 51343 Venipuncture Routine Complet ed 01/15/2023 1111F D/C Medications Reconciled W/Current Medications In Outpt MR Completed 01/12/2023 1111F D/C Medications Reconciled W/Current Medications In Outpt MR Completed 11/09/2022 32821 Venipuncture Routine Complet ed Medical Devices Description No Information Available Encounters Type Date Location Provider Dx Diagnosis Office Visit 03/19/2023 1:00p [place] Migel Ovalle Norman, DO R06.02 Shortness of breath Office Visit 01/15/2023 11:00a [place] Pierre Costa PA-C N40.1 Benign prosta tic hyperplasia with lower urinary tract symp A41.50 Gram-negative sepsis , unspecified Assessments Date Code Description Provider 04/04/2023 N25.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 arathyroidism of renal origin Lab - [place] 04/04/2023 E78.00 Pure hypercholesterolemia, u nspecified Lab - [place] 04/04/2023 E88.81 Metabolic syndrome Lab - [facility] [place] 03/19/2023 R06.02 Shortness of breath Migel hagen, DO 02/28/2023 N17.9 Acute kidney failure, unspec ified Vinod Pang JR, DO 02/28/2023 N17.9 Acute kidney failure, unspec ified Lab - [place] 02/28/2023 E55.9 Vitamin D deficiency, unspec ified Vinod Pang JR, DO 02/28/2023 E55.9 Vitamin D deficiency, unspec ified Lab - [place] 02/28/2023 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, stag e 4 (severe) Vinod Pang JR, DO 02/28/2023 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, stag e 4 (severe) Lab - [place] 02/13/2023 I50.9 Heart failure, unspecified K dusty Pang JR, DO 02/13/2023 I50.9 Heart failure, unspecified L ab - [place] 02/13/2023 E11.21 Type 2 diabetes mellitus with diabetic nephropathy Vinod Pang JR, DO 02/05/2023 N17.9 Acute kidney failure, unspec ified Vinod Pang JR, DO 02/05/2023 N17.9 Acute kidney failure, unspec ified Lab - [place] 02/05/2023 E55.9 Vitamin D deficiency, unspec ified Vinod Pang JR, DO 02/05/2023 E55.9 Vitamin D deficiency, unspec ified Lab - [place] 02/05/2023 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, stag e 4 (severe) Vinod Pang JR, DO 02/05/2023 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, stag e 4 (severe) Lab - [place] 01/15/2023 N40.1 Benign prostatic hyperplasia with lower urinary tract symptoms JOSIE Flood-C 01/15/2023 A41.50 Gram-negative sepsis, unspec ified Pierre JOSIE Costa-C 11/09/2022 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, stag e 4 (severe) Vinod Pang JR, DO 11/09/2022 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, stag e 4 (severe) Lab - [place] 11/09/2022 D64.9 Anemia, unspecified Vinod Pang JR, DO 11/09/2022 D64.9 Anemia, unspecified Lab - [facility] Plan of Treatment Future Appointment(s):* 04/11/2023 9:00 am - Vinod Pang JR, DO at [place] 03/19/2023 - Migel Austin, DO* R06.02 Shortness [...] for Referral Status Appt Didi Silva [address] [place] [address] Dr Hunter 1 [phone]
--- OUTSIDE RECORDS SUMMARY | 2023-08-21 23:55 | External Medical Summary ---
Author Name Unknown Address Unknown Organization [facility]:[address] [place] [address] Laboratory Report Ordering Provider Test Date Status DEMETRIO GREY 04/04/2023 06:46 Final Observation Date Value Abnormality Reference (Units ) Status Glucose 04/04/2023 09:52 116 Above high normal 70-110 (MG/DL) Final BUN 04/04/2023 09:52 45 Above high normal 6-25 (MG/DL) Final Creatinine 04/04/2023 09:52 2.7 Above high normal 0.7-1.3 (MG/DL) Final Sodium 04/04/2023 09:52 144 135-145 (MEQ/L) Final Potassium 04/04/2023 09:52 4.4 3.5-5.0 (MEQ/L) Final Cl 04/04/2023 09:52 109 Above high normal 95-107 (MEQ/L) Final CO2 04/04/2023 09:52 24 24-31 (MEQ/L) Final Alk Phos 04/04/2023 09:52 53 43-122 (IU/L) Final ALT (Alanine aminotransferase) 04/04/2023 09:52 9 Below low normal 10-40 (IU/L) Final AST (Aspartate aminotransferase) 04/04/2023 09:52 11 3-42 (IU/L) Final Bilirubin, Total 04/04/2023 09:52 0.4 0.1-1.3 (MG/DL) Final Calcium 04/04/2023 09:52 8.8 8.5-10.6 (MG/DL) Final Protein 04/04/2023 09:52 5.8 5.8-8.0 (G/DL) Final Albumin 04/04/2023 09:52 3.7 3.0-5.2 (G/DL) Final GLOBULIN 04/04/2023 09:52 2.1 2.0-3.4 (G/DL) Final GFR (estimated) 04/04/2023 09:52 24 Below low normal >60 (ML/MIN/1.73 SQM) Final Performing Location [facility] [address] [place] [address]
--- OUTSIDE RECORDS SUMMARY | 2023-08-21 23:55 | External Medical Summary | Continuity of Care Document ---
Author Name Lab - [facility] Address [address] [place] [address] Phone [phone] Organization [facility] er, Address [address] [place] [address] Phone [phone] Care Team Providers Care Shank Skinner Name Role Phone GI - Gastroenterology Care Team Information Rece Fermín Harrell MD Care Team Information Receiv er [phone] Rory Hodge Care Team Information Price Analyst [phone] Nixon Aden MD Care Team Information Price Analyst [phone] Abran Eugene JR - Interven tional Pain Medicine Care Team Information Price Analyst [phone] Medardo Trinidad MD Care Team Information Receive r [phone] Sinan Marks MD Care Team Information Receive r [phone] Problems Active Problems Provider Date Chronic kidney disease stage 4 O nset: Note: Document: 02/14/19 - N ephrology Consult Essential hypertension Vinod Pang JR, DO Onset: 09/01/2015 Anemia Vinod Pang JR, DO Onset: 02/23/2009 Peripheral vascular disease Vinod Pang JR , DO Onset: 06/24/2009 Mixed hyperlipidemia Vinod Pang JR, DO On set: 09/01/2015 Pure hypercholesterolemia Vindo Pang JR DO Onset: 02/23/2009 Hypothyroidism Vinod Pang JR, DO Onset: 09/01/2015 Deep venous thrombosis of lower extremity Becki Pang JR, DO Onset: 09/01/2015 Metabolic syndrome X Vinod Pang JR, DO On set: 06/03/2012 Osteoarthritis Vinod aPng JR DO Onset: 09/01/2015 Vitamin D deficiency Vinod Pang JR, DO On set: 09/01/2015 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 Penit[facility]iary (Cu rrent) Use Encounter Vinod Pang JR [...] Indications Order ing Provider Date Nitrofurantoin Monohyd Vscag625po Capsules take 1 capsule twice daily for 10 days 20caps Gisella Lisa MD, PhD 03/23/2023 Clopidogrel Jfioxcajo52tr Tablets Take One (1) Tablet By Mouth Every Day 30tabs I73.9 Vinod Pang JR, DO 08/24/2021 Citalopram Qjbhzwzwnfqu12wd Tablets Take One (1) Tablet By Mouth Every Day 90tabs F33.1 Vinod Pang JR, DO 06/23/2019 Mdtfhyidgqy1qs Tablets Take One Tablet By Mouth Once Daily 30tabs Vinod Pang JR, DO 11/12/2017 Oxycodone-Acetaminophen 7.5-325mg Tablets take one tablet every 6 h as needed pain--ongoing therapy 60tabs Vinod Pang JR, DO 01/22/2014 Atorvastatin Uaamlxo92sb Tablets Take One Tablet By Mouth AT Bedtime 90tabs E78.0 Vinod Pang JR, DO E78.00 Oipjro34801Xbig/ML Solution 40,000 units monthly Unknown Albuterol Sulfate DRD104(90B ase) mcg/Act Aerosol 2 puffs by mouth every 4-6 hours as needed wheezing Unknown Rxwkxszhpt86kt Tablets 1 by mouth twice a day 180tabs Unknown Pantoprazole Wbmsjo81ys Tabl ets DR 1 by mouth every day Unknown 000 Elzstfq9yj Tablets 1 by mouth twice a day Unknown Bumetanide0.5mg Tablets 1 or 2 by mouth every day as needed Unknown Tamsulosin HCL0.4mg Capsules 1 by mouth every day Unknown History Medications Rkmtrdghfu479dd Tablets take 1 tab by mouth twice [...] CPT Code Status Date Vaccine Lot # [id number] Given 10/04/2022 Influenza Vaccine High Do se 0.5ML [id number] U-FLU Given 10/04/2022 Influenza,Unspecified U-FLU Given 08/11/2020 Influenza,Unspecified 42907 Given 08/11/2020 Influenza Vacci ne-Administered at another facility U-FLU Given 08/23/2019 Influenza,Unspecified 06205 Given 08/23/2019 Influenza Vacci ne-Administered at another facility 47939 Given 07/11/2018 Influenza Vac, Split, Preservative Free High Dose Age 65 & > [id number] 88638 Given 10/02/2017 Pneumococcal Conjugate-Pr evnar 13 97557 Given 10/02/2017 Influenza Vac, Split, Preservative Free High Dose Age 65 & > [id number] Given 08/14/2016 Influenza Virus Vaccine, Quadrivalent, Im Use [id number] 93914 Given 09/01/2015 Influenza Vac, Split, Preservative Free High Dose Age 65 & > [id number] 86495 Given 09/01/2015 Pneumococcal Conjugate-Pr evnar 13 [id number] 56929 Given 07/21/2014 Influenza Vac, Split, Preservative Free High Dose Age 65 & > [id number] U-FLU Given 07/21/2014 Influenza,Unspecified 74923 Given 01/31/2014 Pneumococcal Vaccine/Pneu movax 23 63361 Given 07/17/2013 Influenza Vac, Split, Preservative Free High Dose Age 65 & > [id number] 21778 Given 07/24/2012 Influenza Vac, Split, Preservative Free High Dose Age 65 & > [id number] 44745 Given 07/04/2011 Influenza Vac, Split, Preservative Free High Dose Age 65 & > [id number] 03969 Given 08/16/2010 Pneumococcal Vaccine/Pneu movax 23 [id number] 93754 Given 10/21/2009 Influenza Vac, Split 3 Yr s And Up [id number] 59788 Given 07/24/2008 Influenza Vac, Split 3 Yr s And Up U-FLU Given 07/22/2008 Influenza,Unspecified 13652 Given 10/27/2004 Influenza Vac, Split 3 Yr s And Up 56596 Given 07/22/2004 Pneumococcal Vaccine/Pneu movax 23 55097 Refused 07/26/2021 Moderna Sars-Co v-2 (Covid-19) vaccine, 100 mcg/ 0.5 mL 12Y+ [id number] Refused 09/28/2020 Tdap (Tetanus, diphtheria & acel. pertussis) Adacel or Boostrix 55582 Refused 09/28/2020 Shingrix 07247 Refused 08/19/2020 Influenza Virus Vaccine, Quadrivalent, Im Use [id number] Refused 07/11/2016 Influenza Vac, Split, Preservative Free [...] Result H/L Range N ote Lipid 04/04/2023 [facility] [address] [place], [place] [address]47[address] [phone] Cholesterol 121 mg/dL 0-200 1 Triglyceride 71 mg/dL 0-150 2 HDLD 38 mg/dL See Comment 3 Measured LDL 70 mg/dL 0-130 4 Calc VLDL 14.2 mg/dL See Comment 5 Chol/HDL 3.2 RATIO See Comment 6 Non-HDL 83 mg/dL See Comment 7 CBC W/Diff 04/04/2023 [facility] [address] [place], [place] [phone] WBC 6.1 10^3/M3 3.1-9.2 RBC 3.34 10^6/M3 Low 4.00-5.80 HGB 9.4 GR/DL Low 12.5-17.5 HCT 29.3 % Low 37.5-52.5 MCV 88.0 CUMICR 82.6-95.8 MCH 28.3 PICOGR 27.9-32.9 MCHC 32.2 % Low 32.6-35.4 RDW 16.5 % High 11.4-14.6 PLT 285 10^3/M3 140-350 MPV 7.9 CUMICR 7.0-10.6 %Neut 68.7 % 40.0-75.0 %Lymph 7.8 % Low 17.0-45.0 %King 9.3 % 1.0-11.0 %Eos 13.1 % High 0.0-6.0 %Baso 1.1 % 0.0-2.0 #Neut 4.2 10^3/M3 1.5-8.0 #Lymph 0.5 10^3/M3 Low 0.8-3.2 #King 0.6 10^3/M3 0.0-0.8 #Eos 0.8 10^3/m3 High 0.0-0.4 #Baso 0.1 10^3/m3 0.0-0.2 Laboratory test finding 04/04/2023 [facility] [address] [place] [address] [phone] TSH 2.51 uIU/mL 0.50-6.00 FRT4 0.79 ng/dL 0.75-1.54 Iron Panel([facility]) 04/04/2023 [facility] [address] [place] [address] [phone] Iron 33 g /dL Low 45-140 % Saturation 11 % Low 30-35 Tibc 04/04/2023 [facility] [address] [place] [address] [phone] Tibc 297 g /dL 260-400 Transferrin 212 mg/dL 200-400 Laboratory test finding 04/04/2023 [facility] [address] [place] [address] [phone] Ferritin 50.30 ng/mL 22.00-415.0 Hba1c 04/04/2023 [facility] [address] [place], [place] [phone] A1c 5.70 % 4.70-6.50 8 Comp. Met 04/04/2023 [facility] [address] [place] [address] [phone] Glucose 116 mg/dL High 70-110 BUN 45 [...] 24 ML/MIN/1.73SQM Low >60 Urine Isolate#1 03/19/2023 [facility] [address] [place] [address] [phone] Isolate #1 Enterococcus mar <SEE NOTE> 9 Ampicillin >8 R Ciprofloxacin >2 R Levofloxacin >4 R Linezolid <=2 S Nitrofurantoin <=32 S Penicillin >8 R Rifampim >2 R Tetracycline >8 R Vancomycin >16 R Urinalysis 03/19/2023 [facility] [address] [place] [address] [phone] Color LIGHT-YELLOW Appearance CLEAR Clear Spec.Grav. 1.010 1.005-1.025 Leukocytes LARGE Abnormal Negative Nitrite NEGATIVE Negative PH 6.0 6.0-7.5 Protein TRACE Abnormal Negative Urine Glucose NEGATIVE Negative Ketone NEGATIVE Negative Urobilinogen NORMAL E.U./DL Normal Bilirubin NEGATIVE Negative Blood NEGATIVE Negative WBC-U TNTC /HPF Abnormal 0-5/HPF RBC-U 3-5 /HPF 0-5/HPF Bacteria 1+ Abnormal None Seen Squamous 0-2 /HPF 0-5/HPF Laboratory test finding 03/19/2023 [facility] [address] [place], [place] [phone] BNP 904.0 pg/mL Critical high 0.0-100.0 BMP 03/19/2023 [facility] [address] [place] [address] [phone] Glucose 132 mg/dL High 70-110 BUN 43 mg/dL High 6-25 Creatinine 3.1 mg/dL Critical high 0.7-1.3 10 Sodium 141 mEq/L 135-145 Potassium 4.0 mEq/L 3.5-5.0 Chloride 105 mEq/L 95-107 Co-2 22 mEq/L Low 24-31 Calcium 9.1 mg/dL 8.5-10.6 GFR 21 ML/MIN/1.73SQM Low >60 Laboratory test finding 03/19/2023 [facility] (In Office Test) Sars Rna QL PCR - In Office Not Detected. Urine Culture 03/19/2023 [facility] [address] [place] [address] [phone] Urine Source URINE Total Col Count >100,000 COL/CC CBC W/Diff 03/19/2023 [facility] [address] [place], [place] [phone] [phone] WBC 6.3 10^3/M3 3.1-9.2 RBC 3.06 10^6/M3 Low 4.00-5.80 HGB 9.0 GR/DL Low 12.5-17.5 HCT 29.4 % Low 37.5-52.5 MCV 95.8 CUMICR 82.6-95.8 MCH 29.4 PICOGR 27.9-32.9 MCHC 30.7 % Low 32.6-35.4 RDW 17.6 % High 11.4-14.6 PLT 266 10^3/M3 140-350 MPV 8.2 CUMICR 7.0-10.6 %Neut 76.3 % High 40.0-75.0 %Lymph 7.3 % Low 17.0-45.0 %King 8.7 % 1.0-11.0 %Eos 7.0 % High 0.0-6.0 %Baso 0.7 % 0.0-2.0 #Neut 4.8 10^3/M3 1.5-8.0 #Lymph 0.5 10^3/M3 Low 0.8-3.2 #King 0.5 10^3/M3 0.0-0.8 #Eos 0.4 10^3/m3 0.0-0.4 #Baso 0.0 10^3/m3 0.0-0.2 CBC No Diff 02/28/2023 [facility] [address] [place] [address] [phone] WBC 5.9 10^3/M3 3.1-9.2 RBC 2.90 10^6/M3 Low 4.00-5.80 HGB 8.6 GR/DL Low 12.5-17.5 HCT 27.9 % Low 37.5-52.5 MCV 96.3 CUMICR High 82.6-95.8 MCH 29.6 PICOGR 27.9-32.9 MCHC 30.8 % Low 32.6-35.4 RDW 18.5 % High 11.4-14.6 PLT 238 10^3/M3 140-350 MPV 8.0 CUMICR 7.0-10.6 Laboratory test finding 02/28/2023 [facility] [address] [place] [address] [phone] Vitd-25Oh 46 ng/mL 30-100 Renal Panel 02/28/2023 [facility] [address] [place] [address] [phone] Glucose 96 mg/dL 70-110 11 BUN 56 mg/dL High 6-25 Creatinine 2.9 mg/dL High 0.7-1.3 Sodium 142 mEq/L 135-145 Potassium 4.4 mEq/L 3.5-5.0 Chloride 109 mEq/L High 95-107 Co-2 23 mEq/L Low 24-31 Calcium 8.4 mg/dL Low 8.5-10.6 Phosphorus 3.3 mg/dL 2.5-4.8 Albumin 3.5 g/dL 3.0-5.2 GFR 22 Low >60 Laboratory test finding 02/13/2023 [facility] [address] [place] [address] [phone] Magnesium 2.1 mg/dL 1.7-2.8 12 BMP 02/13/2023 [facility] [address] [place] [address] [phone] Glucose 99 mg/dL 70-110 13 BUN 59 mg/dL High 6-25 Creatinine 3.0 mg/dL High 0.7-1.3 Sodium 142 mEq/L 135-145 Potassium 3.8 mEq/L 3.5-5.0 Chloride 106 mEq/L 95-107 Co-2 27 mEq/L 24-31 Calcium 9.0 mg/dL 8.5-10.6 GFR 22 Low >60 Laboratory test finding 02/13/2023 [facility] [address] [place] [address] [phone] BNP 490.0 pg/mL Critical high 0.0-100.0 14 H & H 02/13/2023 [facility] [address] [place] [address] [phone] HGB 9.9 GR/DL Low 12.5-17.5 HCT 30.6 % Low 37.5-52.5 Renal Panel 02/05/2023 [facility] [address] [place] [address] [phone] Glucose 104 mg/dL 70-110 15 BUN 42 mg/dL High 6-25 Creatinine 3.0 mg/dL High 0.7-1.3 Sodium 150 mEq/L High 135-145 Potassium 4.9 mEq/L 3.5-5.0 Chloride 114 mEq/L High 95-107 Co-2 25 mEq/L 24-31 Calcium 8.9 mg/dL 8.5-10.6 Phosphorus 3.7 mg/dL 2.5-4.8 Albumin 3.8 g/dL 3.0-5.2 GFR 22 Low >60 CBC No Diff 02/05/2023 [facility] [address] [place] [address] [phone] WBC 5.1 10 3.1-9.2 RBC 3.28 10 Low 4.00-5.80 HGB 9.6 GR/DL Low 12.5-17.5 HCT 30.9 % Low 37.5-52.5 MCV 94.4 CUMICR 82.6-95.8 MCH 29.3 PICOGR 27.9-32.9 MCHC 31.1 % Low 32.6-35.4 RDW 17.8 % High 11.4-14.6 PLT 195 10 140-350 MPV 8.2 CUMICR 7.0-10.6 Laboratory test finding 02/05/2023 [facility] [address] [place] [address] [phone] Vitd-25Oh 38 ng/mL 30-100 Renal Panel 11/09/2022 [facility] [address] [place], [place] [address] [phone] Glucose 96 mg/dL 70-110 16 BUN 50 mg/dL High 6-25 Creatinine 3.4 mg/dL Critical high 0.7-1.3 17 Sodium 141 mEq/L 135-145 Potassium 4.5 mEq/L 3.5-5.0 Chloride 108 mEq/L High 95-107 Co-2 21 mEq/L Low 24-31 Calcium 8.9 mg/dL 8.5-10.6 Phosphorus 4.3 mg/dL 2.5-4.8 Albumin 3.7 g/dL 3.0-5.2 GFR 19 Low >60 Laboratory test finding 11/09/2022 [facility] [address] [place] [address] [phone] Ferritin 64.20 ng/mL 22.00-415.0 CBC No Diff 11/09/2022 [facility] [address] [place] [address] [phone] WBC 7.2 10 3.1-9.2 RBC 3.66 10 Low 4.00-5.80 HGB 11.3 GR/DL Low 12.5-17.5 HCT 35.1 % Low 37.5-52.5 MCV 96.0 CUMICR High 82.6-95.8 MCH 30.9 PICOGR 27.9-32.9 MCHC 32.2 % Low 32.6-35.4 RDW 16.7 % High 11.4-14.6 PLT 243 10 140-350 MPV 7.7 CUMICR 7.0-10.6 Iron Panel([facility]) 11/09/2022 [facility] [address] [place], [place] [address] [phone] Iron 80 g /dL 45-140 18 % Saturation 24 % Low 30-35 Tibc 11/09/2022 [facility] [address] [place], [place] [address] [phone] Tibc 337 g /dL 260-400 Transferrin 241 [...] Please fax results t chandrika Baez PA-C [phone] F- [phone] REPORT FAXED TO DOCT OR, REQUESTED ON REQUISITION.02/14/23 LM 14 CRITICAL RESULTS LUCI IFIED, FAXED, AND CALLED TO LASHON HENRY @ 4:09. 02/13/23 MH 15 REPORT FAXED TO DOCT OR, REQUESTED ON REQUISITION. 02.06.23 ESEQUIEL 16 Fax to [phone] [facility] P: [phone] CRITICAL RESULTS LUCI IFIED, FAXED, AND CALLED TO AMANDA AT 4:50 PM ON 11/09/22 ALB 18 REPORT FAXED TO DOCT OR, REQUESTED ON REQUISITION.11/10/22 LM Procedures Date Code Description Status 04/04/2023 76343 Venipuncture Routine Complet ed 03/19/2023 76061 Venipuncture Routine Complet ed 02/28/2023 83064 Venipuncture Routine Complet ed 02/13/2023 47284 Venipuncture Routine Complet ed 01/15/2023 1111F D/C Medications Reconciled W/Current Medications In Outpt MR Completed 01/12/2023 1111F D/C Medications Reconciled W/Current Medications In Outpt MR Completed 11/09/2022 78848 Venipuncture Routine Complet ed Medical Devices Description No Information Available Encounters Type Date Location Provider Dx Diagnosis Office Visit 03/19/2023 1:00p [facility] Migel Ovalle Stephanieagatha, DO R06.02 Shortness of breath Office Visit 01/15/2023 11:00a [facility] Pierre Costa PA-C N40.1 Benign prosta tic hyperplasia with lower urinary tract symp A41.50 Gram-negative sepsis , unspecified Assessments Date Code Description Provider 04/04/2023 N25.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 arathyroidism of renal origin [facility] - [facility] 04/04/2023 E78.00 Pure hypercholesterolemia, u nspecified [facility] - [facility] 04/04/2023 E88.81 Metabolic syndrome Lab - [facility] 03/19/2023 R06.02 Shortness of breath Migel hagen, DO 02/28/2023 N17.9 Acute kidney failure, unspec ified Vinod Pang JR, DO 02/28/2023 N17.9 Acute kidney failure, unspec ified [facility] - [facility] 02/28/2023 E55.9 Vitamin D deficiency, unspec ified Vinod Pang JR, DO 02/28/2023 E55.9 Vitamin D deficiency, unspec ified Lab - [facility] 02/28/2023 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, stag e 4 (severe) Vinod Pang JR, DO 02/28/2023 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, stag e 4 (severe) [facility] - [facility] 02/13/2023 I50.9 Heart failure, unspecified K dusty Pang JR, DO 02/13/2023 I50.9 Heart failure, unspecified L ab - [facility] 02/13/2023 E11.21 Type 2 diabetes mellitus with diabetic nephropathy Vinod Pang JR, DO 02/05/2023 N17.9 Acute kidney failure, unspec ified Vinod Pang JR, DO 02/05/2023 N17.9 Acute kidney failure, unspec ified Lab - [facility] 02/05/2023 E55.9 Vitamin D deficiency, unspec ified Vinod Ben Pang JR, DO 02/05/2023 E55.9 Vitamin D deficiency, unspec ified Lab - [facility] 02/05/2023 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, stag e 4 (severe) Vinod Pang JR, DO 02/05/2023 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, stag e 4 (severe) [facility] - [facility] 01/15/2023 N40.1 Benign prostatic hyperplasia with lower urinary tract symptoms Pierre Costa PA-C 01/15/2023 A41.50 Gram-negative sepsis, unspec ified Pierre Costa PA-C 11/09/2022 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, stag e 4 (severe) Vinod Pang JR, DO 11/09/2022 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, stag e 4 (severe) [facility] - [facility] 11/09/2022 D64.9 Anemia, unspecified Vinod Pang JR, DO 11/09/2022 D64.9 Anemia, unspecified [facility] - [facility] Plan of Treatment Future Appointment(s):* 04/11/2023 9:00 am - Vinod Pang JR, DO at [facility] 03/19/2023 - Migel Austin, DO* R06.02 Shortness [...] for Referral Status Appt Didi Silva [address] [place] [address] Dr Hunter 1 [phone]
--- OUTSIDE RECORDS SUMMARY | 2023-08-21 23:55 | External Medical Summary ---
Author Name Unknown Address Unknown Organization K1C:[facility] [address] [place] [address] Laboratory Report Ordering Provider Test Date Status DEMETRIO GREY 04/04/2023 06:46 Final Observation Date Value Abnormality Reference (Units ) Status T4, Free 04/04/2023 09:59 0.79 0.75-1.54 (ng /dL) Final Performing Location [facility] [address] [place] [address]
--- OUTSIDE RECORDS SUMMARY | 2023-08-21 23:55 | External Medical Summary ---
Author Name Unknown Address Unknown Organization K1C:[facility] [address] [place] [address] Laboratory Report Ordering Provider Test Date Status DEMETRIO GREY 04/04/2023 06:46 Final Observation Date Value Abnormality Reference (Units ) Status Iron-binding capacity 04/04/2023 13:57 297 2 60-400 (ug/dL) Final Transferrin 04/04/2023 13:57 212 200-400 (mg /dL) Final Performing Location [facility] [address] [place] [address]
--- OUTSIDE RECORDS SUMMARY | 2023-08-21 23:55 | External Medical Summary ---
Author Name Unknown Address Unknown Organization [facility]:[address] [place] [address] Laboratory Report Ordering Provider Test Date Status DEMETRIO GREY 04/04/2023 06:46 Final Observation Date Value Abnormality Reference (Units ) Status WBC 04/04/2023 09:28 6.1 3.1-9.2 (10^3/M3) Final RBC 04/04/2023 09:28 3.34 Below low normal 4.00-5.80 (10^6/M3) Final Hemoglobin 04/04/2023 09:28 9.4 Below low normal 12.5-17.5 (GR/DL) Final HCT 04/04/2023 09:28 29.3 Below low normal 37.5-52.5 (%) Final MCV 04/04/2023 09:28 88.0 82.6-95.8 (CU MICR) Final MCH 04/04/2023 09:28 28.3 27.9-32.9 (AJ GR) Final MCHC 04/04/2023 09:28 32.2 Below low normal 32.6-35.4 (%) Final RDW 04/04/2023 09:28 16.5 Above high normal 11.4-14.6 (%) Final PLT 04/04/2023 09:28 285 140-350 (10^3/M3) Final MPV 04/04/2023 09:28 7.9 7.0-10.6 (CU MICR) Final Neutrophils/100 leukocytes in Blood 04/04/2023 09:28 68.7 40.0-75.0 (%) Final Lymphs % 04/04/2023 09:28 7.8 Below low normal 17.0-45.0 (%) Final Monos 04/04/2023 09:28 9.3 1.0-11.0 (%) Final %EOS 04/04/2023 09:28 13.1 Above high normal 0.0-6.0 (%) Final Basos 04/04/2023 09:28 1.1 0.0-2.0 (%) Final Neutrophils [#/volume] in [place] by Manual count 04/04/2023 09:28 4.2 1.5-8.0 (10^3/M3) Final Lymphs % 04/04/2023 09:28 0.5 Below low normal 0.8-3.2 (10^3/M3) Final Monos 04/04/2023 09:28 0.6 0.0-0.8 (10^3/M3) Final #EOS 04/04/2023 09:28 0.8 Above high normal 0.0-0.4 (10^3/m3) Final #BASO 04/04/2023 09:28 0.1 0.0-0.2 (10^3/m3) Final Performing Location [facility] [address] [place] [address]
--- OUTSIDE RECORDS SUMMARY | 2023-08-21 23:55 | External Medical Summary | Continuity of Care Document ---
Author Name [facility] - [facility] Address [address] [place] [address] Phone [phone] Organization [facility] er, Address [address] [place] [address] Phone [phone] Care Team Providers Care Formula Checker Name Role Phone GI - Gastroenterology Care Team Information Rece Fermín Harrell MD Care Team Information Receiv er [phone] Rory Hodge Care Team Information Figure Model [phone] Nixon Aden MD Care Team Information Figure Model [phone] Abran Eugene JR - Interven tional Pain Medicine Care Team Information Figure Model [phone] Medardo Trinidad MD Care Team Information Receive r [phone] Sinan Marks MD Care Team Information Receive r [phone] Problems Active Problems Provider Date Chronic kidney [...] Pang JR, DO On set: 09/01/2015 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 Usp (Cu rrent) Use Encounter Vinod Pang JR [...] Indications Order ing Provider Date Nitrofurantoin Monohyd [id number] Capsules take 1 capsule twice daily for 10 days 20caps Gisella Lisa MD, PhD 03/23/2023 Clopidogrel Lqtnchrht52at Tablets Take One (1) Tablet By Mouth Every Day 30tabs I73.9 Vinod Pang JR, DO 08/24/2021 Citalopram Jurgiondrixe58ch Tablets Take One (1) Tablet By Mouth Every Day 90tabs F33.1 Vinod Pang JR, DO 06/23/2019 Jsjpbkfaybx1mp Tablets Take One Tablet By Mouth Once Daily 30tabs Vinod Pang JR, DO 11/12/2017 Oxycodone-Acetaminophen 7.5-325mg Tablets take one tablet every 6 h as needed pain--ongoing therapy 60tabs Vinod Pang JR, DO 01/22/2014 Atorvastatin Eukfkxu46uz Tablets Take One Tablet By Mouth AT Bedtime 90tabs E78.0 Vinod Pang JR, DO E78.00 Ydajoj84504Xxfc/ML Solution 40,000 units monthly Unknown Albuterol Sulfate PFC638(90B ase) mcg/Act Aerosol 2 puffs by mouth every 4-6 hours as needed wheezing Unknown Jbxpbnmqqw41vk Tablets 1 by mouth twice a day 180tabs Unknown Pantoprazole Dlbsqd30gy Tabl ets DR 1 by mouth every day Unknown 000 Xjrlunc1ju Tablets 1 by mouth twice a day Unknown Bumetanide0.5mg Tablets 1 or 2 by mouth every day as needed Unknown Tamsulosin HCL0.4mg Capsules 1 by mouth every day Unknown History Medications Cdysjhofie628xd Tablets take 1 tab by mouth twice [...] CPT Code Status Date Vaccine Lot # [id number] Given 10/04/2022 Influenza Vaccine High Do se 0.5ML [id number] U-FLU Given 10/04/2022 Influenza,Unspecified U-FLU Given 08/11/2020 Influenza,Unspecified 79274 Given 08/11/2020 Influenza Vacci ne-Administered at another facility U-FLU Given 08/23/2019 Influenza,Unspecified 13572 Given 08/23/2019 Influenza Vacci ne-Administered at another facility 03906 Given 07/11/2018 Influenza Vac, Split, Preservative Free High Dose Age 65 & > [id number] 17761 Given 10/02/2017 Pneumococcal Conjugate-Pr evnar 13 81842 Given 10/02/2017 Influenza Vac, Split, Preservative Free High Dose Age 65 & > [id number] Given 08/14/2016 Influenza Virus Vaccine, Quadrivalent, Im Use [id number] 70997 Given 09/01/2015 Influenza Vac, Split, Preservative Free High Dose Age 65 & > [id number] 33219 Given 09/01/2015 Pneumococcal Conjugate-Pr evnar 13 [id number] 89204 Given 07/21/2014 Influenza Vac, Split, Preservative Free High Dose Age 65 & > [id number] U-FLU Given 07/21/2014 Influenza,Unspecified 92500 Given 01/31/2014 Pneumococcal Vaccine/Pneu movax 23 35574 Given 07/17/2013 Influenza Vac, Split, Preservative Free High Dose Age 65 & > [id number] 38077 Given 07/24/2012 Influenza Vac, Split, Preservative Free High Dose Age 65 & > [id number] 85186 Given 07/04/2011 Influenza Vac, Split, Preservative Free High Dose Age 65 & > [id number] 07714 Given 08/16/2010 Pneumococcal Vaccine/Pneu movax 23 [id number] 13635 Given 10/21/2009 Influenza Vac, Split 3 Yr s And Up [id number] 12559 Given 07/24/2008 Influenza Vac, Split 3 Yr s And Up U-FLU Given 07/22/2008 Influenza,Unspecified 49191 Given 10/27/2004 Influenza Vac, Split 3 Yr s And Up 67103 Given 07/22/2004 Pneumococcal Vaccine/Pneu movax 23 [id number] Refused 07/26/2021 Moderna Sars-Co v-2 (Covid-19) vaccine, 100 mcg/ 0.5 mL 12Y+ [id number] Refused 09/28/2020 Tdap (Tetanus, diphtheria & acel. pertussis) Adacel or Boostrix 05635 Refused 09/28/2020 Shingrix 04192 Refused 08/19/2020 Influenza Virus Vaccine, Quadrivalent, Im Use [id number] Refused 07/11/2016 Influenza Vac, Split, Preservative Free [...] Facility Test Result H/L Range N ote Urine Culture 03/19/2023 [facility]. [address] [place] [address] [phone] Urine Source URINE Total Col Count >100,000 COL/CC Laboratory test finding 03/19/2023 [facility]. [address] [place] [address] [phone] BNP 904.0 pg/mL Critical high 0.0-100.0 BMP 03/19/2023 [facility]. [address], [place] [id number] [phone] Glucose 132 mg/dL High 70-110 BUN 43 mg/dL High 6-25 Creatinine 3.1 mg/dL Critical high 0.7-1.3 1 Sodium 141 mEq/L 135-145 Potassium 4.0 mEq/L 3.5-5.0 Chloride 105 mEq/L 95-107 Co-2 22 mEq/L Low 24-31 Calcium 9.1 mg/dL 8.5-10.6 GFR 21 ML/MIN/1.73SQM Low >60 Laboratory test finding 03/19/2023 [facility] (In Office Test) Sars Rna QL PCR - In Office Not Detected. Urinalysis 03/19/2023 [facility]. [address] [place], [place] [id number] [phone] Color LIGHT-YELLOW Appearance CLEAR Clear Spec.Grav. 1.010 1.005-1.025 Leukocytes LARGE Abnormal Negative Nitrite NEGATIVE Negative PH 6.0 6.0-7.5 Protein TRACE Abnormal Negative Urine Glucose NEGATIVE Negative Ketone NEGATIVE Negative Urobilinogen NORMAL E.U./DL Normal Bilirubin NEGATIVE Negative Blood NEGATIVE Negative WBC-U TNTC /HPF Abnormal 0-5/HPF RBC-U 3-5 /HPF 0-5/HPF Bacteria 1+ Abnormal None Seen Squamous 0-2 /HPF 0-5/HPF Urine Isolate#1 03/19/2023 [facility]. [address] [place] [address] [phone] Isolate #1 Enterococcus mar <SEE NOTE> 2 Ampicillin >8 R Ciprofloxacin >2 R Levofloxacin >4 R Linezolid <=2 S Nitrofurantoin <=32 S Penicillin >8 R Rifampim >2 R Tetracycline >8 R Vancomycin >16 R CBC W/Diff 03/19/2023 [facility]. [address] [place] [address] [phone] WBC 6.3 10^3/M3 3.1-9.2 RBC 3.06 10^6/M3 Low 4.00-5.80 HGB 9.0 GR/DL Low 12.5-17.5 HCT 29.4 % Low 37.5-52.5 MCV 95.8 CUMICR 82.6-95.8 MCH 29.4 PICOGR 27.9-32.9 MCHC 30.7 % Low 32.6-35.4 RDW 17.6 % High 11.4-14.6 PLT 266 10^3/M3 140-350 MPV 8.2 CUMICR 7.0-10.6 %Neut 76.3 % High 40.0-75.0 %Lymph 7.3 % Low 17.0-45.0 %Acadia 8.7 % 1.0-11.0 %Eos 7.0 % High 0.0-6.0 %Baso 0.7 % 0.0-2.0 #Neut 4.8 10^3/M3 1.5-8.0 #Lymph 0.5 10^3/M3 Low 0.8-3.2 #Acadia 0.5 10^3/M3 0.0-0.8 #Eos 0.4 10^3/m3 0.0-0.4 #Baso 0.0 10^3/m3 0.0-0.2 Renal Panel 02/28/2023 [facility]. [address] [place] [address] [phone] Glucose 96 mg/dL 70-110 3 BUN 56 mg/dL High 6-25 Creatinine 2.9 mg/dL High 0.7-1.3 Sodium 142 mEq/L 135-145 Potassium 4.4 mEq/L 3.5-5.0 Chloride 109 mEq/L High 95-107 Co-2 23 mEq/L Low 24-31 Calcium 8.4 mg/dL Low 8.5-10.6 Phosphorus 3.3 mg/dL 2.5-4.8 Albumin 3.5 g/dL 3.0-5.2 GFR 22 Low >60 Laboratory test finding 02/28/2023 [facility] [place] [address] [phone] Vitd-25Oh 46 ng/mL 30-100 CBC No Diff 02/28/2023 [facility]. [address] [place] [address] [phone] WBC 5.9 10^3/M3 3.1-9.2 RBC 2.90 10^6/M3 Low 4.00-5.80 HGB 8.6 GR/DL Low 12.5-17.5 HCT 27.9 % Low 37.5-52.5 MCV 96.3 CUMICR High 82.6-95.8 MCH 29.6 PICOGR 27.9-32.9 MCHC 30.8 % Low 32.6-35.4 RDW 18.5 % High 11.4-14.6 PLT 238 10^3/M3 140-350 MPV 8.0 CUMICR 7.0-10.6 Laboratory test finding 02/13/2023 [facility] [place] [address] [phone] Magnesium 2.1 mg/dL 1.7-2.8 4 H & H 02/13/2023 [facility]. [address], [place] [phone] HGB 9.9 GR/DL Low 12.5-17.5 HCT 30.6 % Low 37.5-52.5 Laboratory test finding 02/13/2023 [facility] [place] [address] [phone] BNP 490.0 pg/mL Critical high 0.0-100.0 5 BMP 02/13/2023 [facility] [place] [address] [phone] Glucose 99 mg/dL 70-110 6 BUN 59 mg/dL High 6-25 Creatinine 3.0 mg/dL High 0.7-1.3 Sodium 142 mEq/L 135-145 Potassium 3.8 mEq/L 3.5-5.0 Chloride 106 mEq/L 95-107 Co-2 27 mEq/L 24-31 Calcium 9.0 mg/dL 8.5-10.6 GFR 22 Low >60 Renal Panel 02/05/2023 [facility]. [address] [place] [address] [phone] Glucose 104 mg/dL 70-110 7 BUN 42 mg/dL High 6-25 Creatinine 3.0 mg/dL High 0.7-1.3 Sodium 150 mEq/L High 135-145 Potassium 4.9 mEq/L 3.5-5.0 Chloride 114 mEq/L High 95-107 Co-2 25 mEq/L 24-31 Calcium 8.9 mg/dL 8.5-10.6 Phosphorus 3.7 mg/dL 2.5-4.8 Albumin 3.8 g/dL 3.0-5.2 GFR 22 Low >60 Laboratory test finding 02/05/2023 [facility] [place] [address] [phone] Vitd-25Oh 38 ng/mL 30-100 CBC No Diff 02/05/2023 [facility]. [address] [place] [address] [phone] WBC 5.1 10 3.1-9.2 RBC 3.28 10 Low 4.00-5.80 HGB 9.6 GR/DL Low 12.5-17.5 HCT 30.9 % Low 37.5-52.5 MCV 94.4 CUMICR 82.6-95.8 MCH 29.3 PICOGR 27.9-32.9 MCHC 31.1 % Low 32.6-35.4 RDW 17.8 % High 11.4-14.6 PLT 195 10 140-350 MPV 8.2 CUMICR 7.0-10.6 Renal Panel 11/09/2022 [facility]. [address] [place] [address] [phone] Glucose 96 mg/dL 70-110 8 BUN 50 mg/dL High 6-25 Creatinine 3.4 mg/dL Critical high 0.7-1.3 9 Sodium 141 mEq/L 135-145 Potassium 4.5 mEq/L 3.5-5.0 Chloride 108 mEq/L High 95-107 Co-2 21 mEq/L Low 24-31 Calcium 8.9 mg/dL 8.5-10.6 Phosphorus 4.3 mg/dL 2.5-4.8 Albumin 3.7 g/dL 3.0-5.2 GFR 19 Low >60 Laboratory test finding 11/09/2022 [facility] [address] [place] [address] [phone] Ferritin 64.20 ng/mL 22.00-415.0 CBC No Diff 11/09/2022 [facility]. [address] [place] [address] [phone] WBC 7.2 10 3.1-9.2 RBC 3.66 10 Low 4.00-5.80 HGB 11.3 GR/DL Low 12.5-17.5 HCT 35.1 % Low 37.5-52.5 MCV 96.0 CUMICR High 82.6-95.8 MCH 30.9 PICOGR 27.9-32.9 MCHC 32.2 % Low 32.6-35.4 RDW 16.7 % High 11.4-14.6 PLT 243 10 140-350 MPV 7.7 CUMICR 7.0-10.6 Iron Panel([employer]) 11/09/2022 [facility]. [address] [place] [address] [phone] Iron 80 g /dL 45-140 10 % Saturation 24 % Low 30-35 Tibc 11/09/2022 [facility]. [address] [place], [place] [phone] Tibc 337 g /dL 260-400 Transferrin 241 mg/dL 200-400 Comp. Met 10/03/2022 [facility]. [address] [place], [place] [address] [phone] Glucose 100 mg/dL 70-110 BUN 46 mg/dL High 6-25 Creatinine 2.8 mg/dL High 0.7-1.3 Sodium 146 mEq/L High 135-145 Potassium 4.2 mEq/L 3.5-5.0 Chloride 110 mEq/L High 95-107 Co-2 26 mEq/L 24-31 Alk Phos 63 IU/L 43-122 Alt(SGPT) 14 IU/L 10-40 Ast(Sgot) 11 IU/L 3-42 T.Bilirubin 0.4 mg/dL 0.1-1.3 Calcium 8.9 mg/dL 8.5-10.6 Tot.Protein 5.8 g/dL 5.8-8.0 Albumin 3.8 g/dL 3.0-5.2 Globulin 2.0 g/dL 2.0-3.4 GFR 23 Low >60 Lipid 10/03/2022 [facility]. [address] [place] [address] [phone] Cholesterol 139 mg/dL 0-200 11 Triglyceride 68 mg/dL 0-150 12 HDLD 52 mg/dL See Comment 13 Measured LDL 74 mg/dL 0-130 14 Calc VLDL 13.6 mg/dL See Comment 15 Chol/HDL 2.7 RATIO See Comment 16 Non-HDL 87 mg/dL See Comment 17 CBC W/Diff 10/03/2022 [facility]. [address] [place] [address] [phone] WBC 6.1 10 3.1-9.2 RBC 3.60 10 Low 4.00-5.80 HGB 11.2 GR/DL Low 12.5-17.5 HCT 34.6 % Low 37.5-52.5 MCV 95.9 CUMICR High 82.6-95.8 MCH 31.2 PICOGR 27.9-32.9 MCHC 32.5 % Low 32.6-35.4 RDW 17.2 % High 11.4-14.6 PLT 298 10 140-350 MPV 7.1 CUMICR 7.0-10.6 %Neut 66.0 % 40.0-75.0 %Lymph 12.3 % Low 17.0-45.0 %Acadia 11.5 % High 1.0-11.0 %Eos 9.4 % High 0.0-6.0 %Baso 0.8 % 0.0-2.0 #Neut 4.0 10 1.5-8.0 #Lymph 0.8 10 0.8-3.2 #Acadia 0.7 10 0.0-0.8 #Eos 0.6 10 High 0.0-0.4 #Baso 0.0 10 0.0-0.2 Laboratory test finding 10/03/2022 [facility]. [address] [place] [address] [phone] TSH 3.43 uIU/mL 0.50-6.00 FRT4 0.82 ng/dL 0.75-1.54 Iron Panel(Medcom) 10/03/2022 [facility]. [address] [place] [address] [phone] Iron 59 g /dL 45-140 % Saturation 18 % Low 30-35 Tibc 10/03/2022 [facility]. [address] [place] [address] [phone] Tibc 328 g /dL 260-400 Transferrin 234 mg/dL 200-400 Laboratory test finding 10/03/2022 [facility]. [address] [place] [address] [phone] Ferritin 122.00 ng/mL 22.00-415.0 Hba1c 10/03/2022 [facility]. [address] [place] [address] [phone] A1c 5.80 % 4.70-6.50 18 1 CRITICAL RESULTS LUCI IFIED, FAXED, AND CALLED TO TANK JACKSON @ 12:10. 03/20/23 2 Enterococcus faecium VRE 3 REPORT FAXED TO DOCT OR, REQUESTED ON REQUISITION.03/01/23 LM 4 Please fax results agatha Baez PA-C [phone] F- [phone] CRITICAL RESULTS LUCI IFIED, FAXED, AND CALLED TO LASHON HENRY @ 4:09. 02/13/23 MH 6 REPORT FAXED TO DOCT OR, REQUESTED ON REQUISITION.02/14/23 LM 7 REPORT FAXED TO DOCT OR, REQUESTED ON REQUISITION. 5.2.23 ESEQUIEL 8 Fax to [phone] [facility] P: [phone] CRITICAL RESULTS LUCI IFIED, FAXED, AND CALLED TO AMANDA AT 4:50 PM ON 11/09/22 ALB 10 REPORT FAXED TO DOCT OR, REQUESTED ON REQUISITION.11/10/22 LM 11 CHOLESTEROL Less than 200mg/dl Low risk 201-239 mg/dl Borderline risk Equal to or greater 240mg/dl High risk CHOLESTEROL COMMENTS REPORT FAXED TO DOCTOR, REQUESTED ON REQUISITION. 10/04/22 RWW 12 TRIGLYCERIDES Less than 150mg/dl Normal 150-199mg/dl Borderline 200-499mg/dl High Greater than 500mg/dl Very High 13 HDL <40mg/dl Elevated Risk 41-59mg/dl Risk >=60mg/dl Least Risk 14 LDL <100mg/dl Optimal 100-129mg/dl Near Optimal 130-159mg/dl Borderline High 160-189mg/dl High >=190 Very High 15 VLDL Less than 30mg/dl Normal 16 CHOL/HDL <4.0 Optimal 4.0-5.0 Borderline >6.0 High Risk 17 NON-HDL 30mg/dl higher than LDL Target 18 MEAN GLUCOSE IN mg/d L/A1c% POOR CONTROL FAIR CONTROL GOOD CONTROL EXCELLENT CONTROL 360-14 210-9 180-8 120-6 330-13 150-7 90-5 300-12 270-11 240-10 Procedures Date Code Description Status 03/19/2023 22396 Venipuncture Routine Complet ed 02/28/2023 63431 Venipuncture Routine Complet ed 02/13/2023 20087 Venipuncture Routine Complet ed 01/15/2023 1111F D/C Medications Reconciled W/Current Medications In Outpt MR Completed 01/12/2023 1111F D/C Medications Reconciled W/Current Medications In Outpt MR Completed 11/09/2022 01719 Venipuncture Routine Complet ed 10/04/2022 G0008 Influenza Admin Completed 10/04/2022 3078F PVRP Diastolic BP <80 mmHg C ompleted 10/04/2022 3075F PVRP Systolic BP 130 To 139 MMHG Completed 10/03/2022 73966 Venipuncture Routine Complet ed Medical Devices Description No Information Available Encounters Type Date Location Provider Dx Diagnosis Office Visit 03/19/2023 1:00p [facility] Migel Pintoberejasminaagatha, DO R06.02 Shortness of breath Office Visit 01/15/2023 11:00a [facility] Pierre Costa PA-C N40.1 Benign prosta tic hyperplasia with lower urinary tract symp A41.50 Gram-negative sepsis , unspecified Office Visit 10/04/2022 10:30a [facility] Vinod Pang JR, DO E78.00 Pure hypercholesterolemia, unspecified E88.81 Metabolic syndrome I10 Essential (primary) hypertension I73.9 Peripheral vascular disease, unspecified 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 C83.39 Diffuse large B-cell lymphoma, extrnod and solid organ sites E03.9 Hypothyroidism, unsp ecified Z23 Encounter for immuni zation Assessments Date Code Description Provider 03/19/2023 R06.02 Shortness of breath Migel Ovalle Mariana hnmacht, DO 02/28/2023 N17.9 Acute kidney failure, unspec ified Vinod Pang JR, DO 02/28/2023 N17.9 Acute kidney failure, unspec ified [facility] 02/28/2023 E55.9 Vitamin D deficiency, unspec ified Vinod Pang JR, DO 02/28/2023 E55.9 Vitamin D deficiency, unspec ified [facility] 02/28/2023 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, stag e 4 (severe) Vinod Pang JR, DO 02/28/2023 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, stag e 4 (severe) [facility] 02/13/2023 I50.9 Heart failure, unspecified K dusty Pang JR, DO 02/13/2023 I50.9 Heart failure, unspecified L ab - [facility] 02/13/2023 E11.21 Type 2 diabetes mellitus with diabetic nephropathy Vinod Pang JR, DO 02/05/2023 N17.9 Acute kidney failure, unspec ified Vinod Pang JR, DO 02/05/2023 N17.9 Acute kidney failure, unspec ified [facility] - [facility] 02/05/2023 E55.9 Vitamin D deficiency, unspec ified Vinod Pang JR, DO 02/05/2023 E55.9 Vitamin D deficiency, unspec ified [facility] - [facility] 02/05/2023 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, stag e 4 (severe) Vinod Pang JR, DO 02/05/2023 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, stag e 4 (severe) [facility] 01/15/2023 N40.1 Benign prostatic hyperplasia with lower urinary tract symptoms Pierre Costa PA-C 01/15/2023 A41.50 Gram-negative sepsis, unspec ified Pierre Costa PA-C 11/09/2022 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, stag e 4 (severe) Vinod Pang JR, DO 11/09/2022 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, stag e 4 (severe) [facility] 11/09/2022 D64.9 Anemia, unspecified Vinod Pang JR, DO 11/09/2022 D64.9 Anemia, unspecified [facility] [place] 10/04/2022 E78.00 Pure hypercholesterolemia, u nspecified Vinod Pang JR, DO 10/04/2022 E88.81 Metabolic syndrome Vinod Pang JR, DO 10/04/2022 I10 Essential (primary) hyperten lindy Vinod Pang JR, DO 10/04/2022 I73.9 Peripheral vascular disease, unspecified Vinod Pang JR, DO 10/04/2022 E11.22 Chronic kidney disease stage 4 Vinod Pang JR, DO 10/04/2022 C83.39 Diffuse large B- cell lymphoma, extranodal and solid organ sites Vinod Pang JR, DO 10/04/2022 E03.9 Hypothyroidism, unspecified Vinod Pang JR, DO 10/04/2022 Z23 Encounter for immunization K enneth L. Poly JR, DO 10/03/2022 N25.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 arathyroidism of renal origin Vinodriya Pang JR, DO 10/03/2022 N25.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 arathyroidism of renal origin Lab - [facility] 10/03/2022 E78.00 Pure hypercholesterolemia, u nspecified Vinod Pang JR, DO 10/03/2022 E78.00 Pure hypercholesterolemia, u nspecified Lab - [facility] 10/03/2022 E88.81 Metabolic syndrome Vinod Pang JR, DO 10/03/2022 E88.81 Metabolic syndrome Lab - [place] 10/03/2022 E11.21 Type 2 diabetes mellitus with diabetic nephropathy Vinod Pang JR, DO Plan of Treatment Future Appointment(s):* 04/11/2023 9:00 am - Vinod Pang JR, DO at [facility] * 04/04/2023 6:30 am - [facility] 03/19/2023 - Migel Austin, DO* R06.02 Shortness [...] for Referral Status Appt Didi Silva [address] [place] [address] Dr Hunter 6 [phone]
--- OUTSIDE RECORDS SUMMARY | 2023-08-21 23:55 | External Medical Summary ---
Author Name Unknown Address Unknown Organization [facility] [address] [place] [id number] Laboratory Report Ordering Provider Test Date Status DEMETRIO GREY 04/04/2023 06:46 Final Observation Date Value Abnormality Reference (Units ) Status HbA1C 04/04/2023 11:39 5.70 4.70-6.50 (%) Final MEAN GLUCOSE IN mg/dL/A1c%<b r/> POOR CONTROL FAIR CONTROL GOOD CONTROL EXCELLENT CONTROL
360-14 210-9 180-8 120-6
330-13 150-7 90-5
300-12
270-11
240-10 Performing Location [facility] [address] [place] [id number]
--- OUTSIDE RECORDS SUMMARY | 2023-08-21 23:55 | External Medical Summary | Continuity of Care Document ---
Author Name [facility] [place] Address [address] [place] [address] Phone [phone] [facility], Address [address] [place] [address] Phone [phone] Care Team Providers Care Wrapper Off Name Role Phone GI - Gastroenterology Care Team Information Rece Fermín Harrell MD Care Team Information Receiv er [phone] Rory Hodge Care Team Information Cv/Cvn Cv Tsc System Operator [phone] Nixon Aden MD Care Team Information Cv/Cvn Cv Tsc System Operator [phone] Abran Eugene JR - Interven tional Pain Medicine Care Team Information Cv/Cvn Cv Tsc System Operator [phone] Medardo Trinidad MD Care Team Information Receive r [phone] Sinan Marks MD Care Team Information Receive r [phone] Problems Active Problems Provider Date Chronic kidney [...] Pang JR, DO On set: 09/01/2015 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 Residential (Cu rrent) Use Encounter Vinod Pang JR [...] Indications Order ing Provider Date Nitrofurantoin Monohyd Vzikl493pr Capsules take 1 capsule twice daily for 10 days 20caps Gisella Lisa MD, PhD 03/23/2023 Clopidogrel Vfngglczu21bp Tablets Take One (1) Tablet By Mouth Every Day 30tabs I73.9 Vinod Pang JR, DO 08/24/2021 Citalopram Cnheummhqjtr67nd Tablets Take One (1) Tablet By Mouth Every Day 90tabs F33.1 Vinod Pang JR, DO 06/23/2019 Mmgckbaopkk0tb Tablets Take One Tablet By Mouth Once Daily 30tabs Vinod Pang JR, DO 11/12/2017 Oxycodone-Acetaminophen 7.5-325mg Tablets take one tablet every 6 h as needed pain--ongoing therapy 60tabs Vinod Pang JR, DO 01/22/2014 Atorvastatin Zskqhhi24uz Tablets Take One Tablet By Mouth AT Bedtime 90tabs E78.0 Vinod Pang JR, DO E78.00 Jvhayv19946Zyqh/ML Solution 40,000 units monthly Unknown Albuterol Sulfate UJP851(90B ase) mcg/Act Aerosol 2 puffs by mouth every 4-6 hours as needed wheezing Unknown Ppcprpwxvn50xf Tablets 1 by mouth twice a day 180tabs Unknown Pantoprazole Nbupve28en Tabl ets DR 1 by mouth every day Unknown 000 Cdzdjbe5cd Tablets 1 by mouth twice a day Unknown Bumetanide0.5mg Tablets 1 or 2 by mouth every day as needed Unknown Tamsulosin HCL0.4mg Capsules 1 by mouth every day Unknown History Medications Egjxbspoyl703vn Tablets take 1 tab by mouth twice [...] CPT Code Status Date Vaccine Lot # [id number] Given 10/04/2022 Influenza Vaccine High Do se 0.5ML [id number] U-FLU Given 10/04/2022 Influenza,Unspecified U-FLU Given 08/11/2020 Influenza,Unspecified 75341 Given 08/11/2020 Influenza Vacci ne-Administered at another facility U-FLU Given 08/23/2019 Influenza,Unspecified 90238 Given 08/23/2019 Influenza Vacci ne-Administered at another facility 53293 Given 07/11/2018 Influenza Vac, Split, Preservative Free High Dose Age 65 & > [id number] 00805 Given 10/02/2017 Pneumococcal Conjugate-Pr evnar 13 90352 Given 10/02/2017 Influenza Vac, Split, Preservative Free High Dose Age 65 & > 11054 Given 08/14/2016 Influenza Virus Vaccine, Quadrivalent, Im Use [id number] 42789 Given 09/01/2015 Influenza Vac, Split, Preservative Free High Dose Age 65 & > [id number] 14827 Given 09/01/2015 Pneumococcal Conjugate-Pr evnar 13 [id number] 14507 Given 07/21/2014 Influenza Vac, Split, Preservative Free High Dose Age 65 & > [id number] U-FLU Given 07/21/2014 Influenza,Unspecified 23084 Given 01/31/2014 Pneumococcal Vaccine/Pneu movax 23 57051 Given 07/17/2013 Influenza Vac, Split, Preservative Free High Dose Age 65 & > [id number] 02235 Given 07/24/2012 Influenza Vac, Split, Preservative Free High Dose Age 65 & > [id number] 63868 Given 07/04/2011 Influenza Vac, Split, Preservative Free High Dose Age 65 & > [id number] 89694 Given 08/16/2010 Pneumococcal Vaccine/Pneu movax 23 [id number] 80232 Given 10/21/2009 Influenza Vac, Split 3 Yr s And Up [id number] 91057 Given 07/24/2008 Influenza Vac, Split 3 Yr s And Up U-FLU Given 07/22/2008 Influenza,Unspecified 34253 Given 10/27/2004 Influenza Vac, Split 3 Yr s And Up 74829 Given 07/22/2004 Pneumococcal Vaccine/Pneu movax 23 [id number] Refused 07/26/2021 Moderna Sars-Co v-2 (Covid-19) vaccine, 100 mcg/ 0.5 mL 12Y+ 13980 Refused 09/28/2020 Tdap (Tetanus, diphtheria & acel. pertussis) Adacel or Boostrix 61369 Refused 09/28/2020 Shingrix 85807 Refused 08/19/2020 Influenza Virus Vaccine, Quadrivalent, Im Use 17284 Refused 07/11/2016 Influenza Vac, Split, Preservative Free [...] H/L Range N ote Urine Culture 03/19/2023 [facility] Lab. [address] [place] [address] [phone] Urine Source URINE Total Col Count >100,000 COL/CC Laboratory test finding 03/19/2023 [facility]. [address] [place] [address] [phone] BNP 904.0 pg/mL Critical high 0.0-100.0 BMP 03/19/2023 [facility]. [address] [place], [place] [id number] [phone] Glucose 132 mg/dL High 70-110 BUN 43 mg/dL High 6-25 Creatinine 3.1 mg/dL Critical high 0.7-1.3 1 Sodium 141 mEq/L 135-145 Potassium 4.0 mEq/L 3.5-5.0 Chloride 105 mEq/L 95-107 Co-2 22 mEq/L Low 24-31 Calcium 9.1 mg/dL 8.5-10.6 GFR 21 ML/MIN/1.73SQM Low >60 Laboratory test finding 03/19/2023 [facility] (In Office Test) Sars Rna QL PCR - In Office Not Detected. Urinalysis 03/19/2023 [facility]. [address] [place], [place] [id number] [phone] Color LIGHT-YELLOW Appearance CLEAR Clear Spec.Grav. 1.010 1.005-1.025 Leukocytes LARGE Abnormal Negative Nitrite NEGATIVE Negative PH 6.0 6.0-7.5 Protein TRACE Abnormal Negative Urine Glucose NEGATIVE Negative Ketone NEGATIVE Negative Urobilinogen NORMAL E.U./DL Normal Bilirubin NEGATIVE Negative Blood NEGATIVE Negative WBC-U TNTC /HPF Abnormal 0-5/HPF RBC-U 3-5 /HPF 0-5/HPF Bacteria 1+ Abnormal None Seen Squamous 0-2 /HPF 0-5/HPF Urine Isolate#1 03/19/2023 [facility]. [address] [place] [address] [phone] Isolate #1 Enterococcus mar <SEE NOTE> 2 Ampicillin >8 R Ciprofloxacin >2 R Levofloxacin >4 R Linezolid <=2 S Nitrofurantoin <=32 S Penicillin >8 R Rifampim >2 R Tetracycline >8 R Vancomycin >16 R CBC W/Diff 03/19/2023 [facility]. [address] [place] [address] [phone] WBC 6.3 10^3/M3 3.1-9.2 RBC 3.06 10^6/M3 Low 4.00-5.80 HGB 9.0 GR/DL Low 12.5-17.5 HCT 29.4 % Low 37.5-52.5 MCV 95.8 CUMICR 82.6-95.8 MCH 29.4 PICOGR 27.9-32.9 MCHC 30.7 % Low 32.6-35.4 RDW 17.6 % High 11.4-14.6 PLT 266 10^3/M3 140-350 MPV 8.2 CUMICR 7.0-10.6 %Neut 76.3 % High 40.0-75.0 %Lymph 7.3 % Low 17.0-45.0 %Ocean 8.7 % 1.0-11.0 %Eos 7.0 % High 0.0-6.0 %Baso 0.7 % 0.0-2.0 #Neut 4.8 10^3/M3 1.5-8.0 #Lymph 0.5 10^3/M3 Low 0.8-3.2 #Ocean 0.5 10^3/M3 0.0-0.8 #Eos 0.4 10^3/m3 0.0-0.4 #Baso 0.0 10^3/m3 0.0-0.2 Renal Panel 02/28/2023 [facility]. [address] [place] [address] [phone] Glucose 96 mg/dL 70-110 3 BUN 56 mg/dL High 6-25 Creatinine 2.9 mg/dL High 0.7-1.3 Sodium 142 mEq/L 135-145 Potassium 4.4 mEq/L 3.5-5.0 Chloride 109 mEq/L High 95-107 Co-2 23 mEq/L Low 24-31 Calcium 8.4 mg/dL Low 8.5-10.6 Phosphorus 3.3 mg/dL 2.5-4.8 Albumin 3.5 g/dL 3.0-5.2 GFR 22 Low >60 Laboratory test finding 02/28/2023 [facility]. [address] [place] [address] [phone] Vitd-25Oh 46 ng/mL 30-100 CBC No Diff 02/28/2023 [facility]. [address] [place] [address] [phone] WBC 5.9 10^3/M3 3.1-9.2 RBC 2.90 10^6/M3 Low 4.00-5.80 HGB 8.6 GR/DL Low 12.5-17.5 HCT 27.9 % Low 37.5-52.5 MCV 96.3 CUMICR High 82.6-95.8 MCH 29.6 PICOGR 27.9-32.9 MCHC 30.8 % Low 32.6-35.4 RDW 18.5 % High 11.4-14.6 PLT 238 10^3/M3 140-350 MPV 8.0 CUMICR 7.0-10.6 Laboratory test finding 02/13/2023 [facility]. [address] [place] [address] [phone] Magnesium 2.1 mg/dL 1.7-2.8 4 H & H 02/13/2023 [facility]. [address] [place], [place] [phone] HGB 9.9 GR/DL Low 12.5-17.5 HCT 30.6 % Low 37.5-52.5 Laboratory test finding 02/13/2023 [facility]. [address] [place] [address] [phone] BNP 490.0 pg/mL Critical high 0.0-100.0 5 BMP 02/13/2023 [facility]. [address] [place] [address] [phone] Glucose 99 mg/dL 70-110 6 BUN 59 mg/dL High 6-25 Creatinine 3.0 mg/dL High 0.7-1.3 Sodium 142 mEq/L 135-145 Potassium 3.8 mEq/L 3.5-5.0 Chloride 106 mEq/L 95-107 Co-2 27 mEq/L 24-31 Calcium 9.0 mg/dL 8.5-10.6 GFR 22 Low >60 Renal Panel 02/05/2023 [facility]. [address] [place] [address] [phone] Glucose 104 mg/dL 70-110 7 BUN 42 mg/dL High 6-25 Creatinine 3.0 mg/dL High 0.7-1.3 Sodium 150 mEq/L High 135-145 Potassium 4.9 mEq/L 3.5-5.0 Chloride 114 mEq/L High 95-107 Co-2 25 mEq/L 24-31 Calcium 8.9 mg/dL 8.5-10.6 Phosphorus 3.7 mg/dL 2.5-4.8 Albumin 3.8 g/dL 3.0-5.2 GFR 22 Low >60 Laboratory test finding 02/05/2023 [facility]. [address] [place] [address] [phone] Vitd-25Oh 38 ng/mL 30-100 CBC No Diff 02/05/2023 [facility]. [address] [place] [address] [phone] WBC 5.1 10 3.1-9.2 RBC 3.28 10 Low 4.00-5.80 HGB 9.6 GR/DL Low 12.5-17.5 HCT 30.9 % Low 37.5-52.5 MCV 94.4 CUMICR 82.6-95.8 MCH 29.3 PICOGR 27.9-32.9 MCHC 31.1 % Low 32.6-35.4 RDW 17.8 % High 11.4-14.6 PLT 195 10 140-350 MPV 8.2 CUMICR 7.0-10.6 Renal Panel 11/09/2022 [facility]. [address] [place] [address] [phone] Glucose 96 mg/dL 70-110 8 BUN 50 mg/dL High 6-25 Creatinine 3.4 mg/dL Critical high 0.7-1.3 9 Sodium 141 mEq/L 135-145 Potassium 4.5 mEq/L 3.5-5.0 Chloride 108 mEq/L High 95-107 Co-2 21 mEq/L Low 24-31 Calcium 8.9 mg/dL 8.5-10.6 Phosphorus 4.3 mg/dL 2.5-4.8 Albumin 3.7 g/dL 3.0-5.2 GFR 19 Low >60 Laboratory test finding 11/09/2022 [facility]. [address] [place] [address] [phone] Ferritin 64.20 ng/mL 22.00-415.0 CBC No Diff 11/09/2022 [facility]. [address] [place] [address] [phone] WBC 7.2 10 3.1-9.2 RBC 3.66 10 Low 4.00-5.80 HGB 11.3 GR/DL Low 12.5-17.5 HCT 35.1 % Low 37.5-52.5 MCV 96.0 CUMICR High 82.6-95.8 MCH 30.9 PICOGR 27.9-32.9 MCHC 32.2 % Low 32.6-35.4 RDW 16.7 % High 11.4-14.6 PLT 243 10 140-350 MPV 7.7 CUMICR 7.0-10.6 Iron Panel([employer]) 11/09/2022 [facility]. [address] [place] [address] [phone] Iron 80 g /dL 45-140 10 % Saturation 24 % Low 30-35 Tibc 11/09/2022 [facility]. [address] [place], [place] [address] [phone] Tibc 337 g /dL 260-400 Transferrin 241 mg/dL 200-400 Comp. Met 10/03/2022 [facility]. [address] [place], [place] [address] [phone] Glucose 100 mg/dL 70-110 BUN 46 mg/dL [...] 2.0-3.4 GFR 23 Low >60 Lipid 10/03/2022 [facility]. [address] [place] [address] [phone] Cholesterol 139 mg/dL 0-200 11 Triglyceride 68 mg/dL 0-150 12 HDLD 52 mg/dL See Comment 13 Measured LDL 74 mg/dL 0-130 14 Calc VLDL 13.6 mg/dL See Comment 15 Chol/HDL 2.7 RATIO See Comment 16 Non-HDL 87 mg/dL See Comment 17 CBC W/Diff 10/03/2022 [facility]. [address] [place] [address] [phone] WBC 6.1 10 3.1-9.2 RBC 3.60 10 Low 4.00-5.80 HGB 11.2 GR/DL Low 12.5-17.5 HCT 34.6 % Low 37.5-52.5 MCV 95.9 CUMICR High 82.6-95.8 MCH 31.2 PICOGR 27.9-32.9 MCHC 32.5 % Low 32.6-35.4 RDW 17.2 % High 11.4-14.6 PLT 298 10 140-350 MPV 7.1 CUMICR 7.0-10.6 %Neut 66.0 % 40.0-75.0 %Lymph 12.3 % Low 17.0-45.0 %Ocean 11.5 % High 1.0-11.0 %Eos 9.4 % High 0.0-6.0 %Baso 0.8 % 0.0-2.0 #Neut 4.0 10 1.5-8.0 #Lymph 0.8 10 0.8-3.2 #Ocean 0.7 10 0.0-0.8 #Eos 0.6 10 High 0.0-0.4 #Baso 0.0 10 0.0-0.2 Laboratory test finding 10/03/2022 [facility]. [address] [place] [address] [phone] TSH 3.43 uIU/mL 0.50-6.00 FRT4 0.82 ng/dL 0.75-1.54 Iron Panel([employer]) 10/03/2022 [facility]. [address] [place] [address] [phone] Iron 59 g /dL 45-140 % Saturation 18 % Low 30-35 Tibc 10/03/2022 [facility]. [address] [place] [address] [phone] Tibc 328 g /dL 260-400 Transferrin 234 mg/dL 200-400 Laboratory test finding 10/03/2022 [facility]. [address] [place] [address] [phone] Ferritin 122.00 ng/mL 22.00-415.0 Hba1c 10/03/2022 [facility]. [address] [place] [address] [phone] A1c 5.80 % 4.70-6.50 18 1 CRITICAL RESULTS LUCI IFIED, FAXED, AND CALLED TO TANK JACKSON @ 12:10. 03/20/23 2 Enterococcus faecium VRE 3 REPORT FAXED TO [facility]CT [facility], REQUESTED ON REQUISITION.03/01/23 LM 4 Please fax results agatha Baez PA-C [phone] F- [phone] CRITICAL RESULTS LUCI IFIED, FAXED, AND CALLED TO LASHON HENRY @ 4:09. 02/13/23 MH 6 REPORT FAXED TO [facility], REQUESTED ON REQUISITION.02/14/23 LM 7 REPORT FAXED TO [facility]CT [facility], REQUESTED ON REQUISITION. 5.2.23 ESEQUIEL 8 Fax to [phone] [facility] P: [phone] 9 CRITICAL RESULTS LUCI IFIED, FAXED, AND [...] 240-10 Procedures Date Code Description Status 03/19/2023 61427 Venipuncture Routine Complet ed 02/28/2023 36491 Venipuncture Routine Complet ed 02/13/2023 24485 Venipuncture Routine Complet ed 01/15/2023 1111F D/C Medications Reconciled W/Current Medications In Outpt MR Completed 01/12/2023 1111F D/C Medications Reconciled W/Current Medications In Outpt MR Completed 11/09/2022 99999 Venipuncture Routine Complet ed 10/04/2022 G0008 Influenza Admin Completed 10/04/2022 3078F PVRP Diastolic BP <80 mmHg C ompleted 10/04/2022 3075F PVRP Systolic BP 130 To 139 MMHG Completed 10/03/2022 68100 Venipuncture Routine Complet ed Medical Devices Description No Information Available Encounters Type Date Location Provider Dx Diagnosis Office Visit 03/19/2023 1:00p [place] Migel Pintoberejasminaagatha, DO R06.02 Shortness of breath Office Visit 01/15/2023 11:00a [place] Pierre Costa PA-C N40.1 Benign prosta tic hyperplasia with lower urinary tract symp A41.50 Gram-negative sepsis , unspecified Office Visit 10/04/2022 10:30a [place] Vinod Pang JR, DO E78.00 Pure hypercholesterolemia, [...] Acute kidney failure, unspec ified [facility] [place] 02/28/2023 E55.9 Vitamin D deficiency, unspec ified Vinod Pang JR, DO 02/28/2023 E55.9 Vitamin D deficiency, unspec ified [facility] [place] 02/28/2023 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, stag e 4 (severe) Vinod Pang JR, DO 02/28/2023 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, stag e 4 (severe) [facility] [place] 02/13/2023 I50.9 Heart failure, unspecified K dusty Pang JR, DO 02/13/2023 I50.9 Heart failure, unspecified L ab - [place] 02/13/2023 E11.21 Type 2 diabetes mellitus with diabetic nephropathy Vinod Pang JR, DO 02/05/2023 N17.9 Acute kidney failure, unspec ified Vinod Pang JR, DO 02/05/2023 N17.9 Acute kidney failure, unspec ified [facility] - [place] 02/05/2023 E55.9 Vitamin D deficiency, unspec ified Vinod Pang JR, DO 02/05/2023 E55.9 Vitamin D deficiency, unspec ified [facility] - [place] 02/05/2023 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, stag e 4 (severe) Vinod Pang JR, DO 02/05/2023 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, stag e 4 (severe) [facility] [place] 01/15/2023 N40.1 Benign prostatic hyperplasia with lower urinary tract symptoms Pierre Costa PA-C 01/15/2023 A41.50 Gram-negative sepsis, unspec ified Pierre Costa PA-C 11/09/2022 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, stag e 4 (severe) Vinod Pang JR, DO 11/09/2022 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, stag e 4 (severe) [facility] [place] 11/09/2022 D64.9 Anemia, unspecified Vinod Pang JR, [...] hyperp arathyroidism of renal origin Lab - [place] 10/03/2022 E78.00 Pure hypercholesterolemia, u nspecified Vinod Pang JR, DO 10/03/2022 E78.00 Pure hypercholesterolemia, u nspecified [facility] - [place] 10/03/2022 E88.81 Metabolic syndrome Vinod Pang JR, DO 10/03/2022 E88.81 Metabolic syndrome Lab - [place] 10/03/2022 E11.21 Type 2 diabetes mellitus with diabetic nephropathy Vinod Pang JR, DO Plan of Treatment Future Appointment(s):* 04/11/2023 9:00 am - Vinod Pang JR, DO at [place] * 04/04/2023 6:30 am - [facility] [place] 03/19/2023 - Migel [place], DO* R06.02 Shortness [...] for Referral Status Appt Didi Silva [address] [place] [address] Dr Hunter 5 [phone]
--- OUTSIDE RECORDS SUMMARY | 2023-08-21 23:55 | External Medical Summary ---
Author Name Unknown Address Unknown Organization K1C:[facility] [address] [place] [id number] Laboratory Report Ordering Provider Test Date Status DEMETRIO GREY 04/04/2023 06:46 Final Observation Date Value Abnormality Reference (Units ) Status TSH 04/04/2023 09:58 2.51 0.50-6.00 (uI U/mL) Final Performing Location [facility] [address] [place] [id number]
--- OUTSIDE RECORDS SUMMARY | 2023-08-21 23:56 | External Medical Summary | Continuity of Care Document ---
Author Name MIGEL YING DO Address [address], [place] [address] Phone [phone] Organization [facility] Address [address], [place] [address] Phone [phone] Care Team Providers Care Vp Software Name Role Phone GI - Gastroenterology Care Team Information Rece Femrín Harrell MD Care Team Information Receiv er [phone] Rory Hodge Care Team Information Sales Representative Uniforms + [phone] Nixon Aden MD Care Team Information Sales Representative Uniforms + [phone] Abran Eugene JR - Interven tional Pain Medicine Care Team Information Sales Representative Uniforms [phone] Medardo Trinidad MD Care Team Information Receive r [phone] Sinan Marks MD Care Team Information Receive r [phone] Problems Active Problems Provider Date Chronic kidney disease stage 4 O nset: Note: Document: 02/14/19 - N ephrology Consult Essential hypertension Vinod Pang JR, DO Onset: 09/01/2015 Anemia Vinod Pang JR, DO Onset: 02/23/2009 Peripheral vascular disease Vinod Pang JR , DO Onset: 06/24/2009 Mixed hyperlipidemia Vinod Pang JR, DO On set: 09/01/2015 Pure hypercholesterolemia Vinod Pang JR, DO Onset: 02/23/2009 Hypothyroidism Vinod Pang JR, DO Onset: 09/01/2015 Deep venous thrombosis of lower extremity Becki Pang JR, DO Onset: 09/01/2015 Metabolic syndrome X Vinod Pang JR, DO On set: 06/03/2012 Osteoarthritis Vinod Pang JR, DO Onset: 09/01/2015 Vitamin D deficiency Vinod Pang JR, DO On set: 09/01/2015 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 Prison (Cu rrent) Use Encounter Vinod Pang JR, DO Onset: 02/23/2009 Moderate recurrent major depression Vinod william JR, DO Onset: 08/16/2010 Obstructive sleep apnea syndrome Vinod hammond JR DO Onset: 09/17/2012 Liver mass Vinod Pang JR, DO Onset: 12/06/2018 Lymphoma Onset: 0 Note: Large B Cell Lymphoma Document: 12/19/18 - Oncology Consultation Diffuse large B-cell lymphom a, extranodal and solid organ sites Vinod Pang JR, DO Onset: 03/24/2020 History of SARS-CoV-2 [...] SIG Qnty Indications Ordering Provider Date Clopidogrel Mjhhxeecv81og Tablets Take One (1) Tablet By Mouth Every Day 30tabs I73.9 Vinod Pang JR, DO 08/24/2021 Citalopram Lrgfralpaxcf95rg Tablets Take One (1) Tablet By Mouth Every Day 90tabs F33.1 Vinod Pang JR, DO 06/23/2019 Ylamthcquwz5cs Tablets Take One Tablet By Mouth Once Daily 30tabs Vinod Pang JR, DO 11/12/2017 Oxycodone-Acetaminophe n7.5-325mg Tablets take one tablet every 6 h as needed pain 60tabs Vinod Pang JR, DO 01/22/2014 Atorvastatin Gpfabft73sj Tablets Take One Tablet By Mouth AT Bedtime 90tabs E78.0 Vinod Pang JR, DO E78.00 Nahmvg03436Pqzh/ML Solution 40,000 units monthly Unknown Albuterol Sulfate MJU985(90B ase) mcg/Act Aerosol 2 puffs by mouth every 4-6 hours as needed wheezing Unknown Nlktwxukrf09dc Tablets 1 by mouth twice a day 180tabs Unknown Pantoprazole Rspfyr90jv Tabl ets DR 1 by mouth every day Unknown 000 Fulrhck4at Tablets 1 by mouth twice a day Unknown Bumetanide0.5mg Tablets 1 or 2 by mouth every day as needed Unknown Tamsulosin HCL0.4mg Capsules 1 by mouth every day Unknown History Medications Wbllacaeof250jt Tablets take 1 tab by mouth twice a day x 14 days 28tabs Vinod Pang JR, DO 01/10/2023 - 01/29/2023 Medications Administered in Office Medication SIG Qnty Indications Ordering Provider Date Rocephin Inj 250 MGInjection E pilar Mcbride MD 09/01/2020 Injection Methylprednisolone Acetate 20 MGInjection Jordan Toa 11/16/2017 Rocephin Inj 250 MGInjection Vinod Pang JR, DO 02/15/2010 Influ A (H1N1) VaccineInjection Vinod Pang JR, DO 10/21/2009 Immunizations CPT Code Status Date Vaccine Lot # [id number] Given 10/04/2022 Influenza Vaccine High Do se 0.5ML [id number] U-FLU Given 10/04/2022 Influenza,Unspecified U-FLU Given 08/11/2020 Influenza,Unspecified 17518 Given 08/11/2020 Influenza Vacci ne-Administered at another facility U-FLU Given 08/23/2019 Influenza,Unspecified 96884 Given 08/23/2019 Influenza Vacci ne-Administered at another facility 32719 Given 07/11/2018 Influenza Vac, Split, Preservative Free High Dose Age 65 & > [id number] 74296 Given 10/02/2017 Pneumococcal Conjugate-Pr evnar 13 05881 Given 10/02/2017 Influenza Vac, Split, Preservative Free High Dose Age 65 & > [id number] Given 08/14/2016 Influenza Virus Vaccine, Quadrivalent, Im Use [id number] 69114 Given 09/01/2015 Influenza Vac, Split, Preservative Free High Dose Age 65 & > [id number] 58484 Given 09/01/2015 Pneumococcal Conjugate-Pr evnar 13 [id number] 57691 Given 07/21/2014 Influenza Vac, Split, Preservative Free High Dose Age 65 & > [id number] U-FLU Given 07/21/2014 Influenza,Unspecified 90817 Given 01/31/2014 Pneumococcal Vaccine/Pneu movax 23 88185 Given 07/17/2013 Influenza Vac, Split, Preservative Free High Dose Age 65 & > [id number] 78532 Given 07/24/2012 Influenza Vac, Split, Preservative Free High Dose Age 65 & > [id number] 17214 Given 07/04/2011 Influenza Vac, Split, Preservative Free High Dose Age 65 & > [id number] 34709 Given 08/16/2010 Pneumococcal Vaccine/Pneu movax 23 [id number] 75784 Given 10/21/2009 Influenza Vac, Split 3 Yr s And Up [id number] 43830 Given 07/24/2008 Influenza Vac, Split 3 Yr s And Up U-FLU Given 07/22/2008 Influenza,Unspecified 55391 Given 10/27/2004 Influenza Vac, Split 3 Yr s And Up 89837 Given 07/22/2004 Pneumococcal Vaccine/Pneu movax 23 [id number] Refused 07/26/2021 Moderna Sars-Co v-2 (Covid-19) vaccine, 100 mcg/ 0.5 mL 12Y+ 78395 Refused 09/28/2020 Tdap (Tetanus, diphtheria & acel. pertussis) Adacel or Boostrix 97926 Refused 09/28/2020 Shingrix 63788 Refused 08/19/2020 Influenza Virus Vaccine, Quadrivalent, Im Use [id number] Refused 07/11/2016 Influenza Vac, Split, Preservative Free [...] H/L Range N ote Laboratory test finding 03/19/2023 [facility] (In Office Test) Sars Rna QL PCR - In Office Not Detected. CBC W/Diff 03/19/2023 [facility] [address] [place] [address] [phone] WBC 6.3 10^3/M3 3.1-9.2 RBC 3.06 10^6/M3 Low 4.00-5.80 HGB 9.0 GR/DL Low 12.5-17.5 HCT 29.4 % Low 37.5-52.5 MCV 95.8 CUMICR 82.6-95.8 MCH 29.4 PICOGR 27.9-32.9 MCHC 30.7 % Low 32.6-35.4 RDW 17.6 % High 11.4-14.6 PLT 266 10^3/M3 140-350 MPV 8.2 CUMICR 7.0-10.6 %Neut 76.3 % High 40.0-75.0 %Lymph 7.3 % Low 17.0-45.0 %Gonzales 8.7 % 1.0-11.0 %Eos 7.0 % High 0.0-6.0 %Baso 0.7 % 0.0-2.0 #Neut 4.8 10^3/M3 1.5-8.0 #Lymph 0.5 10^3/M3 Low 0.8-3.2 #Gonzales 0.5 10^3/M3 0.0-0.8 #Eos 0.4 10^3/m3 0.0-0.4 #Baso 0.0 10^3/m3 0.0-0.2 BMP 03/19/2023 [facility] [address] [place] [address] [phone] Glucose 132 mg/dL High 70-110 BUN 43 mg/dL High 6-25 Creatinine 3.1 mg/dL Critical high 0.7-1.3 1 Sodium 141 mEq/L 135-145 Potassium 4.0 mEq/L 3.5-5.0 Chloride 105 mEq/L 95-107 Co-2 22 mEq/L Low 24-31 Calcium 9.1 mg/dL 8.5-10.6 GFR 21 ML/MIN/1.73SQM Low >60 Laboratory test finding 03/19/2023 [facility] [address] [place] [address] [phone] BNP 904.0 pg/mL Critical high 0.0-100.0 Renal Panel 02/28/2023 [facility] [address] [place], [place] [phone] Glucose 96 mg/dL 70-110 2 BUN 56 mg/dL High 6-25 Creatinine 2.9 mg/dL High 0.7-1.3 Sodium 142 mEq/L 135-145 Potassium 4.4 mEq/L 3.5-5.0 Chloride 109 mEq/L High 95-107 Co-2 23 mEq/L Low 24-31 Calcium 8.4 mg/dL Low 8.5-10.6 Phosphorus 3.3 mg/dL 2.5-4.8 Albumin 3.5 g/dL 3.0-5.2 GFR 22 Low >60 CBC No Diff 02/28/2023 [facility] [address] [place], [place] [phone] WBC 5.9 10^3/M3 3.1-9.2 RBC 2.90 10^6/M3 Low 4.00-5.80 HGB 8.6 GR/DL Low 12.5-17.5 HCT 27.9 % Low 37.5-52.5 MCV 96.3 CUMICR High 82.6-95.8 MCH 29.6 PICOGR 27.9-32.9 MCHC 30.8 % Low 32.6-35.4 RDW 18.5 % High 11.4-14.6 PLT 238 10^3/M3 140-350 MPV 8.0 CUMICR 7.0-10.6 Laboratory test finding 02/28/2023 [facility] [address] [place] [address] [phone] Vitd-25Oh 46 ng/mL 30-100 Laboratory test finding 02/13/2023 [facility] [address] [place] [address] [phone] Magnesium 2.1 mg/dL 1.7-2.8 3 BMP 02/13/2023 [facility] [address] [place] [address] [phone] Glucose 99 mg/dL 70-110 4 BUN 59 mg/dL High 6-25 Creatinine 3.0 mg/dL High 0.7-1.3 Sodium 142 mEq/L 135-145 Potassium 3.8 mEq/L 3.5-5.0 Chloride 106 mEq/L 95-107 Co-2 27 mEq/L 24-31 Calcium 9.0 mg/dL 8.5-10.6 GFR 22 Low >60 Laboratory test finding 02/13/2023 [facility] [address] [place] [address] [phone] BNP 490.0 pg/mL Critical high 0.0-100.0 5 H & H 02/13/2023 [facility] [address] [place] [address] [phone] HGB 9.9 GR/DL Low 12.5-17.5 HCT 30.6 % Low 37.5-52.5 Laboratory test finding 02/05/2023 [facility] [address] [place] [address] [phone] Vitd-25Oh 38 ng/mL 30-100 CBC No Diff 02/05/2023 [facility] [address] [place] [address] [phone] WBC 5.1 10 3.1-9.2 RBC 3.28 10 Low 4.00-5.80 HGB 9.6 GR/DL Low 12.5-17.5 HCT 30.9 % Low 37.5-52.5 MCV 94.4 CUMICR 82.6-95.8 MCH 29.3 PICOGR 27.9-32.9 MCHC 31.1 % Low 32.6-35.4 RDW 17.8 % High 11.4-14.6 PLT 195 10 140-350 MPV 8.2 CUMICR 7.0-10.6 Renal Panel 02/05/2023 [facility] [address] [place] [address] [phone] Glucose 104 mg/dL 70-110 6 BUN 42 mg/dL High 6-25 Creatinine 3.0 mg/dL High 0.7-1.3 Sodium 150 mEq/L High 135-145 Potassium 4.9 mEq/L 3.5-5.0 Chloride 114 mEq/L High 95-107 Co-2 25 mEq/L 24-31 Calcium 8.9 mg/dL 8.5-10.6 Phosphorus 3.7 mg/dL 2.5-4.8 Albumin 3.8 g/dL 3.0-5.2 GFR 22 Low >60 Renal Panel 11/09/2022 [facility] [address] [place] [address] [phone] Glucose 96 mg/dL 70-110 7 BUN 50 mg/dL High 6-25 Creatinine 3.4 mg/dL Critical high 0.7-1.3 8 Sodium 141 mEq/L 135-145 Potassium 4.5 mEq/L 3.5-5.0 Chloride 108 mEq/L High 95-107 Co-2 21 mEq/L Low 24-31 Calcium 8.9 mg/dL 8.5-10.6 Phosphorus 4.3 mg/dL 2.5-4.8 Albumin 3.7 g/dL 3.0-5.2 GFR 19 Low >60 Laboratory test finding 11/09/2022 [facility] [address] [place], [place] [phone] Ferritin 64.20 ng/mL 22.00-415.0 CBC No Diff 11/09/2022 [facility] [address] [place], [place] [phone] WBC 7.2 10 3.1-9.2 RBC 3.66 10 Low 4.00-5.80 HGB 11.3 GR/DL Low 12.5-17.5 HCT 35.1 % Low 37.5-52.5 MCV 96.0 CUMICR High 82.6-95.8 MCH 30.9 PICOGR 27.9-32.9 MCHC 32.2 % Low 32.6-35.4 RDW 16.7 % High 11.4-14.6 PLT 243 10 140-350 MPV 7.7 CUMICR 7.0-10.6 Iron Panel([employer]) 11/09/2022 [facility] [address] [place] [address] [phone] Iron 80 g /dL 45-140 9 % Saturation 24 % Low 30-35 Tibc 11/09/2022 [facility] [address] [place] [address] [phone] Tibc 337 g /dL 260-400 Transferrin 241 mg/dL 200-400 Comp. Met 10/03/2022 [facility] [address] [place] [address] [phone] Glucose 100 mg/dL 70-110 BUN 46 mg/dL [...] 2.0-3.4 GFR 23 Low >60 Lipid 10/03/2022 [facility] [address] [place] [address] [phone] Cholesterol 139 mg/dL 0-200 10 Triglyceride 68 mg/dL 0-150 11 HDLD 52 mg/dL See Comment 12 Measured LDL 74 mg/dL 0-130 13 Calc VLDL 13.6 mg/dL See Comment 14 Chol/HDL 2.7 RATIO See Comment 15 Non-HDL 87 mg/dL See Comment 16 CBC W/Diff 10/03/2022 [facility] [address] [place] [address] [phone] WBC 6.1 10 3.1-9.2 RBC 3.60 10 Low 4.00-5.80 HGB 11.2 GR/DL Low 12.5-17.5 HCT 34.6 % Low 37.5-52.5 MCV 95.9 CUMICR High 82.6-95.8 MCH 31.2 PICOGR 27.9-32.9 MCHC 32.5 % Low 32.6-35.4 RDW 17.2 % High 11.4-14.6 PLT 298 10 140-350 MPV 7.1 CUMICR 7.0-10.6 %Neut 66.0 % 40.0-75.0 %Lymph 12.3 % Low 17.0-45.0 %Gonzales 11.5 % High 1.0-11.0 %Eos 9.4 % High 0.0-6.0 %Baso 0.8 % 0.0-2.0 #Neut 4.0 10 1.5-8.0 #Lymph 0.8 10 0.8-3.2 #Gonzales 0.7 10 0.0-0.8 #Eos 0.6 10 High 0.0-0.4 #Baso 0.0 10 0.0-0.2 Laboratory test finding 10/03/2022 [facility] [address] [place] [address] [phone] TSH 3.43 uIU/mL 0.50-6.00 FRT4 0.82 ng/dL 0.75-1.54 Iron Panel([employer]) 10/03/2022 [facility] [address] [place] [address] [phone] Iron 59 g /dL 45-140 % Saturation 18 % Low 30-35 Tibc 10/03/2022 [facility] [address] [place] [address] [phone] Tibc 328 g /dL 260-400 Transferrin 234 mg/dL 200-400 Laboratory test finding 10/03/2022 [facility] [address] [place] [address] [phone] Ferritin 122.00 ng/mL 22.00-415.0 Hba1c 10/03/2022 [facility] [address] [place] [address] [phone] A1c 5.80 % 4.70-6.50 17 1 CRITICAL RESULTS LUCI IFIED, FAXED, AND CALLED TO TANK JACKSON @ 12:10. 03/20/23 MH 2 REPORT FAXED TO DOCT OR, REQUESTED ON REQUISITION.03/01/23 LM 3 Please fax results t chandrika Baez PA-C [phone] F- [phone] 4 REPORT FAXED TO DOCT OR, REQUESTED ON REQUISITION.02/14/23 LM 5 CRITICAL RESULTS LUCI IFIED, FAXED, AND CALLED TO LASHON HENRY @ 4:09. 02/13/23 MH 6 REPORT FAXED TO DOCT OR, REQUESTED ON REQUISITION. 02.06.23 ESEQUIEL 7 Fax to [phone] [facility] P: [phone] 8 CRITICAL RESULTS LUCI IFIED, FAXED, AND CALLED TO AMANDA AT 4:50 PM ON 11/09/22 ALB 9 REPORT FAXED TO DOCT OR, REQUESTED ON REQUISITION.11/10/22 LM 10 CHOLESTEROL Less than 200mg/dl Low risk 201-239 mg/dl Borderline risk Equal to or greater 240mg/dl High risk CHOLESTEROL COMMENTS REPORT FAXED TO DOCTOR, REQUESTED ON REQUISITION. 10/04/22 RW 11 TRIGLYCERIDES Less than 150mg/dl Normal 150-199mg/dl Borderline 200-499mg/dl High Greater than 500mg/dl Very High 12 HDL <40mg/dl Elevated Risk 41-59mg/dl Risk >=60mg/dl Least Risk 13 LDL <100mg/dl Optimal 100-129mg/dl Near Optimal 130-159mg/dl Borderline High 160-189mg/dl High >=190 Very High 14 VLDL Less than 30mg/dl Normal 15 CHOL/HDL <4.0 Optimal 4.0-5.0 Borderline >6.0 High Risk 16 NON-HDL 30mg/dl higher than LDL Target 17 MEAN GLUCOSE IN mg/d L/A1c% POOR CONTROL FAIR CONTROL GOOD CONTROL EXCELLENT CONTROL 360-14 210-9 180-8 120-6 330-13 150-7 90-5 300-12 270-11 240-10 Procedures Date Code Description Status 03/19/2023 27584 Venipuncture Routine Complet ed 02/28/2023 36584 Venipuncture Routine Complet ed 02/13/2023 45875 Venipuncture Routine Complet ed 01/15/2023 1111F D/C Medications Reconciled W/Current Medications In Outpt MR Completed 01/12/2023 1111F D/C Medications Reconciled W/Current Medications In Outpt MR Completed 11/09/2022 82052 Venipuncture Routine Complet ed 10/04/2022 G0008 Influenza Admin Completed 10/04/2022 3078F PVRP Diastolic BP <80 mmHg C ompleted 10/04/2022 3075F PVRP Systolic BP 130 To 139 MMHG Completed 10/03/2022 11166 Venipuncture Routine Complet ed Medical Devices Description No Information Available Encounters Type Date Location Provider Dx Diagnosis Office Visit 03/19/2023 1:00p [facility] Ying, DO R06.02 Shortness of breath Office Visit 01/15/2023 11:00a [facility] Pierre Costa PA-C N40.1 Benign prosta tic hyperplasia with lower urinary tract symp A41.50 Gram-negative sepsis , unspecified Office Visit 10/04/2022 10:30a [facility] Pang JR, DO E78.00 Pure hypercholesterolemia, unspecified E88.81 Metabolic syndrome I10 Essential (primary) hypertension I73.9 Peripheral vascular disease, unspecified 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 C83.39 Diffuse large B-cell lymphoma, extrnod and solid organ sites E03.9 Hypothyroidism, unsp ecified Z23 Encounter for immuni zation Assessments Date Code Description Provider 03/19/2023 R06.02 Shortness of breath Migel Peña hnblankaht, DO 02/28/2023 N17.9 Acute kidney failure, unspec ified Vinod Pang JR, DO 02/28/2023 N17.9 Acute kidney failure, unspec ified Lab - [facility] 02/28/2023 E55.9 Vitamin D deficiency, unspec ified Vinodriya Pang JR, DO 02/28/2023 E55.9 Vitamin D deficiency, unspec ified Lab - [facility] 02/28/2023 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, stag e 4 (severe) Vinod Pang JR, DO 02/28/2023 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, stag e 4 (severe) Lab - [facility] 02/13/2023 I50.9 Heart failure, unspecified K felixriya Pang JR, DO 02/13/2023 I50.9 Heart failure, unspecified L ab - [facility] 02/13/2023 E11.21 Type 2 diabetes mellitus with diabetic nephropathy Vinod Pang JR, DO 02/05/2023 N17.9 Acute kidney failure, unspec ified Vinod Pang JR, DO 02/05/2023 N17.9 Acute kidney failure, unspec ified Lab - [facility] 02/05/2023 E55.9 Vitamin D deficiency, unspec ified Vinod Pang JR, DO 02/05/2023 E55.9 Vitamin D deficiency, unspec ified Lab - [facility] 02/05/2023 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, stag e 4 (severe) Vinod Pang JR, DO 02/05/2023 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, stag e 4 (severe) Lab - [facility] 01/15/2023 N40.1 Benign prostatic hyperplasia with lower urinary tract symptoms Pierre Costa PA-C 01/15/2023 A41.50 Gram-negative sepsis, unspec ified Pierre Costa PA-C 11/09/2022 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, stag e 4 (severe) Vinod Pang JR, DO 11/09/2022 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, stag e 4 (severe) Lab - [facility] 11/09/2022 D64.9 Anemia, unspecified Vinod Pang JR, DO 11/09/2022 D64.9 Anemia, unspecified [facility] [place] [facility] [place] 10/04/2022 E78.00 Pure hypercholesterolemia, u nspecified [...] DO 10/04/2022 Z23 Encounter for immunization K dusty Pang JR, DO 10/03/2022 N25.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 arathyroidism of renal origin Vinod Pang JR, DO 10/03/2022 N25.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 arathyroidism of renal origin Lab - [facility] 10/03/2022 E78.00 Pure hypercholesterolemia, u nspecified Vinod Pang JR, DO 10/03/2022 E78.00 Pure hypercholesterolemia, u nspecified Lab - [facility] 10/03/2022 E88.81 Metabolic syndrome Vinod Pang JR, DO 10/03/2022 E88.81 Metabolic syndrome Lab - [facility] [place] 10/03/2022 E11.21 Type 2 diabetes mellitus with diabetic nephropathy Vinod Pang JR DO Plan of Treatment Future Appointment(s):* 04/11/2023 9:00 am - Vinod Pang JR, DO at [facility] * 04/04/2023 6:30 am - [facility] 03/19/2023 - Migel Ying, DO* R06.02 Shortness of breath* New Xrays:* XR Chest 2 Views, Ordered: 03/19/23 * Comments:* Patient with increasing fatigue and SOB [...] Referral Status Appt Timothy Zi Silva [address] [place] [address] Dr Hunter [phone]
--- OUTSIDE RECORDS SUMMARY | 2023-08-21 23:56 | External Medical Summary | Continuity of Care Document ---
Author Name MIGEL YING DO Address [address], [place] [address] Phone [phone] Organization [facility] Address [address], [address] [place] [address] Phone [phone] Care Team Providers Care Night Clerk Auditor Name Role Phone GI - Gastroenterology Care Team Information Rece Fermín Harrell MD Care Team Information Receiv er [phone] Rory Hodge Care Team Information Residential Builder [phone] Nixon Aden MD Care Team Information Residential Builder [phone] Abran Eugene JR - Interven tional Pain Medicine Care Team Information Residential Builder [phone] Medardo Trinidad MD Care Team Information Receive r [phone] Sinan Marks MD Care Team Information Receive r [phone] Problems Active Problems Provider Date Chronic kidney disease stage 4 O nset: Note: Document: 02/14/19 - N ephrology Consult Essential hypertension Vniod Pang JR, DO Onset: 09/01/2015 Anemia Vinod [...] SIG Qnty Indications Ordering Provider Date Clopidogrel Gzfuycayq34cx Tablets Take One (1) Tablet By Mouth Every Day 30tabs I73.9 Vinod Pang JR, DO 08/24/2021 Citalopram Cxucaxfmtcfq99qw Tablets Take One (1) Tablet By Mouth Every Day 90tabs F33.1 Vinod Pang JR, DO 06/23/2019 Zqaoczenylu1kc Tablets Take One Tablet By Mouth Once Daily 30tabs Vinod Pang JR, DO 11/12/2017 Oxycodone-Acetaminophe n7.5-325mg Tablets take one tablet every 6 h as needed pain 60tabs Vinod Pang JR, DO 01/22/2014 Atorvastatin Urplklf79fe Tablets Take One Tablet By Mouth AT Bedtime 90tabs E78.0 Vinod Pang JR, DO E78.00 Foyfbf34096Jysd/ML Solution 40,000 units monthly Unknown Albuterol Sulfate CFS403(90B ase) mcg/Act Aerosol 2 puffs by mouth every 4-6 hours as needed wheezing Unknown Kicsdftslo64ay Tablets 1 by mouth twice a day 180tabs Unknown Pantoprazole Cbfmmz18oy Tabl ets DR 1 by mouth every day Unknown 000 Zvzdtwq7jw Tablets 1 by mouth twice a day Unknown Bumetanide0.5mg Tablets 1 or 2 by mouth every day as needed Unknown Tamsulosin HCL0.4mg Capsules 1 by mouth every day Unknown History Medications Wwrtasfooj760ac Tablets take 1 tab by mouth twice a day x 14 days 28tabs Vinod Pang JR, DO 01/10/2023 - 01/29/2023 Medications Administered in Office Medication SIG Qnty Indications Ordering Provider Date Rocephin Inj 250 MGInjection E pilar Mcbride MD 09/01/2020 Injection Methylprednisolone Acetate 20 MGInjection Jordan Tao 11/16/2017 Rocephin Inj 250 MGInjection Vinod Pang JR, DO 02/15/2010 Influ A (H1N1) VaccineInjection Vinod aPng JR, DO 10/21/2009 Immunizations CPT Code Status Date Vaccine Lot # [id number] Given 10/04/2022 Influenza Vaccine High Do se 0.5ML [id number] U-FLU Given 10/04/2022 Influenza,Unspecified U-FLU Given 08/11/2020 Influenza,Unspecified 70405 Given 08/11/2020 Influenza Vacci ne-Administered at another facility U-FLU Given 08/23/2019 Influenza,Unspecified 56778 Given 08/23/2019 Influenza Vacci ne-Administered at another facility 28610 Given 07/11/2018 Influenza Vac, Split, Preservative Free High Dose Age 65 & > [id number] 16140 Given 10/02/2017 Pneumococcal Conjugate-Pr evnar 13 12429 Given 10/02/2017 Influenza Vac, Split, Preservative Free High Dose Age 65 & > [id number] Given 08/14/2016 Influenza Virus Vaccine, Quadrivalent, Im Use [id number] 13883 Given 09/01/2015 Influenza Vac, Split, Preservative Free High Dose Age 65 & > [id number] 69749 Given 09/01/2015 Pneumococcal Conjugate-Pr evnar 13 [id number] 12865 Given 07/21/2014 Influenza Vac, Split, Preservative Free High Dose Age 65 & > [id number] U-FLU Given 07/21/2014 Influenza,Unspecified 20710 Given 01/31/2014 Pneumococcal Vaccine/Pneu movax 23 28970 Given 07/17/2013 Influenza Vac, Split, Preservative Free High Dose Age 65 & > [id number] 24915 Given 07/24/2012 Influenza Vac, Split, Preservative Free High Dose Age 65 & > [id number] 47889 Given 07/04/2011 Influenza Vac, Split, Preservative Free High Dose Age 65 & > [id number] 46200 Given 08/16/2010 Pneumococcal Vaccine/Pneu movax 23 [id number] 15468 Given 10/21/2009 Influenza Vac, Split 3 Yr s And Up [id number] 23850 Given 07/24/2008 Influenza Vac, Split 3 Yr s And Up U-FLU Given 07/22/2008 Influenza,Unspecified 45518 Given 10/27/2004 Influenza Vac, Split 3 Yr s And Up 48967 Given 07/22/2004 Pneumococcal Vaccine/Pneu movax 23 [id number] Refused 07/26/2021 Moderna Sars-Co v-2 (Covid-19) vaccine, 100 mcg/ 0.5 mL 12Y+ [id number] Refused 09/28/2020 Tdap (Tetanus, diphtheria & acel. pertussis) Adacel or Boostrix 79671 Refused 09/28/2020 Shingrix 44044 Refused 08/19/2020 Influenza Virus Vaccine, Quadrivalent, Im Use 21062 Refused 07/11/2016 Influenza Vac, Split, Preservative Free [...] Range N ote Laboratory test finding 03/19/2023 [facility] (In Office Test) Sars Rna QL PCR - In Office Not Detected. CBC W/Diff 03/19/2023 [facility] [address] [place] [address] [phone] WBC 6.3 10^3/M3 3.1-9.2 RBC 3.06 10^6/M3 Low 4.00-5.80 HGB 9.0 GR/DL Low 12.5-17.5 HCT 29.4 % Low 37.5-52.5 MCV 95.8 CUMICR 82.6-95.8 MCH 29.4 PICOGR 27.9-32.9 MCHC 30.7 % Low 32.6-35.4 RDW 17.6 % High 11.4-14.6 PLT 266 10^3/M3 140-350 MPV 8.2 CUMICR 7.0-10.6 %Neut 76.3 % High 40.0-75.0 %Lymph 7.3 % Low 17.0-45.0 %Vigo 8.7 % 1.0-11.0 %Eos 7.0 % High 0.0-6.0 %Baso 0.7 % 0.0-2.0 #Neut 4.8 10^3/M3 1.5-8.0 #Lymph 0.5 10^3/M3 Low 0.8-3.2 #Vigo 0.5 10^3/M3 0.0-0.8 #Eos 0.4 10^3/m3 0.0-0.4 #Baso 0.0 10^3/m3 0.0-0.2 BMP 03/19/2023 [facility] [address] [place] [address] [phone] Glucose 132 mg/dL High 70-110 BUN 43 mg/dL High 6-25 Creatinine 3.1 mg/dL Critical high 0.7-1.3 1 Sodium 141 mEq/L 135-145 Potassium 4.0 mEq/L 3.5-5.0 Chloride 105 mEq/L 95-107 Co-2 22 mEq/L Low 24-31 Calcium 9.1 mg/dL 8.5-10.6 GFR 21 ML/MIN/1.73SQM Low >60 Laboratory test finding 03/19/2023 [facility] [address] [place] [address] [phone] BNP 904.0 pg/mL Critical high 0.0-100.0 Renal Panel 02/28/2023 [facility] [address] [place], [place] [id number] [phone] Glucose 96 mg/dL 70-110 2 BUN 56 mg/dL High 6-25 Creatinine 2.9 mg/dL High 0.7-1.3 Sodium 142 mEq/L 135-145 Potassium 4.4 mEq/L 3.5-5.0 Chloride 109 mEq/L High 95-107 Co-2 23 mEq/L Low 24-31 Calcium 8.4 mg/dL Low 8.5-10.6 Phosphorus 3.3 mg/dL 2.5-4.8 Albumin 3.5 g/dL 3.0-5.2 GFR 22 Low >60 CBC No Diff 02/28/2023 [facility] [address] [place], [place] [phone] WBC 5.9 10^3/M3 3.1-9.2 RBC 2.90 10^6/M3 Low 4.00-5.80 HGB 8.6 GR/DL Low 12.5-17.5 HCT 27.9 % Low 37.5-52.5 MCV 96.3 CUMICR High 82.6-95.8 MCH 29.6 PICOGR 27.9-32.9 MCHC 30.8 % Low 32.6-35.4 RDW 18.5 % High 11.4-14.6 PLT 238 10^3/M3 140-350 MPV 8.0 CUMICR 7.0-10.6 Laboratory test finding 02/28/2023 [facility] [address] [place] [address] [phone] Vitd-25Oh 46 ng/mL 30-100 Laboratory test finding 02/13/2023 [facility] [address] [place] [address] [phone] Magnesium 2.1 mg/dL 1.7-2.8 3 BMP 02/13/2023 [facility] [address] [place] [address] [phone] Glucose 99 mg/dL 70-110 4 BUN 59 mg/dL High 6-25 Creatinine 3.0 mg/dL High 0.7-1.3 Sodium 142 mEq/L 135-145 Potassium 3.8 mEq/L 3.5-5.0 Chloride 106 mEq/L 95-107 Co-2 27 mEq/L 24-31 Calcium 9.0 mg/dL 8.5-10.6 GFR 22 Low >60 Laboratory test finding 02/13/2023 [facility] [address] [place] [address] [phone] BNP 490.0 pg/mL Critical high 0.0-100.0 5 H & H 02/13/2023 [facility] [address] [place] [address] [phone] HGB 9.9 GR/DL Low 12.5-17.5 HCT 30.6 % Low 37.5-52.5 Laboratory test finding 02/05/2023 [facility] [address] [place] [address] [phone] Vitd-25Oh 38 ng/mL 30-100 CBC No Diff 02/05/2023 [facility] [address] [place] [address] [phone] WBC 5.1 10 3.1-9.2 RBC 3.28 10 Low 4.00-5.80 HGB 9.6 GR/DL Low 12.5-17.5 HCT 30.9 % Low 37.5-52.5 MCV 94.4 CUMICR 82.6-95.8 MCH 29.3 PICOGR 27.9-32.9 MCHC 31.1 % Low 32.6-35.4 RDW 17.8 % High 11.4-14.6 PLT 195 10 140-350 MPV 8.2 CUMICR 7.0-10.6 Renal Panel 02/05/2023 [facility] [address] [place] [address] [phone] Glucose 104 mg/dL 70-110 6 BUN 42 mg/dL High 6-25 Creatinine 3.0 mg/dL High 0.7-1.3 Sodium 150 mEq/L High 135-145 Potassium 4.9 mEq/L 3.5-5.0 Chloride 114 mEq/L High 95-107 Co-2 25 mEq/L 24-31 Calcium 8.9 mg/dL 8.5-10.6 Phosphorus 3.7 mg/dL 2.5-4.8 Albumin 3.8 g/dL 3.0-5.2 GFR 22 Low >60 Renal Panel 11/09/2022 [facility] [address] [place] [address] [phone] Glucose 96 mg/dL 70-110 7 BUN 50 mg/dL High 6-25 Creatinine 3.4 mg/dL Critical high 0.7-1.3 8 Sodium 141 mEq/L 135-145 Potassium 4.5 mEq/L 3.5-5.0 Chloride 108 mEq/L High 95-107 Co-2 21 mEq/L Low 24-31 Calcium 8.9 mg/dL 8.5-10.6 Phosphorus 4.3 mg/dL 2.5-4.8 Albumin 3.7 g/dL 3.0-5.2 GFR 19 Low >60 Laboratory test finding 11/09/2022 [facility] [address] [place], [place] [phone] Ferritin 64.20 ng/mL 22.00-415.0 CBC No Diff 11/09/2022 [facility] [address] [place], [place] [address] [phone] WBC 7.2 10 3.1-9.2 RBC 3.66 10 Low 4.00-5.80 HGB 11.3 GR/DL Low 12.5-17.5 HCT 35.1 % Low 37.5-52.5 MCV 96.0 CUMICR High 82.6-95.8 MCH 30.9 PICOGR 27.9-32.9 MCHC 32.2 % Low 32.6-35.4 RDW 16.7 % High 11.4-14.6 PLT 243 10 140-350 MPV 7.7 CUMICR 7.0-10.6 Iron Panel([employer]) 11/09/2022 [facility] [address] [place] [address] [phone] Iron 80 g /dL 45-140 9 % Saturation 24 % Low 30-35 Tibc 11/09/2022 [facility] [address] [place] [address] [phone] Tibc 337 g /dL 260-400 Transferrin 241 mg/dL 200-400 Comp. Met 10/03/2022 [facility] [address] [place] [address] [phone] Glucose 100 mg/dL 70-110 BUN 46 mg/dL [...] 2.0-3.4 GFR 23 Low >60 Lipid 10/03/2022 [facility] [address] [place] [address] [phone] Cholesterol 139 mg/dL 0-200 10 Triglyceride 68 mg/dL 0-150 11 HDLD 52 mg/dL See Comment 12 Measured LDL 74 mg/dL 0-130 13 Calc VLDL 13.6 mg/dL See Comment 14 Chol/HDL 2.7 RATIO See Comment 15 Non-HDL 87 mg/dL See Comment 16 CBC W/Diff 10/03/2022 [facility] [address] [place] [address] [phone] WBC 6.1 10 3.1-9.2 RBC 3.60 10 Low 4.00-5.80 HGB 11.2 GR/DL Low 12.5-17.5 HCT 34.6 % Low 37.5-52.5 MCV 95.9 CUMICR High 82.6-95.8 MCH 31.2 PICOGR 27.9-32.9 MCHC 32.5 % Low 32.6-35.4 RDW 17.2 % High 11.4-14.6 PLT 298 10 140-350 MPV 7.1 CUMICR 7.0-10.6 %Neut 66.0 % 40.0-75.0 %Lymph 12.3 % Low 17.0-45.0 %Vigo 11.5 % High 1.0-11.0 %Eos 9.4 % High 0.0-6.0 %Baso 0.8 % 0.0-2.0 #Neut 4.0 10 1.5-8.0 #Lymph 0.8 10 0.8-3.2 #Vigo 0.7 10 0.0-0.8 #Eos 0.6 10 High 0.0-0.4 #Baso 0.0 10 0.0-0.2 Laboratory test finding 10/03/2022 [facility] [address] [place] [address] [phone] TSH 3.43 uIU/mL 0.50-6.00 FRT4 0.82 ng/dL 0.75-1.54 Iron Panel([facility]) 10/03/2022 [facility] [address] [place] [address] [phone] Iron 59 g /dL 45-140 % Saturation 18 % Low 30-35 Tibc 10/03/2022 [facility] [address] [place] [address] [phone] Tibc 328 g /dL 260-400 Transferrin 234 mg/dL 200-400 Laboratory test finding 10/03/2022 [facility] [address] [place] [address] [phone] Ferritin 122.00 ng/mL 22.00-415.0 Hba1c 10/03/2022 [facility] [address] [place] [address] [phone] A1c 5.80 % 4.70-6.50 17 1 CRITICAL RESULTS LUCI IFIED, FAXED, AND CALLED TO TANK JACKSON @ 12:10. 03/20/23 MH 2 REPORT FAXED TO DOCT OR, REQUESTED ON REQUISITION.03/01/23 LM 3 Please fax results t chandrika Baez PA-C [phone] F- [phone] 4 REPORT FAXED TO DOCT OR, REQUESTED ON REQUISITION.02/14/23 LM 5 CRITICAL RESULTS LUCI IFIED, FAXED, AND CALLED TO LASHON HENRY @ 4:09. 02/13/23 MH 6 REPORT FAXED TO DOCT OR, REQUESTED ON REQUISITION. 02.06.23 ESEQUIEL 7 Fax to [phone] [facility] P: [phone] 8 CRITICAL RESULTS LUCI IFIED, FAXED, AND [...] 240-10 Procedures Date Code Description Status 03/19/2023 14128 Venipuncture Routine Complet ed 02/28/2023 62574 Venipuncture Routine Complet ed 02/13/2023 78820 Venipuncture Routine Complet ed 01/15/2023 1111F D/C Medications Reconciled W/Current Medications In Outpt MR Completed 01/12/2023 1111F D/C Medications Reconciled W/Current Medications In Outpt MR Completed 11/09/2022 78715 Venipuncture Routine Complet ed 10/04/2022 G0008 Influenza Admin Completed 10/04/2022 3078F PVRP Diastolic BP <80 mmHg C ompleted 10/04/2022 3075F PVRP Systolic BP 130 To 139 MMHG Completed 10/03/2022 78915 Venipuncture Routine Complet ed Medical Devices Description No Information Available Encounters Type Date Location Provider Dx Diagnosis Office Visit 03/19/2023 1:00p [place] Ying, DO R06.02 Shortness of breath Office Visit 01/15/2023 11:00a [facility] Pierre Costa PA-C N40.1 Benign prosta tic hyperplasia with lower urinary tract symp A41.50 Gram-negative sepsis , unspecified Office Visit 10/04/2022 10:30a [place] Pang JR, DO E78.00 Pure hypercholesterolemia, unspecified [...] Acute kidney failure, unspec ified Lab - [facility] 02/28/2023 E55.9 Vitamin D deficiency, unspec ified Vinodriya Pang JR, DO 02/28/2023 E55.9 Vitamin D deficiency, unspec ified Lab - [facility] 02/28/2023 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, stag e 4 (severe) Vinod Pang JR, DO 02/28/2023 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, stag e 4 (severe) Lab - [facility] 02/13/2023 I50.9 Heart failure, unspecified K felixriya Pang JR, DO 02/13/2023 I50.9 Heart failure, unspecified L ab - [facility] 02/13/2023 E11.21 Type 2 diabetes mellitus with diabetic nephropathy Vinod Pang JR, DO 02/05/2023 N17.9 Acute kidney failure, unspec ified Vinod Pang JR, DO 02/05/2023 N17.9 Acute kidney failure, unspec ified Lab - [facility] 02/05/2023 E55.9 Vitamin D deficiency, unspec ified Vinod Pang JR, DO 02/05/2023 E55.9 Vitamin D deficiency, unspec ified Lab - [facility] 02/05/2023 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, stag e 4 (severe) Vinod Pang JR, DO 02/05/2023 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, stag e 4 (severe) Lab - [facility] 01/15/2023 N40.1 Benign prostatic hyperplasia with lower urinary tract symptoms Pierre Costa PA-C 01/15/2023 A41.50 Gram-negative sepsis, unspec ified Pierre Costa PA-C 11/09/2022 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, stag e 4 (severe) Vinod Pang JR, DO 11/09/2022 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, stag e 4 (severe) Lab - [facility] 11/09/2022 D64.9 Anemia, unspecified Vinod Pang JR, DO 11/09/2022 D64.9 Anemia, unspecified Lab - [place] 10/04/2022 E78.00 Pure hypercholesterolemia, u nspecified [...] hyperp arathyroidism of renal origin Lab - [facility] 10/03/2022 E78.00 Pure hypercholesterolemia, u nspecified Vinod Pang JR, DO 10/03/2022 E78.00 Pure hypercholesterolemia, u nspecified Lab - [facility] 10/03/2022 E88.81 Metabolic syndrome Vinod Pang JR, DO 10/03/2022 E88.81 Metabolic syndrome Lab - [place] 10/03/2022 E11.21 Type 2 diabetes mellitus with diabetic nephropathy Vinod Pang JR DO Plan of Treatment Future Appointment(s):* 04/11/2023 9:00 am - Vinod Pang JR, DO at [facility] * 04/04/2023 6:30 am - [facility] 03/19/2023 - Migel Ying, DO* R06.02 Shortness [...] Referral Status Appt Timothy Zi Silva [address] [place] [address] Dr Hunter [phone]
--- OUTSIDE RECORDS SUMMARY | 2023-08-21 23:56 | External Medical Summary ---
Author Name Unknown Address Unknown Organization [facility] [address] [place] [address] Laboratory Report Ordering Provider Test Date Status DEONNA FELIX 03/19/2023 14:23 Final Observation Date Value Abnormality Reference (Units ) Status COLOR 03/20/2023 11:59 LIGHT-YELLOW Final APPEARANCE 03/20/2023 11:59 CLEAR CLEAR Final SPEC.GRAV. 03/20/2023 11:59 1.010 1.005-1.025 Final LEUKOCYTES 03/20/2023 11:59 LARGE Abnormal NEGATIVE Final NITRITE 03/20/2023 11:59 NEGATIVE NEGATIVE Final PH 03/20/2023 11:59 6.0 6.0-7.5 Final PROTEIN 03/20/2023 11:59 TRACE Abnormal NEGATIVE Final Glucose [Presence] in Urine 03/20/2023 11:59 NEGATIVE NEGATIVE Final KETONE 03/20/2023 11:59 NEGATIVE NEGATIVE Final UROBILINOGEN 03/20/2023 11:59 NORMAL NORMAL (E.U./DL) Final BILIRUBIN 03/20/2023 11:59 NEGATIVE NEGATIVE Final BLOOD 03/20/2023 11:59 NEGATIVE NEGATIVE Final WBC, Urine 03/20/2023 11:59 TNTC Abnormal 0-5/HPF (/HPF) Final RBC-U 03/20/2023 11:59 3-5 0-5/HPF (/HPF) Final BACTERIA 03/20/2023 11:59 1+ Abnormal NONE SEEN Final SQUAMOUS 03/20/2023 11:59 0-2 0-5/HPF (/HPF) Final Performing Location [facility] [address] [place] [address]
--- OUTSIDE RECORDS SUMMARY | 2023-08-21 23:56 | External Medical Summary | Summary of Care ---
Author Name Unknown Organization [facility] Address [address] [place] [address] Phone [phone] Care Team Providers Care Supermarket Manager Name Role Phone Poly Basilio DO, Kenneth Primary Care Provider [phone] Encounter Details Date Type Department Care Team Description 03/19/2023 Orders Only Unspecified Department Allergies No known active allergiesdocumented as of this encounter (statuses as of 03/20/2023) Medications Medication Sig Dispensed Refills Start Date [...] 650 mg. 0 Active Vitamin D, Ergocalciferol, 23870 units Capsule 50,000 Units. 0 Active ondansetron [...] as of this encounter (statuses as of 03/20/2023) Active Problems Problem Noted Date Anemia 06/20/2022 Moderate malnutrition 04/11/2019 Febrile neutropenia 04/10/2019 Sepsis 04/10/2019 CAD (coronary artery disease) 04/10/2019 CKD (chronic kidney disease) 04/10/2019 Lymphoma 04/10/2019 PVD (peripheral vascular disease) 2018 HTN (hypertension) 04/10/2019 HLD (hyperlipidemia) 04/10/2019 ADVANCE DIRECTIVE INFORMATION 06/07/2009 Overview: No, Advance Directive brochure offered , patient declined. documented as of this encounter (statuses as of 03/20/2023) Immunizations Name Administration Dates Next Due Pneumococcal [...] Years (2 - PCV) 07/22/2005 07/22/2004 GFR 02/29/2024 02/28/2023, 05/0 06/2023, 02/05/2023, Additional history exists Albumin/Creatinine Ratio 02/08/2025 02/08/2022 [...] Procedure Name Priority Date/Time Associated Diagnosis Comments URINALYSIS, REFLEX TO MICROSCOPIC Routine 03/19/2023 2:23 PM EDT documented in this encounter Results * (ABNORMAL) URINALYSIS, REFLEX TO MICROSCOPIC (03/19/2023 2:23 PM EDT) COLOR - OUTSIDE LAB LIGHT-YELLO [facility] Comment:Document delivery by [place] on behalf of [facility] APPEARANCE-OUTSI DE LAB CLEAR CLEAR [facility] Comment:Document delivery by [place] on behalf of [facility] SPECIFIC GRAVITY - OUTSIDE LAB 1.010 1.005 - 1.025 [facility] Comment:Document delivery by [place] on behalf of [facility] LEUKOCYTE-Outsid e Lab LARGE(A) NEGATIVE [facility] Comment:Document delivery by [place] on behalf of [facility] NITRITE - OUTSIDE LAB NEGATIVE NEGATIVE [facility] Comment:Document delivery by [place] on behalf of [facility] PH - OUTSIDE LAB 6.0 6.0 - 7.5 [facility] Comment:Document delivery by [place] on behalf of [facility] PROTEIN-OUTSIDE LAB TRACE(A) NEGATIVE [facility] Comment:Document delivery by [place] on behalf of [facility] URINE GLUCOSE-OUTSIDE LAB NEGATIVE NEGATIVE [facility] Comment:Document delivery by [place] on behalf of [facility] KETONE - OUTSIDE LAB NEGATIVE NEGATIVE [facility] Comment:Document delivery by [place] on behalf of [facility] UROBILINOGEN - OUTSIDE LAB NORMAL NORMAL E.U./DL [facility] Comment:Document delivery by [place] on behalf of [facility] BILIRUBIN-OUTSID E LAB NEGATIVE NEGATIVE [facility] Comment:Document delivery by [place] on behalf of [facility] BLOOD - OUTSIDE LAB NEGATIVE NEGATIVE [facility] Comment:Document delivery by [place] on behalf of [facility] WBC-U - OUTSIDE LAB TNTC(A) 0-5/HPF /HPF [facility] Comment:Document delivery by [place] on behalf of [facility] RBC-U - OUTSIDE LAB 3-5 0-5/HPF /HPF [facility] Comment:Document delivery by [place] on behalf of [facility] BACTERIA - OUTSIDE LAB 1+(A) NONE SEEN [facility] Comment:Document delivery by [place] on behalf of [facility] SQUAMOUS - OUTSIDE LAB 0-2 0-5/HPF /HPF [facility] Comment:Document delivery by [place] on behalf of [facility] 03/19/2023 2:23 PM EDT No Physician Data Unknown LAB URINE RAFAEL HERNANDEZ [facility] [address] [place] [address] documented in this encounter Advance Directives Latest [...] the patient have Health Care Power of Operator Catalyst Concentration? No Care Teams Supermarket Manager Relationship Specialty Start Date End Date Vinod Pang Jr., DO [address] [facility] J[place]IE Nielson [address] PCP - General 04/26/09 documented as of this encounter
--- OUTSIDE RECORDS SUMMARY | 2023-08-21 23:56 | External Medical Summary | Continuity of Care Document ---
Author Name MIGEL YING DO Address [address], [place] [address] Phone [phone] Organization [facility] Address [address], [place] [address] Phone [phone] Care Team Providers Care Mechatronics Engineer Name Role Phone GI - Gastroenterology Care Team Information Rece Fermín Harrell MD Care Team Information Receiv er [phone] Rory Hodge Care Team Information Crop Grain Or Livestock Farmer [phone] Nixon Aden MD Care Team Information [employer] Livestock Farmer [phone] Abran Eugene JR - Interven tional Pain Medicine Care Team Information [employer] Livestock Farmer [phone] Medardo Trinidad MD Care Team Information Receive r [phone] Sinan Marks MD Care Team Information Receive r [phone] Problems Active Problems Provider Date Chronic kidney disease stage 4 O nset: Note: Document: 02/14/19 - N ephrology Consult Essential hypertension Vinod Pang JR, DO Onset: 09/01/2015 Anemia Vinod Pang JR, DO Onset: 02/23/2009 Peripheral vascular disease Vinod Pang JR , DO Onset: 06/24/2009 Mixed hyperlipidemia Vinod Pagn JR, DO On set: 09/01/2015 Pure hypercholesterolemia [...] [facility] (Cu rrent) Use Encounter Vinod Pang JR, [...] Indications Order ing Provider Date Nitrofurantoin Monohyd [id number] Capsules take 1 capsule twice daily for 10 days 20caps Gisella Lisa MD, PhD 03/23/2023 Clopidogrel Xfthmzjfp59xd Tablets Take One (1) Tablet By Mouth Every Day 30tabs I73.9 Vinod Pang JR, DO 08/24/2021 Citalopram Frfcsypsnphf73bc Tablets Take One (1) Tablet By Mouth Every Day 90tabs F33.1 Vinod Pang JR, DO 06/23/2019 Ribxotpbqsn1mp Tablets Take One Tablet By Mouth Once Daily 30tabs Vinod Pang JR, DO 11/12/2017 Oxycodone-Acetaminophen 7.5-325mg Tablets take one tablet every 6 h as needed pain--ongoing therapy 60tabs Vinod Pang JR, DO 01/22/2014 Atorvastatin Yatwmaa87dx Tablets Take One Tablet By Mouth AT Bedtime 90tabs E78.0 Vinod Pang JR, DO E78.00 Jonumg91070Tvqs/ML Solution 40,000 units monthly Unknown Albuterol Sulfate VEP819(90B ase) mcg/Act Aerosol 2 puffs by mouth every 4-6 hours as needed wheezing Unknown Owjjlubggf01ue Tablets 1 by mouth twice a day 180tabs Unknown Pantoprazole Qmfwic52gz Tabl ets DR 1 by mouth every day Unknown 000 Aaemour9tc Tablets 1 by mouth twice a day Unknown Bumetanide0.5mg Tablets 1 or 2 by mouth every day as needed Unknown Tamsulosin HCL0.4mg Capsules 1 by mouth every day Unknown History Medications Ivnvutomoz035zr Tablets take 1 tab by mouth twice [...] CPT Code Status Date Vaccine Lot # [id number] Given 10/04/2022 Influenza Vaccine High Do se 0.5ML [id number] U-FLU Given 10/04/2022 Influenza,Unspecified U-FLU Given 08/11/2020 Influenza,Unspecified 90221 Given 08/11/2020 Influenza Vacci ne-Administered at another facility U-FLU Given 08/23/2019 Influenza,Unspecified 30704 Given 08/23/2019 Influenza Vacci ne-Administered at another facility 27603 Given 07/11/2018 Influenza Vac, Split, Preservative Free High Dose Age 65 & > [id number] 90813 Given 10/02/2017 Pneumococcal Conjugate-Pr evnar 13 42231 Given 10/02/2017 Influenza Vac, Split, Preservative Free High Dose Age 65 & > 62777 Given 08/14/2016 Influenza Virus Vaccine, Quadrivalent, Im Use [id number] 70786 Given 09/01/2015 Influenza Vac, Split, Preservative Free High Dose Age 65 & > [id number] 04190 Given 09/01/2015 Pneumococcal Conjugate-Pr evnar 13 [id number] 43875 Given 07/21/2014 Influenza Vac, Split, Preservative Free High Dose Age 65 & > [id number] U-FLU Given 07/21/2014 Influenza,Unspecified 67805 Given 01/31/2014 Pneumococcal Vaccine/Pneu movax 23 41463 Given 07/17/2013 Influenza Vac, Split, Preservative Free High Dose Age 65 & > [id number] 63522 Given 07/24/2012 Influenza Vac, Split, Preservative Free High Dose Age 65 & > [id number] 77225 Given 07/04/2011 Influenza Vac, Split, Preservative Free High Dose Age 65 & > [id number] 88737 Given 08/16/2010 Pneumococcal Vaccine/Pneu movax 23 [id number] 51128 Given 10/21/2009 Influenza Vac, Split 3 Yr s And Up [id number] 06190 Given 07/24/2008 Influenza Vac, Split 3 Yr s And Up U-FLU Given 07/22/2008 Influenza,Unspecified 49244 Given 10/27/2004 Influenza Vac, Split 3 Yr s And Up 65875 Given 07/22/2004 Pneumococcal Vaccine/Pneu movax 23 58752 Refused 07/26/2021 Moderna Sars-Co v-2 (Covid-19) vaccine, 100 mcg/ 0.5 mL 12Y+ 00408 Refused 09/28/2020 Tdap (Tetanus, diphtheria & acel. pertussis) Adacel or Boostrix 93301 Refused 09/28/2020 Shingrix 62337 Refused 08/19/2020 Influenza Virus Vaccine, Quadrivalent, Im Use 28150 Refused 07/11/2016 Influenza Vac, Split, Preservative Free [...] H/L Range N ote Urine Culture 03/19/2023 [facility] [address] [place] [address] [phone] Urine Source URINE Total Col Count >100,000 COL/CC Laboratory test finding 03/19/2023 [facility] [address] [place] [address] [phone] BNP 904.0 pg/mL Critical high 0.0-100.0 BMP 03/19/2023 [facility] [address] [place], [place] [id number] [phone] Glucose 132 mg/dL High 70-110 BUN 43 mg/dL High 6-25 Creatinine 3.1 mg/dL Critical high 0.7-1.3 1 Sodium 141 mEq/L 135-145 Potassium 4.0 mEq/L 3.5-5.0 Chloride 105 mEq/L 95-107 Co-2 22 mEq/L Low 24-31 Calcium 9.1 mg/dL 8.5-10.6 GFR 21 ML/MIN/1.73SQM Low >60 Laboratory test finding 03/19/2023 [facility] (In Office Test) Sars Rna QL PCR - In Office Not Detected. Urinalysis 03/19/2023 [facility] [address] [place], [place] [id number] [phone] Color LIGHT-YELLOW Appearance CLEAR Clear Spec.Grav. 1.010 1.005-1.025 Leukocytes LARGE Abnormal Negative Nitrite NEGATIVE Negative PH 6.0 6.0-7.5 Protein TRACE Abnormal Negative Urine Glucose NEGATIVE Negative Ketone NEGATIVE Negative Urobilinogen NORMAL E.U./DL Normal Bilirubin NEGATIVE Negative Blood NEGATIVE Negative WBC-U TNTC /HPF Abnormal 0-5/HPF RBC-U 3-5 /HPF 0-5/HPF Bacteria 1+ Abnormal None Seen Squamous 0-2 /HPF 0-5/HPF Urine Isolate#1 03/19/2023 [facility] [address] [place] [address] [phone] Isolate #1 Enterococcus mar <SEE NOTE> 2 Ampicillin >8 R Ciprofloxacin >2 R Levofloxacin >4 R Linezolid <=2 S Nitrofurantoin <=32 S Penicillin >8 R Rifampim >2 R Tetracycline >8 R Vancomycin >16 R CBC W/Diff 03/19/2023 [facility] [address] [place] [address] [phone] WBC 6.3 10^3/M3 3.1-9.2 RBC 3.06 10^6/M3 Low 4.00-5.80 HGB 9.0 GR/DL Low 12.5-17.5 HCT 29.4 % Low 37.5-52.5 MCV 95.8 CUMICR 82.6-95.8 MCH 29.4 PICOGR 27.9-32.9 MCHC 30.7 % Low 32.6-35.4 RDW 17.6 % High 11.4-14.6 PLT 266 10^3/M3 140-350 MPV 8.2 CUMICR 7.0-10.6 %Neut 76.3 % High 40.0-75.0 %Lymph 7.3 % Low 17.0-45.0 %Durham 8.7 % 1.0-11.0 %Eos 7.0 % High 0.0-6.0 %Baso 0.7 % 0.0-2.0 #Neut 4.8 10^3/M3 1.5-8.0 #Lymph 0.5 10^3/M3 Low 0.8-3.2 #Durham 0.5 10^3/M3 0.0-0.8 #Eos 0.4 10^3/m3 0.0-0.4 #Baso 0.0 10^3/m3 0.0-0.2 Renal Panel 02/28/2023 [facility] [address] [place] [address] [phone] Glucose 96 mg/dL 70-110 3 BUN 56 mg/dL High 6-25 Creatinine 2.9 mg/dL High 0.7-1.3 Sodium 142 mEq/L 135-145 Potassium 4.4 mEq/L 3.5-5.0 Chloride 109 mEq/L High 95-107 Co-2 23 mEq/L Low 24-31 Calcium 8.4 mg/dL Low 8.5-10.6 Phosphorus 3.3 mg/dL 2.5-4.8 Albumin 3.5 g/dL 3.0-5.2 GFR 22 Low >60 Laboratory test finding 02/28/2023 [facility] [address] [place] [address] [phone] Vitd-25Oh 46 ng/mL 30-100 CBC No Diff 02/28/2023 [facility] [address] [place] [address] [phone] WBC 5.9 10^3/M3 3.1-9.2 RBC 2.90 10^6/M3 Low 4.00-5.80 HGB 8.6 GR/DL Low 12.5-17.5 HCT 27.9 % Low 37.5-52.5 MCV 96.3 CUMICR High 82.6-95.8 MCH 29.6 PICOGR 27.9-32.9 MCHC 30.8 % Low 32.6-35.4 RDW 18.5 % High 11.4-14.6 PLT 238 10^3/M3 140-350 MPV 8.0 CUMICR 7.0-10.6 Laboratory test finding 02/13/2023 [facility] [address] [place] [address] [phone] Magnesium 2.1 mg/dL 1.7-2.8 4 H & H 02/13/2023 [facility] [address] [place] [address] [phone] HGB 9.9 GR/DL Low 12.5-17.5 HCT 30.6 % Low 37.5-52.5 Laboratory test finding 02/13/2023 [facility] [address] [place] [address] [phone] BNP 490.0 pg/mL Critical high 0.0-100.0 5 BMP 02/13/2023 [facility] [address] [place] [address] [phone] Glucose 99 mg/dL 70-110 6 BUN 59 mg/dL High 6-25 Creatinine 3.0 mg/dL High 0.7-1.3 Sodium 142 mEq/L 135-145 Potassium 3.8 mEq/L 3.5-5.0 Chloride 106 mEq/L 95-107 Co-2 27 mEq/L 24-31 Calcium 9.0 mg/dL 8.5-10.6 GFR 22 Low >60 Renal Panel 02/05/2023 [facility] [address] [place] [address] [phone] Glucose 104 mg/dL 70-110 7 BUN 42 mg/dL High 6-25 Creatinine 3.0 mg/dL High 0.7-1.3 Sodium 150 mEq/L High 135-145 Potassium 4.9 mEq/L 3.5-5.0 Chloride 114 mEq/L High 95-107 Co-2 25 mEq/L 24-31 Calcium 8.9 mg/dL 8.5-10.6 Phosphorus 3.7 mg/dL 2.5-4.8 Albumin 3.8 g/dL 3.0-5.2 GFR 22 Low >60 Laboratory test finding 02/05/2023 [facility] [address] [place] [address] [phone] Vitd-25Oh 38 ng/mL 30-100 CBC No Diff 02/05/2023 [facility] [address] [place], [place] [id number] [phone] WBC 5.1 10 3.1-9.2 RBC 3.28 10 Low 4.00-5.80 HGB 9.6 GR/DL Low 12.5-17.5 HCT 30.9 % Low 37.5-52.5 MCV 94.4 CUMICR 82.6-95.8 MCH 29.3 PICOGR 27.9-32.9 MCHC 31.1 % Low 32.6-35.4 RDW 17.8 % High 11.4-14.6 PLT 195 10 140-350 MPV 8.2 CUMICR 7.0-10.6 Renal Panel 11/09/2022 [facility] [address] [place] [address] [phone] Glucose 96 mg/dL 70-110 8 BUN 50 mg/dL High 6-25 Creatinine 3.4 mg/dL Critical high 0.7-1.3 9 Sodium 141 mEq/L 135-145 Potassium 4.5 mEq/L 3.5-5.0 Chloride 108 mEq/L High 95-107 Co-2 21 mEq/L Low 24-31 Calcium 8.9 mg/dL 8.5-10.6 Phosphorus 4.3 mg/dL 2.5-4.8 Albumin 3.7 g/dL 3.0-5.2 GFR 19 Low >60 Laboratory test finding 11/09/2022 [facility] [address] [place] [address] [phone] Ferritin 64.20 ng/mL 22.00-415.0 CBC No Diff 11/09/2022 [facility] [address] [place], [place] [address] [phone] WBC 7.2 10 3.1-9.2 RBC 3.66 10 Low 4.00-5.80 HGB 11.3 GR/DL Low 12.5-17.5 HCT 35.1 % Low 37.5-52.5 MCV 96.0 CUMICR High 82.6-95.8 MCH 30.9 PICOGR 27.9-32.9 MCHC 32.2 % Low 32.6-35.4 RDW 16.7 % High 11.4-14.6 PLT 243 10 140-350 MPV 7.7 CUMICR 7.0-10.6 Iron Panel([employer]) 11/09/2022 [facility] [address] [place] [address] [phone] Iron 80 g /dL 45-140 10 % Saturation 24 % Low 30-35 Tibc 11/09/2022 [facility] [address] [place], [place] [phone] Tibc 337 g /dL 260-400 Transferrin 241 mg/dL 200-400 Comp. Met 10/03/2022 [facility] [address] [place], [place] [id number] [phone] Glucose 100 mg/dL 70-110 BUN 46 mg/dL [...] 2.0-3.4 GFR 23 Low >60 Lipid 10/03/2022 [facility] [address] [place] [address] [phone] Cholesterol 139 mg/dL 0-200 11 Triglyceride 68 mg/dL 0-150 12 HDLD 52 mg/dL See Comment 13 Measured LDL 74 mg/dL 0-130 14 Calc VLDL 13.6 mg/dL See Comment 15 Chol/HDL 2.7 RATIO See Comment 16 Non-HDL 87 mg/dL See Comment 17 CBC W/Diff 10/03/2022 [facility] [address] [place] [address] [phone] WBC 6.1 10 3.1-9.2 RBC 3.60 10 Low 4.00-5.80 HGB 11.2 GR/DL Low 12.5-17.5 HCT 34.6 % Low 37.5-52.5 MCV 95.9 CUMICR High 82.6-95.8 MCH 31.2 PICOGR 27.9-32.9 MCHC 32.5 % Low 32.6-35.4 RDW 17.2 % High 11.4-14.6 PLT 298 10 140-350 MPV 7.1 CUMICR 7.0-10.6 %Neut 66.0 % 40.0-75.0 %Lymph 12.3 % Low 17.0-45.0 %[place] 11.5 % High 1.0-11.0 %Eos 9.4 % High 0.0-6.0 %Baso 0.8 % 0.0-2.0 #Neut 4.0 10 1.5-8.0 #Lymph 0.8 10 0.8-3.2 #Durham 0.7 10 0.0-0.8 #Eos 0.6 10 High 0.0-0.4 #Baso 0.0 10 0.0-0.2 Laboratory test finding 10/03/2022 [facility] [address] [place] [address] [phone] TSH 3.43 uIU/mL 0.50-6.00 FRT4 0.82 ng/dL 0.75-1.54 Iron Panel([employer]) 10/03/2022 [facility] [address] [place] [address] [phone] Iron 59 g /dL 45-140 % Saturation 18 % Low 30-35 Tibc 10/03/2022 [facility] [address] [place] [address] [phone] Tibc 328 g /dL 260-400 Transferrin 234 mg/dL 200-400 Laboratory test finding 10/03/2022 [facility] [address] [place], [place] [phone] [phone] Ferritin 122.00 ng/mL 22.00-415.0 Hba1c 10/03/2022 [facility] [address] [place], [place] [address] [phone] A1c 5.80 % 4.70-6.50 18 1 CRITICAL RESULTS LUCI IFIED, FAXED, AND CALLED TO TANK JACKSON @ 12:10. 03/20/23 2 Enterococcus faecium VRE 3 REPORT FAXED TO [facility]CT [facility], REQUESTED ON REQUISITION.03/01/23 LM 4 Please fax results agatha Baez PA-C [phone] F- [phone] 5 CRITICAL RESULTS LUCI IFIED, FAXED, AND CALLED TO LASHON HENRY @ 4:09. 02/13/23 MH 6 REPORT FAXED TO [facility], REQUESTED ON REQUISITION.02/14/23 LM 7 REPORT FAXED TO [facility], REQUESTED ON REQUISITION. 5.2.23 ESEQUIEL 8 Fax to [phone] [facility] P: [phone] 9 CRITICAL RESULTS LUCI IFIED, FAXED, AND [...] 240-10 Procedures Date Code Description Status 03/19/2023 63216 Venipuncture Routine Complet ed 02/28/2023 29499 Venipuncture Routine Complet ed 02/13/2023 56958 Venipuncture Routine Complet ed 01/15/2023 1111F D/C Medications Reconciled W/Current Medications In Outpt MR Completed 01/12/2023 1111F D/C Medications Reconciled W/Current Medications In Outpt MR Completed 11/09/2022 42547 Venipuncture Routine Complet ed 10/04/2022 G0008 Influenza Admin Completed 10/04/2022 3078F PVRP Diastolic BP <80 mmHg C ompleted 10/04/2022 3075F PVRP Systolic BP 130 To 139 MMHG Completed 10/03/2022 69339 Venipuncture Routine Complet ed Medical Devices Description No Information Available Encounters Type Date Location Provider Dx Diagnosis Office Visit 03/19/2023 1:00p [facility] Migel Vasquez Ying, DO R06.02 Shortness of breath Office Visit 01/15/2023 11:00a [facility] Pierre Costa PA-C N40.1 Benign prosta tic hyperplasia with lower urinary tract symp A41.50 Gram-negative sepsis , unspecified Office Visit 10/04/2022 10:30a [facility] DO E78.00 Pure hypercholesterolemia, unspecified E88.81 Metabolic syndrome I10 Essential (primary) hypertension I73.9 Peripheral vascular disease, unspecified 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 C83.39 Diffuse large B-cell lymphoma, extrnod and solid organ sites E03.9 Hypothyroidism, unsp ecified Z23 Encounter for immuni zation Assessments Date Code Description Provider 03/19/2023 R06.02 Shortness of breath Migel huntht, DO 02/28/2023 N17.9 Acute kidney failure, unspec ified Vinod Pang JR, DO 02/28/2023 N17.9 Acute kidney failure, unspec ified Lab - [facility] 02/28/2023 E55.9 Vitamin D deficiency, unspec ified Vinod Pang JR, DO 02/28/2023 E55.9 Vitamin D deficiency, unspec ified Lab - [facility] 02/28/2023 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, stag e 4 (severe) Vinod Pang JR, DO 02/28/2023 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, stag e 4 (severe) Lab - [facility] 02/13/2023 I50.9 Heart failure, unspecified K dusty Pang JR, DO 02/13/2023 I50.9 Heart failure, unspecified L ab - [facility] 02/13/2023 E11.21 Type 2 diabetes mellitus with diabetic nephropathy Vinod Pang JR, DO 02/05/2023 N17.9 Acute kidney failure, unspec ified Vinod Pang JR, DO 02/05/2023 N17.9 Acute kidney failure, unspec ified Lab - [facility] 02/05/2023 E55.9 Vitamin D deficiency, unspec ified Vinod Pang JR, DO 02/05/2023 E55.9 Vitamin D deficiency, unspec ified Lab - [facility] 02/05/2023 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, stag e 4 (severe) Vinod Pang JR, DO 02/05/2023 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, stag e 4 (severe) Lab - [facility] 01/15/2023 N40.1 Benign prostatic hyperplasia with lower urinary tract symptoms Pierre Costa PA-C 01/15/2023 A41.50 Gram-negative sepsis, unspec ified Pierre Costa PA-C 11/09/2022 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, stag e 4 (severe) Vinod Pang JR, DO 11/09/2022 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, stag e 4 (severe) Lab - [facility] 11/09/2022 D64.9 Anemia, unspecified Vinod Pang JR, [...] hyperp arathyroidism of renal origin Lab - [facility] 10/03/2022 E78.00 Pure hypercholesterolemia, u nspecified Vinodriya Pang JR, DO 10/03/2022 E78.00 Pure hypercholesterolemia, u nspecified Lab - [facility] 10/03/2022 E88.81 Metabolic syndrome Vinod Pang JR, DO 10/03/2022 E88.81 Metabolic syndrome Lab - [place] 10/03/2022 E11.21 Type 2 diabetes mellitus with diabetic nephropathy Vinod Pang JR, DO Plan of Treatment Future Appointment(s):* 04/11/2023 9:00 am - Vinod Pang JR DO at [facility] * 04/04/2023 6:30 am - Lab - [facility] 03/19/2023 - Migel Ying, DO* R06.02 Shortness of breath* Comments:* Patient [...] for Referral Status Appt Didi Silva [address] [place] [address] Dr Hunter 7 [phone]
--- OUTSIDE RECORDS SUMMARY | 2023-08-21 23:56 | External Medical Summary | Continuity of Care Document ---
Author Name MIGEL YING DO Address [address], [place] [address] Phone [phone] Organization [facility] Address [address], [place] [address] Phone [phone] Care Team Providers Care Rubber Thread Spooler Name Role Phone GI - Gastroenterology Care Team Information Rece Fermín Harrell MD Care Team Information Receiv er [phone] Rory Hodge Care Team Information Software Test Manager [phone] Nixon Aden MD Care Team Information Software Test Manager [phone] Abran Eugene JR - Interven tional Pain Medicine Care Team Information Software Test Manager [phone] Medardo Trinidad MD Care Team Information Receive r [phone] Sinan Marks MD Care Team Information Receive r [phone] Problems Active Problems Provider Date Chronic kidney [...] Pang JR, DO On set: 09/01/2015 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 Care Home (Cu rrent) Use Encounter Vinod Pang JR, [...] SIG Qnty Indications Ordering Provider Date Clopidogrel Upomvurez31vm Tablets Take One (1) Tablet By Mouth Every Day 30tabs I73.9 Vinod Pang JR, DO 08/24/2021 Citalopram Mifnrfppbreb29gw Tablets Take One (1) Tablet By Mouth Every Day 90tabs F33.1 Vinod Pang JR, DO 06/23/2019 Bwcfmpzupvi1ts Tablets Take One Tablet By Mouth Once Daily 30tabs Vinod Pang JR, DO 11/12/2017 Oxycodone-Acetaminophe n7.5-325mg Tablets take one tablet every 6 h as needed pain 60tabs Vinod Pang JR, DO 01/22/2014 Atorvastatin Unvbjfa90ic Tablets Take One Tablet By Mouth AT Bedtime 90tabs E78.0 Vinod Pang JR, DO E78.00 Sdgyqg38564Gcfc/ML Solution 40,000 units monthly Unknown Albuterol Sulfate HIS771(90B ase) mcg/Act Aerosol 2 puffs by mouth every 4-6 hours as needed wheezing Unknown Mgtvjtabej30gf Tablets 1 by mouth twice a day 180tabs Unknown Pantoprazole Kqctlg62fr Tabl ets DR 1 by mouth every day Unknown 000 Vuccfkz9sx Tablets 1 by mouth twice a day Unknown Bumetanide0.5mg Tablets 1 or 2 by mouth every day as needed Unknown Tamsulosin HCL0.4mg Capsules 1 by mouth every day Unknown History Medications Ysoedxsefo678uu Tablets take 1 tab by mouth twice [...] CPT Code Status Date Vaccine Lot # [id number] Given 10/04/2022 Influenza Vaccine High Do se 0.5ML [id number] U-FLU Given 08/11/2020 Influenza,Unspecified 58825 Given 08/11/2020 Influenza Vacci ne-Administered at another facility U-FLU Given 08/23/2019 Influenza,Unspecified 30177 Given 08/23/2019 Influenza Vacci ne-Administered at another facility 23542 Given 07/11/2018 Influenza Vac, Split, Preservative Free High Dose Age 65 & > [id number] 77683 Given 10/02/2017 Pneumococcal Conjugate-Pr evnar 13 43908 Given 10/02/2017 Influenza Vac, Split, Preservative Free High Dose Age 65 & > [id number] Given 08/14/2016 Influenza Virus Vaccine, Quadrivalent, Im Use [id number] 74137 Given 09/01/2015 Influenza Vac, Split, Preservative Free High Dose Age 65 & > [id number] 54038 Given 09/01/2015 Pneumococcal Conjugate-Pr evnar 13 [id number] 50207 Given 07/21/2014 Influenza Vac, Split, Preservative Free High Dose Age 65 & > [id number] U-FLU Given 07/21/2014 Influenza,Unspecified 63723 Given 01/31/2014 Pneumococcal Vaccine/Pneu movax 23 73612 Given 07/17/2013 Influenza Vac, Split, Preservative Free High Dose Age 65 & > [id number] 44993 Given 07/24/2012 Influenza Vac, Split, Preservative Free High Dose Age 65 & > [id number] 33297 Given 07/04/2011 Influenza Vac, Split, Preservative Free High Dose Age 65 & > [id number] 05956 Given 08/16/2010 Pneumococcal Vaccine/Pneu movax 23 [id number] 24695 Given 10/21/2009 Influenza Vac, Split 3 Yr s And Up [id number] 31708 Given 07/24/2008 Influenza Vac, Split 3 Yr s And Up U-FLU Given 07/22/2008 Influenza,Unspecified 78061 Given 10/27/2004 Influenza Vac, Split 3 Yr s And Up 44975 Given 07/22/2004 Pneumococcal Vaccine/Pneu movax 23 [id number] Refused 07/26/2021 Moderna Sars-Co v-2 (Covid-19) vaccine, 100 mcg/ 0.5 mL 12Y+ 30335 Refused 09/28/2020 Tdap (Tetanus, diphtheria & acel. pertussis) Adacel or Boostrix 25174 Refused 09/28/2020 Shingrix 11856 Refused 08/19/2020 Influenza Virus Vaccine, Quadrivalent, Im Use 21951 Refused 07/11/2016 Influenza Vac, Split, Preservative Free [...] Range N ote Laboratory test finding 03/19/2023 [facility] (In Office Test) Sars Rna QL PCR - In Office Not Detected. Laboratory test finding 03/19/2023 [facility] [address] [place] [address] [phone] BNP <pending> Renal Panel 02/28/2023 [facility] [address] [place] [address] [phone] Glucose 96 mg/dL 70-110 1 BUN 56 mg/dL High 6-25 Creatinine 2.9 mg/dL High 0.7-1.3 Sodium 142 mEq/L 135-145 Potassium 4.4 mEq/L 3.5-5.0 Chloride 109 mEq/L High 95-107 Co-2 23 mEq/L Low 24-31 Calcium 8.4 mg/dL Low 8.5-10.6 Phosphorus 3.3 mg/dL 2.5-4.8 Albumin 3.5 g/dL 3.0-5.2 GFR 22 Low >60 CBC No Diff 02/28/2023 [facility] [address] [place], [place] [id number] [phone] WBC 5.9 10^3/M3 3.1-9.2 RBC 2.90 10^6/M3 Low 4.00-5.80 HGB 8.6 GR/DL Low 12.5-17.5 HCT 27.9 % Low 37.5-52.5 MCV 96.3 CUMICR High 82.6-95.8 MCH 29.6 PICOGR 27.9-32.9 MCHC 30.8 % Low 32.6-35.4 RDW 18.5 % High 11.4-14.6 PLT 238 10^3/M3 140-350 MPV 8.0 CUMICR 7.0-10.6 Laboratory test finding 02/28/2023 [facility] [address] [place] [address] [phone] Vitd-25Oh 46 ng/mL 30-100 Laboratory test finding 02/13/2023 [facility] [address] [place] [address] [phone] Magnesium 2.1 mg/dL 1.7-2.8 2 BMP 02/13/2023 [facility] [address] [place] [address] [phone] Glucose 99 mg/dL 70-110 3 BUN 59 mg/dL High 6-25 Creatinine 3.0 mg/dL High 0.7-1.3 Sodium 142 mEq/L 135-145 Potassium 3.8 mEq/L 3.5-5.0 Chloride 106 mEq/L 95-107 Co-2 27 mEq/L 24-31 Calcium 9.0 mg/dL 8.5-10.6 GFR 22 Low >60 Laboratory test finding 02/13/2023 [facility] [address] [place] [address] [phone] BNP 490.0 pg/mL Critical high 0.0-100.0 4 H & H 02/13/2023 [facility] [address] [place] [address] [phone] HGB 9.9 GR/DL Low 12.5-17.5 HCT 30.6 % Low 37.5-52.5 Laboratory test finding 02/05/2023 [facility] [address] [place] [address] [phone] Vitd-25Oh 38 ng/mL 30-100 CBC No Diff 02/05/2023 [facility] [address] [place], [place] [address] [phone] WBC 5.1 10 3.1-9.2 RBC 3.28 10 Low 4.00-5.80 HGB 9.6 GR/DL Low 12.5-17.5 HCT 30.9 % Low 37.5-52.5 MCV 94.4 CUMICR 82.6-95.8 MCH 29.3 PICOGR 27.9-32.9 MCHC 31.1 % Low 32.6-35.4 RDW 17.8 % High 11.4-14.6 PLT 195 10 140-350 MPV 8.2 CUMICR 7.0-10.6 Renal Panel 02/05/2023 [facility] [address] [place] [address] [phone] Glucose 104 mg/dL 70-110 5 BUN 42 mg/dL High 6-25 Creatinine 3.0 mg/dL High 0.7-1.3 Sodium 150 mEq/L High 135-145 Potassium 4.9 mEq/L 3.5-5.0 Chloride 114 mEq/L High 95-107 Co-2 25 mEq/L 24-31 Calcium 8.9 mg/dL 8.5-10.6 Phosphorus 3.7 mg/dL 2.5-4.8 Albumin 3.8 g/dL 3.0-5.2 GFR 22 Low >60 Renal Panel 11/09/2022 [facility] [address] [place], [place] [id number] [phone] Glucose 96 mg/dL 70-110 6 BUN 50 mg/dL High 6-25 Creatinine 3.4 mg/dL Critical high 0.7-1.3 7 Sodium 141 mEq/L 135-145 Potassium 4.5 mEq/L 3.5-5.0 Chloride 108 mEq/L High 95-107 Co-2 21 mEq/L Low 24-31 Calcium 8.9 mg/dL 8.5-10.6 Phosphorus 4.3 mg/dL 2.5-4.8 Albumin 3.7 g/dL 3.0-5.2 GFR 19 Low >60 Laboratory test finding 11/09/2022 [facility] [address] [place], [place] [id number] [phone] Ferritin 64.20 ng/mL 22.00-415.0 CBC No Diff 11/09/2022 [facility] [address] [place] [address] [phone] WBC 7.2 10 3.1-9.2 RBC 3.66 10 Low 4.00-5.80 HGB 11.3 GR/DL Low 12.5-17.5 HCT 35.1 % Low 37.5-52.5 MCV 96.0 CUMICR High 82.6-95.8 MCH 30.9 PICOGR 27.9-32.9 MCHC 32.2 % Low 32.6-35.4 RDW 16.7 % High 11.4-14.6 PLT 243 10 140-350 MPV 7.7 CUMICR 7.0-10.6 Iron Panel([employer]) 11/09/2022 [facility]. [address] [place] [address] [phone] Iron 80 g /dL 45-140 8 % Saturation 24 % Low 30-35 Tibc 11/09/2022 [facility] [address] [place] [address] [phone] Tibc 337 g /dL 260-400 Transferrin 241 mg/dL 200-400 Comp. Met 10/03/2022 [facility] [address] [place], [place] [address] [phone] Glucose 100 mg/dL 70-110 BUN 46 mg/dL [...] 2.0-3.4 GFR 23 Low >60 Lipid 10/03/2022 [facility] [address] [place] [address] [phone] Cholesterol 139 mg/dL 0-200 9 Triglyceride 68 mg/dL 0-150 10 HDLD 52 mg/dL See Comment 11 Measured LDL 74 mg/dL 0-130 12 Calc VLDL 13.6 mg/dL See Comment 13 Chol/HDL 2.7 RATIO See Comment 14 Non-HDL 87 mg/dL See Comment 15 CBC W/Diff 10/03/2022 [facility] [address] [place] [address] [phone] WBC 6.1 10 3.1-9.2 RBC 3.60 10 Low 4.00-5.80 HGB 11.2 GR/DL Low 12.5-17.5 HCT 34.6 % Low 37.5-52.5 MCV 95.9 CUMICR High 82.6-95.8 MCH 31.2 PICOGR 27.9-32.9 MCHC 32.5 % Low 32.6-35.4 RDW 17.2 % High 11.4-14.6 PLT 298 10 140-350 MPV 7.1 CUMICR 7.0-10.6 %Neut 66.0 % 40.0-75.0 %Lymph 12.3 % Low 17.0-45.0 %[place] 11.5 % High 1.0-11.0 %Eos 9.4 % High 0.0-6.0 %Baso 0.8 % 0.0-2.0 #Neut 4.0 10 1.5-8.0 #Lymph 0.8 10 0.8-3.2 #Merced 0.7 10 0.0-0.8 #Eos 0.6 10 High 0.0-0.4 #Baso 0.0 10 0.0-0.2 Laboratory test finding 10/03/2022 [facility] [address] [place] [address] [phone] TSH 3.43 uIU/mL 0.50-6.00 FRT4 0.82 ng/dL 0.75-1.54 Iron Panel([employer]) 10/03/2022 [facility] [address] [place] [address] [phone] Iron 59 g /dL 45-140 % Saturation 18 % Low 30-35 Tibc 10/03/2022 [facility] [address] [place] [address] [phone] Tibc 328 g /dL 260-400 Transferrin 234 mg/dL 200-400 Laboratory test finding 10/03/2022 [facility] [address] [place] [address] [phone] Ferritin 122.00 ng/mL 22.00-415.0 Hba1c 10/03/2022 [facility] [address] [place] [address] [phone] A1c 5.80 % 4.70-6.50 16 1 REPORT FAXED TO DOCT OR, REQUESTED ON REQUISITION.03/01/23 LM 2 Please fax results t chandrika Baez PA-C [phone] F- [phone] REPORT FAXED TO DOCT OR, REQUESTED ON REQUISITION.02/14/23 LM 4 CRITICAL RESULTS LUCI IFIED, FAXED, AND CALLED TO LASHON HENRY @ 4:09. 02/13/23 5 REPORT FAXED TO DOCT OR, REQUESTED ON REQUISITION. 02.06.23 ESEQUIEL 6 Fax to [phone] [facility] P: [phone] 7 CRITICAL RESULTS LUCI IFIED, FAXED, AND CALLED TO AMANDA AT 4:50 PM ON 11/09/22 ALB 8 REPORT FAXED TO DOCT OR, REQUESTED ON REQUISITION.11/10/22 LM 9 CHOLESTEROL Less than 200mg/dl Low risk 201-239 mg/dl Borderline risk Equal to or greater 240mg/dl High risk CHOLESTEROL COMMENTS REPORT FAXED TO DOCTOR, REQUESTED ON REQUISITION. 10/04/22 RWW 10 TRIGLYCERIDES Less than 150mg/dl Normal 150-199mg/dl Borderline 200-499mg/dl High Greater than 500mg/dl Very High 11 HDL <40mg/dl Elevated Risk 41-59mg/dl Risk >=60mg/dl Least Risk 12 LDL <100mg/dl Optimal 100-129mg/dl Near Optimal 130-159mg/dl Borderline High 160-189mg/dl High >=190 Very High 13 VLDL Less than 30mg/dl Normal 14 CHOL/HDL <4.0 Optimal 4.0-5.0 Borderline >6.0 High Risk 15 NON-HDL 30mg/dl higher than LDL Target 16 MEAN GLUCOSE IN mg/d L/A1c% POOR CONTROL FAIR CONTROL GOOD CONTROL EXCELLENT CONTROL 360-14 210-9 180-8 120-6 330-13 150-7 90-5 300-12 270-11 240-10 Procedures Date Code Description Status 03/19/2023 89226 Venipuncture Routine Complet ed 02/28/2023 78026 Venipuncture Routine Complet ed 02/13/2023 13035 Venipuncture Routine Complet ed 01/15/2023 1111F D/C Medications Reconciled W/Current Medications In Outpt MR Completed 01/12/2023 1111F D/C Medications Reconciled W/Current Medications In Outpt MR Completed 11/09/2022 90650 Venipuncture Routine Complet ed 10/04/2022 G0008 Influenza Admin Completed 10/04/2022 3078F PVRP Diastolic BP <80 mmHg C ompleted 10/04/2022 3075F PVRP Systolic BP 130 To 139 MMHG Completed 10/03/2022 98418 Venipuncture Routine Complet ed Medical Devices Description No Information Available Encounters Type Date Location Provider Dx Diagnosis Office Visit 03/19/2023 1:00p [facility], DO R06.02 Shortness of breath Office Visit 01/15/2023 11:00a [facility] PA-C N40.1 Benign prosta tic hyperplasia with lower urinary tract symp A41.50 Gram-negative sepsis , unspecified Office Visit 10/04/2022 10:30a Kylie Pang JR, DO E78.00 Pure hypercholesterolemia, unspecified E88.81 Metabolic syndrome I10 Essential (primary) hypertension I73.9 Peripheral vascular disease, unspecified 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 C83.39 Diffuse large B-cell lymphoma, extrnod and solid organ sites E03.9 Hypothyroidism, unsp ecified Z23 Encounter for immuni zation Assessments Date Code Description Provider 03/19/2023 R06.02 Shortness of breath Migel hagen, DO 02/28/2023 N17.9 Acute kidney failure, unspec ified Vinod Pang JR, DO 02/28/2023 N17.9 Acute kidney failure, unspec ified Lab - [facility] 02/28/2023 E55.9 Vitamin D deficiency, unspec ified Vinod Pang JR, DO 02/28/2023 E55.9 Vitamin D deficiency, unspec ified Lab - [facility] 02/28/2023 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, stag e 4 (severe) Vinod Pang JR, DO 02/28/2023 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, stag e 4 (severe) Lab - [facility] 02/13/2023 I50.9 Heart failure, unspecified K dusty Pang JR, DO 02/13/2023 I50.9 Heart failure, unspecified L ab - [facility] 02/13/2023 E11.21 Type 2 diabetes mellitus with diabetic nephropathy Vinod Pang JR, DO 02/05/2023 N17.9 Acute kidney failure, unspec ified Vinod Pang JR, DO 02/05/2023 N17.9 Acute kidney failure, unspec ified Lab - [facility] 02/05/2023 E55.9 Vitamin D deficiency, unspec ified Vinod Pang JR, DO 02/05/2023 E55.9 Vitamin D deficiency, unspec ified Lab - [facility] 02/05/2023 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, stag e 4 (severe) Vinod Pang JR, DO 02/05/2023 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, stag e 4 (severe) Lab - [facility] 01/15/2023 N40.1 Benign prostatic hyperplasia with lower urinary tract symptoms Pierre Costa PA-C 01/15/2023 A41.50 Gram-negative sepsis, unspec ified Pierre Costa PA-C 11/09/2022 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, stag e 4 (severe) Vinod Pang JR, DO 11/09/2022 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, stag e 4 (severe) Lab - [facility] 11/09/2022 D64.9 Anemia, unspecified Vinod Pang JR, [...] hyperp arathyroidism of renal origin Lab - [facility] 10/03/2022 E78.00 Pure hypercholesterolemia, u nspecified Vinod Pang JR, DO 10/03/2022 E78.00 Pure hypercholesterolemia, u nspecified Lab - [facility] 10/03/2022 E88.81 Metabolic syndrome Vinod Pang JR, DO 10/03/2022 E88.81 Metabolic syndrome Lab - [facility] [place] 10/03/2022 E11.21 Type 2 diabetes mellitus with diabetic nephropathy Vinod Pang JR DO Plan of Treatment Future Appointment(s):* 04/11/2023 9:00 am - Vinod Pang JR DO at [facility] * 04/04/2023 6:30 am - [facility] 03/19/2023 - Migel Ying DO* R06.02 Shortness of breath* New Xrays:* [...] for Referral Status Appt Didi Silva [address] [place] [address] Dr Hunter 1 [phone]
--- OUTSIDE RECORDS SUMMARY | 2023-08-21 23:56 | External Medical Summary | Continuity of Care Document ---
Author Name MIGEL YING DO Address [address], [place] [address] Phone [phone] Organization [facility] Address [address], [place] [address] Phone [phone] Care Team Providers Care Parking Enforcement Specialist Name Role Phone GI - Gastroenterology Care Team Information Rece Fermín Harrell MD Care Team Information Receiv er [phone] Rory Hodge Care Team Information Stallion Manager [phone] Nixon Aden MD Care Team Information Stallion Manager [phone] Abran Eugene JR - Interven tional Pain Medicine Care Team Information Stallion Manager [phone] Medardo Trinidad MD Care Team Information Receive r [phone] Sinan Marks MD Care Team Information Receive r [phone] Problems Active Problems Provider Date Chronic kidney [...] Pang JR, DO On set: 09/01/2015 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 Custodial (Cu rrent) Use Encounter Vinod Pang JR, [...] SIG Qnty Indications Ordering Provider Date Clopidogrel Jezduxsjy62lr Tablets Take One (1) Tablet By Mouth Every Day 30tabs I73.9 Vinod Pang JR, DO 08/24/2021 Citalopram Efobtlbfylsd81lf Tablets Take One (1) Tablet By Mouth Every Day 90tabs F33.1 Vinod Pang JR, DO 06/23/2019 Rgqqdpnddfw6uj Tablets Take One Tablet By Mouth Once Daily 30tabs Vinod Pang JR, DO 11/12/2017 Oxycodone-Acetaminophe n7.5-325mg Tablets take one tablet every 6 h as needed pain 60tabs Vinod Pang JR, DO 01/22/2014 Atorvastatin Zdzfhax40zw Tablets Take One Tablet By Mouth AT Bedtime 90tabs E78.0 Vinod Pang JR, DO E78.00 Klvwut98390Mpmt/ML Solution 40,000 units monthly Unknown Albuterol Sulfate NRZ127(90B ase) mcg/Act Aerosol 2 puffs by mouth every 4-6 hours as needed wheezing Unknown Iygpmqnwwb46ln Tablets 1 by mouth twice a day 180tabs Unknown Pantoprazole Bitkvd72fu Tabl ets DR 1 by mouth every day Unknown 000 Qnjmony8nw Tablets 1 by mouth twice a day Unknown Bumetanide0.5mg Tablets 1 or 2 by mouth every day as needed Unknown Tamsulosin HCL0.4mg Capsules 1 by mouth every day Unknown History Medications Vdbxolghzh401wj Tablets take 1 tab by mouth twice [...] CPT Code Status Date Vaccine Lot # [id number] Given 10/04/2022 Influenza Vaccine High Do se 0.5ML [id number] U-FLU Given 08/11/2020 Influenza,Unspecified 87131 Given 08/11/2020 Influenza Vacci ne-Administered at another facility U-FLU Given 08/23/2019 Influenza,Unspecified 50483 Given 08/23/2019 Influenza Vacci ne-Administered at another facility 69792 Given 07/11/2018 Influenza Vac, Split, Preservative Free High Dose Age 65 & > [id number] 97504 Given 10/02/2017 Pneumococcal Conjugate-Pr evnar 13 00971 Given 10/02/2017 Influenza Vac, Split, Preservative Free High Dose Age 65 & > 49643 Given 08/14/2016 Influenza Virus Vaccine, Quadrivalent, Im Use [id number] 53967 Given 09/01/2015 Influenza Vac, Split, Preservative Free High Dose Age 65 & > [id number] 05371 Given 09/01/2015 Pneumococcal Conjugate-Pr evnar 13 [id number] 88939 Given 07/21/2014 Influenza Vac, Split, Preservative Free High Dose Age 65 & > [id number] U-FLU Given 07/21/2014 Influenza,Unspecified 88329 Given 01/31/2014 Pneumococcal Vaccine/Pneu movax 23 67205 Given 07/17/2013 Influenza Vac, Split, Preservative Free High Dose Age 65 & > [id number] 93264 Given 07/24/2012 Influenza Vac, Split, Preservative Free High Dose Age 65 & > [id number] 20166 Given 07/04/2011 Influenza Vac, Split, Preservative Free High Dose Age 65 & > [id number] 22804 Given 08/16/2010 Pneumococcal Vaccine/Pneu movax 23 [id number] 63312 Given 10/21/2009 Influenza Vac, Split 3 Yr s And Up [id number] 67048 Given 07/24/2008 Influenza Vac, Split 3 Yr s And Up U-FLU Given 07/22/2008 Influenza,Unspecified 64913 Given 10/27/2004 Influenza Vac, Split 3 Yr s And Up 88623 Given 07/22/2004 Pneumococcal Vaccine/Pneu movax 23 [id number] Refused 07/26/2021 Moderna Sars-Co v-2 (Covid-19) vaccine, 100 mcg/ 0.5 mL 12Y+ 16395 Refused 09/28/2020 Tdap (Tetanus, diphtheria & acel. pertussis) Adacel or Boostrix 17062 Refused 09/28/2020 Shingrix 70880 Refused 08/19/2020 Influenza Virus Vaccine, Quadrivalent, Im Use 10794 Refused 07/11/2016 Influenza Vac, Split, Preservative Free [...] Range N ote Laboratory test finding 03/19/2023 [facility] (In Office Test) Sars Rna QL PCR - In Office Not Detected. Laboratory test finding 03/19/2023 [facility] [address] [place] [address] [phone] BNP <pending> Renal Panel 02/28/2023 [facility] [address] [place] [address] [phone] Glucose 96 mg/dL 70-110 1 BUN 56 mg/dL High 6-25 Creatinine 2.9 mg/dL High 0.7-1.3 Sodium 142 mEq/L 135-145 Potassium 4.4 mEq/L 3.5-5.0 Chloride 109 mEq/L High 95-107 Co-2 23 mEq/L Low 24-31 Calcium 8.4 mg/dL Low 8.5-10.6 Phosphorus 3.3 mg/dL 2.5-4.8 Albumin 3.5 g/dL 3.0-5.2 GFR 22 Low >60 CBC No Diff 02/28/2023 [facility] [address] [place], [place] [id number] [phone] WBC 5.9 10^3/M3 3.1-9.2 RBC 2.90 10^6/M3 Low 4.00-5.80 HGB 8.6 GR/DL Low 12.5-17.5 HCT 27.9 % Low 37.5-52.5 MCV 96.3 CUMICR High 82.6-95.8 MCH 29.6 PICOGR 27.9-32.9 MCHC 30.8 % Low 32.6-35.4 RDW 18.5 % High 11.4-14.6 PLT 238 10^3/M3 140-350 MPV 8.0 CUMICR 7.0-10.6 Laboratory test finding 02/28/2023 [facility] [address] [place] [address] [phone] Vitd-25Oh 46 ng/mL 30-100 Laboratory test finding 02/13/2023 [facility] [address] [place] [address] [phone] Magnesium 2.1 mg/dL 1.7-2.8 2 BMP 02/13/2023 [facility] [address] [place] [address] [phone] Glucose 99 mg/dL 70-110 3 BUN 59 mg/dL High 6-25 Creatinine 3.0 mg/dL High 0.7-1.3 Sodium 142 mEq/L 135-145 Potassium 3.8 mEq/L 3.5-5.0 Chloride 106 mEq/L 95-107 Co-2 27 mEq/L 24-31 Calcium 9.0 mg/dL 8.5-10.6 GFR 22 Low >60 Laboratory test finding 02/13/2023 [facility] [address] [place] [address] [phone] BNP 490.0 pg/mL Critical high 0.0-100.0 4 H & H 02/13/2023 [facility] [address] [place] [address] [phone] HGB 9.9 GR/DL Low 12.5-17.5 HCT 30.6 % Low 37.5-52.5 Laboratory test finding 02/05/2023 [facility] [address] [place] [address] [phone] Vitd-25Oh 38 ng/mL 30-100 CBC No Diff 02/05/2023 [facility] [address] [place], [place] [phone] WBC 5.1 10 3.1-9.2 RBC 3.28 10 Low 4.00-5.80 HGB 9.6 GR/DL Low 12.5-17.5 HCT 30.9 % Low 37.5-52.5 MCV 94.4 CUMICR 82.6-95.8 MCH 29.3 PICOGR 27.9-32.9 MCHC 31.1 % Low 32.6-35.4 RDW 17.8 % High 11.4-14.6 PLT 195 10 140-350 MPV 8.2 CUMICR 7.0-10.6 Renal Panel 02/05/2023 [facility] [address] [place] [address] [phone] Glucose 104 mg/dL 70-110 5 BUN 42 mg/dL High 6-25 Creatinine 3.0 mg/dL High 0.7-1.3 Sodium 150 mEq/L High 135-145 Potassium 4.9 mEq/L 3.5-5.0 Chloride 114 mEq/L High 95-107 Co-2 25 mEq/L 24-31 Calcium 8.9 mg/dL 8.5-10.6 Phosphorus 3.7 mg/dL 2.5-4.8 Albumin 3.8 g/dL 3.0-5.2 GFR 22 Low >60 Renal Panel 11/09/2022 [facility] [address] [place], [place] [phone] Glucose 96 mg/dL 70-110 6 BUN 50 mg/dL High 6-25 Creatinine 3.4 mg/dL Critical high 0.7-1.3 7 Sodium 141 mEq/L 135-145 Potassium 4.5 mEq/L 3.5-5.0 Chloride 108 mEq/L High 95-107 Co-2 21 mEq/L Low 24-31 Calcium 8.9 mg/dL 8.5-10.6 Phosphorus 4.3 mg/dL 2.5-4.8 Albumin 3.7 g/dL 3.0-5.2 GFR 19 Low >60 Laboratory test finding 11/09/2022 [facility] [address] [place], [place] [phone] Ferritin 64.20 ng/mL 22.00-415.0 CBC No Diff 11/09/2022 [facility] [address] [place] [address] [phone] WBC 7.2 10 3.1-9.2 RBC 3.66 10 Low 4.00-5.80 HGB 11.3 GR/DL Low 12.5-17.5 HCT 35.1 % Low 37.5-52.5 MCV 96.0 CUMICR High 82.6-95.8 MCH 30.9 PICOGR 27.9-32.9 MCHC 32.2 % Low 32.6-35.4 RDW 16.7 % High 11.4-14.6 PLT 243 10 140-350 MPV 7.7 CUMICR 7.0-10.6 Iron Panel([employer]) 11/09/2022 [facility] [address] [place] [address] [phone] Iron 80 g /dL 45-140 8 % Saturation 24 % Low 30-35 Tibc 11/09/2022 [facility] [address] [place] [address] [phone] Tibc 337 g /dL 260-400 Transferrin 241 mg/dL 200-400 Comp. Met 10/03/2022 [facility] [address] [place], [place] [phone] Glucose 100 mg/dL 70-110 BUN 46 mg/dL [...] 2.0-3.4 GFR 23 Low >60 Lipid 10/03/2022 [facility] [address] [place] [address] [phone] Cholesterol 139 mg/dL 0-200 9 Triglyceride 68 mg/dL 0-150 10 HDLD 52 mg/dL See Comment 11 Measured LDL 74 mg/dL 0-130 12 Calc VLDL 13.6 mg/dL See Comment 13 Chol/HDL 2.7 RATIO See Comment 14 Non-HDL 87 mg/dL See Comment 15 CBC W/Diff 10/03/2022 [facility] [address] [place] [address] [phone] WBC 6.1 10 3.1-9.2 RBC 3.60 10 Low 4.00-5.80 HGB 11.2 GR/DL Low 12.5-17.5 HCT 34.6 % Low 37.5-52.5 MCV 95.9 CUMICR High 82.6-95.8 MCH 31.2 PICOGR 27.9-32.9 MCHC 32.5 % Low 32.6-35.4 RDW 17.2 % High 11.4-14.6 PLT 298 10 140-350 MPV 7.1 CUMICR 7.0-10.6 %Neut 66.0 % 40.0-75.0 %Lymph 12.3 % Low 17.0-45.0 %[place] 11.5 % High 1.0-11.0 %Eos 9.4 % High 0.0-6.0 %Baso 0.8 % 0.0-2.0 #Neut 4.0 10 1.5-8.0 #Lymph 0.8 10 0.8-3.2 #[place] 0.7 10 0.0-0.8 #Eos 0.6 10 High 0.0-0.4 #Baso 0.0 10 0.0-0.2 Laboratory test finding 10/03/2022 [facility] [address] [place] [address] [phone] TSH 3.43 uIU/mL 0.50-6.00 FRT4 0.82 ng/dL 0.75-1.54 Iron Panel([employer]) 10/03/2022 [facility]. [address] [place] [address] [phone] Iron 59 g /dL 45-140 % Saturation 18 % Low 30-35 Tibc 10/03/2022 [facility] [address] [place] [address] [phone] Tibc 328 g /dL 260-400 Transferrin 234 mg/dL 200-400 Laboratory test finding 10/03/2022 [facility] [address] [place] [address] [phone] Ferritin 122.00 ng/mL 22.00-415.0 Hba1c 10/03/2022 [facility] [address] [place] [address] [phone] A1c 5.80 % 4.70-6.50 16 1 REPORT FAXED TO [facility], REQUESTED ON REQUISITION.03/01/23 LM 2 Please fax results t chandrika Baez PA-C [phone] F- [phone] 3 REPORT FAXED TO [facility], REQUESTED ON REQUISITION.02/14/23 LM 4 CRITICAL RESULTS LUCI IFIED, FAXED, AND CALLED TO LASHON HENRY @ 4:09. 02/13/23 5 REPORT FAXED TO [facility], REQUESTED ON REQUISITION. 02.06.23 ESEQUIEL 6 Fax to [phone] [facility] P: [phone] 7 CRITICAL RESULTS LUCI IFIED, FAXED, AND [...] 240-10 Procedures Date Code Description Status 03/19/2023 65460 Venipuncture Routine Complet ed 02/28/2023 38778 Venipuncture Routine Complet ed 02/13/2023 97160 Venipuncture Routine Complet ed 01/15/2023 1111F D/C Medications Reconciled W/Current Medications In Outpt MR Completed 01/12/2023 1111F D/C Medications Reconciled W/Current Medications In Outpt MR Completed 11/09/2022 20433 Venipuncture Routine Complet ed 10/04/2022 G0008 Influenza Admin Completed 10/04/2022 3078F PVRP Diastolic BP <80 mmHg C ompleted 10/04/2022 3075F PVRP Systolic BP 130 To 139 MMHG Completed 10/03/2022 86798 Venipuncture Routine Complet ed Medical Devices Description No Information Available Encounters Type Date Location Provider Dx Diagnosis Office Visit 03/19/2023 1:00p [facility] R06.02 Shortness of breath Office Visit 01/15/2023 11:00a [facility] PA-C N40.1 Benign prosta tic hyperplasia [...] Acute kidney failure, unspec ified Lab - [facility] 02/28/2023 E55.9 Vitamin D deficiency, unspec ified Vinod Pang JR, DO 02/28/2023 E55.9 Vitamin D deficiency, unspec ified Lab - [facility] 02/28/2023 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, stag e 4 (severe) Vinod Pang JR, DO 02/28/2023 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, stag e 4 (severe) Lab - [facility] 02/13/2023 I50.9 Heart failure, unspecified K dusty Pang JR, DO 02/13/2023 I50.9 Heart failure, unspecified L ab - [facility] 02/13/2023 E11.21 Type 2 diabetes mellitus with diabetic nephropathy Vinod Pang JR, DO 02/05/2023 N17.9 Acute kidney failure, unspec ified Vinod Pang JR, DO 02/05/2023 N17.9 Acute kidney failure, unspec ified Lab - [facility] 02/05/2023 E55.9 Vitamin D deficiency, unspec ified Vinod Pang JR, DO 02/05/2023 E55.9 Vitamin D deficiency, unspec ified Lab - [facility] 02/05/2023 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, stag e 4 (severe) Vinod Pang JR, DO 02/05/2023 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, stag e 4 (severe) Lab - [facility] 01/15/2023 N40.1 Benign prostatic hyperplasia with lower urinary tract symptoms Pierre Costa PA-C 01/15/2023 A41.50 Gram-negative sepsis, unspec ified Pierre Costa PA-C 11/09/2022 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, stag e 4 (severe) Vinod Pang JR, DO 11/09/2022 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, stag e 4 (severe) Lab - [facility] 11/09/2022 D64.9 Anemia, unspecified Vinod Pang JR, [...] hyperp arathyroidism of renal origin Lab - [facility] 10/03/2022 E78.00 Pure hypercholesterolemia, u nspecified Vinod Pang JR, DO 10/03/2022 E78.00 Pure hypercholesterolemia, u nspecified Lab - [facility] 10/03/2022 E88.81 Metabolic syndrome Vinod Pang JR, DO 10/03/2022 E88.81 Metabolic syndrome Lab - [place] 10/03/2022 E11.21 Type 2 diabetes mellitus with diabetic nephropathy Vinod Pang JR DO Plan of Treatment Future Appointment(s):* 04/11/2023 9:00 am - Vinod Pang JR DO at [facility] * 04/04/2023 6:30 am - [facility] 03/19/2023 - Migel Ying DO* R06.02 Shortness [...] Referral Status Appt Didi Silva [address] [place] [address] Dr Hunter 5 [phone]
--- OUTSIDE RECORDS SUMMARY | 2023-08-21 23:56 | External Medical Summary | Continuity of Care Document ---
Author Name MIGEL YING DO Address [address], [place] [address] Phone [phone] Organization [facility] Address [address], [place] [address] Phone [phone] Care Team Providers Care Metallurgy Teacher Name Role Phone GI - Gastroenterology Care Team Information Rece Fermín Harrell MD Care Team Information Receiv er [phone] Rory Hodge Care Team Information Optician Manager [phone] Nixon Aden MD Care Team Information Optician Manager [phone] Abran Eugene JR - Interven tional Pain Medicine Care Team Information Optician Manager [phone] Medardo Trinidad MD Care Team Information Receive r [phone] Sinan Marks MD Care Team Information Receive r [phone] Problems Active Problems Provider Date Chronic kidney [...] Pang JR, DO On set: 09/01/2015 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 Longterm (Cu rrent) Use Encounter Vinod Pang JR, [...] SIG Qnty Indications Ordering Provider Date Clopidogrel Xnawzacep98xc Tablets Take One (1) Tablet By Mouth Every Day 30tabs I73.9 Vinod Pang JR, DO 08/24/2021 Citalopram Qjngfhczqwqg97zd Tablets Take One (1) Tablet By Mouth Every Day 90tabs F33.1 Vinod Pang JR, DO 06/23/2019 Kbulnpruofw3gb Tablets Take One Tablet By Mouth Once Daily 30tabs Vinod Pang JR, DO 11/12/2017 Oxycodone-Acetaminophe n7.5-325mg Tablets take one tablet every 6 h as needed pain--ongoing therapy 60tabs Vinod Pang JR, DO 01/22/2014 Atorvastatin Xktrowx23ok Tablets Take One Tablet By Mouth AT Bedtime 90tabs E78.0 Vinod Pang JR, DO E78.00 Gxcjrh62330Rexr/ML Solution 40,000 units monthly Unknown Albuterol Sulfate ROO880(90B ase) mcg/Act Aerosol 2 puffs by mouth every 4-6 hours as needed wheezing Unknown Tgvejfkbwf36vj Tablets 1 by mouth twice a day 180tabs Unknown Pantoprazole Rgkfqn35oo Tabl ets DR 1 by mouth every day Unknown 000 Qvyitqk7tq Tablets 1 by mouth twice a day Unknown Bumetanide0.5mg Tablets 1 or 2 by mouth every day as needed Unknown Tamsulosin HCL0.4mg Capsules 1 by mouth every day Unknown History Medications Hyarymyqfo724gs Tablets take 1 tab by mouth twice [...] CPT Code Status Date Vaccine Lot # [id number] Given 10/04/2022 Influenza Vaccine High Do se 0.5ML [id number] U-FLU Given 10/04/2022 Influenza,Unspecified U-FLU Given 08/11/2020 Influenza,Unspecified 18443 Given 08/11/2020 Influenza Vacci ne-Administered at another facility U-FLU Given 08/23/2019 Influenza,Unspecified 05430 Given 08/23/2019 Influenza Vacci ne-Administered at another facility 57675 Given 07/11/2018 Influenza Vac, Split, Preservative Free High Dose Age 65 & > [id number] 74794 Given 10/02/2017 Pneumococcal Conjugate-Pr evnar 13 83682 Given 10/02/2017 Influenza Vac, Split, Preservative Free High Dose Age 65 & > 12822 Given 08/14/2016 Influenza Virus Vaccine, Quadrivalent, Im Use [id number] 46827 Given 09/01/2015 Influenza Vac, Split, Preservative Free High Dose Age 65 & > [id number] 87350 Given 09/01/2015 Pneumococcal Conjugate-Pr evnar 13 [id number] 77512 Given 07/21/2014 Influenza Vac, Split, Preservative Free High Dose Age 65 & > [id number] U-FLU Given 07/21/2014 Influenza,Unspecified 25311 Given 01/31/2014 Pneumococcal Vaccine/Pneu movax 23 95425 Given 07/17/2013 Influenza Vac, Split, Preservative Free High Dose Age 65 & > [id number] 75894 Given 07/24/2012 Influenza Vac, Split, Preservative Free High Dose Age 65 & > [id number] 70731 Given 07/04/2011 Influenza Vac, Split, Preservative Free High Dose Age 65 & > [id number] 81917 Given 08/16/2010 Pneumococcal Vaccine/Pneu movax 23 [id number] 57001 Given 10/21/2009 Influenza Vac, Split 3 Yr s And Up [id number] 72827 Given 07/24/2008 Influenza Vac, Split 3 Yr s And Up U-FLU Given 07/22/2008 Influenza,Unspecified 21559 Given 10/27/2004 Influenza Vac, Split 3 Yr s And Up 47259 Given 07/22/2004 Pneumococcal Vaccine/Pneu movax 23 52890 Refused 07/26/2021 Moderna Sars-Co v-2 (Covid-19) vaccine, 100 mcg/ 0.5 mL 12Y+ 11713 Refused 09/28/2020 Tdap (Tetanus, diphtheria & acel. pertussis) Adacel or Boostrix 14410 Refused 09/28/2020 Shingrix 07999 Refused 08/19/2020 Influenza Virus Vaccine, Quadrivalent, Im Use [id number] Refused 07/11/2016 Influenza Vac, Split, Preservative Free [...] H/L Range N ote Urine Culture 03/19/2023 [facility] [address] [place] [address] [phone] Urine Source URINE Total Col Count >100,000 COL/CC Laboratory test finding 03/19/2023 [facility] [address] [place] [address] [phone] BNP 904.0 pg/mL Critical high 0.0-100.0 BMP 03/19/2023 [facility] [address] [place], [place] [id number] [phone] Glucose 132 mg/dL High 70-110 BUN 43 mg/dL High 6-25 Creatinine 3.1 mg/dL Critical high 0.7-1.3 1 Sodium 141 mEq/L 135-145 Potassium 4.0 mEq/L 3.5-5.0 Chloride 105 mEq/L 95-107 Co-2 22 mEq/L Low 24-31 Calcium 9.1 mg/dL 8.5-10.6 GFR 21 ML/MIN/1.73SQM Low >60 Laboratory test finding 03/19/2023 [facility] (In Office Test) Sars Rna QL PCR - In Office Not Detected. Urinalysis 03/19/2023 [facility] [address] [place], [place] [id number] [phone] Color LIGHT-YELLOW Appearance CLEAR Clear Spec.Grav. 1.010 1.005-1.025 Leukocytes LARGE Abnormal Negative Nitrite NEGATIVE Negative PH 6.0 6.0-7.5 Protein TRACE Abnormal Negative Urine Glucose NEGATIVE Negative Ketone NEGATIVE Negative Urobilinogen NORMAL E.U./DL Normal Bilirubin NEGATIVE Negative Blood NEGATIVE Negative WBC-U TNTC /HPF Abnormal 0-5/HPF RBC-U 3-5 /HPF 0-5/HPF Bacteria 1+ Abnormal None Seen Squamous 0-2 /HPF 0-5/HPF Urine Isolate#1 03/19/2023 [facility] [address] [place] [address] [phone] Isolate #1 Enterococcus mar <SEE NOTE> 2 Ampicillin >8 R Ciprofloxacin >2 R Levofloxacin >4 R Linezolid <=2 S Nitrofurantoin <=32 S Penicillin >8 R Rifampim >2 R Tetracycline >8 R Vancomycin >16 R CBC W/Diff 03/19/2023 [facility] [address] [place] [address] [phone] WBC 6.3 10^3/M3 3.1-9.2 RBC 3.06 10^6/M3 Low 4.00-5.80 HGB 9.0 GR/DL Low 12.5-17.5 HCT 29.4 % Low 37.5-52.5 MCV 95.8 CUMICR 82.6-95.8 MCH 29.4 PICOGR 27.9-32.9 MCHC 30.7 % Low 32.6-35.4 RDW 17.6 % High 11.4-14.6 PLT 266 10^3/M3 140-350 MPV 8.2 CUMICR 7.0-10.6 %Neut 76.3 % High 40.0-75.0 %Lymph 7.3 % Low 17.0-45.0 %Eaton 8.7 % 1.0-11.0 %Eos 7.0 % High 0.0-6.0 %Baso 0.7 % 0.0-2.0 #Neut 4.8 10^3/M3 1.5-8.0 #Lymph 0.5 10^3/M3 Low 0.8-3.2 #Eaton 0.5 10^3/M3 0.0-0.8 #Eos 0.4 10^3/m3 0.0-0.4 #Baso 0.0 10^3/m3 0.0-0.2 Renal Panel 02/28/2023 [facility] [address] [place] [address] [phone] Glucose 96 mg/dL 70-110 3 BUN 56 mg/dL High 6-25 Creatinine 2.9 mg/dL High 0.7-1.3 Sodium 142 mEq/L 135-145 Potassium 4.4 mEq/L 3.5-5.0 Chloride 109 mEq/L High 95-107 Co-2 23 mEq/L Low 24-31 Calcium 8.4 mg/dL Low 8.5-10.6 Phosphorus 3.3 mg/dL 2.5-4.8 Albumin 3.5 g/dL 3.0-5.2 GFR 22 Low >60 Laboratory test finding 02/28/2023 [facility] [address] [place] [address] [phone] Vitd-25Oh 46 ng/mL 30-100 CBC No Diff 02/28/2023 [facility] [address] [place] [address] [phone] WBC 5.9 10^3/M3 3.1-9.2 RBC 2.90 10^6/M3 Low 4.00-5.80 HGB 8.6 GR/DL Low 12.5-17.5 HCT 27.9 % Low 37.5-52.5 MCV 96.3 CUMICR High 82.6-95.8 MCH 29.6 PICOGR 27.9-32.9 MCHC 30.8 % Low 32.6-35.4 RDW 18.5 % High 11.4-14.6 PLT 238 10^3/M3 140-350 MPV 8.0 CUMICR 7.0-10.6 Laboratory test finding 02/13/2023 [facility] [address] [place] [address] [phone] Magnesium 2.1 mg/dL 1.7-2.8 4 H & H 02/13/2023 [facility] [address] [place] [address] [phone] HGB 9.9 GR/DL Low 12.5-17.5 HCT 30.6 % Low 37.5-52.5 Laboratory test finding 02/13/2023 [facility] [address] [place] [address] [phone] BNP 490.0 pg/mL Critical high 0.0-100.0 5 BMP 02/13/2023 [facility] [address] [place], [place] [address] [phone] Glucose 99 mg/dL 70-110 6 BUN 59 mg/dL High 6-25 Creatinine 3.0 mg/dL High 0.7-1.3 Sodium 142 mEq/L 135-145 Potassium 3.8 mEq/L 3.5-5.0 Chloride 106 mEq/L 95-107 Co-2 27 mEq/L 24-31 Calcium 9.0 mg/dL 8.5-10.6 GFR 22 Low >60 Renal Panel 02/05/2023 [facility] [address] [place] [address] [phone] Glucose 104 mg/dL 70-110 7 BUN 42 mg/dL High 6-25 Creatinine 3.0 mg/dL High 0.7-1.3 Sodium 150 mEq/L High 135-145 Potassium 4.9 mEq/L 3.5-5.0 Chloride 114 mEq/L High 95-107 Co-2 25 mEq/L 24-31 Calcium 8.9 mg/dL 8.5-10.6 Phosphorus 3.7 mg/dL 2.5-4.8 Albumin 3.8 g/dL 3.0-5.2 GFR 22 Low >60 Laboratory test finding 02/05/2023 [facility] [address] [place], [place] [id number] [phone] Vitd-25Oh 38 ng/mL 30-100 CBC No Diff 02/05/2023 [facility] [address] [place], [place] [address] [phone] WBC 5.1 10 3.1-9.2 RBC 3.28 10 Low 4.00-5.80 HGB 9.6 GR/DL Low 12.5-17.5 HCT 30.9 % Low 37.5-52.5 MCV 94.4 CUMICR 82.6-95.8 MCH 29.3 PICOGR 27.9-32.9 MCHC 31.1 % Low 32.6-35.4 RDW 17.8 % High 11.4-14.6 PLT 195 10 140-350 MPV 8.2 CUMICR 7.0-10.6 Renal Panel 11/09/2022 [facility] [address] [place] [address] [phone] Glucose 96 mg/dL 70-110 8 BUN 50 mg/dL High 6-25 Creatinine 3.4 mg/dL Critical high 0.7-1.3 9 Sodium 141 mEq/L 135-145 Potassium 4.5 mEq/L 3.5-5.0 Chloride 108 mEq/L High 95-107 Co-2 21 mEq/L Low 24-31 Calcium 8.9 mg/dL 8.5-10.6 Phosphorus 4.3 mg/dL 2.5-4.8 Albumin 3.7 g/dL 3.0-5.2 GFR 19 Low >60 Laboratory test finding 11/09/2022 [facility] [address] [place] [address] [phone] Ferritin 64.20 ng/mL 22.00-415.0 CBC No Diff 11/09/2022 [facility] [address] [place] [address] [phone] WBC 7.2 10 3.1-9.2 RBC 3.66 10 Low 4.00-5.80 HGB 11.3 GR/DL Low 12.5-17.5 HCT 35.1 % Low 37.5-52.5 MCV 96.0 CUMICR High 82.6-95.8 MCH 30.9 PICOGR 27.9-32.9 MCHC 32.2 % Low 32.6-35.4 RDW 16.7 % High 11.4-14.6 PLT 243 10 140-350 MPV 7.7 CUMICR 7.0-10.6 Iron Panel([employer]) 11/09/2022 [facility] [address] [place] [address] [phone] Iron 80 g /dL 45-140 10 % Saturation 24 % Low 30-35 Tibc 11/09/2022 [facility] [address] [place], [place] [address] [phone] Tibc 337 g /dL 260-400 Transferrin 241 mg/dL 200-400 Comp. Met 10/03/2022 [facility] [address] [place], [place] [id number] [phone] Glucose 100 mg/dL 70-110 BUN 46 mg/dL [...] 2.0-3.4 GFR 23 Low >60 Lipid 10/03/2022 [facility] [address] [place] [address] [phone] Cholesterol 139 mg/dL 0-200 11 Triglyceride 68 mg/dL 0-150 12 HDLD 52 mg/dL See Comment 13 Measured LDL 74 mg/dL 0-130 14 Calc VLDL 13.6 mg/dL See Comment 15 Chol/HDL 2.7 RATIO See Comment 16 Non-HDL 87 mg/dL See Comment 17 CBC W/Diff 10/03/2022 [facility] [address] [place] [address] [phone] WBC 6.1 10 3.1-9.2 RBC 3.60 10 Low 4.00-5.80 HGB 11.2 GR/DL Low 12.5-17.5 HCT 34.6 % Low 37.5-52.5 MCV 95.9 CUMICR High 82.6-95.8 MCH 31.2 PICOGR 27.9-32.9 MCHC 32.5 % Low 32.6-35.4 RDW 17.2 % High 11.4-14.6 PLT 298 10 140-350 MPV 7.1 CUMICR 7.0-10.6 %Neut 66.0 % 40.0-75.0 %Lymph 12.3 % Low 17.0-45.0 %Eaton 11.5 % High 1.0-11.0 %Eos 9.4 % High 0.0-6.0 %Baso 0.8 % 0.0-2.0 #Neut 4.0 10 1.5-8.0 #Lymph 0.8 10 0.8-3.2 #Eaton 0.7 10 0.0-0.8 #Eos 0.6 10 High 0.0-0.4 #Baso 0.0 10 0.0-0.2 Laboratory test finding 10/03/2022 [facility] [address] [place] [address] [phone] TSH 3.43 uIU/mL 0.50-6.00 FRT4 0.82 ng/dL 0.75-1.54 Iron Panel([facility]) 10/03/2022 [facility] [address] [place] [address] [phone] Iron 59 g /dL 45-140 % Saturation 18 % Low 30-35 Tibc 10/03/2022 [facility] [address] [place] [address] [phone] Tibc 328 g /dL 260-400 Transferrin 234 mg/dL 200-400 Laboratory test finding 10/03/2022 [facility] [address] [place] [address] [phone] Ferritin 122.00 ng/mL 22.00-415.0 Hba1c 10/03/2022 [facility] [address] [place] [address] [phone] A1c 5.80 % 4.70-6.50 18 1 CRITICAL RESULTS [facility] IFIED, FAXED, AND CALLED TO TANK JACKSON @ 12:10. 03/20/23 2 Enterococcus faecium VRE 3 REPORT FAXED TO DOCT [facility], REQUESTED ON REQUISITION.03/01/23 LM 4 Please fax results t o Litzy Baez PA-C [phone] F- [phone] CRITICAL RESULTS LU[facility] IFIED, FAXED, AND CALLED TO LASHON HENRY @ 4:09. 02/13/23 MH 6 REPORT FAXED TO [facility]CT [facility], REQUESTED ON REQUISITION.02/14/23 LM 7 REPORT FAXED TO [facility]CT [facility], REQUESTED ON REQUISITION. 02.06.23 ESEQUIEL 8 Fax to [phone] [facility] P: [phone] CRITICAL RESULTS LUCI IFIED, FAXED, AND [...] 240-10 Procedures Date Code Description Status 03/19/2023 44072 Venipuncture Routine Complet ed 02/28/2023 75199 Venipuncture Routine Complet ed 02/13/2023 04582 Venipuncture Routine Complet ed 01/15/2023 1111F D/C Medications Reconciled W/Current Medications In Outpt MR Completed 01/12/2023 1111F D/C Medications Reconciled W/Current Medications In Outpt MR Completed 11/09/2022 65188 Venipuncture Routine Complet ed 10/04/2022 G0008 Influenza Admin Completed 10/04/2022 3078F PVRP Diastolic BP <80 mmHg C ompleted 10/04/2022 3075F PVRP Systolic BP 130 To 139 MMHG Completed 10/03/2022 97773 Venipuncture Routine Complet ed Medical Devices Description No Information Available Encounters Type Date Location Provider Dx Diagnosis Office Visit 03/19/2023 1:00p [place] Migel Ying, DO R06.02 Shortness of breath Office Visit 01/15/2023 11:00a [place] Pierre Costa PA-C N40.1 Benign prosta tic hyperplasia with lower urinary tract symp A41.50 Gram-negative sepsis , unspecified Office Visit 10/04/2022 10:30a [place] Vinod Pang JR, DO E78.00 Pure hypercholesterolemia, [...] Acute kidney failure, unspec ified Lab - [place] 02/28/2023 E55.9 Vitamin D deficiency, unspec ified Vinod Pang JR, DO 02/28/2023 E55.9 Vitamin D deficiency, unspec ified Lab - [place] 02/28/2023 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, stag e 4 (severe) Vinod Pang JR, DO 02/28/2023 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, stag e 4 (severe) Lab - [place] 02/13/2023 I50.9 Heart failure, unspecified K dusty Pang JR, DO 02/13/2023 I50.9 Heart failure, unspecified L ab - [place] 02/13/2023 E11.21 Type 2 diabetes mellitus with diabetic nephropathy Vinod Pang JR, DO 02/05/2023 N17.9 Acute kidney failure, unspec ified Vinod Pang JR, DO 02/05/2023 N17.9 Acute kidney failure, unspec ified Lab - [place] 02/05/2023 E55.9 Vitamin D deficiency, unspec ified Vinod Pang JR, DO 02/05/2023 E55.9 Vitamin D deficiency, unspec ified Lab - [place] 02/05/2023 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, stag e 4 (severe) Vinod Pang JR, DO 02/05/2023 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, stag e 4 (severe) Lab - [place] 01/15/2023 N40.1 Benign prostatic hyperplasia with lower urinary tract symptoms Pierre Costa PA-C 01/15/2023 A41.50 Gram-negative sepsis, unspec ified Pierre Costa PA-C 11/09/2022 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, stag e 4 (severe) Vinod Pang JR, DO 11/09/2022 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, stag e 4 (severe) Lab - [place] 11/09/2022 D64.9 Anemia, unspecified Vinod Pang JR, [...] hyperp arathyroidism of renal origin Lab - [place] 10/03/2022 E78.00 Pure hypercholesterolemia, u nspecified Vinod Pang JR, DO 10/03/2022 E78.00 Pure hypercholesterolemia, u nspecified Lab - [place] 10/03/2022 E88.81 Metabolic syndrome Vinod Pang JR, DO 10/03/2022 E88.81 Metabolic syndrome Lab - [place] 10/03/2022 E11.21 Type 2 diabetes mellitus with diabetic nephropathy Vinod Pang JR, DO Plan of Treatment Future Appointment(s):* 04/11/2023 9:00 am - Vinod Pang JR, DO at [facility] * 04/04/2023 6:30 am - [facility] [place] [facility] 03/19/2023 - Migel Ying, DO* R06.02 Shortness [...] for Referral Status Appt Didi Silva [address] [place] [address] Dr Hunter [phone]
--- OUTSIDE RECORDS SUMMARY | 2023-08-21 23:56 | External Medical Summary | Summary of Care ---
Author Name Unknown Organization [facility] Address [address] [place] [address] Phone [phone] Care Team Providers Care Drama Director Name Role Phone Poly Basilio DO, Kenneth Primary Care Provider [phone] Encounter Details Date Type Department Care Team Description 03/19/2023 Hospital Encounter Radiology, [address] [place] [address] Arrived Allergies No known active allergiesdocumented [...] 650 mg. 0 Active Vitamin D, Ergocalciferol, 86284 units Capsule 50,000 Units. 0 Active ondansetron [...] Specialty Care Team Description 04/06/2023 Appointment Radiology Pending Results Name Type Priority Associated Diagnoses Date /Time XR CHEST 2 VIEWS Medical Imaging Routine Shortness of breath 03/19/2023 2:36 PM EDT Health Maintenance Due Date Last Done Comments COVID-19 Vaccine (#1) 1945 Depression Screening, Annual for Pts 12 and Over 1957 Hepatitis C Screening 1963 DTaP,Tdap,and Td Vaccines (1 - Tdap) 02/07/1964 Zoster Vaccines (1 of 2) 02/07/1964 Pneumococcal Vaccine: 65+ Years (2 - PCV) 07/22/2005 07/22/2004 GFR 02/29/2024 02/28/2023, 0506/2023, 02/05/2023, Additional history exists Albumin/Creatinine Ratio 02/08/2025 [...] the patient have Health Care Power of Chute Puller? No Care Teams Drama Director Relationship Specialty Start Date End Date Vinod Pang Jr., DO [address] [facility] [place] [address] PCP - General 04/26/09 documented as of this encounter
--- OUTSIDE RECORDS SUMMARY | 2023-08-21 23:56 | External Medical Summary | Continuity of Care Document ---
Author Name MIGEL YIGN DO Address [address], [place] [address] Phone [phone] Organization [facility] Address [address], [place] [address] Phone [phone] Care Team Providers Care Carbon Lamp Cleaner Name Role Phone GI - Gastroenterology Care Team Information Rece Fermín Harrell MD Care Team Information Receiv er [phone] Rory Hodge Care Team Information Wrestling Coach [phone] Nixon Aden MD Care Team Information Wrestling Coach [phone] Abran Eugene JR - Interven tional Pain Medicine Care Team Information Wrestling Coach [phone] Medardo Trinidad MD Care Team Information Receive r [phone] Sinan Marks MD Care Team Information Receive r [phone] Problems Active Problems Provider Date Chronic kidney [...] SIG Qnty Indications Ordering Provider Date Clopidogrel Rfcmvcuip12zy Tablets Take One (1) Tablet By Mouth Every Day 30tabs I73.9 Vinod Pang JR, DO 08/24/2021 Citalopram Opkobcvbizau95ia Tablets Take One (1) Tablet By Mouth Every Day 90tabs F33.1 Vinod Pang JR, DO 06/23/2019 Gagxtobywxg4ps Tablets Take One Tablet By Mouth Once Daily 30tabs Vinod Pang JR, DO 11/12/2017 Oxycodone-Acetaminophe n7.5-325mg Tablets take one tablet every 6 h as needed pain 60tabs Vinod Pang JR, DO 01/22/2014 Atorvastatin Cgaeuxu95qy Tablets Take One Tablet By Mouth AT Bedtime 90tabs E78.0 Vinod Pnag JR, DO E78.00 Zdfnij17426Hood/ML Solution 40,000 units monthly Unknown Albuterol Sulfate UCW935(90B ase) mcg/Act Aerosol 2 puffs by mouth every 4-6 hours as needed wheezing Unknown Agorlkjeoz24io Tablets 1 by mouth twice a day 180tabs Unknown Pantoprazole Brsnhc16uf Tabl ets DR 1 by mouth every day Unknown 000 Feldhor5al Tablets 1 by mouth twice a day Unknown Bumetanide0.5mg Tablets 1 or 2 by mouth every day as needed Unknown Tamsulosin HCL0.4mg Capsules 1 by mouth every day Unknown History Medications Srfojnjuow255qj Tablets take 1 tab by mouth twice [...] CPT Code Status Date Vaccine Lot # 34462 Given 10/04/2022 Influenza Vaccine High Do se 0.5ML 002991 U-FLU Given 10/04/2022 Influenza,Unspecified U-FLU Given 08/11/2020 Influenza,Unspecified 38991 Given 08/11/2020 Influenza Vacci ne-Administered at another facility U-FLU Given 08/23/2019 Influenza,Unspecified 50543 Given 08/23/2019 Influenza Vacci ne-Administered at another facility 35411 Given 07/11/2018 Influenza Vac, Split, Preservative Free High Dose Age 65 & > [id number] 37284 Given 10/02/2017 Pneumococcal Conjugate-Pr evnar 13 59231 Given 10/02/2017 Influenza Vac, Split, Preservative Free High Dose Age 65 & > 90550 Given 08/14/2016 Influenza Virus Vaccine, Quadrivalent, Im Use [id number] 33697 Given 09/01/2015 Influenza Vac, Split, Preservative Free High Dose Age 65 & > [id number] 24530 Given 09/01/2015 Pneumococcal Conjugate-Pr evnar 13 [id number] 47432 Given 07/21/2014 Influenza Vac, Split, Preservative Free High Dose Age 65 & > [id number] U-FLU Given 07/21/2014 Influenza,Unspecified 56845 Given 01/31/2014 Pneumococcal Vaccine/Pneu movax 23 27967 Given 07/17/2013 Influenza Vac, Split, Preservative Free High Dose Age 65 & > [id number] 88414 Given 07/24/2012 Influenza Vac, Split, Preservative Free High Dose Age 65 & > [id number] 24483 Given 07/04/2011 Influenza Vac, Split, Preservative Free High Dose Age 65 & > [id number] 91921 Given 08/16/2010 Pneumococcal Vaccine/Pneu movax 23 [id number] 24161 Given 10/21/2009 Influenza Vac, Split 3 Yr s And Up [id number] 78662 Given 07/24/2008 Influenza Vac, Split 3 Yr s And Up U-FLU Given 07/22/2008 Influenza,Unspecified 64665 Given 10/27/2004 Influenza Vac, Split 3 Yr s And Up 41261 Given 07/22/2004 Pneumococcal Vaccine/Pneu movax 23 [id number] Refused 07/26/2021 Moderna Sars-Co v-2 (Covid-19) vaccine, 100 mcg/ 0.5 mL 12Y+ [id number] Refused 09/28/2020 Tdap (Tetanus, diphtheria & acel. pertussis) Adacel or Boostrix 16256 Refused 09/28/2020 Shingrix 24641 Refused 08/19/2020 Influenza Virus Vaccine, Quadrivalent, Im Use [id number] Refused 07/11/2016 Influenza Vac, Split, Preservative Free [...] Range N ote Laboratory test finding 03/19/2023 [facility] (In Office Test) Sars Rna QL PCR - In Office Not Detected. CBC W/Diff 03/19/2023 [facility] [address] [place] [address] [phone] WBC 6.3 10^3/M3 3.1-9.2 RBC 3.06 10^6/M3 Low 4.00-5.80 HGB 9.0 GR/DL Low 12.5-17.5 HCT 29.4 % Low 37.5-52.5 MCV 95.8 CUMICR 82.6-95.8 MCH 29.4 PICOGR 27.9-32.9 MCHC 30.7 % Low 32.6-35.4 RDW 17.6 % High 11.4-14.6 PLT 266 10^3/M3 140-350 MPV 8.2 CUMICR 7.0-10.6 %Neut 76.3 % High 40.0-75.0 %Lymph 7.3 % Low 17.0-45.0 %Merrick 8.7 % 1.0-11.0 %Eos 7.0 % High 0.0-6.0 %Baso 0.7 % 0.0-2.0 #Neut 4.8 10^3/M3 1.5-8.0 #Lymph 0.5 10^3/M3 Low 0.8-3.2 #Merrick 0.5 10^3/M3 0.0-0.8 #Eos 0.4 10^3/m3 0.0-0.4 #Baso 0.0 10^3/m3 0.0-0.2 BMP 03/19/2023 [facility] [address] [place] [address] [phone] Glucose 132 mg/dL High 70-110 BUN 43 mg/dL High 6-25 Creatinine 3.1 mg/dL Critical high 0.7-1.3 1 Sodium 141 mEq/L 135-145 Potassium 4.0 mEq/L 3.5-5.0 Chloride 105 mEq/L 95-107 Co-2 22 mEq/L Low 24-31 Calcium 9.1 mg/dL 8.5-10.6 GFR 21 ML/MIN/1.73SQM Low >60 Laboratory test finding 03/19/2023 [facility] [address] [place] [address] [phone] BNP 904.0 pg/mL Critical high 0.0-100.0 Renal Panel 02/28/2023 [facility] [address] [place], [place] [id number] [phone] Glucose 96 mg/dL 70-110 2 BUN 56 mg/dL High 6-25 Creatinine 2.9 mg/dL High 0.7-1.3 Sodium 142 mEq/L 135-145 Potassium 4.4 mEq/L 3.5-5.0 Chloride 109 mEq/L High 95-107 Co-2 23 mEq/L Low 24-31 Calcium 8.4 mg/dL Low 8.5-10.6 Phosphorus 3.3 mg/dL 2.5-4.8 Albumin 3.5 g/dL 3.0-5.2 GFR 22 Low >60 CBC No Diff 02/28/2023 [facility] [address] [place], [place] [id number] [phone] WBC 5.9 10^3/M3 3.1-9.2 RBC 2.90 10^6/M3 Low 4.00-5.80 HGB 8.6 GR/DL Low 12.5-17.5 HCT 27.9 % Low 37.5-52.5 MCV 96.3 CUMICR High 82.6-95.8 MCH 29.6 PICOGR 27.9-32.9 MCHC 30.8 % Low 32.6-35.4 RDW 18.5 % High 11.4-14.6 PLT 238 10^3/M3 140-350 MPV 8.0 CUMICR 7.0-10.6 Laboratory test finding 02/28/2023 [facility] [address] [place] [address] [phone] Vitd-25Oh 46 ng/mL 30-100 Laboratory test finding 02/13/2023 [facility] [address] [place] [address] [phone] Magnesium 2.1 mg/dL 1.7-2.8 3 BMP 02/13/2023 [facility] [address] [place] [address] [phone] Glucose 99 mg/dL 70-110 4 BUN 59 mg/dL High 6-25 Creatinine 3.0 mg/dL High 0.7-1.3 Sodium 142 mEq/L 135-145 Potassium 3.8 mEq/L 3.5-5.0 Chloride 106 mEq/L 95-107 Co-2 27 mEq/L 24-31 Calcium 9.0 mg/dL 8.5-10.6 GFR 22 Low >60 Laboratory test finding 02/13/2023 [facility] [address] [place] [address] [phone] BNP 490.0 pg/mL Critical high 0.0-100.0 5 H & H 02/13/2023 [facility] [address] [place] [address] [phone] HGB 9.9 GR/DL Low 12.5-17.5 HCT 30.6 % Low 37.5-52.5 Laboratory test finding 02/05/2023 [facility] [address] [place] [address] [phone] Vitd-25Oh 38 ng/mL 30-100 CBC No Diff 02/05/2023 [facility] [address] [place] [address] [phone] WBC 5.1 10 3.1-9.2 RBC 3.28 10 Low 4.00-5.80 HGB 9.6 GR/DL Low 12.5-17.5 HCT 30.9 % Low 37.5-52.5 MCV 94.4 CUMICR 82.6-95.8 MCH 29.3 PICOGR 27.9-32.9 MCHC 31.1 % Low 32.6-35.4 RDW 17.8 % High 11.4-14.6 PLT 195 10 140-350 MPV 8.2 CUMICR 7.0-10.6 Renal Panel 02/05/2023 [facility] [address] [place] [address] [phone] Glucose 104 mg/dL 70-110 6 BUN 42 mg/dL High 6-25 Creatinine 3.0 mg/dL High 0.7-1.3 Sodium 150 mEq/L High 135-145 Potassium 4.9 mEq/L 3.5-5.0 Chloride 114 mEq/L High 95-107 Co-2 25 mEq/L 24-31 Calcium 8.9 mg/dL 8.5-10.6 Phosphorus 3.7 mg/dL 2.5-4.8 Albumin 3.8 g/dL 3.0-5.2 GFR 22 Low >60 Renal Panel 11/09/2022 [facility] [address] [place] [address] [phone] Glucose 96 mg/dL 70-110 7 BUN 50 mg/dL High 6-25 Creatinine 3.4 mg/dL Critical high 0.7-1.3 8 Sodium 141 mEq/L 135-145 Potassium 4.5 mEq/L 3.5-5.0 Chloride 108 mEq/L High 95-107 Co-2 21 mEq/L Low 24-31 Calcium 8.9 mg/dL 8.5-10.6 Phosphorus 4.3 mg/dL 2.5-4.8 Albumin 3.7 g/dL 3.0-5.2 GFR 19 Low >60 Laboratory test finding 11/09/2022 [facility] [address] [place], [place] [address] [phone] Ferritin 64.20 ng/mL 22.00-415.0 CBC No Diff 11/09/2022 [facility] [address] [place], [place] [id number] [phone] WBC 7.2 10 3.1-9.2 RBC 3.66 10 Low 4.00-5.80 HGB 11.3 GR/DL Low 12.5-17.5 HCT 35.1 % Low 37.5-52.5 MCV 96.0 CUMICR High 82.6-95.8 MCH 30.9 PICOGR 27.9-32.9 MCHC 32.2 % Low 32.6-35.4 RDW 16.7 % High 11.4-14.6 PLT 243 10 140-350 MPV 7.7 CUMICR 7.0-10.6 Iron Panel([facility]) 11/09/2022 [facility] [address] [place] [address] [phone] Iron 80 g /dL 45-140 9 % Saturation 24 % Low 30-35 Tibc 11/09/2022 [facility] [address] [place] [address] [phone] Tibc 337 g /dL 260-400 Transferrin 241 mg/dL 200-400 Comp. Met 10/03/2022 [facility] [address] [place] [address] [phone] Glucose 100 mg/dL 70-110 BUN 46 mg/dL [...] 2.0-3.4 GFR 23 Low >60 Lipid 10/03/2022 [facility] [address] [place] [address] [phone] Cholesterol 139 mg/dL 0-200 10 Triglyceride 68 mg/dL 0-150 11 HDLD 52 mg/dL See Comment 12 Measured LDL 74 mg/dL 0-130 13 Calc VLDL 13.6 mg/dL See Comment 14 Chol/HDL 2.7 RATIO See Comment 15 Non-HDL 87 mg/dL See Comment 16 CBC W/Diff 10/03/2022 [facility] [address] [place] [address] [phone] WBC 6.1 10 3.1-9.2 RBC 3.60 10 Low 4.00-5.80 HGB 11.2 GR/DL Low 12.5-17.5 HCT 34.6 % Low 37.5-52.5 MCV 95.9 CUMICR High 82.6-95.8 MCH 31.2 PICOGR 27.9-32.9 MCHC 32.5 % Low 32.6-35.4 RDW 17.2 % High 11.4-14.6 PLT 298 10 140-350 MPV 7.1 CUMICR 7.0-10.6 %Neut 66.0 % 40.0-75.0 %Lymph 12.3 % Low 17.0-45.0 %Merrick 11.5 % High 1.0-11.0 %Eos 9.4 % High 0.0-6.0 %Baso 0.8 % 0.0-2.0 #Neut 4.0 10 1.5-8.0 #Lymph 0.8 10 0.8-3.2 #Merrick 0.7 10 0.0-0.8 #Eos 0.6 10 High 0.0-0.4 #Baso 0.0 10 0.0-0.2 Laboratory test finding 10/03/2022 [facility] [address] [place] [address] [phone] TSH 3.43 uIU/mL 0.50-6.00 FRT4 0.82 ng/dL 0.75-1.54 Iron Panel([facility]) 10/03/2022 [facility] [address] [place] [address] [phone] Iron 59 g /dL 45-140 % Saturation 18 % Low 30-35 Tibc 10/03/2022 [facility] [address] [place] [address] [phone] Tibc 328 g /dL 260-400 Transferrin 234 mg/dL 200-400 Laboratory test finding 10/03/2022 [facility] [address] [place] [address] [phone] Ferritin 122.00 ng/mL 22.00-415.0 Hba1c 10/03/2022 [facility] [address] [place] [address] [phone] A1c 5.80 % 4.70-6.50 17 1 CRITICAL RESULTS LUCI IFIED, FAXED, AND CALLED TO TANK JACKSON @ 12:10. 03/20/23 MH 2 REPORT FAXED TO [facility]CT [facility], REQUESTED ON REQUISITION.03/01/23 LM 3 Please fax results t chandrika Baez PA-C [phone] F- [phone] REPORT FAXED TO [facility], REQUESTED ON REQUISITION.02/14/23 LM 5 CRITICAL RESULTS LUCI IFIED, FAXED, AND CALLED TO LASHON HENRY @ 4:09. 02/13/23 MH 6 REPORT FAXED TO [facility], REQUESTED ON REQUISITION. 02.06.23 ESEQUIEL 7 Fax to [phone] [facility] P: [phone] CRITICAL RESULTS LUCI IFIED, FAXED, AND [...] 240-10 Procedures Date Code Description Status 03/19/2023 46000 Venipuncture Routine Complet ed 02/28/2023 90549 Venipuncture Routine Complet ed 02/13/2023 02094 Venipuncture Routine Complet ed 01/15/2023 1111F D/C Medications Reconciled W/Current Medications In Outpt MR Completed 01/12/2023 1111F D/C Medications Reconciled W/Current Medications In Outpt MR Completed 11/09/2022 25584 Venipuncture Routine Complet ed 10/04/2022 G0008 Influenza Admin Completed 10/04/2022 3078F PVRP Diastolic BP <80 mmHg C ompleted 10/04/2022 3075F PVRP Systolic BP 130 To 139 MMHG Completed 10/03/2022 81162 Venipuncture Routine Complet ed Medical Devices Description No Information Available Encounters Type Date Location Provider Dx Diagnosis Office Visit 03/19/2023 1:00p [facility] Ying, DO R06.02 Shortness of breath Office Visit 01/15/2023 11:00a [facility] Pierre Costa PA-C N40.1 Benign prosta tic hyperplasia with lower urinary tract symp A41.50 Gram-negative sepsis , unspecified Office Visit 10/04/2022 10:30a [facility] P[facility] JR, DO E78.00 Pure hypercholesterolemia, unspecified [...] Acute kidney failure, unspec ified Lab - [facility] 02/28/2023 E55.9 Vitamin D deficiency, unspec ified Vinodriya Pang JR, DO 02/28/2023 E55.9 Vitamin D deficiency, unspec ified Lab - [facility] 02/28/2023 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, stag e 4 (severe) Vinod Pang JR, DO 02/28/2023 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, stag e 4 (severe) Lab - [facility] 02/13/2023 I50.9 Heart failure, unspecified K felixriya Pang JR, DO 02/13/2023 I50.9 Heart failure, unspecified L ab - [facility] 02/13/2023 E11.21 Type 2 diabetes mellitus with diabetic nephropathy Vinod Pang JR, DO 02/05/2023 N17.9 Acute kidney failure, unspec ified Vinod Pang JR, DO 02/05/2023 N17.9 Acute kidney failure, unspec ified Lab - [facility] 02/05/2023 E55.9 Vitamin D deficiency, unspec ified Vinod Pang JR, DO 02/05/2023 E55.9 Vitamin D deficiency, unspec ified Lab - [facility] 02/05/2023 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, stag e 4 (severe) Vinod Pang JR, DO 02/05/2023 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, stag e 4 (severe) Lab - [facility] 01/15/2023 N40.1 Benign prostatic hyperplasia with lower urinary tract symptoms Pierre Costa PA-C 01/15/2023 A41.50 Gram-negative sepsis, unspec ified Pierre Costa PA-C 11/09/2022 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, stag e 4 (severe) Vinod Pang JR, DO 11/09/2022 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, stag e 4 (severe) Lab - [facility] 11/09/2022 D64.9 Anemia, unspecified Vinod Pang JR, DO 11/09/2022 D64.9 Anemia, unspecified [facility] [place] [facility] 10/04/2022 E78.00 Pure hypercholesterolemia, u nspecified [...] hyperp arathyroidism of renal origin Lab - [facility] 10/03/2022 E78.00 Pure hypercholesterolemia, u nspecified Vinod Pang JR, DO 10/03/2022 E78.00 Pure hypercholesterolemia, u nspecified Lab - [facility] 10/03/2022 E88.81 Metabolic syndrome Vinod Pang JR, DO 10/03/2022 E88.81 Metabolic syndrome Lab - [facility] [place] 10/03/2022 E11.21 Type 2 diabetes mellitus with diabetic nephropathy Vinod Pang JR DO Plan of Treatment Future Appointment(s):* 04/11/2023 9:00 am - Vinod Pang JR, DO at [facility] * 04/04/2023 6:30 am - [facility] 03/19/2023 - Migel Ying, DO* R06.02 Shortness [...] Status Appt Timothy Zi Silva [address] [place] [address] Dr Hunter 3 [phone]
--- OUTSIDE RECORDS SUMMARY | 2023-08-21 23:57 | External Medical Summary | Continuity of Care Document ---
Author Name [facility] Address [address] [place] [address] Phone [phone] Organization [facility], Address [address] [place] [address] Phone [phone] Care Team Providers Care Systematic Theology Professor Name Role Phone GI - Gastroenterology Care Team Information Rece Fermín Harrell MD Care Team Information Receiv er [phone] Rory Hodge Care Team Information Store Facility Technician [phone] Nixon Aden MD Care Team Information Store Facility Technician [phone] Abran Eugene JR - Interven tional Pain Medicine Care Team Information Store Facility Technician [phone] Medardo Trinidad MD Care Team Information Receive r [phone] Sinan Marks MD Care Team Information Receive r [phone] Problems Active Problems Provider Date Chronic kidney [...] Pang JR, DO On set: 09/01/2015 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 [employer] (Cu rrent) Use Encounter Vinod Pang JR [...] Description Comments Sex Unknown Tobacco Use Reviewed: 01/15/23 Never Smoked Cigarette s Tobacco Use Reviewed: 01/15/23 Never Smoked Cigars Tobacco Use Reviewed: 01/15/23 Never Smoked A Pipe Smoking Status Reviewed: 01/15/23 Never Smoked A Pipe Smokeless Tobacco 01/15/2023 Current Smokel ess Tobacco User, Uses 9 Times Daily ETOH Use Denies alcohol use Recreational Drug Use Denies Drug Use Allergies and adverse reactions Description No Known Drug Allergies Medications Active Medications SIG Qnty Indications Ordering Provider Date Clopidogrel Yvchuqirn90ar Tablets Take One (1) Tablet By Mouth Every Day 30tabs I73.9 Vinod Pang JR, DO 08/24/2021 Citalopram Smceajrejxuy42xt Tablets Take One (1) Tablet By Mouth Every Day 90tabs F33.1 Vinod Pang JR, DO 06/23/2019 Ywxxuplcasr0vs Tablets Take One Tablet By Mouth Once Daily 30tabs Vinod Pang JR, DO 11/12/2017 Oxycodone-Acetaminophe n7.5-325mg Tablets take one tablet every 6 h as needed pain 60tabs Vinod Pang JR, DO 01/22/[address] 1 po qd I73.9 Unknown Atorvastatin Pxcvvlt57kd Tablets Take One Tablet By Mouth AT Bedtime 90tabs E78.0 Vinod Pang JR, DO E78.00 Ooaepa96248Rgqu/ML Solution Monthly Un known Albuterol Sulfate HTV777(90B ase) mcg/Act Aerosol 2 puffs by mouth every 4-6 hours as needed wheezing Unknown Fecokrdlrl96lu Tablets 1 by mouth twice a day 180tabs Unknown Pantoprazole Epfnqa99uk Tabl ets DR 1 by mouth every day Unknown 000 Mdrohnf2nx Tablets 1 by mouth twice a day Unknown Bumetanide0.5mg Tablets 1 or 2 by mouth every day as needed Unknown Tamsulosin HCL0.4mg Capsules 1 by mouth every day Unknown History Medications Mfkcjydkrj751qz Tablets take 1 tab by mouth twice [...] CPT Code Status Date Vaccine Lot # [id number] Given 10/04/2022 Influenza Vaccine High Do se 0.5ML [id number] U-FLU Given 08/11/2020 Influenza,Unspecified 44634 Given 08/11/2020 Influenza Vacci ne-Administered at another facility U-FLU Given 08/23/2019 Influenza,Unspecified 93563 Given 08/23/2019 Influenza Vacci ne-Administered at another facility 93097 Given 07/11/2018 Influenza Vac, Split, Preservative Free High Dose Age 65 & > [id number] 03329 Given 10/02/2017 Pneumococcal Conjugate-Pr evnar 13 01382 Given 10/02/2017 Influenza Vac, Split, Preservative Free High Dose Age 65 & > 53878 Given 08/14/2016 Influenza Virus Vaccine, Quadrivalent, Im Use [id number] 89395 Given 09/01/2015 Influenza Vac, Split, Preservative Free High Dose Age 65 & > [id number] 90049 Given 09/01/2015 Pneumococcal Conjugate-Pr evnar 13 [id number] 63974 Given 07/21/2014 Influenza Vac, Split, Preservative Free High Dose Age 65 & > [id number] U-FLU Given 07/21/2014 Influenza,Unspecified 92524 Given 01/31/2014 Pneumococcal Vaccine/Pneu movax 23 77932 Given 07/17/2013 Influenza Vac, Split, Preservative Free High Dose Age 65 & > [id number] 92552 Given 07/24/2012 Influenza Vac, Split, Preservative Free High Dose Age 65 & > [id number] 99871 Given 07/04/2011 Influenza Vac, Split, Preservative Free High Dose Age 65 & > [id number] 96489 Given 08/16/2010 Pneumococcal Vaccine/Pneu movax 23 [id number] 69451 Given 10/21/2009 Influenza Vac, Split 3 Yr s And Up [id number] 90816 Given 07/24/2008 Influenza Vac, Split 3 Yr s And Up U-FLU Given 07/22/2008 Influenza,Unspecified 28096 Given 10/27/2004 Influenza Vac, Split 3 Yr s And Up 30636 Given 07/22/2004 Pneumococcal Vaccine/Pneu movax 23 80621 Refused 07/26/2021 Moderna Sars-Co v-2 (Covid-19) vaccine, 100 mcg/ 0.5 mL 12Y+ 53876 Refused 09/28/2020 Tdap (Tetanus, diphtheria & acel. pertussis) Adacel or Boostrix 21598 Refused 09/28/2020 Shingrix 31592 Refused 08/19/2020 Influenza Virus Vaccine, Quadrivalent, Im Use 57092 Refused 07/11/2016 Influenza Vac, Split, Preservative Free High Dose Age 65 & > Vital Signs Date Vital Result Comment 01/15/2023 11:04am BP Systolic 120 mmHg BP Diastolic 60 mmHg Body Temperature 97.7 F Heart Rate 78 /min Respiratory Rate 16 /min Weight 211.12 lb Weight 95.766 kg 10/04/2022 10:36am BP Systolic 136 mmHg BP Diastolic 64 mmHg Body Temperature 97.8 F Heart Rate 76 /min Respiratory Rate 20 /min Weight 202.00 lb Weight 91.627 kg Results Test Acquired Date Facility Test Result H/L Range N ote CBC No Diff 02/28/2023 [facility] [address] [place], [place] [id number] [phone] WBC 5.9 10^3/M3 3.1-9.2 RBC 2.90 10^6/M3 Low 4.00-5.80 HGB 8.6 GR/DL Low 12.5-17.5 HCT 27.9 % Low 37.5-52.5 MCV 96.3 CUMICR High 82.6-95.8 MCH 29.6 PICOGR 27.9-32.9 MCHC 30.8 % Low 32.6-35.4 RDW 18.5 % High 11.4-14.6 PLT 238 10^3/M3 140-350 MPV 8.0 CUMICR 7.0-10.6 Laboratory test finding 02/28/2023 [facility] [address] [place], [place] [id number] [phone] Vitd-25Oh 46 ng/mL 30-100 Renal Panel 02/28/2023 [facility] [address] [place], [place] [address] [phone] Glucose 96 mg/dL 70-110 1 BUN 56 mg/dL High 6-25 Creatinine 2.9 mg/dL High 0.7-1.3 Sodium 142 mEq/L 135-145 Potassium 4.4 mEq/L 3.5-5.0 Chloride 109 mEq/L High 95-107 Co-2 23 mEq/L Low 24-31 Calcium 8.4 mg/dL Low 8.5-10.6 Phosphorus 3.3 mg/dL 2.5-4.8 Albumin 3.5 g/dL 3.0-5.2 GFR 22 Low >60 Laboratory test finding 02/13/2023 [facility] [address] [place], [place] [id number] [phone] Magnesium 2.1 mg/dL 1.7-2.8 2 BMP 02/13/2023 [facility] [address] [place] [address] [phone] Glucose 99 mg/dL 70-110 3 BUN 59 mg/dL High 6-25 Creatinine 3.0 mg/dL High 0.7-1.3 Sodium 142 mEq/L 135-145 Potassium 3.8 mEq/L 3.5-5.0 Chloride 106 mEq/L 95-107 Co-2 27 mEq/L 24-31 Calcium 9.0 mg/dL 8.5-10.6 GFR 22 Low >60 Laboratory test finding 02/13/2023 [facility] [address] [place] [address] [phone] BNP 490.0 pg/mL Critical high 0.0-100.0 4 H & H 02/13/2023 [facility] [address] [place], [place] [address] [phone] HGB 9.9 GR/DL Low 12.5-17.5 HCT 30.6 % Low 37.5-52.5 Renal Panel 02/05/2023 [facility] [address] [place], [place] [address] [phone] Glucose 104 mg/dL 70-110 5 BUN 42 mg/dL High 6-25 Creatinine 3.0 mg/dL High 0.7-1.3 Sodium 150 mEq/L High 135-145 Potassium 4.9 mEq/L 3.5-5.0 Chloride 114 mEq/L High 95-107 Co-2 25 mEq/L 24-31 Calcium 8.9 mg/dL 8.5-10.6 Phosphorus 3.7 mg/dL 2.5-4.8 Albumin 3.8 g/dL 3.0-5.2 GFR 22 Low >60 CBC No Diff 02/05/2023 [facility] [address] [place], [place] [address] [phone] WBC 5.1 10 3.1-9.2 RBC 3.28 10 Low 4.00-5.80 HGB 9.6 GR/DL Low 12.5-17.5 HCT 30.9 % Low 37.5-52.5 MCV 94.4 CUMICR 82.6-95.8 MCH 29.3 PICOGR 27.9-32.9 MCHC 31.1 % Low 32.6-35.4 RDW 17.8 % High 11.4-14.6 PLT 195 10 140-350 MPV 8.2 CUMICR 7.0-10.6 Laboratory test finding 02/05/2023 [facility] [address] [place] [address] [phone] Vitd-25Oh 38 ng/mL 30-100 Laboratory test finding 11/09/2022 [facility] [address] [place] [address] [phone] Ferritin 64.20 ng/mL 22.00-415.0 6 Tibc 11/09/2022 [facility] [address] [place] [address] [phone] Tibc 337 g /dL 260-400 Transferrin 241 mg/dL 200-400 [facility] 11/09/2022 [facility] [address] [place], [place] [address] [phone] Iron 80 g /dL 45-140 7 % Saturation 24 % Low 30-35 CBC No Diff 11/09/2022 [facility] [address] [place] [address] [phone] WBC 7.2 10 3.1-9.2 RBC 3.66 10 Low 4.00-5.80 HGB 11.3 GR/DL Low 12.5-17.5 HCT 35.1 % Low 37.5-52.5 MCV 96.0 CUMICR High 82.6-95.8 MCH 30.9 PICOGR 27.9-32.9 MCHC 32.2 % Low 32.6-35.4 RDW 16.7 % High 11.4-14.6 PLT 243 10 140-350 MPV 7.7 CUMICR 7.0-10.6 Renal Panel 11/09/2022 [facility] [address] [place], [place] [address] [phone] Glucose 96 mg/dL 70-110 BUN 50 mg/dL High 6-25 Creatinine 3.4 mg/dL Critical high 0.7-1.3 8 Sodium 141 mEq/L 135-145 Potassium 4.5 mEq/L 3.5-5.0 Chloride 108 mEq/L High 95-107 Co-2 21 mEq/L Low 24-31 Calcium 8.9 mg/dL 8.5-10.6 Phosphorus 4.3 mg/dL 2.5-4.8 Albumin 3.7 g/dL 3.0-5.2 GFR 19 Low >60 Comp. Met 10/03/2022 [facility] [address] [place] [address] [phone] Glucose 100 mg/dL 70-110 BUN 46 mg/dL [...] 2.0-3.4 GFR 23 Low >60 Lipid 10/03/2022 [facility] [address] [place] [address] [phone] Cholesterol 139 mg/dL 0-200 9 Triglyceride 68 mg/dL 0-150 10 HDLD 52 mg/dL See Comment 11 Measured LDL 74 mg/dL 0-130 12 Calc VLDL 13.6 mg/dL See Comment 13 Chol/HDL 2.7 RATIO See Comment 14 Non-HDL 87 mg/dL See Comment 15 CBC W/Diff 10/03/2022 [facility] [address] [place] [address] [phone] WBC 6.1 10 3.1-9.2 RBC 3.60 10 Low 4.00-5.80 HGB 11.2 GR/DL Low 12.5-17.5 HCT 34.6 % Low 37.5-52.5 MCV 95.9 CUMICR High 82.6-95.8 MCH 31.2 PICOGR 27.9-32.9 MCHC 32.5 % Low 32.6-35.4 RDW 17.2 % High 11.4-14.6 PLT 298 10 140-350 MPV 7.1 CUMICR 7.0-10.6 %Neut 66.0 % 40.0-75.0 %Lymph 12.3 % Low 17.0-45.0 %[place] 11.5 % High 1.0-11.0 %Eos 9.4 % High 0.0-6.0 %Baso 0.8 % 0.0-2.0 #Neut 4.0 10 1.5-8.0 #Lymph 0.8 10 0.8-3.2 #[place] 0.7 10 0.0-0.8 #Eos 0.6 10 High 0.0-0.4 #Baso 0.0 10 0.0-0.2 Laboratory test finding 10/03/2022 [facility] [address] [place], [place] [address] [phone] TSH 3.43 uIU/mL 0.50-6.00 FRT4 0.82 ng/dL 0.75-1.54 Iron Panel([facility]) 10/03/2022 [facility]. [address] [place] [address] [phone] Iron 59 g /dL 45-140 % Saturation 18 % Low 30-35 Tibc 10/03/2022 [facility] [address] [place] [address] [phone] Tibc 328 g /dL 260-400 Transferrin 234 mg/dL 200-400 Laboratory test finding 10/03/2022 [facility] [address] [place] [address] [phone] Ferritin 122.00 ng/mL 22.00-415.0 Hba1c 10/03/2022 [facility] [address] [place] [address] [phone] A1c 5.80 % 4.70-6.50 16 1 REPORT FAXED TO DOCT OR, REQUESTED ON REQUISITION.03/01/23 LM 2 Please fax results agatha Baez PA-C [phone] F- [phone] REPORT FAXED TO DOCT OR, REQUESTED ON REQUISITION.02/14/23 LM 4 CRITICAL RESULTS LUCI IFIED, FAXED, AND CALLED TO LASHON HENRY @ 4:09. 02/13/23 5 REPORT FAXED TO DOCT OR, REQUESTED ON REQUISITION. 02.06.23 ESEQUIEL 6 Fax to [phone] [facility] P: [phone] 7 REPORT FAXED TO DOCT OR, REQUESTED ON REQUISITION.11/10/22 LM 8 CRITICAL RESULTS LUCI IFIED, FAXED, AND CALLED TO AMANDA AT 4:50 PM ON 11/09/22 ALB 9 CHOLESTEROL Less than 200mg/dl Low risk [...] 270-11 240-10 Procedures Date Code Description Status 02/28/2023 10726 Venipuncture Routine Complet ed 02/13/2023 73441 Venipuncture Routine Complet ed 01/15/2023 1111F D/C Medications Reconciled W/Current Medications In Outpt MR Completed 01/12/2023 1111F D/C Medications Reconciled W/Current Medications In Outpt MR Completed 11/09/2022 09067 Venipuncture Routine Complet ed 10/04/2022 G0008 Influenza Admin Completed 10/04/2022 3078F PVRP Diastolic BP <80 mmHg C ompleted 10/04/2022 3075F PVRP Systolic BP 130 To 139 MMHG Completed 10/03/2022 74588 Venipuncture Routine Complet ed Medical Devices Description No Information Available Encounters Type Date Location Provider Dx Diagnosis Office Visit 01/15/2023 11:00a [facility] PA-C N40.1 Benign prosta tic hyperplasia [...] immuni zation Assessments Date Code Description Provider 02/28/2023 N17.9 Acute kidney failure, unspec ified [facility] 02/28/2023 E55.9 Vitamin D deficiency, unspec ified [facility] 02/28/2023 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, stag e 4 (severe) [facility] 02/13/2023 I50.9 Heart failure, unspecified K dusty Pang JR, DO 02/13/2023 I50.9 Heart failure, unspecified L ab - [facility] 02/13/2023 E11.21 Type 2 diabetes mellitus with diabetic nephropathy Vinod Pang JR, DO 02/05/2023 N17.9 Acute kidney failure, unspec ified Vinod Pang JR, DO 02/05/2023 N17.9 Acute kidney failure, unspec ified [facility] 02/05/2023 E55.9 Vitamin D deficiency, unspec ified Vinod Pang JR, DO 02/05/2023 E55.9 Vitamin D deficiency, unspec ified [facility] 02/05/2023 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, stag e 4 (severe) Vinod Pang JR, DO 02/05/2023 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, stag e 4 (severe) [facility] 01/15/2023 N40.1 Benign prostatic hyperplasia with lower urinary tract symptoms JOSIE Flood-C 01/15/2023 A41.50 Gram-negative sepsis, unspec ified JOSIE Flood-C 11/09/2022 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, stag e 4 (severe) Vinod Pang JR, DO 11/09/2022 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, stag e 4 (severe) [facility] 11/09/2022 D64.9 Anemia, unspecified Vinod Pang JR, [...] hyperp arathyroidism of renal origin [facility] - [facility] 10/03/2022 E78.00 Pure hypercholesterolemia, u nspecified Vinod Pang JR, DO 10/03/2022 E78.00 Pure hypercholesterolemia, u nspecified [facility] - [facility] 10/03/2022 E88.81 Metabolic syndrome Vinod Pang JR DO 10/03/2022 E88.81 Metabolic syndrome Lab - [facility] 10/03/2022 E11.21 Type 2 diabetes mellitus with diabetic nephropathy Vinod Pang JR, DO Plan of Treatment Future Appointment(s):* 04/11/2023 9:00 am - Vinod Pang JR, DO at [facility] * 04/04/2023 6:30 am - [facility] Functional Status Description No Information Available Mental Status Description No Information Available Referrals Refer to Dr Reason for Referral Status Appt Didi Silva [address] [place] [address] Dr Hunter 3 [phone]
--- OUTSIDE RECORDS SUMMARY | 2023-08-21 23:57 | External Medical Summary | Continuity of Care Document ---
Author Name [facility] [place] Address [address] [place] [address] Phone [phone] Organization [facility], Address [address] [place] [address] Phone [phone] Care Team Providers Care Neon Electrician Name Role Phone GI - Gastroenterology Care Team Information Rece Fermín Harrell MD Care Team Information Receiv er [phone] Rory Hodge Care Team Information Enrollment Consultant [phone] Nixon Aden MD Care Team Information Enrollment Consultant [phone] Abran Eugene JR - Interven tional Pain Medicine Care Team Information Enrollment Consultant [phone] Medardo Trinidad MD Care Team Information Receive r [phone] Sinan Marks MD Care Team Information Receive r [phone] Problems Active Problems Provider Date Chronic kidney [...] Pang JR, DO On set: 09/01/2015 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 Form Layer (Cu rrent) Use Encounter Vinod Pang JR [...] SIG Qnty Indications Ordering Provider Date Clopidogrel Fzftgsecu53vf Tablets Take One (1) Tablet By Mouth Every Day 30tabs I73.9 Vinod Pang JR, DO 08/24/2021 Citalopram Drygmrsdlcsk16pj Tablets Take One (1) Tablet By Mouth Every Day 90tabs F33.1 Vinod Pang JR, DO 06/23/2019 Edvcalyqdab3yg Tablets Take One Tablet By Mouth Once Daily 30tabs Vinod Pang JR, DO 11/12/2017 Oxycodone-Acetaminophe n7.5-325mg Tablets take one tablet every 6 h as needed pain 60tabs Vinod Pang JR, DO 01/22/[address] 1 po qd I73.9 Unknown Atorvastatin Fnuqzjo27bp Tablets Take One Tablet By Mouth AT Bedtime 90tabs E78.0 Vinod Pang JR, DO E78.00 Slbcma61194Xfzn/ML Solution Monthly Un known Albuterol Sulfate [id number](90B ase) mcg/Act Aerosol 2 puffs by mouth every 4-6 hours as needed wheezing Unknown Lgespwzosz72wx Tablets 1 by mouth twice a day 180tabs Unknown Pantoprazole Trcmyx38ga Tabl ets DR 1 by mouth every day Unknown 000 Zmuoimv8ok Tablets 1 by mouth twice a day Unknown Bumetanide0.5mg Tablets 1 or 2 by mouth every day as needed Unknown Tamsulosin HCL0.4mg Capsules 1 by mouth every day Unknown History Medications Cixqemabyy328lb Tablets take 1 tab by mouth twice [...] CPT Code Status Date Vaccine Lot # [id number] Given 10/04/2022 Influenza Vaccine High Do se 0.5ML [id number] U-FLU Given 08/11/2020 Influenza,Unspecified 57958 Given 08/11/2020 Influenza Vacci ne-Administered at another facility U-FLU Given 08/23/2019 Influenza,Unspecified 02319 Given 08/23/2019 Influenza Vacci ne-Administered at another facility 72283 Given 07/11/2018 Influenza Vac, Split, Preservative Free High Dose Age 65 & > [id number] 48979 Given 10/02/2017 Pneumococcal Conjugate-Pr evnar 13 52108 Given 10/02/2017 Influenza Vac, Split, Preservative Free High Dose Age 65 & > 06553 Given 08/14/2016 Influenza Virus Vaccine, Quadrivalent, Im Use [id number] 36415 Given 09/01/2015 Influenza Vac, Split, Preservative Free High Dose Age 65 & > [id number] 91459 Given 09/01/2015 Pneumococcal Conjugate-Pr evnar 13 [id number] 55741 Given 07/21/2014 Influenza Vac, Split, Preservative Free High Dose Age 65 & > [id number] U-FLU Given 07/21/2014 Influenza,Unspecified 44926 Given 01/31/2014 Pneumococcal Vaccine/Pneu movax 23 73042 Given 07/17/2013 Influenza Vac, Split, Preservative Free High Dose Age 65 & > [id number] 32355 Given 07/24/2012 Influenza Vac, Split, Preservative Free High Dose Age 65 & > [id number] 08348 Given 07/04/2011 Influenza Vac, Split, Preservative Free High Dose Age 65 & > [id number] 53401 Given 08/16/2010 Pneumococcal Vaccine/Pneu movax 23 [id number] 44797 Given 10/21/2009 Influenza Vac, Split 3 Yr s And Up [id number] 70936 Given 07/24/2008 Influenza Vac, Split 3 Yr s And Up U-FLU Given 07/22/2008 Influenza,Unspecified 92434 Given 10/27/2004 Influenza Vac, Split 3 Yr s And Up 11820 Given 07/22/2004 Pneumococcal Vaccine/Pneu movax 23 17346 Refused 07/26/2021 Moderna Sars-Co v-2 (Covid-19) vaccine, 100 mcg/ 0.5 mL 12Y+ 47531 Refused 09/28/2020 Tdap (Tetanus, diphtheria & acel. pertussis) Adacel or Boostrix 22348 Refused 09/28/2020 Shingrix 64284 Refused 08/19/2020 Influenza Virus Vaccine, Quadrivalent, Im Use 71625 Refused 07/11/2016 Influenza Vac, Split, Preservative Free [...] Range N ote CBC No Diff 02/28/2023 [facility] [address] [place], [place] [phone] WBC 5.9 10^3/M3 3.1-9.2 RBC 2.90 10^6/M3 Low 4.00-5.80 HGB 8.6 GR/DL Low 12.5-17.5 HCT 27.9 % Low 37.5-52.5 MCV 96.3 CUMICR High 82.6-95.8 MCH 29.6 PICOGR 27.9-32.9 MCHC 30.8 % Low 32.6-35.4 RDW 18.5 % High 11.4-14.6 PLT 238 10^3/M3 140-350 MPV 8.0 CUMICR 7.0-10.6 Laboratory test finding 02/28/2023 [facility] [address] [place], [place] [phone] Vitd-25Oh 46 ng/mL 30-100 Renal Panel 02/28/2023 [facility] [address] [place], [place] [phone] [phone] Glucose 96 mg/dL 70-110 1 BUN 56 mg/dL High 6-25 Creatinine 2.9 mg/dL High 0.7-1.3 Sodium 142 mEq/L 135-145 Potassium 4.4 mEq/L 3.5-5.0 Chloride 109 mEq/L High 95-107 Co-2 23 mEq/L Low 24-31 Calcium 8.4 mg/dL Low 8.5-10.6 Phosphorus 3.3 mg/dL 2.5-4.8 Albumin 3.5 g/dL 3.0-5.2 GFR 22 Low >60 Laboratory test finding 02/13/2023 [facility] [address] [place], [place] [phone] Magnesium 2.1 mg/dL 1.7-2.8 2 BMP 02/13/2023 [facility] [address] [place] [address] [phone] Glucose 99 mg/dL 70-110 3 BUN 59 mg/dL High 6-25 Creatinine 3.0 mg/dL High 0.7-1.3 Sodium 142 mEq/L 135-145 Potassium 3.8 mEq/L 3.5-5.0 Chloride 106 mEq/L 95-107 Co-2 27 mEq/L 24-31 Calcium 9.0 mg/dL 8.5-10.6 GFR 22 Low >60 Laboratory test finding 02/13/2023 [facility] [address] [place] [address] [phone] BNP 490.0 pg/mL Critical high 0.0-100.0 4 H & H 02/13/2023 [facility] [address] [place], [place] [phone] [phone] HGB 9.9 GR/DL Low 12.5-17.5 HCT 30.6 % Low 37.5-52.5 Renal Panel 02/05/2023 [facility] [address] [place], [place] [phone] [phone] Glucose 104 mg/dL 70-110 5 BUN 42 mg/dL High 6-25 Creatinine 3.0 mg/dL High 0.7-1.3 Sodium 150 mEq/L High 135-145 Potassium 4.9 mEq/L 3.5-5.0 Chloride 114 mEq/L High 95-107 Co-2 25 mEq/L 24-31 Calcium 8.9 mg/dL 8.5-10.6 Phosphorus 3.7 mg/dL 2.5-4.8 Albumin 3.8 g/dL 3.0-5.2 GFR 22 Low >60 CBC No Diff 02/05/2023 [facility] [address] [place], [place] [phone] [phone] WBC 5.1 10 3.1-9.2 RBC 3.28 10 Low 4.00-5.80 HGB 9.6 GR/DL Low 12.5-17.5 HCT 30.9 % Low 37.5-52.5 MCV 94.4 CUMICR 82.6-95.8 MCH 29.3 PICOGR 27.9-32.9 MCHC 31.1 % Low 32.6-35.4 RDW 17.8 % High 11.4-14.6 PLT 195 10 140-350 MPV 8.2 CUMICR 7.0-10.6 Laboratory test finding 02/05/2023 [facility] [address] [place] [address] [phone] Vitd-25Oh 38 ng/mL 30-100 Laboratory test finding 11/09/2022 [facility] [address] [place] [address] [phone] Ferritin 64.20 ng/mL 22.00-415.0 6 Tibc 11/09/2022 [facility] [address] [place] [address] [phone] Tibc 337 g /dL 260-400 Transferrin 241 mg/dL 200-400 Iron Panel([facility]) 11/09/2022 [facility] [address] [place], [place] [address] [phone] Iron 80 g /dL 45-140 7 % Saturation 24 % Low 30-35 CBC No Diff 11/09/2022 [facility] [address] [place] [address] [phone] WBC 7.2 10 3.1-9.2 RBC 3.66 10 Low 4.00-5.80 HGB 11.3 GR/DL Low 12.5-17.5 HCT 35.1 % Low 37.5-52.5 MCV 96.0 CUMICR High 82.6-95.8 MCH 30.9 PICOGR 27.9-32.9 MCHC 32.2 % Low 32.6-35.4 RDW 16.7 % High 11.4-14.6 PLT 243 10 140-350 MPV 7.7 CUMICR 7.0-10.6 Renal Panel 11/09/2022 [facility] [address] [place], [place] [phone] Glucose 96 mg/dL 70-110 BUN 50 mg/dL High 6-25 Creatinine 3.4 mg/dL Critical high 0.7-1.3 8 Sodium 141 mEq/L 135-145 Potassium 4.5 mEq/L 3.5-5.0 Chloride 108 mEq/L High 95-107 Co-2 21 mEq/L Low 24-31 Calcium 8.9 mg/dL 8.5-10.6 Phosphorus 4.3 mg/dL 2.5-4.8 Albumin 3.7 g/dL 3.0-5.2 GFR 19 Low >60 Comp. Met 10/03/2022 [facility] [address] [place] [address] [phone] Glucose 100 mg/dL 70-110 BUN 46 mg/dL [...] 2.0-3.4 GFR 23 Low >60 Lipid 10/03/2022 [facility] [address] [place] [address] [phone] Cholesterol 139 mg/dL 0-200 9 Triglyceride 68 mg/dL 0-150 10 HDLD 52 mg/dL See Comment 11 Measured LDL 74 mg/dL 0-130 12 Calc VLDL 13.6 mg/dL See Comment 13 Chol/HDL 2.7 RATIO See Comment 14 Non-HDL 87 mg/dL See Comment 15 CBC W/Diff 10/03/2022 [facility] [address] [place] [address] [phone] WBC 6.1 10 3.1-9.2 RBC 3.60 10 Low 4.00-5.80 HGB 11.2 GR/DL Low 12.5-17.5 HCT 34.6 % Low 37.5-52.5 MCV 95.9 CUMICR High 82.6-95.8 MCH 31.2 PICOGR 27.9-32.9 MCHC 32.5 % Low 32.6-35.4 RDW 17.2 % High 11.4-14.6 PLT 298 10 140-350 MPV 7.1 CUMICR 7.0-10.6 %Neut 66.0 % 40.0-75.0 %Lymph 12.3 % Low 17.0-45.0 %Hunt 11.5 % High 1.0-11.0 %Eos 9.4 % High 0.0-6.0 %Baso 0.8 % 0.0-2.0 #Neut 4.0 10 1.5-8.0 #Lymph 0.8 10 0.8-3.2 #Hunt 0.7 10 0.0-0.8 #Eos 0.6 10 High 0.0-0.4 #Baso 0.0 10 0.0-0.2 Laboratory test finding 10/03/2022 [facility] [address] [place], [place] [phone] TSH 3.43 uIU/mL 0.50-6.00 FRT4 0.82 ng/dL 0.75-1.54 Iron Panel([facility]) 10/03/2022 [facility] [address] [place] [address] [phone] Iron 59 g /dL 45-140 % Saturation 18 % Low 30-35 Tibc 10/03/2022 [facility] [address] [place] [address] [phone] Tibc 328 g /dL 260-400 Transferrin 234 mg/dL 200-400 Laboratory test finding 10/03/2022 [facility] [address] [place] [address] [phone] Ferritin 122.00 ng/mL 22.00-415.0 Hba1c 10/03/2022 [facility] [address] [place] [address] [phone] A1c 5.80 % 4.70-6.50 16 1 REPORT FAXED TO DOCT OR, REQUESTED ON REQUISITION.03/01/23 LM 2 Please fax results agatha Baez PA-C [phone] F- [phone] REPORT FAXED TO DOCT OR, REQUESTED ON REQUISITION.02/14/23 LM 4 CRITICAL RESULTS LUCI IFIED, FAXED, AND CALLED TO LASHON HENRY @ 4:09. 02/13/23 5 REPORT FAXED TO DOCT OR, REQUESTED ON REQUISITION. 02.06.23 ESEQUIEL 6 Fax to [phone] [facility] P: [phone] 7 REPORT FAXED TO DOCT OR, REQUESTED [...] 240-10 Procedures Date Code Description Status 02/28/2023 47780 Venipuncture Routine Complet ed 02/13/2023 88706 Venipuncture Routine Complet ed 01/15/2023 1111F D/C Medications Reconciled W/Current Medications In Outpt MR Completed 01/12/2023 1111F D/C Medications Reconciled W/Current Medications In Outpt MR Completed 11/09/2022 46960 Venipuncture Routine Complet ed 10/04/2022 G0008 Influenza Admin Completed 10/04/2022 3078F PVRP Diastolic BP <80 mmHg C ompleted 10/04/2022 3075F PVRP Systolic BP 130 To 139 MMHG Completed 10/03/2022 99239 Venipuncture Routine Complet ed Medical Devices Description No Information Available Encounters Type Date Location Provider Dx Diagnosis Office Visit 01/15/2023 11:[facility]a [facility] PA-C N40.1 Benign prosta tic hyperplasia with lower urinary tract symp A41.50 Gram-negative sepsis , unspecified Office Visit 10/04/2022 10:30a [facility] [place] JR, DO E78.00 Pure hypercholesterolemia, unspecified [...] Acute kidney failure, unspec ified [facility] [place] 02/28/2023 E55.9 Vitamin D deficiency, unspec ified Vinod Pang JR, DO 02/28/2023 E55.9 Vitamin D deficiency, unspec ified [facility] [place] 02/28/2023 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, stag e 4 (severe) Vinod Pang JR, DO 02/28/2023 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, stag e 4 (severe) [facility] [place] 02/13/2023 I50.9 Heart failure, unspecified K dusty Pang JR, DO 02/13/2023 I50.9 Heart failure, unspecified L [facility] - [place] 02/13/2023 E11.21 Type 2 diabetes mellitus with diabetic nephropathy Vinod Pang JR, DO 02/05/2023 N17.9 Acute kidney failure, unspec ified Vinod Pang JR, DO 02/05/2023 N17.9 Acute kidney failure, unspec ified [facility] [place] 02/05/2023 E55.9 Vitamin D deficiency, unspec ified Vinod Pang JR, DO 02/05/2023 E55.9 Vitamin D deficiency, unspec ified [facility] [place] 02/05/2023 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, stag e 4 (severe) Vinod Pang JR, DO 02/05/2023 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, stag e 4 (severe) [facility] [place] 01/15/2023 N40.1 Benign prostatic hyperplasia with lower urinary tract symptoms Pierre Costa PA-C 01/15/2023 A41.50 Gram-negative sepsis, unspec ified Pierre Costa PA-C 11/09/2022 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, stag e 4 (severe) Vinod Pang JR, DO 11/09/2022 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, stag e 4 (severe) [facility] [place] 11/09/2022 D64.9 Anemia, unspecified Vinod Pang JR, [...] hyperp arathyroidism of renal origin [facility] [place] 10/03/2022 E78.00 Pure hypercholesterolemia, u nspecified Vinod Pang JR, DO 10/03/2022 E78.00 Pure hypercholesterolemia, u nspecified [facility] [place] 10/03/2022 E88.81 Metabolic syndrome Vinod Pang JR, DO 10/03/2022 E88.81 Metabolic syndrome [facility] [place] 10/03/2022 E11.21 Type 2 diabetes mellitus with diabetic nephropathy Vinod Pang JR, DO Plan of Treatment Future Appointment(s):* 04/11/2023 9:00 am - Vinod Pang JR DO at [facility] * 04/04/2023 6:30 am - [facility] Functional Status Description No Information Available Mental Status Description No Information Available Referrals Refer to Dr Reason for Referral Status Appt Timothy Zi Silva [address] [place] [address] Dr Hunter 1 [phone]
--- OUTSIDE RECORDS SUMMARY | 2023-08-21 23:57 | External Medical Summary ---
Author Name Unknown Address Unknown Organization [facility] [address] [place] [address] Laboratory Report Ordering Provider Test Date Status null,[facility] 02/28/2023 13:08 Final Observation Date Value Abnormality Reference (Units ) Status 25-OH Vitamin D total 03/01/2023 10:00 46 3 0-100 (ng/mL) Final Performing Location [facility] [address] [place] [address]
--- OUTSIDE RECORDS SUMMARY | 2023-08-21 23:57 | External Medical Summary ---
Author Name Unknown Address Unknown Organization [facility] [address] [place] [address] Laboratory Report Ordering Provider Test Date Status null,[facility] 02/28/2023 13:08 Final Observation Date Value Abnormality Reference (Units ) Status WBC 03/01/2023 09:38 5.9 3.1-9.2 (10^3 /M3) Final RBC 03/01/2023 09:38 2.90 Below low normal 4.00-5 .80 (10^6/M3) Final Hemoglobin 03/01/2023 09:38 8.6 Below low normal 12.5- 17.5 (GR/DL) Final HCT 03/01/2023 09:38 27.9 Below low normal 37.5-5 2.5 (%) Final MCV 03/01/2023 09:38 96.3 Above high normal 82.6- 95.8 (CU MICR) Final MCH 03/01/2023 09:38 29.6 27.9-32.9 (PI CO GR) Final MCHC 03/01/2023 09:38 30.8 Below low normal 32.6-3 5.4 (%) Final RDW 03/01/2023 09:38 18.5 Above high normal 11.4- 14.6 (%) Final PLT 03/01/2023 09:38 238 140-350 (10^3 /M3) Final MPV 03/01/2023 09:38 8.0 7.0-10.6 (CU MICR) Final Performing Location [facility] [address] [place] [address]
--- OUTSIDE RECORDS SUMMARY | 2023-08-21 23:57 | External Medical Summary | Continuity of Care Document ---
Author Name [facility] [place] Address [address] [place] [address] Phone [phone] Organization [facility], Address [address] [place] [address] Phone [phone] Care Team Providers Care Regulatory Specialist Name Role Phone GI - Gastroenterology Care Team Information Rece Fermín Harrell MD Care Team Information Receiv er [phone] Rory Hodge Care Team Information Supervisor [employer] [phone] Nixon Aden MD Care Team Information Supervisor [employer] [phone] Abran Eugene JR - Interven tional Pain Medicine Care Team Information Supervisor [employer] [phone] Medardo Trinidad MD Care Team Information Receive r [phone] Sinan Marks MD Care Team Information Receive r [phone] Problems Active Problems Provider Date Chronic kidney [...] Pang JR, DO On set: 09/01/2015 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 Vinod Pang JR [...] SIG Qnty Indications Ordering Provider Date Clopidogrel Qilglvigs88rl Tablets Take One (1) Tablet By Mouth Every Day 30tabs I73.9 Vinod Pang JR, DO 08/24/2021 Citalopram Hgbxjifnltnw70bm Tablets Take One (1) Tablet By Mouth Every Day 90tabs F33.1 Vinod Pang JR, DO 06/23/2019 Htjtgsedxpy9nf Tablets Take One Tablet By Mouth Once Daily 30tabs Vinod Pang JR, DO 11/12/2017 Oxycodone-Acetaminophe n7.5-325mg Tablets take one tablet every 6 h as needed pain 60tabs Vinod Pang JR, DO 01/22/[address] 1 po qd I73.9 Unknown Atorvastatin Vquwfit53jj Tablets Take One Tablet By Mouth AT Bedtime 90tabs E78.0 Vinod Pang JR, DO E78.00 Nepgcv49199Mnsg/ML Solution Monthly Un known Albuterol Sulfate [id number](90B ase) mcg/Act Aerosol 2 puffs by mouth every 4-6 hours as needed wheezing Unknown Luaqyxaizu91nq Tablets 1 by mouth twice a day 180tabs Unknown Pantoprazole Iurjhy24mb Tabl ets DR 1 by mouth every day Unknown 000 Ofxqnsp4hz Tablets 1 by mouth twice a day Unknown Bumetanide0.5mg Tablets 1 or 2 by mouth every day as needed Unknown Tamsulosin HCL0.4mg Capsules 1 by mouth every day Unknown History Medications Twfyhmrvsu281cm Tablets take 1 tab by mouth twice [...] CPT Code Status Date Vaccine Lot # [id number] Given 10/04/2022 Influenza Vaccine High Do se 0.5ML [id number] U-FLU Given 08/11/2020 Influenza,Unspecified 91074 Given 08/11/2020 Influenza Vacci ne-Administered at another facility U-FLU Given 08/23/2019 Influenza,Unspecified 35516 Given 08/23/2019 Influenza Vacci ne-Administered at another facility 86039 Given 07/11/2018 Influenza Vac, Split, Preservative Free High Dose Age 65 & > [id number] 39996 Given 10/02/2017 Pneumococcal Conjugate-Pr evnar 13 04863 Given 10/02/2017 Influenza Vac, Split, Preservative Free High Dose Age 65 & > 51382 Given 08/14/2016 Influenza Virus Vaccine, Quadrivalent, Im Use [id number] 15808 Given 09/01/2015 Influenza Vac, Split, Preservative Free High Dose Age 65 & > [id number] 95042 Given 09/01/2015 Pneumococcal Conjugate-Pr evnar 13 [id number] 15581 Given 07/21/2014 Influenza Vac, Split, Preservative Free High Dose Age 65 & > [id number] U-FLU Given 07/21/2014 Influenza,Unspecified 61358 Given 01/31/2014 Pneumococcal Vaccine/Pneu movax 23 33907 Given 07/17/2013 Influenza Vac, Split, Preservative Free High Dose Age 65 & > [id number] 24538 Given 07/24/2012 Influenza Vac, Split, Preservative Free High Dose Age 65 & > [id number] 48324 Given 07/04/2011 Influenza Vac, Split, Preservative Free High Dose Age 65 & > [id number] 17255 Given 08/16/2010 Pneumococcal Vaccine/Pneu movax 23 [id number] 62703 Given 10/21/2009 Influenza Vac, Split 3 Yr s And Up [id number] 94596 Given 07/24/2008 Influenza Vac, Split 3 Yr s And Up U-FLU Given 07/22/2008 Influenza,Unspecified 36265 Given 10/27/2004 Influenza Vac, Split 3 Yr s And Up 59933 Given 07/22/2004 Pneumococcal Vaccine/Pneu movax 23 28033 Refused 07/26/2021 Moderna Sars-Co v-2 (Covid-19) vaccine, 100 mcg/ 0.5 mL 12Y+ 21606 Refused 09/28/2020 Tdap (Tetanus, diphtheria & acel. pertussis) Adacel or Boostrix 10132 Refused 09/28/2020 Shingrix 17923 Refused 08/19/2020 Influenza Virus Vaccine, Quadrivalent, Im Use 91876 Refused 07/11/2016 Influenza Vac, Split, Preservative Free [...] H/L Range N ote Laboratory test finding 02/28/2023 [facility]. [address] [place] [address] [phone] Vitd-25Oh <pending> Laboratory test finding 02/13/2023 [facility]. [address] [place] [address] [phone] Magnesium 2.1 mg/dL 1.7-2.8 1 BMP 02/13/2023 [facility]. [address] [place] [address] [phone] Glucose 99 mg/dL 70-110 2 BUN 59 mg/dL High 6-25 Creatinine 3.0 mg/dL High 0.7-1.3 Sodium 142 mEq/L 135-145 Potassium 3.8 mEq/L 3.5-5.0 Chloride 106 mEq/L 95-107 Co-2 27 mEq/L 24-31 Calcium 9.0 mg/dL 8.5-10.6 GFR 22 Low >60 Laboratory test finding 02/13/2023 [facility]. [address] [place] [address] [phone] BNP 490.0 pg/mL Critical high 0.0-100.0 3 H & H 02/13/2023 [facility]. [address] [place] [address] [phone] HGB 9.9 GR/DL Low 12.5-17.5 HCT 30.6 % Low 37.5-52.5 Renal Panel 02/05/2023 [facility]. [address] [place] [address] [phone] Glucose 104 mg/dL 70-110 4 BUN 42 mg/dL High 6-25 Creatinine 3.0 mg/dL High 0.7-1.3 Sodium 150 mEq/L High 135-145 Potassium 4.9 mEq/L 3.5-5.0 Chloride 114 mEq/L High 95-107 Co-2 25 mEq/L 24-31 Calcium 8.9 mg/dL 8.5-10.6 Phosphorus 3.7 mg/dL 2.5-4.8 Albumin 3.8 g/dL 3.0-5.2 GFR 22 Low >60 CBC No Diff 02/05/2023 [facility]. [address] [place] [address] [phone] WBC 5.1 10 3.1-9.2 RBC 3.28 10 Low 4.00-5.80 HGB 9.6 GR/DL Low 12.5-17.5 HCT 30.9 % Low 37.5-52.5 MCV 94.4 CUMICR 82.6-95.8 MCH 29.3 PICOGR 27.9-32.9 MCHC 31.1 % Low 32.6-35.4 RDW 17.8 % High 11.4-14.6 PLT 195 10 140-350 MPV 8.2 CUMICR 7.0-10.6 Laboratory test finding 02/05/2023 [facility]. [address] [place] [address] [phone] Vitd-25Oh 38 ng/mL 30-100 CBC No Diff 11/09/2022 [facility]. [address] [place] [address] [phone] WBC 7.2 10 3.1-9.2 5 RBC 3.66 10 Low 4.00-5.80 HGB 11.3 GR/DL Low 12.5-17.5 HCT 35.1 % Low 37.5-52.5 MCV 96.0 CUMICR High 82.6-95.8 MCH 30.9 PICOGR 27.9-32.9 MCHC 32.2 % Low 32.6-35.4 RDW 16.7 % High 11.4-14.6 PLT 243 10 140-350 MPV 7.7 CUMICR 7.0-10.6 Tibc 11/09/2022 [facility]. [address] [place] [address] [phone] Tibc 337 g /dL 260-400 Transferrin 241 mg/dL 200-400 Iron Panel([employer]) 11/09/2022 [facility]. [address] [place] [address] [phone] Iron 80 g /dL 45-140 6 % Saturation 24 % Low 30-35 Laboratory test finding 11/09/2022 [facility] [address] [place], [place] [phone] Ferritin 64.20 ng/mL 22.00-415.0 Renal Panel 11/09/2022 [facility]. [address] [place] [address] [phone] Glucose 96 mg/dL 70-110 BUN 50 mg/dL High 6-25 Creatinine 3.4 mg/dL Critical high 0.7-1.3 7 Sodium 141 mEq/L 135-145 Potassium 4.5 mEq/L 3.5-5.0 Chloride 108 mEq/L High 95-107 Co-2 21 mEq/L Low 24-31 Calcium 8.9 mg/dL 8.5-10.6 Phosphorus 4.3 mg/dL 2.5-4.8 Albumin 3.7 g/dL 3.0-5.2 GFR 19 Low >60 Comp. Met 10/03/2022 [facility]. [address] [place] [address] [phone] Glucose 100 mg/dL 70-110 BUN 46 mg/dL [...] 2.0-3.4 GFR 23 Low >60 Lipid 10/03/2022 [facility]. [address] [place], [place] [phone] Cholesterol 139 mg/dL 0-200 8 Triglyceride 68 mg/dL 0-150 9 HDLD 52 mg/dL See Comment 10 Measured LDL 74 mg/dL 0-130 11 Calc VLDL 13.6 mg/dL See Comment 12 Chol/HDL 2.7 RATIO See Comment 13 Non-HDL 87 mg/dL See Comment 14 CBC W/Diff 10/03/2022 [facility]. [address] [place] [address] [phone] WBC 6.1 10 3.1-9.2 RBC 3.60 10 Low 4.00-5.80 HGB 11.2 GR/DL Low 12.5-17.5 HCT 34.6 % Low 37.5-52.5 MCV 95.9 CUMICR High 82.6-95.8 MCH 31.2 PICOGR 27.9-32.9 MCHC 32.5 % Low 32.6-35.4 RDW 17.2 % High 11.4-14.6 PLT 298 10 140-350 MPV 7.1 CUMICR 7.0-10.6 %Neut 66.0 % 40.0-75.0 %Lymph 12.3 % Low 17.0-45.0 %[place] 11.5 % High 1.0-11.0 %Eos 9.4 % High 0.0-6.0 %Baso 0.8 % 0.0-2.0 #Neut 4.0 10 1.5-8.0 #Lymph 0.8 10 0.8-3.2 #[place] 0.7 10 0.0-0.8 #Eos 0.6 10 High 0.0-0.4 #Baso 0.0 10 0.0-0.2 Laboratory test finding 10/03/2022 [facility]. [address] [place] [address] [phone] TSH 3.43 uIU/mL 0.50-6.00 FRT4 0.82 ng/dL 0.75-1.54 Iron Panel([employer]) 10/03/2022 [facility]. [address] [place] [address] [phone] Iron 59 g /dL 45-140 % Saturation 18 % Low 30-35 Tibc 10/03/2022 [facility]. [address] [place] [address] [phone] Tibc 328 g /dL 260-400 Transferrin 234 mg/dL 200-400 Laboratory test finding 10/03/2022 [facility]. [address] [place] [address] [phone] Ferritin 122.00 ng/mL 22.00-415.0 Hba1c 10/03/2022 [facility]. [address] [place], [place] [phone] A1c 5.80 % 4.70-6.50 15 Renal Panel 09/01/2022 [facility]. [address] [place] [address] [phone] Glucose 91 mg/dL 70-110 16, 17 BUN 52 mg/dL High 6-25 Creatinine 3.1 mg/dL Critical high 0.7-1.3 Sodium 144 mEq/L 135-145 Potassium 4.5 mEq/L 3.5-5.0 Chloride 107 mEq/L 95-107 Co-2 27 mEq/L 24-31 Calcium 9.5 mg/dL 8.5-10.6 Phosphorus 3.8 mg/dL 2.5-4.8 Albumin 3.5 g/dL 3.0-5.2 GFR 21 Low >60 CBC No Diff 09/01/2022 [facility]. [address] [place] [address] [phone] WBC 9.6 10 High 3.1-9.2 RBC 3.71 10 Low 4.00-5.80 HGB 11.5 GR/DL Low 12.5-17.5 HCT 35.5 % Low 37.5-52.5 MCV 95.6 CUMICR 82.6-95.8 MCH 31.1 PICOGR 27.9-32.9 MCHC 32.5 % Low 32.6-35.4 RDW 16.6 % High 11.4-14.6 PLT 232 10 140-350 MPV 7.1 CUMICR 7.0-10.6 1 Please fax results agatha Baez PA-C [phone] F- [phone] 2 REPORT FAXED TO DOCT OR, REQUESTED ON REQUISITION.02/14/23 LM 3 CRITICAL RESULTS LUCI IFIED, FAXED, AND CALLED TO LASHON HENRY @ 4:09. 02/13/23 4 REPORT FAXED TO DOCT OR, REQUESTED ON REQUISITION. 02.06.23 ESEQUIEL 5 Fax to [phone] [facility] P: [phone] 6 REPORT FAXED TO DOCT OR, REQUESTED ON REQUISITION.11/10/22 LM 7 CRITICAL RESULTS LUCI IFIED, FAXED, AND CALLED TO AMANDA AT 4:50 PM ON 11/09/22 ALB 8 CHOLESTEROL Less than 200mg/dl Low risk 201-239 mg/dl Borderline risk Equal to or greater 240mg/dl High risk CHOLESTEROL COMMENTS REPORT FAXED TO DOCTOR, REQUESTED ON REQUISITION. 10/04/22 RW 9 TRIGLYCERIDES Less than 150mg/dl Normal 150-199mg/dl Borderline 200-499mg/dl High Greater than 500mg/dl Very High 10 HDL <40mg/dl Elevated Risk 41-59mg/dl Risk >=60mg/dl Least Risk 11 LDL <100mg/dl Optimal 100-129mg/dl Near Optimal 130-159mg/dl Borderline High 160-189mg/dl High >=190 Very High 12 VLDL Less than 30mg/dl Normal 13 CHOL/HDL <4.0 Optimal 4.0-5.0 Borderline >6.0 High Risk 14 NON-HDL 30mg/dl higher than LDL Target 15 MEAN GLUCOSE IN mg/d L/A1c% POOR CONTROL FAIR CONTROL GOOD CONTROL EXCELLENT CONTROL 360-14 210-9 180-8 120-6 330-13 150-7 90-5 300-12 270-11 240-10 16 Fax results to [facility] (F) [phone] CRITICAL RESULTS LUCI IFIED, FAXED, AND CALLED TO @ 1524 09/01/2022 GLUCOSE COMMENTS REPORT FAXED TO DOCTOR, REQUESTED ON REQUISITION.09/04/22 Procedures Date Code Description Status 02/28/2023 13530 Venipuncture Routine Complet ed 02/13/2023 55146 Venipuncture Routine Complet ed 01/15/2023 1111F D/C Medications Reconciled W/Current Medications In Outpt MR Completed 01/12/2023 1111F D/C Medications Reconciled W/Current Medications In Outpt MR Completed 11/09/2022 62601 Venipuncture Routine Complet ed 10/04/2022 G0008 Influenza Admin Completed 10/04/2022 3078F PVRP Diastolic BP <80 mmHg C ompleted 10/04/2022 3075F PVRP Systolic BP 130 To 139 MMHG Completed 10/03/2022 04582 Venipuncture Routine Complet ed 09/01/2022 45584 Venipuncture Routine Complet ed Medical Devices Description No Information Available Encounters Type Date Location Provider Dx Diagnosis Office Visit 01/15/2023 11:00a Kylie Costa PA-C N40.1 Benign prosta tic hyperplasia [...] Acute kidney failure, unspec ified [facility] [place] 02/28/2023 E55.9 Vitamin D deficiency, unspec ified [facility] [place] 02/28/2023 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, stag e 4 (severe) [facility] [place] 02/13/2023 I50.9 Heart failure, unspecified K dusty Pang JR DO 02/13/2023 I50.9 Heart failure, unspecified L ab - [place] 02/13/2023 E11.21 Type 2 diabetes mellitus with diabetic nephropathy Vinod Pang JR, DO 02/05/2023 N17.9 Acute kidney failure, unspec ified Vinod Pang JR, DO 02/05/2023 N17.9 Acute kidney failure, unspec ified [facility] [place] 02/05/2023 E55.9 Vitamin D deficiency, unspec ified Vinod Pang JR, DO 02/05/2023 E55.9 Vitamin D deficiency, unspec ified [facility] [place] 02/05/2023 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, stag e 4 (severe) Vinod Pang JR, DO 02/05/2023 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, stag e 4 (severe) [facility] [place] 01/15/2023 N40.1 Benign prostatic hyperplasia with lower urinary tract symptoms Pierre Costa PA-C 01/15/2023 A41.50 Gram-negative sepsis, unspec ified Pierre Costa PA-C 11/09/2022 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, stag e 4 (severe) Vinod Pang JR, DO 11/09/2022 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, stag e 4 (severe) [facility] [place] 11/09/2022 D64.9 Anemia, unspecified Vinod Pang JR, [...] DO 10/04/2022 Z23 Encounter for immunization K felixriya Pang JR, DO 10/03/2022 N25.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 arathyroidism of renal origin Vinod Pang JR, DO 10/03/2022 N25.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 arathyroidism of renal origin [facility] [place] 10/03/2022 E78.00 Pure hypercholesterolemia, u nspecified Vinod Pang JR, DO 10/03/2022 E78.00 Pure hypercholesterolemia, u nspecified [facility] [place] 10/03/2022 E88.81 Metabolic syndrome Vinod Pagn JR, DO 10/03/2022 E88.81 Metabolic syndrome [facility] [place] 10/03/2022 E11.21 Type 2 diabetes mellitus with diabetic nephropathy Vinod Pang JR, DO 09/01/2022 N17.9 Acute kidney failure, unspec ified Vinod Pang JR, DO 09/01/2022 N17.9 Acute kidney failure, unspec ified [facility] [place] Plan of Treatment Future Appointment(s):* 04/11/2023 9:00 am - Vinod Pang JR, DO at [place] * 04/04/2023 6:30 am - [facility] [place] Functional Status Description No Information Available Mental Status Description No Information Available Referrals Refer to Reason for Referral Status Appt Timothy Zi Silva [address] [place] [address] Dr Hunter [phone]
--- OUTSIDE RECORDS SUMMARY | 2023-08-21 23:57 | External Medical Summary | Continuity of Care Document ---
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 Name Role Phone GI - Gastroenterology Care Team Information Rece Fermín Harrell MD Care Team Information Receiv er [phone] Rory Hodge Care Team Information Career Representative [phone] Nixon Aden MD Care Team Information Career Representative [phone] Abran Eugene JR - Interven tional Pain Medicine Care Team Information Career Representative [phone] Medardo Trinidad MD Care Team Information Receive r [phone] Sinan Marks MD Care Team Information Receive r [phone] Problems Active Problems Provider Date Chronic kidney [...] Pang JR, DO On set: 09/01/2015 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 Monitoring Analyst (Cu rrent) Use Encounter Vinod Pang JR [...] SIG Qnty Indications Ordering Provider Date Clopidogrel Fdpaliqjf95yj Tablets Take One (1) Tablet By Mouth Every Day 30tabs I73.9 Vinod Pang JR, DO 08/24/2021 Citalopram Fdlsqwzilkif61vm Tablets Take One (1) Tablet By Mouth Every Day 90tabs F33.1 Vinod Pang JR, DO 06/23/2019 Snmqoajvyiq4mg Tablets Take One Tablet By Mouth Once Daily 30tabs Vinod Pang JR, DO 11/12/2017 Oxycodone-Acetaminophe n7.5-325mg Tablets take one tablet every 6 h as needed pain 60tabs Vinod Pang JR, DO 01/22/[address] 1 po qd I73.9 Unknown Atorvastatin Vkrmfwa50yq Tablets Take One Tablet By Mouth AT Bedtime 90tabs E78.0 Vinod Pang JR, DO E78.00 Xizswr87678Zlcx/ML Solution Monthly Un known Albuterol Sulfate LJM563(90B ase) mcg/Act Aerosol 2 puffs by mouth every 4-6 hours as needed wheezing Unknown Tbvqedismp41mw Tablets 1 by mouth twice a day 180tabs Unknown Pantoprazole Vuucpx23lu Tabl ets DR 1 by mouth every day Unknown 000 Sexryif3tm Tablets 1 by mouth twice a day Unknown Bumetanide0.5mg Tablets 1 or 2 by mouth every day as needed Unknown Tamsulosin HCL0.4mg Capsules 1 by mouth every day Unknown History Medications Tbqyepnyix938mv Tablets take 1 tab by mouth twice a day x 14 days 28tabs Vniod Pang JR, DO 01/10/2023 - 01/29/2023 Medications Administered in Office Medication SIG Qnty Indications Ordering Provider Date Rocephin Inj 250 MGInjection E pilar Mcbride MD 09/01/2020 Injection Methylprednisolone Acetate 20 MGInjection Jordan Tao 11/16/2017 Rocephin Inj 250 MGInjection Vinod Pang JR, DO 02/15/2010 Influ A (H1N1) VaccineInjection Vinod Pang JR, DO 10/21/2009 Immunizations CPT Code Status Date Vaccine Lot # [id number] Given 10/04/2022 Influenza Vaccine High Do se 0.5ML [id number] U-FLU Given 08/11/2020 Influenza,Unspecified 74746 Given 08/11/2020 Influenza Vacci ne-Administered at another facility U-FLU Given 08/23/2019 Influenza,Unspecified 96887 Given 08/23/2019 Influenza Vacci ne-Administered at another facility 00971 Given 07/11/2018 Influenza Vac, Split, Preservative Free High Dose Age 65 & > [id number] 35796 Given 10/02/2017 Pneumococcal Conjugate-Pr evnar 13 17970 Given 10/02/2017 Influenza Vac, Split, Preservative Free High Dose Age 65 & > 47104 Given 08/14/2016 Influenza Virus Vaccine, Quadrivalent, Im Use [id number] 21670 Given 09/01/2015 Influenza Vac, Split, Preservative Free High Dose Age 65 & > [id number] 91738 Given 09/01/2015 Pneumococcal Conjugate-Pr evnar 13 [id number] 69967 Given 07/21/2014 Influenza Vac, Split, Preservative Free High Dose Age 65 & > [id number] U-FLU Given 07/21/2014 Influenza,Unspecified 81000 Given 01/31/2014 Pneumococcal Vaccine/Pneu movax 23 79816 Given 07/17/2013 Influenza Vac, Split, Preservative Free High Dose Age 65 & > [id number] 38375 Given 07/24/2012 Influenza Vac, Split, Preservative Free High Dose Age 65 & > [id number] 24940 Given 07/04/2011 Influenza Vac, Split, Preservative Free High Dose Age 65 & > [id number] 47812 Given 08/16/2010 Pneumococcal Vaccine/Pneu movax 23 [id number] 41250 Given 10/21/2009 Influenza Vac, Split 3 Yr s And Up [id number] 50453 Given 07/24/2008 Influenza Vac, Split 3 Yr s And Up U-FLU Given 07/22/2008 Influenza,Unspecified 50792 Given 10/27/2004 Influenza Vac, Split 3 Yr s And Up 90015 Given 07/22/2004 Pneumococcal Vaccine/Pneu movax 23 [id number] Refused 07/26/2021 Moderna Sars-Co v-2 (Covid-19) vaccine, 100 mcg/ 0.5 mL 12Y+ 65278 Refused 09/28/2020 Tdap (Tetanus, diphtheria & acel. pertussis) Adacel or Boostrix 75958 Refused 09/28/2020 Shingrix 00468 Refused 08/19/2020 Influenza Virus Vaccine, Quadrivalent, Im Use [id number] Refused 07/11/2016 Influenza Vac, Split, Preservative Free [...] Range N ote Laboratory test finding 02/28/2023 [facility]. [address] [place] [address] [phone] Vitd-25Oh <pending> Laboratory test finding 02/13/2023 [facility] [address] [place] [address] [phone] Magnesium 2.1 mg/dL 1.7-2.8 1 BMP 02/13/2023 [facility] [address] [place] [address] [phone] Glucose 99 mg/dL 70-110 2 BUN 59 mg/dL High 6-25 Creatinine 3.0 mg/dL High 0.7-1.3 Sodium 142 mEq/L 135-145 Potassium 3.8 mEq/L 3.5-5.0 Chloride 106 mEq/L 95-107 Co-2 27 mEq/L 24-31 Calcium 9.0 mg/dL 8.5-10.6 GFR 22 Low >60 Laboratory test finding 02/13/2023 [facility]. [address] [place] [address] [phone] BNP 490.0 pg/mL Critical high 0.0-100.0 3 H & H 02/13/2023 [facility] [address] [place] [address] [phone] HGB 9.9 GR/DL Low 12.5-17.5 HCT 30.6 % Low 37.5-52.5 Renal Panel 02/05/2023 [facility] [address] [place] [address] [phone] Glucose 104 mg/dL 70-110 4 BUN 42 mg/dL High 6-25 Creatinine 3.0 mg/dL High 0.7-1.3 Sodium 150 mEq/L High 135-145 Potassium 4.9 mEq/L 3.5-5.0 Chloride 114 mEq/L High 95-107 Co-2 25 mEq/L 24-31 Calcium 8.9 mg/dL 8.5-10.6 Phosphorus 3.7 mg/dL 2.5-4.8 Albumin 3.8 g/dL 3.0-5.2 GFR 22 Low >60 CBC No Diff 02/05/2023 [facility] [address] [place] [address] [phone] WBC 5.1 10 3.1-9.2 RBC 3.28 10 Low 4.00-5.80 HGB 9.6 GR/DL Low 12.5-17.5 HCT 30.9 % Low 37.5-52.5 MCV 94.4 CUMICR 82.6-95.8 MCH 29.3 PICOGR 27.9-32.9 MCHC 31.1 % Low 32.6-35.4 RDW 17.8 % High 11.4-14.6 PLT 195 10 140-350 MPV 8.2 CUMICR 7.0-10.6 Laboratory test finding 02/05/2023 [facility] [address] [place] [address] [phone] Vitd-25Oh 38 ng/mL 30-100 CBC No Diff 11/09/2022 [facility] [address] [place] [address] [phone] WBC 7.2 10 3.1-9.2 5 RBC 3.66 10 Low 4.00-5.80 HGB 11.3 GR/DL Low 12.5-17.5 HCT 35.1 % Low 37.5-52.5 MCV 96.0 CUMICR High 82.6-95.8 MCH 30.9 PICOGR 27.9-32.9 MCHC 32.2 % Low 32.6-35.4 RDW 16.7 % High 11.4-14.6 PLT 243 10 140-350 MPV 7.7 CUMICR 7.0-10.6 Tibc 11/09/2022 [facility] [address] [place] [address] [phone] Tibc 337 g /dL 260-400 Transferrin 241 mg/dL 200-400 Iron Panel([employer]) 11/09/2022 [facility]. [address] [place] [address] [phone] Iron 80 g /dL 45-140 6 % Saturation 24 % Low 30-35 Laboratory test finding 11/09/2022 [facility] [address] [place], [place] [phone] Ferritin 64.20 ng/mL 22.00-415.0 Renal Panel 11/09/2022 [facility] [address] [place] [address] [phone] Glucose 96 mg/dL 70-110 BUN 50 mg/dL High 6-25 Creatinine 3.4 mg/dL Critical high 0.7-1.3 7 Sodium 141 mEq/L 135-145 Potassium 4.5 mEq/L 3.5-5.0 Chloride 108 mEq/L High 95-107 Co-2 21 mEq/L Low 24-31 Calcium 8.9 mg/dL 8.5-10.6 Phosphorus 4.3 mg/dL 2.5-4.8 Albumin 3.7 g/dL 3.0-5.2 GFR 19 Low >60 Comp. Met 10/03/2022 [facility] [address] [place] [address] [phone] Glucose 100 mg/dL 70-110 BUN 46 mg/dL [...] 2.0-3.4 GFR 23 Low >60 Lipid 10/03/2022 [facility] [address] [place], [place] [phone] Cholesterol 139 mg/dL 0-200 8 Triglyceride 68 mg/dL 0-150 9 HDLD 52 mg/dL See Comment 10 Measured LDL 74 mg/dL 0-130 11 Calc VLDL 13.6 mg/dL See Comment 12 Chol/HDL 2.7 RATIO See Comment 13 Non-HDL 87 mg/dL See Comment 14 CBC W/Diff 10/03/2022 [facility]. [address] [place] [address] [phone] WBC 6.1 10 3.1-9.2 RBC 3.60 10 Low 4.00-5.80 HGB 11.2 GR/DL Low 12.5-17.5 HCT 34.6 % Low 37.5-52.5 MCV 95.9 CUMICR High 82.6-95.8 MCH 31.2 PICOGR 27.9-32.9 MCHC 32.5 % Low 32.6-35.4 RDW 17.2 % High 11.4-14.6 PLT 298 10 140-350 MPV 7.1 CUMICR 7.0-10.6 %Neut 66.0 % 40.0-75.0 %Lymph 12.3 % Low 17.0-45.0 %[place] 11.5 % High 1.0-11.0 %Eos 9.4 % High 0.0-6.0 %Baso 0.8 % 0.0-2.0 #Neut 4.0 10 1.5-8.0 #Lymph 0.8 10 0.8-3.2 #[place] 0.7 10 0.0-0.8 #Eos 0.6 10 High 0.0-0.4 #Baso 0.0 10 0.0-0.2 Laboratory test finding 10/03/2022 [facility] [address] [place] [address] [phone] TSH 3.43 uIU/mL 0.50-6.00 FRT4 0.82 ng/dL 0.75-1.54 Iron Panel([employer]) 10/03/2022 [facility]. [address] [place] [address] [phone] Iron 59 g /dL 45-140 % Saturation 18 % Low 30-35 Tibc 10/03/2022 [facility] [address] [place] [address] [phone] Tibc 328 g /dL 260-400 Transferrin 234 mg/dL 200-400 Laboratory test finding 10/03/2022 [facility] [address] [place] [address] [phone] Ferritin 122.00 ng/mL 22.00-415.0 Hba1c 10/03/2022 [facility] [address] [place], [place] [phone] A1c 5.80 % 4.70-6.50 15 Renal Panel 09/01/2022 [facility] [address] [place] [address] [phone] Glucose 91 mg/dL 70-110 16, 17 BUN 52 mg/dL High 6-25 Creatinine 3.1 mg/dL Critical high 0.7-1.3 Sodium 144 mEq/L 135-145 Potassium 4.5 mEq/L 3.5-5.0 Chloride 107 mEq/L 95-107 Co-2 27 mEq/L 24-31 Calcium 9.5 mg/dL 8.5-10.6 Phosphorus 3.8 mg/dL 2.5-4.8 Albumin 3.5 g/dL 3.0-5.2 GFR 21 Low >60 CBC No Diff 09/01/2022 [facility] [address] [place] [address] [phone] WBC 9.6 10 High 3.1-9.2 RBC 3.71 10 Low 4.00-5.80 HGB 11.5 GR/DL Low 12.5-17.5 HCT 35.5 % Low 37.5-52.5 MCV 95.6 CUMICR 82.6-95.8 MCH 31.1 PICOGR 27.9-32.9 MCHC 32.5 % Low 32.6-35.4 RDW 16.6 % High 11.4-14.6 PLT 232 10 140-350 MPV 7.1 CUMICR 7.0-10.6 1 Please fax results agatha Baez PA-C [phone] F- [phone] 2 REPORT FAXED TO DOCT [facility], REQUESTED ON REQUISITION.02/14/23 LM 3 CRITICAL RESULTS LUCI IFIED, FAXED, AND CALLED TO LASHON HENRY @ 4:09. 02/13/23 4 REPORT FAXED TO DOCT [facility], REQUESTED ON REQUISITION. 02.06.23 ESEQUIEL 5 Fax to [phone] [facility] P: [phone] 6 REPORT FAXED TO DOCT OR, REQUESTED [...] Fax results to [facility] (F) [phone] CRITICAL RESULTS LUCI IFIED, FAXED, AND CALLED TO @ 1524 09/01/2022 GLUCOSE COMMENTS REPORT FAXED TO DOCTOR, REQUESTED ON REQUISITION.09/04/22 Procedures Date Code Description Status 02/28/2023 23311 Venipuncture Routine Complet ed 02/13/2023 64033 Venipuncture Routine Complet ed 01/15/2023 1111F D/C Medications Reconciled W/Current Medications In Outpt MR Completed 01/12/2023 1111F D/C Medications Reconciled W/Current Medications In Outpt MR Completed 11/09/2022 58596 Venipuncture Routine Complet ed 10/04/2022 G0008 Influenza Admin Completed 10/04/2022 3078F PVRP Diastolic BP <80 mmHg C ompleted 10/04/2022 3075F PVRP Systolic BP 130 To 139 MMHG Completed 10/03/2022 81935 Venipuncture Routine Complet ed 09/01/2022 46775 Venipuncture Routine Complet ed Medical Devices Description [...] Acute kidney failure, unspec ified [facility] 02/28/2023 E55.9 Vitamin D deficiency, unspec ified [facility] 02/28/2023 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, stag e 4 (severe) [facility] 02/13/2023 I50.9 Heart failure, unspecified K dusty Pang JR DO 02/13/2023 I50.9 Heart failure, unspecified L ab - [facility] 02/13/2023 E11.21 Type 2 diabetes mellitus with diabetic nephropathy Vinod Pang JR, DO 02/05/2023 N17.9 Acute kidney failure, unspec ified Vinod Pang JR, DO 02/05/2023 N17.9 Acute kidney failure, unspec ified [facility] 02/05/2023 E55.9 Vitamin D deficiency, unspec ified Vinod Pang JR, DO 02/05/2023 E55.9 Vitamin D deficiency, unspec ified [facility] 02/05/2023 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, stag e 4 (severe) Vinod Pang JR, DO 02/05/2023 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, stag e 4 (severe) [facility] 01/15/2023 N40.1 Benign prostatic hyperplasia with lower urinary tract symptoms Pierre Costa PA-C 01/15/2023 A41.50 Gram-negative sepsis, unspec ified Pierre Costa PA-C 11/09/2022 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, stag e 4 (severe) Vinod Pang JR, DO 11/09/2022 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, stag e 4 (severe) [facility] 11/09/2022 D64.9 Anemia, unspecified Vinod Pang JR, [...] hyperp arathyroidism of renal origin [facility] 10/03/2022 E78.00 Pure hypercholesterolemia, u nspecified Vinod Pang JR, DO 10/03/2022 E78.00 Pure hypercholesterolemia, u nspecified [facility] 10/03/2022 E88.81 Metabolic syndrome Vinod Pang JR, DO 10/03/2022 E88.81 Metabolic syndrome [facility] [place] 10/03/2022 E11.21 Type 2 diabetes mellitus with diabetic nephropathy Vinod Pang JR, DO 09/01/2022 N17.9 Acute kidney failure, unspec ified Vinod Pang JR, DO 09/01/2022 N17.9 Acute kidney failure, unspec ified [facility] Plan of Treatment Future Appointment(s):* 04/11/2023 9:00 am - Vinod Pang JR, DO at [facility] * 04/04/2023 6:30 am - [facility] Functional Status Description No Information Available Mental Status Description No Information Available Referrals Refer to Reason for Referral Status Appt Timothy Zi Silva [address] [place] [address] Dr Hunter 2 [phone]
--- OUTSIDE RECORDS SUMMARY | 2023-08-21 23:57 | External Medical Summary | Continuity of Care Document ---
Author Name Lab - [place] Address [address] [place] [address] Phone [phone] [facility] er, Address [address] [place] [address] Phone [phone] Care Team Providers Care Access Rep Name Role Phone GI - Gastroenterology Care Team Information Rece Fermín Harrell MD Care Team Information Receiv er [phone] Rory Hodge Care Team Information Press Hand Supervisor + [phone] Nixon Aden MD Care Team Information Press Hand Supervisor + [phone] Abran Eugene JR - Interven tional Pain Medicine Care Team Information Press Hand Supervisor [phone] Medardo Trinidad MD Care Team Information Receive r [phone] Sinan Marks MD Care Team Information Receive r [phone] Problems Active Problems Provider Date Chronic kidney [...] Pang JR, DO On set: 09/01/2015 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 Apparel Cutter (Cu rrent) Use Encounter Vinod Pang JR [...] SIG Qnty Indications Ordering Provider Date Clopidogrel Cksjeaepj57js Tablets Take One (1) Tablet By Mouth Every Day 30tabs I73.9 Vinod Pang JR, DO 08/24/2021 Citalopram Gbsrtbqlkasi26ig Tablets Take One (1) Tablet By Mouth Every Day 90tabs F33.1 Vinod Pang JR, DO 06/23/2019 Llswynjbeed7vt Tablets Take One Tablet By Mouth Once Daily 30tabs Vinod Pang JR, DO 11/12/2017 Oxycodone-Acetaminophe n7.5-325mg Tablets take one tablet every 6 h as needed pain 60tabs Vinod Pang JR, DO 01/22/[address] 1 po qd I73.9 Unknown Atorvastatin Fpulwlr59kl Tablets Take One Tablet By Mouth AT Bedtime 90tabs E78.0 Vinod Pang JR, DO E78.00 Lyvwas48794Rmfe/ML Solution Monthly Un known Albuterol Sulfate GPG204(90B ase) mcg/Act Aerosol 2 puffs by mouth every 4-6 hours as needed wheezing Unknown Wjefiloehv45di Tablets 1 by mouth twice a day 180tabs Unknown Pantoprazole Weknox85ln Tabl ets DR 1 by mouth every day Unknown 000 Tyjwhwx7cm Tablets 1 by mouth twice a day Unknown Bumetanide0.5mg Tablets 1 or 2 by mouth every day as needed Unknown Tamsulosin HCL0.4mg Capsules 1 by mouth every day Unknown History Medications Hegluuifno180vh Tablets take 1 tab by mouth twice a day x 14 days 28tabs Viond Pang JR, DO 01/10/2023 - 01/29/2023 Medications Administered in Office Medication SIG Qnty Indications Ordering Provider Date Rocephin Inj 250 MGInjection E pilar Mcbride MD 09/01/2020 Injection Methylprednisolone Acetate 20 MGInjection Jordan Tao 11/16/2017 Rocephin Inj 250 MGInjection Vinod Pang JR, DO 02/15/2010 Influ A (H1N1) VaccineInjection Vinod Pang JR, DO 10/21/2009 Immunizations CPT Code Status Date Vaccine Lot # [id number] Given 10/04/2022 Influenza Vaccine High Do se 0.5ML [id number] U-FLU Given 08/11/2020 Influenza,Unspecified 88814 Given 08/11/2020 Influenza Vacci ne-Administered at another facility U-FLU Given 08/23/2019 Influenza,Unspecified 88636 Given 08/23/2019 Influenza Vacci ne-Administered at another facility 22231 Given 07/11/2018 Influenza Vac, Split, Preservative Free High Dose Age 65 & > [id number] 49026 Given 10/02/2017 Pneumococcal Conjugate-Pr evnar 13 71318 Given 10/02/2017 Influenza Vac, Split, Preservative Free High Dose Age 65 & > [id number] Given 08/14/2016 Influenza Virus Vaccine, Quadrivalent, Im Use [id number] 85846 Given 09/01/2015 Influenza Vac, Split, Preservative Free High Dose Age 65 & > [id number] 63425 Given 09/01/2015 Pneumococcal Conjugate-Pr evnar 13 [id number] 33913 Given 07/21/2014 Influenza Vac, Split, Preservative Free High Dose Age 65 & > [id number] U-FLU Given 07/21/2014 Influenza,Unspecified 74083 Given 01/31/2014 Pneumococcal Vaccine/Pneu movax 23 07756 Given 07/17/2013 Influenza Vac, Split, Preservative Free High Dose Age 65 & > [id number] 89773 Given 07/24/2012 Influenza Vac, Split, Preservative Free High Dose Age 65 & > [id number] 35870 Given 07/04/2011 Influenza Vac, Split, Preservative Free High Dose Age 65 & > [id number] 28603 Given 08/16/2010 Pneumococcal Vaccine/Pneu movax 23 [id number] 54357 Given 10/21/2009 Influenza Vac, Split 3 Yr s And Up [id number] 15327 Given 07/24/2008 Influenza Vac, Split 3 Yr s And Up U-FLU Given 07/22/2008 Influenza,Unspecified 22226 Given 10/27/2004 Influenza Vac, Split 3 Yr s And Up 61337 Given 07/22/2004 Pneumococcal Vaccine/Pneu movax 23 [id number] Refused 07/26/2021 Moderna Sars-Co v-2 (Covid-19) vaccine, 100 mcg/ 0.5 mL 12Y+ 48480 Refused 09/28/2020 Tdap (Tetanus, diphtheria & acel. pertussis) Adacel or Boostrix 49852 Refused 09/28/2020 Shingrix 95930 Refused 08/19/2020 Influenza Virus Vaccine, Quadrivalent, Im Use [id number] Refused 07/11/2016 Influenza Vac, Split, Preservative Free [...] Range N ote CBC No Diff 02/28/2023 [facility]. [address] [place], [place] [address] [phone] WBC 5.9 10^3/M3 3.1-9.2 RBC 2.90 10^6/M3 Low 4.00-5.80 HGB 8.6 GR/DL Low 12.5-17.5 HCT 27.9 % Low 37.5-52.5 MCV 96.3 CUMICR High 82.6-95.8 MCH 29.6 PICOGR 27.9-32.9 MCHC 30.8 % Low 32.6-35.4 RDW 18.5 % High 11.4-14.6 PLT 238 10^3/M3 140-350 MPV 8.0 CUMICR 7.0-10.6 Laboratory test finding 02/28/2023 [facility]. [address] [place], [place] [id number] [phone] Vitd-25Oh 46 ng/mL 30-100 Renal Panel 02/28/2023 [facility]. [address] [place], [place] [id number] [phone] Glucose 96 mg/dL 70-110 1 BUN 56 mg/dL High 6-25 Creatinine 2.9 mg/dL High 0.7-1.3 Sodium 142 mEq/L 135-145 Potassium 4.4 mEq/L 3.5-5.0 Chloride 109 mEq/L High 95-107 Co-2 23 mEq/L Low 24-31 Calcium 8.4 mg/dL Low 8.5-10.6 Phosphorus 3.3 mg/dL 2.5-4.8 Albumin 3.5 g/dL 3.0-5.2 GFR 22 Low >60 Laboratory test finding 02/13/2023 [facility]. [address] [place], [place] [id number] [phone] Magnesium 2.1 mg/dL 1.7-2.8 2 BMP 02/13/2023 [facility]. [address] [place] [address] [phone] Glucose 99 mg/dL 70-110 3 BUN 59 mg/dL High 6-25 Creatinine 3.0 mg/dL High 0.7-1.3 Sodium 142 mEq/L 135-145 Potassium 3.8 mEq/L 3.5-5.0 Chloride 106 mEq/L 95-107 Co-2 27 mEq/L 24-31 Calcium 9.0 mg/dL 8.5-10.6 GFR 22 Low >60 Laboratory test finding 02/13/2023 [facility]. [address] [place] [address] [phone] BNP 490.0 pg/mL Critical high 0.0-100.0 4 H & H 02/13/2023 [facility]. [address] [place], [place] [address] [phone] HGB 9.9 GR/DL Low 12.5-17.5 HCT 30.6 % Low 37.5-52.5 Renal Panel 02/05/2023 [facility]. [address] [place], [place] 3808087 [phone] Glucose 104 mg/dL 70-110 5 BUN 42 mg/dL High 6-25 Creatinine 3.0 mg/dL High 0.7-1.3 Sodium 150 mEq/L High 135-145 Potassium 4.9 mEq/L 3.5-5.0 Chloride 114 mEq/L High 95-107 Co-2 25 mEq/L 24-31 Calcium 8.9 mg/dL 8.5-10.6 Phosphorus 3.7 mg/dL 2.5-4.8 Albumin 3.8 g/dL 3.0-5.2 GFR 22 Low >60 CBC No Diff 02/05/2023 [facility]. [address] [place], [place] [id number] [phone] WBC 5.1 10 3.1-9.2 RBC 3.28 10 Low 4.00-5.80 HGB 9.6 GR/DL Low 12.5-17.5 HCT 30.9 % Low 37.5-52.5 MCV 94.4 CUMICR 82.6-95.8 MCH 29.3 PICOGR 27.9-32.9 MCHC 31.1 % Low 32.6-35.4 RDW 17.8 % High 11.4-14.6 PLT 195 10 140-350 MPV 8.2 CUMICR 7.0-10.6 Laboratory test finding 02/05/2023 [facility]. [address] [place] [address] [phone] Vitd-25Oh 38 ng/mL 30-100 Laboratory test finding 11/09/2022 [facility]. [address] [place] [address] [phone] Ferritin 64.20 ng/mL 22.00-415.0 6 Tibc 11/09/2022 [facility]. [address] [place] [address] [phone] Tibc 337 g /dL 260-400 Transferrin 241 mg/dL 200-400 [facility] 11/09/2022 [facility] Lab. [address] [place], [place] [phone] Iron 80 g /dL 45-140 7 % Saturation 24 % Low 30-35 CBC No Diff 11/09/2022 [facility]. [address] [place] [address] [phone] WBC 7.2 10 3.1-9.2 RBC 3.66 10 Low 4.00-5.80 HGB 11.3 GR/DL Low 12.5-17.5 HCT 35.1 % Low 37.5-52.5 MCV 96.0 CUMICR High 82.6-95.8 MCH 30.9 PICOGR 27.9-32.9 MCHC 32.2 % Low 32.6-35.4 RDW 16.7 % High 11.4-14.6 PLT 243 10 140-350 MPV 7.7 CUMICR 7.0-10.6 Renal Panel 11/09/2022 [facility]. [address] [place], [place] 8128[address] [phone] Glucose 96 mg/dL 70-110 BUN 50 mg/dL High 6-25 Creatinine 3.4 mg/dL Critical high 0.7-1.3 8 Sodium 141 mEq/L 135-145 Potassium 4.5 mEq/L 3.5-5.0 Chloride 108 mEq/L High 95-107 Co-2 21 mEq/L Low 24-31 Calcium 8.9 mg/dL 8.5-10.6 Phosphorus 4.3 mg/dL 2.5-4.8 Albumin 3.7 g/dL 3.0-5.2 GFR 19 Low >60 Comp. Met 10/03/2022 [facility]. [address] [place] [address] [phone] Glucose 100 mg/dL 70-110 BUN 46 mg/dL [...] 2.0-3.4 GFR 23 Low >60 Lipid 10/03/2022 [facility]. [address] [place] [address] [phone] Cholesterol 139 mg/dL 0-200 9 Triglyceride 68 mg/dL 0-150 10 HDLD 52 mg/dL See Comment 11 Measured LDL 74 mg/dL 0-130 12 Calc VLDL 13.6 mg/dL See Comment 13 Chol/HDL 2.7 RATIO See Comment 14 Non-HDL 87 mg/dL See Comment 15 CBC W/Diff 10/03/2022 [facility]. [address] [place] [address] [phone] WBC 6.1 10 3.1-9.2 RBC 3.60 10 Low 4.00-5.80 HGB 11.2 GR/DL Low 12.5-17.5 HCT 34.6 % Low 37.5-52.5 MCV 95.9 CUMICR High 82.6-95.8 MCH 31.2 PICOGR 27.9-32.9 MCHC 32.5 % Low 32.6-35.4 RDW 17.2 % High 11.4-14.6 PLT 298 10 140-350 MPV 7.1 CUMICR 7.0-10.6 %Neut 66.0 % 40.0-75.0 %Lymph 12.3 % Low 17.0-45.0 %[place] 11.5 % High 1.0-11.0 %Eos 9.4 % High 0.0-6.0 %Baso 0.8 % 0.0-2.0 #Neut 4.0 10 1.5-8.0 #Lymph 0.8 10 0.8-3.2 #[place] 0.7 10 0.0-0.8 #Eos 0.6 10 High 0.0-0.4 #Baso 0.0 10 0.0-0.2 Laboratory test finding 10/03/2022 [facility]. [address] [place], [place] [address] [phone] TSH 3.43 uIU/mL 0.50-6.00 FRT4 0.82 ng/dL 0.75-1.54 Iron Panel([facility]) 10/03/2022 [facility] Lab. [address] [place] [address] [phone] Iron 59 g /dL 45-140 % Saturation 18 % Low 30-35 Tibc 10/03/2022 [facility]. [address] [place] [address] [phone] Tibc 328 g /dL 260-400 Transferrin 234 mg/dL 200-400 Laboratory test finding 10/03/2022 [facility]. [address] [place] [address] [phone] Ferritin 122.00 ng/mL 22.00-415.0 Hba1c 10/03/2022 [facility]. [address] [place] [address] [phone] A1c 5.80 % 4.70-6.50 16 1 REPORT FAXED TO DOCT OR, REQUESTED ON REQUISITION.03/01/23 LM 2 Please fax results agatha Baez PA-C [phone] F- [phone] 3 REPORT FAXED TO DOCT [facility], REQUESTED ON REQUISITION.02/14/23 LM 4 CRITICAL RESULTS LUCI IFIED, FAXED, AND CALLED TO LASHON HENRY @ 4:09. 02/13/23 5 REPORT FAXED TO DOCT [facility], REQUESTED ON REQUISITION. 02.06.23 ESEQUIEL 6 Fax to [phone] [facility] P: [phone] 7 REPORT FAXED TO DOCT OR, REQUESTED [...] 240-10 Procedures Date Code Description Status 02/28/2023 25186 Venipuncture Routine Complet ed 02/13/2023 26145 Venipuncture Routine Complet ed 01/15/2023 1111F D/C Medications Reconciled W/Current Medications In Outpt MR Completed 01/12/2023 1111F D/C Medications Reconciled W/Current Medications In Outpt MR Completed 11/09/2022 08465 Venipuncture Routine Complet ed 10/04/2022 G0008 Influenza Admin Completed 10/04/2022 3078F PVRP Diastolic BP <80 mmHg C ompleted 10/04/2022 3075F PVRP Systolic BP 130 To 139 MMHG Completed 10/03/2022 28380 Venipuncture Routine Complet ed Medical Devices Description No Information Available Encounters Type Date Location Provider Dx Diagnosis Office Visit 01/15/2023 11[place]-C N40.1 Benign prosta tic hyperplasia [...] Acute kidney failure, unspec ified [facility] - [place] 02/28/2023 E55.9 Vitamin D deficiency, unspec ified [facility] - [place] 02/28/2023 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, stag e 4 (severe) [facility] - [place] 02/13/2023 I50.9 Heart failure, unspecified K dusty Pang JR, DO 02/13/2023 I50.9 Heart failure, unspecified L ab - [place] 02/13/2023 E11.21 Type 2 diabetes mellitus with diabetic nephropathy Vinod Pang JR, DO 02/05/2023 N17.9 Acute kidney failure, unspec ified Vinod Pang JR, DO 02/05/2023 N17.9 Acute kidney failure, unspec ified Lab - [place] 02/05/2023 E55.9 Vitamin D deficiency, unspec ified Vinod Pang JR, DO 02/05/2023 E55.9 Vitamin D deficiency, unspec ified Lab - [place] 02/05/2023 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, stag e 4 (severe) Vinod Pang JR, DO 02/05/2023 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, stag e 4 (severe) [facility] - [place] 01/15/2023 N40.1 Benign prostatic hyperplasia with lower urinary tract symptoms JOSIE Flood-C 01/15/2023 A41.50 Gram-negative sepsis, unspec ified JOSIE Flood-C 11/09/2022 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, stag e 4 (severe) Vinod Pang JR, DO 11/09/2022 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, stag e 4 (severe) Lab - [place] 11/09/2022 D64.9 Anemia, unspecified Vinod Pang JR, [...] hyperp arathyroidism of renal origin Lab - [place] 10/03/2022 E78.00 Pure hypercholesterolemia, u nspecified Vinod Pang JR, DO 10/03/2022 E78.00 Pure hypercholesterolemia, u nspecified Lab - [place] 10/03/2022 E88.81 Metabolic syndrome Vinod Pang JR DO 10/03/2022 E88.81 Metabolic syndrome Lab - [facility] 10/03/2022 E11.21 Type 2 diabetes mellitus with diabetic nephropathy Vinod Pang JR, DO Plan of Treatment Future Appointment(s):* 04/11/2023 9:00 am - Vinod Pang JR, DO at [place] * 04/04/2023 6:30 am - [facility] [place] Functional Status Description No Information Available Mental Status Description No Information Available Referrals Refer to Dr Reason for Referral Status Appt Didi Silva [address] [place] [address] Dr Hunter 4 [phone]
--- OUTSIDE RECORDS SUMMARY | 2023-08-21 23:57 | External Medical Summary ---
Author Name Unknown Address Unknown Organization [facility]:[address] [place] [address] Laboratory Report Ordering Provider Test Date Status DEONNA FELIX 03/19/2023 13:39 Final Observation Date Value Abnormality Reference (Units ) Status WBC 03/20/2023 09:28 6.3 3.1-9.2 (10^3/M3) Final RBC 03/20/2023 09:28 3.06 Below low normal 4.00-5.80 (10^6/M3) Final Hemoglobin 03/20/2023 09:28 9.0 Below low normal 12.5-17.5 (GR/DL) Final HCT 03/20/2023 09:28 29.4 Below low normal 37.5-52.5 (%) Final MCV 03/20/2023 09:28 95.8 82.6-95.8 (CU MICR) Final MCH 03/20/2023 09:28 29.4 27.9-32.9 (AJ GR) Final MCHC 03/20/2023 09:28 30.7 Below low normal 32.6-35.4 (%) Final RDW 03/20/2023 09:28 17.6 Above high normal 11.4-14.6 (%) Final PLT 03/20/2023 09:28 266 140-350 (10^3/M3) Final MPV 03/20/2023 09:28 8.2 7.0-10.6 (CU MICR) Final Neutrophils/100 leukocytes in Blood 03/20/2023 09:28 76.3 Above high normal 40.0-75.0 (%) Final Lymphs % 03/20/2023 09:28 7.3 Below low normal 17.0-45.0 (%) Final Monos 03/20/2023 09:28 8.7 1.0-11.0 (%) Final %EOS 03/20/2023 09:28 7.0 Above high normal 0.0-6.0 (%) Final Basos 03/20/2023 09:28 0.7 0.0-2.0 (%) Final Neutrophils [#/volume] in [place] by Manual count 03/20/2023 09:28 4.8 1.5-8.0 (10^3/M3) Final Lymphs % 03/20/2023 09:28 0.5 Below low normal 0.8-3.2 (10^3/M3) Final Monos 03/20/2023 09:28 0.5 0.0-0.8 (10^3/M3) Final #EOS 03/20/2023 09:28 0.4 0.0-0.4 (10^3/m3) Final #BASO 03/20/2023 09:28 0.0 0.0-0.2 (10^3/m3) Final Performing Location [facility] [address] [place] [address]
--- OUTSIDE RECORDS SUMMARY | 2023-08-21 23:57 | External Medical Summary ---
Author Name Unknown Address Unknown Organization K1C:[facility] [address] [place] [address] Laboratory Report Ordering Provider Test Date Status DEONNA FELIX 03/19/2023 13:39 Final Observation Date Value Abnormality Reference (Units ) Status Natriuretic peptide B [Mass/volume] in Serum or Plasma 03/20/2023 09:32 904.0 Above upper panic limits 0.0-100.0 (pg/ml) Final Performing Location [facility] [address] [place] [id number]
--- OUTSIDE RECORDS SUMMARY | 2023-08-21 23:57 | External Medical Summary ---
Author Name Unknown Address Unknown Organization K1C:[facility] [address] [place] [address] Laboratory Report Ordering Provider Test Date Status DEONNA FELIX 03/19/2023 14:23 Final Observation Date Value Abnormality Reference (Units ) Status URINE SOURCE 03/21/2023 08:31 URINE Final Cholesterol 03/23/2023 10:34 >100,000 COL/CC Final Performing Location [facility] [address] [place] [address] Ordering Provider Test Date Status DEONNA FELIX 03/19/2023 14:23 Final Observation Date Value Abnormality Reference (Units ) Status ISOLATE #1 03/23/2023 10:34 Enterococcus faecium VRE Final AMPICILLIN 03/23/2023 10:34 >8 R Final CIPROFLOXACIN 03/23/2023 10:34 >2 R Final LEVOFLOXACIN 03/23/2023 10:34 >4 R Final LINEZOLID 03/23/2023 10:34 <=2 S Final NITROFURANTOIN 03/23/2023 10:34 <=32 S Final PENICILLIN 03/23/2023 10:34 >8 R Final RIFAMPIM 03/23/2023 10:34 >2 R Final TETRACYCLINE 03/23/2023 10:34 >8 R Final VANCOMYCIN 03/23/2023 10:34 >16 R Final Performing Location [facility] [address] [place] [address]
--- OUTSIDE RECORDS SUMMARY | 2023-08-21 23:57 | External Medical Summary ---
Author Name Unknown Address Unknown Organization [facility]:[place] [address] [place] [address] Laboratory Report Ordering Provider Test Date Status null,[facility] [employer]SP[employer] DRIVER 02/28/2023 13:08 Final Observation Date Value Abnormality Reference (Units ) Status Glucose 03/01/2023 09:47 96 70-110 (MG/DL ) Final BUN 03/01/2023 09:47 56 Above high normal 6-25 (MG/DL) Final Creatinine 03/01/2023 09:47 2.9 Above high normal 0.7- 1.3 (MG/DL) Final Sodium 03/01/2023 09:47 142 135-145 (MEQ/ L) Final Potassium 03/01/2023 09:47 4.4 3.5-5.0 (MEQ/ L) Final Cl 03/01/2023 09:47 109 Above high normal 95-10 7 (MEQ/L) Final CO2 03/01/2023 09:47 23 Below low normal 24-31 (MEQ/L) Final Calcium 03/01/2023 09:47 8.4 Below low normal 8.5-10 .6 (MG/DL) Final PHOSPHORUS 03/01/2023 09:47 3.3 2.5-4.8 (MG/ DL) Final Albumin 03/01/2023 09:47 3.5 3.0-5.2 (G/DL ) Final GFR (estimated) 03/01/2023 09:47 22 Below low normal >60 Final Performing Location [facility] [address] [place] [address]
--- OUTSIDE RECORDS SUMMARY | 2023-08-21 23:57 | External Medical Summary ---
Author Name Unknown Address Unknown Organization K1C:[facility] [address] [place] [address] Laboratory Report Ordering Provider Test Date Status DEONNA FELIX 03/19/2023 13:39 Final Observation Date Value Abnormality Reference (Units ) Status Glucose 03/20/2023 12:09 132 Above high normal 70-11 0 (MG/DL) Final BUN 03/20/2023 12:09 43 Above high normal 6-25 (MG/DL) Final Creatinine 03/20/2023 12:09 3.1 Above upper panic limi ts 0.7-1.3 (MG/DL) Final CRITICAL RESULTS VERIFIED, F AXED, AND CALLED TO TANK JACKSON @ 12:10. 03/20/23
MH
null Sodium 03/20/2023 12:09 141 135-145 (MEQ/ L) Final Potassium 03/20/2023 12:09 4.0 3.5-5.0 (MEQ/ L) Final Cl 03/20/2023 12:09 105 95-107 (MEQ/L ) Final CO2 03/20/2023 12:09 22 Below low normal 24-31 (MEQ/L) Final Calcium 03/20/2023 12:09 9.1 8.5-10.6 (MG/ DL) Final GFR (estimated) 03/20/2023 12:09 21 Below low normal >60 (ML/MIN/1.73 SQM) Final Performing Location [facility] [address] [place] [address]
--- OUTSIDE RECORDS SUMMARY | 2023-08-21 23:57 | External Medical Summary | Summary of Care ---
Author Name Unknown Organization [facility] Address [address] [place] [address] Phone [phone] Care Team Providers Care Supervisor Dehydrogenation Name Role Phone Poly Basilio DO, Kenneth Primary Care Provider [phone] Encounter Details Date Type Department Care Team Description 02/28/2023 Orders Only Unspecified Department Allergies No known active allergiesdocumented as of this encounter (statuses as of 03/01/2023) Medications Medication Sig Dispensed Refills Start Date [...] 650 mg. 0 Active Vitamin D, Ergocalciferol, 44698 units Capsule 50,000 Units. 0 Active ondansetron [...] as of this encounter (statuses as of 03/01/2023) Active Problems Problem Noted Date Anemia 06/20/2022 Moderate malnutrition 04/11/2019 Febrile neutropenia 04/10/2019 Sepsis 04/10/2019 CAD (coronary artery disease) 04/10/2019 CKD (chronic kidney disease) 04/10/2019 Lymphoma 04/10/2019 PVD (peripheral vascular disease) 2018 HTN (hypertension) 04/10/2019 HLD (hyperlipidemia) 04/10/2019 ADVANCE DIRECTIVE INFORMATION 06/07/2009 Overview: No, Advance Directive brochure offered , patient declined. documented as of this encounter (statuses as of 03/01/2023) Immunizations Name Administration Dates Next Due Pneumococcal [...] PCV) 07/22/2005 07/22/2004 Influenza Vaccine (FLU shot) (Season Ended) 2023 07/11/2018, 10/02/2017, 09/01/2015, Additional history exists GFR 02/14/2024 02/28/2023, 05/0 06/2023, 02/05/2023, Additional history exists Albumin/Creatinine Ratio 02/08/2025 02/08/2022 GARDASIL-HPV IMMUNIZATION SERIES Aged Out No longer [...] Procedure Name Priority Date/Time Associated Diagnosis Comments 25-HYDROXY VITAMIN D Routine 02/28/2023 1:08 PM EDT RENAL FUNCTION PANEL Routine 02/28/2023 1:08 PM EDT CBC Routine 02/28/2023 1:08 PM EDT documented in this encounter Results * (ABNORMAL) RENAL FUNCTION PANEL (02/28/2023 1:08 PM EDT) GLUCOSE-OUTSID E LAB 96 70 - 110 MG/DL [facility] Comment:Document delivery by [place] on behalf of [facility] BUN-OUTSIDE LAB 56(H) 6 - 25 MG/DL [facility] Comment:Document delivery by [place] on behalf of [facility] CREATININE-OUT SIDE LAB 2.9(H) 0.7 - 1.3 MG/DL [facility] Comment:Document delivery by [place] on behalf of [facility] SODIUM-OUTSIDE LAB 142 135 - 145 MEQ/L [facility] Comment:Document delivery by [place] on behalf of [facility] POTASSIUM-OUTS BRIT LAB 4.4 3.5 - 5.0 MEQ/L [facility] Comment:Document delivery by [place] on behalf of [facility] CHLORIDE-OUTSI DE LAB 109(H) 95 - 107 MEQ/L [facility] Comment:Document delivery by [place] on behalf of [facility] CO2-OUTSIDE LAB 23(L) 24 - 31 MEQ/L [facility] Comment:Document delivery by [place] on behalf of [facility] CALCIUM-OUTSID E LAB 8.4(L) 8.5 - 10.6 MG/DL [facility] Comment:Document delivery by [place] on behalf of [facility] PHOSPHORUS-OUT SIDE LAB 3.3 2.5 - 4.8 MG/DL [facility] Comment:Document delivery by [place] on behalf of [facility] ALBUMIN - OUTSIDE LAB 3.5 3.0 - 5.2 G/DL [facility] Comment:Document delivery by [place] on behalf of [facility] EGFR-OUTSIDE LAB 22(L) >60 [facility] Comment:Document delivery by [place] on behalf of [facility] 02/28/2023 1:08 PM EDT No Physician Data Unknown LAB BLOOD RAFAEL HERNANDEZ [facility] [address] [place] [address] * (ABNORMAL) CBC (02/28/2023 1:08 PM EDT) WBC-OUTSIDE LAB 5.9 3.1 - 9.2 10^3/M3 [facility] Comment:Document delivery by [place] on behalf of [facility] RBC-OUTSIDE LAB 2.90(L) 4.00 - 5.80 10^6/M3 [facility] Comment:Document delivery by [place] on behalf of [facility] HGB - OUTSIDE LAB 8.6(L) 12.5 - 17.5 GR/DL [facility] Comment:Document delivery by [place] on behalf of [facility] HCT-OUTSIDE LAB 27.9(L) 37.5 - 52.5 % [facility] Comment:Document delivery by [place] on behalf of [facility] MCV-OUTSIDE LAB 96.3(H) 82.6 - 95.8 CU MICR [facility] Comment:Document delivery by [place] on behalf of [facility] MCH-OUTSIDE LAB 29.6 27.9 - 32.9 AJ GR [facility] Comment:Document delivery by [place] on behalf of [facility] MCHC-OUTSIDE LAB 30.8(L) 32.6 - 35.4 % [facility] Comment:Document delivery by [place] on behalf of [facility] RDW-OUTSIDE LAB 18.5(H) 11.4 - 14.6 % [facility] Comment:Document delivery by [place] on behalf of [facility] PLT-OUTSIDE LAB 238 140 - 350 10^3/M3 [facility] Comment:Document delivery by [place] on behalf of [facility] MPV-OUTSIDE LAB 8.0 7.0 - 10.6 CU MICR [facility] Comment:Document delivery by [place] on behalf of [facility] 02/28/2023 1:08 PM EDT No Physician Data Unknown LAB BLOOD ORDE MARY [facility] [address] [place] [address] * 25-HYDROXY VITAMIN D (02/28/2023 1:08 PM EDT) 25-HYDROXY VITAMIN D - OUTSIDE LAB 46 30 - 100 ng/mL [facility] Comment:Document delivery by [place] on behalf of [facility] 02/28/2023 1:08 PM EDT No Physician Data Unknown LAB BLOOD ORDE RABLES [facility] [address] [place] [address] documented in this encounter Advance Directives Latest [...] the patient have Health Care Power of Secondary Market Manager? No Care Teams Supervisor Dehydrogenation Relationship Specialty Start Date End Date Vinod Pang Jr., DO [id number] [facility] [place] [id number] PCP - General 04/26/09 documented as of this encounter
[2023-08-22] MEDS ORDERED: BUMETANIDE 1 MG TAB PO SCH (09:00)
== END 2023-08-21 16:21 | disposition home or self-care (01) | DRG 291 ==
LOC: ED 17:40 → 1E 23:57 → SUATTDRO 23:57 → INTOOBSV 23:57 → 1E 08-20 04:46 → 2S 08-20 19:40
DX: Z95.5 Presence of coronary angioplasty implant and graft; Z79.01 Long term (current) use of anticoagulants; I25.10 Atherosclerotic heart disease of native coronary artery without angina pectoris; I49.2 Junctional premature depolarization; C85.10 Unspecified B-cell lymphoma, unspecified site; D64.9 Anemia, unspecified; I13.2 Hypertensive heart and chronic kidney disease with heart failure and with stage 5 chronic kidney disease, or end stage renal disease; I50.23 Acute on chronic systolic (congestive) heart failure; N17.9 Acute kidney failure, unspecified; B34.1 Enterovirus infection, unspecified; N18.5 Chronic kidney disease, stage 5; J44.1 Chronic obstructive pulmonary disease with (acute) exacerbation; J84.9 Interstitial pulmonary disease, unspecified; J96.21 Acute and chronic respiratory failure with hypoxia; I34.0 Nonrheumatic mitral (valve) insufficiency; G47.33 Obstructive sleep apnea (adult) (pediatric); F17.210 Nicotine dependence, cigarettes, uncomplicated; Z79.02 Long term (current) use of antithrombotics/antiplatelets

== ENCOUNTER 2023-08-27 14:16 | Inpatient (IN) ==
--- NOTE | 2023-08-27 15:12 | XRay Report ---
SINGLE VIEW CHEST CLINICAL HISTORY: Atypical chest pain. FINDINGS: A PA chest radiograph is compared to study dated 08/21/2023. A left subclavian central veno us infusion port is unchanged in position. The heart is enlarged noting atherosclerotic calcification of the thoracic aorta. There is pulmonary vascular congestion. There is bibasilar scarring/atelectas is. No airspace consolidation or large pleural effusion is identified. No pneumothorax is seen. The s keletal structures are osteopenic. The bony thorax is grossly intact. IMPRESSION: Cardiomegaly with pulmonary vascular congestion. ACT 112: Negative or not required by law. Electronically signed by: Cheo Bullard M.D. 08/27/2023 3:11 PM
[2023-08-27 16:41] LABS: Basophils # (auto) 0.03 K/uL (0.00-0.20); Basophils % (auto) 0.4 %; Eosinophils # (auto) 0.53 K/uL (0.00-0.50); Eosinophils % (auto) 6.3 %; Hematocrit (blood only) 40.6 % (42.0-52.0); Hemoglobin 12.4 g/dl (14.0-18.0); Immature Granulocytes # (auto) 0.09 K/uL (0.01-0.20); Immature Granulocytes % (auto) 1.1 %; Lymphocytes # (auto) 0.45 K/uL (1.20-3.40); Lymphocytes % (auto) 5.3 %; Mean Corpuscular Hemoglobin 30.4 pg (25.0-34.0); Mean Corpuscular Hgb Conc 30.5 g/dL (32.0-36.0); Mean Corpuscular Volume 99.5 fL (80.0-100.0); Mean Platelet Volume 9.5 fL (9.4-12.4); Monocytes # (auto) 0.86 K/uL (0.11-0.59); Monocytes % (auto) 10.2 %; Neutrophils # (auto) 6.46 K/uL (1.40-6.50); Neutrophils % (auto) 76.7 %; Platelet Count 254 K/uL (130-400); RDW Coefficient of Variation 16.7 % (11.5-14.5); RDW Standard Deviation 61.9 fL (36.4-46.3); Red Blood Count 4.08 M/uL (4.70-6.10); White Blood Count 8.42 K/ul (4.8-10.8)
[2023-08-27 16:58] LABS: Albumin Globulin Ratio 1.2 (0.9-2); Albumin Level 3.6 gm/dl (3.4-5.0); BUN Creatinine Ratio 17.8 (10-20); Bilirubin,Total 0.6 mg/dl (0.2-1.0); Calcium 9.8 mg/dl (8.6-10.3); Creatinine Clr Calc Pharmacy 21.2 ml/min; Est GFR (African American) 22.3 ml/min; Est GFR (Non-African American) 19.2 ml/min; Globulin 3.1 gm/dl (2.5-4.0); Potassium 4.6 mmol/L (3.5-5.1); Total Protein 6.7 gm/dl (6.0-8.3)
[2023-08-27 17:05] LABS: Troponin I High Sensitivity 21.7 pg/ml (0-20)
[2023-08-27 17:08] LABS: Partial Thromboplastin Time 29.2 Seconds (21.0-31.0); Prothrombin Time 10.9 Seconds (9.0-12.0)
[2023-08-27] MEDS ORDERED: ALBUT/IPRATROP 3MG/0.5MG NEB 3 ML VIAL NEB STA (17:21)
--- NOTE | 2023-08-27 17:26 | Emergency Department Note ---
Impression & Plan Acute dyspnea, COPD (chronic obstructive pulmonary disease), Pulmonary edema, Chronic respiratory failure with hypoxia ED Provider Note ED Provider Note NAME: MEG FINK AGE:78 SEX: Male : 1945 ARRIVES VIA: private vehicle INFORMANT: Patient ED PROVIDER(s): Yessica Ruiz DO CHIEF COMPLAINT: Worsening dyspnea HPI: This is a 78-year-old male presents emerged department due to concern for increased shortness of breath. Patient with significant past medical history including interstitial lung disease, chronic kidney disease, congestive heart failure. He he also recently had pneumonia per his report. He states he does wear oxygen at home. He states initially he was only wearing it at night, however since his last discharge a week ago he has been wearing it constantly. He was initially only using 4 L/min however has been increasing it to 6 L/min. He states his cough is productive of a cream-colored sputum, he denies hemoptysis. He states with any movement or ambulation he is markedly more short of breath and fatigued. He denies any coming chest pain, abdominal pain, fevers or chills. No worsening leg swelling. Patient states following his last discharge his diuretic was also increased and he states he is urinating frequently. He states he follows with Dr. Valencia of nephrology and Dr. Grande of pulmonology. He states he is not currently using any inhalers at home. PAST MEDICAL HISTORY:See Below PAST SURGICAL HISTORY:See Below FAMILY HISTORY:See Below SOCIAL HISTORY:See Below HOME MEDICATIONS:See Below ALLERGIES:See Below VITALS:See Below PHYSICAL EXAMINATION: GENERAL: alert, well appearing, well nourished, no distress, non-toxic EYE EXAM: normal conjunctiva, PERRL and EOM's grossly intact OROPHARYNX: no exudate, no erythema, lips, buccal mucosa, and tongue normal and mucous membranes are moist NECK: supple, no nuchal rigidity, no adenopathy, non-tender LUNGS: Clear to auscultation. Normal chest wall mechanics, no w/r, bibasilar Rales HEART: no murmurs, S1 normal and S2 normal ABDOMEN: abdomen soft, non-tender, normo-active bowel sounds, no masses, no rebound or guarding. BACK: Back is symmetrical on inspection and there is no deformity, no midline tenderness, no CVA tenderness. SKIN: no rashes, petechiae, orbruising UPPER EXTREMITIES: upper extremities are grossly normal. FROM, nml pulses b/l. LOWER EXTREMITIES: No pitting edema. FROM, nml pulses b/l. Slight edema noted to the right lower extremity which patient states is chronic and secondary to several prior surgeries. 2 well-healed incisions are noted to the medial aspect of the distal right lower extremity. NEURO EXAM: Normal sensorium, cranial nerves II-XII grossly intact, normal speech, no facial droop,nogross weakness of arms, no gross weakness of legs. Gross sensation intact. No ataxia. Vital Signs: reviewed and remarkable Differential Diagnosis: pneumonia, bronchitis, COPD/Asthma exacerbation, pneumothorax, pulmonary embolism, congestive heart failure, acute coronary syndrome, as well as others were considered MEDICAL DECISION MAKING: This is a 78 yo male with multiple chronic medical problems and need for chronic home oxygen who presents with increased SOB since discharge from hospital last week. He has been increasing his home oxygen. No home nebs/MDI's. He has been taking his increased diuretic dose daily since dc. Denies any concern for infection. Patient initially seen in a waiting room area as he presented on a day or high volume and acuity. Labs drawn and sent, IV established, EKG and CXR performed and interpreted at bedside, and patient placed on telemetry once a regular patient room available. Patient given duoneb with minimal improvement. Given he had recently had a long taper of steroids, use of additional steroids deferred to the hospitalist. We discussed all results and concern for worsening symptoms despite recent changes at discharge. Patient verbalized understanding. Case discussed with hospitalist team for additional evaluation. Consultation(s): 1857: Discussed with Dr. Watson, [place] hospitalist team. Patient will be seen by Dr. Colunga for additional evaluation and treatment. ER Treatment Provided: See below Diagnostics Interpreted By Me: -ECG: NSR at 69, nml axis, nml intervals, no acute ST/T wave changes -Cardiac Monitoring: An order was placed for continuous cardiac monitoring. The monitor shows a rate of 66 with normal sinus rhythm. -Laboratory studies: As stated above and show below. -Imaging studies: X-ray Chest: A single view study of the chest was reviewed and was negative for cardiomegaly, focal infiltrate, effusion, or wide mediastinum. Mild pulmonary edema noted b/l. Triage Nursing Note Reviewed Prior/Outside Records Reviewed - recent DC summary from 08/21/23 reviewed Procedures: [] Critical Care: [] Past Med/Surg History Medical History Acute kidney injury Acute kidney injury Acute respiratory failure with hypoxia [id number] kidney injury Anorexia ARF (acute renal failure) B-cell lymphoma Chronic back pain Coronary artery disease COVID-19 Deep vein thrombosis Deep vein thrombosis Depression Gastroenteritis due to 2019nCoV Hearing deficit Hemodialysis patient Hyperkalemia Hypersensitivity pneumonitis Left leg DVT Liver mass Metabolic acidosis Metabolic acidosis On anticoagulant therapy Osteoarthritis Paroxysmal atrial fibrillation Peripheral neuropathy Peripheral vascular disease Pneumonia Pneumonia Pneumonia due to COVID-19 virus Scrotal swelling Secondary hyperparathyroidism of renal origin Severe protein-calorie malnutrition Situational depression Sleep apnea UTI (urinary tract infection) Vitamin D deficiency Weight loss Surgical History H/O vascular surgery History of cardiac cath History of colonoscopy History of esophagogastroduodenoscopy (EGD) History of heart artery stent History of lumbar discectomy History of umbilical hernia repair S/P femoral-femoral bypass surgery Family History Mother FHx: lung cancer FHx: uterine cancer Other Allergy Cancer Diabetes Heart disease Lung cancer Lung disease Denies family history of Tuberculosis Emphysema of lung Asthma Social History Smoking Status: Former smoker Tobacco Type: Cigarettes packs per day: 1; Second Hand Exposure: No; Do You Dip or Chew Tobacco: No; Hx Alcohol Use: No Hx Substance Use: No Preferred Language: Cuban Communication Ability: Effective Swine Nutritionist Required: No Beliefs That Will Affect Care: None Current Living Situation: Spouse Current Living Situation Comment: -Sandra Other Information That Helps Us Care for You: No Feels Safe at Home: Yes Assistive Devices: Glasses, Oxygen - Continuous and Walker Allergies Allergies Allergy/AdvReac Type Severity Reaction Status Date / Time No Known Allergies Allergy Verified 08/19/23 22:34 Home Meds Home Medications Medication Instructions Recorded Confirmed atorvastatin 80 mg tablet (Lipitor) 80 mg PO HS #0 tabs 12/21/14 08/27/23 finasteride 5 mg tablet 5 mg PO QAM 12/04/18 08/27/23 clopidogrel 75 mg tablet 75 mg PO DAILY 09/15/21 08/27/23 Portable Oxygen 06/05/23 07/27/23 citalopram 20 mg tablet 30 mg PO DAILY 07/27/23 08/27/23 oxycodone 5 mg capsule 5 mg PO BID PRN Pain 07/27/23 08/27/23 Previous Rx's Medication Instructions Recorded carvedilol 25 mg tablet 25 mg PO BID #180 tabs 01/16/23 epoetin neptali 40,000 unit/mL 40,000 unit subcut .COMPLEX #1 mL 03/20/23 injection solution (Procrit) apixaban 2.5 mg tablet (Eliquis) 2.5 mg PO BID #60 tabs 08/21/23 bumetanide 1 mg tablet 1 mg PO QAM #30 tabs 08/21/23 Results & Data (ED) Vital Signs Vital Signs - 24 hr 08/27/23 17:31 08/27/23 17:31 08/27/23 17:31 Pulse Rate 67 Pulse Rate [Apical] 67 Respiratory Rate 24 Blood Pressure [Left Arm] 138/73 Blood Pressure Mean [Left Arm] 94 Pulse Oximetry 90 99 99 Oxygen Delivery Method Nasal Cannula Nasal Cannula Nasal Cannula Oxygen Flow Rate 2 4 4 Oxygen Flow Rate - Titration 4 Pulse Oximetry Post Tiitration 99 08/27/23 17:44 Pulse Rate 62 Pulse Rate [Apical] Respiratory Rate Blood Pressure [Left Arm] Blood Pressure Mean [Left Arm] Pulse Oximetry Oxygen Delivery Method Oxygen Flow Rate Oxygen Flow Rate - Titration Pulse Oximetry Post Tiitration Laboratory Data 08/28/23 04:11 08/28/23 04:11 Lab Results 08/27/23 08/27/23 08/27/23 Range/Units 16:18 17:40 19:25 WBC 8.42 (4.8-10.8) K/ul RBC 4.08 L (4.70-6.10) M/uL Hgb 12.4 L (14.0-18.0) g/dl Hct 40.6 L (42.0-52.0) % MCV 99.5 (80.0-100.0) fL MCH 30.4 (25.0-34.0) pg MCHC 30.5 L (32.0-36.0) g/dL RDW Std Deviation 61.9 H (36.4-46.3) fL RDW Coeff of Xiomara 16.7 H (11.5-14.5) % Plt Count 254 (130-400) K/uL MPV 9.5 (9.4-12.4) fL Immature Gran % (Auto) 1.1 % Neut % (Auto) 76.7 % Lymph % (Auto) 5.3 % Hoke % (Auto) 10.2 % Eos % (Auto) 6.3 % Baso % (Auto) 0.4 % Neut # (Auto) 6.46 (1.40-6.50) K/uL Lymph # (Auto) 0.45 L (1.20-3.40) K/uL Hoke # (Auto) 0.86 H (0.11-0.59) K/uL Eos # (Auto) 0.53 H (0.00-0.50) K/uL Baso # (Auto) 0.03 (0.00-0.20) K/uL Immature Gran # (Auto) 0.09 (0.01-0.20) K/uL PT 10.9 (9.0-12.0) Seconds INR 1.0 (0.9-1.1) APTT 29.2 (21.0-31.0) Seconds PTT Ratio 1.0 Sodium 141 (136-145) mmol/L Potassium 4.6 (3.5-5.1) mmol/L Chloride 103 (98-107) mmol/L Carbon Dioxide 32 (21-32) mmol/L Anion Gap 6 (3-11) BUN 53 H (6-23) mg/dl Creatinine 2.97 H (0.6-1.4) mg/dl Est Cr Clr Drug Dosing 21.2 ml/min Est GFR ( Amer) 22.3 ml/min Est GFR (Non-Af Amer) 19.2 ml/min BUN/Creatinine Ratio 17.8 (10-20) Glucose 95 (70-99(Fasting)) mg/dl Calcium 9.8 (8.6-10.3) mg/dl Total Bilirubin 0.6 (0.2-1.0) mg/dl AST 17 (13-39) U/L ALT 15 (7-52) U/L Alkaline Phosphatase 46 (34-104) U/L Troponin I High Sens 21.7 H 17.6 D (0-20) pg/ml B-Natriuretic Peptide 584 H (0-100) pg/ml Total Protein 6.7 (6.0-8.3) gm/dl Albumin 3.6 (3.4-5.0) gm/dl Globulin 3.1 (2.5-4.0) gm/dl Albumin/Globulin Ratio 1.2 (0.9-2) Urine Color Yellow Urine Appearance Clear (Clear) Urine pH 5.5 (4.5-7.5) Ur Specific [place] 1.010 (1.000-1.030) Urine Protein Trace H (Negative) Urine Glucose (UA) Negative (Negative) Urine Ketones Negative (Negative) Urine Blood Negative (Negative) Urine Nitrite Negative (Negative) Urine Bilirubin Negative (Negative) Urine Urobilinogen Negative (Negative) Ur Leukocyte Esterase 1+ H (Negative) Urine WBC (Auto) >30 H (0-5) /hpf Urine RBC (Auto) 0-4 (0-4) /hpf U Hyaline Cast (Auto) 1-5 (0-5) /lpf U Epithel Cells (Auto) 0-5 (0-5) /lpf Urine Bacteria (Auto) 2+ H (Negative) SARS-CoV-2 (PCR) (Negative) Influenza Type A (PCR) (Neg) Influenza Type B (PCR) (Neg) RSV (RT-PCR) (Neg) 08/27/23 Range/Units 19:30 WBC (4.8-10.8) K/ul RBC (4.70-6.10) M/uL Hgb (14.0-18.0) g/dl Hct (42.0-52.0) % MCV (80.0-100.0) fL MCH (25.0-34.0) pg MCHC (32.0-36.0) g/dL RDW Std Deviation (36.4-46.3) fL RDW Coeff of Xiomara (11.5-14.5) % Plt Count (130-400) K/uL MPV (9.4-12.4) fL Immature Gran % (Auto) % Neut % (Auto) % Lymph % (Auto) % Hoke % (Auto) % Eos % (Auto) % Baso % (Auto) % Neut # (Auto) (1.40-6.50) K/uL Lymph # (Auto) (1.20-3.40) K/uL Hoke # (Auto) (0.11-0.59) K/uL Eos # (Auto) (0.00-0.50) K/uL Baso # (Auto) (0.00-0.20) K/uL Immature Gran # (Auto) (0.01-0.20) K/uL PT (9.0-12.0) Seconds INR (0.9-1.1) APTT (21.0-31.0) Seconds PTT Ratio Sodium (136-145) mmol/L Potassium (3.5-5.1) mmol/L Chloride (98-107) mmol/L Carbon Dioxide (21-32) mmol/L Anion Gap (3-11) BUN (6-23) mg/dl Creatinine (0.6-1.4) mg/dl Est Cr Clr Drug Dosing ml/min Est GFR ( Amer) ml/min Est GFR (Non-Af Amer) ml/min BUN/Creatinine Ratio (10-20) Glucose (70-99(Fasting)) mg/dl Calcium (8.6-10.3) mg/dl Total Bilirubin (0.2-1.0) mg/dl AST (13-39) U/L ALT (7-52) U/L Alkaline Phosphatase (34-104) U/L Troponin I High Sens (0-20) pg/ml B-Natriuretic Peptide (0-100) pg/ml Total Protein (6.0-8.3) gm/dl Albumin (3.4-5.0) gm/dl Globulin (2.5-4.0) gm/dl Albumin/Globulin Ratio (0.9-2) Urine Color Urine Appearance (Clear) Urine pH (4.5-7.5) Ur Specific In[place] (1.000-1.030) Urine Protein (Negative) Urine Glucose (UA) (Negative) Urine Ketones (Negative) Urine Blood (Negative) Urine Nitrite (Negative) Urine Bilirubin (Negative) Urine Urobilinogen (Negative) Ur Leukocyte Esterase (Negative) Urine WBC (Auto) (0-5) /hpf Urine RBC (Auto) (0-4) /hpf U Hyaline Cast (Auto) (0-5) /lpf U Epithel Cells (Auto) (0-5) /lpf Urine Bacteria (Auto) (Negative) SARS-CoV-2 (PCR) NEGATIVE (Negative) Influenza Type A (PCR) Negative (Neg) Influenza Type B (PCR) Negative (Neg) RSV (RT-PCR) Negative (Neg) Administered Medications Albuterol (Albut/Ipratrop 3mg/0.5mg Neb 3 Ml Vial) 3 ml NEB QIDR GAURI; Protocol Stop: 09/27/23 06:59 Last Admin: 08/28/23 14:30 Dose: 3 ml Documented By: Admin: 08/28/23 11:32 Dose: 3 ml Documented By: Admin: 08/28/23 06:47 Dose: 3 ml Documented By: ANA Apixaban (Apixaban 2.5 Mg Tab) 2.5 mg PO BID [facility] Stop: 09/26/23 20:59 Last Admin: 08/28/23 08:45 Dose: 2.5 mg Documented By: Admin: 08/27/23 22:15 Dose: 2.5 mg Documented By: QGV Atorvastatin Calcium (Atorvastatin 40 Mg Tab) 80 mg PO HS [facility] Stop: 09/26/23 20:59 Last Admin: 08/27/23 22:15 Dose: 80 mg Documented By: QGV Budesonide (Budesonide 0.5 Mg/2 Ml Vial (Pulmicort)) 0.5 mg NEB BIDR [facility] Stop: 09/27/23 06:59 Last Admin: 08/28/23 06:47 Dose: 0.5 mg Documented By: KMChar Carvedilol (Carvedilol 25 Mg Tab) 25 mg PO BID [facility] Stop: 09/26/23 20:59 Last Admin: 08/28/23 08:43 Dose: Not Given Documented By: Admin: 08/27/23 22:14 Dose: 25 mg Documented By: QGV Citalopram Hydrobromide (Citalopram 20 Mg Tab) 30 mg PO DAILY [facility] Stop: 09/27/23 08:59 Last Admin: 08/28/23 08:45 Dose: 30 mg Documented By: KTS Clopidogrel Bisulfate (Clopidogrel Bisulfate 75 Mg Tab) 75 mg PO DAILY [facility] Stop: 09/27/23 08:59 Last Admin: 08/28/23 08:57 Dose: 75 mg Documented By: DANUTA Epoetin Neptali (Epoetin Neptali 40,000 Units/Ml Vial) 40,000 units SQ Q28D@0900 [facility] Stop: 09/27/23 08:59 Last Admin: 08/28/23 08:57 Dose: 40,000 units Documented By: DANUTA Finasteride (Finasteride 5 Mg Tab) 5 mg PO [facility] Stop: 09/27/23 08:59 Last Admin: 08/28/23 08:45 Dose: 5 mg Documented By: DANUTA Furosemide (Furosemide 40 Mg/4 Ml Vial) 40 mg IV [facility] Stop: 09/27/23 08:59 Last Admin: 08/28/23 08:46 Dose: 40 mg Documented By: DANUTA Cefepime HCl 1,000 mg/ Syringe 10 mls @ 5 mls/min IV Q12H [facility]; Protocol Stop: 09/07/23 06:59 Last Admin: 08/28/23 06:03 Dose: 5 mls/min Documented By: VANDANA Methylprednisolone 40 mg/ (Syringe) 0.64 mls @ 1.5 mls/min IV Q8H [facility] Stop: 09/26/23 21:59 Last Admin: 08/28/23 14:19 Dose: 1.5 mls/min Documented By: Admin: 08/28/23 06:04 Dose: 1.5 mls/min Documented By: Admin: 08/27/23 22:15 Dose: 1.5 mls/min Documented By: QGV Loratadine (Lor[facility]adine 10 Mg Tab) [facility] Stop: 09/27/23 08:59 Last Admin: 08/28/23 08:45 Dose: 10 mg Documented By: DANUTA Discontinued Medications Albuterol (Albut/Ipratrop 3mg/0.5mg Neb 3 Ml Vial) 3 ml NEB NOW STA; Protocol Stop: 08/27/23 17:22 Last Admin: 08/27/23 17:39 Dose: 3 ml Documented By: QGV Furosemide (Furosemide 40 Mg/4 Ml Vial) 40 mg IV ONE ONE Stop: 08/27/23 20:09 Last Admin: 08/27/23 20:27 Dose: 40 mg Documented By: QGV Cefepime HCl (Maxipime) 2,000 mg in 20 mls @ 5 mls/min IV NOW STA; Protocol Stop: 08/27/23 18:22 Last Admin: 08/27/23 18:58 Dose: 5 mls/min Documented By: QGV Imaging Data Radiologist's Impression: Chest X-Ray 08/27/23 14:27 SINGLE VIEW CHEST CLINICAL HISTORY: Atypical chest pain. FINDINGS: A PA chest radiograph is compared to study dated 08/21/2023. A left subclavian central venous infusion port is unchanged in position. The heart is enlarged noting atherosclerotic calcification of the thoracic aorta. There is pulmonary vascular congestion. There is bibasilar scarring/atelectasis. No airspace consolidation or large pleural effusion is identified. No pneumothorax is seen. The skeletal structures are osteopenic. The bony thorax is grossly intact. IMPRESSION: Cardiomegaly with pulmonary vascular congestion. ACT 112: Negative or not required by law. Electronically signed by: Cheo Bullard M.D. 08/27/2023 3:11 PM Discharge Plan Visit Data Chief Complaint: Shortness of Breath/Dyspnea Stated Complaint: TROUBLE BREATHING , ONGOING ED Provider: Yessica Ruiz Discharge Problem: Acute dyspnea, COPD (chronic obstructive pulmonary disease), Pulmonary edema, Chronic respiratory failure with hypoxia Patient Disposition: Admitted As Inpatient Discharge Instructions Interventions: ED Discharge Assessment Last Done: 08/27/23 20:50
[2023-08-27 17:54] LABS: Appearance Urine Clear (Clear); Bacteria Urine Automated 2+ (Negative); Bilirubin Urine Negative (Negative); Blood Urine Negative (Negative); Color Urine Yellow; Epithelial Cell Urine Auto 0-5 /lpf (0-5); Glucose Urine UA Negative (Negative); Ketones Urine Negative (Negative); Leukocyte Esterase Urine 1+ (Negative); Nitrite Urine Negative (Negative); Protein Urine Trace (Negative); RBC Urine Automated 0-4 /hpf (0-4); Urobilinogen Urine Negative (Negative); WBC Urine Automated >30 /hpf (0-5); pH Urine 5.5 (4.5-7.5)
[2023-08-27] MEDS ORDERED: CEFEPIME 2,000 MG/20 ML VIAL IV STA (18:19)
[2023-08-27] MEDS ORDERED: FUROSEMIDE 40 MG/4 ML VIAL IV ONE (20:08)
--- NOTE | 2023-08-27 20:10 | History & Physical Report ---
Date of Service August 27, 2023 Assessment & Plan (1) Acute on chronic respiratory failure with hypoxia: (2) COPD exacerbation: (3) CHF exacerbation: (4) Recurrent UTI: (5) Mild aortic stenosis: (6) HFrEF (heart failure with reduced ejection fraction): (7) Hypersensitivity pneumonitis: (8) Chronic kidney disease, stage IV (severe): (9) Restrictive lung disease: Plan Acute on chronic respiratory failure with hypoxia/COPD exacerbation/CHF exacerbation/history of hypersensitivity pneumonitis and interstitial lung disease- Most recent hospitalization from 08/19-08/21/2023 with similar symptoms Likely in part precipitated by going out in the barn and exposures there COPD exacerbation/interstitial lung disease/history of hypersensitivity pneumonitis- Placed on methylprednisolone 40 mg IV every 8 hours Duonebs every 4 hours while awake and every 2 hours when necessary. Pulmicort Respules 0.5 mg inhaled twice daily Loratadine 10 mg p.o. daily Will likely need to be discharged on inhaler such as Trelegy Ellipta and loratadine CHF exacerbation- Give furosemide 40 mg IV now and every morning Hold bumetanide orally for now Follow renal function panel and magnesium level Recurrent urinary tract infection- UA looks abnormal Follow urine culture and sensitivity Cefepime 2 g IV every 12 hours CKD stage IV- Creatinine 2.97, with range 2.79-3.57 Follow serial renal function panel and magnesium levels History of Present Illness Chief Complaint: The patient presents to the emergency department with worsening shortness of breath since discharge on 08/21, notes in particular difficulty with shortness of breath when he is out working in the barn. Primary Care Provider: Vinod Pang The patient is a 78-year-old male with a past medical history including HFrEF, COPD, recent enterovirus infection, recurrent UTI, chronic respiratory failure with acute exacerbations, restrictive lung disease, history of hypersensitivity pneumonitis, multiple pulmonary nodules, GERD and CKD stage IV. He presents to the emergency department with similar symptoms that prompted admission from 08/19-08/21/2023. He had been improving for a few days, however, notes worsening shortness of breath particularly when working in the barn, and asks if he should wear a mask while he is out there. He does also report upon kena donahue, that when he started having difficulty with breathing, he needs to urinate more frequently. Allergies Allergy/AdvReac Type Severity Reaction Status Date / Time No Known Allergies Allergy Verified 08/19/23 22:34 Home Medications Medication Instructions Recorded Confirmed Type atorvastatin 80 mg tablet (Lipitor) 80 mg PO HS #0 tabs 12/21/14 08/27/23 History finasteride 5 mg tablet 5 mg PO QAM 12/04/18 08/27/23 History clopidogrel 75 mg tablet 75 mg PO DAILY 09/15/21 08/27/23 History carvedilol 25 mg tablet 25 mg PO BID #180 tabs 01/16/23 08/27/23 Rx epoetin neptali 40,000 unit/mL 40,000 unit subcut .COMPLEX #1 mL 03/20/23 08/27/23 Rx injection solution (Procrit) Portable Oxygen 06/05/23 07/27/23 History citalopram 20 mg tablet 30 mg PO DAILY 07/27/23 08/27/23 History oxycodone 5 mg capsule 5 mg PO BID PRN Pain 07/27/23 08/27/23 History apixaban 2.5 mg tablet (Eliquis) 2.5 mg PO BID #60 tabs 08/21/23 08/27/23 Rx bumetanide 1 mg tablet 1 mg PO QAM #30 tabs 08/21/23 08/27/23 Rx Past Med/Surg History Medical History Acute kidney injury Acute kidney injury Acute respiratory failure with hypoxia [id number] kidney injury Anorexia ARF (acute renal failure) B-cell lymphoma Chronic back pain Coronary artery disease COVID-19 Deep vein thrombosis Deep vein thrombosis Depression Gastroenteritis due to 2019nCoV Hearing deficit Hemodialysis patient Hyperkalemia Hypersensitivity pneumonitis Left leg DVT Liver mass Metabolic acidosis Metabolic acidosis On anticoagulant therapy Osteoarthritis Paroxysmal atrial fibrillation Peripheral neuropathy Peripheral vascular disease Pneumonia Pneumonia Pneumonia due to COVID-19 virus Scrotal swelling Secondary hyperparathyroidism of renal origin Severe protein-calorie malnutrition Situational depression Sleep apnea UTI (urinary tract infection) Vitamin D deficiency Weight loss Surgical History H/O vascular surgery History of cardiac cath History of colonoscopy History of esophagogastroduodenoscopy (EGD) History of heart artery stent History of lumbar discectomy History of umbilical hernia repair S/P femoral-femoral bypass surgery Family History Mother FHx: lung cancer FHx: uterine cancer Other Allergy Cancer Diabetes Heart disease Lung cancer Lung disease Denies family history of Tuberculosis Emphysema of lung Asthma Social History Smoking Status: Never smoker Tobacco Type: Cigarettes packs per day: 1; Second Hand Exposure: No; Do You Dip or Chew Tobacco: No; Hx Alcohol Use: Yes Alcohol type: beer Hx Substance Use: No Preferred Language: Belarusian Communication Ability: Effective Order Picker/Assembler Required: No Beliefs That Will Affect Care: None Current Living Situation: Spouse Current Living Situation Comment: Andrew Feels Safe at Home: Yes Assistive Devices: Cane and Oxygen - Continuous Review of Systems Review of Systems: The patient denies chest pain, palpitations, lower extremity swelling, sore throat, fevers, chills, sweats, weight change, fatigue, nausea, vomiting, diarrhea , constipation, abdominal pain, pelvic pain, blood in urine or stool, dysuria, lightheadedness, dizziness, headache, memory loss, loss of consciousness, rash, abnormal bruising or bleeding, imbalance, focal or generalized weakness, numbness or tingling in arms or legs, generalized arthralgias or myalgias, back or neck pain, or night sweats. The review of systems is otherwise negative other than for that already noted above, and at least 10 systems have been reviewed. Physical Exam Physical Exam: The patient is awake, alert and oriented 3, well developed and well nourished, normocephalic and atraumatic, lying in bed and in no acute distress. HEENT--PERRL, EOMI, mucous membranes and oropharynx normal. Neck--supple. No JVD. No bruits. Thyroid normal, trachea midline, no adenopathy. Heart--normal S1 and S2. No murmurs, rubs or gallops. Lungs--overall decreased breath sounds throughout. Few crackles at the bases. No respiratory distress, no accessory muscle use. Abdomen--normal bowel sounds and soft. Nontender. Nondistended. Extremities--no cyanosis or clubbing. No edema. Dermatologic--normal skin turgor, normal color, no abnormal lymph nodes, no rash. Neurologic--cranial nerves II through XII grossly intact. Rheumatologic--normal range of motion. Psychiatric--normal affect. Results & Data Results & Data Vital Signs (Past 12 Hours) Vital Signs Temp Pulse Pulse Resp BP BP Pulse Ox 08/27/23 17:44 62 08/27/23 17:31 67 24 138/73 99 08/27/23 17:31 67 99 08/27/23 17:31 90 08/27/23 16:20 70 18 117/63 94 08/27/23 14:23 36.5 C 68 20 122/77 92 O2 Del Method O2 Flow Rate 08/27/23 17:44 08/27/23 17:31 Nasal Cannula 4 08/27/23 17:31 Nasal Cannula 4 08/27/23 17:31 Nasal Cannula 2 08/27/23 16:20 Nasal Cannula 6 08/27/23 14:23 Nasal Cannula 6 Laboratory Results Laboratory Results WBC 8.42 K/ul (4.8-10.8) 08/27/23 16:18 RBC 4.08 M/uL (4.70-6.10) L 08/27/23 16:18 Hgb 12.4 g/dl (14.0-18.0) L 08/27/23 16:18 Hct 40.6 % (42.0-52.0) L 08/27/23 16:18 MCV 99.5 fL (80.0-100.0) 08/27/23 16:18 MCH 30.4 pg (25.0-34.0) 08/27/23 16:18 MCHC 30.5 g/dL (32.0-36.0) L 08/27/23 16:18 RDW Std Deviation 61.9 fL (36.4-46.3) H 08/27/23 16:18 RDW Coeff of Xiomara 16.7 % (11.5-14.5) H 08/27/23 16:18 Plt Count 254 K/uL (130-400) 08/27/23 16:18 MPV 9.5 fL (9.4-12.4) 08/27/23 16:18 Immature Gran % (Auto) 1.1 % 08/27/23 16:18 Neut % (Auto) 76.7 % 08/27/23 16:18 Lymph % (Auto) 5.3 % 08/27/23 16:18 Garrard % (Auto) 10.2 % 08/27/23 16:18 Eos % (Auto) 6.3 % 08/27/23 16:18 Baso % (Auto) 0.4 % 08/27/23 16:18 Neut # (Auto) 6.46 K/uL (1.40-6.50) 08/27/23 16:18 Lymph # (Auto) 0.45 K/uL (1.20-3.40) L 08/27/23 16:18 Garrard # (Auto) 0.86 K/uL (0.11-0.59) H 08/27/23 16:18 Eos # (Auto) 0.53 K/uL (0.00-0.50) H 08/27/23 16:18 Baso # (Auto) 0.03 K/uL (0.00-0.20) 08/27/23 16:18 Immature Gran # (Auto) 0.09 K/uL (0.01-0.20) 08/27/23 16:18 PT 10.9 Seconds (9.0-12.0) 08/27/23 16:18 INR 1.0 (0.9-1.1) 08/27/23 16:18 APTT 29.2 Seconds (21.0-31.0) 08/27/23 16:18 PTT Ratio 1.0 08/27/23 16:18 Sodium 141 mmol/L (136-145) 08/27/23 16:18 Potassium 4.6 mmol/L (3.5-5.1) 08/27/23 16:18 Chloride 103 mmol/L (98-107) 08/27/23 16:18 Carbon Dioxide 32 mmol/L (21-32) 08/27/23 16:18 Anion Gap 6 (3-11) 08/27/23 16:18 BUN 53 mg/dl (6-23) H 08/27/23 16:18 Creatinine 2.97 mg/dl (0.6-1.4) H 08/27/23 16:18 Est Cr Clr Drug Dosing 21.2 ml/min 08/27/23 16:18 Est GFR ( Amer) 22.3 ml/min 08/27/23 16:18 Est GFR (Non-Af Amer) 19.2 ml/min 08/27/23 16:18 BUN/Creatinine Ratio 17.8 (10-20) 08/27/23 16:18 Glucose 95 mg/dl (70-99(Fasting)) 08/27/23 16:18 Calcium 9.8 mg/dl (8.6-10.3) 08/27/23 16:18 Total Bilirubin 0.6 mg/dl (0.2-1.0) 08/27/23 16:18 AST 17 U/L (13-39) 08/27/23 16:18 ALT 15 U/L (7-52) 08/27/23 16:18 Alkaline Phosphatase 46 U/L (34-104) 08/27/23 16:18 Troponin I High Sens 17.6 pg/ml (0-20) D 08/27/23 19:25 B-Natriuretic Peptide 584 pg/ml (0-100) H 08/27/23 16:18 Total Protein 6.7 gm/dl (6.0-8.3) 08/27/23 16:18 Albumin 3.6 gm/dl (3.4-5.0) 08/27/23 16:18 Globulin 3.1 gm/dl (2.5-4.0) 08/27/23 16:18 Albumin/Globulin Ratio 1.2 (0.9-2) 08/27/23 16:18 Urine Color Yellow 08/27/23 17:40 Urine Appearance Clear (Clear) 08/27/23 17:40 Urine pH 5.5 (4.5-7.5) 08/27/23 17:40 Ur Specific Vaughan 1.010 (1.000-1.030) 08/27/23 17:40 Urine Protein Trace (Negative) H 08/27/23 17:40 Urine Glucose (UA) Negative (Negative) 08/27/23 17:40 Urine Ketones Negative (Negative) 08/27/23 17:40 Urine Blood Negative (Negative) 08/27/23 17:40 Urine Nitrite Negative (Negative) 08/27/23 17:40 Urine Bilirubin Negative (Negative) 08/27/23 17:40 Urine Urobilinogen Negative (Negative) 08/27/23 17:40 Ur Leukocyte Esterase 1+ (Negative) H 08/27/23 17:40 Urine WBC (Auto) >30 /hpf (0-5) H 08/27/23 17:40 Urine RBC (Auto) 0-4 /hpf (0-4) 08/27/23 17:40 U Hyaline Cast (Auto) 1-5 /lpf (0-5) 08/27/23 17:40 U Epithel Cells (Auto) 0-5 /lpf (0-5) 08/27/23 17:40 Urine Bacteria (Auto) 2+ (Negative) H 08/27/23 17:40 SARS-CoV-2 (PCR) NEGATIVE (Negative) 08/27/23 19:30 Influenza Type A (PCR) Negative (Neg) 08/27/23 19:30 Influenza Type B (PCR) Negative (Neg) 08/27/23 19:30 RSV (RT-PCR) Negative (Neg) 08/27/23 19:30 Impressions Chest X-Ray 08/27/23 14:27 SINGLE VIEW CHEST CLINICAL HISTORY: Atypical chest pain. FINDINGS: A PA chest radiograph is compared to study dated 08/21/2023. A left subclavian central venous infusion port is unchanged in position. The heart is enlarged noting atherosclerotic calcification of the thoracic aorta. There is pulmonary vascular congestion. There is bibasilar scarring/atelectasis. No airspace consolidation or large pleural effusion is identified. No pneumothorax is seen. The skeletal structures are osteopenic. The bony thorax is grossly intact. IMPRESSION: Cardiomegaly with pulmonary vascular congestion. ACT 112: Negative or not required by law. Electronically signed by: Cheo Bullard M.D. 08/27/2023 3:11 PM Code Status & VTE Plan Code Status Full code VTE Prophylaxis Plan VTE Prophylaxis will be ordered: Yes PG Care Time/CCT Total # of Minutes Spent Total Time Spent with Patient: Total time spent is greater than 50% in coordination of care (as documented) at patient's floor/unit and/or counseling patient: Coding Level of Care Code 30820 INT INP/OBS CARE 3/75MIN Diagnoses Acute on chronic respiratory failure with hypoxia J96.21 COPD exacerbation J44.1 CHF exacerbation I50.9 Recurrent UTI N39.0 Mild aortic stenosis I35.0 HFrEF (heart failure with reduced ejection fraction) I50.20 Hypersensitivity pneumonitis J67.9 Chronic kidney disease, stage IV (severe) N18.4 Restrictive lung disease J98.4
[2023-08-27 20:36] LABS: Influenza A virus by PCR Negative (Neg); Influenza B virus by PCR Negative (Neg); RSV by PCR Negative (Neg); SARS CoV2 RNA(COVID-19) Ceph NEGATIVE (Negative)
[2023-08-27] MEDS ORDERED: ACETAMINOPHEN 325 MG TAB PO PRN (20:49)
[2023-08-27] MEDS ORDERED: oxyCODONE HCL IR 5 MG TAB (IMMEDIATE RELEASE) PO PRN (20:49)
[2023-08-27] MEDS ORDERED: ONDANSETRON INJ 2 MG/ML 2 ML VIAL IV PRN (20:49)
[2023-08-27] MEDS: carvediloL 25 MG TAB PO SCH (22:14)
[2023-08-27] MEDS: methylPREDNISolone 40 MG in SYRINGE 0 ML IV SCH (22:15)
[2023-08-27] MEDS: ATORVASTATIN 40 MG TAB PO SCH (22:15)
[2023-08-27] MEDS: APIXABAN 2.5 MG TAB PO SCH (22:15)
[2023-08-28 05:12] LABS: Hematocrit (blood only) 37.6 % (42.0-52.0); Hemoglobin 12.3 g/dl (14.0-18.0); Mean Corpuscular Hemoglobin 32.1 pg (25.0-34.0); Mean Corpuscular Hgb Conc 32.7 g/dL (32.0-36.0); Mean Corpuscular Volume 98.2 fL (80.0-100.0); Mean Platelet Volume 9.5 fL (9.4-12.4); Platelet Count 227 K/uL (130-400); RDW Coefficient of Variation 16.8 % (11.5-14.5); RDW Standard Deviation 61.1 fL (36.4-46.3); Red Blood Count 3.83 M/uL (4.70-6.10); White Blood Count 7.85 K/ul (4.8-10.8)
[2023-08-28 05:29] LABS: Albumin Level 3.4 gm/dl (3.4-5.0); Calcium 9.4 mg/dl (8.6-10.3); Magnesium 2.1 mg/dl (1.7-2.4)
[2023-08-28 05:35] LABS: BUN Creatinine Ratio 18.8 (10-20); Creatinine Clr Calc Pharmacy 21.5 ml/min; Est GFR (African American) 22.7 ml/min; Est GFR (Non-African American) 19.6 ml/min; Phosphorus 4.4 mg/dl (2.5-4.9)
[2023-08-28] MEDS: CEFEPIME 1,000 MG in SYRINGE 0 ML IV SCH ×2 (06:03→20:25)
[2023-08-28] MEDS: methylPREDNISolone 40 MG in SYRINGE 0 ML IV SCH ×3 (06:04→20:25)
[2023-08-28 06:45] LABS: Basophils # (auto) 0.01 K/uL (0.00-0.20); Basophils % (auto) 0.1 %; Eosinophils # (auto) 0.04 K/uL (0.00-0.50); Eosinophils % (auto) 0.5 %; Immature Granulocytes # (auto) 0.04 K/uL (0.01-0.20); Immature Granulocytes % (auto) 0.5 %; Lymphocytes # (auto) 0.46 K/uL (1.20-3.40); Lymphocytes % (auto) 5.9 %; Monocytes # (auto) 0.16 K/uL (0.11-0.59); Neutrophils # (auto) 7.14 K/uL (1.40-6.50); Polychromasia 1+
[2023-08-28] MEDS: BUDESONIDE 0.5 MG/2 ML VIAL (PULMICORT) NEB SCH ×2 (06:47→20:09)
[2023-08-28] MEDS: ALBUT/IPRATROP 3MG/0.5MG NEB 3 ML VIAL NEB SCH ×4 (06:47→20:09)
[2023-08-28] MEDS: carvediloL 25 MG TAB PO SCH ×2 (08:43→20:25)
[2023-08-28] MEDS: LORATADINE 10 MG TAB PO SCH (08:45)
[2023-08-28] MEDS: FINASTERIDE 5 MG TAB PO SCH (08:45)
[2023-08-28] MEDS: CITALOPRAM 20 MG TAB PO SCH (08:45)
[2023-08-28] MEDS: APIXABAN 2.5 MG TAB PO SCH ×2 (08:45→20:25)
[2023-08-28] MEDS: FUROSEMIDE 40 MG/4 ML VIAL IV SCH (08:46)
[2023-08-28] MEDS: CLOPIDOGREL BISULFATE 75 MG TAB PO SCH (08:57)
[2023-08-28] MEDS ORDERED: EPOETIN ALFA 40,000 UNITS/ML VIAL SQ SCH (09:00)
[2023-08-28] MEDS: ATORVASTATIN 40 MG TAB PO SCH (20:25)
--- NOTE | 2023-08-28 22:20 | Hospitalist Progress Note ---
Date of Service August 28, 2023 Assessment & Plan (1) Acute on chronic respiratory failure with hypoxia: (2) COPD exacerbation: (3) CHF exacerbation: (4) Recurrent UTI: (5) Mild aortic stenosis: (6) HFrEF (heart failure with reduced ejection fraction): (7) Hypersensitivity pneumonitis: (8) Chronic kidney disease, stage IV (severe): (9) Restrictive lung disease: Plan Acute on chronic respiratory failure with hypoxia/COPD exacerbation/CHF exacerbation/history of hypersensitivity pneumonitis and interstitial lung disease- Most recent hospitalization from 08/19-08/21/2023 with similar symptoms Likely in part precipitated by going out in the barn and exposures there COPD exacerbation/interstitial lung disease/history of hypersensitivity pneumonitis- Placed on methylprednisolone 40 mg IV every 8 hours Duonebs every 4 hours while awake and every 2 hours when necessary. Pulmicort Respules 0.5 mg inhaled twice daily Loratadine 10 mg p.o. daily Will likely need to be discharged on inhaler such as Trelegy Ellipta and loratadine/ Patient not at baseline as of yet. Will continue to monitor, and diurese. will transition to daily on 08/29 will recheck chest x ray in AM. CHF exacerbation- Give furosemide 40 mg IV now and every morning Hold bumetanide orally for now Recurrent urinary tract infection- UA looks abnormal Follow urine culture and sensitivity Cefepime 2 g IV every 12 hours CKD stage IV- Creatinine 2.97, with range 2.79-3.57 Follow serial renal function panel and magnesium levels Admission and Anticipated Discharge Date Admission Date: August 27, 2023 Subjective Patient reports being closer to his baseline. Review of Systems Review of Systems: All systems reviewed & are unremarkable except as noted in HPI & below Physical Exam Physical Exam: The patient is awake, alert and oriented 3 HEENT--PERRL, EOMI, mucous membranes and oropharynx normal. Neck--supple. No JVD. No bruits. Thyroid normal, trachea midline, no adenopathy. Heart--normal S1 and S2. No murmurs, rubs or gallops. Lungs--overall decreased breath sounds throughout. Few crackles at the bases. No respiratory distress, no accessory muscle use. Abdomen--normal bowel sounds and soft. Nontender. Nondistended. Extremities--no cyanosis or clubbing. No edema. Neurologic--cranial nerves II through XII grossly intact. Rheumatologic--normal range of motion. Psychiatric--normal affect. Results & Data Results & Data Vital Signs (Past 12 Hours) Vital Signs Temp Pulse Pulse Resp BP BP Pulse Ox 08/28/23 20:49 08/28/23 20:09 69 18 97 08/28/23 19:49 08/28/23 19:00 36.5 C 74 20 141/74 H 97 08/28/23 17:54 08/28/23 14:30 60 18 96 08/28/23 11:32 64 20 95 08/28/23 11:08 36.8 C 51 L 17 132/58 L 98 O2 Del Method O2 Del Method O2 Flow Rate O2 Flow Rate 08/28/23 20:49 Nasal Cannula 4 08/28/23 20:09 Nasal Cannula 4 08/28/23 19:49 Nasal Cannula 4 08/28/23 19:00 Nasal Cannula 08/28/23 17:54 Nasal Cannula 4 08/28/23 14:30 Nasal Cannula 4 08/28/23 11:32 Nasal Cannula 4 08/28/23 11:08 PG Care Time/CCT Total # of Minutes Spent Total Time Spent with Patient: Total time spent is greater than 50% in coordination of care (as documented) at patient's floor/unit and/or counseling patient: Coding Level of Care Code 32041 SUB INP/OBS CARE 2/35MIN Diagnoses Acute on chronic respiratory failure with hypoxia J96.21 COPD exacerbation J44.1 CHF exacerbation I50.9 Recurrent UTI N39.0 Mild aortic stenosis I35.0 HFrEF (heart failure with reduced ejection fraction) I50.20 Hypersensitivity pneumonitis J67.9 Chronic kidney disease, stage IV (severe) N18.4 Restrictive lung disease J98.4
[2023-08-29] MEDS: methylPREDNISolone 40 MG in SYRINGE 0 ML IV SCH (05:42)
[2023-08-29 06:31] LABS: Hematocrit (blood only) 35.1 % (42.0-52.0); Hemoglobin 11.3 g/dl (14.0-18.0); Mean Corpuscular Hemoglobin 31.6 pg (25.0-34.0); Mean Corpuscular Hgb Conc 32.2 g/dL (32.0-36.0); Mean Platelet Volume 9.9 fL (9.4-12.4); Platelet Count 234 K/uL (130-400); RDW Coefficient of Variation 16.2 % (11.5-14.5); RDW Standard Deviation 58.6 fL (36.4-46.3); Red Blood Count 3.58 M/uL (4.70-6.10); White Blood Count 13.29 K/ul (4.8-10.8)
[2023-08-29 06:56] LABS: Albumin Level 3.3 gm/dl (3.4-5.0); BUN Creatinine Ratio 22.5 (10-20); Calcium 9.2 mg/dl (8.6-10.3); Creatinine Clr Calc Pharmacy 20.5 ml/min; Est GFR (African American) 21.5 ml/min; Est GFR (Non-African American) 18.6 ml/min; Magnesium 2.2 mg/dl (1.7-2.4); Phosphorus 4.7 mg/dl (2.5-4.9); Potassium 4.6 mmol/L (3.5-5.1)
[2023-08-29 07:05] LABS: Basophils # (auto) 0.01 K/uL (0.00-0.20); Basophils % (auto) 0.1 %; Immature Granulocytes # (auto) 0.08 K/uL (0.01-0.20); Immature Granulocytes % (auto) 0.6 %; Lymphocytes # (auto) 0.48 K/uL (1.20-3.40); Lymphocytes % (auto) 3.6 %; Monocytes # (auto) 0.51 K/uL (0.11-0.59); Monocytes % (auto) 3.8 %; Neutrophils # (auto) 12.21 K/uL (1.40-6.50); Neutrophils % (auto) 91.9 %; Ovalocytes 1+
[2023-08-29] MEDS: BUDESONIDE 0.5 MG/2 ML VIAL (PULMICORT) NEB SCH ×2 (07:11→19:38)
[2023-08-29] MEDS: ALBUT/IPRATROP 3MG/0.5MG NEB 3 ML VIAL NEB SCH ×4 (07:11→19:38)
[2023-08-29] MEDS: CEFEPIME 1,000 MG in SYRINGE 0 ML IV SCH ×2 (08:04→19:47)
[2023-08-29] MEDS ORDERED: methylPREDNISolone 40 MG in SYRINGE 0 ML IV SCH (09:00)
[2023-08-29] MEDS: FINASTERIDE 5 MG TAB PO SCH (10:24)
[2023-08-29] MEDS: FUROSEMIDE 40 MG/4 ML VIAL IV SCH (10:24)
[2023-08-29] MEDS: CITALOPRAM 20 MG TAB PO SCH (10:25)
[2023-08-29] MEDS: LORATADINE 10 MG TAB PO SCH (10:25)
[2023-08-29] MEDS: APIXABAN 2.5 MG TAB PO SCH ×2 (11:03→19:51)
[2023-08-29] MEDS: carvediloL 25 MG TAB PO SCH ×2 (11:03→19:51)
[2023-08-29] MEDS: CLOPIDOGREL BISULFATE 75 MG TAB PO SCH (11:03)
--- NOTE | 2023-08-29 11:24 | XRay Report ---
TWO VIEW CHEST CLINICAL HISTORY: Hypoxia. FINDINGS: PA and lateral chest radiographs are compared to study dated 08/27/2023 and correlated with chest CT dated 11/28/2021. A left internal jugular central venous infusion port is unchanged in posit ion. The heart is enlarged noting atherosclerotic calcification of the thoracic aorta. Emphysema and chronic interstitial thickening is some to previous. There is bibasilar scarring/atelectasis. No airs pace consolidation or pleural effusion is identified. There are irregular left upper lobe pulmonary n odule suggestive of an impacted bronchus seen by CT on 11/28/2021 is not visualized by x-ray. There is no pneumothorax. The skeletal structures are osteopenic. The bony thorax appears intact. Degenerativ e change is noted in the spine. IMPRESSION: Cardiomegaly and emphysema with no active disease in the chest. ACT 112: Negative or not required by law. Electronically signed by: Cheo Bullard M.D. 08/29/2023 11:23 AM
[2023-08-29] MEDS: ATORVASTATIN 40 MG TAB PO SCH (19:51)
--- NOTE | 2023-08-29 22:07 | Hospitalist Progress Note ---
Date of Service August 29, 2023 Assessment & Plan (1) Acute on chronic respiratory failure with hypoxia: (2) COPD exacerbation: (3) CHF exacerbation: (4) Recurrent UTI: (5) Mild aortic stenosis: (6) HFrEF (heart failure with reduced ejection fraction): (7) Hypersensitivity pneumonitis: (8) Chronic kidney disease, stage IV (severe): (9) Restrictive lung disease: Plan Acute on chronic respiratory failure with hypoxia/COPD exacerbation/CHF exacerbation/history of hypersensitivity pneumonitis and interstitial lung disease- Most recent hospitalization from 08/19-08/21/2023 with similar symptoms Likely in part precipitated by going out in the barn and exposures there COPD exacerbation/interstitial lung disease/history of hypersensitivity pneumonitis- Placed on methylprednisolone 40 mg IV every 8 hours Duonebs every 4 hours while awake and every 2 hours when necessary. Pulmicort Respules 0.5 mg inhaled twice daily Loratadine 10 mg p.o. daily Will likely need to be discharged on inhaler such as Trelegy Ellipta and loratadine/ Patient not at baseline as of yet. Will continue to monitor, and diurese. transitioned to daily diuretics on 08/29 will recheck chest x ray in AM. CHF exacerbation- Give furosemide 40 mg IV now and every morning Hold bumetanide orally for now Recurrent urinary tract infection- UA looks abnormal Follow urine culture and sensitivity Cefepime 2 g IV every 12 hours CKD stage IV- Creatinine 2.97, with range 2.79-3.57 Follow serial renal function panel and magnesium levels Admission and Anticipated Discharge Date Admission Date: August 27, 2023 Subjective Patient reports no new symptoms. Review of Systems Review of Systems: All systems reviewed & are unremarkable except as noted in HPI & below Physical Exam Physical Exam: The patient is awake, alert and oriented 3 HEENT--PERRL, EOMI, mucous membranes and oropharynx normal. Neck--supple. No JVD. No bruits. Thyroid normal, trachea midline, no adenopathy. Heart--normal S1 and S2. No murmurs, rubs or gallops. Lungs--overall decreased breath sounds throughout. Few crackles at the bases. No respiratory distress, no accessory muscle use. Abdomen--normal bowel sounds and soft. Nontender. Nondistended. Extremities--no cyanosis or clubbing. No edema. Neurologic--cranial nerves II through XII grossly intact. Rheumatologic--normal range of motion. Psychiatric--normal affect. Results & Data Results & Data Vital Signs (Past 12 Hours) Vital Signs Temp Pulse Resp BP Pulse Ox O2 Del Method O2 Flow Rate 08/29/23 19:50 Nasal Cannula 4 08/29/23 19:38 82 18 97 Nasal Cannula 4 08/29/23 19:00 37.0 C 74 20 113/66 98 Nasal Cannula 4 08/29/23 16:08 37.1 C 73 18 109/64 97 Nasal Cannula 4 08/29/23 14:51 108 H 18 91 Room Air 08/29/23 10:27 87 134/73 PG Care Time/CCT Total # of Minutes Spent Total Time Spent with Patient: Total time spent is greater than 50% in coordination of care (as documented) at patient's floor/unit and/or counseling patient: Coding Level of Care Code 84544 SUB INP/OBS CARE 2/35MIN Diagnoses Acute on chronic respiratory failure with hypoxia J96.21 COPD exacerbation J44.1 CHF exacerbation I50.9 Recurrent UTI N39.0 Mild aortic stenosis I35.0 HFrEF (heart failure with reduced ejection fraction) I50.20 Hypersensitivity pneumonitis J67.9 Chronic kidney disease, stage IV (severe) N18.4 Restrictive lung disease J98.4
[2023-08-30 05:53] LABS: Basophils # (auto) 0.01 K/uL (0.00-0.20); Basophils % (auto) 0.1 %; Eosinophils # (auto) 0.03 K/uL (0.00-0.50); Eosinophils % (auto) 0.2 %; Hematocrit (blood only) 35.6 % (42.0-52.0); Hemoglobin 11.5 g/dl (14.0-18.0); Immature Granulocytes # (auto) 0.06 K/uL (0.01-0.20); Immature Granulocytes % (auto) 0.4 %; Lymphocytes # (auto) 0.69 K/uL (1.20-3.40); Lymphocytes % (auto) 5.2 %; Mean Corpuscular Hemoglobin 31.8 pg (25.0-34.0); Mean Corpuscular Hgb Conc 32.3 g/dL (32.0-36.0); Mean Corpuscular Volume 98.3 fL (80.0-100.0); Mean Platelet Volume 9.4 fL (9.4-12.4); Monocytes # (auto) 0.84 K/uL (0.11-0.59); Monocytes % (auto) 6.3 %; Neutrophils # (auto) 11.71 K/uL (1.40-6.50); Neutrophils % (auto) 87.8 %; Platelet Count 218 K/uL (130-400); RDW Coefficient of Variation 16.3 % (11.5-14.5); RDW Standard Deviation 58.9 fL (36.4-46.3); Red Blood Count 3.62 M/uL (4.70-6.10); White Blood Count 13.34 K/ul (4.8-10.8)
--- NOTE | 2023-08-30 06:00 | Electrocardiogram Report ---
Test Reason : Blood Pressure : / mmHG Vent. Rate : 064 BPM Atrial Rate : 064 BPM P-R Int : 174 ms QRS Dur : 088 ms QT Int : 424 ms P-R-T Axes : 037 013 083 degrees QTc Int : 437 ms Normal sinus rhythm Nonspecific ST and T wave abnormality Abnormal ECG When compared with ECG of 19-AUG-2023 18:00, No significant change was found Confirmed by Jeromy Gonzalez ([id number]) on 08/30/2023 5:59:58 AM Referred By: Confirmed By:Jeromy Gonzalez
[2023-08-30] MEDS: CEFEPIME 1,000 MG in SYRINGE 0 ML IV SCH (06:03)
[2023-08-30 06:04] LABS: Albumin Level 3.2 gm/dl (3.4-5.0); BUN Creatinine Ratio 23.8 (10-20); Est GFR (African American) 17.2 ml/min; Est GFR (Non-African American) 14.8 ml/min; Magnesium 2.2 mg/dl (1.7-2.4); Phosphorus 4.1 mg/dl (2.5-4.9); Potassium 4.3 mmol/L (3.5-5.1)
--- NOTE | 2023-08-30 06:45 | Electrocardiogram Report ---
Test Reason : Blood Pressure : / mmHG Vent. Rate : 069 BPM Atrial Rate : 069 BPM P-R Int : 176 ms QRS Dur : 090 ms QT Int : 414 ms P-R-T Axes : 034 023 099 degrees QTc Int : 443 ms Normal sinus rhythm Nonspecific ST and T wave abnormality Abnormal ECG When compared with ECG of 27-AUG-2023 16:15, No significant change was found Confirmed by Jeromy Gonzalez ([id number]) on 08/30/2023 6:44:54 AM Referred By: REFERRED SELF Confirmed By:Jeromy Gonzalez
[2023-08-30] MEDS: ALBUT/IPRATROP 3MG/0.5MG NEB 3 ML VIAL NEB SCH ×4 (07:29→19:34)
[2023-08-30] MEDS: BUDESONIDE 0.5 MG/2 ML VIAL (PULMICORT) NEB SCH ×2 (07:29→19:34)
--- NOTE | 2023-08-30 07:29 | Electrocardiogram Report ---
Test Reason : Blood Pressure : / mmHG Vent. Rate : 053 BPM Atrial Rate : 053 BPM P-R Int : 182 ms QRS Dur : 110 ms QT Int : 448 ms P-R-T Axes : 030 039 059 degrees QTc Int : 420 ms Poor data quality, interpretation may be adversely affected Sinus bradycardia with sinus arrhythmia Incomplete left bundle block Borderline ECG When compared with ECG of 28-AUG-2023 13:39, No significant change Confirmed by Jeromy Gonzalez ([id number] on 08/30/2023 7:28:38 AM Referred By: REFERRED SELF Confirmed By:Jeromy Gonzalez
[2023-08-30] MEDS: methylPREDNISolone 40 MG in SYRINGE 0 ML IV SCH (08:59)
[2023-08-30] MEDS: CLOPIDOGREL BISULFATE 75 MG TAB PO SCH (08:59)
[2023-08-30] MEDS: LORATADINE 10 MG TAB PO SCH (08:59)
[2023-08-30] MEDS: FINASTERIDE 5 MG TAB PO SCH (08:59)
[2023-08-30] MEDS: APIXABAN 2.5 MG TAB PO SCH ×2 (08:59→20:17)
[2023-08-30] MEDS: CITALOPRAM 20 MG TAB PO SCH (08:59)
[2023-08-30] MEDS: carvediloL 25 MG TAB PO SCH ×2 (08:59→20:16)
[2023-08-30] MEDS: FUROSEMIDE 40 MG/4 ML VIAL IV SCH (09:04)
--- NOTE | 2023-08-30 10:14 | Hospitalist Progress Note ---
Date of Service August 30, 2023 Assessment & Plan (1) Acute on chronic respiratory failure with hypoxia: Plan: Low suspicion this is heart failure given increasing Creatinine with Lasix, he is net negative 3625ml. His BNP has increased from yesterday but is down from admission and otherwise his clinical picture fits with him being intravascularly dry. Suspect this is more secondary to his ILD/COPD - likely in part precipitated by going out in the barn and exposures there. Wean O2 to aim 88-92% (2) COPD exacerbation: Plan: He is not significantly wheezy today and reports minimal improvement since admission therefore suspect this may be more his hypersensitivityt pneumonitis / ILD rather than COPD but given lack of improvement will consult his pulmonology team Per last pulm note he should be on BrezTri but not on his home med list and he cannot enlighten me as to why - again recommend pulm consult to optimize his medication regimen as he was also offered an antifibrinolytic and I am unclear what the outcome is of this. Formoterol (added 08/30)/budesonide navjot Rob q4h Continue solu-medrol 40mg IV daily (3) Chronic kidney disease, stage IV (severe): Plan: Cr increased 2.97 -> 3.69. BUN increase may be somewhat steroid induced. Suspect from Lasix which he also had today before discontinued therefore suspect it will be worse tomorrow and diuretics while need to be held for a few days before resuming his usual bumex. (4) Hypersensitivity pneumonitis: Plan: Consult pulm as above (5) Mild aortic stenosis: (6) HFrEF (heart failure with reduced ejection fraction): Plan: Currently appears clinically dry and holding Lasix given increasing Cr (7) Paroxysmal atrial fibrillation: Plan: 08/29 - 9am - 3pm 08/30 2am - 8am Patient appears to be asymptomatic with rates 90-100, currently in NSR with rates 60-70 - suspect the duonebs are increasing these episodes but given good rate control no need for further intervention This is not new - noted paroxysmal on 02/07/2023. Started on Eliquis at that time. Rate controlled on carvedilol. Given this is a known diagnosis, relatively rate controlled and asymptomatic while in a. fib no need for ongoing telemetry at this time (8) UTI (urinary tract infection): Plan: Enterococcus faecium - switch antibiotics to Levaquin for total three further days while monitoring QTC daily for 2 days Plan VTE Prophylaxis - Eliquis Diet - regular Disposition - stable for transfer to med/surg Admission and Anticipated Discharge Date Admission Date: August 27, 2023 Subjective Patient reports minimal improvement since admission. He still feels significantly short of breath on exertion. He is unable to tell me why he is no longer on maintenance inhalers. He is unsure why he is getting a current exacerbation of his shortness of breath and has not convinced exposure to dust in his barn is the cause. He does note he occasionally wears a mask in the barn and his does all the work with hay. He reports he is eating well and having bowel movements. No chest pain. Review of Systems Review of Systems: All systems reviewed & are unremarkable except as noted in HPI & below Physical Exam Constitutional: well developed; + not well nourished and no acute distress ENMT: Mouth: + dry oral mucous membranes Respiratory: + uses accessory muscles and able to spe ak in complete sentences; no labored breathing Auscultation: + diminished lung sounds (Throughout); no crackles, no rales, no rhonchi and no wheezes Cardiovascular: Rate/Rhythm: regular rate and regular rhythm Heart Sounds: no murmur Extremities: normal capillary refill; no calf tenderness and no pedal edema Gastrointestinal (Abdomen): normal bowel sounds, soft, nontender, no hepatosplenomegaly Musculoskeletal: no cyanosis or clubbing, extremities motor strength 5/5 Skin: no rashes, warm and dry Neurologic: moves all extremities and awake; not confused Results & Data Results & Data Vital Signs (Past 12 Hours) Vital Signs Temp Pulse Pulse Resp BP Pulse Ox O2 Del Method 08/30/23 08:13 71 08/30/23 07:55 36.9 C 87 20 110/73 99 Nasal Cannula 08/30/23 07:31 66 18 100 Nasal Cannula 08/30/23 02:35 36.4 C L 64 20 110/64 98 Nasal Cannula 08/29/23 22:58 66 08/29/23 22:36 36.8 C 65 20 126/69 97 Nasal Cannula O2 Flow Rate 08/30/23 08:13 08/30/23 07:55 3 08/30/23 07:31 4 08/30/23 02:35 4 08/29/23 22:58 08/29/23 22:36 4 Laboratory Results Abnormal lab results 08/30/23 Range/Units 05:17 WBC 13.34 H (4.8-10.8) K/ul RBC 3.62 L (4.70-6.10) M/uL Hgb 11.5 L (14.0-18.0) g/dl Hct 35.6 L (42.0-52.0) % RDW Std Deviation 58.9 H (36.4-46.3) fL RDW Coeff of Xiomara 16.3 H (11.5-14.5) % Neut # (Auto) 11.71 H (1.40-6.50) K/uL Lymph # (Auto) 0.69 L (1.20-3.40) K/uL [place] # (Auto) 0.84 H (0.11-0.59) K/uL BUN 88 H (6-23) mg/dl Creatinine 3.69 H D (0.6-1.4) mg/dl BUN/Creatinine Ratio 23.8 H (10-20) Glucose 125 H (70-99(Fasting)) mg/dl C-Reactive Protein 3.00 H (0-0.5) mg/dl B-Natriuretic Peptide 325 H (0-100) pg/ml Albumin 3.2 L (3.4-5.0) gm/dl PG Care Time/CCT Total # of Minutes Spent Total Time Spent with Patient: Total time spent is greater than 50% in coordination of care (as documented) at patient's floor/unit and/or counseling patient: Coding Level of Care Code 14040 SUB INP/OBS CARE 3/50MIN Diagnoses Acute on chronic respiratory failure with hypoxia J96.21 COPD exacerbation J44.1 Chronic kidney disease, stage IV (severe) N18.4 Hypersensitivity pneumonitis J67.9 Mild aortic stenosis I35.0 HFrEF (heart failure with reduced ejection fraction) I50.20 Paroxysmal atrial fibrillation I48.0 UTI (urinary tract infection) N39.0
[2023-08-30] MEDS: FORMOTEROL 20 MCG/2 ML VIAL NEB SCH ×2 (10:44→19:34)
[2023-08-30] MEDS: UMECLIDINIUM BROMIDE 62.5MCG/BLISTER 7 PUFFS/INHALER INH SCH (11:56)
[2023-08-30] MEDS ORDERED: levoFLOXacin 500 MG TAB PO ONE (18:30)
[2023-08-30] MEDS: ATORVASTATIN 40 MG TAB PO SCH (20:17)
[2023-08-31] MEDS: BUDESONIDE 0.5 MG/2 ML VIAL (PULMICORT) NEB SCH ×2 (07:18→19:50)
[2023-08-31] MEDS: ALBUT/IPRATROP 3MG/0.5MG NEB 3 ML VIAL NEB SCH (07:18)
[2023-08-31] MEDS: FORMOTEROL 20 MCG/2 ML VIAL NEB SCH ×2 (07:18→19:50)
[2023-08-31 07:29] LABS: BUN Creatinine Ratio 26.8 (10-20); Calcium 9.1 mg/dl (8.6-10.3); Creatinine Clr Calc Pharmacy 15.6 ml/min; Est GFR (African American) 15.4 ml/min; Est GFR (Non-African American) 13.3 ml/min; Potassium 4.4 mmol/L (3.5-5.1)
[2023-08-31] MEDS ORDERED: SODIUM CHLORIDE 0.9% 500 ML IV SCH (08:30)
[2023-08-31] MEDS: APIXABAN 2.5 MG TAB PO SCH ×2 (09:07→20:38)
[2023-08-31] MEDS: CITALOPRAM 20 MG TAB PO SCH (09:07)
[2023-08-31] MEDS: LORATADINE 10 MG TAB PO SCH (09:07)
[2023-08-31] MEDS: CLOPIDOGREL BISULFATE 75 MG TAB PO SCH (09:07)
[2023-08-31] MEDS: FINASTERIDE 5 MG TAB PO SCH (09:07)
[2023-08-31] MEDS: carvediloL 25 MG TAB PO SCH ×2 (09:07→20:38)
[2023-08-31] MEDS: methylPREDNISolone 40 MG in SYRINGE 0 ML IV SCH (09:08)
[2023-08-31] MEDS: UMECLIDINIUM BROMIDE 62.5MCG/BLISTER 7 PUFFS/INHALER INH SCH (09:09)
--- NOTE | 2023-08-31 09:41 | Pulmonary Consultation ---
Date of Consultation August 31, 2023 Assessment & Plan (1) Acute on chronic respiratory failure with hypoxia: (2) Acute dyspnea: (3) ILD (interstitial lung disease): Plan Impression: 78-year-old male with interstitial lung disease, presumptively diagnosed as hypersensitivity pneumonitis admitted with increasing shortness of breath which is likely multifactorial. He has chronic kidney disease, heart failure, and interstitial lung disease. He has been treated with steroids and bronchodilators and his respiratory status is improved to the point that he feels like he is at his baseline. Unfortunately his kidney function has declined. Recommendations: 1. Interstitial lung disease: Unclear if this represents a flare of his ILD or not. His chest x-ray does not look significantly worse and there are multiple potential confounding issues including his volume status heart failure and kidney disease. Unclear if the patient has responded to steroids but he seems clinically better so it seems reasonable to put him on prednisone 20 mg a day with plans to decrease by 5 mg every week and have him follow-up with Dr. Grande in the outpatient setting in 2 to 3 weeks with repeat PFTs and an assessment as to whether or not additional immunosuppressive therapy is required for his ILD. If so, steroid sparing agents might be considered. 2. COPD: The patient's last PFTs demonstrated a mixed pattern. He does not appear bronchospastic currently. He appears to be responding favorably to nebulized budesonide and Perforomist which seems reasonable. In the outpatient setting he had been trialed on Breztri and Trelegy. He can go back to either 1 of these at discharge. 3. Hypoxemic respiratory failure: This appears to have resolved. The patient is no longer requiring supplemental oxygen and again his shortness of breath appears significantly better. 4. His current issues appear to center more on his heart failure and chronic kidney disease. Patient is at her back to his pulmonary baseline. Pulmonary will sign off. Recommend he follow-up with his outpatient primary health organisation manager on discharge. Feel free to contact us if we can be of additional assistance. History of Present Illness Attending Physician: Hakeem Navarro History of Present Illness Asked by hospitalist to assist in evaluation management this patient with known interstitial lung disease admitted with shortness of breath. History is obtained from review electronic medical record as well as discussion with the patient. Patient is a 78-year-old male who is followed in the outpatient setting by Dr. Grande. He has an abnormal CT scan with some interstitial lung disease and groundglass opacities with negative serological evaluation and a presumptive diagnosis favoring hypersensitivity pneumonitis. He has not been on suppressive therapies in the past. He had a last set of PFTs performed about 7 or 8 months ago which demonstrated a mixed obstructive restrictive pattern with decreased diffusion capacity. He had been maintained on inhaled bronchodilators and ICS. The patient presented to the emergency room 08/27/2023 with complaints of progressive shortness of breath. He was discharged from the hospital August 21 with a diagnosis of acute exacerbation of COPD and acute on chronic heart failure. PCR at that point time was positive for enterovirus. This hospitalization he was treated with DuoNebs, Claritin, methylprednisolone 40 mg every 8 hours and Lasix. He states that his breathing is significantly improved since presentation to the hospital. He was only able to walk for about 10 feet when he arrived to the hospital but yesterday he was able to do laps around the nursing station without the use of supplemental oxygen. He is not coughing or expectorating phlegm. He does not report wheezing. He does feel that his inhalers are beneficial. Allergies Allergy/AdvReac Type Severity Reaction Status Date / Time No Known Allergies Allergy Verified 08/19/23 22:34 Home Medications Medication Instructions Recorded Confirmed Type atorvastatin 80 mg tablet (Lipitor) 80 mg PO HS #0 tabs 12/21/14 08/27/23 History finasteride 5 mg tablet 5 mg PO QAM 12/04/18 08/27/23 History clopidogrel 75 mg tablet 75 mg PO DAILY 09/15/21 08/27/23 History carvedilol 25 mg tablet 25 mg PO BID #180 tabs 01/16/23 08/27/23 Rx epoetin neptali 40,000 unit/mL 40,000 unit subcut .COMPLEX #1 mL 03/20/23 08/27/23 Rx injection solution (Procrit) Portable Oxygen 06/05/23 07/27/23 History citalopram 20 mg tablet 30 mg PO DAILY 07/27/23 08/27/23 History oxycodone 5 mg capsule 5 mg PO BID PRN Pain 07/27/23 08/27/23 History apixaban 2.5 mg tablet (Eliquis) 2.5 mg PO BID #60 tabs 08/21/23 08/27/23 Rx bumetanide 1 mg tablet 1 mg PO QAM #30 tabs 08/21/23 08/27/23 Rx Patient History Medical History (Updated 08/30/23 @ 18:10 by Red Watson MD) UTI (urinary tract infection) Paroxysmal atrial fibrillation Chronic anticoagulation Cardiomyopathy Anemia HTN (hypertension) Acute kidney injury Metabolic acidosis Hypersensitivity pneumonitis [id number] kidney injury Vitamin D deficiency Situational depression Severe protein-calorie malnutrition Left leg DVT Anorexia Weight loss Acute respiratory failure with hypoxia Gastroenteritis due to 2019-nCoV Pneumonia due to COVID-19 virus COVID-19 Hyperkalemia Secondary hyperparathyroidism of renal origin Pneumonia 3 YRS AGO Osteoarthritis Chronic back pain Hemodialysis patient LAST DIAYLSIS FEBRUARY 11, 2019. NEPHROLOGY HAS STOPPED DIAYLSIS FOR THE TIME. 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 Scrotal swelling Coronary artery disease Liver mass Acute kidney injury Pneumonia ARF (acute renal failure) Metabolic acidosis Surgical History History of esophagogastroduodenoscopy (EGD) History of colonoscopy History of heart artery stent History of cardiac cath X1. FOLLOWS WITH DR JOYNER S/P femoral-femoral bypass surgery RIGHT LEG H/O vascular surgery REMOVAL OF DVT History of lumbar discectomy History of umbilical hernia repair Family History Mother FHx: lung cancer FHx: uterine cancer Other Allergy Cancer Diabetes Heart disease Lung cancer Lung disease Denies family history of Tuberculosis Emphysema of lung Asthma Social History Smoking Status: Former smoker Tobacco Type: Cigarettes packs per day: 1; Second Hand Exposure: No; Do You Dip or Chew Tobacco: No; Hx Alcohol Use: No Hx Substance Use: No Preferred Language: Romansh Communication Ability: Effective 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: No Beliefs That Will Affect Care: None Current Living Situation: Spouse Current Living Situation Comment: Andrew Feels Safe at Home: Yes Assistive Devices: Glasses, Oxygen - Continuous and Walker Review of Systems 2 Review of Systems: All systems reviewed & are unremarkable except as noted in Subjective Physical Exam 2 Constitutional: WD/WN, vitals as above Neck: trachea midline, no thyromegaly Respiratory: normal respiratory effort, lungs clear to auscultation Cardiovascular: RRR, no murmur, no edema Gastrointestinal (Abdomen): normal bowel sounds, soft, nontender, no hepatosplenomegaly Musculoskeletal: Extremities: extremities normal to inspection Skin: no rashes, warm and dry Neurologic: Nonfocal exam Lymphatic: no cervical lymphadenopathy Results & Data Results & Data Vital Signs (Past 12 Hours) Vital Signs Temp Pulse Pulse Resp BP Pulse Ox O2 Del Method 08/31/23 07:21 66 16 95 Room Air 08/31/23 07:08 36.4 C L 77 16 143/68 H 95 Room Air 08/31/23 01:40 Room Air 08/31/23 01:35 91 H 18 139/68 92 Room Air 08/30/23 23:00 36.7 C 68 18 117/70 98 Room Air Laboratory Results 08/30/23 05:17 08/31/23 05:57 Procalcitonin 0.2 C-reactive protein initially 5.15 now down to 3.0 BNP initially 218, yesterday up to 325 Diagnostic Findings Chest x-ray was independently reviewed and compared to prior chest x-rays. Port is in place. The patient does not appear appear to have any significant progression of consolidative changes. There may be some mild increased pulmonary vasculature markings. No overt pulmonary edema or pleural effusions identified. PG Care Time/CCT Total # of Minutes Spent Total Time Spent with Patient: Total time spent is greater than 50% in coordination of care (as documented) at patient's floor/unit and/or counseling patient: Coding Level of Care Code 40140 INT INP/OBS CARE 3/75MIN Diagnoses Acute on chronic respiratory failure with hypoxia J96.21 Acute dyspnea R06.00 ILD (interstitial lung disease) J84.9
[2023-08-31] MEDS ORDERED: ALBUT/IPRATROP 3MG/0.5MG NEB 3 ML VIAL NEB PRN (09:43)
[2023-08-31] MEDS: predniSONE 20 MG TAB PO SCH (11:00)
--- NOTE | 2023-08-31 13:10 | Electrocardiogram Report ---
Test Reason : Blood Pressure : / mmHG Vent. Rate : 066 BPM Atrial Rate : 066 BPM P-R Int : 186 ms QRS Dur : 106 ms QT Int : 422 ms P-R-T Axes : 073 057 126 degrees QTc Int : 442 ms Normal sinus rhythm Left ventricular hypertrophy with repolarization abnormality Abnormal ECG When compared with ECG of 29-AUG-2023 05:39, Incomplete left bundle block is no longer Present Confirmed by Earl Manuel ([id number]) on 08/31/2023 1:10:42 PM Referred By: REFERRED SELF Confirmed By:Earl Manuel
--- NOTE | 2023-08-31 18:47 | Hospitalist Progress Note ---
Date of Service August 31, 2023 Assessment & Plan (1) Acute on chronic respiratory failure with hypoxia: Plan: Low suspicion this is heart failure given increasing Creatinine with Lasix, he is net negative 3625ml. His BNP has increased from yesterday but is down from admission and otherwise his clinical picture fits with him being intravascularly dry. Suspect this is more secondary to his ILD/COPD - likely in part precipitated by going out in the barn and exposures there. Wean O2 to aim 88-92% (2) COPD exacerbation: Plan: He is not significantly wheezy today and reports minimal improvement since admission therefore suspect this may be more his hypersensitivityt pneumonitis / ILD rather than COPD but given lack of improvement will consult his pulmonology team Per last pulm note he should be on BrezTri but not on his home med list and he cannot enlighten me as to why - again recommend pulm consult to optimize his medication regimen as he was also offered an antifibrinolytic and I am unclear what the outcome is of this. Formoterol (added 08/30)/budesonide NEBs, florabs q4h Continue solu-medrol 40mg IV daily (3) Chronic kidney disease, stage IV (severe): Plan: Cr increased 2.97 -> 4. BUN increase may be somewhat steroid induced. WIll hold diuretics Will give 500 ml of IVF and monitor renal function. Suspect from Lasix which he also had today before discontinued therefore suspect it will be worse tomorrow and diuretics while need to be held for a few days before resuming his usual bumex. (4) Hypersensitivity pneumonitis: Plan: Consult pulm as above (5) Mild aortic stenosis: (6) HFrEF (heart failure with reduced ejection fraction): Plan: Currently appears clinically dry and holding Lasix given increasing Cr (7) Paroxysmal atrial fibrillation: Plan: 08/29 - 9am - 3pm 08/30 2am - 8am Patient appears to be asymptomatic with rates 90-100, currently in NSR with rates 60-70 - suspect the duonebs are increasing these episodes but given good rate control no need for further intervention This is not new - noted paroxysmal on 02/07/2023. Started on Eliquis at that time. Rate controlled on carvedilol. Given this is a known diagnosis, relatively rate controlled and asymptomatic while in a. fib no need for ongoing telemetry at this time (8) UTI (urinary tract infection): Plan: Enterococcus faecium - switch antibiotics to Levaquin for total three further days while monitoring QTC daily for 2 days Plan VTE Prophylaxis - Eliquis Diet - regular Disposition - discharge held due to worsening renal function. If showing improvement, can discharge. Admission and Anticipated Discharge Date Admission Date: August 27, 2023 Subjective Patient reports no new symptoms. Review of Systems Review of Systems: All systems reviewed & are unremarkable except as noted in HPI & below Physical Exam Physical Exam: The patient is awake, alert and oriented 3 HEENT--PERRL, EOMI, mucous membranes and oropharynx normal. Neck--supple. No JVD. No bruits. Thyroid normal, trachea midline, no adenopathy. Heart--normal S1 and S2. No murmurs, rubs or gallops. Lungs--overall decreased breath sounds throughout. Few crackles at the bases. No respiratory distress, no accessory muscle use. Abdomen--normal bowel sounds and soft. Nontender. Nondistended. Extremities--no cyanosis or clubbing. No edema. Neurologic--cranial nerves II through XII grossly intact. Rheumatologic--normal range of motion. Psychiatric--normal affect. Results & Data Results & Data Vital Signs (Past 12 Hours) Vital Signs Temp Pulse Pulse Resp BP Pulse Ox O2 Del Method 08/31/23 14:34 36.5 C 69 16 133/66 93 Room Air 08/31/23 07:21 66 16 95 Room Air 08/31/23 07:08 36.4 C L 77 16 143/68 H 95 Room Air PG Care Time/CCT Total # of Minutes Spent Total Time Spent with Patient: Total time spent is greater than 50% in coordination of care (as documented) at patient's floor/unit and/or counseling patient: Coding Level of Care Code 36015 SUB INP/OBS CARE 2/35MIN Diagnoses Acute on chronic respiratory failure with hypoxia J96.21 COPD exacerbation J44.1 Chronic kidney disease, stage IV (severe) N18.4 Hypersensitivity pneumonitis J67.9 Mild aortic stenosis I35.0 HFrEF (heart failure with reduced ejection fraction) I50.20 Paroxysmal atrial fibrillation I48.0 UTI (urinary tract infection) N39.0
[2023-08-31] MEDS: ATORVASTATIN 40 MG TAB PO SCH (20:38)
[2023-09-01 05:52] LABS: Hematocrit (blood only) 34.8 % (42.0-52.0); Hemoglobin 11.3 g/dl (14.0-18.0); Mean Corpuscular Hemoglobin 31.4 pg (25.0-34.0); Mean Corpuscular Hgb Conc 32.5 g/dL (32.0-36.0); Mean Corpuscular Volume 96.7 fL (80.0-100.0); Mean Platelet Volume 9.8 fL (9.4-12.4); Platelet Count 210 K/uL (130-400); RDW Coefficient of Variation 16.3 % (11.5-14.5); RDW Standard Deviation 57.6 fL (36.4-46.3); White Blood Count 9.24 K/ul (4.8-10.8)
[2023-09-01 06:04] LABS: BUN Creatinine Ratio 27.3 (10-20); Calcium 8.8 mg/dl (8.6-10.3); Creatinine Clr Calc Pharmacy 16.3 ml/min; Est GFR (African American) 16.3 ml/min; Est GFR (Non-African American) 14.1 ml/min; Potassium 4.5 mmol/L (3.5-5.1)
[2023-09-01] MEDS: BUDESONIDE 0.5 MG/2 ML VIAL (PULMICORT) NEB SCH (07:35)
[2023-09-01] MEDS: FORMOTEROL 20 MCG/2 ML VIAL NEB SCH (07:35)
--- NOTE | 2023-09-01 08:15 | Electrocardiogram Report ---
Test Reason : Blood Pressure : / mmHG Vent. Rate : 061 BPM Atrial Rate : 061 BPM P-R Int : 188 ms QRS Dur : 104 ms QT Int : 436 ms P-R-T Axes : 054 005 098 degrees QTc Int : 438 ms Normal sinus rhythm Left ventricular hypertrophy with repolarization abnormality Abnormal ECG When compared with ECG of 31-AUG-2023 06:18, No significant change Confirmed by Ramón Shelby ([id number] on 09/01/2023 8:14:51 AM Referred By: REFERRED SELF Confirmed By:Ramón Shelby
[2023-09-01] MEDS: CITALOPRAM 20 MG TAB PO SCH (08:45)
[2023-09-01] MEDS: CLOPIDOGREL BISULFATE 75 MG TAB PO SCH (08:45)
[2023-09-01] MEDS: APIXABAN 2.5 MG TAB PO SCH (08:45)
[2023-09-01] MEDS: carvediloL 25 MG TAB PO SCH (08:46)
[2023-09-01] MEDS: predniSONE 20 MG TAB PO SCH (08:46)
[2023-09-01] MEDS: LORATADINE 10 MG TAB PO SCH (08:46)
[2023-09-01] MEDS: FINASTERIDE 5 MG TAB PO SCH (08:46)
[2023-09-01] MEDS: UMECLIDINIUM BROMIDE 62.5MCG/BLISTER 7 PUFFS/INHALER INH SCH (08:46)
[2023-09-01] MEDS ORDERED: levoFLOXacin 250 MG TABLET PO SCH (11:00)
--- NOTE | 2023-09-01 13:02 | Discharge Summary ---
Date of Service September 01, 2023 Admission HPI Per Admitting Provider The patient is a 78-year-old male with a past medical history including HFrEF, COPD, recent enterovirus infection, recurrent UTI, chronic respiratory failure with acute exacerbations, restrictive lung disease, history of hypersensitivity pneumonitis, multiple pulmonary nodules, GERD and CKD stage IV. He presents to the emergency department with similar symptoms that prompted admission from 08/19-08/21/2023. He had been improving for a few days, however, notes worsening shortness of breath particularly when working in the barn, and asks if he should wear a mask while he is out there. He does also report upon questioning, that when he started having difficulty with breathing, he needs to urinate more frequently. Principal Diagnosis Interstitial lung disease / COPD exacerbation, UTI Discharge Exam Constitutional well developed; + not well nourished and no acute distress Respiratory normal respiratory effort; no respiratory distress Auscultation: + diminished lung sounds (Throughout); no crackles, no rales, no rhonchi and no wheezes Cardiovascular Rate/Rhythm: regular rate and regular rhythm Heart Sounds: no murmur Extremities: normal capillary refill; no calf tenderness and no pedal edema Gastrointestinal (Abdomen) normal bowel sounds, soft, nontender, no hepatosplenomegaly Musculoskeletal no cyanosis or clubbing, extremities motor strength 5/5 Skin no rashes, warm and dry Neurologic moves all extremities and awake; not confused Discharge Data Allergies Allergy/AdvReac Type Severity Reaction Status Date / Time No Known Allergies Allergy Verified 08/19/23 22:34 Consultations 08/27/23 19:00 ED Decision to Admit Stat 08/30/23 18:11 Consult Pulmonology Routine Hospital Course (1) Acute on chronic respiratory failure with hypoxia: Manuel De La Cruz is a 78 year old male admitted to [facility] from August 27 - 2022 due to shortness of breath. He was diagnosed with a COPD / interstitial lung disease flare treated with with steroids and inhalers. He will be discharged on a tapering dose of prednisone starting with 20mg daily for 7 days then 15mg daily for 7 days then 10mg daily for 7 days and should follow up with his outpatient cdl service technician for ongoing recommendations. He should continue on his Breztri inhaler twice a day as previously prescribed. He was started on a daily anti-histamine as suspect exacerbation due to allergy/dust exposure. Initially he was suspected to have and exacerbation of his heart failure but attempts at increased diuretics just caused dehydration / increased Cr therefore these were discontinued for last 2 days of admission with improvement in his Cr trending back to baseline. Recommend going back on your his Bumex dosing on discharge. He was also diagnosed with a possible UTI causing his fatigue although no specific symptoms of this. Urine culture grew Enterococcus faecium with negative blood cultures. He was treated with antibiotics as an inpatient and switch to Levaquin after culture results. Due to CKD he was treated with a reduced dose and has one dose remaining to take on 09/03 as prescribed below. 2 step on discharge showed he is back to not needing any oxygen at this time at rest or on exertion but he should continue using oxygen at night as previously prescribed. (2) COPD exacerbation: (3) Chronic kidney disease, stage IV (severe): (4) Hypersensitivity pneumonitis: (5) Mild aortic stenosis: (6) HFrEF (heart failure with reduced ejection fraction): (7) Paroxysmal atrial fibrillation: (8) UTI (urinary tract infection): Total Time Total Time Spent Total Time Spent (In Minutes): 40 Discharge Plan Discharge Items Patient Disposition: Home - Self-Care Reason For Visit: CHF EX, COPD EX, HYPOXIA, UTI Discharge Diagnosis: Interstitial lung disease / COPD exacerbation, UTI Activity: Resume your previous activity Non-emergency contact: Primary Care Provider and Asp Developer Call non-emergency contact if: you have any medication questions and your symptoms worsen Follow-up/Referrals: Frank Grande MD, FCCP [Physician] - (2-3 week hospital follow up) Vinod Pang [Primary Care Provider] - Diet: Heart Healthy Addtl Attending Provider Instructions: You were admitted to [facility] from August 27 - 2022 due to shortness of breath. You were diagnosed with a COPD / interstitial lung disease flare with steroids and inhalers. You will be discharged on a tapering dose of prednisone starting with 20mg daily for 7 days then 15mg daily for 7 days then 10mg daily for 7 days - please follow up within this time frame with your cdl service technician for ongoing dosing. Please continue on your Breztri inhaler twice a day as previously prescribed. Please start a daily anti-histamine as suspect exacerbation due to allergy/dust exposure. Initially you were suspected to have worse heart failure but attempts at increased diuretics just caused dehydration therefore these were discontinued for last 2 days of admission with improvement in your kidney test. Recommend going back on your usual Bumex dosing on discharge. You have one dose of Levaquin left for you antibiotics course for UTI. Please t virgie then on 09/03 (Sunday). Oxygen test on discharge showed you are not requiring oxygen at this time. Please just continue to use your oxygen at night. Kind regards, Dr Red Watson Pending Studies at Discharge: No Stand-Alone Forms: My [facility] [employer], Smoking Cessation Medications and DC Order Prescriptions: New loratadine [Wal-itin] 10 mg Tablet 10 mg PO QAM Qty: 30 0RF Breztri Aerosphere 160-9-4.8 mcg/actuation HFA aerosol inhaler 2 inh inhalation BID Qty: 10.7 0RF prednisone 5 mg tablet 5 mg PO DIRECTED Qty: 70 0RF Rx Instructions: 40mg daily for 7 days, then 30mg daily 7 days, then 20mg PO daily 7 days, then 10mg daily 7 days Continued atorvastatin [Lipitor] 80 mg Tablet 80 mg PO HS Qty: 0 Procrit 40,000 unit/mL solution 40,000 unit subcut .COMPLEX Qty: 1 0RF Rx Instructions: 40,000 units subcutaneously Monthly; clopidogrel 75 mg tablet 75 mg PO DAILY carvedilol 25 mg tablet 25 mg PO BID Qty: 180 3RF Rx Instructions: must administer with a meal/food (DME) Portable Oxygen Misc See Rx Instructions .MEDSUPPLY Rx Instructions: Oxygen 4 liters continuous via nasal cannula at bedtime with portable concentrator. ZENOBIA 99 oxycodone 5 mg capsule 5 mg PO BID PRN (Reason: Pain) finasteride 5 mg tablet 5 mg PO QAM citalopram 20 mg tablet 30 mg PO DAILY Eliquis 2.5 mg Tablet 2.5 mg PO BID Qty: 60 0RF bumetanide 1 mg Tablet 1 mg PO QAM Qty: 30 0RF Discharge Orders: Discharge Order (Routine); Ordered 09/01/23 Ordered By: Red Watson Admission Data Admit Date/Time: 08/27/23 20:09 Attending Provider: Red Watson Admit Provider: Wililam Colunga Primary Care Provider: Vinod Pang Other Providers: William Colunga; Emre Perdomo Other Interventions: Discharge Summary Assessment (RN) Last Done: 09/01/23 14:28 Coding Level of Care Code 35577 INP/OBS DISCH >30 MIN Diagnoses Acute on chronic respiratory failure with hypoxia J96.21 COPD exacerbation J44.1 Chronic kidney disease, stage IV (severe) N18.4 Hypersensitivity pneumonitis J67.9 Mild aortic stenosis I35.0 HFrEF (heart failure with reduced ejection fraction) I50.20 Paroxysmal atrial fibrillation I48.0 UTI (urinary tract infection) N39.0
--- NOTE | 2023-09-05 06:32 | Coding Query ---
CONGESTIVE HEART FAILURE To Promote full compliance with coding requirements relating to patient care, physician participation is requested in all cases of draft roller picker uncertainty. Please assist us with the following questions. A diagnosis of Congestive Heart Failure is documented in the patient's medical record. To accurately code this diagnosis and to compare patient severity, we ask that you specify the type of heart failure by placing an X within the parenthesis (x). SYSTOLIC HEART FAILURE ( ) Acute ( X ) Chronic ( ) Acute on Chronic ( ) Rheumatic ( ) Unknown DIASTOLIC HEART FAILURE ( ) Acute ( ) Chronic ( ) Acute on Chronic ( ) Rheumatic ( ) Unknown COMBINED SYSTOLIC AND DIASTOLIC HEART FAILURE ( ) Acute ( ) Chronic ( ) Acute on Chronic ( ) Rheumatic ( ) Unknown Was the CHF Present On Admission? Please check the appropriate box: ( X ) Present on Admission - chronic CHF is a chronic condition and therefore was present on admission. It was suspected on admission he had acute on chronic CHF but that was later ruled out ( ) Not Present On Admission ( ) Clinically undetermined Thank you Angel BARKER
== END 2023-09-01 14:50 | disposition home or self-care (01) | DRG 190 ==
LOC: ED 14:16 → SUATTDRO 20:09 → EDINP 20:09 → 4W 20:50 → 3W 08-31 01:31

== ENCOUNTER 2024-06-10 12:50 | Inpatient (IN) ==
[2024-06-10 13:53] LABS: Basophils # (auto) 0.01 K/uL (0.00-0.20); Basophils % (auto) 0.1 %; Hematocrit (blood only) 30.5 % (42.0-52.0); Hemoglobin 9.3 g/dl (14.0-18.0); Immature Granulocytes # (auto) 0.16 K/uL (0.01-0.20); Immature Granulocytes % (auto) 1.5 %; Lymphocytes # (auto) 0.57 K/uL (1.20-3.40); Lymphocytes % (auto) 5.3 %; Mean Corpuscular Hemoglobin 32.9 pg (25.0-34.0); Mean Corpuscular Hgb Conc 30.5 g/dL (32.0-36.0); Mean Corpuscular Volume 107.8 fL (80.0-100.0); Mean Platelet Volume 9.5 fL (9.4-12.4); Monocytes # (auto) 0.49 K/uL (0.11-0.59); Monocytes % (auto) 4.6 %; Neutrophils # (auto) 9.46 K/uL (1.40-6.50); Neutrophils % (auto) 88.5 %; Platelet Count 211 K/uL (130-400); RDW Coefficient of Variation 15.9 % (11.5-14.5); RDW Standard Deviation 63.6 fL (36.4-46.3); Red Blood Count 2.83 M/uL (4.70-6.10); White Blood Count 10.69 K/ul (4.8-10.8)
--- NOTE | 2024-06-10 13:53 | XRay Report ---
XR chest 1V not portable CLINICAL HISTORY: Chest pain, nonspecific TECHNIQUE: Single frontal radiograph of the chest was obtained. Comparison: Comparison is made to chest radiograph 11/20/2022 FINDINGS: A port catheter is seen. The cardiomediastinal silhouette is stable. The lungs are clear. No evidence of pleural effusion or pneumothorax. IMPRESSION: No acute chest disease. ACT 112: Negative or not required by law. Electronically signed by: Tomi Cronin M.D. 06/10/2024 1:51 PM
[2024-06-10 14:09] LABS: Alanine Aminotransferase 19 U/L (7-52); Alkaline Phosphatase 35 U/L (34-104); Anion Gap 8 (3-11); Aspartate Aminotransferase 15 U/L (13-39); BUN Creatinine Ratio 13.9 (10-20); Bilirubin,Total 0.4 mg/dl (0.2-1.0); Blood Urea Nitrogen 54 mg/dl (6-23); Calcium 8.5 mg/dl (8.6-10.3); Carbon Dioxide 28 mmol/L (21-32); Chloride 106 mmol/L (98-107); Est GFR (Non-African American) 13.8 ml/min; Glucose 94 mg/dl (70-99(Fasting)); Potassium 5.2 mmol/L (3.5-5.1); Sodium 142 mmol/L (136-145)
[2024-06-10 14:14] LABS: Troponin I High Sensitivity 38.3 pg/ml (0-20)
--- NOTE | 2024-06-10 14:16 | Emergency Department Note ---
Impression & Plan Dyspnea on minimal exertion, HFrEF (heart failure with reduced ejection fraction), CKD (chronic kidney disease), Chronic respiratory failure ED Provider Note NAME: MEG FINK AGE: 79 SEX: M : 1945 ARRIVES VIA: Walk-In INFORMANT: Patient ED PROVIDER(S): Guy Poon MD CHIEF COMPLAINT: Shortness of breath with minimal exertion, referred. PLAN: Disposition: Admit MEDICAL DECISION MAKING: The patient is a pleasant 79-year-old gentleman with past medical history of cardiomyopathy, stage IV CKD, atrial fibrillation on Eliquis, hypertension, hyperlipidemia, restrictive lung disease, non-Hodgkin's lymphoma who presents to the emergency department via walk-in, accompannied by family for evaluation of worsening shortness of breath with minimal exertion where he reports that a cardiac catheterization is being considered and he met with his pump tender last week to discuss this given risks to his kidney function. He reports that his pump tender wanted him to come to the hospital last week but he wanted to give it time to see if you get better. He did not. He reports a mild cough but denies any productive sputum. Denies fevers. Denies any nausea, vomiting or diarrhea. Patient reports he has increased his weight recently and was approximately 200 pounds. Of note, the patient did arrive to emergency department during time of high volume, acuity and prolonged emergency department waiting times. Critical pathways initiated from triage. On evaluation the patient is chronically ill-appearing but no distress, afebrile with vital signs stable with O2 saturation normal on home oxygen. EKG without overt acute ischemia. CXR negative for acute cardiopulmonary process per my personal preliminary review/interpretation. WBC and platelets within normal limits. H/H 9.3/3.5 decreased from April however with MCV of 107., Chemistry without metabolic acidosis. Creatinine is 3.8, at upper end of prior range of values in the setting of CKD. HS troponin 38.3, nonspecific. BNP is 1000, increased from prior though of unclear utility given the patient's stage IV CKD. Patient and family agree with referral to hospitalist service for admission given worsening dyspnea on exertion despite outpatient management. Case was discussed with Luther Santillan [facility], and Dr. Chatman, [facility] hospitalist who will evaluate the patient for admission. Diuresis/further management per admitting team. Triage Nursing notes reviewed and agree them. Prior/external medical records reviewed Vital Signs: reviewed Differential diagnosis: Reactive airway disease, pneumonia, pneumothorax, COPD, CHF, infections, cardiac ischemia, pulmonary embolism, musculoskeletal, gastrointestinal, as well as other pathologies. ER treatment provided: See below. Diagnostics interpreted by me: ECG: Sinus rhythm with occasional PVCs, 73 bpm, no overt ST ovation or depression, QTc 414, QRS 82. Cardiac Monitoring: An order for continuous cardiac monitoring was placed and demonstrated Sinus rhythm with occasional PVCs, 73 bpm, Laboratory studies: See below Imaging studies: See below Consultation(s): Luther Santillan, [facility], and Dr. Chatman, [facility] hospitalist HPI: The patient is a pleasant 79-year-old gentleman with past medical history of cardiomyopathy, stage IV CKD, atrial fibrillation on Eliquis, hypertension, hyperlipidemia, restrictive lung disease, non-Hodgkin's lymphoma who presents to the emergency department via walk-in, accompannied by family for evaluation of worsening shortness of breath with minimal exertion where he reports that a cardiac catheterization is being considered and he met with his pump tender last week to discuss this given risks to his kidney function. He reports that his pump tender wanted him to come to the hospital last week but he wanted to give it time to see if you get better. He did not. He reports a mild cough but denies any productive sputum. Denies fevers. Denies any nausea, vomiting or diarrhea. Patient reports he has increased his weight recently and was approximately 200 pounds. ROS: See above HPI for pertinent positives & negatives. A total of 10 systems reviewed and were otherwise negative. VITALS:See Below PHYSICAL EXAMINATION: GENERAL: Awake, alert, chronically ill-appearing, in no distress HENT: Normocephalic, atraumatic. Oropharynx unremarkable. EYES: Normal conjunctiva. Sclera non-icteric. NECK: Supple. No nuchal rigidity. FROM. No JVD. RESPIRATORY: Diminished at the bases and otherwise clear to auscultation. CARDIAC: Regular rate, normal rhythm. Extremities warm and well perfused. Pulses equal. ABDOMEN: Soft, non-distended. No tenderness to palpation. No rebound or guarding. No masses. MUSCULOSKELETAL: Chest examination reveals no tenderness. The back is symmetrical on inspection without obvious abnormality. There is no CVA tenderness to palpation. No joint edema. LOWER EXTREMITIES: Calves are equal size bilaterally and non-tender. 1+ BLE pitting edema. No discoloration. NEURO: Normal sensorium. No sensory or motor deficits noted. SKIN: No rash or jaundice noted. 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 Anemia UTI (urinary tract infection) Paroxysmal atrial fibrillation Pulmonary edema (Acute) COPD (chronic obstructive pulmonary disease) (Acute) Acute dyspnea (Acute) COPD exacerbation Acute on chronic respiratory failure with hypoxia CHF exacerbation Enterovirus infection (Acute) Antiplatelet or antithrombotic long-term use Recurrent UTI Hypospadias Right hydrocele Moderate mitral regurgitation Mild aortic stenosis Left ventricular systolic dysfunction Chronic respiratory failure (Acute) CKD (chronic kidney disease) (Acute) HFrEF (heart failure with reduced ejection fraction) (Acute) Complicated UTI (urinary tract infection) Acute left-sided back pain (Acute) Hematuria (Acute) Restrictive lung disease Mild tricuspid regurgitation Mild mitral regurgitation Depression Hypersensitivity pneumonitis Valvular heart disease Chronic kidney disease, stage IV (severe) Chewing tobacco nicotine dependence Ex-smoker ILD (interstitial lung disease) Allergic rhinitis with postnasal drip Abnormal chest CT COPD with emphysema COPD (chronic obstructive pulmonary disease) Chronic respiratory failure with hypoxia (Acute) Exertional dyspnea Multiple pulmonary nodules Vitamin D deficiency Hypoxemia Hypoxia (Acute) GERD (gastroesophageal reflux disease) Pulmonary nodule PAD (peripheral artery disease) Secondary hyperparathyroidism of renal origin Central venous catheter in place, permanent Hypercalcemia (Acute) Peripheral vascular disease MAEGAN (obstructive sleep apnea) Hypercholesteremia Neuropathy ESRD (end stage renal disease) Sinus bradycardia Liver mass (Acute) Medical History Chronic anticoagulation Cardiomyopathy HTN (hypertension) Metabolic acidosis Gaviy-[id number] kidney injury Situational depression Severe protein-calorie malnutrition Left leg DVT Anorexia Weight loss Acute respiratory failure with hypoxia Gastroenteritis due to 2019-nCoV Pneumonia due to COVID-19 virus COVID-19 Hyperkalemia Pneumonia 3 YRS AGO Osteoarthritis Chronic back pain Hemodialysis patient LAST DIAYLSIS FEBRUARY 11, 2019. NEPHROLOGY HAS STOPPED DIAYLSIS FOR THE TIME. On anticoagulant therapy Sleep apnea NON-COMPLIANT Hearing deficit Deep vein thrombosis ~ Peripheral vascular disease Peripheral neuropathy Deep vein thrombosis Scrotal swelling Coronary artery disease Acute kidney injury Pneumonia ARF (acute renal failure) Metabolic acidosis Surgical History History of esophagogastroduodenoscopy (EGD) History of colonoscopy History of heart artery stent History of cardiac cath X1. FOLLOWS WITH DR JOYNER S/P femoral-femoral bypass surgery RIGHT LEG H/O vascular surgery REMOVAL OF DVT History of lumbar discectomy History of umbilical hernia repair Family History Mother FHx: lung cancer FHx: uterine cancer Other Allergy Cancer Diabetes Heart disease Lung cancer Lung disease Denies family history of Tuberculosis Emphysema of lung Asthma Social History Smoking Status: Former smoker Tobacco Type: Cigarettes packs per day: 1; Second Hand Exposure: No; Do You Dip or Chew Tobacco: No; Hx Alcohol Use: Yes Alcohol type: beer Hx Substance Use: No Preferred Language: Bengali Communication Ability: Effective Bread Distributor Required: No Beliefs That Will Affect Care: None Current Living Situation: Spouse Current Living Situation Comment: Andrew Feels Safe at Home: Yes Assistive Devices: Glasses, Oxygen - Continuous and Walker Allergies Allergies Allergy/AdvReac Type Severity Reaction Status Date / Time No Known Allergies Allergy Verified 06/05/24 14:40 Home Meds Home Medications Medication Instructions Recorded Confirmed atorvastatin 80 mg tablet (Lipitor) 80 mg PO HS #0 tabs 12/21/14 06/10/24 finasteride 5 mg tablet 5 mg PO QAM 12/04/18 06/10/24 clopidogrel 75 mg tablet 75 mg PO QAM 09/15/21 06/10/24 oxycodone 5 mg capsule 5 mg PO BID PRN Pain 07/27/23 06/10/24 Portable Oxygen 12/11/23 03/06/24 prednisone 20 mg tablet 10 mg PO BID 06/05/24 06/10/24 ipratropium 0.5 mg-albuterol 3 mg 3 ml inhalation DIRECTED PRN 06/10/24 06/10/24 (2.5 mg base)/3 mL nebulization Other soln sertraline 100 mg tablet 100 mg PO DAILY 06/10/24 06/10/24 Previous Rx's Medication Instructions Recorded epoetin neptali 40,000 unit/mL 40,000 unit subcut .COMPLEX #1 mL 03/20/23 injection solution (Procrit) bumetanide 1 mg tablet 1 mg PO QAM #30 tabs 08/21/23 nebulizers (Aeroneb Go Nebulizer) #1 ea 09/19/23 apixaban 5 mg tablet (Eliquis) 5 mg PO BID #180 tabs 12/11/23 carvedilol 25 mg tablet 25 mg PO BID #180 tabs 04/21/24 Results & Data (ED) Vital Signs Vital Signs - 24 hr 06/10/24 13:11 06/10/24 14:19 06/10/24 14:21 Temperature 36.9 C Temperature Source Temporal Artery Scan Pulse Rate 77 71 Pulse Rate [Right Finger] Pulse Rhythm Regular Pulse Rhythm [Right Finger] Pulse Strength [Right Finger] Respiratory Rate 24 20 Respiratory Effort / Characteristics Spontaneous Respiratory Depth Normal Respiratory Pattern Regular Blood Pressure 136/72 Blood Pressure [Right Arm] Blood Pressure Mean 93 Blood Pressure Mean [Right Arm] Pulse Oximetry 94 88 L 100 Oxygen Delivery Method Nasal Cannula Nasal Cannula Oxygen Flow Rate 0 2 Sepsis Recent Fever Within 48 Hours No Sepsis New/Unexplained Change in Mental Status No Sepsis Action Taken by Nursing No Action Required Oxygen Flow Rate - Titration 3 Pulse Oximetry Post Tiitration 100 06/10/24 14:26 06/10/24 14:28 06/10/24 15:23 Temperature Temperature Source Pulse Rate 70 72 Pulse Rate [Right Finger] 72 Pulse Rhythm Pulse Rhythm [Right Finger] Regular Pulse Strength [Right Finger] Normal Respiratory Rate 12 14 Respiratory Effort / Characteristics Respiratory Depth Normal Respiratory Pattern Blood Pressure 147/72 H Blood Pressure [Right Arm] 155/77 H Blood Pressure Mean 97 Blood Pressure Mean [Right Arm] 103 Pulse Oximetry 98 96 Oxygen Delivery Method Nasal Cannula Room Air Oxygen Flow Rate 2 Sepsis Recent Fever Within 48 Hours Sepsis New/Unexplained Change in Mental Status Sepsis Action Taken by Nursing Oxygen Flow Rate - Titration Pulse Oximetry Post Tiitration Laboratory Data Attestation: I reviewed the patient's lab results. 06/10/24 13:23 06/10/24 17:23 Lab Results 06/10/24 06/10/24 Range/Units 13:23 14:17 WBC 10.69 (4.8-10.8) K/ul RBC 2.83 L (4.70-6.10) M/uL Hgb 9.3 L (14.0-18.0) g/dl Hct 30.5 L (42.0-52.0) % MCV 107.8 H (80.0-100.0) fL MCH 32.9 (25.0-34.0) pg MCHC 30.5 L (32.0-36.0) g/dL RDW Std Deviation 63.6 H (36.4-46.3) fL RDW Coeff of [place] 15.9 H (11.5-14.5) % Plt Count 211 (130-400) K/uL MPV 9.5 (9.4-12.4) fL Immature Gran % (Auto) 1.5 % Neut % (Auto) 88.5 % Lymph % (Auto) 5.3 % [place] % (Auto) 4.6 % Eos % (Auto) 0.0 % Baso % (Auto) 0.1 % Neut # (Auto) 9.46 H (1.40-6.50) K/uL Lymph # (Auto) 0.57 L (1.20-3.40) K/uL [place] # (Auto) 0.49 (0.11-0.59) K/uL Eos # (Auto) 0.00 (0.00-0.50) K/uL Baso # (Auto) 0.01 (0.00-0.20) K/uL Immature Gran # (Auto) 0.16 (0.01-0.20) K/uL PT 10.3 (9.0-12.0) Seconds INR 0.9 (0.9-1.1) APTT 21 (21-31) Seconds PTT Ratio 0.8 Sodium 142 (136-145) mmol/L Potassium 5.2 H (3.5-5.1) mmol/L Chloride 106 (98-107) mmol/L Carbon Dioxide 28 (21-32) mmol/L Anion Gap 8 (3-11) BUN 54 H (6-23) mg/dl Creatinine 3.88 H (0.6-1.4) mg/dl Est Cr Clr Drug Dosing Not Reportable Est GFR ( Amer) 16.0 ml/min Est GFR (Non-Af Amer) 13.8 ml/min BUN/Creatinine Ratio 13.9 (10-20) Glucose 94 (70-99(Fasting)) mg/dl Calcium 8.5 L (8.6-10.3) mg/dl Phosphorus 2.9 (2.5-4.9) mg/dl Magnesium 2.2 (1.7-2.4) mg/dl Total Bilirubin 0.4 (0.2-1.0) mg/dl AST 15 (13-39) U/L ALT 19 (7-52) U/L Alkaline Phosphatase 35 (34-104) U/L Troponin I High Sens 38.3 H (0-20) pg/ml B-Natriuretic Peptide 1014 H (0-100) pg/ml Total Protein 6.0 (6.0-8.3) gm/dl Albumin 4.0 (3.4-5.0) gm/dl Globulin 2.0 L (2.5-4.0) gm/dl Albumin/Globulin Ratio 2.0 (0.9-2) TSH 1.571 (0.300-4.500) uIu/ml Adenovirus (PCR) Not Detected (NotDetected) B. pertussis DNA (PCR) Not Detected (NotDetected) B.parapertussis DNA PCR Not Detected (NotDetected) C. pneumoniae DNA (PCR) Not Detected (NotDetected) Coronavirus OC43 (PCR) Not Detected (NotDetected) Coronavirus HKU1 (PCR) Not Detected (NotDetected) Coronavirus 229E (PCR) Not Detected (NotDetected) SARS-CoV-2 (PCR) Not Detected (NotDetected) Coronavirus NL63 (PCR) Not Detected (NotDetected) Human Metapneumovir PCR Not Detected (NotDetected) Influenza Type A (PCR) Not Detected (NotDetected) Influenza Type B (PCR) Not Detected (NotDetected) M. pneumoniae (PCR) Not Detected (NotDetected) Parainfluenza 1 (PCR) Not Detected (NotDetected) Parainfluenza 2 (PCR) Not Detected (NotDetected) Parainfluenza 3 (PCR) Not Detected (NotDetected) Parainfluenza 4 (PCR) Not Detected (NotDetected) RSV (PCR) Not Detected (NotDetected) Entero/Rhino (PCR) Not Detected (NotDetected) Administered Medications Apixaban (Apixaban 2.5 Mg Tab) 2.5 mg PO BID GAURI Stop: 07/10/24 20:59 Last Admin: 06/10/24 20:45 Dose: 2.5 mg Documented By: TMG Atorvastatin Calcium (Atorvastatin 40 Mg Tab) 80 mg PO HS GAURI Stop: 07/10/24 20:59 Last Admin: 06/10/24 20:46 Dose: 80 mg Documented By: TMG Carvedilol (Carvedilol 25 Mg Tab) 25 mg PO BID GAURI Stop: 07/10/24 20:59 Last Admin: 06/10/24 20:46 Dose: 25 mg Documented By: TMG Prednisone (Prednisone 10 Mg Tablet) 10 mg PO BID GAURI Stop: 07/10/24 20:59 Last Admin: 06/10/24 20:45 Dose: 10 mg Documented By: OTILIAG Discontinued Medications Aspirin (Aspirin Chew 324 Mg) 324 mg PO NOW STA Stop: 06/10/24 15:14 Last Admin: 06/10/24 15:44 Dose: 324 mg Documented By: KATHIE Dextrose (Dextrose 50% 50 Ml Syringe) 50 ml IV NOW STA Stop: 06/10/24 15:13 Last Admin: 06/10/24 15:39 Dose: 50 ml Documented By: KATHIE Calcium Gluconate () 1,000 mg in 60 mls @ 240 mls/hr IV NOW STA Stop: 06/10/24 15:26 Last Infusion: 06/10/24 16:40 Dose: Infused Documented By: Admin: 06/10/24 15:47 Dose: 240 mls/hr Documented By: KATHIE Insulin Human Regular 10 units (/ Syringe) 10 mls @ 3 mls/sec IV ONE STA Stop: 06/10/24 15:16 Last Admin: 06/10/24 15:41 Dose: 3 mls/sec Documented By: KATHIE Co-signed By: DALE Bumetanide 1 mg/ Syringe 4 mls @ 4 mls/min IV ONE ONE Stop: 06/10/24 16:01 Last Admin: 06/10/24 16:43 Dose: 4 mls/min Documented By: KATHIE Imaging Data Radiologist's Impression: Chest X-Ray 06/10/24 13:15 XR chest 1V not portable CLINICAL HISTORY: Chest pain, nonspecific TECHNIQUE: Single frontal radiograph of the chest was obtained. Comparison: Comparison is made to chest radiograph 11/20/2022 FINDINGS: A port catheter is seen. The cardiomediastinal silhouette is stable. The lungs are clear. No evidence of pleural effusion or pneumothorax. IMPRESSION: No acute chest disease. ACT 112: Negative or not required by law. Electronically signed by: Tomi Cronin M.D. 06/10/2024 1:51 PM Discharge Plan Visit Data Chief Complaint: Shortness of Breath/Dyspnea Stated Complaint: SOB, LEG WEAKNESS ED Provider: Guy Poon Discharge Problem: Dyspnea on minimal exertion, HFrEF (heart failure with reduced ejection fraction), CKD (chronic kidney disease), Chronic respiratory failure Patient Disposition: Admitted As Inpatient Discharge Instructions Interventions: ED Discharge Assessment Last Done: 06/10/24 18:27 Discharge Problem: CKD (chronic kidney disease) Qualifiers: Chronic kidney disease stage: unspecified stage Qualified Code(s): N18.9 - Chronic kidney disease, unspecified Chronic respiratory failure Qualifiers: Respiratory failure complication: hypoxia Qualified Code(s): J96.11 - Chronic respiratory failure with hypoxia
[2024-06-10 14:18] LABS: INR 0.9 (0.9-1.1); Partial Thromboplastin Ratio 0.8; Partial Thromboplastin Time 21 Seconds (21-31); Prothrombin Time 10.3 Seconds (9.0-12.0)
[2024-06-10 14:41] LABS: Magnesium 2.2 mg/dl (1.7-2.4); Phosphorus 2.9 mg/dl (2.5-4.9)
--- NOTE | 2024-06-10 14:56 | History & Physical Report ---
Date of Service June 10, 2024 Assessment & Plan (1) Dyspnea on minimal exertion: Plan: Admit to the PCU on telemetry and pulse oximetry Currently hemodynamically stable, stable on room air at rest but significantly desaturates with any exertion, and nontoxic-appearing Presented to the ED due to progressive dyspnea on exertion over the past month, has progressed to the point where he can only walk a few feet or do very minimal exertion without getting significantly short of breath compared to his baseline Symptoms resolved with last, no associated chest pain/discomfort Chest x-ray without acute changes, initial high-sensitivity troponin elevated at 38, BNP elevated at 1014 At this time the exact pathology not known but there is high risk for his known coronary artery disease requiring previous YUDI placement and need for recurrent heart cath in the near future Patient does also examine significantly volume overloaded today likely related to his progressive CKD Full respiratory BioFire is negative, no signs of other infection at this t jeromy, no acute EKG changes At this time we will give dose of full dose aspirin and 1 mg IV Bumex in the time of admission Will continue monitor on telemetry and pulse oximetry, continue to monitor high-sensitivity troponin every 6 hours have repeat 2-hour high-sensitivity troponin is back Will consult cardiology and nephrology for ongoing assistance of workup and possible need for cardiac cath despite his known CKD Will continue with 1 mg IV twice daily 17 Bumex at this time, monitor intake/output every shift and daily weights Continue home Eliquis for DVT prophylaxis Heart healthy/renal dialysis diet with 2 g sodium restriction and 1500 mm fluid restriction for now AM CBC, CMP, mag, PT/INR (2) Hyperkalemia: Plan: Potassium elevated at 5.2 on arrival Likely related to his worsening kidney function, patient does not appear to be on potassium supplementation or potassium sparing medications at this time No acute T wave changes on EKG Will give 10 units IV insulin with an amp of dextrose and 1 mg IV Bumex now Will follow-up with 4-hour repeat potassium level, if still increasing will start Patiromer Continue to monitor on rubber flap cutter daily renal function electrolytes (3) Chronic kidney disease, stage IV (severe): Plan: Per nephrology note from 03/06/2024, baseline creatinine is typically between 3.03.5 Creatinine elevated at 3.88 today with signs of volume overload on exam Will obtain UA with protein to creatinine ratio for further evaluation Avoid nephrotoxic agents, keeping patient on renal dialysis diet until electrolytes are stable Continuing IV Bumex for now as he appears to require significant diuresis Follow nephrology consult, monitor daily renal function electrolytes (4) Anemia: Plan: Hemoglobin noted to be 9.3 today, down from 11 as of April of this year No recent bleeding MCV now elevated at 107, MCHC down to 30.5, platelets are stable Suspect this is a combination of his worsening CKD and possible iron/B12/folic acid deficiency Will obtain anemia panel including B12 and folic acid levels now Follow daily CBC (5) Paroxysmal atrial fibrillation: Plan: Currently in rate controlled sinus rhythm Continue Eliquis and carvedilol (6) COPD (chronic obstructive pulmonary disease): Plan: Currently stable on room air at rest and without wheezing on exam Continue chronic prednisone at 10 mg twice daily for now as 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 Chatman at the time of the admission History of Present Illness Chief Complaint: SOB Primary Care Provider: Pierre S. Igor Jackson is a 79-year-old male with a past medical history significant for HFrEF, paroxysmal atrial fibrillation (on Eliquis), COPD, recurrent UTI, chronic respiratory failure with acute exacerbations, restrictive lung disease, history of hypersensitivity pneumonitis, multiple pulmonary nodules, MAEGAN (noncompliant with at bedtime CPAP), GERD and CKD stage IV who presented to the [facility] ED on 06/10/2024 with progressive shortness of breath compared to baseline. He was noted to be hypoxic at 88% on room air but was otherwise stable. Labs were significant for hemoglobin 9.3 (down from 11.2 as of 05/01/2024), creatinine of 3.88 (baseline is near 3.03.5), potassium of 5.2, initial high-sensitivity troponin of 38, BNP of 1014, and full respiratory BioFire negative. Chest x-ray was read as negative for acute findings. EKG shows sinus rhythm with occasional premature ventricular complexes but without acute ST segment or T wave changes compared to previous ECG. We are asked to evaluate the patient for admission as he may require cardiac cath in the near future. Patient was sitting in bed in no acute distress at the time of exam with his and daughter at bedside, history is obtained from all. He explains that over the past 3 to 4 weeks he has been experiencing progressive dyspnea on exertion. Symptoms have progressed to the point where he can do very little activity without becoming severely short of breath and weak. Feels like he gets weak in the bilateral lower extremities with minimal exertion. Denies any chest discomfort with these other symptoms and confirms that symptoms resolve with rest. Currently sitting and at rest he is asymptomatic. Denies cough, pleuritic chest pain, fever/chills, abdominal pain, nausea/vomiting, dysuria/hematuria, melena, diarrhea, recent trauma. States that he uses chronic O2 at home, typically uses 2 L as needed but has had increased up to 4 L over the past 2 weeks to relieve symptoms. When asked, he and his family feel as though he has been having increased swelling and weight gain not just in the bilateral lower extremities but in the abdomen and face as well. He and his confirmed that he has been compliant with his daily 1.5 mg p.o. Bumex daily and states that he follows his low-sodium diet. Confirms that he has been compliant with his home Eliquis and Plavix. We discussed that if he were to require heart cath there is a risk of progression of his CKD up into the point of requiring dialysis. He and his family expressed understanding and confirmed that he did have to go on dialysis for short time during his admission for COVID pneumonia 2019. He and his family are in agreement that if it is determined that coronary artery disease is the cause of his symptoms they would want him to undergo heart cath even if it required him to subsequently require dialysis as a understand he quickly from an [place] but could continue living if he required dialysis moving forward. Patient is a full code and want his and daughter to make medical decisions for him if he cannot make himself. Please refer to Dr. Chatman's attestation for any changes to the treatment plan Allergies Allergy/AdvReac Type Severity Reaction Status Date / Time No Known Allergies Allergy Verified 06/05/24 14:40 Home Medications Medication Instructions Recorded Confirmed Type atorvastatin 80 mg tablet (Lipitor) 80 mg PO HS #0 tabs 12/21/14 06/10/24 History finasteride 5 mg tablet 5 mg PO QAM 12/04/18 06/10/24 History clopidogrel 75 mg tablet 75 mg PO QAM 09/15/21 06/10/24 History epoetin neptali 40,000 unit/mL 40,000 unit subcut .COMPLEX #1 mL 03/20/23 06/10/24 Rx injection solution (Procrit) oxycodone 5 mg capsule 5 mg PO BID PRN Pain 07/27/23 06/10/24 History bumetanide 1 mg tablet 1 mg PO QAM #30 tabs 08/21/23 06/10/24 Rx nebulizers (Aeroneb Go Nebulizer) #1 ea 09/19/23 03/06/24 Rx Portable Oxygen 12/11/23 03/06/24 History apixaban 5 mg tablet (Eliquis) 5 mg PO BID #180 tabs 12/11/23 06/10/24 Rx carvedilol 25 mg tablet 25 mg PO BID #180 tabs 04/21/24 06/10/24 Rx prednisone 20 mg tablet 10 mg PO BID 06/05/24 06/10/24 History ipratropium 0.5 mg-albuterol 3 mg 3 ml inhalation DIRECTED PRN 06/10/24 06/10/24 History (2.5 mg base)/3 mL nebulization Other soln sertraline 100 mg tablet 100 mg PO DAILY 06/10/24 06/10/24 History Past Med/Surg History Problem List (Updated 06/10/24 @ 14:56 by Guy Poon MD) Dyspnea on minimal exertion (Acute) 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 Anemia UTI (urinary tract infection) Paroxysmal atrial fibrillation Pulmonary edema (Acute) COPD (chronic obstructive pulmonary disease) (Acute) Acute dyspnea (Acute) COPD exacerbation Acute on chronic respiratory failure with hypoxia CHF exacerbation Enterovirus infection (Acute) Antiplatelet or antithrombotic long-term use Recurrent UTI Hypospadias Right hydrocele Moderate mitral regurgitation Mild aortic stenosis Left ventricular systolic dysfunction Chronic respiratory failure (Acute) CKD (chronic kidney disease) (Acute) HFrEF (heart failure with reduced ejection fraction) (Acute) Complicated UTI (urinary tract infection) Acute left-sided back pain (Acute) Hematuria (Acute) Restrictive lung disease Mild tricuspid regurgitation Mild mitral regurgitation Depression Hypersensitivity pneumonitis Valvular heart disease Chronic kidney disease, stage IV (severe) Chewing tobacco nicotine dependence Ex-smoker ILD (interstitial lung disease) Allergic rhinitis with postnasal drip Abnormal chest CT COPD with emphysema COPD (chronic obstructive pulmonary disease) Chronic respiratory failure with hypoxia (Acute) Exertional dyspnea Multiple pulmonary nodules Vitamin D deficiency Hypoxemia Hypoxia (Acute) GERD (gastroesophageal reflux disease) Pulmonary nodule PAD (peripheral artery disease) Secondary hyperparathyroidism of renal origin Central venous catheter in place, permanent Hypercalcemia (Acute) Peripheral vascular disease MAEGAN (obstructive sleep apnea) Hypercholesteremia Neuropathy ESRD (end stage renal disease) Sinus bradycardia Liver mass (Acute) Medical History Chronic anticoagulation Cardiomyopathy HTN (hypertension) Acute kidney injury Metabolic acidosis Vgoas-aa-woxdouo kidney injury Situational depression Severe protein-calorie malnutrition Left leg DVT Anorexia Weight loss Acute respiratory failure with hypoxia Gastroenteritis due to 2019-nCoV Pneumonia due to COVID-19 virus COVID-19 Hyperkalemia Pneumonia 3 YRS AGO Osteoarthritis Chronic back pain Hemodialysis patient LAST DIAYLSIS FEBRUARY 11, 2019. NEPHROLOGY HAS STOPPED DIAYLSIS FOR THE TIME. On anticoagulant therapy Sleep apnea NON-COMPLIANT Hearing deficit Deep vein thrombosis ~1989' Peripheral vascular disease Peripheral neuropathy Deep vein thrombosis Scrotal swelling Coronary artery disease Acute kidney injury Pneumonia ARF (acute renal failure) Metabolic acidosis Surgical History History of esophagogastroduodenoscopy (EGD) History of colonoscopy History of heart artery stent History of cardiac cath X1. FOLLOWS WITH DR JOYNER S/P femoral-femoral bypass surgery RIGHT LEG H/O vascular surgery REMOVAL OF DVT History of lumbar discectomy History of umbilical hernia repair Family History Mother FHx: lung cancer FHx: uterine cancer Other Allergy Cancer Diabetes Heart disease Lung cancer Lung disease Denies family history of Tuberculosis Emphysema of lung Asthma Social History Smoking Status: Former smoker Tobacco Type: Cigarettes packs per day: 1; Second Hand Exposure: No; Do You Dip or Chew Tobacco: No; Hx Alcohol Use: No Hx Substance Use: No Preferred Language: [place]ib[place]ian Communication Ability: Effective Hand Glove Cleaner Required: No Beliefs That Will Affect Care: None Current Living Situation: Spouse Current Living Situation Comment: Andrew Feels Safe at Home: Yes Assistive Devices: Glasses, Oxygen - Continuous and Walker Physical Exam Physical Exam: Physical Exam: General: In no acute distress, stated age, chronically ill-appearing but nontoxic HEENT: Normocephalic, atraumatic, no scleral icterus, pupils around round, symmetrical, and reactive to light, moist mucus membranes, No significant JVD, trachea midline, no thyromegaly Chest/Pulm: No respiratory distress, symmetrical chest expansion, clear breath sounds throughout Cardiac: RRR, 2/6 systolic murmur noted Abdomen: Negative for ascites and bruising, normoactive bowel sounds, soft, non-tender to palpation throughout Musculoskeletal: Symmetrical and without signs of acute trauma, upper and lower extremities with full ROM, no atrophy, spasticity, or flaccidity Extremities: Radial, dorsalis pedis, and posterior tibial pulses are intact and symmetrical, 2-3+ pitting edema in the Bl LE's (right always more swollen due to previous vascular surgery) Skin: Warm, dry, no rashes , lesions, or scars noted Neuro: Alert and oriented to person, place, month, year, and president, no focal defects, no tremors noted Psych: No acute distress, calm and cooperative during the exam Results & Data Results & Data Vital Signs (Past 12 Hours) Vital Signs Temp Pulse Resp BP Pulse Ox O2 Del Method O2 Flow Rate 06/10/24 14:28 72 06/10/24 14:26 70 12 147/72 H 98 Nasal Cannula 2 06/10/24 14:21 71 20 100 Nasal Cannula 2 06/10/24 14:19 88 L Nasal Cannula 0 06/10/24 13:11 36.9 C 77 24 136/72 94 Laboratory Results Abnormal lab results 06/10/24 Range/Units 13:23 RBC 2.83 L (4.70-6.10) M/uL Hgb 9.3 L (14.0-18.0) g/dl Hct 30.5 L (42.0-52.0) % MCV 107.8 H (80.0-100.0) fL MCHC 30.5 L (32.0-36.0) g/dL RDW Std Deviation 63.6 H (36.4-46.3) fL RDW Coeff of Xiomara 15.9 H (11.5-14.5) % Neut # (Auto) 9.46 H (1.40-6.50) K/uL Lymph # (Auto) 0.57 L (1.20-3.40) K/uL Potassium 5.2 H (3.5-5.1) mmol/L BUN 54 H (6-23) mg/dl Creatinine 3.88 H (0.6-1.4) mg/dl Calcium 8.5 L (8.6-10.3) mg/dl Troponin I High Sens 38.3 H (0-20) pg/ml B-Natriuretic Peptide 1014 H (0-100) pg/ml Globulin 2.0 L (2.5-4.0) gm/dl Diagnostic Findings Chest X-Ray 06/10/24 13:15 XR chest 1V not portable CLINICAL HISTORY: Chest pain, nonspecific TECHNIQUE: Single frontal radiograph of the chest was obtained. Comparison: Comparison is made to chest radiograph 11/20/2022 FINDINGS: A port catheter is seen. The cardiomediastinal silhouette is stable. The lungs are clear. No evidence of pleural effusion or pneumothorax. IMPRESSION: No acute chest disease. ACT 112: Negative or not required by law. Electronically signed by: Tomi Cronin M.D. 06/10/2024 1:51 PM ECG Additional Comments: Sinus rhythm with premature ventricular contractions Code Status & VTE Plan Code Status Full code VTE Prophylaxis Plan VTE Prophylaxis will be ordered: Yes Supervising Physician Co-Signing Physician Notes Patient seen and examined, chart reviewed, case discussed with Luther Santillan PA-C and I agree with the assessment and plan as above except as otherwise noted Labs and images reviewed 3-4 weeks of TREVINO worse than baseline. Hx of severe COPD and ILD. Normally on 2L, O2 home requirements up to 4L. Can only walk a few feet before stopping due to weakness and dyspnea. +weight gain, +edema. No significant JVD. Lungs are grossly clear, but diminished. Over 25lbs above reported dry weight. Nephrology following. DDx includes CAD, understands risk of kidney injury w/ contrast from cath. Plan is to admit, diurese with bumex and follow progression. Cards to follow and eval for ?cath. Recent echo in April, will defer repeat on admission. EF is ~45%. Chest pain free on admission. Trop minimally elevated and trended. No EKG changes. K elevated, insulin + dextrose added. Bumex as noted. If elevated on Q4h check will add patiromer x1. Agree w/ above. PG Care Time/CCT Total # of Minutes Spent Total Time Spent with Patient: Total time spent is greater than 50% in coordination of care (as documented) at patient's floor/unit and/or counseling patient: Coding [place] [address] INT INP/OBS CARE 3/75MIN Patient Type Established History Comprehensive Exam Comprehensive Medical Decision Making High Complexity Diagnoses Dyspnea on minimal exertion R06.09 Hyperkalemia E87.5 Chronic kidney disease, stage IV (severe) N18.4 Anemia due to stage 4 chronic kidney disease N18.4; D63.1 Anemia type: due to chronic kidney disease Chronic kidney disease stage: stage 4 (severe) Paroxysmal atrial fibrillation I48.0 COPD (chronic obstructive pulmonary disease) J44.9 (4) Anemia Anemia type: due to chronic kidney disease Chronic kidney disease stage: stage 4 (severe) Qualified Code(s): N18.4 - Chronic kidney disease, stage 4 (severe); D63.1 - Anemia in chronic kidney disease
[2024-06-10 14:57] LABS: Thyroid Stimulating Hormone 1.571 uIu/ml (0.300-4.500)
[2024-06-10] MEDS ORDERED: Patient's HEIGHT &/or WEIGHT Needed STA (15:15)
[2024-06-10 15:23] LABS: Adenovirus PCR Not Detected (NotDetected); Bordetella parapertussis PCR Not Detected (NotDetected); Bordetella pertussis PCR Not Detected (NotDetected); Chlamydia pneumoniae PCR Not Detected (NotDetected); Coronavirus 229E PCR Not Detected (NotDetected); Coronavirus CoV-2 (COVID19)PCR Not Detected (NotDetected); Coronavirus HKU1 PCR Not Detected (NotDetected); Coronavirus NL63 PCR Not Detected (NotDetected); Coronavirus OC43PCR Not Detected (NotDetected); Human Metapneumovirus PCR Not Detected (NotDetected); Influenza A PCR Not Detected (NotDetected); Influenza B PCR Not Detected (NotDetected); Mycoplasma pneumoniae PCR Not Detected (NotDetected); Parainfluenza Virus 1 PCR Not Detected (NotDetected); Parainfluenza Virus 2 PCR Not Detected (NotDetected); Parainfluenza Virus 3 PCR Not Detected (NotDetected); Parainfluenza Virus 4 PCR Not Detected (NotDetected); Respiratory Syncytial VirusPCR Not Detected (NotDetected); Rhinovirus/Enterovirus PCR Not Detected (NotDetected)
[2024-06-10] MEDS: DEXTROSE 50% 50 ML SYRINGE IV STA (15:39)
[2024-06-10] MEDS: INSULIN HUMAN REGULAR PER UNIT 10 UNITS in SYRINGE 9.9 ML IV STA (15:41)
[2024-06-10] MEDS: ASPIRIN CHEW 324 MG PO STA (15:44)
[2024-06-10] MEDS: CALCIUM GLUCONATE 1,000 MG/60 ML BAG IV STA (15:47)
[2024-06-10] MEDS: BUMETANIDE 1 MG in SYRINGE 0 ML IV ONE (16:43)
--- NOTE | 2024-06-10 17:36 | Nephrology Consultation ---
Date of Consultation June 10, 2024 Assessment & Plan (1) Acute kidney injury: (2) Chronic kidney disease, stage IV (severe): (3) ILD (interstitial lung disease): (4) Anemia: (5) Dyspnea on minimal exertion: (6) Yvrgj-rs-xefknjg kidney injury: (7) Acute and chronic respiratory failure with hypoxia: (8) HTN (hypertension): Plan 79-year-old gentlemen with stage IV CKD secondary to microvascular disease and prior dialysis requiring dense KATHY, history of B-cell lymphoma treated with R- CHOP, history of smoking, COPD with emphysema and interstitial lung disease, admitted with progressive worsening of shortness of breath over last 1 month. Acute kidney injury with history of advanced CKD ? hemodynamically mediated, electrolyte acceptable. Hemoglobin <10. Progressive shortness of breath most likely multifactorial including high risk for underlying coronary artery disease and advanced interstitial lung disease. Clinically not overtly volume overloaded or have significant pulmonary vascular congestion, has mostly right lower extremity edema which has been chronic. Unlikely PE as he has been already on apixaban. -- Already received 1 dose of Bumex 1 mg IV without any significant improvement in respiratory status. Hold further diuretic at this time, continue to monitor intake and output. -- Continue serial troponin, recommend cardiology consult. -- dose medications for eGFR less than 15, rt arm nephrology precaution with AV fistula in place. Thank you for allowing me to participate in your patient's care. It was a pleasure to see Mr. De La Cruz. History of Present Illness Reason for Consultation: KATHY, stage 4 CKD, SOB History of Present Illness Mr. Manuel De La Cruz is a 79 year old Male with PMH of stage 4 CKD, HTN, COPD, ILD, chronic anemia presented with progressive shortness of breath over last 1 month. Nephrology consult was requested for of KATHY, stage IV CKD shortness of breath. EMR records were reviewed in detail during patient's visit. Manuel presented to the ER with with progressive shortness of breath for last almost 1 month. He has been having progressive shortness of breath with minimal exertion. Generally he uses 4L [place] oxygen. On admission he was noted to have KATHY, creatinine 3.9 mg/dl with baseline creatinine lately around 3-3.5 mg/dl, K 5.2. Hemoglobin was 9.6 with recent hemoglobin above 11 as an outpatient. Chest x-ray with no pulmonary vascular congestion but noted to have cardiomegaly. EKG with sinus rhythm with some PVCs, no significant ST-T changes. Troponin was mildly elevated with elevated BNP. Has been voiding normally. He was given 1 mg of IV Bumex. Stage IV/V CKD secondary to microvascular disease b/l cr has been around 3.0 to 3.5 with some variability, low grade proteinuria. Previous renal ultrasound revealed normal size kidneys with small bilateral simple cysts and stable b/l nephrolithiasis. Was on dialysis briefly in December and January 2019 after worseni ng of renal function in the setting of new diagnosis of B-cell lymphoma. Eventually kidney function improved and has been off of dialysis since. Has mature right radiocephalic AV fistula. Long-standing HTN, well controlled. h/o CAD single artery angioplasty w/stenting previously, on Plavix and aspirin therapy. Has peripheral vascular disease, underwent right lower extremity bypass surgery by Dr. Pollard at [facility] [place]. No history of diabetes, denies chronic NSAID use. He has lower extremity edema mainly in right lower extremity with previous history of multiple surgery in right lower extremity and venous and arterial insufficiency requiring angioplasty and stent. Has been on Eliquis for P A fib. h/o anemia of chronic disease, iron deficiency on oral iron, previously EGD, colonoscopy and capsule endoscopy was unremarkable except hiatus hernia, on Protonix 40 milligrams p.o. daily. On NICOLASA as an outpt. h/o diffuse large B-cell lymphoma Dx in November 2018, he completed chemotherapy with R-CHOP. Now in remission. Diagnosed with interstitial lung disease over last 2 years, has been on prednisone 20 mg daily. He denies SOB or CP at rest but with minimal movement or even talking he was getting easily short of breath. Allergies Allergy/AdvReac Type Severity Reaction Status Date / Time No Known Allergies Allergy Verified 06/05/24 14:40 Home Medications Medication Instructions Recorded Confirmed Type atorvastatin 80 mg tablet (Lipitor) 80 mg PO HS #0 tabs 12/21/14 06/10/24 History finasteride 5 mg tablet 5 mg PO QAM 12/04/18 06/10/24 History clopidogrel 75 mg tablet 75 mg PO QAM 09/15/21 06/10/24 History epoetin neptali 40,000 unit/mL 40,000 unit subcut .COMPLEX #1 mL 03/20/23 06/10/24 Rx injection solution (Procrit) oxycodone 5 mg capsule 5 mg PO BID PRN Pain 07/27/23 06/10/24 History bumetanide 1 mg tablet 1 mg PO QAM #30 tabs 08/21/23 06/10/24 Rx nebulizers (Aeroneb Go Nebulizer) #1 ea 09/19/23 03/06/24 Rx Portable Oxygen 12/11/23 03/06/24 History apixaban 5 mg tablet (Eliquis) 5 mg PO BID #180 tabs 12/11/23 06/10/24 Rx carvedilol 25 mg tablet 25 mg PO BID #180 tabs 04/21/24 06/10/24 Rx prednisone 20 mg tablet 10 mg PO BID 06/05/24 06/10/24 History ipratropium 0.5 mg-albuterol 3 mg 3 ml inhalation DIRECTED PRN 06/10/24 06/10/24 History (2.5 mg base)/3 mL nebulization Other soln sertraline 100 mg tablet 100 mg PO DAILY 06/10/24 06/10/24 History Patient History Medical History Chronic anticoagulation Cardiomyopathy HTN (hypertension) Acute kidney injury Metabolic acidosis Hppsz-xi-cmxdfci kidney injury Situational depression Severe protein-calorie malnutrition Left leg DVT Anorexia Weight loss Acute respiratory failure with hypoxia Gastroenteritis due to 2019-nCoV Pneumonia due to COVID-19 virus COVID-19 Hyperkalemia Pneumonia 3 YRS AGO Osteoarthritis Chronic back pain Hemodialysis patient LAST DIAYLSIS FEBRUARY 11, 2019. NEPHROLOGY HAS STOPPED DIAYLSIS FOR THE TIME. On anticoagulant therapy Sleep apnea NON-COMPLIANT Hearing deficit Deep vein thrombosis ~ Peripheral vascular disease Peripheral neuropathy Deep vein thrombosis Scrotal swelling Coronary artery disease Acute kidney injury Pneumonia ARF (acute renal failure) Metabolic acidosis Surgical History History of esophagogastroduodenoscopy (EGD) History of colonoscopy History of heart artery stent History of cardiac cath X1. FOLLOWS WITH DR JOYNER S/P femoral-femoral bypass surgery RIGHT LEG H/O vascular surgery REMOVAL OF DVT History of lumbar discectomy History of umbilical hernia repair Family History Mother FHx: lung cancer FHx: uterine cancer Other Allergy Cancer Diabetes Heart disease Lung cancer Lung disease Denies family history of Tuberculosis Emphysema of lung Asthma Social History Smoking Status: Former smoker Tobacco Type: Cigarettes packs per day: 1; Second Hand Exposure: No; Do You Dip or Chew Tobacco: No; Hx Alcohol Use: No Hx Substance Use: No Preferred Language: Tunisian Communication Ability: Effective Rougher Operator Required: No Beliefs That Will Affect Care: None Current Living Situation: Spouse Current Living Situation Comment: -Sandra Feels Safe at Home: Yes Assistive Devices: Glasses, Oxygen - Continuous and Walker Review of Systems Review of Systems: Detailed review of system was done and pertinent positives and negatives are mentioned above. Physical Exam Constitutional: WD/WN, vitals as above + acute distress, + ill appearing and + cushingoid Eyes: + anicteric sclerae Neck: normal visual inspection Respiratory: no cough Auscultation: lungs clear to auscultation bilaterally Cardiovascular: Rate/Rhythm: regular rate and regular rhythm Heart Sounds: normal S1 and normal S2 Extremities: + edema (Rt> L) and + AV fistula (Rt RC AVF) Gastrointestinal (Abdomen): Inspection/Auscultation: + abdomen distended and normal bowel sounds Musculoskeletal: Extremities: extremities normal to inspection Skin: no rashes, warm and dry Neurologic: no focal motor deficits Psychiatric: Orientation: alert and oriented x 3 Affect: euthymic affect Results & Data Vital Signs (Past 12 Hours) Vital Signs Temp Pulse Pulse Resp BP BP Pulse Ox 06/10/24 15:23 72 14 155/77 H 96 06/10/24 14:28 72 06/10/24 14:26 70 12 147/72 H 98 06/10/24 14:21 71 20 100 06/10/24 14:19 88 L 06/10/24 13:11 36.9 C 77 24 136/72 94 O2 Del Method O2 Flow Rate 06/10/24 15:23 Room Air 06/10/24 14:28 06/10/24 14:26 Nasal Cannula 2 06/10/24 14:21 Nasal Cannula 2 06/10/24 14:19 Nasal Cannula 0 06/10/24 13:11 PG Care Time/CCT Total # of Minutes Spent Total Time Spent with Patient: Total time spent is greater than 50% in coordination of care (as documented) at patient's floor/unit and/or counseling patient: Coding Level of Care Code 72812 INT INP/OBS CARE MIN Diagnoses Acute kidney injury N17.9 Chronic kidney disease, stage IV (severe) N18.4 ILD (interstitial lung disease) J84.9 Anemia due to stage 4 chronic kidney disease N18.4; D63.1 Anemia type: due to chronic kidney disease Chronic kidney disease stage: stage 4 (severe) Dyspnea on minimal exertion R06.09 Sgzht-qf-ooaaxms kidney injury N17.9; N18.9 Acute and chronic respiratory failure with hypoxia J96.21 Essential hypertension I10 Hypertension type: essential hypertension (4) Anemia Anemia type: due to chronic kidney disease Chronic kidney disease stage: stage 4 (severe) Qualified Code(s): N18.4 - Chronic kidney disease, stage 4 (severe); D63.1 - Anemia in chronic kidney disease (8) HTN (hypertension) Hypertension type: essential hypertension Qualified Code(s): I10 - Essential (primary) hypertension
--- NOTE | 2024-06-10 17:56 | Electrocardiogram Report ---
Test Reason : Blood Pressure : */* mmHG Vent. Rate : 73 BPM Atrial Rate : 73 BPM P-R Int : 162 ms QRS Dur : 82 ms QT Int : 376 ms P-R-T Axes : 12 2 90 degrees QTcB Int : 414 ms Sinus rhythm with occasional Premature ventricular complexes Minimal voltage criteria for LVH, may be normal variant Nonspecific ST and T wave abnormality Abnormal ECG When compared with ECG of 01-Sep-2023 05:40, Premature ventricular complexes are now Present Confirmed by Kyree Davis ([id number]) on 06/10/2024 5:55:42 PM Referred By: REFERRED SELF Confirmed By: Kyree Davis
[2024-06-10 18:16] LABS: Appearance Urine Clear (Clear); Bacteria Urine Automated 3+ (None Seen); Bilirubin Urine Negative (Negative); Blood Urine Negative (Negative); Cast Urine Automated 0-2 /lpf (0-2); Color Urine Yellow; Epithelial Cell Urine Auto 0-2 /hpf (0-2); Glucose Urine UA Trace (Negative); Ketones Urine Negative (Negative); Leukocyte Esterase Urine Trace (Negative); Nitrite Urine Negative (Negative); Protein Urine 1+ (Negative); RBC Urine Automated 0-2 /hpf (0-2); Urobilinogen Urine Negative (Negative); WBC Urine Automated 0-5 /hpf (0-5); pH Urine 6.5 (4.5-7.5)
[2024-06-10 18:21] LABS: Potassium 5.1 mmol/L (3.5-5.1)
[2024-06-10 18:38] LABS: Folate (Folic Acid),Ser orPlas > 22.30 ng/ml (>5.38)
[2024-06-10 18:39] LABS: Vitamin B12 771 pg/ml (180-914)
[2024-06-10] MEDS: APIXABAN 2.5 MG TAB PO SCH (20:45)
[2024-06-10] MEDS: predniSONE 10 MG TABLET PO SCH (20:45)
[2024-06-10] MEDS: carvediloL 25 MG TAB PO SCH (20:46)
[2024-06-10] MEDS: ATORVASTATIN 40 MG TAB PO SCH (20:46)
[2024-06-10 21:38] LABS: Troponin I High Sensitivity 37.5 pg/ml (0-20)
[2024-06-10 21:52] LABS: Ferritin 325.2 ng/ml (8-388)
[2024-06-11 03:07] LABS: Hematocrit (blood only) 28.9 % (42.0-52.0); Hemoglobin 8.8 g/dl (14.0-18.0); Mean Corpuscular Hemoglobin 32.8 pg (25.0-34.0); Mean Corpuscular Hgb Conc 30.4 g/dL (32.0-36.0); Mean Corpuscular Volume 107.8 fL (80.0-100.0); Mean Platelet Volume 9.4 fL (9.4-12.4); Platelet Count 164 K/uL (130-400); RDW Coefficient of Variation 15.9 % (11.5-14.5); RDW Standard Deviation 62.4 fL (36.4-46.3); Red Blood Count 2.68 M/uL (4.70-6.10); White Blood Count 10.94 K/ul (4.8-10.8)
[2024-06-11 03:15] LABS: Albumin Globulin Ratio 2.1 (0.9-2); Albumin Level 3.7 gm/dl (3.4-5.0); BUN Creatinine Ratio 15.9 (10-20); Bilirubin,Total 0.3 mg/dl (0.2-1.0); Calcium 8.7 mg/dl (8.6-10.3); Creatinine Clr Calc Pharmacy 18.5 ml/min; Est GFR (African American) 17.7 ml/min; Est GFR (Non-African American) 15.2 ml/min; Globulin 1.8 gm/dl (2.5-4.0); Magnesium 2.2 mg/dl (1.7-2.4); Potassium 5.4 mmol/L (3.5-5.1); Total Protein 5.5 gm/dl (6.0-8.3)
[2024-06-11 03:25] LABS: Prothrombin Time 10.9 Seconds (9.0-12.0)
[2024-06-11 03:28] LABS: Basophils # (auto) 0.01 K/uL (0.00-0.20); Basophils % (auto) 0.1 %; Immature Granulocytes # (auto) 0.11 K/uL (0.01-0.20); Lymphocytes # (auto) 0.48 K/uL (1.20-3.40); Lymphocytes % (auto) 4.4 %; Monocytes # (auto) 0.39 K/uL (0.11-0.59); Monocytes % (auto) 3.6 %; Neutrophils # (auto) 9.95 K/uL (1.40-6.50); Neutrophils % (auto) 90.9 %
[2024-06-11 04:03] LABS: Troponin I High Sensitivity 33.4 pg/ml (0-20)
[2024-06-11 05:38] LABS: Total Protein Urine Random 32.7 mg/dl (0-11.9)
[2024-06-11 05:44] LABS: Creatinine Urine Random 30.3 mg/dl; Protein Creatinine Ratio Urine 1.1 (0-0.2)
[2024-06-11] MEDS ORDERED: methylPREDNISolone 10 mg/mL (For Ped Dose < 7mg) IV SCH (08:45)
[2024-06-11] MEDS ORDERED: BUMETANIDE 1 MG in SYRINGE 0 ML IV SCH (09:00)
[2024-06-11] MEDS: CLOPIDOGREL BISULFATE 75 MG TAB PO SCH (09:01)
[2024-06-11] MEDS: FINASTERIDE 5 MG TAB PO SCH (09:01)
[2024-06-11] MEDS: SERTRALINE HCL 100 MG TABLET PO SCH (09:02)
[2024-06-11] MEDS: SODIUM ZIRCONIUM CYCLOSILICATE 10 GM PACKET PO SCH (10:20)
[2024-06-11] MEDS: methylPREDNISolone 40 MG in SYRINGE 0 ML IV SCH (10:45)
--- NOTE | 2024-06-11 10:51 | Nephrology Progress Note ---
Date of Service June 11, 2024 Assessment & Plan (1) Acute kidney injury: (2) Chronic kidney disease, stage IV (severe): (3) ILD (interstitial lung disease): (4) Anemia: (5) Dyspnea on minimal exertion: (6) Seqhm-py-mvhwnhh kidney injury: (7) Acute and chronic respiratory failure with hypoxia: (8) HTN (hypertension): Plan 79-year-old gentlemen with stage IV CKD secondary to microvascular disease and prior dialysis requiring dense KATHY, history of B-cell lymphoma treated with R- CHOP, history of smoking, COPD with emphysema and interstitial lung disease, admitted with progressive worsening of shortness of breath over last 1 month. Acute kidney injury with history of advanced CKD ? hemodynamically mediated, kidney function stated improved, creatinine 3.5, close to baseline. Electrolyte acceptable. Hemoglobin 8.8. Clinically stable at rest, no chest pain. Mild elevation in troponin stayed stable. Significant dyspnea with exertion most likely related to underlying advanced interstitial lung disease versus multivessel coronary artery disease. --Hold further diuretic at this time, as clinically no sign of significant volume overload, continue to monitor intake and output. -- Will give Epogen 20,000 units x 1 dose today -- dose medications for eGFR less than 15, rt arm nephrology precaution with AV fistula in place. Admission and Anticipated Discharge Date Admission Date: June 10, 2024 Osman Jackson was seen and evaluated this morning. He was sitting at bed, comfortable however reports continued difficulty with breathing with minimal exertion. Pressure stable. Kidney function slightly improved, creatinine close to baseline. Potassium was 5.4 this morning, received Lokelma. Hemoglobin low at 8.8. Review of Systems Review of Systems: Detailed review of system was done and pertinent positives and negatives are mentioned above. Physical Exam Constitutional: WD/WN, vitals as above + ill appearing and + cushingoid Eyes: + anicteric sclerae Neck: normal visual inspection Respiratory: no cough Auscultation: lungs clear to auscultation bilaterally Cardiovascular: Rate/Rhythm: regular rate and regular rhythm Heart Sounds: normal S1 and normal S2 Extremities: + edema (Rt> L) and + AV fistula (Rt RC AVF) Musculoskeletal: Extremities: extremities normal to inspection Skin: no rashes, warm and dry Neurologic: no focal motor deficits Psychiatric: Orientation: alert and oriented x 3 Affect: euthymic affect Results & Data Vital Signs (Past 12 Hours) Vital Signs Temp Pulse Pulse Resp BP Pulse Ox O2 Del Method 06/11/24 08:51 Nasal Cannula 06/11/24 08:00 36.4 C L 79 24 126/56 L 100 Nasal Cannula 06/11/24 04:21 66 06/11/24 03:07 36.5 C 70 17 138/60 99 Nasal Cannula 06/10/24 23:44 36.5 C 66 16 160/77 H 98 Nasal Cannula O2 Flow Rate 06/11/24 08:51 2 06/11/24 08:00 2 06/11/24 04:21 06/11/24 03:07 2 06/10/24 23:44 2 PG Care Time/CCT Total # of Minutes Spent Total Time Spent with Patient: Total time spent is greater than 50% in coordination of care (as documented) at patient's floor/unit and/or counseling patient: Coding Level of Care Code 21749 SUB INP/OBS CARE 2/35MIN Diagnoses Acute kidney injury N17.9 Chronic kidney disease, stage IV (severe) N18.4 ILD (interstitial lung disease) J84.9 Anemia due to stage 4 chronic kidney disease N18.4; D63.1 Anemia type: due to chronic kidney disease Chronic kidney disease stage: stage 4 (severe) Dyspnea on minimal exertion R06.09 Kogvk-qm-dfjthbv kidney injury N17.9; N18.9 Acute and chronic respiratory failure with hypoxia J96.21 Essential hypertension I10 Hypertension type: essential hypertension (4) Anemia Anemia type: due to chronic kidney disease Chronic kidney disease stage: stage 4 (severe) Qualified Code(s): N18.4 - Chronic kidney disease, stage 4 (severe); D63.1 - Anemia in chronic kidney disease (8) HTN (hypertension) Hypertension type: essential hypertension Qualified Code(s): I10 - Essential (primary) hypertension
[2024-06-11] MEDS: EPOETIN ALFA 20,000 UNITS/ML VIAL SQ STA (11:12)
--- NOTE | 2024-06-11 12:29 | Hospitalist Progress Note ---
Date of Service June 11, 2024 Assessment & Plan (1) Dyspnea on minimal exertion: Plan: Appears to be due to underlying interstitial lung disease. He is currently on parenteral steroid therapy. No CHF seen on chest x-ray despite elevated BNP which is probably chronic. Recent cardiac echo reveals ejection fraction of 40% with diffuse left ventricular hypokinesis. (2) Hyperkalemia: Plan: Due to chronic kidney disease. Lokelma therapy started. Serial labs. Avoid BILLY inhibitors and ARB's and spironolactone due to renal insufficiency and hyperkalemia (3) Chronic kidney disease, stage IV (severe): Plan: Monitor intake and output. Serial labs. Appreciate nephrology consultation and recommendations (4) Anemia: Plan: Mild. Chronic. Due to chronic kidney disease stage IV. No evidence of acute blood loss. Serial labs (5) Paroxysmal atrial fibrillation: Plan: Telemetry. Currently in rate controlled sinus rhythm. Continue Eliquis and carvedilol (6) COPD (chronic obstructive pulmonary disease): Plan: With chronic hypoxic respiratory failure and interstitial lung disease. Steroid-dependent. Currently on prednisone 20 mg daily as an outpatient. He is now on parenteral steroid therapy and his oral prednisone dosage will be increased at discharge. Plan Hopeful discharge back to his home within the next day or 2 Admission and Anticipated Discharge Date Admission Date: June 10, 2024 Subjective Alert and oriented. No distress. Admission chest x-ray negative for CHF. He is on Eliquis so there is a very low probability of PE. He is actually using less oxygen per nasal cannula and now than he usually uses at home. He is steroid-dependent and is now on parenteral steroid therapy. Lokelma has been started for mild hyperkalemia. OT and PT assessments have been requested. Hopefully he can go home tomorrow, June 12, on a higher dose of oral prednisone then he is currently taking Review of Systems 2 Review of Systems: Constitutionalno fever or chills ENTno blurred vision, no double vision, no epistaxis, no sore throat Respiratoryno cough, no wheezing. Shortness of breath with exertion Cardiacno palpitations, no chest pain, no syncope Gabino nausea, vomiting, diarrhea, melena, hematochezia GUno urinary retention, no urinary incontinence, no dysuria, no hematuria Musculoskeletalno joint pain, no muscle tenderness Skinno bruising, no rashes, no pruritus Neurono isolated weakness, no paresthesia, no weakness Psychno depression, no anxiety Physical Exam 2 Physical Exam: General-alert and oriented x3, no fever, no chills HEENT-head atraumatic and normocephalic, pupils equal and reactive to light, extraocular muscles intact Neck-no lymphadenopathy or thyromegaly, trachea midline Chest-diminished breath sounds bilaterally with no rales wheezing or rhonchi Cardiac-regular rate and rhythm, normal S1 and S2 Abdomen-normal bowel sounds, no hepatosplenomegaly Extremities-no cyanosis, clubbing, or edema Neuro-cranial nerves II through XII intact, motor and sensory function within normal limits, strength symmetrical, no focal deficits Psych-normal affect, normal mood Results & Data Results & Data Vital Signs (Past 12 Hours) Vital Signs Temp Pulse Pulse Resp BP Pulse Ox O2 Del Method 06/11/24 12:00 36.9 C 67 20 107/61 100 Nasal Cannula 06/11/24 08:51 Nasal Cannula 06/11/24 08:00 36.4 C L 79 24 126/56 L 100 Nasal Cannula 06/11/24 04:21 66 06/11/24 03:07 36.5 C 70 17 138/60 99 Nasal Cannula O2 Flow Rate 06/11/24 12:00 2 06/11/24 08:51 2 06/11/24 08:00 2 06/11/24 04:21 06/11/24 03:07 2 Laboratory Results 06/11/24 02:32 06/11/24 02:32 PG Care Time/CCT Total # of Minutes Spent Total Time Spent with Patient: Total time spent is greater than 50% in coordination of care (as documented) at patient's floor/unit and/or counseling patient: Coding Level of Care Code 67576 SUB INP/OBS CARE 3/50MIN Diagnoses Dyspnea on minimal exertion R06.09 Hyperkalemia E87.5 Chronic kidney disease, stage IV (severe) N18.4 Anemia due to stage 4 chronic kidney disease N18.4; D63.1 Anemia type: due to chronic kidney disease Chronic kidney disease stage: stage 4 (severe) Paroxysmal atrial fibrillation I48.0 COPD (chronic obstructive pulmonary disease) J44.9 (4) Anemia Anemia type: due to chronic kidney disease Chronic kidney disease stage: s tage 4 (severe) Qualified Code(s): N18.4 - Chronic kidney disease, stage 4 (severe); D63.1 - Anemia in chronic kidney disease
--- NOTE | 2024-06-11 12:58 | Cardiology Consultation ---
Date of Consultation June 11, 2024 Assessment & Plan (1) Dyspnea on minimal exertion: (2) Paroxysmal atrial fibrillation: (3) Moderate mitral regurgitation: (4) Left ventricular systolic dysfunction: Plan 1. Dyspnea on exertion: I think this is more closely associated with his primary pulmonary process rather than pulmonary edema, heart failure or coronary disease. I think would be unlikely for him to have hypoxia from coronary disease. While he does appear to be cushingoid and likely has an element of hypovolemia, he does not appear to have significant pulmonary vascular congestion. I would favor treating his lung disease first to see if this affects a significant improvement prior to a coronary evaluation. He undoubtedly has significant coronary disease based on his other comorbidities, but I would question its role in his current symptoms. 2. Cardiomyopathy: Possibly ischemic. Overall he seems compensated. He has continued on a daily dose of bumetanide with reasonable control of his weight and volume status. He will continue on carvedilol. Not an ideal candidate for more aggressive treatment with Entresto, BILLY/ARB or spironolactone due to his renal dysfunction. An SGLT2 inhibitor likely has limited efficacy with his significant renal dysfunction. 3. Mitral regurgitation: Mild on his last examination 4. Atrial fibrillation: He had some atrial fibrillation earlier today. Overall rate control appears adequate. Well-tolerated. Continuing on systemic anticoagulation with apixaban. History of Present Illness Reason for Consultation: Dyspnea on exertion Requesting Physician: Tyrell Attending Physician: Suleiman Juares MD History of Present Illness The patient is a 79-year-old gentleman with a known history of cardiac disease to include reduced LV systolic function with congestive heart failure, valvular heart disease and paroxysmal atrial fibrillation who also suffers from lymphoma and interstitial lung disease. He was admitted to the hospital for symptoms of progressive dyspnea. Patient has an element of shortness of breath at all times. He is on supplemental oxygen at home, generally 4 L/min. Recently he has been experiencing shortness of breath with less and less activity. He states that now it is very difficult for him to walk due to both shortness of breath and lower extremity weakness. He denies any chest pain. Has not had chest pain at rest or with exertion. He he has some mild dizziness and lightheadedness especially if he "pushes it". He did not report coughing recently or fevers or chills. He states that his weight has been relatively stable around 200 pounds. He feels that he might be somewhat edematous, but this may be mild by his report. He does have some right lower extremity edema which he feels is chronic. He has not been aware of palpitations recently. No significant change in diet. He did not report orthopnea or paroxysmal nocturnal dyspnea. Allergies Allergy/AdvReac Type Severity Reaction Status Date / Time No Known Allergies Allergy Verified 06/05/24 14:40 Home Medications Medication Instructions Recorded Confirmed Type atorvastatin 80 mg tablet (Lipitor) 80 mg PO HS #0 tabs 12/21/14 06/10/24 History finasteride 5 mg tablet 5 mg PO QAM 12/04/18 06/10/24 History clopidogrel 75 mg tablet 75 mg PO QAM 09/15/21 06/10/24 History epoetin neptali 40,000 unit/mL 40,000 unit subcut .COMPLEX #1 mL 03/20/23 06/10/24 Rx injection solution (Procrit) oxycodone 5 mg capsule 5 mg PO BID PRN Pain 07/27/23 06/10/24 History bumetanide 1 mg tablet 1 mg PO QAM #30 tabs 08/21/23 06/10/24 Rx nebulizers (Aeroneb Go Nebulizer) #1 ea 09/19/23 03/06/24 Rx Portable Oxygen 12/11/23 03/06/24 History apixaban 5 mg tablet (Eliquis) 5 mg PO BID #180 tabs 12/11/23 06/10/24 Rx carvedilol 25 mg tablet 25 mg PO BID #180 tabs 04/21/24 06/10/24 Rx prednisone 20 mg tablet 10 mg PO BID 06/05/24 06/10/24 History ipratropium 0.5 mg-albuterol 3 mg 3 ml inhalation DIRECTED PRN 06/10/24 06/10/24 History (2.5 mg base)/3 mL nebulization Other soln sertraline 100 mg tablet 100 mg PO DAILY 06/10/24 06/10/24 History Patient History Medical History Chronic anticoagulation Cardiomyopathy HTN (hypertension) Metabolic acidosis [id number] kidney injury Situational depression Severe protein-calorie malnutrition Left leg DVT Anorexia Weight loss Acute respiratory failure with hypoxia Gastroenteritis due to 2019-nCoV Pneumonia due to COVID-19 virus COVID-19 Hyperkalemia Pneumonia 3 YRS AGO Osteoarthritis Chronic back pain Hemodialysis patient LAST DIAYLSIS FEBRUARY 11, 2019. NEPHROLOGY HAS STOPPED DIAYLSIS FOR THE TIME. On anticoagulant therapy Sleep apnea NON-COMPLIANT Hearing deficit Deep vein thrombosis ~ Peripheral vascular disease Peripheral neuropathy Deep vein thrombosis Scrotal swelling Coronary artery disease Acute kidney injury Pneumonia ARF (acute renal failure) Metabolic acidosis Surgical History History of esophagogastroduodenoscopy (EGD) History of colonoscopy History of heart artery stent History of cardiac cath X1. FOLLOWS WITH DR JOYNER S/P femoral-femoral bypass surgery RIGHT LEG H/O vascular surgery REMOVAL OF DVT History of lumbar discectomy History of umbilical hernia repair Family History Mother FHx: lung cancer FHx: uterine cancer Other Allergy Cancer Diabetes Heart disease Lung cancer Lung disease Denies family history of Tuberculosis Emphysema of lung Asthma Social History Smoking Status: Former smoker Tobacco Type: Cigarettes packs per day: 1; Second Hand Exposure: No; Do You Dip or Chew Tobacco: No; Hx Alcohol Use: Yes Alcohol type: beer Hx Substance Use: No Preferred Language: Tunisian Communication Ability: Effective Retirement Manager Required: No Beliefs That Will Affect Care: None Current Living Situation: Spouse Current Living Situation Comment: Andrew Feels Safe at Home: Yes Assistive Devices: Oxygen - Continuous and Walker Review of Systems Review of Systems: Per HPI Physical Exam Physical Exam: The patient is alert and oriented. Mood and affect appeared normal. He answered all questions appropriately. Cushingoid in appearance. HEENT: Pupils are equal and reactive to light and accommodation. Extraocular movements are intact. The sclerae are anicteric. Neuro: Cranial nerves intact Lungs: Bronchial breath sounds with inspiration, distant breath sounds overall. No expiratory wheezing. Prolonged expiratory phase. Cardiac: Heart demonstrates a regular rate and rhythm. Normal S1 and S2. No murmurs on examination. Pulses: The patient has palpable radial pulses bilaterally that are equal in intensity Extremities: There was no evidence of hypoperfusion. The right leg has surgical scars and moderate edema. No edema on the left. Skin: I did not appreciate any rashes on examination today. Results & Data Vital Signs (Past 12 Hours) Vital Signs Temp Pulse Pulse Resp BP Pulse Ox O2 Del Method 06/11/24 12:00 36.9 C 67 20 107/61 100 Nasal Cannula 06/11/24 08:51 Nasal Cannula 06/11/24 08:00 36.4 C L 79 24 126/56 L 100 Nasal Cannula 06/11/24 04:21 66 06/11/24 03:07 36.5 C 70 17 138/60 99 Nasal Cannula O2 Flow Rate 06/11/24 12:00 2 06/11/24 08:51 2 06/11/24 08:00 2 06/11/24 04:21 06/11/24 03:07 2 Laboratory Results Abnormal Lab Results 06/10/24 06/10/24 06/10/24 13:23 14:17 17:02 WBC 10.69 RBC 2.83 L Hgb 9.3 L Hct 30.5 L MCV 107.8 H MCH 32.9 MCHC 30.5 L RDW Std Deviation 63.6 H RDW Coeff of Xiomara 15.9 H Plt Count 211 MPV 9.5 Immature Gran % (Auto) 1.5 Neut % (Auto) 88.5 Lymph % (Auto) 5.3 Pope % (Auto) 4.6 Eos % (Auto) 0.0 Baso % (Auto) 0.1 Neut # (Auto) 9.46 H Lymph # (Auto) 0.57 L Pope # (Auto) 0.49 Eos # (Auto) 0.00 Baso # (Auto) 0.01 Immature Gran # (Auto) 0.16 PT 10.3 INR 0.9 APTT 21 PTT Ratio 0.8 Sodium 142 Potassium 5.2 H Chloride 106 Carbon Dioxide 28 Anion Gap 8 BUN 54 H Creatinine 3.88 H Est Cr Clr Drug Dosing Not Reportable Est GFR ( Amer) 16.0 Est GFR (Non-Af Amer) 13.8 BUN/Creatinine Ratio 13.9 Glucose 94 POC Glucose 94 Calcium 8.5 L Phosphorus 2.9 Magnesium 2.2 Iron TIBC Unsaturated IBC Transferrin % Sat Ferritin Total Bilirubin 0.4 AST 15 ALT 19 Alkaline Phosphatase 35 Troponin I High Sens 38.3 H B-Natriuretic Peptide 1014 H Total Protein 6.0 Albumin 4.0 Globulin 2.0 L Albumin/Globulin Ratio 2.0 Vitamin B12 Folate TSH 1.571 Urine Color Urine Appearance Urine pH Ur Specific Prospect Urine Protein Urine Glucose (UA) Urine Ketones Urine Blood Urine Nitrite Urine Bilirubin Urine Urobilinogen Ur Leukocyte Esterase Urine WBC (Auto) Urine RBC (Auto) U Hyaline Cast (Auto) U Epithel Cells (Auto) Urine Bacteria (Auto) Ur Random Creatinine U Random Total Protein Protein/Creatinin Ratio Nasal Screen MRSA (PCR) Adenovirus (PCR) Not Detected B. pertussis DNA (PCR) Not Detected B.parapertussis DNA PCR Not Detected C. pneumoniae DNA (PCR) Not Detected Coronavirus OC43 (PCR) Not Detected Coronavirus HKU1 (PCR) Not Detected Coronavirus 229E (PCR) Not Detected SARS-CoV-2 (PCR) Not Detected Coronavirus NL63 (PCR) Not Detected Human Metapneumovir PCR Not Detected Influenza Type A (PCR) Not Detected Influenza Type B (PCR) Not Detected M. pneumoniae (PCR) Not Detected Parainfluenza 1 (PCR) Not Detected Parainfluenza 2 (PCR) Not Detected Parainfluenza 3 (PCR) Not Detected Parainfluenza 4 (PCR) Not Detected RSV (PCR) Not Detected Entero/Rhino (PCR) Not Detected 06/10/24 06/10/24 06/10/24 17:04 17:23 17:52 WBC RBC Hgb Hct MCV MCH MCHC RDW Std Deviation RDW Coeff of Xiomara Plt Count MPV Immature Gran % (Auto) Neut % (Auto) Lymph % (Auto) Pope % (Auto) Eos % (Auto) Baso % (Auto) Neut # (Auto) Lymph # (Auto) Pope # (Auto) Eos # (Auto) Baso # (Auto) Immature Gran # (Auto) PT INR APTT PTT Ratio Sodium Potassium 5.1 Chloride Carbon Dioxide Anion Gap BUN Creatinine Est Cr Clr Drug Dosing Est GFR ( Amer) Est GFR (Non-Af Amer) BUN/Creatinine Ratio Glucose POC Glucose Calcium Phosphorus Magnesium Iron 175 TIBC 299 Unsaturated IBC 124 L Transferrin % Sat 59 H Ferritin 325.2 Total Bilirubin AST ALT Alkaline Phosphatase Troponin I High Sens 39.7 H 37.5 H B-Natriuretic Peptide Total Protein Albumin Globulin Albumin/Globulin Ratio Vitamin B12 771 Folate > 22.30 TSH Urine Color Yellow Urine Appearance Clear Urine pH 6.5 Ur Specific Prospect 1.010 Urine Protein 1+ H Urine Glucose (UA) Trace H Urine Ketones Negative Urine Blood Negative Urine Nitrite Negative Urine Bilirubin Negative Urine Urobilinogen Negative Ur Leukocyte Esterase Trace H Urine WBC (Auto) 0-5 Urine RBC (Auto) 0-2 U Hyaline Cast (Auto) 0-2 U Epithel Cells (Auto) 0-2 Urine Bacteria (Auto) 3+ H Ur Random Creatinine 30.3 U Random Total Protein 32.7 H Protein/Creatinin Ratio 1.1 H Nasal Screen MRSA (PCR) Adenovirus (PCR) B. pertussis DNA (PCR) B.parapertussis DNA PCR C. pneumoniae DNA (PCR) Coronavirus OC43 (PCR) Coronavirus HKU1 (PCR) Coronavirus 229E (PCR) SARS-CoV-2 (PCR) Coronavirus NL63 (PCR) Human Metapneumovir PCR Influenza Type A (PCR) Influenza Type B (PCR) M. pneumoniae (PCR) Parainfluenza 1 (PCR) Parainfluenza 2 (PCR) Parainfluenza 3 (PCR) Parainfluenza 4 (PCR) RSV (PCR) Entero/Rhino (PCR) 06/10/24 06/11/24 06/11/24 18:45 02:32 09:21 WBC 10.94 H RBC 2.68 L Hgb 8.8 L Hct 28.9 L MCV 107.8 H MCH 32.8 MCHC 30.4 L RDW Std Deviation 62.4 H RDW Coeff of Xiomara 15.9 H Plt Count 164 MPV 9.4 Immature Gran % (Auto) 1.0 Neut % (Auto) 90.9 Lymph % (Auto) 4.4 Pope % (Auto) 3.6 Eos % (Auto) 0.0 Baso % (Auto) 0.1 Neut # (Auto) 9.95 H Lymph # (Auto) 0.48 L Pope # (Auto) 0.39 Eos # (Auto) 0.00 Baso # (Auto) 0.01 Immature Gran # (Auto) 0.11 PT 10.9 INR 1.0 APTT PTT Ratio Sodium 139 Potassium 5.4 H Chloride 105 Carbon Dioxide 26 Anion Gap 8 BUN 57 H Creatinine 3.58 H D Est Cr Clr Drug Dosing 18.5 Est GFR ( Amer) 17.7 Est GFR (Non-Af Amer) 15.2 BUN/Creatinine Ratio 15.9 Glucose 108 H POC Glucose Calcium 8.7 Phosphorus Magnesium 2.2 Iron TIBC Unsaturated IBC Transferrin % Sat Ferritin Total Bilirubin 0.3 AST 16 ALT 20 Alkaline Phosphatase 34 Troponin I High Sens 33.4 H 30.4 H B-Natriuretic Peptide Total Protein 5.5 L Albumin 3.7 Globulin 1.8 L Albumin/Globulin Ratio 2.1 H Vitamin B12 Folate TSH Urine Color Urine Appearance Urine pH Ur Specific Prospect Urine Protein Urine Glucose (UA) Urine Ketones Urine Blood Urine Nitrite Urine Bilirubin Urine Urobilinogen Ur Leukocyte Esterase Urine WBC (Auto) Urine RBC (Auto) U Hyaline Cast (Auto) U Epithel Cells (Auto) Urine Bacteria (Auto) Ur Random Creatinine U Random Total Protein Protein/Creatinin Ratio Nasal Screen MRSA (PCR) Negative Adenovirus (PCR) B. pertussis DNA (PCR) B.parapertussis DNA PCR C. pneumoniae DNA (PCR) Coronavirus OC43 (PCR) Coronavirus HKU1 (PCR) Coronavirus 229E (PCR) SARS-CoV-2 (PCR) Coronavirus NL63 (PCR) Human Metapneumovir PCR Influenza Type A (PCR) Influenza Type B (PCR) M. pneumoniae (PCR) Parainfluenza 1 (PCR) Parainfluenza 2 (PCR) Parainfluenza 3 (PCR) Parainfluenza 4 (PCR) RSV (PCR) Entero/Rhino (PCR) Diagnostic Findings 1. 01/16/23 Echo: Moderate to severe LV dysfunction- EF 30-35%. Mild LVH. Mild left atrial dilation. Mild . Mild-mod MR. Mild KS. 2. 04/30/23 Echo: [facility]. LVEF 50-54%. LV size is normal. LV wall thickness is normal. No LV thrombus. Distal inferolateral hypokinesis. 3. 04/07/24 Echo: [facility]: LVEF 40-44%. RV size/function normal. Mild MR. PG Care Time/CCT Total # of Minutes Spent Total Time Spent with Patient: Total time spent is greater than 50% in coordination of care (as documented) at patient's floor/unit and/or counseling patient: Coding Level of Care Code 94301 INT INP/OBS CARE 3/75MIN Diagnoses Dyspnea on minimal exertion R06.09 Paroxysmal atrial fibrillation I48.0 Moderate mitral regurgitation I34.0 Left ventricular systolic dysfunction I51.9
[2024-06-12 05:12] LABS: Hematocrit (blood only) 28.1 % (42.0-52.0); Hemoglobin 8.8 g/dl (14.0-18.0); Mean Corpuscular Hemoglobin 33.2 pg (25.0-34.0); Mean Corpuscular Hgb Conc 31.3 g/dL (32.0-36.0); Mean Platelet Volume 9.4 fL (9.4-12.4); Platelet Count 163 K/uL (130-400); RDW Coefficient of Variation 15.9 % (11.5-14.5); RDW Standard Deviation 61.7 fL (36.4-46.3); Red Blood Count 2.65 M/uL (4.70-6.10); White Blood Count 8.67 K/ul (4.8-10.8)
[2024-06-12 05:45] LABS: BUN Creatinine Ratio 18.4 (10-20); Creatinine Clr Calc Pharmacy 20.3 ml/min; Est GFR (African American) 19.8 ml/min; Est GFR (Non-African American) 17.1 ml/min; Potassium 4.1 mmol/L (3.5-5.1)
[2024-06-12 06:22] LABS: Basophils # (auto) 0.01 K/uL (0.00-0.20); Basophils % (auto) 0.1 %; Immature Granulocytes # (auto) 0.16 K/uL (0.01-0.20); Immature Granulocytes % (auto) 1.8 %; Lymphocytes # (auto) 0.37 K/uL (1.20-3.40); Lymphocytes % (auto) 4.3 %; Monocytes # (auto) 0.31 K/uL (0.11-0.59); Monocytes % (auto) 3.6 %; Neutrophils # (auto) 7.82 K/uL (1.40-6.50); Neutrophils % (auto) 90.2 %
[2024-06-12] MEDS: SODIUM CHLORIDE 0.9% 1,000 ML IV SCH (10:36)
--- NOTE | 2024-06-12 11:01 | Nephrology Progress Note ---
Date of Service June 12, 2024 Assessment & Plan (1) Acute kidney injury: (2) Chronic kidney disease, stage IV (severe): (3) ILD (interstitial lung disease): (4) Anemia: (5) Dyspnea on minimal exertion: (6) Catrs-ag-oxrmvzj kidney injury: (7) Acute and chronic respiratory failure with hypoxia: (8) HTN (hypertension): Plan 79-year-old gentlemen with stage IV CKD secondary to microvascular disease and prior dialysis requiring dense KATHY, history of B-cell lymphoma treated with R- CHOP, history of smoking, COPD with emphysema and interstitial lung disease, admitted with progressive worsening of shortness of breath over last 1 month. Acute kidney injury with history of advanced CKD ? hemodynamically mediated, kidney function improved, and creatinine 3.3, close to baseline. Electrolyte acceptable. Hemoglobin 8.8, stable, received NICOLASA on 07/01.. Clinically stable at rest, no chest pain. Significant dyspnea with exertion most likely related to underlying advanced interstitial lung disease versus multivessel coronary artery disease. -- Continue to hold diuretic at this time, as clinically no sign of significant volume overload, continue to monitor intake and output. -- Received Epogen 20,000 units x 1 dose yesterday, will check iron stores with next lab -- dose medications for eGFR less than 15, rt arm nephrology precaution with AV fistula in place. Admission and Anticipated Discharge Date Admission Date: June 10, 2024 Osman Jackson was seen and evaluated this morning. Reports overall feeling better, not as short of breath while he was walking around the room. Blood pressure stable. Kidney function, electrolyte stable, close to baseline. Review of Systems Review of Systems: Detailed review of system was done and pertinent positives and negatives are mentioned above. Physical Exam Constitutional: WD/WN, vitals as above + acute distress and + cushingoid Eyes: + anicteric sclerae Neck: normal visual inspection Respiratory: no cough Auscultation: lungs clear to auscultation bilaterally Cardiovascular: Rate/Rhythm: regular rate and regular rhythm Heart Sounds: normal S1 and normal S2 Extremities: + edema (Rt> L) and + AV fistula (Rt RC AVF) Musculoskeletal: Extremities: extremities normal to inspection Skin: no rashes, warm and dry Neurologic: no focal motor deficits Psychiatric: Orientation: alert and oriented x 3 Affect: euthymic affect Results & Data Vital Signs (Past 12 Hours) Vital Signs Temp Pulse Pulse Resp BP BP Pulse Ox 06/12/24 10:21 71 15 06/12/24 10:18 72 13 06/12/24 10:03 71 15 06/12/24 09:00 75 16 06/12/24 08:00 37.1 C 06/12/24 08:00 64 06/12/24 07:30 138/65 06/12/24 07:24 79 22 06/12/24 04:03 59 L 15 06/12/24 03:25 36.3 C L 61 19 156/79 H 100 06/12/24 00:00 36.8 C 71 17 99 06/11/24 23:58 69 O2 Del Method O2 Flow Rate 06/12/24 10:21 06/12/24 10:18 06/12/24 10:03 06/12/24 09:00 06/12/24 08:00 06/12/24 08:00 06/12/24 07:30 06/12/24 07:24 06/12/24 04:03 06/12/24 03:25 Nasal Cannula 2 06/12/24 00:00 Nasal Cannula 2 06/11/24 23:58 PG Care Time/CCT Total # of Minutes Spent Total Time Spent with Patient: Total time spent is greater than 50% in coordination of care (as documented) at patient's floor/unit and/or counseling patient: Coding Level of Care Code 74079 SUB INP/OBS CARE 235MIN Diagnoses Acute kidney injury N17.9 Chronic kidney disease, stage IV (severe) N18.4 ILD (interstitial lung disease) J84.9 Anemia due to stage 4 chronic kidney disease N18.4; D63.1 Anemia type: due to chronic kidney disease Chronic kidney disease stage: stage 4 (severe) Dyspnea on minimal exertion R06.09 Mywug-ed-xxhxowr kidney injury N17.9; N18.9 Acute and chronic respiratory failure with hypoxia J96.21 Essential hypertension I10 Hypertension type: essential hypertension (4) Anemia Anemia type: due to chronic kidney disease Chronic kidney disease stage: stage 4 (severe) Qualified Code(s): N18.4 - Chronic kidney disease, stage 4 (severe); D63.1 - Anemia in chronic kidney disease (8) HTN (hypertension) Hypertension type: essential hypertension Qualified Code(s): I10 - Essential (primary) hypertension
--- NOTE | 2024-06-12 14:35 | Hospitalist Progress Note ---
Date of Service June 12, 2024 Assessment & Plan (1) Dyspnea on minimal exertion: Plan: Now back to baseline. Appears to be due to underlying interstitial lung disease. He is currently on parenteral steroid therapy. Eventual discharge to home on prednisone 40 mg daily which is higher than his 20 mg daily that he came in on. No CHF seen on chest x-ray despite elevated BNP which is probably chronic. Recent cardiac echo reveals ejection fraction of 40% with diffuse left ventricular hypokinesis. (2) Hyperkalemia: Plan: Due to chronic kidney disease. Now normalized with Lokelma therapy. Lokelma has been discontinued. Serial labs. Avoid BILLY inhibitors, ARB's and spironolactone due to renal insufficiency and hyperkalemia (3) Chronic kidney disease, stage IV (severe): Plan: Creatinine is improving. Monitor intake and output. Serial labs. Appreciate nephrology consultation and recommendations (4) Anemia: Plan: Mild. Chronic. Due to chronic kidney disease stage IV. No evidence of acute blood loss. Serial labs (5) Paroxysmal atrial fibrillation: Plan: Telemetry. Currently in rate controlled sinus rhythm. Continue Eliquis and carvedilol (6) COPD (chronic obstructive pulmonary disease): Plan: With chronic hypoxic respiratory failure and interstitial lung disease. Steroid-dependent. Currently on prednisone 20 mg daily as an outpatient. He is now on parenteral steroid therapy and his oral prednisone dosage will be increased at discharge. Plan Hopeful discharge back to his home tomorrow, June 13 Admission and Anticipated Discharge Date Admission Date: June 10, 2024 Subjective He looks and feels better. He is ambulating well now. Potassium is down to 4.1 and Lokelma has been discontinued. Creatinine continues to trend downward, now 3.2. He is currently on Solu-Medrol and will be switched at discharge to oral prednisone at 40 mg daily which is higher than the 20 mg daily that he was on before. His Bumex will be restarted at discharge. Hopefully home tomorrow, June 13 Review of Systems 2 Review of Systems: Constitutionalno fever or chills ENTno blurred vision, no double vision, no epistaxis, no sore throat Respiratoryno cough, no wheezing. Shortness of breath with exertion Cardiacno palpitations, no chest pain, no syncope Gabino nausea, vomiting, diarrhea, melena, hematochezia GUno urinary retention, no urinary incontinence, no dysuria, no hematuria Musculoskeletalno joint pain, no muscle tenderness Skinno bruising, no rashes, no pruritus Neurono isolated weakness, no paresthesia, no weakness Psychno depression, no anxiety Physical Exam 2 Physical Exam: General-alert and oriented x3, no fever, no chills HEENT-head atraumatic and normocephalic, pupils equal and reactive to light, extraocular muscles intact Neck-no lymphadenopathy or thyromegaly, trachea midline Chest-diminished breath sounds bilaterally with no rales wheezing or rhonchi Cardiac-regular rate and rhythm, normal S1 and S2 Abdomen-normal bowel sounds, no hepatosplenomegaly Extremities-no cyanosis, clubbing, or edema Neuro-cranial nerves II through XII intact, motor and sensory function within normal limits, strength symmetrical, no focal deficits Psych-normal affect, normal mood Results & Data Results & Data Vital Signs (Past 12 Hours) Vital Signs Temp Pulse Pulse Resp BP BP Pulse Ox 06/12/24 13:48 89 25 H 06/12/24 13:06 73 19 06/12/24 12:00 70 17 06/12/24 11:24 133/62 06/12/24 11:18 70 22 06/12/24 11:12 66 19 06/12/24 10:21 71 15 06/12/24 10:18 72 13 06/12/24 10:03 71 15 06/12/24 09:00 75 16 06/12/24 08:00 37.1 C 06/12/24 08:00 64 06/12/24 07:30 138/65 06/12/24 07:24 79 22 06/12/24 04:03 59 L 15 06/12/24 03:25 36.3 C L 61 19 156/79 H 100 O2 Del Method O2 Flow Rate 06/12/24 13:48 06/12/24 13:06 06/12/24 12:00 06/12/24 11:24 06/12/24 11:18 06/12/24 11:12 06/12/24 10:21 06/12/24 10:18 06/12/24 10:03 06/12/24 09:00 06/12/24 08:00 06/12/24 08:00 06/12/24 07:30 06/12/24 07:24 06/12/24 04:03 06/12/24 03:25 Nasal Cannula 2 Laboratory Results 06/12/24 04:37 06/12/24 04:37 PG Care Time/CCT Total # of Minutes Spent Total Time Spent with Patient: Total time spent is greater than 50% in coordination of care (as documented) at patient's floor/unit and/or counseling patient: Coding Level of Care Code 01809 SUB INP/OBS CARE 3/50MIN Diagnoses Dyspnea on minimal exertion R06.09 Hyperkalemia E87.5 Chronic kidney disease, stage IV (severe) N18.4 Anemia due to stage 4 chronic kidney disease N18.4; D63.1 Anemia type: due to chronic kidney disease Chronic kidney disease stage: stage 4 (severe) Paroxysmal atrial fibrillation I48.0 COPD (chronic obstructive pulmonary disease) J44.9 (4) Anemia Anemia type: due to chronic kidney disease Chronic kidney disease stage: s tage 4 (severe) Qualified Code(s): N18.4 - Chronic kidney disease, stage 4 (severe); D63.1 - Anemia in chronic kidney disease
--- NOTE | 2024-06-12 14:44 | Cardiology Progress Note ---
Date of Service June 12, 2024 Assessment & Plan (1) Dyspnea on minimal exertion: (2) Paroxysmal atrial fibrillation: (3) Moderate mitral regurgitation: (4) Left ventricular systolic dysfunction: Plan 1. Dyspnea on exertion: He seems to be improving with an increased dose of steroid. Ammon is condition improved and I think there is an urgent indication for coronary angio on her feet. I would recommend resumption of his usual outpatient diuretic regimen at the time of discharge. 2. Cardiomyopathy: Possibly ischemic. Overall he seems compensated. He has continued on a daily dose of bumetanide with reasonable control of his weight and volume status. He will continue on carvedilol. Not an ideal candidate for more aggressive treatment with Entresto, BILLY/ARB or spironolactone due to his renal dysfunction. An SGLT2 inhibitor likely has limited efficacy with his significant renal dysfunction. 3. Mitral regurgitation: Mild on his last examination 4. Atrial fibrillation: He has paroxysmal atrial fibrillation. He seems a cycle in and out on a fairly frequent basis. Episodes last a couple of hours. Rate control appears adequate. Not symptomatic. Continue systemic anticoagulation. Admission and Anticipated Discharge Date Admission Date: June 10, 2024 Subjective This morning the patient clearly feeling better. He states that his breathing is improved. He was able to ambulate a little bit around the room and galeano with improvement in his breathing. No dizziness. No chest pain. Review of Systems Review of Systems: Per HPI Physical Exam Physical Exam: The patient is alert and oriented. Mood and affect appeared normal. He answered all questions appropriately. Cushingoid in appearance. HEENT: Pupils are equal and reactive to light and accommodation. Extraocular movements are intact. The sclerae are anicteric. Neuro: Cranial nerves intact Lungs: Bronchial breath sounds with inspiration, distant breath sounds overall. No expiratory wheezing. Prolonged expiratory phase. Cardiac: Heart demonstrates a regular rate and rhythm. Normal S1 and S2. No murmurs on examination. Pulses: The patient has palpable radial pulses bilaterally that are equal in intensity Extremities: There was no evidence of hypoperfusion. The right leg has surgical scars and moderate edema. No edema on the left. Skin: I did not appreciate any rashes on examination today. Results & Data Vital Signs (Past 12 Hours) Vital Signs Temp Pulse Pulse Resp BP BP Pulse Ox 06/12/24 13:48 89 25 H 06/12/24 13:06 73 19 06/12/24 12:00 70 17 06/12/24 11:24 133/62 06/12/24 11:18 70 22 06/12/24 11:12 66 19 06/12/24 10:21 71 15 06/12/24 10:18 72 13 06/12/24 10:03 71 15 06/12/24 09:00 75 16 06/12/24 08:00 37.1 C 06/12/24 08:00 64 06/12/24 07:30 138/65 06/12/24 07:24 79 22 06/12/24 04:03 59 L 15 06/12/24 03:25 36.3 C L 61 19 156/79 H 100 O2 Del Method O2 Flow Rate 06/12/24 13:48 06/12/24 13:06 06/12/24 12:00 06/12/24 11:24 06/12/24 11:18 06/12/24 11:12 06/12/24 10:21 06/12/24 10:18 06/12/24 10:03 06/12/24 09:00 06/12/24 08:00 06/12/24 08:00 06/12/24 07:30 06/12/24 07:24 06/12/24 04:03 06/12/24 03:25 Nasal Cannula 2 PG Care Time/CCT Total # of Minutes Spent Total Time Spent with Patient: Total time spent is greater than 50% in coordination of care (as documented) at patient's floor/unit and/or counseling patient: Coding Level of Care Code 03386 SUB INP/OBS CARE 2/35MIN Diagnoses Dyspnea on minimal exertion R06.09 Paroxysmal atrial fibrillation I48.0 Moderate mitral regurgitation I34.0 Left ventricular systolic dysfunction I51.9
[2024-06-12 19:19] VITALS: RESP 18
[2024-06-13 07:12] LABS: Basophils # (auto) 0.02 K/uL (0.00-0.20); Basophils % (auto) 0.2 %; Hematocrit (blood only) 30.9 % (42.0-52.0); Hemoglobin 9.2 g/dl (14.0-18.0); Immature Granulocytes # (auto) 0.25 K/uL (0.01-0.20); Immature Granulocytes % (auto) 2.1 %; Lymphocytes # (auto) 0.43 K/uL (1.20-3.40); Lymphocytes % (auto) 3.5 %; Mean Corpuscular Hemoglobin 32.3 pg (25.0-34.0); Mean Corpuscular Hgb Conc 29.8 g/dL (32.0-36.0); Mean Corpuscular Volume 108.4 fL (80.0-100.0); Mean Platelet Volume 9.6 fL (9.4-12.4); Monocytes # (auto) 0.54 K/uL (0.11-0.59); Monocytes % (auto) 4.4 %; Neutrophils # (auto) 10.94 K/uL (1.40-6.50); Neutrophils % (auto) 89.8 %; Nucleated RBC # (auto) 0.07 K/uL (0.00-0.12); Nucleated RBC % (auto) 0.6 %; Platelet Count 179 K/uL (130-400); RDW Coefficient of Variation 15.9 % (11.5-14.5); RDW Standard Deviation 63.7 fL (36.4-46.3); Red Blood Count 2.85 M/uL (4.70-6.10); White Blood Count 12.18 K/ul (4.8-10.8)
[2024-06-13 07:49] LABS: Albumin Level 3.7 gm/dl (3.4-5.0); BUN Creatinine Ratio 19.7 (10-20); Calcium 7.9 mg/dl (8.6-10.3); Creatinine Clr Calc Pharmacy 22.1 ml/min; Est GFR (African American) 21.9 ml/min; Est GFR (Non-African American) 18.9 ml/min; Phosphorus 5.1 mg/dl (2.5-4.9); Potassium 3.9 mmol/L (3.5-5.1)
[2024-06-13 08:08] LABS: Ferritin 307.9 ng/ml (8-388)
[2024-06-13] MEDS ORDERED: predniSONE 20 MG TAB PO STA (10:34)
--- NOTE | 2024-06-13 10:55 | Discharge Summary ---
Discharge Summary Date of Service June 13, 2024 Principal Dx & Hospital Course #1 = Principal Diagnosis (1) Dyspnea on minimal exertion: Now back to baseline. Appears to be due to underlying interstitial lung disease. He was treated while hospitalized with parenteral steroid therapy. Discharge to home on prednisone 40 mg daily which is higher than his 20 mg daily that he came in on. No CHF seen on chest x-ray despite elevated BNP which is probably chronic. Recent cardiac echo reveals ejection fraction of 40% with diffuse left ventricular hypokinesis. (2) Hyperkalemia: Due to chronic kidney disease. Now normalized with Lokelma therapy. Lokelma has been discontinued. Serial labs. Avoid BILLY inhibitors, ARB's and spironolactone due to renal insufficiency and hyperkalemia (3) Chronic kidney disease, stage IV (severe): Creatinine continues to improve. Now down to 3.0. Monitor intake and output. Serial labs. Appreciate nephrology consultation and recommendations (4) Anemia: Mild. Chronic. Due to chronic kidney disease stage IV. No evidence of acute blood loss. Serial labs (5) Paroxysmal atrial fibrillation: Telemetry. Currently in rate controlled sinus rhythm. Continue Eliquis and carvedilol (6) COPD (chronic obstructive pulmonary disease): With chronic hypoxic respiratory failure and interstitial lung disease. Steroid-dependent. Currently on prednisone 20 mg daily as an outpatient. He was treated while hospitalized with parenteral steroid therapy and his oral prednisone dosage has been increased to 20 mg twice daily at discharge. Plan Home today, June 13 Admission HPI Per Admitting Provider Manuel is a 79-year-old male with a past medical history significant for HFrEF, paroxysmal atrial fibrillation (on Eliquis), COPD, recurrent UTI, chronic respiratory failure with acute exacerbations, restrictive lung disease, history of hypersensitivity pneumonitis, multiple pulmonary nodules, MAEGAN (noncompliant with at bedtime CPAP), GERD and CKD stage IV who [facility] to [facility] ED on 06[facility]10/[facility]24 with progressive shortness of breath compared to baseline. He was noted to be hypoxic at 88% on room air but was otherwise stable. Labs were significant for hemoglobin 9.3 (down from 11.2 as of 05/01/2024), creatinine of 3.88 (baseline is near 3.03.5), potassium of 5.2, initial high-sensitivity troponin of 38, BNP of 1014, and full respiratory BioFire negative. Chest x-ray was read as negative for acute findings. EKG shows sinus rhythm with occasional premature ventricular complexes but without acute ST segment or T wave changes compared to previous ECG. We are asked to evaluate the patient for admission as he may require cardiac cath in the near future. Patient was sitting in bed in no acute distress at the time of exam with his and daughter at bedside, history is obtained from all. He explains that over the past 3 to 4 weeks he has been experiencing progressive dyspnea on exertion. Symptoms have progressed to the point where he can do very little activity without becoming severely short of breath and weak. Feels like he gets weak in the bilateral lower extremities with minimal exertion. Denies any chest discomfort with these other symptoms and confirms that symptoms resolve with rest. Currently sitting and at rest he is asymptomatic. Denies cough, pleuritic chest pain, fever/chills, abdominal pain, nausea/vomiting, dysuria/hematuria, melena, diarrhea, recent trauma. States that he uses chronic O2 at home, typically uses 2 L as needed but has had increased up to 4 L over the past 2 weeks to relieve symptoms. When asked, he and his family feel as though he has been having increased swelling and weight gain not just in the bilateral lower extremities but in the abdomen and face as well. He and his confirmed that he has been compliant with his daily 1.5 mg p.o. Bumex daily and states that he follows his low-sodium diet. Confirms that he has been compliant with his home Eliquis and Plavix. We discussed that if he were to require heart cath there is a risk of progression of his CKD up into the point of requiring dialysis. He and his family expressed understanding and confirmed that he did have to go on dialysis for short time during his admission for COVID pneumonia 2019. He and his family are in agreement that if it is determined that coronary artery disease is the cause of his symptoms they would want him to undergo heart cath even if it required him to subsequently require dialysis as a understand he quickly from an [place] but could continue living if he required dialysis moving forward. Patient is a full code and want his and daughter to make medical decisions for him if he cannot make himself. Please refer to Dr. Chatman's attestation for any changes to the treatment plan Discharge Exam General-alert and oriented x3, no fever, no chills HEENT-head atraumatic and normocephalic, pupils equal and reactive to light, extraocular muscles intact Neck-no lymphadenopathy or thyromegaly, trachea midline Chest-diminished breath sounds bilaterally with no rales wheezing or rhonchi Cardiac-regular rate and rhythm, normal S1 and S2 Abdomen-normal bowel sounds, no hepatosplenomegaly Extremities-no cyanosis, clubbing, or edema Neuro-cranial nerves II through XII intact, motor and sensory function within normal limits, strength symmetrical, no focal deficits Psych-normal affect, normal mood Discharge Plan Discharge Items Patient Disposition: Home - Self-Care Reason For Visit: TREVINO, ELEVATED TROP, VOLUME OVERLOAD Discharge Diagnosis: Dyspnea on exertion, COPD with interstitial lung disease, elevated troponin without acute coronary syndrome Activity: Resume your previous activity Non-emergency contact: Primary Care Provider and Site Controller Call non-emergency contact if: your symptoms worsen Follow-up/Referrals: Pierre Costa PA-C [Primary Care Provider] - Diet: Regular and Heart Healthy Addtl Attending Provider Instructions: Take prednisone 20 mg twice daily until further notice. All other medications remain the same. A new prescription has been sent to your [facility] pharmacy in [facility] Pending Studies at Discharge: No Stand-Alone Forms: My [facility], Smoking Cessation Medications and DC Order Prescriptions: New prednisone 10 mg tablet 20 mg PO BID Qty: 60 0RF Continued atorvastatin [Lipitor] 80 mg Tablet 80 mg PO HS Qty: 0 Procrit 40,000 unit/mL solution 40,000 unit subcut .COMPLEX Qty: 1 0RF Rx Instructions: 40,000 units subcutaneously Monthly; carvedilol 25 mg tablet 25 mg PO BID Qty: 180 3RF Rx Instructions: must administer with a meal/food clopidogrel 75 mg tablet 75 mg PO QAM (DME) Portable Oxygen Misc See Rx Instructions .MEDSUPPLY Rx Instructions: Oxygen 3 liters continuous via nasal cannula at bedtime with portable concentrator. ZENOBIA 99 (DME) nebulizers [Aeroneb Go Nebulizer] Misc See Rx Instructions .MEDSUPPLY Qty: 1 0RF Rx Instructions: With tubing and supplies. J44.9. J45.9. Eliquis 5 mg tablet 5 mg PO BID Qty: 180 3RF oxycodone 5 mg capsule 5 mg PO BID PRN (Reason: Pain) finasteride 5 mg tablet 5 mg PO QAM bumetanide 1 mg Tablet 1 mg PO QAM Qty: 30 0RF ipratropium-albuterol 0.5 mg-3 mg(2.5 mg base)/3 mL solution for nebulization 3 ml INHALATION DIRECTED PRN (Reason: Other) sertraline 100 mg tablet 100 mg PO DAILY Discontinued prednisone 20 mg tablet 10 mg PO BID Rx Instructions: does 10 mg qam and 10 mg pm Discharge Orders: Discharge Order (Routine); Ordered 06/13/24 Ordered By: Suleiman Juares Admission Data Admit Date/Time: 06/10/24 15:37 Attending Provider: Suleiman Juares Admit Provider: Vasiliy Chatman Primary Care Provider: Pierre Costa Other Providers: Vasiliy Chatman; Kyree Davis; [facility] Stay Data Consultations 06/10/24 14:57 ED Decision to Admit Stat 06/10/24 15:38 Consult Cardiology Routine Consult Nephrology Routine Pending Results Patient Have Any Pending Studies at Discharge: No Discharge Instructions Given to Patient (Per Discharging Provider) Take prednisone 20 mg twice daily until further notice. All other medications remain the same. A new prescription has been sent to your 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
[2024-06-13] MEDS: predniSONE 20 MG TAB PO ONE (11:11)
[2024-06-13 11:18] VITALS: BP 146/73; TEMP 97.5
--- NOTE | 2024-06-13 11:33 | Nephrology Progress Note ---
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 Acute kidney injury resolved, creatinine 3.0, close to baseline. Electrolyte acceptable. Hemoglobin improved to 9.2, adequate iron store, received NICOLASA on 07/01.. Clinically stable at rest, no chest pain. Significant dyspnea with exertion most likely related to underlying advanced interstitial lung disease versus multivessel coronary artery disease. --Ok to resume Bumex at 1 mg daily on discharge. -- dose medications for eGFR less than 15, rt arm nephrology precaution with AV fistula in place. Admission and Anticipated Discharge Date Admission Date: June 10, 2024 Osman Jackson was seen and evaluated this morning. Overall doing better with high dose steroid. Blood pressure stable. Kidney function, electrolyte stable, close to baseline. Review of Systems Review of Systems: Detailed review of system was done and pertinent positives and negatives are mentioned above. Physical Exam Constitutional: WD/WN, vitals as above + acute distress and + cushingoid Eyes: + anicteric sclerae Neck: normal visual inspection Respiratory: no cough Auscultation: lungs clear to auscultation bilaterally Cardiovascular: Rate/Rhythm: regular rate and regular rhythm Heart Sounds: normal S1 and normal S2 Extremities: + edema (Rt> L) and + AV fistula (Rt RC AVF) Musculoskeletal: Extremities: extremities normal to inspection Skin: no rashes, warm and dry Neurologic: no focal motor deficits Psychiatric: Orientation: alert and oriented x 3 Affect: euthymic affect Results & Data Vital Signs (Past 12 Hours) Vital Signs Temp Pulse Pulse Resp BP Pulse Ox O2 Del Method 06/13/24 11:17 36.4 C L 75 18 146/73 H 100 Nasal Cannula 06/13/24 07:48 Nasal Cannula 09/06/24 07:31 36.5 C 66 18 157/77 H 99 Nasal Cannula 06/13/24 04:00 80 06/13/24 03:09 36.5 C 71 18 177/79 H 93 Nasal Cannula O2 Flow Rate 06/13/24 11:17 2 06/13/24 07:48 06/13/24 07:31 1 06/13/24 04:00 06/13/24 03:09 2 PG Care Time/CCT Total # of Minutes Spent Total Time Spent with Patient: Total time spent is greater than 50% in coordination of care (as documented) at patient's floor/unit and/or counseling patient: Coding Level of Care Code 34218 SUB INP/OBS CARE 2/35MIN Diagnoses Chronic kidney disease, stage IV (severe) N18.4 Acute kidney injury N17.9 ILD (interstitial lung disease) J84.9 Anemia due to stage 4 chronic kidney disease N18.4; D63.1 Anemia type: due to chronic kidney disease Chronic kidney disease stage: stage 4 (severe) Dyspnea on minimal exertion R06.09 Ffddh-[id number] kidney injury N17.9; N18.9 Acute and chronic respiratory failure with hypoxia J96.21 Essential hypertension I10 Hypertension type: essential hypertension (4) Anemia Anemia type: due to chronic kidney disease Chronic kidney disease stage: stage 4 (severe) Qualified Code(s): N18.4 - Chronic kidney disease, stage 4 (severe); D63.1 - Anemia in chronic kidney disease (8) HTN (hypertension) Hypertension type: essential hypertension Qualified Code(s): I10 - Essential (primary) hypertension
[2024-06-13 12:48] VITALS: PULSE 65; O2SAT 97
== END 2024-06-13 13:42 | disposition home or self-care (01) | DRG 197 ==
LOC: ED 12:50 → 1E 15:37 → SUATTDRO 15:37 → 1E 18:27 → 2S 06-12 17:09

== ENCOUNTER 2024-07-17 09:39 | Inpatient (IN) ==
--- NOTE | 2024-07-17 10:33 | Emergency Department Note ---
Impression & Plan Acute on chronic respiratory failure with hypoxia, CHF exacerbation, COPD (chronic obstructive pulmonary disease) ED Provider Note NAME: MEG FINK AGE: 79 SEX: M : 1945 ARRIVES VIA: Walk-In INFORMANT: Patient ED PROVIDER(S): Guy Poon MD CHIEF COMPLAINT: Shortness of breath PLAN: Disposition: Admit MEDICAL DECISION MAKING: The patient is a pleasant 79-year-old gentleman with past medical history of cardiomyopathy, stage IV CKD, atrial fibrillation on Eliquis, hypertension, hyperlipidemia, restrictive lung disease, non-Hodgkin's lymphoma who presents to the emergency department via walk-in, accompanied by family for evaluation of worsening shortness of breath which they report has been ongoing since his admission to this facility last month for similar symptoms in setting of volume overload. They report that he is increased his home oxygen from 4 L to 5 L. He reports his providers are aware of this. He was seen by his oncologist yesterday and had blood work ordered and they are looking into having CT imaging to assess his cancer. He was to have a chest x-ray today in preparation for follow-up with pulmonology. Denies any fevers. He denies any new cough or congestion. He denies any GI or symptoms. On evaluation the patient is in no distress, afebrile with O2 saturation initially 85% improving to mid 90s on 5 L nasal cannula and vital signs otherwise stable. He appears hypervolemic. His weight is improved from his last admission though still up from dry weight. Lungs are diminished at the bases with intermittent wheeze. EKG without overt acute ischemia. CXR demonstrates cardiomegaly with vascular congestion and trace pleural effusions. WBC and platelets within normal limits. H/H similar to prior values. VBG with pCO2 of 59 and pH of 7.29 consistent with component of COPD. Creatinine 3.59 similar to prior range values in the setting of CKD. Electrolytes are unremarkable. LFTs are unremarkable. High styptic troponin is 27.8, nonspecific. BNP is 600, improved from prior admission and in the setting of CKD. TSH within normal limits. Respiratory BioFire was negative. Treatment Ishee aided with IV Bumex and DuoNeb in the emergency department. Given the patient's worsening dyspnea on exertion since his last admission patient and family agree with plan for admission for further management. [place] was d[place] [facility] [place] will evaluate the patient for admission. Further management per admitting team. Triage Nursing notes reviewed and agree them. Prior/external medical records reviewed Vital Signs: reviewed Differential diagnosis: Reactive airway disease, pneumonia, pneumothorax, COPD, CHF, infections, cardiac ischemia, pulmonary embolism, musculoskeletal, gastrointestinal, as well as other pathologies. ER treatment provided: See below. Diagnostics interpreted by me: ECG: Sinus rhythm with occasional PVCs, 69 bpm, LVH with repolarization abnormality, no overt ST elevation or depression, QTc 437, QRS 88. Cardiac Monitoring: An order for continuous cardiac monitoring was placed and demonstrated Sinus rhythm with occasional PVCs, 69 bpm. Laboratory studies: See below Imaging studies: See below Consultation(s): Dr. [place] [facility] [place] HPI: The patient is a pleasant 79-year-old gentleman with past medical history of cardiomyopathy, stage IV CKD, atrial fibrillation on Eliquis, hypertension, hyperlipidemia, restrictive lung disease, non-Hodgkin's lymphoma who presents to the emergency department via walk-in, accompanied by family for evaluation of worsening shortness of breath which they report has been ongoing since his admission to this facility last month for similar symptoms in setting of volume overload. They report that he is increased his home oxygen from 4 L to 5 L. He reports his providers are aware of this. He was seen by his oncologist yesterday and had blood work ordered and they are looking into having CT imaging to assess his cancer. He was to have a chest x-ray today in preparation for follow-up with pulmonology. Denies any fevers. He denies any new cough or congestion. He denies any GI or symptoms. ROS: See above HPI for pertinent positives & negatives. A total of 10 systems reviewed and were otherwise negative. VITALS:See Below PHYSICAL EXAMINATION: GENERAL: Awake, alert, chronically ill-appearing, in no distress HENT: Normocephalic, atraumatic. Oropharynx unremarkable. EYES: Normal conjunctiva. Sclera non-icteric. NECK: Supple. No nuchal rigidity. FROM. No JVD. RESPIRATORY: Diminished present at the bases with intermittent wheezes. CARDIAC: Regular rate, normal rhythm. Extremities warm and well perfused. Pulses equal. ABDOMEN: Soft, non-distended. No tenderness to palpation. No rebound or guarding. No masses. MUSCULOSKELETAL: Chest examination reveals no tenderness. The back is symmetrical on inspection without obvious abnormality. There is no CVA tenderness to palpation. No joint edema. LOWER EXTREMITIES: Calves are equal size bilaterally and non-tender. 1+ BLE edema. No discoloration. NEURO: No focal sensory or motor deficits noted. SKIN: No rash or jaundice noted. 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 UTI (urinary tract infection) Pulmonary edema (Acute) Acute dyspnea (Acute) COPD exacerbation Acute on chronic respiratory failure with hypoxia (Acute) CHF exacerbation (Acute) Enterovirus infection (Acute) Antiplatelet or antithrombotic long-term use Recurrent UTI Hypospadias Right hydrocele Mild aortic stenosis Complicated UTI (urinary tract infection) Acute left-sided back pain (Acute) Hematuria (Acute) Restrictive lung disease Mild tricuspid regurgitation Mild mitral regurgitation Depression Hypersensitivity pneumonitis Valvular heart disease Chewing tobacco nicotine dependence Ex-smoker Allergic rhinitis with postnasal drip Abnormal chest CT COPD with emphysema COPD (chronic obstructive pulmonary disease) Chronic respiratory failure with hypoxia (Acute) Exertional dyspnea Multiple pulmonary nodules Vitamin D deficiency Hypoxemia Hypoxia (Acute) GERD (gastroesophageal reflux disease) Pulmonary nodule PAD (peripheral artery disease) Secondary hyperparathyroidism of renal origin Central venous catheter in place, permanent Hypercalcemia (Acute) Peripheral vascular disease MAEGAN (obstructive sleep apnea) Hypercholesteremia Neuropathy ESRD (end stage renal disease) Sinus bradycardia Liver mass (Acute) Medical History COPD (chronic obstructive pulmonary disease) Moderate mitral regurgitation Left ventricular systolic dysfunction Paroxysmal atrial fibrillation Chronic respiratory failure CKD (chronic kidney disease) HFrEF (heart failure with reduced ejection fraction) Chronic kidney disease, stage IV (severe) ILD (interstitial lung disease) Anemia Chronic anticoagulation Cardiomyopathy Metabolic acidosis Situational depression Severe protein-calorie malnutrition Left leg DVT Anorexia Weight loss Acute respiratory failure with hypoxia Gastroenteritis due to 2019-nCoV Pneumonia due to COVID-19 virus COVID-19 Pneumonia 3 YRS AGO Osteoarthritis Chronic back pain Hemodialysis patient LAST DIAYLSIS FEBRUARY 11, 2019. NEPHROLOGY HAS STOPPED DIAYLSIS FOR THE TIME. On anticoagulant therapy Sleep apnea NON-COMPLIANT Hearing deficit Deep vein thrombosis ~ Peripheral vascular disease Peripheral neuropathy Deep vein thrombosis Scrotal swelling Coronary artery disease Acute kidney injury Pneumonia ARF (acute renal failure) Metabolic acidosis Surgical History History of esophagogastroduodenoscopy (EGD) History of colonoscopy History of heart artery stent History of cardiac cath X1. FOLLOWS WITH DR JOYNER S/P femoral-femoral bypass surgery RIGHT LEG H/O vascular surgery REMOVAL OF DVT History of lumbar discectomy History of umbilical hernia repair Family History Mother FHx: lung cancer FHx: uterine cancer Other Allergy Cancer Diabetes Heart disease Lung cancer Lung disease Denies family history of Tuberculosis Emphysema of lung Asthma Social History Smoking Status: Former smoker Tobacco Type: Cigarettes packs per day: 1; Second Hand Exposure: No; Do You Dip or Chew Tobacco: No; Hx Alcohol Use: Yes Alcohol type: beer Hx Substance Use: No Preferred Language: Belarusian Communication Ability: Effective Tomographic Tech Required: No Beliefs That Will Affect Care: None Current Living Situation: Spouse Current Living Situation Comment: Andrew Feels Safe at Home: Yes Assistive Devices: Oxygen - Continuous and Walker Allergies Allergies Allergy/AdvReac Type Severity Reaction Status Date / Time No Known Allergies Allergy Verified 07/11/24 14:37 Home Meds Home Medications Medication Instructions Recorded Confirmed atorvastatin 80 mg tablet (Lipitor) 80 mg PO HS #0 tabs 12/21/14 07/17/24 finasteride 5 mg tablet 5 mg PO QAM 12/04/18 07/17/24 clopidogrel 75 mg tablet 75 mg PO QAM 09/15/21 07/17/24 Portable Oxygen 12/11/23 07/01/24 ipratropium 0.5 mg-albuterol 3 mg 3 ml inhalation DIRECTED PRN 06/10/24 07/17/24 (2.5 mg base)/3 mL nebulization Other soln sertraline 100 mg tablet 100 mg PO DAILY 06/10/24 07/17/24 B12 2,000 mcg PO DAILY 07/17/24 07/17/24 bumetanide 1 mg tablet 1 mg PO UD 07/17/24 07/17/24 mycophenolate mofetil 500 mg tablet 500 mg PO BID 07/17/24 07/17/24 oxycodone-acetaminophen 7.5 mg-325 1 tab PO DIRECTED PRN Pain 07/17/24 07/17/24 mg tablet (Endocet) pantoprazole 40 mg tablet,delayed 40 mg PO DAILY 07/17/24 07/17/24 release prednisone 10 mg tablet 10 mg PO BID 07/17/24 07/17/24 sulfamethoxazole 800 1 tab PO .SUN,SUN,Fridays07/17/24 07/17/24 mg-trimethoprim 160 mg tablet Previous Rx's Medication Instructions Recorded epoetin neptali 40,000 unit/mL 40,000 unit subcut .COMPLEX #1 mL 03/20/23 injection solution (Procrit) nebulizers (Aeroneb Go Nebulizer) #1 ea 09/19/23 apixaban 5 mg tablet (Eliquis) 5 mg PO BID #180 tabs 12/11/23 carvedilol 25 mg tablet 25 mg PO BID #180 tabs 04/21/24 Results & Data (ED) Vital Signs Vital Signs - 24 hr 07/17/24 09:47 07/17/24 10:12 07/17/24 10:30 Temperature 36.6 C Temperature Source Oral Pulse Rate 80 72 74 Respiratory Rate 20 25 H Respiratory Effort / Characteristics Non-Labored Spontaneous Respiratory Depth Normal Respiratory Pattern Regular Blood Pressure 100/54 L Blood Pressure Mean 69 Pulse Oximetry 85 L 95 Oxygen Delivery Method Nasal Cannula Nasal Cannula Oxygen Flow Rate 5 1 Sepsis Recent Fever Within 48 Hours No Sepsis New/Unexplained Change in Mental Status N/A Sepsis Action Taken by Nursing No Action Required Laboratory Data Attestation: I reviewed the patient's lab results. 07/17/24 10:18 07/17/24 10:18 Lab Results 07/17/24 07/17/24 07/17/24 Range/Units 10:00 10:18 11:21 WBC 9.64 (4.8-10.8) K/ul RBC 2.56 L (4.70-6.10) M/uL Hgb 8.0 L (14.0-18.0) g/dl Hct 27.3 L (42.0-52.0) % MCV 106.6 H (80.0-100.0) fL MCH 31.3 (25.0-34.0) pg MCHC 29.3 L (32.0-36.0) g/dL RDW Std Deviation 61.4 H (36.4-46.3) fL RDW Coeff of Xiomara 15.9 H (11.5-14.5) % Plt Count 233 (130-400) K/uL MPV 9.1 L (9.4-12.4) fL Immature Gran % (Auto) 1.3 % Neut % (Auto) 89.8 % Lymph % (Auto) 3.5 % Nobles % (Auto) 4.5 % Eos % (Auto) 0.6 % Baso % (Auto) 0.3 % Neut # (Auto) 8.65 H (1.40-6.50) K/uL Lymph # (Auto) 0.34 L (1.20-3.40) K/uL Nobles # (Auto) 0.43 (0.11-0.59) K/uL Eos # (Auto) 0.06 (0.00-0.50) K/uL Baso # (Auto) 0.03 (0.00-0.20) K/uL Immature Gran # (Auto) 0.13 (0.01-0.20) K/uL Absolute Nucleated RBC 0.02 (0.00-0.12) K/uL Nucleated RBC % (auto) 0.2 % PT 11.2 (9.0-12.0) Seconds INR 1.0 (0.9-1.1) VBG pH 7.29 L (7.36-7.41) VBG pCO2 59 H (38-50) mmHg VBG pO2 < 20 mmHg VBG HCO3 28 mmol/L VBG O2 Saturation < 60.0 % VBG Base Excess 1.5 mEq/L Sodium 142 (136-145) mmol/L Potassium 4.9 (3.5-5.1) mmol/L Chloride 106 (98-107) mmol/L Carbon Dioxide 30 (21-32) mmol/L Anion Gap 6 (3-11) BUN 40 H (6-23) mg/dl Creatinine 3.59 H (0.6-1.4) mg/dl Est Cr Clr Drug Dosing Not Reportable eGFR 16.52 BUN/Creatinine Ratio 11.1 (10-20) Glucose 134 H (70-99(Fasting)) mg/dl Calcium 8.8 (8.6-10.3) mg/dl Phosphorus 3.4 (2.5-4.9) mg/dl Magnesium 2.2 (1.7-2.4) mg/dl Total Bilirubin 0.3 (0.2-1.0) mg/dl AST 12 L (13-39) U/L ALT 12 (7-52) U/L Alkaline Phosphatase 79 (34-104) U/L Troponin I High Sens 27.8 H (0-20) pg/ml B-Natriuretic Peptide 617 H (0-100) pg/ml Total Protein 5.6 L (6.0-8.3) gm/dl Albumin 3.5 (3.4-5.0) gm/dl Globulin 2.1 L (2.5-4.0) gm/dl Albumin/Globulin Ratio 1.7 (0.9-2) Lipase 56 (11-82) U/L TSH 2.316 (0.300-4.500) uIu/ml Adenovirus (PCR) Not Detected (NotDetected) B. pertussis DNA (PCR) Not Detected (NotDetected) B.parapertussis DNA PCR Not Detected (NotDetected) C. pneumoniae DNA (PCR) Not Detected (NotDetected) Coronavirus OC43 (PCR) Not Detected (NotDetected) Coronavirus HKU1 (PCR) Not Detected (NotDetected) Coronavirus 229E (PCR) Not Detected (NotDetected) SARS-CoV-2 (PCR) Not Detected (NotDetected) Coronavirus NL63 (PCR) Not Detected (NotDetected) Human Metapneumovir PCR Not Detected (NotDetected) Influenza Type A (PCR) Not Detected (NotDetected) Influenza Type B (PCR) Not Detected (NotDetected) M. pneumoniae (PCR) Not Detected (NotDetected) Parainfluenza 1 (PCR) Not Detected (NotDetected) Parainfluenza 2 (PCR) Not Detected (NotDetected) Parainfluenza 3 (PCR) Not Detected (NotDetected) Parainfluenza 4 (PCR) Not Detected (NotDetected) RSV (PCR) Not Detected (NotDetected) Entero/Rhino (PCR) Not Detected (NotDetected) Administered Medications Albuterol (Albut/Ipratrop 3mg/0.5mg Neb 3 Ml Vial) 3 ml NEB Q6R GAURI; Protocol Stop: 08/16/24 12:59 Last Admin: 07/17/24 19:23 Dose: 3 ml Documented By: Admin: 07/17/24 12:31 Dose: 3 ml Documented By: SHASTA Apixaban (Apixaban 5 Mg Tablet) 5 mg PO BID GAURI Stop: 08/16/24 20:59 Last Admin: 07/17/24 21:51 Dose: 5 mg Documented By: YISEL Atorvastatin Calcium (Atorvastatin 40 Mg Tab) 80 mg PO HS GAURI Stop: 08/16/24 20:59 Last Admin: 07/17/24 21:51 Dose: 80 mg Documented By: YISEL Bumetanide 1 mg/ Syringe 4 mls @ 4 mls/min IV BID@0900,1700 GAURI Stop: 08/16/24 16:59 Last Admin: 07/17/24 17:11 Dose: 4 mls/min Documented By: [place]OR[place] Discontinued Medications Albuterol (Albut/Ipratrop 3mg/0.5mg Neb 3 Ml Vial) 3 ml NEB NOW STA; Protocol Stop: 07/17/24 11:08 Last Admin: 07/17/24 11:21 Dose: 3 ml Documented By: SAMI Bumetanide 1 mg/ Syringe 4 mls @ 4 mls/min IV ONE ONE Stop: 07/17/24 11:08 Last Admin: 07/17/24 13:04 Dose: 4 mls/min Documented By: SAMI Imaging Data Radiologist's Impression: Chest X-Ray 07/17/24 09:56 XR chest 1V portable HISTORY: 79 years-old Male Chest pain, nonspecific COMPARISON: 06/10/2024 TECHNIQUE: AP view of the chest FINDINGS: Cardiac silhouette is enlarged. Hypoinflation with bronchovascular crowding. Left IJ Wxowwy-[id number] catheter is unchanged. Pulmonary vascular congestion. No pneumothorax or airspace consolidation. Trace pleural effusions. IMPRESSION: 1. Hypoinflation. 2. Cardiomegaly with pulmonary vascular congestion and trace pleural effusions. ACT 112: Negative or not required by law. The above report was generated using voice recognition software. It may contain grammatical, syntax or spelling errors. Electronically signed by: Usama Villarreal M.D. 07/17/2024 11:08 AM Discharge Plan Visit Data Chief Complaint: Shortness of Breath/Dyspnea Stated Complaint: SOB ED Provider: Guy Poon Discharge Problem: Acute on chronic respiratory failure with hypoxia, CHF exacerbation, COPD (chronic obstructive pulmonary disease) Patient Disposition: Admitted As Inpatient Discharge Instructions Interventions: ED Discharge Assessment Last Done: 07/17/24 14:27 Discharge Problem: CHF exacerbation Qualifiers: Heart failure type: unspecified Qualified Code(s): I50.9 - Heart failure, unspecified COPD (chronic obstructive pulmonary disease) Qualifiers: COPD type: unspecified COPD Qualified Code(s): J44.9 - Chronic obstructive pulmonary disease, unspecified
[2024-07-17 10:43] LABS: Basophils # (auto) 0.03 K/uL (0.00-0.20); Basophils % (auto) 0.3 %; Eosinophils # (auto) 0.06 K/uL (0.00-0.50); Eosinophils % (auto) 0.6 %; Hematocrit (blood only) 27.3 % (42.0-52.0); Immature Granulocytes # (auto) 0.13 K/uL (0.01-0.20); Immature Granulocytes % (auto) 1.3 %; Lymphocytes # (auto) 0.34 K/uL (1.20-3.40); Lymphocytes % (auto) 3.5 %; Mean Corpuscular Hemoglobin 31.3 pg (25.0-34.0); Mean Corpuscular Hgb Conc 29.3 g/dL (32.0-36.0); Mean Corpuscular Volume 106.6 fL (80.0-100.0); Mean Platelet Volume 9.1 fL (9.4-12.4); Monocytes # (auto) 0.43 K/uL (0.11-0.59); Monocytes % (auto) 4.5 %; Neutrophils # (auto) 8.65 K/uL (1.40-6.50); Neutrophils % (auto) 89.8 %; Nucleated RBC # (auto) 0.02 K/uL (0.00-0.12); Nucleated RBC % (auto) 0.2 %; Platelet Count 233 K/uL (130-400); RDW Coefficient of Variation 15.9 % (11.5-14.5); RDW Standard Deviation 61.4 fL (36.4-46.3); Red Blood Count 2.56 M/uL (4.70-6.10); White Blood Count 9.64 K/ul (4.8-10.8)
[2024-07-17 10:57] LABS: Alanine Aminotransferase 12 U/L (7-52); Albumin Globulin Ratio 1.7 (0.9-2); Albumin Level 3.5 gm/dl (3.4-5.0); Alkaline Phosphatase 79 U/L (34-104); Anion Gap 6 (3-11); Aspartate Aminotransferase 12 U/L (13-39); BUN Creatinine Ratio 11.1 (10-20); Bilirubin,Total 0.3 mg/dl (0.2-1.0); Blood Urea Nitrogen 40 mg/dl (6-23); Calcium 8.8 mg/dl (8.6-10.3); Carbon Dioxide 30 mmol/L (21-32); Chloride 106 mmol/L (98-107); Globulin 2.1 gm/dl (2.5-4.0); Glucose 134 mg/dl (70-99(Fasting)); Lipase 56 U/L (11-82); Magnesium 2.2 mg/dl (1.7-2.4); Phosphorus 3.4 mg/dl (2.5-4.9); Potassium 4.9 mmol/L (3.5-5.1); Sodium 142 mmol/L (136-145); Total Protein 5.6 gm/dl (6.0-8.3)
[2024-07-17 10:58] LABS: Troponin I High Sensitivity 27.8 pg/ml (0-20)
[2024-07-17 11:01] LABS: Prothrombin Time 11.2 Seconds (9.0-12.0)
[2024-07-17 11:08] LABS: Thyroid Stimulating Hormone 2.316 uIu/ml (0.300-4.500)
--- NOTE | 2024-07-17 11:09 | XRay Report ---
XR chest 1V portable HISTORY: 79 years-old Male Chest pain, nonspecific COMPARISON: 06/10/2024 TECHNIQUE: AP view of the chest FINDINGS: Cardiac silhouette is enlarged. Hypoinflation with bronchovascular crowding. Left IJ [id number] ca theter is unchanged. Pulmonary vascular congestion. No pneumothorax or airspace consolidation. Trace pleural effusions. IMPRESSION: 1. Hypoinflation. 2. Cardiomegaly with pulmonary vascular congestion and trace pleural effusions. ACT 112: Negative or not required by law. The above report was generated using voice recognition software. It may contain grammatical, syntax o r spelling errors. Electronically signed by: Usama Villarreal M.D. 07/17/2024 11:08 AM
[2024-07-17 11:13] LABS: Adenovirus PCR Not Detected (NotDetected); Bordetella parapertussis PCR Not Detected (NotDetected); Bordetella pertussis PCR Not Detected (NotDetected); Chlamydia pneumoniae PCR Not Detected (NotDetected); Coronavirus 229E PCR Not Detected (NotDetected); Coronavirus CoV-2 (COVID19)PCR Not Detected (NotDetected); Coronavirus HKU1 PCR Not Detected (NotDetected); Coronavirus NL63 PCR Not Detected (NotDetected); Coronavirus OC43PCR Not Detected (NotDetected); Human Metapneumovirus PCR Not Detected (NotDetected); Influenza A PCR Not Detected (NotDetected); Influenza B PCR Not Detected (NotDetected); Mycoplasma pneumoniae PCR Not Detected (NotDetected); Parainfluenza Virus 1 PCR Not Detected (NotDetected); Parainfluenza Virus 2 PCR Not Detected (NotDetected); Parainfluenza Virus 3 PCR Not Detected (NotDetected); Parainfluenza Virus 4 PCR Not Detected (NotDetected); Respiratory Syncytial VirusPCR Not Detected (NotDetected); Rhinovirus/Enterovirus PCR Not Detected (NotDetected)
[2024-07-17] MEDS: ALBUT/IPRATROP 3MG/0.5MG NEB 3 ML VIAL NEB STA (11:21)
--- NOTE | 2024-07-17 11:34 | Electrocardiogram Report ---
Test Reason : Blood Pressure : */* mmHG Vent. Rate : 69 BPM Atrial Rate : 69 BPM P-R Int : 192 ms QRS Dur : 88 ms QT Int : 408 ms P-R-T Axes : 50 -1 76 degrees QTcB Int : 437 ms Sinus rhythm with occasional Premature ventricular complexes Left ventricular hypertrophy with repolarization abnormality ( R in aVL ) Abnormal ECG When compared with ECG of 10-Jun-2024 13:24, No significant change was found Confirmed by Earl Manuel ([id number]) on 07/17/2024 11:34:15 AM Referred By: REFERRED SELF Confirmed By: Earl Manuel
[2024-07-17] MEDS ORDERED: ACETAMINOPHEN 325 MG TAB PO PRN (11:52)
[2024-07-17] MEDS ORDERED: ALBUTEROL 0.083% NEBU SOLN 3 ML VIAL NEB PRN (11:54)
[2024-07-17 12:05] LABS: Base Excess VBG 1.5 mEq/L; HCO3 VBG 28 mmol/L; Oxygen Saturation VBG < 60.0 %; PCO2 VBG 59 mmHg (38-50); PO2 VBG < 20 mmHg; pH VBG 7.29 (7.36-7.41)
--- NOTE | 2024-07-17 12:13 | History & Physical Report ---
Date of Service July 17, 2024 Assessment & Plan (1) CHF exacerbation: Plan: Assessment: 1. Acute on chronic hypoxemic respiratory failure. Patient is typically on 4 L. Recently increased to 5. This is multifactorial as discussed below. 2. Acute decompensated systolic congestive heart failure/congestive heart failure with reduced ejection fraction. EF in April of this year was 40%. IV Bumex twice daily 1 mg. Fluid restriction. 3. Elevated troponin with a history of chronic troponinemia. Will do serial troponins. He has no chest symptoms at this time. 4. History of DVT in the right lower extremity. On chronic Eliquis therapy he has been compliant with this and has not missed any doses. 5. Anemia of chronic disease due to advanced kidney disease. 6. CKD stage IV no protein 5. Monitor renal function carefully with diuresis. We may need nephrology consultations for consideration of hemodialysis for volume control if he does not respond appropriately with IV diuresis. 7. Deconditioning and generalized weakness. Multifactorial. Typically ambulates with a walker at home. Had a fall 2 to 3 weeks ago. No sequelae from that. Physical therapy is consulted. Falls precautions ordered. 8. History of coronary disease status post PCI with stenting in the past. 9. History of PAD status post multiple right lower extremity procedures. 10. History of lymphoma with pulmonary nodules. Patient following with both oncology and pulmonology. Will do a noncontrast CT of the chest. Per the family oncology was contemplating do an outpatient CT of the chest to monitor for possible lymphoma return. 11. Stable. History of COPD. I do not appreciate any yessi exacerbation of vasospasm at this point. Will continue nebulizers. 12. GERD. 13. History of obstructive sleep apnea. Does not use CPAP or BiPAP does use oxygen continuously. Plan: As discussed above. IV diuresis. Monitor renal function carefully. Fluid restriction. Echocardiogram was done in April of this year I will not repeat. Will do serial troponins. PT consultations. Fall risk protocol. Please refer to orders for further planning. History of Present Illness Chief Complaint: Shortness of breath and weakness Primary Care Provider: Vinod Pang This is a 79-year-old male who was recently hospitalized approximately a month ago for increasing shortness of breath. He was diuresed at that time and sent home. Over the last 2 weeks she has had increasing shortness of breath and weakness. His oxygen was titrated by his primary care physician per the patient and family from 4 L to 5 L approximately 2 weeks ago. Today his breathing and weakness was to the degree where he was having trouble getting around at home and therefore was brought to the ER for further evaluation and treatment. Laboratory studies were significant for anemia which is chronic he is on Procrit. This is anemia of chronic disease hemoglobin stable at 8.0. CKD was identified with creatinine approximately 3.5. Chest x-ray was positive for pulmonary vascular congestion/CHF. Troponin was found to be mildly elevated at 27.8 however review of the medical records demonstrates this patient has a chronic troponinemia ranging from 20-40. Patient course in the ER he received nebulizer treatments and a milligram of IV Bumex. We are called admit the patient for further evaluation and treatment for decompensated CHF and acute on chronic hypoxemic respiratory failure. Allergies Allergy/AdvReac Type Severity Reaction Status Date / Time No Known Allergies Allergy Verified 07/11/24 14:37 Home Medications Medication Instructions Recorded Confirmed Type atorvastatin 80 mg tablet (Lipitor) 80 mg PO HS #0 tabs 12/21/14 07/17/24 History finasteride 5 mg tablet 5 mg PO QAM 12/04/18 07/17/24 History clopidogrel 75 mg tablet 75 mg PO QAM 09/15/21 07/17/24 History epoetin neptali 40,000 unit/mL 40,000 unit subcut .COMPLEX #1 mL 03/20/23 07/17/24 Rx injection solution (Procrit) nebulizers (Aeroneb Go Nebulizer) #1 ea 09/19/23 07/01/24 Rx Portable Oxygen 12/11/23 07/01/24 History apixaban 5 mg tablet (Eliquis) 5 mg PO BID #180 tabs 12/11/23 07/17/24 Rx carvedilol 25 mg tablet 25 mg PO BID #180 tabs 04/21/24 07/17/24 Rx ipratropium 0.5 mg-albuterol 3 mg 3 ml inhalation DIRECTED PRN 06/10/24 07/17/24 History (2.5 mg base)/3 mL nebulization Other soln sertraline 100 mg tablet 100 mg PO DAILY 06/10/24 07/17/24 History B12 2,000 mcg PO DAILY 07/17/24 07/17/24 History bumetanide 1 mg tablet 1 mg PO UD 07/17/24 07/17/24 History mycophenolate mofetil 500 mg tablet 500 mg PO BID 07/17/24 07/17/24 History oxycodone-acetaminophen 7.5 mg-325 1 tab PO DIRECTED PRN Pain 07/17/24 07/17/24 History mg tablet (Endocet) pantoprazole 40 mg tablet,delayed 40 mg PO DAILY 07/17/24 07/17/24 History release prednisone 10 mg tablet 10 mg PO BID 07/17/24 07/17/24 History sulfamethoxazole 800 1 tab PO .SUN,SUN,Fridays07/17/24 07/17/24 History mg-trimethoprim 160 mg tablet Past Med/Surg History Problem List (Updated 07/06/24 @ 00:09 by Background Kim) Acute kidney injury Dyspnea on minimal exertion (Acute) 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 UTI (urinary tract infection) Pulmonary edema (Acute) Acute dyspnea (Acute) COPD exacerbation Acute on chronic respiratory failure with hypoxia CHF exacerbation Enterovirus infection (Acute) Antiplatelet or antithrombotic long-term use Recurrent UTI Hypospadias Right hydrocele Mild aortic stenosis Complicated UTI (urinary tract infection) Acute left-sided back pain (Acute) Hematuria (Acute) Restrictive lung disease Mild tricuspid regurgitation Mild mitral regurgitation Depression Hypersensitivity pneumonitis Valvular heart disease Chewing tobacco nicotine dependence Ex-smoker Allergic rhinitis with postnasal drip Abnormal chest CT COPD with emphysema COPD (chronic obstructive pulmonary disease) Chronic respiratory failure with hypoxia (Acute) Exertional dyspnea Multiple pulmonary nodules Vitamin D deficiency Hypoxemia Hypoxia (Acute) GERD (gastroesophageal reflux disease) Pulmonary nodule PAD (peripheral artery disease) Secondary hyperparathyroidism of renal origin Central venous catheter in place, permanent Hypercalcemia (Acute) Peripheral vascular disease MAEGAN (obstructive sleep apnea) Hypercholesteremia Neuropathy ESRD (end stage renal disease) Sinus bradycardia Liver mass (Acute) Medical History Chronic anticoagulation Cardiomyopathy HTN (hypertension) Metabolic acidosis [id number] kidney injury Situational depression Severe protein-calorie malnutrition Left leg DVT Anorexia Weight loss Acute respiratory failure with hypoxia Gastroenteritis due to 2019-nCoV Pneumonia due to COVID-19 virus COVID-19 Hyperkalemia Pneumonia Osteoarthritis Chronic back pain Hemodialysis patient On anticoagulant therapy Sleep apnea Hearing deficit Deep vein thrombosis Peripheral vascular disease Peripheral neuropathy Deep vein thrombosis Scrotal swelling Coronary artery disease Acute kidney injury Pneumonia ARF (acute renal failure) Metabolic acidosis Surgical History History of esophagogastroduodenoscopy (EGD) History of colonoscopy History of heart artery stent History of cardiac cath S/P femoral-femoral bypass surgery H/O vascular surgery History of lumbar discectomy History of umbilical hernia repair Family History Mother FHx: lung cancer FHx: uterine cancer Other Allergy Cancer Diabetes Heart disease Lung cancer Lung disease Denies family history of Tuberculosis Emphysema of lung Asthma Social History Smoking Status: Former smoker Tobacco Type: Cigarettes packs per day: 1; Second Hand Exposure: No; Do You Dip or Chew Tobacco: No; Hx Alcohol Use: Yes Alcohol type: beer Hx Substance Use: No Preferred Language: Sami Communication Ability: Effective Seo Consultant Required: No Beliefs That Will Affect Care: None Current Living Situation: Spouse Current Living Situation Comment: -Sandra Feels Safe at Home: Yes Assistive Devices: Oxygen - Continuous and Walker Review of Systems Review of Systems: A 10 point review of system was obtained and unless otherwise stated here or in history of present illness are negative and noncontributory to chief complaint. Physical Exam Physical Exam: In general: This is a very pleasant 79-year-old male who is alert and oriented x 3 at the time of my exam he is accompanied by his daughter and his at the time of my examination. His only complaint is breathlessness as well as increased generalized weakness as discussed in history of present illness. He does have some mild conversational dyspnea approximately 5 words at a time. But he is in good humor. He is telling me jokes at the bedside. No severe distress whatsoever. HEENT: Normocephalic atraumatic pupils are equal round and reactive to light bilaterally. No scleral icterus no conjunctival injection external auditory canals are patent septum is in the midline nose is without discharge oral mucosa is pink and moist without lesion. NECK: Supple no rigidity no lymphadenopathy no thyromegaly no carotid bruits no masses, positive JVD. HEART: Regular rate and rhythm I do not appreciate any ectopy or rub. No murmur. LUNGS: Lungs are diminished bilaterally with fine cardiac growth bilaterally. No rhonchi. Occasional expiratory wheezing. ABDOMEN: Soft nontender, no rebound, no peritoneal signs, positive bowel sounds, no appreciable organomegaly. EXTREMITIES: Intact, no peripheral cyanosis, clubbing. Patient has 2+ pitting edema in the right lower extremity compared to trace to 1+ in the left lower extremity. This is chronic and she has had vein surgery in the right lower extremity in the past. NEUROLOGICAL: Cranial nerves II through XII are grossly intact with no focal deficit elicited upon examination. No tremor. Results & Data Results & Data Vital Signs (Past 12 Hours) Vital Signs Temp Pulse Resp BP Pulse Ox O2 Del Method O2 Flow Rate 07/17/24 10:30 74 25 H 95 Nasal Cannula 1 07/17/24 09:47 36.6 C 80 20 100/54 L 85 L Nasal Cannula 5 Code Status & VTE Plan Code Status Full code. I personally discussed with patient and family at the bedside. VTE Prophylaxis Plan VTE Prophylaxis will be ordered: Yes PG Care Time/CCT Total # of Minutes Spent Total Time Spent with Patient: Total time spent is greater than 50% in coordination of care (as documented) at patient's floor/unit and/or counseling patient: Coding Level of Care Code 23464 INT INP/OBS CARE 3/75MIN Diagnoses CHF exacerbation I50.9
[2024-07-17] MEDS: ALBUT/IPRATROP 3MG/0.5MG NEB 3 ML VIAL NEB SCH (12:31)
[2024-07-17] MEDS: BUMETANIDE 1 MG in SYRINGE 0 ML IV ONE (13:04)
[2024-07-17] MEDS ORDERED: oxyCODONE HCL IR 5 MG TAB (IMMEDIATE RELEASE) PO PRN (15:17)
--- NOTE | 2024-07-17 16:39 | CT Scan Report ---
CT chest diagnostic wo con CT DOSE: 705.73 mGy.cm CLINICAL HISTORY: 79 years-old Male with SOB, Hx lymphoma. Acute shortness of breath TECHNIQUE: Multiaxial CT images of the chest were performed without contrast. A dose lowering techni que was utilized adhering to the principles of ALARA. COMPARISON: Chest CT 10/10/2023, May 15, 2022. FINDINGS: Unremarkable thyroid. No pathologically enlarged lymph nodes. Moderate cardiomegaly without pericardial effusion. Extensive coronary artery calcifications. Atherosclerosis of the thoracic aort a without aneurysm. Mild dilation of the pulmonary artery measuring up to 3.2 cm may represent pulmon silvano arterial hypertension. There is no pneumothorax, pleural effusion or airspace consolidation typical for pneumonia. Bilateral mosaic attenuation with intermixed ground-glass densities and subpleural predominant multilobar subp leural reticulation. Mild bibasilar prominent bronchiectasis with mild biapical subpleural cystic ronald nge. No significant basilar honeycombing. There are several scattered mostly subpleural solid nodules measuring up to 3 mm, which are likely benign. Stable 4 mm solid nodule of the right lung apex on im age 53 series 4, which is of low clinical suspicion. Subpleural spiculated and irregular solid nodule of the left upper lobe on image 72 series 4 measures 10 x 9 mm. This nodule measured 1.5 x 1.1 cm on the 2021 comparison. Calcified granuloma of the lingula. Stable 5 mm nodule of the lingula, image 11 9. No acute upper abdominal abnormality. Unchanged 5 cm calcified focus of the hepatic dome. Severe frac ture T5 with 4 mm retropulsion. Minimal paravertebral edema. This is new from prior. IMPRESSION: 1. T5 burst fracture with mild retropulsion resulting in minimal central canal stenosis is new from , likely acute or subacute. 2. Unchanged appearance of the chronic interstitial lung disease. 3. No pleural effusion or airspace consolidation typical for pneumonia. 4. Stable 10 mm subpleural left upper lobe nodule which has decreased in size from the 2021 study. 5.Additional scattered subcentimeter solid pulmonary nodules are stable and likely benign measuring u p to 5 mm. ACT 112: Negative or not required by law. Electronically signed by: Usama Villarreal M.D. 07/17/2024 4:38 PM
[2024-07-17] MEDS: BUMETANIDE 1 MG in SYRINGE 0 ML IV SCH (17:11)
--- OUTSIDE RECORDS SUMMARY | 2024-07-17 20:07 | External Medical Summary | Continuity of Care Document ---
Author Name Unknown Organization [facility] Address [address] [place] [address], [place] [address] Phone [phone] Care Team Providers Care Coin Collector Name Role Phone Gastroenterology - Gastroenterology Care Team In formation Avionics Electronics Technician Unavailable Fermín Quick MD Care Team Information Receiv er [phone] Rory Hodge Care Team Information Avionics Electronics Technician [phone] Nixon Aden MD Care Team Information Avionics Electronics Technician + [phone] Abran Avalos Interven tional Pain Medicine Care Team Information Avionics Electronics Technician [phone] Medardo Trinidad MD Care Team Information Receive r [phone] Sinan Marks MD Care Team Information Receive r [phone] Problems Active Problems Provider Date Chronic kidney [...] Pang JR DO On set: 09/01/2015 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 Coordinating Producer (Cu rrent) Use Encounter Vinod Pang JR [...] Onset: 04/11/2023 Extrinsic allergic alveolitis Vinod Pang JR DO Onset: 04/11/2023 Hyperparathyroidism due to r enal insufficiency Vinod Pang JR DO Onset: 04/11/2023 Paroxysmal atrial fibrillation Vinod Pang JR DO Onset: 01/22/2024 Chronic kidney disease stage 5 Vinod Pang JR DO Onset: 01/22/2024 Social History Type Date Description Comments Sex Unknown Tobacco Use Reviewed: 06/16/24 Never Smoked Cigarette s Tobacco Use Reviewed: 06/16/24 Never Smoked Cigars Tobacco Use Reviewed: 06/16/24 Never Smoked A Pipe Smoking Status Reviewed: 06/16/24 Never Smoked A Pipe Smokeless Tobacco 06/16/2024 Current Smokel ess Tobacco User, Uses 9 Times Daily ETOH Use Denies alcohol use Recreational Drug Use Denies Drug Use Allergies and adverse reactions Description No Known Drug Allergies Medications Active Medications SIG Qnty Indications Order ing Provider Date OxygenMisc Use portable oxygen tank at 5L O2 NC at rest 1units R09.02 Rodriguez Steven MD 06/16/2024 Cyclobenzaprine HCL5mg Tablets take 1-2 by mouth twice a day, as needed for pain. 14tabs T14.8xxD Rodriguez Steven MD 06/16/2024 OxygenMisc Portable tank. 3 liters continuous via NC. 1units Vinod Pang JR, DO 06/13/2024 Fawdqney916wk Tablets 1 tab by mouth twice a day Unknown 02/28/2024 Sertraline LZN090wj Tablets 1 by mouth every day 90tabs F33.1 Vinod Pang JR, DO 02/25/2024 Chbmego70823Kayf/ML Solution 40,000 units monthly per nephrology Unknown 11/27/2023 Clopidogrel Lqxiqkbor39xg Tablets take one (1) tablet by mouth every day 30tabs I73.9 Vinod Pang JR, DO 08/24/2021 Sscojxlgsua9ht Tablets take one tablet by mouth once daily 30tabs Vinod Pang JR, DO 11/12/2017 Oxycodone-Acetaminophen 7.5-325mg Tablets take one tablet every 6 h as needed pain--ongoing therapy 60tabs Vinod Pang JR, DO 01/22/2014 Atorvastatin Msyxbwm28xv Tablets take one tablet by mouth at bedtime 90tabs E78.0 Vinod Pang JR, DO E78.00 Sulfamethoxazole/Trimethopri m KS658-202vz Tablets Mon/Sun/Sun Unknown [address] 1 PO every day Unknown OxygenMisc 4 liters at night Unknown 0 Ibsuejb4rh Tablets 1 by mouth twice a day 60tabs Vinod Pang JR, DO Qpkkgpzxox96wu Tablets 1 tab bid Unknown Xzdipupsqn0hu Tablets 1 PO daily Unknown Kpcmlarctt76vc Tablets 1 by mouth twice a day 180tab s Unknown History Medications Sertraline FOI24wq Tablets 1 1/2 by mouth every day 135tabs F33.1 Vinod Pang JR, DO 01/22/2024 - 02/25/2024 Medications Administered in Office Medication SIG Qnty Indications Ordering Provider Date Inj, methylpred acetate 1 mgInjection Rodriguez Steven MD 05/27/2024 Injection Methylprednisolone Acetate 20 MGInjection Pierre Costa PA-C 08/06/2023 Rocephin Inj 250 MGInjection E pilar Mcbride MD 09/01/2020 Injection Methylprednisolone Acetate 20 MGInjection Jordan Tao 11/16/2017 Rocephin Inj 250 MGInjection Vinod Pang JR, DO 02/15/2010 Influ A (H1N1) VaccineInjection Vinod Pang JR, DO 10/21/2009 Immunizations CPT Code Status Date Vaccine Lot # [id number] Given 07/08/2024 Influenza Vac, Split, Preservative Free High Dose Age 65 & > [id number] U-FLU Given 07/17/2023 Influenza,Unspecified 90213 Given 07/17/2023 Influenza Vaccine High Do se 0.5ML Age 65 & > [id number] 30110 Given 10/04/2022 Influenza Vaccine High Do se 0.5ML Age 65 & > [id number] U-FLU Given 10/04/2022 Influenza,Unspecified U-FLU Given 08/11/2020 Influenza,Unspecified 24101 Given 08/11/2020 Influenza Vacci ne-Administered at another facility 57395 Given 08/23/2019 Influenza Vacci ne-Administered at another facility U-FLU Given 08/23/2019 Influenza,Unspecified 59552 Given 07/11/2018 Influenza Vac, Split, Preservative Free High Dose Age 65 & > [id number] 22585 Given 10/02/2017 Influenza Vac, Split, Preservative Free High Dose Age 65 & > [id number] Given 10/02/2017 Pneumococcal Conjugate-Pr evnar 13 79630 Given 08/14/2016 Influenza Virus Vaccine, Quadrivalent, Im Use [id number] 55020 Given 09/01/2015 Influenza Vac, Split, Preservative Free High Dose Age 65 & > [id number] 18497 Given 09/01/2015 Pneumococcal Conjugate-Pr evnar 13 [id number] 26565 Given 07/21/2014 Influenza Vac, Split, Preservative Free High Dose Age 65 & > [id number] U-FLU Given 07/21/2014 Influenza,Unspecified 15732 Given 01/31/2014 Pneumococcal Vaccine/Pneu movax 23 24541 Given 07/17/2013 Influenza Vac, Split, Preservative Free High Dose Age 65 & > [id number] 14293 Given 07/24/2012 Influenza Vac, Split, Preservative Free High Dose Age 65 & > [id number] 03797 Given 07/04/2011 Influenza Vac, Split, Preservative Free High Dose Age 65 & > [id number] 85005 Given 08/16/2010 Pneumococcal Vaccine/Pneu movax 23 [id number] 34765 Given 10/21/2009 Influenza Vac, Split 6 Mo nths And Older [id number] 24005 Given 07/24/2008 Influenza Vac, Split 6 Mo nths And Older U-FLU Given 07/22/2008 Influenza,Unspecified 57379 Given 10/27/2004 Influenza Vac, Split 6 Mo nths And Older 84942 Given 07/22/2004 Pneumococcal Vaccine/Pneu movax 23 [id number] Refused 05/27/2024 Sarscov2 Vaccin e 50 mcg/0.5 ML For Im Use 12 Yrs And Older 12962 Refused 10/19/2023 Sarscov2 Vaccin e 50 mcg/0.5 ML For Im Use 12 Yrs And Older 30997 Refused 04/11/2023 Moderna Sars-Co v-2 (Cov-19) vacc,100 mcg/ 0.5 mL 12Y+EMR Doc Only [id number] Refused 04/11/2023 Shingrix [id number] Refused 07/26/2021 Moderna Sars-Co v-2 (Cov-19) vacc,100 mcg/ 0.5 mL 12Y+EMR Doc Only 82523 Refused 09/28/2020 Shingrix 59573 Refused 09/28/2020 Tdap (Tetanus, diphtheria & acel. pertussis) Adacel or Boostrix 72410 Refused 08/19/2020 Influenza Virus Vaccine, Quadrivalent, Im Use 70482 Refused 07/11/2016 Influenza Vac, Split, Preservative Free High Dose Age 65 & > Vital Signs Date Vital Result Comment 07/08/2024 9:38am Body Temperature 98.6 F 06/16/2024 2:46pm BP Systolic 152 mmHg BP Diastolic 60 mmHg Body Temperature 96.9 F Heart Rate 66 /min Respiratory Rate 22 /min Results Test Acquired Date Facility Test Result H/L Range Note BMP 06/16/2024 [facility] [address] [place] [address] [phone] Glucose 117 mg/dL High 70-110 BUN 66 mg/dL Critical high 6-25 1 Creatinine 3.0 mg/dL High 0.7-1.3 Sodium 143 mEq/L 135-145 Potassium 4.6 mEq/L 3.5-5.0 Chloride 103 mEq/L 95-107 Co-2 25 mEq/L 24-31 Calcium 9.2 mg/dL 8.5-10.6 GFR 22 ML/MIN/1. 73SQM Low >60 Microalbumin Urine 05/13/2024 [facility] [address] [place] [address] [phone] Urine Creat 75 mg/dL Comment Microalbumin 17.7 mg/dL High 0.0-1.8 2 ug/mgCREATININE 236 ug/mg High 0-29 Comp. Met 05/13/2024 [facility] [address] [place], [place] [id number] Glucose 103 mg/dL 70-110 BUN 62 mg/dL Critical high 6-25 3 Creatinine 3.3 mg/dL Critical high 0.7-1.3 Sodium 143 mEq/L 135-145 Potassium 4.6 mEq/L 3.5-5.0 Chloride 104 mEq/L 95-107 Co-2 23 mEq/L Low 24-31 Alk Phos 38 IU/L Low 43-122 Alt(SGPT) 28 IU/L 10-40 Ast(Sgot) 18 IU/L 3-42 T.Bilirubin 0.5 mg/dL 0.1-1.3 Calcium 8.6 mg/dL 8.5-10.6 Tot.Protein 5.4 g/dL Low 5.8-8.0 Albumin 3.7 g/dL 3.0-5.2 Globulin 1.7 g/dL Low 2.0-3.4 GFR 19 ML/MIN/1. 73SQM Low >60 Lipid 05/13/2024 [facility] [address] [place] [address] Cholesterol 170 mg/dL 0-200 4 Triglyceride 145 mg/dL 0-150 5 HDLD 58 mg/dL See Comment 6 Measured LDL 84 mg/dL 0-130 7 Calc VLDL 29.0 mg/dL See Comment 8 Chol/HDL 2.9 RATIO See Comment 9 Non-HDL 112 mg/dL See Comment 10 Laboratory test finding 05/13/2024 [facility] [address] [place] [address] TSH 2.62 uIU/mL 0.50-6.00 FRT4 0.90 ng/dL 0.75-1.54 Hba1c 05/13/2024 [facility] [address] [place] [address] [phone] A1c 5.90 % 4.70-6.50 11 CBC No Diff 05/13/2024 [facility] [address] [place] [address] [phone] WBC 9.4 10^3/M3 High 3.1-9.2 RBC 3.27 10^6/M3 Low 4.00-5.80 HGB 11.1 GR/DL Low 12.5-17.5 HCT 33.6 % Low 37.5-52.5 MCV 102.7 CUMICR High 82.6-95.8 MCH 34.0 PICOGR High 27.9-32.9 MCHC 33.1 % 32.6-35.4 RDW 16.0 % High 11.4-14.6 PLT 196 10^3/M3 140-350 MPV 7.7 CUMICR 7.0-10.6 Manual Diff 05/13/2024 [facility] [address] [place] [address] Seg 85 High 45-75 Lymph 7 Low 20-45 Donley 7 0-10 Eosin 1 0-6 Baso 0 0-2 Laboratory test finding 04/18/2024 [facility] [address] [place] [address] HGB 12.7 GR/DL 12.5-17.5 12 HCT 37.6 % 37.5-52.5 BMP 04/11/2024 [facility] [address] [place], [place] [id number] Glucose 133 mg/dL High 70-110 BUN 63 mg/dL Critical high 6-25 13 Creatinine 3.3 mg/dL Critical high 0.7-1.3 Sodium 143 mEq/L 135-145 Potassium 4.7 mEq/L 3.5-5.0 Chloride 103 mEq/L 95-107 Co-2 26 mEq/L 24-31 Calcium 9.3 mg/dL 8.5-10.6 GFR 19 ML/MIN/1. 73SQM Low >60 Laboratory test finding 04/04/2024 [facility] (In Office Test) HGB Fingerstick 11.4 Laboratory test finding 03/19/2024 [facility] [address] [place] [address] HCT 32.7 % Low 37.5-52.5 HGB 11.0 GR/DL Low 12.5-17.5 CBC W/Diff 03/01/2024 [facility] [address] [place] [address] WBC 5.3 10^3/M3 3.1-9.2 14 RBC 2.86 10^6/M3 Low 4.00-5.80 HGB 9.8 GR/DL Low 12.5-17.5 HCT 29.5 % Low 37.5-52.5 MCV 103.1 CUMICR High 82.6-95.8 MCH 34.4 PICOGR High 27.9-32.9 MCHC 33.3 % 32.6-35.4 RDW 19.6 % High 11.4-14.6 PLT 175 10^3/M3 140-350 MPV 7.3 CUMICR 7.0-10.6 %Neut 79.6 % High 40.0-75.0 %Lymph 11.2 % Low 17.0-45.0 %Donley 7.5 % 1.0-11.0 %Eos 1.0 % 0.0-6.0 %Baso 0.7 % 0.0-2.0 #Neut 4.3 10^3/M3 1.5-8.0 #Lymph 0.6 10^3/M3 Low 0.8-3.2 #Donley 0.4 10^3/M3 0.0-0.8 #Eos 0.1 10^3/m3 0.0-0.4 #Baso 0.0 10^3/m3 0.0-0.2 Aniso 2+ Hepatic 03/01/2024 [facility] [address] [place] [address] Alk Phos 47 IU/L 43-122 15 Alt(SGPT) 32 IU/L 10-40 Ast(Sgot) 16 IU/L 3-42 T.Bilirubin 0.3 mg/dL 0.1-1.3 D.Bilirubin 0.1 mg/dL 0.0-0.3 Tot.Protein 5.1 g/dL Low 5.8-8.0 Albumin 3.5 g/dL 3.0-5.2 BMP 03/01/2024 [facility] [address] [place] [address] Glucose 129 mg/dL High 70-110 BUN 50 mg/dL High 6-25 Creatinine 3.6 mg/dL Critical high 0.7-1.3 16 Sodium 142 mEq/L 135-145 Potassium 4.5 mEq/L 3.5-5.0 Chloride 108 mEq/L High 95-107 Co-2 24 mEq/L 24-31 Calcium 8.1 mg/dL Low 8.5-10.6 GFR 17 ML/MIN/1. 73SQM Low >60 Comp. Met 01/17/2024 [facility] [address] [place] [address] Glucose 94 mg/dL 70-110 17 BUN 54 mg/dL High 6-25 Creatinine 3.4 mg/dL Critical high 0.7-1.3 18 Sodium 143 mEq/L 135-145 Potassium 5.6 mEq/L High 3.5-5.0 Chloride 111 mEq/L High 95-107 Co-2 25 mEq/L 24-31 Alk Phos 39 IU/L Low 43-122 Alt(SGPT) 25 IU/L 10-40 Ast(Sgot) 19 IU/L 3-42 T.Bilirubin 0.4 mg/dL 0.1-1.3 Calcium 8.7 mg/dL 8.5-10.6 Tot.Protein 5.3 g/dL Low 5.8-8.0 Albumin 3.5 g/dL 3.0-5.2 Globulin 1.8 g/dL Low 2.0-3.4 GFR 19 ML/MIN/1. 73SQM Low >60 Lipid 01/17/2024 [facility] [address] [place] [address] Cholesterol 166 mg/dL 0-200 19 Triglyceride 125 mg/dL 0-150 2 0 HDLD 67 mg/dL See Comment 21 Measured LDL 64 mg/dL 0-130 22 Calc VLDL 25.0 mg/dL See Comment 23 Chol/HDL 2.5 RATIO See Comment 24 Non-HDL 99 mg/dL See Comment 25 Laboratory test finding 01/17/2024 [facility] [address] [place] [address] [phone] TSH 3.81 uIU/mL 0.50-6.00 FRT4 0.88 ng/dL 0.75-1.54 Hba1c 01/17/2024 [facility] [address] [place] [address] A1c 5.60 % 4.70-6.50 26 CBC No Diff 01/17/2024 [facility] [address] [place] [address] [phone] WBC 7.6 10^3/M3 3.1-9.2 RBC 3.67 10^6/M3 Low 4.00-5.80 HGB 12.5 GR/DL 12.5-17.5 HCT 36.7 % Low 37.5-52.5 MCV 99.9 CUMICR High 82.6-95.8 MCH 34.2 PICOGR High 27.9-32.9 MCHC 34.2 % 32.6-35.4 RDW 16.4 % High 11.4-14.6 PLT 190 10^3/M3 140-350 MPV 7.2 CUMICR 7.0-10.6 Manual Diff 01/17/2024 [facility] [address] [place] [address] [phone] Seg 81 High 45-75 Lymph 13 Low 20-45 Donley 7 0-10 Eosin 0 0-6 Baso 0 0-2 RBC Morphology NORMAL 1 CRITICAL RESULTS LUCI IFIED, FAXED, AND CALLED TO EVAN 06/17/24 AT 1218 SNW 2 *[facility] USES MICROALBUMIN/CREATINE RATIO : *<30 ug/mg CREATININE IS CLASSIFIED NORMAL *30-300 ug/mg CREATININE IS CLASSIFIED CLINICAL MICROALBUMINURIA *>300 ug/mg CREATININE IS CLASSIFIED CLINICAL ALBUMINURIA CLASSIFICATION OF A PATIENT SHOULD BE BASED ON TWO OF THREE ABNORMAL RESULTS COLLECTED WITHIN A 3 TO 6 MONTH TIME FRAME* 3 BUN/CREA COMMENTS CRITICAL RESULTS VERIFIED, FAXED, AND CALLED TO JESS [email or web address] 05/14/24 ODIN 4 CHOLESTEROL Less than 200mg/dl Low risk 201-239 mg/dl Borderline risk Equal to or greater 240mg/dl High risk 5 TRIGLYCERIDES Less than 150mg/dl Normal 150-199mg/dl Borderline 200-499mg/dl High Greater than 500mg/dl Very High 6 HDL <40mg/dl Elevated Risk 41-59mg/dl Risk >=60mg/dl Least Risk 7 LDL <100mg/dl Optimal 100-129mg/dl Near Optimal 130-159mg/dl Borderline High 160-189mg/dl High >=190 Very High 8 VLDL Less than 30mg/dl Normal 9 CHOL/HDL <4.0 Optimal 4.0-5.0 Borderline >6.0 High Risk 10 NON-HDL 30mg/dl higher than LDL Target 11 MEAN GLUCOSE IN mg/d L/A1c% POOR CONTROL FAIR CONTROL GOOD CONTROL EXCELLENT CONTROL 360-14 210-9 180-8 120-6 330-13 150-7 90-5 300-12 270-11 240-10 12 REPORT FAXED TO DOCT OR, REQUESTED ON REQUISITION.04/21/24 13 CRITICAL RESULTS LUCI IFIED, FAXED, AND CALLED TO merry olivera @ 130pm hjl [address] Dr Gutiérrez Phone - Fax - [phone] 15 REPORT FAXED TO DOCT OR, REQUESTED ON REQUISITION.03/04/24 LM 16 ATTEMPTED TO CALL TH E CRITICAL, BUT AT THE ABOVE NUMBER, NO OPTION IS GIVEN TO PAGE AN PRICE ACCURACY SUPERVISOR PROVIDER. GARY CREATININE COMMENTS CRITICAL RESULTS VERIFIED, FAXED, AND CALLED TO KATALINA PUGA @ 10:24. 17 FASTING Fax a copy o f lab results to Nephrology Phone - [phone] Fax - [phone] 18 CRITICAL RESULTS LUCI IFIED, FAXED, AND CALLED TO CHAPIN [email or web address] 01/17/24 ODIN 19 CHOLESTEROL Less than 200mg/dl Low risk 201-239 mg/dl Borderline risk Equal to or greater 240mg/dl High risk CHOLESTEROL COMMENTS REPORT FAXED TO DOCTOR, REQUESTED ON REQUISITION.01/17/24 20 TRIGLYCERIDES Less than 150mg/dl Normal 150-199mg/dl Borderline 200-499mg/dl High Greater than 500mg/dl Very High 21 HDL <40mg/dl Elevated Risk 41-59mg/dl Risk >=60mg/dl Least Risk 22 LDL <100mg/dl Optimal 100-129mg/dl Near Optimal 130-159mg/dl Borderline High 160-189mg/dl High >=190 Very High 23 VLDL Less than 30mg/dl Normal 24 CHOL/HDL <4.0 Optimal 4.0-5.0 Borderline >6.0 High Risk 25 NON-HDL 30mg/dl higher than LDL Target 26 MEAN GLUCOSE IN mg/d L/A1c% POOR CONTROL FAIR CONTROL GOOD CONTROL EXCELLENT CONTROL 360-14 210-9 180-8 120-6 330-13 150-7 90-5 300-12 270-11 240-10 Procedures Date Code Description Status 07/08/2024 G0008 Influenza Admin Completed 06/16/2024 08261 Venipuncture Routine Complet ed 06/16/2024 1111F D/C Medications Reconciled W/Current Medications In Outpt MR Completed 05/27/2024 J1010 Inj, methylpred acetate 1 mg Completed 05/13/2024 82851 Venipuncture Routine Complet ed 04/18/2024 51460 Venipuncture Routine Complet ed 04/11/2024 19139 Venipuncture Routine Complet ed 04/11/2024 1111F D/C Medications Reconciled W/Current Medications In Outpt MR Completed 04/08/2024 1111F D/C Medications Reconciled W/Current Medications In Outpt MR Completed 04/04/2024 37513 Electrocardiogram Complete C ompleted 03/19/2024 46213 Venipuncture Routine Complet ed 03/07/2024 G9919 SCRN ND Pos ND Prov Of Rec C ompleted 03/01/2024 98027 Venipuncture Routine Complet ed 02/25/2024 G2211 Continuation of care e/m vis it add on Completed 01/22/2024 3725F Screening Depression Perform ed Completed 01/22/2024 3288F Fall Risk Assessment Documen awais Completed 01/22/2024 3078F PVRP Diastolic BP <80 mmHg C ompleted 01/22/2024 3074F PVRP Systolic BP <130 mmHg C ompleted 01/22/2024 1100F PT Screened Futu re Fall Risk >/=2 Falls In Past Yr/1 W/Injury Completed 01/17/2024 56081 Venipuncture Routine Complet ed Medical Devices Description No Information Available Encounters Type Date Location Provider Dx Diagnosis Office Visit 07/07/2024 2:02p Kylie Pang JR, DO 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, stage 5 I48.0 Paroxysmal atrial fi brillation D64.9 Anemia, unspecified E11.51 Type 2 diabetes w di abetic peripheral angiopath w/o gangrene Office Visit 06/16/2024 2:00p Kylie Steven MD J44.9 Chronic obstructive pulmonary disease, unspecified N18.5 Chronic kidney disea se, stage 5 I50.22 Chronic systolic (co ngestive) heart failure E87.5 Hyperkalemia R09.02 Hypoxemia T14.8xxD Other injury of unsp ecified body region, subs Office Visit 06/07/2024 4:33p Kylie Pang JR, DO E11.51 Type 2 diabetes w diabetic peripheral angiopath w/o gangrene N18.5 Chronic kidney disea se, stage 5 N25.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arat hyroidism of renal origin I48.0 Paroxysmal atrial fi brillation R06.00 Dyspnea, unspecified Office Visit 05/27/2024 11:30a [facility] Rodriguez reyes MD R06.00 Dyspnea, unspecified Office Visit 05/19/2024 4:15p [facility] Lonny pack, DO S09.301A Unsp injury of right middle and inner ear, init encntr Office Visit 05/13/2024 11:30a [place] Vinod Pang JR, DO E11.51 Type 2 diabetes w diabetic peripheral angiopath w/o gangrene N18.5 Chronic kidney disea se, stage 5 E78.00 Pure hypercholestero lemia, unspecified I50.22 Chronic systolic (co ngestive) heart failure D64.9 Anemia, unspecified J84.9 Interstitial pulmona ry disease, unspecified J44.9 Chronic obstructive pulmonary disease, unspecified N25.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arat hyroidism of renal origin E88.810 Metabolic syndrome E88.81 Metabolic syndrome a nd other insulin resistance Office Visit 04/11/2024 2:30p [place] Pierre rodriguez PA-C I50.22 Chronic systolic (congestive) heart failure J84.9 Interstitial pulmona ry disease, unspecified Office Visit 04/04/2024 1:30p [facility] Loretta Urena PA-C R60.9 Edema, unspecified N18.6 End stage renal dise ase J84.9 Interstitial pulmona ry disease, unspecified Z99.2 Dependence on renal dialysis I42.9 Cardiomyopathy, unsp ecified I48.0 Paroxysmal atrial fi brillation Z99.81 Dependence on supple mental oxygen R06.02 Shortness of breath D64.9 Anemia, unspecified Office Visit 03/07/2024 1:00p [facility] Vinod Pang JR, DO 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, stage 5 N25.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arat hyroidism of renal origin E11.51 Type 2 diabetes w di abetic peripheral angiopath w/o gangrene Office Visit 02/25/2024 11:15a [place] Vinod Pang JR, DO F33.1 Major depressive disorder, recurrent, moderate Office Visit 02/05/2024 9:42a [place] Vinod Pang JR, DO 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, stage 5 I48.0 Paroxysmal atrial fi brillation 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 D64.9 Anemia, unspecified J84.9 Interstitial pulmona ry disease, unspecified Office Visit 01/22/2024 10:00a [place] Vinod Pang JR, DO Z00.01 Encounter for general adult medical exam w abnormal findings C83.39 Diffuse large B-cell lymphoma, extrnod and solid organ sites 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 F33.1 Major depressive dis order, recurrent, moderate I48.0 Paroxysmal atrial fi brillation N18.5 Chronic kidney disea se, stage 5 N25.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arat hyroidism of renal origin E11.51 Type 2 diabetes w di abetic peripheral angiopath w/o gangrene I12.0 Hyp chr kidney disea se w stage 5 chr kidney disease or Esrd E03.9 Hypothyroidism, unsp ecified E78.2 Mixed hyperlipidemia Assessments Date Code Description Provider 07/08/2024 Z23 Encounter for immunization K dusty Pang JR, DO 07/07/2024 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, stag e 5 Vinod Pang JR, DO 07/07/2024 I48.0 Paroxysmal atrial fibrillati on Vinod Pang JR, DO 07/07/2024 D64.9 Anemia, unspecified Vinod Pang JR, DO 07/07/2024 E11.51 Type 2 diabetes mellitus with diabetic peripheral angiopathy without gangrene Vinod Pang JR, DO 06/16/2024 J44.9 Chronic obstruct vicente pulmonary disease, unspecified Rodriguez Steven MD 06/16/2024 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, stag e 5 Rodriguez Steven MD 06/16/2024 I50.22 Chronic systolic (congestive) heart failure Rodriguez Steven MD 06/16/2024 E87.5 Hyperkalemia Rodriguez Steven MD 06/16/2024 R09.02 Hypoxia Rodriguez Steven MD 06/16/2024 T14.8xxD Muscle strain Rodriguez Steven MD 06/07/2024 E11.51 Type 2 diabetes mellitus with diabetic peripheral angiopathy without gangrene Vinod Pang JR, DO 06/07/2024 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, stag e 5 Vinod Pang JR, DO 06/07/2024 N25.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 arathyroidism of renal origin Vinod Pang JR, DO 06/07/2024 I48.0 Paroxysmal atrial fibrillati on Vinod Pang JR, DO 06/07/2024 R06.00 Dyspnea Vinod hammond JR, DO 05/27/2024 R06.00 Dyspnea Rodriguez Steven MD 05/19/2024 S09.301A Traumatic injury of right mi ddle ear Lonny Nagel, DO 05/13/2024 E11.51 Type 2 diabetes mellitus with diabetic peripheral angiopathy without gangrene Vinod Pang JR, DO 05/13/2024 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, stag e 5 Vinod Pang JR, DO 05/13/2024 E78.00 Pure hypercholesterolemia, u nspecified Vinod Pang JR, DO 05/13/2024 I50.22 Chronic systolic (congestive) heart failure Vinod Pang JR, DO 05/13/2024 D64.9 Anemia, unspecified Vinod Pang JR, DO 05/13/2024 J84.9 Interstitial pul monary disease, unspecified Vinod Pang JR, DO 05/13/2024 J44.9 Chronic obstruct vicente pulmonary disease, unspecified Vinod Pang JR, DO 05/13/2024 N25.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 arathyroidism of renal origin Vinod Pang JR, DO 05/13/2024 E88.810 Metabolic syndrome Vinod Pang JR, DO 05/13/2024 E88.81 Metabolic syndro me and other insulin resistance Vinodriya Pang JR, DO 05/07/2024 E11.51 Type 2 diabetes mellitus with diabetic peripheral angiopathy without gangrene Vinod Pang JR, DO 05/07/2024 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, stag e 5 Vinod Ben Pang JR, DO 05/07/2024 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, stag e 5 Vinod Ben Pang JR, DO 05/07/2024 E11.51 Type 2 diabetes mellitus with diabetic peripheral angiopathy without gangrene Vinodriya Pang JR, DO 05/07/2024 N25.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 arathyroidism of renal origin Vinod Pang JR, DO 05/07/2024 D64.9 Anemia, unspecified Vinod Pang JR, DO 05/07/2024 N25.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 arathyroidism of renal origin Vinod Pang JR, DO 04/18/2024 D64.9 Anemia, unspecified Vinod Pang JR, DO 04/18/2024 D64.9 Anemia, unspecified [facility] 04/11/2024 I50.22 Chronic systolic (congestive) heart failure RASHAWN [facility] 04/11/2024 J84.9 Interstitial pul monary disease, unspecified RASHAWN [facility] 04/04/2024 R60.9 Edema, unspecified Loretta P yle, DCRobbieC 04/04/2024 N18.6 End stage renal disease Heat her Ayanna, DC-C 04/04/2024 J84.9 Interstitial pul monary disease, unspecified Loretta Ayanna, DC-C 04/04/2024 Z99.2 Dependence on renal dialysis Loretta Ayanna, DC-C 04/04/2024 I42.9 Cardiomyopathy, unspecified Loretta Ayanna, DC-C 04/04/2024 I48.0 Paroxysmal atrial fibrillati on Loretta Ayanna, PA-C 04/04/2024 Z99.81 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 xygen Loretta Ayanna, DC-C 04/04/2024 R06.02 Shortness of breath Loretta Ayanna, PA-C 04/04/2024 D64.9 Anemia, unspecified Loretta Urena PA-C 03/19/2024 D64.9 Anemia, unspecified Vinod Pang JR, DO 03/19/2024 D64.9 Anemia, unspecified [facility] - [facility] 03/07/2024 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, stag e 5 Vinod Pang JR, DO 03/07/2024 N25.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 arathyroidism of renal origin Vinod Pang JR, DO 03/07/2024 E11.51 Type 2 diabetes mellitus with diabetic peripheral angiopathy without gangrene Vinod Pang JR, DO 03/01/2024 J84.9 Interstitial pul monary disease, unspecified Vinod Pang JR, DO 03/01/2024 J84.9 Interstitial pul monary disease, unspecified Lab - [place] 02/25/2024 F33.1 Major depressive disorder, recurrent, moderate Vinod Pang JR, DO 02/05/2024 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, stag e 5 Vinod Pang JR, DO 02/05/2024 I48.0 Paroxysmal atrial fibrillati on Vinod Pang JR, DO 02/05/2024 E11.22 Type 2 diabetes mellitus with diabetic chronic kidney disease Vinod Pang JR, DO 02/05/2024 D64.9 Anemia, unspecified Vinod Pang JR, DO 02/05/2024 J84.9 Interstitial pul monary disease, unspecified Vinod Pang JR, DO 01/22/2024 Z00.01 Encounter for [facility] adult medical examination with abnormal findings Vinod Pang JR, DO 01/22/2024 C83.39 Diffuse large B- cell lymphoma, extranodal and solid organ sites Vinod Pang JR, DO 01/22/2024 E11.22 Type 2 diabetes mellitus with diabetic chronic kidney disease Vinod Pang JR, DO 01/22/2024 F33.1 Major depressive disorder, recurrent, moderate Vinod Pang JR, DO 01/22/2024 I48.0 Paroxysmal atrial fibrillati on Vinod Ben Pang JR, DO 01/22/2024 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, stag e 5 Vinod Pang JR, DO 01/22/2024 N25.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 arathyroidism of renal origin Vinod Pang JR, DO 01/22/2024 E11.51 Type 2 diabetes mellitus with diabetic peripheral angiopathy without gangrene Vinod Pang JR, DO 01/22/2024 I12.0 Hypertensive chr onic kidney disease with stage 5 chronic kidney disease or end stage renal disease Vinod Pang JR, DO 01/22/2024 E03.9 Hypothyroidism, unspecified Vinod Pang JR, DO 01/22/2024 E78.2 Mixed hyperlipidemia Vinod Pang JR, DO 01/17/2024 N25.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 arathyroidism of renal origin Vinod Pang JR, DO 01/17/2024 N25.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 arathyroidism of renal origin Lab - [place] 01/17/2024 E78.00 Pure hypercholesterolemia, u nspecified Vinod Pang JR, DO 01/17/2024 E78.00 Pure hypercholesterolemia, u nspecified Lab - [place] 01/17/2024 E88.810 Metabolic syndrome Vinod Pang JR, DO 01/17/2024 E88.810 Metabolic syndrome Lab - [facility] 01/17/2024 E03.9 Hypothyroidism, unspecified Vinod Pang JR, DO 01/17/2024 E03.9 Hypothyroidism, unspecified Lab - [place] Plan of Treatment Future Appointment(s):* 08/14/2024 9:30 am - Vinod Pang JR, DO at [place] Functional Status Description No Information Available Mental Status Description No Information Available Referrals Refer to Dr Reason for Referral Status Appt Timothy e Hematology/Oncology Pt not seen in over a year , Heme/Onc requested new referral to resume follow up care. Scheduled 07/23/2024 [phone]
--- OUTSIDE RECORDS SUMMARY | 2024-07-17 20:07 | External Medical Summary | Continuity of Care Document ---
Author Name Unknown Organization [facility] Address [address] [place] [address], [place] [address] Phone [phone] Care Team Providers Care Forest Technician Name Role Phone Gastroenterology - Gastroenterology Care Team In formation Senior Lead Project Manager Unavailable Fermín Quick MD Care Team Information Receiv er [phone] Rory Hodge Care Team Information Senior Lead Project Manager [phone] Nixon Aden MD Care Team Information Senior Lead Project Manager [phone] Abran Avalos Interven tional Pain Medicine Care Team Information Senior Lead Project Manager [phone] Medardo Trinidad MD Care Team Information Receive r [phone] Sinan Marks MD Care Team Information Receive r [phone] Problems Active Problems Provider Date Chronic kidney [...] Pang JR DO On set: 09/01/2015 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 Supervisor Beater Room (Cu rrent) Use Encounter Vinod Pang JR [...] NC. 1units Vinod Pang JR, DO 06/13/2024 Lsrfwzrg393yx Tablets 1 tab by mouth twice a day Unknown 02/28/2024 Sertraline HGT200hb Tablets 1 by mouth every day 90tabs F33.1 Vinod Pang JR, DO 02/25/2024 Fzcrqhc08841Phqs/ML Solution 40,000 units monthly per nephrology Unknown 11/27/2023 Clopidogrel Mwugfmucd94la Tablets take one (1) tablet by mouth every day 30tabs I73.9 Vinod Pang JR, DO 08/24/2021 Kpkabnogitd9pj Tablets take one tablet by mouth once daily 30tabs Vinod Pang JR, DO 11/12/2017 Oxycodone-Acetaminophen 7.5-325mg Tablets take one tablet every 6 h as needed pain--ongoing therapy 60tabs Vinod Pang JR, DO 01/22/2014 Atorvastatin Hgvklcl50pl Tablets take one tablet by mouth at bedtime 90tabs E78.0 Vinod Pang JR, DO E78.00 Sulfamethoxazole/Trimethopri m PC202-538cf Tablets Mon/Sun/Sun Unknown [address] 1 PO every day Unknown OxygenMisc 4 liters at night Unknown 0 Tvlhlrf0fm Tablets 1 by mouth twice a day 60tabs Vinod Pang JR, DO Ghmoazbbuw98lk Tablets 1 tab bid Unknown Hxmhyohsvn6zs Tablets 1 PO daily Unknown Fakdjwxbnz67ic Tablets 1 by mouth twice a day 180tab s Unknown History Medications Sertraline LFY37gg Tablets 1 1/2 by mouth every day [...] CPT Code Status Date Vaccine Lot # [id number] Given 07/08/2024 Influenza Vac, Split, Preservative Free High Dose Age 65 & > [id number] U-FLU Given 07/17/2023 Influenza,Unspecified 66873 Given 07/17/2023 Influenza Vaccine High Do se 0.5ML Age 65 & > [id number] 79501 Given 10/04/2022 Influenza Vaccine High Do se 0.5ML Age 65 & > [id number] U-FLU Given 10/04/2022 Influenza,Unspecified U-FLU Given 08/11/2020 Influenza,Unspecified 15710 Given 08/11/2020 Influenza Vacci ne-Administered at another facility 67177 Given 08/23/2019 Influenza Vacci ne-Administered at another facility U-FLU Given 08/23/2019 Influenza,Unspecified 43697 Given 07/11/2018 Influenza Vac, Split, Preservative Free High Dose Age 65 & > [id number] 21436 Given 10/02/2017 Influenza Vac, Split, Preservative Free High Dose Age 65 & > 74757 Given 10/02/2017 Pneumococcal Conjugate-Pr evnar 13 48424 Given 08/14/2016 Influenza Virus Vaccine, Quadrivalent, Im Use [id number] 36817 Given 09/01/2015 Influenza Vac, Split, Preservative Free High Dose Age 65 & > [id number] 31131 Given 09/01/2015 Pneumococcal Conjugate-Pr evnar 13 [id number] 37287 Given 07/21/2014 Influenza Vac, Split, Preservative Free High Dose Age 65 & > [id number] U-FLU Given 07/21/2014 Influenza,Unspecified 42129 Given 01/31/2014 Pneumococcal Vaccine/Pneu movax 23 82184 Given 07/17/2013 Influenza Vac, Split, Preservative Free High Dose Age 65 & > [id number] 48048 Given 07/24/2012 Influenza Vac, Split, Preservative Free High Dose Age 65 & > [id number] 88318 Given 07/04/2011 Influenza Vac, Split, Preservative Free High Dose Age 65 & > [id number] 25795 Given 08/16/2010 Pneumococcal Vaccine/Pneu movax 23 [id number] 93759 Given 10/21/2009 Influenza Vac, Split 6 Mo nths And Older [id number] 88706 Given 07/24/2008 Influenza Vac, Split 6 Mo nths And Older U-FLU Given 07/22/2008 Influenza,Unspecified 80780 Given 10/27/2004 Influenza Vac, Split 6 Mo nths And Older 89561 Given 07/22/2004 Pneumococcal Vaccine/Pneu movax 23 08733 Refused 05/27/2024 Sarscov2 Vaccin e 50 mcg/0.5 ML For Im Use 12 Yrs And Older 29384 Refused 10/19/2023 Sarscov2 Vaccin e 50 mcg/0.5 ML For Im Use 12 Yrs And Older 00608 Refused 04/11/2023 Moderna Sars-Co v-2 (Cov-19) vacc,100 mcg/ 0.5 mL 12Y+EMR Doc Only 59965 Refused 04/11/2023 Shingrix 15810 Refused 07/26/2021 Moderna Sars-Co v-2 (Cov-19) vacc,100 mcg/ 0.5 mL 12Y+EMR Doc Only 83628 Refused 09/28/2020 Shingrix 81298 Refused 09/28/2020 Tdap (Tetanus, diphtheria & acel. pertussis) Adacel or Boostrix 59855 Refused 08/19/2020 Influenza Virus Vaccine, Quadrivalent, Im Use 01658 Refused 07/11/2016 Influenza Vac, Split, Preservative Free High Dose Age 65 & > Vital Signs Date Vital Result Comment 07/08/2024 9:38am Body Temperature 98.6 F 06/16/2024 2:46pm BP Systolic 152 mmHg BP Diastolic 60 mmHg Body Temperature 96.9 F Heart Rate 66 /min Respiratory Rate 22 /min Results Test Acquired Date Facility Test Result H/L Range Note BMP 06/16/2024 [facility] [address] [place] [address] [phone] Glucose 117 mg/dL High 70-110 BUN 66 mg/dL Critical high 6-25 1 Creatinine 3.0 mg/dL High 0.7-1.3 Sodium 143 mEq/L 135-145 Potassium 4.6 mEq/L 3.5-5.0 Chloride 103 mEq/L 95-107 Co-2 25 mEq/L 24-31 Calcium 9.2 mg/dL 8.5-10.6 GFR 22 ML/MIN/1. 73SQM Low >60 Microalbumin Urine 05/13/2024 [facility] [address] [place] [address] [phone] Urine Creat 75 mg/dL Comment Microalbumin 17.7 mg/dL High 0.0-1.8 2 ug/mgCREATININE 236 ug/mg High 0-29 Comp. Met 05/13/2024 [facility] [address] [place], [place] [id number] Glucose 103 mg/dL 70-110 BUN 62 mg/dL [...] 19 ML/MIN/1. 73SQM Low >60 Lipid 05/13/2024 [facility] [address] [place] [address] Cholesterol 170 mg/dL 0-200 4 Triglyceride 145 mg/dL 0-150 5 HDLD 58 mg/dL See Comment 6 Measured LDL 84 mg/dL 0-130 7 Calc VLDL 29.0 mg/dL See Comment 8 Chol/HDL 2.9 RATIO See Comment 9 Non-HDL 112 mg/dL See Comment 10 Laboratory test finding 05/13/2024 [facility] [address] [place] [address] TSH 2.62 uIU/mL 0.50-6.00 FRT4 0.90 ng/dL 0.75-1.54 Hba1c 05/13/2024 [facility] [address] [place] [address] A1c 5.90 % 4.70-6.50 11 CBC No Diff 05/13/2024 [facility] [address] [place] [address] [phone] WBC 9.4 10^3/M3 High 3.1-9.2 RBC 3.27 10^6/M3 Low 4.00-5.80 HGB 11.1 GR/DL Low 12.5-17.5 HCT 33.6 % Low 37.5-52.5 MCV 102.7 CUMICR High 82.6-95.8 MCH 34.0 PICOGR High 27.9-32.9 MCHC 33.1 % 32.6-35.4 RDW 16.0 % High 11.4-14.6 PLT 196 10^3/M3 140-350 MPV 7.7 CUMICR 7.0-10.6 Manual Diff 05/13/2024 [facility] [address] [place] [address] Seg 85 High 45-75 Lymph 7 Low 20-45 Canyon 7 0-10 Eosin 1 0-6 Baso 0 0-2 Laboratory test finding 04/18/2024 [facility] [address] [place] [address] HGB 12.7 GR/DL 12.5-17.5 12 HCT 37.6 % 37.5-52.5 BMP 04/11/2024 [facility] [address] [place], [place] [address] Glucose 133 mg/dL High 70-110 BUN 63 mg/dL Critical high 6-25 13 Creatinine 3.3 mg/dL Critical high 0.7-1.3 Sodium 143 mEq/L 135-145 Potassium 4.7 mEq/L 3.5-5.0 Chloride 103 mEq/L 95-107 Co-2 26 mEq/L 24-31 Calcium 9.3 mg/dL 8.5-10.6 GFR 19 ML/MIN/1. 73SQM Low >60 Laboratory test finding 04/04/2024 [facility] (In Office Test) HGB Fingerstick 11.4 Laboratory test finding 03/19/2024 [facility] [address] [place] [address] HCT 32.7 % Low 37.5-52.5 HGB 11.0 GR/DL Low 12.5-17.5 CBC W/Diff 03/01/2024 [facility] [address] [place] [address] WBC 5.3 10^3/M3 3.1-9.2 14 RBC 2.86 10^6/M3 Low 4.00-5.80 HGB 9.8 GR/DL Low 12.5-17.5 HCT 29.5 % Low 37.5-52.5 MCV 103.1 CUMICR High 82.6-95.8 MCH 34.4 PICOGR High 27.9-32.9 MCHC 33.3 % 32.6-35.4 RDW 19.6 % High 11.4-14.6 PLT 175 10^3/M3 140-350 MPV 7.3 CUMICR 7.0-10.6 %Neut 79.6 % High 40.0-75.0 %Lymph 11.2 % Low 17.0-45.0 %Canyon 7.5 % 1.0-11.0 %Eos 1.0 % 0.0-6.0 %Baso 0.7 % 0.0-2.0 #Neut 4.3 10^3/M3 1.5-8.0 #Lymph 0.6 10^3/M3 Low 0.8-3.2 #Canyon 0.4 10^3/M3 0.0-0.8 #Eos 0.1 10^3/m3 0.0-0.4 #Baso 0.0 10^3/m3 0.0-0.2 Aniso 2+ Hepatic 03/01/2024 [facility] [address] [place] [address] Alk Phos 47 IU/L 43-122 15 Alt(SGPT) 32 IU/L 10-40 Ast(Sgot) 16 IU/L 3-42 T.Bilirubin 0.3 mg/dL 0.1-1.3 D.Bilirubin 0.1 mg/dL 0.0-0.3 Tot.Protein 5.1 g/dL Low 5.8-8.0 Albumin 3.5 g/dL 3.0-5.2 BMP 03/01/2024 [facility] [address] [place] [address] [phone] Glucose 129 mg/dL High 70-110 BUN 50 mg/dL High 6-25 Creatinine 3.6 mg/dL Critical high 0.7-1.3 16 Sodium 142 mEq/L 135-145 Potassium 4.5 mEq/L 3.5-5.0 Chloride 108 mEq/L High 95-107 Co-2 24 mEq/L 24-31 Calcium 8.1 mg/dL Low 8.5-10.6 GFR 17 ML/MIN/1. 73SQM Low >60 Comp. Met 01/17/2024 [facility] [address] [place] [address] Glucose 94 mg/dL 70-110 17 BUN 54 [...] 19 ML/MIN/1. 73SQM Low >60 Lipid 01/17/2024 [facility] [address] [place] [address] [phone] Cholesterol 166 mg/dL 0-200 19 Triglyceride 125 mg/dL 0-150 2 0 HDLD 67 mg/dL See Comment 21 Measured LDL 64 mg/dL 0-130 22 Calc VLDL 25.0 mg/dL See Comment 23 Chol/HDL 2.5 RATIO See Comment 24 Non-HDL 99 mg/dL See Comment 25 Laboratory test finding 01/17/2024 [facility] [address] [place] [address] TSH 3.81 uIU/mL 0.50-6.00 FRT4 0.88 ng/dL 0.75-1.54 Hba1c 01/17/2024 [facility] [address] [place] [address] A1c 5.60 % 4.70-6.50 26 CBC No Diff 01/17/2024 [facility] [address] [place] [address] [phone] WBC 7.6 10^3/M3 3.1-9.2 RBC 3.67 10^6/M3 Low 4.00-5.80 HGB 12.5 GR/DL 12.5-17.5 HCT 36.7 % Low 37.5-52.5 MCV 99.9 CUMICR High 82.6-95.8 MCH 34.2 PICOGR High 27.9-32.9 MCHC 34.2 % 32.6-35.4 RDW 16.4 % High 11.4-14.6 PLT 190 10^3/M3 140-350 MPV 7.2 CUMICR 7.0-10.6 Manual Diff 01/17/2024 [facility] 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 GARY CREATININE COMMENTS CRITICAL RESULTS VERIFIED, FAXED, AND CALLED TO KATALINA PUGA @ 10:24. 17 FASTING Fax a copy o f lab results to Nephrology Phone - [phone] Fax [phone] CRITICAL RESULTS LUCI IFIED, FAXED, AND [...] Status 07/08/2024 G0008 Influenza Admin Completed 06/16/2024 69106 Venipuncture Routine Complet ed 06/16/2024 1111F D/C Medications Reconciled W/Current Medications In Outpt MR Completed 05/27/2024 J1010 Inj, methylpred acetate 1 mg Completed 05/13/2024 05960 Venipuncture Routine Complet ed 04/18/2024 96717 Venipuncture Routine Complet ed 04/11/2024 94093 Venipuncture Routine Complet ed 04/11/2024 1111F D/C Medications Reconciled W/Current Medications In Outpt MR Completed 04/08/2024 1111F D/C Medications Reconciled W/Current Medications In Outpt MR Completed 04/04/2024 11435 Electrocardiogram Complete C ompleted 03/19/2024 91818 Venipuncture Routine Complet ed 03/07/2024 G9919 SCRN ND Pos ND Prov Of Rec C ompleted 03/01/2024 14404 Venipuncture Routine Complet ed 02/25/2024 G2211 Continuation [...] Falls In Past Yr/1 W/Injury Completed 01/17/2024 52588 Venipuncture Routine Complet ed Medical Devices Description [...] R06.00 Dyspnea, unspecified Office Visit 05/27/2024 11:30a [facility] Rodriguez reyes MD R06.00 Dyspnea, unspecified Office Visit 05/19/2024 4:15p [facility] Lonny pack, DO S09.301A Unsp injury of right middle and inner ear, init encntr Office Visit 05/13/2024 11:30a [facility] Vinod Pang JR, DO E11.51 Type 2 [...] other insulin resistance Office Visit 04/11/2024 2:30p [facility] Pierre rodriguez PA-C I50.22 Chronic systolic (congestive) heart failure J84.9 Interstitial pulmona ry disease, unspecified Office Visit 04/04/2024 1:30p [facility] Loretta Urena PA-C R60.9 Edema, unspecified N18.6 End stage renal dise ase J84.9 Interstitial pulmona ry disease, unspecified Z99.2 Dependence on renal dialysis I42.9 Cardiomyopathy, unsp ecified I48.0 Paroxysmal atrial fi brillation Z99.81 Dependence on supple mental oxygen R06.02 Shortness of breath D64.9 Anemia, unspecified Office Visit 03/07/2024 1:00p [facility] Vinod Pang JR, DO 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, stage 5 N25.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arat hyroidism of renal origin E11.51 Type 2 diabetes w di abetic peripheral angiopath w/o gangrene Office Visit 02/25/2024 11:15a [facility] Vinod Pang JR, DO F33.1 Major depressive disorder, recurrent, moderate Office Visit 02/05/2024 9:42a [facility] Vinod Pang JR, DO 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, stage 5 I48.0 Paroxysmal atrial fi brillation 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 D64.9 Anemia, unspecified J84.9 Interstitial pulmona ry disease, unspecified Office Visit 01/22/2024 10:00a [facility] Vinod Pang JR, DO Z00.01 Encounter for [...] 04/04/2024 R60.9 Edema, unspecified Loretta P yle, SCRobbieC 04/04/2024 N18.6 End stage renal disease Heat her Ayanna, SC-C 04/04/2024 J84.9 Interstitial pul monary disease, unspecified Loretta Ayanna, SC-C 04/04/2024 Z99.2 Dependence on renal dialysis Loretta Ayanna, SC-C 04/04/2024 I42.9 Cardiomyopathy, unspecified Loretta Ayanna, SC-C 04/04/2024 I48.0 Paroxysmal atrial fibrillati on Loretta Ayanna, PA-C 04/04/2024 Z99.81 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 xygen Loretta Ayanna, SC-C 04/04/2024 R06.02 Shortness of breath Loretta Ayanna, [...] Interstitial pul monary disease, unspecified Lab - [facility] 02/25/2024 F33.1 Major depressive disorder, recurrent, moderate [...] Pang JR, DO 01/22/2024 Z00.01 Encounter for [facility] adult medical examination with abnormal findings Vinod [...] hyperp arathyroidism of renal origin Lab - [facility] 01/17/2024 E78.00 Pure hypercholesterolemia, u nspecified Vinod Pang JR, DO 01/17/2024 E78.00 Pure hypercholesterolemia, u nspecified Lab - [facility] 01/17/2024 E88.810 Metabolic syndrome Vinod Pang JR, DO 01/17/2024 E88.810 Metabolic syndrome Lab - [facility] 01/17/2024 E03.9 Hypothyroidism, unspecified Vinod Pang JR, DO 01/17/2024 E03.9 Hypothyroidism, unspecified Lab - [facility] Plan of Treatment Future Appointment(s):* 08/14/2024 9:30 am - Vinod Pang JR, DO at [facility] Functional Status Description No Information Available Mental Status Description No Information Available Referrals Refer to Dr Reason for Referral Status Appt Timothy e Hematology/Oncology Pt not seen in over a year , Heme/Onc requested new referral to resume follow up care. Scheduled 07/23/2024 [phone]
[2024-07-17] MEDS: APIXABAN 5 MG TABLET PO SCH (21:51)
[2024-07-17] MEDS: ATORVASTATIN 40 MG TAB PO SCH (21:51)
[2024-07-18 08:23] LABS: Basophils # (auto) 0.03 K/uL (0.00-0.20); Basophils % (auto) 0.4 %; Eosinophils # (auto) 0.07 K/uL (0.00-0.50); Hematocrit (blood only) 27.4 % (42.0-52.0); Hemoglobin 8.1 g/dl (14.0-18.0); Immature Granulocytes # (auto) 0.12 K/uL (0.01-0.20); Immature Granulocytes % (auto) 1.8 %; Lymphocytes # (auto) 0.55 K/uL (1.20-3.40); Lymphocytes % (auto) 8.1 %; Mean Corpuscular Hgb Conc 29.6 g/dL (32.0-36.0); Mean Platelet Volume 9.4 fL (9.4-12.4); Monocytes % (auto) 10.3 %; Neutrophils # (auto) 5.32 K/uL (1.40-6.50); Neutrophils % (auto) 78.4 %; Platelet Count 250 K/uL (130-400); RDW Coefficient of Variation 15.6 % (11.5-14.5); RDW Standard Deviation 59.7 fL (36.4-46.3); Red Blood Count 2.61 M/uL (4.70-6.10); White Blood Count 6.79 K/ul (4.8-10.8)
[2024-07-18 08:41] LABS: Albumin Globulin Ratio 1.6 (0.9-2); Albumin Level 3.5 gm/dl (3.4-5.0); BUN Creatinine Ratio 11.4 (10-20); Bilirubin,Total 0.3 mg/dl (0.2-1.0); Calcium 8.9 mg/dl (8.6-10.3); Chol HDL Ratio 2.9 (0-5); Creatinine Clr Calc Pharmacy 18.1 ml/min; Globulin 2.2 gm/dl (2.5-4.0); Magnesium 2.2 mg/dl (1.7-2.4); Potassium 4.5 mmol/L (3.5-5.1); Total Protein 5.7 gm/dl (6.0-8.3)
[2024-07-18] MEDS: CLOPIDOGREL BISULFATE 75 MG TAB PO SCH (09:26)
--- NOTE | 2024-07-18 12:09 | CT Scan Report ---
CT thoracic spine wo con HISTORY: 79 years-old Male fracture acute mid back pain. COMPARISON: Chest CT 07/17/2024, and also 10/10/2023. TECHNIQUE: Multiple axial CT images of the thoracic spine were obtained without IV contrast. FINDINGS: Demineralized appearance of the bones. Multilevel degenerative changes including predominantly mild a nd jxsm-mc-wmstrrii intervertebral disc space narrowing and spondylotic spurring with moderate facet arthrosis. There is mild kyphosis centered at the T5 burst fracture. There is up to 70% vertebral bod y height loss anteriorly with vacuum disc phenomenon at T5-T6. Retropulsion measures up to 3 mm. Ther e is mild associated central canal stenosis at this interspace. Mild paravertebral edema. No definite fracture extension into the posterior elements. No additional acute fracture or subluxation. There is suboptimal evaluation of the central canal and neural foramen by CT technique. There is anne re bilateral T5-T6 neural foraminal stenosis. Intrathoracic findings are dictated separately on yeste rday's chest CT. Trace pleural effusions with mild bibasilar atelectasis. Cardiomegaly. Calcified rig ht hepatic lobe lesion. Cyst with layering milk of calcium within the right kidney. Nonobstructing le ft nephrolithiasis. IMPRESSION: 1. Snvoy-dk-bqotwiqq T5 burst fracture with minimal retropulsion. There is resultant mild central can al stenosis with severe bilateral foraminal narrowing at T5-T6. 2. Demineralized appearance of the bones with udak-aj-oycqrxui intervertebral disc space narrowing an d moderate facet arthrosis. ACT 112: Negative or not required by law. The above report was generated using voice recognition software. It may contain grammatical, syntax o r spelling errors. Dictated: 07/18/2024 7:09 AM Transcribed: 07/18/2024 8:34 AM Teo [id number] [email or web address] Electronically signed by: Usama Villarreal M.D. 07/18/2024 12:07 PM
--- NOTE | 2024-07-18 13:15 | Hospitalist Progress Note ---
Date of Service July 18, 2024 Assessment & Plan (1) CHF exacerbation: Plan: Manuel presented to the ER with worsening shortness of breath increasing his home O2 to 5 L (baseline 4 L). Chest x-ray: Cardiomegaly with pulmonary vascular congestion and trace pleural e ffusions Chest CT: No effusions or airspace consolidation, stable lung nodule, T5 burst fracturelikely acute or subacute Last echo 04/2024: EF 40-40 murmur, normal right ventricular systolic function. - Elevated BNP however lower than prior admission - continue Bumex 1 mg twice daily wean oxygen as able (2) Closed stable burst fracture of fifth thoracic vertebra: Plan: Incidental finding on CT scan, however patient reports a fall 2 to 3 weeks ago Patient denies pain but does feel like he has some weakness in his legs that is likely unrelated. Orthospine consulted, Dr. Joiner - avoid lifting more than 5 lbs PT OT (3) COPD (chronic obstructive pulmonary disease): Plan: Does not take daily inhalers at home, has Prn nebs. Does not seem to be in acute exacerbation Also with hx of lymphoma and pulmonary nodules - CT does not show recurrance - continue mycophenolate and prophylactic bactrim - Patient has been on steroid taper, currently had weaned himself down to 10mg prednisone BID. Steroids increased at discharge ?leading to increased fluid. --> continue at 20mg qAM Also with MAEGAN - does not use CPAP Concerns that patient may be over oxygenating himself at home due to symptoms rather than actual readings, could benefit from a pulse oximeter Encourage IS (4) Elevated troponin: Plan: Peak at 27, this appears chronic for the patient likely due to poor renal clearance with CKD EKG without signs of ischemia Patient denies chest pain (5) CKD (chronic kidney disease): Plan: Baseline creatinine~3.5 - close monitoring with continued diuresis also with anemia of chronic diseasehemoglobin stable Plan Chronic stable medical conditions: * History of DVTcontinue Eliquis * CAD with stents - continue plavix, statin. Continue coreg * BPH - continue finasteride * mental health - continue zoloft Dispo: continued inpatient stay Dvt proh: Sade (home) updated by phone 07/18 Admission and Anticipated Discharge Date Admission Date: July 17, 2024 Supervising Physician Co-Signing Physician Notes Attending Attestation - Chart reviewed, care plan d/w JOSIE Martinez. I agree w/ the muniz components of her documentation. Appreciate ortho-spine consultation & recs. Red Matthew MD Subjective Manuel was seen sitting up in bed. States that he came in because he was having breathing difficulties and having to use 5 L. His baseline is 4 L however he remains on 1 L here and is stable Patient denies pain in the back at the site of the fracture unless status touched. He does not know what medications he takes but asked me to spoke with his When I called his she was able to confirm his medications. States that Manuel does not move around a lot at home and thinks she is harming himself. The waiter/waitress second class was running out of options to treat his breathing difficulties. He has been self weaning his steroid dose and is now on 10 mg twice a day telemetrysinus rhythm with PVCs 70s and 80s Review of Systems Review of Systems: All systems reviewed & are unremarkable except as noted in Subjective Physical Exam Physical Exam: General: NAD, VS as above Resp: normal respiratory effort, low lung volume, expiratory wheeze right base CV: RRR, no murmur, Abd: normal bowel sounds, non tender, no hepatosplenomegaly Extremities: Moves all extremities, 3+ pitting edema Neuro: A&O x3, Results & Data Results & Data Vital Signs (Past 12 Hours) Vital Signs Temp Pulse Pulse Resp BP Pulse Ox Pulse Ox 07/18/24 11:04 97.9 F 84 20 135/71 95 07/18/24 09:54 07/18/24 08:08 83 16 93 07/18/24 08:06 83 16 93 07/18/24 07:59 97.7 F 90 20 146/69 H 95 07/18/24 07:46 75 07/18/24 03:40 98.1 F 78 18 130/77 93 O2 Del Method O2 Del Method O2 Flow Rate O2 Flow Rate 07/18/24 11:04 Nasal Cannula 1.0 07/18/24 09:54 Nasal Cannula 1 07/18/24 08:08 Nasal Cannula 1 07/18/24 08:06 Nasal Cannula 1 07/18/24 07:59 Nasal Cannula 1 07/18/24 07:46 07/18/24 03:40 Nasal Cannula 1 Laboratory Results CBC and chemistry reviewed PG Care Time/CCT Total # of Minutes Spent Total Time Spent with Patient: Total time spent is greater than 50% in coordination of care (as documented) at patient's floor/unit and/or counseling patient: Coding Level of Care Code 53607 SUB INP/OBS CARE 3/50MIN Diagnoses CHF exacerbation I50.9 Heart failure type: unspecified Closed stable burst fracture of fifth thoracic vertebra S22.051A COPD (chronic obstructive pulmonary disease) J44.9 COPD type: unspecified COPD Elevated troponin R79.89 CKD (chronic kidney disease) N18.9 Chronic kidney disease stage: unspecified stage (1) CHF exacerbation Heart failure type: unspecified Qualified Code(s): I50.9 - Heart failure, unspecified (3) COPD (chronic obstructive pulmonary disease) COPD type: unspecified COPD Qualified Code(s): J44.9 - Chronic obstructive pulmonary disease, unspecified (5) CKD (chronic kidney disease) Chronic kidney disease stage: unspecified stage Qualified Code(s): N18.9 - Chronic kidney disease, unspecified
--- NOTE | 2024-07-18 13:24 | Orthopedic Consultation ---
Date of Consultation July 18, 2024 Assessment & Plan (1) Stable burst fracture of fifth lumbar vertebra: Assessment T5 burst fracture. Plan at this time a discussion of this patient review reviewing his CAT scan finding. At this point secondary to body habitus limited lung capacity would not recommend brace immobilization. He can undergo light activity with comfort. I asked that he avoid lifting anything greater than 5 pounds. This should heal on its own. History of Present Illness Reason for Consultation: T5 burst fracture Attending Physician: Red Matthew MD History of Present Illness This is a very pleasant 79-year-old male that is admitted for multiple medical issues. Upon exam and workup it was determined to have a T5 burst fracture. He denies any specific trauma fall or event that precipitated this injury. He has been managed by chiropractor for this pain. At this point he denies any numbness or tingling lower extremities or rib cage. He is relatively comfortable with modest activity. Allergies Allergy/AdvReac Type Severity Reaction Status Date / Time No Known Allergies Allergy Verified 07/11/24 14:37 Home Medications Medication Instructions Recorded Confirmed Type atorvastatin 80 mg tablet (Lipitor) 80 mg PO HS #0 tabs 12/21/14 07/17/24 History finasteride 5 mg tablet 5 mg PO QAM 12/04/18 07/17/24 History clopidogrel 75 mg tablet 75 mg PO QAM 09/15/21 07/17/24 History epoetin neptali 40,000 unit/mL 40,000 unit subcut .COMPLEX #1 mL 03/20/23 07/17/24 Rx injection solution (Procrit) nebulizers (Aeroneb Go Nebulizer) #1 ea 09/19/23 07/01/24 Rx Portable Oxygen 12/11/23 07/01/24 History apixaban 5 mg tablet (Eliquis) 5 mg PO BID #180 tabs 12/11/23 07/17/24 Rx carvedilol 25 mg tablet 25 mg PO BID #180 tabs 04/21/24 07/17/24 Rx ipratropium 0.5 mg-albuterol 3 mg 3 ml inhalation DIRECTED PRN 06/10/24 07/17/24 History (2.5 mg base)/3 mL nebulization Other soln sertraline 100 mg tablet 100 mg PO DAILY 06/10/24 07/17/24 History B12 2,000 mcg PO DAILY 07/17/24 07/17/24 History bumetanide 1 mg tablet 1 mg PO UD 07/17/24 07/17/24 History mycophenolate mofetil 500 mg tablet 500 mg PO BID 07/17/24 07/17/24 History oxycodone-acetaminophen 7.5 mg-325 1 tab PO DIRECTED PRN Pain 07/17/24 07/17/24 History mg tablet (Endocet) pantoprazole 40 mg tablet,delayed 40 mg PO DAILY 07/17/24 07/17/24 History release prednisone 10 mg tablet 10 mg PO BID 07/17/24 07/17/24 History sulfamethoxazole 800 1 tab PO .SUN,SUN,Fridays07/17/24 07/17/24 History mg-trimethoprim 160 mg tablet Patient History Medical History COPD (chronic obstructive pulmonary disease) Moderate mitral regurgitation Left ventricular systolic dysfunction Paroxysmal atrial fibrillation Chronic respiratory failure CKD (chronic kidney disease) HFrEF (heart failure with reduced ejection fraction) Chronic kidney disease, stage IV (severe) ILD (interstitial lung disease) Anemia Chronic anticoagulation Cardiomyopathy Metabolic acidosis Situational depression Severe protein-calorie malnutrition Left leg DVT Anorexia Weight loss Acute respiratory failure with hypoxia Gastroenteritis due to 2019-nCoV Pneumonia due to COVID-19 virus COVID-19 Pneumonia 3 YRS AGO Osteoarthritis Chronic back pain Hemodialysis patient LAST DIAYLSIS FEBRUARY 11, 2019. NEPHROLOGY HAS STOPPED DIAYLSIS FOR THE TIME. On anticoagulant therapy Sleep apnea NON-COMPLIANT Hearing deficit Deep vein thrombosis ~ Peripheral vascular disease Peripheral neuropathy Deep vein thrombosis Scrotal swelling Coronary artery disease Acute kidney injury Pneumonia ARF (acute renal failure) Metabolic acidosis Surgical History History of esophagogastroduodenoscopy (EGD) History of colonoscopy History of heart artery stent History of cardiac cath X1. FOLLOWS WITH DR JOYNER S/P femoral-femoral bypass surgery RIGHT LEG H/O vascular surgery REMOVAL OF DVT History of lumbar discectomy History of umbilical hernia repair Family History Mother FHx: lung cancer FHx: uterine cancer Other Allergy Cancer Diabetes Heart disease Lung cancer Lung disease Denies family history of Tuberculosis Emphysema of lung Asthma Social History Smoking Status: Former smoker Tobacco Type: Cigarettes packs per day: 1; Second Hand Exposure: No; Do You Dip or Chew Tobacco: No; Hx Alcohol Use: Yes Alcohol type: beer Hx Substance Use: No Preferred Language: Mongolian Communication Ability: Effective Certified Ophthalmic Technician Required: No Beliefs That Will Affect Care: None Current Living Situation: Spouse Current Living Situation Comment: -Sandra Feels Safe at Home: Yes Assistive Devices: Oxygen - Continuous and Walker Physical Exam Physical Exam: On exam patient is currently in bed. He is neurologically intact. He is comfortable with motion. Results & Data Vital Signs (Past 12 Hours) Vital Signs Temp Pulse Pulse Resp BP Pulse Ox Pulse Ox 07/18/24 13:10 73 24 94 07/18/24 11:04 36.6 C 84 20 135/71 95 07/18/24 09:54 07/18/24 08:08 83 16 93 07/18/24 08:06 83 16 93 07/18/24 07:59 36.5 C 90 20 146/69 H 95 07/18/24 07:46 75 07/18/24 03:40 36.7 C 78 18 130/77 93 O2 Del Method O2 Del Method O2 Flow Rate O2 Flow Rate 07/18/24 13:10 Nasal Cannula 1 07/18/24 11:04 Nasal Cannula 1.0 07/18/24 09:54 Nasal Cannula 1 07/18/24 08:08 Nasal Cannula 1 07/18/24 08:06 Nasal Cannula 1 07/18/24 07:59 Nasal Cannula 1 07/18/24 07:46 07/18/24 03:40 Nasal Cannula 1
[2024-07-18] MEDS: SULFAMETHOXAZOLE/TRIMETHOPRIM DS 800/160MG TAB PO SCH (13:38)
[2024-07-18] MEDS: FINASTERIDE 5 MG TAB PO SCH (13:38)
[2024-07-18] MEDS: SERTRALINE HCL 100 MG TABLET PO SCH (13:38)
[2024-07-18] MEDS: PANTOprazole 40 MG TAB PO SCH (13:38)
[2024-07-18] MEDS: carvediloL 25 MG TAB PO SCH (13:38)
[2024-07-18] MEDS: predniSONE 20 MG TAB PO SCH (15:09)
[2024-07-18] MEDS: MYCOPHENOLATE MOFETIL 250 MG CAP PO SCH (20:39)
[2024-07-19 06:24] LABS: Hematocrit (blood only) 26.4 % (42.0-52.0); Hemoglobin 7.9 g/dl (14.0-18.0); Mean Corpuscular Hgb Conc 29.9 g/dL (32.0-36.0); Mean Corpuscular Volume 103.5 fL (80.0-100.0); Mean Platelet Volume 9.2 fL (9.4-12.4); Platelet Count 237 K/uL (130-400); RDW Coefficient of Variation 15.8 % (11.5-14.5); RDW Standard Deviation 58.8 fL (36.4-46.3); Red Blood Count 2.55 M/uL (4.70-6.10); White Blood Count 7.06 K/ul (4.8-10.8)
[2024-07-19 06:43] LABS: BUN Creatinine Ratio 12.4 (10-20); Calcium 8.6 mg/dl (8.6-10.3); Creatinine Clr Calc Pharmacy 17.9 ml/min; Potassium 4.7 mmol/L (3.5-5.1)
[2024-07-19 11:41] VITALS: RESP 20
[2024-07-19 11:52] VITALS: BP 124/69; TEMP 97.9; O2SAT 93
--- NOTE | 2024-07-19 11:59 | Discharge Summary ---
Discharge Summary Date of Service July 19, 2024 Principal Dx & Hospital Course #1 = Principal Diagnosis (1) CHF exacerbation: Manuel presented to the ER with worsening shortness of breath increasing his home O2 to 5 L (baseline 4 L) - however recent 2- step in our system recommend RA at rest and with acitvity. Chest x-ray: Cardiomegaly with pulmonary vascular congestion and trace pleural effusions Chest CT: No effusions or airspace consolidation, stable lung nodule, T5 burst fracturelikely acute or subacute Last echo 04/2024: EF 40-40 murmur, normal right ventricular systolic function. - Elevated BNP however lower than prior admission - continue Bumex 1 mg daily at discharge Recommend CHF clinic follow up at discharge,pt already follows with. ? right heart cath ever done, suspect severe pulmonary HTN (2) COPD (chronic obstructive pulmonary disease): Does not take daily inhalers at home, has Prn nebs. Does not seem to be in acute exacerbation Also with hx of lymphoma and pulmonary nodules - CT does not show recurrence - continue mycophenolate - Patient has been on steroid taper, currently had weaned himself down to 10mg prednisone BID. continue 20mg qAM and wean per direction of outpatient environmental manager - continue bactrim for PJP proh - consider dose reduction based on kidney function but defer to PCP Also with MAEGAN - does not use CPAP, states that is why he is on nocturnal O2 Concerns that patient may be over oxygenating himself at home due to symptoms rather than actual readings, has a pulse oximeter at home. Discussed checking O2 readings, goals 92-94% and only increasing his oxygen if he is sustained below 88%. Recommend close follow up with his Business Supervisor - has had an EXTENSIVE workup x2, no new acute cause for worsening symptoms. ? need for daily inhalers with ILD/COPD, but will defer to environmental manager for adjustments. (3) Closed stable burst fracture of fifth thoracic vertebra: Incidental finding on CT scan, however patient reports a fall 2 to 3 weeks ago Patient denies pain but does feel like he has some weakness in his legs that is likely unrelated. Orthospine consulted, Dr. Joiner - avoid lifting more than 5 lbs PT / OT - recommend return home (4) Elevated troponin: Peak at 27, this appears chronic for the patient likely due to poor renal clearance with CKD EKG without signs of ischemia Patient denies chest pain (5) CKD (chronic kidney disease): Baseline creatinine~3.5 - close monitoring with continued diuresis, slight increase will go back to home diuretic dosing also with anemia of chronic diseasehemoglobin stable Plan Chronic stable medical conditions: * History of DVTcontinue Eliquis * CAD with stents - continue plavix, statin. Continue coreg * BPH - continue finasteride * mental health - continue zoloft Dispo: discharge to home today updated by phone 07/18 Notes For Next Care Provider Concern for patient over oxygenating at home. Also concern for severe pulmonary HTN - no record of right heart cath found. will leave tapering of steroids to pulmologist discretion. Admission HPI Per Admitting Provider This is a 79-year-old male who was recently hospitalized approximately a month ago for increasing shortness of breath. He was diuresed at that time and sent home. Over the last 2 weeks she has had increasing shortness of breath and weakness. His oxygen was titrated by his primary care physician per the patient and family from 4 L to 5 L approximately 2 weeks ago. Today his breathing and weakness was to the degree where he was having trouble getting around at home and therefore was brought to the ER for further evaluation and treatment. Laboratory studies were significant for anemia which is chronic he is on Procrit. This is anemia of chronic disease hemoglobin stable at 8.0. CKD was identified with creatinine approximately 3.5. Chest x-ray was positive for pulmonary vascular congestion/CHF. Troponin was found to be mildly elevated at 27.8 however review of the medical records demonstrates this patient has a chronic troponinemia ranging from 20-40. Patient course in the ER he received nebulizer treatments and a milligram of IV Bumex. We are called admit the patient for further evaluation and treatment for decompensated CHF and acute on chronic hypoxemic respiratory failure. Discharge Exam General: NAD, VS as above Resp: normal respiratory effort, low lung volume, no wheezing CV: RRR, no murmur, Abd: normal bowel sounds, non tender, no hepatosplenomegaly Extremities: Moves all extremities, 3+ pitting edema Neuro: A&O x3, Discharge Plan Discharge Items Patient Disposition: Home - Self-Care Reason For Visit: CHF Discharge Diagnosis: Shortness of breath ILD Activity: As commented below Activity Comment: small periods of excertion, take frequent breaks Lifting: No more than 5 pounds Driving/Machine Use: No limitations Weightbearing: Full weightbearing Non-emergency contact: Primary Care Provider and Business Supervisor Call non-emergency contact if: you have any medication questions and your symptoms worsen Follow-up/Referrals: Litzy Baez PA-C [Physician Environmental Permitting Specialist] - (follow up in 1-2 weeks ) Vinod Pang [Primary Care Provider] - Ryley Gutiérrez D.O. [Outside Practitioners] - (Follow up in one week ) Diet: Heart Healthy Addtl Attending Provider Instructions: Mr. Munguia, You were hospitalized after having worsening shortness of breath. This is multifactoral - slight fluid overload, your chronic lung disease and using too much oxygen at home. As we discussed, using too much oxygen can be harmful to people with chronic lung disease. Recommendations: - Follow up with your environmental manager HORACIO, you may need to be on daily inhalers - continue prednisone 20mg daily (you can split it to 10mg twice a day if you like, but steroids can impact sleep) until you are seen by your pulnologist and they can further wean - continue to weight yourself each morning, call your surgical orderly if you gain more than 2 lbs in a day or 5 lbs in a week - continue bumex 1mg every day (this is what your aluminum boat assembly supervisor recommended last month), following a low salt diet - use your incentive spirometer - at least 4 times a day, 10 times each session. IF YOU NOTICE YOUR BREATHING IS WORSE, USE THIS MORE OFTEN - oxygen recommendations: 1L at rest and sleep, 2L with activity. DO NOT INCREASE YOUR OXYGEN UNTIL THE READING ON THE PULSE OXIMETER IS LESS THAN 88% for one minute. Your goal is to be around 92-94%, for your lungs, we do not need you to be at 100% - No lifting greater than 5 lbs, this is very restrictive (for example a gallon of milk is heavier than 5 lbs) - follow up with you PCP in one week - take frequent breaks with your activity. With your chronic kidney disease, anemia and COPD you have alot of things working against you to get good oxygen delivered to your body. - follow up with CHF clinic CONTACT YOUR PRIMARY CARE PROVIDER if you experience any of the following: Shortness of breath or difficulty breathing Fevers or chills Feeling tired with normal activity or experiencing dizziness or fainting Difficulty following your treatment plan, or difficulty taking medications CALL 911 OR GO TO THE EMERGENCY DEPARTMENT if you experience any of the following: Severe abdominal pain or nausea/vomiting Severe chest pain, or chest pain that radiates (moves) to your jaw or arm Sudden, severe shortness of breath or difficulty breathing Thank you for allowing us to participate in your care. Pending Studies at Discharge: No Stand-Alone Forms: [facility], Smoking Cessation Medications and DC Order Prescriptions: New prednisone 20 mg Tablet 20 mg PO QAM 20 Days Qty: 20 0RF Continued atorvastatin [Lipitor] 80 mg Tablet 80 mg PO HS Qty: 0 Procrit 40,000 unit/mL solution 40,000 unit subcut .COMPLEX Qty: 1 0RF Rx Instructions: 40,000 units subcutaneously Monthly; carvedilol 25 mg tablet 25 mg PO BID Qty: 180 3RF Rx Instructions: must administer with a meal/food clopidogrel 75 mg tablet 75 mg PO QAM (DME) Portable Oxygen [facility] [place] See Rx Instructions .MEDSUPPLY Rx Instructions: Oxygen 3 liters continuous via nasal cannula at bedtime with portable concentrator. ZENOBIA 99 (DME) nebulizers [Aeroneb Go Nebulizer] Mis See Rx Instructions .MEDSUPPLY Qty: 1 0RF Rx Instructions: With tubing and supplies. J44.9. J45.9. Eliquis 5 mg tablet 5 mg PO BID Qty: 180 3RF finasteride 5 mg tablet 5 mg PO QAM ipratropium-albuterol 0.5 mg-3 mg(2.5 mg base)/3 mL solution for nebulization 3 ml INHALATION DIRECTED PRN (Reason: Other) sertraline 100 mg tablet 100 mg PO DAILY B12 2,000 mcg PO DAILY Rx Instructions: OTC sulfamethoxazole-trimethoprim 800-160 mg tablet 1 tab PO .SUN,SUN,FRIDAYS Rx Instructions: sunday, sun, and fridays mycophenolate mofetil 500 mg tablet 500 mg PO BID Rx Instructions: 500 mg po bid for 30 days, then 1000 mg bid. pantoprazole 40 mg tablet,delayed release (DR/EC) 40 mg PO DAILY oxycodone-acetaminophen [Endocet] 7.5-325 mg tablet 1 tab PO DIRECTED PRN (Reason: Pain) bumetanide 1 mg tablet 1 mg PO UD Rx Instructions: they're not sure if pt does 1 mg or 0.5. 1 mg script was filled on 07/15 90 day supply- 1 mg po daily Discontinued prednisone 10 mg tablet 10 mg PO BID Discharge Orders: Discharge Order (Routine); Ordered 07/19/24 Ordered By: Funmi Martinez Admission Data Admit Date/Time: 07/17/24 11:52 Attending Provider: Red Matthew Admit Provider: Rolando Heath Primary Care Provider: Vinod Pang Other Providers: Rolando Heath; Emre Joiner Other Interventions: Discharge Summary Assessment (RN) Last Done: 07/19/24 12:19 Hospital Stay Data Consultations 07/17/24 11:11 ED Decision to Admit Stat 07/17/24 18:16 Consult Orthopedic Spine Surgery Routine Diagnostic Imagining Performed Chest X-Ray 07/17/24 09:56 XR chest 1V portable HISTORY: 79 years-old Male Chest pain, nonspecific COMPARISON: 06/10/2024 TECHNIQUE: AP view of the chest FINDINGS: Cardiac silhouette is enlarged. Hypoinflation with bronchovascular crowding. Left IJ Cctfbl-t-Scwf catheter is unchanged. Pulmonary vascular congestion. No pneumothorax or airspace consolidation. Trace pleural effusions. IMPRESSION: 1. Hypoinflation. 2. Cardiomegaly with pulmonary vascular congestion and trace pleural effusions. ACT 112: Negative or not required by law. The above report was generated using voice recognition software. It may contain grammatical, syntax or spelling errors. Electronically signed by: Usama Villarreal M.D. 07/17/2024 11:[address] 07/17/24 11:54 CT chest diagnostic wo con CT DOSE: 705.73 mGy.cm CLINICAL HISTORY: 79 years-old Male with SOB, Hx lymphoma. Acute shortness of breath TECHNIQUE: Multiaxial CT images of the chest were performed without contrast. A dose lowering technique was utilized adhering to the principles of ALARA. COMPARISON: Chest CT 10/10/2023, May 15, 2022. FINDINGS: Unremarkable thyroid. No pathologically enlarged lymph nodes. Moderate cardiomegaly without pericardial effusion. Extensive coronary artery calcifications. Atherosclerosis of the thoracic aorta without aneurysm. Mild dilation of the pulmonary artery measuring up to 3.2 cm may represent pulmonary arterial hypertension. There is no pneumothorax, pleural effusion or airspace consolidation typical for pneumonia. Bilateral mosaic attenuation with intermixed ground-glass densities and subpleural predominant multilobar subpleural reticulation. Mild bibasilar prominent bronchiectasis with mild biapical subpleural cystic change. No significant basilar honeycombing. There are several scattered mostly subpleural solid nodules measuring up to 3 mm, which are likely benign. Stable 4 mm solid nodule of the right lung apex on image 53 series 4, which is of low clinical suspicion. Subpleural spiculated and irregular solid nodule of the left upper lobe on image 72 series 4 measures 10 x 9 mm. This nodule measured 1.5 x 1.1 cm on the 2021 comparison. Calcified granuloma of the lingula. Stable 5 mm nodule of the lingula, image 119. No acute upper abdominal abnormality. Unchanged 5 cm calcified focus of the hepatic dome. Severe fracture T5 with 4 mm retropulsion. Minimal paravertebral edema. This is new from prior. IMPRESSION: 1. T5 burst fracture with mild retropulsion resulting in minimal central canal stenosis is new from 10/10/2003, likely acute or subacute. 2. Unchanged appearance of the chronic interstitial lung disease. 3. No pleural effusion or airspace consolidation typical for pneumonia. 4. Stable 10 mm subpleural left upper lobe nodule which has decreased in size from the 2021 study. 5.Additional scattered subcentimeter solid pulmonary nodules are stable and likely benign measuring up to 5 mm. ACT 112: Negative or not required by law. Electronically signed by: Usama Villarreal M.D. 07/17/2024 4:[address] 07/18/24 06:11 CT thoracic spine wo con HISTORY: 79 years-old Male fracture acute mid back pain. COMPARISON: Chest CT 07/17/2024, and also 10/10/2023. TECHNIQUE: Multiple axial CT images of the thoracic spine were obtained without IV contrast. FINDINGS: Demineralized appearance of the bones. Multilevel degenerative changes including predominantly mild and ixnq-pu-froleijp intervertebral disc space narrowing and spondylotic spurring with moderate facet arthrosis. There is mild kyphosis centered at the T5 burst fracture. There is up to 70% vertebral body height loss anteriorly with vacuum disc phenomenon at T5-T6. Retropulsion measures up to 3 mm. There is mild associated central canal stenosis at this interspace. Mild paravertebral edema. No definite fracture extension into the posterior elements. No additional acute fracture or subluxation. There is suboptimal evaluation of the central canal and neural foramen by CT technique. There is severe bilateral T5-T6 neural foraminal stenosis. Intrathoracic findings are dictated separately on yesterday's chest CT. Trace pleural effusions with mild bibasilar atelectasis. Cardiomegaly. Calcified right hepatic lobe lesion. Cyst with layering milk of calcium within the right kidney. Nonobstructing left nephrolithiasis. IMPRESSION: 1. Pjfwt-uj-bfbxrsud T5 burst fracture with minimal retropulsion. There is resultant mild central canal stenosis with severe bilateral foraminal narrowing at T5-T6. 2. Demineralized appearance of the bones with vhcm-mg-hmmfrllf intervertebral disc space narrowing and moderate facet arthrosis. ACT 112: Negative or not required by law. The above report was generated using voice recognition software. It may contain grammatical, syntax or spelling errors. Dictated: 07/18/2024 7:09 AM Transcribed: 07/18/2024 8:34 AM [facility] [id number] [facility] Electronically signed by: Usama Villarreal M.D. 07/18/2024 12:07 PM Discharge Instructions Given to Patient (Per Discharging Provider) Mr. Munguia, You were hospitalized after having worsening shortness of breath. This is multifactoral - slight fluid overload, your chronic lung disease and using too much oxygen at home. As we discussed, using too much oxygen can be harmful to people with chronic lung disease. Recommendations: - Follow up with your environmental manager HORACIO, you may need to be on daily inhalers - continue prednisone 20mg daily (you can split it to 10mg twice a day if you like, but steroids can impact sleep) until you are seen by your pulnologist and they can further wean - continue to weight yourself each morning, call your surgical orderly if you gain more than 2 lbs in a day or 5 lbs in a week - continue bumex 1mg every day (this is what your aluminum boat assembly supervisor recommended last month), following a low salt diet - use your incentive spirometer - at least 4 times a day, 10 times each session. IF YOU NOTICE YOUR BREATHING IS WORSE, USE THIS MORE OFTEN - oxygen recommendations: 1L at rest and sleep, 2L with activity. DO NOT INCREASE YOUR OXYGEN UNTIL THE READING ON THE PULSE OXIMETER IS LESS THAN 88% for one minute. Your goal is to be around 92-94%, for your lungs, we do not need you to be at 100% - No lifting greater than 5 lbs, this is very restrictive (for example a gallon of milk is heavier than 5 lbs) - follow up with you PCP in one week - take frequent breaks with your activity. With your chronic kidney disease, anemia and COPD you have alot of things working against you to get good oxygen delivered to your body. - follow up with CHF clinic CONTACT YOUR PRIMARY CARE PROVIDER if you experience any of the following: Shortness of breath or difficulty breathing Fevers or chills Feeling tired with normal activity or experiencing dizziness or fainting Difficulty following your treatment plan, or difficulty taking medications CALL 911 OR GO TO THE EMERGENCY DEPARTMENT if you experience any of the following: Severe abdominal pain or nausea/vomiting Severe chest pain, or chest pain that radiates (moves) to your jaw or arm Sudden, severe shortness of breath or difficulty breathing Thank you for allowing us to participate in your care. Supervising Physician Co-Signing Physician Notes Attending Attestation and Discharge Note: Pt seen/examined, chart reviewed, discharge care plan d/w JOSIE Martinez. I agree w/ the muniz components of her discharge documentation. 79yo male with numerous medical problems including chronic hypoxic respiratory failure, ILD, h/o lymphoma, chronic systolic CHF, COPD, CKD stage 4. Presented with worsening shortness of breath. Imaging c/w decompensated CHF in the setting of chronic ILD. Was diuresed appropriately. Closer to discharge underwent 2-step ambulatory O2 testing -- this showed need for 1 L NC O2 with rest/sleep, 2 L NC O2 with activity. He will need close f/u with his PCP, surgical orderly, and environmental manager for his complex cardiopulmonary diseases. Discharge exam: gen - sitting at side of bed, NAD neck - JVD present mouth - MMM heart - irregular, s1 s2, 2/6 systolic murmur LSB lungs - faint b/l fine basilar rales, scattered wheezes b/l, no increased work of breathing abd - soft NT ND BS+ ext - 1+ edema b/l, pulses 2+ b/l He will continue his usual prednisone, Eliquis, and mycophenolate. Red Matthew MD Total Time Total Time Spent Total Time Spent (In Minutes): Time spent day of discharge 40 minutes including direct patient care, medication reconciliation, documentation, review of labs and images, and coordination of care. Coding Level of Care Code 75879 INP/OBS DISCH >30 MIN Diagnoses CHF exacerbation I50.9 Heart failure type: unspecified COPD (chronic obstructive pulmonary disease) J44.9 COPD type: unspecified COPD Closed stable burst fracture of fifth thoracic vertebra S22.051A Elevated troponin R79.89 CKD (chronic kidney disease) N18.9 Chronic kidney disease stage: unspecified stage
[2024-07-19 12:22] VITALS: PULSE 85
[2024-07-20] MEDS ORDERED: BUMETANIDE 1 MG in SYRINGE 0 ML IV SCH (09:00)
== END 2024-07-19 14:07 | disposition home or self-care (01) | DRG 291 ==
LOC: ED 09:39 → 2S 11:52 → SUATTDRO 11:52 → 2S 14:27

== ENCOUNTER 2024-09-07 13:50 | Inpatient (IN) ==
--- NOTE | 2024-09-07 14:31 | Emergency Department Note ---
Impression & Plan Acute exacerbation of chronic obstructive pulmonary disease (COPD), Acute hypercapnic respiratory failure ED Provider Note Name: MEG FINK Age: 79 Sex: Male Arrives Via: Walk-In Informant: Patient, daughter, ED Provider: Sergei Lopez MD Chief Complaint: Shortness of breath Impression: As per impressions above Medical Decision Makin-year-old gentleman with a long history of COPD on chronic oxygen at home along with renal disease though not on dialysis at this time. Patient arrives for evaluation of worsening shortness of breath over the last several days. He recently decreased his prednisone from 20 to 15 mg daily. On arrival patient is quite dyspneic with very poor lung sounds throughout. He was given hour-long nebulizer, IV Decadron, IV magnesium with some improvement in his breathing. Dyspnea is significantly improved. Chest x-ray reveals bilateral lower lobe infiltrates versus atelectasis. He is not having fever or white blood cell count elevation I do not feel this is sepsis. It is more likely that he is fluid overloaded. Discussed with hospitalist for further evaluation. Given patient is awake alert oriented and breathing more improved we will hold off on BiPAP at this time and defer further workup to hospitalist as well as decision/discussion on possible antibiotic management. Triage/Nursing Notes reviewed by Me Differential:Reactive airway disease, pneumonia, pneumothorax, COPD, CHF, infections, cardiac ischemia, pulmonary embolism, musculoskeletal, gastrointestinal, as well as other pathologies. Vital Signs: reviewed and remarkable for no significant abnormalities Interventions: Decadron 10 mg IV, magnesium 1 g IV, DuoNeb 1 hour neb Labs:ED labs Reviewed by me and remarkable for significant hypercapnia Imagin view chest x-ray bilateral lower lobe infiltrates versus atelectasis as per my interpretation. EKG:As per my interpretation. Indication shortness of breath. Poor baseline. A-fib at 83 beats minute with a QTc of 423. There is no ischemia appreciated. Similar to EKG of 07/17/2024 Cardiac/Tele Monitoring: Cardiac Monitoring: An Order was placed for continuous cardiac monitoring. The monitor shows a rate of 80 with a afib rhythm. Consults:[facility] [place] will further evaluate and manage patient Plan: Disposition:Hospitalization. Condition: Good History of Present Illness: 79-year-old male arrives for evaluation of worsening shortness of breath. Patient with increasing shortness of breath from his pretty severe baseline shortness of breath over the last few days. Is associated with dyspnea even at rest. Also noting increasing swelling of his right arm and right leg. This is consistent with his previous COPD exacerbations but also has a history of heart failure and hyperkalemia. Patient notes he just does not feel very well either. Patient had been on 20 mg of prednisone until about a week ago when it was decreased to 15 mg. Patient notes he is supposed to be using 1 L nasal cannula at night and 2 L during the day. Due to his worsening shortness of breath he is increased his nasal cannula to 4 L at all times. Patient also notes he has been using his nebulizer without any improvement. Past Medical History:See Below Home Medications:See Below Allergies:See Below Vitals:Blood Pressure: 146/85, Pulse 78, RR 18, T 36.2C, O2 97% on 4L NC Physical Exam: GENERAL: Patient is chronically unwell appearing appearing and in moderate distress. Cushingoid appearance RESPIRATORY: Very tight lung sounds throughout with minimal expiratory wheeze appreciated. CARDIOVASCULAR: Irregular heart rate.No murmur appreciated. GASTROINTESTINAL: Abdomen soft, non-tender, no peritonitis. BACK: No midline tenderness, no CVA tenderness EXTREMITIES: Normal motion all extremities, no cyanosis, edema right hand and right leg edema. NEUROLOGIC: Alert and oriented. No focal neurologic deficits appreciated SKIN: No rash, no jaundice, no diaphoresis. PSYCH: Appropriate GCS: 15 ED Course: Times/Reassessments: Patient's breathing is improved and he appears comfortable on nebulizer. Sergei Lopez MD Past Med/Surg History Problem List (Updated 09/07/24 @ 16:32 by Sergei Lopez MD) Acute hypercapnic respiratory failure (Acute) Acute exacerbation of chronic obstructive pulmonary disease (COPD) (Acute) Encounter for pre-operative examination Dyspnea on minimal exertion (Acute) Antiplatelet or antithrombotic long-term use Recurrent UTI Hypospadias Right hydrocele Hematuria (Acute) Mild mitral regurgitation Hypersensitivity pneumonitis presumptively diagnosed- treated with steroid x 12 months Chewing tobacco nicotine dependence Ex-smoker Allergic rhinitis with postnasal drip Abnormal chest CT COPD with emphysema Multiple pulmonary nodules Vitamin D deficiency Hypoxemia GERD (gastroesophageal reflux disease) Pulmonary nodule PAD (peripheral artery disease) Secondary hyperparathyroidism of renal origin Central venous catheter in place, permanent Depression Sinus bradycardia ESRD (end stage renal disease) 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 Neuropathy Hypercholesteremia MAEGAN (obstructive sleep apnea) Peripheral vascular disease Hypercalcemia (Acute) Liver mass (Acute) Medical History (Updated 09/07/24 @ 16:32 by Sergei Lopez MD) Hx of sinus bradycardia Mild mitral regurgitation Mild aortic stenosis No aortic stenosis noted on 04/07/24 ECHO Restrictive lung disease Chronic respiratory failure with hypoxia currently on continuous oxygen 1-4 lpm EGEGIK (hard of hearing) Hx of fracture of nose early 08/2024, 2/2 to fall; "healing up just fine now" Weakness of both legs Port-A-Cath in place placed in 2018, "no longer works" Multiple pulmonary nodules PAD (peripheral artery disease) Hypercholesteremia GERD (gastroesophageal reflux disease) Dyspnea on minimal exertion Per pulm- likely multifactorial due to combinations of his underlying lung disease, obesity, deconditioning, possible myopathy due to long-term steroid use, as well as heart failure and kidney failure. B-cell lymphoma dx ~2019 or before, in liver, chemo tx. On home oxygen therapy 1-4L continuous, via n/c Closed stable burst fracture of fifth thoracic vertebra f/u chiropractor recently COPD (chronic obstructive pulmonary disease) w/emphysema Paroxysmal atrial fibrillation f/u [facility] cardio on Eliquis HFrEF (heart failure with reduced ejection fraction) f/u mariah hernandez cardio EF 40-44% on 04/2024 ECHO CHF exacerbation (admitted to [facility] 07/17/24-07/19/24) Chronic kidney disease, stage IV (severe) f/u dr. perry, [facility] – [place] ILD (interstitial lung disease) Anemia Chronic anticoagulation Cardiomyopathy Situational depression Left leg DVT ~ Anorexia Weight loss Pneumonia due to COVID-19 virus 2020, admitted to [facility] "almost intubated"; "feels lung damage is due to him having covid" COVID-19 hx, 2020, admitted to [place] "and was almost intubated, still feels that the damage to the lungs is from covid" Osteoarthritis Chronic back pain Hemodialysis patient last dialysis February 11, 2019; nephrology has since stopped dialysis follows with dr perry de neph. Sleep apnea non-compliant; currently on continuous oxygen 1-4 lpm Hearing deficit Peripheral vascular disease right LE femoral femoral bypass Peripheral neuropathy Scrotal swelling "ongoing" Coronary artery disease s/p stent in Surgical History S/P arteriovenous (AV) fistula creation 2018, rt arm/wrist S/P arteriovenous (AV) fistula repair 05/2023, rt arm/wrist History of esophagogastroduodenoscopy (EGD) History of colonoscopy History of heart artery stent , unsure which hospital, x1 stent; f/u [facility] cardio History of cardiac cath , unsure where, x1 stent; f/u mariah zamora S/P femoral-femoral bypass surgery right leg H/O vascular surgery removal DVT History of lumbar discectomy L4-L5, in History of umbilical hernia repair Family History Mother FHx: lung cancer FHx: uterine cancer Other Allergy Cancer Diabetes Heart disease Lung cancer Lung disease Denies family history of Tuberculosis Emphysema of lung Asthma Social History Smoking Status: Former smoker Tobacco Type: Smokeless Tobacco (Dip or Chew) packs per day: 1; Second Hand Exposure: Yes (hx growing up); Do You Dip or Chew Tobacco: Yes; Hx Alcohol Use: Yes Alcohol type: beer Hx Substance Use: No Preferred Language: Faroese Communication Ability: Effective [employer] Required: No Beliefs That Will Affect Care: None Current Living Situation: Spouse Current Living Situation Comment: Andrew Feels Safe at Home: Yes Assistive Devices: Glasses, Oxygen - Continuous and Walker Allergies Allergies Allergy/AdvReac Type Severity Reaction Status Date / Time No Known Allergies Allergy Verified 09/07/24 16:25 Home Meds Home Medications Medication Instructions Recorded Confirmed atorvastatin 80 mg tablet (Lipitor) 80 mg PO HS #0 tabs 12/21/14 08/29/24 finasteride 5 mg tablet 5 mg PO QAM 12/04/18 08/29/24 clopidogrel 75 mg tablet 75 mg PO QAM 09/15/21 08/29/24 Portable Oxygen 12/11/23 08/21/24 ipratropium 0.5 mg-albuterol 3 mg 3 ml inhalation DIRECTED PRN 06/10/24 08/29/24 (2.5 mg base)/3 mL nebulization Other soln sertraline 100 mg tablet 100 mg PO QAM 06/10/24 08/29/24 bumetanide 1 mg tablet 1 mg PO QAM 07/17/24 08/29/24 mycophenolate mofetil 500 mg tablet 500 mg PO BID 07/17/24 08/29/24 oxycodone-acetaminophen 7.5 mg-325 1 tab PO UD PRN Pain 07/17/24 08/29/24 mg tablet (Endocet) pantoprazole 40 mg tablet,delayed 40 mg PO QAM 07/17/24 08/29/24 release sulfamethoxazole 800 1 tab PO UD 07/17/24 08/29/24 mg-trimethoprim 160 mg tablet cyclobenzaprine 5 mg tablet 5 mg PO QAM 08/29/24 08/29/24 Previous Rx's Medication Instructions Recorded epoetin neptali 40,000 unit/mL 40,000 unit subcut .COMPLEX #1 mL 03/20/23 injection solution (Procrit) nebulizers (Aeroneb Go Nebulizer) #1 ea 09/19/23 apixaban 5 mg tablet (Eliquis) 5 mg PO BID #180 tabs 12/11/23 carvedilol 25 mg tablet 25 mg PO BID #180 tabs 04/21/24 prednisone 10 mg tablet 10 mg PO DAILY #60 tabs 08/25/24 Results & Data (ED) Vital Signs Vital Signs - 24 hr 09/07/24 13:55 09/07/24 14:47 Temperature 36.2 C L Temperature Source Skin Pulse Rate 78 73 Respiratory Rate 18 Blood Pressure 146/85 H Blood Pressure Mean 105 Pulse Oximetry 97 Oxygen Delivery Method Nasal Cannula Oxygen Flow Rate 4 Sepsis Recent Fever Within 48 Hours No Sepsis New/Unexplained Change in Mental Status N/A Sepsis Action Taken by Nursing No Action Required Laboratory Data 09/07/24 14:13 09/07/24 14:13 Lab Results 09/07/24 09/07/24 09/07/24 Range/Units 14:12 14:13 15:04 WBC 8.34 (4.8-10.8) K/ul RBC 2.92 L (4.70-6.10) M/uL Hgb 8.9 L (14.0-18.0) g/dl Hct 31.7 L (42.0-52.0) % MCV 108.6 H (80.0-100.0) fL MCH 30.5 (25.0-34.0) pg MCHC 28.1 L (32.0-36.0) g/dL RDW Std Deviation 62.5 H (36.4-46.3) fL RDW Coeff of [place] 15.6 H (11.5-14.5) % Plt Count 141 (130-400) K/uL MPV 10.0 (9.4-12.4) fL Immature Gran % (Auto) 1.0 % Neut % (Auto) 91.6 % Lymph % (Auto) 3.1 % [place] % (Auto) 4.3 % Eos % (Auto) 0.0 % Baso % (Auto) 0.0 % Neut # (Auto) 7.64 H (1.40-6.50) K/uL Lymph # (Auto) 0.26 L (1.20-3.40) K/uL [place] # (Auto) 0.36 (0.11-0.59) K/uL Eos # (Auto) 0.00 (0.00-0.50) K/uL Baso # (Auto) 0.00 (0.00-0.20) K/uL Immature Gran # (Auto) 0.08 (0.01-0.20) K/uL Basophilic Stippling Occasional VBG pH 7.21 L (7.36-7.41) VBG pCO2 88 H (38-50) mmHg VBG pO2 28 mmHg VBG HCO3 35 mmol/L VBG O2 Saturation < 60.0 % VBG Base Excess 4.2 mEq/L Sodium 142 (136-145) mmol/L Potassium 5.0 (3.5-5.1) mmol/L Chloride 105 (98-107) mmol/L Carbon Dioxide 32 (21-32) mmol/L Anion Gap 5 (3-11) BUN 72 H (6-23) mg/dl Creatinine 3.41 H (0.6-1.4) mg/dl Est Cr Clr Drug Dosing Not Reportable eGFR 17.57 BUN/Creatinine Ratio 21.1 H (10-20) Glucose 133 H (70-99(Fasting)) mg/dl Calcium 8.3 L (8.6-10.3) mg/dl Magnesium 2.4 (1.7-2.4) mg/dl Total Bilirubin 0.3 (0.2-1.0) mg/dl Direct Bilirubin 0.1 (0-0.2) mg/dl AST 13 (13-39) U/L ALT 32 (7-52) U/L Alkaline Phosphatase 40 (34-104) U/L Troponin I High Sens 51.8 H* (0-20) pg/ml B-Natriuretic Peptide 845 H (0-100) pg/ml Total Protein 5.2 L (6.0-8.3) gm/dl Albumin 3.4 (3.4-5.0) gm/dl Procalcitonin 0.32 (0-0.5) ng/ml SARS-CoV-2 (PCR) (Negative) Influenza Type A (PCR) (Neg) Influenza Type B (PCR) (Neg) RSV (RT-PCR) (Neg) 09/07/24 Range/Units 15:12 WBC (4.8-10.8) K/ul RBC (4.70-6.10) M/uL Hgb (14.0-18.0) g/dl Hct (42.0-52.0) % MCV (80.0-100.0) fL MCH (25.0-34.0) pg MCHC (32.0-36.0) g/dL RDW Std Deviation (36.4-46.3) fL RDW Coeff of [place] (11.5-14.5) % Plt Count (130-400) K/uL MPV (9.4-12.4) fL Immature Gran % (Auto) % Neut % (Auto) % Lymph % (Auto) % [place] % (Auto) % Eos % (Auto) % Baso % (Auto) % Neut # (Auto) (1.40-6.50) K/uL Lymph # (Auto) (1.20-3.40) K/uL [place] # (Auto) (0.11-0.59) K/uL Eos # (Auto) (0.00-0.50) K/uL Baso # (Auto) (0.00-0.20) K/uL Immature Gran # (Auto) (0.01-0.20) K/uL Basophilic Stippling VBG pH (7.36-7.41) VBG pCO2 (38-50) mmHg VBG pO2 mmHg VBG HCO3 mmol/L VBG O2 Saturation % VBG Base Excess mEq/L Sodium (136-145) mmol/L Potassium (3.5-5.1) mmol/L Chloride (98-107) mmol/L Carbon Dioxide (21-32) mmol/L Anion Gap (3-11) BUN (6-23) mg/dl Creatinine (0.6-1.4) mg/dl Est Cr Clr Drug Dosing eGFR BUN/Creatinine Ratio (10-20) Glucose (70-99(Fasting)) mg/dl Calcium (8.6-10.3) mg/dl Magnesium (1.7-2.4) mg/dl Total Bilirubin (0.2-1.0) mg/dl Direct Bilirubin (0-0.2) mg/dl AST (13-39) U/L ALT (7-52) U/L Alkaline Phosphatase (34-104) U/L Troponin I High Sens (0-20) pg/ml B-Natriuretic Peptide (0-100) pg/ml Total Protein (6.0-8.3) gm/dl Albumin (3.4-5.0) gm/dl Procalcitonin (0-0.5) ng/ml SARS-CoV-2 (PCR) NEGATIVE (Negative) Influenza Type A (PCR) Negative (Neg) Influenza Type B (PCR) Negative (Neg) RSV (RT-PCR) Negative (Neg) Administered Medications Discontinued Medications Albuterol (Albut/Ipratrop 3mg/0.5mg Neb 3 Ml Vial) 12 ml NEB ONE ONE; Protocol Stop: 09/07/24 14:24 Last Admin: 09/07/24 15:15 Dose: 12 ml Documented By: MR Dexamethasone Sodium Phosphate (DexamethasonePf 10 Mg/Ml Vial) 10 mg IV NOW ONE Stop: 09/07/24 14:24 Last Admin: 09/07/24 15:14 Dose: 10 mg Documented By: MR Magnesium Sulfate/Dextrose (Magnesium Sulfate / D5w) 1 gm in 100 mls @ 100 mls/hr IV NOW STA Stop: 09/07/24 15:22 Last Admin: 09/07/24 15:15 Dose: 100 mls/hr Documented By: MR Imaging Data Radiologist's Impression: Chest X-Ray 09/07/24 14:23 EXAM: Radiograph of the Chest 1 View INDICATION: Shortness of breath. TECHNIQUE: Frontal view of the chest. COMPARISON: 08/26/2024 FINDINGS: Lungs and pleural spaces: There is increased consolidation in the left lung base with generalized shallow inspiration and vascular crowding. New small focus of consolidation in the medial right base. Increase small left pleural effusion. No pneumothorax. Heart: Shape and configuration within normal limits allowing for technique. Mediastinum: Normal contour. Bones/joints: No fracture, erosion or dislocation. Soft tissues: No abnormality noted. No radiopaque foreign body noted. Tubes, lines and devices: Left internal jugular central venous port terminates at the jugular subclavian junction. Upper abdomen: No abnormality noted. IMPRESSION: 1. New right and increased left basilar atelectasis or pneumonia and increased small left pleural effusion. 2. Lines and tubes as above. ACT 112: Negative or not required by law. Electronically signed by Kendra March 09-07-2024 3:21 PM Discharge Plan Visit Data Chief Complaint: Shortness of Breath/Dyspnea Stated Complaint: LETHARGIC, NO APPETITE, SOB ED Provider: Sergei Lopez Discharge Problem: Acute exacerbation of chronic obstructive pulmonary disease (COPD), Acute hypercapnic respiratory failure Forms Stand Alone Forms: My [facility] Rx #2 Prescriptions Prescriptions: No Action atorvastatin [Lipitor] 80 mg Tablet 80 mg PO HS Qty: 0 Procrit 40,000 unit/mL solution 40,000 unit subcut .COMPLEX Qty: 1 0RF Rx Instructions: 40,000 units subcutaneously Monthly; carvedilol 25 mg tablet 25 mg PO BID Qty: 180 3RF Rx Instructions: must administer with a meal/food clopidogrel 75 mg tablet 75 mg PO QAM (DME) Portable Oxygen Misc See Rx Instructions .MEDSUPPLY Rx Instructions: Oxygen 3 liters continuous via nasal cannula at bedtime with portable concentrator. ZENOBIA 99 (DME) nebulizers [Aeroneb Go Nebulizer] Misc See Rx Instructions .MEDSUPPLY Qty: 1 0RF Rx Instructions: With tubing and supplies. J44.9. J45.9. Eliquis 5 mg tablet 5 mg PO BID Qty: 180 3RF prednisone 10 mg tablet 10 mg PO DAILY Qty: 60 2RF Rx Instructions: Take 15 mg daily for 3 weeks starting 08/25/2024, then 10 mg daily for 3 weeks then 5 mg daily for 3 weeks then 5 mg every other day until pulmonary follow-up finasteride 5 mg tablet 5 mg PO QAM cyclobenzaprine 5 mg tablet 5 mg PO QAM ipratropium-albuterol 0.5 mg-3 mg(2.5 mg base)/3 mL solution for nebulization 3 ml INHALATION DIRECTED PRN (Reason: Other) sertraline 100 mg tablet 100 mg PO QAM sulfamethoxazole-trimethoprim 800-160 mg tablet 1 tab PO UD Rx Instructions: sunday, sun, and fridays mycophenolate mofetil 500 mg tablet 500 mg PO BID Rx Instructions: 500 mg po bid for 30 days, then 1000 mg bid. pantoprazole 40 mg tablet,delayed release (DR/EC) 40 mg PO QAM oxycodone-acetaminophen [Endocet] 7.5-325 mg tablet 1 tab PO UD PRN (Reason: Pain) bumetanide 1 mg tablet 1 mg PO QAM Referrals Referrals: Vinod Pang [Primary Care Provider] -
[2024-09-07 15:07] LABS: Basophilic Stippling Occasional; Hematocrit (blood only) 31.7 % (42.0-52.0); Hemoglobin 8.9 g/dl (14.0-18.0); Immature Granulocytes # (auto) 0.08 K/uL (0.01-0.20); Lymphocytes # (auto) 0.26 K/uL (1.20-3.40); Lymphocytes % (auto) 3.1 %; Mean Corpuscular Hemoglobin 30.5 pg (25.0-34.0); Mean Corpuscular Hgb Conc 28.1 g/dL (32.0-36.0); Mean Corpuscular Volume 108.6 fL (80.0-100.0); Monocytes # (auto) 0.36 K/uL (0.11-0.59); Monocytes % (auto) 4.3 %; Neutrophils # (auto) 7.64 K/uL (1.40-6.50); Neutrophils % (auto) 91.6 %; Platelet Count 141 K/uL (130-400); RDW Coefficient of Variation 15.6 % (11.5-14.5); RDW Standard Deviation 62.5 fL (36.4-46.3); Red Blood Count 2.92 M/uL (4.70-6.10); White Blood Count 8.34 K/ul (4.8-10.8)
[2024-09-07 15:10] LABS: Alanine Aminotransferase 32 U/L (7-52); Albumin Level 3.4 gm/dl (3.4-5.0); Alkaline Phosphatase 40 U/L (34-104); Anion Gap 5 (3-11); Aspartate Aminotransferase 13 U/L (13-39); BUN Creatinine Ratio 21.1 (10-20); Bilirubin Direct 0.1 mg/dl (0-0.2); Bilirubin,Total 0.3 mg/dl (0.2-1.0); Blood Urea Nitrogen 72 mg/dl (6-23); Calcium 8.3 mg/dl (8.6-10.3); Carbon Dioxide 32 mmol/L (21-32); Chloride 105 mmol/L (98-107); Glucose 133 mg/dl (70-99(Fasting)); Magnesium 2.4 mg/dl (1.7-2.4); Sodium 142 mmol/L (136-145); Total Protein 5.2 gm/dl (6.0-8.3)
[2024-09-07] MEDS: dexAMETHasone**PF** 10 MG/ML VIAL IV ONE (15:14)
[2024-09-07] MEDS: MAGNESIUM SULFATE / D5W 1 GM/100 ML BAG IV STA (15:15)
[2024-09-07] MEDS: ALBUT/IPRATROP 3MG/0.5MG NEB 3 ML VIAL NEB ONE (15:15)
--- NOTE | 2024-09-07 15:21 | XRay Report ---
EXAM: Radiograph of the Chest 1 View INDICATION: Shortness of breath. TECHNIQUE: Frontal view of the chest. COMPARISON: 08/26/2024 FINDINGS: Lungs and pleural spaces: There is increased consolidation in the left lung base with generalized shallow inspiration and vascular crowding. New small focus of consolidation in the medial right base. Increase small left pleural effusion. No pneumothorax. Heart: Shape and configuration within normal limits allowing for technique. Mediastinum: Normal contour. Bones/joints: No fracture, erosion or dislocation. Soft tissues: No abnormality noted. No radiopaque foreign body noted. Tubes, lines and devices: Left internal jugular central venous port terminates at the jugular subclavian junction. Upper abdomen: No abnormality noted. IMPRESSION: 1. New right and increased left basilar atelectasis or pneumonia and increased small left pleural effusion. 2. Lines and tubes as above. ACT 112: Negative or not required by law. Electronically signed by Kendra March 09-07-2024 3:21 PM
[2024-09-07 15:22] LABS: Troponin I High Sensitivity 51.8 pg/ml (0-20)
[2024-09-07 15:31] LABS: Base Excess VBG 4.2 mEq/L; HCO3 VBG 35 mmol/L; Oxygen Saturation VBG < 60.0 %; PCO2 VBG 88 mmHg (38-50); PO2 VBG 28 mmHg; pH VBG 7.21 (7.36-7.41)
[2024-09-07 15:59] LABS: Influenza A virus by PCR Negative (Neg); Influenza B virus by PCR Negative (Neg); RSV by PCR Negative (Neg); SARS CoV2 RNA(COVID-19) Ceph NEGATIVE (Negative)
--- NOTE | 2024-09-07 16:25 | History & Physical Report ---
Date of Service September 07, 2024 Assessment & Plan (1) Acute on chronic heart failure with preserved ejection fraction (HFpEF): Plan: Difficult to interpret CXR due to underlying interstitial lung disease and legs likely always swollen from pulmonary hypertension from lung disease but BNP mildly increased from prior will trial diauresis to see if this helps his breathing Bumex 1mg IV BID Strict I&Os Daily weights Low Na diet (2) Acute hypercapnic respiratory failure: Plan: No confusion, slightly worse than VBG in July and did not require BiPAP, repeat VBG now, if remains stable or worse will start on BiPAP, BiPAP HS irregardless Aim O2 sats 88-92% - ?secondary to turning up his oxygen inappropriately at home (3) Paroxysmal atrial fibrillation: Plan: Eliquis on hold for upcoming bronchoscopy, consider reduction in dose given renal function much worse than cut off even though 1 year below cut off for reduction Rate controlled on his usual carvedilol 25mg PO BID, will continue (4) Hypersensitivity pneumonitis: Plan: Consult pulmonary for advice ongoing for prednisone, planning on reduction as an outpatient Prednisone dose now < 20mg therefore will hold Bactrim prophylaxis (5) COPD with emphysema: Plan: No wheezing on exam when seen but patient seen following nebulizer treatments in the ER He was treated for exacerbation in the ER but especially since steroids and concern for worsening fatigue and weakness will go back to his usual dosing at this time (6) Asymptomatic bacteriuria: Plan: No specific urinary symptoms, low probability of cause of fatigue and generalized weakness, would await culture prior to decision whether to treat this Plan VTE Prohyaxis - deferred as holding Eliquis for bronchoscopy Diet - Low Na Disposition - admit to med/tele Admission and Anticipated Discharge Date Admission Date: September 07, 2024 History of Present Illness Chief Complaint: Shortness of breath Fatigue Primary Care Provider: Vinod Pang Manuel De La Cruz is a 79 year old male with COPD, hypersensitivity pneumonitis, pulmonary nodule, heart failure with borderline ejection fraction who presents to the ER with shortness of breath and fatigue. He notes shortness of breath at baseline but this has been getting worse over the last week but especially last 2 days. Generally weak all over, not unilateral. No change in speech, vision or hearing. No fever, chills, chest pain worsening cough, nasal congestion or sinus pain. No gastrointestinal or urinary symptoms. He has been reducing his prednisone as there was some concern this was causing his generalized weakness although he appears to be getting worse rather than better. He was admitted in July and underwent diuresis at that time although his main diagnosis was a T5 compression fracture as likely the cause of his breathing difficulty. Allergies Allergy/AdvReac Type Severity Reaction Status Date / Time No Known Allergies Allergy Verified 09/07/24 16:25 Home Medications Medication Instructions Recorded Confirmed Type atorvastatin 80 mg tablet (Lipitor) 80 mg PO HS #0 tabs 12/21/14 09/07/24 History clopidogrel 75 mg tablet 0 mg PO QAM 09/15/21 09/07/24 History nebulizers (Aeroneb Go Nebulizer) #1 ea 09/19/23 09/07/24 Rx Portable Oxygen 12/11/23 09/07/24 History carvedilol 25 mg tablet 25 mg PO BID #180 tabs 04/21/24 09/07/24 Rx ipratropium 0.5 mg-albuterol 3 mg 3 ml inhalation DIRECTED PRN 06/10/24 09/07/24 History (2.5 mg base)/3 mL nebulization Other soln sertraline 100 mg tablet 100 mg PO QAM 06/10/24 09/07/24 History bumetanide 1 mg tablet 1 mg PO QAM 07/17/24 09/07/24 History mycophenolate mofetil 500 mg tablet 500 mg PO BID 07/17/24 09/07/24 History pantoprazole 40 mg tablet,delayed 40 mg PO QAM 07/17/24 09/07/24 History release sulfamethoxazole 800 1 tab PO 3XWK 07/17/24 09/07/24 History mg-trimethoprim 160 mg tablet cyclobenzaprine 5 mg tablet 5 mg PO TID PRN Muscle Spasms 08/29/24 09/07/24 History apixaban 5 mg tablet (Eliquis) 0 mg PO BID 09/07/24 09/07/24 History epoetin neptali 40,000 unit/mL 40,000 unit subcut MONTHLY 09/07/24 09/07/24 History injection solution (Procrit) prednisone 20 mg tablet 15 mg PO DAILY 09/07/24 09/07/24 History Past Med/Surg History Problem List (Updated 09/08/24 @ 06:51 by Red Watson MD) Asymptomatic bacteriuria Acute on chronic heart failure with preserved ejection fraction (HFpEF) Acute hypercapnic respiratory failure (Acute) Acute exacerbation of chronic obstructive pulmonary disease (COPD) (Acute) Encounter for pre-operative examination Dyspnea on minimal exertion (Acute) Antiplatelet or antithrombotic long-term use Recurrent UTI Hypospadias Right hydrocele Hematuria (Acute) Mild mitral regurgitation Hypersensitivity pneumonitis presumptively diagnosed- treated with steroid x 12 months Chewing tobacco nicotine dependence Ex-smoker Allergic rhinitis with postnasal drip Abnormal chest CT COPD with emphysema Multiple pulmonary nodules Vitamin D deficiency Hypoxemia GERD (gastroesophageal reflux disease) Pulmonary nodule PAD (peripheral artery disease) Secondary hyperparathyroidism of renal origin Central venous catheter in place, permanent Depression Sinus bradycardia ESRD (end stage renal disease) 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 Neuropathy Hypercholesteremia MAEGAN (obstructive sleep apnea) Peripheral vascular disease Hypercalcemia (Acute) Liver mass (Acute) Medical History (Updated 09/08/24 @ 06:51 by Red Watson MD) Hx of sinus bradycardia Mild mitral regurgitation Mild aortic stenosis No aortic stenosis noted on 04/07/24 ECHO Restrictive lung disease Chronic respiratory failure with hypoxia currently on continuous oxygen 1-4 lpm [place] (hard of hearing) Hx of fracture of nose early 08/2024, 2/2 to fall; "healing up just fine now" Weakness of both legs Port-A-Cath in place placed in 2019, "no longer works" Multiple pulmonary nodules PAD (peripheral artery disease) Hypercholesteremia GERD (gastroesophageal reflux disease) Dyspnea on minimal exertion Per pulm- likely multifactorial due to combinations of his underlying lung disease, obesity, deconditioning, possible myopathy due to long-term steroid use, as well as heart failure and kidney failure. B-cell lymphoma dx ~2019 or before, in liver, chemo tx. On home oxygen therapy 1-4L continuous, via n/c Closed stable burst fracture of fifth thoracic vertebra f/u chiropractor recently COPD (chronic obstructive pulmonary disease) w/emphysema Paroxysmal atrial fibrillation f/u mariah hernandez cardio on Eliquis HFrEF (heart failure with reduced ejection fraction) f/u mariah hernandez cardio EF 40-44% on 04/2024 ECHO CHF exacerbation (admitted to [facility] 07/17/24-07/19/24) Chronic kidney disease, stage IV (severe) f/u dr. perry [facility] ILD (interstitial lung disease) Anemia Chronic anticoagulation Cardiomyopathy Situational depression Left leg DVT ~ Anorexia Weight loss Pneumonia due to COVID-19 virus 2020, admitted to [facility] "almost intubated"; "feels lung damage is due to him having covid" COVID-19 hx, 2020, admitted to [place] "and was almost intubated, still feels that the damage to the lungs is from covid" Osteoarthritis Chronic back pain Hemodialysis patient last dialysis February 11, 2019; nephrology has since stopped dialysis follows with dr perry [place] [facility]. Sleep apnea non-compliant; currently on continuous oxygen 1-4 lpm Hearing deficit Peripheral vascular disease right LE femoral femoral bypass Peripheral neuropathy Scrotal swelling "ongoing" Coronary artery disease s/p stent in Surgical History S/P arteriovenous (AV) fistula creation 2018, rt arm/wrist S/P arteriovenous (AV) fistula repair 05/2023, rt arm/wrist History of esophagogastroduodenoscopy (EGD) History of colonoscopy History of heart artery stent , unsure which hospital, x1 stent; f/u mariah zamora cardio History of cardiac cath , unsure where, x1 stent; f/u mariah zamora S/P femoral-femoral bypass surgery right leg H/O vascular surgery removal DVT History of lumbar discectomy L4-L5, in History of umbilical hernia repair Family History Mother FHx: lung cancer FHx: uterine cancer Other Allergy Cancer Diabetes Heart disease Lung cancer Lung disease Denies family history of Tuberculosis Emphysema of lung Asthma Social History Smoking Status: Former smoker Tobacco Type: Cigarettes packs per day: 1; Second Hand Exposure: No; Do You Dip or Chew Tobacco: No; Tobacco Cessation Education Requested by Patient: No Hx Alcohol Use: No Hx Substance Use: No Preferred Language: Australian Communication Ability: Effective 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: No Beliefs That Will Affect Care: None Current Living Situation: Spouse Current Living Situation Comment: -Sandra Other Information That Helps Us Care for You: No Feels Safe at Home: Yes Safety Concerns: Feels Safe At This Time Assistive Devices: Glasses, Hearing Aid - Right and Walker Review of Systems Review of Systems: All systems reviewed & are unremarkable except as noted in HPI & below Physical Exam Constitutional: well developed and + acute distress (respiratory) Eyes: PERRL, conjunctivae normal, anicteric sclerae ENMT: external ear and nose normal, oropharynx normal Respiratory: + labored breathing, + uses accessory mu scles, able to speak in complete sentences and + tachypneic; no stridor Auscultation: + diminished lung sounds (bibasal) and + crackles (bibasal); no rhonchi and no wheezes Cardiovascular: Rate/Rhythm: regular rate and + irregularly irregular Heart Sounds: no murmur Extremities: normal capillary refill and + pedal edema (Right > Left 3+); no calf tenderness Gastrointestinal (Abdomen): normal bowel sounds, soft, nontender, no hepatosplenomegaly Musculoskeletal: no cyanosis or clubbing, extremities motor strength 5/5 Skin: no rashes, warm and dry (no areas of cellulitis noted) Neurologic: moves all extremities and awake; no focal motor deficits and not confused Psychiatric: A+Ox3, euthymic affect Results & Data Results & Data Vital Signs (Past 12 Hours) Vital Signs Temp Pulse Resp BP Pulse Ox O2 Del Method O2 Flow Rate 09/07/24 14:47 73 09/07/24 13:55 36.2 C L 78 18 146/85 H 97 Nasal Cannula 4 Laboratory Results Abnormal lab results 09/07/24 09/07/24 Range/Units 14:13 15:04 RBC 2.92 L (4.70-6.10) M/uL Hgb 8.9 L (14.0-18.0) g/dl Hct 31.7 L (42.0-52.0) % MCV 108.6 H (80.0-100.0) fL MCHC 28.1 L (32.0-36.0) g/dL RDW Std Deviation 62.5 H (36.4-46.3) fL RDW Coeff of Xiom[place] 15.6 H (11.5-14.5) % Neut # (Auto) 7.64 H (1.40-6.50) K/uL Lymph # (Auto) 0.26 L (1.20-3.40) K/uL VBG pH 7.21 L (7.36-7.41) VBG pCO2 88 H (38-50) mmHg BUN 72 H (6-23) mg/dl Creatinine 3.41 H (0.6-1.4) mg/dl BUN/Creatinine Ratio 21.1 H (10-20) Glucose 133 H (70-99(Fasting)) mg/dl Calcium 8.3 L (8.6-10.3) mg/dl Troponin I High Sens 51.8 H* (0-20) pg/ml Total Protein 5.2 L (6.0-8.3) gm/dl Diagnostic Findings Radiograph of the Chest 1 View INDICATION: Shortness of breath. TECHNIQUE: Frontal view of the chest. COMPARISON: 08/26/2024 FINDINGS: Lungs and pleural spaces: There is increased consolidation in the left lung base with generalized shallow inspiration and vascular crowding. New small focus of consolidation in the medial right base. Increase small left pleural effusion. No pneumothorax. Heart: Shape and configuration within normal limits allowing for technique. Mediastinum: Normal contour. Bones/joints: No fracture, erosion or dislocation. Soft tissues: No abnormality noted. No radiopaque foreign body noted. Tubes, lines and devices: Left internal jugular central venous port terminates at the jugular subclavian junction. Upper abdomen: No abnormality noted. IMPRESSION: 1. New right and increased left basilar atelectasis or pneumonia and increased small left pleural effusion. 2. Lines and tubes as above. Medications Administered ER Medications Given: Duoneb 12ml NEB Dexamethasone 10mg IV Magnesium sulfate 1g IV ECG Rate (beats per minute): 83 Rhythm: atrial fibrillation Findings: no acute ischemic change Comparison ECG Date: from (July 17, 2024) Change: the following changes noted (atrial fibrillation has replaced NSR) Code Status & VTE Plan Code Status Full VTE Prophylaxis Plan VTE Prophylaxis will be ordered: Yes PG Care Time/CCT Total # of Minutes Spent Total Time Spent with Patient: Total time spent is greater than 50% in coordination of care (as documented) at patient's floor/unit and/or counseling patient: Coding Level of Care Code 80855 INT INP/OBS CARE 3/75MIN Diagnoses Acute on chronic heart failure with preserved ejection fraction (HFpEF) I50.33 Acute hypercapnic respiratory failure J96.02 Paroxysmal atrial fibrillation I48.0 Hypersensitivity pneumonitis J67.9 COPD with emphysema J43.9 Asymptomatic bacteriuria R82.71
[2024-09-07 17:13] LABS: Appearance Urine Cloudy (Clear); Bacteria Urine Automated 4+ (None Seen); Bilirubin Urine Negative (Negative); Blood Urine 2+ (Negative); Cast Urine Automated 0-2 /lpf (0-2); Color Urine Yellow; Epithelial Cell Urine Auto 0-2 /hpf (0-2); Glucose Urine UA Negative (Negative); Ketones Urine Negative (Negative); Leukocyte Esterase Urine 2+ (Negative); Nitrite Urine Negative (Negative); Protein Urine 1+ (Negative); RBC Urine Automated 0-2 /hpf (0-2); Urobilinogen Urine Negative (Negative); WBC Urine Automated >50 /hpf (0-5); pH Urine 5.5 (4.5-7.5)
[2024-09-07 18:11] LABS: Base Excess VBG 3.5 mEq/L; HCO3 VBG 35 mmol/L; Oxygen Saturation VBG < 60.0 %; PCO2 VBG 91 mmHg (38-50); PO2 VBG 25 mmHg; pH VBG 7.19 (7.36-7.41)
[2024-09-07] MEDS: BUMETANIDE 1 MG in SYRINGE 0 ML IV STA (18:39)
[2024-09-07] MEDS ORDERED: ACETAMINOPHEN 325 MG TAB PO PRN (19:31)
[2024-09-07] MEDS: ATORVASTATIN 40 MG TAB PO SCH (20:08)
[2024-09-07] MEDS: carvediloL 25 MG TAB PO SCH (22:01)
[2024-09-07] MEDS: MYCOPHENOLATE MOFETIL 250 MG CAP PO SCH (22:23)
[2024-09-08 05:55] LABS: Base Excess VBG 4.3 mEq/L; HCO3 VBG 34 mmol/L; Oxygen Saturation VBG 74.9 %; PCO2 VBG 78 mmHg (38-50); PO2 VBG 45 mmHg; pH VBG 7.25 (7.36-7.41)
[2024-09-08 06:18] LABS: Albumin Globulin Ratio 1.9 (0.9-2); Albumin Level 3.4 gm/dl (3.4-5.0); Bilirubin,Total 0.3 mg/dl (0.2-1.0); Calcium 8.2 mg/dl (8.6-10.3); Creatinine Clr Calc Pharmacy 19.1 ml/min; Globulin 1.8 gm/dl (2.5-4.0); Potassium 4.9 mmol/L (3.5-5.1); Total Protein 5.2 gm/dl (6.0-8.3)
[2024-09-08 06:33] LABS: Hematocrit (blood only) 30.2 % (42.0-52.0); Hemoglobin 8.5 g/dl (14.0-18.0); Immature Granulocytes # (auto) 0.05 K/uL (0.01-0.20); Immature Granulocytes % (auto) 0.8 %; Mean Corpuscular Hemoglobin 30.1 pg (25.0-34.0); Mean Corpuscular Hgb Conc 28.1 g/dL (32.0-36.0); Mean Corpuscular Volume 107.1 fL (80.0-100.0); Mean Platelet Volume 10.5 fL (9.4-12.4); Monocytes # (auto) 0.38 K/uL (0.11-0.59); Monocytes % (auto) 6.4 %; Neutrophils # (auto) 5.25 K/uL (1.40-6.50); Neutrophils % (auto) 87.8 %; Platelet Count 134 K/uL (130-400); RDW Coefficient of Variation 15.4 % (11.5-14.5); RDW Standard Deviation 61.2 fL (36.4-46.3); Red Blood Count 2.82 M/uL (4.70-6.10); White Blood Count 5.98 K/ul (4.8-10.8)
[2024-09-08] MEDS: PANTOprazole 40 MG TAB PO SCH (08:44)
[2024-09-08] MEDS: BUMETANIDE 1 MG in SYRINGE 0 ML IV SCH (08:44)
[2024-09-08] MEDS: SERTRALINE HCL 100 MG TABLET PO SCH (08:44)
[2024-09-08] MEDS: predniSONE 5 MG TAB PO SCH (08:50)
--- NOTE | 2024-09-08 08:57 | Pulmonary Consultation ---
Date of Consultation September 08, 2024 Assessment & Plan (1) Dyspnea on minimal exertion: This has been the patient's primary complaint in the outpatient setting as well. This likely largely represents a multifactorial combination including his interstitial lung disease, COPD, CHF, and general deconditioning. His oxygen saturations have been well within normal limits. We would aim for a goal of 88% and above. Unfortunately, I feel as though the patient is having dyspnea is likely related to general deconditioning and equating it to hypoxemia which does not appear to be the case, even in his description. Would aim for a goal oxygen saturation of 88 or above, however the patient may respond better to a saturation of 90% or above. Certainly, there could be a degree of CHF in this patient as he does examine with bilateral peripheral edema and with a history of CKD and likely poor urine output. Agree with aggressive diuresis as tolerated. (2) Hypoxemia: Appears to be at or near his baseline. Again, we will saturation 88 or above. That being said, the patient respond better to a saturation of 90% from an emotional perspective as he is fixated on this number. (3) COPD with emphysema: Patient is not bronchospastic on exam today. No need for parenteral steroids at this time. (4) Acute hypercapnic respiratory failure: Noted on VBG alone. Without other sequela of concerning exam findings or symptoms at this point. Certainly, this could be driving a degree of his hypoxia. Do not disagree with trial of BiPAP or NIV, however I am uncertain how well the patient will tolerate this moving forward. (5) Pulmonary nodule: Suspicious LEFT upper lobe pulmonary lesion. Case had already been reviewed during recent outpatient visit and patient is agreeable to robotic bronchoscopy. Patient is on the schedule for tomorrow (09/09). Patient is nearing his baseline at this time and I will defer to anesthesia colleagues for assessment for procedure. Plan Thank you for allowing us to participate in the care of this patient. Pulmonary medicine will continue to follow along. History of Present Illness Reason for Consultation: hypercapnic resp failure, interstitial lung diseas Requesting Physician: Dr. Watson Attending Physician: Jocelyn Gottlieb MD History of Present Illness Patient is a 79-year-old male with a significant past medical history of interstitial lung disease, exertional dyspnea, COPD, prior history of smoking, obstructive sleep apnea, restrictive lung disease, and chronic respiratory failure with hypoxia who is followed in the outpatient pulmonary clinic. He has a main complaint of dyspnea with exertion and associated hypoxia. He uses anywhere from 1 to 4 L nasal cannula which he titrates himself. He states that his oxygen saturation at rest with 2 L is anywhere from 99 to 100%. He gets concerned that when he ambulates off of the oxygen, his saturation drops to 88%. He states that he has been having shortness of breath with minimal exertion over the last few days which prompted visit to the emergency department. Patient was subsequently placed on Bumex with hopes of improving his breathing with diuresis. Additionally, the patient had VBG's which were demonstrating a degree of hypercapnia. He was provided BiPAP to use at night, but reports that it was difficult and he is uncertain how much he had achieved sleep with this. Upon evaluation in room 2892, the patient is awake, alert, and oriented. He complains of shortness of breath with any exertion. No complaints of chest pain or palpitations. He has had no fevers or chills. No worsening cough. No hemoptysis. The only change in medication that he has had was a decrease in his daily prednisone from 20 mg daily to 15 mg daily. Otherwise, he reports his symptoms are not far from his recent baseline. Patient is scheduled to undergo robotic bronchoscopy procedure tomorrow in the setting of LEFT upper lobe pulmonary nodule of suspicious nature. Allergies Allergy/AdvReac Type Severity Reaction Status Date / Time No Known Allergies Allergy Verified 09/07/24 16:25 Home Medications Medication Instructions Recorded Confirmed Type atorvastatin 80 mg tablet (Lipitor) 80 mg PO HS #0 tabs 12/21/14 09/07/24 History clopidogrel 75 mg tablet 0 mg PO QAM 09/15/21 09/07/24 History nebulizers (Aeroneb Go Nebulizer) #1 ea 09/19/23 09/07/24 Rx Portable Oxygen 12/11/23 09/07/24 History carvedilol 25 mg tablet 25 mg PO BID #180 tabs 04/21/24 09/07/24 Rx ipratropium 0.5 mg-albuterol 3 mg 3 ml inhalation DIRECTED PRN 06/10/24 09/07/24 History (2.5 mg base)/3 mL nebulization Other soln sertraline 100 mg tablet 100 mg PO QAM 06/10/24 09/07/24 History bumetanide 1 mg tablet 1 mg PO QAM 07/17/24 09/07/24 History mycophenolate mofetil 500 mg tablet 500 mg PO BID 07/17/24 09/07/24 History pantoprazole 40 mg tablet,delayed 40 mg PO QAM 07/17/24 09/07/24 History release sulfamethoxazole 800 1 tab PO 3XWK 07/17/24 09/07/24 History mg-trimethoprim 160 mg tablet cyclobenzaprine 5 mg tablet 5 mg PO TID PRN Muscle Spasms 08/29/24 09/07/24 History apixaban 5 mg tablet (Eliquis) 0 mg PO BID 09/07/24 09/07/24 History epoetin neptali 40,000 unit/mL 40,000 unit subcut MONTHLY 09/07/24 09/07/24 History injection solution (Procrit) prednisone 20 mg tablet 15 mg PO DAILY 09/07/24 09/07/24 History Patient History Medical History (Updated 09/08/24 @ 06:51 by Red Watson MD) Hx of sinus bradycardia Mild mitral regurgitation Mild aortic stenosis No aortic stenosis noted on 04/07/24 ECHO Restrictive lung disease Chronic respiratory failure with hypoxia currently on continuous oxygen 1-4 lpm [place] (hard of hearing) Hx of fracture of nose early 08/2024, 2/2 to fall; "healing up just fine now" Weakness of both legs Port-A-Cath in place placed in 2018, "no longer works" Multiple pulmonary nodules PAD (peripheral artery disease) Hypercholesteremia GERD (gastroesophageal reflux disease) Dyspnea on minimal exertion Per pulm- likely multifactorial due to combinations of his underlying lung disease, obesity, deconditioning, possible myopathy due to long-term steroid use, as well as heart failure and kidney failure. B-cell lymphoma dx ~2019 or before, in liver, chemo tx. On home oxygen therapy 1-4L continuous, via n/c Closed stable burst fracture of fifth thoracic vertebra f/u chiropractor recently COPD (chronic obstructive pulmonary disease) w/emphysema Paroxysmal atrial fibrillation f/u mariah hernandez cardio on Eliquis HFrEF (heart failure with reduced ejection fraction) f/u mariah hernandez cardio EF 40-44% on 04/2024 ECHO CHF exacerbation (admitted to [facility] 07/17/24-07/19/24) Chronic kidney disease, stage IV (severe) f/u dr. perry, [facility] [place] ILD (interstitial lung disease) Anemia Chronic anticoagulation Cardiomyopathy Situational depression Left leg DVT ~ Anorexia Weight loss Pneumonia due to COVID-19 virus 2020, admitted to [facility] "almost intubated"; "feels lung damage is due to him having covid" COVID-19 hx, 2020, admitted to [place] "and was almost intubated, still feels that the damage to the lungs is from covid" Osteoarthritis Chronic back pain Hemodialysis patient last dialysis February 11, 2019; nephrology has since stopped dialysis follows with dr perry [place] [facility]. Sleep apnea non-compliant; currently on continuous oxygen 1-4 lpm Hearing deficit Peripheral vascular disease right LE femoral femoral bypass Peripheral neuropathy Scrotal swelling "ongoing" Coronary artery disease s/p stent in Surgical History S/P arteriovenous (AV) fistula creation 2018, rt arm/wrist S/P arteriovenous (AV) fistula repair 05/2023, rt arm/wrist History of esophagogastroduodenoscopy (EGD) History of colonoscopy History of heart artery stent , unsure which hospital, x1 stent; f/u mariah zamora cardio History of cardiac cath , unsure where, x1 stent; f/u mariah zamora S/P femoral-femoral bypass surgery right leg H/O vascular surgery removal DVT History of lumbar discectomy L4-L5, in History of umbilical hernia repair Family History Mother FHx: lung cancer FHx: uterine cancer Other Allergy Cancer Diabetes Heart disease Lung cancer Lung disease Denies family history of Tuberculosis Emphysema of lung Asthma Social History Smoking Status: Former smoker Tobacco Type: Cigarettes packs per day: 1; Second Hand Exposure: No; Do You Dip or Chew Tobacco: No; Tobacco Cessation Education Requested by Patient: No Hx Alcohol Use: No Hx Substance Use: No Preferred Language: Kazakh Communication Ability: Effective Program Evaluation Consultant Required: No Beliefs That Will Affect Care: None Current Living Situation: Spouse Current Living Situation Comment: -Sandra Other Information That Helps Us Care for You: No Feels Safe at Home: Yes Safety Concerns: Feels Safe At This Time Assistive Devices: Glasses, Hearing Aid - Right and Walker Review of Systems Review of Systems: A complete 10 point review of systems was reviewed with the patient with pertinent positives and negatives as per history of present illness. All else were negative. Physical Exam Physical Exam: VITAL SIGNS Vital signs and nursing notes were reviewed. GENERAL 79-year-old male appearing his stated age who is in no acute distress. Communicates well with provider and answers questions appropriately. SKIN Without rashes or lesions. NOSE Midline and without cyanosis. MOUTH/OROPHARYNX Without perioral cyanosis. NECK Neck with FROM. LUNGS Chest wall evaluation demonstrates normal chest wall A:P diameter. Auscultation reveals diminished breath sounds. No wheezing noted. CARDIAC RRR with S1/S2. No murmur, rubs, or gallops appreciated. ABDOMEN Abdominal inspection demonstrates an obese abdomen. BS normoactive all four quadrants. No tenderness, palpable masses, or ascites noted. EXTREMITIES Nail clubbing not present. No peripheral cyanosis. Bilateral pretibial edema present. +3/5 radial palpated throughout. PSYCH A&Ox3 and cooperates fully with examiner. Pt is very pleasant and interacts well with examiner. Results & Data Results & Data Vital Signs (Past 12 Hours) Vital Signs Temp Pulse Pulse Pulse Resp BP Pulse Ox 09/08/24 08:27 20 09/08/24 08:04 36.6 C 68 18 146/64 H 100 09/08/24 07:40 74 24 98 09/08/24 07:00 75 09/08/24 04:43 36.3 C L 76 18 129/69 99 09/07/24 23:08 84 18 121/61 100 09/07/24 23:04 101 H 18 91 09/07/24 21:38 98 H 09/07/24 20:59 36.3 C L 86 24 122/70 99 O2 Del Method O2 Flow Rate FiO2 09/08/24 08:27 09/08/24 08:04 BiPAP 09/08/24 07:40 40 09/08/24 07:00 09/08/24 04:43 Nasal Cannula 4 09/07/24 23:08 BiPAP 09/07/24 23:04 40 09/07/24 21:38 09/07/24 20:59 Nasal Cannula PG Care Time/CCT Total # of Minutes Spent Total Time Spent with Patient: Total time spent is greater than 50% in coordination of care (as documented) at patient's floor/unit and/or counseling patient: Coding Level of Care Code 48236 INT INP/OBS CARE 2/55MIN Diagnoses Dyspnea on minimal exertion R06.09 Hypoxemia R09.02 COPD with emphysema J43.9 Acute hypercapnic respiratory failure J96.02 Pulmonary nodule R91.1
--- NOTE | 2024-09-08 13:48 | Electrocardiogram Report ---
Test Reason : Blood Pressure : */* mmHG Vent. Rate : 83 BPM Atrial Rate : * BPM P-R Int : * ms QRS Dur : 88 ms QT Int : 360 ms P-R-T Axes : * 7 201 degrees QTcB Int : 423 ms Atrial fibrillation with premature ventricular or aberrantly conducted complexes Abnormal ECG When compared with ECG of 17-Jul-2024 09:58, Atrial fibrillation has replaced Sinus rhythm T wave inversion now evident in Inferior leads Confirmed by Earl Manuel ([id number]) on 09/08/2024 1:47:58 PM Referred By: REFERRED SELF Confirmed By: Earl Manuel
--- NOTE | 2024-09-08 16:21 | Hospitalist Progress Note ---
Date of Service September 08, 2024 Assessment & Plan (1) Acute on chronic heart failure with preserved ejection fraction (HFpEF): Plan: Difficult to interpret CXR due to underlying interstitial lung disease and legs likely always swollen from pulmonary hypertension from lung disease but BNP mildly increased and weight increased from prior will trial diuresis to see if this helps his breathing Bumex 1mg IV BID (home dose: 1mg daily) Strict I&Os, Daily weights, Low Na diet Wean O2 as able, goal 88% AM BMP (2) Acute hypercapnic respiratory failure: Plan: Patient has known COPD and ILD. Recent 2step 07/2024 recommend 1L at rest, 2L with activity No confusion, slightly worse than VBG in July and did not require BiPAP, continue BiPAP HS irregardless Aim O2 sats 88-92% - ?secondary to turning up his oxygen inappropriately at home (3) Paroxysmal atrial fibrillation: Plan: Eliquis on hold for upcoming bronchoscopy, consider reduction in dose given renal function much worse than cut off even though 6 month below cut off for reduction Rate controlled on his usual carvedilol 25mg PO BID, will continue (4) Hypersensitivity pneumonitis: Plan: Consult pulmonary for advice ongoing for prednisone, planning on reduction as an outpatient Prednisone dose now < 20mg therefore will hold Bactrim prophylaxis Pulmonary consulted - Dyspnea on exertion likely multifactorial with deconditioning. Aim for oxygen saturation > 88% - Plan for bronchoscopy tomorrow, 09/09 as scheduled outpatient - no indication for steroids, will continue outpatient taper Patient also on cellcept - unsure why or who is prescribing - in depth chart review also unclear. - attempted to call pharmacy multiple times today to find out who is prescribing this with no answer, will try again tomorrow. (5) Asymptomatic bacteriuria: Plan: No specific urinary symptoms, low probability of cause of fatigue and generalized weakness UC: Citrobacter freundii Patient remains asymptomatic and improving w/o abx so will continue to defer Plan VTE Prohyaxis - deferred as holding Eliquis for bronchoscopy Disposition - continued inpatient stay, bronch tomorrow Admission and Anticipated Discharge Date Admission Date: September 07, 2024 Subjective patient seen sitting on the edge of bed. He is not feeling short of breath, and states he feels pretty close to normal. When I asked him about the shortness of breath at home and what activities are making him increase his oxygen at home. He is not able to tell me about times when his oxygen saturation is dropping except for when he took the oxygen off and did drop down to 88. He is unable to describe why he has increased from 2 L to 4 L. He does note that when he is "lifting heavy items" that he feels more out of breath. I try to do explained to him that this may be from physical deconditioning and not his lungs but he was not receptive to this. He does think he has been taking his Bumex at home. He is not sure why he is taking the CellCept or who prescribes this. He denies any urinary symptoms Telemetry A-fib in the 80s. Review of Systems Review of Systems: All systems reviewed & are unremarkable except as noted in Subjective Physical Exam Physical Exam: General: NAD, VS as above Resp: normal respiratory effort, lungs clear to auscultation CV: RRR, no murmur, Abd: normal bowel sounds, non tender, no hepatosplenomegaly Extremities: Moves all extremities, 1+ edema Neuro: A&O x3, Skin: intact, no lesions noted Results & Data Results & Data Vital Signs (Past 12 Hours) Vital Signs Temp Pulse Pulse Resp BP Pulse Ox Pulse Ox 09/08/24 15:15 97.0 F L 80 18 127/57 L 95 09/08/24 14:30 71 09/08/24 14:14 96 09/08/24 11:12 97.5 F L 64 18 110/65 98 09/08/24 08:45 09/08/24 08:27 20 09/08/24 08:04 97.9 F 68 18 146/64 H 100 09/08/24 07:40 74 24 98 09/08/24 07:00 75 09/08/24 04:43 97.3 F L 76 18 129/69 99 Pulse Ox Pulse Ox O2 Del Method O2 Flow Rate O2 Flow Rate O2 Flow Rate O2 Flow Rate 09/08/24 15:15 Nasal Cannula 3 09/08/24 14:30 09/08/24 14:14 94 91 2 2 2 09/08/24 11:12 Nasal Cannula 3 09/08/24 08:45 Nasal Cannula 4 09/08/24 08:27 09/08/24 08:04 BiPAP 09/08/24 07:40 09/08/24 07:00 09/08/24 04:43 Nasal Cannula 4 FiO2 09/08/24 15:15 09/08/24 14:30 09/08/24 14:14 09/08/24 11:12 09/08/24 08:45 09/08/24 08:27 09/08/24 08:04 09/08/24 07:40 40 09/08/24 07:00 09/08/24 04:43 Laboratory Results CBC and chemistry reviewed UA reviewed Diagnostic Findings chest x-ray reviewed PG Care Time/CCT Total # of Minutes Spent Total Time Spent with Patient: Total time spent is greater than 50% in coordination of care (as documented) at patient's floor/unit and/or counseling patient: Coding Level of Care Code 19268 SUB INP/OBS CARE 3/50MIN Diagnoses Acute on chronic heart failure with preserved ejection fraction (HFpEF) I50.33 Acute hypercapnic respiratory failure J96.02 Paroxysmal atrial fibrillation I48.0 Hypersensitivity pneumonitis J67.9 Asymptomatic bacteriuria R82.71
[2024-09-09 06:41] LABS: Calcium 8.4 mg/dl (8.6-10.3); Potassium 5.7 mmol/L (3.5-5.1)
[2024-09-09 06:47] LABS: BUN Creatinine Ratio 19.7 (10-20); Creatinine Clr Calc Pharmacy 17.2 ml/min
[2024-09-09] MEDS: SODIUM CHLORIDE 0.9% 1,000 ML IV SCH (07:36)
--- NOTE | 2024-09-09 08:44 | Pulmonology Progress Note ---
Date of Service September 09, 2024 Assessment & Plan (1) Dyspnea on minimal exertion: Plan: This has been the patient's primary complaint in the outpatient setting as well. This likely largely represents a multifactorial combination including his interstitial lung disease, COPD, CHF, and general deconditioning. His oxygen saturations have been well within normal limits. We would aim for a goal of 88% and above. Unfortunately, I feel as though the patient is having dyspnea is likely related to general deconditioning and equating it to hypoxemia which does not appear to be the case, even in his description. Would aim for a goal oxygen saturation of 88 or above, however the patient may respond better to a saturation of 90% or above. Certainly, there could be a degree of CHF in this patient as he does examine with bilateral peripheral edema and with a history of CKD and likely poor urine output. Agree with aggressive diuresis as tolerated. (2) Hypoxemia: Plan: Appears to be at or near his baseline. Again, we will saturation 88 or above. That being said, the patient respond better to a saturation of 90% from an emotional perspective as he is fixated on this number. (3) COPD with emphysema: Plan: Patient is not bronchospastic on exam today. No need for parenteral steroids at this time. (4) Acute hypercapnic respiratory failure: Plan: Noted on VBG alone. Without other sequela of concerning exam findings or s ymptoms at this point. Certainly, this could be driving a degree of his hypoxia. Do not disagree with trial of BiPAP or NIV, however I am uncertain how well the patient will tolerate this moving forward. (5) Pulmonary nodule: Plan: Suspicious LEFT upper lobe pulmonary lesion. Case had already been reviewed during recent outpatient visit and patient is agreeable to robotic bronchoscopy. Patient undergo robotic bronchoscopy procedure today. Plan Thank you for allowing us to participate in the care of this patient. Pulmonary medicine will continue to follow along. Admission and Anticipated Discharge Date Admission Date: September 07, 2024 Subjective Patient seen and evaluated at bedside. He reports no significant change either improvement or decline in his respiratory status. Requiring 3 L nasal cannula at this time. Review of Systems Review of Systems: A complete 10 point review of systems was reviewed with the patient with pertinent positives and negatives as per history of present illness. All else were negative. Physical Exam Physical Exam: VITAL SIGNS Vital signs and nursing notes were reviewed. GENERAL 79-year-old male appearing his stated age who is in no acute distress. Communicates well with provider and answers questions appropriately. SKIN Without rashes or lesions. NOSE Midline and without cyanosis. MOUTH/OROPHARYNX Without perioral cyanosis. NECK Neck with FROM. LUNGS Chest wall evaluation demonstrates normal chest wall A:P diameter. Auscultation reveals diminished breath sounds. No wheezing noted. CARDIAC RRR with S1/S2. No murmur, rubs, or gallops appreciated. ABDOMEN Abdominal inspection demonstrates an obese abdomen. BS normoactive all four quadrants. No tenderness, palpable masses, or ascites noted. EXTREMITIES Nail clubbing not present. No peripheral cyanosis. Bilateral pretibial edema present. +3/5 radial palpated throughout. PSYCH A&Ox3 and cooperates fully with examiner. Pt is very pleasant and interacts well with examiner. Results & Data Results & Data Vital Signs (Past 12 Hours) Vital Signs Temp Pulse Pulse Resp BP Pulse Ox O2 Del Method 09/09/24 08:07 36.5 C 71 18 122/72 93 Nasal Cannula 09/09/24 07:30 Room Air 09/09/24 07:00 74 09/09/24 02:08 36.5 C 81 16 123/68 93 Nasal Cannula 09/08/24 22:48 36.9 C 81 18 124/69 95 Nasal Cannula 09/08/24 21:55 82 09/08/24 21:06 Nasal Cannula O2 Flow Rate 09/09/24 08:07 3 09/09/24 07:30 09/09/24 07:00 09/09/24 02:08 3 09/08/24 22:48 3 09/08/24 21:55 09/08/24 21:06 3 PG Care Time/CCT Total # of Minutes Spent Total Time Spent with Patient: Total time spent is greater than 50% in coordination of care (as documented) at patient's floor/unit and/or counseling patient: Coding Level of Care Code 55596 SUB INP/OBS CARE 2/35MIN Diagnoses Dyspnea on minimal exertion R06.09 Hypoxemia R09.02 COPD with emphysema J43.9 Acute hypercapnic respiratory failure J96.02 Pulmonary nodule R91.1
--- NOTE | 2024-09-09 09:25 | History & Physical Bridge Note ---
Date of Service September 09, 2024 History & Physical Bridge Note I have examined the patient, reviewed the History & Physical and in the interval since the performance of the History & Physical I have noted the following changes of clinical significance: no changes noted
--- NOTE | 2024-09-09 11:39 | Procedure Note ---
Procedure Note: Bronchoscopy Procedure Procedure: Fiberoptic bronchoscopy Electromagnetic navigational bronchoscopy with fluoroscopic guidance Endobronchial ultrasound evaluation during bronchoscopy Electromagnetic navigational bronchoscopy with transbronchial biopsies under fluoroscopic guidance Electromagnetic navigational bronchoscopy with fine-needle aspiration under fluoroscopic guidance Provider: Emre Perdomo MD Consent: Signed by patient and timeout verified prior to procedure. Procedure: Patient was brought to the OR suite. Consent was verified. Appropriate radiographic studies had been reviewed prior to the procedure. General anesthesia was initiated by the anesthesia team and the patient was intubated with an 8.0 endotracheal tube. After initiation of general anesthesia, the fiberoptic scope was advanced through the existing endotracheal tube via the adapter. The tube was sounded. It was withdrawn to approximately 5 or 6 cm above the placido and secured in place. A systematic inspection of the airways was then conducted. The right tracheobronchial tree was normal in anatomic configuration with normal mucosa. Left tracheobronchial tree also demonstrated a normal anatomic configuration with normal mucosa. There were thick tenacious clear secretions present throughout the tracheobronchial tree which were suctioned clear. The fiberoptic scope was then removed. The robotic adapter was then secured to the endotracheal tube and secured using the flexible arm attached to the bed. The patient had previously been placed on a bed with an electromagnetic navigation field and a tilt table in place. The robot was advanced to the head of the bed and the robotic arm was docked to the endotracheal tube via the robotic adapter. Robot arm was withdrawn in normal fashion and the scope attached with the antibuckling device. The robotic scope was then maneuvered into the endotracheal tube where controller registration took place. Once that was confirmed the scope was advanced to the main placido and verified in good position. Navigational registration was then conducted without difficulty. Once registration was completed, the robotic bronchoscope was used to navigate to the left upper lobe nodule. Once the scope was approximately 15 to 20 mm from the lesion, a fluoroscopic tomographic spin was conducted with reconstruction of images. The lesion was able to be verified on the tomogram. It was marked and additional navigation was conducted under direct fluoroscopic guidance with augmented fluoroscopy. Once the scope was appropriately angled towards the lesion, a radial ultrasound probe was advanced. We were able to identify an eccentric area of density corresponding to the augmented fluoroscopy. At that point in time a 21-gauge TOÑO view needle was passed under fluoroscopic guidance. Repeat tomogram was conducted with the needle verified to be within the lesion of question. 2 passes were conducted. A total of 6 biopsies using transbronchial biopsy forceps were taken with touch preps performed and rapid onsite cytologic evaluation conducted. We then conducted an additional 3 cryobiopsies again with tool and lesion confirmation. Mini BAL was then performed with instillation of 35 cc of sterile saline. Return was about 12 cc of bloody fluid. Hemostasis was confirmed. The robotic bronchoscope was withdrawn and the robotic arm detached from the patient. The endobronchial ultrasound was then advanced through the adapter via the existing endotracheal tube. A survey of mediastinal lymph node stations was conducted including the 4R, 4L, 7, 10/11 R, and 10/11 L stations. A few less than 4 mm lymph nodes were identified throughout the mediastinum. These were not pathologically enlarged and biopsies were not taken. The scope was then withdrawn to the tip of the endotracheal tube and hemostasis was confirmed. Scope was removed from the airway. The patient was turned over to anesthesia for extubation and returned to the PACU having tolerated the procedure well without complication. EBL: Less than 10 ml Impression: 1. Normal inspection bronchoscopy with the exception of thick tenacious secretions throughout the tracheobronchial tree 2. Successful electromagnetic robotic navigation to a 15 mm left upper lobe pulmonary nodule. Status post biopsy/FNA/BAL under fluoroscopic guidance. Await final pathology. 3. No suspicious mediastinal lymph nodes identified [facility] [place] Procedure Codes (Charges) Pulmonary/Thoracic Procedure 1: Pulmonary and Thoracic: 76433 Navigational Bronchoscopy Procedure 2: Pulmonary and Thoracic: 21870 Bronchoscopy w/ transbronchial lung bx Procedure 3: Pulmonary and Thoracic: 19933 Bronchoscopy w/ needle bx Procedure 4: Pulmonary and Thoracic: 69301 Dx bronchoscopy/BAL Procedure 5: Pulmonary and Thoracic: 18254 Bronchoscopy, w/EBUS add on
--- NOTE | 2024-09-09 12:50 | XRay Report ---
XR chest 1V portable CLINICAL HISTORY: Post Bronchoscopy COMPARISON STUDY: Chest CT September 25, 2024. Chest radiograph September 09, 2024. PET/CT August 13, 2024. FINDINGS: Left internal jugular [id number] is unchanged in position. There is no pneumothorax stat us post bronchoscopy. Left upper lung opacity is present with there is also left basilar opacity with low lung volumes. Mediastinal prominence is unchanged. There is pulmonary vascular congestion. IMPRESSION: 1. No pneumothorax status post bronchoscopy. 2. Left upper lung opacity which may be related to bronchoscopy. ACT 112: Negative or not required by law. Electronically signed by: Virgil Pinzon M.D. 09/09/2024 12:49 PM
[2024-09-09 13:13] LABS: Eosinophil Body Fluid Man 16 %; Fluid Mono/Macrophage 70 %; Lymphocyte Body Fluid Man 3 %; Neutrophil Body Fluid Man 11 %
[2024-09-09] MEDS: SODIUM ZIRCONIUM CYCLOSILICATE 10 GM PACKET PO SCH (14:05)
--- NOTE | 2024-09-09 14:36 | Anesthesiology Progress Note ---
Date of Service September 09, 2024 Anesthesia Post Procedure Vital Signs Vital Signs: Temp Pulse Pulse Pulse Resp BP Pulse Ox 09/09/24 14:15 37 C 89 20 106/68 90 09/09/24 14:00 36.2 C L 90 18 113/71 92 09/09/24 13:45 73 16 99/56 L 95 09/09/24 13:35 79 20 107/56 L 97 09/09/24 13:25 36.4 C L 80 19 99/46 L 96 09/09/24 13:15 81 16 107/60 97 09/09/24 13:05 83 16 100/51 L 98 09/09/24 12:55 74 14 113/68 94 09/09/24 12:45 76 20 112/59 L 94 09/09/24 12:41 09/09/24 12:37 78 19 92 09/09/24 12:35 78 20 119/66 91 09/09/24 12:25 80 15 101/55 L 91 09/09/24 12:15 70 18 103/57 L 91 09/09/24 12:05 74 22 99/58 L 90 09/09/24 11:55 74 19 84/57 L 84 L 09/09/24 11:45 36.3 C L 83 17 90/50 L 90 09/09/24 08:55 36.5 C 72 20 131/72 98 09/09/24 08:07 36.5 C 71 18 122/72 93 09/09/24 07:30 09/09/24 07:00 74 09/09/24 02:08 36.5 C 81 16 123/68 93 09/08/24 22:48 36.9 C 81 18 124/69 95 09/08/24 21:55 82 09/08/24 21:06 09/08/24 19:27 36.6 C 77 18 111/65 97 09/08/24 15:15 36.1 C L 80 18 127/57 L 95 O2 Del Method O2 Flow Rate FiO2 09/09/24 14:15 Nasal Cannula 3 09/09/24 14:00 Nasal Cannula 3 09/09/24 13:45 BiPAP 60 09/09/24 13:35 BiPAP 60 09/09/24 13:25 BiPAP 60 09/09/24 13:15 BiPAP 60 09/09/24 13:05 BiPAP 60 09/09/24 12:55 BiPAP 60 09/09/24 12:45 BiPAP 60 09/09/24 12:41 Mechanical Vent 09/09/24 12:37 70 09/09/24 12:35 BiPAP 09/09/24 12:25 Oxymask 15 09/09/24 12:15 Oxymask 15 09/09/24 12:05 Oxymask 15 09/09/24 11:55 Oxymask 15 09/09/24 11:45 Oxymask 15 09/09/24 08:55 Nasal Cannula 3 09/09/24 08:07 Nasal Cannula 3 09/09/24 07:30 Room Air 09/09/24 07:00 09/09/24 02:08 Nasal Cannula 3 09/08/24 22:48 Nasal Cannula 3 09/08/24 21:55 09/08/24 21:06 Nasal Cannula 3 09/08/24 19:27 Nasal Cannula 3 09/08/24 15:15 Nasal Cannula 3 Transfer of Care Handoff Completed per policy Notes Mental Status: alert / awake / arousable Patient Amnestic to Procedure: Yes Nausea / Vomiting: adequately controlled Pain: adequately controlled Airway Patency, RR, SpO2: stable & adequate BP & HR: stable & adequate Hydration State: stable & adequate Anesthetic Complications: no major complications apparent and Pt Satisfied with anesthetic care
--- NOTE | 2024-09-09 14:54 | Hospitalist Progress Note ---
Date of Service September 09, 2024 Assessment & Plan (1) Acute on chronic heart failure with preserved ejection fraction (HFpEF): Plan: Difficult to interpret CXR due to underlying interstitial lung disease and legs likely always swollen from prior surgeries/ pulmonary hypertension from lung disease but BNP mildly increased and weight increased from prior will trial diuresis to see if this helps his breathing Bumex 1mg IV BID (home dose: 1mg daily) - HELD With increase in Cr Strict I&Os, Daily weights, Low Na diet Wean O2 as able, goal 88% Bump in Cr and K/Na - held bumex - lokelma - given timing of bronchoscopy/out of room this was not able to be given until this afternoon. - recheck labs in AM, continue to monitor on tele. No CP (2) Acute hypercapnic respiratory failure: Plan: Patient has known COPD and ILD. Recent 2step 07/2024 recommend 1L at rest, 2L with activity No confusion, slightly worse than VBG in July and did not require BiPAP Recommend BiPAP HS - but patient refusing Aim O2 sats 88-92% - ?secondary to turning up his oxygen inappropriately at home, pt unable to describe events or changes in saturations that cause him to titrate up his oxygen (3) Paroxysmal atrial fibrillation: Plan: Eliquis on hold for upcoming bronchoscopy, consider reduction in dose given renal function much worse than cut off even though 6 month below cut off for reduction Rate controlled on his usual carvedilol 25mg PO BID, will continue (4) Hypersensitivity pneumonitis: Plan: Consult pulmonary for advice ongoing for prednisone, planning on reduction as an outpatient Prednisone dose now < 20mg therefore will hold Bactrim prophylaxis Pulmonary consulted - Dyspnea on exertion likely multifactorial with deconditioning. Aim for oxygen saturation > 88% - Plan for bronchoscopy today, as scheduled outpatient - no indication for steroids, will continue outpatient taper Patient also on cellcept - prescribed by Dr. Gaytan, pulmonology in [place] - reports they have no intention of following up with him. - Discussed with pulmonology - will begin to taper off - Decrease dose to 1000mg qAM and 500mg qPM (5) Asymptomatic bacteriuria: Plan: No specific urinary symptoms, low probability of cause of fatigue and generalized weakness UC: Citrobacter freundii Patient remains asymptomatic and improving w/o abx so will continue to defer Plan VTE Prohyaxis - deferred as holding Eliquis for bronchoscopy Disposition - continued inpatient stay, bronch tomorrow updated by phone 09/09 Admission and Anticipated Discharge Date Admission Date: September 07, 2024 Supervising Physician Co-Signing Physician Notes Attending Attestation - Chart reviewed in detail, care plan d/w JOSIE Martinez. I agree w/ the muniz components of her documentation. Appreciate pulmonary assistance including guidance on the pt's cellcept. I performed a chart review - it appears the cellcept was started sometime in spring 2023 for his ILD. Red Matthew MD Subjective Patient seen sitting at the side of bed after his bronchoscopy. Reports that he is feeling better than when he came in Endorses that we he did pee alot more yesterday. Denies pain with urination, burning or hematuria. Denies CP or SOB Tele - afib 80s Review of Systems Review of Systems: All systems reviewed & are unremarkable except as noted in Subjective Physical Exam Physical Exam: General: NAD, VS as above Resp: normal respiratory effort, on 3L, lungs coarse after bronchoscopy CV: RRR, no murmur, Abd: normal bowel sounds, non tender, no hepatosplenomegaly Extremities: Moves all extremities, bilateral 2+ pitting edema - reports near baseline with hx of vein repair and injury Neuro: A&O x3, Skin: intact, no lesions noted Results & Data Results & Data Vital Signs (Past 12 Hours) Vital Signs Temp Pulse Pulse Pulse Resp BP Pulse Ox 09/09/24 14:15 98.6 F 89 20 106/68 90 09/09/24 14:00 97.2 F L 90 18 113/71 92 09/09/24 13:45 73 16 99/56 L 95 09/09/24 13:35 79 20 107/56 L 97 09/09/24 13:25 97.5 F L 80 19 99/46 L 96 09/09/24 13:15 81 16 107/60 97 09/09/24 13:05 83 16 100/51 L 98 09/09/24 12:55 74 14 113/68 94 09/09/24 12:45 76 20 112/59 L 94 09/09/24 12:41 09/09/24 12:37 78 19 92 09/09/24 12:35 78 20 119/66 91 09/09/24 12:25 80 15 101/55 L 91 09/09/24 12:15 70 18 103/57 L 91 09/09/24 12:05 74 22 99/58 L 90 09/09/24 11:55 74 19 84/57 L 84 L 09/09/24 11:45 97.3 F L 83 17 90/50 L 90 09/09/24 08:55 97.7 F 72 20 131/72 98 09/09/24 08:07 97.7 F 71 18 122/72 93 09/09/24 07:30 09/09/24 07:00 74 O2 Del Method O2 Flow Rate FiO2 09/09/24 14:15 Nasal Cannula 3 09/09/24 14:00 Nasal Cannula 3 09/09/24 13:45 BiPAP 60 09/09/24 13:35 BiPAP 60 09/09/24 13:25 BiPAP 60 09/09/24 13:15 BiPAP 60 09/09/24 13:05 BiPAP 60 09/09/24 12:55 BiPAP 60 09/09/24 12:45 BiPAP 60 09/09/24 12:41 Mechanical Vent 09/09/24 12:37 70 09/09/24 12:35 BiPAP 09/09/24 12:25 Oxymask 15 09/09/24 12:15 Oxymask 15 09/09/24 12:05 Oxymask 15 09/09/24 11:55 Oxymask 15 09/09/24 11:45 Oxymask 15 09/09/24 08:55 Nasal Cannula 3 09/09/24 08:07 Nasal Cannula 3 09/09/24 07:30 Room Air 09/09/24 07:00 Laboratory Results bmp reviewed PG Care Time/CCT Total # of Minutes Spent Total Time Spent with Patient: Total time spent is greater than 50% in coordination of care (as documented) at patient's floor/unit and/or counseling patient: Coding Level of Care Code 95395 SUB INP/OBS CARE 3/50MIN Diagnoses Acute on chronic heart failure with preserved ejection fraction (HFpEF) I50.33 Acute hypercapnic respiratory failure J96.02 Paroxysmal atrial fibrillation I48.0 Hypersensitivity pneumonitis J67.9 Asymptomatic bacteriuria R82.71
[2024-09-09] MEDS: MYCOPHENOLATE MOFETIL 250 MG CAP PO SCH (19:54)
[2024-09-10 06:56] LABS: Calcium 8.2 mg/dl (8.6-10.3); Potassium 4.9 mmol/L (3.5-5.1)
[2024-09-10 07:01] LABS: BUN Creatinine Ratio 19.6 (10-20); Creatinine Clr Calc Pharmacy 16.9 ml/min
--- NOTE | 2024-09-10 09:11 | Pulmonology Progress Note ---
Date of Service September 10, 2024 Assessment & Plan (1) Dyspnea on minimal exertion: Plan: This has been the patient's primary complaint in the outpatient setting as well. This likely largely represents a multifactorial combination including his interstitial lung disease, COPD, CHF, and general deconditioning. His oxygen saturations have been well within normal limits. We would aim for a goal of 88% and above. Unfortunately, I feel as though the patient is having dyspnea is likely related to general deconditioning and equating it to hypoxemia which does not appear to be the case, even in his description. Would aim for a goal oxygen saturation of 88 or above, however the patient may respond better to a saturation of 90% or above. Certainly, there could be a degree of CHF in this patient as he does examine with bilateral peripheral edema and with a history of CKD and likely poor urine output. Agree with aggressive diuresis as tolerated. Patient appears to be at or near his baseline at this time. Likely stable for discharge to home with close follow-up with pulmonary as scheduled on 10/07/2024. (2) Hypoxemia: Plan: Appears to be at or near his baseline. Again, we will saturation 88 or above. That being said, the patient respond better to a saturation of 90% from an emotional perspective as he is fixated on this number. (3) COPD with emphysema: Plan: Patient is not bronchospastic on exam today. No need for parenteral steroids at this time. (4) Acute hypercapnic respiratory failure: Plan: Noted on VBG alone. Without other sequela of concerning exam findings or symptoms at this point. Certainly, this could be driving a degree of his hypoxia. Do not disagree with trial of BiPAP or NIV, however I am uncertain how well the patient will tolerate this moving forward. Patient has been tolerating his BiPAP somewhat throughout the night. Certainly this could be arranged in the outpatient setting if he were agreeable and/or it felt to be necessary or beneficial moving forward. Could certainly undergo outpatient polysomnography with recommendations based on this result. Would not delay discharge on this alone, however. (5) Pulmonary nodule: Plan: Suspicious LEFT upper lobe pulmonary lesion. Underwent robotic bronchoscopy yesterday. Pathology pending. Pulmonary clinic will reach out with results. Plan Thank you for allowing us to participate in the care of this patient. Pulmonary medicine will sign off at this time. Please feel free to reach out to us for any further recommendations or concerns Admission and Anticipated Discharge Date Admission Date: September 07, 2024 Subjective Patient seen and evaluated this morning. He reports a cough that is minimally productive. No hemoptysis. He has been intermittently wearing his BiPAP. Review of Systems Review of Systems: A complete 10 point review of systems was reviewed with the patient with pertinent positives and negatives as per history of present illness. All else were negative. Physical Exam Physical Exam: VITAL SIGNS Vital signs and nursing notes were reviewed. GENERAL 79-year-old male appearing his stated age who is in no acute distress. Communicates well with provider and answers questions appropriately. SKIN Without rashes or lesions. NOSE Midline and without cyanosis. MOUTH/OROPHARYNX Without perioral cyanosis. NECK Neck with FROM. LUNGS Chest wall evaluation demonstrates normal chest wall A:P diameter. Auscultation reveals diminished breath sounds. No wheezing noted. CARDIAC RRR with S1/S2. No murmur, rubs, or gallops appreciated. ABDOMEN Abdominal inspection demonstrates an obese abdomen. BS normoactive all four quadrants. No tenderness, palpable masses, or ascites noted. EXTREMITIES Nail clubbing not present. No peripheral cyanosis. Bilateral pretibial edema present. +3/5 radial palpated throughout. PSYCH A&Ox3 and cooperates fully with examiner. Pt is very pleasant and interacts well with examiner. Results & Data Results & Data Vital Signs (Past 12 Hours) Vital Signs Temp Pulse Pulse Resp BP Pulse Ox O2 Del Method 09/10/24 07:48 85 09/10/24 02:38 36.7 C 83 18 104/59 L 96 BiPAP 09/10/24 02:03 92 H 26 H 92 09/09/24 22:40 80 20 96 09/09/24 22:08 36.5 C 81 18 97/64 L 93 Nasal Cannula 09/09/24 21:57 76 O2 Flow Rate FiO2 09/10/24 07:48 09/10/24 02:38 09/10/24 02:03 40 09/09/24 22:40 40 09/09/24 22:08 3 09/09/24 21:57 PG Care Time/CCT Total # of Minutes Spent Total Time Spent with Patient: Total time spent is greater than 50% in coordination of care (as documented) at patient's floor/unit and/or counseling patient: Coding Level of Care Code 37696 SUB INP/OBS CARE 2/35MIN Diagnoses Dyspnea on minimal exertion R06.09 Hypoxemia R09.02 COPD with emphysema J43.9 Acute hypercapnic respiratory failure J96.02 Pulmonary nodule R91.1
[2024-09-10] MEDS: MYCOPHENOLATE MOFETIL 250 MG CAP PO SCH (10:37)
--- NOTE | 2024-09-10 13:53 | Hospitalist Progress Note ---
Date of Service September 10, 2024 Assessment & Plan (1) Acute on chronic heart failure with preserved ejection fraction (HFpEF): Plan: Difficult to interpret CXR due to underlying interstitial lung disease and legs likely always swollen from prior surgeries/ pulmonary hypertension from lung disease but BNP mildly increased and weight increased from prior will trial diuresis to see if this helps his breathing Bumex (home dose: 1mg daily) - HELD With increase in Cr Strict I&Os, Daily weights, Low Na diet Wean O2 as able, goal 88% now with AKIcreatinine 4.09, baseline ~3.3-3.4 - held bumex - NSS 500 cc bolus, encourage PO intake - recheck BMP this afternoon (2) Acute hypercapnic respiratory failure: Plan: Patient has known COPD and ILD. Recent 2step 07/2024 recommend 1L at rest, 2L with activity No confusion, slightly worse than VBG in July and did not require BiPAP Recommend BiPAP HS - but patient refusing. Will defer to outpatient pulm to arrange for home as currently pt states he will not use. Aim O2 sats 88-92% - ?secondary to turning up his oxygen inappropriately at home, pt unable to describe events or changes in saturations that cause him to titrate up his oxygen Pt seems to be at baseline - 95% on 2L today at rest. (3) Paroxysmal atrial fibrillation: Plan: Rate controlled on his usual carvedilol 25mg PO BID, will continue Eliquis resumed 12/4dose reduced given that he is less than 6 months below age for cut off and is having worsening renal function (4) Hypersensitivity pneumonitis: Plan: Consult pulmonary for advice ongoing for prednisone, planning on reduction as an outpatient Prednisone dose now < 20mg therefore will hold Bactrim prophylaxis Pulmonary consulted - Dyspnea on exertion likely multifactorial with deconditioning. Aim for oxygen saturation > 88% - S/p bronchoscopy 09/09, as scheduled outpatient - no acute findings, path pending - no indication for steroids, will continue outpatient taper Patient also on cellcept - prescribed by Dr. Gaytan, pulmonology in [place] - reports they have no intention of following up with him. - Discussed with pulmonology - will begin to taper off - Decrease dose to 1000mg qAM and 500mg qPM (5) Asymptomatic bacteriuria: Plan: No specific urinary symptoms, low probability of cause of fatigue and generalized weakness UC: Citrobacter freundii Patient remains asymptomatic and improving w/o abx so will continue to defer Plan VTE Prohyaxis - Eliquis resumed Disposition - continued inpatient stay, treating KATHY updated by phone 09/09 Admission and Anticipated Discharge Date Admission Date: September 07, 2024 Supervising Physician Co-Signing Physician Notes Attending Attestation - Chart reviewed in detail, care plan d/w JOSIE Martinez. I agree w/ the muniz components of her documentation with the following addition - * ACUTE KIDNEY INJURY in setting of CKD stage 4 Check bladder scan. Serial BMPs. In light of known mild systolic CHF (EF 40-45% on echo 04/2024) would avoid additional fluid unless hypotensive. Await cx's from recent bronch. Red Matthew MD Subjective patient seen lying in bed, reports feeling cold with a decreased room temperature. Feels that his breathing is back to normal. Discussed CPAP/BiPAPstates that he has a CPAP at home but he does not use this. When discussing using a BiPAP at home states that at the mass with anything like when he is here or what he is at home he would not use it as he is unable to sleep. Denies urinary symptoms reports decreased appetite. afib 80s Review of Systems Review of Systems: All systems reviewed & are unremarkable except as noted in Subjective Physical Exam Physical Exam: General: NAD, VS as above Resp: normal respiratory effort, lungs sounds clear, much improved from yesterday. Weaned down to 2L during my encounter CV: RRR, no murmur, Abd: normal bowel sounds, non tender, no hepatosplenomegaly Extremities: Moves all extremities, bilateral 2+ pitting edema - reports near baseline with hx of vein repair and injury Neuro: A&O x3, Skin: intact, no lesions noted Results & Data Results & Data Vital Signs (Past 12 Hours) Vital Signs Temp Pulse Pulse Pulse Resp BP Pulse Ox 09/10/24 11:50 98.1 F 75 18 122/69 97 09/10/24 10:01 97.5 F L 70 22 109/51 L 96 09/10/24 08:54 09/10/24 07:48 85 09/10/24 02:38 98.1 F 83 18 104/59 L 96 09/10/24 02:03 92 H 26 H 92 O2 Del Method O2 Flow Rate FiO2 09/10/24 11:50 Nasal Cannula 3 09/10/24 10:01 Nasal Cannula 3.5 09/10/24 08:54 Nasal Cannula 3 09/10/24 07:48 09/10/24 02:38 BiPAP 09/10/24 02:03 40 Laboratory Results BMP reviewed PG Care Time/CCT Total # of Minutes Spent Total Time Spent with Patient: Total time spent is greater than 50% in coordination of care (as documented) at patient's floor/unit and/or counseling patient: Coding Level of Care Code 47047 SUB INP/OBS CARE 3/50MIN Diagnoses Acute on chronic heart failure with preserved ejection fraction (HFpEF) I50.33 Acute hypercapnic respiratory failure J96.02 Paroxysmal atrial fibrillation I48.0 Hypersensitivity pneumonitis J67.9 Asymptomatic bacteriuria R82.71
[2024-09-10] MEDS: SODIUM CHLORIDE 0.9% 500 ML IV ONE (14:39)
[2024-09-10 16:21] LABS: BUN Creatinine Ratio 19.3 (10-20); Calcium 7.9 mg/dl (8.6-10.3); Creatinine Clr Calc Pharmacy 16.7 ml/min; Potassium 5.1 mmol/L (3.5-5.1)
[2024-09-10] MEDS: APIXABAN 2.5 MG TAB PO SCH (21:07)
[2024-09-11 08:15] LABS: Creatinine Clr Calc Pharmacy 15.7 ml/min
--- NOTE | 2024-09-11 11:43 | Hospitalist Progress Note ---
Date of Service September 11, 2024 Assessment & Plan (1) Acute on chronic heart failure with preserved ejection fraction (HFpEF): Plan: Difficult to interpret CXR due to underlying interstitial lung disease and legs likely always swollen from prior surgeries/ pulmonary hypertension from lung disease but BNP mildly increased and weight increased from prior will trial diuresis to see if this helps his breathing Bumex (home dose: 1mg daily) - HELD With increase in Cr Strict I&Os, Daily weights, Low Na diet now with AKIcreatinine 4.3, baseline ~3.3-3.4 - held bumex. Recieved 500cc bolus without improvement. - PVR 276 - Recheck UA. Check urine Cr and Na - Nephrology consulted, appreciate recs AM BMP (2) Acute hypercapnic respiratory failure: Plan: Patient has known COPD and ILD. Recent 2step 07/2024 recommend 1L at rest, 2L with activity No confusion, slightly worse than VBG in July and did not require BiPAP Recommend BiPAP HS - but patient refusing. Will defer to outpatient pulm to arrange for home as currently pt states he will not use. Aim O2 sats 88-92% - ?secondary to turning up his oxygen inappropriately at home, pt unable to describe events or changes in saturations that cause him to titrate up his oxygen Pt seems to be at baseline - stable on 2L at rest. (3) Paroxysmal atrial fibrillation: Plan: Rate controlled on his usual carvedilol 25mg PO BID, will continue Eliquis resumed 12/4dose reduced given that he is less than 6 months below age for cut off and is having worsening renal function (4) Hypersensitivity pneumonitis: Plan: Consult pulmonary for advice ongoing for prednisone, planning on reduction as an outpatient Prednisone dose now < 20mg therefore will hold Bactrim prophylaxis Pulmonary consulted - Dyspnea on exertion likely multifactorial with deconditioning. Aim for oxygen saturation > 88% - S/p bronchoscopy 09/09, path consistent with squamous cell cancer - Dr. Perdomo reviewed these results with patient. Not amendable to surgical resection. consider radiation - no indication for steroids, will continue outpatient taper Patient also on cellcept - prescribed by Dr. Gaytan, pulmonology in [place] - reports they have no intention of following up with him. - Discussed with pulmonology - will begin to taper off - Decrease dose to 1000mg qAM and 500mg qPM (5) Asymptomatic bacteriuria: Plan: No specific urinary symptoms, low probability of cause of fatigue and generalized weakness UC: Citrobacter freundii Patient remains asymptomatic and improving w/o abx so will continue to defer Plan VTE Prohyaxis - Eliquis resumed Disposition - continued inpatient stay, treating KATHY updated by phone 09/09 Admission and Anticipated Discharge Date Admission Date: September 07, 2024 Supervising Physician Co-Signing Physician Notes Attending Attestation - Chart reviewed in detail, care plan d/w JOSIE Martinez. I agree w/ the muniz components of her documentation with the following additions - * ACUTE KIDNEY INJURY in setting of CKD stage 4 * Squamous cell lung cancer - new dx based on bronch biopsies Nephrology consult requested for KATHY - creatinine again worse today. Patient had low BPs early in the admission thus prerenal in etiology more than likely. Check FeNa although likely will be inaccurate due to chronic diuretic use. Recheck u/a for casts. Consider kramer but hold for now. Appreciate nephrology & pulmonary consults. Red Matthew MD Subjective Patient seen sitting up in the chair. Reports feeling alittle worse than the last few days, reporting waking up with a headache after attempting to use the bipap overnight. Breathing feels about the same - he is on two liters. Still denies urinary symptoms. Tele - Afib 70-80s Review of Systems Review of Systems: All systems reviewed & are unremarkable except as noted in Subjective Physical Exam Physical Exam: General: NAD, VS as above HEENT: mucous membranes pink + moist, no erythema, Resp: normal respiratory effort, lungs sounds clear, on 2L NC CV: RRR, no murmur, no JVD Abd: normal bowel sounds, non tender, no hepatosplenomegaly Extremities: Moves all extremities, bilateral 2+ pitting edema - reports near baseline with hx of vein repair and injury. Dialysis fistula present right hand/arm. Neuro: A&O x3, Skin: intact, no lesions noted Results & Data Results & Data Vital Signs (Past 12 Hours) Vital Signs Temp Pulse Pulse Resp BP Pulse Ox O2 Del Method 09/11/24 08:00 Nasal Cannula, BiPAP 09/11/24 08:00 81 09/11/24 07:52 98.2 F 59 L 16 110/71 99 Nasal Cannula 09/11/24 04:19 96 H 18 100/63 100 BiPAP 09/11/24 00:00 88 09/10/24 23:50 71 23 96 O2 Flow Rate FiO2 09/11/24 08:00 2 09/11/24 08:00 09/11/24 07:52 4 09/11/24 04:19 09/11/24 00:00 09/10/24 23:50 40 Laboratory Results BMP reviewed PG Care Time/CCT Total # of Minutes Spent Total Time Spent with Patient: Total time spent is greater than 50% in coordination of care (as documented) at patient's floor/unit and/or counseling patient: Coding Level of Care Code 62534 SUB INP/OBS CARE 3/50MIN Diagnoses Acute on chronic heart failure with preserved ejection fraction (HFpEF) I50.33 Acute hypercapnic respiratory failure J96.02 Paroxysmal atrial fibrillation I48.0 Hypersensitivity pneumonitis J67.9 Asymptomatic bacteriuria R82.71
--- NOTE | 2024-09-11 15:51 | Nephrology Consultation ---
Date of Consultation September 11, 2024 Assessment & Plan (1) Acute kidney injury: Non-oliguric. Electrolytes acceptable. Volume status acceptable. No clear uremic symptoms. There is no emergent indication for dialysis at this time. KATHY attributed to intravascular volume depletion from diuretics. Bumex has been held. Volume status reasonable at this time. Continue to monitor. Medications are appropriate for kidney dysfunction. Document strict I/O's. Repeat metabolic profile tomorrow AM. Renal diet. (2) Chronic kidney disease, stage IV (severe): CKD IV-V. 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 Follows with Dr. Perry as an outpatient. R RC AVF mature for use. US requested to evaluate for possible stenosis. (3) Anemia: Chronic, stable. Maintained on Procrit as outpatient. Epogen 86645 units + 200 mg IV Venofer provided now. Check iron profile with AM labs. History of Present Illness Reason for Consultation: worsening KATHY on CKD Requesting Physician: Red Matthew MD Attending Physician: Red Matthew MD History of Present Illness Mr. Manuel De La Cruz is a 79 year-old male with interstitial lung disease, COPD, prior history of smoking, obstructive sleep apnea, restrictive lung disease, chronic respiratory failure with hypoxia, coronary artery disease, HFmrEF, PAD, history of B-cell lymphoma, and chronic kidney disease IV-V. Manuel follows in the [facility] nephrology clinic with Dr. Perry. Baseline creatinine ~3.0-3.5 mg/dL. 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 Manuel has not had significant proteinuria. In 2019, he developed KATHY requiring temporary hemodialysis during acute illness while undergoing treatment with R-CHOP for B- cell lymphoma. He has a mature R RC AVF. Manuel was admitted to [facility] with progressive shortness of breath and generalized weakness. He was admitted to [facility] in July with a similar presentation of CHF and COPD. He has also been dealing with a burst fracture of T5. Manuel was seen and evaluated in his hospital room earlier today. He was resting comfortably in his bedside chair on supplemental O2. Manuel describes significant generalized weakness. He states that his activity tolerance has been poor and generally getting worse. He reports TREVINO with minimal activity. Manuel reports that his son-in-law had brought up the question regarding whether dialysis may help mitigate some of his symptoms. Manuel is not sure that he would like to restart dialysis unless it was definitely going to make him feel better. Allergies Allergy/AdvReac Type Severity Reaction Status Date / Time No Known Allergies Allergy Verified 09/07/24 16:25 Home Medications Medication Instructions Recorded Confirmed Type atorvastatin 80 mg tablet (Lipitor) 80 mg PO HS #0 tabs 12/21/14 09/07/24 History clopidogrel 75 mg tablet 0 mg PO QAM 09/15/21 09/07/24 History nebulizers (Aeroneb Go Nebulizer) #1 ea 09/19/23 09/07/24 Rx Portable Oxygen 12/11/23 09/07/24 History carvedilol 25 mg tablet 25 mg PO BID #180 tabs 04/21/24 09/07/24 Rx ipratropium 0.5 mg-albuterol 3 mg 3 ml inhalation DIRECTED PRN 06/10/24 09/07/24 History (2.5 mg base)/3 mL nebulization Other soln sertraline 100 mg tablet 100 mg PO QAM 06/10/24 09/07/24 History bumetanide 1 mg tablet 1 mg PO QAM 07/17/24 09/07/24 History mycophenolate mofetil 500 mg tablet 500 mg PO BID 07/17/24 09/07/24 History pantoprazole 40 mg tablet,delayed 40 mg PO QAM 07/17/24 09/07/24 History release sulfamethoxazole 800 1 tab PO 3XWK 07/17/24 09/07/24 History mg-trimethoprim 160 mg tablet cyclobenzaprine 5 mg tablet 5 mg PO TID PRN Muscle Spasms 08/29/24 09/07/24 History apixaban 5 mg tablet (Eliquis) 0 mg PO BID 09/07/24 09/07/24 History epoetin neptali 40,000 unit/mL 40,000 unit subcut MONTHLY 09/07/24 09/07/24 History injection solution (Procrit) prednisone 20 mg tablet 15 mg PO DAILY 09/07/24 09/07/24 History Patient History Medical History Hx of sinus bradycardia Mild mitral regurgitation Mild aortic stenosis No aortic stenosis noted on 04/07/24 ECHO Restrictive lung disease Chronic respiratory failure with hypoxia currently on continuous oxygen 1-4 lpm [place] (hard of hearing) Hx of fracture of nose early 08/2024, 2/2 to fall; "healing up just fine now" Weakness of both legs Port-A-Cath in place placed in 2018, "no longer works" Multiple pulmonary nodules PAD (peripheral artery disease) Hypercholesteremia GERD (gastroesophageal reflux disease) Dyspnea on minimal exertion Per pulm- likely multifactorial due to combinations of his underlying lung disease, obesity, deconditioning, possible myopathy due to long-term steroid use, as well as heart failure and kidney failure. B-cell lymphoma dx ~2019 or before, in liver, chemo tx. On home oxygen therapy 1-4L continuous, via n/c Closed stable burst fracture of fifth thoracic vertebra f/u chiropractor recently COPD (chronic obstructive pulmonary disease) w/emphysema Paroxysmal atrial fibrillation f/u [facility] cardio on Eliquis HFrEF (heart failure with reduced ejection fraction) f/u mariah heranndez cardio EF 40-44% on 04/2024 ECHO CHF exacerbation (admitted to [facility] 07/17/24-07/19/24) Chronic kidney disease, stage IV (severe) f/u dr. [place] [facility] ILD (interstitial lung disease) Anemia Chronic anticoagulation Cardiomyopathy Situational depression Left leg DVT ~ Anorexia Weight loss Pneumonia due to COVID-19 virus 2020, admitted to [facility] "almost intubated"; "feels lung damage is due to him having covid" COVID-19 hx, 2020, admitted to [place] "and was almost intubated, still feels that the damage to the lungs is from covid" Osteoarthritis Chronic back pain Hemodialysis patient last dialysis February 11, 2019; nephrology has since stopped dialysis follows with dr perry al neph. Sleep apnea non-compliant; currently on continuous oxygen 1-4 lpm Hearing deficit Peripheral vascular disease right LE femoral femoral bypass Peripheral neuropathy Scrotal swelling "ongoing" Coronary artery disease s/p stent in Surgical History S/P arteriovenous (AV) fistula creation 2018, rt arm/wrist S/P arteriovenous (AV) fistula repair 05/2023, rt arm/wrist History of esophagogastroduodenoscopy (EGD) History of colonoscopy History of heart artery stent , unsure which hospital, x1 stent; f/u [facility] cardio History of cardiac cath , unsure where, x1 stent; f/u mariah zamora S/P femoral-femoral bypass surgery right leg H/O vascular surgery removal DVT History of lumbar discectomy L4-L5, in History of umbilical hernia repair Family History Mother FHx: lung cancer FHx: uterine cancer Other Allergy Cancer Diabetes Heart disease Lung cancer Lung disease Denies family history of Tuberculosis Emphysema of lung Asthma Social History Smoking Status: Former smoker Tobacco Type: Cigarettes packs per day: 1; Second Hand Exposure: No; Do You Dip or Chew Tobacco: No; Tobacco Cessation Education Requested by Patient: No Hx Alcohol Use: No Hx Substance Use: No Preferred Language: Welsh Communication Ability: Effective Spar Finisher Required: No Beliefs That Will Affect Care: None Current Living Situation: Spouse Current Living Situation Comment: -Sandra Other Information That Helps Us Care for You: No Feels Safe at Home: Yes Safety Concerns: Feels Safe At This Time Assistive Devices: Glasses, Oxygen - Continuous and Walker Review of Systems Review of Systems: All systems reviewed & are unremarkable except as noted in HPI & below Physical Exam Constitutional: well developed and + frail appearing; no acute distress Eyes: + anicteric sclerae; no conjunctival abn ormality ENMT: Mouth: no oral mucosal abnormality and oral mucous membranes not dry Neck: normal visual inspection and trachea midline Respiratory: normal respiratory effort Auscultation: lungs clear to auscultation bilaterally Cardiovascular: Rate/Rhythm: regular rate Heart Sounds: normal S1 and normal S2 Extremities: + pedal edema (pretibial) and + AV fistula (high pitched bruit, +thrill) Musculoskeletal: Extremities: no cyanosis and no clubbing Skin: no jaundice Neurologic: Motor/Sensory: no tremor and no asterixis Psychiatric: Orientation: alert and oriented x 3 Results & Data Vital Signs (Past 12 Hours) Vital Signs Temp Pulse Pulse Resp BP Pulse Ox O2 Del Method 09/11/24 15:14 71 09/11/24 11:43 36.5 C 76 18 142/75 H 100 Nasal Cannula 09/11/24 08:00 Nasal Cannula, BiPAP 09/11/24 08:00 81 09/11/24 07:52 36.8 C 59 L 16 110/71 99 Nasal Cannula 09/11/24 04:19 96 H 18 100/63 100 BiPAP O2 Flow Rate 09/11/24 15:14 09/11/24 11:43 09/11/24 08:00 2 09/11/24 08:00 09/11/24 07:52 4 09/11/24 04:19 Laboratory Results Laboratory Results - last 24 hr 09/10/24 09/11/24 15:53 07:38 Sodium 141 142 Potassium 5.1 5.0 Chloride 105 105 Carbon Dioxide 31 29 Anion Gap 5 8 BUN 80 H 86 H Creatinine 4.15 H 4.30 H Est Cr Clr Drug Dosing 16.7 15.7 eGFR 13.88 13.30 BUN/Creatinine Ratio 19.3 20.0 Glucose 201 H 126 H Calcium 7.9 L 8.0 L Diagnostic Findings XR chest 1V portable COMPARISON STUDY: Chest CT September 25, 2024. Chest radiograph September 09, 2024. PET/CT August 13, 2024. FINDINGS: Left internal jugular [id number] is unchanged in position. There is no pneumothorax status post bronchoscopy. Left upper lung opacity is present with there is also left basilar opacity with low lung volumes. Mediastinal prominence is unchanged. There is pulmonary vascular congestion. IMPRESSION: 1. No pneumothorax status post bronchoscopy. 2. Left upper lung opacity which may be related to bronchoscopy. PG Care Time/CCT Total # of Minutes Spent Total Time Spent with Patient: Total time spent is greater than 50% in coordination of care (as documented) at patient's floor/unit and/or counseling patient: Coding Level of Care Code 15918 IN/OBS CONSULT LVL 4,60M Diagnoses Acute kidney injury N17.9 Chronic kidney disease, stage IV (severe) N18.4 Anemia due to stage 4 chronic kidney disease N18.4; D63.1 Anemia type: due to chronic kidney disease Chronic kidney disease stage: stage 4 (severe) (3) Anemia Anemia type: due to chronic kidney disease Chronic kidney disease stage: stage 4 (severe) Qualified Code(s): N18.4 - Chronic kidney disease, stage 4 (severe); D63.1 - Anemia in chronic kidney disease
--- NOTE | 2024-09-11 15:54 | Ultrasound Report ---
US hemodialysis fistula HISTORY: 79 years-old Male evaluate for stenosis acute pain of the right upper extremity COMPARISON: None TECHNIQUE: Duplex Doppler was obtained assessing grayscale appearance, color and spectral flow FINDINGS: Right upper arterial venous fistula involving the cephalic vein and radial artery. The fistula is pat ent. Peak systolic velocities of the radial artery anastomosis are 65 cm/s and at the fistula measure s 358 cm/s. No thrombus identified. No high-grade stenosis is seen. IMPRESSION: Patent AV fistula. ACT 112: Negative or not required by law. The above report was generated using voice recognition software. It may contain grammatical, syntax o r spelling errors. Electronically signed by: Usama Villarreal M.D. 09/11/2024 3:53 PM
--- NOTE | 2024-09-11 16:13 | Pulmonology Progress Note ---
Date of Service September 11, 2024 Assessment & Plan (1) Dyspnea on minimal exertion: (2) Hypoxemia: (3) COPD with emphysema: (4) Acute hypercapnic respiratory failure: (5) Pulmonary nodule: (6) Squamous cell carcinoma of left lung: Plan Impression: 79-year-old male with interstitial lung disease, presumptively diagnosed as hypersensitivity pneumonitis on steroids for 12 months with an increasing left upper lobe pulmonary nodule which shows some PET avidity. He is status post robotic bronchoscopy with biopsy unfortunately demonstrating small focus of squamous cell carcinoma. He is Progressive edema and fluid retention with worsening kidney function Recommendations: 1. Interstitial lung disease: Continue slow taper of steroids 2. COPD: Patient is currently using nebulized therapies and oxygen. Continue oxygen titrate to keep saturations at or above 88%. 3. Hypoxemic respiratory failure: Continue oxygen titrated to keep saturations at or above 88% 4. Dyspnea on exertion: Likely multifactorial due to combinations of his underlying lung disease, obesity, deconditioning, possible myopathy due to long- term steroid use, as well as heart failure and kidney failure. May consider pulmonary outpatient rehab if the patient can be stabilized. This point in time he demonstrates significant fluid overload and retention. Unclear if dialysis might be beneficial 5. Squamous cell lung cancer: Results relayed to the patient. This appears to be fairly localized and is not causing any of his current symptoms. Do not think given his medical comorbidities that he is a candidate for surgical resection. SBRT would be an option however the patient would need to lie flat. Consider consultation with radiation oncology once the patient is medically stable. 6. Palliative care consultations may be appropriate. The above recommendations and plan were discussed with the attending hospitalist at bedside. Feel free to contact pulmonary with additional questions or concerns. Would be happy to follow-up with him in the outpatient setting once dismissed from the hospital Admission and Anticipated Discharge Date Admission Date: September 07, 2024 Subjective Visited patient in the hospital with his son-in-law in attendance to follow-up on his bronchoscopy. The patient initially required BiPAP but now has been weaned to oxygen by nasal cannula. He continues to feel his baseline shortness of breath is poor. He is noting progressive lower extremity edema. Nephrology has been consulted. He is open to the prospect of dialysis should it be necessary. The patient has not had any cough associated with the bronchoscopy nor is he had any chronic sputum production or hemoptysis. He tolerated the procedure reasonably well Review of Systems 2 Review of Systems: All systems reviewed & are unremarkable except as noted in Subjective Physical Exam 2 Physical Exam: VITAL SIGNS Vital signs and nursing notes were reviewed. GENERAL 79-year-old male appearing his stated age who is in no acute distress. Communicates well with provider and answers questions appropriately. SKIN Without rashes or lesions. NOSE Midline and without cyanosis. MOUTH/OROPHARYNX Without perioral cyanosis. NECK Neck with FROM. LUNGS Chest wall evaluation demonstrates normal chest wall A:P diameter. Auscultation reveals diminished breath sounds. No wheezing noted. CARDIAC RRR with S1/S2. No murmur, rubs, or gallops appreciated. ABDOMEN Abdominal inspection demonstrates an obese abdomen. BS normoactive all four quadrants. No tenderness, palpable masses, or ascites noted. EXTREMITIES Nail clubbing not present. No peripheral cyanosis. Bilateral pretibial edema present. +3/5 radial palpated throughout. PSYCH A&Ox3 and cooperates fully with examiner. Pt is very pleasant and interacts well with examiner. Results & Data Results & Data Vital Signs (Past 12 Hours) Vital Signs Temp Pulse Pulse Resp BP Pulse Ox O2 Del Method 09/11/24 16:06 36.7 C 95 H 18 146/81 H 96 Nasal Cannula 09/11/24 15:14 71 09/11/24 11:43 36.5 C 76 18 142/75 H 100 Nasal Cannula 09/11/24 08:00 Nasal Cannula, BiPAP 09/11/24 08:00 81 09/11/24 07:52 36.8 C 59 L 16 110/71 99 Nasal Cannula 09/11/24 04:19 96 H 18 100/63 100 BiPAP O2 Flow Rate 09/11/24 16:06 09/11/24 15:14 09/11/24 11:43 09/11/24 08:00 2 09/11/24 08:00 09/11/24 07:52 4 09/11/24 04:19 Laboratory Results 09/08/24 05:40 09/11/24 07:38 Clinical History Smoker, increasing 16mm left upper lobe mass, hot on PET. History of interstitial lung disease. Procedure performed: Left upper lobe lung biopsy. FINAL DIAGNOSIS Lung, left upper lobe, forceps biopsy: - Small focus of squamous cell carcinoma present. - See comment. Comment: The initial H&E section shows benign bronchoalveolar tissue. However on deeper levels there is a small focus of squamous cell carcinoma comprised approximately of 50-60 cells and measuring no greater than 1 mm. The findings are consistent with an invasive nonkeratinizing squamous cell carcinoma. The specimen will be sent for PD-L1 testing, though PD-L1 evaluation requires 100 cells to establish a negative result. That will be reported in an addendum PG Care Time/CCT Total # of Minutes Spent Total Time Spent with Patient: Total time spent is greater than 50% in coordination of care (as documented) at patient's floor/unit and/or counseling patient: Coding Level of Care Code 68050 SUB INP/OBS CARE 3/50MIN Diagnoses Dyspnea on minimal exertion R06.09 Hypoxemia R09.02 COPD with emphysema J43.9 Acute hypercapnic respiratory failure J96.02 Pulmonary nodule R91.1 Squamous cell carcinoma of left lung C34.92
[2024-09-11] MEDS: IRON SUCROSE 200 MG in SODIUM CHLORIDE 0.9% 100 ML IV ONE (17:38)
[2024-09-11] MEDS: EPOETIN ALFA 40,000 UNITS/ML VIAL SQ STA (17:38)
[2024-09-12 03:29] LABS: Creatinine Urine Random 77.3 mg/dl
[2024-09-12 03:32] LABS: Appearance Urine Turbid (Clear); Bacteria Urine Automated 4+ (None Seen); Bilirubin Urine Negative (Negative); Blood Urine 3+ (Negative); Color Urine Yellow; Epithelial Cell Urine Auto 0-2 /hpf (0-2); Glucose Urine UA Negative (Negative); Ketones Urine Negative (Negative); Leukocyte Esterase Urine 3+ (Negative); Nitrite Urine Negative (Negative); Protein Urine 2+ (Negative); RBC Urine Automated >20 /hpf (0-2); Specific Gravity Urine 1.013 (1.000-1.030); Urobilinogen Urine Negative (Negative); WBC Urine Automated >50 /hpf (0-5); pH Urine 5.5 (4.5-7.5)
[2024-09-12 06:11] LABS: Hematocrit (blood only) 28.3 % (42.0-52.0); Hemoglobin 8.2 g/dl (14.0-18.0); Mean Corpuscular Hemoglobin 30.8 pg (25.0-34.0); Mean Corpuscular Volume 106.4 fL (80.0-100.0); Mean Platelet Volume 10.4 fL (9.4-12.4); Platelet Count 121 K/uL (130-400); RDW Coefficient of Variation 15.1 % (11.5-14.5); Red Blood Count 2.66 M/uL (4.70-6.10); White Blood Count 6.49 K/ul (4.8-10.8)
[2024-09-12 06:34] LABS: Anion Gap 8 (3-11); BUN Creatinine Ratio 20.3 (10-20); Blood Urea Nitrogen 85 mg/dl (6-23); Calcium 8.1 mg/dl (8.6-10.3); Carbon Dioxide 30 mmol/L (21-32); Chloride 104 mmol/L (98-107); Creatinine Clr Calc Pharmacy 16.2 ml/min; Glucose 107 mg/dl (70-99(Fasting)); Potassium 4.7 mmol/L (3.5-5.1); Sodium 142 mmol/L (136-145)
[2024-09-12 06:37] LABS: Alanine Aminotransferase 27 U/L (7-52); Albumin Globulin Ratio 2.2 (0.9-2); Albumin Level 3.5 gm/dl (3.4-5.0); Alkaline Phosphatase 37 U/L (34-104); Aspartate Aminotransferase 12 U/L (13-39); Bilirubin,Total 0.3 mg/dl (0.2-1.0); Globulin 1.6 gm/dl (2.5-4.0); Iron 230 mcg/dl (35-175); Total Protein 5.1 gm/dl (6.0-8.3); Unsaturated Iron Binding Cap < 55 mcg/dl (155-355)
[2024-09-12 06:53] LABS: Ferritin 276.2 ng/ml (8-388)
[2024-09-12] MEDS: IRON SUCROSE 200 MG in SODIUM CHLORIDE 0.9% 100 ML IV ONE (09:24)
--- NOTE | 2024-09-12 12:42 | Nephrology Progress Note ---
Date of Service September 12, 2024 Assessment & Plan (1) Acute kidney injury: Plan: Non-oliguric. Electrolytes acceptable. Volume status acceptable. Manuel does not endorse symptoms of uremia. I suspect his weakness and dyspnea are largely related to ILD, COPD, malignancy, and chronic CHF + pulmonary hypertension. He has evidence of predominately right heart failure. Some permissive rise in creatinine is to be accepted while managing volume status. There is no emergent indication for dialysis at this time. Given his multiple medical comorbidities and frailty, I would not expect dialysis to provide significant therapeutic benefit. Today, I advised gentle diuresis while monitoring kidney function closely. Bumex 1 mg was provided with IV iron today. Please document strict IO's and repeat a metabolic profile tomorrow. KATHY attributed to intravascular volume depletion from diuretics. Renal US will be obtained for completeness. Urine studies on admission demonstrating evidence of cystitis. Culture obtained today is pending. Medications are appropriate for kidney dysfunction. Renal diet. (2) Chronic kidney disease, stage IV (severe): Plan: CKD IV-V. 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 Follows with Dr. Kearns as an outpatient. Previously maintained on HD in [place]. R RC AVF mature for use. US requested to evaluate for possible stenosis. (3) Anemia: Plan: Epogen 87089 units + 200 mg IV Venofer provided yesterday. Additional 200 mg Venofer provided today. B complex ordered. (4) Squamous cell carcinoma of left lung: Plan: Oncology consultation pending. Admission and Anticipated Discharge Date Admission Date: September 07, 2024 Subjective I met with Manuel is his hospital room this morning. At Manuel's request, I spoke with his son-in-law by phone. Manuel continues to feel reasonably well. He is resting comfortably in his bedside chair. Edema persists. Dyspnea has improved since admission. Weakness persists. No fevers or chills. Manuel told me this morning that he was ready to restart dialysis. He was hopeful that dialysis would help manage his fluid retention and improve his strength. He recalls tolerating hemodialysis reasonably well when he was on treatments in the past. He remains non-oliguric. He is processing the diagnosis of SCC in his lung but hopeful that he can manage with radiation therapy. Review of Systems Review of Systems: All systems reviewed & are unremarkable except as noted in HPI & below Physical Exam Constitutional: well developed and + frail appearing; no acute distress Eyes: + anicteric sclerae; no conjunctival abn ormality ENMT: Mouth: no oral mucosal abnormality and oral mucous membranes not dry Neck: normal visual inspection and trachea midline Respiratory: normal respiratory effort Auscultation: lungs clear to auscultation bilaterally and + rales Cardiovascular: Rate/Rhythm: regular rate Heart Sounds: normal S1 and normal S2 Extremities: + edema and + AV fistula Musculoskeletal: Extremities: no cyanosis and no clubbing Skin: no jaundice Neurologic: Motor/Sensory: no tremor and no asterixis Psychiatric: Orientation: alert and oriented x 3 Results & Data Vital Signs (Past 12 Hours) Vital Signs Temp Pulse Pulse Resp BP Pulse Ox O2 Del Method 09/12/24 11:03 36.7 C 83 106/68 92 Nasal Cannula 09/12/24 07:47 36.8 C 84 119/55 L 98 Nasal Cannula 09/12/24 07:29 Nasal Cannula 09/12/24 05:41 75 09/12/24 04:00 36.8 C 90 20 146/84 H 99 Nasal Cannula O2 Flow Rate 09/12/24 11:03 2 09/12/24 07:47 3.5 09/12/24 07:29 09/12/24 05:41 09/12/24 04:00 4 Laboratory Results Laboratory Results - last 24 hr 09/12/24 09/12/24 05:20 Unknown WBC 6.49 RBC 2.66 L Hgb 8.2 L Hct 28.3 L MCV 106.4 H MCH 30.8 MCHC 29.0 L RDW Std Deviation 60.0 H RDW Coeff of [place] 15.1 H Plt Count 121 L MPV 10.4 Sodium 142 Potassium 4.7 Chloride 104 Carbon Dioxide 30 Anion Gap 8 BUN 85 H Creatinine 4.19 H Est Cr Clr Drug Dosing 16.2 eGFR 13.72 BUN/Creatinine Ratio 20.3 H Glucose 107 H Calcium 8.1 L Iron 230 H TIBC TNP Unsaturated IBC < 55 L Transferrin % Sat TNP Ferritin 276.2 Total Bilirubin 0.3 AST 12 L ALT 27 Alkaline Phosphatase 37 Total Protein 5.1 L Albumin 3.5 Globulin 1.6 L Albumin/Globulin Ratio 2.2 H Urine Color Yellow Urine Appearance Turbid A Urine pH 5.5 Ur Specific [place] 1.013 Urine Protein 2+ H Urine Glucose (UA) Negative Urine Ketones Negative Urine Blood 3+ H Urine Nitrite Negative Urine Bilirubin Negative Urine Urobilinogen Negative Ur Leukocyte Esterase 3+ H Urine WBC (Auto) >50 H Urine RBC (Auto) >20 H U Hyaline Cast (Auto) 3-5 H U Epithel Cells (Auto) 0-2 Urine Bacteria (Auto) 4+ H Ur Random Creatinine 77.3 Ur Random Sodium 29 PG Care Time/CCT Total # of Minutes Spent Total Time Spent with Patient: Total time spent is greater than 50% in coordination of care (as documented) at patient's floor/unit and/or counseling patient: Coding Level of Care Code 58577 SUB INP/OBS CARE 3/50MIN Diagnoses Acute kidney injury N17.9 Chronic kidney disease, stage IV (severe) N18.4 Anemia due to stage 4 chronic kidney disease N18.4; D63.1 Anemia type: due to chronic kidney disease Chronic kidney disease stage: stage 4 (severe) Squamous cell carcinoma of left lung C34.92 (3) Anemia Anemia type: due to chronic kidney disease Chronic kidney disease stage: stage 4 (severe) Qualified Code(s): N18.4 - Chronic kidney disease, stage 4 (severe); D63.1 - Anemia in chronic kidney disease
[2024-09-12] MEDS: VITAMIN B COMPLEX TAB PO SCH (13:07)
[2024-09-12] MEDS: BUMETANIDE 1 MG TAB PO SCH (13:07)
--- NOTE | 2024-09-12 13:35 | Radiation OncologyConsultation ---
Date of Consultation September 12, 2024 Assessment & Plan (1) Squamous cell carcinoma of left lung: Plan ATTENDING ADDENDUM Assessment: Mr. 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 The patient has been admitted to the hospital for multiple medical issues unrelated to his lung cancer. We have been asked to evaluate the patient regarding the role of radiation therapy for his lung cancer. Recommendation: SBRT for treatment of left upper lobe lung cancer. Plan: 1. Follow-up in the outpatient setting after patient has been discharged from hospital. Plan for same-day CT simulation. 2. Continue follow-up with all other providers including medical oncology and pulmonary medicine. 3. Patient and family encouraged to call us with any further questions or concerns. History of Present Illness Reason for Consultation: Squamous cell carcinoma of the left upper lobe. Requesting Physician: Red Winchester MD Attending Physician: Red Matthew MD History of Present Illness 79-year-old gentleman with a known history of diffuse large B-cell lymphoma. Followed by [facility]CP. He was treated with 6 cycles of R-CHOP that completed 04/17/2019. He was seen for continued surveillance. He was seen by Dr. Casas and PET/CT was ordered. 08/13/2024. PET/CT. 1. 1.1 cm hypermetabolic subpleural solid nodule within the left upper lobe is suggestive of malignancy. 2. Chronic interstitial lung disease with the remainder of the previously described subcentimeter solid nodules not well visualized, likely too small for PET characterization. 3. No pathologically enlarged or hypermetabolic lymph nodes identified within the neck, chest, abdomen or pelvis. 4. Healing subacute nondisplaced anterior right eighth rib fracture and healing T5 burst fracture. 08/20/2024. Medical oncology follow-up. Review of PET/CT. Patient is referred to pulmonary to evaluate the PET positive left upper lobe lung lesion. Patient has a known history of kidney disease and is followed by nephrology. 3 years ago he did require dialysis. His kidney function improved and he was able to go off dialysis. He also has known COPD. He is oxygen dependent. Using oxygen at 3 to 4 L/min at home. He follows his pulse oximetry closely. 09/07/2024. Admission for acute and chronic heart failure with preserved ejection fraction. Acute hypercapnic respiratory failure. Paroxysmal atrial fibrillation. Hypertensive pneumonitis. And asymptomatic bacteremia. 09/08/2024. Pulmonary consultation. Patient has suspicious left upper lobe pulmonary lesion. Patient has agreed to robotic bronchoscopy. 09/09/2024. Navigational bronchoscopy with biopsies. He did not have pathologically enlarged mediastinal lymph nodes. Path report from the left upper lobe forceps biopsy did show small focus of squamous cell carcinoma present. 09/11/2024. Nephrology consultation (Dr. Jasso). Recommendation was given in regards to the chronic renal disease. Patient will follow-up with Dr. Perry as an outpatient. 09/11/2024. Pulmonary follow-up. Review of pathology. Due to patient's comorbidities he is not a surgical candidate. SBRT would be an option once the patient has become more medically stable. 09/12/2024. Radiation oncology consultation. Patient currently admitted to the hospital. Patient has multiple medical comorbidities. Plan is to see the patient in outpatient setting to discuss radiation therapy. Allergies Allergy/AdvReac Type Severity Reaction Status Date / Time No Known Allergies Allergy Verified 09/07/24 16:25 Home Medications Medication Instructions Recorded Confirmed Type atorvastatin 80 mg tablet (Lipitor) 80 mg PO HS #0 tabs 12/21/14 09/07/24 History clopidogrel 75 mg tablet 0 mg PO QAM 09/15/21 09/07/24 History nebulizers (Aeroneb Go Nebulizer) #1 ea 09/19/23 09/07/24 Rx Portable Oxygen 12/11/23 09/07/24 History carvedilol 25 mg tablet 25 mg PO BID #180 tabs 04/21/24 09/07/24 Rx ipratropium 0.5 mg-albuterol 3 mg 3 ml inhalation DIRECTED PRN 06/10/24 09/07/24 History (2.5 mg base)/3 mL nebulization Other soln sertraline 100 mg tablet 100 mg PO QAM 06/10/24 09/07/24 History bumetanide 1 mg tablet 1 mg PO QAM 07/17/24 09/07/24 History mycophenolate mofetil 500 mg tablet 500 mg PO BID 07/17/24 09/07/24 History pantoprazole 40 mg tablet,delayed 40 mg PO QAM 07/17/24 09/07/24 History release sulfamethoxazole 800 1 tab PO 3XWK 07/17/24 09/07/24 History mg-trimethoprim 160 mg tablet cyclobenzaprine 5 mg tablet 5 mg PO TID PRN Muscle Spasms 08/29/24 09/07/24 History apixaban 5 mg tablet (Eliquis) 0 mg PO BID 09/07/24 09/07/24 History epoetin neptali 40,000 unit/mL 40,000 unit subcut MONTHLY 09/07/24 09/07/24 History injection solution (Procrit) prednisone 20 mg tablet 15 mg PO DAILY 09/07/24 09/07/24 History Patient History Medical History Hx of sinus bradycardia Mild mitral regurgitation Mild aortic stenosis No aortic stenosis noted on 04/07/24 ECHO Restrictive lung disease Chronic respiratory failure with hypoxia currently on continuous oxygen 1-4 lpm [place] (hard of hearing) Hx of fracture of nose early 08/2024, 2/2 to fall; "healing up just fine now" Weakness of both legs Port-A-Cath in place placed in 2018, "no longer works" Multiple pulmonary nodules PAD (peripheral artery disease) Hypercholesteremia GERD (gastroesophageal reflux disease) Dyspnea on minimal exertion Per pulm- likely multifactorial due to combinations of his underlying lung disease, obesity, deconditioning, possible myopathy due to long-term steroid use, as well as heart failure and kidney failure. B-cell lymphoma dx ~2019 or before, in liver, chemo tx. On home oxygen therapy 1-4L continuous, via n/c Closed stable burst fracture of fifth thoracic vertebra f/u chiropractor recently COPD (chronic obstructive pulmonary disease) w/emphysema Paroxysmal atrial fibrillation f/u [facility] on Eliquis HFrEF (heart failure with reduced ejection fraction) f/u [facility] cardio EF 40-44% on 04/2024 ECHO CHF exacerbation (admitted to [facility] 07/17/24-07/19/24) Chronic kidney disease, stage IV (severe) f/u dr. perry, [facility] [place]D (interstitial lung disease) Anemia Chronic anticoagulation Cardiomyopathy Situational depression Left leg DVT ~ Anorexia Weight loss Pneumonia due to COVID-19 virus 2020, admitted to [facility] "almost intubated"; "feels lung damage is due to him having covid" COVID-19 hx, 2020, admitted to [facility] "and was almost intubated, still feels that the damage to the lungs is from covid" Osteoarthritis Chronic back pain Hemodialysis patient last dialysis February 11, 2019; nephrology has since stopped dialysis follows with [facility]. Sleep apnea non-compliant; currently on continuous oxygen 1-4 lpm Hearing deficit Peripheral vascular disease right LE femoral femoral bypass Peripheral neuropathy Scrotal swelling "ongoing" Coronary artery disease s/p stent in Surgical History S/P arteriovenous (AV) fistula creation 2018, rt arm/wrist S/P arteriovenous (AV) fistula repair 05/2023, rt arm/wrist History of esophagogastroduodenoscopy (EGD) History of colonoscopy History of heart artery stent , unsure which hospital, x1 stent; f/u [facility] cardio History of cardiac cath , unsure where, x1 stent; f/u [facility] S/P femoral-femoral bypass surgery right leg H/O vascular surgery removal DVT History of lumbar discectomy L4-L5, in History of umbilical hernia repair Family History Mother FHx: lung cancer FHx: uterine cancer Other Allergy Cancer Diabetes Heart disease Lung cancer Lung disease Denies family history of Tuberculosis Emphysema of lung Asthma Social History Smoking Status: Former smoker Tobacco Type: Cigarettes packs per day: 1; Second Hand Exposure: No; Do You Dip or Chew Tobacco: No; Tobacco Cessation Education Requested by Patient: No Hx Alcohol Use: No Hx Substance Use: No Preferred Language: Marshallese Communication Ability: Effective Outsole Scheduler Required: No Beliefs That Will Affect Care: None Current Living Situation: Spouse Current Living Situation Comment: -Sandra Other Information That Helps Us Care for You: No Feels Safe at Home: Yes Safety Concerns: Feels Safe At This Time Assistive Devices: Glasses, Oxygen - Continuous and Walker Review of Systems Review of Systems: 13 point review of systems 13 point review of systems complete pertinent findings are found in history of present illness. Physical Exam Physical Exam: O2 via nasal cannula. Constitutional: WD/WN, vitals as above + obese and + frail appearing Eyes: PERRL, conjunctivae normal, anicteric sclerae ENMT: Ears: no hearing impairment Neck: trachea midline, no thyromegaly Respiratory: normal respiratory effort, lungs clear to auscultation Auscultation: + diminished lung sounds Cardiovascular: Rate/Rhythm: regular rate and regular rhythm Bilateral leg and foot edema. Patient has blisters below the knees. Gastrointestinal (Abdomen): normal bowel sounds, soft, nontender, no hep atosplenomegaly Skin: no rashes, warm and dry Psychiatric: A+Ox3, euthymic affect Results (Rad Onc) Pathology Results: were reviewed and pertinent findings noted in HPI Imaging Studies: were reviewed and pertinent findings noted in HPI Time Spent Midlevel I spent [20] minutes in preparation for this follow up evaluation including reviewing all the clinical records, reviewing laboratory studies, pathology reports and imaging results. I spent [20] minutes with direct face to face interaction with the patient and/or family including performing a physical exam and answering all questions. I spent [15] minutes documenting this patient's visit. Attending I spent 10 minutes in preparation for this consultation including reviewing all the clinical records, reviewing laboratory studies, pathology reports and imaging results. I spent 5 minutes documenting this patient's visit. PG Care Time/CCT Total # of Minutes Spent Total Time Spent with Patient: Total time spent is greater than 50% in coordination of care (as documented) at patient's floor/unit and/or counseling patient: Coding Diagnoses Squamous cell carcinoma of left lung C34.92
--- NOTE | 2024-09-12 14:32 | Hospitalist Progress Note ---
Date of Service September 12, 2024 Assessment & Plan (1) Acute on chronic heart failure with preserved ejection fraction (HFpEF): Plan: Difficult to interpret CXR due to underlying interstitial lung disease and legs likely always swollen from prior surgeries/ pulmonary hypertension from lung disease but BNP mildly increased and weight increased from prior will trial diuresis to see if this helps his breathing Bumex (home dose: 1mg daily) - resumed PO per nephrology recs Strict I&Os, Daily weights, Low Na diet now with AKIcreatinine 4.3, baseline ~3.3-3.4 - Recieved 500cc bolus without improvement. - PVR 276 - Recheck UA + hyline cast. FeNA 1.1 Nephrology consulted, appreciate recs - permissive rise in creatinine to manage volume status - would not expect dialysis to help - check renal US - 1mg PO bumex today - also with anemia - given epogen and venofer x 2 AM BMP (2) Acute hypercapnic respiratory failure: Plan: Patient has known COPD and ILD. Recent 2step 07/2024 recommend 1L at rest, 2L with activity No confusion, slightly worse than VBG in July and did not require BiPAP Recommend BiPAP HS - but patient refusing. Will defer to outpatient pulm to arrange for home as currently pt states he will not use. Aim O2 sats 88-92% - ?secondary to turning up his oxygen inappropriately at home, pt unable to describe events or changes in saturations that cause him to titrate up his oxygen Pt seems to be at baseline - stable on 2L at rest. (3) Hypersensitivity pneumonitis: Plan: Consult pulmonary for advice ongoing for prednisone, planning on reduction as an outpatient Prednisone dose now < 20mg therefore will hold Bactrim prophylaxis Pulmonary consulted - Dyspnea on exertion likely multifactorial with deconditioning. Aim for oxygen saturation > 88% - S/p bronchoscopy 09/09, path consistent with squamous cell cancer - Dr. Perdomo reviewed these results with patient. Not amendable to surgical resection. consider radiation AFB culture and fungal culture pending. Bacterial culture - no growth - no indication for steroids, will continue outpatient taper (decrease to 10mg 09/15) Rad Onc consulted - will follow up with pt outpatient Patient also on cellcept - prescribed by Dr. Gaytan, pulmonology in [place] - reports they have no intention of following up with him. - Discussed with pulmonology - will begin to taper off -09/09 Decrease dose to 1000mg qAM and 500mg qPM (4) Asymptomatic bacteriuria: Plan: No specific urinary symptoms, low probability of cause of fatigue and generalized weakness UC: Citrobacter freundii Patient remains asymptomatic and improving w/o abx so will continue to defer (5) Wound of left foot: Plan: Patient reports hx of trying to clean fungus off toenails with water/clorox bleach mix - difficult to asses infectious vs burn vs possible psorasis - pt has been on group home bactrim for PJP proh but recently discontinued - wound care consulted elevate legs abx deferred today but low threshold to initiate Plan Chronic stable medical conditions: * afib - continue carvedilol, eliquis resumed at reduced dose (near age cut off & worsening kidney function) VTE Prohyaxis - Eliquis resumed Disposition - continued inpatient stay, treating KATYH. stable for downgrade to medical updated by phone 09/09. Offered to call pt family 09/12 and he declined. Admission and Anticipated Discharge Date Admission Date: September 07, 2024 Supervising Physician Co-Signing Physician Notes Attending Attestation - Chart reviewed in detail, care plan d/w PA Funmi Martinez. I agree w/ the muniz components of her documentation with the following additions - * ACUTE KIDNEY INJURY in setting of CKD stage 4 * Squamous cell lung cancer - new dx based on bronch biopsies Appreciate nephrology & pulmonary consults. Low threshold to initiate antibiotics for his foot rash/wound as noted above by Ms Martinez. Red Matthew MD Subjective where he seen sitting up in bed. When discussing the events of the last 24 hours, he states that he is unsure how he feels about dialysis, "either I now or I later". I made sure that he knew he has the option to not pursue treatment if that was not within his goals for quality of life and he verbalized understanding. he confirms that he would want to pursue radiation treatment. regarding foot wound - states he was soaking his foot in water and bleach and used too much bleach, but has looked like that for awhile, just not with the blisters. Tele - afivb 80s Review of Systems Review of Systems: All systems reviewed & are unremarkable except as noted in Subjective Physical Exam Physical Exam: General: NAD, VS as above HEENT: mucous membranes pink + moist, no erythema, Resp: normal respiratory effort, lungs sounds clear, on 2L NC 92%. Once i told pt he was on 2L he later started taking deeper/labored breaths and saying he did nt feel like he was getting enough oxygen CV: RRR, no murmur, no JVD Abd: normal bowel sounds, non tender, no hepatosplenomegaly Extremities: Moves all extremities, bilateral 2+ pitting edema - reports near baseline with hx of vein repair and injury. Dialysis fistula present right hand/arm. Left foot erythematous, with scales and weaping. ?infection vs burn Neuro: A&O x3, Results & Data Results & Data Vital Signs (Past 12 Hours) Vital Signs Temp Pulse Pulse Resp BP Pulse Ox O2 Del Method 09/12/24 13:02 74 09/12/24 11:03 98.1 F 83 106/68 92 Nasal Cannula 09/12/24 07:47 98.2 F 84 119/55 L 98 Nasal Cannula 09/12/24 07:29 Nasal Cannula 09/12/24 05:41 75 09/12/24 04:00 98.2 F 90 20 146/84 H 99 Nasal Cannula O2 Flow Rate 09/12/24 13:02 09/12/24 11:03 2 09/12/24 07:47 3.5 09/12/24 07:29 09/12/24 05:41 09/12/24 04:00 4 Laboratory Results bmp reviewed Diagnostic Findings US reviewed PG Care Time/CCT Total # of Minutes Spent Total Time Spent with Patient: Total time spent is greater than 50% in coordination of care (as documented) at patient's floor/unit and/or counseling patient: Coding Level of Care Code 53984 SUB INP/OBS CARE 3/50MIN Diagnoses Acute on chronic heart failure with preserved ejection fraction (HFpEF) I50.33 Acute hypercapnic respiratory failure J96.02 Hypersensitivity pneumonitis J67.9 Asymptomatic bacteriuria R82.71 Wound of left foot S91.302A
--- NOTE | 2024-09-12 15:10 | Ultrasound Report ---
RENAL ULTRASOUND HISTORY: Acute kidney injury linda COMPARISON: PET CT 08/13/2024 FINDINGS: Right kidney: 11.1 cm. 2 cm exophytic cyst of the superior pole. No hydronephrosis. Diffuse cortical thinning with increased parenchymal echogenicity. Left kidney: 10.6 cm. No hydronephrosis. Diffuse cortical thinning with increased precarinal echogeni city. 1.6 cm cyst of the inferior pole. Bladder: Decompressed bladder with circumferential wall thickening. IMPRESSION: 1. No hydronephrosis. 2. Evidence of chronic medical renal disease. 3. Decompressed urinary bladder with circumferential wall thickening. ACT 112: Negative or not required by law. Electronically signed by: Usama Villarreal M.D. 09/12/2024 3:09 PM
[2024-09-13 08:16] LABS: Hematocrit (blood only) 29.1 % (42.0-52.0); Hemoglobin 8.5 g/dl (14.0-18.0); Mean Corpuscular Hgb Conc 29.2 g/dL (32.0-36.0); Mean Corpuscular Volume 106.2 fL (80.0-100.0); Mean Platelet Volume 10.4 fL (9.4-12.4); Platelet Count 137 K/uL (130-400); RDW Coefficient of Variation 15.4 % (11.5-14.5); RDW Standard Deviation 59.8 fL (36.4-46.3); Red Blood Count 2.74 M/uL (4.70-6.10); White Blood Count 6.14 K/ul (4.8-10.8)
[2024-09-13 08:29] LABS: Albumin Level 3.3 gm/dl (3.4-5.0); BUN Creatinine Ratio 19.9 (10-20); Calcium 8.5 mg/dl (8.6-10.3); Creatinine Clr Calc Pharmacy 16.5 ml/min; Phosphorus 4.6 mg/dl (2.5-4.9); Potassium 4.5 mmol/L (3.5-5.1)
--- NOTE | 2024-09-13 09:26 | Nephrology Progress Note ---
Date of Service September 13, 2024 Assessment & Plan (1) Acute kidney injury: Plan: * Baseline Cr 3.5 * Cr has stablized at 4.0 * I&O's do not appear accurate. Patient reports good UO * Electrolyte balance is acceptable. Abdominal distention and LE swelling related to R heart failure associated w/ ILD, COPD * No acute indication for HD at this time. Will reassess in am (2) Chronic kidney disease, stage IV (severe): Plan: * CKD stage G4 (advanced impairment). Baseline Cr 3.5. 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 * Follows with Dr. Kearns as an outpatient. Previously maintained on HD in [place]. * R RC AVF w/ + bruit but small venous limb. 09/30 US negative for stenosis. (3) Anemia: Plan: * Epogen and venofer provided 09/12/24 * Monitor H&H (4) Squamous cell carcinoma of left lung: Plan: * Radiation therapy planned as outpatient Admission and Anticipated Discharge Date Admission Date: September 07, 2024 Subjective Mr. De La Cruz was evaluated in his hospital room this morning. He was breathing comfortably flat in bed on O2 at 2L/min NC. He denied fever, angina, dyspnea or uremic symptoms Review of Systems Constitutional: no fever Eyes: no problem reported Ear, Nose, Mouth, Throat: no problem reported Respiratory: + dyspnea Cardiovascular: no chest pain Gastrointestinal: no abdominal pain, no nausea, no vomiting and no diarrhea/loose stools Genitourinary: no dysuria, no urinary hesitancy or no hematuria Physical Exam Constitutional: not in distress Eyes: PERRL, conjunctivae normal, anicteric sclerae ENMT: external ear and nose normal, oropharynx normal Neck: trachea midline, no thyromegaly Respiratory: Auscultation: + wheezes (poor air exchange w/ expiratory wheezing) Cardiovascular: Rate/Rhythm: regular rate and regular rhythm Extremities: + edema (1+ pretibial pitting edema) and + AV fistula (R RC AVF + bruit. Venous limb remains small and difficult to palpate) Gastrointestinal (Abdomen): normal bowel sounds, soft, nontender, no hepatosplenomegaly Inspection/Auscultation: + abdomen distended Musculoskeletal: Extremities: no cyanosis and no clubbing Skin: no rashes, warm and dry Neurologic: awake; not confused Results & Data Vital Signs (Past 12 Hours) Vital Signs Temp Pulse Resp BP Pulse Ox O2 Del Method O2 Flow Rate 09/13/24 08:43 94 Nasal Cannula 2 09/13/24 07:45 36.5 C 64 20 139/82 100 Nasal Cannula 4 09/12/24 23:00 36.7 C 78 18 125/81 96 Nasal Cannula 4 Laboratory Results Laboratory Results - last 24 hr 09/13/24 09/13/24 07:20 07:56 WBC 6.14 RBC 2.74 L Hgb 8.5 L Hct 29.1 L MCV 106.2 H MCH 31.0 MCHC 29.2 L RDW Std Deviation 59.8 H RDW Coeff of [place] 15.4 H Plt Count 137 MPV 10.4 Sodium 145 Potassium 4.5 Chloride 106 Carbon Dioxide 31 Anion Gap 8 BUN 81 H Creatinine 4.08 H Est Cr Clr Drug Dosing 16.5 eGFR 14.16 BUN/Creatinine Ratio 19.9 Glucose 106 H POC Glucose 118 H Calcium 8.5 L Phosphorus 4.6 Albumin 3.3 L PG Care Time/CCT Total # of Minutes Spent Total Time Spent with Patient: Total time spent is greater than 50% in coordination of care (as documented) at patient's floor/unit and/or counseling patient: Coding Level of Care Code 41752 SUB INP/OBS CARE 3/50MIN Diagnoses Acute kidney injury N17.9 Chronic kidney disease, stage IV (severe) N18.4 Anemia due to stage 4 chronic kidney disease N18.4; D63.1 Anemia type: due to chronic kidney disease Chronic kidney disease stage: stage 4 (severe) Squamous cell carcinoma of left lung C34.92 (3) Anemia Anemia type: due to chronic kidney disease Chronic kidney disease stage: stage 4 (severe) Qualified Code(s): N18.4 - Chronic kidney disease, stage 4 (severe); D63.1 - Anemia in chronic kidney disease
[2024-09-13] MEDS ORDERED: cephALEXin 500 MG CAP PO SCH (11:30)
--- NOTE | 2024-09-13 14:20 | Hospitalist Progress Note ---
Date of Service September 13, 2024 Assessment & Plan (1) Acute on chronic heart failure with preserved ejection fraction (HFpEF): Plan: Difficult to interpret CXR due to underlying interstitial lung disease and legs likely always swollen from prior surgeries/ pulmonary hypertension from lung disease but BNP mildly increased and weight increased from prior will trial diuresis to see if this helps his breathing Bumex (home dose: 1mg daily) - resumed PO per nephrology recs Strict I&Os, Daily weights, Low Na diet now with AKIcreatinine 4.3, baseline ~3.3-3.4 - Recieved 500cc bolus without improvement. - PVR 276 - Recheck UA + hyline cast. FeNA 1.1 - Cr beginning to improve Nephrology consulted, appreciate recs - permissive rise in creatinine to manage volume status - would not expect dialysis to help - renal US: CKD, no acute abnormalites - 1mg PO bumex continued - also with anemia - given epogen and venofer x 2 AM BMP (2) Acute hypercapnic respiratory failure: Plan: Patient has known COPD and ILD. Recent 2step 07/2024 recommend 1L at rest, 2L with activity No confusion, slightly worse than VBG in July and did not require BiPAP Recommend BiPAP HS - but patient refusing. Will defer to outpatient pulm to arrange for home as currently pt states he will not use. Aim O2 sats 88-92% - ?secondary to turning up his oxygen inappropriately at home, pt unable to describe events or changes in saturations that cause him to titrate up his oxygen Pt seems to be at baseline - stable on 2L at rest. more coarse sounding today and pt reports difficulty with bringing up mucus - continue IS, FV ordered - trial saliene neb (3) Hypersensitivity pneumonitis: Plan: Consult pulmonary for advice ongoing for prednisone, planning on reduction as an outpatient Prednisone dose now < 20mg therefore will hold Bactrim prophylaxis Pulmonary consulted - Dyspnea on exertion likely multifactorial with deconditioning. Aim for oxygen saturation > 88% - S/p bronchoscopy 09/09, path consistent with squamous cell cancer - Dr. Perdomo reviewed these results with patient. Not amendable to surgical resection. consider radiation AFB culture and fungal culture pending. Bacterial culture - no growth - no indication for steroids, will continue outpatient taper (decrease to 10mg 09/15) Rad Onc consulted - will follow up with pt outpatient Patient also on cellcept - prescribed by Dr. Gaytan, pulmonology in [place] - reports they have no intention of following up with him. - Discussed with pulmonology - will begin to taper off -09/09 Decrease dose to 1000mg qAM and 500mg qPM (4) Wound of left foot: Plan: Patient reports hx of trying to clean fungus off toenails with water/clorox bleach mix - difficult to asses infectious vs burn vs possible psorasis - pt has been on alf bactrim for PJP proh but recently discontinued - wound care consulted elevate legs Started bactrim - ordered for a 7 day course - this will also be covering his UTI which would only need a 3 days course, could consider deescalation on day 4 (5) Asymptomatic bacteriuria: Plan: No specific urinary symptoms, low probability of cause of fatigue and generalized weakness UC: Citrobacter freundii RN reported "milky" apperance to urine - UTI will be covered by Bactrim for foot Plan Chronic stable medical conditions: * afib - continue carvedilol, eliquis resumed at reduced dose (near age cut off & worsening kidney function) VTE Prohyaxis - Eliquis resumed Disposition - continued inpatient stay, treating KATHY updated by phone 09/09. Offered to call pt family 09/12 and he declined. Admission and Anticipated Discharge Date Admission Date: September 07, 2024 Subjective patient seen lying in bed - very crooked and looked uncomfortable. states that he feels like his breathing is better RN reported that urine looked "milky" this morning agreeable to get up to the chair and to get his linens changed Review of Systems Review of Systems: All systems reviewed & are unremarkable except as noted in Subjective Physical Exam Physical Exam: General: NAD, VS as above HEENT: mucous membranes pink + moist, no erythema, Resp: normal respiratory effort, corse in the bases, on 2L NC CV: RRR, no murmur, no JVD Abd: normal bowel sounds, non tender, no hepatosplenomegaly Extremities: Moves all extremities, bilateral 2+ pitting edema - reports near baseline with hx of vein repair and injury. Dialysis fistula present right hand/arm. Left foot erythematous, with scales and weaping. - erythema approved when elevated but when pt went to stand turned to beefy red again Neuro: A&O x3, Results & Data Results & Data Vital Signs (Past 12 Hours) Vital Signs Temp Pulse Resp BP Pulse Ox O2 Del Method O2 Flow Rate 09/13/24 08:43 94 Nasal Cannula 2 09/13/24 08:30 Nasal Cannula 2 09/13/24 07:45 97.7 F 64 20 139/82 100 Nasal Cannula 4 Laboratory Results cbc and chemistry reviewed Diagnostic Findings Renal US reviewed PG Care Time/CCT Total # of Minutes Spent Total Time Spent with Patient: Total time spent is greater than 50% in coordination of care (as documented) at patient's floor/unit and/or counseling patient: Coding Level of Care Code 30184 SUB INP/OBS CARE 3/50MIN Diagnoses Acute on chronic heart failure with preserved ejection fraction (HFpEF) I50.33 Acute hypercapnic respiratory failure J96.02 Hypersensitivity pneumonitis J67.9 Wound of left foot S91.302A Asymptomatic bacteriuria R82.71
[2024-09-13] MEDS: SULFAMETHOXAZOLE/TRIMETHOPRIM DS 800/160MG TAB PO STA (14:31)
[2024-09-13] MEDS: SODIUM CHLOR 7% 4 ML NEB NEB ONE (15:08)
[2024-09-13 19:16] VITALS: O2SAT 98
[2024-09-13] MEDS: SULFA/TRIMETH 400/80MG TAB PO SCH (20:50)
--- NOTE | 2024-09-14 06:43 | XRay Report ---
EXAM: XR chest 1V portable CLINICAL HISTORY: CHF WTW TECHNIQUE: X-ray images of the chest were obtained in 1 frontal projections. COMPARISON: Prior X-ray dated 09/09/2024 for comparison. FINDINGS: Pulmonary Parenchyma: Interval resolution of opacities in left upper zone. Left hilum appears bulky, could be prominent pulmonary conus. Prominent bilateral parahilar markings. Mild blunting of bilateral CP angles likely pleural effusion. Heart and Mediastinum: Heart size and shape are normal. No mediastinal widening or masses. No hilar or mediastinal lymphadenopathy. Bony Thorax: Spondylotic changes in thoracic spine. Bony thorax appears intact without fractures or deformities. Soft Tissues: Soft tissues overlying the chest wall are unremarkable. Left side chemoport. IMPRESSION: 1. Interval resolution of opacities in left upper zone. 2. Left hilum appears bulky, could be prominent pulmonary conus. 3. Mild blunting of bilateral CP angles likely pleural effusion. Electronically signed by Shahrzad Drake 09-14-2024 06:43 AM
[2024-09-14 07:12] LABS: Albumin Globulin Ratio 1.8 (0.9-2); Albumin Level 3.3 gm/dl (3.4-5.0); BUN Creatinine Ratio 21.4 (10-20); Bilirubin,Total 0.3 mg/dl (0.2-1.0); Calcium 8.5 mg/dl (8.6-10.3); Creatinine Clr Calc Pharmacy 17.5 ml/min; Globulin 1.8 gm/dl (2.5-4.0); Potassium 4.6 mmol/L (3.5-5.1); Total Protein 5.1 gm/dl (6.0-8.3)
--- NOTE | 2024-09-14 09:11 | Nephrology Progress Note ---
Date of Service September 14, 2024 Assessment & Plan (1) Acute kidney injury: Plan: * Baseline Cr 3.5 * Cr has improved to 3.84. UO 1200 cc last shift * Electrolyte balance is acceptable. Abdominal distention and LE swelling related to R heart failure associated w/ ILD, COPD * No acute indication for HD * If discharge is anticipated, please have patient schedule follow up appointment w/ Dr. Kearns in 7-14 days (2) Chronic kidney disease, stage IV (severe): Plan: * CKD stage G4 (advanced impairment). Baseline Cr 3.5. 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 * Follows with Dr. Kearns as an outpatient. Previously maintained on HD in [place]. * R RC AVF w/ + bruit but small venous limb. 09/30 US negative for stenosis. (3) Anemia: Plan: * Epogen and venofer provided 09/12/24 * Monitor H&H (4) Squamous cell carcinoma of left lung: Plan: * Radiation therapy planned as outpatient Admission and Anticipated Discharge Date Admission Date: September 07, 2024 Subjective Mr. De La Cruz was evaluated in his hospital room this morning. He was sitting up in bed breathing comfortably on O2 at 2L/min NC. He denied fever, angina, dyspnea or uremic symptoms Review of Systems Constitutional: no fever Eyes: no problem reported Ear, Nose, Mouth, Throat: no problem reported Respiratory: no dyspnea Cardiovascular: no chest pain Gastrointestinal: no abdominal pain, no nausea, no vomiting and no diarrhea/loose stools Genitourinary: no dysuria, no urinary hesitancy or no hematuria Physical Exam Constitutional: not in distress Eyes: PERRL, conjunctivae normal, anicteric sclerae ENMT: external ear and nose normal, oropharynx normal Neck: trachea midline, no thyromegaly Respiratory: Auscultation: lungs clear to auscultation bilaterally (poor air exchange) Cardiovascular: Rate/Rhythm: regular rate and regular rhythm Extremities: + edema (1+ pretibial pitting edema) and + AV fistula (R RC AVF + bruit. Venous limb remains small and difficult to palpate) Gastrointestinal (Abdomen): normal bowel sounds, soft, nontender, no hepatosplenomegaly Inspection/Auscultation: + abdomen distended Musculoskeletal: Extremities: no cyanosis and no clubbing Skin: no rashes, warm and dry Neurologic: awake; not confused Results & Data Vital Signs (Past 12 Hours) Vital Signs Temp Pulse Resp BP Pulse Ox O2 Del Method O2 Flow Rate 09/14/24 08:32 36.4 C L 73 20 136/70 98 Nasal Cannula 2 09/13/24 21:30 Nasal Cannula 2.5 Laboratory Results Abnormal Lab Results 09/13/24 09/13/24 09/13/24 12:01 17:06 20:15 Sodium Potassium Chloride Carbon Dioxide Anion Gap BUN Creatinine Est Cr Clr Drug Dosing eGFR BUN/Creatinine Ratio Glucose POC Glucose 148 H 176 H 117 H Calcium Total Bilirubin AST ALT Alkaline Phosphatase Total Protein Albumin Globulin Albumin/Globulin Ratio 09/14/24 05:33 Sodium 144 Potassium 4.6 Chloride 105 Carbon Dioxide 33 H Anion Gap 6 BUN 82 H Creatinine 3.84 H Est Cr Clr Drug Dosing 17.5 eGFR 15.23 BUN/Creatinine Ratio 21.4 H Glucose 102 H POC Glucose Calcium 8.5 L Total Bilirubin 0.3 AST 10 L ALT 20 Alkaline Phosphatase 38 Total Protein 5.1 L Albumin 3.3 L Globulin 1.8 L Albumin/Globulin Ratio 1.8 PG Care Time/CCT Total # of Minutes Spent Total Time Spent with Patient: Total time spent is greater than 50% in coordination of care (as documented) at patient's floor/unit and/or counseling patient: Coding Level of Care Code 67337 SUB INP/OBS CARE 3/50MIN Diagnoses Acute kidney injury N17.9 Chronic kidney disease, stage IV (severe) N18.4 Anemia due to stage 4 chronic kidney disease N18.4; D63.1 Anemia type: due to chronic kidney disease Chronic kidney disease stage: stage 4 (severe) Squamous cell carcinoma of left lung C34.92 (3) Anemia Anemia type: due to chronic kidney disease Chronic kidney disease stage: stage 4 (severe) Qualified Code(s): N18.4 - Chronic kidney disease, stage 4 (severe); D63.1 - Anemia in chronic kidney disease
--- NOTE | 2024-09-14 11:13 | Discharge Summary ---
Discharge Summary Date of Service September 14, 2024 Principal Dx & Hospital Course #1 = Principal Diagnosis (1) Acute on chronic heart failure with preserved ejection fraction (HFpEF): Difficult to interpret CXR due to underlying interstitial lung disease and legs likely always swollen from prior surgeries/ pulmonary hypertension from lung disease but BNP mildly increased and weight increased from prior will trial diuresis to see if this helps his breathing Bumex 1mg daily- resumed PO Strict I&Os, Daily weights, Low Na diet - has followed with CHF clinic and recommend f/u on discharge now with AKIcreatinine 4.3, baseline ~3.3-3.4 - Recieved 500cc bolus without improvement. - PVR 276 - Recheck UA + hyline cast. FeNA 1.1 - Cr improving Nephrology consulted, appreciate recs - permissive rise in creatinine to manage volume status - would not expect dialysis to help - renal US: CKD, no acute abnormalities - 1mg PO bumex continued - also with anemia - given epogen and venofer x 2 - recommend follow up with Dr. Kearns in 1-2 weeks Met with and daughter at bedside prior to discharge, stressed the importance of daily diuretic as his kidneys cant tolerate more aggressive diuresis. Low salt diet. Encourage ambulation, daily weights and elevating extremities. (2) Acute hypercapnic respiratory failure: Patient has known COPD and ILD. Recent 2step 07/2024 recommend 1L at rest, 2L with activity No confusion, slightly worse than VBG in July and did not require BiPAP Recommend BiPAP HS - but patient refusing. Will defer to outpatient pulm to arrange for home as currently pt states he will not use. Aim O2 sats 88-92% - ?secondary to turning up his oxygen inappropriately at home, pt unable to describe events or changes in saturations that cause him to titrate up his oxygen Pt seems to be at baseline - stable on 2L at rest. Discussed multiple times when it is appropriate to turn up oxygen and when he should be using pursed lip breathing. (3) Hypersensitivity pneumonitis: Consult pulmonary for advice ongoing for prednisone, planning on reduction as an outpatient Prednisone dose now < 20mg therefore will hold Bactrim prophylaxis Pulmonary consulted - Dyspnea on exertion likely multifactorial with deconditioning. Aim for oxygen saturation > 88% - S/p bronchoscopy 09/09, path consistent with squamous cell cancer - Dr. Perdomo reviewed these results with patient. Not amendable to surgical resection. consider radiation AFB culture and fungal culture pending. Bacterial culture - no growth - no indication for steroids, will continue outpatient taper (decrease to 10mg 09/15) - family aware Rad Onc consulted - will follow up with pt outpatient Patient also on cellcept - prescribed by Dr. Gaytan, pulmonology in [place] - reports they have no intention of following up with him. - Discussed with pulmonology - will begin to taper off -09/09 Decrease dose to 1000mg qAM and 500mg qPM (4) Wound of left foot: Patient reports hx of trying to clean fungus off toenails with water/clorox bleach mix - difficult to asses infectious vs burn vs possible psorasis - pt has been on senior living bactrim for PJP proh but recently discontinued - wound care consulted elevate legs Started bactrim - ordered for a 7 day course (5) Asymptomatic bacteriuria: No specific urinary symptoms, low probability of cause of fatigue and generalized weakness UC: Citrobacter freundii Nurse has prior reported that urine looked milky, Bactrim started the same day for foot wound. UC is resistant to bactrim. Day of discharge, urine is appearing normal and continues to deny urinary symptoms. Will defer additional abx for UTI. If patient does report Urinary symptoms to PCP would consider Cipro 500mg daily x 7 days. Plan Chronic stable medical conditions: * afib - continue carvedilol, eliquis resumed at reduced dose (near age cut off & worsening kidney function) VTE Prohyaxis - Eliquis resumed Disposition - discharge to home today updated by phone 09/09. Offered to call pt family 09/12 and he declined. and daughter updated in the room 09/14 prior to d/c Notes For Next Care Provider VERY complex and needs alot of follow up - i personally reviewed d/c instructions with and daughter to hopefully help his transition of care. Asymptomatic bacteruia - was trying to double cover with the bactrim from his foot, but grew resistant. could have cipro if reports urinary symptoms, but asymptomatic for 7 days he was here Admission HPI Per Admitting Provider Manuel De La Cruz is a 79 year old male with COPD, hypersensitivity pneumonitis, pulmonary nodule, heart failure with borderline ejection fraction who presents to the ER with shortness of breath and fatigue. He notes shortness of breath at baseline but this has been getting worse over the last week but especially last 2 days. Generally weak all over, not unilateral. No change in speech, vision or hearing. No fever, chills, chest pain worsening cough, nasal congestion or sinus pain. No gastrointestinal or urinary symptoms. He has been reducing his prednisone as there was some concern this was causing his generalized weakness although he appears to be getting worse rather than better. He was admitted in July and underwent diuresis at that time although his main diagnosis was a T5 compression fracture as likely the cause of his breathing difficulty. Discharge Exam General: NAD, VS as above HEENT: mucous membranes pink + moist, no erythema, Resp: normal respiratory effort, corse in the bases, on 2L NC CV: RRR, no murmur, no JVD Abd: normal bowel sounds, non tender, no hepatosplenomegaly Extremities: Moves all extremities, bilateral 2+ pitting edema - reports near baseline with hx of vein repair and injury. Dialysis fistula present right hand/arm. Left foot erythematous, with scales and weaping. Neuro: A&O x3, Discharge Plan Discharge Items Patient Disposition: Home - Self-Care Reason For Visit: ACUTE ON CHRONIC CHF, COPD Discharge Diagnosis: CHF, LINDA on CKD, Squamous Cell Cancer of the lung Activity: Resume your previous activity Weightbearing: Full weightbearing Non-emergency contact: Primary Care Provider Call non-emergency contact if: you have any medication questions, your symptoms worsen, your temperature is above 101, your wound has increased redness and your wound has increased drainage Follow-up/Referrals: Reanna Kearns MD [Physician] - (follow up 7-14 days ) Yuridia Merida MD [Physician] - (Radiation ) Emre Perdomo MD [Physician] - (hosp follow up, cell cept taper ) Litzy Baez PA-C [Physician Dry Cleaning Teacher] - (CHF clinic) Vinod Pang [Primary Care Provider] - Diet: Dialysis Renal and Low Sodium (2gm) Addtl Attending Provider Instructions: Mr. De La Cruz, You were hospitalized after feeling more short of breath - this was found to be from a number of things, mainly your chronic lung disease but also fluid overload from you congestive heart failure. Your symptoms have improved and you have done VERY WELL on 2L of oxygen. As we have discussed, and your pulmonolo gist agrees, we do NOT want your oxygen saturations to be at 100% as this can be harmful to your lung. A good goal would be 92-95% but we are comfortable with it getting as low as 88%. - When you feel short of breath but your numbers look okay do NOT turn up your oxygen, instead focus of pursed lipped breathing in through your nose and out through your mouth (there is a handout about this as well). Follow up Recommendations - our team will work on getting these appointment for you, but if you dont hear that they are scheduled by Sunday please call the offices at the numbers listed above * Dr. Kearns (kidney doctor) - within 1-2 weeks * Dr. Perdomo (lung doctor) - within the next month, discuss further taper of your Cell Cept * Dr. Merida (radiation oncology) - to set up radiation treatments * Dr. Pang (Primary Care) - follow up within one week * Sena Brown (heart failure) - follow up to manage CHF and fluid balance Medication changes: * Bactrim (sulfamethoxazole-trimethoprim) - you used to be on this 3x a week for infection prevention, please STOP this dose. You will be on a different dose until 09/19 for your foot infection and then STOP. The new dose is at your pharmacy * Cell Cept (mycophenolate) - we have started to taper you off of this, new dose is 1000mg AM and 500mg PM. Please discuss with pulmonology the next steps for tapering as we are trying to get you off this medication. * Bumex 1mg - this was previously prescribed, but i sent in a new prescription as well, please make sure your are taking this each morning. It is to help with your fluid. * Eliquis - your dose has been reduce to 2.5mg twice a day. Your new prescription is at the pharmacy. Please throw away all the old Eliquis. * Prednisone - as part of your taper you should start on the 10mg dose on 09/15 - continue this for 3 weeks as previously instructed by pulmonology and then decrease to 5mg. * Vitamin B - this has been started by nephrology, I sent in a prescription to the pharmacy, if your insurance does not cover this, please purchase B vitamins over the counter Recommendations * Wear 2L of oxygen at all times, this does NOT need to be turned up while sleeping * Do not turn up your oxygen unless your oxygen saturation is maintaining under 88% for 20+ seconds * Do not dip your foot or any part of your body in bleach water, please talk to your PCP about seeing wound care closer to home * It is important to keep your foot clean and dry and elevate your legs throughout the day to help with swelling * Continue to use the jett wraps to help with swelling. The jett wraps can be washed in the washing machine when needed. * Try to follow a renal diet to help protect your kidneys, I have attached information about this below Thank you for allowing us to participate in your care. Funmi Martinez PA-C Pending Studies at Discharge: Yes (bronch cultures ) Stand-Alone Forms: My [facility] Namshi, Smoking Cessation Medications and DC Order Prescriptions: New sulfamethoxazole-trimethoprim [Bactrim] 400-80 mg Tablet 1 tab PO BID 6 Days Qty: 12 0RF Eliquis 2.5 mg Tablet 2.5 mg PO BID 90 Days Qty: 180 0RF mycophenolate mofetil 250 mg Capsule 1,000 mg PO QAM 30 Days Qty: 120 0RF mycophenolate mofetil 250 mg Capsule 500 mg PO QPM 30 Days Qty: 60 0RF vitamin B complex [Vitamins B Complex] Capsule 1 cap PO QAM 30 Days Qty: 30 0RF Continued atorvastatin [Lipitor] 80 mg Tablet 80 mg PO HS Qty: 0 carvedilol 25 mg tablet 25 mg PO BID Qty: 180 3RF Rx Instructions: must administer with a meal/food clopidogrel 75 mg tablet 0 mg PO QAM Rx Instructions: Per spouse, this is on hold due to upcoming surgery scheduled for 09/09/24. Original Directions: 75mg by mouth daily (DME) Portable Oxygen Mis See Rx Instructions .MEDSUPPLY Rx Instructions: Oxygen 3 liters continuous via nasal cannula at bedtime with portable concentrator. ZENOBIA 99 (DME) nebulizers [Aeroneb Go Nebulizer] Misc See Rx Instructions .MEDSUPPLY Qty: 1 0RF Rx Instructions: With tubing and supplies. J44.9. J45.9. cyclobenzaprine 5 mg tablet 5 mg PO TID PRN (Reason: Muscle Spasms) Procrit 40,000 unit/mL solution 40,000 unit subcut MONTHLY Rx Instructions: 40,000 units subcutaneously Monthly; bumetanide 1 mg tablet 1 mg PO QAM 30 Days Qty: 30 0RF ipratropium-albuterol 0.5 mg-3 mg(2.5 mg base)/3 mL solution for nebulization 3 ml INHALATION DIRECTED PRN (Reason: Other) sertraline 100 mg tablet 100 mg PO QAM pantoprazole 40 mg tablet,delayed release (DR/EC) 40 mg PO QAM Changed prednisone 20 mg tablet 10 mg PO DAILY Qty: 0 0RF Rx Instructions: Pt is currently taking 15mg daily until the MD tells him to drop down in strength Discontinued Eliquis 5 mg tablet 0 mg PO BID Rx Instructions: Per spouse, this in on hold due to upcoming surgery scheduled for 09/09/24. Original Directions: 5mg by mouth twice daily sulfamethoxazole-trimethoprim 800-160 mg tablet 1 tab PO 3XWK Rx Instructions: sunday, sun, and fridays mycophenolate mofetil 500 mg tablet 500 mg PO BID Rx Instructions: 500 mg po bid for 30 days, then 1000 mg bid. Discharge Orders: Discharge Order (Routine); Ordered 09/14/24 Ordered By: Funmi Lynn/Other Patient Handouts: Pursed-Lip Breathing, Lung Disease Exercise Tips, ED Diet for Chronic Kidney Disease Admission Data Admit Date/Time: 09/07/24 16:08 Attending Provider: Hari Hanson Admit Provider: Red Watson Primary Care Provider: Vinod Pang Other Providers: Red Watson; Emre Perdomo; Mona Rowley; Loretta Raymundo; Katie Snyder; Sarah Isbell; Maurice Kasper; David Ballesteros; Dionte Hatfield; Parish Aparicio; Nori Aparicio; Julian Duong; Litzy Ernandez; [place]; Vaibhav Moreland; Darren Chowdhury; Maira Fernandes; Nickolas Orlando; Anu Orlando; Jayson Rodriguez; Shirley Hardin; Abdulaziz Roberts; Radha Andrea; Ce Peña; Marcel Ferro; Haven Woo; Brandi Ingram; Yanna Hodge; Valarie Fox; Teo Fox V; Jb Leiva; Loretta Lopez; Lico Valencia; Brooke Gomes; Teo Disla; Ayaan Fernandes; Tomi Velez; Anisa Mccarthy; Sherin Major; Teo Wallace; Gibran Gallagher; Arabella Thao; Cheo Carrasquillo; Katherine Arizmendi; Ann Manzanares; Alireza Eastman; Rory Falcon; Antonieta Trent; Nuria Espinoza; Giovanny Perry; Wilfredo Batista; Kyree Acevedo; Maurice Nair Jr; Clare Salas; Laury Deshpande AJerardo; Zenaida Valdes; Marcel Clark; Parish Pollack; Leanna Soler; Laury Ford A.; Hipolito Christina; Marcos Rosales; Fermín Mccain; Vivek Morejon; Bridgett Cota; Sherlyn Batista; Tangela Riley; Shagufta Rivero; Julissa Norris; Clotilde Mir; Matthew Ovalle Jr; Amina Leon; Haven Martinez; Ravi Agee; Luther Jasso; Yuridia Merida; Litzy Baez Other Interventions: Discharge Summary Assessment (RN) Last Done: 09/14/24 14:23 Hospital Stay Data Consultations 09/07/24 15:43 ED Decision to Admit Stat 09/08/24 06:56 Consult Pulmonology Routine 09/08/24 12:02 Consult Anesthesiology Routine 09/11/24 08:42 Consult Nephrology Routine 09/12/24 10:59 Consult Radiation Oncology Routine 09/12/24 11:00 Consult Case Management Ambulatory ONCE Procedures Performed Operation Date: 09/09/24 09:50 Actual Procedures p Robotic Navigational Bronchoscopy, Needle Aspiration, Bronchial Lavage - Emre Perdomo MD s Endobronchial Ultrasound - Emre Perdomo MD Diagnostic Imagining Performed Chest X-Ray 09/07/24 14:23 EXAM: Radiograph of the Chest 1 View INDICATION: Shortness of breath. TECHNIQUE: Frontal view of the chest. COMPARISON: 08/26/2024 FINDINGS: Lungs and pleural spaces: There is increased consolidation in the left lung base with generalized shallow inspiration and vascular crowding. New small focus of consolidation in the medial right base. Increase small left pleural effusion. No pneumothorax. Heart: Shape and configuration within normal limits allowing for technique. Mediastinum: Normal contour. Bones/joints: No fracture, erosion or dislocation. Soft tissues: No abnormality noted. No radiopaque foreign body noted. Tubes, lines and devices: Left internal jugular central venous port terminates at the jugular subclavian junction. Upper abdomen: No abnormality noted. IMPRESSION: 1. New right and increased left basilar atelectasis or pneumonia and increased small left pleural effusion. 2. Lines and tubes as above. ACT 112: Negative or not required by law. Electronically signed by Kendra March 09-07-2024 3:21 PM Chest X-Ray 09/09/24 11:33 XR chest 1V portable CLINICAL HISTORY: Post Bronchoscopy COMPARISON STUDY: Chest CT September 25, 2024. Chest radiograph September 09, 2024. PET/CT August 13, 2024. FINDINGS: Left internal jugular [id number] is unchanged in position. There is no pneumothorax status post bronchoscopy. Left upper lung opacity is present with there is also left basilar opacity with low lung volumes. Mediastinal prominence is unchanged. There is pulmonary vascular congestion. IMPRESSION: 1. No pneumothorax status post bronchoscopy. 2. Left upper lung opacity which may be related to bronchoscopy. ACT 112: Negative or not required by law. Electronically signed by: Virgil Pinzon M.D. 09/09/2024 12:49 PM Hemodialysis Access Duplex US 09/11/24 13:56 US hemodialysis fistula HISTORY: 79 years-old Male evaluate for stenosis acute pain of the right upper extremity COMPARISON: None TECHNIQUE: Duplex Doppler was obtained assessing grayscale appearance, color and spectral flow FINDINGS: Right upper arterial venous fistula involving the cephalic vein and radial artery. The fistula is patent. Peak systolic velocities of the radial artery anastomosis are 65 cm/s and at the fistula measures 358 cm/s. No thrombus identified. No high-grade stenosis is seen. IMPRESSION: Patent AV fistula. ACT 112: Negative or not required by law. The above report was generated using voice recognition software. It may contain grammatical, syntax or spelling errors. Electronically signed by: Usama Villarreal M.D. 09/11/2024 3:53 PM Renal Ultrasound 09/12/24 12:44 RENAL ULTRASOUND HISTORY: Acute kidney injury linda COMPARISON: PET CT 08/13/2024 FINDINGS: Right kidney: 11.1 cm. 2 cm exophytic cyst of the superior pole. No hydronephrosis. Diffuse cortical thinning with increased parenchymal echogenicity. Left kidney: 10.6 cm. No hydronephrosis. Diffuse cortical thinning with increased precarinal echogenicity. 1.6 cm cyst of the inferior pole. Bladder: Decompressed bladder with circumferential wall thickening. IMPRESSION: 1. No hydronephrosis. 2. Evidence of chronic medical renal disease. 3. Decompressed urinary bladder with circumferential wall thickening. ACT 112: Negative or not required by law. Electronically signed by: Usama Villarreal M.D. 09/12/2024 3:09 PM Chest X-Ray 09/14/24 06:00 EXAM: XR chest 1V portable CLINICAL HISTORY: CHF WTW TECHNIQUE: X-ray images of the chest were obtained in 1 frontal projections. COMPARISON: Prior X-ray dated 09/09/2024 for comparison. FINDINGS: Pulmonary Parenchyma: Interval resolution of opacities in left upper zone. Left hilum appears bulky, could be prominent pulmonary conus. Prominent bilateral parahilar markings. Mild blunting of bilateral CP angles likely pleural effusion. Heart and Mediastinum: Heart size and shape are normal. No mediastinal widening or masses. No hilar or mediastinal lymphadenopathy. Bony Thorax: Spondylotic changes in thoracic spine. Bony thorax appears intact without fractures or deformities. Soft Tissues: Soft tissues overlying the chest wall are unremarkable. Left side chemoport. IMPRESSION: 1. Interval resolution of opacities in left upper zone. 2. Left hilum appears bulky, could be prominent pulmonary conus. 3. Mild blunting of bilateral CP angles likely pleural effusion. Electronically signed by Shahrzad Drake 09-14-2024 06:43 AM Pending Results Patient Have Any Pending Studies at Discharge: Yes (bronch cultures ) Discharge Instructions Given to Patient (Per Discharging Provider) Mr. De La Cruz, You were hospitalized after feeling more short of breath - this was found to be from a number of things, mainly your chronic lung disease but also fluid overload from you congestive heart failure. Your symptoms have improved and you have done VERY WELL on 2L of oxygen. As we have discussed, and your clothespin machine operator agrees, we do NOT want your oxygen saturations to be at 100% as this can be harmful to your lung. A good goal would be 92-95% but we are comfortable with it getting as low as 88%. - When you feel short of breath but your numbers look okay do NOT turn up your oxygen, instead focus of pursed lipped breathing in through your nose and out through your mouth (there is a handout about this as well). Follow up Recommendations - our team will work on getting these appointment for you, but if you dont hear that they are scheduled by Sunday please call the offices at the numbers listed above * Dr. Kearns (kidney doctor) - within 1-2 weeks * Dr. Perdomo (lung doctor) - within the next month, discuss further taper of your Cell Cept * Dr. Merida (radiation oncology) - to set up radiation treatments * Dr. Pang (Primary Care) - follow up within one week * Sena Brown (heart failure) - follow up to manage CHF and fluid balance Medication changes: * Bactrim (sulfamethoxazole-trimethoprim) - you used to be on this 3x a week for infection prevention, please STOP this dose. You will be on a different dose until 09/19 for your foot infection and then STOP. The new dose is at your pharmacy * Cell Cept (mycophenolate) - we have started to taper you off of this, new dose is 1000mg AM and 500mg PM. Please discuss with pulmonology the next steps for tapering as we are trying to get you off this medication. * Bumex 1mg - this was previously prescribed, but i sent in a new prescription as well, please make sure your are taking this each morning. It is to help with your fluid. * Eliquis - your dose has been reduce to 2.5mg twice a day. Your new prescription is at the pharmacy. Please throw away all the old Eliquis. * Prednisone - as part of your taper you should start on the 10mg dose on 09/15 - continue this for 3 weeks as previously instructed by pulmonology and then decrease to 5mg. * Vitamin B - this has been started by nephrology, I sent in a prescription to the pharmacy, if your insurance does not cover this, please purchase B vitamins over the counter Recommendations * Wear 2L of oxygen at all times, this does NOT need to be turned up while sleeping * Do not turn up your oxygen unless your oxygen saturation is maintaining under 88% for 20+ seconds * Do not dip your foot or any part of your body in bleach water, please talk to your PCP about seeing wound care closer to home * It is important to keep your foot clean and dry and elevate your legs throughout the day to help with swelling * Continue to use the jett wraps to help with swelling. The jett wraps can be washed in the washing machine when needed. * Try to follow a renal diet to help protect your kidneys, I have attached information about this below Thank you for allowing us to participate in your care. Funmi Martinez PA-C Supervising Physician Co-Signing Physician Notes * ACUTE KIDNEY INJURY in setting of CKD stage 4 * Squamous cell lung cancer - new dx based on bronch biopsies Total Time Total Time Spent Total Time Spent (In Minutes): Time spent day of discharge 60 minutes including direct patient care, medication reconciliation, documentation, review of labs and images, and coordination of care. 30+ minutes face to face with family and patient Coding Level of Care Code 05407 INP/OBS DISCH >30 MIN Diagnoses Acute on chronic heart failure with preserved ejection fraction (HFpEF) I50.33 Acute hypercapnic respiratory failure J96.02 Hypersensitivity pneumonitis J67.9 Wound of left foot S91.302A Asymptomatic bacteriuria R82.71
[2024-09-14 11:53] VITALS: BP 122/69; PULSE 68; RESP 16; TEMP 97.9
== END 2024-09-14 16:30 | disposition home or self-care (01) | DRG 166 ==
LOC: ED 13:50 → SUATTDRO 16:08 → EDINP 16:08 → 2N 19:31

== ENCOUNTER 2024-09-19 07:31 | Inpatient (IN) ==
[2024-09-19 08:18] LABS: Base Excess VBG -2.9 mEq/L; HCO3 VBG 29 mmol/L; Oxygen Saturation VBG < 60.0 %; PCO2 VBG 86 mmHg (38-50); PO2 VBG 29 mmHg; pH VBG 7.13 (7.36-7.41)
--- NOTE | 2024-09-19 08:29 | XRay Report ---
XR chest 1V portable CLINICAL HISTORY: SOB TECHNIQUE: Single frontal radiograph of the chest was obtained. Comparison: Comparison is made to chest radiograph 09/14/2024 FINDINGS: Exam is limited by underpenetration. Port catheter is stable. Cardiomegaly is noted. Lungs are underi nflated but clear. No evidence of pleural effusion or pneumothorax. IMPRESSION: No acute chest disease. ACT 112: Negative or not required by law. Electronically signed by: Tomi Cronin M.D. 09/19/2024 8:27 AM
[2024-09-19 08:39] LABS: Hemoglobin 8.3 g/dl (14.0-18.0); Mean Corpuscular Hemoglobin 30.5 pg (25.0-34.0); Mean Corpuscular Hgb Conc 28.6 g/dL (32.0-36.0); Mean Corpuscular Volume 106.6 fL (80.0-100.0); Mean Platelet Volume 10.2 fL (9.4-12.4); Nucleated RBC # (auto) 0.02 K/uL (0.00-0.12); Nucleated RBC % (auto) 0.2 %; Platelet Count 183 K/uL (130-400); RDW Coefficient of Variation 15.9 % (11.5-14.5); RDW Standard Deviation 60.7 fL (36.4-46.3); Red Blood Count 2.72 M/uL (4.70-6.10); White Blood Count 8.08 K/ul (4.8-10.8)
[2024-09-19 08:46] LABS: Appearance Urine Turbid (Clear); Bacteria Urine Automated 4+ (None Seen); Bilirubin Urine Negative (Negative); Blood Urine 2+ (Negative); Color Urine Yellow; Glucose Urine UA Negative (Negative); Granular Casts Urine Present /lpf (None Prsent); Hyaline Casts Urine Present /lpf (None Presnt); Ketones Urine Negative (Negative); Leukocyte Esterase Urine 3+ (Negative); Nitrite Urine Negative (Negative); Protein Urine 2+ (Negative); Specific Gravity Urine 1.015 (1.000-1.030); Urobilinogen Urine Negative (Negative); WBC Urine Automated >50 /hpf (0-5); pH Urine 5.5 (4.5-7.5)
[2024-09-19] MEDS: ALBUTEROL 0.5% NEB SOLN 2.5 MG/0.5 ML VIAL NEB STA (08:51)
[2024-09-19 09:06] LABS: BUN Creatinine Ratio 18.6 (10-20); Calcium 8.5 mg/dl (8.6-10.3); Creatinine Clr Calc Pharmacy 14.1 ml/min; Potassium 5.2 mmol/L (3.5-5.1); Troponin I High Sensitivity 60.4 pg/ml (0-20)
[2024-09-19] MEDS: cefTRIAXone SODIUM 2,000 MG/50 ML BAG IV STA (09:14)
[2024-09-19 09:34] LABS: Adenovirus PCR Not Detected (NotDetected); Bordetella parapertussis PCR Not Detected (NotDetected); Bordetella pertussis PCR Not Detected (NotDetected); Chlamydia pneumoniae PCR Not Detected (NotDetected); Coronavirus 229E PCR Not Detected (NotDetected); Coronavirus CoV-2 (COVID19)PCR Not Detected (NotDetected); Coronavirus HKU1 PCR Not Detected (NotDetected); Coronavirus NL63 PCR Not Detected (NotDetected); Coronavirus OC43PCR Not Detected (NotDetected); Human Metapneumovirus PCR Not Detected (NotDetected); Influenza A PCR Not Detected (NotDetected); Influenza B PCR Not Detected (NotDetected); Mycoplasma pneumoniae PCR Not Detected (NotDetected); Parainfluenza Virus 1 PCR Not Detected (NotDetected); Parainfluenza Virus 2 PCR Not Detected (NotDetected); Parainfluenza Virus 3 PCR Not Detected (NotDetected); Parainfluenza Virus 4 PCR Not Detected (NotDetected); Respiratory Syncytial VirusPCR Not Detected (NotDetected); Rhinovirus/Enterovirus PCR Not Detected (NotDetected)
[2024-09-19 09:56] LABS: Basophils # (auto) 0.01 K/uL (0.00-0.20); Basophils % (auto) 0.1 %; Eosinophils # (auto) 0.15 K/uL (0.00-0.50); Eosinophils % (auto) 1.8 %; Immature Granulocytes # (auto) 0.04 K/uL (0.01-0.20); Immature Granulocytes % (auto) 0.5 %; Lymphocytes # (auto) 0.68 K/uL (1.20-3.40); Lymphocytes % (auto) 8.1 %; Monocytes # (auto) 0.46 K/uL (0.11-0.59); Monocytes % (auto) 5.5 %; Neutrophils # (auto) 7.07 K/uL (1.40-6.50)
--- NOTE | 2024-09-19 10:09 | Emergency Department Note ---
Impression & Plan Acute on chronic respiratory failure with hypoxia and hypercapnia, UTI (urinary tract infection) ED Provider Note NAME: MEG FINK AGE: 79 SEX: M : 1945 ARRIVES VIA: Walk-In INFORMANT: Patient, ED PROVIDER(S): Oumou Merida MD CHIEF COMPLAINT: Confusion HPI: This is a 79-year-old male presenting for confusion. Patient is with and daughter who states that he has been having hallucinations. Grasping at things, attempting to wash his hands out of car and seeing cow/deer outside. Patient was recently mated for CHF exacerbation and discharged. He was discharged on Bactrim. He notes that he has had increasing oxygen requirements otherwise he was nearly diagnosed with lung cancer. For the past 1 to 2 days has had increasing confusion, hallucinations. ROS: See above HPI for pertinent positives & negatives. A total of 10 systems reviewed and were otherwise negative. PAST MEDICAL HISTORY: See Below PAST SURGICAL HISTORY: See Below FAMILY HISTORY: See Below SOCIAL HISTORY: See Below HOME MEDICATIONS: See Below ALLERGIES: See Below VITALS: See Below PHYSICAL EXAMINATION: General: Chronically unwell appearing, mild respiratory distress Head: Normocephalic and atraumatic Eyes: Normal inspection, extraocular muscles intact Ear, nose, throat: Normal external exam Neck: Normal range of motion Respiratory: Crackles at the bases, diminished in all lung broussard Cardiovascular: Regular rate/rhythm, no murmur GI: soft, nontender, no guarding or rebound Extremities: nontender, moves all extremities Neuro: The patient awake and alert, not oriented, no focal deficits, symmetric faces Skin: Warm, dry, and intact MEDICAL DECISION MAKING: This is a 79-year-old presenting for confusion. Consider hypercarbia, UTI, CHF, URI, anemia, CKD -Blood work is reviewed showing no severe leukocytosis. Stable anemia to 8.3. VBG is significant abnormal with a pH of 7.13, CO2 of 86. Will initiate BiPAP with albuterol treatment at this time -Electrolytes show a slight elevated potassium at 5.2, creatinine 4.85, worsening. -Lactic acid is currently 2.3 -Discussed goals of care with family and they are stating patient is a full code -Chest x-ray shows a possible left pleural effusion as Independently interpreted by me -ECG independently interpreted by me with atrial fibrillation at a rate of 96, normal QRS, normal QTc, no ST segment elevations consistent with STEMI criteria, occasional PVC -Repeat VBG shows minimal improvement at this time, respiratory therapy will increase BiPAP settings, increasing pressure -Patient has signs of UTI at this time, will initiate antibiotic treatment with Rocephin -Patient care discussed with Dr. Watson for admission Differential diagnosis: Hypercarbia, UTI, CHF, URI, anemia, CKD, urosepsis Independent History obtained from: /daughter Diagnostics interpreted by me: ECG: See above Cardiac Monitoring: An order was placed for continuous cardiac monitoring. The monitor shows a rate of atrial fibrillation at a rate of 83 rhythm. Critical Care Note: I have personally spent 40 minutes of critical care time in the direct management of this patient. This includes bedside care, interpretation of diagnostic studies, and testing, discussion with consultants, patient, and family members, and other required patient management activities. This 40 minutes is in excess of all separately billable procedures. Past Med/Surg History Problem List (Updated 09/20/24 @ 07:40 by Oumou Merida MD) Acute metabolic encephalopathy Squamous cell lung cancer Acute on chronic respiratory failure with hypoxia and hypercapnia (Acute) UTI (urinary tract infection) (Acute) Anemia due to chronic kidney disease Chest pain Antiplatelet or antithrombotic long-term use Recurrent UTI Hypospadias Right hydrocele Hematuria (Acute) Mild mitral regurgitation Chewing tobacco nicotine dependence Ex-smoker Allergic rhinitis with postnasal drip Abnormal chest CT Multiple pulmonary nodules Vitamin D deficiency GERD (gastroesophageal reflux disease) PAD (peripheral artery disease) Secondary hyperparathyroidism of renal origin Central venous catheter in place, permanent Depression Sinus bradycardia 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 Neuropathy Hypercholesteremia MAEGAN (obstructive sleep apnea) Peripheral vascular disease Hypercalcemia (Acute) Liver mass (Acute) Medical History Hx of sinus bradycardia Mild mitral regurgitation Mild aortic stenosis No aortic stenosis noted on 04/07/24 ECHO Restrictive lung disease Chronic respiratory failure with hypoxia currently on continuous oxygen 1-4 lpm [place] (hard of hearing) Hx of fracture of nose early 08/2024, 2/2 to fall; "healing up just fine now" Weakness of both legs Port-A-Cath in place placed in 2019, "no longer works" Multiple pulmonary nodules PAD (peripheral artery disease) Hypercholesteremia GERD (gastroesophageal reflux disease) Dyspnea on minimal exertion Per pulm- likely multifactorial due to combinations of his underlying lung disease, obesity, deconditioning, possible myopathy due to long-term steroid use, as well as heart failure and kidney failure. B-cell lymphoma dx ~2019 or before, in liver, chemo tx. On home oxygen therapy 1-4L continuous, via n/c Closed stable burst fracture of fifth thoracic vertebra f/u chiropractor recently COPD (chronic obstructive pulmonary disease) w/emphysema Paroxysmal atrial fibrillation f/u [facility] cardio on Eliquis HFrEF (heart failure with reduced ejection fraction) f/u mariah hernandez cardio EF 40-44% on 04/2024 ECHO CHF exacerbation (admitted to [facility] 07/17/24-07/19/24) Chronic kidney disease, stage IV (severe) f/u dr. perry, [facility] ILD (interstitial lung disease) Anemia Chronic anticoagulation Cardiomyopathy Situational depression Left leg DVT ~ Anorexia Weight loss Pneumonia due to COVID-19 virus 2020, admitted to [facility] "almost intubated"; "feels lung damage is due to him having covid" COVID-19 hx, 2020, admitted to [place] "and was almost intubated, still feels that the damage to the lungs is from covid" Osteoarthritis Chronic back pain Hemodialysis patient last dialysis February 11, 2019; nephrology has since stopped dialysis follows with dr perry [facility]. Sleep apnea non-compliant; currently on continuous oxygen 1-4 lpm Hearing deficit Peripheral vascular disease right LE femoral femoral bypass Peripheral neuropathy Scrotal swelling "ongoing" Coronary artery disease s/p stent in Surgical History S/P arteriovenous (AV) fistula creation 2018, rt arm/wrist S/P arteriovenous (AV) fistula repair 05/2023, rt arm/wrist History of esophagogastroduodenoscopy (EGD) History of colonoscopy History of heart artery stent , unsure which hospital, x1 stent; f/u [facility] cardio History of cardiac cath , unsure where, x1 stent; f/u mariah zamora S/P femoral-femoral bypass surgery right leg H/O vascular surgery removal DVT History of lumbar discectomy L4-L5, in History of umbilical hernia repair Family History Mother FHx: lung cancer FHx: uterine cancer Other Allergy Cancer Diabetes Heart disease Lung cancer Lung disease Denies family history of Tuberculosis Emphysema of lung Asthma Social History Smoking Status: Former smoker Tobacco Type: Cigarettes packs per day: 1; Second Hand Exposure: No; Do You Dip or Chew Tobacco: No; Tobacco Cessation Education Requested by Patient: No Hx Alcohol Use: No Hx Substance Use: No Preferred Language: Chinese Communication Ability: Effective Sexual Assault Response Coordinator Required: No Beliefs That Will Affect Care: Mosque Mosque Beliefs: Religious cathie Current Living Situation: Spouse Current Living Situation Comment: -Sandra Other Information That Helps Us Care for You: No Feels Safe at Home: Yes Safety Concerns: Feels Safe At This Time Assistive Devices: Glasses and Walker Allergies Allergies Allergy/AdvReac Type Severity Reaction Status Date / Time No Known Allergies Allergy Verified 09/07/24 16:25 Home Meds Home Medications Medication Instructions Recorded Confirmed atorvastatin 80 mg tablet (Lipitor) 80 mg PO HS #0 tabs 12/21/14 09/19/24 clopidogrel 75 mg tablet 75 mg PO QAM 09/15/21 09/19/24 Portable Oxygen 12/11/23 09/07/24 ipratropium 0.5 mg-albuterol 3 mg 3 ml inhalation DIRECTED PRN 06/10/24 09/19/24 (2.5 mg base)/3 mL nebulization SOB/Wheezing soln sertraline 100 mg tablet 100 mg PO QAM 06/10/24 09/19/24 pantoprazole 40 mg tablet,delayed 40 mg PO QAM 07/17/24 09/19/24 release cyclobenzaprine 5 mg tablet 5 mg PO TID PRN Muscle Spasms 08/29/24 09/19/24 epoetin neptali 40,000 unit/mL 40,000 unit subcut MONTHLY 09/07/24 09/19/24 injection solution (Procrit) Previous Rx's Medication Instructions Recorded nebulizers (Aeroneb Go Nebulizer) #1 ea 09/19/23 carvedilol 25 mg tablet 25 mg PO BID #180 tabs 07/15/24 apixaban 2.5 mg tablet (Eliquis) 2.5 mg PO BID 90 days #180 tabs 09/14/24 mycophenolate mofetil 250 mg 1,000 mg (4 x 250 mg) PO QAM 30 09/14/24 capsule days #120 caps mycophenolate mofetil 250 mg 500 mg (2 x 250 mg) PO QPM 30 days 09/14/24 capsule #60 caps prednisone 20 mg tablet 10 mg (1/2 x 20 mg) PO DAILY #0 09/14/24 tabs sulfamethoxazole 400 1 tab PO BID 6 days #12 tabs 09/14/24 mg-trimethoprim 80 mg tablet (Bactrim) vitamin B complex (Vitamins B 1 cap PO QAM 30 days #30 caps 09/14/24 Complex capsule) bumetanide 1 mg tablet 1 mg PO QAM 30 days #90 tabs 09/15/24 Results & Data (ED) Vital Signs Vital Signs - 24 hr 09/19/24 08:01 09/19/24 08:13 09/19/24 08:13 Pulse Rate 91 H Pulse Rate [Apical] 101 H Pulse Rate from SpO2 Sensor 99 H Pulse Rhythm [Apical] Irregular Pulse Strength [Apical] Normal Respiratory Rate 25 H 30 H Respiratory Effort / Characteristics Labored Respiratory Depth Shallow Respiratory Pattern Tachypnea Blood Pressure 167/83 H Blood Pressure [Left Arm] 167/82 H Blood Pressure Mean 104 Blood Pressure Mean [Left Arm] 110 Pulse Oximetry 96 97 Oxygen Delivery Method Nasal Cannula Room Air Nasal Cannula Oxygen Flow Rate 4 4 4 Fraction of Inspired Oxygen 09/19/24 08:13 09/19/24 08:26 09/19/24 08:52 Pulse Rate 96 H 115 H Pulse Rate [Apical] Pulse Rate from SpO2 Sensor Pulse Rhythm [Apical] Pulse Strength [Apical] Respiratory Rate 22 Respiratory Effort / Characteristics Spontaneous Labored Spontaneous Respiratory Depth Shallow Normal Respiratory Pattern Tachypnea Regular Blood Pressure Blood Pressure [Left Arm] Blood Pressure Mean Blood Pressure Mean [Left Arm] Pulse Oximetry 95 Oxygen Delivery Method Nasal Cannula Oxygen Flow Rate 4 Fraction of Inspired Oxygen 50 09/19/24 08:54 09/19/24 09:00 09/19/24 09:30 Pulse Rate 94 H 99 H Pulse Rate [Apical] 115 H Pulse Rate from SpO2 Sensor 101 H 101 H Pulse Rhythm [Apical] Pulse Strength [Apical] Respiratory Rate 22 22 21 Respiratory Effort / Characteristics Spontaneous Respiratory Depth Respiratory Pattern Blood Pressure 144/109 H 139/62 Blood Pressure [Left Arm] Blood Pressure Mean 123 87 Blood Pressure Mean [Left Arm] Pulse Oximetry 95 96 95 Oxygen Delivery Method BiPAP BiPAP BiPAP Oxygen Flow Rate Fraction of Inspired Oxygen 50 09/19/24 10:15 09/19/24 10:30 09/19/24 11:00 Pulse Rate 94 H 91 H 114 H Pulse Rate [Apical] Pulse Rate from SpO2 Sensor 107 H 97 H 109 H Pulse Rhythm [Apical] Pulse Strength [Apical] Respiratory Rate 24 16 19 Respiratory Effort / Characteristics Respiratory Depth Respiratory Pattern Blood Pressure 120/67 115/74 116/58 L Blood Pressure [Left Arm] Blood Pressure Mean 84 87 77 Blood Pressure Mean [Left Arm] Pulse Oximetry 98 100 99 Oxygen Delivery Method BiPAP BiPAP BiPAP Oxygen Flow Rate Fraction of Inspired Oxygen Laboratory Data 09/20/24 05:15 09/20/24 04:38 Lab Results 09/19/24 09/19/24 09/19/24 Range/Units 08:00 08:02 08:20 WBC 8.08 (4.8-10.8) K/ul RBC 2.72 L (4.70-6.10) M/uL Hgb 8.3 L (14.0-18.0) g/dl Hct 29.0 L (42.0-52.0) % MCV 106.6 H (80.0-100.0) fL MCH 30.5 (25.0-34.0) pg MCHC 28.6 L (32.0-36.0) g/dL RDW Std Deviation 60.7 H (36.4-46.3) fL RDW Coeff of Xiomara 15.9 H (11.5-14.5) % Plt Count 183 (130-400) K/uL MPV 10.2 (9.4-12.4) fL Immature Gran % (Auto) 0.5 % Neut % (Auto) 84.0 % Lymph % (Auto) 8.1 % Divide % (Auto) 5.5 % Eos % (Auto) 1.8 % Baso % (Auto) 0.1 % Neut # (Auto) 7.07 H (1.40-6.50) K/uL Lymph # (Auto) 0.68 L (1.20-3.40) K/uL Divide # (Auto) 0.46 (0.11-0.59) K/uL Eos # (Auto) 0.15 (0.00-0.50) K/uL Baso # (Auto) 0.01 (0.00-0.20) K/uL Immature Gran # (Auto) 0.04 (0.01-0.20) K/uL Absolute Nucleated RBC 0.02 (0.00-0.12) K/uL Nucleated RBC % (auto) 0.2 % VBG pH 7.13 L (7.36-7.41) VBG pCO2 86 H (38-50) mmHg VBG pO2 29 mmHg VBG HCO3 29 mmol/L VBG O2 Saturation < 60.0 % VBG Base Excess -2.9 mEq/L Sodium 141 (136-145) mmol/L Potassium 5.2 H (3.5-5.1) mmol/L Chloride 101 (98-107) mmol/L Carbon Dioxide 31 (21-32) mmol/L Anion Gap 9 (3-11) BUN 90 H (6-23) mg/dl Creatinine 4.85 H* (0.6-1.4) mg/dl Est Cr Clr Drug Dosing 14.1 ml/min eGFR 11.51 BUN/Creatinine Ratio 18.6 (10-20) Glucose 89 (70-99(Fasting)) mg/dl Lactate 2.3 H* (0.4-2.0) mmol/L Calcium 8.5 L (8.6-10.3) mg/dl Troponin I High Sens 60.4 H* (0-20) pg/ml B-Natriuretic Peptide 1053 H (0-100) pg/ml Lipase 47 (11-82) U/L Procalcitonin 0.58 H (0-0.5) ng/ml Urine Color Yellow Urine Appearance Turbid A (Clear) Urine pH 5.5 (4.5-7.5) Ur Specific Rush 1.015 (1.000-1.030) Urine Protein 2+ H (Negative) Urine Glucose (UA) Negative (Negative) Urine Ketones Negative (Negative) Urine Blood 2+ H (Negative) Urine Nitrite Negative (Negative) Urine Bilirubin Negative (Negative) Urine Urobilinogen Negative (Negative) Ur Leukocyte Esterase 3+ H (Negative) Urine WBC (Auto) >50 H (0-5) /hpf Urine RBC (Auto) 11-20 H (0-2) /hpf U Hyaline Cast (Auto) 11-20 H (0-2) /lpf U Epithel Cells (Auto) 3-5 H (0-2) /hpf Urine Bacteria (Auto) 4+ H (None Seen) Hyaline Casts Present A (None Presnt) /lpf Granular Casts Present A (None Prsent) /lpf Adenovirus (PCR) (NotDetected) B. pertussis DNA (PCR) (NotDetected) B.parapertussis DNA PCR (NotDetected) C. pneumoniae DNA (PCR) (NotDetected) Coronavirus OC43 (PCR) (NotDetected) Coronavirus HKU1 (PCR) (NotDetected) Coronavirus 229E (PCR) (NotDetected) SARS-CoV-2 (PCR) (NotDetected) Coronavirus NL63 (PCR) (NotDetected) Hep Bs Antigen Negative (Negative) Hep Bs Antibody Non-Immune Hep Bs Antibody, Quant < 3.00 (>or=10mIU/mL Immune) mIU/mL Human Metapneumovir PCR (NotDetected) Influenza Type A (PCR) (NotDetected) Influenza Type B (PCR) (NotDetected) M. pneumoniae (PCR) (NotDetected) Parainfluenza 1 (PCR) (NotDetected) Parainfluenza 2 (PCR) (NotDetected) Parainfluenza 3 (PCR) (NotDetected) Parainfluenza 4 (PCR) (NotDetected) RSV (PCR) (NotDetected) Entero/Rhino (PCR) (NotDetected) 09/19/24 09/19/24 Range/Units 08:32 10:51 WBC (4.8-10.8) K/ul RBC (4.70-6.10) M/uL Hgb (14.0-18.0) g/dl Hct (42.0-52.0) % MCV (80.0-100.0) fL MCH (25.0-34.0) pg MCHC (32.0-36.0) g/dL RDW Std Deviation (36.4-46.3) fL RDW Coeff of Xiomara (11.5-14.5) % Plt Count (130-400) K/uL MPV (9.4-12.4) fL Immature Gran % (Auto) % Neut % (Auto) % Lymph % (Auto) % Divide % (Auto) % Eos % (Auto) % Baso % (Auto) % Neut # (Auto) (1.40-6.50) K/uL Lymph # (Auto) (1.20-3.40) K/uL Divide # (Auto) (0.11-0.59) K/uL Eos # (Auto) (0.00-0.50) K/uL Baso # (Auto) (0.00-0.20) K/uL Immature Gran # (Auto) (0.01-0.20) K/uL Absolute Nucleated RBC (0.00-0.12) K/uL Nucleated RBC % (auto) % VBG pH 7.16 L (7.36-7.41) VBG pCO2 83 H (38-50) mmHg VBG pO2 25 mmHg VBG HCO3 30 mmol/L VBG O2 Saturation < 60.0 % VBG Base Excess 0.1 mEq/L Sodium (136-145) mmol/L Potassium (3.5-5.1) mmol/L Chloride (98-107) mmol/L Carbon Dioxide (21-32) mmol/L Anion Gap (3-11) BUN (6-23) mg/dl Creatinine (0.6-1.4) mg/dl Est Cr Clr Drug Dosing ml/min eGFR BUN/Creatinine Ratio (10-20) Glucose (70-99(Fasting)) mg/dl Lactate 1.1 (0.4-2.0) mmol/L Calcium (8.6-10.3) mg/dl Troponin I High Sens 54.1 H* (0-20) pg/ml B-Natriuretic Peptide (0-100) pg/ml Lipase (11-82) U/L Procalcitonin (0-0.5) ng/ml Urine Color Urine Appearance (Clear) Urine pH (4.5-7.5) Ur Specific Rush (1.000-1.030) Urine Protein (Negative) Urine Glucose (UA) (Negative) Urine Ketones (Negative) Urine Blood (Negative) Urine Nitrite (Negative) Urine Bilirubin (Negative) Urine Urobilinogen (Negative) Ur Leukocyte Esterase (Negative) Urine WBC (Auto) (0-5) /hpf Urine RBC (Auto) (0-2) /hpf U Hyaline Cast (Auto) (0-2) /lpf U Epithel Cells (Auto) (0-2) /hpf Urine Bacteria (Auto) (None Seen) Hyaline Casts (None Presnt) /lpf Granular Casts (None Prsent) /lpf Adenovirus (PCR) Not Detected (NotDetected) B. pertussis DNA (PCR) Not Detected (NotDetected) B.parapertussis DNA PCR Not Detected (NotDetected) C. pneumoniae DNA (PCR) Not Detected (NotDetected) Coronavirus OC43 (PCR) Not Detected (NotDetected) Coronavirus HKU1 (PCR) Not Detected (NotDetected) Coronavirus 229E (PCR) Not Detected (NotDetected) SARS-CoV-2 (PCR) Not Detected (NotDetected) Coronavirus NL63 (PCR) Not Detected (NotDetected) Hep Bs Antigen (Negative) Hep Bs Antibody Hep Bs Antibody, Quant (>or=10mIU/mL Immune) mIU/mL Human Metapneumovir PCR Not Detected (NotDetected) Influenza Type A (PCR) Not Detected (NotDetected) Influenza Type B (PCR) Not Detected (NotDetected) M. pneumoniae (PCR) Not Detected (NotDetected) Parainfluenza 1 (PCR) Not Detected (NotDetected) Parainfluenza 2 (PCR) Not Detected (NotDetected) Parainfluenza 3 (PCR) Not Detected (NotDetected) Parainfluenza 4 (PCR) Not Detected (NotDetected) RSV (PCR) Not Detected (NotDetected) Entero/Rhino (PCR) Not Detected (NotDetected) Administered Medications Albuterol (Albut/Ipratrop 3mg/0.5mg Neb 3 Ml Vial) 3 ml NEB Q6R [facility]; Protocol Stop: 10/19/24 13:57 Last Admin: 09/20/24 07:14 Dose: 3 ml Documented By: Admin: 09/19/24 23:06 Dose: 3 ml Documented By: Admin: 09/19/24 19:35 Dose: 3 ml Documented By: Admin: 09/19/24 15:11 Dose: 3 ml Documented By: CATHERINE Apixaban (Apixaban 2.5 Mg Tab) 2.5 mg PO BID [facility] Stop: 10/19/24 20:59 Last Admin: 09/19/24 20:15 Dose: Not Given Documented By: JEFERSON Atorvastatin Calcium (Atorvastatin 40 Mg Tab) 80 mg PO HS GAURI Stop: 10/19/24 20:59 Last Admin: 09/19/24 20:15 Dose: Not Given Documented By: JEFERSON Carvedilol (Carvedilol 25 Mg Tab) 25 mg PO BID GAURI Stop: 10/19/24 20:59 Last Admin: 09/19/24 20:15 Dose: Not Given Documented By: JEFERSON Dexmedetomidine/Sodium Chloride (Precedex) 200 mcg in 50 mls @ 16.923 mls/hr IV .Q2H58M [facility]; Protocol Stop: 09/23/24 19:44 Last Titration: 09/20/24 07:24 Dose: 0.7 mcg/kg/hr, 16.9 mls/hr Documented By: Titration: 09/20/24 06:42 Dose: 0.8 mcg/kg/hr, 19.3 mls/hr Documented By: MNDebbie Titration: 09/20/24 06:23 Dose: 0.7 mcg/kg/hr, 16.9 mls/hr Documented By: Admin: 09/20/24 06:08 Dose: 0.6 mcg/kg/hr, 14.5 mls/hr Documented By: JEFERSON Co-signed By: [facility] Titration: 09/20/24 05:50 Dose: Infused Documented By: Titration: 09/20/24 05:34 Dose: Infused Documented By: Titration: 09/20/24 05:19 Dose: 0.7 mcg/kg/hr, 16.9 mls/hr Documented By: MNDebbie Titration: 09/20/24 05:04 Dose: 0.8 mcg/kg/hr, 19.3 mls/hr Documented By: Titration: 09/20/24 04:45 Dose: 0.9 mcg/kg/hr, 21.8 mls/hr Documented By: Titration: 09/20/24 04:30 Dose: 1 mcg/kg/hr, 24.2 mls/hr Documented By: Titration: 09/20/24 04:15 Dose: 1.1 mcg/kg/hr, 26.6 mls/hr Documented By: Titration: 09/20/24 03:57 Dose: 1.2 mcg/kg/hr, 29 mls/hr Documented By: Admin: 09/20/24 03:29 Dose: Not Given Documented By: Admin: 09/20/24 03:28 Dose: 1.1 mcg/kg/hr, 26.6 mls/hr Documented By: MNM Co-signed By: ELC Titration: 09/20/24 03:01 Dose: Infused Documented By: MNM Co-signed By: [facility] Titration: 09/20/24 03:00 Dose: 1 mcg/kg/hr, 24.2 mls/hr Documented By: Admin: 09/20/24 02:45 Dose: Not Given Documented By: Titration: 09/20/24 02:45 Dose: 0.9 mcg/kg/hr, 21.8 mls/hr Documented By: Titration: 09/20/24 02:30 Dose: 0.8 mcg/kg/hr, 19.3 mls/hr Documented By: Titration: 09/20/24 02:15 Dose: 0.7 mcg/kg/hr, 16.9 mls/hr Documented By: Titration: 09/20/24 02:00 Dose: 0.6 mcg/kg/hr, 14.5 mls/hr Documented By: Titration: 09/20/24 01:45 Dose: 0.5 mcg/kg/hr, 12.1 mls/hr Documented By: Titration: 09/20/24 01:30 Dose: 0.4 mcg/kg/hr, 9.7 mls/hr Documented By: Titration: 09/20/24 00:45 Dose: 0.3 mcg/kg/hr, 7.3 mls/hr Documented By: Titration: 09/20/24 00:25 Dose: 0.4 mcg/kg/hr, 9.7 mls/hr Documented By: Titration: 09/20/24 00:09 Dose: 0.5 mcg/kg/hr, 12.1 mls/hr Documented By: Titration: 09/19/24 23:58 Dose: 0.6 mcg/kg/hr, 14.5 mls/hr Documented By: Titration: 09/19/24 23:33 Dose: 0.7 mcg/kg/hr, 16.9 mls/hr Documented By: Titration: 09/19/24 23:19 Dose: Infused Documented By: Admin: 09/19/24 23:19 Dose: 0.8 mcg/kg/hr, 19.3 mls/hr Documented By: MNM Co-signed By: ELC Titration: 09/19/24 23:03 Dose: 0.9 mcg/kg/hr, 21.8 mls/hr Documented By: Titration: 09/19/24 22:40 Dose: 1 mcg/kg/hr, 24.2 mls/hr Documented By: Titration: 09/19/24 22:06 Dose: 1.1 mcg/kg/hr, 26.6 mls/hr Documented By: Titration: 09/19/24 21:25 Dose: 1 mcg/kg/hr, 24.2 mls/hr Documented By: Titration: 09/19/24 21:01 Dose: 0.9 mcg/kg/hr, 21.8 mls/hr Documented By: Admin: 09/19/24 21:00 Dose: 0.8 mcg/kg/hr, 19.3 mls/hr Documented By: MNM Co-signed By: [facility] Titration: 09/19/24 21:00 Dose: Infused Documented By: MNM Co-signed By: ELC Titration: 09/19/24 20:42 Dose: 0.8 mcg/kg/hr, 19.3 mls/hr Documented By: Titration: 09/19/24 20:27 Dose: 0.7 mcg/kg/hr, 16.9 mls/hr Documented By: Titration: 09/19/24 20:12 Dose: 0.6 mcg/kg/hr, 14.5 mls/hr Documented By: Titration: 09/19/24 19:57 Dose: 0.5 mcg/kg/hr, 12.1 mls/hr Documented By: Admin: 09/19/24 19:42 Dose: 0.4 mcg/kg/hr, 9.7 mls/hr Documented By: JEFERSON Co-signed By: RAZIA Miscellaneous (Icu Protocol For Hyperglycemia) 1 each N/A Q6 GAURI Stop: 09/21/24 17:59 Last Admin: 09/20/24 05:26 Dose: Not Given Documented By: MNDebbie Admin: 09/19/24 23:33 Dose: Not Given Documented By: MNDebbie Admin: 09/19/24 18:12 Dose: Not Given Documented By: AMS Sodium Chloride (Sodium Chlor 7% 4 Ml Neb) 4 ml NEB BIDR GAURI Stop: 10/19/24 18:59 Last Admin: 09/20/24 07:14 Dose: 4 ml Documented By: KMChar Admin: 09/19/24 19:35 Dose: 4 ml Documented By: MW Discontinued Medications Albuterol (Albuterol 0.5% Neb Soln 2.5 Mg/0.5 Ml Vial) 2.5 mg NEB NOW STA; Protocol Stop: 09/19/24 08:37 Last Admin: 09/19/24 08:51 Dose: 2.5 mg Documented By: VIGNESH Dextrose (Dextrose 50% 50 Ml Syringe) 50 ml IV NOW STA Stop: 09/19/24 12:30 Last Admin: 09/19/24 19:21 Dose: Not Given Documented By: JEFERSON Epoetin Neptali (Epoetin Neptali 10,000 Units/Ml Vial) 10,000 units IV ONE ONE Stop: 09/19/24 12:51 Last Admin: 09/19/24 16:17 Dose: 10,000 units Documented By: CHRISTIANE Haloperidol Lactate (Haloperidol Lactate 5 Mg/Ml 1 Ml Vial) 2.5 mg IV NOW STA Stop: 09/19/24 15:42 Last Admin: 09/19/24 15:53 Dose: 2.5 mg Documented By: LANDON Haloperidol Lactate (Haloperidol Lactate 5 Mg/Ml 1 Ml Vial) Confirm Administered Dose 5 mg .ROUTE .STK-MED ONE Stop: 09/19/24 15:44 Last Admin: 09/19/24 15:54 Dose: Not Given Documented By: NMS Ceftriaxone Sodium (Rocephin) 2,000 mg in 50 mls @ 100 mls/hr IV NOW STA Stop: 09/19/24 09:29 Last Infusion: 09/19/24 09:43 Dose: Infused Documented By: Admin: 09/19/24 09:14 Dose: 100 mls/hr Documented By: VIKRAM Insulin Human Regular (Novolin-R Insulin Per Unit Charge) 10 units IV ONE ONE Stop: 09/19/24 12:46 Last Admin: 09/19/24 19:21 Dose: Not Given Documented By: JEFERSON Miscellaneous (No Heparin In Dialysis) 1 each N/A ONE ONE Stop: 09/19/24 12:51 Last Admin: 09/19/24 19:22 Dose: Not Given Documented By: MNDebbie Sodium Bicarbonate (Sodium Bicarb 8.4% Inj 50 Meq/50 Ml Syr) 50 meq IV NOW STA Stop: 09/19/24 12:30 Last Admin: 09/19/24 19:21 Dose: Not Given Documented By: JEFERSON Sodium Chloride (Sodium Chlor 7% 4 Ml Neb) Confirm Administered Dose 4 ml .ROUTE .STK-MED ONE Stop: 09/19/24 14:53 Last Admin: 09/19/24 15:11 Dose: 4 ml Documented By: CATHERINE Imaging Data Radiologist's Impression: Chest X-Ray 09/19/24 07:56 XR chest 1V portable CLINICAL HISTORY: SOB TECHNIQUE: Single frontal radiograph of the chest was obtained. Comparison: Comparison is made to chest radiograph 09/14/2024 FINDINGS: Exam is limited by underpenetration. Port catheter is stable. Cardiomegaly is noted. Lungs are underinflated but clear. No evidence of pleural effusion or pneumothorax. IMPRESSION: No acute chest disease. ACT 112: Negative or not required by law. Electronically signed by: Tomi Cronin M.D. 09/19/2024 8:27 AM Discharge Plan Visit Data Chief Complaint: Shortness of Breath/Dyspnea Stated Complaint: CONFUSION,HEART,KIDNEY PROBLEMS ED Provider: Oumou Merida Discharge Problem: Acute on chronic respiratory failure with hypoxia and hypercapnia, UTI (urinary tract infection) Patient Disposition: Admitted As Inpatient Discharge Instructions Interventions: ED Discharge Assessment Last Done: 09/19/24 13:23
[2024-09-19 11:07] LABS: Base Excess VBG 0.1 mEq/L; HCO3 VBG 30 mmol/L; Oxygen Saturation VBG < 60.0 %; PCO2 VBG 83 mmHg (38-50); PO2 VBG 25 mmHg; pH VBG 7.16 (7.36-7.41)
[2024-09-19] MEDS ORDERED: INSULIN HUMAN REGULAR PER UNIT 10 UNITS in SYRINGE 9.9 ML IV STA (12:29)
--- NOTE | 2024-09-19 12:32 | Electrocardiogram Report ---
Test Reason : Blood Pressure : */* mmHG Vent. Rate : 96 BPM Atrial Rate : * BPM P-R Int : * ms QRS Dur : 94 ms QT Int : 322 ms P-R-T Axes : * 6 158 degrees QTcB Int : 406 ms Atrial fibrillation with premature ventricular or aberrantly conducted complexes Diffuse Nonspecific ST and T wave abnormality Abnormal ECG When compared with ECG of 07-Sep-2024 14:26, No significant change Confirmed by Ramón Shelby ([id number]) on 09/19/2024 12:32:28 PM Referred By: REFERRED SELF Confirmed By: Ramón Shelby
--- NOTE | 2024-09-19 13:00 | History & Physical Report ---
Date of Service September 19, 2024 Assessment & Plan (1) UTI (urinary tract infection): Plan: This is the main reversible etiology Suspected to have asymptomatic bacteruria initially last admission with citrobacter freundii grown on culture 09/07 and 09/12, placed on Bactrim 09/13 to cover both foot and urine however both cultures were resistant to this IV ceftriaxone Follow up urine and blood cultures Stop mycophenolate Chronic steroid use although his BP is currently stable therefore stress dose steroids currently deferred Follow up urine culture and blood (taken after initial antibiotics) culture Will get CT A/P to assess for obstructive cause (2) Acute on chronic respiratory failure with hypoxia and hypercapnia: Plan: BIPAP, increased settings to 18/5 after second VBG, will defer ongoing management to ICU NPO Secondary to decreased respiratory drive in setting of infection with underlying pulmonary fibrosis Consult pulmonology (3) Acute kidney injury: Plan: May be somewhat artificially elevated due to recent Bactrim use CT A/P without IV contrast to assess for obstructive cause Previously trial of diuresis led to worsening KATHY given he mostly has a right sided heart failure related to interstitial lung disease Consult nephrology - after discussion with Dr Quick planning on admission to ICU for dialysis (4) MAEGAN (obstructive sleep apnea): Plan: BiPAP (5) Acute metabolic encephalopathy: Plan: Secondary to infection, hypercapnia (6) Hypersensitivity pneumonitis: Plan: Stop mycophenolate in setting of infection Continue prednisone Consult pulmonology Plan VTE Prophyalxis - deferred to ICU Diet - NPO Disposition - admit to ICU Admission and Anticipated Discharge Date Admission Date: September 19, 2024 History of Present Illness Chief Complaint: Altered mental state Hallucinations Primary Care Provider: Vinod Pang Manuel De La Cruz is a 79 year old male who presents to the ER due to altered mental state with hallucinations. Unable to get any history from the patient although he does respond and reports not being in any pain currently. He was recently discharged on September 19 due to acute on chronic heart failure with preserved ejection fraction although trial of diuresis caused KATHY as mostly a right sided heart failure secondary to his interstitial lung disease. He was discharged home after passing PT and OT evaluations. Initially doing ok but the last 2 days getting increasingly confused and having visual hallucinations. He was notably treated for a UTI last admission in addition to a foot infection with Bactrim however subsequent cultures were resistant to this. No known fever, chills or urinary symptoms. Allergies Allergy/AdvReac Type Severity Reaction Status Date / Time No Known Allergies Allergy Verified 09/07/24 16:25 Home Medications Medication Instructions Recorded Confirmed Type atorvastatin 80 mg tablet (Lipitor) 80 mg PO HS #0 tabs 12/21/14 09/19/24 History clopidogrel 75 mg tablet 75 mg PO QAM 09/15/21 09/19/24 History nebulizers (Aeroneb Go Nebulizer) #1 ea 09/19/23 09/07/24 Rx Portable Oxygen 12/11/23 09/07/24 History carvedilol 25 mg tablet 25 mg PO BID #180 tabs 04/21/24 09/19/24 Rx ipratropium 0.5 mg-albuterol 3 mg 3 ml inhalation DIRECTED PRN 06/10/24 09/19/24 History (2.5 mg base)/3 mL nebulization SOB/Wheezing soln sertraline 100 mg tablet 100 mg PO QAM 06/10/24 09/19/24 History pantoprazole 40 mg tablet,delayed 40 mg PO QAM 07/17/24 09/19/24 History release cyclobenzaprine 5 mg tablet 5 mg PO TID PRN Muscle Spasms 08/29/24 09/19/24 History epoetin neptali 40,000 unit/mL 40,000 unit subcut MONTHLY 09/07/24 09/19/24 History injection solution (Procrit) apixaban 2.5 mg tablet (Eliquis) 2.5 mg PO BID 90 days #180 tabs 09/14/24 09/19/24 Rx mycophenolate mofetil 250 mg 1,000 mg (4 x 250 mg) PO QAM 30 09/14/24 09/19/24 Rx capsule days #120 caps mycophenolate mofetil 250 mg 500 mg (2 x 250 mg) PO QPM 30 days 09/14/24 09/19/24 Rx capsule #60 caps prednisone 20 mg tablet 10 mg (1/2 x 20 mg) PO DAILY #0 09/14/24 09/19/24 Rx tabs sulfamethoxazole 400 1 tab PO BID 6 days #12 tabs 09/14/24 09/19/24 Rx mg-trimethoprim 80 mg tablet (Bactrim) vitamin B complex (Vitamins B 1 cap PO QAM 30 days #30 caps 09/14/24 09/19/24 Rx Complex capsule) bumetanide 1 mg tablet 1 mg PO QAM 30 days #90 tabs 09/15/24 09/19/24 Rx Past Med/Surg History Problem List (Updated 09/20/24 @ 07:40 by Oumou Merida MD) Acute metabolic encephalopathy Squamous cell lung cancer Acute on chronic respiratory failure with hypoxia and hypercapnia (Acute) UTI (urinary tract infection) (Acute) Anemia due to chronic kidney disease Chest pain Antiplatelet or antithrombotic long-term use Recurrent UTI Hypospadias Right hydrocele Hematuria (Acute) Mild mitral regurgitation Chewing tobacco nicotine dependence Ex-smoker Allergic rhinitis with postnasal drip Abnormal chest CT Multiple pulmonary nodules Vitamin D deficiency GERD (gastroesophageal reflux disease) PAD (peripheral artery disease) Secondary hyperparathyroidism of renal origin Central venous catheter in place, permanent Depression Sinus bradycardia 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 Neuropathy Hypercholesteremia MAEGAN (obstructive sleep apnea) Peripheral vascular disease Hypercalcemia (Acute) Liver mass (Acute) Medical History Hx of sinus bradycardia Mild mitral regurgitation Mild aortic stenosis No aortic stenosis noted on 04/07/24 ECHO Restrictive lung disease Chronic respiratory failure with hypoxia currently on continuous oxygen 1-4 lpm MORONGO (hard of hearing) Hx of fracture of nose early 08/2024, 2/2 to fall; "healing up just fine now" Weakness of both legs Port-A-Cath in place placed in 2019, "no longer works" Multiple pulmonary nodules PAD (peripheral artery disease) Hypercholesteremia GERD (gastroesophageal reflux disease) Dyspnea on minimal exertion Per pulm- likely multifactorial due to combinations of his underlying lung disease, obesity, deconditioning, possible myopathy due to long-term steroid use, as well as heart failure and kidney failure. B-cell lymphoma dx ~2019 or before, in liver, chemo tx. On home oxygen therapy 1-4L continuous, via n/c Closed stable burst fracture of fifth thoracic vertebra f/u chiropractor recently COPD (chronic obstructive pulmonary disease) w/emphysema Paroxysmal atrial fibrillation f/u [facility] on Eliquis HFrEF (heart failure with reduced ejection fraction) f/u [facility] cardio EF 40-44% on 04/2024 ECHO CHF exacerbation (admitted to [facility] 07/17/24-07/19/24) Chronic kidney disease, stage IV (severe) f/u dr. perry, [facility] [place]D (interstitial lung disease) Anemia Chronic anticoagulation Cardiomyopathy Situational depression Left leg DVT ~ Anorexia Weight loss Pneumonia due to COVID-19 virus 2020, admitted to [facility] "almost intubated"; "feels lung damage is due to him having covid" COVID-19 hx, 2020, admitted to [place] "and was almost intubated, still feels that the damage to the lungs is from covid" Osteoarthritis Chronic back pain Hemodialysis patient last dialysis February 11, 2019; nephrology has since stopped dialysis follows with dr perry [facility]. Sleep apnea non-compliant; currently on continuous oxygen 1-4 lpm Hearing deficit Peripheral vascular disease right LE femoral femoral bypass Peripheral neuropathy Scrotal swelling "ongoing" Coronary artery disease s/p stent in Surgical History S/P arteriovenous (AV) fistula creation 2018, rt arm/wrist S/P arteriovenous (AV) fistula repair 05/2023, rt arm/wrist History of esophagogastroduodenoscopy (EGD) History of colonoscopy History of heart artery stent , unsure which hospital, x1 stent; f/u [facility] cardio History of cardiac cath , unsure where, x1 stent; f/u mar[facility] S/P femoral-femoral bypass surgery right leg H/O vascular surgery removal DVT History of lumbar discectomy L4-L5, in History of umbilical hernia repair Family History Mother FHx: lung cancer FHx: uterine cancer Other Allergy Cancer Diabetes Heart disease Lung cancer Lung disease Denies family history of Tuberculosis Emphysema of lung Asthma Social History Smoking Status: Former smoker Tobacco Type: Cigarettes packs per day: 1; Second Hand Exposure: No; Do You Dip or Chew Tobacco: No; Tobacco Cessation Education Requested by Patient: No Hx Alcohol Use: No Hx Substance Use: No Preferred Language: Ukrainian Communication Ability: Effective Shaper Set Up Operator Required: No Beliefs That Will Affect Care: Amish Amish Beliefs: [employer] Current Living Situation: Spouse Current Living Situation Comment: -Sandra Other Information That Helps Us Care for You: No Feels Safe at Home: Yes Safety Concerns: Feels Safe At This Time Assistive Devices: Glasses and Walker Review of Systems Review of Systems: Unobtainable due to cognitive status Physical Exam Constitutional: well developed and + acute distress (respiratory); + not well nourished Eyes: + anicteric sclerae; normal pupil size Respiratory: + respiratory distress, + labored breath ing, + uses accessory muscles and + tachypneic; + abnormal respiratory effort, expiratory phase not prolonged and no stridor Cardiovascular: Rate/Rhythm: + tachycardic and + irregularly irregular Heart Sounds: no murmur Extremities: normal capillary refill; no calf tenderness and no pedal edema Gastrointestinal (Abdomen): normal bowel sounds, soft, nontender, no hepatosplenomegaly Musculoskeletal: no cyanosis or clubbing, extremities motor strength 5/5 Skin: no rashes, warm and dry (no areas of cellulitis seen) Neurologic: moves all extremities, awake and + confused Psychiatric: Orientation: alert; + not oriented x 3 Genitourinary: no CVA tenderness Results & Data Results & Data Vital Signs (Past 12 Hours) Vital Signs Temp Pulse Pulse Resp BP BP Pulse Ox 09/19/24 12:00 88 16 138/63 98 09/19/24 11:30 90 19 106/76 95 09/19/24 11:00 114 H 19 116/58 L 99 09/19/24 10:30 91 H 16 115/74 100 09/19/24 10:15 94 H 24 120/67 98 09/19/24 09:30 99 H 21 139/62 95 09/19/24 09:00 94 H 22 144/109 H 96 09/19/24 08:54 115 H 22 95 09/19/24 08:52 115 H 22 95 09/19/24 08:26 96 H 09/19/24 08:13 09/19/24 08:13 101 H 30 H 167/82 H 97 09/19/24 08:13 09/19/24 08:01 91 H 25 H 167/83 H 96 09/19/24 07:37 36.2 C L 112 H 18 140/101 H 92 O2 Del Method O2 Flow Rate FiO2 09/19/24 12:00 BiPAP 12/13/24 11:30 BiPAP 09/19/24 11:00 BiPAP 09/19/24 10:30 BiPAP 09/19/24 10:15 BiPAP 09/19/24 09:30 BiPAP 09/19/24 09:00 BiPAP 09/19/24 08:54 BiPAP 50 09/19/24 08:52 50 09/19/24 08:26 09/19/24 08:13 Nasal Cannula 4 09/19/24 08:13 Nasal Cannula 4 09/19/24 08:13 Room Air 4 09/19/24 08:01 Nasal Cannula 4 09/19/24 07:37 Nasal Cannula 4 Laboratory Results Abnormal lab results 09/19/24 09/19/24 09/19/24 Range/Units 08:00 08:02 10:51 RBC 2.72 L (4.70-6.10) M/uL Hgb 8.3 L (14.0-18.0) g/dl Hct 29.0 L (42.0-52.0) % MCV 106.6 H (80.0-100.0) fL MCHC 28.6 L (32.0-36.0) g/dL RDW Std Deviation 60.7 H (36.4-46.3) fL RDW Coeff of Xiomara 15.9 H (11.5-14.5) % Plt Count (130-400) K/uL Neut # (Auto) 7.07 H (1.40-6.50) K/uL Lymph # (Auto) 0.68 L (1.20-3.40) K/uL Platelet Estimate (Normal) VBG pH 7.13 L 7.16 L (7.36-7.41) VBG pCO2 86 H 83 H (38-50) mmHg Potassium 5.2 H (3.5-5.1) mmol/L Chloride (98-107) mmol/L BUN 90 H (6-23) mg/dl Creatinine 4.85 H* (0.6-1.4) mg/dl Glucose (70-99(Fasting)) mg/dl POC Glucose (70-99) mg/dl Lactate 2.3 H* (0.4-2.0) mmol/L Calcium 8.5 L (8.6-10.3) mg/dl Troponin I High Sens 60.4 H* 54.1 H* (0-20) pg/ml B-Natriuretic Peptide 1053 H (0-100) pg/ml Procalcitonin 0.58 H (0-0.5) ng/ml Urine Appearance Turbid A (Clear) Urine Protein 2+ H (Negative) Urine Blood 2+ H (Negative) Ur Leukocyte Esterase 3+ H (Negative) Urine WBC (Auto) >50 H (0-5) /hpf Urine RBC (Auto) 11-20 H (0-2) /hpf U Hyaline Cast (Auto) 11-20 H (0-2) /lpf U Epithel Cells (Auto) 3-5 H (0-2) /hpf Urine Bacteria (Auto) 4+ H (None Seen) Hyaline Casts Present A (None Presnt) /lpf Granular Casts Present A (None Prsent) /lpf Crossmatch 09/19/24 09/19/24 Range/Units 15:36 19:57 RBC (4.70-6.10) M/uL Hgb (14.0-18.0) g/dl Hct (42.0-52.0) % MCV (80.0-100.0) fL MCHC (32.0-36.0) g/dL RDW Std Deviation (36.4-46.3) fL RDW Coeff of Xiomara (11.5-14.5) % Plt Count (130-400) K/uL Neut # (Auto) (1.40-6.50) K/uL Lymph # (Auto) (1.20-3.40) K/uL Platelet Estimate (Normal) VBG pH 7.27 L (7.36-7.41) VBG pCO2 59 H (38-50) mmHg Potassium (3.5-5.1) mmol/L Chloride (98-107) mmol/L BUN 54 H D (6-23) mg/dl Creatinine 3.23 H D (0.6-1.4) mg/dl Glucose 69 L (70-99(Fasting)) mg/dl POC Glucose 69 L* (70-99) mg/dl Lactate (0.4-2.0) mmol/L Calcium 8.2 L (8.6-10.3) mg/dl Troponin I High Sens (0-20) pg/ml B-Natriuretic Peptide (0-100) pg/ml Procalcitonin (0-0.5) ng/ml Urine Appearance (Clear) Urine Protein (Negative) Urine Blood (Negative) Ur Leukocyte Esterase (Negative) Urine WBC (Auto) (0-5) /hpf Urine RBC (Auto) (0-2) /hpf U Hyaline Cast (Auto) (0-2) /lpf U Epithel Cells (Auto) (0-2) /hpf Urine Bacteria (Auto) (None Seen) Hyaline Casts (None Presnt) /lpf Granular Casts (None Prsent) /lpf Crossmatch Diagnostic Findings XR chest 1V portable CLINICAL HISTORY: SOB TECHNIQUE: Single frontal radiograph of the chest was obtained. Comparison: Comparison is made to chest radiograph 09/14/2024 FINDINGS: Exam is limited by underpenetration. Port catheter is stable. Cardiomegaly is noted. Lungs are underinflated but clear. No evidence of pleural effusion or pneumothorax. IMPRESSION: No acute chest disease. Medications Administered ER Medications Given: Albuterol 2.5mg NEB Ceftriaxone 2g IV ECG Rate (beats per minute): 96 Rhythm: atrial fibrillation Findings: + nonspecific-ST abn Comparison ECG Date: from (September 07, 2024) Change: no significant change Code Status & VTE Plan Code Status Full VTE Prophylaxis Plan VTE Prophylaxis will be ordered: Yes Critical Care Time Critical Care Time: Yes Total Critical Care Time: 40 PG Care Time/CCT Total # of Minutes Spent Total Time Spent with Patient: Total time spent is greater than 50% in coordination of care (as documented) at patient's floor/unit and/or counseling patient: Critical Care Time: Yes Total Critical Care Time: 40 Coding Level of Care Code 27536 INT INP/OBS CARE 3/75MIN Diagnoses UTI (urinary tract infection) N39.0 Acute on chronic respiratory failure with hypoxia and hypercapnia J96.21; J96.22 Acute kidney injury N17.9 MAEGAN (obstructive sleep apnea) G47.33 Acute metabolic encephalopathy G93.41 Hypersensitivity pneumonitis J67.9 Additional Codes Critical Care Time - Critical Care Time: Yes ([id number])
--- NOTE | 2024-09-19 13:30 | Procedure Note ---
Procedure Note Date of Service September 19, 2024 Procedure date: Noted above Procedure: Temporary hemodialysis catheter Pre-procedure indication: Need for hemodialysis Post-procedure Diagnosis: same as above Prior to Procedure: Informed Consent: The risks, benefits, indications, potential complications, and alternatives were explained to the patient's , daughter, second daughters son-in-law and informed consent obtained. Attending Staff: Breanne Herman DO Resident/APC: Not applicable Skin Prep: Chlorhexidine Anesthesia: 4 mL 1% lidocaine without epinephrine The identity of the patient was confirmed and a bedside time out was performed. Description of Procedure: After sterile prep and sterile drape utilizing standard sterile technique the superficial skin of the right internal jugular area was anesthetized. The target vessel was identified and entered with an 18- gauge needle. Dark venous blood return was noted. A guidewire was inserted through the needle and into the vessel. The needle was withdrawn and a skin sudarshan was made. A tissue dilator was advanced via Seldinger technique and r emoved. A double lumen catheter was inserted via Seldinger technique and the guidewire removed. All ports dayn and flushed easily. A Biopatch was placed, and the catheter was secured via nylon suture. A sterile dressing was then applied. Complications: None Estimated blood loss: Trace Patient tolerated the procedure well. Procedure Date: Noted Above Procedure: Procedural Ultrasound Indication: Central venous access Attending: Breanne Herman DO Resident/Physician Deaf/Hard Of Hearing Specialist: Not applicable Artery visualized: Yes Vein visualized: Yes Compressible Vein: Yes Vein patent: Yes Guidewire or Short Catheter seen in vein prior to dilation: Yes Line confirmed in Vein with ultrasound: Yes Lung Sliding on side of attempt (if applicable): NA If no lung sliding or not obtained has CXR been ordered: Yes Impression: Successful central venous access placement Images obtained are saved for permanent record [facility] [place] Procedure Codes (Charges) Tubes, Drains, and Vasc Access Procedure 1: Tubes, Drains, and Vasc Access: [id number] Insertion Of Non-tunneled Catheter Age 5 Yrs> Coding CPT Codes Tubes, Drains, and Vasc Access - Tubes, Drains, and Vasc Access: [id number] Insertion Of Non-tunneled Catheter Age 5 Yrs> ([id number]) Additional Codes Date of Service ([email or web address])
--- NOTE | 2024-09-19 13:31 | Critical Care Consultation ---
Date of Consultation September 19, 2024 Assessment & Plan (1) Acute kidney injury: Reason Critically Ill: Acute kidney failure in the setting of chronic kidney disease. Acute on chronic hypoxic hypercapnic respiratory failure, history of CHF, paroxysmal atrial fibrillation, cardiomyopathy PLAN: Neuro: Acute encephalopathy: Likely metabolic in origin: Azotemia -Patient requiring restraints at times, one-to-one sitter, not redirectable -Attempting care full chemical restraints starting with 2.5 mg Haldol to facilitate dialysis Continue Zoloft Resp: Restrictive lung disease, ILD, COPD, acute on chronic hypercapnic hypoxic respiratory failure. -After discussion with family patient would not want be intubated, I believe he would lead to permanent vent dependence -Patient has very minimal reserve to compensate for acidosis from a pulmonary and nephrology standpoint -Requiring BiPAP current settings: IPAP 13/5 EPAP 5; 30% FiO2 CV: Paroxysmal A-fib Cardiomyopathy Heart failure with reduced ejection fraction Systemic anticoagulation -Continue atorvastatin, Coreg, Plavix Fluids/Renal: Acute renal failure on chronic kidney disease -Reviewed nephrology notes -Attempting urgent/emergent dialysis as essentially final effort to correct patient's encephalopathy -Temporary hemodialysis catheter placed into the right IJ, radiography demonstrates it transverses into the junction of the internal jugular and subclavian vein -Patient likely has a stenosis, there is a port in the left side: We are attempting dialysis with the line remaining in the subclavian vein as I feel the risk associated with placing a subsequent line in his femoral arteries given his agitation and movements are riskier than attempting dialysis with a the catheter in its current position ID: Probable urinary tract infection -Given 1 g Rocephin in ED will continue Rocephin, urine culture pending GI/Nutrition: N.p.o. especially while on BiPAP Heme: Systemic anticoagulation with Eliquis History of B-cell lymphoma: Remaining left chest port DVT prophylaxis: Eliquis Endocrine: ICU hyperglycemia protocol Chronic steroid use: Continue 10 mg prednisone daily Vascular access: Right temporary HD catheter, currently terminating near subclavian: However tolerating dialysis -Attempt to complete dialysis then discontinue catheter for possible reattempt Code Status: DNR/DNI in event of cardiac arrest and respiratory insufficiency requiring intubation -Had extensive discussion with patient's , daughter, second daughters (son-in-law with the patient) would not want heroic efforts undertaken in event of cardiac arrest: I do not believe patient would survive cardiac arrest with prognosis that would allow him to live independently sim ilarly they will do not feel he would want intubation and if he was to undergo intubation I do believe he would be vent dependent. 1 goal of undergoing dialysis we would improve encephalopathy and hemodynamics to allow for interaction with family. Do believe the patient is at high risk for decompensation and at high risk for during this hospital admission. Disposition: ICU (2) Acute on chronic respiratory failure with hypoxia and hypercapnia: (3) UTI (urinary tract infection): (4) Acute on chronic heart failure with preserved ejection fraction (HFpEF): (5) Acute exacerbation of chronic obstructive pulmonary disease (COPD): (6) B-cell lymphoma: (7) MAEGAN (obstructive sleep apnea): (8) Restrictive lung disease: (9) Mild aortic stenosis: (10) ILD (interstitial lung disease): Supervising Physician Co-Signing Physician Notes I have personally spent 90 minutes of critical care time in the direct manageme nt of this patient. This is a life/limb threatening event. This includes time spent evaluating patient, direct bedside care, chart review, placing orders, interpretation of diagnostic studies, discussion with consultants, patient, and/or family members regarding treatment decisions, as well as other required patient management activities. This time is exclusive of all separately billable procedures, and teaching time and separate from and in addition to any other critical care service time. History of Present Illness Reason for Consultation: End-stage kidney disease requiring dialysis, severe COPD acute on chronic hypoxic respiratory failure History of Present Illness Patient is a 79-year-old male who presented to the ED for increasing hallucinations. Patient has COPD with interstitial lung disease, 1 L oxygen requirement at baseline 2 L with activity, CHF, chronic kidney disease, hypersensitivity pneumonitis. The patient's kidney function has gotten worse and feel that the azotemia is significantly contributing to a metabolic encephalopathy. Patient had a fistula placed several years ago however it was not functioning. He has an indwelling port secondary to B-cell lymphoma. He is being admitted to the hospital for dialysis. Allergies Allergy/AdvReac Type Severity Reaction Status Date / Time No Known Allergies Allergy Verified 09/07/24 16:25 Home Medications Medication Instructions Recorded Confirmed Type atorvastatin 80 mg tablet (Lipitor) 80 mg PO HS #0 tabs 12/21/14 09/19/24 History clopidogrel 75 mg tablet 75 mg PO QAM 09/15/21 09/19/24 History nebulizers (Aeroneb Go Nebulizer) #1 ea 09/19/23 09/07/24 Rx Portable Oxygen 12/11/23 09/07/24 History carvedilol 25 mg tablet 25 mg PO BID #180 tabs 04/21/24 09/19/24 Rx ipratropium 0.5 mg-albuterol 3 mg 3 ml inhalation DIRECTED PRN 06/10/24 09/19/24 History (2.5 mg base)/3 mL nebulization SOB/Wheezing soln sertraline 100 mg tablet 100 mg PO QAM 06/10/24 09/19/24 History pantoprazole 40 mg tablet,delayed 40 mg PO QAM 07/17/24 09/19/24 History release cyclobenzaprine 5 mg tablet 5 mg PO TID PRN Muscle Spasms 08/29/24 09/19/24 History epoetin neptali 40,000 unit/mL 40,000 unit subcut MONTHLY 09/07/24 09/19/24 History injection solution (Procrit) apixaban 2.5 mg tablet (Eliquis) 2.5 mg PO BID 90 days #180 tabs 09/14/24 09/19/24 Rx mycophenolate mofetil 250 mg 1,000 mg (4 x 250 mg) PO QAM 30 09/14/24 09/19/24 Rx capsule days #120 caps mycophenolate mofetil 250 mg 500 mg (2 x 250 mg) PO QPM 30 days 09/14/24 09/19/24 Rx capsule #60 caps prednisone 20 mg tablet 10 mg (1/2 x 20 mg) PO DAILY #0 09/14/24 09/19/24 Rx tabs sulfamethoxazole 400 1 tab PO BID 6 days #12 tabs 09/14/24 09/19/24 Rx mg-trimethoprim 80 mg tablet (Bactrim) vitamin B complex (Vitamins B 1 cap PO QAM 30 days #30 caps 09/14/24 09/19/24 Rx Complex capsule) bumetanide 1 mg tablet 1 mg PO QAM 30 days #90 tabs 09/15/24 09/19/24 Rx Patient History Medical History Hx of sinus bradycardia Mild mitral regurgitation Mild aortic stenosis No aortic stenosis noted on 04/07/24 ECHO Restrictive lung disease Chronic respiratory failure with hypoxia currently on continuous oxygen 1-4 lpm [place] (hard of hearing) Hx of fracture of nose early 08/2024, 2/2 to fall; "healing up just fine now" Weakness of both legs Port-A-Cath in place placed in 2019, "no longer works" Multiple pulmonary nodules PAD (peripheral artery disease) Hypercholesteremia GERD (gastroesophageal reflux disease) Dyspnea on minimal exertion Per pulm- likely multifactorial due to combinations of his underlying lung disease, obesity, deconditioning, possible myopathy due to long-term steroid use, as well as heart failure and kidney failure. B-cell lymphoma dx ~2019 or before, in liver, chemo tx. On home oxygen therapy 1-4L continuous, via n/c Closed stable burst fracture of fifth thoracic vertebra f/u chiropractor recently COPD (chronic obstructive pulmonary disease) w/emphysema Paroxysmal atrial fibrillation f/u [facility] on Eliquis HFrEF (heart failure with reduced ejection fraction) f/u [facility] her[facility] cardio EF 40-44% on 04/2024 ECHO CHF exacerbation (admitted to [facility] 07/17/24-07/19/24) Chronic kidney disease, stage IV (severe) f/u [facility]. [facility] [place] ILD (interstitial lung disease) Anemia Chronic anticoagulation Cardiomyopathy Situational depression Left leg DVT ~ Anorexia Weight loss Pneumonia due to COVID-19 virus 2020, admitted to [facility] "almost intubated"; "feels lung damage is due to him having covid" COVID-19 hx, 2020, admitted to [place] "and was almost intubated, still feels that the damage to the lungs is from covid" Osteoarthritis Chronic back pain Hemodialysis patient last dialysis February 11, 2019; nephrology has since stopped dialysis follows with dr perry [facility] neph. Sleep apnea non-compliant; currently on continuous oxygen 1-4 lpm Hearing deficit Peripheral vascular disease right LE femoral femoral bypass Peripheral neuropathy Scrotal swelling "ongoing" Coronary artery disease s/p stent in Surgical History S/P arteriovenous (AV) fistula creation 2018, rt arm/wrist S/P arteriovenous (AV) fistula repair 05/2023, rt arm/wrist History of esophagogastroduodenoscopy (EGD) History of colonoscopy History of heart artery stent , unsure which hospital, x1 stent; f/u [facility] cardio History of cardiac cath , unsure where, x1 stent; f/u mariah zam[facility] S/P femoral-femoral bypass surgery right leg H/O vascular surgery removal DVT History of lumbar discectomy L4-L5, in History of umbilical hernia repair Family History Mother FHx: lung cancer FHx: uterine cancer Other Allergy Cancer Diabetes Heart disease Lung cancer Lung disease Denies family history of Tuberculosis Emphysema of lung Asthma Social History Smoking Status: Former smoker Tobacco Type: Cigarettes packs per day: 1; Second Hand Exposure: No; Do You Dip or Chew Tobacco: No; Hx Alcohol Use: No Hx Substance Use: No Preferred Language: Bengali Communication Ability: Effective 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 Active hallucinations somewhat redirectable oriented to place and self not time. Grasping at medical devices. Skin: Warm, dry, Head: Atraumatic Ears, nose, mouth and throat: airway patent Cardiovascular: Normal peripheral perfusion mild tachycardia in the low 100s at times on bedside monitor Respiratory: no respiratory distress, hypoxia with BiPAP mask in place Gastrointestinal: Non distended Musculoskeletal: No deformity Results & Data Results & Data Vital Signs (Past 12 Hours) Vital Signs Temp Pulse Pulse Resp BP BP Pulse Ox 09/19/24 12:00 88 16 138/63 98 09/19/24 11:30 90 19 106/76 95 09/19/24 11:00 114 H 19 116/58 L 99 09/19/24 10:30 91 H 16 115/74 100 09/19/24 10:15 94 H 24 120/67 98 09/19/24 09:30 99 H 21 139/62 95 09/19/24 09:00 94 H 22 144/109 H 96 09/19/24 08:54 115 H 22 95 12/13/24 08:52 115 H 22 95 09/19/24 08:26 96 H 09/19/24 08:13 09/19/24 08:13 101 H 30 H 167/82 H 97 09/19/24 08:13 09/19/24 08:01 91 H 25 H 167/83 H 96 09/19/24 07:37 36.2 C L 112 H 18 140/101 H 92 O2 Del Method O2 Flow Rate FiO2 09/19/24 12:00 BiPAP 09/19/24 11:30 BiPAP 09/19/24 11:00 BiPAP 09/19/24 10:30 BiPAP 09/19/24 10:15 BiPAP 09/19/24 09:30 BiPAP 09/19/24 09:00 BiPAP 09/19/24 08:54 BiPAP 50 09/19/24 08:52 50 09/19/24 08:26 09/19/24 08:13 Nasal Cannula 4 09/19/24 08:13 Nasal Cannula 4 09/19/24 08:13 Room Air 4 09/19/24 08:01 Nasal Cannula 4 09/19/24 07:37 Nasal Cannula 4 Critical Care Results & Data Vital Signs (Past 12 Hours) Vital Signs Temp Pulse Pulse Resp BP BP Pulse Ox 09/19/24 15:15 81 22 100 09/19/24 15:11 81 22 100 09/19/24 12:00 88 16 138/63 98 09/19/24 11:45 98 H 20 100 09/19/24 11:30 90 19 106/76 95 09/19/24 11:00 114 H 19 116/58 L 99 09/19/24 10:30 91 H 16 115/74 100 09/19/24 10:15 94 H 24 120/67 98 09/19/24 09:30 99 H 21 139/62 95 09/19/24 09:00 94 H 22 144/109 H 96 09/19/24 08:54 115 H 22 95 09/19/24 08:52 115 H 22 95 09/19/24 08:26 96 H 09/19/24 08:13 09/19/24 08:13 101 H 30 H 167/82 H 97 09/19/24 08:13 09/19/24 08:01 91 H 25 H 167/83 H 96 09/19/24 07:37 36.2 C L 112 H 18 140/101 H 92 O2 Del Method O2 Flow Rate FiO2 09/19/24 15:15 30 09/19/24 15:11 BiPAP 30 09/19/24 12:00 BiPAP 09/19/24 11:45 40 09/19/24 11:30 BiPAP 09/19/24 11:00 BiPAP 09/19/24 10:30 BiPAP 09/19/24 10:15 BiPAP 09/19/24 09:30 BiPAP 09/19/24 09:00 BiPAP 09/19/24 08:54 BiPAP 50 09/19/24 08:52 50 09/19/24 08:26 09/19/24 08:13 Nasal Cannula 4 09/19/24 08:13 Nasal Cannula 4 09/19/24 08:13 Room Air 4 09/19/24 08:01 Nasal Cannula 4 09/19/24 07:37 Nasal Cannula 4 Lab & Micro Results (Past 24 Hours) RBC 2.72 M/uL (4.70-6.10) L 09/19/24 WBC 8.08 K/ul (4.8-10.8) 09/19/24 Hgb 8.3 g/dl (14.0-18.0) L 09/19/24 Hct 29.0 % (42.0-52.0) L 09/19/24 MCV 106.6 fL (80.0-100.0) H 09/19/24 MCH 30.5 pg (25.0-34.0) 09/19/24 MCHC 28.6 g/dL (32.0-36.0) L 09/19/24 RDW Standard Deviation 60.7 fL (36.4-46.3) H 09/19/24 RDW Coefficient of Variation 15.9 % (11.5-14.5) H 09/19/24 Plt Count 183 K/uL (130-400) 09/19/24 MPV 10.2 fL (9.4-12.4) 09/19/24 Nucleated Red Blood Cells % (auto) 0.2 % 09/19 Nucleated RBC Absolute Count (auto) 0.02 K/uL (0.00-0.12) 1 11/20/23 Neutrophils (%) (Auto) 84.0 % 09/19/24 Lymphocytes (%) (Auto) 8.1 % 09/19/24 Monocytes # (Auto) 0.46 K/uL (0.11-0.59) 09/19/24 Eosinophils # (Auto) 0.15 K/uL (0.00-0.50) 09/19/24 Immature Granulocyte % (Auto) 0.5 % 09/19/24 Neutrophils # (Auto) 7.07 K/uL (1.40-6.50) H 09/19/24 Lymphocytes # (Auto) 0.68 K/uL (1.20-3.40) L 09/19/24 Monocytes # (Auto) 0.46 K/uL (0.11-0.59) 09/19/24 Eosinophils # (Auto) 0.15 K/uL (0.00-0.50) 09/19/24 Basophils # (Auto) 0.01 K/uL (0.00-0.20) 09/19/24 Immature Granulocyte # (Auto) 0.04 K/uL (0.01-0.20) 4 Na 141 mmol/L (136-145) 09/19/24 K 5.2 mmol/L (3.5-5.1) H 09/19/24 Cl 101 mmol/L (98-107) 09/19/24 CO2 31 mmol/L (21-32) 09/19/24 Anion Gap 9 (3-11) 09/19/24 BUN 90 mg/dl (6-23) H 09/19/24 Creatinine 4.85 mg/dl (0.6-1.4) H* 09/19/24 BUN/Creatinine Ratio 18.6 (10-20) 09/19/24 Glu 89 mg/dl (70-99(Fasting)) 09/19/24 Ca 8.5 mg/dl (8.6-10.3) L 09/19/24 Calcium Level 8.5 mg/dl (8.6-10.3) L 09/19/24 08:02 Venous Blood pH 7.16 (7.36-7.41) L 09/19/24 10:51 Venous Blood Partial Pressure CO2 83 mmHg (38-50) H 09/19/24 10 :51 Venous Blood Partial Pressure O2 25 mmHg 09/19/24 10:51 Venous Blood HCO3 30 mmol/L 09/19/24 10:51 Venous Blood Base Excess 0.1 mEq/L 09/19/24 10:51 Venous Blood Oxygen Saturation < 60.0 % 09/19/24 10:51 Diagnostic Findings (Past 24 Hours) Chest X-Ray 09/19/24 07:56 XR chest 1V portable CLINICAL HISTORY: SOB TECHNIQUE: Single frontal radiograph of the chest was obtained. Comparison: Comparison is made to chest radiograph 09/14/2024 FINDINGS: Exam is limited by underpenetration. Port catheter is stable. Cardiomegaly is noted. Lungs are underinflated but clear. No evidence of pleural effusion or pneumothorax. IMPRESSION: No acute chest disease. ACT 112: Negative or not required by law. Electronically signed by: Tomi Cronin M.D. 09/19/2024 8:27 AM Chest X-Ray 09/19/24 15:03 XR chest 1V portable CLINICAL HISTORY: lines TECHNIQUE: Single frontal radiograph of the chest was obtained. Comparison: Comparison is made to chest radiograph 09/19/2024 FINDINGS: A port catheter is seen. A right jugular vein catheter appears to terminate in the subclavian vein. The cardiomediastinal silhouette is normal. The lungs are clear. No evidence of pleural effusion or pneumothorax. IMPRESSION: Right jugular catheter terminates in the subclavian vein, repositioning is recommended. ACT 112: Negative or not required by law. Electronically signed by: Tomi Cronin M.D. 09/19/2024 3:32 PM I & O Totals 24 Hours 09/18/24 09/19/24 09/20/24 06:59 06:59 06:59 Intake Total 50 / 50 Balance 50 / 50 Cumulative 09/19/24 07:31 thru 09/19/24 09:43 Intake Total 50 Balance 50 RT Ventilator Mngmt (Last Documented) Ventilator Ordered Settings Respiratory Rate 22 09/19/24 15:15 Fraction of Inspired Oxygen 30 09/19/24 15:15 Ventilator - PT Measurements Respiratory Rate 22 Coding Level of Care Code 94779 CRITICAL CARE 1ST 30-74M Additional Critical Care Time Additional 30min Critical Care Time: Yes - 86322 Diagnoses Acute kidney injury N17.9 Acute on chronic respiratory failure with hypoxia and hypercapnia J96.21; J96.22 UTI (urinary tract infection) N39.0 Acute on chronic heart failure with preserved ejection fraction (HFpEF) I50.33 Acute exacerbation of chronic obstructive pulmonary disease (COPD) J44.1 Diffuse large B-cell lymphoma of lymph nodes of multiple regions C83.38 B-cell lymphoma type: diffuse large B-cell Lymphoma site: multiple regions MAEGAN (obstructive sleep apnea) G47.33 Restrictive lung disease J98.4 Mild aortic stenosis I35.0 ILD (interstitial lung disease) J84.9 Additional Codes Critical Care Time - Additional 30min Critical Care Time: Yes - 23984 ([id number]) (6) B-cell lymphoma B-cell lymphoma type: diffuse large B-cell Lymphoma site: multiple regions Qualified Code(s): C83.38 - Diffuse large B-cell lymphoma, lymph nodes of mult iple sites
[2024-09-19] MEDS ORDERED: ACETAMINOPHEN 325 MG TAB PO PRN (13:58)
[2024-09-19] MEDS: SODIUM CHLOR 7% 4 ML NEB ONE (15:11)
[2024-09-19] MEDS: ALBUT/IPRATROP 3MG/0.5MG NEB 3 ML VIAL NEB SCH (15:11)
--- NOTE | 2024-09-19 15:34 | XRay Report ---
XR chest 1V portable CLINICAL HISTORY: lines TECHNIQUE: Single frontal radiograph of the chest was obtained. Comparison: Comparison is made to chest radiograph 09/19/2024 FINDINGS: A port catheter is seen. A right jugular vein catheter appears to terminate in the subclavian vein. T he cardiomediastinal silhouette is normal. The lungs are clear. No evidence of pleural effusion or pn eumothorax. IMPRESSION: Right jugular catheter terminates in the subclavian vein, repositioning is recommended. ACT 112: Negative or not required by law. Electronically signed by: Tomi Cronin M.D. 09/19/2024 3:32 PM
[2024-09-19] MEDS: HALOPERIDOL LACTATE 5 MG/ML 1 ML VIAL IV STA (15:53)
--- NOTE | 2024-09-19 15:53 | Nephrology Consultation ---
Date of Consultation September 19, 2024 Assessment & Plan (1) Acute kidney injury: (2) Chronic kidney disease, stage IV (severe): (3) COPD with emphysema: (4) Acute on chronic respiratory failure with hypoxia and hypercapnia: (5) Squamous cell lung cancer: Plan Mr. Rojas presented this afternoon with mental status changes and hypercarbic respiratory failure requiring BiPAP therapy. Urinalysis is suggestive of recurrent/ongoing cystitis and ATN with granular casts. Patient has KATHY/CKD. He has mild hyperkalemia without ECG changes but significant azotemia. I have discussed the indications/benefits/risks of hemodialysis with his Sandra today. She voiced understanding and requested that dialysis be initiated if needed. I explained that Mr. Rojas was disoriented and agitated. I do not believe that he will tolerate use of his AV fistula. This does not yet appear mature for cannulation. I have recommended that he be admitted to the ICU and have temporary dialysis catheter placed. HD will be provided for correction of hyperkalemia and azotemia. Following our discussion Dr. Watson was contacted by phone. He was agreeable to the above outlined plan of care and would consult with explosive specialist for ICU admission and temporary dialysis catheter placement. Orders for dialysis have been placed in the EMR and on-call HD RN has been notified. History of Present Illness Reason for Consultation: CKD Attending Physician: Red Watson MD History of Present Illness Mr. De La Cruz is a 79 year old white male who is seen at the request of Dr. Watson for evaluation of KATHY/CKD, hyperkalemia. Medical records in the EMR were reviewed today and are summarized as follows: Mr. De La Cruz has CKD stage G4/A3 (advanced impairment). Baseline Cr has been 3.0-3.5 w/ EGFR 19 cc/min. His primary Electrical Subcontractor is Dr. Perry. He underwent R RC AVF creation by Dr. Sadler 04/02/19. Outpatient Nephrology evaluation revealed acellular urine sediment, UPCR 0.2. 11/26 renal US - R 10.9cm, L 11.7cm. Cortical atrophy noted. No hydronephrosis. His renal insufficiency has been attributed to microvascular disease. Mr. 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 [facility] [place] h/o [place], and recently diagnosed squamous cell carcinoma of the lung. Mr. De La Cruz was last hospitalized 09/07/2024 - 09/14/2024 for acute hypercapnic respiratory failure, CHF, KATHY/CKD and cystitis. During his hospitalization creatinine peaked at 4.30. Patient was managed medically. Fortunately his condition improved and creatinine was 3.8 at the time of discharge. This afternoon Mr. Rojas was brought to the emergency department by his family for evaluation of mental status changes and dyspnea. He required BiPAP administration. CXR revealed clear lung broussard but a left pleural effusion. Urine was turbid with pyuria, bacteriuria and granular casts suggestive of active UTI. Laboratory testing revealed creatinine 4.85, BUN 90, potassium 5.2. ECG was atrial fibrillation with PVC. T waves did not appear peaked. Allergies Allergy/AdvReac Type Severity Reaction Status Date / Time No Known Allergies Allergy Verified 09/07/24 16:25 Home Medications Medication Instructions Recorded Confirmed Type atorvastatin 80 mg tablet (Lipitor) 80 mg PO HS #0 tabs 12/21/14 09/19/24 History clopidogrel 75 mg tablet 75 mg PO QAM 09/15/21 09/19/24 History nebulizers (Aeroneb Go Nebulizer) #1 ea 09/19/23 09/07/24 Rx Portable Oxygen 12/11/23 09/07/24 History carvedilol 25 mg tablet 25 mg PO BID #180 tabs 04/21/24 09/19/24 Rx ipratropium 0.5 mg-albuterol 3 mg 3 ml inhalation DIRECTED PRN 06/10/24 09/19/24 History (2.5 mg base)/3 mL nebulization SOB/Wheezing soln sertraline 100 mg tablet 100 mg PO QAM 06/10/24 09/19/24 History pantoprazole 40 mg tablet,delayed 40 mg PO QAM 07/17/24 09/19/24 History release cyclobenzaprine 5 mg tablet 5 mg PO TID PRN Muscle Spasms 08/29/24 09/19/24 History epoetin nepatli 40,000 unit/mL 40,000 unit subcut MONTHLY 09/07/24 09/19/24 History injection solution (Procrit) apixaban 2.5 mg tablet (Eliquis) 2.5 mg PO BID 90 days #180 tabs 09/14/24 09/19/24 Rx mycophenolate mofetil 250 mg 1,000 mg (4 x 250 mg) PO QAM 30 09/14/24 09/19/24 Rx capsule days #120 caps mycophenolate mofetil 250 mg 500 mg (2 x 250 mg) PO QPM 30 days 09/14/24 09/19/24 Rx capsule #60 caps prednisone 20 mg tablet 10 mg (1/2 x 20 mg) PO DAILY #0 09/14/24 09/19/24 Rx tabs sulfamethoxazole 400 1 tab PO BID 6 days #12 tabs 09/14/24 09/19/24 Rx mg-trimethoprim 80 mg tablet (Bactrim) vitamin B complex (Vitamins B 1 cap PO QAM 30 days #30 caps 09/14/24 09/19/24 Rx Complex capsule) bumetanide 1 mg tablet 1 mg PO QAM 30 days #90 tabs 09/15/24 09/19/24 Rx Patient History Medical History Hx of sinus bradycardia Mild mitral regurgitation Mild aortic stenosis No aortic stenosis noted on 04/07/24 ECHO Restrictive lung disease Chronic respiratory failure with hypoxia currently on continuous oxygen 1-4 lpm [place] (hard of hearing) Hx of fracture of nose early 08/2024, 2/2 to fall; "healing up just fine now" Weakness of both legs Port-A-Cath in place placed in 2019, "no longer works" Multiple pulmonary nodules PAD (peripheral artery disease) Hypercholesteremia GERD (gastroesophageal reflux disease) Dyspnea on minimal exertion Per pulm- likely multifactorial due to combinations of his underlying lung disease, obesity, deconditioning, possible myopathy due to long-term steroid use, as well as heart failure and kidney failure. B-cell lymphoma dx ~2019 or before, in liver, chemo tx. On home oxygen therapy 1-4L continuous, via n/c Closed stable burst fracture of fifth thoracic vertebra f/u chiropractor recently COPD (chronic obstructive pulmonary disease) w/emphysema Paroxysmal atrial fibrillation f/u [facility] cardio on Eliquis HFrEF (heart failure with reduced ejection fraction) f/u [facility] hern[facility] cardio EF 40-44% on 04/2024 ECHO CHF exacerbation (admitted to [facility] 07/17/24-07/19/24) Chronic kidney disease, stage IV (severe) f/u dr. perry, [facility] [place] ILD (interstitial lung disease) Anemia Chronic anticoagulation Cardiomyopathy Situational depression Left leg DVT ~ Anorexia Weight loss Pneumonia due to COVID-19 virus 2020, admitted to [facility] "almost intubated"; "feels lung damage is due to him having covid" COVID-19 hx, 2020, [facility] "and was almost intubated, still feels that the damage to the lungs is from covid" Osteoarthritis Chronic back pain Hemodialysis patient last dialysis February 11, 2019; nephrology has since stopped dialysis follows with [facility]. Sleep apnea non-compliant; currently on continuous oxygen 1-4 lpm Hearing deficit Peripheral vascular disease right LE femoral femoral bypass Peripheral neuropathy Scrotal swelling "ongoing" Coronary artery disease s/p stent in Surgical History S/P arteriovenous (AV) fistula creation 2018, rt arm/wrist S/P arteriovenous (AV) fistula repair 05/2023, rt arm/wrist History of esophagogastroduodenoscopy (EGD) History of colonoscopy History of heart artery stent , unsure which hospital, x1 stent; f/u [facility] cardio History of cardiac cath , unsure where, x1 stent; f/u mariah [facility] S/P femoral-femoral bypass surgery right leg H/O vascular surgery removal DVT History of lumbar discectomy L4-L5, in History of umbilical hernia repair Family History Mother FHx: lung cancer FHx: uterine cancer Other Allergy Cancer Diabetes Heart disease Lung cancer Lung disease Denies family history of Tuberculosis Emphysema of lung Asthma Social History Smoking Status: Former smoker Tobacco Type: Cigarettes packs per day: 1; Second Hand Exposure: No; Do You Dip or Chew Tobacco: No; Hx Alcohol Use: No Hx Substance Use: No Preferred Language: Micronesian Communication Ability: Effective 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 Beliefs That Will Affect Care: None Current Living Situation: Spouse Current Living Situation Comment: -Sandra Feels Safe at Home: Yes Assistive Devices: Glasses, Oxygen - Continuous and Walker Review of Systems Review of Systems: Unobtainable due to reduced consciousness Physical Exam Constitutional: + ill appearing (On BiPAP therapy, agita awais) Eyes: PERRL, conjunctivae normal, anicteric sclerae ENMT: external ear and nose normal, oropharynx normal Neck: trachea midline, no thyromegaly Respiratory: Poor air exchange with expiratory wheezing Cardiovascular: Rate/Rhythm: regular rate and + irregularly irregular Extremities: + AV fistula (+ bruit but venous limb does not appear fully mature); no edema Gastrointestinal (Abdomen): Inspection/Auscultation: + hypoactive bowel sounds Skin: + skin atrophy Numerous ecchymosis Neurologic: + confused (Agitated) Results & Data Vital Signs (Past 12 Hours) Vital Signs Temp Pulse Pulse Resp BP BP Pulse Ox 09/19/24 15:15 81 22 100 09/19/24 15:11 81 22 100 09/19/24 12:00 88 16 138/63 98 09/19/24 11:45 98 H 20 100 09/19/24 11:30 90 19 106/76 95 09/19/24 11:00 114 H 19 116/58 L 99 09/19/24 10:30 91 H 16 115/74 100 09/19/24 10:15 94 H 24 120/67 98 09/19/24 09:30 99 H 21 139/62 95 09/19/24 09:00 94 H 22 144/109 H 96 09/19/24 08:54 115 H 22 95 09/19/24 08:52 115 H 22 95 09/19/24 08:26 96 H 09/19/24 08:13 09/19/24 08:13 101 H 30 H 167/82 H 97 09/19/24 08:13 09/19/24 08:01 91 H 25 H 167/83 H 96 09/19/24 07:37 36.2 C L 112 H 18 140/101 H 92 O2 Del Method O2 Flow Rate FiO2 09/19/24 15:15 30 09/19/24 15:11 BiPAP 30 09/19/24 12:00 BiPAP 09/19/24 11:45 40 09/19/24 11:30 BiPAP 09/19/24 11:00 BiPAP 09/19/24 10:30 BiPAP 09/19/24 10:15 BiPAP 09/19/24 09:30 BiPAP 09/19/24 09:00 BiPAP 09/19/24 08:54 BiPAP 50 09/19/24 08:52 50 09/19/24 08:26 09/19/24 08:13 Nasal Cannula 4 09/19/24 08:13 Nasal Cannula 4 09/19/24 08:13 Room Air 4 09/19/24 08:01 Nasal Cannula 4 09/19/24 07:37 Nasal Cannula 4 Laboratory Results Laboratory Results WBC 8.08 K/ul (4.8-10.8) 09/19/24 08:02 RBC 2.72 M/uL (4.70-6.10) L 09/19/24 08:02 Hgb 8.3 g/dl (14.0-18.0) L 09/19/24 08:02 Hct 29.0 % (42.0-52.0) L 09/19/24 08:02 MCV 106.6 fL (80.0-100.0) H 09/19/24 08:02 MCH 30.5 pg (25.0-34.0) 09/19/24 08:02 MCHC 28.6 g/dL (32.0-36.0) L 09/19/24 08:02 RDW Std Deviation 60.7 fL (36.4-46.3) H 09/19/24 08:02 RDW Coeff of [place] 15.9 % (11.5-14.5) H 09/19/24 08:02 Plt Count 183 K/uL (130-400) 09/19/24 08:02 MPV 10.2 fL (9.4-12.4) 09/19/24 08:02 Immature Gran % (Auto) 0.5 % 09/19/24 08:02 Neut % (Auto) 84.0 % 09/19/24 08:02 Lymph % (Auto) 8.1 % 09/19/24 08:02 [place] % (Auto) 5.5 % 09/19/24 08:02 Eos % (Auto) 1.8 % 09/19/24 08:02 Baso % (Auto) 0.1 % 09/19/24 08:02 Neut # (Auto) 7.07 K/uL (1.40-6.50) H 09/19/24 08:02 Lymph # (Auto) 0.68 K/uL (1.20-3.40) L 09/19/24 08:02 [place] # (Auto) 0.46 K/uL (0.11-0.59) 09/19/24 08:02 Eos # (Auto) 0.15 K/uL (0.00-0.50) 09/19/24 08:02 Baso # (Auto) 0.01 K/uL (0.00-0.20) 09/19/24 08:02 Immature Gran # (Auto) 0.04 K/uL (0.01-0.20) 09/19/24 08:02 Absolute Nucleated RBC 0.02 K/uL (0.00-0.12) 09/19/24 08:02 Nucleated RBC % (auto) 0.2 % 09/19/24 08:02 VBG pH 7.16 (7.36-7.41) L 09/19/24 10:51 VBG pCO2 83 mmHg (38-50) H 09/19/24 10:51 VBG pO2 25 mmHg 09/19/24 10:51 VBG HCO3 30 mmol/L 09/19/24 10:51 VBG O2 Saturation < 60.0 % 09/19/24 10:51 VBG Base Excess 0.1 mEq/L 09/19/24 10:51 Sodium 141 mmol/L (136-145) 09/19/24 08:02 Potassium 5.2 mmol/L (3.5-5.1) H 09/19/24 08:02 Chloride 101 mmol/L (98-107) 09/19/24 08:02 Carbon Dioxide 31 mmol/L (21-32) 09/19/24 08:02 Anion Gap 9 (3-11) 09/19/24 08:02 BUN 90 mg/dl (6-23) H 09/19/24 08:02 Creatinine 4.85 mg/dl (0.6-1.4) H* 09/19/24 08:02 Est Cr Clr Drug Dosing 14.1 ml/min 09/19/24 08:02 eGFR 11.51 09/19/24 08:02 BUN/Creatinine Ratio 18.6 (10-20) 09/19/24 08:02 Glucose 89 mg/dl (70-99(Fasting)) 09/19/24 08:02 POC Glucose 71 mg/dl (70-99) 09/19/24 15:39 Lactate 1.1 mmol/L (0.4-2.0) 09/19/24 10:51 Calcium 8.5 mg/dl (8.6-10.3) L 09/19/24 08:02 Troponin I High Sens 54.1 pg/ml (0-20) H* 09/19/24 10:51 B-Natriuretic Peptide 1053 pg/ml (0-100) H 09/19/24 08:02 Lipase 47 U/L (11-82) 09/19/24 08:02 Procalcitonin 0.58 ng/ml (0-0.5) H 09/19/24 08:02 Urine Color Yellow 09/19/24 08:00 Urine Appearance Turbid (Clear) A 09/19/24 08:00 Urine pH 5.5 (4.5-7.5) 09/19/24 08:00 Ur Specific [place] 1.015 (1.000-1.030) 09/19/24 08:00 Urine Protein 2+ (Negative) H 09/19/24 08:00 Urine Glucose (UA) Negative (Negative) 09/19/24 08:00 Urine Ketones Negative (Negative) 09/19/24 08:00 Urine Blood 2+ (Negative) H 09/19/24 08:00 Urine Nitrite Negative (Negative) 09/19/24 08:00 Urine Bilirubin Negative (Negative) 09/19/24 08:00 Urine Urobilinogen Negative (Negative) 09/19/24 08:00 Ur Leukocyte Esterase 3+ (Negative) H 09/19/24 08:00 Urine WBC (Auto) >50 /hpf (0-5) H 09/19/24 08:00 Urine RBC (Auto) 11-20 /hpf (0-2) H 09/19/24 08:00 U Hyaline Cast (Auto) 11-20 /lpf (0-2) H 09/19/24 08:00 U Epithel Cells (Auto) 3-5 /hpf (0-2) H 09/19/24 08:00 Urine Bacteria (Auto) 4+ (None Seen) H 09/19/24 08:00 Hyaline Casts Present /lpf (None Presnt) A 09/19/24 08:00 Granular Casts Present /lpf (None Prsent) A 09/19/24 08:00 Adenovirus (PCR) Not Detected (NotDetected) 09/19/24 08:32 B. pertussis DNA (PCR) Not Detected (NotDetected) 09/19/24 08:32 B.parapertussis DNA PCR Not Detected (NotDetected) 09/19/24 08:32 C. pneumoniae DNA (PCR) Not Detected (NotDetected) 09/19/24 08:32 Coronavirus OC43 (PCR) Not Detected (NotDetected) 09/19/24 08:32 Coronavirus HKU1 (PCR) Not Detected (NotDetected) 09/19/24 08:32 Coronavirus 229E (PCR) Not Detected (NotDetected) 09/19/24 08:32 SARS-CoV-2 (PCR) Not Detected (NotDetected) 09/19/24 08:32 Coronavirus NL63 (PCR) Not Detected (NotDetected) 09/19/24 08:32 Human Metapneumovir PCR Not Detected (NotDetected) 09/19/24 08:32 Influenza Type A (PCR) Not Detected (NotDetected) 09/19/24 08:32 Influenza Type B (PCR) Not Detected (NotDetected) 09/19/24 08:32 M. pneumoniae (PCR) Not Detected (NotDetected) 09/19/24 08:32 Parainfluenza 1 (PCR) Not Detected (NotDetected) 09/19/24 08:32 Parainfluenza 2 (PCR) Not Detected (NotDetected) 09/19/24 08:32 Parainfluenza 3 (PCR) Not Detected (NotDetected) 09/19/24 08:32 Parainfluenza 4 (PCR) Not Detected (NotDetected) 09/19/24 08:32 RSV (PCR) Not Detected (NotDetected) 09/19/24 08:32 Entero/Rhino (PCR) Not Detected (NotDetected) 09/19/24 08:32 Impressions Chest X-Ray 09/19/24 15:03 XR chest 1V portable CLINICAL HISTORY: lines TECHNIQUE: Single frontal radiograph of the chest was obtained. Comparison: Comparison is made to chest radiograph 09/19/2024 FINDINGS: A port catheter is seen. A right jugular vein catheter appears to terminate in the subclavian vein. The cardiomediastinal silhouette is normal. The lungs are clear. No evidence of pleural effusion or pneumothorax. IMPRESSION: Right jugular catheter terminates in the subclavian vein, repositioning is recommended. ACT 112: Negative or not required by law. Electronically signed by: Tomi Cronin M.D. 09/19/2024 3:32 PM PG Care Time/CCT Total # of Minutes Spent Total Time Spent with Patient: Total time spent is greater than 50% in coordination of care (as documented) at patient's floor/unit and/or counseling patient: Coding Level of Care Code 20866 IN/OBS CONSULT LVL 5,80M Diagnoses Acute kidney injury N17.9 Chronic kidney disease, stage IV (severe) N18.4 COPD with emphysema J43.9 Acute on chronic respiratory failure with hypoxia and hypercapnia J96.21; J96.22 Squamous cell lung cancer C34.90
[2024-09-19] MEDS: HALOPERIDOL LACTATE 5 MG/ML 1 ML VIAL ONE (15:54)
[2024-09-19] MEDS: EPOETIN ALFA 10,000 UNITS/ML VIAL IV ONE (16:17)
[2024-09-19 16:42] LABS: Hep B Surface Ag with confirm Negative (Negative)
[2024-09-19 16:51] LABS: Hepatitis B Surface Ab Quant < 3.00 mIU/mL (>or=10mIU/mL Immune); Hepatitis B Surface Antibody Non-Immune
--- NOTE | 2024-09-19 17:30 | Dialysis Progress Note ---
Date of Service September 19, 2024 Assessment & Plan (1) Acute kidney injury: (2) Chronic kidney disease, stage IV (severe): (3) Acute hypercapnic respiratory failure: Plan Mr. De La Cruz was seen while on HD. He remains agitated and unable to keep arms still. R IJ temporary dialysis catheter has tip within subclavian vein. Critical care team aware. Catheter is running A-->A at Qb 260 cc/min, no alarms. No change to dialysis prescription at this time. Admission and Anticipated Discharge Date Admission Date: September 19, 2024 Subjective Mr. De La Cruz was evaluated while on HD Review of Systems Review of Systems: Unobtainable due to cognitive status Physical Exam Constitutional: + ill appearing (On BiPAP therapy, agita awais) Eyes: PERRL, conjunctivae normal, anicteric sclerae ENMT: external ear and nose normal, oropharynx normal Neck: trachea midline, no thyromegaly R IJ temporary HD catheter without bleeding Cardiovascular: Rate/Rhythm: regular rate and + irregularly irregular Extremities: + AV fistula (+ bruit but venous limb does not appear fully mature); no edema Gastrointestinal (Abdomen): Inspection/Auscultation: + hypoactive bowel sounds Skin: + skin atrophy Neurologic: + confused (Agitated) Results & Data Vital Signs (Past 12 Hours) Vital Signs Temp Pulse Pulse Resp BP BP Pulse Ox 09/19/24 17:00 88 110/86 09/19/24 16:34 102 H 09/19/24 16:30 97 H 123/98 09/19/24 16:00 09/19/24 16:00 96 H 161/56 H 09/19/24 15:45 88 151/113 H 09/19/24 15:35 137/81 09/19/24 15:34 37.0 C 99 H 09/19/24 15:33 90 20 100 09/19/24 15:15 81 22 100 09/19/24 15:11 81 22 100 09/19/24 15:07 137/88 09/19/24 15:02 83 23 100 09/19/24 14:13 09/19/24 14:13 36.5 C 98 H 18 137/82 94 09/19/24 14:02 93 H 19 96 09/19/24 13:00 89 20 91 09/19/24 12:00 88 16 138/63 98 09/19/24 11:45 98 H 20 100 09/19/24 11:30 90 19 106/76 95 09/19/24 11:00 114 H 19 116/58 L 99 09/19/24 10:30 91 H 16 115/74 100 09/19/24 10:15 94 H 24 120/67 98 09/19/24 09:30 99 H 21 139/62 95 09/19/24 09:00 94 H 22 144/109 H 96 09/19/24 08:54 115 H 22 95 09/19/24 08:52 115 H 22 95 09/19/24 08:26 96 H 09/19/24 08:13 09/19/24 08:13 101 H 30 H 167/82 H 97 09/19/24 08:13 09/19/24 08:01 91 H 25 H 167/83 H 96 09/19/24 07:37 36.2 C L 112 H 18 140/101 H 92 O2 Del Method O2 Flow Rate FiO2 09/19/24 17:00 09/19/24 16:34 09/19/24 16:30 09/19/24 16:00 BiPAP 40 09/19/24 16:00 09/19/24 15:45 09/19/24 15:35 09/19/24 15:34 09/19/24 15:33 09/19/24 15:15 30 09/19/24 15:11 BiPAP 30 09/19/24 15:07 09/19/24 15:02 09/19/24 14:13 BiPAP 40 09/19/24 14:13 BiPAP 40 09/19/24 14:02 09/19/24 13:00 09/19/24 12:00 BiPAP 09/19/24 11:45 40 09/19/24 11:30 BiPAP 09/19/24 11:00 BiPAP 09/19/24 10:30 BiPAP 09/19/24 10:15 BiPAP 09/19/24 09:30 BiPAP 09/19/24 09:00 BiPAP 09/19/24 08:54 BiPAP 50 09/19/24 08:52 50 09/19/24 08:26 09/19/24 08:13 Nasal Cannula 4 09/19/24 08:13 Nasal Cannula 4 09/19/24 08:13 Room Air 4 09/19/24 08:01 Nasal Cannula 4 09/19/24 07:37 Nasal Cannula 4 Coding Level of Care Code None Diagnoses Acute kidney injury N17.9 Chronic kidney disease, stage IV (severe) N18.4 Acute hypercapnic respiratory failure J96.02 CPT Codes Dialysis, One Evaluation - 01221 ([id number])
[2024-09-19] MEDS: ICU Protocol for HYPERglycemia SCH (18:12)
[2024-09-19] MEDS: DEXTROSE 50% 50 ML SYRINGE IV STA (19:21)
[2024-09-19] MEDS: SODIUM BICARB 8.4% INJ 50 MEQ/50 ML SYR IV STA (19:21)
[2024-09-19] MEDS: NovoLIN-R INSULIN PER UNIT CHARGE IV ONE (19:21)
[2024-09-19] MEDS ORDERED: STAT IV Infusion **Titration per Protocol STA (19:34)
[2024-09-19] MEDS: SODIUM CHLOR 7% 4 ML NEB NEB SCH (19:35)
[2024-09-19] MEDS: dexMEDEtomidine 200 MCG/50 ML BAG IV SCH (19:42)
[2024-09-19 20:06] LABS: HCO3 VBG 27 mmol/L; Oxygen Saturation VBG < 60.0 %; PCO2 VBG 59 mmHg (38-50); PO2 VBG 29 mmHg; pH VBG 7.27 (7.36-7.41)
[2024-09-19] MEDS: ATORVASTATIN 40 MG TAB PO SCH (20:15)
[2024-09-19] MEDS: carvediloL 25 MG TAB PO SCH (20:15)
[2024-09-19] MEDS: APIXABAN 2.5 MG TAB PO SCH (20:15)
[2024-09-19 20:32] LABS: BUN Creatinine Ratio 16.7 (10-20); Calcium 8.2 mg/dl (8.6-10.3); Creatinine Clr Calc Pharmacy 21.3 ml/min; Potassium 4.5 mmol/L (3.5-5.1)
[2024-09-19] MEDS ORDERED: HEPARIN 100 UNIT/ML 5ML FLUSH FLUSH PRN (21:04)
--- NOTE | 2024-09-19 21:25 | Communication Note ---
Date of Service: September 19, 2024 Patient underwent placement of a HD catheter in the right IJ earlier today. Postprocedure chest x-ray did show that the tip of the catheter terminated in the right subclavian vein. Fortunately, we were able to use the HD catheter for session of dialysis this evening. Repeat lab work shows improvement and acidosis and creatinine. Patient is starting to make some urine as well. I did speak with nephrology regarding risk and benefits of leaving the catheter in for an additional day versus removal to avoid potential complications. Decision was made to go ahead and remove the HD cath this evening. If patient were to need additional dialysis he does have a fistula that could potentially be accessed if his delirium were to improve, however insertion of additional HD catheter site would be limited due to the left port. Catheter was removed by myself at the bedside without complication. Minimal bleeding noted and gauze dressing applied at the site. Will follow-up repeat lab work and coordinate with nephrology regarding plan for additional dialysis sessions and potential need for additional access as well. Coding Level of Care Code None
[2024-09-20 05:18] LABS: Calcium 7.8 mg/dl (8.6-10.3); Potassium 4.7 mmol/L (3.5-5.1)
[2024-09-20 05:24] LABS: BUN Creatinine Ratio 17.4 (10-20); Creatinine Clr Calc Pharmacy 18.2 ml/min
[2024-09-20 05:41] LABS: Hematocrit (blood only) 20.7 % (42.0-52.0); Hemoglobin 6.1 g/dl (14.0-18.0); White Blood Count 7.01 K/ul (4.8-10.8)
[2024-09-20 05:44] LABS: Mean Corpuscular Hemoglobin 30.7 pg (25.0-34.0); Mean Corpuscular Hgb Conc 29.5 g/dL (32.0-36.0); RDW Coefficient of Variation 15.8 % (11.5-14.5); RDW Standard Deviation 58.8 fL (36.4-46.3); Red Blood Count 1.99 M/uL (4.70-6.10)
[2024-09-20 05:55] LABS: Mean Platelet Volume 10.6 fL (9.4-12.4); Platelet Count 80 K/uL (130-400)
[2024-09-20 05:56] LABS: Eosinophils # (auto) 0.05 K/uL (0.00-0.50); Eosinophils % (auto) 0.7 %; Immature Granulocytes # (auto) 0.05 K/uL (0.01-0.20); Immature Granulocytes % (auto) 0.7 %; Lymphocytes # (auto) 0.27 K/uL (1.20-3.40); Lymphocytes % (auto) 3.9 %; Monocytes # (auto) 0.38 K/uL (0.11-0.59); Monocytes % (auto) 5.4 %; Neutrophils # (auto) 6.26 K/uL (1.40-6.50); Neutrophils % (auto) 89.3 %; Platelet Estimate Decreased (Normal); Poikilocytosis Present; Polychromasia 2+
[2024-09-20] MEDS ORDERED: SODIUM CHLORIDE 0.9% 100 ML IV PRN (06:10)
[2024-09-20] MEDS ORDERED: SODIUM CHLORIDE 0.9% 50 ML IV PRN (06:10)
[2024-09-20] MEDS: predniSONE 10 MG TABLET PO SCH (08:36)
[2024-09-20] MEDS: PANTOprazole 40 MG TAB PO SCH (08:36)
[2024-09-20] MEDS: SERTRALINE HCL 100 MG TABLET PO SCH (08:36)
[2024-09-20] MEDS: CLOPIDOGREL BISULFATE 75 MG TAB PO SCH (08:36)
--- NOTE | 2024-09-20 10:02 | Hospitalist Progress Note ---
Date of Service September 20, 2024 Assessment & Plan (1) ARF (acute renal failure): Plan: May be somewhat artificially elevated due to recent Bactrim use CT A/P without IV contrast to assess for obstructive cause Significantly azotemic, received dialysis overnight Significant acidotic on VBG, suspect mixed metabolic and respiratory acidosis Likely UTI, continue CTX, await final UCx results (2) Acute metabolic encephalopathy: Plan: Suspect metabolic Continue chemical, physical restraints, 1:1 as needed (3) Acute on chronic respiratory failure with hypoxia and hypercapnia: Plan: In setting of ILD, COPD Continue to wean/titrate BiPAP as needed/tolerated Given patient's significant lung disease unlikely to be able to compensate for metabolic acidosis NPO (4) Anemia: Plan: anemia of chronic disease acute drop in Hb, likely 2/2 HD cath placement 1U PRBCs Trend H&H (5) UTI (urinary tract infection): Plan: see #1 (6) Acute on chronic heart failure with preserved ejection fraction (HFpEF): Plan: with PAF continue atorvastatin, coreg, Plavix (7) B-cell lymphoma: Plan: L chest port remains in place (8) Restrictive lung disease: Plan: see #3 (9) ILD (interstitial lung disease): Plan: see #3 Plan DNR/DNI VTE Prophyalxis - deferred to ICU Diet - NPO Disposition - admit to ICU Admission and Anticipated Discharge Date Admission Date: September 19, 2024 Supervising Physician Co-Signing Physician Notes Attending Physician Supervision Note: I independently interviewed and examined the patient and verified the muniz history and physical, reviewed labs and image studies and agree with findings and care plan noted above. Seen this am - was on bipap and constantly pulling on mask. Responded to voice but unable to communicate. RRR, lungs clear anteriorly. [place] with Stage 5 CKD ? UTI Acute on chronic resp failure ILD/COPD with chronic resp failure. HFmrEF MAEGAN Recent diagnosis of Lung Ca Highly complex case with high likelihood of overall poor outcome. After ICU team discussion with family patient was transitioned to comfort care. Was pronounced 4.58pm. Subjective Patient seen and evaluated at bedside this morning. Patient remained agitated overnight. Now requiring soft restraints and is on Precedex drip. Remains ICU status. Per chart review, family would not want invasive ventilation or CPR in the event patient decompensates further. This am patient is minimally interactive and clearly agitated in his bed. BiPAP in place. Received HD overnight. Hb decreased to 6.1 since admission. 1 U PRBCs given. Review of Systems Review of Systems: reviewed, per HPI Physical Exam Physical Exam: Constitutional: ill appearing, very agitated, minimally interactive HEENT: NCAT, no conjunctival injection CV: extremities well perfused, a fib present on monitor Resp: BiPAP in place GI: nondistended MSK: no gross deformities appreciated Neuro: disoriented, minimally interactive Results & Data Results & Data Vital Signs (Past 12 Hours) Vital Signs Temp Pulse Pulse Resp BP BP Pulse Ox 09/20/24 09:41 36.3 C L 69 22 115/88 95 09/20/24 09:17 36.3 C L 70 20 108/55 L 96 09/20/24 09:02 36.4 C L 71 22 108/70 97 09/20/24 09:00 36.3 C L 74 22 112/83 94 09/20/24 08:42 36.5 C 70 22 104/51 L 95 09/20/24 08:00 09/20/24 08:00 09/20/24 08:00 74 09/20/24 07:14 83 23 97 09/20/24 07:14 83 23 97 09/20/24 07:00 36.3 C L 74 22 101/79 94 09/20/24 06:46 99/73 L 09/20/24 06:31 117/57 L 09/20/24 06:16 124/51 L 09/20/24 06:00 101/46 L 09/20/24 06:00 101/46 L 09/20/24 05:45 103/50 L 09/20/24 05:45 103/50 L 09/20/24 05:36 74 18 100 09/20/24 05:30 95/44 L 09/20/24 05:30 69 17 100 09/20/24 05:15 69 17 100 09/20/24 05:15 106/52 L 09/20/24 05:15 106/52 L 09/20/24 05:00 78 17 100 09/20/24 05:00 88/45 L 09/20/24 04:30 93/39 L 09/20/24 04:24 75 17 100 09/20/24 04:21 72 16 100 09/20/24 04:17 36.7 C 09/20/24 04:15 87/46 L 09/20/24 04:15 87/46 L 09/20/24 04:02 92/45 L 09/20/24 03:51 84 17 100 09/20/24 03:50 143/67 H 09/20/24 03:48 69 100 09/20/24 03:39 80 19 98 09/20/24 03:31 106/54 L 09/20/24 03:30 89 18 100 09/20/24 03:16 129/107 H 09/20/24 03:09 94 H 100 09/20/24 03:03 81 15 100 09/20/24 03:01 108/67 09/20/24 03:01 108/67 09/20/24 02:47 111/70 09/20/24 02:45 93 H 98 09/20/24 02:45 90 21 100 09/20/24 02:33 104 H 99 09/20/24 02:15 98 H 20 100 09/20/24 02:15 132/62 09/20/24 02:06 93 H 21 100 09/20/24 02:02 114/63 09/20/24 01:51 71 17 99 09/20/24 01:45 120/59 L 09/20/24 01:33 77 18 100 09/20/24 01:30 120/53 L 09/20/24 01:30 120/53 L 09/20/24 01:30 120/53 L 09/20/24 01:30 120/53 L 09/20/24 01:30 78 17 100 09/20/24 01:15 109/58 L 09/20/24 01:15 109/58 L 09/20/24 01:15 109/58 L 09/20/24 01:15 109/58 L 09/20/24 01:12 71 18 100 09/20/24 01:00 114/50 L 09/20/24 00:57 75 15 100 09/20/24 00:48 70 17 100 09/20/24 00:45 101/57 L 09/20/24 00:45 101/57 L 09/20/24 00:45 101/57 L 09/20/24 00:30 102/54 L 09/20/24 00:30 102/54 L 09/20/24 00:30 102/54 L 09/20/24 00:27 70 16 100 09/20/24 00:00 72 09/20/24 00:00 97/50 L 09/20/24 00:00 97/50 L 09/20/24 00:00 97/50 L 09/20/24 00:00 73 20 100 09/19/24 23:45 71 16 100 09/19/24 23:45 101/47 L 09/19/24 23:45 101/47 L 09/19/24 23:33 37 C 09/19/24 23:30 111/58 L 09/19/24 23:30 80 21 100 09/19/24 23:21 69 24 100 09/19/24 23:15 94/50 L 09/19/24 23:15 94/50 L 09/19/24 23:10 73 20 100 09/19/24 23:10 73 20 100 09/19/24 23:00 88/41 L 09/19/24 22:57 78 16 100 09/19/24 22:51 73 17 100 09/19/24 22:45 90/45 L 09/19/24 22:45 90/45 L 09/19/24 22:45 90/45 L 09/19/24 22:39 87 21 100 09/19/24 22:36 77 18 100 09/19/24 22:30 87/48 L 09/19/24 22:24 72 19 100 O2 Del Method O2 Flow Rate FiO2 09/20/24 09:41 09/20/24 09:17 09/20/24 09:02 09/20/24 09:00 09/20/24 08:42 09/20/24 08:00 BiPAP 09/20/24 08:00 BiPAP 09/20/24 08:00 09/20/24 07:14 30 09/20/24 07:14 BiPAP 09/20/24 07:00 Room Air, BiPAP 30 09/20/24 06:46 09/20/24 06:31 09/20/24 06:16 09/20/24 06:00 09/20/24 06:00 09/20/24 05:45 09/20/24 05:45 09/20/24 05:36 09/20/24 05:30 09/20/24 05:30 09/20/24 05:15 09/20/24 05:15 09/20/24 05:15 09/20/24 05:00 09/20/24 05:00 09/20/24 04:30 09/20/24 04:24 09/20/24 04:21 09/20/24 04:17 09/20/24 04:15 09/20/24 04:15 09/20/24 04:02 09/20/24 03:51 09/20/24 03:50 09/20/24 03:48 09/20/24 03:39 09/20/24 03:31 09/20/24 03:30 09/20/24 03:16 09/20/24 03:09 09/20/24 03:03 09/20/24 03:01 09/20/24 03:01 09/20/24 02:47 09/20/24 02:45 09/20/24 02:45 30 09/20/24 02:33 09/20/24 02:15 09/20/24 02:15 09/20/24 02:06 09/20/24 02:02 09/20/24 01:51 09/20/24 01:45 09/20/24 01:33 09/20/24 01:30 09/20/24 01:30 09/20/24 01:30 09/20/24 01:30 09/20/24 01:30 09/20/24 01:15 09/20/24 01:15 09/20/24 01:15 09/20/24 01:15 09/20/24 01:09/20/24 01:00 09/20/24 00:57 09/20/24 00:48 09/20/24 00:45 09/20/24 00:45 09/20/24 00:45 09/20/24 00:30 09/20/24 00:30 09/20/24 00:30 09/20/24 00:27 09/20/24 00:00 09/20/24 00:00 09/20/24 00:00 09/20/24 00:00 09/20/24 00:00 09/19/24 23:45 09/19/24 23:45 09/19/24 23:45 09/19/24 23:33 09/19/24 23:30 09/19/24 23:30 09/19/24 23:21 09/19/24 23:15 09/19/24 23:15 09/19/24 23:10 30 09/19/24 23:10 BiPAP 30 09/19/24 23:00 09/19/24 22:57 09/19/24 22:51 09/19/24 22:45 09/19/24 22:45 09/19/24 22:45 09/19/24 22:39 09/19/24 22:36 09/19/24 22:30 09/19/24 22:24 Resident Activity Tracking Resident Involvement: Resident Care Provided Care Provided: Adult Hospital Medicine (1) ARF (acute renal failure) Acute renal failure type: unspecified Qualified Code(s): N17.9 - Acute kidney failure, unspecified (4) Anemia Anemia type: due to chronic kidney disease Chronic kidney disease stage: stage 4 (severe) Qualified Code(s): N18.4 - Chronic kidney disease, stage 4 (severe); D63.1 - Anemia in chronic kidney disease (7) B-cell lymphoma 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
[2024-09-20 11:05] VITALS: TEMP 97.2
--- NOTE | 2024-09-20 11:15 | Critical Care Progress Note ---
Date of Service September 20, 2024 Assessment & Plan (1) Acute kidney injury: Plan: Reason Critically Ill: Acute kidney failure in the setting of chronic kidney disease. Acute on chronic hypoxic hypercapnic respiratory failure, history of CHF, paroxysmal atrial fibrillation, cardiomyopathy PLAN: Neuro: Acute encephalopathy: Likely metabolic in origin: Multifactorial: Azotemia versus CO2 narcosis -Patient requiring restraints at times, one-to-one sitter, not redirectable -Attempting care full chemical restraints with Precedex -At 0.8 of precedex he was over sedate and snoring: Walking fine line with restraint and sedation trying to optimize the patient who has very minimal reserve. Continue Zoloft Resp: Restrictive lung disease, ILD, COPD, acute on chronic hypercapnic hypoxic respiratory failure. -After discussion with family patient would not want be intubated, I believe he would lead to permanent vent dependence -Patient has very minimal reserve to compensate for acidosis from a pulmonary and nephrology standpoint -Weaned BiPAP current settings very minimally: IPAP 10/5 EPAP 5; 30% FiO2 -Attempts to discontinue noninvasive mechanical ventilation -Will check baseline VBG now then give trial off BiPAP CV: Paroxysmal A-fib Cardiomyopathy Heart failure with reduced ejection fraction Systemic anticoagulation -Continue atorvastatin, Coreg, Plavix Fluids/Renal: Acute renal failure on chronic kidney disease -Discussed with nephrology -No indication for dialysis today, next anticipated dialysis likely 2 days from now: Sunday -Malpositioned temporary hemodialysis catheter placed into the right IJ has been removed -Patient likely has a stenosis, there is a port in the left side: This will be readdressed if patient undergoes additional dialysis ID: Probable urinary tract infection -Given 1 g Rocephin in ED will continue Rocephin, urine culture pending GI/Nutrition: N.p.o. especially while on BiPAP Heme: Anemia of chronic disease and acute blood loss anemia -1 unit packed red blood cells will recheck H&H at 2 PM Systemic anticoagulation with Eliquis History of B-cell lymphoma: Remaining left chest port DVT prophylaxis: Eliquis Endocrine: ICU hyperglycemia protocol Chronic steroid use: Continue 10 mg prednisone daily Vascular access: Peripheral IVs Code Status: DNR/DNI in event of cardiac arrest and respiratory insufficiency requiring intubation -Discussion with patient's daughter and at bedside this morning. Family does not see significant improvement from yesterday and agrees patient's agitation may be increased today. They are having additional family come to see the patient. I am concerned the patient is entering an end-stage terminal condition without meaningful chance of recovery, if the patient's family feels he would be best suited via comfort care I would be in agreement with that treatment plan. Disposition: ICU (2) Acute on chronic respiratory failure with hypoxia and hypercapnia: (3) UTI (urinary tract infection): (4) Acute on chronic heart failure with preserved ejection fraction (HFpEF): (5) Acute exacerbation of chronic obstructive pulmonary disease (COPD): (6) B-cell lymphoma: (7) MAEGAN (obstructive sleep apnea): (8) Restrictive lung disease: (9) Mild aortic stenosis: (10) ILD (interstitial lung disease): Admission and Anticipated Discharge Date Admission Date: September 19, 2024 Supervising Physician Co-Signing Physician Notes I have personally spent 50 minutes of critical care time in the direct management of this patient. This is a life/limb threatening event. This includes time spent evaluating patient, direct bedside care, chart review, placing orders, interpretation of diagnostic studies, discussion with consultants, patient, and/or family members regarding treatment decisions, as well as other required patient management activities. This time is exclusive of all separately billable procedures, and teaching time and separate from and in addition to any other critical care service time. Subjective Intermittent/waxing and waning delirium. Requiring physical and chemical restraints secondary to agitated delirium and pulling at life-sustaining medical treatments. Receiving 1 unit packed red blood cells, anticipate this was secondary to blood loss during HD catheter placement Physical Exam Physical Exam: General: Alert. Intermittently following commands, grasping at medical devices. Frequently moving in bed Skin: Warm, dry, Head: Atraumatic Ears, nose, mouth and throat: BiPAP mask in place Cardiovascular: Normal peripheral perfusion; A-fib on monitor Respiratory: no respiratory distress, hypoxia with BiPAP mask in place Gastrointestinal: Non distended Musculoskeletal: No deformity Results & Data Results & Data Vital Signs (Past 12 Hours) Vital Signs Temp Pulse Pulse Resp BP BP Pulse Ox 09/20/24 10:47 36.5 C 72 20 106/55 L 93 09/20/24 10:08 106/55 L 09/20/24 10:00 77 22 100 09/20/24 09:47 36.5 C 78 22 115/78 09/20/24 09:41 36.3 C L 69 22 115/88 95 09/20/24 09:39 80 23 92 09/20/24 09:37 115/88 09/20/24 09:37 115/88 09/20/24 09:37 115/88 09/20/24 09:27 71 20 100 09/20/24 09:17 36.3 C L 70 20 108/55 L 96 09/20/24 09:09 76 21 97 09/20/24 09:02 36.4 C L 71 22 108/70 97 09/20/24 09:01 108/55 L 09/20/24 09:00 36.3 C L 74 22 112/83 94 09/20/24 08:55 112/59 L 09/20/24 08:51 70 24 85 L 09/20/24 08:42 36.5 C 70 22 104/51 L 95 09/20/24 08:39 77 24 95 09/20/24 08:39 104/51 L 09/20/24 08:39 104/51 L 09/20/24 08:36 74 19 88 L 09/20/24 08:31 100/46 L 09/20/24 08:27 76 19 97 09/20/24 08:15 75 18 98 09/20/24 08:00 09/20/24 08:00 09/20/24 08:00 74 09/20/24 07:39 76 21 94 09/20/24 07:31 114/48 L 09/20/24 07:16 101/48 L 09/20/24 07:14 83 23 97 09/20/24 07:14 83 23 97 09/20/24 07:09 104/59 L 09/20/24 07:09 104/59 L 09/20/24 07:09 104/59 L 09/20/24 07:06 71 21 98 09/20/24 07:03 77 18 99 09/20/24 07:00 36.3 C L 74 22 101/79 94 09/20/24 06:46 99/73 L 09/20/24 06:31 117/57 L 09/20/24 06:16 124/51 L 09/20/24 06:00 101/46 L 09/20/24 06:00 101/46 L 09/20/24 05:45 103/50 L 09/20/24 05:45 103/50 L 09/20/24 05:36 74 18 100 09/20/24 05:30 95/44 L 09/20/24 05:30 69 17 100 09/20/24 05:15 69 17 100 09/20/24 05:15 106/52 L 09/20/24 05:15 106/52 L 09/20/24 05:00 78 17 100 09/20/24 05:00 88/45 L 09/20/24 04:30 93/39 L 09/20/24 04:24 75 17 100 09/20/24 04:21 72 16 100 09/20/24 04:17 36.7 C 09/20/24 04:15 87/46 L 09/20/24 04:15 87/46 L 09/20/24 04:02 92/45 L 09/20/24 03:51 84 17 100 09/20/24 03:50 143/67 H 09/20/24 03:48 69 100 09/20/24 03:39 80 19 98 09/20/24 03:31 106/54 L 09/20/24 03:30 89 18 100 09/20/24 03:16 129/107 H 09/20/24 03:09 94 H 100 09/20/24 03:03 81 15 100 09/20/24 03:01 108/67 09/20/24 03:01 108/67 09/20/24 02:47 111/70 09/20/24 02:45 93 H 98 09/20/24 02:45 90 21 100 09/20/24 02:33 104 H 99 09/20/24 02:15 98 H 20 100 09/20/24 02:15 132/62 09/20/24 02:06 93 H 21 100 09/20/24 02:02 114/63 09/20/24 01:51 71 17 99 09/20/24 01:45 120/59 L 09/20/24 01:33 77 18 100 09/20/24 01:30 120/53 L 09/20/24 01:30 120/53 L 09/20/24 01:30 120/53 L 09/20/24 01:30 120/53 L 09/20/24 01:30 78 17 100 09/20/24 01:15 109/58 L 09/20/24 01:15 109/58 L 09/20/24 01:15 109/58 L 09/20/24 01:15 109/58 L 09/20/24 01:12 71 18 100 09/20/24 01:00 114/50 L 09/20/24 00:57 75 15 100 09/20/24 00:48 70 17 100 09/20/24 00:45 101/57 L 09/20/24 00:45 101/57 L 09/20/24 00:45 101/57 L 09/20/24 00:30 102/54 L 09/20/24 00:30 102/54 L 09/20/24 00:30 102/54 L 09/20/24 00:27 70 16 100 09/20/24 00:00 72 09/20/24 00:00 97/50 L 09/20/24 00:00 97/50 L 09/20/24 00:00 97/50 L 09/20/24 00:00 73 20 100 09/19/24 23:45 71 16 100 09/19/24 23:45 101/47 L 09/19/24 23:45 101/47 L 09/19/24 23:33 37 C 09/19/24 23:30 111/58 L 09/19/24 23:30 80 21 100 09/19/24 23:21 69 24 100 09/19/24 23:15 94/50 L 09/19/24 23:15 94/50 L 09/19/24 23:10 73 20 100 09/19/24 23:10 73 20 100 O2 Del Method O2 Flow Rate FiO2 09/20/24 10:47 09/20/24 10:08 09/20/24 10:00 09/20/24 09:47 09/20/24 09:41 09/20/24 09:39 09/20/24 09:37 09/20/24 09:37 09/20/24 09:37 09/20/24 09:27 09/20/24 09:17 09/20/24 09:09 09/20/24 09:02 09/20/24 09:01 09/20/24 09:00 09/20/24 08:55 09/20/24 08:51 09/20/24 08:42 09/20/24 08:39 09/20/24 08:39 09/20/24 08:39 09/20/24 08:36 09/20/24 08:31 09/20/24 08:27 09/20/24 08:15 09/20/24 08:00 BiPAP 30 09/20/24 08:00 BiPAP 30 09/20/24 08:00 09/20/24 07:39 09/20/24 07:31 09/20/24 07:16 09/20/24 07:14 30 09/20/24 07:14 BiPAP 30 09/20/24 07:09 09/20/24 07:09 09/20/24 07:09 09/20/24 07:06 09/20/24 07:03 09/20/24 07:00 Room Air, BiPAP 30 09/20/24 06:46 09/20/24 06:31 09/20/24 06:16 09/20/24 06:00 09/20/24 06:00 09/20/24 05:45 09/20/24 05:45 09/20/24 05:36 09/20/24 05:30 09/20/24 05:30 09/20/24 05:15 09/20/24 05:15 09/20/24 05:15 09/20/24 05:00 09/20/24 05:00 09/20/24 04:30 09/20/24 04:24 09/20/24 04:21 09/20/24 04:17 09/20/24 04:15 09/20/24 04:15 09/20/24 04:02 09/20/24 03:51 09/20/24 03:50 09/20/24 03:48 09/20/24 03:39 09/20/24 03:31 09/20/24 03:30 09/20/24 03:16 09/20/24 03:09 09/20/24 03:03 09/20/24 03:01 09/20/24 03:01 09/20/24 02:47 09/20/24 02:45 09/20/24 02:45 30 09/20/24 02:33 09/20/24 02:15 09/20/24 02:15 09/20/24 02:06 09/20/24 02:02 09/20/24 01:51 09/20/24 01:45 09/20/24 01:33 09/20/24 01:30 09/20/24 01:30 09/20/24 01:30 09/20/24 01:30 09/20/24 01:30 09/20/24 01:15 09/20/24 01:09/20/24 01:09/20/24 01:09/20/24 01:09/20/24 01:00 09/20/24 00:57 09/20/24 00:48 09/20/24 00:45 09/20/24 00:45 09/20/24 00:45 09/20/24 00:30 09/20/24 00:30 09/20/24 00:30 09/20/24 00:27 09/20/24 00:00 09/20/24 00:00 09/20/24 00:00 09/20/24 00:00 09/20/24 00:00 09/19/24 23:45 09/19/24 23:45 09/19/24 23:45 09/19/24 23:33 09/19/24 23:30 09/19/24 23:30 09/19/24 23:21 09/19/24 23:15 09/19/24 23:15 09/19/24 23:10 30 09/19/24 23:10 BiPAP 30 Critical Care Results & Data Vital Signs (Past 12 Hours) Vital Signs Temp Pulse Pulse Resp BP BP Pulse Ox 09/20/24 11:04 36.2 C L 75 22 91/60 L 93 09/20/24 10:47 36.5 C 72 20 106/55 L 93 09/20/24 10:08 106/55 L 09/20/24 10:00 77 22 100 09/20/24 09:47 36.5 C 78 22 115/78 09/20/24 09:41 36.3 C L 69 22 115/88 95 09/20/24 09:39 80 23 92 09/20/24 09:37 115/88 09/20/24 09:37 115/88 09/20/24 09:37 115/88 09/20/24 09:27 71 20 100 09/20/24 09:17 36.3 C L 70 20 108/55 L 96 09/20/24 09:09 76 21 97 09/20/24 09:02 36.4 C L 71 22 108/70 97 09/20/24 09:01 108/55 L 09/20/24 09:00 36.3 C L 74 22 112/83 94 09/20/24 08:55 112/59 L 09/20/24 08:51 70 24 85 L 09/20/24 08:42 36.5 C 70 22 104/51 L 95 09/20/24 08:39 77 24 95 09/20/24 08:39 104/51 L 09/20/24 08:39 104/51 L 09/20/24 08:36 74 19 88 L 09/20/24 08:31 100/46 L 09/20/24 08:27 76 19 97 09/20/24 08:15 75 18 98 09/20/24 08:00 09/20/24 08:00 09/20/24 08:00 74 09/20/24 07:39 76 21 94 09/20/24 07:31 114/48 L 09/20/24 07:16 101/48 L 09/20/24 07:14 83 23 97 09/20/24 07:14 83 23 97 09/20/24 07:09 104/59 L 09/20/24 07:09 104/59 L 09/20/24 07:09 104/59 L 09/20/24 07:06 71 21 98 09/20/24 07:03 77 18 99 09/20/24 07:00 36.3 C L 74 22 101/79 94 09/20/24 06:46 99/73 L 09/20/24 06:31 117/57 L 09/20/24 06:16 124/51 L 09/20/24 06:00 101/46 L 09/20/24 06:00 101/46 L 09/20/24 05:45 103/50 L 09/20/24 05:45 103/50 L 09/20/24 05:36 74 18 100 09/20/24 05:30 95/44 L 09/20/24 05:30 69 17 100 09/20/24 05:15 69 17 100 09/20/24 05:15 106/52 L 09/20/24 05:15 106/52 L 09/20/24 05:00 78 17 100 09/20/24 05:00 88/45 L 09/20/24 04:30 93/39 L 09/20/24 04:24 75 17 100 09/20/24 04:21 72 16 100 09/20/24 04:17 36.7 C 09/20/24 04:15 87/46 L 09/20/24 04:15 87/46 L 09/20/24 04:02 92/45 L 09/20/24 03:51 84 17 100 09/20/24 03:50 143/67 H 09/20/24 03:48 69 100 09/20/24 03:39 80 19 98 09/20/24 03:31 106/54 L 09/20/24 03:30 89 18 100 09/20/24 03:16 129/107 H 09/20/24 03:09 94 H 100 09/20/24 03:03 81 15 100 09/20/24 03:01 108/67 09/20/24 03:01 108/67 09/20/24 02:47 111/70 09/20/24 02:45 93 H 98 09/20/24 02:45 90 21 100 09/20/24 02:33 104 H 99 09/20/24 02:15 98 H 20 100 09/20/24 02:15 132/62 09/20/24 02:06 93 H 21 100 09/20/24 02:02 114/63 09/20/24 01:51 71 17 99 09/20/24 01:45 120/59 L 09/20/24 01:33 77 18 100 09/20/24 01:30 120/53 L 09/20/24 01:30 120/53 L 09/20/24 01:30 120/53 L 09/20/24 01:30 120/53 L 09/20/24 01:30 78 17 100 09/20/24 01:15 109/58 L 09/20/24 01:15 109/58 L 09/20/24 01:15 109/58 L 09/20/24 01:15 109/58 L 09/20/24 01:12 71 18 100 09/20/24 01:00 114/50 L 09/20/24 00:57 75 15 100 09/20/24 00:48 70 17 100 09/20/24 00:45 101/57 L 09/20/24 00:45 101/57 L 09/20/24 00:45 101/57 L 09/20/24 00:30 102/54 L 09/20/24 00:30 102/54 L 09/20/24 00:30 102/54 L 09/20/24 00:27 70 16 100 09/20/24 00:00 72 09/20/24 00:00 97/50 L 09/20/24 00:00 97/50 L 09/20/24 00:00 97/50 L 09/20/24 00:00 73 20 100 09/19/24 23:45 71 16 100 09/19/24 23:45 101/47 L 09/19/24 23:45 101/47 L 09/19/24 23:33 37 C 09/19/24 23:30 111/58 L 09/19/24 23:30 80 21 100 09/19/24 23:21 69 24 100 09/19/24 23:15 94/50 L 09/19/24 23:15 94/50 L 09/19/24 23:10 73 20 100 09/19/24 23:10 73 20 100 O2 Del Method O2 Flow Rate FiO2 09/20/24 11:04 09/20/24 10:47 09/20/24 10:08 09/20/24 10:00 09/20/24 09:47 09/20/24 09:41 09/20/24 09:39 09/20/24 09:37 09/20/24 09:37 09/20/24 09:37 09/20/24 09:27 09/20/24 09:17 09/20/24 09:09 09/20/24 09:02 09/20/24 09:01 09/20/24 09:00 09/20/24 08:55 09/20/24 08:51 09/20/24 08:42 09/20/24 08:39 09/20/24 08:39 09/20/24 08:39 09/20/24 08:36 09/20/24 08:31 09/20/24 08:27 09/20/24 08:15 09/20/24 08:00 BiPAP 30 09/20/24 08:00 BiPAP 30 09/20/24 08:00 09/20/24 07:39 09/20/24 07:31 09/20/24 07:16 09/20/24 07:14 30 09/20/24 07:14 BiPAP 30 09/20/24 07:09 09/20/24 07:09 09/20/24 07:09 09/20/24 07:06 09/20/24 07:03 09/20/24 07:00 Room Air, BiPAP 30 09/20/24 06:46 09/20/24 06:31 09/20/24 06:16 09/20/24 06:00 09/20/24 06:00 09/20/24 05:45 09/20/24 05:45 09/20/24 05:36 09/20/24 05:30 09/20/24 05:30 09/20/24 05:15 09/20/24 05:15 09/20/24 05:15 09/20/24 05:00 09/20/24 05:00 09/20/24 04:30 09/20/24 04:24 09/20/24 04:21 09/20/24 04:17 09/20/24 04:15 09/20/24 04:15 09/20/24 04:02 09/20/24 03:51 09/20/24 03:50 09/20/24 03:48 09/20/24 03:39 09/20/24 03:31 09/20/24 03:30 09/20/24 03:16 09/20/24 03:09 09/20/24 03:03 09/20/24 03:01 09/20/24 03:01 09/20/24 02:47 09/20/24 02:45 09/20/24 02:45 30 09/20/24 02:33 09/20/24 02:15 09/20/24 02:15 09/20/24 02:06 09/20/24 02:02 09/20/24 01:51 09/20/24 01:45 09/20/24 01:33 09/20/24 01:30 09/20/24 01:30 09/20/24 01:30 09/20/24 01:30 09/20/24 01:30 09/20/24 01:15 09/20/24 01:15 09/20/24 01:15 09/20/24 01:15 09/20/24 01:12 09/20/24 01:00 09/20/24 00:57 09/20/24 00:48 09/20/24 00:45 09/20/24 00:45 09/20/24 00:45 09/20/24 00:30 09/20/24 00:30 09/20/24 00:30 09/20/24 00:27 09/20/24 00:00 09/20/24 00:00 09/20/24 00:00 09/20/24 00:00 09/20/24 00:00 09/19/24 23:45 09/19/24 23:45 09/19/24 23:45 09/19/24 23:33 09/19/24 23:30 09/19/24 23:30 09/19/24 23:21 09/19/24 23:15 09/19/24 23:15 09/19/24 23:10 30 09/19/24 23:10 BiPAP 30 Lab & Micro Results (Past 24 Hours) RBC 1.99 M/uL (4.70-6.10) L 09/20/24 WBC 7.01 K/ul (4.8-10.8) 09/20/24 Hgb 6.1 g/dl (14.0-18.0) L* 09/20/24 Hct 20.7 % (42.0-52.0) L* 09/20/24 MCV 104.0 fL (80.0-100.0) H 09/20/24 MCH 30.7 pg (25.0-34.0) 09/20/24 MCHC 29.5 g/dL (32.0-36.0) L 09/20/24 RDW Standard Deviation 58.8 fL (36.4-46.3) H 09/20/24 RDW Coefficient of Variation 15.8 % (11.5-14.5) H 09/20/24 Plt Count 80 K/uL (130-400) L 09/20/24 MPV 10.6 fL (9.4-12.4) 09/20/24 Neutrophils (%) (Auto) 89.3 % 09/20/24 Lymphocytes (%) (Auto) 3.9 % 09/20/24 Monocytes # (Auto) 0.38 K/uL (0.11-0.59) 09/20/24 Eosinophils # (Auto) 0.05 K/uL (0.00-0.50) 09/20/24 Immature Granulocyte % (Auto) 0.7 % 09/20/24 Neutrophils # (Auto) 6.26 K/uL (1.40-6.50) 09/20/24 Lymphocytes # (Auto) 0.27 K/uL (1.20-3.40) L 09/20/24 Monocytes # (Auto) 0.38 K/uL (0.11-0.59) 09/20/24 Eosinophils # (Auto) 0.05 K/uL (0.00-0.50) 09/20/24 Basophils # (Auto) 0.00 K/uL (0.00-0.20) 09/20/24 Immature Granulocyte # (Auto) 0.05 K/uL (0.01-0.20) 4 Polychromasia 2+ 09/20/24 Poikilocytosis Present 09/20/24 Na 143 mmol/L (136-145) 09/20/24 K 4.7 mmol/L (3.5-5.1) 09/20/24 Cl 108 mmol/L (98-107) H 09/20/24 CO2 25 mmol/L (21-32) 09/20/24 Anion Gap 10 (3-11) 09/20/24 BUN 64 mg/dl (6-23) H 09/20/24 Creatinine 3.67 mg/dl (0.6-1.4) H 09/20/24 BUN/Creatinine Ratio 17.4 (10-20) 09/20/24 Glu 84 mg/dl (70-99(Fasting)) 09/20/24 Ca 7.8 mg/dl (8.6-10.3) L 09/20/24 Phosphorus Level 4.0 mg/dl (2.5-4.9) 09/20/24 Mg 2.0 mg/dl (1.7-2.4) 09/20/24 04:38 Calcium Level 7.8 mg/dl (8.6-10.3) L 09/20/24 04:38 Venous Blood pH 7.27 (7.36-7.41) L 09/19/24 19:57 Venous Blood Partial Pressure CO2 59 mmHg (38-50) H 09/19/24 19 :57 Venous Blood Partial Pressure O2 29 mmHg 09/19/24 19:57 Venous Blood HCO3 27 mmol/L 09/19/24 19:57 Venous Blood Base Excess -1.0 mEq/L 09/19/24 19:57 Venous Blood Oxygen Saturation < 60.0 % 09/19/24 19:57 Microbiology 09/19/24 08:00 Urine Culture - Preliminary Urine,Clean Catch Citrobacter freundii complex Diagnostic Findings (Past 24 Hours) Chest X-Ray 09/19/24 15:03 XR chest 1V portable CLINICAL HISTORY: lines TECHNIQUE: Single frontal radiograph of the chest was obtained. Comparison: Comparison is made to chest radiograph 09/19/2024 FINDINGS: A port catheter is seen. A right jugular vein catheter appears to terminate in the subclavian vein. The cardiomediastinal silhouette is normal. The lungs are clear. No evidence of pleural effusion or pneumothorax. IMPRESSION: Right jugular catheter terminates in the subclavian vein, repositioning is recommended. ACT 112: Negative or not required by law. Electronically signed by: Tomi Cronin M.D. 09/19/2024 3:32 PM I & O Totals 24 Hours 09/19/24 09/20/24 09/21/24 06:59 06:59 06:59 Intake Total 228.067 / 228.067 35.792 / 35.792 Output Total 825 / 825 120 / 120 Balance -596.933 / -596.933 -84.208 / -84.208 Cumulative 09/19/24 07:31 thru 09/20/24 11:03 Intake Total 263.859 Output Total 945 Balance -681.141 RT Ventilator Mngmt (Last Documented) Ventilator Ordered Settings Respiratory Rate 22 09/20/24 11:04 Fraction of Inspired Oxygen 30 09/20/24 08 :00 Ventilator - PT Measurements Respiratory Rate 22 Coding Level of Care Code 08340 CRITICAL CARE 1ST 30-74M Diagnoses Acute kidney injury N17.9 Acute on chronic respiratory failure with hypoxia and hypercapnia J96.21; J96.22 UTI (urinary tract infection) N39.0 Acute on chronic heart failure with preserved ejection fraction (HFpEF) I50.33 Acute exacerbation of chronic obstructive pulmonary disease (COPD) J44.1 Diffuse large B-cell lymphoma of lymph nodes of multiple regions C83.38 B-cell lymphoma type: diffuse large B-cell Lymphoma site: multiple regions MAEGAN (obstructive sleep apnea) G47.33 Restrictive lung disease J98.4 Mild aortic stenosis I35.0 ILD (interstitial lung disease) J84.9 (6) B-cell lymphoma 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
[2024-09-20] MEDS: cefTRIAXone SODIUM 1,000 MG/50 ML BAG IV SCH (11:17)
--- NOTE | 2024-09-20 11:53 | Nephrology Progress Note ---
Date of Service September 20, 2024 Assessment & Plan (1) Acute metabolic encephalopathy: (2) Anemia due to chronic kidney disease: (3) Chronic kidney disease, stage IV (severe): Plan 79-year-old gentleman with history of stage IV CKD, interstitial lung disease and lung carcinoma admitted with change in mental status and encephalopathy. Noted to have KATHY with BUN in the 90s and had 1 session of dialysis yesterday via right IJ temporary dialysis catheter. Clinically no sign of volume overload. Electrolyte acceptable. Blood pressure has been quite low with systolic in 80s to 90s. Clinically remained restless, agitated with changes in mental status with no improvement after dialysis yesterday. Unlikely mental status changes and encephalopathy mainly uremic in nature. Most likely secondary to hypercarbic respiratory failure with underlying advanced interstitial lung disease. -- Do not see any indication for dialysis at this time continue to monitor volume status and electrolyte. -- Prognosis remains quite guarded, discussed with family at bedside who seem to understand the critical nature of Mr. De La Cruz's illness. -- Will be available for any need for urgent dialysis. -- Continue to monitor, volume status, kidney function and electrolyte Admission and Anticipated Discharge Date Admission Date: September 19, 2024 Osman Jackson was seen and evaluated this morning with his Sandra and daughter at bedside. He remained quite restless and agitated but repeatedly tried to express that he wants to get out of here. Blood pressure remained low. Electrolyte acceptable but BUN/creatinine did go up slightly compared to post dialysis yesterday. Review of Systems Review of Systems: Detailed review of system was not possible due to mental status. Physical Exam Constitutional: + acute distress, + ill appearing and + altered mental status Respiratory: Auscultation: + diminished lung sounds and + rhonchi Cardiovascular: Rate/Rhythm: regular rate and regular rhythm Heart Sounds: normal S1 and normal S2 Extremities: no edema Skin: + turgor decreased and + skin atrophy Neurologic: Could not be assessed as restless Psychiatric: Could not be assessed Results & Data Vital Signs (Past 12 Hours) Vital Signs Temp Pulse Pulse Resp BP BP Pulse Ox 09/20/24 11:04 36.2 C L 75 22 91/60 L 93 09/20/24 10:47 36.5 C 72 20 106/55 L 93 09/20/24 10:08 106/55 L 09/20/24 10:00 77 22 100 09/20/24 09:47 36.5 C 78 22 115/78 09/20/24 09:41 36.3 C L 69 22 115/88 95 09/20/24 09:39 80 23 92 09/20/24 09:37 115/88 09/20/24 09:37 115/88 09/20/24 09:37 115/88 09/20/24 09:27 71 20 100 09/20/24 09:17 36.3 C L 70 20 108/55 L 96 09/20/24 09:09 76 21 97 09/20/24 09:02 36.4 C L 71 22 108/70 97 09/20/24 09:01 108/55 L 09/20/24 09:00 36.3 C L 74 22 112/83 94 09/20/24 08:55 112/59 L 09/20/24 08:51 70 24 85 L 09/20/24 08:42 36.5 C 70 22 104/51 L 95 09/20/24 08:39 77 24 95 09/20/24 08:39 104/51 L 09/20/24 08:39 104/51 L 09/20/24 08:36 74 19 88 L 09/20/24 08:31 100/46 L 09/20/24 08:27 76 19 97 09/20/24 08:15 75 18 98 09/20/24 08:00 09/20/24 08:00 09/20/24 08:00 74 09/20/24 07:39 76 21 94 09/20/24 07:31 114/48 L 09/20/24 07:16 101/48 L 09/20/24 07:14 83 23 97 09/20/24 07:14 83 23 97 09/20/24 07:09 104/59 L 09/20/24 07:09 104/59 L 09/20/24 07:09 104/59 L 09/20/24 07:06 71 21 98 09/20/24 07:03 77 18 99 09/20/24 07:00 36.3 C L 74 22 101/79 94 09/20/24 06:46 99/73 L 09/20/24 06:31 117/57 L 09/20/24 06:16 124/51 L 09/20/24 06:00 101/46 L 09/20/24 06:00 101/46 L 09/20/24 05:45 103/50 L 09/20/24 05:45 103/50 L 09/20/24 05:36 74 18 100 09/20/24 05:30 95/44 L 09/20/24 05:30 69 17 100 09/20/24 05:15 69 17 100 09/20/24 05:15 106/52 L 09/20/24 05:15 106/52 L 09/20/24 05:00 78 17 100 09/20/24 05:00 88/45 L 09/20/24 04:30 93/39 L 09/20/24 04:24 75 17 100 09/20/24 04:21 72 16 100 09/20/24 04:17 36.7 C 09/20/24 04:15 87/46 L 09/20/24 04:15 87/46 L 09/20/24 04:02 92/45 L 09/20/24 03:51 84 17 100 09/20/24 03:50 143/67 H 09/20/24 03:48 69 100 09/20/24 03:39 80 19 98 09/20/24 03:31 106/54 L 09/20/24 03:30 89 18 100 09/20/24 03:16 129/107 H 09/20/24 03:09 94 H 100 09/20/24 03:03 81 15 100 09/20/24 03:01 108/67 09/20/24 03:01 108/67 09/20/24 02:47 111/70 09/20/24 02:45 93 H 98 09/20/24 02:45 90 21 100 09/20/24 02:33 104 H 99 09/20/24 02:15 98 H 20 100 09/20/24 02:15 132/62 09/20/24 02:06 93 H 21 100 09/20/24 02:02 114/63 09/20/24 01:51 71 17 99 09/20/24 01:45 120/59 L 09/20/24 01:33 77 18 100 09/20/24 01:30 120/53 L 09/20/24 01:30 120/53 L 09/20/24 01:30 120/53 L 09/20/24 01:30 120/53 L 09/20/24 01:30 78 17 100 09/20/24 01:15 109/58 L 09/20/24 01:15 109/58 L 09/20/24 01:15 109/58 L 09/20/24 01:15 109/58 L 09/20/24 01:12 71 18 100 09/20/24 01:00 114/50 L 09/20/24 00:57 75 15 100 09/20/24 00:48 70 17 100 09/20/24 00:45 101/57 L 09/20/24 00:45 101/57 L 09/20/24 00:45 101/57 L 09/20/24 00:30 102/54 L 09/20/24 00:30 102/54 L 09/20/24 00:30 102/54 L 09/20/24 00:27 70 16 100 09/20/24 00:00 72 09/20/24 00:00 97/50 L 09/20/24 00:00 97/50 L 09/20/24 00:00 97/50 L 09/20/24 00:00 73 20 100 O2 Del Method O2 Flow Rate FiO2 09/20/24 11:04 09/20/24 10:47 09/20/24 10:08 09/20/24 10:00 09/20/24 09:47 09/20/24 09:41 09/20/24 09:39 09/20/24 09:37 09/20/24 09:37 09/20/24 09:37 09/20/24 09:27 09/20/24 09:17 09/20/24 09:09 09/20/24 09:02 09/20/24 09:01 09/20/24 09:00 09/20/24 08:55 09/20/24 08:51 09/20/24 08:42 09/20/24 08:39 09/20/24 08:39 09/20/24 08:39 09/20/24 08:36 09/20/24 08:31 09/20/24 08:27 09/20/24 08:15 09/20/24 08:00 BiPAP 30 09/20/24 08:00 BiPAP 30 09/20/24 08:00 09/20/24 07:39 09/20/24 07:31 09/20/24 07:16 09/20/24 07:14 30 09/20/24 07:14 BiPAP 30 09/20/24 07:09 09/20/24 07:09 09/20/24 07:09 09/20/24 07:06 09/20/24 07:03 09/20/24 07:00 Room Air, BiPAP 30 09/20/24 06:46 09/20/24 06:31 09/20/24 06:16 09/20/24 06:00 09/20/24 06:00 09/20/24 05:45 09/20/24 05:45 09/20/24 05:36 09/20/24 05:30 09/20/24 05:30 09/20/24 05:15 09/20/24 05:15 09/20/24 05:15 09/20/24 05:00 09/20/24 05:00 09/20/24 04:30 09/20/24 04:24 09/20/24 04:21 09/20/24 04:17 09/20/24 04:15 09/20/24 04:15 09/20/24 04:02 09/20/24 03:51 09/20/24 03:50 09/20/24 03:48 09/20/24 03:39 09/20/24 03:31 09/20/24 03:30 09/20/24 03:16 09/20/24 03:09 09/20/24 03:03 09/20/24 03:01 09/20/24 03:01 09/20/24 02:47 09/20/24 02:45 09/20/24 02:45 30 09/20/24 02:33 09/20/24 02:15 09/20/24 02:15 09/20/24 02:06 09/20/24 02:02 09/20/24 01:51 09/20/24 01:45 09/20/24 01:33 09/20/24 01:30 09/20/24 01:30 09/20/24 01:30 09/20/24 01:30 09/20/24 01:30 09/20/24 01:15 09/20/24 01:15 09/20/24 01:15 09/20/24 01:15 09/20/24 01:12 09/20/24 01:00 09/20/24 00:57 09/20/24 00:48 09/20/24 00:45 09/20/24 00:45 09/20/24 00:45 09/20/24 00:30 09/20/24 00:30 09/20/24 00:30 09/20/24 00:27 09/20/24 00:00 09/20/24 00:00 09/20/24 00:00 09/20/24 00:00 09/20/24 00:00 PG Care Time/CCT Total # of Minutes Spent Total Time Spent with Patient: Total time spent is greater than 50% in coordination of care (as documented) at patient's floor/unit and/or counseling patient: Coding Level of Care Code 90123 SUB INP/OBS CARE 2/35MIN Diagnoses Acute metabolic encephalopathy G93.41 Anemia due to chronic kidney disease N18.9; D63.1 Chronic kidney disease, stage IV (severe) N18.4
[2024-09-20 11:59] LABS: Base Excess VBG -3.4 mEq/L; HCO3 VBG 25 mmol/L; Oxygen Saturation VBG < 60.0 %; PCO2 VBG 63 mmHg (38-50); PO2 VBG 34 mmHg
[2024-09-20] MEDS ORDERED: STAT IV Infusion **Titration per Protocol STA (14:37)
[2024-09-20] MEDS ORDERED: ONDANSETRON INJ 2 MG/ML 2 ML VIAL IV PRN (14:37)
[2024-09-20 14:50] LABS: Hematocrit (blood only) 21.7 % (42.0-52.0); Hemoglobin 6.5 g/dl (14.0-18.0)
[2024-09-20] MEDS: MoRPHine BOLUS from BAG IV PRN (14:57)
[2024-09-20] MEDS: MoRPHine SULF 100 MG/100 ML BAG IV SCH (14:57)
[2024-09-20] MEDS: LORazepam 2 MG/1 ML VIAL IV PRN (15:19)
--- OUTSIDE RECORDS SUMMARY | 2024-09-20 15:28 | External Medical Summary | Summary of Care ---
Author Name Unknown Organization [facility] Address [address] [place] [address] Phone [phone] Care Team Providers [employer] Buyer Name Role Phone Poly Basilio DO, Kenneth Primary Care Provider [phone] Reason for Visit * Reason Onset Date Comments Imaging Records Request 09/15/2024 Encounter Details Date Type Department Care Team (Late st Contact Info) Description 09/15/2024 Telephone Radiology Film File [address] [place] [address] Support, Imaging Radiology [address] [place] [address] Imaging Records Request Allergies No known active allergiesdocumented as of this encounter (statuses as of 09/15/2024) Medications PLAVIX 75 MG PO TABS 1 tablet daily Active Vitron-C 65-125 MG Oral Tablet (Iron-Vitamin C) Take 2 Tablets by mouth in the morning. Active Apixaban 5 MG Oral Tablet (Eliquis) Take 1 Tablet by mouth in the morning and 1 Tablet before bedtime. 60 Tablet 3 3 Active Atorvastatin Calcium 80 MG Oral Tablet (Lipitor) Take 1 Tablet by mouth in the morning. 30 Tablet 3 Active Calcium Carbonate-Vitamin D 600-5 MG-MCG Oral Tablet Take 1 Tablet by mouth in the morning. 3 Active Citalopram Hydrobromide 40 MG Oral Tablet (CeleXA) Take 1 Tablet by mouth in the morning. 3 Active Finasteride 5 MG Oral Tablet (Proscar) Take 1 Tablet by mouth in the morning. 3 Active Mycophenolate Mofetil 500 MG Oral Tablet (CellCept) Take 1 Tablet by mouth in the morning and 1 Tablet before bedtime. Active predniSONE 20 MG Oral Tablet (Deltasone) Take 2 Tablets by mouth in the morning. Active Bumetanide 1 MG Oral Tablet (Bumex) Take 1.5 Tablets by mouth in the morning. 60 Tablet 4 Active documented as of this encounter (statuses as of 09/15/2024) Active Problems Problem Noted Date Diagnosed Date Pneumonia 04/29/2023 Heart failure with acute decompensation, [...] 04/10/2019 HTN (hypertension) 04/10/2019 HLD (hyperlipidemia) 04/10/2019 documented as of this encounter (statuses as of 09/15/2024) Resolved Problems Problem Noted Date Diagnosed Date Resolved Date Acute on chronic respiratory failure with hypoxia 04/29/2023 04/07/2024 ADVANCE DIRECTIVE INFORMATION 06/07/2009 08/11/2024 Overview (06/07/2009): No, Advance Directive brochure offered , patient declined. documented as of this encounter (statuses as of 09/15/2024) Immunizations Name Administration Dates Next Due Pneumococcal Polysaccharide PPV23 (Pneumovax) Seasonal Influenza Vac., MDV, IM, 0.5 mL (Fluzon e) 07/22/2008 TDAP, Age 7 and older, IM (Adacel) 08/08/2024 documented as of this encounter Social History Tobacco Use Types Packs/Day Years Used Date Smoking Tobacco: Former Cigarettes 1 35 Smokeless Tobacco: Current Snuff Alcohol Use Standard Drinks/Week Comments Yes 0 (1 standard drink = 0.6 oz pur e alcohol) Infrequent Personal Safety Answer Date Recorded Do you feel unsafe or have concerns for your saf ety? No 04/05/2024 Do you have concerns for you r family's safety? (Household - for ages 0-17 years) Not on file 04/05/2024 Utilities Answer Date Recorded Do you have trouble paying y our heating, water, or electric bill? No 04/05/2024 Is your family able to pay t he heat, water, or electric bill? (Household - for ages 0-17 years) Not on file 04/05/2024 Does your family have access to good internet? (Household - for ages 0-17 years) Not on file 04/05/2024 Social Connections Answer Date Recorded How often do you feel lonely or isolated from those around you? (Adult - for ages 18 years and over) Not on file 03/25/2024 Transportation Needs Answer Date Record ed Do you have trouble getting a ride to medical visits or work? (Adult - for ages 18 years and over) Not on file 04/05/2024 Does your family have a hard time getting a ride to doctors visits? (Household - for ages 0-17 years) Not on file 04/05/2024 Has lack of transportation k ept you from medical appointments, meetings, work, or from getting things needed for daily living? Check all that apply. No 04/05/2024 Do you (or your family) have trouble finding or paying for a ride (transportation)? (Household - for ages 0-17 years) Not on file 04/05/2024 Housing Stability Answer Date Recorded Do you currently live in a s helter or have no steady place to sleep at night? (Adult - for ages 18 years and over) Not on file 04/05/2024 Do you think you are at risk of becoming homeless? (Adult - for ages 18 years and over) Not on file 04/05/2024 Does your family worry about paying for your home or becoming homeless? (Household - for ages 0-17 years) Not on file 0 04/05/2024 Are you homeless or worried that you might be in the future? No 04/05/2024 Are you (or your family) easton eless or worried that you might be in the future? (Household - for ages 0-17 years) Not on file Food Insecurity Answer Date Recorded Do you need food for this week? No 04/05/2024 Are you able to get enough f ood for your family? (Household - for ages 0-17 years) Not on file 04/05/2024 Does your family need food t his week? (Household - for ages 0-17 years) Not on file 04/05/2024 Do you always have enough fo od for your family? (Household - for ages 0-17 years) Not on file 04/05/2024 Sex and Gender Information Value Date Recorded Sex Assigned at Not on file Legal Sex Male 5:51 AM EST Gender Identity Not on file Sexual Orientation Not on file documented as of this encounter Functional Status * Are you deaf or do you have serious difficulty hearing? Answer Date of Assessment Author No 04/05/2024 1:56 AM Jennifer Lopez RN * Are you blind or do you have serious difficulty seeing, even when wearing glasses? Answer Date of Assessment Author No 04/05/2024 1:56 AM Jennifer Lopez RN * Do you have serious difficulty walking or climbing stairs? (5 years old or older) Answer Date of Assessment Author No 04/05/2024 1:56 AM Jennifer Lopez RN * Do you have difficulty dressing or bathing? (5 years old or older) Answer Date of Assessment Author No 04/05/2024 1:56 AM Jennifer Lopez RN * Because of a physical, mental, or emotional condition, do you have difficulty doing errands alone such as visiting a doctors office or shopping? (15 years old or older) Answer Date of Assessment Author No 04/05/2024 1:56 AM Jennifer Lopez RN documented as of this encounter Mental Status * Because of a physical, mental, or emotional condition, do you have serious difficulty concentrating, remembering, or making decisions? (5 years old or older) Answer Entry Date Author No 04/05/2024 1:56 AM EDT Jennifer Bautista RN documented in this encounter Miscellaneous Notes * Telephone Encounter - Sin Arreaga OSA - 09/15/2024 3:44 PM EST [facility] Pulmonary Medicine department requesting 09.15.24 Chestxray images be pushed through PACS. [place] Authorization to Release on file. Images pushed to [facility] PACS external connection. Associated report(s) not needed. documented in this encounter Plan of Treatment Health Maintenance Due Date Last Done Comments COVID-19 Vaccine (#1) 1950 Depression Screening 1957 Alpha-1 Antitrypsin 1963 Diabetic Foot Exam 1963 Hepatitis C Screening 1963 Zoster Vaccines (1 of 2) 02/07/1964 Diabetic Eye Exam 04/11/2024 04/11/2023 HbA1c 02/11/2025 08/14/2024, 08/0 03/2024, 04/05/2024, Additional history exists Albumin/Creatinine Ratio 05/13/2025 024, 04/11/2023, 02/08/2022 O2 ASSESSMENT COMPLETED IN PAST YEAR FOR COPD 08/08/2025 08/08/2024 GFR 08/14/2025 08/14/2024, 11/0 10/2023, 06/16/2024, Additional history exists DTap/Tdap Vaccines (2 - Td or Tdap) 08/08/2034 08/08/2024 Pneumococcal Vaccine: 65+ Years Completed 10/02/2017, 09/01/2015, 01/31/2014, Additional history exists Influenza Vaccine (FLU shot) Completed 10/2023, 07/17/2023, 10/04/2022, Additional history exists HPV (Gardasil) Vaccine Aged Out No lo nger eligible based on patient's age to complete this topic Hepatitis B Vaccine Aged Out No longe r eligible based on patient's age to complete this topic MENINGOCOCCAL (MENACTRA/MENVEO) Aged Out No longer eligible based on patient's age to complete this topic documented as of this encounter Medical Devices Not on filedocumented as of this encounter Advance Directives * Full Code (Latest Code Status on File) Date Activated Date Inactivated Comments 04/05/2024 1:14 AM 04/07/2024 7:28 PM This order re flects the patients wishes and were consensually agreed upon. Question Answer Comments Discussion of Advance Directives occurred with: Patient * Full Code Date Activated Date Inactivated Comments 04/30/2023 10:11 AM 05/02/2023 6:39 PM This order reflects the patients wishes and were consensually agreed upon. Question Answer Comments Discussion of Advance Directives occurred with: Patient * Limited Code Date Activated Date Inactivated Comments 04/29/2023 3:37 PM 04/30/2023 10:11 AM This order reflects the patients wishes and were consensually agreed upon. Question Answer Comments Discussion of Advance Directives occurred with: Patient Does the patient have a Living Will? No Does the patient have Health Care Power of Attor nancy? No Bag Valve Device? No Intubation? No Cardiac Compressions? Yes Defibrillation? Yes Synchronized Cardioversion? Yes External Pacemaker? Yes Cardiac Drugs? Yes * Full Code Date Activated Date Inactivated Comments 04/10/2019 5:17 PM 04/12/2019 4:18 PM This order ref lects the patients wishes and were consensually agreed upon. Question Answer Comments Discussion of Advance Directives occurred with: Not Discussed Does the patient have a Living Will? No Does the patient have Health Care Power of Attor nancy? No Care Teams Automotive Buyer Relationship Specialty Start Date End Date Vinod Pang Jr., DO [address] [facility] [place] [id number] PCP - General 04/26/09 documented as of this encounter
--- OUTSIDE RECORDS SUMMARY | 2024-09-20 15:28 | External Medical Summary | Continuity of Care Document ---
Author Name Unknown Organization [facility] [employer] Address [address] [place] [address], [place] [address] Phone [phone] Care Team Providers Care Licensed Physical Therapist Name Role Phone Gastroenterology - Gastroenterology Care Team In formation Grant Coordinator Unavailable Fermín Quick MD Care Team Information Receiv er [phone] Rory Hodge Care Team Information Grant Coordinator [phone] Nixon Aden MD Care Team Information Grant Coordinator [phone] Abran Avalos Interven tional Pain Medicine Care Team Information Grant Coordinator [phone] Medardo Trinidad MD Care Team Information Receive r [phone] Sinan Marks MD Care Team Information Receive r [phone] Problems Active Problems Provider Date Chronic kidney [...] Pang JR DO On set: 09/01/2015 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 Clammer (Cu rrent) Use Encounter Vinod Pang JR [...] PA-C Onset: 03/04/2021 Type 2 diabetes mellitus Vinod Pang JR D O Onset: 02/08/2022 Peripheral vascular disorder due [...] 5 Vinod Pang JR DO Onset: 01/22/2024 Morbid obesity Vinod Pang JR DO Onset: 08/14/2024 Atherosclerosis of arteries of the extremities Vinod Pang JR DO Onset: 08/14/2024 Nodule of lung Vinod Pang JR DO Onset: 08/27/2024 Note: Document: 08/08/24 - C T Chest Wo Contrast Social History Type Date Description Comments Sex Unknown Tobacco Use Reviewed: 08/14/24 Never Smoked Cigarette s Tobacco Use Reviewed: 08/14/24 Never Smoked Cigars Tobacco Use Reviewed: 08/14/24 Never Smoked A Pipe Smoking Status Reviewed: 08/14/24 Never Smoked A Pipe Smokeless Tobacco 08/14/2024 Current Smokel ess Tobacco User, Uses 9 [...] NC. 1units Vinod Pang JR, DO 06/13/2024 [id number] Tablets 1 tab by mouth twice a day Unknown 02/28/2024 Sertraline [id number] Tablets Take One (1) Tablet By Mouth Every Day 90tabs F33.1 Vinod Pang JR, DO 02/25/2024 Uisnvcz82089Iplh/ML Solution 40,000 units monthly per nephrology Unknown 11/27/2023 Clopidogrel Xrrdkyytf47zk Tablets take one (1) tablet by mouth every day 30tabs I73.9 Vinod Pang JR, DO 08/24/2021 Lahiscgzywb3yu Tablets take one tablet by mouth once daily 30tabs Vinod Pang JR, DO 11/12/2017 Oxycodone-Acetaminophen 7.5-325mg Tablets take one tablet every 6 h as needed pain--ongoing therapy 60tabs Vinod Pang JR, DO 01/22/2014 Atorvastatin Dkptwpc82ex Tablets take one tablet by mouth at bedtime 90tabs E78.0 Vinod Pang JR, DO E78.00 Ra Vitamin [id number] Tablets ER 1 by mouth every day Unknown Sulfamethoxazole/Trimethop rim BV521-624vc Tablets Mon/Wed/Fri Unknown Pantoprazole Sakugw68gh Tablets DR 1 PO every day Unknown Wbmmvej6zg Tablets 1 by mouth twice a day 60tabs Vinod Pang JR, DO Tzdmfwuytv33fq Tablets 1 tab daily 180tabs K dusty Pang JR, DO Rmdwkfaxaq7hg Tablets 1 PO daily 90tabs Emory Pang JR, DO Fwpwnvvtbf47qk Tablets 1 by mouth twice a day 180tabs Unknown History Medications Rsvcxlvxyx803dw Capsules 1 tid x 10 days from the ER Unknown 08/08/2024 - 08/2024 Medications Administered in Office Medication SIG Qnty Indications Ordering Provider Date Inj, methylpred acetate 1 mgInjection Rodriguez Steven MD 05/27/2024 Injection Methylprednisolone Acetate 20 MGInjection Pierre Costa PA-C 08/06/2023 Rocephin Inj 250 MGInjection E pilar Mcbride MD 09/01/2020 Injection Methylprednisolone Acetate 20 MGInjection Jordan Tao [employer] 11/16/2017 Rocephin Inj 250 MGInjection Vinod Pang JR, DO 02/15/2010 Influ A (H1N1) VaccineInjection Vinod Pang JR, DO 10/21/2009 Immunizations CPT Code Status Date Vaccine Lot # [id number] Given 07/08/2024 Influenza Vac, Split, Preservative Free High Dose Age 65 & > [id number] U-FLU Given 07/17/2023 Influenza,Unspecified 91005 Given 07/17/2023 Influenza Vaccine High Do se 0.5ML Age 65 & > [id number] 02169 Given 10/04/2022 Influenza Vaccine High Do se 0.5ML Age 65 & > [id number] U-FLU Given 10/04/2022 Influenza,Unspecified U-FLU Given 08/11/2020 Influenza,Unspecified 35096 Given 08/11/2020 Influenza Vacci ne-Administered at another facility 75255 Given 08/23/2019 Influenza Vacci ne-Administered at another facility U-FLU Given 08/23/2019 Influenza,Unspecified 05675 Given 07/11/2018 Influenza Vac, Split, Preservative Free High Dose Age 65 & > [id number] 85017 Given 10/02/2017 Influenza Vac, Split, Preservative Free High Dose Age 65 & > [id number] Given 10/02/2017 Pneumococcal Conjugate-Pr evnar 13 44852 Given 08/14/2016 Influenza Virus Vaccine, Quadrivalent, Im Use [id number] 34626 Given 09/01/2015 Influenza Vac, Split, Preservative Free High Dose Age 65 & > [id number] 84082 Given 09/01/2015 Pneumococcal Conjugate-Pr evnar 13 [id number] 69675 Given 07/21/2014 Influenza Vac, Split, Preservative Free High Dose Age 65 & > [id number] U-FLU Given 07/21/2014 Influenza,Unspecified 84282 Given 01/31/2014 Pneumococcal Vaccine/Pneu movax 23 65332 Given 07/17/2013 Influenza Vac, Split, Preservative Free High Dose Age 65 & > [id number] 19862 Given 07/24/2012 Influenza Vac, Split, Preservative Free High Dose Age 65 & > [id number] 65777 Given 07/04/2011 Influenza Vac, Split, Preservative Free High Dose Age 65 & > [id number] 66685 Given 08/16/2010 Pneumococcal Vaccine/Pneu movax 23 [id number] 30413 Given 10/21/2009 Influenza Vac, Split 6 Mo nths And Older [id number] 88013 Given 07/24/2008 Influenza Vac, Split 6 Mo nths And Older U-FLU Given 07/22/2008 Influenza,Unspecified 09145 Given 10/27/2004 Influenza Vac, Split 6 Mo nths And Older 70203 Given 07/22/2004 Pneumococcal Vaccine/Pneu movax 23 [id number] Refused 05/27/2024 Sarscov2 Vaccin e 50 mcg/0.5 ML For Im Use 12 Yrs And Older 16986 Refused 10/19/2023 Sarscov2 Vaccin e 50 mcg/0.5 ML For Im Use 12 Yrs And Older 07454 Refused 04/11/2023 Moderna Sars-Co v-2 (Cov-19) vacc,100 mcg/ 0.5 mL 12Y+EMR Doc Only [id number] Refused 04/11/2023 Shingrix 04626 Refused 07/26/2021 Moderna Sars-Co v-2 (Cov-19) vacc,100 mcg/ 0.5 mL 12Y+EMR Doc Only 08244 Refused 09/28/2020 Shingrix 15890 Refused 09/28/2020 Tdap (Tetanus, diphtheria & acel. pertussis) Adacel or Boostrix 23986 Refused 08/19/2020 Influenza Virus Vaccine, Quadrivalent, Im Use 53737 Refused 07/11/2016 Influenza Vac, Split, Preservative Free High Dose Age 65 & > Vital Signs Date Vital Result Comment 08/14/2024 9:10am BP Systolic 102 mmHg BP Diastolic 62 mmHg Body Temperature 97.4 F Heart Rate 76 /min Respiratory Rate 20 /min Weight 202.00 lb Weight 91.627 kg 07/23/2024 11:05am BP Systolic 120 mmHg BP Diastolic 60 mmHg Body Temperature 98.3 F Heart Rate 94 /min Respiratory Rate 20 /min Weight 205.12 lb Weight 93.045 kg O2 % BldC Oximetry 96 % Results Test Acquired Date Facility Test Result H/L Range Note Lipid 08/14/2024 [facility] [address] [place], [place] [id number] [phone] Cholesterol 158 mg/dL 0-200 1, 2 Triglyceride 104 mg/dL 0-150 3 HDLD 63 mg/dL See Comment 4 Measured LDL 76 mg/dL 0-130 5 Calc VLDL 20.8 mg/dL See Comment 6 Chol/HDL 2.5 RATIO See Comment 7 Non-HDL 95 mg/dL See Comment 8 CBC W/Diff 08/14/2024 [facility] [address] [place], [place] [id number] WBC 6.8 10^3/M3 3.1-9.2 RBC 3.06 10^6/M3 Low 4.00-5.80 HGB 9.9 GR/DL Low 12.5-17.5 HCT 32.0 % Low 37.5-52.5 MCV 104.5 CUMICR High 82.6-95.8 MCH 32.2 PICOGR 27.9-32.9 MCHC 30.8 % Low 32.6-35.4 RDW 18.1 % High 11.4-14.6 PLT 226 10^3/M3 140-350 MPV 7.3 CUMICR 7.0-10.6 %Neut 82.4 % High 40.0-75.0 %Lymph 6.5 % Low 17.0-45.0 %Pine 7.9 % 1.0-11.0 %Eos 2.9 % 0.0-6.0 %Baso 0.3 % 0.0-2.0 #Neut 5.6 10^3/M3 1.5-8.0 #Lymph 0.4 10^3/M3 Low 0.8-3.2 #Pine 0.5 10^3/M3 0.0-0.8 #Eos 0.2 10^3/m3 0.0-0.4 #Baso 0.0 10^3/m3 0.0-0.2 Laboratory test finding 08/14/2024 [facility] [address] [place] [address] [phone] TSH 3.49 uIU/mL 0.50-6.00 FRT4 0.72 ng/dL Low 0.75-1.54 Hba1c 08/14/2024 [facility] [address] [place] [address] A1c 5.20 % 4.70-6.50 9 Comp. Met 08/14/2024 [facility] [address] [place] [address] Glucose 95 mg/dL 70-110 BUN 45 mg/dL High 6-25 Creatinine 3.3 mg/dL Critical high 0.7-1.3 10 Sodium 144 mEq/L 135-145 Potassium 5.2 mEq/L High 3.5-5.0 Chloride 107 mEq/L 95-107 Co-2 26 mEq/L 24-31 Alk Phos 56 IU/L 43-122 Alt(SGPT) 9 IU/L Low 10-40 Ast(Sgot) 10 IU/L 3-42 T.Bilirubin 0.4 mg/dL 0.1-1.3 Calcium 8.5 mg/dL 8.5-10.6 Tot.Protein 5.4 g/dL Low 5.8-8.0 Albumin 3.7 g/dL 3.0-5.2 Globulin 1.7 g/dL Low 2.0-3.4 GFR 19 ML/MIN/1. 73SQM Low >60 BMP 06/16/2024 [facility] [address] [place] [address] Glucose 117 mg/dL High 70-110 BUN 66 mg/dL Critical high 6-25 11 Creatinine 3.0 mg/dL High 0.7-1.3 Sodium 143 mEq/L 135-145 Potassium 4.6 mEq/L 3.5-5.0 Chloride 103 mEq/L 95-107 Co-2 25 mEq/L 24-31 Calcium 9.2 mg/dL 8.5-10.6 GFR 22 ML/MIN/1. 73SQM Low >60 Manual Diff 05/13/2024 [facility] [address] [place] [address] Seg 85 High 45-75 Lymph 7 Low 20-45 Pine 7 0-10 Eosin 1 0-6 Baso 0 0-2 CBC No Diff 05/13/2024 [facility] [address] [place] [address] WBC 9.4 10^3/M3 High 3.1-9.2 RBC 3.27 10^6/M3 Low 4.00-5.80 HGB 11.1 GR/DL Low 12.5-17.5 HCT 33.6 % Low 37.5-52.5 MCV 102.7 CUMICR High 82.6-95.8 MCH 34.0 PICOGR High 27.9-32.9 MCHC 33.1 % 32.6-35.4 RDW 16.0 % High 11.4-14.6 PLT 196 10^3/M3 140-350 MPV 7.7 CUMICR 7.0-10.6 Hba1c 05/13/2024 [facility] [address] [place] [address] A1c 5.90 % 4.70-6.50 12 Laboratory test finding 05/13/2024 [facility] [address] [place] [address] [phone] TSH 2.62 uIU/mL 0.50-6.00 FRT4 0.90 ng/dL 0.75-1.54 Lipid 05/13/2024 [facility] [address] [place] [address] Cholesterol 170 mg/dL 0-200 13 Triglyceride 145 mg/dL 0-150 1 4 HDLD 58 mg/dL See Comment 15 Measured LDL 84 mg/dL 0-130 16 Calc VLDL 29.0 mg/dL See Comment 17 Chol/HDL 2.9 RATIO See Comment 18 Non-HDL 112 mg/dL See Comment 19 Comp. Met 05/13/2024 [facility] [address] [place] [address] Glucose 103 mg/dL 70-110 BUN 62 mg/dL Critical high 6-25 20 Creatinine 3.3 mg/dL Critical high 0.7-1.3 Sodium [...] 2.0-3.4 GFR 19 ML/MIN/1. 73SQM Low >60 Microalbumin Urine 05/13/2024 [facility] [address] [place] [address] Urine Creat 75 mg/dL Comment Microalbumin 17.7 mg/dL High 0.0-1.8 21 ug/mgCREATININE 236 ug/mg High 0-29 Laboratory test finding 04/18/2024 [facility] [address] [place] [address] HGB 12.7 GR/DL 12.5-17.5 22 HCT 37.6 % 37.5-52.5 BMP 04/11/2024 [facility] [address] [place] [address] Glucose 133 mg/dL High 70-110 BUN 63 mg/dL Critical high 6-25 23 Creatinine 3.3 mg/dL Critical high 0.7-1.3 Sodium 143 mEq/L 135-145 Potassium 4.7 mEq/L 3.5-5.0 Chloride 103 mEq/L 95-107 Co-2 26 mEq/L 24-31 Calcium 9.3 mg/dL 8.5-10.6 GFR 19 ML/MIN/1. 73SQM Low >60 Laboratory test finding 04/04/2024 [facility] (In Office Test) HGB Fingerstick 11.4 Laboratory test finding 03/19/2024 [facility] [address] [place], [place] [id number] [phone] HCT 32.7 % Low 37.5-52.5 HGB 11.0 GR/DL Low 12.5-17.5 1 FASTING 2 CHOLESTEROL Less than 200mg/dl Low risk 201-239 mg/dl Borderline risk Equal to or greater 240mg/dl High risk 3 TRIGLYCERIDES Less than 150mg/dl Normal 150-199mg/dl Borderline 200-499mg/dl High Greater than 500mg/dl Very High 4 HDL <40mg/dl Elevated Risk 41-59mg/dl Risk >=60mg/dl Least Risk 5 LDL <100mg/dl Optimal 100-129mg/dl Near Optimal 130-159mg/dl Borderline High 160-189mg/dl High >=190 Very High 6 VLDL Less than 30mg/dl Normal 7 CHOL/HDL <4.0 Optimal 4.0-5.0 Borderline >6.0 High Risk 8 NON-HDL 30mg/dl higher than LDL Target 9 MEAN GLUCOSE IN mg/d L/A1c% POOR CONTROL FAIR CONTROL GOOD CONTROL EXCELLENT CONTROL 210-9 180-8 120-6 330-13 150-7 90-5 300-12 270-11 240-10 10 ------- CRITICAL CREA RESULT VERIFIED, FAXED, AND CALLED 08/14 @ 1632 TO TRACY PFEIFFER. VKD 11 CRITICAL RESULTS LUCI IFIED, FAXED, AND CALLED TO EVAN 06/17/24 AT 1218 SNW 12 MEAN GLUCOSE IN mg/d L/A1c% POOR CONTROL FAIR CONTROL GOOD CONTROL EXCELLENT CONTROL 360- 210-9 180-8 120-6 330-13 150-7 90-5 300-12 270-11 240-10 13 CHOLESTEROL Less than 200mg/dl Low risk 201-239 mg/dl Borderline risk Equal to or greater 240mg/dl High risk 14 TRIGLYCERIDES Less than 150mg/dl Normal 150-199mg/dl Borderline 200-499mg/dl High Greater than 500mg/dl Very High 15 HDL <40mg/dl Elevated Risk 41-59mg/dl Risk >=60mg/dl Least Risk 16 LDL <100mg/dl Optimal 100-129mg/dl Near Optimal 130-159mg/dl Borderline High 160-189mg/dl High >=190 Very High 17 VLDL Less than 30mg/dl Normal 18 CHOL/HDL <4.0 Optimal 4.0-5.0 Borderline >6.0 High Risk 19 NON-HDL 30mg/dl higher than LDL Target 20 BUN/CREA COMMENTS CRITICAL RESULTS VERIFIED, FAXED, AND CALLED TO JESS BOWER@114 05/14/24 ODIN 21 *[facility] [employer] [facility] USES MICROALBUMIN/CREATINE RATIO : *<30 ug/mg CREATININE IS CLASSIFIED NORMAL *30-300 ug/mg CREATININE IS CLASSIFIED CLINICAL MICROALBUMINURIA *>300 ug/mg CREATININE IS CLASSIFIED CLINICAL ALBUMINURIA CLASSIFICATION OF A PATIENT SHOULD BE BASED ON TWO OF THREE ABNORMAL RESULTS COLLECTED WITHIN A 3 TO 6 MONTH TIME FRAME* 22 REPORT FAXED TO DOCT OR, REQUESTED ON REQUISITION.04/21/24 23 CRITICAL RESULTS LUCI IFIED, FAXED, AND CALLED TO merry olivera @ 130pm hjl Procedures Date Code Description Status 08/14/2024 03016 Venipuncture Routine Complet ed 08/14/2024 3078F PVRP Diastolic BP <80 mmHg C ompleted 08/14/2024 3074F PVRP Systolic BP <130 mmHg C ompleted 08/14/2024 G2211 Continuation of care e/m vis it add on Completed 07/25/2024 G9919 SCRN ND Pos ND Prov Of Rec C ompleted 07/23/2024 1111F D/C Medications Reconciled W/Current Medications In Outpt MR Completed 07/21/2024 1111F D/C Medications Reconciled W/Current Medications In Outpt MR Completed 07/08/2024 G0008 Influenza Admin Completed 06/16/2024 1111F D/C Medications Reconciled W/Current Medications In Outpt MR Completed 06/16/2024 75720 Venipuncture Routine Complet ed 05/27/2024 J1010 Inj, methylpred acetate 1 mg Completed 05/13/2024 45857 Venipuncture Routine Complet ed 04/18/2024 97381 Venipuncture Routine Complet ed 04/11/2024 38195 Venipuncture Routine Complet ed 04/11/2024 1111F D/C Medications Reconciled W/Current Medications In Outpt MR Completed 04/08/2024 1111F D/C Medications Reconciled W/Current Medications In Outpt MR Completed 04/04/2024 56784 Electrocardiogram Complete C ompleted 03/19/2024 30673 Venipuncture Routine Complet ed Medical Devices Description No Information Available Encounters Type Date Location Provider Dx Diagnosis Office Visit 09/06/2024 2:13p Kylie Pang JR, DO 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, stage 5 E11.51 Type 2 diabetes w di abetic peripheral angiopath w/o gangrene I48.0 Paroxysmal atrial fi brillation D64.9 Anemia, unspecified Office Visit 08/14/2024 9:30a Kylie Pang JR, DO E11.51 Type 2 diabetes w diabetic peripheral angiopath w/o gangrene E11.59 Type 2 diabetes guido itus with oth circulatory complications I48.0 Paroxysmal atrial fi brillation N18.5 Chronic kidney disea se, stage 5 E78.00 Pure hypercholestero lemia, unspecified E03.9 Hypothyroidism, unsp ecified I10 Essential (primary) hypertension E66.01 Morbid (severe) obes ity due to excess calories I70.223 Athscl southern ute arteri es of extrm w rest pain, bilateral legs Z48.02 Encounter for remova l of sutures N25.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arat hyroidism of renal origin E88.810 Metabolic syndrome E88.81 Metabolic syndrome a nd other insulin resistance Office Visit 08/07/2024 2:54p Kylie Pang JR, DO 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, stage 5 E11.51 Type 2 diabetes w di abetic peripheral angiopath w/o gangrene I48.0 Paroxysmal atrial fi brillation Office Visit 07/23/2024 11:15a [facility] Sousa [facility], DO M62.81 Muscle weakness (generalized) R06.02 Shortness of breath Office Visit 07/07/2024 2:02p [facility] Pang JR, DO 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, stage 5 I48.0 Paroxysmal atrial fi brillation D64.9 Anemia, unspecified E11.51 Type 2 diabetes w di abetic peripheral angiopath w/o gangrene Office Visit 06/16/2024 2:00p [facility] Steven MD J44.9 Chronic obstructive pulmonary disease, unspecified N18.5 Chronic kidney disea se, stage 5 I50.22 Chronic systolic (co ngestive) heart failure E87.5 Hyperkalemia R09.02 Hypoxemia T14.8xxD Other injury of unsp ecified body region, subs Office Visit 06/07/2024 4:33p [facility] P[facility] JR, DO E11.51 Type 2 diabetes w diabetic peripheral angiopath w/o gangrene N18.5 Chronic kidney disea se, stage 5 N25.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arat hyroidism of renal origin I48.0 Paroxysmal atrial fi brillation R06.00 Dyspnea, unspecified Office Visit 05/27/2024 11:30a Kylie reyes MD R06.00 Dyspnea, unspecified Office Visit 05/19/2024 4:15p [facility] Kent h, DO S09.301A Unsp injury of right middle and inner ear, init encntr Office Visit 05/13/2024 11:30a [facility] P[facility] JR, DO E11.51 Type 2 diabetes [...] other insulin resistance Office Visit 04/11/2024 2:30p [facility] Pierre rodriguez PA-C I50.22 Chronic systolic (congestive) heart failure J84.9 Interstitial pulmona ry disease, unspecified Office Visit 04/04/2024 1:30p [facility] Loretta Urena PA-C R60.9 Edema, unspecified N18.6 End stage renal dise ase J84.9 Interstitial pulmona ry disease, unspecified Z99.2 Dependence on renal dialysis I42.9 Cardiomyopathy, unsp ecified I48.0 Paroxysmal atrial fi brillation Z99.81 Dependence on supple mental oxygen R06.02 Shortness of breath D64.9 Anemia, unspecified Assessments Date Code Description Provider 09/06/2024 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, stag e 5 Vinod Pang JR, DO 09/06/2024 E11.51 Type 2 diabetes mellitus with diabetic peripheral angiopathy without gangrene Vinod Pang JR, DO 09/06/2024 I48.0 Paroxysmal atrial fibrillati on Vinod Pang JR, DO 09/06/2024 D64.9 Anemia, unspecified Vinod Pang JR, DO 08/14/2024 E11.51 Type 2 diabetes mellitus with diabetic peripheral angiopathy without gangrene Vinod Pang JR, DO 08/14/2024 E11.59 Type 2 diabetes mellitus with other circulatory complications Vinod Pang JR, DO 08/14/2024 I48.0 Paroxysmal atrial fibrillati on Vinod Pang JR, DO 08/14/2024 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, stag e 5 Vinod Pang JR, DO 08/14/2024 E78.00 Pure hypercholesterolemia, u nspecified Vinod Pang JR, DO 08/14/2024 E03.9 Hypothyroidism, unspecified Vinod Pang JR, DO 08/14/2024 I10 Essential (primary) hyperten lindy Vinod Pang JR, DO 08/14/2024 E66.01 Morbid (severe) obesity due to excess calories Vinod Pang JR, DO 08/14/2024 I70.223 Atherosclerosis of southern ute arteries of extremities with rest pain, bilateral legs Vinodriya Pang JR, DO 08/14/2024 Z48.02 Removal of suture Vinod Ben Pang JR, DO 08/14/2024 N25.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 arathyroidism of renal origin Vinod Pang JR, DO 08/14/2024 E88.810 Metabolic syndrome Vinod Pang JR, DO 08/14/2024 E88.81 Metabolic syndro me and other insulin resistance Vinod Pang JR, DO 08/07/2024 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, stag e 5 Vinod Pang JR, DO 08/07/2024 E11.51 Type 2 diabetes mellitus with diabetic peripheral angiopathy without gangrene Vinod Pang JR, DO 08/07/2024 I48.0 Paroxysmal atrial fibrillati on Vinodriya Pang JR, DO 07/25/2024 Z65.9 Problem related to unspecified psychosocial circumstances Vinod Pang JR, DO 07/25/2024 Z63.79 Other stressful life events affecting family and household Vinod Pang JR, DO 07/23/2024 M62.81 Muscle weakness (generalized ) Lonny Nagel, DO 07/23/2024 R06.02 Shortness of breath Lonny holley, DO 07/08/2024 Z23 Encounter for immunization K dusty Pang JR, DO 07/07/2024 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, stag e 5 Vinod Pang JR, DO 07/07/2024 I48.0 Paroxysmal atrial fibrillati on Vinodriya Pang JR, DO 07/07/2024 D64.9 Anemia, unspecified [...] Metabolic syndro me and other insulin resistance Vinod Pang JR, DO 05/07/2024 E11.51 Type 2 diabetes mellitus with diabetic peripheral angiopathy without gangrene Vinod Pang JR, DO 05/07/2024 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, stag e 5 Vinod Pang JR, DO 05/07/2024 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, stag e 5 Vinod Pang JR, DO 05/07/2024 E11.51 Type 2 diabetes mellitus with diabetic peripheral angiopathy without gangrene Vinod Pang JR, DO 05/07/2024 N25.81 Secondary [...] 04/04/2024 R60.9 Edema, unspecified Loretta P yle, PA-C 04/04/2024 N18.6 End stage renal disease Heat her Ayanna, PA-C 04/04/2024 J84.9 Interstitial pul monary disease, unspecified Loretta Ayanna, PA-C 04/04/2024 Z99.2 Dependence on renal dialysis Loretta Ayanna, PA-C 04/04/2024 I42.9 Cardiomyopathy, unspecified Loretta Ayanna, PA-C 04/04/2024 I48.0 Paroxysmal atrial fibrillati on Loretta Ayanna, PA-C 04/04/2024 Z99.81 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 xygen Loretta Ayanna, PA-C 04/04/2024 R06.02 Shortness of breath Loretta Urena PA-C 04/04/2024 D64.9 Anemia, unspecified Loretta Urena PA-C 03/19/2024 D64.9 Anemia, unspecified Vinod Pang JR, DO 03/19/2024 D64.9 Anemia, unspecified Lab - [facility] Plan of Treatment Future Appointment(s):* 09/15/2024 10:30 am - Lab - [facility] * 11/20/2024 8:30 am - Vinod Pang JR, DO at [facility] 08/14/2024 - Vinod Pang JR, DO* E11.51 Type 2 diabetes mellitus with diabetic peripheral angiopathy without gangrene * E11.59 Type 2 diabetes mellitus with other circulatory complications * I48.0 Paroxysmal atrial fibrillation * 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, stage 5 * E78.00 Pure hypercholesterolemia, unspecified * E03.9 Hypothyroidism, unspecified * I10 Essential (primary) hypertension * E66.01 Morbid (severe) obesity due to excess calories * I70.223 Atherosclerosis of southern ute arteries of extremities with rest pain, bilateral legs * Z48.02 Removal of suture * N25.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arathyroidism of renal origin * E88.810 Metabolic syndrome * E88.81 Metabolic syndrome and other insulin resistance * All* Follow up:* follow-up in three months unless otherwise noted. Functional Status Description No Information Available Mental Status Description No Information Available Referrals Refer to Reason for Referral Status Appt Timothy e Pulmonology 2nd opinion for Lung Specialist ( previously seen by [facility] ) Closed 09/15/2024 Hematology/Oncology Pt not seen in over a year , Heme/Onc requested new referral to resume follow up care. Closed 07/23/2024 [phone]
--- OUTSIDE RECORDS SUMMARY | 2024-09-20 15:28 | External Medical Summary | Summary of Care ---
Author Name Unknown Organization [facility] Address [address] [place] [address] Phone [phone] Care Team Providers Care Documentation Writer Name Role Phone Poly Basilio DO, Kenneth Primary Care Provider [phone] Encounter Details Date Type Department Care Team (Latest Contact Info) Description 09/15/2024 2:00 PM EST - 09/15/2024 11:59 PM [facility] Hospital Encounter Radiology, [address] [address] Arrived Discharge Disposition: Home - Self Care Allergies No known active allergiesdocumented as of this encounter (statuses as of 09/16/2024) Medications PLAVIX 75 MG PO TABS 1 [...] as of this encounter (statuses as of 09/16/2024) Active Problems Problem Noted Date Diagnosed Date [...] as of this encounter (statuses as of 09/16/2024) Resolved Problems Problem Noted Date Diagnosed Date Resolved Date Acute on chronic respiratory failure with hypoxia 04/29/2023 04/07/2024 ADVANCE DIRECTIVE INFORMATION 06/07/2009 08/11/2024 Overview (06/07/2009): No, Advance Directive brochure offered , patient declined. documented as of this encounter (statuses as of 09/16/2024) Immunizations Name Administration Dates Next Due Pneumococcal [...] Entry Date Author No 04/05/2024 1:56 AM Jennifer Lopez RN documented in this encounter Plan of Treatment [...] FOR COPD 08/08/2025 08/08/2024 GFR 08/14/2025 08/14/2024, 1110/2023, 06/16/2024, Additional history exists DTap/Tdap Vaccines (2 [...] Associated Diagnosis Comments XR CHEST 2 VIEWS Routine 09/15/2024 2:12 PM EST Chest pain documented in this encounter Results * XR CHEST 2 VIEWS (09/15/2024 2:12 PM EST) Anatomical Region Laterality Modality Chest Digital Radiogra phy 09/15/2024 2:20 PM EST Impressions 09/15/2024 2:18 PM EST IMPRESSION 1. No compelling radiographic evidence of acute bacterial pneumonia or pulmonary edema. 2. Additional findings as above. Narrative 09/15/2024 2:18 PM EST EXAM XR CHEST 2 VIEWS-09/15/2024 2:12 pm HISTORY Chest pain COMPARISON CT CHEST WO CONTRAST, ACC: [id number], dated 2024-08-08 12:08:48; XR CHEST 1 VIEW, ACC: [id number], dated 2024-08-08 11:52:59; XR CHEST 2 VIEWS, ACC: [id number], dated 2024-04-04 16:55:16; CT ABD_PELVIS WO IV_ORAL CONTRAST, ACC: [id number], dated 2024-08-08 12:08:48 TECHNIQUE Radiography of the chest. XR CHEST 2 VIEWS FINDINGS No acute focal consolidation. No pulmonary edema. No pneumothorax. Small/trace bilateral pleural effusions versus pleural thickening/extrapleural fat thickening. Unremarkable cardiomediastinal silhouette.No acute osseous abnormality.Visualized portions of the upper abdomen are unremarkable. Left chest wall Port-A-Cath with tip overlying expected location of upper brachiocephalic vein. Low lung volumes. Mild basal atelectasis. Procedure Note Julian Catalan MD - 09/15/2024 EXAM XR CHEST 2 VIEWS-09/15/2024 2:12 pm HISTORY Chest pain COMPARISON CT CHEST WO CONTRAST, ACC: [id number], dated 2024-08-08 12:08:48; XR CHEST 1 VIEW, ACC: [id number], dated 2024-08-08 11:52:59; XR CHEST 2 VIEWS, ACC: [id number], dated 2024-04-04 16:55:16; CT ABD_PELVIS WO IV_ORAL CONTRAST, ACC: [id number], d [id number] TECHNIQUE Radiography of the chest. XR CHEST 2 VIEWS FINDINGS No acute focal consolidation. No pulmonary edema. No pneumothorax.Small/trace bilateral pleural effusions versus pleuralthickening/extrapleural fat thickening. Unremarkable cardiomediastinalsilhouette.No acute osseous abnormality.Visualized portions of the upperabdomen are unremarkable. Left chest wall Port-A-Cath with tip overlyingexpected location of upper brachiocephalic vein. Low lung volumes. Mildbasal atelectasis. IMPRESSION IMPRESSION 1. No compelling radiographic evidence of acute bacterial pneumonia orpulmonary edema. 2. Additional findings as above. us Emre Perdomo MD RADIOLOGY ([facility]) F inal Result documented in this encounter Visit Diagnoses Diagnosis Chest pain Chest pain, unspecified documented in this encounter Advance Directives * Full Code [...] Power of Attor nancy? No Care Teams Documentation Writer Relationship Specialty Start Date End Date Vinod Pang Jr., DO [address] [facility] [place] [id number] PCP - General 04/26/09 documented as of this encounter
[2024-09-20 15:41] VITALS: BP 147/92; PULSE 100; RESP 21; O2SAT 62
[2024-09-20] MEDS: GLYCOPYRROLATE 0.2 MG/ML VIAL IV PRN (16:05)
--- NOTE | 2024-09-20 17:03 | Death Pronouncement Note ---
Date of Service September 20, 2024 Pronouncement Note Admission Date September 19, 2024 Preliminary Cause of (1) ARF (acute renal failure): Acute renal failure type: unspecified Qualified Code(s): N17.9 - Acute kidney failure, unspecified (2) Acute metabolic encephalopathy: (3) Acute on chronic respiratory failure with hypoxia and hypercapnia: (4) Anemia: Anemia type: due to chronic kidney disease Chronic kidney disease stage: stage 4 (severe) Qualified Code(s): N18.4 - Chronic kidney disease, stage 4 (severe); D63.1 - Anemia in chronic kidney disease (5) UTI (urinary tract infection): (6) Acute on chronic heart failure with preserved ejection fraction (HFpEF): (7) B-cell lymphoma: 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
--- NOTE | 2024-09-20 17:12 | Death Pronouncement Note ---
Date of Service September 20, 2024 Pronouncement Note Admission Date Admission Date: September 19, 2024 Date and Time of Date of : 09/20/24 Time of : 16:58 PCOD Preliminary cause of : Acute on chronic respiratory failure with hypoxia and hypercapnia Contributing Factors (1) ARF (acute renal failure): (2) Acute metabolic encephalopathy: (3) Acute on chronic heart failure with preserved ejection fraction (HFpEF): (4) Restrictive lung disease: (5) ILD (interstitial lung disease): Summary Additional details: Called to bedside by nursing at 1652 for patient who was pulseless. Arrived at bedside. Patient was pulseless and apneic. No cardiac activity auscultated. No spontaneous respirations. Carotid and radial pulses absent. Pupils fixed and dilated. Time of 1657. Additional Data Confirmation of : no pulse, no respirations, no heart sounds and pupils fixed and dilated Family: at bedside Attending/PCP notified?: Yes Attending physician: Siobhan Steven MD Was code activated?: No Resident Activity Tracking Resident Involvement: Resident Care Provided Care Provided: Adult Hospital Medicine
--- NOTE | 2024-09-23 11:06 | Discharge Summary ---
Date of Service September 23, 2024 Admission HPI Per Admitting Provider Manuel De La Cruz is a 79 year old male who presents to the ER due to altered mental state with hallucinations. Unable to get any history from the patient although he does respond and reports not being in any pain currently. He was recently discharged on September 19 due to acute on chronic heart failure with preserved ejection fraction although trial of diuresis caused KATHY as mostly a right sided heart failure secondary to his interstitial lung disease. He was discharged home after passing PT and OT evaluations. Initially doing ok but the last 2 days getting increasingly confused and having visual hallucinations. He was notably treated for a UTI last admission in addition to a foot infection with Bactrim however subsequent cultures were resistant to this. No known fever, chills or urinary symptoms. Principal Diagnosis Acute on chronic hypoxic hypercapnic respiratory failure Discharge Exam Constitutional: laying motionless in hospital bed HEENT: pupils fixed and dilated CV: no appreciable heart sounds Resp: no chest rise, no breath sounds appreciated Skin: pale, cool to touch Neuro: unresponsive to verbal stimuli and sternal rub Discharge Data Allergies Allergy/AdvReac Type Severity Reaction Status Date / Time No Known Allergies Allergy Verified 09/07/24 16:25 Consultations 09/19/24 10:58 Consult Nephrology Routine 09/19/24 12:29 ED Decision to Admit Stat 09/19/24 12:39 Consult Area Intelligence Technician Routine Ordered Studies 09/19/24 14:28 US point of care ultrasound Routine Hospital Course (1) ARF (acute renal failure): May be somewhat artificially elevated due to recent Bactrim use CT A/P without IV contrast to assess for obstructive cause Significantly azotemic, received dialysis overnight Significant acidotic on VBG, suspect mixed metabolic and respiratory acidosis Likely UTI, continue CTX, await final UCx results (2) Acute metabolic encephalopathy: Suspect metabolic Continue chemical, physical restraints, 1:1 as needed (3) Acute on chronic heart failure with preserved ejection fraction (HFpEF): with PAF continue atorvastatin, coreg, Plavix (4) Restrictive lung disease: see #3 (5) ILD (interstitial lung disease): see #3 Plan DNR/DNI VTE Prophyalxis - deferred to ICU Diet - NPO Disposition - admit to ICU Total Time Total Time Spent Total Time Spent (In Minutes): see attending documentation Discharge Plan Discharge Items Patient Disposition: Other Date/Time: 09/20/24 16:58 Resident Activity Tracking Resident Involvement: Resident Care Provided Care Provided: Adult Hospital Medicine
== END 2024-09-20 17:52 | disposition expired | DRG 189 ==
LOC: ED 07:31 → SUATTDRO 11:29 → 1E 11:29